=== PATIENT | male | born 1960 | race Caucasian/White ===

== ENCOUNTER → 2020-08-19 10:02 | Outpatient (BNVA) | payer MEDICAID, SELFPAY | PROVIDERS: PCP Nurse Practitioner Family; Visit Provider Surgery | DX: E11.621 Type 2 diabetes mellitus with foot ulcer (principal); L97.512 Non-pressure chronic ulcer of other part of right foot with fat layer exposed; I48.91 Unspecified atrial fibrillation; I10 Essential (primary) hypertension; F17.200 Nicotine dependence, unspecified, uncomplicated; L84 Corns and callosities; Z89.429 Acquired absence of other toe(s), unspecified side | CPT/HCPCS: 11042; 99213 ==

== ENCOUNTER 2020-08-30 09:27 | Outpatient (REF) | payer MEDICAID, SELFPAY ==
--- NOTE | 2020-08-30 09:29 | XR_ITS ---
EXAMINATION: XR FOOT, RIGHT CLINICAL INFORMATION: Type 2 diabetes with foot ulcer. COMPARISON: 04/13/2016 and MRI of 04/14/2016 TECHNIQUE: AP, lateral and oblique views of the right foot. FINDINGS: Patient is status post transmetatarsal amputations. There is noted to be some gas within the soft tissue along the lateral plantar aspect of the 5th metatarsal stump. On oblique view, there is question of some cortical erosion, and MRI would be of help in further evaluation of possibility of osteomyelitis. IMPRESSION: Ulceration about the lateral plantar aspect of the right transmetatarsal stump with question of some erosion of the cortex about the distal 5th metatarsal.
== END 2020-08-30 09:28 | disposition home or self-care (01) ==
LOC: HO.XRAY 09:27
PROVIDERS: PCP Nurse Practitioner Family; Visit Provider Surgery
DX: E10.621 Type 1 diabetes mellitus with foot ulcer (principal); L97.412 Non-pressure chronic ulcer of right heel and midfoot with fat layer exposed
CPT/HCPCS: 73630; 99213

== ENCOUNTER → 2020-09-23 10:58 | Outpatient (BNVA) | payer MEDICAID, SELFPAY | PROVIDERS: PCP Nurse Practitioner Family; Visit Provider Surgery | DX: E11.621 Type 2 diabetes mellitus with foot ulcer (principal); L97.412 Non-pressure chronic ulcer of right heel and midfoot with fat layer exposed; L84 Corns and callosities | CPT/HCPCS: 99212 ==

== ENCOUNTER → 2020-10-18 09:59 | Outpatient (BNVA) | payer MEDICAID, SELFPAY | PROVIDERS: PCP Nurse Practitioner Family; Referring Provider Nurse Practitioner Family; Visit Provider Surgery | DX: E10.621 Type 1 diabetes mellitus with foot ulcer (principal); L97.412 Non-pressure chronic ulcer of right heel and midfoot with fat layer exposed | CPT/HCPCS: 99212 ==

== ENCOUNTER → 2020-11-08 10:58 | Outpatient (BNVA) | payer MEDICAID, SELFPAY | PROVIDERS: PCP Nurse Practitioner Family; Visit Provider Surgery | DX: E11.621 Type 2 diabetes mellitus with foot ulcer (principal); L97.412 Non-pressure chronic ulcer of right heel and midfoot with fat layer exposed | CPT/HCPCS: 97597; 99212 ==

== ENCOUNTER → 2020-12-02 10:15 | Outpatient (BNVA) | payer MEDICAID, SELFPAY | PROVIDERS: PCP Nurse Practitioner Family; Visit Provider Surgery | DX: E10.621 Type 1 diabetes mellitus with foot ulcer (principal); L97.412 Non-pressure chronic ulcer of right heel and midfoot with fat layer exposed | CPT/HCPCS: 99212 ==

== ENCOUNTER 2020-12-29 07:02 | Day surgery (SDC) | payer MEDICAID, SELFPAY ==
[2020-12-09 12:06] VITALS: BMI 31.8
--- NOTE | 2020-12-12 13:31 | P.CONAN_ITS ---
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 scheduled for 12/29/20 [facility] Past Medical History Medical History (Updated 12/12/20 @ 13:33 by Liya Metz) Atrial fibrillation Diabetes Diabetic ulcer of right foot Hx of hepatitis Hypertension Family History Family History Father History of lung cancer Mother History of diabetes mellitus Surgical History Surgical History History of amputation of toe (~10/21/13) History of amputation of toe (~08/18/14) History of lipoma History of transmetatarsal amputation of foot (~09/2016) Social History Social History (Updated 12/09/20 @ 15:27 by Kamilah Gonzalez) Alcohol intake: never Smoking Status: Current every day smoker Cigarettes Per Day: 3 Years Smoked: 46 Smoked in Last 30 Days: Yes Substance Use Type: Crack/Cocaine and Former Substance User Last Used Substance Other:: 3-4 years ago tox screen positive cocaine 08/08/20-on methadone Advance Directives: No Advance Directives Information Provided: No Advance Directives on File: No Meds Allergies Allergy/AdvReac Type Severity Reaction Status Date / Time furosemide [Lasix] Allergy Intermediate Hives Verified 12/09/20 12:02 levofloxacin [Levaquin] Allergy Unknown Gastrointestinal Verified 12/09/20 12:02 Upset metronidazole [Flagyl] Allergy Unknown Unknown Verified 12/09/20 12:02 latex Allergy Rash Verified 12/09/20 12:02 contrast dye Allergy Unknown rash, hives Uncoded 12/09/20 12:02 Home Medications Medication Instructions Recorded Confirmed Type diltiazem HCl 120 mg capsule,24 120 mg PO QAM 08/11/20 12/09/20 History hr,extended release insulin glargine 100 unit/mL 40 unit SUBCUT BID 08/11/20 12/09/20 History subcutaneous solution methadone 5 mg tablet 80 mg PO DAILY tab 08/11/20 12/09/20 History amitriptyline 50 mg PO BEDTIME 12/09/20 12/09/20 History glipizide 2.5 mg PO DAILY 12/09/20 12/09/20 History Exam Exam Date and Time: December 12, 2020 1331 Height,Weight and Vital Signs: Height 6 ft Weight 106.594 kg Narrative Narrative: EKG 08/08/20 Normal sinus rhythm Moderate voltage criteria for LVH, may be normal variant Borderline ECG When compared with ECG of 04-JAN-2019 20:44, No significant change was found Assessment and Plan Assessment Anesthesia Assessment: Chart Reviewed
--- NOTE | 2020-12-28 09:10 | P.CONAN_ITS ---
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 PMFSH Active Problems Active Problems: All Active Problems (Updated 12/12/20 @ 13:33 by Liya Metz) Diabetic ulcer of right foot (Acute) Diabetes (Acute) Hypertension (Acute) Atrial fibrillation (Acute) Past Medical History Medical History Atrial fibrillation Diabetes Diabetic ulcer of right foot Hx of hepatitis Hypertension Family History Family History Father History of lung cancer Mother History of diabetes mellitus Surgical History Surgical History History of amputation of toe (~10/21/13) History of amputation of toe (~08/18/14) History of lipoma History of transmetatarsal amputation of foot (~09/2016) Social History Social History Alcohol intake: never Smoking Status: Current every day smoker Cigarettes Per Day: 3 Years Smoked: 46 Smoked in Last 30 Days: Yes Substance Use Type: Crack/Cocaine and Former Substance User Last Used Substance Other:: 3-4 years ago tox screen positive cocaine 08/08/20-on methadone Advance Directives: No Advance Directives Information Provided: No Advance Directives on File: No Meds Allergies Allergy/AdvReac Type Severity Reaction Status Date / Time furosemide [Lasix] Allergy Intermediate Hives Verified 12/09/20 12:02 levofloxacin [Levaquin] Allergy Unknown Gastrointestinal Verified 12/09/20 12:02 Upset metronidazole [Flagyl] Allergy Unknown Unknown Verified 12/09/20 12:02 latex Allergy Rash Verified 12/09/20 12:02 contrast dye Allergy Unknown rash, hives Uncoded 12/09/20 12:02 Home Medications Medication Instructions Recorded Confirmed Last Taken Type diltiazem HCl 120 mg capsule,24 120 mg PO QAM 08/11/20 12/09/20 12/29/20 History hr,extended release insulin glargine 100 unit/mL 40 unit SUBCUT BID 08/11/20 12/09/20 Unknown History subcutaneous solution methadone 5 mg tablet 80 mg PO DAILY tab 08/11/20 12/09/20 12/29/20 History amitriptyline 50 mg PO BEDTIME 12/09/20 12/09/20 Unknown History glipizide 2.5 mg PO DAILY 12/09/20 12/09/20 Unknown History Exam Exam Date and Time: December 28, 2020 0910 Height,Weight and Vital Signs: Height 6 ft Weight 106.594 kg Narrative Narrative: EKG 08/08/20 Normal sinus rhythm Moderate voltage criteria for LVH, may be normal variant Borderline ECG When compared with ECG of 04-JAN-2019 20:44, No significant change was found Assessment and Plan Assessment Anesthesia Assessment: Chart Reviewed Documented by User: Sami Rendon 12/29/20 09:04 [facility] Past Medical History Medical History Atrial fibrillation Diabetes Diabetic ulcer of right foot Hx of hepatitis Hypertension Family History Family History Father History of lung cancer Mother History of diabetes mellitus Family history of problems with anesthesia: No Surgical History Surgical History History of amputation of toe (~10/21/13) History of amputation of toe (~08/18/14) History of lipoma History of transmetatarsal amputation of foot (~09/2016) History of Problems with Anesthesia: No Social History Social History Alcohol intake: never Smoking Status: Current every day smoker Cigarettes Per Day: 3 Years Smoked: 46 Smoked in Last 30 Days: Yes Substance Use Type: Crack/Cocaine and Former Substance User Last Used Substance Other:: 3-4 years ago tox screen positive cocaine 08/08/20-on methadone Advance Directives: No Advance Directives Information Provided: No Advance Directives on File: No Meds Allergies Allergy/AdvReac Type Severity Reaction Status Date / Time furosemide [Lasix] Allergy Intermediate Hives Verified 12/09/20 12:02 levofloxacin [Levaquin] Allergy Unknown Gastrointestinal Verified 12/09/20 12:02 Upset metronidazole [Flagyl] Allergy Unknown Unknown Verified 12/09/20 12:02 latex Allergy Rash Verified 12/09/20 12:02 contrast dye Allergy Unknown rash, hives Uncoded 12/09/20 12:02 Home Medications Medication Instructions Recorded Confirmed Last Taken Type diltiazem HCl 120 mg capsule,24 120 mg PO QAM 08/11/20 12/09/20 12/29/20 History hr,extended release insulin glargine 100 unit/mL 40 unit SUBCUT BID 08/11/20 12/09/20 Unknown History subcutaneous solution methadone 5 mg tablet 80 mg PO DAILY tab 08/11/20 12/09/20 12/29/20 History amitriptyline 50 mg PO BEDTIME 12/09/20 12/09/20 Unknown History glipizide 2.5 mg PO DAILY 12/09/20 12/09/20 Unknown History Exam Airway Mallampati Class: II TM Dist: >3cm Neck ROM: Full Denture: Upper Partial: Lower Heart: ok Lungs: ok Assessment and Plan Assessment Anesthesia Assessment: Anesthesia Plan Discussed and Chart Reviewed (Urine pos for cocaine. High POC. Gave 15u Lispro. Pt. Counseled re risks. Also took 80mg methadone this morning.) Final Anesthetic Review NPO: Yes ASA Class: III Final Preanesthetic Review: No Changes in Pt Med Stat, Meds/Allgs Chart Reviewed, Consent Obtained/Reviewed and Anes Risks/Benef Reviewed Patient Risk: Intermediate Procedure Risk: Low Anesthetic Plan Anesthetic Plan: MAC: and Agree w/ Assess. and Plan Disposition: Standard PACU and Extended PACU
[2020-12-29 07:40] VITALS: BP 152/74; PULSE 84; RESP 16; TEMP 36.6; O2SAT 96
[2020-12-29 07:42] LABS: Glucose, Whole Blood 354 mg/dL (60-115)
--- NOTE | 2020-12-29 08:02 | PC.NURSE ---
Patient states that there are no toes on his right foot. patient is here for a revision. no limb disposal consent needed.
[2020-12-29 08:11] LABS: Amphetamine Screen Urine Not Detected (Not Detect); Barbiturates, Urine Not Detected (Not Detect); Benzodiazepines Screen Urine Not Detected (Not Detect); Cannabinoid Screen Urine Not Detected (Not Detect); Cocaine Screen Urine POSITIVE (Not Detect); Opiate Screen Urine Not Detected (Not Detect); Phencyclidine Screen Urine Not Detected (Not Detect)
[2020-12-29] MEDS: Insulin Lispro 100 UNIT/ML 3 ML VIAL 15 UNIT SUBCUT (08:13)
--- NOTE | 2020-12-29 08:16 | PC.NURSE ---
Patients blood sugar 354. Dr. Rendon notified. Lispro 15 units SQ given as ordered.
[2020-12-29 08:37] LABS: Anion Gap 10 (12-20); Blood Urea Nitrogen 16 mg/dL (9-16); Calcium 8.5 mg/dL (8.4-10.2); Carbon Dioxide 30 mmol/L (22-29); Chloride 95 mmol/L (96-108); Creatinine Clr Calc Pharmacy 110.2; Estimated Glomerular Filt Rate > 60; Glucose Fasting 368 mg/dL (60-99); Potassium 4.4 mmol/L (3.3-5.1); Sodium 131 mmol/L (135-145)
--- NOTE | 2020-12-29 08:42 | PC.NURSE ---
Anesthesia notified of Urine Tox positive for cocaine. Okay to proceed with surgery per Dr. Rendon and Dr. Haines
[2020-12-29] MEDS: Lactated Ringers 1,000 ML 100 ML IVCONT (08:46)
--- NOTE | 2020-12-29 08:51 | MHC.SHP ---
Pre-Procedural Eval Section A The patient is an INPATIENT: No Changes since office visit: Yes Patient answered all questions; No Cold of Flu in the past 2 weeks, No New Medical Problems and No Changes in Medication The History & Physical has been completed within 30 days and I have reviewed it.: Yes Section B Chief Complaint: Diabetic ulcer of right foot Allergies: Allergies Allergy/AdvReac Type Severity Reaction Status Date / Time furosemide [Lasix] Allergy Intermediate Hives Verified 12/09/20 12:02 levofloxacin [Levaquin] Allergy Unknown Gastrointestinal Verified 12/09/20 12:02 Upset metronidazole [Flagyl] Allergy Unknown Unknown Verified 12/09/20 12:02 latex Allergy Rash Verified 12/09/20 12:02 contrast dye Allergy Unknown rash, hives Uncoded 12/09/20 12:02 Plan Diagnosis/Plan: Unchanged I have reviewed the history and physical and performed a pertinent physical examination on my patient. No changes have occurred unless specified.
--- NOTE | 2020-12-29 08:58 | PC.NURSE ---
Anesthesia notified of Sodium of 131. Okay to proceed with surgery.
--- NOTE | 2020-12-29 10:09 | P.OP_ITS ---
Operative Note Operative Note Date of Service: 12/29/20 Narrative: Preoperative diagnosis: Diabetic foot ulcer, status post transmetatarsal amputation right foot Postoperative diagnosis: Same Procedure: Revision of transmetatarsal amputation right foot Surgeon: Maynor Cannon MD Chief Radiologic Technologist: Anesthesia: Mac Indications for procedure: 60-year-old male with a long history of diabetes mellitus and history of bilateral foot ulcer status post bilateral transmetatarsal amputations now presenting with a persistent ulcer of the right foot with possible osteomyelitis involving the 5th metatarsal. He presents today for revision of the right transmetatarsal amputation. Operative findings patient was found to have an area of abnormal 5th metatarsal at the distal portion found at the base of the ulcer were. The ulcer is located on the plantar surface and measured approximately 3 cm in diameter. This was excised in the underlying bone amputated. Specimen: Debrided skin and subcutaneous tissue and bone right foot ulcer; bone culture 5th metatarsal Estimated blood loss: 20 mL Complications: None Procedure details: Patient was brought to the OR placed in a supine position. Monitored anesthesia was provided. The patient's right foot was prepped with Betadine and draped in a sterile fashion. A surgical time-out was called and the consent confirmed. Patient received preoperative antibiotics. Local anesthesia consisting of 0.5% Sensorcaine mixed with 1% lidocaine plain was administered as a digital block to the 5th and 4th metatarsal. An elliptical incision to include the plantar ulcer over the 5th metatarsal was then created using a 15 blade. This was carried out through subcutaneous tissue up to the metatarsal. The skin and subcutaneous tissue was excised. Fifth metatarsal was then mobilized from the surrounding scar tissue. A periosteal elevator used to free the surrounding connective tissue. A bone cutter was then used to divide the 5th metatarsal in the proximal portion. Rongeur was then used to further debride bone fragments further proximally. A portion of this metatarsal was sent for bone culture. Wounds were then checked for hemostasis and then irrigated thoroughly with saline solution. Skin edges were then reapproximated using interrupted 2 0 Polysorb sutures. Skin was then closed using interrupted 2 0 nylon sutures in a mattress formation. Sterile dressings were then applied including Xeroform, fluff gauze, Kerlix, and Quentin bandage. The patient tolerated the procedure well was transferred to PACU in stable condition.
[2020-12-29 10:12] VITALS: BP 145/78; PULSE 76; RESP 18; TEMP 35.9; O2SAT 97
[2020-12-29 10:20] LABS: Glucose, Whole Blood 193 mg/dL (60-115)
[2020-12-29 10:27] VITALS: BP 143/81; PULSE 80; RESP 18; TEMP 36; O2SAT 98
== END 2020-12-29 10:50 | disposition home or self-care (01) ==
PROVIDERS: Nurse Practitioner; PCP Nurse Practitioner Family; Visit Provider Surgery
PROC: (CPT 28805; principal; 2020-12-29 09:10)
DX: E11.621 Type 2 diabetes mellitus with foot ulcer (principal); L97.414 Non-pressure chronic ulcer of right heel and midfoot with necrosis of bone; Z89.421 Acquired absence of other right toe(s); Z79.4 Long term (current) use of insulin
CPT/HCPCS: 28805; 11044; 36415; 80048; 80307; 82947; 87071; 87077; 87147; 87186; 87205; 88304; 88305; 88311; J0690; J2250; J3010

== ENCOUNTER → 2021-01-04 10:01 | Outpatient (BNVA) | payer MEDICAID, SELFPAY | PROVIDERS: PCP Nurse Practitioner Family; Visit Provider Surgery | DX: E10.621 Type 1 diabetes mellitus with foot ulcer (principal); L97.412 Non-pressure chronic ulcer of right heel and midfoot with fat layer exposed | CPT/HCPCS: 99212 ==

== ENCOUNTER → 2021-01-17 10:58 | Outpatient (BNVA) | payer MEDICAID, SELFPAY | PROVIDERS: PCP Nurse Practitioner Family; Visit Provider Surgery | DX: E10.621 Type 1 diabetes mellitus with foot ulcer (principal); L97.412 Non-pressure chronic ulcer of right heel and midfoot with fat layer exposed | CPT/HCPCS: 99212 ==

== ENCOUNTER → 2021-02-08 09:59 | Outpatient (BNVA) | payer MEDICAID, SELFPAY | PROVIDERS: PCP Nurse Practitioner Family; Visit Provider Surgery | DX: E10.621 Type 1 diabetes mellitus with foot ulcer (principal); L97.412 Non-pressure chronic ulcer of right heel and midfoot with fat layer exposed | CPT/HCPCS: 99212 ==

== ENCOUNTER → 2021-02-28 08:57 | Outpatient (BNVA) | payer MEDICAID, SELFPAY | PROVIDERS: PCP Nurse Practitioner Family; Visit Provider Surgery | DX: E10.621 Type 1 diabetes mellitus with foot ulcer (principal); L97.412 Non-pressure chronic ulcer of right heel and midfoot with fat layer exposed | CPT/HCPCS: 99212 ==

== ENCOUNTER → 2021-03-21 11:03 | Outpatient (BNVA) | payer MEDICAID, SELFPAY | PROVIDERS: PCP Nurse Practitioner Family; Visit Provider Surgery | DX: E10.621 Type 1 diabetes mellitus with foot ulcer (principal); L97.412 Non-pressure chronic ulcer of right heel and midfoot with fat layer exposed | CPT/HCPCS: 99212 ==

== ENCOUNTER → 2021-04-20 10:00 | Outpatient (BNVA) | payer MEDICAID, SELFPAY | PROVIDERS: PCP Nurse Practitioner Family; Visit Provider Surgery | DX: E10.621 Type 1 diabetes mellitus with foot ulcer (principal); L97.412 Non-pressure chronic ulcer of right heel and midfoot with fat layer exposed; L72.0 Epidermal cyst | CPT/HCPCS: 11055; 99212 ==

== ENCOUNTER → 2021-06-01 09:46 | Outpatient (BNVA) | payer MEDICAID, SELFPAY | PROVIDERS: PCP Nurse Practitioner Family; Referring Provider Nurse Practitioner Family; Visit Provider Surgery | DX: Z47.81 Encounter for orthopedic aftercare following surgical amputation (principal); E10.621 Type 1 diabetes mellitus with foot ulcer; L97.412 Non-pressure chronic ulcer of right heel and midfoot with fat layer exposed; L72.0 Epidermal cyst; L84 Corns and callosities | CPT/HCPCS: 11305; 99212 ==

== ENCOUNTER → 2021-07-04 10:23 | Outpatient (BNVA) | payer MEDICAID, SELFPAY | PROVIDERS: PCP Nurse Practitioner Family; Referring Provider Nurse Practitioner Family; Visit Provider Surgery | DX: Z47.81 Encounter for orthopedic aftercare following surgical amputation (principal); Z89.421 Acquired absence of other right toe(s); E10.621 Type 1 diabetes mellitus with foot ulcer; L97.412 Non-pressure chronic ulcer of right heel and midfoot with fat layer exposed; L84 Corns and callosities | CPT/HCPCS: 99212 ==

== ENCOUNTER → 2021-09-01 11:12 | Outpatient (BNVA) | payer MEDICAID, SELFPAY | PROVIDERS: PCP Nurse Practitioner Family; Visit Provider Surgery | DX: E11.621 Type 2 diabetes mellitus with foot ulcer (principal); L97.412 Non-pressure chronic ulcer of right heel and midfoot with fat layer exposed; E11.65 Type 2 diabetes mellitus with hyperglycemia; I10 Essential (primary) hypertension; F17.210 Nicotine dependence, cigarettes, uncomplicated; F14.10 Cocaine abuse, uncomplicated; Z89.421 Acquired absence of other right toe(s); Z88.8 Allergy status to other drugs, medicaments and biological substances; Z91.041 Radiographic dye allergy status; Z91.040 Latex allergy status | CPT/HCPCS: 99212 ==

== ENCOUNTER → 2021-10-24 09:57 | Outpatient (BNVA) | payer MEDICAID, SELFPAY | PROVIDERS: PCP Nurse Practitioner Family; Visit Provider Surgery | DX: Z47.81 Encounter for orthopedic aftercare following surgical amputation (principal); E10.621 Type 1 diabetes mellitus with foot ulcer; L97.412 Non-pressure chronic ulcer of right heel and midfoot with fat layer exposed; Z89.422 Acquired absence of other left toe(s); Z89.421 Acquired absence of other right toe(s) | CPT/HCPCS: 99212 ==

== ENCOUNTER → 2021-12-19 10:05 | Outpatient (BNVA) | payer MEDICAID, SELFPAY | PROVIDERS: PCP Nurse Practitioner Family; Visit Provider Physician Assistant Surgical | DX: E11.621 Type 2 diabetes mellitus with foot ulcer (principal); L97.412 Non-pressure chronic ulcer of right heel and midfoot with fat layer exposed; Z89.432 Acquired absence of left foot; Z89.431 Acquired absence of right foot | CPT/HCPCS: 99212 ==

== ENCOUNTER → 2022-03-08 11:00 | Outpatient (BNVA) | payer MEDICAID, SELFPAY | PROVIDERS: PCP Nurse Practitioner Family; Visit Provider Surgery | DX: E11.621 Type 2 diabetes mellitus with foot ulcer (principal); L97.412 Non-pressure chronic ulcer of right heel and midfoot with fat layer exposed; Z89.432 Acquired absence of left foot; Z89.431 Acquired absence of right foot | CPT/HCPCS: 97597; 99212 ==

== ENCOUNTER → 2022-04-17 12:57 | Outpatient (BNVA) | payer MEDICAID, SELFPAY | PROVIDERS: PCP Nurse Practitioner Family; Visit Provider Surgery | DX: E10.621 Type 1 diabetes mellitus with foot ulcer (principal); L97.412 Non-pressure chronic ulcer of right heel and midfoot with fat layer exposed; Z89.421 Acquired absence of other right toe(s); L84 Corns and callosities | CPT/HCPCS: 99212 ==

== ENCOUNTER → 2022-05-15 13:52 | Outpatient (BNVA) | payer MEDICAID, SELFPAY | PROVIDERS: PCP Nurse Practitioner Family; Visit Provider Surgery | DX: E10.621 Type 1 diabetes mellitus with foot ulcer (principal); L97.412 Non-pressure chronic ulcer of right heel and midfoot with fat layer exposed | CPT/HCPCS: 99212 ==

== ENCOUNTER 2022-06-06 14:35 | Outpatient (REF) | payer MEDICAID, SELFPAY ==
[2022-06-06 16:11] LABS: Blood Urea Nitrogen 19 mg/dL (9-16); Estimated Glomerular Filt Rate > 60
== END 2022-06-06 14:36 | disposition home or self-care (01) ==
LOC: HO.CT 14:35
PROVIDERS: PCP Nurse Practitioner Family; Visit Provider Surgery
DX: R60.0 Localized edema (principal); Z89.439 Acquired absence of unspecified foot
CPT/HCPCS: 36415; 82565; 84520

== ENCOUNTER → 2022-08-09 12:56 | Outpatient (BNVA) | payer MEDICAID, SELFPAY | PROVIDERS: PCP Nurse Practitioner Family; Visit Provider Surgery | DX: E10.621 Type 1 diabetes mellitus with foot ulcer (principal); L97.412 Non-pressure chronic ulcer of right heel and midfoot with fat layer exposed; Z89.421 Acquired absence of other right toe(s) | CPT/HCPCS: 99212 ==

== ENCOUNTER → 2022-11-16 11:00 | Outpatient (BNVA) | payer MEDICAID, SELFPAY | PROVIDERS: PCP Nurse Practitioner Family; Visit Provider Surgery | DX: E11.621 Type 2 diabetes mellitus with foot ulcer (principal); L97.412 Non-pressure chronic ulcer of right heel and midfoot with fat layer exposed; Z89.421 Acquired absence of other right toe(s); Z79.4 Long term (current) use of insulin | CPT/HCPCS: 99212 ==

== ENCOUNTER → 2023-02-07 09:57 | Outpatient (BNVA) | payer MEDICAID, SELFPAY | PROVIDERS: PCP Nurse Practitioner Family; Visit Provider Surgery | DX: E11.621 Type 2 diabetes mellitus with foot ulcer (principal); Z89.431 Acquired absence of right foot | CPT/HCPCS: 97597; 99212 ==

== ENCOUNTER 2023-03-03 16:44 | Inpatient (IN) | payer OTHER, SELFPAY ==
--- NOTE | ~2023-03-03 | XR_ITS ---
EXAMINATION: XR FOOT, RIGHT CLINICAL INFORMATION: Rule out osteomyelitis COMPARISON: Previous x-ray August 2020 TECHNIQUE: AP, lateral, and oblique views of the right foot. FINDINGS: There are postsurgical changes from transmetatarsal amputation. There is a large focus of air is seen in the plantar soft tissues adjacent to the base of the metatarsal bones and. There is a bone irregular and question bone loss seen in this region questionable for osteomyelitis. Some of these changes may be overestimated due to overlying soft tissue air. There are degenerative changes of the midfoot. There are small calcaneal spare spurs. No fracture or dislocation. XR/XR foot RT min 3V IMPRESSION: Large air collection in the plantar soft tissues and question adjacent osteomyelitis of the plantar foot.
[2023-03-03 17:17] VITALS: BP 166/72; PULSE 100; RESP 18; TEMP 37.7; O2SAT 96; BMI 26.9
--- NOTE | 2023-03-03 17:20 | ECG_ITS ---
Test Reason : PAIN Blood Pressure : / mmHG Vent. Rate : 090 BPM Atrial Rate : 090 BPM P-R Int : 160 ms QRS Dur : 080 ms QT Int : 352 ms P-R-T Axes : 037 018 036 degrees QTc Int : 430 ms Normal sinus rhythm Normal ECG When compared with ECG of 08-AUG-2020 10:50, No significant change was found Referred By: Gordon Medina Electronically Signed By:Rusty Simpson
--- NOTE | 2023-03-03 17:21 | ED_ITS ---
HPI - General Adult General Chief complaint: Wound/Laceration <Gordon Medina - Last Filed: 03/03/23 17:23> Stated complaint: diabetic/gangrene right foot <Gordon Medina - Last Filed: 03/03/23 17:23> Time Seen by Provider: 03/03/23 18:07 <Gordon Mdeina - Last Filed: 03/03/23 17:23> Source: patient <MORA Hanna - Last Filed: 03/04/23 00:20> Mode of arrival: ambulatory <MORA Hanna - Last Filed: 03/04/23 00:20> Limitations: no limitations <MORA Hanna Last Filed: 03/04/23 00:20> History of Present Illness HPI narrative: 62-year-old male with history of diabetes and RIght transmetatarsal amputation presents to ED for infected wounds of transmetatarsal right foot and also right leg redness and swelling. Patient states foul odor from wounds on transmetatarsal foot. Patient states no fever or chills patient denies any recent trauma <MORA Hanna - Last Filed: 03/04/23 00:20> Related Data Home medications: Home Medications Medication Instructions Recorded Confirmed diltiazem HCl 120 mg capsule,24 120 mg PO QAM 08/11/20 03/03/23 hr,extended release insulin glargine 100 unit/mL 40 unit subcut BID 08/11/20 03/03/23 subcutaneous solution (Lantus U-100 Insulin) amitriptyline 50 mg tablet 50 mg PO BEDTIME 12/09/20 03/03/23 blood sugar diagnostic (FreeStyle #10 ea 03/08/22 02/07/23 Lite Strips) insulin syringe-needle U-100 1 mL #10 ea 03/08/22 02/07/23 31 gauge x 5/16 (BD Insulin Syringe Ultra-Fine) methadone 5 mg tablet 85 mg PO DAILY 02/07/23 03/03/23 Previous Rx's Medication Instructions Recorded Off loading shoe #1 ea 12/28/20 bismuth tribrom-petrolatum,wh 1 X #200 ea 02/21/21 8 bandage (Xeroform Petrolatum Dressing) adhesive tape 2 X 10 yard #1 ea 06/16/21 gauze bandage 3 X 3 (Band-Aid #25 ea 06/16/21 Gauze Pads) gauze bandage 4 X 2.5 yard #30 ea 06/16/21 (Band-Aid Rolled Gauze) prosthetics (prosthetic) #1 ea 06/16/21 diphenhydramine HCl 25 mg capsule 50 mg PO ONCE sleep #2 caps 07/30/22 (Benadryl) hydrocortisone 2.5 % topical cream 1 appl topical BID PRN skin 08/09/22 irritation #20 grams sulfamethoxazole 800 1 tab PO BID #28 tabs 03/01/23 mg-trimethoprim 160 mg tablet (Bactrim DS) <Gordon Medina - Last Filed: 03/03/23 17:23> Allergies/adverse reactions: Allergies Allergy/AdvReac Type Severity Reaction Status Date / Time furosemide [Lasix] Allergy Intermediate Hives Verified 03/03/23 17:17 levofloxacin [Levaquin] Allergy Unknown Gastrointestinal Verified 03/03/23 17:17 Upset metronidazole [Flagyl] Allergy Unknown Unknown Verified 03/03/23 17:17 latex Allergy Rash Verified 03/03/23 17:17 contrast dye Allergy Unknown rash, hives Uncoded 02/07/23 10:17 <Gordon Medina - Last Filed: 03/03/23 17:23> Review of Systems Review of Systems: Infected foot <MORA Hanna - Last Filed: 03/04/23 00:20> Yes all other systems are reviewed and are negative <MORA Hanna - Last Filed: 03/04/23 00:20> [facility] Past Medical History Medical History: Medical History Atrial fibrillation Diabetes Diabetic ulcer of right foot Hx of hepatitis Hypertension <Gordon Medina - Last Filed: 03/03/23 17:23> Surgical History: Surgical History History of amputation of toe (~10/21/13) History of amputation of toe (~08/18/14) History of lipoma History of transmetatarsal amputation of foot (~09/2016) <Gordon Medina - Last Filed: 03/03/23 17:23> Family History Family History: Family History Father History of lung cancer Mother History of diabetes mellitus <Gordon Medina - Last Filed: 03/03/23 17:23> Social History Social History: Social History Alcohol intake: never Patient Tobacco Use Status: Never used Tobacco Cigarettes Per Day: 3 Years Smoked: 46 Smoked in Last 30 Days: Yes Substance Use Type: Crack/Cocaine and Former Substance User Advance Directives: No Advance Directives Information Provided: Yes <Gordon Medina - Last Filed: 03/03/23 17:23> Physical Exam ED Vital Signs: Vital Signs - 24 hr 03/03/23 17:17 03/03/23 20:13 03/03/23 22:40 Temperature 99.8 F 99.7 F Pulse Rate 100 88 87 Respiratory Rate 18 16 Blood Pressure 166/72 H 191/86 H 157/66 H Pulse Oximetry 96 97 98 Oxygen Delivery Method Room Air Room Air BMI result Body Mass Index 26.9 <Gordon Medina - Last Filed: 03/03/23 17:23> Vital Signs - 24 hr 03/03/23 17:17 03/03/23 20:13 03/03/23 22:40 Temperature 99.8 F 99.7 F Pulse Rate 100 88 87 Respiratory Rate 18 16 Blood Pressure 166/72 H 191/86 H 157/66 H Pulse Oximetry 96 97 98 Oxygen Delivery Method Room Air Room Air BMI result Body Mass Index 26.9 <MORA Hanna - Last Filed: 03/04/23 00:20> Const General: cooperative, healthy appearing, comfortable and no acute distress <MORA Hanna - Last Filed: 03/04/23 00:20> Orientation/consciousness: oriented to person, oriented to place, oriented to time and patient oriented x3 <MORA Hanna - Last Filed: 03/04/23 00:20> HENMT Head: Yes normal to inspection, Yes No palpable skull fracture present, Yes normocephalic, Yes atraumatic and No abrasion <MORA Hanna - Last Filed: 03/04/23 00:20> Eyes General: appearance normal, both eyes and all related structures <Timbo Robert, PA Hattie Last Filed: 03/04/23 00:20> Neck Neck: Yes normal visual inspection, Yes full ROM, Yes no lymphadenopathy, Yes no meningeal signs, Yes trachea midline, Yes supple, No anterior neck swelling and No tender <Timbo Robert, PA Hattie Last Filed: 03/04/23 00:20> Chest Chest palpation & inspection: normal inspection of the chest and normal palpation of entire chest wall <Timbo Robert, MORA Last Filed: 03/04/23 00:20> Resp Effort & Inspection: normal respiratory effort and able to speak in complete sentences <Timbo Roebrt, PA Hattie Filed: 03/04/23 00:20> Auscultation: clear to auscultation bilaterally <Timbo Robert, PA Filed: 03/04/23 00:20> Cardio Jugular venous distension: no JVD <Timbo Robert, PA Hattie Filed: 03/04/23 00:20> Heart sounds: S1 normal heart sound present and S2 normal heart sound present <Timbo Robert, MORA Filed: 03/04/23 00:20> GI Inspection: Yes normal to inspection and No abdominal wall ecchymosis <Timbo Robert, PA Hattie Filed: 03/04/23 00:20> Palpation (GI): Soft to palpation, not firm, nontender, no guarding and not rigid <Timbo Robert, PA Last Filed: 03/04/23 00:20> General: No CVA tenderness and Yes no CVA tenderness <Timbo Robert, MORA Last Filed: 03/04/23 00:20> Back/Spine/Pelvis Back: no CVA tenderness, No CVA tenderness and No back tenderness <Timbo Robert, PA Filed: 03/04/23 00:20> Skin General skin exam: no rashes or lesions noted and elasticity normal <Timbo Robert, PA Filed: 03/04/23 00:20> Neuro General: oriented to person, oriented to place, oriented to time, patient oriented x3, gait normal, tone normal, moves all extremities, Normal light touch and pain sensation, no meningeal signs, no focal motor deficits, CN's II-XI intact bilaterally and normal sensation to monofilament <MORA Hanna - Last Filed: 03/04/23 00:20> Extrem Other: Right leg cellulitis with infected transmetatarsal wound. <MORA Hanna - Last Filed: 03/04/23 00:20> General: Yes normal to inspection and Yes full ROM <MORA Hanna - Last Filed: 03/04/23 00:20> Psych Appearance: grossly normal, well kempt and not disheveled <MORA Hanna - Last Filed: 03/04/23 00:20> Course Course Course Narrative: 62-year-old male presents for evaluation of right foot wound. Patient has diabetes has a history of nonhealing wounds. He has erythema extending up to his right lower leg. Patient reports he has had discussions with Dr. Cannon about possible amputation of the foot. Plan for labs including blood cultures. ESR, CRP will also be added on. X-ray to evaluate for osteomyelitis. I added on coags and a type and screen in case the decision is made to have any amputation done. Vitals stable on arrival. <Gordon Medina - Last Filed: 03/03/23 17:23> Reevaluation(s) Reevaluation #1: Patient has a white count [id number]. Zosyn ordered. Lactic acid normal. X-ray shows possible osteomyelitis. Also states large air and plantar aspect of foot. Spoke with Dr. Cannon of surgery who performed the surgery and he was informed of patient's history, physical exam, and diagnostics. Was inpatient x- ray results and foot. Did not bleed with necrotizing fasciitis and states patient could be admitted to medicine floor <MORA Hanna - Last Filed: 03/04/23 00:20> Medications Administered Generic Name Dose Route Start Last Admin Trade Name Freq PRN Reason Stop Dose Admin Amitriptyline HCl 50 mg 03/03/23 22:45 03/03/23 23:00 Amitriptyline Hcl 50 Mg Tablet PO 50 mg BEDTIME LYNNETTE Administration Vancomycin HCl 2,000 mg in 500 mls @ 250 mls/hr 03/03/23 22:45 03/03/23 22:52 Vancomycin/Ns IV 03/04/23 00:44 250 mls/hr ONCE ONE Administration Insulin Glargine 30 unit 03/03/23 22:30 03/03/23 23:00 Insulin Glargine,Hum.Rec.Anlog 100 Unit/Ml 10 Ml Vial SUBCUT Not Given BID LYNNETTE Discontinued Medications Generic Name Dose Route Start Last Admin Trade Name Freq PRN Reason Stop Dose Admin Piperacillin Sod/Tazobactam 50 mls @ 100 mls/hr 03/03/23 18:11 03/03/23 20:35 Sod 3.375 gm/ Sodium Chloride IV 03/03/23 18:40 Infused ONCE ONE Infusion <Gordon Medina - Last Filed: 03/03/23 17:23> Medications Administered Generic Name Dose Route Start Last Admin Trade Name Freq PRN Reason Stop Dose Admin Amitriptyline HCl 50 mg 03/03/23 22:45 03/03/23 23:00 Amitriptyline Hcl 50 Mg Tablet PO 50 mg BEDTIME LYNNETTE Administration Vancomycin HCl 2,000 mg in 500 mls @ 250 mls/hr 03/03/23 22:45 03/03/23 22:52 Vancomycin/Ns IV 03/04/23 00:44 250 mls/hr ONCE ONE Administration Insulin Glargine 30 unit 03/03/23 22:30 03/03/23 23:00 Insulin Glargine,Hum.Rec.Anlog 100 Unit/Ml 10 Ml Vial SUBCUT Not Given BID LYNNETTE Discontinued Medications Generic Name Dose Route Start Last Admin Trade Name Freq PRN Reason Stop Dose Admin Piperacillin Sod/Tazobactam 50 mls @ 100 mls/hr 03/03/23 18:11 03/03/23 20:35 Sod 3.375 gm/ Sodium Chloride IV 03/03/23 18:40 Infused ONCE ONE Infusion <MORA Hanna - Last Filed: 03/04/23 00:20> Medical Decision Making Medical Decision Making MDM Narrative: 82-year-old male with infected transmetatarsal foot with right leg cell ulitis. X-ray shows foot osteomyelitis. Patient given antibiotics. White count 80455. Patient not in distress. Patient is not toxic appearing. <MORA Hanna - Last Filed: 03/04/23 00:20> Differential Diagnosis Differential Diagnoses: The differential diagnosis associated with the presentation includes (Osteomyelitis, cellulitis, sepsis,) <MORA Hanna - Last Filed: 03/04/23 00:20> Admission/Observation Consideration of admission/observation: Escalation of care including admission/observation considered <MORA Hanna - Last Filed: 03/04/23 00:20> Consult Healthcare Provider Management of the patient was discussed with: Pediatric Radiologist (Dr. Cannon of surgery who does not believe patient has necrotizing fascititis. ) <MORA Hanna - Last Filed: 03/04/23 00:20> Dr. Cannon recommends admit to medicine and MRI in the morning and will follow up as consult service <MORA Hanna - Last Filed: 03/04/23 00:20> Lab Data MDM Lab Attestation statement: I reviewed the patient's lab results. <MORA Hanna - Last Filed: 03/04/23 00:20> Result Diagrams: 03/03/23 17:41 03/03/23 17:41 <Gordon Medina - Last Filed: 03/03/23 17:23> Labs: Lab Results 03/03/23 03/03/23 03/03/23 Range/Units 17:41 17:41 17:41 WBC 20.6 H (4.8-10.8) X10*3/uL RBC 3.60 L (4.60-5.80) X10*6/uL Hgb 9.1 L (14.0-18.0) g/dl Hct 29.1 L (42.0-52.0) % MCV 80.8 (80.0-98.0) fL MCH 25.3 L (27.0-33.0) pg MCHC 31.3 (31.0-36.0) g/dl RDW 14.0 (11.0-16.0) % Plt Count 413 H (160-400) X10*3/uL MPV 9.9 (9.4-12.4) fL Immature Gran % (Auto) 0.7 H (0.0-0.4) % Neut % (Auto) 79.6 H (45-73) % Lymph % (Auto) 10.1 L (20-40) % Mcculloch % (Auto) 7.4 (2-11) % Eos % (Auto) 2.0 (0-4) % Baso % (Auto) 0.2 (0-2) % Lymph # (Auto) 2.1 (1.2-4.9) X10*3/uL Mcculloch # (Auto) 1.5 H (0.1-1.2) X10*3/uL Eos # (Auto) 0.4 (0.0-0.4) X10*3/uL Baso # (Auto) 0.0 (0.0-0.2) X10*3/uL Abs Immat Gran (auto) 0.15 H (0.00-0.03) X10*3/uL Absolute Neuts (auto) 16.4 H (2.0-8.3) x10*3/uL Absolute Nucleated RBC 0.000 (0.0-0.012) X10*3/uL Nucleated RBC % (auto) 0.0 (0.0-0.2) /100WBC Smear Tech's Comments VERIFIED ESR 108 H (0-15) MM/HR PT 16.8 H (10.0-13.1) SEC INR 1.4 H (0.9-1.1) APTT 35.0 (26.0-36.4) SEC Sodium (135-145) mmol/L Potassium (3.3-5.1) mmol/L Chloride (96-108) mmol/L Carbon Dioxide (22-29) mmol/L Anion Gap (12-20) BUN (9-16) mg/dL Creatinine (0.5-1.4) mg/dL Estim Creat Clear Calc Estimated GFR Random Glucose (60-115) mg/dL Lactic Acid (0.5-2.0) mmol/L Calcium (8.4-10.2) mg/dL Total Bilirubin (0.0-1.0) mg/dL AST (5-37) U/L ALT (0-40) U/L Alkaline Phosphatase (39-117) U/L C-Reactive Protein (< or = 0.50) mg/dL Total Protein (6.5-8.0) g/dL Albumin (3.5-5.0) g/dL Lipase (8-78) U/L COVID-19 (CANDACE) (Negative) COVID-19 Clin Com Blood Type Antibody Screen 03/03/23 03/03/23 03/03/23 Range/Units 17:41 17:41 17:41 WBC (4.8-10.8) X10*3/uL RBC (4.60-5.80) X10*6/uL Hgb (14.0-18.0) g/dl Hct (42.0-52.0) % MCV (80.0-98.0) fL MCH (27.0-33.0) pg MCHC (31.0-36.0) g/dl RDW (11.0-16.0) % Plt Count (160-400) X10*3/uL MPV (9.4-12.4) fL Immature Gran % (Auto) (0.0-0.4) % Neut % (Auto) (45-73) % Lymph % (Auto) (20-40) % Mcculloch % (Auto) (2-11) % Eos % (Auto) (0-4) % Baso % (Auto) (0-2) % Lymph # (Auto) (1.2-4.9) X10*3/uL Mcculloch # (Auto) (0.1-1.2) X10*3/uL Eos # (Auto) (0.0-0.4) X10*3/uL Baso # (Auto) (0.0-0.2) X10*3/uL Abs Immat Gran (auto) (0.00-0.03) X10*3/uL Absolute Neuts (auto) (2.0-8.3) x10*3/uL Absolute Nucleated RBC (0.0-0.012) X10*3/uL Nucleated RBC % (auto) (0.0-0.2) /100WBC Smear Tech's Comments ESR (0-15) MM/HR PT (10.0-13.1) SEC INR (0.9-1.1) APTT (26.0-36.4) SEC Sodium 133 L (135-145) mmol/L Potassium 5.0 (3.3-5.1) mmol/L Chloride 98 (96-108) mmol/L Carbon Dioxide 27 (22-29) mmol/L Anion Gap 13 (12-20) BUN 17 H (9-16) mg/dL Creatinine 1.07 (0.5-1.4) mg/dL Estim Creat Clear Calc 84.2 Estimated GFR > 60 Random Glucose 146 H (60-115) mg/dL Lactic Acid (0.5-2.0) mmol/L Calcium 8.7 (8.4-10.2) mg/dL Total Bilirubin 0.3 (0.0-1.0) mg/dL AST 16 (5-37) U/L ALT 17 (0-40) U/L Alkaline Phosphatase 92 (39-117) U/L C-Reactive Protein 19.47 H (< or = 0.50) mg/dL Total Protein 7.7 (6.5-8.0) g/dL Albumin 3.1 L (3.5-5.0) g/dL Lipase 6 L (8-78) U/L COVID-19 (CANDACE) Negative (Negative) COVID-19 Clin Com See Note Blood Type O Positive Antibody Screen NEGATIVE 03/03/23 Range/Units 17:41 WBC (4.8-10.8) X10*3/uL RBC (4.60-5.80) X10*6/uL Hgb (14.0-18.0) g/dl Hct (42.0-52.0) % MCV (80.0-98.0) fL MCH (27.0-33.0) pg MCHC (31.0-36.0) g/dl RDW (11.0-16.0) % Plt Count (160-400) X10*3/uL MPV (9.4-12.4) fL Immature Gran % (Auto) (0.0-0.4) % Neut % (Auto) (45-73) % Lymph % (Auto) (20-40) % Mcculloch % (Auto) (2-11) % Eos % (Auto) (0-4) % Baso % (Auto) (0-2) % Lymph # (Auto) (1.2-4.9) X10*3/uL Mcculloch # (Auto) (0.1-1.2) X10*3/uL Eos # (Auto) (0.0-0.4) X10*3/uL Baso # (Auto) (0.0-0.2) X10*3/uL Abs Immat Gran (auto) (0.00-0.03) X10*3/uL Absolute Neuts (auto) (2.0-8.3) x10*3/uL Absolute Nucleated RBC (0.0-0.012) X10*3/uL Nucleated RBC % (auto) (0.0-0.2) /100WBC Smear Tech's Comments ESR (0-15) MM/HR PT (10.0-13.1) SEC INR (0.9-1.1) APTT (26.0-36.4) SEC Sodium (135-145) mmol/L Potassium (3.3-5.1) mmol/L Chloride (96-108) mmol/L Carbon Dioxide (22-29) mmol/L Anion Gap (12-20) BUN (9-16) mg/dL Creatinine (0.5-1.4) mg/dL Estim Creat Clear Calc Estimated GFR Random Glucose (60-115) mg/dL Lactic Acid 1.6 (0.5-2.0) mmol/L Calcium (8.4-10.2) mg/dL Total Bilirubin (0.0-1.0) mg/dL AST (5-37) U/L ALT (0-40) U/L Alkaline Phosphatase (39-117) U/L C-Reactive Protein (< or = 0.50) mg/dL Total Protein (6.5-8.0) g/dL Albumin (3.5-5.0) g/dL Lipase (8-78) U/L COVID-19 (CANDACE) (Negative) COVID-19 Clin Com Blood Type Antibody Screen <Gordon Medina - Last Filed: 03/03/23 17:23> Lab Results 03/03/23 03/03/23 03/03/23 Range/Units 17:41 17:41 17:41 WBC 20.6 H (4.8-10.8) X10*3/uL RBC 3.60 L (4.60-5.80) X10*6/uL Hgb 9.1 L (14.0-18.0) g/dl Hct 29.1 L (42.0-52.0) % MCV 80.8 (80.0-98.0) fL MCH 25.3 L (27.0-33.0) pg MCHC 31.3 (31.0-36.0) g/dl RDW 14.0 (11.0-16.0) % Plt Count 413 H (160-400) X10*3/uL MPV 9.9 (9.4-12.4) fL Immature Gran % (Auto) 0.7 H (0.0-0.4) % Neut % (Auto) 79.6 H (45-73) % Lymph % (Auto) 10.1 L (20-40) % Mcculloch % (Auto) 7.4 (2-11) % Eos % (Auto) 2.0 (0-4) % Baso % (Auto) 0.2 (0-2) % Lymph # (Auto) 2.1 (1.2-4.9) X10*3/uL Mcculloch # (Auto) 1.5 H (0.1-1.2) X10*3/uL Eos # (Auto) 0.4 (0.0-0.4) X10*3/uL Baso # (Auto) 0.0 (0.0-0.2) X10*3/uL Abs Immat Gran (auto) 0.15 H (0.00-0.03) X10*3/uL Absolute Neuts (auto) 16.4 H (2.0-8.3) x10*3/uL Absolute Nucleated RBC 0.000 (0.0-0.012) X10*3/uL Nucleated RBC % (auto) 0.0 (0.0-0.2) /100WBC Smear Tech's Comments VERIFIED ESR 108 H (0-15) MM/HR PT 16.8 H (10.0-13.1) SEC INR 1.4 H (0.9-1.1) APTT 35.0 (26.0-36.4) SEC Sodium (135-145) mmol/L Potassium (3.3-5.1) mmol/L Chloride (96-108) mmol/L Carbon Dioxide (22-29) mmol/L Anion Gap (12-20) BUN (9-16) mg/dL Creatinine (0.5-1.4) mg/dL Estim Creat Clear Calc Estimated GFR Random Glucose (60-115) mg/dL Lactic Acid (0.5-2.0) mmol/L Calcium (8.4-10.2) mg/dL Total Bilirubin (0.0-1.0) mg/dL AST (5-37) U/L ALT (0-40) U/L Alkaline Phosphatase (39-117) U/L C-Reactive Protein (< or = 0.50) mg/dL Total Protein (6.5-8.0) g/dL Albumin (3.5-5.0) g/dL Lipase (8-78) U/L COVID-19 (CANDACE) (Negative) COVID-19 Clin Com Blood Type Antibody Screen 03/03/23 03/03/23 03/03/23 Range/Units 17:41 17:41 17:41 WBC (4.8-10.8) X10*3/uL RBC (4.60-5.80) X10*6/uL Hgb (14.0-18.0) g/dl Hct (42.0-52.0) % MCV (80.0-98.0) fL MCH (27.0-33.0) pg MCHC (31.0-36.0) g/dl RDW (11.0-16.0) % Plt Count (160-400) X10*3/uL MPV (9.4-12.4) fL Immature Gran % (Auto) (0.0-0.4) % Neut % (Auto) (45-73) % Lymph % (Auto) (20-40) % Mcculloch % (Auto) (2-11) % Eos % (Auto) (0-4) % Baso % (Auto) (0-2) % Lymph # (Auto) (1.2-4.9) X10*3/uL Mcculloch # (Auto) (0.1-1.2) X10*3/uL Eos # (Auto) (0.0-0.4) X10*3/uL Baso # (Auto) (0.0-0.2) X10*3/uL Abs Immat Gran (auto) (0.00-0.03) X10*3/uL Absolute Neuts (auto) (2.0-8.3) x10*3/uL Absolute Nucleated RBC (0.0-0.012) X10*3/uL Nucleated RBC % (auto) (0.0-0.2) /100WBC Smear Tech's Comments ESR (0-15) MM/HR PT (10.0-13.1) SEC INR (0.9-1.1) APTT (26.0-36.4) SEC Sodium 133 L (135-145) mmol/L Potassium 5.0 (3.3-5.1) mmol/L Chloride 98 (96-108) mmol/L Carbon Dioxide 27 (22-29) mmol/L Anion Gap 13 (12-20) BUN 17 H (9-16) mg/dL Creatinine 1.07 (0.5-1.4) mg/dL Estim Creat Clear Calc 84.2 Estimated GFR > 60 Random Glucose 146 H (60-115) mg/dL Lactic Acid (0.5-2.0) mmol/L Calcium 8.7 (8.4-10.2) mg/dL Total Bilirubin 0.3 (0.0-1.0) mg/dL AST 16 (5-37) U/L ALT 17 (0-40) U/L Alkaline Phosphatase 92 (39-117) U/L C-Reactive Protein 19.47 H (< or = 0.50) mg/dL Total Protein 7.7 (6.5-8.0) g/dL Albumin 3.1 L (3.5-5.0) g/dL Lipase 6 L (8-78) U/L COVID-19 (CANDACE) Negative (Negative) COVID-19 Clin Com See Note Blood Type O Positive Antibody Screen NEGATIVE 03/03/23 Range/Units 17:41 WBC (4.8-10.8) X10*3/uL RBC (4.60-5.80) X10*6/uL Hgb (14.0-18.0) g/dl Hct (42.0-52.0) % MCV (80.0-98.0) fL MCH (27.0-33.0) pg MCHC (31.0-36.0) g/dl RDW (11.0-16.0) % Plt Count (160-400) X10*3/uL MPV (9.4-12.4) fL Immature Gran % (Auto) (0.0-0.4) % Neut % (Auto) (45-73) % Lymph % (Auto) (20-40) % Mcculloch % (Auto) (2-11) % Eos % (Auto) (0-4) % Baso % (Auto) (0-2) % Lymph # (Auto) (1.2-4.9) X10*3/uL Mcculloch # (Auto) (0.1-1.2) X10*3/uL Eos # (Auto) (0.0-0.4) X10*3/uL Baso # (Auto) (0.0-0.2) X10*3/uL Abs Immat Gran (auto) (0.00-0.03) X10*3/uL Absolute Neuts (auto) (2.0-8.3) x10*3/uL Absolute Nucleated RBC (0.0-0.012) X10*3/uL Nucleated RBC % (auto) (0.0-0.2) /100WBC Smear Tech's Comments ESR (0-15) MM/HR PT (10.0-13.1) SEC INR (0.9-1.1) APTT (26.0-36.4) SEC Sodium (135-145) mmol/L Potassium (3.3-5.1) mmol/L Chloride (96-108) mmol/L Carbon Dioxide (22-29) mmol/L Anion Gap (12-20) BUN (9-16) mg/dL Creatinine (0.5-1.4) mg/dL Estim Creat Clear Calc Estimated GFR Random Glucose (60-115) mg/dL Lactic Acid 1.6 (0.5-2.0) mmol/L Calcium (8.4-10.2) mg/dL Total Bilirubin (0.0-1.0) mg/dL AST (5-37) U/L ALT (0-40) U/L Alkaline Phosphatase (39-117) U/L C-Reactive Protein (< or = 0.50) mg/dL Total Protein (6.5-8.0) g/dL Albumin (3.5-5.0) g/dL Lipase (8-78) U/L COVID-19 (CANDACE) (Negative) COVID-19 Clin Com Blood Type Antibody Screen <MORA Hanna - Last Filed: 03/04/23 00:20> Independent Interpretation I performed an independent interpretation of an: Plain X-Ray <MORA Hanna - Last Filed: 03/04/23 00:20> Radiology Impression Discussion of test interpretation with radiology: I have reviewed the radiologist's reading. <MORA Hanna - Last Filed: 03/04/23 00:20> External Record Review External record reviewed: Inpatient record <MORA Hanna - Last Filed: 03/04/23 00:20> Discharge Plan Discharge Clinical Impression: Osteomyelitis <Gordon Medina - Last Filed: 03/03/23 17:23> Patient Disposition: Admitted As Inpatient <Gordon Medina - Last Filed: 03/03/23 17:23>
[2023-03-03 17:52] LABS: Basophils Percent Auto 0.2 % (0-2); Eosinophils Absolute Auto 0.4 X10*3/uL (0.0-0.4); Hematocrit 29.1 % (42.0-52.0); Hemoglobin 9.1 g/dl (14.0-18.0); Imm Gran Abs Auto 0.15 X10*3/uL (0.00-0.03); Imm Gran Pct Auto 0.7 % (0.0-0.4); Lymphocytes Absolute Auto 2.1 X10*3/uL (1.2-4.9); Lymphocytes Percent Auto 10.1 % (20-40); MANUAL DIFF FLAG SCAN; Mean Corpuscular HGB Conc 31.3 g/dl (31.0-36.0); Mean Corpuscular Hemoglobin 25.3 pg (27.0-33.0); Mean Corpuscular Volume 80.8 fL (80.0-98.0); Mean Platelet Volume 9.9 fL (9.4-12.4); Monocytes Absolute Auto 1.5 X10*3/uL (0.1-1.2); Monocytes Percent Auto 7.4 % (2-11); Neutrophils Absolute Auto 16.4 x10*3/uL (2.0-8.3); Neutrophils Percent Auto 79.6 % (45-73); Platelet Count 413 X10*3/uL (160-400); SCAN SMEAR FLAG 1; White Blood Count 20.6 X10*3/uL (4.8-10.8)
[2023-03-03 18:04] LABS: INTERNATIONAL NORM RATIO 1.4 (0.9-1.1); Prothrombin Time 16.8 SEC (10.0-13.1)
[2023-03-03 18:05] LABS: COVID-19 Test Negative (Negative); IDNOW Serial# BCCEAD1C
[2023-03-03 18:06] LABS: Lactic Acid 1.6 mmol/L (0.5-2.0)
[2023-03-03 18:09] LABS: Alanine Aminotransferase 17 U/L (0-40); Albumin Level 3.1 g/dL (3.5-5.0); Alkaline Phosphatase 92 U/L (39-117); Anion Gap 13 (12-20); Aspartate Amino Transferase 16 U/L (5-37); Bilirubin Total 0.3 mg/dL (0.0-1.0); Blood Urea Nitrogen 17 mg/dL (9-16); C Reactive Protein 19.47 mg/dL (< or = 0.50); Calcium 8.7 mg/dL (8.4-10.2); Carbon Dioxide 27 mmol/L (22-29); Chloride 98 mmol/L (96-108); Creatinine Clr Calc Pharmacy 84.2; Estimated Glomerular Filt Rate > 60; Glucose Random 146 mg/dL (60-115); Lipase 6 U/L (8-78); Sodium 133 mmol/L (135-145); Total Protein 7.7 g/dL (6.5-8.0)
[2023-03-03 18:12] LABS: SLIDE REVIEW VERIFIED
[2023-03-03 18:26] LABS: Erythrocyte Sedimentation Rate 108 MM/HR (0-15)
[2023-03-03] MEDS: Piperacillin Sodium/Tazobactam 3.375 GM in 0.9 % Sodium Chloride 50 ML IV (18:39)
--- NOTE | 2023-03-03 18:45 | PC.NURSE ---
Patient arrived ambulatory with R foot complaints, pt noted to have previous toe/partial foot amputations. He reports he is homeless and on his feet a lot during the day. IV placed, Antx given per order.
[2023-03-03 20:13] VITALS: BP 191/86; PULSE 88; TEMP 37.6; O2SAT 97
--- NOTE | 2023-03-03 20:54 | PC.NURSE ---
I resumed care of the pt at 1900. Pt is resting quietly in bed at this time, A&Ox4, GCS 15, with cool, dry skin. Pt did ambulate to the bathroom without assistance. Pt was steady on his feet. Pt is reporting 6/10 pain in the right foot. No other complaints at this time.
--- NOTE | 2023-03-03 22:25 | PM.IMHP ---
History of Present Illness Date of Service: 03/03/23 Chief Complaint: malodorous DFU 62M PMH DM, htn, mood disorder, paroxysmal vs lone afib (not on AC), hcv (treated 2009), opiate dependence, presented with malodorous right DFU. patient has history of bilateral TMAs for DFU/OM, reporting several days of worsening odor coming from right heel DFU. denies fever, chills chest pain, sob. in ED found to have leukocytosis, elevated CRP, xray with Large air collection in the plantar soft tissues and question adjacent osteomyelitis of the plantar foot. Review of Systems Review of Systems: Yes all other systems are reviewed and are negative [facility] Medical History Atrial fibrillation Diabetes Diabetic ulcer of right foot Hx of hepatitis Hypertension Family History Father History of lung cancer Mother History of diabetes mellitus Surgical History History of amputation of toe (~10/21/13) History of amputation of toe (~08/18/14) History of lipoma History of transmetatarsal amputation of foot (~09/2016) Social History Alcohol intake: never Cigarettes Per Day: 3 Years Smoked: 46 Smoked in Last 30 Days: Yes Substance Use Type: Crack/Cocaine and Former Substance User Advance Directives: No Advance Directives Information Provided: Yes Meds Allergies Allergy/AdvReac Type Severity Reaction Status Date / Time furosemide [Lasix] Allergy Intermediate Hives Verified 03/03/23 17:17 levofloxacin [Levaquin] Allergy Unknown Gastrointestinal Verified 03/03/23 17:17 Upset metronidazole [Flagyl] Allergy Unknown Unknown Verified 03/03/23 17:17 latex Allergy Rash Verified 03/03/23 17:17 contrast dye Allergy Unknown rash, hives Uncoded 02/07/23 10:17 Active Medications: Current Medications Vancomycin HCl 1,000 mg/ (Sodium Chloride) 270 mls @ 270 mls/hr IV Q12H [facility] Piperacillin Sod/Tazobactam (Sod 3.375 gm/ Sodium Chloride) 50 mls @ 100 mls/hr IV Q8H [facility] Pharmacy Consult (Consult Rx Perform Med Rec) 1 each MISCELLANE ONCE PRN PRN Reason: Consult order Pharmacy Consult (Consult Rx Vancomycin Dosing) 1 each MISCELLANE DAILY PRN PRN Reason: Consult order Home Medications Medication Instructions Recorded Confirmed Last Taken Type diltiazem HCl 120 mg capsule,24 120 mg PO QAM 08/11/20 02/07/23 12/29/20 History hr,extended release insulin glargine 100 unit/mL 40 unit subcut BID 08/11/20 02/07/23 Unknown History subcutaneous solution (Lantus U-100 Insulin) amitriptyline 50 mg tablet 50 mg PO BEDTIME 12/09/20 02/07/23 Unknown History blood sugar diagnostic (FreeStyle #10 ea 03/08/22 02/07/23 Unknown History Lite Strips) insulin syringe-needle U-100 1 mL #10 ea 03/08/22 02/07/23 Unknown History 31 gauge x 5/16 (BD Insulin Syringe Ultra-Fine) methadone 5 mg tablet 85 mg PO DAILY 02/07/23 02/07/23 Unknown History Physical Exam Vital Signs and Narrative: Vital Signs: Last Vital Signs Temp 99.7 F 03/03/23 20:13 Pulse 88 03/03/23 20:13 Resp 18 03/03/23 17:17 BP 191/86 H 03/03/23 20:13 Pulse Ox 97 03/03/23 20:13 O2 Del Method Room Air 03/03/23 20:13 BMI result Body Mass Index 26.9 General: AO X 3, no acute distress Resp: CTA bilateral, no accessory muscles used CVS: S1,S2,RRR GI: soft, non tender, non distended Neuro: motor grossly intact, alert Psych: appropriate affect, appropriate insight rle erythema malodorous right heel dfu, (see pics from ED note) Results Labs 03/03/23 17:41 03/03/23 17:41 Labs: Laboratory Results - last 24 hr 03/03/23 03/03/23 03/03/23 17:41 17:41 17:41 MCV 80.8 MCH 25.3 L MCHC 31.3 RDW 14.0 Plt Count 413 H MPV 9.9 Immature Gran % (Auto) 0.7 H Neut % (Auto) 79.6 H Lymph % (Auto) 10.1 L [place] % (Auto) 7.4 Eos % (Auto) 2.0 Baso % (Auto) 0.2 Lymph # (Auto) 2.1 [place] # (Auto) 1.5 H Eos # (Auto) 0.4 Baso # (Auto) 0.0 Abs Immat Gran (auto) 0.15 H Absolute Neuts (auto) 16.4 H Absolute Nucleated RBC 0.000 Nucleated RBC % (auto) 0.0 Smear Tech's Comments VERIFIED ESR 108 H PT 16.8 H INR 1.4 H APTT 35.0 Anion Gap Estim Creat Clear Calc Estimated GFR Random Glucose Lactic Acid Calcium Total Bilirubin AST ALT Alkaline Phosphatase C-Reactive Protein Total Protein Albumin Lipase COVID-19 ([facility]) COVID-19 Clin Com Blood Type Antibody Screen 03/03/23 03/03/23 03/03/23 17:41 17:41 17:41 MCV MCH MCHC RDW Plt Count MPV Immature Gran % (Auto) Neut % (Auto) Lymph % (Auto) [place] % (Auto) Eos % (Auto) Baso % (Auto) Lymph # (Auto) [place] # (Auto) Eos # (Auto) Baso # (Auto) Abs Immat Gran (auto) Absolute Neuts (auto) Absolute Nucleated RBC Nucleated RBC % (auto) Smear Tech's Comments ESR PT INR APTT Anion Gap 13 Estim Creat Clear Calc 84.2 Estimated GFR > 60 Random Glucose 146 H Lactic Acid Calcium 8.7 Total Bilirubin 0.3 AST 16 ALT 17 Alkaline Phosphatase 92 C-Reactive Protein 19.47 H Total Protein 7.7 Albumin 3.1 L Lipase 6 L COVID-19 ([facility]) Negative COVID-19 Clin Com See Note Blood Type O Positive Antibody Screen NEGATIVE 03/03/23 17:41 MCV MCH MCHC RDW Plt Count MPV Immature Gran % (Auto) Neut % (Auto) Lymph % (Auto) [place] % (Auto) Eos % (Auto) Baso % (Auto) Lymph # (Auto) [place] # (Auto) Eos # (Auto) Baso # (Auto) Abs Immat Gran (auto) Absolute Neuts (auto) Absolute Nucleated RBC Nucleated RBC % (auto) Smear Tech's Comments ESR PT INR APTT Anion Gap Estim Creat Clear Calc Estimated GFR Random Glucose Lactic Acid 1.6 Calcium Total Bilirubin AST ALT Alkaline Phosphatase C-Reactive Protein Total Protein Albumin Lipase COVID-19 ([facility]) COVID-19 Clin Com Blood Type Antibody Screen Imaging Radiologist's Impressions: Impressions Foot X-Ray 03/03/23 18:10 IMPRESSION: Large air collection in the plantar soft tissues and question adjacent osteomyelitis of the plantar foot. Assessment and Plan (1) History of transmetatarsal amputation of foot: Status: Acute Plan 62M PMH DM, htn, mood disorder, paroxysmal vs lone afib (not on AC), hcv (treated 2009), opiate dependence, presented with malodorous right DFU right foot ulcer due to diabetes with osteomyelitis complicated by cellulitis iv vanc, zosyn, follow up cultures surgery eval DM basal bolus insulin HTN, uncontrolled cardizem afib, ?paroxysmal vs lone in sinus not on ac at home continue cardizem mood disorder amitryptilline opiate dependence methadone when verified dvt prophylaxis - lovenox full code patient with significant deep infection requiring iv abx and likely surgery, therefore, expected to require atleast 2 midnights inpatient Time Spent With Patient Time: Total time managing care of this patient today ____ minutes. Quality Stroke Does the patient have a stroke diagnosis?: No VTE Prior VTE?: No VTE Risk Level:: Medical - moderate - high VTE Device Contraindication: Treatment Not Indicated VTE Drug Contraindication: N/A - Med Ordered
[2023-03-03 22:40] VITALS: BP 157/66; PULSE 87; RESP 16; O2SAT 98
[2023-03-03] MEDS: vancomycin/NS 2,000 MG/500 ML PLAST..BAG 250 MG IV (22:52)
[2023-03-03 23:00] LABS: Glucose, Whole Blood 78 mg/dL (60-115)
[2023-03-03] MEDS: Amitriptyline HCl 50 MG TABLET PO (23:00)
[2023-03-03 23:40] LABS: Glucose, Whole Blood 107 mg/dL (60-115)
[2023-03-04] VITALS (11 sets, daily range): BP systolic 132–173; BP diastolic 61–84; PULSE 62–89; RESP 14–18; TEMP 36.1–37.1; O2SAT 94–98; BMI 31.6
[2023-03-04] MEDS: 0.9 % Sodium Chloride Flush 3 ML SYRINGE IVFLUSH ×2 (01:11→07:54)
[2023-03-04] MEDS: Piperacillin Sodium/Tazobactam 3.375 GM in 0.9 % Sodium Chloride 50 ML IV ×4 (01:12→18:18)
--- NOTE | 2023-03-04 02:35 | PC.NURSE ---
Pt asleep in bed at this time.
[2023-03-04 06:32] LABS: Hematocrit 29.2 % (42.0-52.0); Hemoglobin 9.2 g/dl (14.0-18.0); Mean Corpuscular HGB Conc 31.5 g/dl (31.0-36.0); Mean Corpuscular Hemoglobin 25.4 pg (27.0-33.0); Mean Corpuscular Volume 80.7 fL (80.0-98.0); Mean Platelet Volume 10.1 fL (9.4-12.4); Platelet Count 419 X10*3/uL (160-400); Red Blood Count 3.62 X10*6/uL (4.60-5.80); Red Cell Distribution Width 14.2 % (11.0-16.0); White Blood Count 25.2 X10*3/uL (4.8-10.8)
[2023-03-04 06:56] LABS: Anion Gap 12 (12-20); Blood Urea Nitrogen 15 mg/dL (9-16); Calcium 8.7 mg/dL (8.4-10.2); Carbon Dioxide 27 mmol/L (22-29); Chloride 100 mmol/L (96-108); Creatinine Clr Calc Pharmacy 75.7; Estimated Glomerular Filt Rate > 60; Glucose Fasting 117 mg/dL (60-99); Potassium 5.4 mmol/L (3.3-5.1); Sodium 134 mmol/L (135-145)
[2023-03-04 07:28] LABS: Glucose, Whole Blood 129 mg/dL (60-115)
[2023-03-04] MEDS: Enoxaparin Sodium 40 MG/0.4 ML SYRINGE SUBCUT (07:54)
[2023-03-04] MEDS: dilTIAZem HCL CD 120 MG CAP.ER.DEG PO (07:55)
--- NOTE | 2023-03-04 08:06 | P.CONGS_ITS ---
History of Present Illness Consult details Consult date: 03/04/23 Narrative: 62-year-old male patient with history of diabetes, hypertension, atrial fibrillation and known history of peripheral vascular disease, s/p bilateral transmetatarsal amputation presenting with a nonhealing wound of the right foot. Patient now has increased ulceration of the right foot with subcutaneous air with erythema extending up the calf. He also reports increased pain associated with the ambulation. He subsequently presented to the emergency department for further evaluation. X-ray of the foot revealed air within the forefoot. Patient's WBC was markedly elevated as well. He is admitted to the hospitalist service for further management. Surgical consultation was requested for further management of the nonhealing ulcer. Review of Systems Review of Systems: Yes all other systems are reviewed and are negative Musculoskeletal: Musculoskeletal: Reports as per HPI Integumentary/Breasts: Skin/Breast: Reports skin ulcer PMFSH Past Medical History Medical History Atrial fibrillation Diabetes Diabetic ulcer of right foot Hx of hepatitis Hypertension Family History Family History Father History of lung cancer Mother History of diabetes mellitus Surgical History Surgical History History of amputation of toe (~10/21/13) History of amputation of toe (~08/18/14) History of lipoma History of transmetatarsal amputation of foot (~09/2016) Social History Social History Alcohol intake: never Patient Tobacco Use Status: Never used Tobacco Cigarettes Per Day: 3 Years Smoked: 46 Smoked in Last 30 Days: Yes Substance Use Type: Crack/Cocaine and Former Substance User Advance Directives: No Advance Directives Information Provided: Yes Meds Allergies Allergy/AdvReac Type Severity Reaction Status Date / Time furosemide [Lasix] Allergy Intermediate Hives Verified 03/03/23 17:17 levofloxacin [Levaquin] Allergy Unknown Gastrointestinal Verified 03/03/23 17:17 Upset metronidazole [Flagyl] Allergy Unknown Unknown Verified 03/03/23 17:17 latex Allergy Rash Verified 03/03/23 17:17 contrast dye Allergy Unknown rash, hives Uncoded 02/07/23 10:17 Active Medications: Current Medications Amitriptyline HCl (Amitriptyline Hcl 50 Mg Tablet) 50 mg PO BEDTIME [facility] Last Admin: 03/03/23 23:00 Dose: 50 mg Diltiazem HCl (Diltiazem Hcl Cd 120 Mg Cap.Er.Deg) 120 mg PO DAILY [facility]; Protocol Last Admin: 03/04/23 07:55 Dose: 120 mg Diphenhydramine HCl (Diphenhydramine Hcl 25 Mg Capsule) 50 mg PO ONCE [facility] Enoxaparin Sodium (Enoxaparin Sodium 40 Mg/0.4 Ml Syringe) 40 mg SUBCUT Q24H [facility] Last Admin: 03/04/23 07:54 Dose: 40 mg Glucose (Glucose Gel 15 Gm Gel..Gram.) 15 gm PO Q15M PRN; Protocol PRN Reason: per Hypoglycemia Standing Ord. Vancomycin HCl 1,000 mg/ (Sodium Chloride) 270 mls @ 270 mls/hr IV Q12H [facility] Piperacillin Sod/Tazobactam (Sod 3.375 gm/ Sodium Chloride) 50 mls @ 100 mls/hr IV Q6H [facility] Last Infusion: 03/04/23 07:55 Dose: Infused Dextrose (D10) 250 mls @ 750 mls/hr IV Q15M PRN; Protocol PRN Reason: per Hypoglycemia Standing Ord. Insulin Glargine (Insulin Glargine,Hum.Rec.Anlog 100 Unit/Ml 10 Ml Vial) 30 unit SUBCUT BID [facility] Last Admin: 03/03/23 23:00 Dose: Not Given Insulin Human Lispro (Insulin Lispro 100 Unit/Ml 3 Ml Vial) 0 unit SUBCUT QIDACHS [facility]; Protocol Last Admin: 03/04/23 07:28 Dose: Not Given Methadone HCl (Methadone Hcl 5 Mg Tablet) 85 mg PO DAILY [facility] Pharmacy Consult (Consult Rx Perform Med Rec) 1 each MISCELLANE ONCE PRN PRN Reason: Consult order Pharmacy Consult (Consult Rx Vancomycin Dosing) 1 each MISCELLANE DAILY PRN PRN Reason: Consult order Sodium Chloride (0.9 % Sodium Chloride Flush 3 Ml Syringe) 3 ml IVFLUSH QSHIFT [facility] Last Admin: 03/04/23 07:54 Dose: 3 ml Home Medications Medication Instructions Recorded Confirmed Last Taken Type diltiazem HCl 120 mg capsule,24 120 mg PO QA 1003/03/23 12/29/20 History hr,extended release insulin glargine 100 unit/mL 40 unit subcut BID 08/11/20 03/03/23 Unknown History subcutaneous solution (Lantus U-100 Insulin) amitriptyline 50 mg tablet 50 mg PO BEDTIME 12/09/20 03/03/23 Unknown History blood sugar diagnostic (FreeStyle #10 ea 03/08/22 02/07/23 Unknown History Lite Strips) insulin syringe-needle U-100 1 mL #10 ea 03/08/22 02/07/23 Unknown History 31 gauge x 5/16 (BD Insulin Syringe Ultra-Fine) methadone 5 mg tablet 85 mg PO DAILY 02/07/23 03/03/23 Unknown History Physical Exam Vital Signs: Vital Signs: Last Vital Signs Temp 98.5 F 03/04/23 07:21 Pulse 83 03/04/23 07:21 Resp 14 03/04/23 07:21 BP 155/68 H 03/04/23 07:21 Pulse Ox 94 03/04/23 07:21 O2 Del Method Room Air 03/04/23 07:21 BMI result Body Mass Index 26.9 Const: General: no acute distress and well developed Nutritional Appearance: well nourished Orientation/consciousness: patient oriented x3 Limitations: no limitations Resp: Effort & Inspection: normal respiratory effort, no audible wheezes, no cough and no respiratory distress GI: Inspection: Yes normal to inspection Skin: Other: As noted in extremity below Neuro: General: patient oriented x3 Extrem: Other: Marked erythema involving the mid calf extending down towards ankle and foot. Two large ulcers located on the heel and over the metatarsal head laterally.. Necrotic skin noted at the base of the heel ulcer. Findings are suggestive of ascending abscess to mid calf level. Upper/lower leg/hip images: 1. Erythema and edema Results Labs 03/04/23 06:09 03/04/23 06:09 Labs: Abnormal lab results 03/03/23 03/03/23 03/03/23 Range/Units 17:41 17:41 17:41 WBC 20.6 H (4.8-10.8) X10*3/uL RBC 3.60 L (4.60-5.80) X10*6/uL Hgb 9.1 L (14.0-18.0) g/dl Hct 29.1 L (42.0-52.0) % MCH 25.3 L (27.0-33.0) pg Plt Count 413 H (160-400) X10*3/uL Immature Gran % (Auto) 0.7 H (0.0-0.4) % Neut % (Auto) 79.6 H (45-73) % Lymph % (Auto) 10.1 L (20-40) % [place] # (Auto) 1.5 H (0.1-1.2) X10*3/uL Abs Immat Gran (auto) 0.15 H (0.00-0.03) X10*3/uL Absolute Neuts (auto) 16.4 H (2.0-8.3) x10*3/uL ESR 108 H (0-15) MM/HR PT 16.8 H (10.0-13.1) SEC INR 1.4 H (0.9-1.1) Sodium (135-145) mmol/L Potassium (3.3-5.1) mmol/L BUN (9-16) mg/dL POC Glucose (60-115) mg/dL Random Glucose (60-115) mg/dL Fasting Glucose (60-99) mg/dL C-Reactive Protein (< or = 0.50) mg/dL Albumin (3.5-5.0) g/dL Lipase (8-78) U/L 03/03/23 03/04/23 03/04/23 Range/Units 17:41 06:09 06:09 WBC 25.2 H (4.8-10.8) X10*3/uL RBC 3.62 L (4.60-5.80) X10*6/uL Hgb 9.2 L (14.0-18.0) g/dl Hct 29.2 L (42.0-52.0) % MCH 25.4 L (27.0-33.0) pg Plt Count 419 H (160-400) X10*3/uL Immature Gran % (Auto) (0.0-0.4) % Neut % (Auto) (45-73) % Lymph % (Auto) (20-40) % [place] # (Auto) (0.1-1.2) X10*3/uL Abs Immat Gran (auto) (0.00-0.03) X10*3/uL Absolute Neuts (auto) (2.0-8.3) x10*3/uL ESR (0-15) MM/HR PT (10.0-13.1) SEC INR (0.9-1.1) Sodium 133 L 134 L (135-145) mmol/L Potassium 5.4 H (3.3-5.1) mmol/L BUN 17 H (9-16) mg/dL POC Glucose (60-115) mg/dL Random Glucose 146 H (60-115) mg/dL Fasting Glucose 117 H (60-99) mg/dL C-Reactive Protein 19.47 H (< or = 0.50) mg/dL Albumin 3.1 L (3.5-5.0) g/dL Lipase 6 L (8-78) U/L 03/04/23 Range/Units 07:19 WBC (4.8-10.8) X10*3/uL RBC (4.60-5.80) X10*6/uL Hgb (14.0-18.0) g/dl Hct (42.0-52.0) % MCH (27.0-33.0) pg Plt Count (160-400) X10*3/uL Immature Gran % (Auto) (0.0-0.4) % Neut % (Auto) (45-73) % Lymph % (Auto) (20-40) % [place] # (Auto) (0.1-1.2) X10*3/uL Abs Immat Gran (auto) (0.00-0.03) X10*3/uL Absolute Neuts (auto) (2.0-8.3) x10*3/uL ESR (0-15) MM/HR PT (10.0-13.1) SEC INR (0.9-1.1) Sodium (135-145) mmol/L Potassium (3.3-5.1) mmol/L BUN (9-16) mg/dL POC Glucose 129 H (60-115) mg/dL Random Glucose (60-115) mg/dL Fasting Glucose (60-99) mg/dL C-Reactive Protein (< or = 0.50) mg/dL Albumin (3.5-5.0) g/dL Lipase (8-78) U/L Short CBC 03/03/23 03/04/23 Range/Units 17:41 06:09 WBC 20.6 H 25.2 H (4.8-10.8) X10*3/uL Hgb 9.1 L 9.2 L (14.0-18.0) g/dl Hct 29.1 L 29.2 L (42.0-52.0) % Plt Count 413 H 419 H (160-400) X10*3/uL BMP 03/03/23 03/04/23 17:41 06:09 Sodium 133 L 134 L Potassium 5.0 5.4 H Chloride 98 100 Carbon Dioxide 27 27 BUN 17 H 15 Creatinine 1.07 1.19 Calcium 8.7 8.7 Liver Function 03/03/23 Range/Units 17:41 Total Bilirubin 0.3 (0.0-1.0) mg/dL AST 16 (5-37) U/L ALT 17 (0-40) U/L Alkaline Phosphatase 92 (39-117) U/L Albumin 3.1 L (3.5-5.0) g/dL All other labs normal. Assessment and Plan (1) Osteomyelitis: Status: Acute (2) History of transmetatarsal amputation of foot: Status: Acute (3) Diabetic ulcer of right foot: Qualifiers: Diabetic foot ulcer location: midfoot Diabetes mellitus type: type 1 Non-pressure ulcer stage: with fat layer exposed Qualified Code(s): E10.621 - Type 1 diabetes mellitus with foot ulcer; L97.412 - Non-pressure chronic ulcer of right heel and midfoot with fat layer exposed Status: Acute Plan Patient with the worsening cellulitis of the right leg with 2 large ulcerations in the right foot. Findings are suggestive of an ongoing abscess extending up the leg with osteomyelitis. I reviewed the options in detail with Mr. Zapata. I recommended a right below-knee amputation. After discussion of the p rocedure, risks and alternatives, he consents to the right below-knee amputation and he has been added onto the operative schedule for today. Time Spent With Patient Time: Total time managing care of this patient today ____ minutes. Procedures Date of Service Date of Service: 03/04/23
--- NOTE | 2023-03-04 08:43 | PHA.MEDREC ---
Pharmacy Consult ? Medication Reconciliation Pharmacy has completed/reviewed the medication reconciliation.
[2023-03-04] MEDS: Insulin Glargine,Hum.rec.anlog 100 UNIT/ML 10 ML VIAL 30 UNIT SUBCUT ×2 (10:13→20:42)
[2023-03-04] MEDS: Sodium Zirconium Cyclosilicate 10 GM POWD.PACK PO (10:15)
[2023-03-04 10:19] LABS: Glucose, Whole Blood 197 mg/dL (60-115)
[2023-03-04] MEDS: vancomycin HCL 1,000 MG in 0.9 % Sodium Chloride 250 ML 270 MG IV ×2 (11:10→22:28)
[2023-03-04 11:52] LABS: Glucose, Whole Blood 165 mg/dL (60-115)
--- NOTE | 2023-03-04 11:55 | PC.NURSE ---
Refusing High Fall Risk Interventions
--- NOTE | 2023-03-04 13:02 | MHC.CM.PN ---
pt reports staying at his mothers when necessary [address] [place] [address] when he is dcd he will go there ,will need [facility] ,pt dc mihaela home he will be seen by recovery team [trent soler dc
[2023-03-04 13:49] LABS: Glucose, Whole Blood 119 mg/dL (60-115)
--- NOTE | 2023-03-04 15:00 | HE.PHANOTE ---
Addendum entered by Clyde Russo RPh 03/04/23 15:11: GOT A SECOND VERIFICATION FORM FROM 1235, 85 MG, GIVEN 14 BOTTLES UNTIL THE [facility] Original Note: RE METHADONE PATIENT GETS METHADONE FROM [facility], 85MG. PATIENT TOLD MED REC PHARMACIST HE GETS TAKE HOME BOTTLES. RECEIVED FORM FROM RN AROUND 1030 AM, DID NOT HAVE LAST DATE OR TIME. RN WAS TOLD BY DAY TEAM THAT IT WAS NEEDED. WHEN I CAME ON AT 230, I CALLED CLINIC AND THEY WERE CLOSED. PATIENT HAS BEEN HERE SINCE 1700 YESTERDAY. [facility]
--- NOTE | 2023-03-04 15:43 | P.PNIM_ITS ---
Subjective Subjective Date of Service: 03/04/23 Review of Systems follow-up right foot ulcer with osteomyelitis Plan for BKA today Physical Exam Vital Signs: Vital Signs: Last Vital Signs Temp 98.5 F 03/04/23 13:50 Pulse 77 03/04/23 13:50 Resp 16 03/04/23 13:50 BP 139/62 03/04/23 13:50 Pulse Ox 97 03/04/23 13:50 O2 Del Method Room Air 03/04/23 13:50 BMI result Body Mass Index 31.6 Appearing in no acute distress lung sounds are clear to auscultation heart regular rate rhythm, clear S1, S2 positive bowel sounds, abdomen is soft, nontender neuro patient is alert x3, no focal deficits Objective Data Active Medications Amitriptyline HCl (Amitriptyline Hcl 50 Mg Tablet) 50 mg PO BEDTIME [facility] Last Admin: 03/03/23 23:00 Dose: 50 mg Documented By: ARACELI Diltiazem HCl (Diltiazem Hcl Cd 120 Mg Cap.Er.Deg) 120 mg PO DAILY [facility]; Protocol Last Admin: 03/04/23 07:55 Dose: 120 mg Documented By: SWATHI Diphenhydramine HCl (Diphenhydramine Hcl 25 Mg Capsule) 50 mg PO ONCE [facility] Enoxaparin Sodium (Enoxaparin Sodium 40 Mg/0.4 Ml Syringe) 40 mg SUBCUT Q24H [facility] Last Admin: 03/04/23 07:54 Dose: 40 mg Documented By: SWATHI Glucose (Glucose Gel 15 Gm Gel..Gram.) 15 gm PO Q15M PRN; Protocol PRN Reason: per Hypoglycemia Standing Ord. Vancomycin HCl 1,000 mg/ (Sodium Chloride) 270 mls @ 270 mls/hr IV Q12H [facility] Last Infusion: 03/04/23 12:19 Dose: 0 mls/hr Documented By: AMELIA Dextrose (D10) 250 mls @ 750 mls/hr IV Q15M PRN; Protocol PRN Reason: per Hypoglycemia Standing Ord. Piperacillin Sod/Tazobactam (Sod 3.375 gm/ Sodium Chloride) 50 mls @ 100 mls/hr IV Q6H [facility] Insulin Glargine (Insulin Glargine,Hum.Rec.Anlog 100 Unit/Ml 10 Ml Vial) 30 unit SUBCUT BID [facility] Last Admin: 03/04/23 10:13 Dose: 30 unit Documented By: YFN Insulin Human Lispro (Insulin Lispro 100 Unit/Ml 3 Ml Vial) 0 unit SUBCUT QIDACHS [facility]; Protocol Last Admin: 03/04/23 12:01 Dose: Not Given Documented By: FLORENCE Non-Admin Reason: NPO Methadone HCl (Methadone Hcl 20 Mg/2 Ml Oral.Conc) 85 mg PO DAILY [facility] Pharmacy Consult (Consult Rx Perform Med Rec) 1 each MISCELLANE ONCE PRN PRN Reason: Consult order Pharmacy Consult (Consult Rx Vancomycin Dosing) 1 each MISCELLANE DAILY PRN PRN Reason: Consult order Sodium Chloride (0.9 % Sodium Chloride Flush 3 Ml Syringe) 3 ml IVFLUSH QSHIFT [facility] Last Admin: 03/04/23 07:54 Dose: 3 ml Documented By: SWATHI Labs 03/04/23 06:09 03/04/23 06:09 Labs: Laboratory Results - last 24 hr 03/03/23 03/03/23 03/03/23 17:41 17:41 17:41 MCV 80.8 MCH 25.3 L MCHC 31.3 RDW 14.0 Plt Count 413 H MPV 9.9 Immature Gran % (Auto) 0.7 H Neut % (Auto) 79.6 H Lymph % (Auto) 10.1 L [place] % (Auto) 7.4 Eos % (Auto) 2.0 Baso % (Auto) 0.2 Lymph # (Auto) 2.1 [place] # (Auto) 1.5 H Eos # (Auto) 0.4 Baso # (Auto) 0.0 Abs Immat Gran (auto) 0.15 H Absolute Neuts (auto) 16.4 H Absolute Nucleated RBC 0.000 Nucleated RBC % (auto) 0.0 Smear Tech's Comments VERIFIED ESR 108 H PT 16.8 H INR 1.4 H APTT 35.0 Anion Gap Estim Creat Clear Calc Estimated GFR POC Glucose Random Glucose Fasting Glucose Lactic Acid Calcium Total Bilirubin AST ALT Alkaline Phosphatase C-Reactive Protein Total Protein Albumin Lipase COVID-19 (C[facility]ACE) COVID-19 Clin Com Blood Type Antibody Screen 03/03/23 03/03/23 03/03/23 17:41 17:41 17:41 MCV MCH MCHC RDW Plt Count MPV Immature Gran % (Auto) Neut % (Auto) Lymph % (Auto) [place] % (Auto) Eos % (Auto) Baso % (Auto) Lymph # (Auto) [place] # (Auto) Eos # (Auto) Baso # (Auto) Abs Immat Gran (auto) Absolute Neuts (auto) Absolute Nucleated RBC Nucleated RBC % (auto) Smear Tech's Comments ESR PT INR APTT Anion Gap 13 Estim Creat Clear Calc 84.2 Estimated GFR > 60 POC Glucose Random Glucose 146 H Fasting Glucose Lactic Acid Calcium 8.7 Total Bilirubin 0.3 AST 16 ALT 17 Alkaline Phosphatase 92 C-Reactive Protein 19.47 H Total Protein 7.7 Albumin 3.1 L Lipase 6 L COVID-19 (CANDACE) Negative COVID-Onyvax Com See Note Blood Type O Positive Antibody Screen NEGATIVE 03/03/23 03/03/23 03/03/23 17:41 22:49 23:37 MCV MCH MCHC RDW Plt Count MPV Immature Gran % (Auto) Neut % (Auto) Lymph % (Auto) [place] % (Auto) Eos % (Auto) Baso % (Auto) Lymph # (Auto) [place] # (Auto) Eos # (Auto) Baso # (Auto) Abs Immat Gran (auto) Absolute Neuts (auto) Absolute Nucleated RBC Nucleated RBC % (auto) Smear Tech's Comments ESR PT INR APTT Anion Gap Estim Creat Clear Calc Estimated GFR POC Glucose 78 107 Random Glucose Fasting Glucose Lactic Acid 1.6 Calcium Total Bilirubin AST ALT Alkaline Phosphatase C-Reactive Protein Total Protein Albumin Lipase COVID-19 (CANDACE) COVID-19 [facility] Com Blood Type Antibody Screen 03/04/23 03/04/23 03/04/23 06:09 06:09 07:19 MCV 80.7 MCH 25.4 L MCHC 31.5 RDW 14.2 Plt Count 419 H MPV 10.1 Immature Gran % (Auto) Neut % (Auto) Lymph % (Auto) [place] % (Auto) Eos % (Auto) Baso % (Auto) Lymph # (Auto) [place] # (Auto) Eos # (Auto) Baso # (Auto) Abs Immat Gran (auto) Absolute Neuts (auto) Absolute Nucleated RBC 0.000 Nucleated RBC % (auto) 0.0 Smear Tech's Comments ESR PT INR APTT Anion Gap 12 Estim Creat Clear Calc 75.7 Estimated GFR > 60 POC Glucose 129 H Random Glucose Fasting Glucose 117 H Lactic Acid Calcium 8.7 Total Bilirubin AST ALT Alkaline Phosphatase C-Reactive Protein Total Protein Albumin Lipase COVID-19 ([facility]ACE) COVID-19 Clin Com Blood Type Antibody Screen 03/04/23 03/04/23 03/04/23 10:13 11:47 13:40 MCV MCH MCHC RDW Plt Count MPV Immature Gran % (Auto) Neut % (Auto) Lymph % (Auto) [place] % (Auto) Eos % (Auto) Baso % (Auto) Lymph # (Auto) [place] # (Auto) Eos # (Auto) Baso # (Auto) Abs Immat Gran (auto) Absolute Neuts (auto) Absolute Nucleated RBC Nucleated RBC % (auto) Smear Tech's Comments ESR PT INR APTT Anion Gap Estim Creat Clear Calc Estimated GFR POC Glucose 197 H 165 H 119 H Random Glucose Fasting Glucose Lactic Acid Calcium Total Bilirubin AST ALT Alkaline Phosphatase C-Reactive Protein Total Protein Albumin Lipase COVID-19 ([facility]ACE) COVID-19 Clin Com Blood Type Antibody Screen Assessment and Plan (1) Osteomyelitis: Status: Acute Plan 62M PMH DM, htn, mood disorder, paroxysmal vs lone afib (not on AC), hcv (treated 2009), opiate dependence, presented with malodorous right DFU Right foot ulcer due to diabetes with osteomyelitis complicated by cellulitis increasing WBC on IV vanc, zosyn for now, follow up cultures Plan for BKA DM ss, ada diet post op HTN, uncontrolled cardizem afib, ?paroxysmal vs lone in sinus not on ac at home continue cardizem mood disorder amitryptilline opiate dependence methadone when verified dvt prophylaxis - lovenox attending Dr. Hayes full code continue hospital stay for patient with significant deep infection requiring iv abx and plan for BKA Time Spent With Patient Time: Total time managing care of this patient today ____ minutes. Quality Stroke Does the patient have a stroke diagnosis?: No VTE Prior VTE?: No VTE Risk Level:: Medical - moderate - high VTE Device Contraindication: Treatment Not Indicated VTE Drug Contraindication: N/A - Med Ordered
--- NOTE | 2023-03-04 15:45 | W.PM.OPN ---
Operative Note Operative Note Date of Service: 03/04/23 Narrative: Preoperative diagnosis: Gangrene, osteomyelitis right foot Postoperative diagnosis: same Procedure: right transmetatarsal amputation Surgeon: Maynor Cannon MD Shaper Operator: Katelyn Comer PA-C Anesthesia: regional block plus MAC Indications for procedure: 62-year-old male patient with history of diabetic foot ulcers status post bilateral transmetatarsal amputation now with nonhealing ulcers with abscess of the right foot with markedly elevated WBC. x-ray findings were consistent with osteomyelitis. He presents now for below-knee amputation right side. Operative findings: Abscess right foot at the heel with necrotic ulcer and edema, cellulitis extending up the calf. Skin is very edematous up to mid calf. Specimen: Right below-knee amputation Estimated blood loss: 100 mL Complications: none Procedure details: patient was brought the OR placed in a supine position. After administering a regional block and monitored anesthesia, the patient's right leg was prepped with Betadine and draped in a sterile fashion. A surgical time-out was called the consent confirmed. Patient received preoperative Continuous antibiotics. A tourniquet was applied, and after exsanguination of the right leg placed at 250 mmHg. A fishmouth type incision was then created with a scalpel using a 10 blade. Dissection was continued through calf muscles down to tibia and fibula. Inferior flap was created longer than the superior flap. Dissection was continued down to bone and a periosteal elevator used to elevate the periosteum more proximal. Same procedure was used for the tibia. Vessels including posterior tibial, anterior tibial and peroneal vessels were individually ligated and divided.. Bone saw was then used to divide the tibia and fibula proximal to the skin incision. The remaining muscle tissue was then divided using electrocautery. Hemostasis was assured using free ties of 2-0 Polysorb and electrocautery. Wounds were then irrigated with saline solution. The muscular fascia was then closed over the tibia stump using interrupted 2 0 Polysorb sutures. Dermis was then reapproximated using interrupted 3-0 Polysorb sutures. Prior to completion the tourniquet was turned off after 56 minutes. Skin was then closed using skin carleen. A compressive dressing including fluff gauze, ABD, Kerlix and Quentin bandage was then applied. The patient tolerated the procedure well. Sponge, instrument, and needle counts reported as correct. The patient was transferred to PACU in stable condition.
--- NOTE | 2023-03-04 16:02 | P.CONAN_ITS ---
HPI - Anesthesia Eval Consult details Narrative: right bka PMFSH Active Problems Active Problems: All Active Problems (Updated 03/04/23 @ 00:20 by MORA Hanna) Epidermal inclusion cyst (Acute) Osteomyelitis (Acute) History of transmetatarsal amputation of foot (Acute ~09/2016) Diabetic ulcer of right foot (Acute) Diabetes (Acute) Hypertension (Acute) Atrial fibrillation (Acute) Past Medical History Medical History (Updated 03/04/23 @ 00:20 by MORA Hanna) Atrial fibrillation Diabetes Diabetic ulcer of right foot Hx of hepatitis Hypertension Family History Family History Father History of lung cancer Mother History of diabetes mellitus Family history of problems with anesthesia: No Surgical History Surgical History (Updated 03/04/23 @ 13:35 by Zara Alcocer RN) History of amputation of toe (~10/21/13) History of amputation of toe (~08/18/14) History of lipoma History of transmetatarsal amputation of foot (~09/2016) History of transmetatarsal amputation of right foot History of Problems with Anesthesia: No Social History Social History Household Members: Other Housing: Other Housing Other:: patient is homeless, couch surfing with friends/family Do you presently have visiting nurse or other home services: Yes Alcohol intake: never Patient Tobacco Use Status: Current everyday Tobacco user Tobacco use type: Cigarette Cigarettes Per Day: 10 Years Smoked: 46 Second Hand Smoke Exposure: Yes Substance Use Type: Crack/Cocaine and Former Substance User service: No Meds Allergies Allergy/AdvReac Type Severity Reaction Status Date / Time furosemide [Lasix] Allergy Intermediate Hives Verified 03/03/23 17:17 levofloxacin [Levaquin] Allergy Unknown Gastrointestinal Verified 03/03/23 17:17 Upset metronidazole [Flagyl] Allergy Unknown Unknown Verified 03/03/23 17:17 latex Allergy Rash Verified 03/03/23 17:17 contrast dye Allergy Unknown rash, hives Uncoded 02/07/23 10:17 Active Medications: Current Medications Amitriptyline HCl (Amitriptyline Hcl 50 Mg Tablet) 50 mg PO BEDTIME [facility] Last Admin: 03/03/23 23:00 Dose: 50 mg Diltiazem HCl (Diltiazem Hcl Cd 120 Mg Cap.Er.Deg) 120 mg PO DAILY [facility]; Protocol Last Admin: 03/04/23 07:55 Dose: 120 mg Diphenhydramine HCl (Diphenhydramine Hcl 25 Mg Capsule) 50 mg PO ONCE [place] Enoxaparin Sodium (Enoxaparin Sodium 40 Mg/0.4 Ml Syringe) 40 mg SUBCUT Q24H [facility] Last Admin: 03/04/23 07:54 Dose: 40 mg Glucose (Glucose Gel 15 Gm Gel..Gram.) 15 gm PO Q15M PRN; Protocol PRN Reason: per Hypoglycemia Standing Ord. Vancomycin HCl 1,000 mg/ (Sodium Chloride) 270 mls @ 270 mls/hr IV Q12H [facility] Last Infusion: 03/04/23 12:19 Dose: Infused Dextrose (D10) 250 mls @ 750 mls/hr IV Q15M PRN; Protocol PRN Reason: per Hypoglycemia Standing Ord. Piperacillin Sod/Tazobactam (Sod 3.375 gm/ Sodium Chloride) 50 mls @ 100 mls/hr IV Q6H [facility] Insulin Glargine (Insulin Glargine,Hum.Rec.Anlog 100 Unit/Ml 10 Ml Vial) 30 unit SUBCUT BID [facility] Last Admin: 03/04/23 10:13 Dose: 30 unit Insulin Human Lispro (Insulin Lispro 100 Unit/Ml 3 Ml Vial) 0 unit SUBCUT Q IDACHS [facility]; Protocol Last Admin: 03/04/23 12:01 Dose: Not Given Methadone HCl (Methadone Hcl 20 Mg/2 Ml Oral.Conc) 85 mg PO DAILY [facility] Pharmacy Consult (Consult Rx Perform Med Rec) 1 each MISCELLANE ONCE PRN PRN Reason: Consult order Pharmacy Consult (Consult Rx Vancomycin Dosing) 1 each MISCELLANE DAILY PRN PRN Reason: Consult order Sodium Chloride (0.9 % Sodium Chloride Flush 3 Ml Syringe) 3 ml IVFLUSH QSHIFT [facility] Last Admin: 03/04/23 07:54 Dose: 3 ml Home Medications Medication Instructions Recorded Confirmed Last Taken Type diltiazem HCl 120 mg capsule,24 120 mg PO QAM 08/11/20 03/03/23 12/29/20 History hr,extended release insulin glargine 100 unit/mL 40 unit subcut BID 08/11/20 03/03/23 Unknown History subcutaneous solution (Lantus U-100 Insulin) amitriptyline 50 mg tablet 50 mg PO BEDTIME 12/09/20 03/03/23 Unknown History blood sugar diagnostic (FreeStyle #10 ea 03/08/22 02/07/23 Unknown History Lite Strips) insulin syringe-needle U-100 1 mL #10 ea 03/08/22 02/07/23 Unknown History 31 gauge x 5/16 (BD Insulin Syringe Ultra-Fine) methadone 5 mg tablet 85 mg PO DAILY 02/07/23 03/04/23 Unknown History doxycycline hyclate 100 mg tablet 100 mg PO BID 03/04/23 03/04/23 Unknown History glipizide 2.5 mg tablet, extended 2.5 mg PO QAM 03/04/23 03/04/23 Unknown History release 24 hr Exam Exam Date and Time: March 04, 2023 1602 Height,Weight and Vital Signs: Height 6 ft 2 in Weight 112 kg Last Vital Signs Temp 98.5 F 03/04/23 13:50 Pulse 77 03/04/23 13:50 Resp 16 03/04/23 13:50 BP 139/62 03/04/23 13:50 Pulse Ox 97 03/04/23 13:50 O2 Del Method Room Air 03/04/23 13:50 Pertinent Lab Results Pertinent Lab Results: Laboratory Tests 03/03/23 03/03/23 03/03/23 17:41 17:41 17:41 WBC 20.6 H RBC 3.60 L Hgb 9.1 L Hct 29.1 L MCV 80.8 MCH 25.3 L MCHC 31.3 RDW 14.0 Plt Count 413 H MPV 9.9 Immature Gran % (Auto) 0.7 H Neut % (Auto) 79.6 H Lymph % (Auto) 10.1 L [place] % (Auto) 7.4 Eos % (Auto) 2.0 Baso % (Auto) 0.2 Lymph # (Auto) 2.1 [place] # (Auto) 1.5 H Eos # (Auto) 0.4 Baso # (Auto) 0.0 Abs Immat Gran (auto) 0.15 H Absolute Neuts (auto) 16.4 H Absolute Nucleated RBC 0.000 Nucleated RBC % (auto) 0.0 Smear Tech's Comments VERIFIED ESR 108 H PT 16.8 H INR 1.4 H APTT 35.0 Sodium Potassium Chloride Carbon Dioxide Anion Gap BUN Creatinine Estim Creat Clear Calc Estimated GFR POC Glucose Random Glucose Fasting Glucose Lactic Acid Calcium Total Bilirubin AST ALT Alkaline Phosphatase C-Reactive Protein Total Protein Albumin Lipase COVID-19 ([facility]ACE) COVID-19 [employer] Com Blood Type Antibody Screen 03/03/23 03/03/23 03/03/23 17:41 17:41 17:41 WBC RBC Hgb Hct MCV MCH MCHC RDW Plt Count MPV Immature Gran % (Auto) Neut % (Auto) Lymph % (Auto) [place] % (Auto) Eos % (Auto) Baso % (Auto) Lymph # (Auto) [place] # (Auto) Eos # (Auto) Baso # (Auto) Abs Immat Gran (auto) Absolute Neuts (auto) Absolute Nucleated RBC Nucleated RBC % (auto) Smear Tech's Comments ESR PT INR APTT Sodium 133 L Potassium 5.0 Chloride 98 Carbon Dioxide 27 Anion Gap 13 BUN 17 H Creatinine 1.07 Estim Creat Clear Calc 84.2 Estimated GFR > 60 POC Glucose Random Glucose 146 H Fasting Glucose Lactic Acid Calcium 8.7 Total Bilirubin 0.3 AST 16 ALT 17 Alkaline Phosphatase 92 C-Reactive Protein 19.47 H Total Protein 7.7 Albumin 3.1 L Lipase 6 L COVID-19 (CANDACE) Negative COVID-AX[facility] [employer] See Note Blood Type O Positive Antibody Screen NEGATIVE 03/03/23 03/03/23 03/03/23 17:41 22:49 23:37 WBC RBC Hgb Hct MCV MCH MCHC RDW Plt Count MPV Immature Gran % (Auto) Neut % (Auto) Lymph % (Auto) [place] % (Auto) Eos % (Auto) Baso % (Auto) Lymph # (Auto) [place] # (Auto) Eos # (Auto) Baso # (Auto) Abs Immat Gran (auto) Absolute Neuts (auto) Absolute Nucleated RBC Nucleated RBC % (auto) Smear Tech's Comments ESR PT INR APTT Sodium Potassium Chloride Carbon Dioxide Anion Gap BUN Creatinine Estim Creat Clear Calc Estimated GFR POC Glucose 78 107 Random Glucose Fasting Glucose Lactic Acid 1.6 Calcium Total Bilirubin AST ALT Alkaline Phosphatase C-Reactive Protein Total Protein Albumin Lipase COVID-19 (CANDACE) COVID-[employer]iral[employer] Com Blood Type Antibody Screen 03/04/23 03/04/23 03/04/23 06:09 06:09 07:19 WBC 25.2 H RBC 3.62 L Hgb 9.2 L Hct 29.2 L MCV 80.7 MCH 25.4 L MCHC 31.5 RDW 14.2 Plt Count 419 H MPV 10.1 Immature Gran % (Auto) Neut % (Auto) Lymph % (Auto) [place] % (Auto) Eos % (Auto) Baso % (Auto) Lymph # (Auto) [place] # (Auto) Eos # (Auto) Baso # (Auto) Abs Immat Gran (auto) Absolute Neuts (auto) Absolute Nucleated RBC 0.000 Nucleated RBC % (auto) 0.0 Smear Tech's Comments ESR PT INR APTT Sodium 134 L Potassium 5.4 H Chloride 100 Carbon Dioxide 27 Anion Gap 12 BUN 15 Creatinine 1.19 Estim Creat Clear Calc 75.7 Estimated GFR > 60 POC Glucose 129 H Random Glucose Fasting Glucose 117 H Lactic Acid Calcium 8.7 Total Bilirubin AST ALT Alkaline Phosphatase C-Reactive Protein Total Protein Albumin Lipase COVID-19 (CANDACE) COVIDParrable Blood Type Antibody Screen 03/04/23 03/04/23 03/04/23 10:13 11:47 13:40 WBC RBC Hgb Hct MCV MCH MCHC RDW Plt Count MPV Immature Gran % (Auto) Neut % (Auto) Lymph % (Auto) [place] % (Auto) Eos % (Auto) Baso % (Auto) Lymph # (Auto) [place] # (Auto) Eos # (Auto) Baso # (Auto) Abs Immat Gran (auto) Absolute Neuts (auto) Absolute Nucleated RBC Nucleated RBC % (auto) Smear Tech's Comments ESR PT INR APTT Sodium Potassium Chloride Carbon Dioxide Anion Gap BUN Creatinine Estim Creat Clear Calc Estimated GFR POC Glucose 197 H 165 H 119 H Random Glucose Fasting Glucose Lactic Acid Calcium Total Bilirubin AST ALT Alkaline Phosphatase C-Reactive Protein Total Protein Albumin Lipase COVID-19 (CANDACE) COVID-AX[facility] [employer] Blood Type Antibody Screen Airway Mallampati Class: II TM Dist: >3cm Neck ROM: Limited Heart: rrr Lungs: bbse Assessment and Plan Assessment Anesthesia Assessment: Anesthesia Plan Discussed and Chart Reviewed Final Anesthetic Review Family History of Problems with Anesthesia: No History of Problems with Anesthesia: No NPO: Yes ASA Class: IV Final Preanesthetic Review: No Changes in Pt Med Stat, Meds/Allgs Chart Reviewed and Consent Obtained/Reviewed Patient Risk: High Procedure Risk: Intermediate Assessment/Block/Sedation in SS: Assess/Block/Sedation-SS Anesthetic Plan Anesthetic Plan: Regional Block Disposition: Standard PACU
[2023-03-04 17:56] LABS: Glucose, Whole Blood 154 mg/dL (60-115)
--- NOTE | 2023-03-04 18:41 | PC.NURSE ---
Patient back from OR, A&Ox3, no resp distress, scant amount of blood noted on sabine wrap.
[2023-03-04] MEDS: Acetaminophen 1,000 MG/100 ML PIGGYBACK 400 MG IV (19:03)
[2023-03-04] MEDS: Lactated Ringers 1,000 ML 100 ML IVCONT (19:04)
[2023-03-04 20:07] LABS: Glucose, Whole Blood 190 mg/dL (60-115)
[2023-03-04] MEDS: Insulin Lispro 100 UNIT/ML 3 ML VIAL SUBCUT (20:42)
[2023-03-04] MEDS: Amitriptyline HCl 50 MG TABLET PO (20:42)
[2023-03-04 21:35] LABS: Vancomycin Random 13.1 mcg/mL (15-20)
--- NOTE | 2023-03-04 22:03 | HE.PHANOTE ---
Vanco trough 13.1, continue same dose. auc anticipated = [phone]
[2023-03-05] VITALS (10 sets, daily range): BP systolic 164–209; BP diastolic 70–91; PULSE 64–71; RESP 16–18; TEMP 36.2–36.6; O2SAT 96–99
[2023-03-05] MEDS: 0.9 % Sodium Chloride Flush 3 ML SYRINGE IVFLUSH ×2 (00:04→23:49)
[2023-03-05] MEDS: Piperacillin Sodium/Tazobactam 3.375 GM in 0.9 % Sodium Chloride 50 ML IV ×5 (00:04→23:48)
[2023-03-05] MEDS: Acetaminophen 1,000 MG/100 ML PIGGYBACK 400 MG IV ×3 (00:41→12:15)
[2023-03-05] MEDS: HYDROmorphone HCl 0.5 MG/0.5 ML SYRINGE IVPUSH ×8 (01:37→23:48)
[2023-03-05] MEDS: oxyCODONE HCl Immed Release 5 MG TABLET PO ×2 (02:31→19:43)
[2023-03-05 06:28] LABS: MANUAL DIFF FLAG NO
[2023-03-05 06:34] LABS: Basophils Percent Auto 0.2 % (0-2); Eosinophils Absolute Auto 0.2 X10*3/uL (0.0-0.4); Eosinophils Percent Auto 1.1 % (0-4); Hematocrit 28.4 % (42.0-52.0); Hemoglobin 8.8 g/dl (14.0-18.0); Imm Gran Abs Auto 0.17 X10*3/uL (0.00-0.03); Lymphocytes Absolute Auto 1.5 X10*3/uL (1.2-4.9); Lymphocytes Percent Auto 8.7 % (20-40); Mean Corpuscular Hemoglobin 25.3 pg (27.0-33.0); Mean Corpuscular Volume 81.6 fL (80.0-98.0); Mean Platelet Volume 10.2 fL (9.4-12.4); Monocytes Absolute Auto 1.3 X10*3/uL (0.1-1.2); Monocytes Percent Auto 7.5 % (2-11); Neutrophils Absolute Auto 13.7 x10*3/uL (2.0-8.3); Neutrophils Percent Auto 81.5 % (45-73); Platelet Count 398 X10*3/uL (160-400); Red Blood Count 3.48 X10*6/uL (4.60-5.80); Red Cell Distribution Width 14.1 % (11.0-16.0); White Blood Count 16.8 X10*3/uL (4.8-10.8)
[2023-03-05] MEDS: methADONE HCl 20 MG/2 ML ORAL.CONC 85 MG PO (07:05)
[2023-03-05] MEDS: Enoxaparin Sodium 40 MG/0.4 ML SYRINGE SUBCUT (07:34)
[2023-03-05] MEDS: dilTIAZem HCL CD 120 MG CAP.ER.DEG PO (07:34)
[2023-03-05] MEDS: Lactated Ringers 1,000 ML 100 ML IVCONT ×3 (07:35→17:58)
[2023-03-05] MEDS: Insulin Glargine,Hum.rec.anlog 100 UNIT/ML 10 ML VIAL 30 UNIT SUBCUT ×2 (07:35→20:57)
[2023-03-05] MEDS: Insulin Lispro 100 UNIT/ML 3 ML VIAL SUBCUT ×4 (07:36→20:57)
[2023-03-05 07:40] LABS: Glucose, Whole Blood 163 mg/dL (60-115)
--- NOTE | 2023-03-05 08:46 | PM.PNGS ---
Subjective Subjective Date of Service: 03/05/23 Interval history: Reports some right incisional pain. Notes some bleeding discharge from dressing. Dressing was reinforced during the night Physical Exam Vital Signs: Vital Signs: Last Vital Signs Temp 97.8 F 03/05/23 07:27 Pulse 64 03/05/23 07:27 Resp 18 03/05/23 07:27 BP 209/91 H 03/05/23 07:27 Pulse Ox 97 03/05/23 07:27 O2 Del Method Room Air 03/05/23 07:27 BMI result Body Mass Index 31.6 Const: General: no acute distress and well developed Nutritional Appearance: well nourished Orientation/consciousness: patient oriented x3 Resp: Effort & Inspection: normal respiratory effort, no audible wheezes, no cough and no respiratory distress Skin: Other: Warm, dry, no rash Neuro: General: patient oriented x3 Extrem: Other: Right BKA dressings changed. Some bloody discharge from mid incision. Clean dressings applied including fluff gauze, ABD, Kerlix, and 6 in Quentin bandage. Patient tolerated dressing change well. Skin edges are well approximated with no evidence of necrosis or erythema. Objective Data Active Medications Amitriptyline HCl (Amitriptyline Hcl 50 Mg Tablet) 50 mg PO BEDTIME [facility] Last Admin: 03/04/23 20:42 Dose: 50 mg Documented By: TEJAS Diltiazem HCl (Diltiazem Hcl Cd 120 Mg Cap.Er.Deg) 120 mg PO DAILY [facility]; Protocol Last Admin: 03/05/23 07:34 Dose: 120 mg Documented By: FLORENCE Diphenhydramine HCl (Diphenhydramine Hcl 25 Mg Capsule) 50 mg PO ONCE [facility] Enoxaparin Sodium (Enoxaparin Sodium 40 Mg/0.4 Ml Syringe) 40 mg SUBCUT Q24H [facility] Last Admin: 03/05/23 07:34 Dose: 40 mg Documented By: FLORENCE Glucose (Glucose Gel 15 Gm Gel..Gram.) 15 gm PO Q15M PRN; Protocol PRN Reason: per Hypoglycemia Standing Ord. Hydromorphone HCl (Hydromorphone Hcl 0.5 Mg/0.5 Ml Syringe) 0.5 mg IVPUSH Q3H PRN; Protocol PRN Reason: Pain, Severe (Pain Scale 7-10) Last Admin: 03/05/23 07:41 Dose: 0.5 mg Documented By: FLORENCE Vancomycin HCl 1,000 mg/ (Sodium Chloride) 270 mls @ 270 mls/hr IV Q12H [facility] Last Infusion: 03/04/23 23:30 Dose: 0 mls/hr Documented By: JILLIAN Dextrose (D10) 250 mls @ 750 mls/hr IV Q15M PRN; Protocol PRN Reason: per Hypoglycemia Standing Ord. Piperacillin Sod/Tazobactam (Sod 3.375 gm/ Sodium Chloride) 50 mls @ 100 mls/hr IV Q6H [facility] Last Infusion: 03/05/23 06:25 Dose: 0 mls/hr Documented By: JILLIAN Lactated Ringer's (Lr) 1,000 mls @ 100 mls/hr IVCONT .Q10H [facility] Last Admin: 03/05/23 07:35 Dose: 100 mls/hr Documented By: FLORENCE Acetaminophen (Ofirmev) 1,000 mg in 100 mls @ 400 mls/hr IV Q6H [facility] Stop: 03/05/23 12:33 Last Infusion: 03/05/23 06:42 Dose: 0 mls/hr Documented By: JILLIAN Insulin Glargine (Insulin Glargine,Hum.Rec.Anlog 100 Unit/Ml 10 Ml Vial) 30 unit SUBCUT BID [facility] Last Admin: 03/05/23 07:35 Dose: 30 unit Documented By: FLORENCE Insulin Human Lispro (Insulin Lispro 100 Unit/Ml 3 Ml Vial) 0 unit SUBCUT QIDACHS [facility]; Protocol Last Admin: 03/05/23 07:36 Dose: 2 unit Documented By: FLORENCE Methadone HCl (Methadone Hcl 20 Mg/2 Ml Oral.Conc) 85 mg PO DAILY [facility] Last Admin: 03/05/23 07:05 Dose: 85 mg Documented By: FLORENCE Ondansetron HCl (Ondansetron Hcl 4 Mg/2 Ml Vial) 4 mg IVPUSH QID PRN PRN Reason: Nausea Oxycodone HCl (Oxycodone Hcl Immed Release 5 Mg Tablet) 5 mg PO Q4H PRN PRN Reason: Pain, Moderate (Pain Scale 4-6 Last Admin: 03/05/23 02:31 Dose: 5 mg Documented By: JILLIAN Pharmacy Consult (Consult Rx Perform Med Rec) 1 each MISCELLANE ONCE PRN PRN Reason: Consult order Pharmacy Consult (Consult Rx Vancomycin Dosing) 1 each MISCELLANE DAILY PRN PRN Reason: Consult order Sodium Chloride (0.9 % Sodium Chloride Flush 3 Ml Syringe) 3 ml IVFLUSH QSHIFT [facility] Last Admin: 03/05/23 07:35 Dose: Not Given Documented By: FLORENCE Non-Admin Reason: IV Running Zolpidem Tartrate (Zolpidem Tartrate 5 Mg Tablet) 5 mg PO BEDTIME PRN PRN Reason: Insomnia Labs 03/05/23 06:08 03/04/23 06:09 Labs: Laboratory Results - last 24 hr 03/04/23 03/04/23 03/04/23 10:13 11:47 13:40 MCV MCH MCHC RDW Plt Count MPV Immature Gran % (Auto) Neut % (Auto) Lymph % (Auto) [place] % (Auto) Eos % (Auto) Baso % (Auto) Lymph # (Auto) [place] # (Auto) Eos # (Auto) Baso # (Auto) Abs Immat Gran (auto) Absolute Neuts (auto) Absolute Nucleated RBC Nucleated RBC % (auto) POC Glucose 197 H 165 H 119 H Random Vancomycin 03/04/23 03/04/23 03/04/23 17:52 20:03 21:10 MCV MCH MCHC RDW Plt Count MPV Immature Gran % (Auto) Neut % (Auto) Lymph % (Auto) [place] % (Auto) Eos % (Auto) Baso % (Auto) Lymph # (Auto) [place] # (Auto) Eos # (Auto) Baso # (Auto) Abs Immat Gran (auto) Absolute Neuts (auto) Absolute Nucleated RBC Nucleated RBC % (auto) POC Glucose 154 H 190 H Random Vancomycin 13.1 L 03/05/23 03/05/23 06:08 07:24 MCV 81.6 MCH 25.3 L MCHC 31.0 RDW 14.1 Plt Count 398 MPV 10.2 Immature Gran % (Auto) 1.0 H Neut % (Auto) 81.5 H Lymph % (Auto) 8.7 L [place] % (Auto) 7.5 Eos % (Auto) 1.1 Baso % (Auto) 0.2 Lymph # (Auto) 1.5 [place] # (Auto) 1.3 H Eos # (Auto) 0.2 Baso # (Auto) 0.0 Abs Immat Gran (auto) 0.17 H Absolute Neuts (auto) 13.7 H Absolute Nucleated RBC 0.000 Nucleated RBC % (auto) 0.0 POC Glucose 163 H Random Vancomycin Microbiology Microbiology Results: Microbiology 03/03/23 18:29 Blood Culture - Preliminary Blood - Venous No growth after 24 hours. 03/03/23 17:41 Blood Culture - Preliminary Blood - Venous No growth after 24 hours. Procedures Date of Service Date of Service: 03/05/23 Progress Note: A&P Assessment and plan (1) Osteomyelitis: Status: Acute (2) Diabetic ulcer of right foot: Status: Acute Plan Pod 1 following right below-knee amputation. WBC is improved. Dressings changed due to bloody discharge. Skin edges are clean without erythema, well approximated. Clean dressings applied. Plan physical therapy today. Time Spent With Patient Time: Total time managing care of this patient today ____ minutes. Quality Stroke Does the patient have a stroke diagnosis?: No VTE Prior VTE?: No VTE Risk Level:: Medical - moderate - high VTE Device Contraindication: Treatment Not Indicated VTE Drug Contraindication: N/A - Med Ordered
[2023-03-05 09:27] LABS: Creatinine Clr Calc Pharmacy 117.3; Estimated Glomerular Filt Rate > 60
--- NOTE | 2023-03-05 09:37 | HE.PHANOTE ---
Vancomycin Dosing Addendum Patients level came back last night at 13.1 mg/L. Continue 1000 mg Q12H. Will get another level for tonight @ 2100. Predicted AUC 533 mg/L/hr
[2023-03-05] MEDS: vancomycin HCL 1,000 MG in 0.9 % Sodium Chloride 250 ML 270 MG IV ×2 (10:21→23:49)
--- NOTE | 2023-03-05 10:25 | HO.PM.IMPN ---
Subjective Subjective Date of Service: 03/05/23 Review of Systems Follow-up right foot ulcer with osteomyelitis Plan for BKA today Physical Exam Vital Signs: Vital Signs: Last Vital Signs Temp 97.8 F 03/05/23 07:27 Pulse 64 03/05/23 07:27 Resp 18 03/05/23 07:27 BP 177/85 H 03/05/23 09:00 Pulse Ox 97 03/05/23 07:27 O2 Del Method Room Air 03/05/23 07:27 BMI result Body Mass Index 31.6 Appearing in no acute distress lung sounds are clear to auscultation heart regular rate rhythm, clear S1, S2 positive bowel sounds, abdomen is soft, nontender neuro patient is alert x3, no focal deficits Objective Data Active Medications Amitriptyline HCl (Amitriptyline Hcl 50 Mg Tablet) 50 mg PO BEDTIME [facility] Last Admin: 03/04/23 20:42 Dose: 50 mg Documented By: TEJAS Diltiazem HCl (Diltiazem Hcl Cd 120 Mg Cap.Er.Deg) 120 mg PO DAILY [facility]; Protocol Last Admin: 03/05/23 07:34 Dose: 120 mg Documented By: FLORENCE Diphenhydramine HCl (Diphenhydramine Hcl 25 Mg Capsule) 50 mg PO ONCE [facility] Enoxaparin Sodium (Enoxaparin Sodium 40 Mg/0.4 Ml Syringe) 40 mg SUBCUT Q24H [facility] Last Admin: 03/05/23 07:34 Dose: 40 mg Documented By: FLORENCE Glucose (Glucose Gel 15 Gm Gel..Gram.) 15 gm PO Q15M PRN; Protocol PRN Reason: per Hypoglycemia Standing Ord. Hydromorphone HCl (Hydromorphone Hcl 0.5 Mg/0.5 Ml Syringe) 0.5 mg IVPUSH Q3H PRN; Protocol PRN Reason: Pain, Severe (Pain Scale 7-10) Last Admin: 03/05/23 07:41 Dose: 0.5 mg Documented By: FLORENCE Vancomycin HCl 1,000 mg/ (Sodium Chloride) 270 mls @ 270 mls/hr IV Q12H [facility] Last Admin: 03/05/23 10:21 Dose: 270 mls/hr Documented By: FLORENCE Dextrose (D10) 250 mls @ 750 mls/hr IV Q15M PRN; Protocol PRN Reason: per Hypoglycemia Standing Ord. Piperacillin Sod/Tazobactam (Sod 3.375 gm/ Sodium Chloride) 50 mls @ 100 mls/hr IV Q6H [facility] Last Infusion: 03/05/23 06:25 Dose: 0 mls/hr Documented By: JILLIAN Lactated Ringer's (Lr) 1,000 mls @ 100 mls/hr IVCONT .Q10H [facility] Last Admin: 03/05/23 07:35 Dose: 100 mls/hr Documented By: FLORENCE Acetaminophen (Ofirmev) 1,000 mg in 100 mls @ 400 mls/hr IV Q6H [facility] Stop: 03/05/23 12:33 Last Infusion: 03/05/23 06:42 Dose: 0 mls/hr Documented By: JILLIAN Insulin Glargine (Insulin Glargine,Hum.Rec.Anlog 100 Unit/Ml 10 Ml Vial) 30 unit SUBCUT BID [facility] Last Admin: 03/05/23 07:35 Dose: 30 unit Documented By: FLORENCE Insulin Human Lispro (Insulin Lispro 100 Unit/Ml 3 Ml Vial) 0 unit SUBCUT QIDACHS [facility]; Protocol Last Admin: 03/05/23 07:36 Dose: 2 unit Documented By: FLORENCE Methadone HCl (Methadone Hcl 20 Mg/2 Ml Oral.Conc) 85 mg PO DAILY [facility] Last Admin: 03/05/23 07:05 Dose: 85 mg Documented By: FLORENCE Ondansetron HCl (Ondansetron Hcl 4 Mg/2 Ml Vial) 4 mg IVPUSH QID PRN PRN Reason: Nausea Oxycodone HCl (Oxycodone Hcl Immed Release 5 Mg Tablet) 5 mg PO Q4H PRN PRN Reason: Pain, Moderate (Pain Scale 4-6 Last Admin: 03/05/23 02:31 Dose: 5 mg Documented By: JILLIAN Pharmacy Consult (Consult Rx Perform Med Rec) 1 each MISCELLANE ONCE PRN PRN Reason: Consult order Pharmacy Consult (Consult Rx Vancomycin Dosing) 1 each MISCELLANE DAILY PRN PRN Reason: Consult order Sodium Chloride (0.9 % Sodium Chloride Flush 3 Ml Syringe) 3 ml IVFLUSH QSHIFT [facility] Last Admin: 03/05/23 07:35 Dose: Not Given Documented By: FLORENCE Non-Admin Reason: IV Running Zolpidem Tartrate (Zolpidem Tartrate 5 Mg Tablet) 5 mg PO BEDTIME PRN PRN Reason: Insomnia Labs 03/05/23 06:08 03/05/23 Unknown Labs: Laboratory Results - last 24 hr 03/04/23 03/04/23 03/04/23 11:47 13:40 17:52 MCV MCH MCHC RDW Plt Count MPV Immature Gran % (Auto) Neut % (Auto) Lymph % (Auto) [place] % (Auto) Eos % (Auto) Baso % (Auto) Lymph # (Auto) [place] # (Auto) Eos # (Auto) Baso # (Auto) Abs Immat Gran (auto) Absolute Neuts (auto) Absolute Nucleated RBC Nucleated RBC % (auto) Estim Creat Clear Calc Estimated GFR POC Glucose 165 H 119 H 154 H Random Vancomycin 03/04/23 03/04/23 03/05/23 20:03 21:10 06:08 MCV 81.6 MCH 25.3 L MCHC 31.0 RDW 14.1 Plt Count 398 MPV 10.2 Immature Gran % (Auto) 1.0 H Neut % (Auto) 81.5 H Lymph % (Auto) 8.7 L [place] % (Auto) 7.5 Eos % (Auto) 1.1 Baso % (Auto) 0.2 Lymph # (Auto) 1.5 [place] # (Auto) 1.3 H Eos # (Auto) 0.2 Baso # (Auto) 0.0 Abs Immat Gran (auto) 0.17 H Absolute Neuts (auto) 13.7 H Absolute Nucleated RBC 0.000 Nucleated RBC % (auto) 0.0 Estim Creat Clear Calc Estimated GFR POC Glucose 190 H Random Vancomycin 13.1 L 03/05/23 03/05/23 07:24 Unknown MCV MCH MCHC RDW Plt Count MPV Immature Gran % (Auto) Neut % (Auto) Lymph % (Auto) [place] % (Auto) Eos % (Auto) Baso % (Auto) Lymph # (Auto) [place] # (Auto) Eos # (Auto) Baso # (Auto) Abs Immat Gran (auto) Absolute Neuts (auto) Absolute Nucleated RBC Nucleated RBC % (auto) Estim Creat Clear Calc 117.3 Estimated GFR > 60 POC Glucose 163 H Random Vancomycin Microbiology Microbiology Results: Microbiology 03/03/23 18:29 Blood Culture - Preliminary Blood - Venous No growth after 24 hours. 03/03/23 17:41 Blood Culture - Preliminary Blood - Venous No growth after 24 hours. Assessment and Plan (1) Osteomyelitis: Status: Acute Plan 62M PMH DM, htn, mood disorder, paroxysmal vs lone afib (not on AC), hcv (treated 2009), opiate dependence, presented with malodorous right DFU Right foot ulcer due to diabetes with osteomyelitis complicated by cellulitis WBC trending down on IV vanc, zosyn for now cx neg after 24 hrs s/p BKA 03/04/23 Hyperkalemia lokelma follow bMP DM ss, ada diet HTN, uncontrolled cardizem afib, ?paroxysmal vs lone in sinus not on ac at home continue cardizem mood disorder amitryptilline opiate dependence methadone when verified dvt prophylaxis - kassie attending Dr. Hayes full code DISPO PT consult, will likely need str continue hospital stay for patient with significant deep infection requiring iv abx and plan for BKA Time Spent With Patient Time: Total time managing care of this patient today ____ minutes. Quality Stroke Does the patient have a stroke diagnosis?: No VTE Prior VTE?: No VTE Risk Level:: Medical - moderate - high VTE Device Contraindication: Treatment Not Indicated VTE Drug Contraindication: N/A - Med Ordered
[2023-03-05 11:21] LABS: Glucose, Whole Blood 288 mg/dL (60-115)
--- NOTE | 2023-03-05 12:41 | HO.POSTANES ---
Post Anesthesia Evaluation Post Anesthesia Evaluation Vital Signs: Vital Signs Temp Pulse Resp BP Pulse Ox O2 Del Method 03/05/23 11:36 97.7 F 64 18 186/80 H 99 Room Air 03/05/23 09:00 177/85 H 03/05/23 07:27 97.8 F 64 18 209/91 H 97 Room Air 03/05/23 03:56 97.1 F 65 17 182/74 H 96 Room Air Anesthesia: General Mental Status: Awake Pain Control: Satisfactory Nausea/Vomiting: None Hydration: Adequate Anesthesia-Related Issues: No Anes. Related Issues
--- NOTE | 2023-03-05 15:10 | MHC.CM.PN ---
physical therapy recommending acute rehab referrals made
[2023-03-05 16:24] LABS: Glucose, Whole Blood 188 mg/dL (60-115)
[2023-03-05 20:08] LABS: Glucose, Whole Blood 249 mg/dL (60-115)
[2023-03-05] MEDS: Amitriptyline HCl 50 MG TABLET PO (20:58)
[2023-03-05 21:26] LABS: Vancomycin Random 14.6 mcg/mL (15-20)
[2023-03-06] VITALS (7 sets, daily range): BP systolic 156–202; BP diastolic 74–84; PULSE 61–80; RESP 16–20; TEMP 36.1–37.1; O2SAT 96–99
[2023-03-06] MEDS: HYDROmorphone HCl 0.5 MG/0.5 ML SYRINGE IVPUSH ×3 (05:45→12:13)
[2023-03-06] MEDS: Piperacillin Sodium/Tazobactam 3.375 GM in 0.9 % Sodium Chloride 50 ML IV ×4 (05:52→23:50)
[2023-03-06] MEDS: Lactated Ringers 1,000 ML 100 ML IVCONT ×2 (05:56→06:05)
[2023-03-06 07:03] LABS: Hematocrit 28.6 % (42.0-52.0); Hemoglobin 8.8 g/dl (14.0-18.0); Mean Corpuscular HGB Conc 30.8 g/dl (31.0-36.0); Mean Corpuscular Hemoglobin 25.1 pg (27.0-33.0); Mean Corpuscular Volume 81.5 fL (80.0-98.0); Platelet Count 465 X10*3/uL (160-400); Red Blood Count 3.51 X10*6/uL (4.60-5.80); White Blood Count 15.4 X10*3/uL (4.8-10.8)
[2023-03-06 07:24] LABS: Anion Gap 12 (12-20); Blood Urea Nitrogen 7 mg/dL (9-16); Calcium 8.5 mg/dL (8.4-10.2); Carbon Dioxide 29 mmol/L (22-29); Chloride 103 mmol/L (96-108); Creatinine Clr Calc Pharmacy 135.8; Estimated Glomerular Filt Rate > 60; Glucose Random 102 mg/dL (60-115); Potassium 4.7 mmol/L (3.3-5.1); Sodium 139 mmol/L (135-145)
[2023-03-06 07:32] LABS: Glucose, Whole Blood 167 mg/dL (60-115)
[2023-03-06] MEDS: oxyCODONE HCl Immed Release 5 MG TABLET PO (08:13)
[2023-03-06] MEDS: Insulin Lispro 100 UNIT/ML 3 ML VIAL SUBCUT ×2 (08:22→12:11)
[2023-03-06] MEDS: Enoxaparin Sodium 40 MG/0.4 ML SYRINGE SUBCUT (08:22)
[2023-03-06] MEDS: Insulin Glargine,Hum.rec.anlog 100 UNIT/ML 10 ML VIAL 30 UNIT SUBCUT ×2 (08:23→20:54)
[2023-03-06] MEDS: dilTIAZem HCL CD 120 MG CAP.ER.DEG PO (08:23)
--- NOTE | 2023-03-06 08:51 | MHC.CM.PN ---
Updated clinical information has been sent to the Acute rehabs. PT eval recommendation is for Acute rehab [facility] Acute rehab via [facility].
[2023-03-06] MEDS: methADONE HCl 20 MG/2 ML ORAL.CONC 85 MG PO (09:15)
[2023-03-06 11:42] LABS: Glucose, Whole Blood 238 mg/dL (60-115)
[2023-03-06] MEDS: vancomycin HCL 1,000 MG in 0.9 % Sodium Chloride 250 ML 270 MG IV ×2 (11:42→22:31)
--- NOTE | 2023-03-06 12:57 | PM.PNGS ---
Subjective Subjective Date of Service: 03/06/23 Interval history: Feels ok. Pain at amp site improved and is somewhat relieved with analgesics but wears off too quickly. Participating in PT. Physical Exam Vital Signs: Vital Signs: Last Vital Signs Temp 96.9 F 03/06/23 12:00 Pulse 80 03/06/23 12:00 Resp 20 03/06/23 12:00 BP 189/84 H 03/06/23 12:00 Pulse Ox 97 03/06/23 12:00 O2 Del Method Room Air 03/06/23 12:00 BMI result Body Mass Index 31.6 Const: General: comfortable, no acute distress and alert Orientation/consciousness: patient oriented x3 Resp: Effort & Inspection: normal respiratory effort Neuro: General: patient oriented x3 and moves all extremities Extrem: Other: right BKA - flaps viable, some persistent edema, incision dry and carleen intact; chronic skin changes proximally Objective Data Active Medications Amitriptyline HCl (Amitriptyline Hcl 50 Mg Tablet) 50 mg PO BEDTIME [facility] Last Admin: 03/05/23 20:58 Dose: 50 mg Documented By: SAMIRA Diltiazem HCl (Diltiazem Hcl Cd 120 Mg Cap.Er.Deg) 120 mg PO DAILY [facility]; Protocol Last Admin: 03/06/23 08:23 Dose: 120 mg Documented By: SHILOH Diphenhydramine HCl (Diphenhydramine Hcl 25 Mg Capsule) 50 mg PO ONCE [facility] Docusate Sodium (Docusate Sodium 100 Mg Capsule) 100 mg PO BID [facility] Enoxaparin Sodium (Enoxaparin Sodium 40 Mg/0.4 Ml Syringe) 40 mg SUBCUT Q24H [facility] Last Admin: 03/06/23 08:22 Dose: 40 mg Documented By: SHILOH Glucose (Glucose Gel 15 Gm Gel..Gram.) 15 gm PO Q15M PRN; Protocol PRN Reason: per Hypoglycemia Standing Ord. Hydromorphone HCl (Hydromorphone Hcl 0.5 Mg/0.5 Ml Syringe) 0.5 mg IVPUSH Q3H PRN; Protocol PRN Reason: Pain, Severe (Pain Scale 7-10) Last Admin: 03/06/23 12:13 Dose: 0.5 mg Documented By: MARISA Vancomycin HCl 1,000 mg/ (Sodium Chloride) 270 mls @ 270 mls/hr IV Q12H [facility] Last Admin: 03/06/23 11:42 Dose: 270 mls/hr Documented By: SHILOH Dextrose (D10) 250 mls @ 750 mls/hr IV Q15M PRN; Protocol PRN Reason: per Hypoglycemia Standing Ord. Piperacillin Sod/Tazobactam (Sod 3.375 gm/ Sodium Chloride) 50 mls @ 100 mls/hr IV Q6H [facility] Last Infusion: 03/06/23 06:27 Dose: 0 mls/hr Documented By: SAMIRA Lactated Ringer's (Lr) 1,000 mls @ 100 mls/hr IVCONT .Q10H [facility] Last Infusion: 03/06/23 05:57 Dose: 0 mls/hr Documented By: SAMIRA Acetaminophen (Ofirmev) 1,000 mg in 100 mls @ 400 mls/hr IV Q6H [facility] Insulin Glargine (Insulin Glargine,Hum.Rec.Anlog 100 Unit/Ml 10 Ml Vial) 30 unit SUBCUT BID [facility] Last Admin: 03/06/23 08:23 Dose: 30 unit Documented By: SHILOH Insulin Human Lispro (Insulin Lispro 100 Unit/Ml 3 Ml Vial) 0 unit SUBCUT QIDACHS [facility]; Protocol Last Admin: 03/06/23 12:11 Dose: 4 unit Documented By: SHILOH Methadone HCl (Methadone Hcl 20 Mg/2 Ml Oral.Conc) 85 mg PO DAILY [facility] Last Admin: 03/06/23 09:15 Dose: 85 mg Documented By: MARISA Ondansetron HCl (Ondansetron Hcl 4 Mg/2 Ml Vial) 4 mg IVPUSH QID PRN PRN Reason: Nausea Oxycodone HCl (Oxycodone Hcl Immed Release 5 Mg Tablet) 5 mg PO Q3H PRN PRN Reason: Pain, Moderate (Pain Scale 4-6 Pharmacy Consult (Consult Rx Perform Med Rec) 1 each MISCELLANE ONCE PRN PRN Reason: Consult order Pharmacy Consult (Consult Rx Vancomycin Dosing) 1 each MISCELLANE DAILY PRN PRN Reason: Consult order Senna (Sennosides 8.6 Mg Tablet) 8.6 mg PO DAILY [facility] Last Admin: 03/06/23 12:13 Dose: Not Given Documented By: SHILOH Non-Admin Reason: Patient Refused Sodium Chloride (0.9 % Sodium Chloride Flush 3 Ml Syringe) 3 ml IVFLUSH QSHIFT [facility] Last Admin: 03/06/23 08:27 Dose: Not Given Documented By: SHILOH Non-Admin Reason: IV Running Zolpidem Tartrate (Zolpidem Tartrate 5 Mg Tablet) 5 mg PO BEDTIME PRN PRN Reason: Insomnia Labs 03/06/23 06:13 03/06/23 06:13 Labs: Laboratory Results - last 24 hr 03/05/23 03/05/23 03/05/23 16:14 20:06 21:08 MCV MCH MCHC RDW Plt Count MPV Absolute Nucleated RBC Nucleated RBC % (auto) Anion Gap Estim Creat Clear Calc Estimated GFR POC Glucose 188 H 249 H Random Glucose Calcium Random Vancomycin 14.6 L 03/06/23 03/06/23 03/06/23 06:13 06:13 07:15 MCV 81.5 MCH 25.1 L MCHC 30.8 L RDW 14.0 Plt Count 465 H MPV 10.0 Absolute Nucleated RBC 0.000 Nucleated RBC % (auto) 0.0 Anion Gap 12 Estim Creat Clear Calc 135.8 Estimated GFR > 60 POC Glucose 167 H Random Glucose 102 Calcium 8.5 Random Vancomycin 03/06/23 11:20 MCV MCH MCHC RDW Plt Count MPV Absolute Nucleated RBC Nucleated RBC % (auto) Anion Gap Estim Creat Clear Calc Estimated GFR POC Glucose 238 H Random Glucose Calcium Random Vancomycin Microbiology Microbiology Results: Microbiology 03/03/23 18:29 Blood Culture - Preliminary Blood - Venous No growth after 48 hours. 03/03/23 17:41 Blood Culture - Preliminary Blood - Venous No growth after 48 hours. Procedures Date of Service Date of Service: 03/06/23 Progress Note: A&P Assessment and plan (1) Osteomyelitis: Status: Acute (2) Status post below knee amputation of right lower extremity: Status: Acute Plan POD #2 following right below-knee amputation. WBC continues to improve. BKA site clean and remains well approximated with viable flaps, some edema. Clean dressings applied with fluffs, abd, kerlix and sabine wrap. Encouraged elevation of right stump to help reduce edema. Cont PT. Ofirmev added for pain control. Time Spent With Patient Time: Total time managing care of this patient today ____ minutes. Quality Stroke Does the patient have a stroke diagnosis?: No VTE Prior VTE?: No VTE Risk Level:: Medical - moderate - high VTE Device Contraindication: Treatment Not Indicated VTE Drug Contraindication: N/A - Med Ordered
[2023-03-06] MEDS: Acetaminophen 1,000 MG/100 ML PIGGYBACK 400 MG IV ×2 (14:34→18:01)
[2023-03-06 16:04] LABS: Glucose, Whole Blood 133 mg/dL (60-115)
--- NOTE | 2023-03-06 16:42 | HO.PM.IMPN ---
Subjective Subjective Date of Service: 03/06/23 Interval History: seen and examined this morning follow up for nonhealing wound s/p right BKA some pain at amputation site; reporting constipation no fever, chills Review of Systems Review of Systems: Yes all other systems are reviewed and are negative Constitutional Constitutional: Denies chills and Denies fever(s) ENT Ears, Nose, Mouth, and Throat: Denies dizziness Cardiovascular Cardiovascular: Denies chest pain, Denies palpitations and Denies dyspnea Respiratory Respiratory: Denies cough and Denies dyspnea Gastrointestinal Gastrointestinal: Denies abdominal pain, Reports constipation, Denies diarrhea, Denies nausea and Denies vomiting Neurologic Neurologic: Denies dizziness Endocrine Endocrine: Denies palpitations Physical Exam Vital Signs: Vital Signs: Last Vital Signs Temp 98.8 F 03/06/23 15:30 Pulse 61 03/06/23 15:30 Resp 16 03/06/23 15:30 BP 169/80 H 03/06/23 15:30 Pulse Ox 99 03/06/23 15:48 O2 Del Method Room Air 03/06/23 15:48 BMI result Body Mass Index 31.6 Const: General: cooperative, comfortable, alert and awake Nutritional Appearance: average body habitus Orientation/consciousness: patient oriented x3 Resp: Effort & Inspection: normal respiratory effort, able to speak in complete sentences, no respiratory distress and no use of accessory muscles Auscultation: clear to auscultation bilaterally Cardio: Rate: regular rate GI: Inspection: No distended Palpation (GI): Soft to palpation and nontender Skin: Other: right BKA - stump with c/d/i dressing, not removed left transmetatarsal amputation Neuro: General: patient oriented x3 and CN's II-XI intact bilaterally Objective Data Active Medications Amitriptyline HCl (Amitriptyline Hcl 50 Mg Tablet) 50 mg PO BEDTIME [facility] Last Admin: 03/05/23 20:58 Dose: 50 mg Documented By: SAMIRA Diltiazem HCl (Diltiazem Hcl Cd 120 Mg Cap.Er.Deg) 120 mg PO DAILY [facility]; Protocol Last Admin: 03/06/23 08:23 Dose: 120 mg Documented By: SHILOH Diphenhydramine HCl (Diphenhydramine Hcl 25 Mg Capsule) 50 mg PO ONCE [facility] Docusate Sodium (Docusate Sodium 100 Mg Capsule) 100 mg PO BID [facility] Enoxaparin Sodium (Enoxaparin Sodium 40 Mg/0.4 Ml Syringe) 40 mg SUBCUT Q24H [facility] Last Admin: 03/06/23 08:22 Dose: 40 mg Documented By: SHILOH Glucose (Glucose Gel 15 Gm Gel..Gram.) 15 gm PO Q15M PRN; Protocol PRN Reason: per Hypoglycemia Standing Ord. Hydromorphone HCl (Hydromorphone Hcl 0.5 Mg/0.5 Ml Syringe) 0.5 mg IVPUSH Q3H PRN; Protocol PRN Reason: Pain, Severe (Pain Scale 7-10) Last Admin: 03/06/23 12:13 Dose: 0.5 mg Documented By: MARISA Vancomycin HCl 1,000 mg/ (Sodium Chloride) 270 mls @ 270 mls/hr IV Q12H [facility] Last Infusion: 03/06/23 12:42 Dose: 0 mls/hr Documented By: MARISA Dextrose (D10) 250 mls @ 750 mls/hr IV Q15M PRN; Protocol PRN Reason: per Hypoglycemia Standing Ord. Piperacillin Sod/Tazobactam (Sod 3.375 gm/ Sodium Chloride) 50 mls @ 100 mls/hr IV Q6H [facility] Last Infusion: 03/06/23 14:35 Dose: 0 mls/hr Documented By: MARISA Lactated Ringer's (Lr) 1,000 mls @ 100 mls/hr IVCONT .Q10H [facility] Last Infusion: 03/06/23 05:57 Dose: 0 mls/hr Documented By: SAMIRA Acetaminophen (Ofirmev) 1,000 mg in 100 mls @ 400 mls/hr IV Q6H [facility] Last Infusion: 03/06/23 14:49 Dose: 0 mls/hr Documented By: MARISA Insulin Glargine (Insulin Glargine,Hum.Rec.Anlog 100 Unit/Ml 10 Ml Vial) 30 unit SUBCUT BID [facility] Last Admin: 03/06/23 08:23 Dose: 30 unit Documented By: SHILOH Insulin Human Lispro (Insulin Lispro 100 Unit/Ml 3 Ml Vial) 0 unit SUBCUT QIDACHS [facility]; Protocol Last Admin: 03/06/23 12:11 Dose: 4 unit Documented By: SHILOH Methadone HCl (Methadone Hcl 20 Mg/2 Ml Oral.Conc) 85 mg PO DAILY [facility] Last Admin: 03/06/23 09:15 Dose: 85 mg Documented By: MARISA Ondansetron HCl (Ondansetron Hcl 4 Mg/2 Ml Vial) 4 mg IVPUSH QID PRN PRN Reason: Nausea Oxycodone HCl (Oxycodone Hcl Immed Release 5 Mg Tablet) 5 mg PO Q3H PRN PRN Reason: Pain, Moderate (Pain Scale 4-6 Pharmacy Consult (Consult Rx Perform Med Rec) 1 each MISCELLANE ONCE PRN PRN Reason: Consult order Pharmacy Consult (Consult Rx Vancomycin Dosing) 1 each MISCELLANE DAILY PRN PRN Reason: Consult order Senna (Sennosides 8.6 Mg Tablet) 8.6 mg PO DAILY [facility] Last Admin: 03/06/23 12:13 Dose: Not Given Documented By: SHILOH Non-Admin Reason: Patient Refused Sodium Chloride (0.9 % Sodium Chloride Flush 3 Ml Syringe) 3 ml IVFLUSH QSHIFT [facility] Last Admin: 03/06/23 14:38 Dose: Not Given Documented By: MARISA Non-Admin Reason: IV Running Zolpidem Tartrate (Zolpidem Tartrate 5 Mg Tablet) 5 mg PO BEDTIME PRN PRN Reason: Insomnia Labs 03/06/23 06:13 03/06/23 06:13 Labs: Laboratory Results - last 24 hr 03/05/23 03/05/23 03/06/23 20:06 21:08 06:13 MCV 81.5 MCH 25.1 L MCHC 30.8 L RDW 14.0 Plt Count 465 H MPV 10.0 Absolute Nucleated RBC 0.000 Nucleated RBC % (auto) 0.0 Anion Gap Estim Creat Clear Calc Estimated GFR POC Glucose 249 H Random Glucose Calcium Random Vancomycin 14.6 L 03/06/23 03/06/23 03/06/23 06:13 07:15 11:20 MCV MCH MCHC RDW Plt Count MPV Absolute Nucleated RBC Nucleated RBC % (auto) Anion Gap 12 Estim Creat Clear Calc 135.8 Estimated GFR > 60 POC Glucose 167 H 238 H Random Glucose 102 Calcium 8.5 Random Vancomycin 03/06/23 16:01 MCV MCH MCHC RDW Plt Count MPV Absolute Nucleated RBC Nucleated RBC % (auto) Anion Gap Estim Creat Clear Calc Estimated GFR POC Glucose 133 H Random Glucose Calcium Random Vancomycin Microbiology Microbiology Results: Microbiology 03/03/23 18:29 Blood Culture - Preliminary Blood - Venous No growth after 48 hours. 03/03/23 17:41 Blood Culture - Preliminary Blood - Venous No growth after 48 hours. Assessment and Plan (1) Status post below knee amputation of right lower extremity: Status: Acute Plan 62M PMH DM, htn, mood disorder, paroxysmal vs lone afib (not on AC), hcv (treated 2009), opiate dependence, presented with malodorous right DFU Right foot ulcer due to diabetes with osteomyelitis complicated by cellulitis POD 2 s/p right BKA WBC trending down on IV vanc, zosyn for now BCx neg to date Hyperkalemia improved with lokelma DM ss, ada diet continue lantus HTN, uncontrolled ? in part pain mediated will d/c IVF continue cardizem afib, ?paroxysmal vs lone in sinus not on ac at home continue cardizem mood disorder amitryptiline opiate dependence continue methadone dvt prophylaxis - lovenox attending Dr. Hayes full code DISPO PT rec acute rehab continue hospital stay for iv abx s/p BKA and rehab placement Time Spent With Patient Time: Total time managing care of this patient today ____ minutes. Quality Stroke Does the patient have a stroke diagnosis?: No VTE Prior VTE?: No VTE Risk Level:: Medical - moderate - high VTE Device Contraindication: Treatment Not Indicated VTE Drug Contraindication: N/A - Med Ordered
[2023-03-06 20:21] LABS: Glucose, Whole Blood 144 mg/dL (60-115)
[2023-03-06] MEDS: Docusate Sodium 100 MG CAPSULE PO (20:54)
[2023-03-06] MEDS: 0.9 % Sodium Chloride Flush 3 ML SYRINGE IVFLUSH (20:54)
[2023-03-06] MEDS: Amitriptyline HCl 50 MG TABLET PO (20:54)
[2023-03-06 21:42] LABS: Vancomycin Random 15.6 mcg/mL (15-20)
--- NOTE | 2023-03-06 21:51 | HE.PHANOTE ---
Vancomycin Dosing Level 15.6 today. Continue current regimen. Next level 03/07 @ 2100. yasmeen ParadaD
[2023-03-07] VITALS: BP 156/80; PULSE 66; RESP 14; TEMP 36.7; O2SAT 98
[2023-03-07] MEDS: HYDROmorphone HCl 0.5 MG/0.5 ML SYRINGE IVPUSH ×2 (00:28→13:27)
[2023-03-07] MEDS: Acetaminophen 1,000 MG/100 ML PIGGYBACK 400 MG IV ×4 (00:29→20:31)
[2023-03-07 03:33] VITALS: BP 168/56; PULSE 64; RESP 16; TEMP 36; O2SAT 98
[2023-03-07] MEDS: Piperacillin Sodium/Tazobactam 3.375 GM in 0.9 % Sodium Chloride 50 ML IV ×3 (05:45→17:00)
[2023-03-07 07:14] LABS: Creatinine Clr Calc Pharmacy 122.9; Estimated Glomerular Filt Rate > 60
[2023-03-07 07:32] LABS: Glucose, Whole Blood 96 mg/dL (60-115)
[2023-03-07 08:16] VITALS: BP 173/82; PULSE 63; RESP 18; TEMP 36.6; O2SAT 95
[2023-03-07] MEDS: Enoxaparin Sodium 40 MG/0.4 ML SYRINGE SUBCUT (08:49)
[2023-03-07] MEDS: Docusate Sodium 100 MG CAPSULE PO ×2 (08:49→20:32)
[2023-03-07] MEDS: dilTIAZem HCL CD 120 MG CAP.ER.DEG PO (08:49)
[2023-03-07] MEDS: Sennosides 8.6 MG TABLET PO (08:49)
[2023-03-07] MEDS: methADONE HCl 20 MG/2 ML ORAL.CONC 85 MG PO (08:50)
[2023-03-07] MEDS: Insulin Glargine,Hum.rec.anlog 100 UNIT/ML 10 ML VIAL 30 UNIT SUBCUT (08:50)
--- NOTE | 2023-03-07 10:27 | PM.PNGS ---
Subjective Subjective Date of Service: 03/07/23 Interval history: Pain has improved. Has not required IV narcotics today. Continues to participate with PT. Physical Exam Vital Signs: Vital Signs: Last Vital Signs Temp 97.8 F 03/07/23 08:16 Pulse 63 03/07/23 08:16 Resp 18 03/07/23 08:16 BP 173/82 H 03/07/23 08:16 Pulse Ox 95 03/07/23 08:16 O2 Del Method Room Air 03/07/23 08:16 BMI result Body Mass Index 31.6 Const: General: comfortable, no acute distress and alert Orientation/consciousness: patient oriented x3 Resp: Effort & Inspection: normal respiratory effort Skin: General skin exam: no rashes or lesions noted Neuro: General: patient oriented x3 Extrem: Other: right BKA- edematous at staple line, carleen intact, no erythema, flap viable. Objective Data Active Medications Amitriptyline HCl (Amitriptyline Hcl 50 Mg Tablet) 50 mg PO BEDTIME [facility] Last Admin: 03/06/23 20:54 Dose: 50 mg Documented By: PATRICK Diltiazem HCl (Diltiazem Hcl Cd 120 Mg Cap.Er.Deg) 120 mg PO DAILY [facility]; Protocol Last Admin: 03/07/23 08:49 Dose: 120 mg Documented By: MITALI Diphenhydramine HCl (Diphenhydramine Hcl 25 Mg Capsule) 50 mg PO ONCE [facility] Docusate Sodium (Docusate Sodium 100 Mg Capsule) 100 mg PO BID [facility] Last Admin: 03/07/23 08:49 Dose: 100 mg Documented By: MITALI Enoxaparin Sodium (Enoxaparin Sodium 40 Mg/0.4 Ml Syringe) 40 mg SUBCUT Q24H [facility] Last Admin: 03/07/23 08:49 Dose: 40 mg Documented By: MITALI Glucose (Glucose Gel 15 Gm Gel..Gram.) 15 gm PO Q15M PRN; Protocol PRN Reason: per Hypoglycemia Standing Ord. Hydromorphone HCl (Hydromorphone Hcl 0.5 Mg/0.5 Ml Syringe) 0.5 mg IVPUSH Q3H PRN; Protocol PRN Reason: Pain, Severe (Pain Scale 7-10) Last Admin: 03/07/23 00:28 Dose: 0.5 mg Documented By: PATRICK Vancomycin HCl 1,000 mg/ (Sodium Chloride) 270 mls @ 270 mls/hr IV Q12H [facility] Last Infusion: 03/06/23 23:39 Dose: 0 mls/hr Documented By: PATRICK Dextrose (D10) 250 mls @ 750 mls/hr IV Q15M PRN; Protocol PRN Reason: per Hypoglycemia Standing Ord. Piperacillin Sod/Tazobactam (Sod 3.375 gm/ Sodium Chloride) 50 mls @ 100 mls/hr IV Q6H [facility] Last Infusion: 03/07/23 06:25 Dose: 0 mls/hr Documented By: PATRICK Acetaminophen (Ofirmev) 1,000 mg in 100 mls @ 400 mls/hr IV Q6H [facility] Last Infusion: 03/07/23 06:40 Dose: 0 mls/hr Documented By: PATRICK Insulin Glargine (Insulin Glargine,Hum.Rec.Anlog 100 Unit/Ml 10 Ml Vial) 30 unit SUBCUT BID [facility] Last Admin: 03/07/23 08:50 Dose: 30 unit Documented By: MITALI Insulin Human Lispro (Insulin Lispro 100 Unit/Ml 3 Ml Vial) 0 unit SUBCUT QIDACHS [facility]; Protocol Last Admin: 03/07/23 07:38 Dose: Not Given Documented By: MITALI Non-Admin Reason: No Insulin Coverage Methadone HCl (Methadone Hcl 20 Mg/2 Ml Oral.Conc) 85 mg PO DAILY [facility] Last Admin: 03/07/23 08:50 Dose: 85 mg Documented By: MITALI Ondansetron HCl (Ondansetron Hcl 4 Mg/2 Ml Vial) 4 mg IVPUSH QID PRN PRN Reason: Nausea Oxycodone HCl (Oxycodone Hcl Immed Release 5 Mg Tablet) 5 mg PO Q3H PRN PRN Reason: Pain, Moderate (Pain Scale 4-6 Pharmacy Consult (Consult Rx Perform Med Rec) 1 each MISCELLANE ONCE PRN PRN Reason: Consult order Pharmacy Consult (Consult Rx Vancomycin Dosing) 1 each MISCELLANE DAILY PRN PRN Reason: Consult order Polyethylene Glycol (Polyethylene Glycol 3350 17 Gm Powd.Pack) 17 gm PO DAILY PRN PRN Reason: Constipation Senna (Sennosides 8.6 Mg Tablet) 8.6 mg PO DAILY [facility] Last Admin: 03/07/23 08:49 Dose: 8.6 mg Documented By: MITALI Sodium Chloride (0.9 % Sodium Chloride Flush 3 Ml Syringe) 3 ml IVFLUSH QSHIFT [facility] Last Admin: 03/07/23 07:09 Dose: Not Given Documented By: MITALI Non-Admin Reason: IV Running Zolpidem Tartrate (Zolpidem Tartrate 5 Mg Tablet) 5 mg PO BEDTIME PRN PRN Reason: Insomnia Labs 03/06/23 06:13 03/07/23 05:51 Labs: Laboratory Results - last 24 hr 03/06/23 03/06/23 03/06/23 11:20 16:01 20:12 Estim Creat Clear Calc Estimated GFR POC Glucose 238 H 133 H 144 H Random Vancomycin 03/06/23 03/07/23 03/07/23 21:13 05:51 07:28 Estim Creat Clear Calc 122.9 Estimated GFR > 60 POC Glucose 96 Random Vancomycin 15.6 Procedures Date of Service Date of Service: 03/07/23 Progress Note: A&P Assessment and plan (1) Status post below knee amputation of right lower extremity: Status: Acute Plan POD #3 following right below-knee amputation. BKA site clean and remains well approximated with viable flap, some edema. Clean dressings applied with fluffs, abd, kerlix and sabine wrap. Encouraged elevation of right stump to help reduce edema. Cont PT. Likely ready tomorrow for discharge to acute rehab. Fu in 1 week in office with Dr. Cannon. Time Spent With Patient Time: Total time managing care of this patient today ____ minutes. Quality Stroke Does the patient have a stroke diagnosis?: No VTE Prior VTE?: No VTE Risk Level:: Medical - moderate - high VTE Device Contraindication: Treatment Not Indicated VTE Drug Contraindication: N/A - Med Ordered
[2023-03-07] MEDS: vancomycin HCL 1,000 MG in 0.9 % Sodium Chloride 250 ML 270 MG IV ×2 (10:46→23:14)
[2023-03-07 11:20] LABS: Glucose, Whole Blood 188 mg/dL (60-115)
--- NOTE | 2023-03-07 11:47 | P.PNIM_ITS ---
Subjective Subjective Date of Service: 03/07/23 Interval History: seen and examined this morning follow up for diabetic foot wound s/p amputation bp remains high, pain under better control, reporting constipation Review of Systems Review of Systems: Yes all other systems are reviewed and are negative Constitutional Constitutional: Denies chills and Denies fever(s) ENT Ears, Nose, Mouth, and Throat: Denies dizziness Cardiovascular Cardiovascular: Denies chest pain, Denies palpitations and Denies dyspnea Respiratory Respiratory: Denies cough and Denies dyspnea Gastrointestinal Gastrointestinal: Denies abdominal pain, Reports constipation, Denies nausea and Denies vomiting Neurologic Neurologic: Denies dizziness Endocrine Endocrine: Denies palpitations Physical Exam Vital Signs: Vital Signs: Last Vital Signs Temp 97.8 F 03/07/23 08:16 Pulse 63 03/07/23 08:16 Resp 18 03/07/23 08:16 BP 173/82 H 03/07/23 08:16 Pulse Ox 95 03/07/23 08:16 O2 Del Method Room Air 03/07/23 08:16 BMI result Body Mass Index 31.6 Const: General: cooperative, comfortable, alert and awake Nutritional Appearance: average body habitus Orientation/consciousness: patient oriented x3 Resp: Effort & Inspection: normal respiratory effort, able to speak in complete sentences, no respiratory distress and no use of accessory muscles Auscultation: clear to auscultation bilaterally Cardio: Rate: regular rate GI: Inspection: No distended Palpation (GI): Soft to palpation and nontender Skin: Other: right BKA - stump with c/d/i dressing, not removed left transmetatarsal amputation Neuro: General: patient oriented x3 and CN's II-XI intact bilaterally Objective Data Active Medications Amitriptyline HCl (Amitriptyline Hcl 50 Mg Tablet) 50 mg PO BEDTIME [facility] Last Admin: 03/06/23 20:54 Dose: 50 mg Documented By: PATRICK Diltiazem HCl (Diltiazem Hcl Cd 120 Mg Cap.Er.Deg) 120 mg PO DAILY [facility]; Protocol Last Admin: 03/07/23 08:49 Dose: 120 mg Documented By: MITALI Diphenhydramine HCl (Diphenhydramine Hcl 25 Mg Capsule) 50 mg PO ONCE [facility] Docusate Sodium (Docusate Sodium 100 Mg Capsule) 100 mg PO BID [facility] Last Admin: 03/07/23 08:49 Dose: 100 mg Documented By: MITALI Enoxaparin Sodium (Enoxaparin Sodium 40 Mg/0.4 Ml Syringe) 40 mg SUBCUT Q24H [facility] Last Admin: 03/07/23 08:49 Dose: 40 mg Documented By: MITALI Glucose (Glucose Gel 15 Gm Gel..Gram.) 15 gm PO Q15M PRN; Protocol PRN Reason: per Hypoglycemia Standing Ord. Hydromorphone HCl (Hydromorphone Hcl 0.5 Mg/0.5 Ml Syringe) 0.5 mg IVPUSH Q3H PRN; Protocol PRN Reason: Pain, Severe (Pain Scale 7-10) Last Admin: 03/07/23 00:28 Dose: 0.5 mg Documented By: PATRICK Vancomycin HCl 1,000 mg/ (Sodium Chloride) 270 mls @ 270 mls/hr IV Q12H [facility] Last Admin: 03/07/23 10:46 Dose: 270 mls/hr Documented By: MITALI Dextrose (D10) 250 mls @ 750 mls/hr IV Q15M PRN; Protocol PRN Reason: per Hypoglycemia Standing Ord. Piperacillin Sod/Tazobactam (Sod 3.375 gm/ Sodium Chloride) 50 mls @ 100 mls/hr IV Q6H [facility] Last Infusion: 03/07/23 06:25 Dose: 0 mls/hr Documented By: PATRICK Acetaminophen (Ofirmev) 1,000 mg in 100 mls @ 400 mls/hr IV Q6H [facility] Last Infusion: 03/07/23 06:40 Dose: 0 mls/hr Documented By: PATRICK Insulin Glargine (Insulin Glargine,Hum.Rec.Anlog 100 Unit/Ml 10 Ml Vial) 30 unit SUBCUT BID [facility] Last Admin: 03/07/23 08:50 Dose: 30 unit Documented By: MITALI Insulin Human Lispro (Insulin Lispro 100 Unit/Ml 3 Ml Vial) 0 unit SUBCUT QIDACHS [facility]; Protocol Last Admin: 03/07/23 07:38 Dose: Not Given Documented By: MITALI Non-Admin Reason: No Insulin Coverage Methadone HCl (Methadone Hcl 20 Mg/2 Ml Oral.Conc) 85 mg PO DAILY [facility] Last Admin: 03/07/23 08:50 Dose: 85 mg Documented By: MITALI Ondansetron HCl (Ondansetron Hcl 4 Mg/2 Ml Vial) 4 mg IVPUSH QID PRN PRN Reason: Nausea Oxycodone HCl (Oxycodone Hcl Immed Release 5 Mg Tablet) 5 mg PO Q3H PRN PRN Reason: Pain, Moderate (Pain Scale 4-6 Pharmacy Consult (Consult Rx Perform Med Rec) 1 each MISCELLANE ONCE PRN PRN Reason: Consult order Pharmacy Consult (Consult Rx Vancomycin Dosing) 1 each MISCELLANE DAILY PRN PRN Reason: Consult order Polyethylene Glycol (Polyethylene Glycol 3350 17 Gm Powd.Pack) 17 gm PO DAILY PRN PRN Reason: Constipation Senna (Sennosides 8.6 Mg Tablet) 8.6 mg PO DAILY [facility] Last Admin: 03/07/23 08:49 Dose: 8.6 mg Documented By: MITALI Sodium Chloride (0.9 % Sodium Chloride Flush 3 Ml Syringe) 3 ml IVFLUSH QSHIFT [facility] Last Admin: 03/07/23 07:09 Dose: Not Given Documented By: MITALI Non-Admin Reason: IV Running Zolpidem Tartrate (Zolpidem Tartrate 5 Mg Tablet) 5 mg PO BEDTIME PRN PRN Reason: Insomnia Labs 03/06/23 06:13 03/07/23 05:51 Labs: Laboratory Results - last 24 hr 03/06/23 03/06/23 03/06/23 16:01 20:12 21:13 Estim Creat Clear Calc Estimated GFR POC Glucose 133 H 144 H Random Vancomycin 15.6 03/07/23 03/07/23 03/07/23 05:51 07:28 11:11 Estim Creat Clear Calc 122.9 Estimated GFR > 60 POC Glucose 96 188 H Random Vancomycin Assessment and Plan (1) Status post below knee amputation of right lower extremity: Status: Acute (2) Hypertension: Status: Acute Plan 62M PMH DM, htn, mood disorder, paroxysmal vs lone afib (not on AC), hcv (treat ed 2009), opiate dependence, presented with malodorous right DFU Right foot ulcer due to diabetes with osteomyelitis complicated by cellulitis POD #3 s/p right BKA WBC trending down continue IV vanc, zosyn for now, likely one more day BCx neg to date Hyperkalemia improved with lokelma DM ss, ada diet continue lantus HTN, uncontrolled previously on lisinopril, will resume 5 mg daily, can up-titrate as needed continue cardizem afib, ?paroxysmal vs lone in sinus not on ac at home continue cardizem mood disorder amitryptiline opiate dependence continue methadone dvt prophylaxis - kassie attending Dr. Freddy MITCHELL PT rec acute rehab, anticipate discharge to rehab tomorrow continue hospital stay for iv abx s/p BKA and rehab placement Time Spent With Patient Time: Total time managing care of this patient today ____ minutes. Quality Stroke Does the patient have a stroke diagnosis?: No VTE Prior VTE?: No VTE Risk Level:: Medical - moderate - high VTE Device Contraindication: Treatment Not Indicated VTE Drug Contraindication: N/A - Med Ordered
[2023-03-07] MEDS: lisinopriL 5 MG TABLET PO (12:02)
[2023-03-07] MEDS: Insulin Lispro 100 UNIT/ML 3 ML VIAL SUBCUT ×2 (12:02→17:00)
[2023-03-07 15:56] VITALS: BP 170/76; PULSE 66; RESP 18; TEMP 36; O2SAT 98
[2023-03-07 16:26] LABS: Glucose, Whole Blood 174 mg/dL (60-115)
[2023-03-07 20:00] VITALS: BP 182/81; PULSE 76; RESP 20; TEMP 36.8; O2SAT 98
[2023-03-07] MEDS: Amitriptyline HCl 50 MG TABLET PO (20:32)
[2023-03-07 21:23] LABS: Vancomycin Trough 16.8 mcg/mL (10.0-20.0)
--- NOTE | 2023-03-07 21:33 | HE.PHANOTE ---
Vancomycin Dosing Level therapeutic at 16.8. Continue current regimen, next level scheduled 03/09/23 @ 0900.
[2023-03-07 22:07] LABS: Glucose, Whole Blood 54 mg/dL (60-115)
[2023-03-07 22:37] LABS: Glucose, Whole Blood 136 mg/dL (60-115)
[2023-03-07] MEDS: 0.9 % Sodium Chloride Flush 3 ML SYRINGE IVFLUSH (23:23)
[2023-03-08] MEDS: Piperacillin Sodium/Tazobactam 3.375 GM in 0.9 % Sodium Chloride 50 ML IV ×3 (00:29→13:21)
[2023-03-08] MEDS: Acetaminophen 1,000 MG/100 ML PIGGYBACK 400 MG IV ×3 (02:41→20:45)
--- NOTE | 2023-03-08 03:07 | PC.NURSE ---
poc at 2203 =54 pt received snack with juice recheck poc= 136 pt asymptomatic just encouraged to have hs snack in the future.
[2023-03-08 03:42] VITALS: BP 181/91; PULSE 60; RESP 18; TEMP 36.7; O2SAT 96
[2023-03-08 05:25] LABS: Creatinine Clr Calc Pharmacy 98.3; Estimated Glomerular Filt Rate > 60
[2023-03-08] MEDS: Acetaminophen 1,000 MG/100 ML PIGGYBACK 40 MG IV (06:23)
[2023-03-08 07:39] VITALS: BP 175/90; PULSE 64; RESP 18; TEMP 36; O2SAT 98
[2023-03-08 07:41] LABS: Glucose, Whole Blood 126 mg/dL (60-115)
[2023-03-08] MEDS: HYDROmorphone HCl 0.5 MG/0.5 ML SYRINGE IVPUSH (08:00)
[2023-03-08] MEDS: polyethylene glycoL 3350 17 GM POWD.PACK PO (08:01)
[2023-03-08] MEDS: Sennosides 8.6 MG TABLET PO (08:01)
[2023-03-08] MEDS: dilTIAZem HCL CD 120 MG CAP.ER.DEG PO (08:01)
[2023-03-08] MEDS: Enoxaparin Sodium 40 MG/0.4 ML SYRINGE SUBCUT (08:01)
[2023-03-08] MEDS: Docusate Sodium 100 MG CAPSULE PO (08:01)
[2023-03-08] MEDS: lisinopriL 5 MG TABLET PO (08:01)
[2023-03-08] MEDS: methADONE HCl 20 MG/2 ML ORAL.CONC 85 MG PO (08:01)
[2023-03-08] MEDS: 0.9 % Sodium Chloride Flush 3 ML SYRINGE IVFLUSH ×3 (08:02→20:49)
--- NOTE | 2023-03-08 08:37 | PM.PNGS ---
Subjective Subjective Date of Service: 03/08/23 Interval history: Patient with no new complaints. Does complain of stump pain. Physical Exam Vital Signs: Vital Signs: Last Vital Signs Temp 96.8 F 03/08/23 07:39 Pulse 64 03/08/23 07:39 Resp 18 03/08/23 07:39 BP 175/90 H 03/08/23 07:39 Pulse Ox 98 03/08/23 07:39 O2 Del Method Room Air 03/08/23 07:39 BMI result Body Mass Index 31.6 Skin: Other: Warm, dry, no rash Extrem: Other: Dressings changed to BKA wound. Incision remains intact. There is a small amount of serous discharge noted from the mid incision otherwise wounds are clean. Clean compressive dressing reapplied. Objective Data Active Medications Amitriptyline HCl (Amitriptyline Hcl 50 Mg Tablet) 50 mg PO BEDTIME [facility] Last Admin: 03/07/23 20:32 Dose: 50 mg Documented By: DONTAE Diltiazem HCl (Diltiazem Hcl Cd 120 Mg Cap.Er.Deg) 120 mg PO DAILY [facility]; Protocol Last Admin: 03/08/23 08:01 Dose: 120 mg Documented By: MITALI Diphenhydramine HCl (Diphenhydramine Hcl 25 Mg Capsule) 50 mg PO ONCE [facility] Docusate Sodium (Docusate Sodium 100 Mg Capsule) 100 mg PO BID [facility] Last Admin: 03/08/23 08:01 Dose: 100 mg Documented By: MITALI Enoxaparin Sodium (Enoxaparin Sodium 40 Mg/0.4 Ml Syringe) 40 mg SUBCUT Q24H [facility] Last Admin: 03/08/23 08:01 Dose: 40 mg Documented By: MITALI Glucose (Glucose Gel 15 Gm Gel..Gram.) 15 gm PO Q15M PRN; Protocol PRN Reason: per Hypoglycemia Standing Ord. Hydromorphone HCl (Hydromorphone Hcl 0.5 Mg/0.5 Ml Syringe) 0.5 mg IVPUSH Q3H PRN; Protocol PRN Reason: Pain, Severe (Pain Scale 7-10) Last Admin: 03/08/23 08:00 Dose: 0.5 mg Documented By: MITALI Vancomycin HCl 1,000 mg/ (Sodium Chloride) 270 mls @ 270 mls/hr IV Q12H [facility] Last Infusion: 04/28/23 00:34 Dose: 0 mls/hr Documented By: DONTAE Dextrose (D10) 250 mls @ 750 mls/hr IV Q15M PRN; Protocol PRN Reason: per Hypoglycemia Standing Ord. Piperacillin Sod/Tazobactam (Sod 3.375 gm/ Sodium Chloride) 50 mls @ 100 mls/hr IV Q6H [facility] Last Infusion: 03/08/23 06:29 Dose: 0 mls/hr Documented By: DONTAE Acetaminophen (Ofirmev) 1,000 mg in 100 mls @ 400 mls/hr IV Q6H [facility] Last Admin: 03/08/23 06:23 Dose: 40 mls/hr Documented By: DONTAE Insulin Glargine (Insulin Glargine,Hum.Rec.Anlog 100 Unit/Ml 10 Ml Vial) 30 unit SUBCUT BID [facility] Last Admin: 03/07/23 22:04 Dose: Not Given Documented By: DONTAE Non-Admin Reason: No Insulin Coverage Insulin Human Lispro (Insulin Lispro 100 Unit/Ml 3 Ml Vial) 0 unit SUBCUT QIDACHS [facility]; Protocol Last Admin: 03/08/23 07:44 Dose: Not Given Documented By: MITALI Non-Admin Reason: No Insulin Coverage Lisinopril (Lisinopril 5 Mg Tablet) 5 mg PO DAILY [facility]; Protocol Last Admin: 03/08/23 08:01 Dose: 5 mg Documented By: MITALI Methadone HCl (Methadone Hcl 20 Mg/2 Ml Oral.Conc) 85 mg PO DAILY [facility] Last Admin: 03/08/23 08:01 Dose: 85 mg Documented By: MITALI Ondansetron HCl (Ondansetron Hcl 4 Mg/2 Ml Vial) 4 mg IVPUSH QID PRN PRN Reason: Nausea Oxycodone HCl (Oxycodone Hcl Immed Release 5 Mg Tablet) 5 mg PO Q3H PRN PRN Reason: Pain, Moderate (Pain Scale 4-6 Pharmacy Consult (Consult Rx Perform Med Rec) 1 each MISCELLANE ONCE PRN PRN Reason: Consult order Pharmacy Consult (Consult Rx Vancomycin Dosing) 1 each MISCELLANE DAILY PRN PRN Reason: Consult order Polyethylene Glycol (Polyethylene Glycol 3350 17 Gm Powd.Pack) 17 gm PO DAILY [facility] Last Admin: 03/08/23 08:01 Dose: 17 gm Documented By: MIATLI Senna (Sennosides 8.6 Mg Tablet) 8.6 mg PO DAILY [facility] Last Admin: 03/08/23 08:01 Dose: 8.6 mg Documented By: MITALI Sodium Chloride (0.9 % Sodium Chloride Flush 3 Ml Syringe) 3 ml IVFLUSH QSHIFT [facility] Last Admin: 03/08/23 08:02 Dose: 3 ml Documented By: MITALI Zolpidem Tartrate (Zolpidem Tartrate 5 Mg Tablet) 5 mg PO BEDTIME PRN PRN Reason: Insomnia Labs 03/06/23 06:13 03/08/23 04:43 Labs: Laboratory Results - last 24 hr 03/07/23 03/07/23 03/07/23 11:11 16:22 20:53 Estim Creat Clear Calc Estimated GFR POC Glucose 188 H 174 H Vancomycin Trough 16.8 03/07/23 03/07/23 03/08/23 22:03 22:32 04:43 Estim Creat Clear Calc 98.3 Estimated GFR > 60 POC Glucose 54 L* 136 H Vancomycin Trough 03/08/23 07:36 Estim Creat Clear Calc Estimated GFR POC Glucose 126 H Vancomycin Trough Procedures Date of Service Date of Service: 03/08/23 Progress Note: A&P Assessment and plan (1) Status post below knee amputation of right lower extremity: Status: Acute Plan 62-year-old male patient status post amputation right below-knee. Wounds are clean and intact. Dressings will need to be changed on a daily basis with fluff gauze, ABD, Kerlix, and Quentin bandage. Dressing should be compressive to reduce edema at the stump. I will see him in the office in approximately 2 weeks. Oral antibiotics would be recommended for the next 1 week. Time Spent With Patient Time: Total time managing care of this patient today ____ minutes. Quality Stroke Does the patient have a stroke diagnosis?: No VTE Prior VTE?: No VTE Risk Level:: Medical - moderate - high VTE Device Contraindication: Treatment Not Indicated VTE Drug Contraindication: N/A - Med Ordered
[2023-03-08 10:41] LABS: COVID-19 Test Negative (Negative); IDNOW Serial# BCCEAD1C
[2023-03-08 11:16] VITALS: BP 175/90; PULSE 64; O2SAT 98
[2023-03-08 11:23] LABS: Glucose, Whole Blood 168 mg/dL (60-115)
[2023-03-08] MEDS: vancomycin HCL 1,000 MG in 0.9 % Sodium Chloride 250 ML 270 MG IV (12:18)
[2023-03-08] MEDS: Insulin Lispro 100 UNIT/ML 3 ML VIAL SUBCUT ×2 (12:19→17:31)
--- NOTE | 2023-03-08 14:37 | HO.PM.IMPN ---
Subjective Subjective Date of Service: 03/08/23 Interval History: seen and examined this morning Follow-up for diabetic foot wound status post BKA Pain under adequate control Blood sugar low last night, patient asymptomatic. Review of Systems Review of Systems: Yes all other systems are reviewed and are negative Constitutional Constitutional: Denies chills and Denies fever(s) ENT Ears, Nose, Mouth, and Throat: Denies dizziness Cardiovascular Cardiovascular: Denies chest pain, Denies palpitations and Denies dyspnea Respiratory Respiratory: Denies cough and Denies dyspnea Gastrointestinal Gastrointestinal: Denies abdominal pain, Denies nausea and Denies vomiting Neurologic Neurologic: Denies dizziness Endocrine Endocrine: Denies palpitations Physical Exam Vital Signs: Vital Signs: Last Vital Signs Temp 96.8 F 03/08/23 07:39 Pulse 64 03/08/23 11:16 Resp 18 03/08/23 07:39 BP 175/90 H 03/08/23 11:16 Pulse Ox 98 03/08/23 11:16 O2 Del Method Room Air 03/08/23 07:39 BMI result Body Mass Index 31.6 Const: General: cooperative, comfortable, alert and awake Nutritional Appearance: average body habitus Orientation/consciousness: patient oriented x3 Resp: Effort & Inspection: normal respiratory effort, able to speak in complete sentences, no respiratory distress and no use of accessory muscles Auscultation: clear to auscultation bilaterally Cardio: Rate: regular rate GI: Inspection: No distended Palpation (GI): Soft to palpation and nontender Skin: Other: right BKA - stump with c/d/i dressing, not removed left transmetatarsal amputation Neuro: General: patient oriented x3 and CN's II-XI intact bilaterally Extrem: General: Yes no pedal edema Objective Data Active Medications Amitriptyline HCl (Amitriptyline Hcl 50 Mg Tablet) 50 mg PO BEDTIME [facility] Last Admin: 03/07/23 20:32 Dose: 50 mg Documented By: DONTAE Diltiazem HCl (Diltiazem Hcl Cd 120 Mg Cap.Er.Deg) 120 mg PO DAILY [facility]; Protocol Last Admin: 03/08/23 08:01 Dose: 120 mg Documented By: MITALI Diphenhydramine HCl (Diphenhydramine Hcl 25 Mg Capsule) 50 mg PO ONCE [facility] Docusate Sodium (Docusate Sodium 100 Mg Capsule) 100 mg PO BID [facility] Last Admin: 03/08/23 08:01 Dose: 100 mg Documented By: MITALI Enoxaparin Sodium (Enoxaparin Sodium 40 Mg/0.4 Ml Syringe) 40 mg SUBCUT Q24H [facility] Last Admin: 03/08/23 08:01 Dose: 40 mg Documented By: MITALI Glucose (Glucose Gel 15 Gm Gel..Gram.) 15 gm PO Q15M PRN; Protocol PRN Reason: per Hypoglycemia Standing Ord. Hydromorphone HCl (Hydromorphone Hcl 0.5 Mg/0.5 Ml Syringe) 0.5 mg IVPUSH Q3H PRN; Protocol PRN Reason: Pain, Severe (Pain Scale 7-10) Last Admin: 03/08/23 08:00 Dose: 0.5 mg Documented By: MITALI Vancomycin HCl 1,000 mg/ (Sodium Chloride) 270 mls @ 270 mls/hr IV Q12H [facility] Last Infusion: 03/08/23 13:23 Dose: 0 mls/hr Documented By: MITALI Dextrose (D10) 250 mls @ 750 mls/hr IV Q15M PRN; Protocol PRN Reason: per Hypoglycemia Standing Ord. Piperacillin Sod/Tazobactam (Sod 3.375 gm/ Sodium Chloride) 50 mls @ 100 mls/hr IV Q6H [facility] Last Infusion: 03/08/23 13:55 Dose: 0 mls/hr Documented By: MITALI Acetaminophen (Ofirmev) 1,000 mg in 100 mls @ 400 mls/hr IV Q6H [facility] Last Infusion: 03/08/23 14:27 Dose: 0 mls/hr Documented By: MITALI Insulin Glargine (Insulin Glargine,Hum.Rec.Anlog 100 Unit/Ml 10 Ml Vial) 25 unit SUBCUT BID [facility] Insulin Human Lispro (Insulin Lispro 100 Unit/Ml 3 Ml Vial) 0 unit SUBCUT QIDACHS [facility]; Protocol Last Admin: 03/08/23 12:19 Dose: 2 unit Documented By: MITALI Lisinopril (Lisinopril 5 Mg Tablet) 5 mg PO DAILY [facility]; Protocol Last Admin: 03/08/23 08:01 Dose: 5 mg Documented By: MITALI Methadone HCl (Methadone Hcl 20 Mg/2 Ml Oral.Conc) 85 mg PO DAILY [facility] Last Admin: 03/08/23 08:01 Dose: 85 mg Documented By: MITALI Ondansetron HCl (Ondansetron Hcl 4 Mg/2 Ml Vial) 4 mg IVPUSH QID PRN PRN Reason: Nausea Oxycodone HCl (Oxycodone Hcl Immed Release 5 Mg Tablet) 5 mg PO Q3H PRN PRN Reason: Pain, Moderate (Pain Scale 4-6 Pharmacy Consult (Consult Rx Perform Med Rec) 1 each MISCELLANE ONCE PRN PRN Reason: Consult order Pharmacy Consult (Consult Rx Vancomycin Dosing) 1 each MISCELLANE DAILY PRN PRN Reason: Consult order Polyethylene Glycol (Polyethylene Glycol 3350 17 Gm Powd.Pack) 17 gm PO DAILY [facility] Last Admin: 03/08/23 08:01 Dose: 17 gm Documented By: MITALI Senna (Sennosides 8.6 Mg Tablet) 8.6 mg PO DAILY [facility] Last Admin: 03/08/23 08:01 Dose: 8.6 mg Documented By: MITALI Sodium Chloride (0.9 % Sodium Chloride Flush 3 Ml Syringe) 3 ml IVFLUSH QSHIFT [facility] Last Admin: 03/08/23 08:02 Dose: 3 ml Documented By: MITALI Zolpidem Tartrate (Zolpidem Tartrate 5 Mg Tablet) 5 mg PO BEDTIME PRN PRN Reason: Insomnia Labs 03/06/23 06:13 03/08/23 04:43 Labs: Laboratory Results - last 24 hr 03/07/23 03/07/23 03/07/23 16:22 20:53 22:03 Estim Creat Clear Calc Estimated GFR POC Glucose 174 H 54 L* Vancomycin Trough 16.8 COVID-19 ([facility]) COVID-19 Clin Com 03/07/23 03/08/23 03/08/23 22:32 04:43 07:36 Estim Creat Clear Calc 98.3 Estimated GFR > 60 POC Glucose 136 H 126 H Vancomycin Trough COVID-19 ([facility]) COVID-19 Clin Com 03/08/23 03/08/23 09:52 11:19 Estim Creat Clear Calc Estimated GFR POC Glucose 168 H Vancomycin Trough COVID-19 ([facility]) Negative COVID-19 Clin Com See Note Assessment and Plan (1) Status post below knee amputation of right lower extremity: Status: Acute (2) Hypertension: Status: Acute Plan 62M PMH DM, htn, mood disorder, paroxysmal vs lone afib (not on AC), hcv (treated 2009), opiate dependence, presented with malodorous right DFU Right foot ulcer due to diabetes with osteomyelitis complicated by cellulitis POD #4 s/p right BKA WBC trending down initially treated with IV vanc, zosyn , will transition to po abx BCx neg to date Hyperkalemia improved with lokelma DM ss, ada diet POC 50s last night, eating well will decrease dose of lantus HTN, uncontrolled previously on lisinopril, will resume 5 mg daily, can up-titrate as needed continue cardizem afib, ?paroxysmal vs lone in sinus not on ac at home continue cardizem mood disorder amitryptiline opiate dependence continue methadone dvt prophylaxis - kassie attending Dr. Freddy MITCHELL PT rec acute rehab - insurance has denied authorization, CM looking for STR bed at this time continue hospital stay for placement Time Spent With Patient Time: Total time managing care of this patient today ____ minutes. Quality Stroke Does the patient have a stroke diagnosis?: No VTE Prior VTE?: No VTE Risk Level:: Medical - moderate - high VTE Device Contraindication: Treatment Not Indicated VTE Drug Contraindication: N/A - Med Ordered
--- NOTE | 2023-03-08 15:38 | MHC.CM.PN ---
Per MD rounds Patient ready to discharge. He received a bed offer pending authorization. [facility] declined to authorize acute rehab for BKA. Plan B, STR . Additional referrals have been sent. 13 referrals have been sent. [facility] is following. They do not have a bed to offer today. DP STR via BLS.
[2023-03-08 15:45] VITALS: BP 162/80; PULSE 66; RESP 20; TEMP 36.2; O2SAT 98
[2023-03-08 16:17] LABS: Glucose, Whole Blood 176 mg/dL (60-115)
[2023-03-08 19:30] VITALS: BP 150/69; PULSE 71; RESP 18; TEMP 36.6; O2SAT 96
[2023-03-08] MEDS: Amitriptyline HCl 50 MG TABLET PO (20:44)
[2023-03-08] MEDS: Amoxicillin/Potassium Clav 875 MG TABLET PO (20:44)
[2023-03-08 21:00] LABS: Glucose, Whole Blood 140 mg/dL (60-115)
[2023-03-08 21:25] LABS: Vancomycin Random 17.5 mcg/mL (15-20)
[2023-03-09] VITALS (7 sets, daily range): BP systolic 152–184; BP diastolic 81–88; PULSE 65–76; RESP 16–18; TEMP 36.1–36.7; O2SAT 96–97
[2023-03-09] MEDS: Acetaminophen 1,000 MG/100 ML PIGGYBACK 400 MG IV ×2 (01:23→06:15)
[2023-03-09] MEDS: methADONE HCl 20 MG/2 ML ORAL.CONC 85 MG PO (07:02)
[2023-03-09] MEDS: polyethylene glycoL 3350 17 GM POWD.PACK PO (07:04)
[2023-03-09] MEDS: lisinopriL 5 MG TABLET PO (07:05)
[2023-03-09] MEDS: Sennosides 8.6 MG TABLET PO (07:05)
[2023-03-09] MEDS: dilTIAZem HCL CD 120 MG CAP.ER.DEG PO (07:05)
[2023-03-09] MEDS: Amoxicillin/Potassium Clav 875 MG TABLET PO ×2 (07:05→23:09)
[2023-03-09] MEDS: Enoxaparin Sodium 40 MG/0.4 ML SYRINGE SUBCUT (07:06)
[2023-03-09] MEDS: Docusate Sodium 100 MG CAPSULE PO (07:06)
[2023-03-09] MEDS: 0.9 % Sodium Chloride Flush 3 ML SYRINGE IVFLUSH ×3 (07:06→20:00)
[2023-03-09 07:41] LABS: Glucose, Whole Blood 136 mg/dL (60-115)
[2023-03-09 11:30] LABS: Glucose, Whole Blood 194 mg/dL (60-115)
[2023-03-09] MEDS: Insulin Lispro 100 UNIT/ML 3 ML VIAL SUBCUT ×3 (11:38→23:09)
--- NOTE | 2023-03-09 12:04 | HO.PM.IMPN ---
Subjective Subjective Date of Service: 03/09/23 Interval History: seen and examined this morning Follow-up for diabetic foot wound status post BKA Pain under adequate control Review of Systems Review of Systems: Yes all other systems are reviewed and are negative Constitutional Constitutional: Denies chills and Denies fever(s) ENT Ears, Nose, Mouth, and Throat: Denies dizziness Cardiovascular Cardiovascular: Denies chest pain, Denies palpitations and Denies dyspnea Respiratory Respiratory: Denies cough and Denies dyspnea Gastrointestinal Gastrointestinal: Denies abdominal pain, Denies nausea and Denies vomiting Neurologic Neurologic: Denies dizziness Endocrine Endocrine: Denies palpitations Physical Exam Vital Signs: Vital Signs: Last Vital Signs Temp 98.0 F 03/09/23 08:11 Pulse 68 03/09/23 08:11 Resp 18 03/09/23 08:11 BP 182/84 H 03/09/23 08:11 Pulse Ox 97 03/09/23 08:11 O2 Del Method Room Air 03/09/23 08:11 BMI result Body Mass Index 31.6 Appearing in no acute distress lung sounds are clear to auscultation heart regular rate rhythm, clear S1, S2 positive bowel sounds, abdomen is soft, nontender neuro patient is alert x3, no focal deficits RBKA sabine wraps Objective Data Active Medications Amitriptyline HCl (Amitriptyline Hcl 50 Mg Tablet) 50 mg PO BEDTIME [facility] Last Admin: 03/08/23 20:44 Dose: 50 mg Documented By: ROSY Amoxicillin/Clavulanate Potassium (Amoxicillin/Potassium Clav 875 Mg Tablet) 875 mg PO BID [facility] Last Admin: 03/09/23 07:05 Dose: 875 mg Documented By: FLORENCE Diltiazem HCl (Diltiazem Hcl Cd 120 Mg Cap.Er.Deg) 120 mg PO DAILY [facility]; Protocol Last Admin: 03/09/23 07:05 Dose: 120 mg Documented By: FLORENCE Diphenhydramine HCl (Diphenhydramine Hcl 25 Mg Capsule) 50 mg PO ONCE [facility] Docusate Sodium (Docusate Sodium 100 Mg Capsule) 100 mg PO BID [facility] Last Admin: 03/09/23 07:06 Dose: 100 mg Documented By: FLORENCE Enoxaparin Sodium (Enoxaparin Sodium 40 Mg/0.4 Ml Syringe) 40 mg SUBCUT Q24H [facility] Last Admin: 03/09/23 07:06 Dose: 40 mg Documented By: FLORENCE Glucose (Glucose Gel 15 Gm Gel..Gram.) 15 gm PO Q15M PRN; Protocol PRN Reason: per Hypoglycemia Standing Ord. Hydromorphone HCl (Hydromorphone Hcl 0.5 Mg/0.5 Ml Syringe) 0.5 mg IVPUSH Q3H PRN; Protocol PRN Reason: Pain, Severe (Pain Scale 7-10) Last Admin: 03/08/23 08:00 Dose: 0.5 mg Documented By: MITALI Dextrose (D10) 250 mls @ 750 mls/hr IV Q15M PRN; Protocol PRN Reason: per Hypoglycemia Standing Ord. Insulin Glargine (Insulin Glargine,Hum.Rec.Anlog 100 Unit/Ml 10 Ml Vial) 25 unit SUBCUT BID [facility] Insulin Human Lispro (Insulin Lispro 100 Unit/Ml 3 Ml Vial) 0 unit SUBCUT QIDACHS [facility]; Protocol Last Admin: 03/09/23 11:38 Dose: 2 unit Documented By: FLORENCE Lisinopril (Lisinopril 10 Mg Tablet) 10 mg PO DAILY [facility]; Protocol Last Admin: 03/09/23 09:19 Dose: Not Given Documented By: FLORENCE Non-Admin Reason: pt got 5mg, awaiting another 5mg dose order Methadone HCl (Methadone Hcl 20 Mg/2 Ml Oral.Conc) 85 mg PO DAILY [facility] Last Admin: 03/09/23 07:02 Dose: 85 mg Documented By: FLORENCE Ondansetron HCl (Ondansetron Hcl 4 Mg/2 Ml Vial) 4 mg IVPUSH QID PRN PRN Reason: Nausea Oxycodone HCl (Oxycodone Hcl Immed Release 5 Mg Tablet) 5 mg PO Q3H PRN PRN Reason: Pain, Moderate (Pain Scale 4-6 Pharmacy Consult (Consult Rx Perform Med Rec) 1 each MISCELLANE ONCE PRN PRN Reason: Consult order Polyethylene Glycol (Polyethylene Glycol 3350 17 Gm Powd.Pack) 17 gm PO DAILY [facility] Last Admin: 03/09/23 07:04 Dose: 17 gm Documented By: FLORENCE Senna (Sennosides 8.6 Mg Tablet) 8.6 mg PO DAILY [facility] Last Admin: 03/09/23 07:05 Dose: 8.6 mg Documented By: FLORENCE Sodium Chloride (0.9 % Sodium Chloride Flush 3 Ml Syringe) [facility] Admin: 03/09/23 07:06 Dose: 3 ml Documented By: FLORENCE Zolpidem Tartrate (Zolpidem Tartrate 5 Mg Tablet) 5 mg PO BEDTIME PRN PRN Reason: Insomnia Labs 03/06/23 06:13 03/08/23 04:43 Labs: Laboratory Results - last 24 hr 03/08/23 03/08/23 03/08/23 16:13 20:51 21:00 POC Glucose 176 H 140 H Random Vancomycin 17.5 03/09/23 03/09/23 07:33 11:24 POC Glucose 136 H 194 H Random Vancomycin Microbiology Microbiology Results: Microbiology 03/03/23 18:29 Blood Culture - Final Blood - Venous No growth after 5 days. 03/03/23 17:41 Blood Culture - Final Blood - Venous No growth after 5 days. Assessment and Plan (1) Status post below knee amputation of right lower extremity: Status: Acute (2) Hypertension: Status: Acute Plan 62M PMH DM, htn, mood disorder, paroxysmal vs lone afib (not on AC), hcv (treated 2009), opiate dependence, presented with malodorous right DFU Right foot ulcer due to diabetes with osteomyelitis complicated by cellulitis s/p right BKA initially treated with IV vanc, zosyn , transitioned to po abx BCx neg to date Hyperkalemia improved with lokelma DM ss, ada diet POC 50s last night, eating well will decrease dose of lantus HTN, uncontrolled increased lisinopril to 10 mg daily continue cardizem afib, ?paroxysmal vs lone in sinus not on ac at home continue cardizem mood disorder amitryptiline opiate dependence continue methadone dvt prophylaxis - lovealiciax attending Dr. Ivy DISPO PT rec acute rehab - insurance has denied authorization, CM looking for STR bed at this time continue hospital stay for placement Time Spent With Patient Time: Total time managing care of this patient today ____ minutes. Quality Stroke Does the patient have a stroke diagnosis?: No VTE Prior VTE?: No VTE Risk Level:: Medical - moderate - high VTE Device Contraindication: Treatment Not Indicated VTE Drug Contraindication: N/A - Med Ordered
--- NOTE | 2023-03-09 12:09 | MHC.CM.PN ---
Addendum entered by Rekha Bardales RN 03/09/23 12:11: [facility] HAS NOT YET OFFERED A BED Original Note: REFERRALS UPDATED TO INCLUDE [facility], [facility], AND [facility]
--- NOTE | 2023-03-09 13:17 | PC.NURSE ---
Methadone working well for patients pain control.
--- NOTE | 2023-03-09 15:33 | P.CDIM_ITS ---
PROVIDER RESPONSE TEXT: To clarify, the appropriate diagnosis supported by the clinical indicators: Acute on chronic QUERY TEXT: PHYSICIAN'S DOCUMENTATION REQUEST Date of Query: 03/05/2023 01:38 PM EDT Patient Name: Pasquale Zapata Admit Date: 03/04/2023 Dear Lexus Patel, A review of the medical record indicates additional documentation may be needed. Please review below and update the documentation accordingly. 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 Possible options might include: Acute Acute on chronic Chronic stable condition Other (explain) Clinically unable to determine (explain) Thank you, Yusra Mehta RN Use of terms such as suspected, likely, concern for, or probable (associated with a specific diagnosi s that is being evaluated, monitored, or treated as if it exists) are acceptable and can be coded in the inpatient se tting, when documented at the time of discharge. Please use your independent medical judgment in providing your response. THIS QUERY IS PART OF THE PERMANENT MEDICAL RECORD
--- NOTE | 2023-03-09 15:33 | P.CDIM_ITS ---
PROVIDER RESPONSE TEXT: To clarify, the appropriate diagnosis supported by the clinical indicators: Yes, Cellulitis is related to / associated with / due to Diabetes QUERY TEXT: PHYSICIAN'S DOCUMENTATION REQUEST Date of Query: 03/05/2023 01:40 PM EDT Patient Name: Pasquale Zapata Admit Date: 03/04/2023 Dear Lexus Patel, A review of the medical record indicates additional documentation may be needed. Please review below and update the documentation accordingly. Documentation includes the conditions of Diabetes and Cellulitis. Please clarify the relationship between these conditions: Yes, Cellulitis is related to / associated with / due to Diabetes No, Cellulitis is not related to / associated with / due to Diabetes Other (explain) Clinically unable to determine (explain) Thank you, Yusra Mehta RN Use of terms such as suspected, likely, concern for, or probable (associated with a specific diagnosi s that is being evaluated, monitored, or treated as if it exists) are acceptable and can be coded in the inpatient se tting, when documented at the time of discharge. Please use your independent medical judgment in providing your response. THIS QUERY IS PART OF THE PERMANENT MEDICAL RECORD
[2023-03-09] MEDS: amLODIPine Besylate 5 MG TABLET PO (16:06)
--- NOTE | 2023-03-09 16:06 | MHC.CM.PN ---
ARNAUD IS INTERESTED. CM TO CHECK SATURDAY FOR OPEN BED. FACILITY WOULD NEED [facility] AUTH TO ADMIT
[2023-03-09 16:19] LABS: Glucose, Whole Blood 174 mg/dL (60-115)
[2023-03-09 20:47] LABS: Glucose, Whole Blood 198 mg/dL (60-115)
[2023-03-09] MEDS: Amitriptyline HCl 50 MG TABLET PO (23:09)
[2023-03-10 02:56] VITALS: BP 184/86; PULSE 66; RESP 16; TEMP 36; O2SAT 98
[2023-03-10] MEDS: Amoxicillin/Potassium Clav 875 MG TABLET PO (07:06)
[2023-03-10] MEDS: Enoxaparin Sodium 40 MG/0.4 ML SYRINGE SUBCUT (07:06)
[2023-03-10] MEDS: lisinopriL 10 MG TABLET PO (07:06)
[2023-03-10] MEDS: dilTIAZem HCL CD 120 MG CAP.ER.DEG PO (07:06)
[2023-03-10] MEDS: methADONE HCl 20 MG/2 ML ORAL.CONC 85 MG PO (07:07)
[2023-03-10] MEDS: 0.9 % Sodium Chloride Flush 3 ML SYRINGE IVFLUSH ×3 (07:08→21:13)
[2023-03-10 07:21] VITALS: BP 184/95; PULSE 75; RESP 20; TEMP 36.3; O2SAT 97
[2023-03-10 07:26] VITALS: BP 184/95; PULSE 75; RESP 20; TEMP 36.3; O2SAT 98
[2023-03-10 07:49] LABS: Glucose, Whole Blood 157 mg/dL (60-115)
[2023-03-10] MEDS: Insulin Lispro 100 UNIT/ML 3 ML VIAL SUBCUT ×4 (08:05→21:11)
[2023-03-10 08:13] LABS: Anion Gap 13 (12-20); Blood Urea Nitrogen 21 mg/dL (9-16); Calcium 9.4 mg/dL (8.4-10.2); Carbon Dioxide 29 mmol/L (22-29); Chloride 102 mmol/L (96-108); Creatinine Clr Calc Pharmacy 118.7; Estimated Glomerular Filt Rate > 60; Glucose Random 163 mg/dL (60-115); Potassium 5.5 mmol/L (3.3-5.1); Sodium 138 mmol/L (135-145)
--- NOTE | 2023-03-10 09:57 | P.PNIM_ITS ---
Subjective Subjective Date of Service: 03/10/23 Interval History: seen and examined this morning Follow-up for diabetic foot wound status post BKA Pain under adequate control Review of Systems Review of Systems: Yes all other systems are reviewed and are negative Constitutional Constitutional: Denies chills and Denies fever(s) ENT Ears, Nose, Mouth, and Throat: Denies dizziness Cardiovascular Cardiovascular: Denies chest pain, Denies palpitations and Denies dyspnea Respiratory Respiratory: Denies cough and Denies dyspnea Gastrointestinal Gastrointestinal: Denies abdominal pain, Denies nausea and Denies vomiting Neurologic Neurologic: Denies dizziness Endocrine Endocrine: Denies palpitations Physical Exam Vital Signs: Vital Signs: Last Vital Signs Temp 97.3 F 03/10/23 07:26 Pulse 75 03/10/23 07:26 Resp 20 03/10/23 07:26 BP 184/95 H 03/10/23 07:26 Pulse Ox 98 03/10/23 07:26 O2 Del Method Room Air 03/10/23 07:26 BMI result Body Mass Index 31.6 Appearing in no acute distress LSCTA heart regular rate rhythm, clear S1, S2 positive bowel sounds, abdomen is soft, nontender neuro patient is alert x3, no focal deficits stump site good healing Objective Data Active Medications Amitriptyline HCl (Amitriptyline Hcl 50 Mg Tablet) 50 mg PO BEDTIME [facility] Last Admin: 03/09/23 23:09 Dose: 50 mg Documented By: ROSY Amoxicillin/Clavulanate Potassium (Amoxicillin/Potassium Clav 875 Mg Tablet) 875 mg PO BID [facility] Last Admin: 03/10/23 07:06 Dose: 875 mg Documented By: FLORENCE Diltiazem HCl (Diltiazem Hcl Cd 120 Mg Cap.Er.Deg) 120 mg PO DAILY [facility]; Protocol Last Admin: 03/10/23 07:06 Dose: 120 mg Documented By: FLORENCE Diphenhydramine HCl (Diphenhydramine Hcl 25 Mg Capsule) 50 mg PO ONCE [facility] Docusate Sodium (Docusate Sodium 100 Mg Capsule) 100 mg PO BID [facility] Last Admin: 03/10/23 07:10 Dose: Not Given Documented By: FLORENCE Non-Admin Reason: Patient Refused Enoxaparin Sodium (Enoxaparin Sodium 40 Mg/0.4 Ml Syringe) 40 mg SUBCUT Q24H [facility] Last Admin: 03/10/23 07:06 Dose: 40 mg Documented By: FLORENCE Glucose (Glucose Gel 15 Gm Gel..Gram.) 15 gm PO Q15M PRN; Protocol PRN Reason: per Hypoglycemia Standing Ord. Hydromorphone HCl (Hydromorphone Hcl 0.5 Mg/0.5 Ml Syringe) 0.5 mg IVPUSH Q3H PRN; Protocol PRN Reason: Pain, Severe (Pain Scale 7-10) Last Admin: 03/08/23 08:00 Dose: 0.5 mg Documented By: MITALI Dextrose (D10) 250 mls @ 750 mls/hr IV Q15M PRN; Protocol PRN Reason: per Hypoglycemia Standing Ord. Insulin Glargine (Insulin Glargine,Hum.Rec.Anlog 100 Unit/Ml 10 Ml Vial) 25 unit SUBCUT BID [facility] Insulin Human Lispro (Insulin Lispro 100 Unit/Ml 3 Ml Vial) 0 unit SUBCUT QIDACHS [facility]; Protocol Last Admin: 03/10/23 08:05 Dose: 2 unit Documented By: FLORENCE Lisinopril (Lisinopril 10 Mg Tablet) 10 mg PO DAILY [facility]; Protocol Last Admin: 03/10/23 07:06 Dose: 10 mg Documented By: FLORENCE Methadone HCl (Methadone Hcl 20 Mg/2 Ml Oral.Conc) 85 mg PO DAILY [facility] Last Admin: 03/10/23 07:07 Dose: 85 mg Documented By: FLORENCE Ondansetron HCl (Ondansetron Hcl 4 Mg/2 Ml Vial) 4 mg IVPUSH QID PRN PRN Reason: Nausea Oxycodone HCl (Oxycodone Hcl Immed Release 5 Mg Tablet) 5 mg PO Q3H PRN PRN Reason: Pain, Moderate (Pain Scale 4-6 Pharmacy Consult (Consult Rx Perform Med Rec) 1 each MISCELLANE ONCE PRN PRN Reason: Consult order Polyethylene Glycol (Polyethylene Glycol 3350 17 Gm Powd.Pack) 17 gm PO DAILY [facility] Last Admin: 03/10/23 07:10 Dose: Not Given Documented By: FLORENCE Non-Admin Reason: Patient Refused Senna (Sennosides 8.6 Mg Tablet) 8.6 mg PO DAILY [facility] Last Admin: 03/10/23 07:10 Dose: Not Given Documented By: FLORENCE Non-Admin Reason: Patient Refused Sodium Chloride (0.9 % Sodium Chloride Flush 3 Ml Syringe) 3 ml IVFLUSH QSHIFT [facility] Last Admin: 03/10/23 07:08 Dose: 3 ml Documented By: FLORENCE Zolpidem Tartrate (Zolpidem Tartrate 5 Mg Tablet) 5 mg PO BEDTIME PRN PRN Reason: Insomnia Labs 03/06/23 06:13 03/10/23 07:35 Labs: Laboratory Results - last 24 hr 03/09/23 03/09/23 03/09/23 11:24 16:15 20:43 Anion Gap Estim Creat Clear Calc Estimated GFR POC Glucose 194 H 174 H 198 H Random Glucose Calcium 03/10/23 03/10/23 07:25 07:35 Anion Gap 13 Estim Creat Clear Calc 118.7 Estimated GFR > 60 POC Glucose 157 H Random Glucose 163 H Calcium 9.4 D Assessment and Plan (1) Status post below knee amputation of right lower extremity: Status: Acute (2) Hypertension: Status: Acute Plan 62M PMH DM, htn, mood disorder, paroxysmal vs lone afib (not on AC), hcv (treated 2009), opiate dependence, presented with malodorous right DFU Right foot ulcer due to diabetes with osteomyelitis complicated by cellulitis s/p right BKA, healing well s/p initially treated with IV vanc, zosyn , transitioned to po abx>completed BCx neg to date Hyperkalemia Lokelma follow BMP DM ss, ada diet Lantus HTN, uncontrolled increased lisinopril to 10 mg daily continue cardizem afib, ?paroxysmal vs lone in sinus not on ac at home continue cardizem mood disorder amitryptiline opiate dependence continue methadone dvt prophylaxis - lovenox attending Dr. Ivy DISPO PT rec acute rehab - insurance has denied authorization, CM looking for STR bed at this time continue hospital stay for placement Time Spent With Patient Time: Total time managing care of this patient today ____ minutes. Quality Stroke Does the patient have a stroke diagnosis?: No VTE Prior VTE?: No VTE Risk Level:: Medical - moderate - high VTE Device Contraindication: Treatment Not Indicated VTE Drug Contraindication: N/A - Med Ordered
[2023-03-10] MEDS: Sodium Zirconium Cyclosilicate 10 GM POWD.PACK PO (10:19)
[2023-03-10 11:29] LABS: Glucose, Whole Blood 247 mg/dL (60-115)
[2023-03-10 13:52] VITALS: BP 168/60
[2023-03-10 15:28] VITALS: BP 120/59; PULSE 71; RESP 18; TEMP 36.9; O2SAT 97
[2023-03-10 16:15] LABS: Glucose, Whole Blood 174 mg/dL (60-115)
--- NOTE | 2023-03-10 17:43 | P.PNGS_ITS ---
Subjective Subjective Date of Service: 03/10/23 Interval history: feeling well Physical Exam Vital Signs: Vital Signs: Last Vital Signs Temp 98.4 F 03/10/23 15:28 Pulse 71 03/10/23 15:28 Resp 18 03/10/23 15:28 BP 120/59 L 03/10/23 15:28 Pulse Ox 97 03/10/23 15:28 O2 Del Method Room Air 03/10/23 15:28 BMI result Body Mass Index 31.6 Skin: Other: bka incision site and flap look great Objective Data Active Medications Amitriptyline HCl (Amitriptyline Hcl 50 Mg Tablet) 50 mg PO BEDTIME [facility] Last Admin: 03/09/23 23:09 Dose: 50 mg Documented By: ROSY Diltiazem HCl (Diltiazem Hcl Cd 120 Mg Cap.Er.Deg) 120 mg PO DAILY [facility]; Pr otocol Last Admin: 03/10/23 07:06 Dose: 120 mg Documented By: FLORENCE Diphenhydramine HCl (Diphenhydramine Hcl 25 Mg Capsule) 50 mg PO ONCE [facility] Docusate Sodium (Docusate Sodium 100 Mg Capsule) 100 mg PO BID [facility] Last Admin: 03/10/23 07:10 Dose: Not Given Documented By: FLORENCE Non-Admin Reason: Patient Refused Enoxaparin Sodium (Enoxaparin Sodium 40 Mg/0.4 Ml Syringe) 40 mg SUBCUT Q24H [facility] Last Admin: 03/10/23 07:06 Dose: 40 mg Documented By: FLORENCE Glucose (Glucose Gel 15 Gm Gel..Gram.) 15 gm PO Q15M PRN; Protocol PRN Reason: per Hypoglycemia Standing Ord. Hydromorphone HCl (Hydromorphone Hcl 0.5 Mg/0.5 Ml Syringe) 0.5 mg IVPUSH Q3H PRN; Protocol PRN Reason: Pain, Severe (Pain Scale 7-10) Last Admin: 03/08/23 08:00 Dose: 0.5 mg Documented By: MITALI Dextrose (D10) 250 mls @ 750 mls/hr IV Q15M PRN; Protocol PRN Reason: per Hypoglycemia Standing Ord. Insulin Glargine (Insulin Glargine,Hum.Rec.Anlog 100 Unit/Ml 10 Ml Vial) 25 unit SUBCUT BID [facility] Insulin Human Lispro (Insulin Lispro 100 Unit/Ml 3 Ml Vial) 0 unit SUBCUT QIDACHS [facility]; Protocol Last Admin: 03/10/23 16:51 Dose: 2 unit Documented By: FLORENCE Lisinopril (Lisinopril 10 Mg Tablet) 10 mg PO DAILY [facility]; Protocol Last Admin: 03/10/23 07:06 Dose: 10 mg Documented By: FLORENCE Methadone HCl (Methadone Hcl 20 Mg/2 Ml Oral.Conc) 85 mg PO DAILY [facility] Last Admin: 03/10/23 07:07 Dose: 85 mg Documented By: FLORENCE Ondansetron HCl (Ondansetron Hcl 4 Mg/2 Ml Vial) 4 mg IVPUSH QID PRN PRN Reason: Nausea Oxycodone HCl (Oxycodone Hcl Immed Release 5 Mg Tablet) 5 mg PO Q3H PRN PRN Reason: Pain, Moderate (Pain Scale 4-6 Pharmacy Consult (Consult Rx Perform Med Rec) 1 each MISCELLANE ONCE PRN PRN Reason: Consult order Polyethylene Glycol (Polyethylene Glycol 3350 17 Gm Powd.Pack) 17 gm PO DAILY [facility] Last Admin: 03/10/23 07:10 Dose: Not Given Documented By: FLORENCE Non-Admin Reason: Patient Refused Senna (Sennosides 8.6 Mg Tablet) 8.6 mg PO DAILY [facility] Last Admin: 03/10/23 07:10 Dose: Not Given Documented By: FLORENCE Non-Admin Reason: Patient Refused Sodium Chloride (0.9 % Sodium Chloride Flush 3 Ml Syringe) 3 ml IVFLUSH QSHIFT [facility] Last Admin: 03/10/23 16:54 Dose: 3 ml Documented By: FLORENCE Zolpidem Tartrate (Zolpidem Tartrate 5 Mg Tablet) 5 mg PO BEDTIME PRN PRN Reason: Insomnia Labs 03/06/23 06:13 03/10/23 07:35 Labs: Laboratory Results - last 24 hr 03/09/23 03/10/23 03/10/23 20:43 07:25 07:35 Anion Gap 13 Estim Creat Clear Calc 118.7 Estimated GFR > 60 POC Glucose 198 H 157 H Random Glucose 163 H Calcium 9.4 D 03/10/23 03/10/23 11:14 16:11 Anion Gap Estim Creat Clear Calc Estimated GFR POC Glucose 247 H 174 H Random Glucose Calcium Procedures Date of Service Date of Service: 03/10/23 Progress Note: A&P Assessment and plan (1) Status post below knee amputation of right lower extremity: Status: Acute Assessment and Plan: pts bka looks great cont with offloading and dressings and compression he will do well with eventual prosthesis Time Spent With Patient Time: Total time managing care of this patient today ____ minutes. Quality Stroke Does the patient have a stroke diagnosis?: No VTE Prior VTE?: No VTE Risk Level:: Medical - moderate - high VTE Device Contraindication: Treatment Not Indicated VTE Drug Contraindication: N/A - Med Ordered
[2023-03-10 19:35] VITALS: BP 162/70; PULSE 75; RESP 18; TEMP 36.5; O2SAT 96
[2023-03-10] MEDS: HYDROmorphone HCl 0.5 MG/0.5 ML SYRINGE IVPUSH (19:52)
[2023-03-10 20:48] LABS: Glucose, Whole Blood 329 mg/dL (60-115)
[2023-03-10] MEDS: Amitriptyline HCl 50 MG TABLET PO (21:11)
[2023-03-11 03:27] VITALS: BP 170/69; PULSE 70; RESP 18; TEMP 36.1; O2SAT 98
[2023-03-11 07:06] VITALS: BP 184/87; PULSE 72; RESP 18; TEMP 37; O2SAT 97
[2023-03-11 07:16] LABS: Anion Gap 14 (12-20); Blood Urea Nitrogen 24 mg/dL (9-16); Calcium 9.4 mg/dL (8.4-10.2); Carbon Dioxide 27 mmol/L (22-29); Chloride 103 mmol/L (96-108); Creatinine Clr Calc Pharmacy 121.4; Estimated Glomerular Filt Rate > 60; Glucose Random 148 mg/dL (60-115); Potassium 5.9 mmol/L (3.3-5.1); Sodium 138 mmol/L (135-145)
[2023-03-11 07:29] LABS: Glucose, Whole Blood 159 mg/dL (60-115)
[2023-03-11] MEDS: Enoxaparin Sodium 40 MG/0.4 ML SYRINGE SUBCUT (09:24)
[2023-03-11] MEDS: lisinopriL 10 MG TABLET PO (09:24)
[2023-03-11] MEDS: dilTIAZem HCL CD 120 MG CAP.ER.DEG PO ×2 (09:25→21:39)
[2023-03-11] MEDS: methADONE HCl 20 MG/2 ML ORAL.CONC 85 MG PO (09:25)
[2023-03-11] MEDS: Insulin Lispro 100 UNIT/ML 3 ML VIAL SUBCUT ×4 (09:26→21:39)
[2023-03-11] MEDS: 0.9 % Sodium Chloride Flush 3 ML SYRINGE IVFLUSH ×3 (09:30→21:41)
[2023-03-11] MEDS: Sennosides 8.6 MG TABLET PO (09:32)
[2023-03-11] MEDS: Docusate Sodium 100 MG CAPSULE PO (09:32)
[2023-03-11 11:14] LABS: Glucose, Whole Blood 262 mg/dL (60-115)
--- NOTE | 2023-03-11 12:28 | HO.PM.IMPN ---
Subjective Subjective Date of Service: 03/11/23 Interval History: seen and examined this morning Follow-up for diabetic foot wound status post BKA Pain under adequate control Review of Systems Review of Systems: Yes all other systems are reviewed and are negative Constitutional Constitutional: Denies chills and Denies fever(s) ENT Ears, Nose, Mouth, and Throat: Denies dizziness Cardiovascular Cardiovascular: Denies chest pain, Denies palpitations and Denies dyspnea Respiratory Respiratory: Denies cough and Denies dyspnea Gastrointestinal Gastrointestinal: Denies abdominal pain, Denies nausea and Denies vomiting Neurologic Neurologic: Denies dizziness Endocrine Endocrine: Denies palpitations Physical Exam Vital Signs: Vital Signs: Last Vital Signs Temp 98.6 F 03/11/23 07:06 Pulse 72 03/11/23 07:06 Resp 18 03/11/23 07:06 BP 184/87 H 03/11/23 07:06 Pulse Ox 97 03/11/23 07:06 O2 Del Method Room Air 03/11/23 07:06 BMI result Body Mass Index 31.6 Appearing in no acute distress lung sounds are clear to auscultation heart regular rate rhythm, clear S1, S2 positive bowel sounds, abdomen is soft, nontender neuro patient is alert x3, no focal deficits LBKA Objective Data Active Medications Amitriptyline HCl (Amitriptyline Hcl 50 Mg Tablet) 50 mg PO BEDTIME [facility] Last Admin: 03/10/23 21:11 Dose: 50 mg Documented By: YISEL Diltiazem HCl (Diltiazem Hcl Cd 120 Mg Cap.Er.Deg) 120 mg PO DAILY [facility]; Protocol Last Admin: 03/11/23 09:25 Dose: 120 mg Documented By: DIEGO Diphenhydramine HCl (Diphenhydramine Hcl 25 Mg Capsule) 50 mg PO ONCE [facility] Docusate Sodium (Docusate Sodium 100 Mg Capsule) 100 mg PO BID [facility] Last Admin: 03/11/23 09:32 Dose: 100 mg Documented By: DIEGO Enoxaparin Sodium (Enoxaparin Sodium 40 Mg/0.4 Ml Syringe) 40 mg SUBCUT Q24H [facility] Last Admin: 03/11/23 09:24 Dose: 40 mg Documented By: DIEGO Glucose (Glucose Gel 15 Gm Gel..Gram.) 15 gm PO Q15M PRN; Protocol PRN Reason: per Hypoglycemia Standing Ord. Hydromorphone HCl (Hydromorphone Hcl 0.5 Mg/0.5 Ml Syringe) 0.5 mg IVPUSH Q3H PRN; Protocol PRN Reason: Pain, Severe (Pain Scale 7-10) Last Admin: 03/10/23 19:52 Dose: 0.5 mg Documented By: YISEL Dextrose (D10) 250 mls @ 750 mls/hr IV Q15M PRN; Protocol PRN Reason: per Hypoglycemia Standing Ord. Insulin Glargine (Insulin Glargine,Hum.Rec.Anlog 100 Unit/Ml 10 Ml Vial) 25 unit SUBCUT BID [facility] Insulin Human Lispro (Insulin Lispro 100 Unit/Ml 3 Ml Vial) 0 unit SUBCUT QIDACHS [facility]; Protocol Last Admin: 03/11/23 11:25 Dose: 6 unit Documented By: DIEGO Lisinopril (Lisinopril 10 Mg Tablet) 10 mg PO DAILY [facility]; Protocol Last Admin: 03/11/23 09:24 Dose: 10 mg Documented By: DIEGO Methadone HCl (Methadone Hcl 20 Mg/2 Ml Oral.Conc) 85 mg PO DAILY [facility] Last Admin: 03/11/23 09:25 Dose: 85 mg Documented By: DIEGO Ondansetron HCl (Ondansetron Hcl 4 Mg/2 Ml Vial) 4 mg IVPUSH QID PRN PRN Reason: Nausea Oxycodone HCl (Oxycodone Hcl Immed Release 5 Mg Tablet) 5 mg PO Q3H PRN PRN Reason: Pain, Moderate (Pain Scale 4-6 Pharmacy Consult (Consult Rx Perform Med Rec) 1 each MISCELLANE ONCE PRN PRN Reason: Consult order Polyethylene Glycol (Polyethylene Glycol 3350 17 Gm Powd.Pack) 17 gm PO DAILY [facility] Last Admin: 03/11/23 09:31 Dose: Not Given Documented By: DIEGO Non-Admin Reason: Patient Refused Senna (Sennosides 8.6 Mg Tablet) 8.6 mg PO DAILY [facility] Last Admin: 03/11/23 09:32 Dose: 8.6 mg Documented By: DIEGO Sodium Chloride (0.9 % Sodium Chloride Flush 3 Ml Syringe) 3 ml IVFLUSH QSHIFT [facility] Last Admin: 03/11/23 09:30 Dose: 3 ml Documented By: DIEGO Zolpidem Tartrate (Zolpidem Tartrate 5 Mg Tablet) 5 mg PO BEDTIME PRN PRN Reason: Insomnia Labs 03/06/23 06:13 03/11/23 06:03 Labs: Laboratory Results - last 24 hr 03/10/23 03/10/23 03/11/23 16:11 20:44 06:03 Anion Gap 14 Estim Creat Clear Calc 121.4 Estimated GFR > 60 POC Glucose 174 H 329 H Random Glucose 148 H Calcium 9.4 03/11/23 03/11/23 07:04 11:11 Anion Gap Estim Creat Clear Calc Estimated GFR POC Glucose 159 H 262 H Random Glucose Calcium Assessment and Plan (1) Status post below knee amputation of right lower extremity: Status: Acute (2) Hypertension: Status: Acute Plan 62M PMH DM, htn, mood disorder, paroxysmal vs lone afib (not on AC), hcv (treated 2009), opiate dependence, presented with malodorous right DFU HTN, uncontrolled Lisinopril stopped due to persistent hyperkalemia Diltiazem 120 mg increased to BID Hydralazine po added TID Hyperkalemia Lokelma TID x 6 doses lisinopril stopped follow BMP 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 Freddy MITCHELL PT rec acute rehab - insurance has denied authorization, CM looking for STR bed at this time continue hospital stay for placement Time Spent With Patient Time: Total time managing care of this patient today ____ minutes. Quality Stroke Does the patient have a stroke diagnosis?: No VTE Prior VTE?: No VTE Risk Level:: Medical - moderate - high VTE Device Contraindication: Treatment Not Indicated VTE Drug Contraindication: N/A - Med Ordered
--- NOTE | 2023-03-11 13:11 | MHC.CM.PN ---
per rounds pt is ready for dc no facility acceptance at this time
[2023-03-11] MEDS: Sodium Zirconium Cyclosilicate 10 GM POWD.PACK PO ×2 (14:37→21:38)
[2023-03-11] MEDS: hydrALAZINE HCl 25 MG TABLET PO ×2 (14:37→21:38)
[2023-03-11 14:43] VITALS: BP 152/81; PULSE 90
[2023-03-11 15:26] VITALS: BP 157/72; PULSE 80; RESP 18; TEMP 36.1; O2SAT 96
[2023-03-11 16:31] LABS: Glucose, Whole Blood 278 mg/dL (60-115)
[2023-03-11 19:15] VITALS: BP 160/78; PULSE 73; RESP 18; TEMP 36; O2SAT 97
[2023-03-11 20:57] LABS: Glucose, Whole Blood 257 mg/dL (60-115)
[2023-03-11] MEDS: Amitriptyline HCl 50 MG TABLET PO (21:45)
[2023-03-12 03:37] VITALS: BP 159/72; PULSE 66; RESP 18; TEMP 36.4; O2SAT 95
[2023-03-12 06:46] LABS: Anion Gap 11 (12-20); Blood Urea Nitrogen 24 mg/dL (9-16); Calcium 9.1 mg/dL (8.4-10.2); Carbon Dioxide 30 mmol/L (22-29); Chloride 103 mmol/L (96-108); Creatinine Clr Calc Pharmacy 117.3; Estimated Glomerular Filt Rate > 60; Glucose Random 194 mg/dL (60-115); Potassium 5.8 mmol/L (3.3-5.1); Sodium 138 mmol/L (135-145)
[2023-03-12 07:12] VITALS: BP 160/76; PULSE 71; RESP 18; TEMP 36.6; O2SAT 97
[2023-03-12 07:40] LABS: Glucose, Whole Blood 193 mg/dL (60-115)
[2023-03-12] MEDS: Sodium Zirconium Cyclosilicate 10 GM POWD.PACK PO ×2 (07:44→14:13)
[2023-03-12] MEDS: Insulin Lispro 100 UNIT/ML 3 ML VIAL SUBCUT ×3 (07:44→16:52)
[2023-03-12] MEDS: 0.9 % Sodium Chloride Flush 3 ML SYRINGE IVFLUSH (07:49)
--- NOTE | 2023-03-12 09:06 | P.PNIM_ITS ---
Subjective Subjective Date of Service: 03/12/23 Interval History: seen and examined this morning Follow-up for diabetic foot wound status post BKA Pain under adequate control Review of Systems Review of Systems: Yes all other systems are reviewed and are negative Constitutional Constitutional: Denies chills and Denies fever(s) ENT Ears, Nose, Mouth, and Throat: Denies dizziness Cardiovascular Cardiovascular: Denies chest pain, Denies palpitations and Denies dyspnea Respiratory Respiratory: Denies cough and Denies dyspnea Gastrointestinal Gastrointestinal: Denies abdominal pain, Denies nausea and Denies vomiting Neurologic Neurologic: Denies dizziness Endocrine Endocrine: Denies palpitations Physical Exam Vital Signs: Vital Signs: Last Vital Signs Temp 97.9 F 03/12/23 07:12 Pulse 71 03/12/23 07:12 Resp 18 03/12/23 07:12 BP 160/76 H 03/12/23 07:12 Pulse Ox 97 03/12/23 07:12 O2 Del Method Room Air 03/12/23 07:12 BMI result Body Mass Index 31.6 Appearing in no acute distress lung sounds are clear to auscultation heart regular rate rhythm, clear S1, S2 positive bowel sounds, abdomen is soft, nontender neuro patient is alert x3, no focal deficits Right BKA stump site healing well, carleen intact Objective Data Active Medications Amitriptyline HCl (Amitriptyline Hcl 50 Mg Tablet) 50 mg PO BEDTIME [facility] Last Admin: 03/11/23 21:45 Dose: 50 mg Documented By: YISEL Diltiazem HCl (Diltiazem Hcl Cd 120 Mg Cap.Er.Deg) 120 mg PO BID [facility]; Protocol Last Admin: 03/11/23 21:39 Dose: 120 mg Documented By: YISEL Diphenhydramine HCl (Diphenhydramine Hcl 25 Mg Capsule) 50 mg PO ONCE [facility] Docusate Sodium (Docusate Sodium 100 Mg Capsule) 100 mg PO BID [facility] Last Admin: 03/11/23 21:45 Dose: Not Given Documented By: YISEL Non-Admin Reason: Patient Refused Enoxaparin Sodium (Enoxaparin Sodium 40 Mg/0.4 Ml Syringe) 40 mg SUBCUT Q24H [facility] Last Admin: 03/11/23 09:24 Dose: 40 mg Documented By: DIEGO Glucose (Glucose Gel 15 Gm Gel..Gram.) 15 gm PO Q15M PRN; Protocol PRN Reason: per Hypoglycemia Standing Ord. Hydralazine HCl (Hydralazine Hcl 25 Mg Tablet) 25 mg PO TID [facility]; Protocol Last Admin: 03/11/23 21:38 Dose: 25 mg Documented By: YISEL Hydromorphone HCl (Hydromorphone Hcl 0.5 Mg/0.5 Ml Syringe) 0.5 mg IVPUSH Q3H PRN; Protocol PRN Reason: Pain, Severe (Pain Scale 7-10) Last Admin: 03/10/23 19:52 Dose: 0.5 mg Documented By: YISEL Dextrose (D10) 250 mls @ 750 mls/hr IV Q15M PRN; Protocol PRN Reason: per Hypoglycemia Standing Ord. Insulin Glargine (Insulin Glargine,Hum.Rec.Anlog 100 Unit/Ml 10 Ml Vial) 25 unit SUBCUT BID [facility] Insulin Human Lispro (Insulin Lispro 100 Unit/Ml 3 Ml Vial) 0 unit SUBCUT QIDACHS [facility]; Protocol Last Admin: 03/12/23 07:44 Dose: 2 unit Documented By: PONCHO Methadone HCl (Methadone Hcl 20 Mg/2 Ml Oral.Conc) 85 mg PO DAILY [facility] Last Admin: 03/11/23 09:25 Dose: 85 mg Documented By: DIEGO Ondansetron HCl (Ondansetron Hcl 4 Mg/2 Ml Vial) 4 mg IVPUSH QID PRN PRN Reason: Nausea Pharmacy Consult (Consult Rx Perform Med Rec) 1 each MISCELLANE ONCE PRN PRN Reason: Consult order Polyethylene Glycol (Polyethylene Glycol 3350 17 Gm Powd.Pack) 17 gm PO DAILY [facility] Last Admin: 03/11/23 09:31 Dose: Not Given Documented By: DIEGO Non-Admin Reason: Patient Refused Senna (Sennosides 8.6 Mg Tablet) 8.6 mg PO DAILY [facility] Last Admin: 03/11/23 09:32 Dose: 8.6 mg Documented By: DIEGO Sodium Chloride (0.9 % Sodium Chloride Flush 3 Ml Syringe) 3 ml IVFLUSH QSHIFT [facility] Last Admin: 03/12/23 07:49 Dose: 3 ml Documented By: PONCHO Sodium Zirconium Cyclosilicate (Sodium Zirconium Cyclosilicate 10 Gm Powd.Pack) 10 gm PO TID [facility] Stop: 03/13/23 09:01 Last Admin: 03/12/23 07:44 Dose: 10 gm Documented By: PONCHO Zolpidem Tartrate (Zolpidem Tartrate 5 Mg Tablet) 5 mg PO BEDTIME PRN PRN Reason: Insomnia Labs 03/06/23 06:13 03/12/23 05:17 Labs: Laboratory Results - last 24 hr 03/11/23 03/11/23 03/11/23 11:11 16:26 20:53 Anion Gap Estim Creat Clear Calc Estimated GFR POC Glucose 262 H 278 H 257 H Random Glucose Calcium 03/12/23 03/12/23 05:17 07:25 Anion Gap 11 L Estim Creat Clear Calc 117.3 Estimated GFR > 60 POC Glucose 193 H Random Glucose 194 H Calcium 9.1 Assessment and Plan (1) Status post below knee amputation of right lower extremity: Status: Acute (2) Hypertension: Status: Acute Plan 62M PMH DM, htn, mood disorder, paroxysmal vs lone afib (not on AC), hcv (treate d 2009), opiate dependence, presented with malodorous right DFU HTN, uncontrolled, improving Lisinopril stopped due to persistent hyperkalemia Diltiazem 120 mg increased to BID Hydralazine po added TID Hyperkalemia Lokelma TID x 6 doses lisinopril stopped follow BMP 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 Freddy MITCHELL PT rec acute rehab - insurance has denied authorization, CM looking for [facility] bed at this time continue hospital stay for placement Time Spent With Patient Time: Total time managing care of this patient today ____ minutes. Quality Stroke Does the patient have a stroke diagnosis?: No VTE Prior VTE?: No VTE Risk Level:: Medical - moderate - high VTE Device Contraindication: Treatment Not Indicated VTE Drug Contraindication: N/A - Med Ordered
[2023-03-12] MEDS: dilTIAZem HCL CD 120 MG CAP.ER.DEG PO (09:43)
[2023-03-12] MEDS: hydrALAZINE HCl 25 MG TABLET PO ×2 (09:44→15:05)
[2023-03-12] MEDS: Sennosides 8.6 MG TABLET PO (09:44)
[2023-03-12] MEDS: methADONE HCl 20 MG/2 ML ORAL.CONC 85 MG PO (09:49)
[2023-03-12] MEDS: Enoxaparin Sodium 40 MG/0.4 ML SYRINGE SUBCUT (09:52)
[2023-03-12 11:39] LABS: Glucose, Whole Blood 258 mg/dL (60-115)
--- NOTE | 2023-03-12 14:59 | W.MHC.F2F ---
Service Date Service Date: 03/12/23 Encounter Date of encounter: 03/12/23 Reasons for Services Signs and symptoms assessed: CHEL Reason for intermediate: CV/CP assess and/or care and wound care Reason for physical therapy: home safety and mobility, therapeutic exercises, gait/transfer training, assess need for DME, ADL training and energy conservation Homebound: Leaving the home is medically contraindicated at this time without the asist of a device and/or another person due th the listed conditions above and below. Reason homebound: unsteady gait / fall risk and non-weight bearing Certification: Based on the above findings, I certify that this patient is confined to the home and needs intermittent intermediate care, physical therapy and/or speech therapy, or continues to need occupational therapy. The patient is under my care, and I have initiated the establishment of the plan of care. The patient will be followed by a physician who will periodically review the plan of care. Time Spent With Patient Time: Total time managing care of this patient today ____ minutes.
--- NOTE | 2023-03-12 15:03 | PM.DS ---
DS: Providers Provider Date of Service: 03/12/23 Date of admission: 03/03/23 22:41 Primary care physician: Pham Sadler NP Consults: 03/03/23 22:23 Consult to General Surgery Routine Consulting Provider: [facility] [place] General Surgeons Reason for consultation: dfu/om DS: Diagnosis Discharge Diagnosis (1) Status post below knee amputation of right lower extremity: Status: Acute (2) Hypertension: Status: Acute DS: Summary Hospital Course Hospital Course: HP as per admitting provider 62M PMH DM, htn, mood disorder, paroxysmal vs lone afib (not on AC), hcv (treated 2009), opiate dependence, presented with malodorous right DFU. patient has history of bilateral TMAs for DFU/OM, reporting several days of worsening odor coming from right heel DFU. denies fever, chills chest pain, sob. in ED found to have leukocytosis, elevated CRP, xray with?Large air collection in the plantar soft tissues and question adjacent osteomyelitis of the plantar foot . HTN, uncontrolled, Lisinopril stopped due to persistent hyperkalemia. Diltiazem 120 mg increased to BID. Hydralazine po added TID Hyperkalemia. Treated with Lokelma doses. lisinopril stopped. follow BMP daily x 2 as per [facility]. 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 s/p right BKA, healing well. s/p initially treated with IV vanc, zosyn , transitioned to po abx>completed BCx neg to date DM. Continue home medications afib, ?paroxysmal vs lone. not on ac at home. continue cardizem mood disorder. amitryptiline opiate dependence. continue methadone Time Spent with Patient Time attestation: Total time managing care of this patient today ____ minutes. Discharge coordination time: Greater than 30 minutes Quality: Safe Use of Opioids Does Pt have an Active Cancer Diagnosis on the Problem List?: No Quality: Stroke Does the patient have a stroke diagnosis?: No Physical Exam Vital Signs: Vital Signs: Last Vital Signs Temp 97.9 F 03/12/23 07:12 Pulse 71 03/12/23 07:12 Resp 18 03/12/23 07:12 BP 160/76 H 03/12/23 07:12 Pulse Ox 97 03/12/23 07:12 O2 Del Method Room Air 03/12/23 07:12 BMI result Body Mass Index 31.6 Appearing in no acute distress head is normocephalic atraumatic eyes pupils are PERRLA sclera is anicteric mouth throat mucous membranes are intact and moist neck is supple no lymphadenopathy, no JVD noted lung sounds are clear to auscultation heart regular rate rhythm, clear S1, S2 positive bowel sounds, abdomen is soft, nontender neuro patient is alert x3, no focal deficits DS: Data Data Completed and Pending Completed studies during hospitalization [Text1]: Pending at discharge 03/04/23 16:40 Surgical [PTH] Routine Labs on day of discharge: Laboratory Results - last 24 hr 03/11/23 03/11/23 03/12/23 16:26 20:53 05:17 Sodium 138 Potassium 5.8 H Chloride 103 Carbon Dioxide 30 H Anion Gap 11 L BUN 24 H Creatinine 0.88 Estim Creat Clear Calc 117.3 Estimated GFR > 60 POC Glucose 278 H 257 H Random Glucose 194 H Calcium 9.1 03/12/23 03/12/23 07:25 11:18 Sodium Potassium Chloride Carbon Dioxide Anion Gap BUN Creatinine Estim Creat Clear Calc Estimated GFR POC Glucose 193 H 258 H Random Glucose Calcium Discharge Plan Discharge Anticipated Discharge Date/Time: 03/12/23 14:32 Patient Disposition: Home Health Service Discharge Diagnosis: Right foot diabetic ulcer osteomyelitis Right BKA HTN Hyperkalemia [facility]: [facility] [Other] - 1 Week Maynor Cannon MD [Physician] - 2 Weeks Pham Sadler NP [Primary Care Provider] - 1 Week Discharge Medications: New hydralazine 25 mg Tablet 25 mg PO TID Qty: 90 0RF Protocol: Hold for SBP< HOLD for SBP < : 90 diltiazem HCl [Cardizem CD] 120 mg Capsule,Extended Release 24hr 120 mg PO BID Qty: 60 0RF Protocol: Hold for SBP/HR < HOLD for SBP < : 90 HOLD for HR < : 60 (DME) Wheel chair Kit See Rx Instructions .Route Qty: 1 0RF Rx Instructions: As directed Continued (DME) Off loading shoe large See Rx Instructions .Route .MEDSUPPLY Qty: 1 0RF Rx Instructions: As directed (DME) Xeroform Petrolatum Dressing 1 X 8 bandage See Rx Instructions .ROUTE .MEDSUPPLY Qty: 200 0RF Rx Instructions: apply to foot wound daily (DME) Band-Aid Gauze Pads 3 X 3 bandage See Rx Instructions .ROUTE .MEDSUPPLY Qty: 25 3RF Rx Instructions: apply to foot wound daily (DME) Band-Aid Rolled Gauze 4 X 2.5 -yard bandage See Rx Instructions .ROUTE .MEDSUPPLY Qty: 30 3RF Rx Instructions: apply to foot wound daily (DME) adhesive tape 2 X 10 -yard tape See Rx Instructions .ROUTE .MEDSUPPLY Qty: 1 3RF Rx Instructions: apply to foot wound daily (DME) prosthetic Kit See Rx Instructions .Route Qty: 1 0RF Rx Instructions: As directed diphenhydramine HCl [Benadryl] 25 mg capsule 50 mg PO ONCE Qty: 2 0RF Rx Instructions: Take both capsules (totaling 50 mg) one hour prior to the procedure. amitriptyline 50 mg Tablet 50 mg PO BEDTIME glipizide 2.5 mg tablet extended release 24hr 2.5 mg PO QAM Lantus U-100 Insulin 100 unit/mL solution 40 unit subcut BID methadone 5 mg tablet 85 mg PO DAILY (DME) FreeStyle Lite Strips Strip See Rx Instructions Not Applicable TID Qty: 10 Rx Instructions: As directed (DME) insulin syringe-needle U-100 [BD Insulin Syringe Ultra-Fine] 1 mL 31 gauge x 5/16 syringe See Rx Instructions .ROUTE DAILY Qty: 10 Rx Instructions: As directed hydrocortisone 2.5 % cream 1 appl topical BID PRN (Reason: skin irritation) Qty: 20 0RF Rx Instructions: Apply to right calf skin Discontinued sulfamethoxazole-trimethoprim [Bactrim DS] 800-160 mg tablet 1 tab PO BID Qty: 28 0RF doxycycline hyclate 100 mg tablet 100 mg PO BID diltiazem HCl 120 mg capsule,extended release 24 hr 120 mg PO QAM Discharge Orders: Discharge Order (Routine); Ordered 03/12/23 Ordered By: Lexus Patel Diet: Advance to usual diet Activity on Discharge: wheelchair Stand Alone Forms: Patient Portal Discharge page Other Ambulatory Orders: Potassium (DAILY) Timeframe: 20230314 Facility: [facility] - Location: Laboratory Ordered By: Lexus Patel Potassium (DAILY) Timeframe: 20230315 Facility: [facility] - Location: Laboratory Ordered By: Lexus Patel Activity Restrictions/Additional Instructions: If the incision area is tender, you may apply an ice pack for short intervals (No more than 20 minutes on, followed by at least 20 minutes off). Do not apply heat. Do not use creams, lotions, or topical antibiotics. Dressing change daily with dry sterile dressing, kerlix wrap followed by sabine wrap. Keep right stump elevated while at rest. Ok to shower. You have carleen closing your incision and these will be removed approximately 10-14 days after surgery. Follow up in office with Dr. Cannon in 2 week. ([phone]) Call Your Doctor If: -Your temperature exceeds 101.5? F -You experience excessive pain or swelling -You have an unexpected reaction to medication -You have excessive bleeding -You experience continued vomiting/nausea -Your incision begins to separate -Your incision shows signs of infection such as increased redness, swelling, excessive pain, drainage (light blood or clear fluid is normal) or heat Care Plan Goals: Daily dressing change as above Health Concerns: Right foot diabetic ulcer osteomyelitis Right BKA HTN Hyperkalemia Plan of Treatment: Follow up with general surgeon for staple removal Take all medications as prescribed Assessment: See discharge summary
[2023-03-12 15:10] LABS: Potassium 4.7 mmol/L (3.3-5.1)
[2023-03-12 15:24] VITALS: BP 185/88; PULSE 84; RESP 18; TEMP 36.7; O2SAT 95
--- NOTE | 2023-03-12 15:25 | MHC.CM.PN ---
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
[2023-03-12 16:45] LABS: Glucose, Whole Blood 358 mg/dL (60-115)
== END 2023-03-12 18:34 | disposition home health service (06) | DRG 305 ==
LOC: HO.ED 18:37 → HO.EDOVER 22:46 → HO.S3 03-04 10:28
PROVIDERS: Physician Assistant; Physician Assistant Medical; Surgery; Admitting Provider Internal Medicine; Emergency Provider Internal Medicine; PCP Nurse Practitioner Family; Visit Provider Nurse Practitioner Acute Care
PROC: 0Y6H0Z1 Detachment at Right Lower Leg, High, Open Approach (ICD-10-PCS; CPT 27880; principal; 2023-03-04 14:20)
DX: E11.52 Type 2 diabetes mellitus with diabetic peripheral angiopathy with gangrene (principal); M86.171 Other acute osteomyelitis, right ankle and foot; E11.621 Type 2 diabetes mellitus with foot ulcer; L97.412 Non-pressure chronic ulcer of right heel and midfoot with fat layer exposed; L02.611 Cutaneous abscess of right foot; E11.628 Type 2 diabetes mellitus with other skin complications; E11.69 Type 2 diabetes mellitus with other specified complication; E87.5 Hyperkalemia; M86.671 Other chronic osteomyelitis, right ankle and foot; F11.20 Opioid dependence, uncomplicated; F17.210 Nicotine dependence, cigarettes, uncomplicated; I10 Essential (primary) hypertension; I48.0 Paroxysmal atrial fibrillation; Z71.6 Tobacco abuse counseling; Z20.822 Contact with and (suspected) exposure to COVID-19; Z23 Encounter for immunization; Z91.040 Latex allergy status; Z86.19 Personal history of other infectious and parasitic diseases; Z91.041 Radiographic dye allergy status; Z88.1 Allergy status to other antibiotic agents; Z88.8 Allergy status to other drugs, medicaments and biological substances; Z79.4 Long term (current) use of insulin; Z79.84 Long term (current) use of oral hypoglycemic drugs; Z79.899 Other long term (current) drug therapy
CPT/HCPCS: 36415; 73630; 80048; 80053; 80202; 82565; 82947; 83605; 83690; 84132; 85025; 85027; 85610; 85652; 85730; 86140; 86850; 86900; 86901; 87040; 87635; 88307; 88311; 90686; 93005; 97162; 97165; 97530; 97535; 99285; J0131; J1170; J1650; J2543; J2795; J3370

== ENCOUNTER → 2023-04-03 13:35 | Outpatient (BNVA) | payer OTHER, SELFPAY | PROVIDERS: PCP Nurse Practitioner Family; Visit Provider Surgery | DX: Z47.81 Encounter for orthopedic aftercare following surgical amputation (principal); E11.9 Type 2 diabetes mellitus without complications; Z89.511 Acquired absence of right leg below knee | CPT/HCPCS: 99212 ==

== ENCOUNTER 2023-07-26 16:21 | Emergency (ER) | payer OTHER, SELFPAY ==
--- NOTE | ~2023-07-26 | CT_ITS ---
EXAMINATION: CT HEAD WITHOUT CONTRAST CT CERVICAL SPINE WITHOUT CONTRAST CLINICAL INFORMATION: Neck pain. Left arm weakness. COMPARISON: None available. TECHNIQUE: Contiguous axial imaging was performed from the skull base to vertex without intravenous administration of contrast. Contiguous axial imaging was performed from the upper chest through the skull base without intravenous administration of contrast. Coronal and sagittal reformats were obtained at the acquisition workstation. This CT examination was performed using dose optimization techniques as appropriate, variously including the following: *Automated exposure control. *Adjustment of mA and/or kV according to patient size (this includes techniques or standardized protocols for targeted exams where dose is matched to indication/reason for exam; i.e. extremities or head). *Use of iterative reconstruction technique. DLP: 1709 mGy-cm FINDINGS: Head: There is no evidence of acute intracranial hemorrhage or edematous territorial infarction. Resendiz-white matter differentiation is preserved. Scattered and partially confluent hypoattenuation in the periventricular and deep white matter are consistent with moderate to extensive microangiopathy. Proportional prominence of the ventricles and sulcal spaces without evidence of obstructive hydrocephalus. Normal posterior callosal angle. No abnormal mass effect or midline shift. No extra-axial fluid collections. No acute soft tissue or osseous abnormalities. Mild mucosal thickening of the paranasal sinuses. Mild leftward nasal septal deviation. The mastoid air cells and middle ear cavities are clear. Cervical Spine: The atlantooccipital and atlantoaxial articulations remain well aligned. Straightening of the normal cervical lordosis. Otherwise, there is anatomic alignment of the vertebral bodies and posterior elements. No evidence of acute fracture or subluxation. Moderate loss of C6 vertebral body height with partial erosive changes of the C6-C7 disc space. The remaining vertebral body heights are well-maintained. Partial ossification of the posterior longitudinal ligament from C4-C6. Disc-osteophyte complex formation at C5-C6 and C6-C7. There appears to be at least mild spinal canal stenosis from C5-C7. Advanced disc degeneration at C5-C6 and C6-C7. Facet and uncovertebral joint arthropathy leads to osseous encroachment on the neural foramina from C5-C7. There is no prevertebral soft tissue swelling. The thyroid gland and remaining cervical soft tissues are within normal limits. The lung apices demonstrate no abnormalities. CT/CT cervical spine wo IV con IMPRESSION: 1. No evidence of acute intracranial hemorrhage or edematous territorial infarction. 2. Moderate to extensive underlying microangiopathy and generalized cerebral volume loss. 3. No evidence of acute fracture or traumatic subluxation of the cervical spine. 4. Moderate multilevel degenerative spondyloarthropathy of the cervical spine as described in detail above. Partial opacification of the posterior longitudinal ligament from C4-C6. Most notably on this limited exam without intrathecal contrast, there appears to be at least mild spinal canal stenosis from C5-C7. 5. Along with advanced disc degeneration at C5-C6 and C6-C7, there are erosive changes of the C6-C7 disc space. This may be related to advanced degenerative spondyloarthropathy; however, it would be difficult to fully exclude an infectious/inflammatory process in the appropriate clinical setting.
[2023-07-26 16:33] VITALS: BP 201/94; PULSE 84; O2SAT 97
[2023-07-26 16:38] VITALS: BP 168/66; PULSE 67; RESP 16; TEMP 36.9; O2SAT 96; BMI 32.0
--- NOTE | 2023-07-26 16:46 | PC.NURSE ---
pt arrived via [facility] reporting L. forearm numbness onset today 0700. L. sided weakness noted of L. side. no facial droop noted, pt denies dizziness/CHANEY/n/v/d/cp/sob. vss. axox4. neuros intact otherwise. awaiting primary eval by ed provider. call rodríguez within reach.
--- OUTSIDE RECORDS SUMMARY | 2023-07-26 17:39 | XMS_ITS | Continuity of Care Document ---
Author Name Unknown Organization [facility] Adult Address [address] [place] [address]- Care Team Providers Care K 9 Police Officer Name Role Phone Vince HOLLEY, [facility] Primary Care Physician ( [phone] Encounter [facility] [place] Date(s): 04/15/23 - 05/15/23 [facility] [address] [place] [address]- Allergies, Adverse Reactions, Alerts Substance Reaction Severity Status Contrast Dye Active Immunizations Given and Recorded Vaccine Date Status Refusal Reason influenza virus vaccine, inactivated 08/08/20 Ion rded influenza virus vaccine, inactivated 1 02/01/20 Gi rey influenza virus vaccine, inactivated 09/14/16 Ion rded pneumococcal 23-valent vaccine 2 07/21/19 Given tetanus-diphtheria toxoids (Td) 02/21/13 Recorded 1Result Comment: [facility]: [id number] 2Result Comment: [facility] [id number] Medications amitriptyline 50 mg oral tablet 1 tablet, By Mouth, Daily at bedtime, # 30 tablet, 2 Refills, Maintenance, 03/25/23 12:33:00 EDT, [id number], 178.2, cm, 02/22/23 13:29:00 EDT, Height Start Date: 03/25/23 Status: Ordered BD INSULIN SYR UF 1 ML [id number] BD INSULIN SYR UF 1 ML [id number], See Instructions, # 30 Unknown, 4 Refills, Maintenance, USE TO INJECT LANTUS INSULIN DAILY DX: TYPE 2 DM ICD 10: E11.9, 03/14/23 10:14:00 EDT, 178.2, cm, 02/22/23 13:29:00 EDT, Height Start Date: 03/14/23 Status: Ordered BD INSULIN SYR UF 1 ML [id number] See Instructions, # 30 Unknown, Refills 5 Tot. Refills 5, USE TO INJECT LANTUS INSULIN DAILY DX: TYPE 2 DM ICD 10: E11.9, [id number] Start Date: 04/23/19 Status: Ordered Freestyle Lite Lancets See Instructions, # 100 each, Refills 3, Tot. Refills 3, Maintenance, Use to check blood sugars three times a day Dx: Type 2 DM ICD 10: E11.9, 01/14/19 9:59:44 EST, Compound Start Date: 01/14/19 Status: Ordered Freestyle Lite Monitor See Instructions, # 1 each, Maintenance, Used to test blood sugars twice daily DX: Type 2 DM E11.9,04/21/19 9:46:09 EDT, Compound Start Date: 04/21/19 Status: Ordered Freestyle Lite Monitor See Instructions, # 1 each, Maintenance, use once daily to monitor blood sugar, 05/20/20 17:25:00 EDT, [facility], 178.2, cm, 02/01/20 9:47:00 EDT, Height Start Date: 05/20/20 Status: Ordered FREESTYLE LITE TEST STRIP FREESTYLE LITE TEST STRIP, See Instructions, # 100 Unknown, 5 Refills, Maintenance, USE TO TEST BLOOD SUGARS THREE TIMES A DAY DX: TYPE 2 DM ICD 10: E11.9, 03/25/23 12:33:00 EDT, 178.2, cm, 02/22/23 13:29:00 EDT, Height Start Date: 03/25/23 Status: Ordered FREESTYLE LITE TEST STRIP FREESTYLE LITE TEST STRIP, See Instructions, # 100 Unknown, 5 Refills, USE TO TEST BLOOD SUGARS THREE TIMES A DAY DX: TYPE 2 DM ICD 10: E11.9, 178.2, cm, 11/25/20 9:56:00 EST, Height Start Date: 08/21/21 Status: Ordered FREESTYLE LITE TEST STRIP FREESTYLE LITE TEST STRIP, See Instructions, # 100 Unknown, 5 Refills, USE TO TEST BLOOD SUGARS THREE TIMES A DAY DX: TYPE 2 DM ICD 10: E11.9, 178.2, cm, 11/25/20 9:56:00 EST, Height Start Date: 02/05/22 Status: Ordered FREESTYLE LITE TEST STRIP FREESTYLE LITE TEST STRIP, See Instructions, # 100 Unknown, 5 Refills, Maintenance, USE TO TEST BLOOD SUGARS THREE TIMES A DAY DX: TYPE 2 DM ICD 10: E11.9, 07/30/22 9:22:00 EDT, 178.2, cm, 11/25/20 9:56:00 EST, Height Start Date: 07/30/22 Status: Ordered FREESTYLE LITE TEST STRIP See Instructions, # 100 Unknown, Refills 11 Tot. Refills 11, USE TO TEST BLOOD SUGARS THREE TIMES ADAY, [id number] Start Date: 05/08/19 Status: Ordered Freestyle Lite Test Strips See Instructions, # 100 each, Refills 5, Tot. Refills 5, Maintenance, Use to test blood sugars three times a day Dx: Type 2 DM ICD 10: E11.9, 02/23/21 11:16:00 EDT, [facility], 178.2, cm, 11/25/20 9:56:00 EST, Height Start Date: 02/23/21 Status: Ordered glipiZIDE 2.5 mg oral tablet, extended release See Instructions, TAKE 1 TABLET BY MOUTH EVERY DAY WITH BREAKFAST, # 90 tablet, 0 Refills, Maintenance, 02/11/23 15:29:00 EDT, [id number] Start Date: 02/11/23 Status: Ordered Insulin Syringe, BD Ultra-Fine 1 cc 31 G x 8 mm (5/16in) See Instructions, # 30 each, Refills 5, Tot. Refills 5, Maintenance, Use to inject lantus insulin daily Dx: Type 2 DM ICD 10: E11.9, 02/05/22 15:39:00 EDT, [facility], 178.2, cm, 11/25/20 9:56:00 EST, Height Start Date: 02/05/22 Status: Ordered Lantus 100 u/ml subcutaneous solution See Instructions, INJECT 40 UNITS SUBCUTANEOUSLY TWICE A DAY, # 30 mL, 3 Refills, Maintenance, 03/25/23 9:13:00 EDT, [id number], 178.2, cm, 02/22/23 13:29:00 EDT, Height Start Date: 03/25/23 Status: Ordered Methadone By Mouth, 0 Refills, Maintenance, 12/03/18 12:59:02 EST Start Date: 1/23/19 Status: Ordered Tiadylt ER 120 mg/24 hours oral capsule, extended release 1 capsule, By Mouth, Daily, # 90 capsule, 0 Refills, Maintenance, 02/11/23 15:29:00 EDT, [facility] Start Date: 02/11/23 Status: Ordered Problem List Condition Confirmation Course Effective Dates Status H ealth Status Informant Amputation at midfoot Confirmed Active Atrial fibrillation Confirmed Active Diabetes mellitus Confirmed Active Hypertension Confirmed Active Microalbuminuria due to type 2 diabetes mellitus Confirmed Active Methadone maintenance therapy patient Confirmed Active Tobacco abuse Confirmed Active Diabetic neuropathy, type II diabetes mellitus Confirmed Active Uncontrolled type 2 diabetes mellitus Confirmed Active Social History Social History Type Response Smoking Status 10 or more cigarette s (1/2 pack or more)/day in last 30 days entered on: 01/14/19 Sex Patient Care team information Care Team Personnel Name: Mac Clarke MD Position: S Physician - Primary Care Member Role: PCP Address: Address: [address] [place] [address] [address] [place] [address]- Care Team Related Persons Name: CHARLY FLORES Address: home [address] [place] [address]
--- OUTSIDE RECORDS SUMMARY | 2023-07-26 17:40 | XMS_ITS | Continuity of Care Document ---
Author Name Unknown Organization [facility] Adult Address [address] [place] [address]- Care Team Providers Care Office Assistant Receptionist Name Role Phone Vince HOLLEY, [facility] Primary Care Physician [place] [facility] [place]/12/23 [facility] [address] [place] [address]- Allergies, Adverse Reactions, Alerts Substance Reaction Severity Status Contrast Dye Active Immunizations Given and Recorded Vaccine Date Status Refusal Reason influenza virus vaccine, inactivated 08/08/20 Ion rded influenza virus vaccine, inactivated 1 02/01/20 Gi rey influenza virus vaccine, inactivated 09/14/16 Ion rded pneumococcal 23-valent vaccine 2 07/21/19 Given tetanus-diphtheria toxoids (Td) 02/21/13 Recorded 1Result Comment: [facility]: [id number] 2Result Comment: [facility] [id number] Medications amitriptyline 50 mg oral tablet 1 tablet, By Mouth, Daily at bedtime, # 30 tablet, 2 Refills, Maintenance, 03/25/23 12:33:00 EDT, [facility], 178.2, cm, 02/22/23 13:29:00 EDT, Height Start Date: 03/25/23 Status: Ordered BD INSULIN SYR UF 1 ML [id number] BD INSULIN SYR UF 1 ML [id number], See Instructions, # 30 Unknown, 4 Refills, Maintenance, USE TO INJECT LANTUS INSULIN DAILY DX: TYPE 2 DM ICD 10: E11.9, 03/14/23 10:14:00 EDT, 178.2, cm, 02/22/23 13:29:00 EDT, Height Start Date: 03/14/23 Status: Ordered BD INSULIN SYR UF 1 ML [id number] See Instructions, # 30 Unknown, Refills 5 [...] TO TEST BLOOD SUGARS THREE TIMES ADAY, [id number] Start Date: 05/08/19 Status: Ordered [...] tablet, 0 Refills, Maintenance, 02/11/23 15:29:00 EDT, [id number] Start Date: 02/11/23 Status: Ordered Insulin Syringe, [...] Refills, Maintenance, 03/25/23 9:13:00 EDT, [facility], 178.2, cm, 02/22/23 13:29:00 EDT, Height Start Date: 03/25/23 Status: Ordered Methadone By Mouth, 0 Refills, Maintenance, 12/03/18 12:59:02 EST Start Date: 1/23/19 Status: Ordered Tiadylt ER 120 mg/24 hours oral capsule, extended release 1 capsule, By Mouth, Daily, # 90 capsule, 0 Refills, Maintenance, 02/11/23 15:29:00 EDT, [facility] Start Date: 02/11/23 Status: Ordered Problem List [...] Primary Care Member Role: PCP Address: Address: [address] [place] [address] [address] [place] [address]- Care Team Related Persons Name: CHARLY FLORES Address: home [address] [place] [address]
--- OUTSIDE RECORDS SUMMARY | 2023-07-26 17:40 | XMS_ITS | Continuity of Care Document ---
Author Name Unknown Organization [facility] Adult Address [address] [place] [address]- Care Team Providers Care Telephone Service Adviser Name Role Phone Vince HOLLEY, [facility] Primary Care Physician [place] [facility] [place] - 06/30/23 [facility] [address] [place] [address]- Allergies, Adverse Reactions, Alerts Substance Reaction Severity Status Contrast Dye Active Immunizations Given and Recorded Vaccine Date Status Refusal Reason influenza virus vaccine, inactivated 08/08/20 Ion rded influenza virus vaccine, inactivated 1 02/01/20 Gi rey influenza virus vaccine, inactivated 09/14/16 Ion rded pneumococcal 23-valent vaccine 2 07/21/19 Given tetanus-diphtheria toxoids (Td) 02/21/13 Recorded 1Result Comment: [facility]: [id number] 2Result Comment: [facility] [id number] Medications amitriptyline 50 mg oral tablet 1 tablet, By Mouth, Daily at bedtime, # 30 tablet, 2 Refills, Maintenance, 03/25/23 12:33:00 EDT, [facility], 178.2, cm, 02/22/23 13:29:00 EDT, Height Start Date: 03/25/23 Status: Ordered BD INSULIN SYR UF 1 ML [id number] BD INSULIN SYR UF 1 ML [id number], See Instructions, # 30 Unknown, 4 Refills, Maintenance, USE TO INJECT LANTUS INSULIN DAILY DX: TYPE 2 DM ICD 10: E11.9, 03/14/23 10:14:00 EDT, 178.2, cm, 02/22/23 13:29:00 EDT, Height Start Date: 03/14/23 Status: Ordered BD INSULIN SYR UF 1 ML [id number] See Instructions, # 30 Unknown, Refills 5 [...] TO TEST BLOOD SUGARS THREE TIMES ADAY, [facility]/pharmacy #[id number] Start Date: 05/08/19 Status: Ordered [...] tablet, 0 Refills, Maintenance, 02/11/23 15:29:00 EDT, [facility]25 Start Date: 02/11/23 Status: Ordered Insulin Syringe, [...] Refills, Maintenance, 03/25/23 9:13:00 EDT, [facility], 178.2, cm, 02/22/23 13:29:00 EDT, Height Start Date: 03/25/23 Status: Ordered Methadone By Mouth, 0 Refills, Maintenance, 12/03/18 12:59:02 EST Start Date: 12/03/18 Status: Ordered Tiadylt ER 120 mg/24 hours oral capsule, extended release 1 capsule, By Mouth, Daily, # 90 capsule, 1 Refills, Maintenance, 05/31/23 16:44:00 EDT, [id number], 178.2, cm, 02/22/23 13:29:00 EDT, Height Start Date: 05/31/23 Status: Ordered Problem List Condition Confirmation Course [...] Primary Care Member Role: PCP Address: Address: [address] [place] [address] [address] [place] [address]- Care Team Related Persons Name: CHARLY FLORES Address: home [address] [place] [address]
[2023-07-26 19:09] VITALS: BP 168/68; PULSE 63; RESP 16; TEMP 36.8; O2SAT 98
--- NOTE | 2023-07-26 20:00 | ED_ITS ---
HPI - Extremity Problem General Chief complaint: Extremity Problem Stated complaint: L ARM NUMBNESS Time Seen by Provider: 07/26/23 16:24 Related Data Home Medications Medication Instructions Recorded Confirmed insulin glargine 100 unit/mL 40 unit subcut BID 08/11/20 04/04/23 subcutaneous solution (Lantus U-100 Insulin) amitriptyline 50 mg tablet 50 mg PO BEDTIME 12/09/20 04/04/23 blood sugar diagnostic (FreeStyle #10 ea 03/08/22 04/04/23 Lite Strips) insulin syringe-needle U-100 1 mL #10 ea 03/08/22 04/04/23 31 gauge x 5/16 (BD Insulin Syringe Ultra-Fine) methadone 5 mg tablet 85 mg PO DAILY 02/07/23 04/04/23 glipizide 2.5 mg tablet, extended 2.5 mg PO QAM 03/04/23 04/04/23 release 24 hr Previous Rx's Medication Instructions Recorded Off loading shoe #1 ea 12/28/20 bismuth tribrom-petrolatum,wh 1 X #200 ea 02/21/21 8 bandage (Xeroform Petrolatum Dressing) adhesive tape 2 X 10 yard #1 ea 06/16/21 gauze bandage 3 X 3 (Band-Aid #25 ea 06/16/21 Gauze Pads) gauze bandage 4 X 2.5 yard #30 ea 06/16/21 (Band-Aid Rolled Gauze) prosthetics (prosthetic) #1 ea 06/16/21 diphenhydramine HCl 25 mg capsule 50 mg (2 x 25 mg) PO ONCE sleep #2 07/30/22 (Benadryl) caps hydrocortisone 2.5 % topical cream 1 appl topical BID PRN skin 08/09/22 irritation #20 grams chair, wheel (Wheel chair) #1 ea 03/12/23 diltiazem HCl 120 mg 120 mg PO BID #60 caps 03/12/23 capsule,extended release 24 hr (Cardizem CD) hydralazine 25 mg tablet 25 mg PO TID #90 tabs 03/12/23 Bedside commode #1 ea 04/18/23 Shower Chair #1 ea 04/18/23 Walker #1 ea 05/06/23 doxycycline hyclate 100 mg tablet 100 mg PO BID #28 tabs 07/23/23 Allergies Allergy/AdvReac Type Severity Reaction Status Date / Time furosemide [Lasix] Allergy Intermediate Hives Verified 04/03/23 14:05 levofloxacin [Levaquin] Allergy Unknown Gastrointestinal Verified 04/03/23 14:05 Upset metronidazole [Flagyl] Allergy Unknown Unknown Verified 04/03/23 14:05 latex Allergy Rash Verified 04/03/23 14:05 contrast dye Allergy Unknown rash, hives Uncoded 04/03/23 14:05 PMFSH Past Medical History Medical History Atrial fibrillation Diabetes Diabetic ulcer of right foot Hx of hepatitis Hypertension Surgical History History of amputation of toe (~10/21/13) History of amputation of toe (~08/18/14) History of lipoma History of transmetatarsal amputation of foot (~09/2016) History of transmetatarsal amputation of right foot 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) Family History Family History Father History of lung cancer Mother History of diabetes mellitus Social History Social History Household Members: Other Housing: Other Housing Other:: patient is homeless, couch surfing with friends/family Do you presently have visiting nurse or other home services: Yes Alcohol intake: never Patient Tobacco Use Status: Current everyday Tobacco user Tobacco use type: Cigarette Cigarettes Per Day: 10 Years Smoked: 46 Smoked in Last 30 Days: Yes Second Hand Smoke Exposure: Yes Use of substances other than those prescribed or required for medical reasons: Yes Substance Use Type: Crack/Cocaine Last Used Substance: Days (ago) Advance Directives: No Advance Directives Information Provided: Yes service: No Physical Exam 2 Vital Signs: Vital Signs: Last Vital Signs Temp 97.8 F 07/26/23 22:40 Pulse 62 07/26/23 22:40 Resp 16 07/26/23 22:40 BP 178/88 H 07/26/23 22:40 Pulse Ox 99 07/26/23 22:40 O2 Del Method Room Air 07/26/23 22:40 BMI result Body Mass Index 32.0 NIH Stroke Scale Time: 23:31 Level of Consciousness: Alert Level of Consciousness Questions: Answers both questions correctly Level of Consciousness Commands: Performs both tasks correctly Best Gaze: Normal Visual: No visual loss Facial Palsy: Normal Motor Arm (Right): No drift Motor Arm (Left): No drift Motor Leg (Right): No drift Motor Leg (Left): No drift Limb Ataxia: Absent Sensory: Normal Best Language: No aphasia Dysarthia: Normal Extinction and Inattention: No abnormality Score: 0 Medical Decision Making Medical Decision Making [facility] Narrative: Patient is well-appearing neurologically intact. NIH stroke scale is 0. Patient did have weakness on movement of the left fingers and wrist. The symptoms started when patient woke up. There is no shoulder weakness there is no elbow weakness there is no fever there is no chills. There is no pain. Patient apparently slept on that arm. Denies any trauma. CT scan of the head by my interpretation showed no acute evidence of bleeding. CT scan of C-spine showed no evidence of fracture malalignment. Patient's pulses are 2+ at radial. Capillary refill less than 2 seconds. While patient was getting his studies done his symptom actually improved. He claims movement of his hand movement of his wrist is mostly back. His symptom is not consistent with CVA or TIA as it is very localized over the wrist and hand. No involvement of the elbow no involvement of the shoulder. Patient in no distress wants to go home did not want to stay in the hospital. Will have patient closely follow up on an outpatient basis. He does have a long history of diabetes. His labs showed no evidence of anemia. His electrolytes are normal. Lab Data 07/26/23 20:26 07/26/23 20:26 Labs: Lab Results 07/26/23 Range/Units 20:26 WBC 10.6 (4.8-10.8) X10*3/uL RBC 4.28 L D (4.60-5.80) X10*6/uL Hgb 10.9 L D (14.0-18.0) g/dl Hct 35.0 L D (42.0-52.0) % MCV 81.8 (80.0-98.0) fL MCH 25.5 L (27.0-33.0) pg MCHC 31.1 (31.0-36.0) g/dl RDW 14.4 (11.0-16.0) % Plt Count 316 D (160-400) X10*3/uL MPV 10.2 (9.4-12.4) fL Immature Gran % (Auto) 0.3 (0.0-0.4) % Neut % (Auto) 68.8 (45-73) % Lymph % (Auto) 23.1 (20-40) % [place] % (Auto) 6.1 (2-11) % Eos % (Auto) 1.4 (0-4) % Baso % (Auto) 0.3 (0-2) % Lymph # (Auto) 2.4 (1.2-4.9) X10*3/uL [place] # (Auto) 0.6 (0.1-1.2) X10*3/uL Eos # (Auto) 0.2 (0.0-0.4) X10*3/uL Baso # (Auto) 0.0 (0.0-0.2) X10*3/uL Abs Immat Gran (auto) 0.03 (0.00-0.03) X10*3/uL Absolute Neuts (auto) 7.3 (2.0-8.3) x10*3/uL Absolute Nucleated RBC 0.000 (0.0-0.012) X10*3/uL Nucleated RBC % (auto) 0.0 (0.0-0.2) /100WBC PT 14.1 H (11.1-13.3) SEC INR 1.2 H (0.9-1.1) Sodium 140 (135-145) mmol/L Potassium 4.7 (3.3-5.1) mmol/L Chloride 103 (96-108) mmol/L Carbon Dioxide 29 (22-29) mmol/L Anion Gap 13 (12-20) BUN 17 H (9-16) mg/dL Creatinine 0.81 (0.5-1.4) mg/dL Estim Creat Clear Calc 121.1 Estimated GFR > 60 Random Glucose 130 H (60-115) mg/dL Calcium 9.4 (8.4-10.2) mg/dL Discharge Plan Discharge Clinical Impression: Neuropraxia of left upper extremity Patient Disposition: Home, Self-Care Instructions: Diabetic Peripheral Neuropathy (ED), Paresthesia (ED), Peripheral Neuropathy (ED) Prescriptions: No Action (DME) Off loading shoe large See Rx Instructions .Route .MEDSUPPLY Qty: 1 0RF Rx Instructions: As directed (DME) Xeroform Petrolatum Dressing 1 X 8 bandage See Rx Instructions .ROUTE .MEDSUPPLY Qty: 200 0RF Rx Instructions: apply to foot wound daily (DME) Band-Aid Gauze Pads 3 X 3 bandage See Rx Instructions .ROUTE .MEDSUPPLY Qty: 25 3RF Rx Instructions: apply to foot wound daily (DME) Band-Aid Rolled Gauze 4 X 2.5 -yard bandage See Rx Instructions .ROUTE .MEDSUPPLY Qty: 30 3RF Rx Instructions: apply to foot wound daily (DME) adhesive tape 2 X 10 -yard tape See Rx Instructions .ROUTE .MEDSUPPLY Qty: 1 3RF Rx Instructions: apply to foot wound daily (DME) prosthetic Kit See Rx Instructions .Route Qty: 1 0RF Rx Instructions: As directed diphenhydramine HCl [Benadryl] 25 mg capsule 50 mg PO ONCE Qty: 2 0RF Rx Instructions: Take both capsules (totaling 50 mg) one hour prior to the procedure. (DME) Bedside commode See Rx Instructions .Route .MEDSUPPLY Qty: 1 0RF Rx Instructions: As directed (DME) Shower Chair See Rx Instructions .Route .MEDSUPPLY Qty: 1 0RF Rx Instructions: As directed (DME) Walker See Rx Instructions .Route .MEDSUPPLY Qty: 1 0RF Rx Instructions: As directed doxycycline hyclate 100 mg tablet 100 mg PO BID Qty: 28 0RF amitriptyline 50 mg Tablet 50 mg PO BEDTIME glipizide 2.5 mg tablet extended release 24hr 2.5 mg PO QAM hydralazine 25 mg Tablet 25 mg PO TID Qty: 90 0RF Protocol: Hold for SBP< HOLD for SBP < : 90 diltiazem HCl [Cardizem CD] 120 mg Capsule,Extended Release 24hr 120 mg PO BID Qty: 60 0RF Protocol: Hold for SBP/HR < HOLD for SBP < : 90 HOLD for HR < : 60 (DME) Wheel chair Kit See Rx Instructions .Route Qty: 1 0RF Rx Instructions: As directed Lantus U-100 Insulin 100 unit/mL solution 40 unit subcut BID methadone 5 mg tablet 85 mg PO DAILY (DME) FreeStyle Lite Strips Strip See Rx Instructions Not Applicable TID Qty: 10 Rx Instructions: As directed (DME) insulin syringe-needle U-100 [BD Insulin Syringe Ultra-Fine] 1 mL 31 gauge x 5/16 syringe See Rx Instructions .ROUTE DAILY Qty: 10 Rx Instructions: As directed hydrocortisone 2.5 % cream 1 appl topical BID PRN (Reason: skin irritation) Qty: 20 0RF Rx Instructions: Apply to right calf skin Referrals: Jay Chapa MD [Physician] - 07/29/23
[2023-07-26 20:23] VITALS: BP 176/87; PULSE 63; RESP 16; TEMP 36.9; O2SAT 100
[2023-07-26 20:31] LABS: MANUAL DIFF FLAG NO
[2023-07-26 20:42] LABS: Basophils Percent Auto 0.3 % (0-2); Eosinophils Absolute Auto 0.2 X10*3/uL (0.0-0.4); Eosinophils Percent Auto 1.4 % (0-4); Hemoglobin 10.9 g/dl (14.0-18.0); Imm Gran Abs Auto 0.03 X10*3/uL (0.00-0.03); Imm Gran Pct Auto 0.3 % (0.0-0.4); Lymphocytes Absolute Auto 2.4 X10*3/uL (1.2-4.9); Lymphocytes Percent Auto 23.1 % (20-40); Mean Corpuscular HGB Conc 31.1 g/dl (31.0-36.0); Mean Corpuscular Hemoglobin 25.5 pg (27.0-33.0); Mean Corpuscular Volume 81.8 fL (80.0-98.0); Mean Platelet Volume 10.2 fL (9.4-12.4); Monocytes Absolute Auto 0.6 X10*3/uL (0.1-1.2); Monocytes Percent Auto 6.1 % (2-11); Neutrophils Absolute Auto 7.3 x10*3/uL (2.0-8.3); Neutrophils Percent Auto 68.8 % (45-73); Platelet Count 316 X10*3/uL (160-400); Red Blood Count 4.28 X10*6/uL (4.60-5.80); Red Cell Distribution Width 14.4 % (11.0-16.0); White Blood Count 10.6 X10*3/uL (4.8-10.8)
[2023-07-26 20:43] LABS: Anion Gap 13 (12-20); Blood Urea Nitrogen 17 mg/dL (9-16); Calcium 9.4 mg/dL (8.4-10.2); Carbon Dioxide 29 mmol/L (22-29); Chloride 103 mmol/L (96-108); Creatinine Clr Calc Pharmacy 121.1; Estimated Glomerular Filt Rate > 60; Glucose Random 130 mg/dL (60-115); Potassium 4.7 mmol/L (3.3-5.1); Sodium 140 mmol/L (135-145)
[2023-07-26 21:02] LABS: INTERNATIONAL NORM RATIO 1.2 (0.9-1.1); Prothrombin Time 14.1 SEC (11.1-13.3)
[2023-07-26 22:40] VITALS: BP 178/88; PULSE 62; RESP 16; TEMP 36.6; O2SAT 99
--- NOTE | 2023-07-26 23:15 | PC.NURSE ---
This typewriter aligner assumed care at 1900, pt AOx3, pt resting in wheelchair, reports decreased numbness in left shoulder, now in forearm. Pt denies pain. Neuro is intact
== END 2023-07-26 23:50 | disposition home or self-care (01) ==
PROVIDERS: Emergency Provider Emergency Medicine Emergency Medical Services
DX: S44.92XA Injury of unspecified nerve at shoulder and upper arm level, left arm, initial encounter (principal); X50.1XXA Overexertion from prolonged static or awkward postures, initial encounter; R29.700 NIHSS score 0; E11.9 Type 2 diabetes mellitus without complications; I10 Essential (primary) hypertension; I48.91 Unspecified atrial fibrillation; F17.210 Nicotine dependence, cigarettes, uncomplicated; Z79.899 Other long term (current) drug therapy; Z79.4 Long term (current) use of insulin; Y93.9 Activity, unspecified; Y92.9 Unspecified place or not applicable; Y99.9 Unspecified external cause status
CPT/HCPCS: 36415; 70450; 72125; 80048; 85025; 85610; 99284

== ENCOUNTER 2023-08-20 14:00 | Outpatient (AMB) | payer OTHER, SELFPAY ==
--- NOTE | 2023-08-20 14:21 | MHC.OFFVIS ---
Intake Vital Signs 08/20/23 14:29 BMI Reason not done Patient refused/unable BP not taken reason Medical Reason Intake Visit Reasons: Follow up BKA, right Intake Note: This patient presents for a follow-up assessment BKA, right. Patient c/o; reports no changes. Loop Tacker Required: No Accompanied by: Self / Same As Patient Allergies furosemide [Lasix] Allergy (Intermediate, Verified 08/20/23 14:27) Hives levofloxacin [Levaquin] Allergy (Unknown, Verified 08/20/23 14:) Gastrointestinal Upset metronidazole [Flagyl] Allergy (Unknown, Verified 08/20/23:) Unknown latex Allergy (Verified 08/20/23:) Rash contrast dye Allergy (Unknown, Uncoded 08/20/23:) rash, hives HPI HPI Comments History of Present Illness Details Patient presents with skin redness and ulceration on the fenton of the left leg. He took antibiotics last week but continues to have redness. He denies fever or chills. The right BKA stump is well healed but he is awaiting physical therapy still. He is living on the 4th floor and need to come down the stairs on his buttocks to get to the chair van. 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 History of transmetatarsal amputation of foot (~09/2016) History of amputation of toe (~08/18/14) History of amputation of toe (~10/21/13) History of lipoma Family History Father History of lung cancer Mother History of diabetes mellitus Social History Household Members: Other Housing: Other Housing Other:: patient is homeless, couch surfing with friends/family Do you presently have visiting nurse or other home services: Yes Alcohol intake: never Patient Tobacco Use Status: Current everyday Tobacco user Tobacco use type: Cigarette Cigarettes Per Day: 10 Years Smoked: 46 Second Hand Smoke Exposure: Yes Substance Use Type: Crack/Cocaine service: No Review of Systems Const All systems reviewed & are unremarkable except as noted in HPI and below Physical Exam Const General: no acute distress Resp Effort & Inspection: normal respiratory effort Skin General skin exam: no rashes or lesions noted Extrem Other: S/P right BKA. Wounds are clean and intact. No redness or discharge appreciated. There is some edema at the stump. Right leg with apparent macular rash suggestive of a contact dermatitis. An open wound is identified in the fenton. This measures approximately 5 mm in diameter. No other wounds are identified. Upper/lower leg/hip images: 1. Site of open wound. Assessment & Plan Assessment & Plan (1) Skin infection: Code(s): L08.9 - Local infection of the skin and subcutaneous tissue, unspecified (2) Below knee amputation: Code(s): S88.119A - Complete traumatic amputation at level between knee and ankle, unspecified lower leg, initial encounter (3) Diabetes: Comment: IDDM Poorly controlled Code(s): E11.9 - Type 2 diabetes mellitus without complications Plan Status post right BKA now with a wound on the left leg. Will resume antibiotics and apply Bactroban to the open wound. Physical therapy will be consulted once again. Should follow-up in 1 month. Orders: Orders PT Evaluation and Treatment Today E11.9 - Type 2 diabetes mellitus without complications, S88.119A - Complete traumatic amputation at level between knee and ankle, unspecified lower leg, initial encounter Medications: New mupirocin calcium 2% 1 appl topical BID 30 grams 0RF L08.9 - Local infection of the skin and subcutaneous tissue, unspecified Refilled doxycycline hyclate 100 mg PO BID 28 tabs 0RF L08.9 - Local infection of the skin and subcutaneous tissue, unspecified, S88.119A - Complete traumatic amputation at level between knee and ankle, unspecified lower leg, initial encounter Coding Level of Care Code Est Pt Level 3 (56154) Diagnoses Skin infection L08.9 Below knee amputation S88.119A Diabetes E11.9
== END 2023-08-20 14:39 | disposition home or self-care (01) ==
PROVIDERS: Visit Provider Surgery
DX: L08.9 Local infection of the skin and subcutaneous tissue, unspecified (principal); Z89.511 Acquired absence of right leg below knee; E11.9 Type 2 diabetes mellitus without complications
CPT/HCPCS: 99213

== ENCOUNTER → 2023-08-20 14:00 | Outpatient (BNVA) | payer OTHER, SELFPAY | PROVIDERS: Visit Provider Surgery | DX: Z47.81 Encounter for orthopedic aftercare following surgical amputation (principal); L08.9 Local infection of the skin and subcutaneous tissue, unspecified; E11.9 Type 2 diabetes mellitus without complications; Z89.512 Acquired absence of left leg below knee | CPT/HCPCS: 99212 ==

== ENCOUNTER 2023-09-24 11:03 | Outpatient (AMB) | payer OTHER, SELFPAY ==
--- NOTE | 2023-09-24 11:06 | MHC.OFFVIS ---
Intake Vital Signs 09/24/23 11:12 Height 6 ft Weight 235 lb 14.314 oz BMI 32.0 Pulse 64 Intake Visit Reasons: Follow up BKA, right Intake Note: Patient is seen in office for follow up visit, post right BKA. Patient c/o: left leg has been swollen and burning pain for the past 4 days, per pt cellulitis , currently the swelling went down some however skin is dry and open Accounts Administrator Required: No Accompanied by: Self / Same As Patient Allergies furosemide [Lasix] Allergy (Intermediate, Verified 09/24/23 11:07) Hives levofloxacin [Levaquin] Allergy (Unknown, Verified 09/24/23 11:07) Gastrointestinal Upset metronidazole [Flagyl] Allergy (Unknown, Verified 09/24/23 11:07) Unknown latex Allergy (Verified 09/24/23 11:07) Rash contrast dye Allergy (Unknown, Uncoded 09/24/23 11:07) rash, hives Medication List - Last Reconciled 09/24/23 by Maynor Cannon MD adhesive tape apply to foot wound daily amitriptyline 50 mg PO BEDTIME [Bedside commode As directed NS] bismuth tribrom-petrolatum,wh 1 X 8 (Xeroform Petrolatum Dressing) apply to foot wound daily blood sugar diagnostic (FreeStyle Lite Strips) As directed chair, wheel (Wheel chair) As directed diltiazem HCl (Cardizem CD) 120 mg See Protocol PO BID diphenhydramine HCl (Benadryl) 50 mg (2 x 25 mg) PO ONCE doxycycline hyclate 100 mg PO BID gauze bandage (Band-Aid Rolled Gauze) apply to foot wound daily gauze bandage (Band-Aid Gauze Pads) apply to foot wound daily glipizide ER 2.5 mg PO QAM hydralazine 25 mg See Protocol PO TID hydrocortisone 2.5% 1 appl topical BID PRN insulin glargine (Lantus U-100 Insulin) 40 units subcut BID insulin syringe-needle U-100 (BD Insulin Syringe Ultra-Fine) As directed methadone 85 mg PO DAILY mupirocin calcium 2% 1 appl topical BID [Off loading shoe As directed] prosthetics (prosthetic) As directed [Shower Chair As directed] [Walker As directed] HPI HPI Comments History of Present Illness Details Patient presents with skin redness and ulceration on the fenton of the left leg. He has some soreness still in the fenton area and posterior calf. There was more swelling earlier in the week but this has decreased significantly. He was unable to get the mupirocin because of lack of coverage by his insurance company. He currently has no dressing on his wounds. Visiting nurses do a come to his apartment daily for medications. He denies any problems in the right BKA stump. He is still waiting for prosthetics. PENDING SALE TO [facility] Medical History Hx of hepatitis Diabetic ulcer of right foot Atrial fibrillation Hypertension Diabetes Surgical History 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 History of transmetatarsal amputation of foot (~09/2016) History of amputation of toe (~08/18/14) History of amputation of toe (~10/21/13) History of lipoma Family History Father History of lung cancer Mother History of diabetes mellitus Social History Household Members: Other Housing: Other Housing Other:: patient is homeless, couch surfing with friends/family Do you presently have visiting nurse or other home services: Yes Alcohol intake: never Patient Tobacco Use Status: Current everyday Tobacco user Tobacco use type: Cigarette Cigarettes Per Day: 10 Years Smoked: 46 Second Hand Smoke Exposure: Yes Substance Use Type: Crack/Cocaine service: No Review of Systems Const All systems reviewed & are unremarkable except as noted in HPI and below Physical Exam Vital Signs: Last Vital Signs Pulse 64 09/24/23 11:12 BMI result Body Mass Index 32.0 Const General: no acute distress Resp Effort & Inspection: normal respiratory effort Skin General skin exam: no rashes or lesions noted Extrem Other: S/P right BKA. Wounds are clean and intact. No redness or discharge appreciated. There is some edema at the stump. Left leg with no further rash however there are 2 open areas in the fenton and area of Achilles. Both are drying crusted with no surrounding erythema. No underlying abscess appreciated. Wounds dressed with bacitracin ointment followed by dry sterile dressings and 3 in Melissa. Assessment & Plan Assessment & Plan (1) Skin infection: Code(s): L08.9 - Local infection of the skin and subcutaneous tissue, unspecified Plan: Recommended applying bacitracin daily to the left leg followed by dry sterile dressings (4 x 4 gauze and 4 in Melissa). Leg should be elevated as much as possible. Follow-up in 1 month. (2) Below knee amputation: Code(s): S88.119A - Complete traumatic amputation at level between knee and ankle, unspecified lower leg, initial encounter Plan: Right BKA is well healed. He is awaiting evaluation by prosthetics. (3) Diabetes: Comment: IDDM Poorly controlled Code(s): E11.9 - Type 2 diabetes mellitus without complications Plan Status post right BKA now with a wound on the left leg. Will resume antibiotics and apply Bactroban to the open wound. Physical therapy will be consulted once again. Should follow-up in 1 month. Medications: New bacitracin zinc (Antibiotic (bacitracin zinc)) 1 appl topical DAILY 14 grams 0RF E11.9 - Type 2 diabetes mellitus without complications, L08.9 - Local infection of the skin and subcutaneous tissue, unspecified, S88.119A - Complete traumatic amputation at level between knee and ankle, unspecified lower leg, initial encounter Refilled gauze bandage (Band-Aid Gauze Pads) apply to foot wound daily 25 ea 3RF E10.621 - Type 1 diabetes mellitus with foot ulcer, L97.412 - Non-pressure chronic ulcer of right heel and midfoot with fat layer exposed gauze bandage (Band-Aid Rolled Gauze) apply to foot wound daily 30 ea 3RF Coding Level of Care Code Est Pt Level 3 (95358) Diagnoses Skin infection L08.9 Below knee amputation S88.119A Diabetes E11.9
[2023-09-24 11:12] VITALS: PULSE 64; BMI 32.0
== END 2023-09-24 11:30 | disposition home or self-care (01) ==
PROVIDERS: Visit Provider Surgery
DX: L08.9 Local infection of the skin and subcutaneous tissue, unspecified (principal); E11.9 Type 2 diabetes mellitus without complications; Z89.511 Acquired absence of right leg below knee
CPT/HCPCS: 99213

== ENCOUNTER → 2023-09-24 11:03 | Outpatient (BNVA) | payer OTHER, SELFPAY | PROVIDERS: Visit Provider Surgery | DX: E11.628 Type 2 diabetes mellitus with other skin complications (principal); L08.9 Local infection of the skin and subcutaneous tissue, unspecified; Z89.511 Acquired absence of right leg below knee | CPT/HCPCS: 99212 ==

== ENCOUNTER 2023-10-24 14:36 | Outpatient (AMB) | payer OTHER, SELFPAY ==
--- NOTE | 2023-10-24 15:04 | A.OFFVIS_ITS ---
Intake Vital Signs 10/24/23 15:08 Height 6 ft Weight 235 lb 14.314 oz BMI 32.0 BP 150/88 H Blood Pressure Location Lt brachial Position Sitting Intake Visit Reasons: one month post right BKA & left leg wound check Intake Note: Patient is seen in office for one month follow up visit, post right BKA & left leg wound. Pt c/o: discharge since last visit, painful, redness, scabby, swollen School Lunch Monitor Required: No Accompanied by: Self / Same As Patient Allergies furosemide [Lasix] Allergy (Intermediate, Verified 10/24/23 15:09) Hives levofloxacin [Levaquin] Allergy (Unknown, Verified 10/24/23 15:09) Gastrointestinal Upset metronidazole [Flagyl] Allergy (Unknown, Verified 10/24/23 15:09) Unknown latex Allergy (Verified 10/24/23 15:09) Rash contrast dye Allergy (Unknown, Uncoded 10/24/23 15:09) rash, hives Medication List - Last Reconciled 10/28/23 by Maynor Cannon MD adhesive tape apply to foot wound daily amitriptyline 50 mg PO BEDTIME bacitracin zinc (Antibiotic (bacitracin zinc)) 1 appl topical DAILY [Bedside commode As directed NS] bismuth tribrom-petrolatum,wh 1 X 8 (Xeroform Petrolatum Dressing) apply to fo ot wound daily blood sugar diagnostic (FreeStyle Lite Strips) As directed chair, wheel (Wheel chair) As directed diltiazem HCl (Cardizem CD) 120 mg See Protocol PO BID diphenhydramine HCl (Benadryl) 50 mg (2 x 25 mg) PO ONCE doxycycline hyclate 100 mg PO BID gauze bandage (Band-Aid Gauze Pads) apply to foot wound daily gauze bandage (Band-Aid Rolled Gauze) apply to foot wound daily glipizide ER 2.5 mg PO QAM hydralazine 25 mg See Protocol PO TID hydrocortisone 2.5% 1 appl topical BID PRN insulin glargine (Lantus U-100 Insulin) 40 units subcut BID insulin syringe-needle U-100 (BD Insulin Syringe Ultra-Fine) As directed methadone 85 mg PO DAILY mupirocin calcium 2% 1 appl topical BID [Off loading shoe As directed] prosthetics (prosthetic) As directed [Shower Chair As directed] [Walker As directed] HPI HPI Comments History of Present Illness Details 62-year-old male patient with history of diabetes mellitus and peripheral vascular disease status post right below-knee amputation now with ulceration and redness involving his left leg. He returns today for wound check. He continues to take his oral antibiotics and is applying his own dressing to the leg. Although the visiting nurses have come to his house for his methadone they are not doing his dressing changes. 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 [facility] Medical History Hx of hepatitis Diabetic ulcer of right foot Atrial fibrillation Hypertension Diabetes Surgical History 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 History of transmetatarsal amputation of foot (~09/2016) History of amputation of toe (~08/18/14) History of amputation of toe (~10/21/13) History of lipoma Family History Father History of lung cancer Mother History of diabetes mellitus Social History Household Members: Other Housing: Other Housing Other:: patient is homeless, couch surfing with friends/family Do you presently have visiting nurse or other home services: Yes Alcohol intake: never Patient Tobacco Use Status: Current everyday Tobacco user Tobacco use type: Cigarette Cigarettes Per Day: 10 Years Smoked: 46 Second Hand Smoke Exposure: Yes Substance Use Type: Crack/Cocaine service: No Review of Systems Const All systems reviewed & are unremarkable except as noted in HPI and below Physical Exam Vital Signs: Last Vital Signs BP 150/88 H 10/24/23 15:08 BMI result Body Mass Index 32.0 Const General: no acute distress Resp Effort & Inspection: normal respiratory effort Skin General skin exam: no rashes or lesions noted Extrem Other: S/P right BKA. Wounds are clean and intact. Commercial Pest Control Representative is in place. Left leg with superficial ulceration involving the fenton with no surrounding cellulitis or necrotic skin. No debridement required at this time. Wounds were dressed with a protective dressing followed by Kerlix and Quentin bandage. Assessment & Plan Assessment & Plan (1) Skin infection: Code(s): L08.9 - Local infection of the skin and subcutaneous tissue, unspecified (2) Below knee amputation: Code(s): S88.119A - Complete traumatic amputation at level between knee and ankle, unspecified lower leg, initial encounter Plan 62-year-old male patient with diabetes and peripheral vascular disease status post right BKA. Ulceration is noted in the left leg at a protective dressing is applied. He should continue with his oral antibiotics. Visiting nurses have been requested for further management of the dressing changes. He should return approximately 2-3 weeks for wound check. Medications: Refilled doxycycline hyclate 100 mg PO BID 40 tabs 0RF L08.9 - Local infection of the skin and subcutaneous tissue, unspecified, S88.119A - Complete traumatic amputation at level between knee and ankle, unspecified lower leg, initial encounter Coding Level of Care Code Est Pt Level 3 (99141) Diagnoses Skin infection L08.9 Below knee amputation S88.119A
[2023-10-24 15:08] VITALS: BP 150/88; BMI 32.0
== END 2023-10-24 15:26 | disposition home or self-care (01) ==
PROVIDERS: Visit Provider Surgery
DX: L08.9 Local infection of the skin and subcutaneous tissue, unspecified (principal); S88.119A Complete traumatic amputation at level between knee and ankle, unspecified lower leg, initial encounter
CPT/HCPCS: 99213

== ENCOUNTER → 2023-10-24 14:36 | Outpatient (BNVA) | payer OTHER, SELFPAY | PROVIDERS: Visit Provider Surgery | DX: Z47.81 Encounter for orthopedic aftercare following surgical amputation (principal); L97.829 Non-pressure chronic ulcer of other part of left lower leg with unspecified severity; E11.622 Type 2 diabetes mellitus with other skin ulcer; L97.929 Non-pressure chronic ulcer of unspecified part of left lower leg with unspecified severity; E11.51 Type 2 diabetes mellitus with diabetic peripheral angiopathy without gangrene; L08.9 Local infection of the skin and subcutaneous tissue, unspecified; Z89.511 Acquired absence of right leg below knee | CPT/HCPCS: 99212 ==

== ENCOUNTER 2024-04-09 11:05 | Inpatient (IN) | payer MEDICAID, SELFPAY ==
--- NOTE | ~2024-04-09 | XR_ITS ---
EXAMINATION: XR LEFT FOOT XR LEFT TIBIA AND FIBULA XR RIGHT KNEE CLINICAL INFORMATION: Wounds. COMPARISON: Left foot study of July 02, 2016. Left tibia and fibula of December 13, 2015. TECHNIQUE: 2 views of the left foot, AP and lateral views of the left tibia and fibula, and AP and lateral views of the right knee. FINDINGS: RIGHT KNEE: There is osteopenia. There is no evidence of acute fracture or dislocation of the right knee. No right knee effusion is appreciated. Right knee joint spaces are maintained. There appears to be some degree of chondrocalcinosis about the medial joint space compartment. There is mild spurring of the patellofemoral joint. Patella spur at the sites of insertion of quadriceps and patella tendons present. Patient is status post [id number] amputation of the right tibia and fibula. There is some edematous change about the stump. No gas within the soft tissues is appreciated. On AP view there is question of some bony irregularity about the distal remaining tibia, which could be related to acute osteomyelitis. MRI could be performed for a better evaluation of possible osteomyelitis. LEFT FOOT: There is osteopenia. Patient is status post transmetatarsal amputations of the 1st through 5th toes. There appears to be fusion of the distal aspects of the 2nd through 4th metatarsals. There is some edematous change within the tissues, without gas. No definite bone irregularity is seen to suggest acute osteomyelitis. MRI would be of help in further evaluation for osteomyelitis. LEFT TIBIA AND FIBULA: There is some soft tissue edema seen about the anterior aspects of the mid tibia and fibula, without acute cortical irregularity and with some smooth periosteal reaction about the medial aspect of the mid tibia, with no gas within the soft tissues, is appreciated. The smooth rather than irregular periosteal reaction is likely related to a chronic process rather than acute osteomyelitis. XR/XR foot LT min 3V IMPRESSION: Finding suggestive of acute osteomyelitis about the distal tibia of the stump, status post below knee amputation, right tibia and fibula. No definite plain film evidence of acute osteomyelitis of the left foot. No definite plain film evidence of acute osteomyelitis of the left tibia and fibula. Edematous change without air within the soft tissues. MRI would be of help in further evaluation if clinically indicated.
--- NOTE | ~2024-04-09 | XR_ITS ---
EXAMINATION: XR LEFT FOOT XR LEFT TIBIA AND FIBULA XR RIGHT KNEE CLINICAL INFORMATION: Wounds. COMPARISON: Left foot study of July 02, 2016. Left tibia and fibula of December 13, 2015. TECHNIQUE: 2 views of the left foot, AP and lateral views of the left tibia and fibula, and AP and lateral views of the right knee. FINDINGS: RIGHT KNEE: There is osteopenia. There is no evidence of acute fracture or dislocation of the right knee. No right knee effusion is appreciated. Right knee joint spaces are maintained. There appears to be some degree of chondrocalcinosis about the medial joint space compartment. There is mild spurring of the patellofemoral joint. Patella spur at the sites of insertion of quadriceps and patella tendons present. Patient is status post [id number] amputation of the right tibia and fibula. There is some edematous change about the stump. No gas within the soft tissues is appreciated. On AP view there is question of some bony irregularity about the distal remaining tibia, which could be related to acute osteomyelitis. MRI could be performed for a better evaluation of possible osteomyelitis. LEFT FOOT: There is osteopenia. Patient is status post transmetatarsal amputations of the 1st through 5th toes. There appears to be fusion of the distal aspects of the 2nd through 4th metatarsals. There is some edematous change within the tissues, without gas. No definite bone irregularity is seen to suggest acute osteomyelitis. MRI would be of help in further evaluation for osteomyelitis. LEFT TIBIA AND FIBULA: There is some soft tissue edema seen about the anterior aspects of the mid tibia and fibula, without acute cortical irregularity and with some smooth periosteal reaction about the medial aspect of the mid tibia, with no gas within the soft tissues, is appreciated. The smooth rather than irregular periosteal reaction is likely related to a chronic process rather than acute osteomyelitis. XR/XR knee RT 3V IMPRESSION: Finding suggestive of acute osteomyelitis about the distal tibia of the stump, status post below knee amputation, right tibia and fibula. No definite plain film evidence of acute osteomyelitis of the left foot. No definite plain film evidence of acute osteomyelitis of the left tibia and fibula. Edematous change without air within the soft tissues. MRI would be of help in further evaluation if clinically indicated.
--- NOTE | ~2024-04-09 | XR_ITS ---
EXAMINATION: XR LEFT FOOT XR LEFT TIBIA AND FIBULA XR RIGHT KNEE CLINICAL INFORMATION: Wounds. COMPARISON: Left foot study of July 02, 2016. Left tibia and fibula of December 13, 2015. TECHNIQUE: 2 views of the left foot, AP and lateral views of the left tibia and fibula, and AP and lateral views of the right knee. FINDINGS: RIGHT KNEE: There is osteopenia. There is no evidence of acute fracture or dislocation of the right knee. No right knee effusion is appreciated. Right knee joint spaces are maintained. There appears to be some degree of chondrocalcinosis about the medial joint space compartment. There is mild spurring of the patellofemoral joint. Patella spur at the sites of insertion of quadriceps and patella tendons present. Patient is status post [id number] amputation of the right tibia and fibula. There is some edematous change about the stump. No gas within the soft tissues is appreciated. On AP view there is question of some bony irregularity about the distal remaining tibia, which could be related to acute osteomyelitis. MRI could be performed for a better evaluation of possible osteomyelitis. LEFT FOOT: There is osteopenia. Patient is status post transmetatarsal amputations of the 1st through 5th toes. There appears to be fusion of the distal aspects of the 2nd through 4th metatarsals. There is some edematous change within the tissues, without gas. No definite bone irregularity is seen to suggest acute osteomyelitis. MRI would be of help in further evaluation for osteomyelitis. LEFT TIBIA AND FIBULA: There is some soft tissue edema seen about the anterior aspects of the mid tibia and fibula, without acute cortical irregularity and with some smooth periosteal reaction about the medial aspect of the mid tibia, with no gas within the soft tissues, is appreciated. The smooth rather than irregular periosteal reaction is likely related to a chronic process rather than acute osteomyelitis. XR/XR tibia fibula LT 2V IMPRESSION: Finding suggestive of acute osteomyelitis about the distal tibia of the stump, status post below knee amputation, right tibia and fibula. No definite plain film evidence of acute osteomyelitis of the left foot. No definite plain film evidence of acute osteomyelitis of the left tibia and fibula. Edematous change without air within the soft tissues. MRI would be of help in further evaluation if clinically indicated.
[2024-04-09 11:30] VITALS: BP 154/74; BP 160/76; PULSE 108; PULSE 91; RESP 16; TEMP 37.2; O2SAT 98; O2SAT 99; BMI 31.3
--- NOTE | 2024-04-09 11:37 | ED_ITS ---
HPI - Altered Mental Status General Chief Complaint: Altered Mental Status Stated Complaint: AMS,RLE PAIN/ULCER PER EMS Time Seen by Provider: 04/09/24 11:21 Source: patient, EMS, RN notes reviewed and old records reviewed Mode of arrival: EMS Limitations: altered mental status History of Present Illness ED Provider: Alejandra Mackay PA-C HPI narrative: 63 yo wheelchair bound male with history of diabetes, PVD s/p right BKA 09/2023, chronic pain on methadone, history of left ankle/foot osteomyelitis with hx TMA, atrial fibrillation not on anticoagulation, HTN, hepatitis C s/p treatment in 2009 who presents to the ER from home via EMS for evaluation of altered mental status. Patient was reportedly found to be disoriented and confused by his daughter. He lives home alone and gets VNA services. States he does not yet have prosthetic device for right BKA. He states he is compliant with medications and ict support and test engineers help him to monitor. He is alert and oriented to self, place, and situation, but disoriented to time. Unable to tell me the date or year. He denies pain at this time, he states he wants to get wounds evaluated. He states ulcers began a couple of days ago. States he has not used anything for wounds at home. He has not yet seen wound care. Had appt. scheduled 11/2020 but did not show. He denies fevers, headaches, blurred vision, chest pain, SOB, abdominal pain, or paresthesias. Denies recent falls. Additionally, he endorses urinary odor and discoloration. States it has had a foul smell and has appeared orange in color for weeks now. Denies urinary burning, urgency, or frequency. MD complaint: altered mental status and other (Bilateral lower extremity ulcerations ) Onset (ago): hour(s) Timing confirmed by: family member (Patient's daughter) Consistency of symptoms: unknown Associated symptoms: foul smelling urine Related Data Home Medications ?Medication ?Instructions ?Recorded ?Confirmed insulin glargine 100 unit/mL 40 unit subcut BID 08/11/20 10/28/23 subcutaneous solution (Lantus U-100 Insulin) amitriptyline 50 mg tablet 50 mg PO BEDTIME 12/09/20 10/28/23 blood sugar diagnostic (Ernayle #10 ea 03/08/22 10/28/23 Lite Strips) insulin syringe-needle U-100 1 mL #10 ea 03/08/22 10/28/23 31 gauge x 5/16 (BD Insulin Syringe Ultra-Fine) methadone 5 mg tablet 85 mg PO DAILY 02/07/23 10/28/23 glipizide 2.5 mg tablet, extended 2.5 mg PO QAM 03/04/23 10/28/23 release 24 hr Previous Rx's ?Medication ?Instructions ?Recorded Off loading shoe #1 ea 12/28/20 bismuth tribrom-petrolatum,wh 1 X #200 ea 02/21/21 8 bandage (Xeroform Petrolatum Dressing) adhesive tape 2 X 10 yard #1 ea 06/16/21 prosthetics (prosthetic) #1 ea 06/16/21 diphenhydramine HCl 25 mg capsule 50 mg (2 x 25 mg) PO ONCE sleep #2 07/30/22 (Benadryl) caps hydrocortisone 2.5 % topical cream 1 appl topical BID PRN skin 08/09/22 irritation #20 grams chair, wheel (Wheel chair) #1 ea 03/12/23 diltiazem HCl 120 mg 120 mg PO BID #60 caps 03/12/23 capsule,extended release 24 hr (Cardizem CD) hydralazine 25 mg tablet 25 mg PO TID #90 tabs 03/12/23 Bedside commode #1 ea 04/18/23 Shower Chair #1 ea 04/18/23 Walker #1 ea 05/06/23 mupirocin calcium 2 % topical cream 1 appl topical BID #30 grams 08/20/23 bacitracin zinc 500 unit/gram 1 appl topical DAILY #14 grams 09/24/23 topical ointment (Antibiotic (bacitracin zinc)) gauze bandage 3 X 3 (Band-Aid #25 ea 09/24/23 Gauze Pads) gauze bandage 4 X 2.5 yard #30 ea 09/24/23 (Band-Aid Rolled Gauze) doxycycline hyclate 100 mg tablet 100 mg PO BID #40 tabs 10/24/23 Allergies Allergy/AdvReac Type Severity Reaction Status Date / Time furosemide [Lasix] Allergy Intermediate Hives Verified 04/09/24 11:33 levofloxacin [Levaquin] Allergy Unknown Gastrointestinal Verified 04/09/24 11:33 Upset metronidazole [Flagyl] Allergy Unknown Unknown Verified 04/09/24 11:33 latex Allergy Rash Verified 04/09/24 11:33 contrast dye Allergy Unknown rash, hives Uncoded 10/24/23 15:09 Review of Systems 2 Review of Systems: Yes all other systems are reviewed and are negative [facility] Past Medical History Medical History Hx of hepatitis Diabetic ulcer of right foot Atrial fibrillation Hypertension Diabetes Surgical History 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 History of transmetatarsal amputation of foot (~09/2016) History of amputation of toe (~08/18/14) History of amputation of toe (~10/21/13) History of lipoma Family History Family History Father History of lung cancer Mother History of diabetes mellitus Social History Social History Household Members: Other Housing: Other Housing Other:: patient is homeless, couch surfing with friends/family Do you presently have visiting nurse or other home services: Yes Alcohol intake: never Patient Tobacco Use Status: Current everyday Tobacco user Tobacco use type: Cigarette Cigarettes Per Day: 10 Years Smoked: 46 Second Hand Smoke Exposure: Yes Substance Use Type: Crack/Cocaine Advance Directives: No Do you have a plan to hurt others: No Plan service: No Physical Exam ED Vital Signs: Vital Signs - 24 hr 04/09/24 11:30 04/09/24 16:01 Temperature 98.9 F Pulse Rate 91 71 Respiratory Rate 16 18 Blood Pressure 154/74 H 167/85 H Pulse Oximetry 98 96 Oxygen Delivery Method Room Air Room Air BMI result Body Mass Index 31.3 Appearance: Alert. Oriented X3. No acute distress. Hunched over in ED stretcher. Head: normocephalic, atraumatic. Eyes: Pupils equal, round and reactive to light. ENT: Pharynx normal. Neck: Normal inspection. Neck supple. CVS: Normal heart rate and rhythm. Pulses normal. Respiratory: No respiratory distress. Breath sounds normal. Abdomen: Soft and nontender. Skin: Skin warm and dry. Normal skin color. Normal skin turgor. No rashes. Extremities: Ulceration of right BKA, white/fluctuant and purulent center with surrounding erythema. TMA of left lower extremity. Erythematous ulceration of left lateral fibula. Left calf edematous and warm to the touch. Decreased sensation of left lower extremity. Neuro/psych: Oriented X 3. No motor deficit. No sensory deficit. CN II-XII intact. Normal speech and cognition. Medications Administered Discontinued Medications Generic Name Dose Route Start Last Admin Trade Name Freq PRN Reason Stop Dose Admin Vancomycin HCl 2,000 mg in 500 mls @ 250 mls/hr 04/09/24 11:56 04/09/24 16:10 Vancomycin/Ns IV 04/09/24 13:55 Infused ONCE ONE Infusion Cefepime HCl 2 gm/ Sodium 50 mls @ 100 mls/hr 04/09/24 11:56 04/09/24 14:37 Chloride IV 04/09/24 12:25 Infused ONCE ONE Infusion Sodium Chloride 1,000 mls @ 999 mls/hr 04/09/24 12:00 04/09/24 14:37 Ns IV 04/09/24 13:00 Infused .Q1H1M L[place]NNETTE Infusion Potassium Chloride 40 meq 04/09/24 12:53 04/09/24 14:37 Potassium Chloride Er 20 Meq Tab.Er.Prt PO 04/09/24 12:54 40 meq ONCE ONE Administration Medical Decision Making Medical Decision Making MDM Narrative: 63 yo male with history of diabetes, PVD s/p right BKA 09/2023, chronic pain on methadone, history of left ankle/foot osteomyelitis with hx TMA, atrial fibrillation not on anticoagulation, HTN, hepatitis C s/p treatment in 2009 who presents to the ER from home via EMS for evaluation of altered mental status. Patient was reportedly found to be disoriented and confused by his daughter. He lives home alone and gets VNA services. Patient is oriented to self, place, and situation, but disoriented to time. Unable to tell me the year, states he forgets. Patient has ulceration of right BKA and ulceration of left lateral calf. Denies fevers or pain. Additionally, he has been experiencing urinary odor and discoloration for weeks. Patient is afebrile. Right BKA wound swabbed and cultured. Hypoglycemic with random glucose 50. Patient was given orange juice with added sugar and turkey sandwich with improvement to 70s. Laboratory results reveal leukocytosis of 12.5. H&H 9.7/31.2. CRP elevated 7.42, ESR elevated 102. BNP elevated 228. X-ray read showing acute osteomyelitis of the distal tibia from the stump. Will plan for admission for IV antibiotics and further management. Differential Diagnosis Differential Diagnoses: The differential diagnosis associated with the presentation includes UTI, pressure ulcer, abscess, osteomyelitis Admission/Observation Consideration of admission/observation: Escalation of care including admission/observation considered Consult Healthcare Provider Management of the patient was discussed with: Hospitalist Lab Data MDM Lab Attestation statement: I reviewed the patient's lab results. 04/09/24 12:22 04/09/24 12:22 Labs: Lab Results 04/09/24 04/09/24 Range/Units 12:22 13:29 WBC 12.5 H (4.8-10.8) X10*3/uL RBC 3.76 L (4.60-5.80) X10*6/uL Hgb 9.7 L (14.0-18.0) g/dl Hct 31.2 L (42.0-52.0) % MCV 83.0 (80.0-98.0) fL MCH 25.8 L (27.0-33.0) pg MCHC 31.1 (31.0-36.0) g/dl RDW 14.1 (11.0-16.0) % Plt Count 390 (160-400) X10*3/uL MPV 9.6 (9.4-12.4) fL Immature Gran % (Auto) 0.4 (0.0-0.4) % Neut % (Auto) 83.6 H (45-73) % Lymph % (Auto) 8.5 L (20-40) % Elk % (Auto) 7.0 (2-11) % Eos % (Auto) 0.2 (0-4) % Baso % (Auto) 0.3 (0-2) % Lymph # (Auto) 1.1 L (1.2-4.9) X10*3/uL Elk # (Auto) 0.9 (0.1-1.2) X10*3/uL Eos # (Auto) 0.0 (0.0-0.4) X10*3/uL Baso # (Auto) 0.0 (0.0-0.2) X10*3/uL Abs Immat Gran (auto) 0.05 H (0.00-0.03) X10*3/uL Absolute Neuts (auto) 10.5 H (2.0-8.3) x10*3/uL Absolute Nucleated RBC 0.000 (0.0-0.012) X10*3/uL Nucleated RBC % (auto) 0.0 (0.0-0.2) /100WBC ESR 102 H (0-15) MM/HR Sodium 140 (135-145) mmol/L Potassium 3.1 L (3.3-5.1) mmol/L Chloride 102 (96-108) mmol/L Carbon Dioxide 25 (22-29) mmol/L Anion Gap 16 (12-20) BUN 17 H (9-16) mg/dL Creatinine 0.98 (0.5-1.4) mg/dL Estim Creat Clear Calc 83.9 Estimated GFR > 60 POC Glucose 79 (60-115) mg/dL Random Glucose 50 L* (60-115) mg/dL Lactic Acid 1.1 (0.5-2.0) mmol/L Calcium 9.1 (8.4-10.2) mg/dL Magnesium 1.8 (1.6-2.6) mg/dL Total Bilirubin 0.2 (0.0-1.0) mg/dL Direct Bilirubin 0.2 (0.0-0.5) mg/dL AST 28 (5-37) U/L ALT 16 (0-40) U/L Alkaline Phosphatase 56 (39-117) U/L Ammonia 28 (13-55) umol/L C-Reactive Protein 7.42 H (< or = 0.50) mg/dL B-Natriuretic Peptide 228 H (<100) pg/mL Total Protein 8.2 H (6.5-8.0) g/dL Albumin 3.3 L (3.5-5.0) g/dL Ethyl Alcohol < 10 mg/dL Independent Interpretation I performed an independent interpretation of an: Plain X-Ray Interpretation: Cortical irregularity consistent with osteomyelitis of the distal tibia. Radiology Impression Discussion of test interpretation with radiology: I have reviewed the radiologist's reading. Radiologist Impression: XR/XR foot LT min 3V IMPRESSION: Finding suggestive of acute osteomyelitis about the distal tibia of the stump, status post below knee amputation, right tibia and fibula. No definite plain film evidence of acute osteomyelitis of the left foot. No definite plain film evidence of acute osteomyelitis of the left tibia and fibula. Edematous change without air within the soft tissues. MRI would be of help in further evaluation if clinically indicated. Independent Historian Clinical information obtained from an independent historian. History obtained from or confirmed by: EMS External Record Review External record reviewed: Inpatient record, Outpatient record, Prior outpatient labs and Prior outpatient radiology Tests considered The following testing was considered but not selected: CT right stump with concern for abscess, would likely benefit from MRI for better characterization Prescription Management I considered prescription management with: Antibiotic Chronic Conditions Patient?s care impacted by: Diabetes Social Determinants Patient?s care significantly limited by Social Determinants of Health including: Problems related to primary support group and Other Social Determinant of Health Critical Care Time Critical Care Time Critical Care Time: Yes Total Critical Care Time: 36 Attestation: I have personally provided critical care time exclusive of time spent on separately billable procedures. Time includes review of lab data, radiology results, discussion with consultants, and monitoring for potential decompensation. Intervention performed as documented. Discharge Plan Discharge Clinical Impression: Hypoglycemia, Acute osteomyelitis Patient Disposition: Admitted As Inpatient Print Language: Omani
[2024-04-09 12:28] LABS: MANUAL DIFF FLAG NO
[2024-04-09 12:31] LABS: Basophils Percent Auto 0.3 % (0-2); Eosinophils Percent Auto 0.2 % (0-4); Hematocrit 31.2 % (42.0-52.0); Hemoglobin 9.7 g/dl (14.0-18.0); Imm Gran Abs Auto 0.05 X10*3/uL (0.00-0.03); Imm Gran Pct Auto 0.4 % (0.0-0.4); Lymphocytes Absolute Auto 1.1 X10*3/uL (1.2-4.9); Lymphocytes Percent Auto 8.5 % (20-40); Mean Corpuscular HGB Conc 31.1 g/dl (31.0-36.0); Mean Corpuscular Hemoglobin 25.8 pg (27.0-33.0); Mean Platelet Volume 9.6 fL (9.4-12.4); Monocytes Absolute Auto 0.9 X10*3/uL (0.1-1.2); Neutrophils Absolute Auto 10.5 x10*3/uL (2.0-8.3); Neutrophils Percent Auto 83.6 % (45-73); Platelet Count 390 X10*3/uL (160-400); Red Blood Count 3.76 X10*6/uL (4.60-5.80); Red Cell Distribution Width 14.1 % (11.0-16.0); White Blood Count 12.5 X10*3/uL (4.8-10.8)
[2024-04-09 12:36] LABS: Ammonia 28 umol/L (13-55)
[2024-04-09] MEDS: 0.9 % Sodium Chloride 1,000 ML 999 ML IV (12:36)
[2024-04-09] MEDS: vancomycin/NS 2,000 MG/500 ML PLAST..BAG 250 MG IV (12:36)
[2024-04-09] MEDS: cefEPime HCl 2 GM in 0.9 % Sodium Chloride 50 ML IV (12:36)
[2024-04-09 12:40] LABS: Lactic Acid 1.1 mmol/L (0.5-2.0)
[2024-04-09 12:41] LABS: Ethanol < 10 mg/dL
[2024-04-09 12:46] LABS: Alanine Aminotransferase 16 U/L (0-40); Albumin Level 3.3 g/dL (3.5-5.0); Alkaline Phosphatase 56 U/L (39-117); Anion Gap 16 (12-20); Aspartate Amino Transferase 28 U/L (5-37); Bilirubin Direct 0.2 mg/dL (0.0-0.5); Bilirubin Total 0.2 mg/dL (0.0-1.0); Blood Urea Nitrogen 17 mg/dL (9-16); C Reactive Protein 7.42 mg/dL (< or = 0.50); Calcium 9.1 mg/dL (8.4-10.2); Carbon Dioxide 25 mmol/L (22-29); Chloride 102 mmol/L (96-108); Creatinine Clr Calc Pharmacy 83.9; Estimated Glomerular Filt Rate > 60; Glucose Random 50 mg/dL (60-115); Magnesium 1.8 mg/dL (1.6-2.6); Potassium 3.1 mmol/L (3.3-5.1); Sodium 140 mmol/L (135-145); Total Protein 8.2 g/dL (6.5-8.0)
[2024-04-09 12:49] LABS: B Type Natriuretic Peptide 228 pg/mL (<100)
[2024-04-09 13:08] LABS: Erythrocyte Sedimentation Rate 102 MM/HR (0-15)
[2024-04-09 13:52] LABS: Glucose, Whole Blood 79 mg/dL (60-115)
[2024-04-09] MEDS: Potassium Chloride ER 20 MEQ TAB.ER.PRT 40 MEQ PO (14:37)
[2024-04-09 16:01] VITALS: BP 167/85; PULSE 71; RESP 18; O2SAT 96
--- NOTE | 2024-04-09 18:15 | P.HPHOSP_ITS ---
<Statement entered by Bennett Cazares MD - 04/13/24 14:27> the patient was seen and evaluated with MORA Hunter. I agree with her note, assessment and plan with the following. A 63 years old male with PMH of DMII, Rt BKA among others who is presenting with infected unstageable ulcer R BKA stump r/t PVD with bilateral cellulitis. IV Vancomycin for now ID consult surgery evaluation Rest of evaluations by MORA note. History of Present Illness Date of Service: 04/09/24 Attending physician on admission: Bennett Cazares Chief Complaint: ams 63 yo wheelchair bound male with history of diabetes, PVD s/p right BKA 09/2023, chronic pain on methadone, history of left ankle/foot osteomyelitis with hx TMA, atrial fibrillation not on anticoagulation, HTN, hepatitis C s/p treatment in 2009 who presents to the ER from home via EMS for evaluation of altered mental status. Patient was reportedly found to be disoriented and confused by his daughter. He lives home alone and gets VNA services. States he does not yet have prosthetic device for right BKA. He states he is compliant with medications and hydrogen power plant manager help him to monitor. He is alert and oriented to self, place, and situation, but disoriented to time. Unable to tell me the date or year. He is a limited historian and much of the history is obtained from ED provider report and daughter's report. He is reporting 08/20 in the ble. Reports he follows with Dr. Cannon for his wounds (appears was last seen 10/2023) but does not follow with wound care. He did report urinary odor and oranage appearance to ed provider but is a limited historian on my exam. He has not yet been able to provide a urine sample. Per ED report, no dysuria, hematuria, urgency/frequency. On arrival, VSS though hypertensive to 167/85 on admission. There is a leukocytosis of 12.5. He has a stable normocytic anemia with H/H 9.7/31.2%. Renal function electrolyte levels normal except for hypokalemia of 3.1. On arrival, glucose 50 improved to 79. Lactic acid 1.1. CRP 7.52, ESR 102. X-ray of the right tibia/fibula shows acute osteomyelitis about the distal tibia of the stump. There is no definitive plain film evidence of acute osteomyelitis of the left foot or left tibia/fibula. Wound culture R BKA stump pending. In the ED, has been given IV fluids, IV cefepime, and 40 mEq potassium chloride. Review of Systems 2 Review of Systems: Yes Unobtainable due to mental status [facility] Medical History Hx of hepatitis Diabetic ulcer of right foot Atrial fibrillation Hypertension Diabetes Family History Father History of lung cancer Mother History of diabetes mellitus Surgical History 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 History of transmetatarsal amputation of foot (~09/2016) History of amputation of toe (~08/18/14) History of amputation of toe (~10/21/13) History of lipoma Social History Household Members: Other Housing: Other Housing Other:: patient is homeless, couch surfing with friends/family Do you presently have visiting nurse or other home services: Yes Alcohol intake: never Patient Tobacco Use Status: Current everyday Tobacco user Tobacco use type: Cigarette Cigarettes Per Day: 10 Years Smoked: 46 Second Hand Smoke Exposure: Yes Substance Use Type: Crack/Cocaine Advance Directives: No Do you have a plan to hurt others: No Plan service: No Meds Allergies Allergy/AdvReac Type Severity Reaction Status Date / Time furosemide [Lasix] Allergy Intermediate Hives Verified 04/09/24 11:33 levofloxacin [Levaquin] Allergy Unknown Gastrointestinal Verified 04/09/24 11:33 Upset metronidazole [Flagyl] Allergy Unknown Unknown Verified 04/09/24 11:33 latex Allergy Rash Verified 04/09/24 11:33 contrast dye Allergy Unknown rash, hives Uncoded 10/24/23 15:09 Active Medications: Current Medications Acetaminophen (Acetaminophen 325 Mg Tablet) 650 mg PO Q6H PRN PRN Reason: Pain, Mild (Pain Scale 1-3) Heparin Sodium (Porcine) (Heparin Sodium,Porcine 5,000 Unit/Ml Vial) 5,000 unit SUBCUT Q12H [facility] Magnesium Hydroxide (Milk Of Magnesia 30 Ml Oral.Susp) 30 ml PO DAILY PRN PRN Reason: Constipation Morphine Sulfate (Morphine Sulfate 4 Mg/Ml Cartridge) 2 mg IVPUSH Q4H PRN; Protocol PRN Reason: Pain, Severe (Pain Scale 7-10) Ondansetron HCl (Ondansetron Hcl 4 Mg/2 Ml Vial) 4 mg IVPUSH Q8H PRN PRN Reason: Nausea and Vomiting Oxycodone HCl (Oxycodone Hcl Immed Release 5 Mg Tablet) 5 mg PO Q6H PRN PRN Reason: Pain, Moderate(Pain Scale 4-6) Sodium Chloride (0.9 % Sodium Chloride Flush 3 Ml Syringe) 3 ml IVFLUSH QSHIFT [facility] Home Medications ?Medication ?Instructions ?Recorded ?Confirmed ?Last Taken ?Type insulin glargine 100 unit/mL 45 unit subcut BID 08/11/20 04/09/24 Unknown History subcutaneous solution (Lantus U-100 Insulin) amitriptyline 50 mg tablet 50 mg PO BEDTIME 12/09/20 04/09/24 Unknown History blood sugar diagnostic (FreeStyle #10 ea 03/08/22 10/28/23 Unknown History Lite Strips) insulin syringe-needle U-100 1 mL #10 ea 03/08/22 10/28/23 Unknown History 31 gauge x 5/16 (BD Insulin Syringe Ultra-Fine) methadone 5 mg tablet 85 mg PO DAILY 02/07/23 10/28/23 Unknown History glipizide 2.5 mg tablet, extended 2.5 mg PO QAM 03/04/23 10/28/23 Unknown History release 24 hr diltiazem HCl 180 mg capsule,24 180 mg PO DAILY 04/09/24 04/09/24 Unknown History hr,extended release Physical Exam 2 Vital Signs and Narrative: Vital Signs: Last Vital Signs Temp 98.9 F 04/09/24 11:30 Pulse 71 04/09/24 16:01 Resp 18 04/09/24 16:01 BP 167/85 H 04/09/24 16:01 Pulse Ox 96 04/09/24 16:01 O2 Del Method Room Air 04/09/24 16:01 BMI result Body Mass Index 31.3 Constitutional - Awake and Alert, No apparent distress Eyes - PERRLA, EOMI Cardiovascular - S1S2, RRR, No edema Respiratory - Normal lung expansion, Normal respiratory effort, No respiratory distress, CTA bilaterally Gastrointestinal - NT / ND; +BS; No rebound or guarding Extremities - LLE- mild swelling LLE with erythema and warmth of the lower leg extending foot to knee s/p Left TMA. There are multiple superficial ulcerations of the posterior left lower leg without overlying eschar or purulent drainage. RLE- s/p BKA with erythema of the stump extending just to superior to the knee with unstageable ulcer with slough over the stump Skin - Warm/Dry Neurological - Alert & oriented to self and place but disoriented to time, knows his legs are infected but otherwise not providing history. Psychological - Appropriate affect Results Labs 04/09/24 12:22 04/09/24 12:22 Labs: Laboratory Results - last 24 hr 04/09/24 04/09/24 12:22 13:29 MCV 83.0 MCH 25.8 L MCHC 31.1 RDW 14.1 Plt Count 390 MPV 9.6 Immature Gran % (Auto) 0.4 Neut % (Auto) 83.6 H Lymph % (Auto) 8.5 L Benzie % (Auto) 7.0 Eos % (Auto) 0.2 Baso % (Auto) 0.3 Lymph # (Auto) 1.1 L Benzie # (Auto) 0.9 Eos # (Auto) 0.0 Baso # (Auto) 0.0 Abs Immat Gran (auto) 0.05 H Absolute Neuts (auto) 10.5 H Absolute Nucleated RBC 0.000 Nucleated RBC % (auto) 0.0 ESR 102 H Anion Gap 16 Estim Creat Clear Calc 83.9 Estimated GFR > 60 POC Glucose 79 Random Glucose 50 L* Lactic Acid 1.1 Calcium 9.1 Magnesium 1.8 Total Bilirubin 0.2 Direct Bilirubin 0.2 AST 28 ALT 16 Alkaline Phosphatase 56 Ammonia 28 C-Reactive Protein 7.42 H B-Natriuretic Peptide 228 H Total Protein 8.2 H Albumin 3.3 L Ethyl Alcohol < 10 Imaging Radiologist's Impressions: Impressions Foot X-Ray 04/09/24 13:49 IMPRESSION: Finding suggestive of acute osteomyelitis about the distal tibia of the stump, status post below knee amputation, right tibia and fibula. No definite plain film evidence of acute osteomyelitis of the left foot. No definite plain film evidence of acute osteomyelitis of the left tibia and fibula. Edematous change without air within the soft tissues. MRI would be of help in further evaluation if clinically indicated. Knee X-Ray 04/09/24 13:49 IMPRESSION: Finding suggestive of acute osteomyelitis about the distal tibia of the stump, status post below knee amputation, right tibia and fibula. No definite plain film evidence of acute osteomyelitis of the left foot. No definite plain film evidence of acute osteomyelitis of the left tibia and fibula. Edematous change without air within the soft tissues. MRI would be of help in further evaluation if clinically indicated. Tibia/Fibula X-Ray 04/09/24 13:49 IMPRESSION: Finding suggestive of acute osteomyelitis about the distal tibia of the stump, status post below knee amputation, right tibia and fibula. No definite plain film evidence of acute osteomyelitis of the left foot. No definite plain film evidence of acute osteomyelitis of the left tibia and fibula. Edematous change without air within the soft tissues. MRI would be of help in further evaluation if clinically indicated. Assessment and Plan (1) Acute osteomyelitis: Status: Acute (2) Hypoglycemia: Status: Acute (3) Bilateral lower leg cellulitis: Status: Acute Plan 63 yo wheelchair bound male with history of diabetes, PVD s/p right BKA 09/2023, chronic pain on methadone, history of left ankle/foot osteomyelitis with hx TMA, atrial fibrillation not on anticoagulation, HTN, hepatitis C s/p treatment in 2009 admitted for further management of infected unstageable ulcer R BKA stump with bilateral cellulitis. #infected unstageable ulcer R BKA stump r/t PVD with bilateral cellulitis -XR shows evidence of osteomyelitis R tibia. No other radiographic evidence of osteomyelitis in the bilateral lower extremities -CRP 7.42, ESR 102. Leukocytosis 12.5. No other SIRS criteria. No sepsis -IV vancomycin and Zosyn (initiated 04/09) -pain management p.r.n. -general surgery consult -Infectious Disease consult -follow CBC, cultures -wound RN #Multiple superficial stage 2 non pressure ulcers left lower leg with cellulitis -abx as above -wound rn consult #Urinary symptoms -c/o dark foul smelling urine. No dysuria -collect ua/uc # insulin-dependent type 2 diabetes with hypoglycemia -has been using 40 units of Lantus without checking his glucose. On arrival, glucose 52 -hold Lantus for now, may resume at lower dose after observing glucose levels -POC glucose, diabetic diet -Humalog on sliding scale # chronic pain disorder -continue methadone-follows with [facility] # paroxysmal atrial fibrillation -not on anticoagulation -continue diltiazem # hypertension -continue diltiazem # chronic normocytic anemia likely related to chronic disease -H/H above transfusion threshold, baseline DVT prophylaxis-heparin Full code Patient requires inpatient stay at least 2 midnights for management of bilateral lower extremity cellulitis with infected extremity ulcers requiring IV antibiotics, close monitoring of cultures, expert consultation and possible surgical intervention. Quality Stroke Does the patient have a stroke diagnosis?: No VTE Prior VTE?: No VTE Risk Level:: Medical - moderate - high VTE Device Contraindication: Treatment Not Indicated VTE Drug Contraindication: N/A - Med Ordered
--- NOTE | 2024-04-09 18:45 | PHA.MEDREC ---
Addendum entered by Jamee Pérez 04/10/24 11:51: Previous med rec notes from previous visits show patient gets methadone from [facility]. I called them and they verified his dose of 80mg ([phone]). They report he has VNA services hot die picker and administer his methadone - [facility] [place] - [facility] ([phone]). [facility] provided me with a medication list (however it is not up to date) and his VNA's phone number - [facility] ([phone]). His VNA confirmed his methadone dose of 80mg as well and that he last took it yesterday morning around 0730. Used claim history to verify his other medications. Left a message with his doctors office to confirm Diltiazem dose - his most recent claim is for 180mg so will leave that entered in home med list and will update and message provider if they report something different. Original Note: Pharmacy Consult ? Medication Reconciliation Pharmacy has completed the medication reconciliation.Patient not able to give a reliable med history, will attempt to connect with daughter to find out patients visiting nurse service. For now only able to confirm medications that have been filled at pharmacy recently.
--- NOTE | 2024-04-09 19:44 | PHA.PROG ---
Admission Date/Time: April 09, 2024 18:05 Indication: BONE AND JOINT INFECTION Weight in k.718 kg Adjusted body weight in Kg: [place] body weight in Kg: Obesity Dosing Indication % IBW: Serum Creatinine - Last 168 Hours 04/09/24 12:22 Creatinine 0.98 Estimated CrCl and GFR - Last 168 Hours 04/09/24 12:22 Estim Creat Clear Calc 83.9 Estimated GFR > 60 Vancomycin Loading Dose: 2000 MG Current Vancomycin Dosing Regimen: 1000 MG Q12H Vancomycin Monitoring using AUC goal of 400 - 600 range with trough as surrogate marker: PQN=379 TROUGH=16.4 Date and Time for next Vancomycin Level to be drawn: 04/10/24 @2100 Pharmacist Comments on Vancomycin Plan: Vancomycin dosing will take advantage of [employer] as a clinical decision support tool that uses Bayesian modeling to calculate individual patient's pharmacokinetic parameters and forecast the patient's drug concentration time course with the target goal AUC 24 range of 400 - 600 mg/L/hr.
[2024-04-09 19:50] LABS: Glucose, Whole Blood 87 mg/dL (60-115)
[2024-04-09] MEDS: Heparin Sodium,Porcine 5,000 UNIT/ML VIAL 5000 UNIT SUBCUT (20:14)
[2024-04-09] MEDS: Piperacillin Sodium/Tazobactam 4.5 GM in 0.9 % Sodium Chloride 100 ML IV (20:14)
[2024-04-09] MEDS: Nicotine 7 MG PATCH.TD24 TRANSDERMA (20:14)
[2024-04-09 22:05] VITALS: BP 150/61; PULSE 78; RESP 16; TEMP 36.7; O2SAT 97
[2024-04-09] MEDS: 0.9 % Sodium Chloride Flush 3 ML SYRINGE IVFLUSH (23:19)
[2024-04-09] MEDS: vancomycin HCL 1,000 MG in 0.9 % Sodium Chloride 250 ML 270 MG IV (23:19)
[2024-04-10] VITALS (7 sets, daily range): BP systolic 140–181; BP diastolic 65–80; PULSE 51–68; RESP 13–18; TEMP 36.2–36.8; O2SAT 97–99
[2024-04-10] MEDS: Piperacillin Sodium/Tazobactam 4.5 GM in 0.9 % Sodium Chloride 100 ML IV ×4 (01:28→18:09)
[2024-04-10 01:58] LABS: Appearance Urine Clear; Color Urine Yellow; Glucose Urine UA Negative (Negative); Leukocyte Esterase Urine Negative (Negative); Nitrite Urine Negative (Negative); PH 5.5 (5.0-9.0); Specific Gravity - Urine 1.025 (1.005-1.025); UMIC TRIGGER UACC YES; Urine Blood Negative (Negative); Urine Ketones Negative (Negative); Urine Protein 300 (3+) mg/dL (Neg-Trace)
[2024-04-10 02:00] LABS: Bacteria Urine None Seen (None Seen); RBC Urine 0-2 /HPF (0-2); Squamous Epithelial Cell Urine 0-2 /HPF (0-2); WBC Urine 0-5 /HPF (0-5)
[2024-04-10 02:10] LABS: Amphetamine Screen Urine Not Detected (Not Detect); Barbiturates, Urine Not Detected (Not Detect); Benzodiazepines Screen Urine Not Detected (Not Detect); Buprenorphine Scr Not Detected (Not Detect); Cannabinoid Screen Urine Not Detected (Not Detect); Cocaine Screen Urine POSITIVE (Not Detect); Fentanyl, urine Not Detected (Not Detect); Methadone Screen, Urine Positive (Not Detect); Opiate Screen Urine Not Detected (Not Detect); Oxycodone Screen Urine Not Detected (Not Detect); Phencyclidine Screen Urine Not Detected (Not Detect)
--- NOTE | 2024-04-10 04:16 | PC.NURSE ---
Patient is alert and oriented to self, place, person, not to time, VSS. He denies any pain at present. Patient medicated per MAR, urine sample collected and sent to lab for processing. Patient currently resting in a stretcher bed, respirations even and unlabored, safety precautions remain in place, plan of care ongoing.
[2024-04-10 05:49] LABS: MANUAL DIFF FLAG NO
[2024-04-10 05:52] LABS: Basophils Percent Auto 0.4 % (0-2); Eosinophils Percent Auto 0.3 % (0-4); Hematocrit 28.4 % (42.0-52.0); Imm Gran Abs Auto 0.04 X10*3/uL (0.00-0.03); Imm Gran Pct Auto 0.4 % (0.0-0.4); Lymphocytes Absolute Auto 1.4 X10*3/uL (1.2-4.9); Lymphocytes Percent Auto 12.6 % (20-40); Mean Corpuscular HGB Conc 31.7 g/dl (31.0-36.0); Mean Corpuscular Hemoglobin 26.2 pg (27.0-33.0); Mean Corpuscular Volume 82.6 fL (80.0-98.0); Mean Platelet Volume 9.9 fL (9.4-12.4); Monocytes Absolute Auto 0.9 X10*3/uL (0.1-1.2); Monocytes Percent Auto 8.1 % (2-11); Neutrophils Absolute Auto 8.5 x10*3/uL (2.0-8.3); Neutrophils Percent Auto 78.2 % (45-73); Platelet Count 342 X10*3/uL (160-400); Red Blood Count 3.44 X10*6/uL (4.60-5.80); Red Cell Distribution Width 14.1 % (11.0-16.0); White Blood Count 10.9 X10*3/uL (4.8-10.8)
[2024-04-10 06:23] LABS: Anion Gap 11 (12-20); Blood Urea Nitrogen 15 mg/dL (9-16); Calcium 8.8 mg/dL (8.4-10.2); Carbon Dioxide 26 mmol/L (22-29); Chloride 105 mmol/L (96-108); Creatinine Clr Calc Pharmacy 88.4; Estimated Glomerular Filt Rate > 60; Glucose Random 45 mg/dL (60-115); Potassium 3.9 mmol/L (3.3-5.1); Sodium 138 mmol/L (135-145)
[2024-04-10] MEDS: Glucose Gel 15 GM GEL..GRAM. PO (06:26)
--- NOTE | 2024-04-10 06:28 | PC.NURSE ---
Lab called with critical blood glucose level 45. Dr. Carrion notified. Glucose gel 15 Gm administered. Plan to check POC in 15 min.
[2024-04-10 06:44] LABS: Glucose, Whole Blood 70 mg/dL (60-115)
[2024-04-10 06:56] LABS: Glucose, Whole Blood 72 mg/dL (60-115)
[2024-04-10 08:59] LABS: Glucose, Whole Blood 127 mg/dL (60-115)
[2024-04-10] MEDS: Heparin Sodium,Porcine 5,000 UNIT/ML VIAL 5000 UNIT SUBCUT ×2 (09:45→20:38)
[2024-04-10] MEDS: 0.9 % Sodium Chloride Flush 3 ML SYRINGE IVFLUSH ×3 (09:47→22:58)
[2024-04-10] MEDS: Nicotine 7 MG PATCH.TD24 TRANSDERMA (09:48)
[2024-04-10] MEDS: dilTIAZem HCL CD 180 MG CAP.ER.24H PO (11:05)
[2024-04-10] MEDS: vancomycin HCL 1,000 MG in 0.9 % Sodium Chloride 250 ML 270 MG IV (11:06)
[2024-04-10] MEDS: hydrALAZINE HCl 25 MG TABLET PO ×3 (11:06→20:38)
[2024-04-10 11:15] LABS: Glucose, Whole Blood 90 mg/dL (60-115)
--- NOTE | 2024-04-10 12:27 | P.PNIM_ITS ---
Subjective Subjective Date of Service: 04/10/24 Interval History: seen and evaluated this morning had episodes of low sugar levels , responded to PO worries about losing more of his leg No fever or chills reported Review of Systems Review of Systems: Yes all other systems are reviewed and are negative Physical Exam 2 Vital Signs: Vital Signs: Last Vital Signs Temp 97.1 F 04/10/24 08:00 Pulse 68 04/10/24 11:05 Resp 18 04/10/24 08:00 BP 140/70 H 04/10/24 11:06 Pulse Ox 97 04/10/24 08:00 O2 Del Method Room Air 04/10/24 08:00 BMI result Body Mass Index 31.3 Const: Other: Constitutional : Awake, interactive, not in distress Neck : Normal inspection, Supple Cardiovascular : RRR, no JVP, no lower extremity edema Respiratory : good bilateral air entry, no crackles, wheezes or rhonchi Gastrointestinal: soft, lax, Normal bowel sounds, Non tender Skin : Warm, Dry, Extremities: LLE transmetatarsal amputation, RLE BKA with open wound at base of stump with no significant erythema or tenderness around Neurological : Alert & oriented x3, No focal deficit Objective Data Active Medications Acetaminophen (Acetaminophen 325 Mg Tablet) 650 mg PO Q6H PRN PRN Reason: Pain, Mild (Pain Scale 1-3) Diltiazem HCl (Diltiazem Hcl Cd 180 Mg Cap.Er.24h) 180 mg PO DAILY [facility]; Protocol Last Admin: 04/10/24 11:05 Dose: 180 mg Documented By: MARISA Glucose (Glucose Gel 15 Gm Gel..Gram.) 15 gm PO Q15M PRN; Protocol PRN Reason: per Hypoglycemia Standing Ord. Last Admin: 04/10/24 06:26 Dose: 15 gm Documented By: DEE Heparin Sodium (Porcine) (Heparin Sodium,Porcine 5,000 Unit/Ml Vial) 5,000 unit SUBCUT Q12H [facility] Last Admin: 04/10/24 09:45 Dose: 5,000 unit Documented By: MARISA Hydralazine HCl (Hydralazine Hcl 25 Mg Tablet) 25 mg PO TID [facility]; Protocol Last Admin: 04/10/24 11:06 Dose: 25 mg Documented By: MARISA Piperacillin Sod/Tazobactam (Sod 4.5 gm/ Sodium Chloride) 100 mls @ 200 mls/hr IV Q6H [facility] Last Infusion: 04/10/24 09:48 Dose: Infused Documented By: MARISA Dextrose (D10) 250 mls @ 750 mls/hr IV Q15M PRN; Protocol PRN Reason: per Hypoglycemia Standing Ord. Vancomycin HCl 1,000 mg/ (Sodium Chloride) 270 mls @ 270 mls/hr IV Q12H [facility] Last Infusion: 04/10/24 12:12 Dose: Infused Documented By: MARISA Insulin Human Lispro (Insulin Lispro 100 Unit/Ml 3 Ml Vial) 0 unit SUBCUT QIDACHS [facility]; Protocol Last Admin: 04/10/24 11:35 Dose: Not Given Documented By: MARISA Non-Admin Reason: No Insulin Coverage Magnesium Hydroxide (Milk Of Magnesia 30 Ml Oral.Susp) 30 ml PO DAILY PRN PRN Reason: Constipation Morphine Sulfate (Morphine Sulfate 2 Mg/Ml Cartridge) 2 mg IVPUSH Q4H PRN; Protocol PRN Reason: Pain, Severe (Pain Scale 7-10) Nicotine (Nicotine 7 Mg Patch.Td24) 7 mg TRANSDERMA DAILY [facility] Last Admin: 04/10/24 09:48 Dose: 7 mg Documented By: MARISA Ondansetron HCl (Ondansetron Hcl 4 Mg/2 Ml Vial) 4 mg IVPUSH Q8H PRN PRN Reason: Nausea and Vomiting Oxycodone HCl (Oxycodone Hcl Immed Release 5 Mg Tablet) 5 mg PO Q6H PRN PRN Reason: Pain, Moderate(Pain Scale 4-6) Pharmacy Consult (Consult Rx Vancomycin Dosing) 1 each MISCELLANE DAILY PRN PRN Reason: Consult order Sodium Chloride (0.9 % Sodium Chloride Flush 3 Ml Syringe) 3 ml IVFLUSH QSHIFT [facility] Last Admin: 04/10/24 09:47 Dose: 3 ml Documented By: MARISA Labs 04/10/24 05:33 04/10/24 05:33 Labs: Laboratory Results - last 24 hr 04/09/24 04/09/24 04/09/24 12:22 13:29 19:46 MCV 83.0 MCH 25.8 L MCHC 31.1 RDW 14.1 Plt Count 390 MPV 9.6 Immature Gran % (Auto) 0.4 Neut % (Auto) 83.6 H Lymph % (Auto) 8.5 L Cottle % (Auto) 7.0 Eos % (Auto) 0.2 Baso % (Auto) 0.3 Lymph # (Auto) 1.1 L Cottle # (Auto) 0.9 Eos # (Auto) 0.0 Baso # (Auto) 0.0 Abs Immat Gran (auto) 0.05 H Absolute Neuts (auto) 10.5 H Absolute Nucleated RBC 0.000 Nucleated RBC % (auto) 0.0 ESR 102 H Anion Gap 16 Estim Creat Clear Calc 83.9 Estimated GFR > 60 POC Glucose 79 87 Random Glucose 50 L* Lactic Acid 1.1 Calcium 9.1 Magnesium 1.8 Total Bilirubin 0.2 Direct Bilirubin 0.2 AST 28 ALT 16 Alkaline Phosphatase 56 Ammonia 28 C-Reactive Protein 7.42 H B-Natriuretic Peptide 228 H Total Protein 8.2 H Albumin 3.3 L Urine Color Urine Appearance Urine pH Ur Specific [place] Urine Protein Urine Glucose (UA) Urine Ketones Urine Blood Urine Nitrite Ur Leukocyte Esterase Urine RBC Urine WBC Ur Squamous Epith Cells Urine Bacteria Hyaline Casts Urine Opiates Screen Ur Buprenorphine Scrn Ur Oxycodone Screen Urine Methadone Screen Urine Fentanyl Screen Ur Barbiturates Screen Ur Phencyclidine Scrn Ur Amphetamines Screen U Benzodiazepines Scrn Urine Cocaine Screen U Marijuana (THC) Screen Ethyl Alcohol < 10 04/10/24 04/10/24 04/10/24 01:50 01:51 05:33 MCV 82.6 MCH 26.2 L MCHC 31.7 RDW 14.1 Plt Count 342 MPV 9.9 Immature Gran % (Auto) 0.4 Neut % (Auto) 78.2 H Lymph % (Auto) 12.6 L Cottle % (Auto) 8.1 Eos % (Auto) 0.3 Baso % (Auto) 0.4 Lymph # (Auto) 1.4 Cottle # (Auto) 0.9 Eos # (Auto) 0.0 Baso # (Auto) 0.0 Abs Immat Gran (auto) 0.04 H Absolute Neuts (auto) 8.5 H Absolute Nucleated RBC 0.000 Nucleated RBC % (auto) 0.0 ESR Anion Gap 11 L Estim Creat Clear Calc 88.4 Estimated GFR > 60 POC Glucose Random Glucose 45 L* Lactic Acid Calcium 8.8 Magnesium Total Bilirubin Direct Bilirubin AST ALT Alkaline Phosphatase Ammonia C-Reactive Protein B-Natriuretic Peptide Total Protein Albumin Urine Color Yellow Urine Appearance Clear Urine pH 5.5 Ur Specific [place] 1.025 Urine Protein 300 (3+) H Urine Glucose (UA) Negative Urine Ketones Negative Urine Blood Negative Urine Nitrite Negative Ur Leukocyte Esterase Negative Urine RBC 0-2 Urine WBC 0-5 Ur Squamous Epith Cells 0-2 Urine Bacteria None Seen Hyaline Casts 3-5 Urine Opiates Screen Not Detected Ur Buprenorphine Scrn Not Detected Ur Oxycodone Screen Not Detected Urine Methadone Screen Positive H Urine Fentanyl Screen Not Detected Ur Barbiturates Screen Not Detected Ur Phencyclidine Scrn Not Detected Ur Amphetamines Screen Not Detected U Benzodiazepines Scrn Not Detected Urine Cocaine Screen POSITIVE H U Marijuana (THC) Screen Not Detected Ethyl Alcohol 04/10/24 04/10/24 04/10/24 06:40 06:53 08:50 MCV MCH MCHC RDW Plt Count MPV Immature Gran % (Auto) Neut % (Auto) Lymph % (Auto) Cottle % (Auto) Eos % (Auto) Baso % (Auto) Lymph # (Auto) Cottle # (Auto) Eos # (Auto) Baso # (Auto) Abs Immat Gran (auto) Absolute Neuts (auto) Absolute Nucleated RBC Nucleated RBC % (auto) ESR Anion Gap Estim Creat Clear Calc Estimated GFR POC Glucose 70 72 127 H Random Glucose Lactic Acid Calcium Magnesium Total Bilirubin Direct Bilirubin AST ALT Alkaline Phosphatase Ammonia C-Reactive Protein B-Natriuretic Peptide Total Protein Albumin Urine Color Urine Appearance Urine pH Ur Specific [place] Urine Protein Urine Glucose (UA) Urine Ketones Urine Blood Urine Nitrite Ur Leukocyte Esterase Urine RBC Urine WBC Ur Squamous Epith Cells Urine Bacteria Hyaline Casts Urine Opiates Screen Ur Buprenorphine Scrn Ur Oxycodone Screen Urine Methadone Screen Urine Fentanyl Screen Ur Barbiturates Screen Ur Phencyclidine Scrn Ur Amphetamines Screen U Benzodiazepines Scrn Urine Cocaine Screen U Marijuana (THC) Screen Ethyl Alcohol 04/10/24 11:11 MCV MCH MCHC RDW Plt Count MPV Immature Gran % (Auto) Neut % (Auto) Lymph % (Auto) Cottle % (Auto) Eos % (Auto) Baso % (Auto) Lymph # (Auto) Cottle # (Auto) Eos # (Auto) Baso # (Auto) Abs Immat Gran (auto) Absolute Neuts (auto) Absolute Nucleated RBC Nucleated RBC % (auto) ESR Anion Gap Estim Creat Clear Calc Estimated GFR POC Glucose 90 Random Glucose Lactic Acid Calcium Magnesium Total Bilirubin Direct Bilirubin AST ALT Alkaline Phosphatase Ammonia C-Reactive Protein B-Natriuretic Peptide Total Protein Albumin Urine Color Urine Appearance Urine pH Ur Specific [place] Urine Protein Urine Glucose (UA) Urine Ketones Urine Blood Urine Nitrite Ur Leukocyte Esterase Urine RBC Urine WBC Ur Squamous Epith Cells Urine Bacteria Hyaline Casts Urine Opiates Screen Ur Buprenorphine Scrn Ur Oxycodone Screen Urine Methadone Screen Urine Fentanyl Screen Ur Barbiturates Screen Ur Phencyclidine Scrn Ur Amphetamines Screen U Benzodiazepines Scrn Urine Cocaine Screen U Marijuana (THC) Screen Ethyl Alcohol Microbiology Microbiology Results: Microbiology 04/09/24 12:29 Gram Stain - Final Leg - Right Routine Culture - Preliminary Culture in progress. Assessment and Plan (1) Bilateral lower leg cellulitis: Status: Acute (2) Acute osteomyelitis: Status: Acute (3) Hypoglycemia: Status: Acute (4) Skin infection: Status: Acute (5) Diabetes: Status: Acute Plan 63 yo wheelchair bound male with history of diabetes, PVD s/p right BKA 09/2023, chronic pain on methadone, history of left ankle/foot osteomyelitis with hx TMA, atrial fibrillation not on anticoagulation, HTN, hepatitis C s/p treatment in 2009 admitted for further management of infected unstageable ulcer R BKA stump with bilateral cellulitis. # acute Rt BKA stump osteomyelitis r/t PVD with bilateral cellulitis and ulcers infection XR shows evidence of osteomyelitis R tibia IV vancomycin and Zosyn (initiated 04/09) pain management p.r.n. 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 hold Lantus for now POC glucose, diabetic diet Humalog on sliding scale # chronic pain disorder continue methadone-follows with PHN # paroxysmal atrial fibrillation not on anticoagulation continue diltiazem # hypertension continue diltiazem # chronic normocytic anemia likely related to chronic disease H/H above transfusion threshold, baseline DVT prophylaxis-heparin Full code Patient requires inpatient stay overnight for management of bilateral lower extremity cellulitis with infected extremity ulcers and RLE Osteomyelitis requiring IV antibiotics, close monitoring of cultures, expert consultation and possible surgical intervention. Quality Stroke Does the patient have a stroke diagnosis?: No VTE Prior VTE?: No VTE Risk Level:: Medical - moderate - high VTE Device Contraindication: Treatment Not Indicated VTE Drug Contraindication: N/A - Med Ordered
--- NOTE | 2024-04-10 12:30 | MHC.CM.PN ---
Addendum entered by Sharon Celaya 04/10/24 14:14: [facility] IS FOLLOWING FOR A BED OFFER WHEN MEDICALLY CLEARED. Original Note: CM MET WITH PT AT BEDSIDE. PT ESSENTIALLY HOMELESS, STAYS AT OTHER'S HOMES. PT IS W/C BOUND. DAUGHTER ASSISTS HIM WITH TRANSPORTATION TO APPT'S. [facility] +HCP PCP HASEEB CALIX CNP AT [facility] DP: PT WILL NEED PLACEMENT FOR LT IV ABT. PT AGREEABLE TO REFERRAL TO [facility] THEY ARE CONTRACTED WITH HIS INSURANCE AND CAN MANAGE METHADONE. PT WILL REQUIRE BLS TRANSPORT. CM WILL CONTINUE TO FOLLOW FOR ANY CHANGE TO DC PLAN.
[2024-04-10] MEDS: methADONE HCl 20 MG/2 ML ORAL.CONC 80 MG PO (12:51)
--- NOTE | 2024-04-10 13:58 | HO.WOUND ---
Wound Consult: Initial 63yr old?[place] [facility] [place] See progress notes and H&P for detailed history.? Wound consult placed for Right BKA site and Left Lower Leg wounds POA.? Patient agreeable to assessment and photo documentation.?Patient reports the wound seems to appear quickly. There is evidence of previous injury to the left leg however patient denies at this time. Patient educated on the importance of blood sugar control, he reports understanding. Right BKA site Right Lateral BKA Etiology: ?Diabetic wound Measurements: 5.5cm x 4.5cm x0.2 cm Wound Bed: adhernt yellow slough firmly attached central area of fluctance noted. No dressing inplace at time of arrival suspect this explains the dry appearance Drainage / Odor: clifton yellow drainage noted on bed linen - no odor noted Edges: ? Irregular and nonadherent Shara wound: dry thick callused tissue mild erythema noted ? No Induration, Fluctuance or Warmth noted Pain: denies pain Goals of Treatment: Moist wound healing with Durafiber AG ? Left Lateral Foot Etiology: ?Diabetic wound Measurements: 1cm x 1cm x0.2 cm Wound Bed: adherent scab vs eschar firmly attached central area of fluctance noted. Drainage / Odor: none noted Edges: ? Irregular Shara wound: mild erythema noted ? No Induration noted Pain: denies pain Goals of Treatment: Betadine to stabilize and keep dry. Left Leg Etiology: Venous wound Measurements: various sized wound beds largest 2.2cm in length Wound Bed: various stages of wound beds - adherent scabs and clean pale pink wound beds Drainage / Odor: serous drainage noted on bed linen - no odor noted Edges: ? Irregular Shara wound: Hemosiderin staining noted - scar tissue noted - No Induration, Fluctuance or Warmth noted Pain: denies pain Goals of Treatment: Moist wound healing with xeroform Recommendations: 1. Turn and Reposition every 2 hours and as needed for patient comfort.? Use pillows or wedges to support off loading positions. 2. Off Load all bony prominences with use of pillows and heel boots if needed.? Apply Preventative foams where needed. ? 3. Monitor for incontinence and moisture control, use barrier creams when needed for prevention and treatment. 4. Provide adequate and supplemental nutrition.? 5. Order low air loss mattress. 6. Maintain blood glucose levels per Providers order. 7. Left Lateral Foot - Apply Betadine allow to dry cover with dry gauze, change daily. Do not apply foam dressing to left foot. 8. Left Leg - Elevate leg off of surface of bed with use of pillows.? Cleanse with NS, Pat dry.? Apply lotion to lower leg, apply layer of Xeroform to open wound beds secure with ABD pad, gauze wrap and tape.? Change Daily. 9. Right BKA site - Cleanse with NS, Pat dry.? Apply skin prep to periwound, cover wound bed with Durafiber AG.? Cover with Foam dressing.? Change every other day. Re-consult wound care Nurse for wound deterioration or wound changes.
--- NOTE | 2024-04-10 15:20 | PM.CNGS ---
History of Present Illness Consult details Consult date: 04/10/24 Narrative: 63-year-old male patient well known to me with a long history of peripheral vascular disease, previous bilateral transmetatarsal amputations followed by right below-knee amputation returning to the ED with bilateral lower extremity wounds. He has a past medical history of diabetes mellitus, peripheral vascular disease, chronic pain on methadone, atrial fibrillation, hypertension, hepatitis-C. He was being followed as an outpatient for wound care however has not followed up in several months because of difficulty with transportation. In the emergency department he was found to have WBC of 12.5. X-ray of the right tibia fibula shows acute osteomyelitis about the distal tibia of the stump. He is admitted for IV antibiotics. Review of Systems Review of Systems: Yes Unobtainable due to mental condition PMFSH Past Medical History Medical History Hx of hepatitis Diabetic ulcer of right foot Atrial fibrillation Hypertension Diabetes Family History Family History Father History of lung cancer Mother History of diabetes mellitus Surgical History Surgical History 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 History of transmetatarsal amputation of foot (~09/2016) History of amputation of toe (~08/18/14) History of amputation of toe (~10/21/13) History of lipoma Social History Social History Household Members: Children Housing: Apartment Housing Other:: patient is homeless, couch surfing with friends/family Do you presently have visiting nurse or other home services: No Alcohol intake: never Patient Tobacco Use Status: Current everyday Tobacco user Tobacco use type: Cigarette Cigarettes Per Day: 6 Years Smoked: 49 Smoked in Last 30 Days: Yes Patient Interested in Nicotine Replacement: Yes Patient Given Instructions on How to Stop Smoking: No Second Hand Smoke Exposure: Yes Use of substances other than those prescribed or required for medical reasons: No Substance Use Type: Crack/Cocaine Have you been hit, kicked, punched, or otherwise hurt by someone within the past year? If so, by whom?: No Do you feel safe in your current relationship?: No Current Relationship Is there a partner from a previous relationship who is making you feel unsafe now?: No Are you made to feel afraid or neglected: No Advance Directives: No Do you have a plan to hurt others: No Plan Recently lost weight without trying: No Eating poorly because of decreased appetite: No Nutrition Risks: No Nutritional Risk Poor oral hygiene: No service: No Meds Allergies Allergy/AdvReac Type Severity Reaction Status Date / Time furosemide [Lasix] Allergy Intermediate Hives Verified 04/09/24 11:33 levofloxacin [Levaquin] Allergy Unknown Gastrointestinal Verified 04/09/24 11:33 Upset metronidazole [Flagyl] Allergy Unknown Unknown Verified 04/09/24 11:33 latex Allergy Rash Verified 04/09/24 11:33 contrast dye Allergy Unknown rash, hives Uncoded 10/24/23 15:09 Active Medications: Current Medications Acetaminophen (Acetaminophen 325 Mg Tablet) 650 mg PO Q6H PRN PRN Reason: Pain, Mild (Pain Scale 1-3) Amitriptyline HCl (Amitriptyline Hcl 50 Mg Tablet) 50 mg PO BEDTIME [facility] Diltiazem HCl (Diltiazem Hcl Cd 180 Mg Cap.Er.24h) 180 mg PO DAILY [facility]; Protocol Last Admin: 04/10/24 11:05 Dose: 180 mg Glucose (Glucose Gel 15 Gm Gel..Gram.) 15 gm PO Q15M PRN; Protocol PRN Reason: per Hypoglycemia Standing Ord. Last Admin: 04/10/24 06:26 Dose: 15 gm Heparin Sodium (Porcine) (Heparin Sodium,Porcine 5,000 Unit/Ml Vial) 5,000 unit SUBCUT Q12H [facility] Last Admin: 04/10/24 09:45 Dose: 5,000 unit Hydralazine HCl (Hydralazine Hcl 25 Mg Tablet) 25 mg PO TID [facility]; Protocol Last Admin: 04/10/24 11:06 Dose: 25 mg Piperacillin Sod/Tazobactam (Sod 4.5 gm/ Sodium Chloride) 100 mls @ 200 mls/hr IV Q6H [facility] Last Admin: 04/10/24 12:26 Dose: 200 mls/hr Dextrose (D10) 250 mls @ 750 mls/hr IV Q15M PRN; Protocol PRN Reason: per Hypoglycemia Standing Ord. Vancomycin HCl 1,000 mg/ (Sodium Chloride) 270 mls @ 270 mls/hr IV Q12H [facility] Last Infusion: 04/10/24 12:12 Dose: Infused Insulin Human Lispro (Insulin Lispro 100 Unit/Ml 3 Ml Vial) 0 unit SUBCUT QIDACHS [facility]; Protocol Last Admin: 04/10/24 11:35 Dose: Not Given Magnesium Hydroxide (Milk Of Magnesia 30 Ml Oral.Susp) 30 ml PO DAILY PRN PRN Reason: Constipation Methadone HCl (Methadone Hcl 20 Mg/2 Ml Oral.Conc) 80 mg PO DAILY [facility] Last Admin: 04/10/24 12:51 Dose: 80 mg Nicotine (Nicotine 7 Mg Patch.Td24) 7 mg TRANSDERMA DAILY [facility] Last Admin: 04/10/24 09:48 Dose: 7 mg Ondansetron HCl (Ondansetron Hcl 4 Mg/2 Ml Vial) 4 mg IVPUSH Q8H PRN PRN Reason: Nausea and Vomiting Oxycodone HCl (Oxycodone Hcl Immed Release 5 Mg Tablet) 5 mg PO Q6H PRN PRN Reason: Pain, Moderate(Pain Scale 4-6) Pharmacy Consult (Consult Rx Vancomycin Dosing) 1 each MISCELLANE DAILY PRN PRN Reason: Consult order Sodium Chloride (0.9 % Sodium Chloride Flush 3 Ml Syringe) 3 ml IVFLUSH QSHIFT [facility] Last Admin: 04/10/24 09:47 Dose: 3 ml Home Medications ?Medication ?Instructions ?Recorded ?Confirmed ?Last Taken ?Type insulin glargine 100 unit/mL 45 unit subcut BID 08/11/20 04/09/24 Unknown History subcutaneous solution (Lantus U-100 Insulin) amitriptyline 50 mg tablet 50 mg PO BEDTIME 12/09/20 04/09/24 Unknown History blood sugar diagnostic (FreeStyle #10 ea 03/08/22 10/28/23 Unknown History Lite Strips) insulin syringe-needle U-100 1 mL #10 marline 03/08/22 10/28/23 Unknown History 31 gauge x 5/16 (BD Insulin Syringe Ultra-Fine) diltiazem HCl 180 mg capsule,24 180 mg PO DAILY 04/09/24 04/09/24 Unknown History hr,extended release methadone 10 mg/mL oral concentrate 80 mg PO DAILY 04/10/24 04/10/24 04/09/24 07:30 History Physical Exam Vital Signs: Vital Signs: Last Vital Signs Temp 97.1 F 04/10/24 08:00 Pulse 68 04/10/24 11:05 Resp 18 04/10/24 08:00 BP 140/70 H 04/10/24 11:06 Pulse Ox 97 04/10/24 08:00 O2 Del Method Room Air 04/10/24 08:00 BMI result Body Mass Index 31.3 Const: General: no acute distress and awake Nutritional Appearance: well nourished Resp: Effort & Inspection: normal respiratory effort, no audible wheezes, no cough and no respiratory distress GI: Inspection: Yes normal to inspection Extrem: Other: Right BKA stump with a mostly well-healed incision however an open wound is noted on the medial surface of the incision. On the lateral stump surface another ulcers noted with surrounding callus and a yellow base measuring several cm in diameter.. The stump is moderately swollen. Left foot is status post transmetatarsal amputation. There there are venous stasis changes along the lateral surface of the left leg. Ulcer noted at the plantar surface as well. Results Labs 04/10/24 05:33 04/10/24 05:33 Labs: Abnormal lab results 04/10/24 04/10/24 04/10/24 Range/Units 01:50 01:51 05:33 WBC 10.9 H (4.8-10.8) X10*3/uL RBC 3.44 L (4.60-5.80) X10*6/uL Hgb 9.0 L (14.0-18.0) g/dl Hct 28.4 L (42.0-52.0) % MCH 26.2 L (27.0-33.0) pg Neut % (Auto) 78.2 H (45-73) % Lymph % (Auto) 12.6 L (20-40) % Abs Immat Gran (auto) 0.04 H (0.00-0.03) X10*3/uL Absolute Neuts (auto) 8.5 H (2.0-8.3) x10*3/uL Anion Gap 11 L (12-20) POC Glucose (60-115) mg/dL Random Glucose 45 L* (60-115) mg/dL Urine Protein 300 (3+) H (Neg-Trace) mg/dL Urine Methadone Screen Positive H (Not Detect) ng/mL Urine Cocaine Screen POSITIVE H (Not Detect) 04/10/24 Range/Units 08:50 WBC (4.8-10.8) X10*3/uL RBC (4.60-5.80) X10*6/uL Hgb (14.0-18.0) g/dl Hct (42.0-52.0) % MCH (27.0-33.0) pg Neut % (Auto) (45-73) % Lymph % (Auto) (20-40) % Abs Immat Gran (auto) (0.00-0.03) X10*3/uL Absolute Neuts (auto) (2.0-8.3) x10*3/uL Anion Gap (12-20) POC Glucose 127 H (60-115) mg/dL Random Glucose (60-115) mg/dL Urine Protein (Neg-Trace) mg/dL Urine Methadone Screen (Not Detect) ng/mL Urine Cocaine Screen (Not Detect) Short CBC 04/10/24 Range/Units 05:33 WBC 10.9 H (4.8-10.8) X10*3/uL Hgb 9.0 L (14.0-18.0) g/dl Hct 28.4 L (42.0-52.0) % Plt Count 342 (160-400) X10*3/uL BMP 04/10/24 05:33 Sodium 138 Potassium 3.9 D Chloride 105 Carbon Dioxide 26 BUN 15 Creatinine 0.93 Calcium 8.8 Urine 04/10/24 Range/Units 01:50 Urine Color Yellow Urine Appearance Clear Urine pH 5.5 (5.0-9.0) Ur Specific Walker 1.025 (1.005-1.025) Urine Protein 300 (3+) H (Neg-Trace) mg/dL Urine Glucose (UA) Negative (Negative) mg/dL All other labs normal. Assessment and Plan (1) Bilateral lower leg cellulitis: Status: Acute (2) Acute osteomyelitis: Status: Acute Plan Unfortunate 63-year-old male with a long history of peripheral vascular disease and prior amputations. Patient has a difficult home situation making wound care difficult. Appreciate wound care nurse input. Patient should continue with local wound care and may benefit from discharge to a long-term facility. We will continue to monitor during his hospitalization. Procedures Date of Service Date of Service: 04/10/24
--- NOTE | 2024-04-10 16:32 | P.CNID_ITS ---
History of Present Illness Data of Consult Service Date: 04/10/24 Requesting physician: Mina Kelly Primary Care Provider: CHANEL Bustamante HPI Reason for consult: right BKA OM tib/fib He presents with concern over ulcers LE. He has RLE pain and some encephalopathy reported. He has PVD with right BKA 09/2023 and hasnt been using prosthesis. He has ESR of 102. He has XR tib OM stump. He also has blood cultures negative. Review of Systems 2 Review of Systems: Yes all other systems are reviewed and are negative PMFSH Past Medical History Medical History Hx of hepatitis Diabetic ulcer of right foot Atrial fibrillation Hypertension Diabetes Family History Family History Father History of lung cancer Mother History of diabetes mellitus Family history: reviewed and not pertinent Surgical History Surgical History 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 History of transmetatarsal amputation of foot (~09/2016) History of amputation of toe (~08/18/14) History of amputation of toe (~10/21/13) History of lipoma Social History Social History Household Members: Children Housing: Apartment Housing Other:: patient is homeless, couch surfing with friends/family Do you presently have visiting nurse or other home services: No Alcohol intake: never Patient Tobacco Use Status: Current everyday Tobacco user Tobacco use type: Cigarette Cigarettes Per Day: 6 Years Smoked: 49 Smoked in Last 30 Days: Yes Patient Interested in Nicotine Replacement: Yes Patient Given Instructions on How to Stop Smoking: No Second Hand Smoke Exposure: Yes Use of substances other than those prescribed or required for medical reasons: No Substance Use Type: Crack/Cocaine Have you been hit, kicked, punched, or otherwise hurt by someone within the past year? If so, by whom?: No Do you feel safe in your current relationship?: No Current Relationship Is there a partner from a previous relationship who is making you feel unsafe now?: No Are you made to feel afraid or neglected: No Advance Directives: No Do you have a plan to hurt others: No Plan Recently lost weight without trying: No Eating poorly because of decreased appetite: No Nutrition Risks: No Nutritional Risk Poor oral hygiene: No service: No Meds Allergies Allergy/AdvReac Type Severity Reaction Status Date / Time furosemide [Lasix] Allergy Intermediate Hives Verified 04/09/24 11:33 levofloxacin [Levaquin] Allergy Unknown Gastrointestinal Verified 04/09/24 11:33 Upset metronidazole [Flagyl] Allergy Unknown Unknown Verified 04/09/24 11:33 latex Allergy Rash Verified 04/09/24 11:33 contrast dye Allergy Unknown rash, hives Uncoded 10/24/23 15:09 Active Medications: Current Medications Acetaminophen (Acetaminophen 325 Mg Tablet) 650 mg PO Q6H PRN PRN Reason: Pain, Mild (Pain Scale 1-3) Amitriptyline HCl (Amitriptyline Hcl 50 Mg Tablet) 50 mg PO BEDTIME [facility] Diltiazem HCl (Diltiazem Hcl Cd 180 Mg Cap.Er.24h) 180 mg PO DAILY [facility]; Protocol Last Admin: 04/10/24 11:05 Dose: 180 mg Glucose (Glucose Gel 15 Gm Gel..Gram.) 15 gm PO Q15M PRN; Protocol PRN Reason: per Hypoglycemia Standing Ord. Last Admin: 04/10/24 06:26 Dose: 15 gm Heparin Sodium (Porcine) (Heparin Sodium,Porcine 5,000 Unit/Ml Vial) 5,000 unit SUBCUT Q12H [facility] Last Admin: 04/10/24 09:45 Dose: 5,000 unit Hydralazine HCl (Hydralazine Hcl 25 Mg Tablet) 25 mg PO TID [facility]; Protocol Last Admin: 04/10/24 15:52 Dose: 25 mg Piperacillin Sod/Tazobactam (Sod 4.5 gm/ Sodium Chloride) 100 mls @ 200 mls/hr IV Q6H [facility] Last Infusion: 04/10/24 13:00 Dose: Infused Dextrose (D10) 250 mls @ 750 mls/hr IV Q15M PRN; Protocol PRN Reason: per Hypoglycemia Standing Ord. Vancomycin HCl 1,000 mg/ (Sodium Chloride) 270 mls @ 270 mls/hr IV Q12H [facility] Last Infusion: 04/10/24 12:12 Dose: Infused Insulin Human Lispro (Insulin Lispro 100 Unit/Ml 3 Ml Vial) 0 unit SUBCUT QIDACHS [facility]; Protocol Last Admin: 04/10/24 11:35 Dose: Not Given Magnesium Hydroxide (Milk Of Magnesia 30 Ml Oral.Susp) 30 ml PO DAILY PRN PRN Reason: Constipation Methadone HCl (Methadone Hcl 20 Mg/2 Ml Oral.Conc) 80 mg PO DAILY [facility] Last Admin: 04/10/24 12:51 Dose: 80 mg Nicotine (Nicotine 7 Mg Patch.Td24) 7 mg TRANSDERMA DAILY [facility] Last Admin: 04/10/24 09:48 Dose: 7 mg Ondansetron HCl (Ondansetron Hcl 4 Mg/2 Ml Vial) 4 mg IVPUSH Q8H PRN PRN Reason: Nausea and Vomiting Oxycodone HCl (Oxycodone Hcl Immed Release 5 Mg Tablet) 5 mg PO Q6H PRN PRN Reason: Pain, Moderate(Pain Scale 4-6) Pharmacy Consult (Consult Rx Vancomycin Dosing) 1 each MISCELLANE DAILY PRN PRN Reason: Consult order Sodium Chloride (0.9 % Sodium Chloride Flush 3 Ml Syringe) 3 ml IVFLUSH QSHIFT [facility] Last Admin: 04/10/24 15:53 Dose: 3 ml Home Medications ?Medication ?Instructions ?Recorded ?Confirmed ?Last Taken ?Type insulin glargine 100 unit/mL 45 unit subcut BID 08/11/20 04/09/24 Unknown History subcutaneous solution (Lantus U-100 Insulin) amitriptyline 50 mg tablet 50 mg PO BEDTIME 12/09/20 04/09/24 Unknown History blood sugar diagnostic (FreeStyle #10 ea 03/08/22 10/28/23 Unknown History Lite Strips) insulin syringe-needle U-100 1 mL #10 ea 03/08/22 10/28/23 Unknown History 31 gauge x 5/16 (BD Insulin Syringe Ultra-Fine) diltiazem HCl 180 mg capsule,24 180 mg PO DAILY 04/09/24 04/09/24 Unknown History hr,extended release methadone 10 mg/mL oral concentrate 80 mg PO DAILY 04/10/24 04/10/24 04/09/24 07:30 History Physical Exam 2 Vital Signs: Vital Signs: Last Vital Signs Temp 97.1 F 04/10/24 08:00 Pulse 68 04/10/24 11:05 Resp 18 04/10/24 08:00 BP 151/72 H 04/10/24 15:52 Pulse Ox 97 04/10/24 08:00 O2 Del Method Room Air 04/10/24 08:00 BMI result Body Mass Index 31.3 Const: General: cooperative HEENT: Head: Yes normal to inspection Face and sinus: Yes normal facial exam Mouth: Normal oral and palatal mucosa present Teeth and gingiva: d entition normal Eyes: General: appearance normal, both eyes and all related structures P upils: Equal, round and reactive pupils present Resp: Effort & Inspection: normal respiratory effort Cardio: Rate: regular rate Rhythm: regular rhythm GI: Palpation (GI): Soft to palpation and nontender : General: Yes no CVA tenderness Back/Spine/Pelvis: Back: no CVA tenderness Skin: General skin exam: no rashes or lesions noted Neuro: General: moves all extremities Cranial nerves: Yes Equal, round and reactive pupils present Extrem: Other: exudate right stump /open ,left TMA clear neuropathy General: Yes normal to inspection Psych: Appearance: grossly normal Results Labs 04/10/24 05:33 04/10/24 05:33 Labs: Short CBC 04/10/24 Range/Units 05:33 WBC 10.9 H (4.8-10.8) X10*3/uL Hgb 9.0 L (14.0-18.0) g/dl Hct 28.4 L (42.0-52.0) % Plt Count 342 (160-400) X10*3/uL BMP 04/10/24 05:33 Sodium 138 Potassium 3.9 D Chloride 105 Carbon Dioxide 26 BUN 15 Creatinine 0.93 Calcium 8.8 Urine 04/10/24 Range/Units 01:50 Urine Color Yellow Urine Appearance Clear Urine pH 5.5 (5.0-9.0) Ur Specific [place] 1.025 (1.005-1.025) Urine Protein 300 (3+) H (Neg-Trace) mg/dL Urine Glucose (UA) Negative (Negative) mg/dL Microbiology Microbiology Results: Microbiology 04/09/24 12:29 Blood - Venous Blood Culture - Preliminary No growth after 24 hours. 04/09/24 12:22 Blood - Venous Blood Culture - Preliminary No growth after 24 hours. 04/09/24 12:29 Leg - Right Gram Stain - Final 04/09/24 12:29 Leg - Right Routine Culture - Preliminary Culture in progress. Assessment and Plan (1) Acute osteomyelitis: Status: Acute (2) Bilateral lower leg cellulitis: Status: Acute (3) Below knee amputation: Status: Acute (4) Diabetes: Status: Acute Plan He has OM right stump. Possible staph or strep ,less likely gram negative h/o Group B strep,no MRSA history. 6 weeks IV Ertapenem suppressive with weekly CBC and creatinine Surgery or Vascular ?debridement.
[2024-04-10 17:24] LABS: Glucose, Whole Blood 117 mg/dL (60-115)
[2024-04-10 19:57] LABS: Glucose, Whole Blood 111 mg/dL (60-115)
[2024-04-10] MEDS: Amitriptyline HCl 50 MG TABLET PO (20:38)
[2024-04-10 21:22] LABS: Vancomycin Random 18.4 mcg/mL (15-20)
[2024-04-10] MEDS: vancomycin HCL 750 MG in 0.9 % Sodium Chloride 250 ML 265 MG IV (22:57)
[2024-04-11] VITALS (8 sets, daily range): BP systolic 143–168; BP diastolic 68–78; PULSE 61–71; RESP 14–18; TEMP 36–36.1; O2SAT 98–100
[2024-04-11] MEDS: Piperacillin Sodium/Tazobactam 4.5 GM in 0.9 % Sodium Chloride 100 ML IV ×2 (01:07→05:52)
[2024-04-11 07:45] LABS: Glucose, Whole Blood 80 mg/dL (60-115)
[2024-04-11] MEDS: Nicotine 7 MG PATCH.TD24 TRANSDERMA (09:22)
[2024-04-11] MEDS: Heparin Sodium,Porcine 5,000 UNIT/ML VIAL 5000 UNIT SUBCUT ×2 (09:22→20:00)
[2024-04-11] MEDS: hydrALAZINE HCl 25 MG TABLET PO ×3 (09:22→20:00)
[2024-04-11] MEDS: methADONE HCl 20 MG/2 ML ORAL.CONC 80 MG PO (09:23)
[2024-04-11] MEDS: 0.9 % Sodium Chloride Flush 3 ML SYRINGE IVFLUSH ×3 (09:23→19:57)
[2024-04-11] MEDS: dilTIAZem HCL CD 180 MG CAP.ER.24H PO (09:23)
[2024-04-11] MEDS: vancomycin HCL 750 MG in 0.9 % Sodium Chloride 250 ML 265 MG IV ×2 (10:48→22:28)
[2024-04-11 11:06] LABS: Hematocrit 27.9 % (42.0-52.0); Hemoglobin 8.9 g/dl (14.0-18.0); Mean Corpuscular HGB Conc 31.9 g/dl (31.0-36.0); Mean Corpuscular Hemoglobin 26.2 pg (27.0-33.0); Mean Corpuscular Volume 82.1 fL (80.0-98.0); Mean Platelet Volume 10.2 fL (9.4-12.4); Platelet Count 323 X10*3/uL (160-400); Red Cell Distribution Width 14.2 % (11.0-16.0); White Blood Count 7.1 X10*3/uL (4.8-10.8)
[2024-04-11 11:17] LABS: Anion Gap 11 (12-20); Blood Urea Nitrogen 14 mg/dL (9-16); Calcium 8.8 mg/dL (8.4-10.2); Carbon Dioxide 27 mmol/L (22-29); Chloride 103 mmol/L (96-108); Creatinine Clr Calc Pharmacy 92.4; Creatinine Clr Calc Pharmacy 95.6; Estimated Glomerular Filt Rate > 60; Glucose Random 191 mg/dL (60-115); Potassium 3.7 mmol/L (3.3-5.1); Sodium 137 mmol/L (135-145)
[2024-04-11 11:25] LABS: Glucose, Whole Blood 184 mg/dL (60-115)
[2024-04-11] MEDS: Insulin Lispro 100 UNIT/ML 3 ML VIAL SUBCUT (11:51)
--- NOTE | 2024-04-11 12:48 | HO.PM.IMPN ---
Subjective Subjective Date of Service: 04/11/24 Interval History: seen and evaluated this morning no more episodes of low sugar levels wounds feel better now No fever or chills reported Review of Systems Review of Systems: Yes all other systems are reviewed and are negative Physical Exam Vital Signs: Vital Signs: Last Vital Signs Temp 96.8 F 04/11/24 07:19 Pulse 62 04/11/24 09:23 Resp 14 04/11/24 07:19 BP 147/68 H 04/11/24 09:23 Pulse Ox 100 04/11/24 07:19 O2 Del Method Room Air 04/11/24 07:19 BMI result Body Mass Index 31.3 Const: Other: Constitutional : Awake, interactive, not in distress Neck : Normal inspection, Supple Cardiovascular : RRR, no JVP, no lower extremity edema Respiratory : good bilateral air entry, no crackles, wheezes or rhonchi Gastrointestinal: soft, lax, Normal bowel sounds, Non tender Skin : Warm, Dry, Extremities: LLE transmetatarsal amputation, RLE BKA with open wound at base of stump with no significant erythema covered with dressing Neurological : Alert & oriented x3, No focal deficit Objective Data Active Medications Acetaminophen (Acetaminophen 325 Mg Tablet) 650 mg PO Q6H PRN PRN Reason: Pain, Mild (Pain Scale 1-3) Amitriptyline HCl (Amitriptyline Hcl 50 Mg Tablet) 50 mg PO BEDTIME [facility] Last Admin: 04/10/24 20:38 Dose: 50 mg Documented By: SAMIRA Diltiazem HCl (Diltiazem Hcl Cd 180 Mg Cap.Er.24h) 180 mg PO DAILY [facility]; Protocol Last Admin: 04/11/24 09:23 Dose: 180 mg Documented By: HÉCTOR Glucose (Glucose Gel 15 Gm Gel..Gram.) 15 gm PO Q15M PRN; Protocol PRN Reason: per Hypoglycemia Standing Ord. Last Admin: 04/10/24 06:26 Dose: 15 gm Documented By: DEE Heparin Sodium (Porcine) (Heparin Sodium,Porcine 5,000 Unit/Ml Vial) 5,000 unit SUBCUT Q12H [facility] Last Admin: 04/11/24 09:22 Dose: 5,000 unit Documented By: HÉCTOR Hydralazine HCl (Hydralazine Hcl 25 Mg Tablet) 25 mg PO TID [facility]; Protocol Last Admin: 04/11/24 09:22 Dose: 25 mg Documented By: HÉCTOR Piperacillin Sod/Tazobactam (Sod 4.5 gm/ Sodium Chloride) 100 mls @ 200 mls/hr IV Q6H [facility] Last Infusion: 04/11/24 06:22 Dose: Infused Documented By: SAMIRA Dextrose (D10) 250 mls @ 750 mls/hr IV Q15M PRN; Protocol PRN Reason: per Hypoglycemia Standing Ord. Vancomycin HCl 750 mg/ Sodium (Chloride) 265 mls @ 265 mls/hr IV Q12H [facility] Last Infusion: 04/11/24 11:55 Dose: Infused Documented By: HÉCTOR Insulin Human Lispro (Insulin Lispro 100 Unit/Ml 3 Ml Vial) 0 unit SUBCUT QIDACHS [facility]; Protocol Last Admin: 04/11/24 11:51 Dose: 2 unit Documented By: HÉCTOR Magnesium Hydroxide (Milk Of Magnesia 30 Ml Oral.Susp) 30 ml PO DAILY PRN PRN Reason: Constipation Methadone HCl (Methadone Hcl 20 Mg/2 Ml Oral.Conc) 80 mg PO DAILY [facility] Last Admin: 04/11/24 09:23 Dose: 80 mg Documented By: HÉCTOR Nicotine (Nicotine 7 Mg Patch.Td24) 7 mg TRANSDERMA DAILY [facility] Last Admin: 04/11/24 09:22 Dose: 7 mg Documented By: HÉCTOR Ondansetron HCl (Ondansetron Hcl 4 Mg/2 Ml Vial) 4 mg IVPUSH Q8H PRN PRN Reason: Nausea and Vomiting Oxycodone HCl (Oxycodone Hcl Immed Release 5 Mg Tablet) 5 mg PO Q6H PRN PRN Reason: Pain, Moderate(Pain Scale 4-6) Pharmacy Consult (Consult Rx Vancomycin Dosing) 1 each MISCELLANE DAILY PRN PRN Reason: Consult order Sodium Chloride (0.9 % Sodium Chloride Flush 3 Ml Syringe) 3 ml IVFLUSH QSHIFT [facility] Last Admin: 04/11/24 09:23 Dose: 3 ml Documented By: HÉCTOR Labs 04/11/24 10:48 04/11/24 10:48 Labs: Laboratory Results - last 24 hr 04/10/24 04/10/24 04/10/24 17:20 19:53 20:59 MCV MCH MCHC RDW Plt Count MPV Absolute Nucleated RBC Nucleated RBC % (auto) Anion Gap Estim Creat Clear Calc Estimated GFR POC Glucose 117 H 111 Random Glucose Calcium Random Vancomycin 18.4 04/11/24 04/11/24 04/11/24 07:11 10:48 10:48 MCV 82.1 MCH 26.2 L MCHC 31.9 RDW 14.2 Plt Count 323 MPV 10.2 Absolute Nucleated RBC 0.000 Nucleated RBC % (auto) 0.0 Anion Gap 11 L Estim Creat Clear Calc 95.6 92.4 Estimated GFR > 60 POC Glucose 80 Random Glucose Calcium Random Vancomycin 04/11/24 04/11/24 10:48 11:21 MCV MCH MCHC RDW Plt Count MPV Absolute Nucleated RBC Nucleated RBC % (auto) Anion Gap Estim Creat Clear Calc Estimated GFR > 60 POC Glucose 184 H Random Glucose 191 H Calcium 8.8 Random Vancomycin Microbiology Microbiology Results: Microbiology 04/09/24 12:29 Gram Stain - Final Leg - Right Routine Culture - Preliminary Staphylococcus aureus 04/09/24 12:29 Blood Culture - Preliminary Blood - Venous No growth after 24 hours. 04/09/24 12:22 Blood Culture - Preliminary Blood - Venous No growth after 24 hours. Assessment and Plan (1) Bilateral lower leg cellulitis: Status: Acute (2) Acute osteomyelitis: Status: Acute (3) Hypoglycemia: Status: Acute Plan 63 yo wheelchair bound male with history of diabetes, PVD s/p right BKA 09/2023, chronic pain on methadone, history of left ankle/foot osteomyelitis with hx TMA, atrial fibrillation not on anticoagulation, HTN, hepatitis C s/p treatment in 2009 admitted for further management of infected unstageable ulcer R BKA stump with bilateral cellulitis. # acute Rt BKA stump osteomyelitis r/t PVD with bilateral cellulitis and ulcers infection XR shows evidence of osteomyelitis R tibia negative cultures continue IV vancomycin (initiated 04/09) Dc Zosyn pain management p.r.n. 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 hold Lantus for now POC glucose, diabetic diet Humalog on sliding scale # chronic pain disorder continue methadone-follows with PHN # paroxysmal atrial fibrillation not on anticoagulation continue diltiazem # hypertension continue diltiazem # chronic normocytic anemia likely related to chronic disease H/H above transfusion threshold, baseline DVT prophylaxis-heparin Full code Patient requires inpatient stay overnight for management of bilateral lower extremity cellulitis with infected extremity ulcers and RLE Osteomyelitis requiring IV antibiotics, close monitoring of cultures, expert consultation and possible surgical intervention. Quality Stroke Does the patient have a stroke diagnosis?: No VTE Prior VTE?: No VTE Risk Level:: Medical - moderate - high VTE Device Contraindication: Treatment Not Indicated VTE Drug Contraindication: N/A - Med Ordered
[2024-04-11 13:26] LABS: Estimated Average Glucose 131 mg/dL; Hemoglobin A1c % 6.2 % (<6.0)
[2024-04-11 16:06] LABS: Glucose, Whole Blood 118 mg/dL (60-115)
[2024-04-11] MEDS: Amitriptyline HCl 50 MG TABLET PO (20:00)
[2024-04-11 20:04] LABS: Glucose, Whole Blood 156 mg/dL (60-115)
--- NOTE | 2024-04-11 21:00 | PC.NURSE ---
This RN assumed care 1900, Pt AOx4, laying in bed with no apparent distress. Respirations even and unlabored, lung sounds clear through out. BSx4 mild tenderness with palpation. Midline dressing dry and intact. #20 R wrist, patent and intact. Pt denies pain at this time. Call rodríguez within reach
[2024-04-11 21:16] LABS: Vancomycin Random 17.5 mcg/mL (15-20)
[2024-04-11 22:56] LABS: Glucose, Whole Blood 137 mg/dL (60-115)
[2024-04-12 03:39] VITALS: BP 169/81; PULSE 66; RESP 14; TEMP 36; O2SAT 98
[2024-04-12 07:15] LABS: Creatinine Clr Calc Pharmacy 89.4; Estimated Glomerular Filt Rate > 60
[2024-04-12 07:19] LABS: Glucose, Whole Blood 110 mg/dL (60-115)
[2024-04-12 07:25] VITALS: BP 159/69; PULSE 59; RESP 18; TEMP 36.1; O2SAT 99
[2024-04-12 07:48] VITALS: BP 159/69; PULSE 59
[2024-04-12] MEDS: Heparin Sodium,Porcine 5,000 UNIT/ML VIAL 5000 UNIT SUBCUT ×2 (07:48→20:49)
[2024-04-12] MEDS: hydrALAZINE HCl 25 MG TABLET PO ×3 (07:48→20:49)
[2024-04-12] MEDS: dilTIAZem HCL CD 180 MG CAP.ER.24H PO (07:48)
[2024-04-12] MEDS: methADONE HCl 20 MG/2 ML ORAL.CONC 80 MG PO (07:49)
[2024-04-12] MEDS: Nicotine 7 MG PATCH.TD24 TRANSDERMA (07:49)
[2024-04-12] MEDS: 0.9 % Sodium Chloride Flush 3 ML SYRINGE IVFLUSH ×3 (07:49→20:50)
[2024-04-12 11:17] LABS: Glucose, Whole Blood 206 mg/dL (60-115)
[2024-04-12] MEDS: Insulin Lispro 100 UNIT/ML 3 ML VIAL SUBCUT ×2 (11:49→20:49)
[2024-04-12] MEDS: vancomycin HCL 750 MG in 0.9 % Sodium Chloride 250 ML 265 MG IV ×2 (11:50→23:46)
--- NOTE | 2024-04-12 13:19 | HO.PM.IMPN ---
Subjective Subjective Date of Service: 04/12/24 Interval History: seen and evaluated this morning no more episodes of low sugar levels wounds feel better now No fever or chills reported Physical Exam Vital Signs: Vital Signs: Last Vital Signs Temp 96.9 F 04/12/24 07:25 Pulse 59 04/12/24 07:48 Resp 18 04/12/24 07:25 BP 159/69 H 04/12/24 07:48 Pulse Ox 99 04/12/24 07:25 O2 Del Method Room Air 04/12/24 07:25 BMI result Body Mass Index 31.3 Const: Other: Constitutional : Awake, interactive, not in distress Neck : Normal inspection, Supple Cardiovascular : RRR, no JVP, no lower extremity edema Respiratory : good bilateral air entry, no crackles, wheezes or rhonchi Gastrointestinal: soft, lax, Normal bowel sounds, Non tender Skin : Warm, Dry, Extremities: LLE transmetatarsal amputation, RLE BKA with open wound at base of stump with no significant erythema covered with dressing Neurological : Alert & oriented x3, No focal deficit Objective Data Active Medications Acetaminophen (Acetaminophen 325 Mg Tablet) 650 mg PO Q6H PRN PRN Reason: Pain, Mild (Pain Scale 1-3) Amitriptyline HCl (Amitriptyline Hcl 50 Mg Tablet) 50 mg PO BEDTIME [facility] Last Admin: 04/11/24 20:00 Dose: 50 mg Documented By: ALISON Diltiazem HCl (Diltiazem Hcl Cd 180 Mg Cap.Er.24h) 180 mg PO DAILY [facility]; Protocol Last Admin: 04/12/24 07:48 Dose: 180 mg Documented By: HÉCTOR Glucose (Glucose Gel 15 Gm Gel..Gram.) 15 gm PO Q15M PRN; Protocol PRN Reason: per Hypoglycemia Standing Ord. Last Admin: 04/10/24 06:26 Dose: 15 gm Documented By: DEE Heparin Sodium (Porcine) (Heparin Sodium,Porcine 5,000 Unit/Ml Vial) 5,000 unit SUBCUT Q12H [facility] Last Admin: 04/12/24 07:48 Dose: 5,000 unit Documented By: HÉCTOR Hydralazine HCl (Hydralazine Hcl 25 Mg Tablet) 25 mg PO TID [facility]; Protocol Last Admin: 04/12/24 07:48 Dose: 25 mg Documented By: HÉCTOR Dextrose (D10) 250 mls @ 750 mls/hr IV Q15M PRN; Protocol PRN Reason: per Hypoglycemia Standing Ord. Vancomycin HCl 750 mg/ Sodium (Chloride) 265 mls @ 265 mls/hr IV Q12H [facility] Last Admin: 04/12/24 11:50 Dose: 265 mls/hr Documented By: HÉCTOR Insulin Human Lispro (Insulin Lispro 100 Unit/Ml 3 Ml Vial) 0 unit SUBCUT QIDACHS [facility]; Protocol Last Admin: 04/12/24 11:49 Dose: 4 unit Documented By: HÉCTOR Magnesium Hydroxide (Milk Of Magnesia 30 Ml Oral.Susp) 30 ml PO DAILY PRN PRN Reason: Constipation Methadone HCl (Methadone Hcl 20 Mg/2 Ml Oral.Conc) 80 mg PO DAILY [facility] Last Admin: 04/12/24 07:49 Dose: 80 mg Documented By: HÉCTOR Nicotine (Nicotine 7 Mg Patch.Td24) 7 mg TRANSDERMA DAILY [facility] Last Admin: 04/12/24 07:49 Dose: 7 mg Documented By: HÉCTOR Ondansetron HCl (Ondansetron Hcl 4 Mg/2 Ml Vial) 4 mg IVPUSH Q8H PRN PRN Reason: Nausea and Vomiting Oxycodone HCl (Oxycodone Hcl Immed Release 5 Mg Tablet) 5 mg PO Q6H PRN PRN Reason: Pain, Moderate(Pain Scale 4-6) Pharmacy Consult (Consult Rx Vancomycin Dosing) 1 each MISCELLANE DAILY PRN PRN Reason: Consult order Sodium Chloride (0.9 % Sodium Chloride Flush 3 Ml Syringe) 3 ml IVFLUSH QSHIFT [facility] Last Admin: 04/12/24 07:49 Dose: 3 ml Documented By: HÉCTOR Labs 04/11/24 10:48 04/12/24 05:42 Labs: Laboratory Results - last 24 hr 04/11/24 04/11/24 04/11/24 10:48 16:01 19:57 Hold Purple Top Estim Creat Clear Calc Estimated GFR POC Glucose 118 H 156 H Estimat Average Glucose 131 Hemoglobin A1c % 6.2 H Random Vancomycin 04/11/24 04/11/24 04/12/24 20:54 22:51 05:42 Hold Purple Top SEE NOTE Estim Creat Clear Calc 89.4 Estimated GFR > 60 POC Glucose 137 H Estimat Average Glucose Hemoglobin A1c % Random Vancomycin 17.5 04/12/24 04/12/24 07:11 11:08 Hold Purple Top Estim Creat Clear Calc Estimated GFR POC Glucose 110 206 H Estimat Average Glucose Hemoglobin A1c % Random Vancomycin Microbiology Microbiology Results: Microbiology 04/09/24 12:29 Gram Stain - Final Leg - Right Routine Culture - Final Methicillin Res Staph Aureus 04/09/24 12:29 Blood Culture - Preliminary Blood - Venous No growth after 48 hours. 04/09/24 12:22 Blood Culture - Preliminary Blood - Venous No growth after 48 hours. Assessment and Plan (1) Bilateral lower leg cellulitis: Status: Acute (2) Acute osteomyelitis: Status: Acute (3) Hypoglycemia: Status: Acute Plan 63 yo wheelchair bound male with history of diabetes, PVD s/p right BKA 09/2023, chronic pain on methadone, history of left ankle/foot osteomyelitis with hx TMA, atrial fibrillation not on anticoagulation, HTN, hepatitis C s/p treatment in 2009 admitted for further management of infected unstageable ulcer R BKA stump with bilateral cellulitis. # acute Rt BKA stump osteomyelitis r/t PVD with bilateral cellulitis and ulcers infection XR shows evidence of osteomyelitis R tibia negative cultures continue IV vancomycin (initiated 04/09) Dc Zosyn pain management p.r.n. 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 hold Lantus for now POC glucose, diabetic diet Humalog on sliding scale # chronic pain disorder continue methadone-follows with PHN # paroxysmal atrial fibrillation not on anticoagulation continue diltiazem # hypertension continue diltiazem # chronic normocytic anemia likely related to chronic disease H/H above transfusion threshold, baseline DVT prophylaxis-heparin Full code Patient requires inpatient stay overnight for management of bilateral lower extremity cellulitis with infected extremity ulcers and RLE Osteomyelitis requiring IV antibiotics, close monitoring of cultures, expert consultation and possible surgical intervention. Quality Stroke Does the patient have a stroke diagnosis?: No VTE Prior VTE?: No VTE Risk Level:: Medical - moderate - high VTE Device Contraindication: Treatment Not Indicated VTE Drug Contraindication: N/A - Med Ordered
[2024-04-12 15:24] VITALS: BP 160/78; PULSE 73; RESP 18; TEMP 36.6; O2SAT 100
[2024-04-12 15:51] VITALS: BP 160/78
[2024-04-12 16:03] LABS: Glucose, Whole Blood 119 mg/dL (60-115)
[2024-04-12 19:02] VITALS: BP 155/74; PULSE 73; RESP 18; TEMP 36.6; O2SAT 96
[2024-04-12 20:11] LABS: Glucose, Whole Blood 199 mg/dL (60-115)
[2024-04-12] MEDS: Amitriptyline HCl 50 MG TABLET PO (20:49)
[2024-04-12 22:34] LABS: Vancomycin Random 17.1 mcg/mL (15-20)
[2024-04-13] VITALS (7 sets, daily range): BP systolic 144–166; BP diastolic 66–82; PULSE 68–72; RESP 16–18; TEMP 36–36.8; O2SAT 96–100
[2024-04-13 07:08] LABS: Creatinine Clr Calc Pharmacy 92.4; Estimated Glomerular Filt Rate > 60
[2024-04-13 07:43] LABS: Glucose, Whole Blood 115 mg/dL (60-115)
[2024-04-13] MEDS: Nicotine 7 MG PATCH.TD24 TRANSDERMA (07:53)
[2024-04-13] MEDS: 0.9 % Sodium Chloride Flush 3 ML SYRINGE IVFLUSH ×3 (07:53→20:51)
[2024-04-13] MEDS: Heparin Sodium,Porcine 5,000 UNIT/ML VIAL 5000 UNIT SUBCUT ×2 (07:55→20:49)
[2024-04-13] MEDS: hydrALAZINE HCl 25 MG TABLET PO ×3 (07:56→20:49)
[2024-04-13] MEDS: dilTIAZem HCL CD 180 MG CAP.ER.24H PO (07:56)
[2024-04-13] MEDS: methADONE HCl 20 MG/2 ML ORAL.CONC 80 MG PO (07:57)
[2024-04-13] MEDS: vancomycin HCL 750 MG in 0.9 % Sodium Chloride 250 ML 265 MG IV ×2 (10:29→23:34)
--- NOTE | 2024-04-13 10:33 | HO.PICC ---
PICC Line Insertion NPICC Diagnosis: Osteomyelitis Indication: care home ABT Pertinent Labs: reviewed Technique: Following informed consent including risks, benefits and alternatives and using sterile technique including cap and mask, sterile gown, glove and drape, the right arm was prepped and draped in the usual sterile fashion of full barrier technique with CHG. Following completion of [place] Protocol the skin and soft tissues were anesthetized with 1% Lidocaine plain. Using ultrasound guidance, right basilic vein access was obtained. Over an 0.018 wire through peel-away sheath, a 5FR double lumen PASV PICC line was positioned. Catheter length is 42cm internal length, 1cm external length, for a total trimmed length of 42cm. The procedure was performed in rm 272. Tip verification was performed by George Roberts with Sherlock 3CG. Tip located in SVC. Ultrasound was used to document vein patency and for needle entry. A formal ultrasound picture and cardiac rhythm strip was recorded. [employer] Computer Terminal Operator has released the line for use and it is currently dressed with a StatLock, Tegaderm, and CHG disc. Verification has been performed for blood return and line patency. Arm Circumference: 32cm Equipment: [employer] SOLO with Sherlock 3CG Catheter Type: 5FR double lumen PASV Catheter Lot #: [id number]
--- NOTE | 2024-04-13 10:36 | P.PNIM_ITS ---
Subjective Subjective Date of Service: 04/13/24 Interval History: seen and evaluated this morning Pain under fair control wounds feel better No fever or chills reported Physical Exam 2 Vital Signs: Vital Signs: Last Vital Signs Temp 98.3 F 04/13/24 07:28 Pulse 69 04/13/24 07:56 Resp 17 04/13/24 07:28 BP 166/82 H 04/13/24 07:56 Pulse Ox 100 04/13/24 07:28 O2 Del Method Room Air 04/13/24 07:28 BMI result Body Mass Index 31.3 Const: Other: Constitutional : Awake, interactive, not in distress Neck : Normal inspection, Supple Cardiovascular : RRR, no JVP, no lower extremity edema Respiratory : good bilateral air entry, no crackles, wheezes or rhonchi Gastrointestinal: soft, lax, Normal bowel sounds, Non tender Skin : Warm, Dry, Extremities: LLE transmetatarsal amputation, RLE BKA with open wound at base of stump with no significant erythema covered with dressing Neurological : Alert & oriented x3, No focal deficit Objective Data Active Medications Acetaminophen (Acetaminophen 325 Mg Tablet) 650 mg PO Q6H PRN PRN Reason: Pain, Mild (Pain Scale 1-3) Amitriptyline HCl (Amitriptyline Hcl 50 Mg Tablet) 50 mg PO BEDTIME [facility] Last Admin: 04/12/24 20:49 Dose: 50 mg Documented By: SAMIRA Diltiazem HCl (Diltiazem Hcl Cd 180 Mg Cap.Er.24h) 180 mg PO DAILY [facility]; Protocol Last Admin: 04/13/24 07:56 Dose: 180 mg Documented By: CARLOS Glucose (Glucose Gel 15 Gm Gel..Gram.) 15 gm PO Q15M PRN; Protocol PRN Reason: per Hypoglycemia Standing Ord. Last Admin: 04/10/24 06:26 Dose: 15 gm Documented By: DEE Heparin Sodium (Porcine) (Heparin Sodium,Porcine 5,000 Unit/Ml Vial) 5,000 unit SUBCUT Q12H [facility] Last Admin: 04/13/24 07:55 Dose: 5,000 unit Documented By: CARLOS Hydralazine HCl (Hydralazine Hcl 25 Mg Tablet) 25 mg PO TID [facility]; Protocol Last Admin: 04/13/24 07:56 Dose: 25 mg Documented By: CARLOS Dextrose (D10) 250 mls @ 750 mls/hr IV Q15M PRN; Protocol PRN Reason: per Hypoglycemia Standing Ord. Vancomycin HCl 750 mg/ Sodium (Chloride) 265 mls @ 265 mls/hr IV Q12H [facility] Last Admin: 04/13/24 10:29 Dose: 265 mls/hr Documented By: CARLOS Insulin Human Lispro (Insulin Lispro 100 Unit/Ml 3 Ml Vial) 0 unit SUBCUT QIDACHS [facility]; Protocol Last Admin: 04/13/24 07:43 Dose: Not Given Documented By: CARLOS Non-Admin Reason: No Insulin Coverage Magnesium Hydroxide (Milk Of Magnesia 30 Ml Oral.Susp) 30 ml PO DAILY PRN PRN Reason: Constipation Methadone HCl (Methadone Hcl 20 Mg/2 Ml Oral.Conc) 80 mg PO DAILY [facility] Last Admin: 04/13/24 07:57 Dose: 80 mg Documented By: CARLOS Nicotine (Nicotine 7 Mg Patch.Td24) 7 mg TRANSDERMA DAILY [facility] Last Admin: 04/13/24 07:53 Dose: 7 mg Documented By: CARLOS Ondansetron HCl (Ondansetron Hcl 4 Mg/2 Ml Vial) 4 mg IVPUSH Q8H PRN PRN Reason: Nausea and Vomiting Oxycodone HCl (Oxycodone Hcl Immed Release 5 Mg Tablet) 5 mg PO Q6H PRN PRN Reason: Pain, Moderate(Pain Scale 4-6) Pharmacy Consult (Consult Rx Vancomycin Dosing) 1 each MISCELLANE DAILY PRN PRN Reason: Consult order Sodium Chloride (0.9 % Sodium Chloride Flush 3 Ml Syringe) 3 ml IVFLUSH QSHIFT [facility] Last Admin: 04/13/24 07:53 Dose: 3 ml Documented By: CARLOS Labs 04/11/24 10:48 04/13/24 06:07 Labs: Laboratory Results - last 24 hr 04/12/24 04/12/24 04/12/24 11:08 15:50 20:07 Hold Purple Top Estim Creat Clear Calc Estimated GFR POC Glucose 206 H 119 H 199 H Random Vancomycin 04/12/24 04/13/24 04/13/24 22:12 06:07 07:37 Hold Purple Top SEE NOTE Estim Creat Clear Calc 92.4 Estimated GFR > 60 POC Glucose 115 Random Vancomycin 17.1 Microbiology Microbiology Results: Microbiology 04/09/24 12:29 Gram Stain - Final Leg - Right Routine Culture - Final Methicillin Res Staph Aureus Assessment and Plan (1) Bilateral lower leg cellulitis: Status: Acute (2) Acute osteomyelitis: Status: Acute (3) Hypoglycemia: Status: Acute Plan 63 yo wheelchair bound male with history of diabetes, PVD s/p right BKA 09/2023, chronic pain on methadone, history of left ankle/foot osteomyelitis with hx TMA, atrial fibrillation not on anticoagulation, HTN, hepatitis C s/p treatment in 2009 admitted for further management of infected unstageable ulcer R BKA stump with bilateral cellulitis. # acute Rt BKA stump osteomyelitis r/t PVD with bilateral cellulitis and ulcers infection XR shows evidence of osteomyelitis R tibia negative cultures continue IV vancomycin (initiated 04/09) Dc Zosyn pain management p.r.n. 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 HbA1c of 6.2 hold Lantus for now (Was on 45 units BID!) POC glucose, diabetic diet Humalog on sliding scale consider PO Metformin on discharge # chronic pain disorder continue methadone-follows with [facility] # paroxysmal atrial fibrillation not on anticoagulation continue diltiazem # hypertension continue diltiazem # chronic normocytic anemia likely related to chronic disease H/H above transfusion threshold, baseline DVT prophylaxis-heparin Full code Patient requires inpatient stay overnight for management of bilateral lower extremity cellulitis with infected extremity ulcers and RLE Osteomyelitis requiring IV antibiotics. Quality Stroke Does the patient have a stroke diagnosis?: No VTE Prior VTE?: No VTE Risk Level:: Medical - moderate - high VTE Device Contraindication: Treatment Not Indicated VTE Drug Contraindication: N/A - Med Ordered
[2024-04-13 11:13] LABS: Glucose, Whole Blood 200 mg/dL (60-115)
[2024-04-13] MEDS: Insulin Lispro 100 UNIT/ML 3 ML VIAL SUBCUT ×3 (12:29→20:49)
--- NOTE | 2024-04-13 15:10 | MHC.CM.PN ---
EMR REVIEWED AND PER MD ROUNDS, PT TO HAVE PICC LINE PLACED TODAY. IT WAS ALSO NOTED THAT PT'S INSURANCE HAS TERMED AND [facility] [place] [facility] IS WORKING ON THIS PER FINANCIAL COUNSELOR. [facility] IS FOLLOWING ONCE INSURANCE HAS BEEN FIXED. KATHI, ADDICTION COUNSELOR AT [facility], IS WORKING ON GUEST DOSING WITH [facility] BUT WILL NEED TO BE NOTIFIED SOON WE HAVE A DC DATE. CM WILL CONTINUE TO FOLLOW FOR ANY CHANGE TO DC PLAN.
[2024-04-13] MEDS: 0.9 % Sodium Chloride Flush 10 ML SYRINGE 5 ML IVFLUSH ×2 (15:38→20:57)
[2024-04-13 16:48] LABS: Glucose, Whole Blood 155 mg/dL (60-115)
--- NOTE | 2024-04-13 19:00 | PC.NURSE ---
This RN assumed care 1900, Pt AOx4, laying in bed with no apparent distress. Respirations even and unlabored, lung sounds clear through out. BSx4 no pain with palpation. RBKA has foam dressing dry and intact. LTMA newly dressed with roll qauze dry/intact Pt denies pain at this time. Call rodríguez within reach.
[2024-04-13 20:08] LABS: Glucose, Whole Blood 164 mg/dL (60-115)
[2024-04-13] MEDS: Amitriptyline HCl 50 MG TABLET PO (20:49)
[2024-04-13 22:11] LABS: Vancomycin Random 17.6 mcg/mL (15-20)
[2024-04-14] VITALS (9 sets, daily range): BP systolic 142–167; BP diastolic 65–79; PULSE 64–71; RESP 16–18; TEMP 36.1–37; O2SAT 97–99
[2024-04-14 06:25] LABS: Creatinine Clr Calc Pharmacy 84.8; Estimated Glomerular Filt Rate > 60
[2024-04-14 07:54] LABS: Glucose, Whole Blood 170 mg/dL (60-115)
[2024-04-14] MEDS: Nicotine 7 MG PATCH.TD24 TRANSDERMA (08:15)
[2024-04-14] MEDS: methADONE HCl 20 MG/2 ML ORAL.CONC 80 MG PO (08:17)
[2024-04-14] MEDS: Insulin Lispro 100 UNIT/ML 3 ML VIAL SUBCUT ×4 (08:17→22:36)
[2024-04-14] MEDS: hydrALAZINE HCl 25 MG TABLET PO ×3 (08:18→22:37)
[2024-04-14] MEDS: Heparin Sodium,Porcine 5,000 UNIT/ML VIAL 5000 UNIT SUBCUT ×2 (08:18→22:35)
[2024-04-14] MEDS: dilTIAZem HCL CD 180 MG CAP.ER.24H PO (08:19)
[2024-04-14] MEDS: 0.9 % Sodium Chloride Flush 3 ML SYRINGE IVFLUSH ×2 (08:19→14:46)
[2024-04-14] MEDS: 0.9 % Sodium Chloride Flush 10 ML SYRINGE 5 ML IVFLUSH ×3 (08:20→22:37)
[2024-04-14 11:29] LABS: Glucose, Whole Blood 172 mg/dL (60-115)
[2024-04-14] MEDS: vancomycin HCL 750 MG in 0.9 % Sodium Chloride 250 ML 265 MG IV ×2 (11:32→22:49)
--- NOTE | 2024-04-14 12:41 | HO.PM.IMPN ---
Subjective Subjective Date of Service: 04/14/24 Interval History: seen and evaluated this morning Pain under fair control wounds feel better No fever or chills reported Physical Exam Vital Signs: Vital Signs: Last Vital Signs Temp 98.6 F 04/14/24 07:52 Pulse 67 04/14/24 08:19 Resp 18 04/14/24 07:52 BP 142/72 H 04/14/24 08:19 Pulse Ox 98 04/14/24 07:52 O2 Del Method Room Air 04/14/24 07:52 BMI result Body Mass Index 31.3 Const: Other: Constitutional : Awake, interactive, not in distress Neck : Normal inspection, Supple Cardiovascular : RRR, no JVP, no lower extremity edema Respiratory : good bilateral air entry, no crackles, wheezes or rhonchi Gastrointestinal: soft, lax, Normal bowel sounds, Non tender Skin : Warm, Dry, Extremities: LLE transmetatarsal amputation, RLE BKA with open wound at base of stump with no significant erythema covered with dressing Neurological : Alert & oriented x3, No focal deficit Objective Data Active Medications Acetaminophen (Acetaminophen 325 Mg Tablet) 650 mg PO Q6H PRN PRN Reason: Pain, Mild (Pain Scale 1-3) Amitriptyline HCl (Amitriptyline Hcl 50 Mg Tablet) 50 mg PO BEDTIME [facility] Last Admin: 04/13/24 20:49 Dose: 50 mg Documented By: ALISON Diltiazem HCl (Diltiazem Hcl Cd 180 Mg Cap.Er.24h) 180 mg PO DAILY [facility]; Protocol Last Admin: 04/14/24 08:19 Dose: 180 mg Documented By: CARLOS Glucose (Glucose Gel 15 Gm Gel..Gram.) 15 gm PO Q15M PRN; Protocol PRN Reason: per Hypoglycemia Standing Ord. Last Admin: 04/10/24 06:26 Dose: 15 gm Documented By: DEE Heparin Sodium (Porcine) (Heparin Sodium,Porcine 5,000 Unit/Ml Vial) 5,000 unit SUBCUT Q12H [facility] Last Admin: 04/14/24 08:18 Dose: 5,000 unit Documented By: CARLOS Hydralazine HCl (Hydralazine Hcl 25 Mg Tablet) 25 mg PO TID [facility]; Protocol Last Admin: 04/14/24 08:18 Dose: 25 mg Documented By: CARLOS Dextrose (D10) 250 mls @ 750 mls/hr IV Q15M PRN; Protocol PRN Reason: per Hypoglycemia Standing Ord. Vancomycin HCl 750 mg/ Sodium (Chloride) 265 mls @ 265 mls/hr IV Q12H [facility] Last Admin: 04/14/24 11:32 Dose: 265 mls/hr Documented By: CARLOS Insulin Human Lispro (Insulin Lispro 100 Unit/Ml 3 Ml Vial) 0 unit SUBCUT QIDACHS [facility]; Protocol Last Admin: 04/14/24 12:11 Dose: 2 unit Documented By: CARLOS Magnesium Hydroxide (Milk Of Magnesia 30 Ml Oral.Susp) 30 ml PO DAILY PRN PRN Reason: Constipation Methadone HCl (Methadone Hcl 20 Mg/2 Ml Oral.Conc) 80 mg PO DAILY [facility] Last Admin: 04/14/24 08:17 Dose: 80 mg Documented By: CARLOS Nicotine (Nicotine 7 Mg Patch.Td24) 7 mg TRANSDERMA DAILY [facility] Last Admin: 04/14/24 08:15 Dose: 7 mg Documented By: CARLOS Ondansetron HCl (Ondansetron Hcl 4 Mg/2 Ml Vial) 4 mg IVPUSH Q8H PRN PRN Reason: Nausea and Vomiting Oxycodone HCl (Oxycodone Hcl Immed Release 5 Mg Tablet) 5 mg PO Q6H PRN PRN Reason: Pain, Moderate(Pain Scale 4-6) Pharmacy Consult (Consult Rx Vancomycin Dosing) 1 each MISCELLANE DAILY PRN PRN Reason: Consult order Sodium Chloride (0.9 % Sodium Chloride Flush 3 Ml Syringe) 3 ml IVFLUSH QSHIFT [facility] Last Admin: 04/14/24 08:19 Dose: 3 ml Documented By: CARLOS Sodium Chloride (0.9 % Sodium Chloride Flush 10 Ml Syringe) 5 ml IVFLUSH TID [facility] Last Admin: 04/14/24 08:20 Dose: 5 ml Documented By: CARLOS Labs 04/11/24 10:48 04/14/24 05:49 Labs: Laboratory Results - last 24 hr 04/13/24 04/13/24 04/13/24 16:44 19:48 21:43 Hold Purple Top Estim Creat Clear Calc Estimated GFR POC Glucose 155 H 164 H Random Vancomycin 17.6 06/03/0404/14/24 04/14/24 05:49 07:50 11:13 Hold Purple Top SEE NOTE Estim Creat Clear Calc 84.8 Estimated GFR > 60 POC Glucose 170 H 172 H Random Vancomycin Assessment and Plan (1) Bilateral lower leg cellulitis: Status: Acute (2) Acute osteomyelitis: Status: Acute (3) Hypoglycemia: Status: Acute Plan 63 yo wheelchair bound male with history of diabetes, PVD s/p right BKA 09/2023, chronic pain on methadone, history of left ankle/foot osteomyelitis with hx TMA, atrial fibrillation not on anticoagulation, HTN, hepatitis C s/p treatment in 2009 admitted for further management of infected unstageable ulcer R BKA stump with bilateral cellulitis. # acute Rt BKA stump osteomyelitis r/t PVD with bilateral cellulitis and ulcers infection XR shows evidence of osteomyelitis R tibia negative cultures continue IV vancomycin (initiated 04/09) Dc Zosyn pain management p.r.n. 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 CM working on restarting it so he can be placed at SNF. Patient requires inpatient stay overnight for management of bilateral lower extremity cellulitis with infected extremity ulcers and RLE Osteomyelitis requiring IV antibiotics. Quality Stroke Does the patient have a stroke diagnosis?: No VTE Prior VTE?: No VTE Risk Level:: Medical - moderate - high VTE Device Contraindication: Treatment Not Indicated VTE Drug Contraindication: N/A - Med Ordered
--- NOTE | 2024-04-14 13:16 | MHC.CM.PN ---
CM REACHED OUT TO FINANCIAL SERVICES REGARDING REINSTATING INSURANCE. PT HAS NO NEW INFORMATION REGARDING HIS INSURANCE. CM WILL CONTINUE TO FOLLOW
[2024-04-14 16:49] LABS: Glucose, Whole Blood 173 mg/dL (60-115)
[2024-04-14 20:29] LABS: Glucose, Whole Blood 216 mg/dL (60-115)
[2024-04-14 21:24] LABS: Vancomycin Random 16.2 mcg/mL (15-20)
--- NOTE | 2024-04-14 21:36 | HE.PHANOTE ---
Re: Vanco Renal function is stable. Trough return at 16.2, patient is therapeutic. Continue dose at 750 mg Q12H, with predicted AUC 470 mg/L, and predicted trough 16.1 mg/L. Next trough 04/15 2100.
[2024-04-14] MEDS: Amitriptyline HCl 50 MG TABLET PO (22:37)
[2024-04-15] VITALS (8 sets, daily range): BP systolic 152–172; BP diastolic 70–81; PULSE 61–65; RESP 17–19; TEMP 36.2–37; O2SAT 95–98
[2024-04-15 06:04] LABS: Creatinine Clr Calc Pharmacy 96.7; Estimated Glomerular Filt Rate > 60
[2024-04-15 07:09] LABS: Glucose, Whole Blood 128 mg/dL (60-115)
[2024-04-15] MEDS: hydrALAZINE HCl 25 MG TABLET PO ×3 (08:57→20:46)
[2024-04-15] MEDS: dilTIAZem HCL CD 180 MG CAP.ER.24H PO (08:58)
[2024-04-15] MEDS: methADONE HCl 20 MG/2 ML ORAL.CONC 80 MG PO (08:58)
[2024-04-15] MEDS: Heparin Sodium,Porcine 5,000 UNIT/ML VIAL 5000 UNIT SUBCUT ×2 (08:58→19:42)
[2024-04-15] MEDS: Nicotine 7 MG PATCH.TD24 TRANSDERMA (08:58)
[2024-04-15] MEDS: 0.9 % Sodium Chloride Flush 3 ML SYRINGE IVFLUSH ×2 (08:59→22:27)
[2024-04-15] MEDS: 0.9 % Sodium Chloride Flush 10 ML SYRINGE 5 ML IVFLUSH ×3 (08:59→20:47)
--- NOTE | 2024-04-15 09:56 | P.PNIM_ITS ---
Subjective Subjective Date of Service: 04/15/24 Interval History: no complaints Physical Exam 2 Vital Signs: Vital Signs: Last Vital Signs Temp 98 F 04/15/24 06:51 Pulse 64 04/15/24 08:58 Resp 17 04/15/24 06:51 BP 152/70 H 04/15/24 08:58 Pulse Ox 98 04/15/24 06:51 O2 Del Method Room Air 04/15/24 06:51 BMI result Body Mass Index 31.3 Const: Other: Constitutional : Awake, interactive, not in distress Neck : Normal inspection, Supple Cardiovascular : RRR, no JVP, no lower extremity edema Respiratory : good bilateral air entry, no crackles, wheezes or rhonchi Gastrointestinal: soft, lax, Normal bowel sounds, Non tender Skin : Warm, Dry, Extremities: LLE transmetatarsal amputation, RLE BKA with open wound at base of stump with no significant erythema covered with dressing Neurological : Alert & oriented x3, No focal deficit Objective Data Active Medications Acetaminophen (Acetaminophen 325 Mg Tablet) 650 mg PO Q6H PRN PRN Reason: Pain, Mild (Pain Scale 1-3) Amitriptyline HCl (Amitriptyline Hcl 50 Mg Tablet) 50 mg PO BEDTIME [facility] Last Admin: 04/14/24 22:37 Dose: 50 mg Documented By: ROSY Diltiazem HCl (Diltiazem Hcl Cd 180 Mg Cap.Er.24h) 180 mg PO DAILY [facility]; Protocol Last Admin: 04/15/24 08:58 Dose: 180 mg Documented By: HÉCTOR Glucose (Glucose Gel 15 Gm Gel..Gram.) 15 gm PO Q15M PRN; Protocol PRN Reason: per Hypoglycemia Standing Ord. Last Admin: 04/10/24 06:26 Dose: 15 gm Documented By: DEE Heparin Sodium (Porcine) (Heparin Sodium,Porcine 5,000 Unit/Ml Vial) 5,000 unit SUBCUT Q12H [facility] Last Admin: 04/15/24 08:58 Dose: 5,000 unit Documented By: HÉCTOR Hydralazine HCl (Hydralazine Hcl 25 Mg Tablet) 25 mg PO TID [facility]; Protocol Last Admin: 04/15/24 08:57 Dose: 25 mg Documented By: HÉCTOR Dextrose (D10) 250 mls @ 750 mls/hr IV Q15M PRN; Protocol PRN Reason: per Hypoglycemia Standing Ord. Vancomycin HCl 750 mg/ Sodium (Chloride) 265 mls @ 265 mls/hr IV Q12H [facility] Last Infusion: 04/14/24 23:50 Dose: Infused Documented By: ROSY Insulin Human Lispro (Insulin Lispro 100 Unit/Ml 3 Ml Vial) 0 unit SUBCUT QIDACHS [facility]; Protocol Last Admin: 04/15/24 08:57 Dose: Not Given Documented By: HÉCTOR Non-Admin Reason: No Insulin Coverage Magnesium Hydroxide (Milk Of Magnesia 30 Ml Oral.Susp) 30 ml PO DAILY PRN PRN Reason: Constipation Methadone HCl (Methadone Hcl 20 Mg/2 Ml Oral.Conc) 80 mg PO DAILY [facility] Last Admin: 04/15/24 08:58 Dose: 80 mg Documented By: HÉCTOR Nicotine (Nicotine 7 Mg Patch.Td24) 7 mg TRANSDERMA DAILY [facility] Last Admin: 04/15/24 08:58 Dose: 7 mg Documented By: HÉCTOR Ondansetron HCl (Ondansetron Hcl 4 Mg/2 Ml Vial) 4 mg IVPUSH Q8H PRN PRN Reason: Nausea and Vomiting Pharmacy Consult (Consult Rx Vancomycin Dosing) 1 each MISCELLANE DAILY PRN PRN Reason: Consult order Sodium Chloride (0.9 % Sodium Chloride Flush 3 Ml Syringe) 3 ml IVFLUSH QSHIFT [facility] Last Admin: 04/15/24 08:59 Dose: 3 ml Documented By: HÉCTOR Sodium Chloride (0.9 % Sodium Chloride Flush 10 Ml Syringe) 5 ml IVFLUSH TID [facility] Last Admin: 04/15/24 08:59 Dose: 5 ml Documented By: HÉCTOR Labs 04/11/24 10:48 04/15/24 05:07 Labs: Laboratory Results - last 24 hr 04/14/24 04/14/24 04/14/24 11:13 16:29 19:52 Hold Purple Top Estim Creat Clear Calc Estimated GFR POC Glucose 172 H 173 H 216 H Random Vancomycin 04/14/24 04/15/24 04/15/24 20:56 05:07 07:01 Hold Purple Top SEE NOTE Estim Creat Clear Calc 96.7 Estimated GFR > 60 POC Glucose 128 H Random Vancomycin 16.2 Microbiology Microbiology Results: Microbiology 04/09/24 12:29 Blood Culture - Final Blood - Venous No growth after 5 days. 04/09/24 12:22 Blood Culture - Final Blood - Venous No growth after 5 days. Assessment and Plan (1) Bilateral lower leg cellulitis: Status: Acute (2) Acute osteomyelitis: Status: Acute (3) Hypoglycemia: Status: Acute Plan 63 yo wheelchair bound male with history of diabetes, PVD s/p right BKA 09/2023, chronic pain on methadone, history of left ankle/foot osteomyelitis with hx TMA, atrial fibrillation not on anticoagulation, HTN, hepatitis C s/p treatment in 2009 admitted for further management of infected unstageable ulcer R BKA stump with bilateral cellulitis. acute Rt BKA stump osteomyelitis r/t PVD with bilateral cellulitis and ulcers infection XR shows evidence of osteomyelitis R tibia negative cultures continue IV vancomycin (initiated 04/09) Dc Zosyn pain management p.r.n. general surgery rec local care Infectious Disease rec 6 weeks IV Ertapenem (end may 20, 2024) follow Vanco trough PICC in place Multiple superficial stage 2 non pressure ulcers left lower leg with cellulitis treat with antibiotics and wound care nurse insulin-dependent type 2 diabetes with hypoglycemia recurrent episodes on admission no resolved HbA1c of 6.2 hold Lantus for now (Was on 45 units BID!) POC glucose, diabetic diet Humalog on sliding scale consider PO Metformin on discharge chronic pain disorder continue methadone-follows with [facility] paroxysmal atrial fibrillation not on anticoagulation continue diltiazem hypertension continue diltiazem chronic normocytic anemia likely related to chronic disease H/H above transfusion threshold, baseline DVT prophylaxis-heparin Full code DISPO: Patient lose insurance 04/09. CM working on restarting it so he can be placed at SNF. Patient requires inpatient stay overnight for management of bilateral lower extremity cellulitis with infected extremity ulcers and RLE Osteomyelitis requiring IV antibiotics. Quality Stroke Does the patient have a stroke diagnosis?: No VTE Prior VTE?: No VTE Risk Level:: Medical - moderate - high VTE Device Contraindication: Treatment Not Indicated VTE Drug Contraindication: N/A - Med Ordered
[2024-04-15 11:05] LABS: Glucose, Whole Blood 138 mg/dL (60-115)
[2024-04-15] MEDS: vancomycin HCL 750 MG in 0.9 % Sodium Chloride 250 ML 265 MG IV ×2 (12:54→22:27)
--- NOTE | 2024-04-15 14:05 | MHC.CM.PN ---
CM CONTINUES TO FOLLOW UP ON INSURANCE SITUATION. PER F.S, DAUGHTER WILL TRY TO GET INFORMATION FROM [employer]IAL [employer] TO WHY MH WAS TERMINATED. MH STILL COMING UP INACTIVE PER F.S. [facility] U[facility], CONTINUING TO FOLLOW FOR BED OFFER WHEN INSURANCE REINSTATED.
[2024-04-15 16:28] LABS: Glucose, Whole Blood 184 mg/dL (60-115)
[2024-04-15] MEDS: Insulin Lispro 100 UNIT/ML 3 ML VIAL SUBCUT ×2 (17:05→20:47)
[2024-04-15 19:53] LABS: Glucose, Whole Blood 169 mg/dL (60-115)
[2024-04-15] MEDS: Amitriptyline HCl 50 MG TABLET PO (20:45)
[2024-04-15 21:19] LABS: Vancomycin Random 17.4 mcg/mL (15-20)
[2024-04-16] VITALS (10 sets, daily range): BP systolic 134–178; BP diastolic 67–85; PULSE 52–88; RESP 12–18; TEMP 36.1–36.6; O2SAT 97–99
[2024-04-16] MEDS: Acetaminophen 325 MG TABLET 650 MG PO (04:04)
[2024-04-16 06:37] LABS: Creatinine Clr Calc Pharmacy 95.6; Estimated Glomerular Filt Rate > 60
[2024-04-16 07:35] LABS: Glucose, Whole Blood 119 mg/dL (60-115)
--- NOTE | 2024-04-16 08:46 | P.PNIM_ITS ---
Subjective Subjective Date of Service: 04/16/24 Interval History: no complaints Physical Exam 2 Vital Signs: Vital Signs: Last Vital Signs Temp 97.8 F 04/16/24 07:32 Pulse 52 04/16/24 07:32 Resp 12 04/16/24 07:32 BP 160/74 H 04/16/24 07:32 Pulse Ox 98 04/16/24 07:32 O2 Del Method Room Air 04/16/24 07:32 BMI result Body Mass Index 31.3 Const: Other: Constitutional : Awake, interactive, not in distress Neck : Normal inspection, Supple Cardiovascular : RRR, no JVP, no lower extremity edema Respiratory : good bilateral air entry, no crackles, wheezes or rhonchi Gastrointestinal: soft, lax, Normal bowel sounds, Non tender Skin : Warm, Dry, Extremities: LLE transmetatarsal amputation, RLE BKA with open wound at base of stump with no significant erythema covered with dressing Neurological : Alert & oriented x3, No focal deficit Objective Data Active Medications Acetaminophen (Acetaminophen 325 Mg Tablet) 650 mg PO Q6H PRN PRN Reason: Pain, Mild (Pain Scale 1-3) Last Admin: 04/16/24 04:04 Dose: 650 mg Documented By: BERNICE Amitriptyline HCl (Amitriptyline Hcl 50 Mg Tablet) 50 mg PO BEDTIME [facility] [place] Last Admin: 04/15/24 20:45 Dose: 50 mg Documented By: BERNICE Diltiazem HCl (Diltiazem Hcl Cd 180 Mg Cap.Er.24h) 180 mg PO DAILY [facility] [place]; Protocol Last Admin: 04/15/24 08:58 Dose: 180 mg Documented By: HÉCTOR Glucose (Glucose Gel 15 Gm Gel..Gram.) 15 gm PO Q15M PRN; Protocol PRN Reason: per Hypoglycemia Standing Ord. Last Admin: 04/10/24 06:26 Dose: 15 gm Documented By: DEE Heparin Sodium (Porcine) (Heparin Sodium,Porcine 5,000 Unit/Ml Vial) 5,000 unit SUBCUT Q12H [facility] [place] Last Admin: 04/15/24 19:42 Dose: 5,000 unit Documented By: BERNICE Hydralazine HCl (Hydralazine Hcl 25 Mg Tablet) 25 mg PO TID [facility] [place]; Protocol Last Admin: 04/15/24 20:46 Dose: 25 mg Documented By: BERNICE Dextrose (D10) 250 mls @ 750 mls/hr IV Q15M PRN; Protocol PRN Reason: per Hypoglycemia Standing Ord. Vancomycin HCl 750 mg/ Sodium (Chloride) 265 mls @ 265 mls/hr IV Q12H [facility] [place] Last Infusion: 04/15/24 23:27 Dose: Infused Documented By: BERNICE Insulin Human Lispro (Insulin Lispro 100 Unit/Ml 3 Ml Vial) 0 unit SUBCUT QIDACHS [facility] [place]; Protocol Last Admin: 04/16/24 08:37 Dose: Not Given Documented By: HÉCTOR Non-Admin Reason: No Insulin Coverage Magnesium Hydroxide (Milk Of Magnesia 30 Ml Oral.Susp) 30 ml PO DAILY PRN PRN Reason: Constipation Methadone HCl (Methadone Hcl 20 Mg/2 Ml Oral.Conc) 80 mg PO DAILY [facility] [place] Last Admin: 04/15/24 08:58 Dose: 80 mg Documented By: HÉCTOR Nicotine (Nicotine 7 Mg Patch.Td24) 7 mg TRANSDERMA DAILY [facility] [place] Last Admin: 04/15/24 08:58 Dose: 7 mg Documented By: HÉCTOR Ondansetron HCl (Ondansetron Hcl 4 Mg/2 Ml Vial) 4 mg IVPUSH Q8H PRN PRN Reason: Nausea and Vomiting Pharmacy Consult (Consult Rx Vancomycin Dosing) 1 each MISCELLANE DAILY PRN PRN Reason: Consult order Sodium Chloride (0.9 % Sodium Chloride Flush 3 Ml Syringe) 3 ml IVFLUSH QSHIFT [facility] [place] Last Admin: 04/15/24 22:27 Dose: 3 ml Documented By: BERNICE Sodium Chloride (0.9 % Sodium Chloride Flush 10 Ml Syringe) 5 ml IVFLUSH TID [facility] [place] Last Admin: 04/15/24 20:47 Dose: 5 ml Documented By: BERNICE Labs 04/11/24 10:48 04/16/24 05:40 Labs: Laboratory Results - last 24 hr 04/15/24 04/15/24 04/15/24 11:01 16:24 19:49 Estim Creat Clear Calc Estimated GFR POC Glucose 138 H 184 H 169 H Random Vancomycin 04/15/24 04/16/24 04/16/24 20:51 05:40 07:24 Estim Creat Clear Calc 95.6 Estimated GFR > 60 POC Glucose 119 H Random Vancomycin 17.4 Assessment and Plan (1) Bilateral lower leg cellulitis: Status: Acute (2) Acute osteomyelitis: Status: Acute (3) Hypoglycemia: Status: Acute Plan 63 yo wheelchair bound male with history of diabetes, PVD s/p right BKA 09/2023, chronic pain on methadone, history of left ankle/foot osteomyelitis with hx TMA, atrial fibrillation not on anticoagulation, HTN, hepatitis C s/p treatment in 2009 admitted for further management of infected unstageable ulcer R BKA stump with bilateral cellulitis. acute Rt BKA stump osteomyelitis r/t PVD with bilateral cellulitis and ulcers infection XR shows evidence of osteomyelitis R tibia negative cultures continue IV vancomycin (initiated 04/09) Dc Zosyn pain management p.r.n. general surgery rec local care Infectious Disease rec 6 weeks IV Ertapenem (end may 20, 2024) follow Vanco trough PICC in place Multiple superficial stage 2 non pressure ulcers left lower leg with cellulitis treat with antibiotics and wound care nurse insulin-dependent type 2 diabetes with hypoglycemia recurrent episodes on admission no resolved HbA1c of 6.2 hold Lantus for now (Was on 45 units BID!) POC glucose, diabetic diet Humalog on sliding scale consider PO Metformin on discharge chronic pain disorder continue methadone-follows with [facility] paroxysmal atrial fibrillation not on anticoagulation continue diltiazem hypertension continue diltiazem chronic normocytic anemia likely related to chronic disease H/H above transfusion threshold, baseline DVT prophylaxis-heparin Full code DISPO: Patient lose insurance 04/09. CM working on restarting it so he can be placed at SNF. Patient requires inpatient stay overnight for management of bilateral lower extremity cellulitis with infected extremity ulcers and RLE Osteomyelitis requiring IV antibiotics. Quality Stroke Does the patient have a stroke diagnosis?: No VTE Prior VTE?: No VTE Risk Level:: Medical - moderate - high VTE Device Contraindication: Treatment Not Indicated VTE Drug Contraindication: N/A - Med Ordered
[2024-04-16] MEDS: hydrALAZINE HCl 25 MG TABLET PO ×3 (09:16→20:35)
[2024-04-16] MEDS: dilTIAZem HCL CD 180 MG CAP.ER.24H PO (09:17)
[2024-04-16] MEDS: Heparin Sodium,Porcine 5,000 UNIT/ML VIAL 5000 UNIT SUBCUT ×2 (09:18→19:51)
[2024-04-16] MEDS: 0.9 % Sodium Chloride Flush 10 ML SYRINGE 5 ML IVFLUSH ×3 (09:22→20:35)
[2024-04-16] MEDS: methADONE HCl 20 MG/2 ML ORAL.CONC 80 MG PO (10:13)
[2024-04-16 11:25] LABS: Glucose, Whole Blood 215 mg/dL (60-115)
[2024-04-16] MEDS: Insulin Lispro 100 UNIT/ML 3 ML VIAL SUBCUT ×3 (11:36→20:35)
[2024-04-16] MEDS: vancomycin HCL 750 MG in 0.9 % Sodium Chloride 250 ML 265 MG IV ×2 (11:38→22:42)
[2024-04-16] MEDS: Nicotine 7 MG PATCH.TD24 TRANSDERMA (15:46)
--- NOTE | 2024-04-16 16:08 | MHC.CM.PN ---
CM COMMUNICATED WITH [employer] REGARDING INSURANCE RE-INSTATEMENT. PER [employer] THEY ARE AWAITING DAUGHTER TO CALL S.S., DAUGHTER STATES SHE IS WORKING ON THIS TODAY. MAGUI CONTINUES TO FOLLOW.
[2024-04-16 16:42] LABS: Glucose, Whole Blood 177 mg/dL (60-115)
[2024-04-16 19:36] LABS: Glucose, Whole Blood 252 mg/dL (60-115)
[2024-04-16] MEDS: Amitriptyline HCl 50 MG TABLET PO (20:39)
[2024-04-16 21:41] LABS: Vancomycin Random 18.5 mcg/mL (15-20)
--- NOTE | 2024-04-16 21:48 | HE.PHANOTE ---
Re: Vanco Renal function is stable. Trough return at 18.5, patient is therapeutic. Continue dose at 750 mg Q12H, with predicted AUC 439 mg/L, and predicted trough 15 mg/L. Next trough 04/17 2100.
[2024-04-16] MEDS: 0.9 % Sodium Chloride Flush 3 ML SYRINGE IVFLUSH (22:42)
[2024-04-17] VITALS (7 sets, daily range): BP systolic 140–165; BP diastolic 68–78; PULSE 61–66; RESP 14–18; TEMP 36.1–36.6; O2SAT 96–99
[2024-04-17] MEDS: Acetaminophen 325 MG TABLET 650 MG PO (03:28)
[2024-04-17 06:16] LABS: Creatinine Clr Calc Pharmacy 80.6; Estimated Glomerular Filt Rate > 60
[2024-04-17 07:21] LABS: Glucose, Whole Blood 164 mg/dL (60-115)
[2024-04-17] MEDS: Insulin Lispro 100 UNIT/ML 3 ML VIAL SUBCUT ×4 (07:41→21:30)
[2024-04-17] MEDS: Heparin Sodium,Porcine 5,000 UNIT/ML VIAL 5000 UNIT SUBCUT ×2 (07:44→21:29)
[2024-04-17] MEDS: dilTIAZem HCL CD 180 MG CAP.ER.24H PO (08:48)
[2024-04-17] MEDS: hydrALAZINE HCl 50 MG TABLET PO ×3 (08:49→21:32)
[2024-04-17] MEDS: methADONE HCl 20 MG/2 ML ORAL.CONC 80 MG PO (08:49)
[2024-04-17] MEDS: 0.9 % Sodium Chloride Flush 3 ML SYRINGE IVFLUSH ×2 (08:59→15:28)
[2024-04-17] MEDS: 0.9 % Sodium Chloride Flush 10 ML SYRINGE 5 ML IVFLUSH ×3 (08:59→21:30)
--- NOTE | 2024-04-17 09:10 | P.PNIM_ITS ---
Subjective Subjective Date of Service: 04/17/24 Interval History: no complaints Physical Exam 2 Vital Signs: Vital Signs: Last Vital Signs Temp 96.9 F 04/17/24 07:32 Pulse 66 04/17/24 08:48 Resp 16 04/17/24 07:32 BP 140/68 H 04/17/24 08:49 Pulse Ox 99 04/17/24 07:32 O2 Del Method Room Air 04/17/24 07:32 BMI result Body Mass Index 31.3 Const: Other: Constitutional : Awake, interactive, not in distress Neck : Normal inspection, Supple Cardiovascular : RRR, no JVP, no lower extremity edema Respiratory : good bilateral air entry, no crackles, wheezes or rhonchi Gastrointestinal: soft, lax, Normal bowel sounds, Non tender Skin : Warm, Dry, Extremities: LLE transmetatarsal amputation, RLE BKA with open wound at base of stump with no significant erythema covered with dressing Neurological : Alert & oriented x3, No focal deficit Objective Data Active Medications Acetaminophen (Acetaminophen 325 Mg Tablet) 650 mg PO Q6H PRN PRN Reason: Pain, Mild (Pain Scale 1-3) Last Admin: 04/17/24 03:28 Dose: 650 mg Documented By: BERNICE Amitriptyline HCl (Amitriptyline Hcl 50 Mg Tablet) 50 mg PO BEDTIME [facility] Last Admin: 04/16/24 20:39 Dose: 50 mg Documented By: BERNICE Diltiazem HCl (Diltiazem Hcl Cd 180 Mg Cap.Er.24h) 180 mg PO DAILY [facility]; Protocol Last Admin: 04/17/24 08:48 Dose: 180 mg Documented By: ALEM Glucose (Glucose Gel 15 Gm Gel..Gram.) 15 gm PO Q15M PRN; Protocol PRN Reason: per Hypoglycemia Standing Ord. Last Admin: 04/10/24 06:26 Dose: 15 gm Documented By: DEE Heparin Sodium (Porcine) (Heparin Sodium,Porcine 5,000 Unit/Ml Vial) 5,000 unit SUBCUT Q12H [facility] Last Admin: 04/17/24 07:44 Dose: 5,000 unit Documented By: ALEM Hydralazine HCl (Hydralazine Hcl 50 Mg Tablet) 50 mg PO TID [facility]; Protocol Last Admin: 04/17/24 08:49 Dose: 50 mg Documented By: ALEM Dextrose (D10) 250 mls @ 750 mls/hr IV Q15M PRN; Protocol PRN Reason: per Hypoglycemia Standing Ord. Vancomycin HCl 750 mg/ Sodium (Chloride) 265 mls @ 265 mls/hr IV Q12H [facility] Last Infusion: 04/16/24 23:42 Dose: Infused Documented By: BERNICE Insulin Human Lispro (Insulin Lispro 100 Unit/Ml 3 Ml Vial) 0 unit SUBCUT QIDACHS [facility]; Protocol Last Admin: 04/17/24 07:41 Dose: 2 unit Documented By: ALEM Magnesium Hydroxide (Milk Of Magnesia 30 Ml Oral.Susp) 30 ml PO DAILY PRN PRN Reason: Constipation Methadone HCl (Methadone Hcl 20 Mg/2 Ml Oral.Conc) 80 mg PO DAILY [facility] Last Admin: 04/17/24 08:49 Dose: 80 mg Documented By: ALEM Nicotine (Nicotine 7 Mg Patch.Td24) 7 mg TRANSDERMA DAILY [facility] Last Admin: 04/17/24 08:55 Dose: Not Given Documented By: ALEM Non-Admin Reason: Patient Refused Ondansetron HCl (Ondansetron Hcl 4 Mg/2 Ml Vial) 4 mg IVPUSH Q8H PRN PRN Reason: Nausea and Vomiting Pharmacy Consult (Consult Rx Vancomycin Dosing) 1 each MISCELLANE DAILY PRN PRN Reason: Consult order Sodium Chloride (0.9 % Sodium Chloride Flush 3 Ml Syringe) 3 ml IVFLUSH QSHIFT [facility] Last Admin: 04/17/24 08:59 Dose: 3 ml Documented By: ADILENE Sodium Chloride (0.9 % Sodium Chloride Flush 10 Ml Syringe) 5 ml IVFLUSH TID [facility] Last Admin: 04/17/24 08:59 Dose: 5 ml Documented By: ADILENE Labs 04/11/24 10:48 04/17/24 05:36 Labs: Laboratory Results - last 24 hr 04/16/24 04/16/24 04/16/24 11:22 16:38 19:31 Hold Purple Top Estim Creat Clear Calc Estimated GFR POC Glucose 215 H 177 H 252 H Random Vancomycin 04/16/24 04/17/24 04/17/24 21:07 05:36 07:12 Hold Purple Top SEE NOTE Estim Creat Clear Calc 80.6 Estimated GFR > 60 POC Glucose 164 H Random Vancomycin 18.5 Assessment and Plan (1) Bilateral lower leg cellulitis: Status: Acute (2) Acute osteomyelitis: Status: Acute (3) Hypoglycemia: Status: Acute Plan 63 yo wheelchair bound male with history of diabetes, PVD s/p right BKA 09/2023, chronic pain on methadone, history of left ankle/foot osteomyelitis with hx TMA, atrial fibrillation not on anticoagulation, HTN, hepatitis C s/p treatment in 2009 admitted for further management of infected unstageable ulcer R BKA stump with bilateral cellulitis. acute Rt BKA stump osteomyelitis r/t PVD with bilateral cellulitis and ulcers infection XR shows evidence of osteomyelitis R tibia negative cultures continue IV vancomycin (initiated 04/09) Dc Zosyn pain management p.r.n. general surgery rec local care Infectious Disease rec 6 weeks IV Ertapenem (end may 20, 2024) follow Vanco trough PICC in place Multiple superficial stage 2 non pressure ulcers left lower leg with cellulitis treat with antibiotics and wound care nurse insulin-dependent type 2 diabetes with hypoglycemia recurrent episodes on admission no resolved HbA1c of 6.2 hold Lantus for now (Was on 45 units BID!) POC glucose, diabetic diet Humalog on sliding scale consider PO Metformin on discharge chronic pain disorder continue methadone-follows with [facility] paroxysmal atrial fibrillation not on anticoagulation continue diltiazem hypertension continue diltiazem chronic normocytic anemia likely related to chronic disease H/H above transfusion threshold, baseline DVT prophylaxis-heparin Full code DISPO: Patient lose insurance 04/09. CM working on restarting it so he can be placed at SNF. Patient requires inpatient stay overnight for management of bilateral lower extremity cellulitis with infected extremity ulcers and RLE Osteomyelitis requiring IV antibiotics. Quality Stroke Does the patient have a stroke diagnosis?: No VTE Prior VTE?: No VTE Risk Level:: Medical - moderate - high VTE Device Contraindication: Treatment Not Indicated VTE Drug Contraindication: N/A - Med Ordered
[2024-04-17] MEDS: vancomycin HCL 500 MG in 0.9 % Sodium Chloride 100 ML 110 MG IV (10:52)
[2024-04-17 11:15] LABS: Glucose, Whole Blood 245 mg/dL (60-115)
--- NOTE | 2024-04-17 12:49 | MHC.CM.PN ---
EMR REVIEWED. PT IS WITHOUT INSURANCE. THIS CM SPOKE WITH DAUGHTER SABRINA DIRECTLY WHO WILL BE COMING IN THIS AFTERNOON TO CALL [employer]IAL SEC[employer]ITY WITH HER FATHER TO DETERMINE WHY MH WAS TERMINATED. CM WILL CONTINUE TO FOLLOW FOR ANY CHANGE IN DC PLAN.
[2024-04-17 16:17] LABS: Glucose, Whole Blood 188 mg/dL (60-115)
[2024-04-17 20:24] LABS: Glucose, Whole Blood 198 mg/dL (60-115)
[2024-04-17 21:28] LABS: Vancomycin Random 17.5 mcg/mL (15-20)
[2024-04-17] MEDS: Amitriptyline HCl 50 MG TABLET PO (21:32)
[2024-04-17] MEDS: vancomycin HCL 750 MG in 0.9 % Sodium Chloride 250 ML 265 MG IV (23:25)
[2024-04-18] VITALS (7 sets, daily range): BP systolic 154–164; BP diastolic 72–76; PULSE 60–65; RESP 13–18; TEMP 36.1; O2SAT 97–99
[2024-04-18 06:01] LABS: Creatinine Clr Calc Pharmacy 79.1; Estimated Glomerular Filt Rate > 60
[2024-04-18 07:59] LABS: Glucose, Whole Blood 184 mg/dL (60-115)
[2024-04-18] MEDS: Nicotine 7 MG PATCH.TD24 TRANSDERMA (08:39)
[2024-04-18] MEDS: Heparin Sodium,Porcine 5,000 UNIT/ML VIAL 5000 UNIT SUBCUT ×2 (08:39→21:51)
[2024-04-18] MEDS: Insulin Lispro 100 UNIT/ML 3 ML VIAL SUBCUT ×4 (08:39→21:51)
[2024-04-18] MEDS: methADONE HCl 20 MG/2 ML ORAL.CONC 80 MG PO (08:39)
[2024-04-18] MEDS: hydrALAZINE HCl 50 MG TABLET PO ×3 (08:40→21:51)
[2024-04-18] MEDS: 0.9 % Sodium Chloride Flush 10 ML SYRINGE 5 ML IVFLUSH ×3 (08:40→21:52)
[2024-04-18] MEDS: dilTIAZem HCL CD 180 MG CAP.ER.24H PO (08:40)
[2024-04-18] MEDS: 0.9 % Sodium Chloride Flush 3 ML SYRINGE IVFLUSH ×2 (08:40→15:53)
--- NOTE | 2024-04-18 10:28 | P.PNIM_ITS ---
Subjective Subjective Date of Service: 04/18/24 Interval History: no complaints Physical Exam 2 Vital Signs: Vital Signs: Last Vital Signs Temp 96.9 F 04/18/24 08:00 Pulse 60 04/18/24 08:40 Resp 13 04/18/24 08:00 BP 164/75 H 04/18/24 08:40 Pulse Ox 99 04/18/24 08:00 O2 Del Method Room Air 04/18/24 08:00 BMI result Body Mass Index 31.3 Const: Other: Constitutional : Awake, interactive, not in distress Neck : Normal inspection, Supple Cardiovascular : RRR, no JVP, no lower extremity edema Respiratory : good bilateral air entry, no crackles, wheezes or rhonchi Gastrointestinal: soft, lax, Normal bowel sounds, Non tender Skin : Warm, Dry, Extremities: LLE transmetatarsal amputation, RLE BKA with open wound at base of stump with no significant erythema covered with dressing Neurological : Alert & oriented x3, No focal deficit Objective Data Active Medications Acetaminophen (Acetaminophen 325 Mg Tablet) 650 mg PO Q6H PRN PRN Reason: Pain, Mild (Pain Scale 1-3) Last Admin: 04/17/24 03:28 Dose: 650 mg Documented By: BERNICE Amitriptyline HCl (Amitriptyline Hcl 50 Mg Tablet) 50 mg PO BEDTIME [facility] Last Admin: 04/17/24 21:32 Dose: 50 mg Documented By: ROSY Diltiazem HCl (Diltiazem Hcl Cd 180 Mg Cap.Er.24h) 180 mg PO DAILY [facility]; Protocol Last Admin: 04/18/24 08:40 Dose: 180 mg Documented By: CLEMENT Glucose (Glucose Gel 15 Gm Gel..Gram.) 15 gm PO Q15M PRN; Protocol PRN Reason: per Hypoglycemia Standing Ord. Last Admin: 04/10/24 06:26 Dose: 15 gm Documented By: DEE Heparin Sodium (Porcine) (Heparin Sodium,Porcine 5,000 Unit/Ml Vial) 5,000 unit SUBCUT Q12H [facility] Last Admin: 04/18/24 08:39 Dose: 5,000 unit Documented By: CLEMENT Hydralazine HCl (Hydralazine Hcl 50 Mg Tablet) 50 mg PO TID [facility]; Protocol Last Admin: 04/18/24 08:40 Dose: 50 mg Documented By: CLEMENT Dextrose (D10) 250 mls @ 750 mls/hr IV Q15M PRN; Protocol PRN Reason: per Hypoglycemia Standing Ord. Vancomycin HCl 750 mg/ Sodium (Chloride) 265 mls @ 265 mls/hr IV Q12H [facility] Last Infusion: 04/18/24 00:39 Dose: Infused Documented By: ROSY Insulin Human Lispro (Insulin Lispro 100 Unit/Ml 3 Ml Vial) 0 unit SUBCUT QIDACHS [facility]; Protocol Last Admin: 04/18/24 08:39 Dose: 2 unit Documented By: CLEMENT Magnesium Hydroxide (Milk Of Magnesia 30 Ml Oral.Susp) 30 ml PO DAILY PRN PRN Reason: Constipation Methadone HCl (Methadone Hcl 20 Mg/2 Ml Oral.Conc) 80 mg PO DAILY [facility] [place] Last Admin: 04/18/24 08:39 Dose: 80 mg Documented By: CLEMENT Nicotine (Nicotine 7 Mg Patch.Td24) 7 mg TRANSDERMA DAILY [facility] Last Admin: 04/18/24 08:39 Dose: 7 mg Documented By: CLEMENT Ondansetron HCl (Ondansetron Hcl 4 Mg/2 Ml Vial) 4 mg IVPUSH Q8H PRN PRN Reason: Nausea and Vomiting Pharmacy Consult (Consult Rx Vancomycin Dosing) 1 each MISCELLANE DAILY PRN PRN Reason: Consult order Sodium Chloride (0.9 % Sodium Chloride Flush 3 Ml Syringe) 3 ml IVFLUSH QSHIFT [facility] Last Admin: 04/18/24 08:40 Dose: 3 ml Documented By: CLEMENT Sodium Chloride (0.9 % Sodium Chloride Flush 10 Ml Syringe) 5 ml IVFLUSH TID [facility] Last Admin: 04/18/24 08:40 Dose: 5 ml Documented By: CLEMENT Labs 04/11/24 10:48 04/18/24 05:36 Labs: Laboratory Results - last 24 hr 04/17/24 04/17/24 04/17/24 11:11 16:13 20:17 Hold Purple Top Estim Creat Clear Calc Estimated GFR POC Glucose 245 H 188 H 198 H Random Vancomycin 04/17/24 04/18/24 04/18/24 20:59 05:36 07:53 Hold Purple Top SEE NOTE Estim Creat Clear Calc 79.1 Estimated GFR > 60 POC Glucose 184 H Random Vancomycin 17.5 Assessment and Plan (1) Bilateral lower leg cellulitis: Status: Acute (2) Acute osteomyelitis: Status: Acute (3) Hypoglycemia: Status: Acute Plan 63 yo wheelchair bound male with history of diabetes, PVD s/p right BKA 09/2023, chronic pain on methadone, history of left ankle/foot osteomyelitis with hx TMA, atrial fibrillation not on anticoagulation, HTN, hepatitis C s/p treatment in 2009 admitted for further management of infected unstageable ulcer R BKA stump with bilateral cellulitis. acute Rt BKA stump osteomyelitis r/t PVD with bilateral cellulitis and ulcers infection XR shows evidence of osteomyelitis R tibia negative cultures continue IV vancomycin (initiated 04/09) Dc Zosyn pain management p.r.n. general surgery rec local care Infectious Disease rec 6 weeks IV Ertapenem (end may 20, 2024) follow Vanco trough PICC in place Multiple superficial stage 2 non pressure ulcers left lower leg with cellulitis treat with antibiotics and wound care nurse insulin-dependent type 2 diabetes with hypoglycemia recurrent episodes on admission no resolved HbA1c of 6.2 hold Lantus for now (Was on 45 units BID!) POC glucose, diabetic diet Humalog on sliding scale consider PO Metformin on discharge chronic pain disorder continue methadone-follows with [facility] paroxysmal atrial fibrillation not on anticoagulation continue diltiazem hypertension continue diltiazem chronic normocytic anemia likely related to chronic disease H/H above transfusion threshold, baseline DVT prophylaxis-heparin Full code DISPO: Patient lose insurance 04/09. CM working on restarting it so he can be placed at SNF. Patient requires inpatient stay overnight for management of bilateral lower extremity cellulitis with infected extremity ulcers and RLE Osteomyelitis requiring IV antibiotics. Quality Stroke Does the patient have a stroke diagnosis?: No VTE Prior VTE?: No VTE Risk Level:: Medical - moderate - high VTE Device Contraindication: Treatment Not Indicated VTE Drug Contraindication: N/A - Med Ordered
[2024-04-18] MEDS: vancomycin HCL 750 MG in 0.9 % Sodium Chloride 250 ML 265 MG IV (11:31)
[2024-04-18 11:34] LABS: Glucose, Whole Blood 275 mg/dL (60-115)
[2024-04-18 16:53] LABS: Glucose, Whole Blood 187 mg/dL (60-115)
[2024-04-18 20:54] LABS: Glucose, Whole Blood 239 mg/dL (60-115)
[2024-04-18 21:33] LABS: Vancomycin Random 20.5 mcg/mL (15-20)
--- NOTE | 2024-04-18 21:39 | HE.PHANOTE ---
RE: vanco Patient's creatinine has increased, level on 04/18 came back at 20.5. Changed dose to 1500mg Q24H to start tomorrow, predicted AUC of 528mg/L, trough of 16.1mg/L. Next level to be drawn 04/20 @0900
[2024-04-18] MEDS: Amitriptyline HCl 50 MG TABLET PO (21:51)
[2024-04-19] VITALS (7 sets, daily range): BP systolic 146–175; BP diastolic 60–82; PULSE 58–73; RESP 12–18; TEMP 36–36.4; O2SAT 96–99
[2024-04-19 06:52] LABS: Creatinine Clr Calc Pharmacy 81.4; Estimated Glomerular Filt Rate > 60
[2024-04-19 08:35] LABS: Glucose, Whole Blood 181 mg/dL (60-115)
--- NOTE | 2024-04-19 08:44 | HO.PM.IMPN ---
Subjective Subjective Date of Service: 04/19/24 Interval History: no complaints Physical Exam Vital Signs: Vital Signs: Last Vital Signs Temp 96.9 F 04/19/24 08:10 Pulse 73 04/19/24 08:10 Resp 14 04/19/24 08:10 BP 169/79 H 04/19/24 08:10 Pulse Ox 99 04/19/24 08:10 O2 Del Method Room Air 04/19/24 08:10 BMI result Body Mass Index 31.3 Const: Other: Constitutional : Awake, interactive, not in distress Neck : Normal inspection, Supple Cardiovascular : RRR, no JVP, no lower extremity edema Respiratory : good bilateral air entry, no crackles, wheezes or rhonchi Gastrointestinal: soft, lax, Normal bowel sounds, Non tender Skin : Warm, Dry, Extremities: LLE transmetatarsal amputation, RLE BKA with open wound at base of stump with no significant erythema covered with dressing Neurological : Alert & oriented x3, No focal deficit Objective Data Active Medications Acetaminophen (Acetaminophen 325 Mg Tablet) 650 mg PO Q6H PRN PRN Reason: Pain, Mild (Pain Scale 1-3) Last Admin: 04/17/24 03:28 Dose: 650 mg Documented By: BERNICE Amitriptyline HCl (Amitriptyline Hcl 50 Mg Tablet) 50 mg PO BEDTIME [facility] Last Admin: 04/18/24 21:51 Dose: 50 mg Documented By: ROSY Diltiazem HCl (Diltiazem Hcl Cd 180 Mg Cap.Er.24h) 180 mg PO DAILY [facility]; Protocol Last Admin: 04/18/24 08:40 Dose: 180 mg Documented By: CLEMENT Glucose (Glucose Gel 15 Gm Gel..Gram.) 15 gm PO Q15M PRN; Protocol PRN Reason: per Hypoglycemia Standing Ord. Last Admin: 04/10/24 06:26 Dose: 15 gm Documented By: DEE Heparin Sodium (Porcine) (Heparin Sodium,Porcine 5,000 Unit/Ml Vial) 5,000 unit SUBCUT Q12H [facility] Last Admin: 04/18/24 21:51 Dose: 5,000 unit Documented By: ROSY Hydralazine HCl (Hydralazine Hcl 50 Mg Tablet) 50 mg PO TID [facility]; Protocol Last Admin: 04/18/24 21:51 Dose: 50 mg Documented By: ROSY Dextrose (D10) 250 mls @ 750 mls/hr IV Q15M PRN; Protocol PRN Reason: per Hypoglycemia Standing Ord. Vancomycin HCl 1,500 mg/ (Sodium Chloride) 500 mls @ 333.333 mls/hr IV Q24H [facility] Insulin Human Lispro (Insulin Lispro 100 Unit/Ml 3 Ml Vial) 0 unit SUBCUT QIDACHS [facility]; Protocol Last Admin: 04/18/24 21:51 Dose: 4 unit Documented By: ROSY Magnesium Hydroxide (Milk Of Magnesia 30 Ml Oral.Susp) 30 ml PO DAILY PRN PRN Reason: Constipation Methadone HCl (Methadone Hcl 20 Mg/2 Ml Oral.Conc) 80 mg PO DAILY [facility] Last Admin: 04/18/24 08:39 Dose: 80 mg Documented By: CLEMENT Nicotine (Nicotine 7 Mg Patch.Td24) 7 mg TRANSDERMA DAILY [facility] Last Admin: 04/18/24 08:39 Dose: 7 mg Documented By: CLEMENT Ondansetron HCl (Ondansetron Hcl 4 Mg/2 Ml Vial) 4 mg IVPUSH Q8H PRN PRN Reason: Nausea and Vomiting Pharmacy Consult (Consult Rx Vancomycin Dosing) 1 each MISCELLANE DAILY PRN PRN Reason: Consult order Sodium Chloride (0.9 % Sodium Chloride Flush 3 Ml Syringe) 3 ml IVFLUSH QSHIFT [facility] Last Admin: 04/19/24 00:54 Dose: Not Given Documented By: ROSY Non-Admin Reason: PICC Sodium Chloride (0.9 % Sodium Chloride Flush 10 Ml Syringe) 5 ml IVFLUSH TID [facility] Last Admin: 04/18/24 21:52 Dose: 5 ml Documented By: ROSY Labs 04/11/24 10:48 04/19/24 06:14 Labs: Laboratory Results - last 24 hr 04/18/24 04/18/24 04/18/24 11:30 16:43 20:42 Hold Purple Top Estim Creat Clear Calc Estimated GFR POC Glucose 275 H 187 H 239 H Random Vancomycin 04/18/24 04/19/24 04/19/24 21:14 06:14 08:25 Hold Purple Top SEE NOTE Estim Creat Clear Calc 81.4 Estimated GFR > 60 POC Glucose 181 H Random Vancomycin 20.5 H Assessment and Plan (1) Bilateral lower leg cellulitis: Status: Acute (2) Acute osteomyelitis: Status: Acute (3) Hypoglycemia: Status: Acute Plan 63 yo wheelchair bound male with history of diabetes, PVD s/p right BKA 09/2023, chronic pain on methadone, history of left ankle/foot osteomyelitis with hx TMA, atrial fibrillation not on anticoagulation, HTN, hepatitis C s/p treatment in 2009 admitted for further management of infected unstageable ulcer R BKA stump with bilateral cellulitis. acute Rt BKA stump osteomyelitis r/t PVD with bilateral cellulitis and ulcers infection XR shows evidence of osteomyelitis R tibia negative cultures continue IV vancomycin (initiated 04/09) Dc Zosyn pain management p.r.n. general surgery rec local care Infectious Disease rec 6 weeks IV Ertapenem (end may 20, 2024) follow Vanco trough PICC in place Multiple superficial stage 2 non pressure ulcers left lower leg with cellulitis treat with antibiotics and wound care nurse insulin-dependent type 2 diabetes with hypoglycemia recurrent episodes on admission no resolved HbA1c of 6.2 hold Lantus for now (Was on 45 units BID!) POC glucose, diabetic diet Humalog on sliding scale consider PO Metformin on discharge chronic pain disorder continue methadone-follows with [facility] paroxysmal atrial fibrillation not on anticoagulation continue diltiazem hypertension continue diltiazem chronic normocytic anemia likely related to chronic disease H/H above transfusion threshold, baseline DVT prophylaxis-heparin Full code DISPO: Patient lose insurance 04/09. CM working on restarting it so he can be placed at SNF. Patient requires inpatient stay overnight for management of bilateral lower extremity cellulitis with infected extremity ulcers and RLE Osteomyelitis requiring IV antibiotics. Quality Stroke Does the patient have a stroke diagnosis?: No VTE Prior VTE?: No VTE Risk Level:: Medical - moderate - high VTE Device Contraindication: Treatment Not Indicated VTE Drug Contraindication: N/A - Med Ordered
[2024-04-19] MEDS: Nicotine 7 MG PATCH.TD24 TRANSDERMA (08:54)
[2024-04-19] MEDS: methADONE HCl 20 MG/2 ML ORAL.CONC 80 MG PO (08:54)
[2024-04-19] MEDS: Insulin Lispro 100 UNIT/ML 3 ML VIAL SUBCUT ×4 (08:54→20:18)
[2024-04-19] MEDS: Heparin Sodium,Porcine 5,000 UNIT/ML VIAL 5000 UNIT SUBCUT ×2 (08:55→19:26)
[2024-04-19] MEDS: hydrALAZINE HCl 50 MG TABLET PO ×3 (08:55→19:25)
[2024-04-19] MEDS: dilTIAZem HCL CD 180 MG CAP.ER.24H PO (08:55)
[2024-04-19] MEDS: 0.9 % Sodium Chloride Flush 10 ML SYRINGE 5 ML IVFLUSH ×3 (08:56→20:18)
[2024-04-19] MEDS: 0.9 % Sodium Chloride Flush 3 ML SYRINGE IVFLUSH ×2 (08:56→15:49)
[2024-04-19 11:38] LABS: Glucose, Whole Blood 231 mg/dL (60-115)
[2024-04-19] MEDS: vancomycin HCL 1,500 MG in 0.9 % Sodium Chloride 500 ML 333.33 MG IV (11:46)
[2024-04-19 17:13] LABS: Glucose, Whole Blood 178 mg/dL (60-115)
[2024-04-19] MEDS: Amitriptyline HCl 50 MG TABLET PO (19:25)
[2024-04-19 20:04] LABS: Glucose, Whole Blood 179 mg/dL (60-115)
[2024-04-20] VITALS (8 sets, daily range): BP systolic 155–173; BP diastolic 67–82; PULSE 62–71; RESP 16–20; TEMP 36.1–36.7; O2SAT 97–99
[2024-04-20 05:57] LABS: Hemoglobin 8.5 g/dl (14.0-18.0); Mean Corpuscular HGB Conc 30.4 g/dl (31.0-36.0); Mean Corpuscular Hemoglobin 25.4 pg (27.0-33.0); Mean Corpuscular Volume 83.8 fL (80.0-98.0); Mean Platelet Volume 11.1 fL (9.4-12.4); Platelet Count 277 X10*3/uL (160-400); Red Blood Count 3.34 X10*6/uL (4.60-5.80); Red Cell Distribution Width 14.2 % (11.0-16.0); White Blood Count 12.3 X10*3/uL (4.8-10.8)
[2024-04-20 06:13] LABS: Anion Gap 11 (12-20); Blood Urea Nitrogen 16 mg/dL (9-16); Calcium 8.9 mg/dL (8.4-10.2); Carbon Dioxide 27 mmol/L (22-29); Chloride 100 mmol/L (96-108); Creatinine Clr Calc Pharmacy 96.7; Estimated Glomerular Filt Rate > 60; Glucose Fasting 241 mg/dL (60-99); Potassium 4.3 mmol/L (3.3-5.1); Sodium 134 mmol/L (135-145)
[2024-04-20 07:34] LABS: Glucose, Whole Blood 209 mg/dL (60-115)
[2024-04-20] MEDS: Insulin Lispro 100 UNIT/ML 3 ML VIAL SUBCUT ×4 (07:47→20:16)
[2024-04-20] MEDS: hydrALAZINE HCl 50 MG TABLET PO ×3 (07:49→20:16)
[2024-04-20] MEDS: dilTIAZem HCL CD 180 MG CAP.ER.24H PO (07:49)
[2024-04-20] MEDS: Nicotine 7 MG PATCH.TD24 TRANSDERMA (07:50)
[2024-04-20] MEDS: Heparin Sodium,Porcine 5,000 UNIT/ML VIAL 5000 UNIT SUBCUT ×2 (07:50→20:15)
[2024-04-20] MEDS: methADONE HCl 20 MG/2 ML ORAL.CONC 80 MG PO (07:52)
[2024-04-20] MEDS: 0.9 % Sodium Chloride Flush 10 ML SYRINGE 5 ML IVFLUSH ×2 (07:53→16:44)
--- NOTE | 2024-04-20 08:22 | HO.PM.IMPN ---
Subjective Subjective Date of Service: 04/20/24 Interval History: no complaints Physical Exam Vital Signs: Vital Signs: Last Vital Signs Temp 97.1 F 04/20/24 07:27 Pulse 62 04/20/24 07:49 Resp 18 04/20/24 07:27 BP 163/74 H 04/20/24 07:49 Pulse Ox 98 04/20/24 07:27 O2 Del Method Room Air 04/20/24 07:27 BMI result Body Mass Index 31.3 Const: Other: Constitutional : Awake, interactive, not in distress Neck : Normal inspection, Supple Cardiovascular : RRR, no JVP, no lower extremity edema Respiratory : good bilateral air entry, no crackles, wheezes or rhonchi Gastrointestinal: soft, lax, Normal bowel sounds, Non tender Skin : Warm, Dry, Extremities: LLE transmetatarsal amputation, RLE BKA with open wound at base of stump with no significant erythema covered with dressing Neurological : Alert & oriented x3, No focal deficit Objective Data Active Medications Acetaminophen (Acetaminophen 325 Mg Tablet) 650 mg PO Q6H PRN PRN Reason: Pain, Mild (Pain Scale 1-3) Last Admin: 04/17/24 03:28 Dose: 650 mg Documented By: BERNICE Amitriptyline HCl (Amitriptyline Hcl 50 Mg Tablet) 50 mg PO BEDTIME [facility] Last Admin: 04/19/24 19:25 Dose: 50 mg Documented By: KEITH Diltiazem HCl (Diltiazem Hcl Cd 180 Mg Cap.Er.24h) 180 mg PO DAILY [facility]; Protocol Last Admin: 04/20/24 07:49 Dose: 180 mg Documented By: CARLOS Glucose (Glucose Gel 15 Gm Gel..Gram.) 15 gm PO Q15M PRN; Protocol PRN Reason: per Hypoglycemia Standing Ord. Last Admin: 04/10/24 06:26 Dose: 15 gm Documented By: DEE Heparin Sodium (Porcine) (Heparin Sodium,Porcine 5,000 Unit/Ml Vial) 5,000 unit SUBCUT Q12H [facility] Last Admin: 04/20/24 07:50 Dose: 5,000 unit Documented By: CARLOS Hydralazine HCl (Hydralazine Hcl 50 Mg Tablet) 50 mg PO TID [facility]; Protocol Last Admin: 04/20/24 07:49 Dose: 50 mg Documented By: CARLOS Dextrose (D10) 250 mls @ 750 mls/hr IV Q15M PRN; Protocol PRN Reason: per Hypoglycemia Standing Ord. Vancomycin HCl 1,500 mg/ (Sodium Chloride) 500 mls @ 333.333 mls/hr IV Q24H [facility] Last Infusion: 04/19/24 13:42 Dose: Infused Documented By: CLEMENT Insulin Human Lispro (Insulin Lispro 100 Unit/Ml 3 Ml Vial) 0 unit SUBCUT QIDACHS [facility]; Protocol Last Admin: 04/20/24 07:47 Dose: 4 unit Documented By: CARLOS Magnesium Hydroxide (Milk Of Magnesia 30 Ml Oral.Susp) 30 ml PO DAILY PRN PRN Reason: Constipation Methadone HCl (Methadone Hcl 20 Mg/2 Ml Oral.Conc) 80 mg PO DAILY [facility] Last Admin: 04/20/24 07:52 Dose: 80 mg Documented By: CARLOS Nicotine (Nicotine 7 Mg Patch.Td24) 7 mg TRANSDERMA DAILY [facility] Last Admin: 04/20/24 07:50 Dose: 7 mg Documented By: CARLOS Ondansetron HCl (Ondansetron Hcl 4 Mg/2 Ml Vial) 4 mg IVPUSH Q8H PRN PRN Reason: Nausea and Vomiting Sodium Chloride (0.9 % Sodium Chloride Flush 3 Ml Syringe) 3 ml IVFLUSH QSHIFT [facility] Last Admin: 04/20/24 07:48 Dose: Not Given Documented By: CARLOS Non-Admin Reason: pt has PICC Line Sodium Chloride (0.9 % Sodium Chloride Flush 10 Ml Syringe) 5 ml IVFLUSH TID [facility] Last Admin: 04/20/24 07:53 Dose: 5 ml Documented By: CARLOS Labs 04/20/24 05:19 04/20/24 05:19 Labs: Laboratory Results - last 24 hr 04/19/24 04/19/24 04/19/24 08:25 11:34 17:09 MCV MCH MCHC RDW Plt Count MPV Absolute Nucleated RBC Nucleated RBC % (auto) Anion Gap Estim Creat Clear Calc Estimated GFR POC Glucose 181 H 231 H 178 H Fasting Glucose Calcium 04/19/24 04/20/24 04/20/24 19:56 05:19 07:30 MCV 83.8 MCH 25.4 L MCHC 30.4 L RDW 14.2 Plt Count 277 MPV 11.1 Absolute Nucleated RBC 0.000 Nucleated RBC % (auto) 0.0 Anion Gap 11 L Estim Creat Clear Calc 96.7 Estimated GFR > 60 POC Glucose 179 H 209 H Fasting Glucose 241 H Calcium 8.9 Assessment and Plan (1) Bilateral lower leg cellulitis: Status: Acute (2) Acute osteomyelitis: Status: Acute (3) Hypoglycemia: Status: Acute Plan 63 yo wheelchair bound male with history of diabetes, PVD s/p right BKA 09/2023, chronic pain on methadone, history of left ankle/foot osteomyelitis with hx TMA, atrial fibrillation not on anticoagulation, HTN, hepatitis C s/p treatment in 2009 admitted for further management of infected unstageable ulcer R BKA stump with bilateral cellulitis. acute Rt BKA stump osteomyelitis r/t PVD with bilateral cellulitis and ulcers infection XR shows evidence of osteomyelitis R tibia negative cultures continue IV vancomycin (initiated 04/09) Dc Zosyn pain management p.r.n. general surgery rec local care Infectious Disease rec 6 weeks IV Ertapenem (end may 20, 2024) follow Vanco trough PICC in place Multiple superficial stage 2 non pressure ulcers left lower leg with cellulitis treat with antibiotics and wound care nurse insulin-dependent type 2 diabetes with hypoglycemia recurrent episodes on admission no resolved HbA1c of 6.2 hold Lantus for now (Was on 45 units BID!) POC glucose, diabetic diet Humalog on sliding scale consider PO Metformin on discharge chronic pain disorder continue methadone-follows with [facility] paroxysmal atrial fibrillation not on anticoagulation continue diltiazem hypertension continue diltiazem chronic normocytic anemia likely related to chronic disease H/H above transfusion threshold, baseline DVT prophylaxis-heparin Full code DISPO: Patient lose insurance 04/09. CM working on restarting it so he can be placed at SNF. Patient requires inpatient stay overnight for management of bilateral lower extremity cellulitis with infected extremity ulcers and RLE Osteomyelitis requiring IV antibiotics. Quality Stroke Does the patient have a stroke diagnosis?: No VTE Prior VTE?: No VTE Risk Level:: Medical - moderate - high VTE Device Contraindication: Treatment Not Indicated VTE Drug Contraindication: N/A - Med Ordered
--- NOTE | 2024-04-20 11:02 | HE.PHANOTE ---
RE: VANCO DOSING Random came back as 15. Continue with dose of 1500 mg q24h, next random is scheduled for 04/21 @0900.
[2024-04-20 11:18] LABS: Glucose, Whole Blood 267 mg/dL (60-115)
[2024-04-20] MEDS: vancomycin HCL 1,500 MG in 0.9 % Sodium Chloride 500 ML 333.33 MG IV (11:40)
--- NOTE | 2024-04-20 12:55 | MHC.CM.PN ---
EMR REVIEWED AND CM CONTINUES TO AWAIT [facility] TO REINSTATE INSURANCE. PT WILL NEED PLACEMENT AT [facility] FOR LT IV ABT RX. [facility] UPDATED. CM WILL CONTINUE TO FOLLOW FOR ANY CHANGE TO DC PLAN.
--- NOTE | 2024-04-20 14:25 | HO.WOUND ---
Addendum entered by Reyna Yadav RN 04/20/24 14:36: Left Shoulder wound assessed as well - see below for details. Left Shoulder Back area Etiology: Unknown Etiology Wound bed: 0.4cm x 0.4cm x 0.2cm rd moist wound bed no erythema no pain noted. Patient denies knowing about the wound but does recall he has had bengn cysts in the past. this does not appear consisitent with cyst but is not overly concerning at this time. Recommend moist wound healing with Durafiber and foam dressing change every 3 days. Left shoulder: Cleanse with NS moist gauze, pat dry. Cover wound bed with Durafiber AG followed by foam dressing, change every 3 days. Original Note: Wound Consult: Follow up 63yr old?Male admitted to [facility] on 04/09/24 - See progress notes and H&P for detailed history.? Wound consult follow up for Right BKA site and Left Lower Leg wounds POA and new Left shoulder wound.? Patient agreeable to assessment and photo documentation.?Patient reports the wounds appear better according to him. They are assessed below. Patient educated on the importance of blood sugar control, he reports understanding. Right BKA site 04/10/24 Right BKA 04/20/24 - Improved overall remains with adherent central yellow slough Right Lateral BKA 04/10/24 Right Lateral BKA 04/20/24 - Improved open site remains no yet resurfaced Etiology: ?Diabetic wound Measurements: 4cm x 3cm x0.2 cm Wound Bed: adhernt yellow slough firmly attached central area. smaller in size and resurfacing Drainage / Odor: clifton yellow drainage noted on dressing - no odor noted Edges: ? well defined Shara wound: Improved intact tissue - No Induration, Fluctuance or Warmth noted Pain: denies pain Goals of Treatment: Moist wound healing with Durafiber AG ? Left Lateral Foot Etiology: ?Diabetic wound - unchanged Measurements: 1cm x 1cm x0.2 cm Wound Bed: eschar firmly attached central area of mild fluctance noted. Drainage / Odor: none noted Edges: ? Irregular Shara wound: No erythema noted ? No Induration noted Pain: denies pain Goals of Treatment: Betadine to stabilize and keep dry. Left Leg Etiology: Venous wound - resurfacing almost completed Wound Bed: two wounds remains with newly epithelialized islands noted Drainage / Odor: serous drainage noted on dressing - no odor noted Edges: ? Irregular Shara wound: Hemosiderin staining noted - scar tissue noted - No Induration, Fluctuance or Warmth noted Pain: denies pain Goals of Treatment: Moist wound healing with form dressing Topical recommendations updated below for the Left lower Leg. Recommendations: 1. Turn and Reposition every 2 hours and as needed for patient comfort.? Use pillows or wedges to support off loading positions. 2. Off Load all bony prominences with use of pillows and heel boots if needed.? Apply Preventative foams where needed. ? 3. Monitor for incontinence and moisture control, use barrier creams when needed for prevention and treatment. 4. Provide adequate and supplemental nutrition.? 5. Order low air loss mattress. 6. Maintain blood glucose levels per Providers order. 7. Left Lateral Foot - Apply Betadine allow to dry cover with dry gauze, change daily. Do not apply foam dressing to left foot. 8. Left Leg - Elevate leg off of surface of bed with use of pillows.? Cleanse with NS, Pat dry.? Apply foam dressing to open wounds, Change every 3 days. 9. Right BKA site - Cleanse with NS, Pat dry.? Apply skin prep to periwound, cover wound bed with Durafiber AG.? Cover with Foam dressing.? Change every other day. Re-consult wound care Nurse for wound deterioration or wound changes.
[2024-04-20 16:14] LABS: Glucose, Whole Blood 229 mg/dL (60-115)
[2024-04-20 20:00] LABS: Glucose, Whole Blood 223 mg/dL (60-115)
[2024-04-20] MEDS: Amitriptyline HCl 50 MG TABLET PO (20:17)
[2024-04-20] MEDS: 0.9 % Sodium Chloride Flush 3 ML SYRINGE IVFLUSH (20:17)
[2024-04-21] VITALS (8 sets, daily range): BP systolic 125–168; BP diastolic 60–80; PULSE 65–75; RESP 13–20; TEMP 36.1–36.7; O2SAT 95–99
[2024-04-21 06:05] LABS: Creatinine Clr Calc Pharmacy 89.4; Estimated Glomerular Filt Rate > 60
[2024-04-21 07:07] LABS: Glucose, Whole Blood 175 mg/dL (60-115)
[2024-04-21] MEDS: hydrALAZINE HCl 50 MG TABLET PO ×3 (08:06→20:28)
[2024-04-21] MEDS: dilTIAZem HCL CD 180 MG CAP.ER.24H PO (08:07)
[2024-04-21] MEDS: methADONE HCl 20 MG/2 ML ORAL.CONC 80 MG PO (08:07)
[2024-04-21] MEDS: Nicotine 7 MG PATCH.TD24 TRANSDERMA (08:07)
[2024-04-21] MEDS: Heparin Sodium,Porcine 5,000 UNIT/ML VIAL 5000 UNIT SUBCUT ×2 (08:08→20:27)
[2024-04-21] MEDS: Insulin Lispro 100 UNIT/ML 3 ML VIAL SUBCUT ×4 (08:08→20:28)
[2024-04-21] MEDS: 0.9 % Sodium Chloride Flush 10 ML SYRINGE 5 ML IVFLUSH ×3 (08:12→20:28)
[2024-04-21] MEDS: 0.9 % Sodium Chloride Flush 3 ML SYRINGE IVFLUSH ×2 (08:12→16:13)
--- NOTE | 2024-04-21 08:28 | P.PNIM_ITS ---
Subjective Subjective Date of Service: 04/21/24 Interval History: no complaints Physical Exam 2 Vital Signs: Vital Signs: Last Vital Signs Temp 96.9 F 04/21/24 07:05 Pulse 65 04/21/24 08:07 Resp 16 04/21/24 07:05 BP 168/80 H 04/21/24 08:07 Pulse Ox 99 04/21/24 07:05 O2 Del Method Room Air 04/21/24 07:05 BMI result Body Mass Index 31.3 Const: Other: Constitutional : Awake, interactive, not in distress Neck : Normal inspection, Supple Cardiovascular : RRR, no JVP, no lower extremity edema Respiratory : good bilateral air entry, no crackles, wheezes or rhonchi Gastrointestinal: soft, lax, Normal bowel sounds, Non tender Skin : Warm, Dry, Extremities: LLE transmetatarsal amputation, RLE BKA with open wound at base of stump with no significant erythema covered with dressing Neurological : Alert & oriented x3, No focal deficit Objective Data Active Medications Acetaminophen (Acetaminophen 325 Mg Tablet) 650 mg PO Q6H PRN PRN Reason: Pain, Mild (Pain Scale 1-3) Last Admin: 04/17/24 03:28 Dose: 650 mg Documented By: BERNICE Amitriptyline HCl (Amitriptyline Hcl 50 Mg Tablet) 50 mg PO BEDTIME [facility] Last Admin: 04/20/24 20:17 Dose: 50 mg Documented By: MARIAN Diltiazem HCl (Diltiazem Hcl Cd 180 Mg Cap.Er.24h) 180 mg PO DAILY [facility]; Protocol Last Admin: 04/21/24 08:07 Dose: 180 mg Documented By: ADILENE Glucose (Glucose Gel 15 Gm Gel..Gram.) 15 gm PO Q15M PRN; Protocol PRN Reason: per Hypoglycemia Standing Ord. Last Admin: 04/10/24 06:26 Dose: 15 gm Documented By: DEE Heparin Sodium (Porcine) (Heparin Sodium,Porcine 5,000 Unit/Ml Vial) 5,000 unit SUBCUT Q12H [facility] Last Admin: 04/21/24 08:08 Dose: 5,000 unit Documented By: ADILENE Hydralazine HCl (Hydralazine Hcl 50 Mg Tablet) 50 mg PO TID [facility]; Protocol Last Admin: 04/21/24 08:06 Dose: 50 mg Documented By: ADILENE Dextrose (D10) 250 mls @ 750 mls/hr IV Q15M PRN; Protocol PRN Reason: per Hypoglycemia Standing Ord. Vancomycin HCl 1,500 mg/ (Sodium Chloride) 500 mls @ 333.333 mls/hr IV Q24H [facility] Last Infusion: 04/20/24 13:15 Dose: Infused Documented By: CARLOS Insulin Human Lispro (Insulin Lispro 100 Unit/Ml 3 Ml Vial) 0 unit SUBCUT QIDACHS [facility]; Protocol Last Admin: 04/21/24 08:08 Dose: 2 unit Documented By: ADILENE Magnesium Hydroxide (Milk Of Magnesia 30 Ml Oral.Susp) 30 ml PO DAILY PRN PRN Reason: Constipation Methadone HCl (Methadone Hcl 20 Mg/2 Ml Oral.Conc) 80 mg PO DAILY [facility] Last Admin: 04/21/24 08:07 Dose: 80 mg Documented By: ADILENE Nicotine (Nicotine 7 Mg Patch.Td24) 7 mg TRANSDERMA DAILY [facility] Last Admin: 04/21/24 08:07 Dose: 7 mg Documented By: ADILENE Ondansetron HCl (Ondansetron Hcl 4 Mg/2 Ml Vial) 4 mg IVPUSH Q8H PRN PRN Reason: Nausea and Vomiting Sodium Chloride (0.9 % Sodium Chloride Flush 3 Ml Syringe) 3 ml IVFLUSH QSHIFT [facility] Last Admin: 04/21/24 08:12 Dose: 3 ml Documented By: ADILENE Sodium Chloride (0.9 % Sodium Chloride Flush 10 Ml Syringe) 5 ml IVFLUSH TID [facility] Last Admin: 04/21/24 08:12 Dose: 5 ml Documented By: ADILENE Labs 04/20/24 05:19 04/21/24 05:01 Labs: Laboratory Results - last 24 hr 04/20/24 04/20/24 04/20/24 10:02 11:11 16:08 Hold Purple Top Estim Creat Clear Calc Estimated GFR POC Glucose 267 H 229 H Random Vancomycin 15.0 04/20/24 04/21/24 04/21/24 19:56 05:01 07:02 Hold Purple Top SEE NOTE Estim Creat Clear Calc 89.4 Estimated GFR > 60 POC Glucose 223 H 175 H Random Vancomycin Assessment and Plan (1) Bilateral lower leg cellulitis: Status: Acute (2) Acute osteomyelitis: Status: Acute (3) Hypoglycemia: Status: Acute Plan 63 yo wheelchair bound male with history of diabetes, PVD s/p right BKA 09/2023, chronic pain on methadone, history of left ankle/foot osteomyelitis with hx TMA, atrial fibrillation not on anticoagulation, HTN, hepatitis C s/p treatment in 2009 admitted for further management of infected unstageable ulcer R BKA stump with bilateral cellulitis. acute Rt BKA stump osteomyelitis r/t PVD with bilateral cellulitis and ulcers infection XR shows evidence of osteomyelitis R tibia negative cultures continue IV vancomycin (initiated 04/09) pain management p.r.n. general surgery rec local care Infectious Disease rec 6 weeks IV Ertapenem (end may 20, 2024) follow Vanco trough PICC in place Multiple superficial stage 2 non pressure ulcers left lower leg with cellulitis treat with antibiotics and wound care nurse insulin-dependent type 2 diabetes with hypoglycemia recurrent episodes on admission no resolved HbA1c of 6.2 hold Lantus for now (Was on 45 units BID!) POC glucose, diabetic diet Humalog on sliding scale consider PO Metformin on discharge chronic pain disorder continue methadone-follows with [facility] paroxysmal atrial fibrillation not on anticoagulation continue diltiazem hypertension continue diltiazem chronic normocytic anemia likely related to chronic disease H/H above transfusion threshold, baseline DVT prophylaxis-heparin Full code DISPO: Patient lost insurance 04/09. CM working on restarting it so he can be placed at SNF. Patient requires inpatient stay overnight for management of bilateral lower extremity cellulitis with infected extremity ulcers and RLE Osteomyelitis requiring IV antibiotics. Quality Stroke Does the patient have a stroke diagnosis?: No VTE Prior VTE?: No VTE Risk Level:: Medical - moderate - high VTE Device Contraindication: Treatment Not Indicated VTE Drug Contraindication: N/A - Med Ordered
[2024-04-21 09:46] LABS: Vancomycin Random 16.1 mcg/mL (15-20)
[2024-04-21] MEDS: vancomycin HCL 1,500 MG in 0.9 % Sodium Chloride 500 ML 333.33 MG IV (11:20)
[2024-04-21 11:21] LABS: Glucose, Whole Blood 251 mg/dL (60-115)
--- NOTE | 2024-04-21 12:58 | MHC.CM.PN ---
PER [facility], PT'S INSURANCE HAS BEEN REINSTATED. KATHI, METHADONE COUNSELOR AT [facility], NOTIFIED OF NEED TO SEND GUEST DOSING INFORMATION TO [facility] UPDATED WITH A REQUEST TO START AUTH FOR ADMISSION. AWAITING RESPONSE. CM CONTINUES TO FOLLOW FOR ANY CHANGE TO DC PLAN.
[2024-04-21 16:12] LABS: Glucose, Whole Blood 193 mg/dL (60-115)
[2024-04-21 20:17] LABS: Glucose, Whole Blood 195 mg/dL (60-115)
[2024-04-21] MEDS: Amitriptyline HCl 50 MG TABLET PO (20:28)
[2024-04-22] VITALS (7 sets, daily range): BP systolic 158–185; BP diastolic 76–82; PULSE 62–67; RESP 16–18; TEMP 36.1–36.6; O2SAT 97–98
[2024-04-22 06:40] LABS: Creatinine Clr Calc Pharmacy 81.4; Estimated Glomerular Filt Rate > 60
[2024-04-22 07:49] LABS: Glucose, Whole Blood 178 mg/dL (60-115)
[2024-04-22] MEDS: 0.9 % Sodium Chloride Flush 3 ML SYRINGE IVFLUSH ×2 (07:58→15:19)
[2024-04-22] MEDS: Insulin Lispro 100 UNIT/ML 3 ML VIAL SUBCUT ×4 (07:59→20:29)
[2024-04-22] MEDS: 0.9 % Sodium Chloride Flush 10 ML SYRINGE 5 ML IVFLUSH ×3 (07:59→20:29)
[2024-04-22] MEDS: Heparin Sodium,Porcine 5,000 UNIT/ML VIAL 5000 UNIT SUBCUT ×2 (07:59→20:29)
[2024-04-22] MEDS: hydrALAZINE HCl 50 MG TABLET PO ×3 (08:00→20:30)
[2024-04-22] MEDS: methADONE HCl 20 MG/2 ML ORAL.CONC 80 MG PO (08:00)
[2024-04-22] MEDS: Nicotine 7 MG PATCH.TD24 TRANSDERMA (08:00)
[2024-04-22] MEDS: dilTIAZem HCL CD 180 MG CAP.ER.24H PO (08:00)
--- NOTE | 2024-04-22 08:49 | MHC.CM.PN ---
[facility] UPDATED [facility] PROGRESS NOTE DC PLAN REMAINS TO TRANSFER TO [facility] FOR LT IV ABX
[2024-04-22 09:36] LABS: Vancomycin Random 17.3 mcg/mL (15-20)
--- NOTE | 2024-04-22 09:51 | HE.PHANOTE ---
Re: Corazon Renal function has decreased. Trough returned at 17.3, patient is therapeutic. Continue current dose of 1500 mg Q24. Next trough to be drawn 04/23 @0900.
[2024-04-22] MEDS: vancomycin HCL 1,500 MG in 0.9 % Sodium Chloride 500 ML 333.33 MG IV (10:25)
[2024-04-22 11:10] LABS: Glucose, Whole Blood 239 mg/dL (60-115)
--- NOTE | 2024-04-22 12:01 | HO.PM.IMPN ---
Subjective Subjective Date of Service: 04/22/24 Interval History: seen and evaluated this morning Pain under fair control wounds feel better No fever or chills reported Review of Systems Review of Systems: Yes all other systems are reviewed and are negative Physical Exam Vital Signs: Vital Signs: Last Vital Signs Temp 96.9 F 04/22/24 07:33 Pulse 64 04/22/24 08:00 Resp 16 04/22/24 07:33 BP 162/78 H 04/22/24 08:00 Pulse Ox 98 04/22/24 07:33 O2 Del Method Room Air 04/22/24 07:33 BMI result Body Mass Index 31.3 Const: Other: Constitutional : Awake, interactive, not in distress Neck : Normal inspection, Supple Cardiovascular : RRR, no JVP, no lower extremity edema Respiratory : good bilateral air entry, no crackles, wheezes or rhonchi Gastrointestinal: soft, lax, Normal bowel sounds, Non tender Skin : Warm, Dry, Extremities: LLE transmetatarsal amputation, RLE BKA with open wound at base of stump with no significant erythema covered with dressing Neurological : Alert & oriented x3, No focal deficit Objective Data Active Medications Acetaminophen (Acetaminophen 325 Mg Tablet) 650 mg PO Q6H PRN PRN Reason: Pain, Mild (Pain Scale 1-3) Last Admin: 04/17/24 03:28 Dose: 650 mg Documented By: BERNICE Amitriptyline HCl (Amitriptyline Hcl 50 Mg Tablet) 50 mg PO BEDTIME [facility] Last Admin: 04/21/24 20:28 Dose: 50 mg Documented By: ODRISHeike Diltiazem HCl (Diltiazem Hcl Cd 180 Mg Cap.Er.24h) 180 mg PO DAILY [facility]; Protocol Last Admin: 04/22/24 08:00 Dose: 180 mg Documented By: MITALI Glucose (Glucose Gel 15 Gm Gel..Gram.) 15 gm PO Q15M PRN; Protocol PRN Reason: per Hypoglycemia Standing Ord. Last Admin: 04/10/24 06:26 Dose: 15 gm Documented By: DEE Heparin Sodium (Porcine) (Heparin Sodium,Porcine 5,000 Unit/Ml Vial) 5,000 unit SUBCUT Q12H [facility] Last Admin: 04/22/24 07:59 Dose: 5,000 unit Documented By: MITALI Hydralazine HCl (Hydralazine Hcl 50 Mg Tablet) 50 mg PO TID [facility]; Protocol Last Admin: 04/22/24 08:00 Dose: 50 mg Documented By: MITALI Dextrose (D10) 250 mls @ 750 mls/hr IV Q15M PRN; Protocol PRN Reason: per Hypoglycemia Standing Ord. Vancomycin HCl 1,500 mg/ (Sodium Chloride) 500 mls @ 333.333 mls/hr IV Q24H [facility] Last Infusion: 04/22/24 11:59 Dose: Infused Documented By: MITALI Insulin Human Lispro (Insulin Lispro 100 Unit/Ml 3 Ml Vial) 0 unit SUBCUT QIDACHS [facility]; Protocol Last Admin: 04/22/24 11:33 Dose: 4 unit Documented By: MITALI Magnesium Hydroxide (Milk Of Magnesia 30 Ml Oral.Susp) 30 ml PO DAILY PRN PRN Reason: Constipation Methadone HCl (Methadone Hcl 20 Mg/2 Ml Oral.Conc) 80 mg PO DAILY [facility] Last Admin: 04/22/24 08:00 Dose: 80 mg Documented By: MITALI Nicotine (Nicotine 7 Mg Patch.Td24) 7 mg TRANSDERMA DAILY [facility] Last Admin: 04/22/24 08:00 Dose: 7 mg Documented By: MITALI Ondansetron HCl (Ondansetron Hcl 4 Mg/2 Ml Vial) 4 mg IVPUSH Q8H PRN PRN Reason: Nausea and Vomiting Pharmacy Consult (Consult Rx Vancomycin Dosing) 1 each MISCELLANE DAILY PRN PRN Reason: Consult order Sodium Chloride (0.9 % Sodium Chloride Flush 3 Ml Syringe) 3 ml IVFLUSH QSHIFT [facility] Last Admin: 04/22/24 07:58 Dose: 3 ml Documented By: MITALI Sodium Chloride (0.9 % Sodium Chloride Flush 10 Ml Syringe) 5 ml IVFLUSH TID [facility] Last Admin: 04/22/24 07:59 Dose: 5 ml Documented By: MITALI Labs 04/20/24 05:19 04/22/24 05:41 Labs: Laboratory Results - last 24 hr 04/21/24 04/21/24 04/22/24 16:08 20:14 05:41 Hold Purple Top SEE NOTE Estim Creat Clear Calc 81.4 Estimated GFR > 60 POC Glucose 193 H 195 H Random Vancomycin 04/22/24 04/22/24 04/22/24 07:36 08:56 11:07 Hold Purple Top Estim Creat Clear Calc Estimated GFR POC Glucose 178 H 239 H Random Vancomycin 17.3 Assessment and Plan (1) Bilateral lower leg cellulitis: Status: Acute (2) Acute osteomyelitis: Status: Acute Plan 63 yo wheelchair bound male with history of diabetes, PVD s/p right BKA 09/2023, chronic pain on methadone, history of left ankle/foot osteomyelitis with hx TMA, atrial fibrillation not on anticoagulation, HTN, hepatitis C s/p treatment in 2009 admitted for further management of infected unstageable ulcer R BKA stump with bilateral cellulitis. acute Rt BKA stump osteomyelitis r/t PVD with bilateral cellulitis and ulcers infection XR shows evidence of osteomyelitis R tibia negative cultures continue IV vancomycin (initiated 04/09) pain management p.r.n. general surgery rec local care Infectious Disease rec 6 weeks IV Ertapenem (end may 20, 2024) follow Vanco trough PICC in place Multiple superficial stage 2 non pressure ulcers left lower leg with cellulitis treat with antibiotics and wound care nurse insulin-dependent type 2 diabetes with hypoglycemia recurrent episodes on admission no resolved HbA1c of 6.2 hold Lantus for now (Was on 45 units BID!) POC glucose, diabetic diet Humalog on sliding scale consider PO Metformin on discharge chronic pain disorder continue methadone-follows with [facility] paroxysmal atrial fibrillation not on anticoagulation continue diltiazem hypertension continue diltiazem chronic normocytic anemia likely related to chronic disease H/H above transfusion threshold, baseline DVT prophylaxis-heparin Full code DISPO: Patient lost insurance 04/09. CM working on restarting it so he can be placed at SNF. Patient requires inpatient stay overnight for management of bilateral lower extremity cellulitis with infected extremity ulcers and RLE Osteomyelitis requiring IV antibiotics. Quality Stroke Does the patient have a stroke diagnosis?: No VTE Prior VTE?: No VTE Risk Level:: Medical - moderate - high VTE Device Contraindication: Treatment Not Indicated VTE Drug Contraindication: N/A - Med Ordered
[2024-04-22 16:15] LABS: Glucose, Whole Blood 226 mg/dL (60-115)
[2024-04-22 20:08] LABS: Glucose, Whole Blood 203 mg/dL (60-115)
[2024-04-22] MEDS: Amitriptyline HCl 50 MG TABLET PO (20:30)
[2024-04-23 04:00] VITALS: BP 167/77; PULSE 90; RESP 18; TEMP 36.2; O2SAT 97
[2024-04-23 06:59] LABS: Creatinine Clr Calc Pharmacy 77.6; Estimated Glomerular Filt Rate > 60
[2024-04-23 07:28] LABS: Glucose, Whole Blood 175 mg/dL (60-115)
[2024-04-23 07:40] VITALS: BP 156/74; PULSE 70; RESP 16; TEMP 36.2; O2SAT 99
[2024-04-23] MEDS: Insulin Lispro 100 UNIT/ML 3 ML VIAL SUBCUT ×4 (07:54→20:06)
[2024-04-23 07:55] VITALS: BP 156/74; PULSE 70
[2024-04-23] MEDS: dilTIAZem HCL CD 180 MG CAP.ER.24H PO (07:55)
[2024-04-23] MEDS: Nicotine 7 MG PATCH.TD24 TRANSDERMA (07:55)
[2024-04-23] MEDS: Heparin Sodium,Porcine 5,000 UNIT/ML VIAL 5000 UNIT SUBCUT ×2 (07:55→20:06)
[2024-04-23] MEDS: hydrALAZINE HCl 50 MG TABLET PO ×3 (07:55→20:07)
[2024-04-23] MEDS: 0.9 % Sodium Chloride Flush 10 ML SYRINGE 5 ML IVFLUSH ×3 (07:56→20:07)
[2024-04-23] MEDS: methADONE HCl 20 MG/2 ML ORAL.CONC 80 MG PO (07:56)
--- NOTE | 2024-04-23 09:34 | HO.PM.IMPN ---
Subjective Subjective Date of Service: 04/23/24 Interval History: seen and evaluated this morning Pain under fair control No fever or chills reported Review of Systems Review of Systems: Yes all other systems are reviewed and are negative Physical Exam Vital Signs: Vital Signs: Last Vital Signs Temp 97.1 F 04/23/24 07:40 Pulse 70 04/23/24 07:55 Resp 16 04/23/24 07:40 BP 156/74 H 04/23/24 07:55 Pulse Ox 99 04/23/24 07:40 O2 Del Method Room Air 04/23/24 07:40 BMI result Body Mass Index 31.3 Const: Other: Constitutional : Awake, interactive, not in distress Neck : Normal inspection, Supple Cardiovascular : RRR, no JVP, no lower extremity edema Respiratory : good bilateral air entry, no crackles, wheezes or rhonchi Gastrointestinal: soft, lax, Normal bowel sounds, Non tender Skin : Warm, Dry, Extremities: LLE transmetatarsal amputation, RLE BKA with open wound at base of stump with no significant erythema covered with dressing Neurological : Alert & oriented x3, No focal deficit Objective Data Active Medications Acetaminophen (Acetaminophen 325 Mg Tablet) 650 mg PO Q6H PRN PRN Reason: Pain, Mild (Pain Scale 1-3) Last Admin: 04/17/24 03:28 Dose: 650 mg Documented By: BERNICE Amitriptyline HCl (Amitriptyline Hcl 50 Mg Tablet) 50 mg PO BEDTIME [facility] Last Admin: 04/22/24 20:30 Dose: 50 mg Documented By: ARYA Diltiazem HCl (Diltiazem Hcl Cd 180 Mg Cap.Er.24h) 180 mg PO DAILY [facility]; Protocol Last Admin: 04/23/24 07:55 Dose: 180 mg Documented By: AYESHA Glucose (Glucose Gel 15 Gm Gel..Gram.) 15 gm PO Q15M PRN; Protocol PRN Reason: per Hypoglycemia Standing Ord. Last Admin: 04/10/24 06:26 Dose: 15 gm Documented By: DEE Heparin Sodium (Porcine) (Heparin Sodium,Porcine 5,000 Unit/Ml Vial) 5,000 unit SUBCUT Q12H [facility] Last Admin: 04/23/24 07:55 Dose: 5,000 unit Documented By: AYESHA Hydralazine HCl (Hydralazine Hcl 50 Mg Tablet) 50 mg PO TID [facility]; Protocol Last Admin: 04/23/24 07:55 Dose: 50 mg Documented By: AYESHA Dextrose (D10) 250 mls @ 750 mls/hr IV Q15M PRN; Protocol PRN Reason: per Hypoglycemia Standing Ord. Vancomycin HCl 1,500 mg/ (Sodium Chloride) 500 mls @ 333.333 mls/hr IV Q24H [facility] Last Infusion: 04/22/24 11:59 Dose: Infused Documented By: MITALI Insulin Human Lispro (Insulin Lispro 100 Unit/Ml 3 Ml Vial) 0 unit SUBCUT QIDACHS [facility]; Protocol Last Admin: 04/23/24 07:54 Dose: 2 unit Documented By: AYESHA Magnesium Hydroxide (Milk Of Magnesia 30 Ml Oral.Susp) 30 ml PO DAILY PRN PRN Reason: Constipation Methadone HCl (Methadone Hcl 20 Mg/2 Ml Oral.Conc) 80 mg PO DAILY [facility] Last Admin: 04/23/24 07:56 Dose: 80 mg Documented By: AYESHA Nicotine (Nicotine 7 Mg Patch.Td24) 7 mg TRANSDERMA DAILY [facility] Last Admin: 04/23/24 07:55 Dose: 7 mg Documented By: AYESHA Ondansetron HCl (Ondansetron Hcl 4 Mg/2 Ml Vial) 4 mg IVPUSH Q8H PRN PRN Reason: Nausea and Vomiting Pharmacy Consult (Consult Rx Vancomycin Dosing) 1 each MISCELLANE DAILY PRN PRN Reason: Consult order Sodium Chloride (0.9 % Sodium Chloride Flush 3 Ml Syringe) 3 ml IVFLUSH QSHIFT [facility] Last Admin: 04/23/24 07:56 Dose: Not Given Documented By: AYESHA Non-Admin Reason: PICC Sodium Chloride (0.9 % Sodium Chloride Flush 10 Ml Syringe) 5 ml IVFLUSH TID [facility] Last Admin: 04/23/24 07:56 Dose: 5 ml Documented By: AYESHA Labs 04/20/24 05:19 04/23/24 05:55 Labs: Laboratory Results - last 24 hr 04/22/24 04/22/24 04/22/24 08:56 11:07 16:10 Hold Purple Top Estim Creat Clear Calc Estimated GFR POC Glucose 239 H 226 H Random Vancomycin 17.3 04/22/24 04/23/24 04/23/24 20:02 05:55 07:12 Hold Purple Top SEE NOTE Estim Creat Clear Calc 77.6 Estimated GFR > 60 POC Glucose 203 H 175 H Random Vancomycin Assessment and Plan (1) Bilateral lower leg cellulitis: Status: Acute Plan 63 yo wheelchair bound male with history of diabetes, PVD s/p right BKA 09/2023, chronic pain on methadone, history of left ankle/foot osteomyelitis with hx TMA, atrial fibrillation not on anticoagulation, HTN, hepatitis C s/p treatment in 2009 admitted for further management of infected unstageable ulcer R BKA stump with bilateral cellulitis. acute Rt BKA stump osteomyelitis r/t PVD with bilateral cellulitis and ulcers infection XR shows evidence of osteomyelitis R tibia negative cultures continue IV vancomycin (initiated 04/09) pain management p.r.n. general surgery rec local care Infectious Disease rec 6 weeks IV Ertapenem (end may 20, 2024) follow Vanco trough PICC in place Multiple superficial stage 2 non pressure ulcers left lower leg with cellulitis treat with antibiotics and wound care nurse insulin-dependent type 2 diabetes with hypoglycemia recurrent episodes on admission no resolved HbA1c of 6.2 hold Lantus for now (Was on 45 units BID!) POC glucose, diabetic diet Humalog on sliding scale consider PO Metformin on discharge chronic pain disorder continue methadone-follows with [facility] paroxysmal atrial fibrillation not on anticoagulation continue diltiazem hypertension continue diltiazem chronic normocytic anemia likely related to chronic disease H/H above transfusion threshold, baseline DVT prophylaxis-heparin Full code DISPO: Patient lost insurance 04/09. CM working on restarting it so he can be placed at SNF. Patient requires inpatient stay overnight for management of bilateral lower extremity cellulitis with infected extremity ulcers and RLE Osteomyelitis requiring IV antibiotics. Quality Stroke Does the patient have a stroke diagnosis?: No VTE Prior VTE?: No VTE Risk Level:: Medical - moderate - high VTE Device Contraindication: Treatment Not Indicated VTE Drug Contraindication: N/A - Med Ordered
[2024-04-23 10:13] LABS: Vancomycin Random 17.1 mcg/mL (15-20)
[2024-04-23 11:22] LABS: Glucose, Whole Blood 196 mg/dL (60-115)
--- NOTE | 2024-04-23 11:32 | MHC.CM.PN ---
CALL TO [facility] IN [place] [phone] TO INQUIRE ABOUT DOSING CONFIRMATION. FUR BLOWING MACHINE OPERATOR ASKS FOR T/W CONTACT NUMBER AND WILL CALL BACK ONCE SHE FINDS OUT HNE INFORMATION GIVEN TO JUMANA ADAM.
[2024-04-23] MEDS: vancomycin HCL 1,500 MG in 0.9 % Sodium Chloride 500 ML 333.33 MG IV (11:33)
--- NOTE | 2024-04-23 11:54 | MHC.CM.PN ---
[facility] OUTPATIENT SUBSTANCE USE TREATMENT MESSAGE LEFT FOR KATHI TO CALL THIS RN WOUND CARE BACK, [facility] INFORMED [facility] THAT NO GUEST DOSING CALL WAS MADE. FACE SHEET AND PROGRESS NOTE FAXED TO ANAND AT [facility] ([phone]) AT FAX NUMBER [phone]. ANAND STATES THAT IF ALL GOES WELL, THEY CAN START SERVICES ON SATURDAY FOR PATIENT.
--- NOTE | 2024-04-23 13:52 | MHC.CM.PN ---
KATHI FROM [facility] ([phone]) AWARE THAT PLAN IS FOR START DATE OF Saturday04/27/24 AND WILL NOW FAX [facility] WHAT THEY NEED FOR GUEST DOSING.
[2024-04-23 15:46] VITALS: BP 174/80; PULSE 76; RESP 18; TEMP 36.6; O2SAT 97
[2024-04-23 16:17] LABS: Glucose, Whole Blood 167 mg/dL (60-115)
[2024-04-23 19:30] VITALS: BP 167/77; PULSE 72; RESP 18; TEMP 36.3; O2SAT 96
[2024-04-23 19:45] LABS: Glucose, Whole Blood 188 mg/dL (60-115)
[2024-04-23 20:07] VITALS: BP 167/77
[2024-04-23] MEDS: Amitriptyline HCl 50 MG TABLET PO (20:07)
[2024-04-24] VITALS (7 sets, daily range): BP systolic 144–159; BP diastolic 67–84; PULSE 68–89; RESP 14–18; TEMP 36–36.4; O2SAT 96–98
[2024-04-24 06:45] LABS: Creatinine Clr Calc Pharmacy 87.5; Estimated Glomerular Filt Rate > 60
[2024-04-24 07:29] LABS: Glucose, Whole Blood 156 mg/dL (60-115)
[2024-04-24] MEDS: methADONE HCl 20 MG/2 ML ORAL.CONC 80 MG PO (08:12)
[2024-04-24] MEDS: Insulin Lispro 100 UNIT/ML 3 ML VIAL SUBCUT ×4 (08:12→20:38)
[2024-04-24] MEDS: hydrALAZINE HCl 50 MG TABLET PO ×3 (08:13→20:39)
[2024-04-24] MEDS: Nicotine 7 MG PATCH.TD24 TRANSDERMA (08:13)
[2024-04-24] MEDS: Heparin Sodium,Porcine 5,000 UNIT/ML VIAL 5000 UNIT SUBCUT ×2 (08:13→20:39)
[2024-04-24] MEDS: dilTIAZem HCL CD 180 MG CAP.ER.24H PO (08:13)
[2024-04-24] MEDS: 0.9 % Sodium Chloride Flush 10 ML SYRINGE 5 ML IVFLUSH ×3 (08:14→20:46)
--- NOTE | 2024-04-24 09:18 | MHC.CM.PN ---
PER [facility] COMMUNICATION, GUEST DOSING WAS INITIATED YESTERDAY AND WILL BE READY TO START ON SATURDAY [facility] HAS INDICATED SHE WILL SUBMIT THE REQUEST FOR AUTH CM HAS LEFT A MESSAGE ASKING IF THEY COULD TAKE PT ON SATURDAY AFTER HE RECEIVES HIS METHADONE
[2024-04-24 11:20] LABS: Glucose, Whole Blood 210 mg/dL (60-115)
[2024-04-24 11:23] LABS: Vancomycin Random 16.6 mcg/mL (15-20)
[2024-04-24] MEDS: vancomycin HCL 1,500 MG in 0.9 % Sodium Chloride 500 ML 333.33 MG IV (11:35)
--- NOTE | 2024-04-24 11:56 | P.PNIM_ITS ---
Subjective Subjective Date of Service: 04/24/24 Interval History: seen and evaluated this morning Pain under fair control No fever or chills reported Physical Exam 2 Vital Signs: Vital Signs: Last Vital Signs Temp 96.8 F 04/24/24 07:46 Pulse 70 04/24/24 08:13 Resp 18 04/24/24 07:46 BP 159/67 H 04/24/24 08:13 Pulse Ox 97 04/24/24 07:46 O2 Del Method Room Air 04/24/24 07:46 BMI result Body Mass Index 31.3 Const: Other: Constitutional : Awake, interactive, not in distress Neck : Normal inspection, Supple Cardiovascular : RRR, no JVP, no lower extremity edema Respiratory : good bilateral air entry, no crackles, wheezes or rhonchi Gastrointestinal: soft, lax, Normal bowel sounds, Non tender Skin : Warm, Dry, Extremities: LLE transmetatarsal amputation, RLE BKA with open wound at base of stump with no significant erythema covered with dressing Neurological : Alert & oriented x3, No focal deficit Objective Data Active Medications Acetaminophen (Acetaminophen 325 Mg Tablet) 650 mg PO Q6H PRN PRN Reason: Pain, Mild (Pain Scale 1-3) Last Admin: 04/17/24 03:28 Dose: 650 mg Documented By: BERNICE Amitriptyline HCl (Amitriptyline Hcl 50 Mg Tablet) 50 mg PO BEDTIME [facility] Last Admin: 04/23/24 20:07 Dose: 50 mg Documented By: AYRA Diltiazem HCl (Diltiazem Hcl Cd 180 Mg Cap.Er.24h) 180 mg PO DAILY [facility]; Protocol Last Admin: 04/24/24 08:13 Dose: 180 mg Documented By: AYESHA Glucose (Glucose Gel 15 Gm Gel..Gram.) 15 gm PO Q15M PRN; Protocol PRN Reason: per Hypoglycemia Standing Ord. Last Admin: 04/10/24 06:26 Dose: 15 gm Documented By: DEE Heparin Sodium (Porcine) (Heparin Sodium,Porcine 5,000 Unit/Ml Vial) 5,000 unit SUBCUT Q12H [facility] Last Admin: 04/24/24 08:13 Dose: 5,000 unit Documented By: AYESAH Hydralazine HCl (Hydralazine Hcl 50 Mg Tablet) 50 mg PO TID [facility]; Protocol Last Admin: 04/24/24 08:13 Dose: 50 mg Documented By: AYESHA Dextrose (D10) 250 mls @ 750 mls/hr IV Q15M PRN; Protocol PRN Reason: per Hypoglycemia Standing Ord. Vancomycin HCl 1,500 mg/ (Sodium Chloride) 500 mls @ 333.333 mls/hr IV Q24H [facility] Last Admin: 04/24/24 11:35 Dose: 333.33 mls/hr Documented By: AYESHA Insulin Human Lispro (Insulin Lispro 100 Unit/Ml 3 Ml Vial) 0 unit SUBCUT QIDACHS [facility]; Protocol Last Admin: 04/24/24 11:35 Dose: 4 unit Documented By: AYESHA Magnesium Hydroxide (Milk Of Magnesia 30 Ml Oral.Susp) 30 ml PO DAILY PRN PRN Reason: Constipation Methadone HCl (Methadone Hcl 20 Mg/2 Ml Oral.Conc) 80 mg PO DAILY [facility] Last Admin: 04/24/24 08:12 Dose: 80 mg Documented By: AYESHA Nicotine (Nicotine 7 Mg Patch.Td24) 7 mg TRANSDERMA DAILY [facility] Last Admin: 04/24/24 08:13 Dose: 7 mg Documented By: AYESHA Ondansetron HCl (Ondansetron Hcl 4 Mg/2 Ml Vial) 4 mg IVPUSH Q8H PRN PRN Reason: Nausea and Vomiting Pharmacy Consult (Consult Rx Vancomycin Dosing) 1 each MISCELLANE DAILY PRN PRN Reason: Consult order Sodium Chloride (0.9 % Sodium Chloride Flush 3 Ml Syringe) 3 ml IVFLUSH QSHIFT [facility] Last Admin: 04/24/24 08:11 Dose: Not Given Documented By: AYESHA Non-Admin Reason: PICC Sodium Chloride (0.9 % Sodium Chloride Flush 10 Ml Syringe) 5 ml IVFLUSH TID [facility] Last Admin: 04/24/24 08:14 Dose: 5 ml Documented By: AYESHA Labs 04/20/24 05:19 04/24/24 06:00 Labs: Laboratory Results - last 24 hr 04/23/24 04/23/24 04/24/24 16:13 19:40 06:00 Hold Purple Top SEE NOTE Estim Creat Clear Calc 87.5 Estimated GFR > 60 POC Glucose 167 H 188 H Random Vancomycin 04/24/24 04/24/24 04/24/24 07:23 10:46 11:15 Hold Purple Top Estim Creat Clear Calc Estimated GFR POC Glucose 156 H 210 H Random Vancomycin 16.6 Assessment and Plan (1) Bilateral lower leg cellulitis: Status: Acute (2) Acute osteomyelitis: Status: Acute Plan 63 yo wheelchair bound male with history of diabetes, PVD s/p right BKA 09/2023, chronic pain on methadone, history of left ankle/foot osteomyelitis with hx TMA, atrial fibrillation not on anticoagulation, HTN, hepatitis C s/p treatment in 2009 admitted for further management of infected unstageable ulcer R BKA stump with bilateral cellulitis. acute Rt BKA stump osteomyelitis r/t PVD with bilateral cellulitis and ulcers infection XR shows evidence of osteomyelitis R tibia negative cultures continue IV vancomycin (initiated 04/09) pain management p.r.n. general surgery rec local care Infectious Disease rec 6 weeks IV Ertapenem (end may 20, 2024) follow Vanco trough PICC in place Multiple superficial stage 2 non pressure ulcers left lower leg with cellulitis treat with antibiotics and wound care nurse insulin-dependent type 2 diabetes with hypoglycemia recurrent episodes on admission no resolved HbA1c of 6.2 hold Lantus for now (Was on 45 units BID!) POC glucose, diabetic diet Humalog on sliding scale consider PO Metformin on discharge chronic pain disorder continue methadone-follows with [facility] paroxysmal atrial fibrillation not on anticoagulation continue diltiazem hypertension continue diltiazem chronic normocytic anemia likely related to chronic disease H/H above transfusion threshold, baseline DVT prophylaxis-heparin Full code DISPO: Patient lost insurance 04/09. CM working on restarting it so he can be placed at SNF. Patient requires inpatient stay overnight for management of bilateral lower extremity cellulitis with infected extremity ulcers and RLE Osteomyelitis requiring IV antibiotics. Quality Stroke Does the patient have a stroke diagnosis?: No VTE Prior VTE?: No VTE Risk Level:: Medical - moderate - high VTE Device Contraindication: Treatment Not Indicated VTE Drug Contraindication: N/A - Med Ordered
[2024-04-24 16:21] LABS: Glucose, Whole Blood 169 mg/dL (60-115)
[2024-04-24 19:54] LABS: Glucose, Whole Blood 175 mg/dL (60-115)
[2024-04-24] MEDS: Amitriptyline HCl 50 MG TABLET PO (20:39)
[2024-04-24] MEDS: 0.9 % Sodium Chloride Flush 3 ML SYRINGE IVFLUSH (20:40)
--- NOTE | 2024-04-25 00:37 | PC.NURSE ---
This RN assumed care at 1900, Pt AOx3, denies pain, Respirations even and unlabored, Ulcers to L TMA, & R BKA, & L shoulder are covered with DSG, all are CDI. BSx4 no pain with palpation, LBM: 04/23. Pt uses urinal at bedside. Double lumen PICC line MOUSTAPHA, patent/dry and intact. Pt sitting in recliner, calm/cooperative with no apparent distress. Call rodríguez within reach.
[2024-04-25 03:30] VITALS: BP 168/79; PULSE 82; RESP 16; TEMP 36.3; O2SAT 97
[2024-04-25 07:16] VITALS: BP 152/78; PULSE 83; RESP 18; TEMP 36.2; O2SAT 95
[2024-04-25 07:30] LABS: Glucose, Whole Blood 140 mg/dL (60-115)
[2024-04-25 08:01] LABS: Creatinine Clr Calc Pharmacy 76.8; Estimated Glomerular Filt Rate > 60
[2024-04-25] MEDS: hydrALAZINE HCl 50 MG TABLET PO ×3 (08:15→20:51)
[2024-04-25] MEDS: dilTIAZem HCL CD 180 MG CAP.ER.24H PO (08:15)
[2024-04-25] MEDS: Nicotine 7 MG PATCH.TD24 TRANSDERMA (08:15)
[2024-04-25] MEDS: Heparin Sodium,Porcine 5,000 UNIT/ML VIAL 5000 UNIT SUBCUT ×2 (08:16→20:52)
[2024-04-25] MEDS: methADONE HCl 20 MG/2 ML ORAL.CONC 80 MG PO (08:16)
--- NOTE | 2024-04-25 09:46 | P.PNIM_ITS ---
Subjective Subjective Date of Service: 04/25/24 Interval History: Seen in f/u OM, s/p r jarod, doing well otherwise. Physical Exam 2 Vital Signs: Vital Signs: Last Vital Signs Temp 97.1 F 04/25/24 07:16 Pulse 83 04/25/24 07:16 Resp 18 04/25/24 07:16 BP 152/78 H 04/25/24 07:16 Pulse Ox 95 04/25/24 07:16 O2 Del Method Room Air 04/25/24 07:16 BMI result Body Mass Index 31.3 Const: Other: Constitutional : Awake, interactive, not in distress Neck : Normal inspection, Supple Cardiovascular : RRR, no JVP, no lower extremity edema Respiratory : good bilateral air entry, no crackles, wheezes or rhonchi Gastrointestinal: soft, lax, Normal bowel sounds, Non tender Skin : Warm, Dry, Extremities: LLE transmetatarsal amputation, RLE BKA with open wound at base of stump with no significant erythema covered with dressing Neurological : Alert & oriented x3, No focal deficit Objective Data Active Medications Acetaminophen (Acetaminophen 325 Mg Tablet) 650 mg PO Q6H PRN PRN Reason: Pain, Mild (Pain Scale 1-3) Last Admin: 04/17/24 03:28 Dose: 650 mg Documented By: BERNICE Amitriptyline HCl (Amitriptyline Hcl 50 Mg Tablet) 50 mg PO BEDTIME [facility] Last Admin: 04/24/24 20:39 Dose: 50 mg Documented By: ALISON Diltiazem HCl (Diltiazem Hcl Cd 180 Mg Cap.Er.24h) 180 mg PO DAILY [facility]; Protocol Last Admin: 04/25/24 08:15 Dose: 180 mg Documented By: MARISA Glucose (Glucose Gel 15 Gm Gel..Gram.) 15 gm PO Q15M PRN; Protocol PRN Reason: per Hypoglycemia Standing Ord. Last Admin: 04/10/24 06:26 Dose: 15 gm Documented By: DEE Heparin Sodium (Porcine) (Heparin Sodium,Porcine 5,000 Unit/Ml Vial) 5,000 unit SUBCUT Q12H [facility] Last Admin: 04/25/24 08:16 Dose: 5,000 unit Documented By: MARISA Hydralazine HCl (Hydralazine Hcl 50 Mg Tablet) 50 mg PO TID [facility]; Protocol Last Admin: 04/25/24 08:15 Dose: 50 mg Documented By: MARISA Dextrose (D10) 250 mls @ 750 mls/hr IV Q15M PRN; Protocol PRN Reason: per Hypoglycemia Standing Ord. Vancomycin HCl 1,500 mg/ (Sodium Chloride) 500 mls @ 333.333 mls/hr IV Q24H [facility] Last Infusion: 04/24/24 13:10 Dose: Infused Documented By: AYESHA Insulin Human Lispro (Insulin Lispro 100 Unit/Ml 3 Ml Vial) 0 unit SUBCUT QIDACHS [facility]; Protocol Last Admin: 04/25/24 07:56 Dose: Not Given Documented By: MARISA Non-Admin Reason: No Insulin Coverage Magnesium Hydroxide (Milk Of Magnesia 30 Ml Oral.Susp) 30 ml PO DAILY PRN PRN Reason: Constipation Methadone HCl (Methadone Hcl 20 Mg/2 Ml Oral.Conc) 80 mg PO DAILY [facility] Last Admin: 04/25/24 08:16 Dose: 80 mg Documented By: MARISA Nicotine (Nicotine 7 Mg Patch.Td24) 7 mg TRANSDERMA DAILY [facility] Last Admin: 04/25/24 08:15 Dose: 7 mg Documented By: MARISA Ondansetron HCl (Ondansetron Hcl 4 Mg/2 Ml Vial) 4 mg IVPUSH Q8H PRN PRN Reason: Nausea and Vomiting Pharmacy Consult (Consult Rx Vancomycin Dosing) 1 each MISCELLANE DAILY PRN PRN Reason: Consult order Sodium Chloride (0.9 % Sodium Chloride Flush 3 Ml Syringe) 3 ml IVFLUSH QSHIFT [facility] Last Admin: 04/25/24 08:16 Dose: Not Given Documented By: MARISA Non-Admin Reason: PICC Sodium Chloride (0.9 % Sodium Chloride Flush 10 Ml Syringe) 5 ml IVFLUSH TID [facility] Last Admin: 04/24/24 20:46 Dose: 5 ml Documented By: FAUSTOV Labs 04/20/24 05:19 04/25/24 05:35 Labs: Laboratory Results - last 24 hr 04/24/24 04/24/24 04/24/24 10:46 11:15 16:07 Hold Purple Top Estim Creat Clear Calc Estimated GFR POC Glucose 210 H 169 H Random Vancomycin 16.6 04/24/24 04/25/24 04/25/24 19:18 05:35 07:15 Hold Purple Top SEE NOTE Estim Creat Clear Calc 76.8 Estimated GFR > 60 POC Glucose 175 H 140 H Random Vancomycin Assessment and Plan (1) Bilateral lower leg cellulitis: Status: Acute (2) Acute osteomyelitis: Status: Acute Plan 63 yo wheelchair bound male with history of diabetes, PVD s/p right BKA 09/2023, chronic pain on methadone, history of left ankle/foot osteomyelitis with hx TMA, atrial fibrillation not on anticoagulation, HTN, hepatitis C s/p treatment in 2009 admitted for further management of infected unstageable ulcer R BKA stump with bilateral cellulitis. acute Rt BKA stump osteomyelitis r/t PVD with bilateral cellulitis and ulcers infection XR shows evidence of osteomyelitis R tibia, wound culture MRSA negative cultures continue IV vancomycin (initiated 04/09) pain management p.r.n. general surgery rec local care Infectious Disease rec 6 weeks IV Ertapenem (end may 20, 2024) follow Vanco trough PICC in place Multiple superficial stage 2 non pressure ulcers left lower leg with cellulitis treat with antibiotics and wound care nurse insulin-dependent type 2 diabetes with hypoglycemia recurrent episodes on admission no resolved HbA1c of 6.2 hold Lantus for now (Was on 45 units BID!) POC glucose, diabetic diet Humalog on sliding scale consider PO Metformin on discharge chronic pain disorder continue methadone-follows with [facility] paroxysmal atrial fibrillation not on anticoagulation continue diltiazem hypertension continue diltiazem chronic normocytic anemia likely related to chronic disease H/H above transfusion threshold, baseline DVT prophylaxis-heparin Full code DISPO: Patient lost insurance 04/09. CM working on restarting it so he can be placed at SNF. Patient requires inpatient stay overnight for management of bilateral lower extremity cellulitis with infected extremity ulcers and RLE Osteomyelitis requiring IV antibiotics. dc likely friday 04/27 Quality Stroke Does the patient have a stroke diagnosis?: No VTE Prior VTE?: No VTE Risk Level:: Medical - moderate - high VTE Device Contraindication: Treatment Not Indicated VTE Drug Contraindication: N/A - Med Ordered
[2024-04-25 09:50] LABS: Vancomycin Random 17.3 mcg/mL (15-20)
[2024-04-25 10:03] LABS: Anion Gap 14 (12-20); Carbon Dioxide 27 mmol/L (22-29); Chloride 98 mmol/L (96-108); Sodium 134 mmol/L (135-145)
--- NOTE | 2024-04-25 10:10 | HE.PHANOTE ---
re vanco dosing continue on current dose. renal function slightly fluctuating but vanco levels are consistent. next trough 04/26 @0900
[2024-04-25] MEDS: 0.9 % Sodium Chloride Flush 10 ML SYRINGE 5 ML IVFLUSH ×3 (10:52→20:57)
[2024-04-25] MEDS: vancomycin HCL 1,500 MG in 0.9 % Sodium Chloride 500 ML 333.33 MG IV (10:52)
[2024-04-25 11:15] LABS: Glucose, Whole Blood 201 mg/dL (60-115)
[2024-04-25] MEDS: Insulin Lispro 100 UNIT/ML 3 ML VIAL SUBCUT ×2 (11:37→20:52)
[2024-04-25 15:54] VITALS: BP 184/88; PULSE 73; RESP 14; TEMP 36.1; O2SAT 99
[2024-04-25 16:36] LABS: Glucose, Whole Blood 133 mg/dL (60-115)
--- NOTE | 2024-04-25 19:30 | PC.NURSE ---
This RN assumed car at 1900, Pt AOx3 denies pain, pt sitting in recliner, respirations even and unlabored, lungs clear. BSx4 no pain with palpation. Diabetic ulcers bilateral to lower extremities, dsg's in place, CDI. Pt is calm/cooperative with no signs of distress.
[2024-04-25 20:00] VITALS: BP 144/66; PULSE 75; RESP 16; TEMP 36; O2SAT 96
[2024-04-25 20:51] VITALS: BP 144/66
[2024-04-25] MEDS: Amitriptyline HCl 50 MG TABLET PO (20:51)
[2024-04-25] MEDS: 0.9 % Sodium Chloride Flush 3 ML SYRINGE IVFLUSH (20:57)
[2024-04-25 21:23] LABS: Glucose, Whole Blood 156 mg/dL (60-115)
[2024-04-26] VITALS (7 sets, daily range): BP systolic 136–187; BP diastolic 69–82; PULSE 64–74; RESP 14–18; TEMP 36–36.6; O2SAT 95–99
[2024-04-26 06:05] LABS: Creatinine Clr Calc Pharmacy 76.8; Estimated Glomerular Filt Rate > 60
[2024-04-26 07:38] LABS: Glucose, Whole Blood 128 mg/dL (60-115)
[2024-04-26] MEDS: dilTIAZem HCL CD 180 MG CAP.ER.24H PO (08:19)
[2024-04-26] MEDS: hydrALAZINE HCl 50 MG TABLET PO ×3 (08:19→20:50)
[2024-04-26] MEDS: Nicotine 7 MG PATCH.TD24 TRANSDERMA (08:19)
[2024-04-26] MEDS: Heparin Sodium,Porcine 5,000 UNIT/ML VIAL 5000 UNIT SUBCUT ×2 (08:20→20:49)
[2024-04-26] MEDS: methADONE HCl 20 MG/2 ML ORAL.CONC 80 MG PO (08:20)
--- NOTE | 2024-04-26 08:41 | P.PNIM_ITS ---
Subjective Subjective Date of Service: 04/26/24 Interval History: Seen in f/u for OM, s/p r jarod, recovering well, no new issues Physical Exam 2 Vital Signs: Vital Signs: Last Vital Signs Temp 97.8 F 04/26/24 07:17 Pulse 65 04/26/24 08:19 Resp 14 04/26/24 07:17 BP 143/71 H 04/26/24 08:19 Pulse Ox 97 04/26/24 07:17 O2 Del Method Room Air 04/26/24 07:17 BMI result Body Mass Index 31.3 Const: Other: Constitutional : Awake, interactive, not in distress Neck : Normal inspection, Supple Cardiovascular : RRR, no JVP, no lower extremity edema Respiratory : good bilateral air entry, no crackles, wheezes or rhonchi Gastrointestinal: soft, lax, Normal bowel sounds, Non tender Skin : Warm, Dry, Extremities: LLE transmetatarsal amputation, RLE BKA with open wound at base of stump with no significant erythema covered with dressing Neurological : Alert & oriented x3, No focal deficit Objective Data Active Medications Acetaminophen (Acetaminophen 325 Mg Tablet) 650 mg PO Q6H PRN PRN Reason: Pain, Mild (Pain Scale 1-3) Last Admin: 04/17/24 03:28 Dose: 650 mg Documented By: BERNICE Amitriptyline HCl (Amitriptyline Hcl 50 Mg Tablet) 50 mg PO BEDTIME [facility] Last Admin: 04/25/24 20:51 Dose: 50 mg Documented By: ALISON Diltiazem HCl (Diltiazem Hcl Cd 180 Mg Cap.Er.24h) 180 mg PO DAILY [facility]; Protocol Last Admin: 04/26/24 08:19 Dose: 180 mg Documented By: MARISA Glucose (Glucose Gel 15 Gm Gel..Gram.) 15 gm PO Q15M PRN; Protocol PRN Reason: per Hypoglycemia Standing Ord. Last Admin: 04/10/24 06:26 Dose: 15 gm Documented By: DEE Heparin Sodium (Porcine) (Heparin Sodium,Porcine 5,000 Unit/Ml Vial) 5,000 unit SUBCUT Q12H [facility] Last Admin: 04/26/24 08:20 Dose: 5,000 unit Documented By: MARISA Hydralazine HCl (Hydralazine Hcl 50 Mg Tablet) 50 mg PO TID [facility]; Protocol Last Admin: 04/26/24 08:19 Dose: 50 mg Documented By: MARISA Dextrose (D10) 250 mls @ 750 mls/hr IV Q15M PRN; Protocol PRN Reason: per Hypoglycemia Standing Ord. Vancomycin HCl 1,500 mg/ (Sodium Chloride) 500 mls @ 333.333 mls/hr IV Q24H [facility] Last Infusion: 04/25/24 12:52 Dose: Infused Documented By: MARISA Insulin Human Lispro (Insulin Lispro 100 Unit/Ml 3 Ml Vial) 0 unit SUBCUT QIDACHS [facility]; Protocol Last Admin: 04/26/24 07:59 Dose: Not Given Documented By: MARISA Non-Admin Reason: No Insulin Coverage Magnesium Hydroxide (Milk Of Magnesia 30 Ml Oral.Susp) 30 ml PO DAILY PRN PRN Reason: Constipation Methadone HCl (Methadone Hcl 20 Mg/2 Ml Oral.Conc) 80 mg PO DAILY [facility] Last Admin: 04/26/24 08:20 Dose: 80 mg Documented By: MARISA Nicotine (Nicotine 7 Mg Patch.Td24) 7 mg TRANSDERMA DAILY [facility] Last Admin: 04/26/24 08:19 Dose: 7 mg Documented By: MARISA Ondansetron HCl (Ondansetron Hcl 4 Mg/2 Ml Vial) 4 mg IVPUSH Q8H PRN PRN Reason: Nausea and Vomiting Pharmacy Consult (Consult Rx Vancomycin Dosing) 1 each MISCELLANE DAILY PRN PRN Reason: Consult order Sodium Chloride (0.9 % Sodium Chloride Flush 3 Ml Syringe) 3 ml IVFLUSH QSHIFT [facility] Last Admin: 04/26/24 08:20 Dose: Not Given Documented By: MARISA Non-Admin Reason: PICC Sodium Chloride (0.9 % Sodium Chloride Flush 10 Ml Syringe) 5 ml IVFLUSH TID [facility] Last Admin: 04/25/24 20:57 Dose: 5 ml Documented By: ORLANDV Labs 04/20/24 05:19 04/26/24 05:34 Labs: Laboratory Results - last 24 hr 04/25/24 04/25/24 04/25/24 05:35 09:18 11:12 Hold Purple Top Anion Gap 14 Estim Creat Clear Calc Estimated GFR POC Glucose 201 H Random Vancomycin 17.3 0604/25/24 04/26/24 16:32 20:42 05:34 Hold Purple Top Anion Gap Estim Creat Clear Calc 76.8 Estimated GFR > 60 POC Glucose 133 H 156 H Random Vancomycin 04/26/24 04/26/24 05:40 07:19 Hold Purple Top SEE NOTE Anion Gap Estim Creat Clear Calc Estimated GFR POC Glucose 128 H Random Vancomycin Assessment and Plan (1) Bilateral lower leg cellulitis: Status: Acute (2) Acute osteomyelitis: Status: Acute Plan 63 yo wheelchair bound male with history of diabetes, PVD s/p right BKA 09/2023, chronic pain on methadone, history of left ankle/foot osteomyelitis with hx TMA, atrial fibrillation not on anticoagulation, HTN, hepatitis C s/p treatment in 2009 admitted for further management of infected unstageable ulcer R BKA stump with bilateral cellulitis. acute Rt BKA stump osteomyelitis r/t PVD with bilateral cellulitis and ulcers infection XR shows evidence of osteomyelitis R tibia, wound culture MRSA continue IV vancomycin (initiated 04/09) pain management p.r.n. general surgery rec local care Infectious Disease rec 6 weeks IV Ertapenem (end may 20, 2024) follow Vanco levels PICC in place Multiple superficial stage 2 non pressure ulcers left lower leg with cellulitis treat with antibiotics and wound care nurse insulin-dependent type 2 diabetes with hypoglycemia on admssion, A1C 6.2, -supposed to be on Lantus 45 bid. -Blood Sugars have been ok with sliding scale only -add Metformin 500 bid and continue holding Lantus chronic pain disorder continue methadone-follows with [facility] paroxysmal atrial fibrillation not on anticoagulation continue diltiazem hypertension continue diltiazem chronic normocytic anemia likely related to chronic disease H/H above transfusion threshold, baseline DVT prophylaxis-heparin Full code DISPO: Patient lost insurance 04/09. CM working on restarting it so he can be placed at SNF. Patient requires inpatient stay overnight for management of bilateral lower extremity cellulitis with infected extremity ulcers and RLE Osteomyelitis requiring IV antibiotics. dc likely friday 04/27 Quality Stroke Does the patient have a stroke diagnosis?: No VTE Prior VTE?: No VTE Risk Level:: Medical - moderate - high VTE Device Contraindication: Treatment Not Indicated VTE Drug Contraindication: N/A - Med Ordered
[2024-04-26 08:55] LABS: MANUAL DIFF FLAG NO
[2024-04-26 09:02] LABS: Basophils Absolute Auto 0.1 X10*3/uL (0.0-0.2); Basophils Percent Auto 0.5 % (0-2); Eosinophils Absolute Auto 0.4 X10*3/uL (0.0-0.4); Eosinophils Percent Auto 3.5 % (0-4); Hematocrit 26.5 % (42.0-52.0); Hemoglobin 8.3 g/dl (14.0-18.0); Imm Gran Abs Auto 0.04 X10*3/uL (0.00-0.03); Imm Gran Pct Auto 0.4 % (0.0-0.4); Mean Corpuscular HGB Conc 31.3 g/dl (31.0-36.0); Mean Corpuscular Hemoglobin 25.5 pg (27.0-33.0); Mean Corpuscular Volume 81.5 fL (80.0-98.0); Mean Platelet Volume 10.1 fL (9.4-12.4); Monocytes Absolute Auto 0.8 X10*3/uL (0.1-1.2); Monocytes Percent Auto 7.8 % (2-11); Neutrophils Absolute Auto 6.9 x10*3/uL (2.0-8.3); Neutrophils Percent Auto 67.8 % (45-73); Platelet Count 401 X10*3/uL (160-400); Red Blood Count 3.25 X10*6/uL (4.60-5.80); Red Cell Distribution Width 14.1 % (11.0-16.0); White Blood Count 10.2 X10*3/uL (4.8-10.8)
[2024-04-26 11:19] LABS: Glucose, Whole Blood 181 mg/dL (60-115)
[2024-04-26] MEDS: 0.9 % Sodium Chloride Flush 10 ML SYRINGE 5 ML IVFLUSH ×3 (12:01→20:50)
[2024-04-26] MEDS: metFORMIN HCl 500 MG TABLET PO ×2 (12:01→16:25)
[2024-04-26] MEDS: Insulin Lispro 100 UNIT/ML 3 ML VIAL SUBCUT ×2 (12:02→20:49)
[2024-04-26] MEDS: vancomycin HCL 1,500 MG in 0.9 % Sodium Chloride 500 ML 333.33 MG IV (12:02)
[2024-04-26 16:11] LABS: Glucose, Whole Blood 113 mg/dL (60-115)
[2024-04-26 20:31] LABS: Glucose, Whole Blood 158 mg/dL (60-115)
[2024-04-26] MEDS: Amitriptyline HCl 50 MG TABLET PO (20:49)
[2024-04-27] VITALS (7 sets, daily range): BP systolic 147–187; BP diastolic 66–86; PULSE 67–73; RESP 15–18; TEMP 35.5–36.1; O2SAT 97–99
[2024-04-27] MEDS: hydrALAZINE HCl 20 MG/ML VIAL 10 MG IVPUSH (00:22)
--- NOTE | 2024-04-27 00:33 | PC.NURSE ---
high BP 186/80, 187/82, no pain. Dr Herminio chan , Hydralazine IV 10 mg one dose ordered and given. Rechecked BP 147/70. next check at 0400.
[2024-04-27 07:12] LABS: Glucose, Whole Blood 189 mg/dL (60-115)
[2024-04-27] MEDS: Insulin Lispro 100 UNIT/ML 3 ML VIAL SUBCUT ×2 (07:54→12:15)
[2024-04-27] MEDS: Nicotine 7 MG PATCH.TD24 TRANSDERMA (07:54)
[2024-04-27] MEDS: hydrALAZINE HCl 50 MG TABLET PO ×2 (07:55→15:48)
[2024-04-27] MEDS: methADONE HCl 20 MG/2 ML ORAL.CONC 80 MG PO (07:55)
[2024-04-27] MEDS: metFORMIN HCl 500 MG TABLET PO ×2 (07:55→16:52)
[2024-04-27] MEDS: dilTIAZem HCL CD 180 MG CAP.ER.24H PO (07:55)
[2024-04-27] MEDS: 0.9 % Sodium Chloride Flush 10 ML SYRINGE 5 ML IVFLUSH ×2 (07:56→15:49)
[2024-04-27] MEDS: Heparin Sodium,Porcine 5,000 UNIT/ML VIAL 5000 UNIT SUBCUT (07:56)
--- NOTE | 2024-04-27 09:12 | MHC.CM.PN ---
Addendum entered by Oxana Ballesteros 04/27/24 15:56: [facility] HAS AUTH, LAST DOSE AND DCS WITH LESS THAN 30 ATTACHED. TRANSPORT BOOKED FOR 1700 HOURS WITH EVELINE LAU Original Note: PT HAS BEEN MEDICALLY CLEAR TO DC TO STR SINCE SATURDAY, HOWEVER SNF UNABLE TO ACCEPT UNTIL INSURANCE AUTH WAS OBTAINED AND GUEST DOSING WAS SET UP WITH [facility] IN [place] MAGUI SPOKE TO SHERRY AT [facility] THIS MORNING, SHE CONFIRMS THEY HAVE PTS INFORMATION AND COULD START DOSING HIM TOMORROW PENDING LAST DOSE LETTER AND DCS ARE SENT TODAY. MESSAGE LEFT FOR LISA AT [facility] REQUESTING AN UPDATE ON AUTH STATUS
[2024-04-27 09:32] LABS: Vancomycin Random 18.7 mcg/mL (15-20)
[2024-04-27 09:34] LABS: Creatinine Clr Calc Pharmacy 92.4; Estimated Glomerular Filt Rate > 60
--- NOTE | 2024-04-27 09:50 | HE.PHANOTE ---
RE: VANCO DOSING Random came back as 18.7, will continue with dose of 1500 mg q24h. Next random is scheduled for 04/28/24 @0900.
[2024-04-27] MEDS: vancomycin HCL 1,500 MG in 0.9 % Sodium Chloride 500 ML 333.33 MG IV (10:54)
[2024-04-27 11:04] LABS: Glucose, Whole Blood 177 mg/dL (60-115)
--- NOTE | 2024-04-27 11:24 | P.PNIM_ITS ---
Subjective Subjective Date of Service: 04/27/24 Interval History: Seen in f/u for OM, s/p r bka, recovering well, no new issues still awaiting rehab bed, no new issues Physical Exam 2 Vital Signs: Vital Signs: Last Vital Signs Temp 96 F L 04/27/24 07:09 Pulse 67 04/27/24 07:09 Resp 18 04/27/24 07:09 BP 162/72 H 04/27/24 07:09 Pulse Ox 99 04/27/24 07:09 O2 Del Method Room Air 04/27/24 07:09 BMI result Body Mass Index 31.3 Const: Other: Constitutional : Awake, interactive, not in distress Neck : Normal inspection, Supple Cardiovascular : RRR, no JVP, no lower extremity edema Respiratory : good bilateral air entry, no crackles, wheezes or rhonchi Gastrointestinal: soft, lax, Normal bowel sounds, Non tender Skin : Warm, Dry, Extremities: LLE transmetatarsal amputation, RLE BKA with open wound at base of stump with no significant erythema covered with dressing Neurological : Alert & oriented x3, No focal deficit Objective Data Active Medications Acetaminophen (Acetaminophen 325 Mg Tablet) 650 mg PO Q6H PRN PRN Reason: Pain, Mild (Pain Scale 1-3) Last Admin: 04/17/24 03:28 Dose: 650 mg Documented By: BERNICE Amitriptyline HCl (Amitriptyline Hcl 50 Mg Tablet) 50 mg PO BEDTIME [facility] Last Admin: 04/26/24 20:49 Dose: 50 mg Documented By: SAMIRA Diltiazem HCl (Diltiazem Hcl Cd 180 Mg Cap.Er.24h) 180 mg PO DAILY [facility]; Protocol Last Admin: 04/27/24 07:55 Dose: 180 mg Documented By: MARISA Glucose (Glucose Gel 15 Gm Gel..Gram.) 15 gm PO Q15M PRN; Protocol PRN Reason: per Hypoglycemia Standing Ord. Last Admin: 04/10/24 06:26 Dose: 15 gm Documented By: DEE Heparin Sodium (Porcine) (Heparin Sodium,Porcine 5,000 Unit/Ml Vial) 5,000 unit SUBCUT Q12H [facility] Last Admin: 04/27/24 07:56 Dose: 5,000 unit Documented By: MARISA Hydralazine HCl (Hydralazine Hcl 50 Mg Tablet) 50 mg PO TID [facility]; Protocol Last Admin: 04/27/24 07:55 Dose: 50 mg Documented By: MARISA Dextrose (D10) 250 mls @ 750 mls/hr IV Q15M PRN; Protocol PRN Reason: per Hypoglycemia Standing Ord. Vancomycin HCl 1,500 mg/ (Sodium Chloride) 500 mls @ 333.333 mls/hr IV Q24H [facility] Last Admin: 04/27/24 10:54 Dose: 333.33 mls/hr Documented By: MARISA Insulin Human Lispro (Insulin Lispro 100 Unit/Ml 3 Ml Vial) 0 unit SUBCUT QIDACHS [facility]; Protocol Last Admin: 04/27/24 07:54 Dose: 2 unit Documented By: MARISA Magnesium Hydroxide (Milk Of Magnesia 30 Ml Oral.Susp) 30 ml PO DAILY PRN PRN Reason: Constipation Metformin HCl (Metformin Hcl 500 Mg Tablet) 500 mg PO BIDWM [facility] Last Admin: 04/27/24 07:55 Dose: 500 mg Documented By: MARISA Methadone HCl (Methadone Hcl 20 Mg/2 Ml Oral.Conc) 80 mg PO DAILY [facility] Last Admin: 04/27/24 07:55 Dose: 80 mg Documented By: MARISA Nicotine (Nicotine 7 Mg Patch.Td24) 7 mg TRANSDERMA DAILY [facility] Last Admin: 04/27/24 07:54 Dose: 7 mg Documented By: MARISA Ondansetron HCl (Ondansetron Hcl 4 Mg/2 Ml Vial) 4 mg IVPUSH Q8H PRN PRN Reason: Nausea and Vomiting Pharmacy Consult (Consult Rx Vancomycin Dosing) 1 each MISCELLANE DAILY PRN PRN Reason: Consult order Sodium Chloride (0.9 % Sodium Chloride Flush 3 Ml Syringe) 3 ml IVFLUSH QSHIFT [facility] Last Admin: 04/27/24 07:56 Dose: Not Given Documented By: MARISA Non-Admin Reason: PICC Sodium Chloride (0.9 % Sodium Chloride Flush 10 Ml Syringe) 5 ml IVFLUSH TID [facility] Last Admin: 04/27/24 07:56 Dose: 5 ml Documented By: MARISA Labs 04/26/24 05:40 04/27/24 08:56 Labs: Laboratory Results - last 24 hr 04/26/24 04/26/2404/27/24 16:02 20:27 07:09 Estim Creat Clear Calc Estimated GFR POC Glucose 113 158 H 189 H Random Vancomycin 04/27/24 04/27/24 08:56 11:01 Estim Creat Clear Calc 92.4 Estimated GFR > 60 POC Glucose 177 H Random Vancomycin 18.7 Assessment and Plan (1) Bilateral lower leg cellulitis: Status: Acute (2) Acute osteomyelitis: Status: Acute Plan 63 yo wheelchair bound male with history of diabetes, PVD s/p right BKA 09/2023, chronic pain on methadone, history of left ankle/foot osteomyelitis with hx TMA, atrial fibrillation not on anticoagulation, HTN, hepatitis C s/p treatment in 2009 admitted for further management of infected unstageable ulcer R BKA stump with bilateral cellulitis. acute Rt BKA stump osteomyelitis r/t PVD with bilateral cellulitis and ulcers infection XR shows evidence of osteomyelitis R tibia, wound culture MRSA continue IV vancomycin (initiated 04/09) pain management p.r.n. general surgery rec local care Infectious Disease rec 6 weeks IV Ertapenem (end may 20, 2024) follow Vanco levels PICC in place Multiple superficial stage 2 non pressure ulcers left lower leg with cellulitis treat with antibiotics and wound care nurse insulin-dependent type 2 diabetes with hypoglycemia on admssion, A1C 6.2, -supposed to be on Lantus 45 bid. -Blood Sugars have been ok with sliding scale only -add Metformin 500 bid and continue holding Lantus chronic pain disorder continue methadone-follows with [facility] paroxysmal atrial fibrillation not on anticoagulation continue diltiazem hypertension continue diltiazem chronic normocytic anemia likely related to chronic disease H/H above transfusion threshold, baseline DVT prophylaxis-heparin Full code DISPO: Patient lost insurance 04/09. CM working on restarting it so he can be placed at SNF. Patient requires inpatient stay overnight for management of bilateral lower extremity cellulitis with infected extremity ulcers and RLE Osteomyelitis requiring IV antibiotics. dc likely when bed available Quality Stroke Does the patient have a stroke diagnosis?: No VTE Prior VTE?: No VTE Risk Level:: Medical - moderate - high VTE Device Contraindication: Treatment Not Indicated VTE Drug Contraindication: N/A - Med Ordered
--- NOTE | 2024-04-27 15:22 | P.DS_ITS ---
DS: Providers Provider Date of Service: 04/27/24 Date of admission: 04/09/24 18:05 Primary care physician: CHANEL Bustamante Consults: 04/09/24 18:14 Consult to General Surgery Routine Consulting Provider: [facility] General Surgeons Reason for consultation: osteomyelitis, infected ulcers Consult to Infectious Diseases Routine Consulting Provider: [facility] Reason for consultation: osteomyelitis, b/l cellulitis 04/09/24 18:35 Consult to Wound Care Routine Reason for consultation: R BKA stump ulcer, multiple shallow ulcerations LLE 04/20/24 08:02 Consult to Wound Care Routine Reason for consultation: left shoulder wound ,right stump wound,left lower leg wound' DS: Diagnosis Discharge Diagnosis (1) Bilateral lower leg cellulitis: Status: Acute (2) Acute osteomyelitis: Status: Acute DS: Summary Hospital Course Hospital Course: admission hpi Chief Complaint: ams 63 yo wheelchair bound male with history of diabetes, PVD s/p right BKA 09/2023, chronic pain on methadone, history of left ankle/foot osteomyelitis with hx TMA, atrial fibrillation not on anticoagulation, HTN, hepatitis C s/p treatment in 2009 who presents to the ER from home via EMS for evaluation of altered mental status. Patient was reportedly found to be disoriented and confused by his daughter. He lives home alone and gets VNA services. States he does not yet have prosthetic device for right BKA. He states he is compliant with medications and test worker help him to monitor. He is alert and oriented to self, place, and situation, but disoriented to time. Unable to tell me the date or year. He is a limited historian and much of the history is obtained from ED provider report and daughter's report. He is reporting 08/20 in the ble. Reports he follows with Dr. Cannon for his wounds (appears was last seen 10/2023) but does not follow with wound care. He did report urinary odor and oranage appearance to ed provider but is a limited historian on my exam. He has not yet been able to provide a urine sample. Per ED report, no dysuria, hematuria, urgency/frequency. On arrival, VSS though hypertensive to 167/85 on admission. There is a leukocytosis of 12.5. He has a stable normocytic anemia with H/H 9.7/31.2%. Renal function electrolyte levels normal except for hypokalemia of 3.1. On arrival, glucose 50 improved to 79. Lactic acid 1.1. CRP 7.52, ESR 102. X-ray of the right tibia/fibula shows acute osteomyelitis about the distal tibia of the stump. There is no definitive plain film evidence of acute osteomyelitis of the left foot or left tibia/fibula. Wound culture R BKA stump pending. In the ED, has been given IV fluids, IV cefepime, and 40 mEq potassium chloride. Hospital course: 63 yo wheelchair bound male with history of diabetes, PVD s/p right BKA 09/2023, chronic pain on methadone, history of left ankle/foot osteomyelitis with hx TMA, atrial fibrillation not on anticoagulation, HTN, hepatitis C s/p treatment in 2009 admitted for further management of infected unstageable ulcerof R BKA stump with bilateral cellulitis. Acute Right BKA stump osteomyelitis (OM) related PVD, and cellulitis. OM was noted on xray. Cultures have been negative. Was seen by general surgery with recommendation for local wound care. He has been on Vancomycin since 04/09/24. ID recommends Ertapenem for a total of 6 weeks ending May 20. He has a PICC lline. He will finished antibiotics at SNF for less 30 dayss Multiple superficial stage 2 non pressure ulcers left lower leg with cellulitis, treating with antibiotics as above and local wound care. insulin-dependent type 2 diabetes with hypoglycemia, Hypoglycemia resolved and diabetes is controlled on sliding scale and oral metformin, previously was s upposed to be on Lantus 45 but has not needed this. chronic pain disorder continue methadone- paroxysmal atrial fibrillation not on anticoagulation continue diltiazem hypertension continue diltiazem chronic normocytic anemia likely related to chronic disease H/H above transfusion threshold, baseline To short term rehab for less than 30 days Time Attestation Discharge Coordination Time (in mins): 45 Quality: Safe Use of Opioids Does Pt have an Active Cancer Diagnosis on the Problem List?: No Quality: Stroke Does the patient have a stroke diagnosis?: No Physical Exam Vital Signs: Vital Signs: Last Vital Signs Temp 96 F L 04/27/24 07:09 Pulse 67 04/27/24 07:09 Resp 18 04/27/24 07:09 BP 162/72 H 04/27/24 07:09 Pulse Ox 99 04/27/24 07:09 O2 Del Method Room Air 04/27/24 07:09 BMI result Body Mass Index 31.3 Const: Other: Constitutional : Awake, interactive, not in distress Neck : Normal inspection, Supple Cardiovascular : RRR, no JVP, no lower extremity edema Respiratory : good bilateral air entry, no crackles, wheezes or rhonchi Gastrointestinal: soft, lax, Normal bowel sounds, Non tender Skin : Warm, Dry, Extremities: LLE transmetatarsal amputation, RLE BKA with open wound at base of stump with no significant erythema covered with dressing Neurological : Alert & oriented x3, No focal deficit DS: Data Data Completed and Pending Completed studies during hospitalization [Text1]: Procedures Detachment at Right Lower Leg, High, Open Approach (03/03/23) Labs on day of discharge: Laboratory Results - last 24 hr 04/26/24 04/26/24 04/27/24 16:02 20:27 07:09 Creatinine Estim Creat Clear Calc Estimated GFR POC Glucose 113 158 H 189 H Random Vancomycin 04/27/24 04/27/24 08:56 11:01 Creatinine 0.89 Estim Creat Clear Calc 92.4 Estimated GFR > 60 POC Glucose 177 H Random Vancomycin 18.7 Discharge Plan Discharge Anticipated Discharge Date/Time: 04/27/24 15:23 Patient Disposition: Xfer SNF Discharge Diagnosis: bilateral lower extremities cellulitis, Hypoglycemia Referrals: [facility] [Outside] Liliana Panda FNP [Primary Care Provider] - 1 Week Discharge Medications: New insulin lispro [Admelog U-100 Insulin lispro] 100 unit/mL Solution See Protocol subcut QIDACHS Qty: 10 0RF Protocol: Insulin Correction Scale Less than or equal to 110 ---- Give (units): 0 111 to 150 Give (units): 0 151 to 200 Give (units): 2 201 to 250 Give (units): 4 251 to 300 Give (units): 6 301 to 350 Give (units): 8 Greater than 350 Give (units): 10 Call MD if Blood Glucose > : 350 Rx Instructions: BG <111 0 units, 111-150 - 0 units, 151-200 2 units, 201-250 4 units, 251-300 6 units, 301-350 8 units, >350 10 units metformin 500 mg Tablet 500 mg PO BIDWM Qty: 60 0RF ertapenem 1 gram recon soln 1 g IV Q24H Qty: 23 0RF Rx Instructions: ending May 20, 2024 magnesium hydroxide [Milk of Magnesia] 400 mg/5 mL Suspension 30 ml PO DAILY PRN (Reason: Constipation) Qty: 3780 0RF hydralazine 50 mg Tablet 50 mg PO TID Qty: 90 0RF Protocol: Hold for SBP< HOLD for SBP < : 90 nicotine 7 mg/24 hr Patch 24 Hour 7 mg transdermal DAILY Qty: 30 0RF acetaminophen 325 mg Tablet 650 mg PO Q6H PRN (Reason: Pain, Mild (Pain Scale 1-3)) Qty: 30 0RF Continued amitriptyline 50 mg Tablet 50 mg PO BEDTIME diltiazem HCl 180 mg Capsule,Extended Release 24 Hr 180 mg PO DAILY methadone 10 mg/mL Concentrate 80 mg PO DAILY Discontinued Lantus U-100 Insulin 100 unit/mL solution 45 unit subcut BID No Action (DME) Off loading shoe large See Rx Instructions .Route .MEDSUPPLY Qty: 1 0RF Rx Instructions: As directed (DME) Xeroform Petrolatum Dressing 1 X 8 bandage See Rx Instructions .ROUTE .MEDSUPPLY Qty: 200 0RF Rx Instructions: apply to foot wound daily (DME) adhesive tape 2 X 10 -yard tape See Rx Instructions .ROUTE .MEDSUPPLY Qty: 1 3RF Rx Instructions: apply to foot wound daily (DME) prosthetic Kit See Rx Instructions .Route Qty: 1 0RF Rx Instructions: As directed (DME) Bedside commode See Rx Instructions .Route .MEDSUPPLY Qty: 1 0RF Rx Instructions: As directed (DME) Shower Chair See Rx Instructions .Route .MEDSUPPLY Qty: 1 0RF Rx Instructions: As directed (DME) Walker See Rx Instructions .Route .MEDSUPPLY Qty: 1 0RF Rx Instructions: As directed (DME) Wheel chair Kit See Rx Instructions .Route Qty: 1 0RF Rx Instructions: As directed (DME) FreeStyle Lite Strips Strip See Rx Instructions Not Applicable TID Qty: 10 Rx Instructions: As directed (DME) insulin syringe-needle U-100 [BD Insulin Syringe Ultra-Fine] 1 mL 31 gauge x 5/16 syringe See Rx Instructions .ROUTE DAILY Qty: 10 Rx Instructions: As directed (DME) Band-Aid Rolled Gauze 4 X 2.5 -yard bandage See Rx Instructions .ROUTE .MEDSUPPLY Qty: 30 3RF Rx Instructions: apply to foot wound daily (DME) Band-Aid Gauze Pads 3 X 3 bandage See Rx Instructions .ROUTE .MEDSUPPLY Qty: 25 3RF Rx Instructions: apply to foot wound daily Discharge Orders: Discharge Order (Routine); Ordered 04/27/24 Ordered By: Davey Ivy Diet: Diabetic diet Activity on Discharge: As tolerated Stand Alone Forms: Patient Portal Discharge page Print Language: German Care Plan Goals: To complete IV antibiotics for resolution of cellultis and osteomylitis Health Concerns: Peripheral vascular disease Osteomylitis of amputed stump site Cellulitis of both lower extremities Plan of Treatment: Take Ertapenem IV 1 gram every 24 hours until May 20 2024 You are no longer on Lantus for diabetes, use sliding scale insulin and metformin to control sugars local wound care. Local wound care recommendation: 1. Turn and Reposition every 2 hours and as needed for patient comfort.? Use pillows or wedges to support off loading positions. 2. Off Load all bony prominences with use of pillows and heel boots if needed.? Apply Preventative foams where needed. ? 3. Monitor for incontinence and moisture control, use barrier creams when needed for prevention and treatment. 4. Provide adequate and supplemental nutrition.? 5. Order low air loss mattress. 6. Maintain blood glucose levels per Providers order. 7. Left Lateral Foot - Apply Betadine allow to dry cover with dry gauze, change daily. Do not apply foam dressing to left foot. 8. Left Leg - Elevate leg off of surface of bed with use of pillows.? Cleanse with NS, Pat dry.? Apply foam dressing to open wounds, Change every 3 days. 9. Right BKA site - Cleanse with NS, Pat dry.? Apply skin prep to periwound, cover wound bed with Durafiber AG.? Cover with Foam dressing.? Change every other day. You are going to short term rehab for less than 30 days Assessment: see above Discharge Date/Time: 04/27/24 17:43
[2024-04-27 16:48] LABS: Glucose, Whole Blood 141 mg/dL (60-115)
== END 2024-04-27 17:43 | disposition skilled nursing facility (03) | DRG 349 ==
LOC: HO.ED 16:14 → HO.EDOVER 18:21 → HO.S3 04-10 07:19
PROVIDERS: Internal Medicine; Physician Assistant; Student in an Organized Health Care Education/Training Program; Admitting Provider Physician Assistant; Emergency Provider Emergency Medicine; PCP Nurse Practitioner Family; Visit Provider Internal Medicine
DX: T87.43 Infection of amputation stump, right lower extremity (principal); G93.41 Metabolic encephalopathy; E11.649 Type 2 diabetes mellitus with hypoglycemia without coma; L03.115 Cellulitis of right lower limb; M86.161 Other acute osteomyelitis, right tibia and fibula; L03.116 Cellulitis of left lower limb; D63.8 Anemia in other chronic diseases classified elsewhere; E11.51 Type 2 diabetes mellitus with diabetic peripheral angiopathy without gangrene; L97.829 Non-pressure chronic ulcer of other part of left lower leg with unspecified severity; L97.819 Non-pressure chronic ulcer of other part of right lower leg with unspecified severity; I48.0 Paroxysmal atrial fibrillation; E11.69 Type 2 diabetes mellitus with other specified complication; Y83.5 Amputation of limb(s) as the cause of abnormal reaction of the patient, or of later complication, without mention of misadventure at the time of the procedure; Z99.3 Dependence on wheelchair; Z79.4 Long term (current) use of insulin; Z79.84 Long term (current) use of oral hypoglycemic drugs; Z79.891 Long term (current) use of opiate analgesic; Z79.899 Other long term (current) drug therapy
CPT/HCPCS: 36415; 36573; 73562; 73590; 73630; 80048; 80051; 80076; 80202; 80307; 81001; 82140; 82565; 82947; 83036; 83605; 83735; 83880; 85025; 85027; 85652; 86140; 87040; 87070; 87077; 87186; 87205; 99285; C1751; J0360; J0692; J1644; J2543; J3370; J3371

== ENCOUNTER → 2024-04-09 18:05 | Outpatient (BNV) | payer SELFPAY | PROVIDERS: Admitting Provider Physician Assistant; Emergency Provider Emergency Medicine; PCP Nurse Practitioner Family; Visit Provider Internal Medicine | DX: M86.10 Other acute osteomyelitis, unspecified site (principal); L03.116 Cellulitis of left lower limb; L03.115 Cellulitis of right lower limb; S88.119A Complete traumatic amputation at level between knee and ankle, unspecified lower leg, initial encounter; E11.9 Type 2 diabetes mellitus without complications | CPT/HCPCS: 99222 ==

== ENCOUNTER → 2024-04-09 18:05 | Outpatient (BNV) | payer MEDICAID, SELFPAY | PROVIDERS: Admitting Provider Physician Assistant; Emergency Provider Emergency Medicine; PCP Nurse Practitioner Family; Visit Provider Surgery | DX: L03.116 Cellulitis of left lower limb (principal); L03.115 Cellulitis of right lower limb; M86.10 Other acute osteomyelitis, unspecified site | CPT/HCPCS: 99222 ==

== ENCOUNTER → 2024-04-09 18:05 | Outpatient (BNV) | payer MEDICAID, OTHER, SELFPAY | PROVIDERS: Admitting Provider Physician Assistant; Emergency Provider Emergency Medicine; Visit Provider Student in an Organized Health Care Education/Training Program | DX: L03.116 Cellulitis of left lower limb (principal); L03.115 Cellulitis of right lower limb; M86.172 Other acute osteomyelitis, left ankle and foot | CPT/HCPCS: 99223; 99231; 99232; 99233; 99239; 99499 ==

== ENCOUNTER 2024-05-04 13:45 | Outpatient (AMB) | payer OTHER, SELFPAY ==
--- NOTE | 2024-05-04 14:14 | MHC.OFFVIS ---
Vital Signs 05/04/24 14:48 Pulse 90 Pulse Source Pulse Oximeter Temp 98.5 F Temp Source Oral Pulse Oximetry (%) 98 Intake Visit Reasons: reff hmc ulcer LE osteomylitis Allergies furosemide [Lasix] Allergy (Intermediate, Verified 05/04/24 14:49) Hives levofloxacin [Levaquin] Allergy (Unknown, Verified 05/04/24 14:49) Gastrointestinal Upset metronidazole [Flagyl] Allergy (Unknown, Verified 05/04/24 14:49) Unknown latex Allergy (Verified 05/04/24 14:49) Rash contrast dye Allergy (Unknown, Uncoded 10/24/23 15:09) rash, hives HPI HPI reff hmc ulcer LE osteomylitis: Details: He has right BKA stump and receiving six weeks IV Ertapenem. He has no complaints. [facility] Medical History Hx of hepatitis Diabetic ulcer of right foot Atrial fibrillation Hypertension Diabetes Surgical History 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 History of transmetatarsal amputation of foot (~09/2016) History of amputation of toe (~08/18/14) History of amputation of toe (~10/21/13) History of lipoma Family History Father History of lung cancer Mother History of diabetes mellitus Social History Household Members: Children Housing: Apartment Housing Other:: patient is homeless, couch surfing with friends/family Do you presently have visiting nurse or other home services: No Alcohol intake: never Patient Tobacco Use Status: Current everyday Tobacco user Tobacco use type: Cigarette Cigarettes Per Day: 6 Years Smoked: 49 Second Hand Smoke Exposure: Yes Substance Use Type: Crack/Cocaine service: No Review of Systems Const All systems reviewed & are unremarkable except as noted in HPI and below Physical Exam Vital Signs: Last Vital Signs Temp 98.5 F 05/04/24 14:48 Pulse 90 05/04/24 14:48 Pulse Ox 98 05/04/24 14:48 Const Other: General: cooperative Orientation/consciousness: patient oriented x3 HEENT Head: Yes normal to inspection Mouth: Normal oral and palatal mucosa present Eyes General: appearance normal, both eyes and all related structures Pupils: Equal, round and reactive pupils present Resp Effort & Inspection: normal respiratory effort Cardio Rate: regular rate Rhythm: regular rhythm GI Palpation (GI): Soft to palpation and nontender General: Yes no CVA tenderness Back/Spine/Pelvis Back: no CVA tenderness Skin General skin exam: no rashes or lesions noted Neuro General: patient oriented x3 Cranial nerves: Yes CN's II-XII intact bilaterally and Yes Equal, round and reactive pupils present Extrem Other: per picture Psych Appearance: grossly normal Assessment & Plan Assessment & Plan (1) Acute osteomyelitis: Comment: OM Code(s): M86.10 - Other acute osteomyelitis, unspecified site Category: Medical Plan: Finish IV Ertapenem until 05/20. Orders: Orders IR cvc remove any age 0605/04/24 M86.10 - Other acute osteomyelitis, unspecified site Medications: New doxycycline hyclate 100 mg PO BID 60 caps 0RF 30 days Coding Level of Care Code Est Pt Level 3 (10706) Diagnoses Acute osteomyelitis M86.10
[2024-05-04 14:48] VITALS: PULSE 90; TEMP 36.9; O2SAT 98
== END 2024-05-04 14:13 | disposition home or self-care (01) ==
LOC: HO.HID 13:45
PROVIDERS: PCP Nurse Practitioner Family; Visit Provider Internal Medicine
DX: M86.10 Other acute osteomyelitis, unspecified site (principal)
CPT/HCPCS: 99213

== ENCOUNTER → 2024-05-04 13:45 | Outpatient (BNVA) | payer OTHER, SELFPAY | PROVIDERS: PCP Nurse Practitioner Family; Visit Provider Internal Medicine | DX: M86.159 Other acute osteomyelitis, unspecified femur (principal) | CPT/HCPCS: 99212 ==

== ENCOUNTER 2024-06-20 21:23 | Inpatient (IN) | payer OTHER, SELFPAY ==
--- NOTE | ~2024-06-20 | XR_ITS ---
EXAMINATION: XR FOOT, LEFT CLINICAL INFORMATION: Diabetic foot rule out osteomyelitis COMPARISON: 04/09/2024 TECHNIQUE: AP, lateral, and oblique views of the left foot. FINDINGS: Status post transmetatarsal amputation of the first through fifth toes. Fusion of the distal aspect of the second through fourth metatarsals is again noted. No soft tissue gas. There is soft tissue swelling along the surgical edge. No focal osteopenia, cortical erosion, and periosteal reaction to suggest osteomyelitis. XR/XR foot LT 2V IMPRESSION: Soft tissue swelling along the surgical edge. No focal osteopenia, cortical erosion, and periosteal reaction to suggest osteomyelitis. If there is persistent clinical concern, MRI may be considered.
--- NOTE | ~2024-06-20 | MR_ITS ---
EXAMINATION: MR FOOT WITHOUT CONTRAST, LEFT CLINICAL INFORMATION: Osteomyelitis. COMPARISON: Multiple priors, most recent left foot radiographs dated 06/20/2024. TECHNIQUE: Multisequence MR imaging of the left foot was obtained without contrast on a high-field strength scanner. FINDINGS: Evaluation limited secondary to patient motion. Redemonstration of a transmetatarsal amputation. Skin thickening and subcutaneous edema anteriorly with a soft tissue defect/wound adjacent to the residual fifth metatarsal. Findings are consistent with acute cellulitis. No organized fluid collection or abscess formation. Increased T2 and decreased T1 signal throughout the entirety of the remaining fifth metatarsal. Findings are consistent with acute osteomyelitis. No additional marrow edema. No acute fracture or dislocation. No stress reaction. No concerning lytic or blastic osseous lesion. Diffuse edema and atrophy throughout the visualized musculature which can be seen in diabetic patients. Circumferential subcutaneous edema. No soft tissue mass or fluid collection. MR/MR foot LT wo con IMPRESSION: 1. Soft tissue defect/wound adjacent to the residual fifth metatarsal with associated cellulitis. No abscess formation. Findings consistent with acute osteomyelitis throughout the remaining fifth metatarsal. 2. Diffuse edema and atrophy throughout the visualized musculature which can be seen in diabetic patients. 3. Circumferential subcutaneous edema.
[2024-06-20 21:28] VITALS: BP 121/93; PULSE 90; RESP 18; TEMP 37.2; O2SAT 100; BMI 36.6
[2024-06-20 21:55] LABS: MANUAL DIFF FLAG NO
[2024-06-20 21:57] LABS: Basophils Absolute Auto 0.1 X10*3/uL (0.0-0.2); Basophils Percent Auto 0.3 % (0-2); Eosinophils Absolute Auto 0.3 X10*3/uL (0.0-0.4); Eosinophils Percent Auto 1.7 % (0-4); Hematocrit 27.8 % (42.0-52.0); Hemoglobin 8.8 g/dl (14.0-18.0); Imm Gran Pct Auto 0.6 % (0.0-0.4); Lymphocytes Absolute Auto 1.6 X10*3/uL (1.2-4.9); Lymphocytes Percent Auto 9.7 % (20-40); Mean Corpuscular HGB Conc 31.7 g/dl (31.0-36.0); Mean Corpuscular Hemoglobin 24.8 pg (27.0-33.0); Mean Corpuscular Volume 78.3 fL (80.0-98.0); Mean Platelet Volume 8.9 fL (9.4-12.4); Monocytes Absolute Auto 1.1 X10*3/uL (0.1-1.2); Monocytes Percent Auto 6.7 % (2-11); Neutrophils Absolute Auto 13.5 x10*3/uL (2.0-8.3); Platelet Count 405 X10*3/uL (160-400); Red Blood Count 3.55 X10*6/uL (4.60-5.80); Red Cell Distribution Width 14.5 % (11.0-16.0); White Blood Count 16.7 X10*3/uL (4.8-10.8)
[2024-06-20 22:07] LABS: Lactic Acid 1.1 mmol/L (0.5-2.0)
--- NOTE | 2024-06-20 22:11 | PC.NURSE ---
20g IV access established in right forearm by this RN. Labs drawn and sent for analysis, results pending. Pt sitting upright in wheelchair at this time, refused transfer into bed at this time. States that he is a diabetic and have not eaten all day or taken my insulin (Levemir) . Bilateral lower extremity amputee: left foot 5 toes amputated, and right below the knee amputation. Both feet have redness and inflammation noted. Sole of left foot noted to have mixed coloration, primarily eschar, yellow, and redness. Purulent & serosanguineous drainage noted from left foot. Primary RN Saul aware. Patient has a visitor at the bedside.
[2024-06-20 22:12] LABS: Alanine Aminotransferase 10 U/L (0-40); Albumin Level 3.3 g/dL (3.5-5.0); Alkaline Phosphatase 73 U/L (39-117); Anion Gap 13 (12-20); Aspartate Amino Transferase 12 U/L (5-37); Bilirubin Total 0.2 mg/dL (0.0-1.0); Blood Urea Nitrogen 20 mg/dL (9-16); Calcium 9.2 mg/dL (8.4-10.2); Carbon Dioxide 26 mmol/L (22-29); Chloride 100 mmol/L (96-108); Estimated Glomerular Filt Rate > 60; Glucose Random 143 mg/dL (60-115); Potassium 5.2 mmol/L (3.3-5.1); Sodium 134 mmol/L (135-145); Total Protein 8.3 g/dL (6.5-8.0)
--- NOTE | 2024-06-20 23:50 | ED.WOUNDLAC ---
HPI - Wound/Laceration General Chief Complaint: Wound/Laceration Stated Complaint: diabetic w/foot wounds Time Seen by Provider: 06/20/24 23:40 Source: patient and family (Daughter) Mode of arrival: ambulatory Limitations: no limitations History of Present Illness ED Provider: DR. Ba HPI narrative: 63-year-old history of complicated diabetes on the wheelchair secondary to BKA, and left toes amputation for osteomyelitis, PVD, AFib, HTN, hepatitis C. Patient had a recent hospitalization for left foot osteomyelitis and patient was sent with PICC line for ertapenem 1 g Q 24 hours for 30 days patient reported that he finished the whole course of antibiotic. Patient returned to the ED for evaluating of discharge from his left foot, swelling, redness, hotness. Related Data Home Medications ?Medication ?Instructions ?Recorded ?Confirmed amitriptyline 50 mg tablet 50 mg PO BEDTIME 12/09/20 04/09/24 blood sugar diagnostic (FreeStyle #10 ea 03/08/22 10/28/23 Lite Strips) insulin syringe-needle U-100 1 mL #10 ea 03/08/22 10/28/23 31 gauge x 5/16 (BD Insulin Syringe Ultra-Fine) diltiazem HCl 180 mg capsule,24 180 mg PO DAILY 04/09/24 04/09/24 hr,extended release methadone 10 mg/mL oral concentrate 80 mg PO DAILY 04/10/24 04/10/24 Previous Rx's ?Medication ?Instructions ?Recorded Off loading shoe #1 ea 12/28/20 bismuth tribrom-petrolatum,wh 1 X #200 ea 02/21/21 8 bandage (Xeroform Petrolatum Dressing) adhesive tape 2 X 10 yard #1 ea 06/16/21 prosthetics (prosthetic) #1 ea 06/16/21 chair, wheel (Wheel chair) #1 ea 03/12/23 Bedside commode #1 ea 04/18/23 Shower Chair #1 ea 04/18/23 Walker #1 ea 05/06/23 gauze bandage 3 X 3 (Band-Aid #25 ea 09/24/23 Gauze Pads) gauze bandage 4 X 2.5 yard #30 ea 09/24/23 (Band-Aid Rolled Gauze) acetaminophen 325 mg tablet 650 mg (2 x 325 mg) PO Q6H PRN 04/27/24 Pain, Mild (Pain Scale 1-3) #30 tabs ertapenem 1 gram solution for 1 g IV Q24H #23 ea 04/27/24 injection hydralazine 50 mg tablet 50 mg PO TID #90 tabs 04/27/24 insulin lispro 100 unit/mL See Protocol subcut QIDACHS #10 mL 04/27/24 subcutaneous solution (Admelog U-100 Insulin lispro) magnesium hydroxide 400 mg/5 mL 30 ml PO DAILY PRN Constipation 04/27/24 oral suspension (Milk of Magnesia) #3,780 mL metformin 500 mg tablet 500 mg PO BIDWM #60 tabs 04/27/24 nicotine 7 mg/24 hr daily 7 mg transdermal DAILY #30 ea 04/27/24 transdermal patch doxycycline hyclate 100 mg capsule 100 mg PO BID 30 days #60 caps 05/04/24 Allergies Allergy/AdvReac Type Severity Reaction Status Date / Time furosemide [Lasix] Allergy Intermediate Hives Verified 06/20/24 21:29 levofloxacin [Levaquin] Allergy Unknown Gastrointestinal Verified 06/20/24 21:29 Upset metronidazole [Flagyl] Allergy Unknown Unknown Verified 06/20/24 21:29 latex Allergy Rash Verified 06/20/24 21:29 contrast dye Allergy Unknown rash, hives Uncoded 10/24/23 15:09 Review of Systems Review of Systems: All other systems are reviewed and are negative Constitutional: Reports as per HPI and Reports no additional constitutional complaints Eyes: Reports as per HPI and Reports no additional eye complaints Reports system reviewed and no additional complaints, except as documented Cardiovascular: Reports as per HPI and Reports no additional cardiovascular complaints Respiratory: Reports as per HPI and Reports no additional respiratory complaints Gastrointestinal: Reports as per HPI and Reports no additional gastrointestinal complaints Genitourinary: Reports no additional female genitourinary complaints Musculoskeletal: Reports no additional musculoskeletal complaints Skin/Breast: Reports system reviewed and no additional complaints, except as docu Psychiatric: Reports no additional psychiatric complaints Endocrine: Reports no additional endocrine complaints Hematologic/Lymphatic: Reports no additional hematologic/lymphatic complaints Allergic/Immunologic: Reports no additional allergic/immunologic complaints Reports system reviewed and no additional complaints, except as documented and Reports Abnormal speech present [facility] Past Medical History Medical History Hx of hepatitis Diabetic ulcer of right foot Atrial fibrillation Hypertension Diabetes Surgical History 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 History of transmetatarsal amputation of foot (~09/2016) History of amputation of toe (~08/18/14) History of amputation of toe (~10/21/13) History of lipoma Family History Family History Father History of lung cancer Mother History of diabetes mellitus Social History Social History Household Members: Children Housing: Apartment Housing Other:: patient is homeless, couch surfing with friends/family Do you presently have visiting nurse or other home services: No Alcohol intake: never Patient Tobacco Use Status: Current everyday Tobacco user Tobacco use type: Cigarette Cigarettes Per Day: 6 Years Smoked: 49 Smoked in Last 30 Days: Yes Second Hand Smoke Exposure: Yes Use of substances other than those prescribed or required for medical reasons: No Substance Use Type: Crack/Cocaine Advance Directives: Yes Advance Directives on File: Yes Advance Directives Date on File: 04/28/24 Do you have a plan to hurt others: No Plan service: No Physical Exam Vital Signs: Vital Signs: Last Vital Signs Temp 98.9 F 06/20/24 21:28 Pulse 90 06/20/24 21:28 Resp 18 06/20/24 21:28 BP 121/93 H 06/20/24 21:28 Pulse Ox 100 06/20/24 21:28 O2 Del Method Room Air 06/20/24 21:28 BMI result Body Mass Index 36.6 Vital signs have been reviewed and appear to be correct. Blood pressure elevated. Heart rate normal. Respiratory rate normal. Temperature normal. Oxygen saturation normal. Appearance: Alert. Oriented X3. No acute distress. Head: Normal external exam. Normocephalic. Atraumatic. No [place] signs noted. No raccoon eyes noted Eyes: PERRLA. EOMI. Conjunctiva and sclera normal. Eyelids normal. ENT: TM's Normal. Pharynx normal. Uvula midline. Moist mucous membranes. No trismus noted. No drooling noted. No muffled voice noted. Neck: Normal inspection. Neck supple. FROM. No adenopathy. Thyroid Normal. No meningeal signs. No neck mass noted. CVS: Normal heart rate and rhythm. Heart sound normal. No murmurs noted. Pulses normal throughout. Respiratory: No respiratory distress. Painless inspiration. Breath sounds normal. No wheezes/rales/rhonchi noted. Chest nontender. No accessory muscle usage noted or decreased air movement noted. Abdomen: Soft and nontender. Bowel sounds normal in all 4 quadrants. No distention noted. No organomegaly noted. No visible injury noted. Back: No CVA tenderness. Full range of motion noted. Skin: Skin warm and dry. Normal skin color. Normal skin turgor. No rashes/lesions/lacerations noted. Extremities: Right BKA. Left toes amputation, left foot with redness, hotness, discharge from the dorsum of the left foot. Neuro: Oriented X 3. Cranial nerve exam: II-XII are grossly intact No motor deficit. No sensory deficit. Reflexes normal. Course Reevaluation(s) Reevaluation #1: Left foot osteomyelitis, patient meets SIRS criteria, no severe sepsis or septic shock. Patient received ertapenem for left foot osteomyelitis as an outpatient return back with infection of the left foot. Case discussed with Dr. Dan to restart ertapenem and admit. Meet SIRS criteria heart rate of 90 and leukocytosis, no severe sepsis or septic shock. Time: 00:17 Medical Decision Making Differential Diagnosis Differential Diagnoses: The differential diagnosis associated with the presentation includes (Left foot osteomyelitis, sepsis, electrolyte derangement, severe anemia.) Admission/Observation Consideration of admission/observation: Escalation of care including admission/observation considered Consult Healthcare Provider Management of the patient was discussed with: Hospitalist (Dr. Durham) and Architecture Manager (Dr. Dan) Lab Data MDM Lab Attestation statement: I reviewed the patient's lab results. 06/20/24 21:48 06/20/24 21:48 Labs: Lab Results 06/20/24 Range/Units 21:48 WBC 16.7 H (4.8-10.8) X10*3/uL RBC 3.55 L (4.60-5.80) X10*6/uL Hgb 8.8 L (14.0-18.0) g/dl Hct 27.8 L (42.0-52.0) % MCV 78.3 L (80.0-98.0) fL MCH 24.8 L (27.0-33.0) pg MCHC 31.7 (31.0-36.0) g/dl RDW 14.5 (11.0-16.0) % Plt Count 405 H (160-400) X10*3/uL MPV 8.9 L (9.4-12.4) fL Immature Gran % (Auto) 0.6 H (0.0-0.4) % Neut % (Auto) 81.0 H (45-73) % Lymph % (Auto) 9.7 L (20-40) % [place] % (Auto) 6.7 (2-11) % Eos % (Auto) 1.7 (0-4) % Baso % (Auto) 0.3 (0-2) % Lymph # (Auto) 1.6 (1.2-4.9) X10*3/uL [place] # (Auto) 1.1 (0.1-1.2) X10*3/uL Eos # (Auto) 0.3 (0.0-0.4) X10*3/uL Baso # (Auto) 0.1 (0.0-0.2) X10*3/uL Abs Immat Gran (auto) 0.10 H (0.00-0.03) X10*3/uL Absolute Neuts (auto) 13.5 H (2.0-8.3) x10*3/uL Absolute Nucleated RBC 0.000 (0.0-0.012) X10*3/uL Nucleated RBC % (auto) 0.0 (0.0-0.2) /100WBC Sodium 134 L (135-145) mmol/L Potassium 5.2 H (3.3-5.1) mmol/L Chloride 100 (96-108) mmol/L Carbon Dioxide 26 (22-29) mmol/L Anion Gap 13 (12-20) BUN 20 H (9-16) mg/dL Creatinine 1.09 (0.5-1.4) mg/dL Estim Creat Clear Calc 95.0 Estimated GFR > 60 Random Glucose 143 H (60-115) mg/dL Lactic Acid 1.1 (0.5-2.0) mmol/L Calcium 9.2 (8.4-10.2) mg/dL Total Bilirubin 0.2 (0.0-1.0) mg/dL AST 12 (5-37) U/L ALT 10 (0-40) U/L Alkaline Phosphatase 73 (39-117) U/L Total Protein 8.3 H (6.5-8.0) g/dL Albumin 3.3 L (3.5-5.0) g/dL Independent Interpretation I performed an independent interpretation of an: Plain X-Ray (Left foot x-ray:Soft tissue swelling along the surgical edge. No focal osteopenia, cortical erosion, and periosteal reaction to suggest osteomyelitis. If there is persistent clinical concern, MRI may be considered. ) Radiology Impression Discussion of test interpretation with radiology: I have reviewed the radiologist's reading. Chronic Conditions Patient?s care impacted by: Diabetes and Other (Chronic osteomyelitis) Discharge Plan Discharge Clinical Impression: Acute osteomyelitis Patient Disposition: Admitted As Inpatient Print Language: Kenyan
--- NOTE | 2024-06-21 00:24 | PM.IMHP ---
History of Present Illness Date of Service: 06/21/24 Chief Complaint: Foot infection This is a 63-year-old male wheelchair-bound with history of insulin-dependent diabetes mellitus, PVD status post right BKA 09/2023 and left foot TMA, opioid use disorder on methadone, history of left foot osteomyelitis, atrial fibrillation not on anticoagulation, hepatitis-C status post treatment, hypertension who presents to the emergency department for concerns of foot infection. Of note, patient was recently admitted with right BKA stump osteomyelitis and discharged on 04/27/2024 with a ertapenem for total of 6 weeks. Patient states he started noticing redness and warmth of his left lower extremity about 2 days prior to presentation. Also had purulent foul-smelling drainage from ventral aspect of his left foot that began 2 days ago. No fever, chills, chest discomfort, palpitations, shortness of breath, abdominal pain, changes in urinary or bowel habits. In the emergency department, patient was found to be septic and initiated on empiric IV antibiotics. Review of Systems Constitutional: Constitutional: Reports no additional constitutional complaints Cardiovascular: Cardiovascular: Reports no additional cardiovascular complaints Respiratory: Respiratory: Reports no additional respiratory complaints Gastrointestinal: Gastrointestinal: Reports no additional gastrointestinal complaints Genitourinary: Genitourinary: Reports no additional male genitourinary complaints [facility] Medical History Hx of hepatitis Diabetic ulcer of right foot Atrial fibrillation Hypertension Diabetes Family History Father History of lung cancer Mother History of diabetes mellitus Surgical History 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 History of transmetatarsal amputation of foot (~09/2016) History of amputation of toe (~08/18/14) History of amputation of toe (~10/21/13) History of lipoma Social History Household Members: Children Housing: Apartment Housing Other:: patient is homeless, couch surfing with friends/family Do you presently have visiting nurse or other home services: No Alcohol intake: never Patient Tobacco Use Status: Current everyday Tobacco user Tobacco use type: Cigarette Cigarettes Per Day: 6 Years Smoked: 49 Smoked in Last 30 Days: Yes Second Hand Smoke Exposure: Yes Use of substances other than those prescribed or required for medical reasons: No Substance Use Type: Crack/Cocaine Advance Directives: Yes Advance Directives on File: Yes Advance Directives Date on File: 04/28/24 Do you have a plan to hurt others: No Plan service: No Meds Allergies Allergy/AdvReac Type Severity Reaction Status Date / Time furosemide [Lasix] Allergy Intermediate Hives Verified 06/20/24 21:29 levofloxacin [Levaquin] Allergy Unknown Gastrointestinal Verified 06/20/24 21:29 Upset metronidazole [Flagyl] Allergy Unknown Unknown Verified 06/20/24 21:29 latex Allergy Rash Verified 06/20/24 21:29 contrast dye Allergy Unknown rash, hives Uncoded 10/24/23 15:09 Active Medications: Current Medications Sodium Chloride (Ns) 1,000 mls @ 999 mls/hr IV .Q1H1M ONE Stop: 06/21/24 00:48 Ertapenem 1 gm/ Sodium (Chloride) 50 mls @ 100 mls/hr IV ONCE ONE Stop: 06/21/24 00:37 Home Medications ?Medication ?Instructions ?Recorded ?Confirmed ?Last Taken ?Type amitriptyline 50 mg tablet 50 mg PO BEDTIME 12/09/20 04/09/24 Unknown History blood sugar diagnostic (FreeStyle #10 ea 03/08/22 10/28/23 Unknown History Lite Strips) insulin syringe-needle U-100 1 mL #10 ea 03/08/22 10/28/23 Unknown History 31 gauge x 5/16 (BD Insulin Syringe Ultra-Fine) diltiazem HCl 180 mg capsule,24 180 mg PO DAILY 04/09/24 04/09/24 Unknown History hr,extended release methadone 10 mg/mL oral concentrate 80 mg PO DAILY 04/10/24 04/10/24 04/09/24 07:30 History Physical Exam Vital Signs and Narrative: Vital Signs: Last Vital Signs Temp 98.9 F 06/20/24 21: Pulse 90 06/20/24 21: Resp 18 06/20/24 21:28 BP 121/93 H 06/20/24 21:28 Pulse Ox 100 06/20/24 21:28 O2 Del Method Room Air 06/20/24 21:28 BMI result Body Mass Index 36.6 Middle-aged male lying in bed in no distress Neck supple, no JVD Regular rate and rhythm, S1-S2 heard Regular breath sounds bilaterally, no wheezing or crackles appreciated Abdomen soft nontender, no guarding, no rigidity Patient is awake, alert and oriented to self, place, time and person ; no focal motor deficit Psych: Normal mood Right BKA and left TMA ; left lower extremity with erythema, warmth ; purulent foul-smelling drainage from the ventral aspect of left foot Results Labs 06/20/24 21:48 06/20/24 21:48 Labs: Laboratory Results - last 24 hr 06/20/24 21:48 MCV 78.3 L MCH 24.8 L MCHC 31.7 RDW 14.5 Plt Count 405 H MPV 8.9 L Immature Gran % (Auto) 0.6 H Neut % (Auto) 81.0 H Lymph % (Auto) 9.7 L [place] % (Auto) 6.7 Eos % (Auto) 1.7 Baso % (Auto) 0.3 Lymph # (Auto) 1.6 [place] # (Auto) 1.1 Eos # (Auto) 0.3 Baso # (Auto) 0.1 Abs Immat Gran (auto) 0.10 H Absolute Neuts (auto) 13.5 H Absolute Nucleated RBC 0.000 Nucleated RBC % (auto) 0.0 Anion Gap 13 Estim Creat Clear Calc 95.0 Estimated GFR > 60 Random Glucose 143 H Lactic Acid 1.1 Calcium 9.2 Total Bilirubin 0.2 AST 12 ALT 10 Alkaline Phosphatase 73 Total Protein 8.3 H Albumin 3.3 L Imaging Radiologist's Impressions: Impressions Foot X-Ray 06/20/24 23:58 IMPRESSION: Soft tissue swelling along the surgical edge. No focal osteopenia, cortical erosion, and periosteal reaction to suggest osteomyelitis. If there is persistent clinical concern, MRI may be considered. Assessment and Plan (1) Cellulitis: Status: Acute (2) Diabetic foot infection: Status: Acute Plan This is a 63-year-old male wheelchair-bound with history of insulin-dependent diabetes mellitus, PVD status post right BKA 09/2023 and left foot TMA, opioid use disorder on methadone, history of left foot osteomyelitis, atrial fibrillation not on anticoagulation, hepatitis-C status post treatment, hypertension who presents to the emergency department for concerns of foot infection. #. Sepsis due to diabetic left foot infection with cellulitis and infected nonhealing ulcer: Resuscitated with IV crystalloids. Initiating empiric IV antibiotics. Lactic acid and blood culture obtained. Obtaining MRI to delineate underlying anatomy #. Insulin-dependent diabetes mellitus: Initiating Accu-Cheks with sliding scale insulin #. Opioid use disorder on methadone #. Paroxysmal atrial fibrillation: On diltiazem. Not on anticoagulation #. Chronic normocytic anemia Med rec pending DVT prophylaxis: Lovenox Full code Admit as inpatient and will require two night minimum hospital stay for IV antibiotics (as above), which is not possible in a lesser acute setting. Quality Stroke Does the patient have a stroke diagnosis?: No VTE Prior VTE?: No VTE Risk Level:: Medical - moderate - high VTE Device Contraindication: Treatment Not Indicated VTE Drug Contraindication: N/A - Med Ordered
[2024-06-21] MEDS: Ertapenem Sodium 1 GM in 0.9 % Sodium Chloride 50 ML IV (00:37)
[2024-06-21] MEDS: 0.9 % Sodium Chloride 1,000 ML 999 ML IV (00:39)
[2024-06-21] MEDS: Piperacillin Sodium/Tazobactam 4.5 GM in 0.9 % Sodium Chloride 100 ML IV ×4 (01:23→18:35)
--- NOTE | 2024-06-21 05:27 | PC.NURSE ---
Phlebotomy notified tis RN that pt refusing lab work this am. RN spoke with pt, and pt stated that he would agree to a 2nd attempt to draw, later on in the morning . provider made aware.
--- NOTE | 2024-06-21 06:35 | PHA.PROG ---
Admission Date/Time: June 21, 2024 00:23 Indication: sepsis Weight in k.582 kg Adjusted body weight in Kg: [place] body weight in Kg: Obesity Dosing Indication % IBW: Serum Creatinine - Last 168 Hours 06/20/24 21:48 Creatinine 1.09 Estimated CrCl and GFR - Last 168 Hours 06/20/24 21:48 Estim Creat Clear Calc 95.0 Estimated GFR > 60 Vancomycin Loading Dose: 2000mg x 1 Current Vancomycin Dosing Regimen: 1250mg Q12H Vancomycin Monitoring using AUC goal of 400 - 600 range with trough as surrogate marker: 538mg/L Date and Time for next Vancomycin Level to be drawn: 06/22 @1200 Pharmacist Comments on Vancomycin Plan: predicted trough of 18mg/L; patient's BMI = 36.7; obese model being used Vancomycin dosing will take advantage of [employer] as a clinical decision support tool that uses Bayesian modeling to calculate individual patient's pharmacokinetic parameters and forecast the patient's drug concentration time course with the target goal AUC 24 range of 400 - 600 mg/L/hr.
--- NOTE | 2024-06-21 07:23 | PC.NURSE ---
Pt care assumed at change of shift. Pt is resting quietly in wheelchair. Pt medicated per JAN. Pt reports daily Methadone from [facility]--will review with provider.
[2024-06-21 07:34] LABS: Glucose, Whole Blood 120 mg/dL (60-115)
[2024-06-21] MEDS: Enoxaparin Sodium 40 MG/0.4 ML SYRINGE SUBCUT (09:05)
[2024-06-21] MEDS: 0.9 % Sodium Chloride Flush 3 ML SYRINGE IVFLUSH ×3 (09:05→20:43)
--- NOTE | 2024-06-21 09:23 | PC.NURSE ---
MRI screening form completed and faxed to MRI.
[2024-06-21 09:36] LABS: MANUAL DIFF FLAG NO
[2024-06-21 09:37] LABS: Basophils Absolute Auto 0.1 X10*3/uL (0.0-0.2); Basophils Percent Auto 0.4 % (0-2); Eosinophils Absolute Auto 0.4 X10*3/uL (0.0-0.4); Imm Gran Abs Auto 0.07 X10*3/uL (0.00-0.03); Imm Gran Pct Auto 0.5 % (0.0-0.4); Lymphocytes Absolute Auto 1.9 X10*3/uL (1.2-4.9); Mean Corpuscular Volume 80.6 fL (80.0-98.0); Mean Platelet Volume 9.3 fL (9.4-12.4); Monocytes Absolute Auto 1.1 X10*3/uL (0.1-1.2); Monocytes Percent Auto 7.6 % (2-11); Neutrophils Absolute Auto 10.8 x10*3/uL (2.0-8.3); Neutrophils Percent Auto 75.5 % (45-73); Platelet Count 431 X10*3/uL (160-400); Red Cell Distribution Width 14.4 % (11.0-16.0); White Blood Count 14.3 X10*3/uL (4.8-10.8)
[2024-06-21 09:49] LABS: Anion Gap 12 (12-20); Blood Urea Nitrogen 16 mg/dL (9-16); Calcium 9.2 mg/dL (8.4-10.2); Carbon Dioxide 28 mmol/L (22-29); Chloride 102 mmol/L (96-108); Creatinine Clr Calc Pharmacy 113.8; Estimated Glomerular Filt Rate > 60; Glucose Random 143 mg/dL (60-115); Potassium 4.2 mmol/L (3.3-5.1); Sodium 138 mmol/L (135-145)
--- NOTE | 2024-06-21 11:01 | PHA.MEDREC ---
Addendum entered by Lauren Lees RPh 06/21/24 12:21: MED REC COMPLETE BY [facility], REVIEWED BY [facility] Original Note: Pharmacy Consult ? Medication Reconciliation Pharmacy has completed the medication reconciliation.
--- NOTE | 2024-06-21 11:34 | HE.PHANOTE ---
Re: Methadone Last dose verified methadone 80 mg daily from [facility]. Pt receives at home deliveries via [facility] supply until 06/22. Should be last dose 06/20/24.
--- NOTE | 2024-06-21 12:25 | PC.NURSE ---
security at beside assisting pt with changeover- family at bedside
--- NOTE | 2024-06-21 12:26 | PC.NURSE ---
belongings per security family is taking all belongings with them.
--- NOTE | 2024-06-21 12:29 | PM.EVENT ---
Event Note Date of Service: 06/21/24 Event Note: This patient is seen and examined with APC. Patient was admitted for foot infection Physical exam and assessment and plan coordinated in APCs note, Agree with the plan in addition: Sepsis due to diabetic left foot infection with cellulitis and infected nonhealing ulcer Continue IV antibiotics, MRI foot Id evaluation pending Low-potassium diet, repeat BMP potassium improving Time Spent With Patient Time: Total time managing care of this patient today ____ minutes.
[2024-06-21 13:16] VITALS: BP 159/73; PULSE 58; RESP 14; TEMP 36.7; O2SAT 100
[2024-06-21 14:29] VITALS: BP 167/81; PULSE 62; RESP 18; TEMP 36.1; O2SAT 100
[2024-06-21 14:29] LABS: Glucose, Whole Blood 118 mg/dL (60-115)
[2024-06-21 15:08] VITALS: BP 133/74; PULSE 65; RESP 18; TEMP 36.4; O2SAT 99
[2024-06-21] MEDS: methADONE HCl 20 MG/2 ML ORAL.CONC 80 MG PO (15:10)
[2024-06-21] MEDS: vancomycin HCL 1,250 MG in 0.9 % Sodium Chloride 250 ML 166.67 MG IV (15:10)
--- NOTE | 2024-06-21 15:59 | MHC.CM.PN ---
PT REPORTS HE IS CURRENTLY STAYING WITH HIS MOTHER, BUT CAN ONLY STAY FOR A COUPLE DAYS AT A TIME, HE SAYS HE TRIES TO STAY WITH OTHERS IN [place]WE[place], BUT CANNOT BE IN ANY OF THEIR HOMES FOR EXTENDED PERIODS OF TIME HE USES A WHEEL CHAIR AND CAN TRANSFER INDEPENDENTLY HCP ON FILE PCP: ALIREZA VANCE PT SAYS HE HAS BEEN TO STR FOR IV ABX IN THE PAST SO UNDERSTANDS THE PROCESS IF THIS TREATMENT IS REQUIRED IF HE DOES NOT NEED IV TREATMENT AT DC, HE WILL LIKELY RETURN TO MOTHERS HOME
[2024-06-21 16:09] LABS: Glucose, Whole Blood 167 mg/dL (60-115)
[2024-06-21] MEDS: Insulin Lispro 100 UNIT/ML 3 ML VIAL SUBCUT (16:52)
--- NOTE | 2024-06-21 17:18 | HO.SKINPHOTO ---
Right BKA site Left foot Left fenton Left fenton and right BKA noted to have moderate amounts of serous fluid draining from sites. Areas cleansed with NaCl, pat dried, alginate applied followed by gauze and wrap. Left foot appears dry. Painted with betadine, gauze, and wrap applied. Wound care nurse consulted.
[2024-06-21 20:00] VITALS: BP 163/77; PULSE 59; RESP 18; TEMP 36.3; O2SAT 100
[2024-06-21 20:22] LABS: Glucose, Whole Blood 122 mg/dL (60-115)
[2024-06-21] MEDS: Insulin Glargine,Hum.rec.anlog 100 UNIT/ML 10 ML VIAL 40 UNIT SUBCUT (20:42)
[2024-06-21] MEDS: Amitriptyline HCl 50 MG TABLET PO (20:42)
[2024-06-22] MEDS: Piperacillin Sodium/Tazobactam 4.5 GM in 0.9 % Sodium Chloride 100 ML IV ×4 (00:29→18:02)
[2024-06-22] MEDS: vancomycin HCL 1,250 MG in 0.9 % Sodium Chloride 250 ML 166.67 MG IV (02:07)
[2024-06-22 03:58] VITALS: BP 188/90; PULSE 73; RESP 18; TEMP 35.9; O2SAT 99
[2024-06-22 07:27] VITALS: BP 148/70; PULSE 62; RESP 17; TEMP 36; O2SAT 100
[2024-06-22 07:28] LABS: Creatinine Clr Calc Pharmacy 103.5; Estimated Glomerular Filt Rate > 60
[2024-06-22 07:46] LABS: Glucose, Whole Blood 275 mg/dL (60-115)
[2024-06-22] MEDS: dilTIAZem HCL CD 180 MG CAP.ER.24H PO (08:04)
[2024-06-22] MEDS: Insulin Lispro 100 UNIT/ML 3 ML VIAL SUBCUT ×3 (08:04→20:47)
[2024-06-22] MEDS: Enoxaparin Sodium 40 MG/0.4 ML SYRINGE SUBCUT (08:04)
[2024-06-22] MEDS: methADONE HCl 20 MG/2 ML ORAL.CONC 80 MG PO (08:05)
[2024-06-22] MEDS: 0.9 % Sodium Chloride Flush 3 ML SYRINGE IVFLUSH (08:08)
[2024-06-22 10:57] LABS: Erythrocyte Sedimentation Rate 105 MM/HR (0-15)
[2024-06-22 11:31] LABS: Glucose, Whole Blood 209 mg/dL (60-115)
--- NOTE | 2024-06-22 12:38 | HO.PM.IMPN ---
Subjective Subjective Date of Service: 06/22/24 Interval History: foot cellulitis Review of Systems left lower extremity with erythema, has ulcer ventral aspect of left foot Physical Exam Vital Signs: Vital Signs: Last Vital Signs Temp 96.8 F 06/22/24 07:27 Pulse 62 06/22/24 07:27 Resp 17 06/22/24 07:27 BP 148/70 H 06/22/24 07:27 Pulse Ox 100 06/22/24 07:27 O2 Del Method Room Air 06/22/24 07:27 BMI result Body Mass Index 36.6 Patient is awake, alert and oriented to self, place, time and person neuro -no focal motor deficit cvs:Regular rate and rhythm, S1-S2 heard chest:Regular breath sounds bilaterally, no wheezing or crackles appreciated abd: Abdomen soft nontender, no guarding, no rigidity Psych: Normal mood ext:Right BKA and left TMA ; left lower extremity with erythema, warmth ; purulent foul-smelling drainage from the ventral aspect of left foot Objective Data Active Medications Acetaminophen (Acetaminophen 325 Mg Tablet) 650 mg PO Q6H PRN PRN Reason: Pain, Mild (Pain Scale 1-3), fever or headache Amitriptyline HCl (Amitriptyline Hcl 50 Mg Tablet) 50 mg PO BEDTIME [facility] Last Admin: 06/21/24 20:42 Dose: 50 mg Documented By: ARYA Calcium Carbonate (Calcium Carbonate 750 Mg Tab.Chew) 750 mg PO Q4H PRN PRN Reason: Heartburn Diltiazem HCl (Diltiazem Hcl Cd 180 Mg Cap.Er.24h) 180 mg PO DAILY [facility]; Protocol Last Admin: 06/22/24 08:04 Dose: 180 mg Documented By: AYESHA Enoxaparin Sodium (Enoxaparin Sodium 40 Mg/0.4 Ml Syringe) 40 mg SUBCUT Q24H [facility] Last Admin: 06/22/24 08:04 Dose: 40 mg Documented By: AYESHA Glucose (Glucose Gel 15 Gm Gel..Gram.) 15 gm PO Q15M PRN; Protocol PRN Reason: per Hypoglycemia Standing Ord. Dextrose (D10) 250 mls @ 750 mls/hr IV Q15M PRN; Protocol PRN Reason: per Hypoglycemia Standing Ord. Piperacillin Sod/Tazobactam (Sod 4.5 gm/ Sodium Chloride) 100 mls @ 200 mls/hr IV Q6H [facility] Last Infusion: 06/22/24 07:08 Dose: Infused Documented By: AYESHA Vancomycin HCl 1,250 mg/ (Sodium Chloride) 250 mls @ 166.667 mls/hr IV Q12H [facility] Last Infusion: 06/22/24 03:37 Dose: Infused Documented By: ARYA Insulin Glargine (Insulin Glargine,Hum.Rec.Anlog 100 Unit/Ml 10 Ml Vial) 40 unit SUBCUT BEDTIME [facility] Last Admin: 06/21/24 20:42 Dose: 40 unit Documented By: ARYA Insulin Human Lispro (Insulin Lispro 100 Unit/Ml 3 Ml Vial) 0 unit SUBCUT QIDACHS [facility]; Protocol Last Admin: 06/22/24 11:46 Dose: 4 unit Documented By: AYESHA Magnesium Hydroxide (Milk Of Magnesia 30 Ml Oral.Susp) 30 ml PO DAILY PRN PRN Reason: Constipation Melatonin (Melatonin 3 Mg Tablet) 6 mg PO BEDTIME PRN PRN Reason: Insomnia Methadone HCl (Methadone Hcl 20 Mg/2 Ml Oral.Conc) 80 mg PO DAILY [facility] Last Admin: 06/22/24 08:05 Dose: 80 mg Documented By: AYESHA Ondansetron HCl (Ondansetron Hcl 4 Mg/2 Ml Vial) 4 mg IVPUSH Q8H PRN PRN Reason: Nausea and Vomiting Pharmacy Consult (Consult Rx Vancomycin Dosing) 1 each MISCELLANE DAILY PRN PRN Reason: Consult order Sodium Chloride (0.9 % Sodium Chloride Flush 3 Ml Syringe) 3 ml IVFLUSH QSHIFT [facility] Last Admin: 06/22/24 08:08 Dose: 3 ml Documented By: AYESHA Labs 06/21/24 09:30 06/22/24 05:44 Labs: Laboratory Results - last 24 hr 06/21/24 06/21/24 06/21/24 13:45 15:40 20:14 ESR Hold Purple Top Estim Creat Clear Calc Estimated GFR POC Glucose 118 H 167 H 122 H C-Reactive Protein 06/22/24 06/22/24 06/22/24 05:44 07:32 09:36 ESR 105 H Hold Purple Top SEE NOTE Estim Creat Clear Calc 103.5 Estimated GFR > 60 POC Glucose 275 H C-Reactive Protein 8.90 H 06/22/24 11:20 ESR Hold Purple Top Estim Creat Clear Calc Estimated GFR POC Glucose 209 H C-Reactive Protein Microbiology Microbiology Results: Microbiology 06/21/24 09:30 - Preliminary Blood - Venous No growth after 24 hours. 06/20/24 22:11 Blood Culture - Preliminary Blood - Venous No growth after 24 hours. Assessment and Plan (1) Diabetic foot infection: Status: Acute Assessment and Plan: 63-year-old male wheelchair-bound with history of insulin-dependent diabetes mellitus, PVD status post right BKA 09/2023 and left foot TMA, opioid use disorder on methadone, history of left foot osteomyelitis, atrial fibrillation not on anticoagulation, hepatitis-C status post treatment, hypertension who presents to the emergency department for concerns of foot infection. Sepsis due to diabetic left foot infection with cellulitis and infected nonhealing ulcer: mri foot w/o contrast ( patient refused contrast) lactic acid normal,blood cultures continue IV antibiotics. Id eval Insulin-dependent diabetes mellitus: Initiating Accu-Cheks with sliding scale insulin Opioid use disorder on methadone Paroxysmal atrial fibrillation: On diltiazem. Not on anticoagulation( as per last admission chart review). Chronic normocytic anemia DVT prophylaxis: Lovenox . Full code Admit as inpatient and will require two night minimum hospital stay for IV antibiotics (as above), which is not possible in a lesser acute setting. Quality Stroke Does the patient have a stroke diagnosis?: No VTE Prior VTE?: No VTE Risk Level:: Medical - moderate - high VTE Device Contraindication: Treatment Not Indicated VTE Drug Contraindication: N/A - Med Ordered
[2024-06-22 13:10] LABS: Vancomycin Random 18.1 mcg/mL (15-20)
--- NOTE | 2024-06-22 13:25 | HE.PHANOTE ---
RE AGUSTINA RENAL FUNCTION STABLE WITH CRCL 103.5. TROUGH TODAY IS 18.1. WILL CHANGE DOSE FROM 1250 Q12 TO 750 Q8 TO ATTEMPT TO KEEP AUC AT ABOUT 536 (LOOKS LIKE 1250 Q12 DOSE WOULD BE VERY CLOSE TO 600). CHECK NEXT LEVEL 06/23 @1200.
[2024-06-22] MEDS: vancomycin HCL 750 MG in 0.9 % Sodium Chloride 250 ML 265 MG IV ×2 (15:13→22:48)
[2024-06-22 15:48] VITALS: BP 147/70; PULSE 63; RESP 18; TEMP 36.1; O2SAT 99
--- NOTE | 2024-06-22 15:58 | MHC.CM.PN ---
per rounds pt not angela for dc ?pt needing another amp
[2024-06-22 16:17] LABS: Glucose, Whole Blood 85 mg/dL (60-115)
[2024-06-22 20:00] VITALS: BP 151/86; PULSE 58; RESP 18; TEMP 36.2; O2SAT 99
[2024-06-22 20:30] LABS: Glucose, Whole Blood 198 mg/dL (60-115)
[2024-06-22] MEDS: Amitriptyline HCl 50 MG TABLET PO (20:46)
[2024-06-22] MEDS: Insulin Glargine,Hum.rec.anlog 100 UNIT/ML 10 ML VIAL 40 UNIT SUBCUT (20:47)
[2024-06-23] MEDS: 0.9 % Sodium Chloride Flush 3 ML SYRINGE IVFLUSH ×3 (00:32→17:19)
[2024-06-23] MEDS: Piperacillin Sodium/Tazobactam 4.5 GM in 0.9 % Sodium Chloride 100 ML IV ×4 (00:33→18:44)
[2024-06-23 04:00] VITALS: BP 172/81; PULSE 63; RESP 16; TEMP 36; O2SAT 99
[2024-06-23] MEDS: vancomycin HCL 750 MG in 0.9 % Sodium Chloride 250 ML 265 MG IV (05:12)
[2024-06-23 06:35] LABS: Creatinine Clr Calc Pharmacy 95.8; Estimated Glomerular Filt Rate > 60
[2024-06-23 07:15] VITALS: BP 171/75; PULSE 64; RESP 16; TEMP 36.4; O2SAT 99
[2024-06-23 07:35] LABS: Glucose, Whole Blood 168 mg/dL (60-115)
[2024-06-23] MEDS: methADONE HCl 20 MG/2 ML ORAL.CONC 80 MG PO (08:38)
[2024-06-23] MEDS: Enoxaparin Sodium 40 MG/0.4 ML SYRINGE SUBCUT (08:38)
[2024-06-23 08:39] VITALS: BP 157/70; PULSE 64
[2024-06-23] MEDS: Insulin Lispro 100 UNIT/ML 3 ML VIAL SUBCUT ×4 (08:39→20:41)
[2024-06-23] MEDS: dilTIAZem HCL CD 180 MG CAP.ER.24H PO (08:39)
[2024-06-23 11:36] LABS: Glucose, Whole Blood 215 mg/dL (60-115)
[2024-06-23 12:36] LABS: Vancomycin Random 19.8 mcg/mL (15-20)
--- NOTE | 2024-06-23 12:42 | HE.PHANOTE ---
RE: vanco Trough on 06/23 came back at 19.8mg/L; changed dose to 1000mg Q12H wit predicted trough of 16.9mg/L, AUC of 506 mg/L. Getting another level after two doses on 06/24 @1200
[2024-06-23] MEDS: vancomycin HCL 1,000 MG in 0.9 % Sodium Chloride 250 ML 270 MG IV (13:15)
--- NOTE | 2024-06-23 14:42 | HO.PM.IMPN ---
Subjective Subjective Date of Service: 06/23/24 Interval History: No acute issues overnight. Remains afebrile. Essentially no pain Review of Systems Denies chest pain Denies shortness of breath Denies nausea vomiting diarrhea Denies fever chills Physical Exam Vital Signs: Vital Signs: Last Vital Signs Temp 97.5 F 06/23/24 07:15 Pulse 64 06/23/24 08:39 Resp 16 06/23/24 07:15 BP 157/70 H 06/23/24 08:39 Pulse Ox 99 06/23/24 07:15 O2 Del Method Room Air 06/23/24 07:15 BMI result Body Mass Index 36.6 Const: Other: Awake alert oriented x3 no acute distress Resp: Other: Clear to auscultation bilaterally no rales rhonchi or wheezes Cardio: Other: No S4; positive S1-S2; no S3 murmurs rubs or gallops GI: Other: Soft nontender nondistended normoactive bowel sounds Extrem: Other: No edema noted left lower extremity Objective Data Active Medications Acetaminophen (Acetaminophen 325 Mg Tablet) 650 mg PO Q6H PRN PRN Reason: Pain, Mild (Pain Scale 1-3), fever or headache Amitriptyline HCl (Amitriptyline Hcl 50 Mg Tablet) 50 mg PO BEDTIME [facility] Last Admin: 06/22/24 20:46 Dose: 50 mg Documented By: KEITH Calcium Carbonate (Calcium Carbonate 750 Mg Tab.Chew) 750 mg PO Q4H PRN PRN Reason: Heartburn Diltiazem HCl (Diltiazem Hcl Cd 180 Mg Cap.Er.24h) 180 mg PO DAILY [facility]; Protocol Last Admin: 06/23/24 08:39 Dose: 180 mg Documented By: AYESHA Enoxaparin Sodium (Enoxaparin Sodium 40 Mg/0.4 Ml Syringe) 40 mg SUBCUT Q24H [facility] Last Admin: 06/23/24 08:38 Dose: 40 mg Documented By: AYESHA Glucose (Glucose Gel 15 Gm Gel..Gram.) 15 gm PO Q15M PRN; Protocol PRN Reason: per Hypoglycemia Standing Ord. Dextrose (D10) 250 mls @ 750 mls/hr IV Q15M PRN; Protocol PRN Reason: per Hypoglycemia Standing Ord. Piperacillin Sod/Tazobactam (Sod 4.5 gm/ Sodium Chloride) 100 mls @ 200 mls/hr IV Q6H [facility] Last Infusion: 06/23/24 13:06 Dose: Infused Documented By: AYESHA Vancomycin HCl 1,000 mg/ (Sodium Chloride) 270 mls @ 270 mls/hr IV Q12H [facility] Last Infusion: 06/23/24 14:29 Dose: Infused Documented By: LEON Insulin Glargine (Insulin Glargine,Hum.Rec.Anlog 100 Unit/Ml 10 Ml Vial) 40 unit SUBCUT BEDTIME [facility] Last Admin: 06/22/24 20:47 Dose: 40 unit Documented By: KEITH Insulin Human Lispro (Insulin Lispro 100 Unit/Ml 3 Ml Vial) 0 unit SUBCUT QIDACHS [facility]; Protocol Last Admin: 06/23/24 12:13 Dose: 4 unit Documented By: AYESHA Magnesium Hydroxide (Milk Of Magnesia 30 Ml Oral.Susp) 30 ml PO DAILY PRN PRN Reason: Constipation Melatonin (Melatonin 3 Mg Tablet) 6 mg PO BEDTIME PRN PRN Reason: Insomnia Methadone HCl (Methadone Hcl 20 Mg/2 Ml Oral.Conc) 80 mg PO DAILY [facility] Last Admin: 06/23/24 08:38 Dose: 80 mg Documented By: AYESHA Co-signed By: LEON Ondansetron HCl (Ondansetron Hcl 4 Mg/2 Ml Vial) 4 mg IVPUSH Q8H PRN PRN Reason: Nausea and Vomiting Pharmacy Consult (Consult Rx Vancomycin Dosing) 1 each MISCELLANE DAILY PRN PRN Reason: Consult order Sodium Chloride (0.9 % Sodium Chloride Flush 3 Ml Syringe) 3 ml IVFLUSH QSHIFT [facility] Last Admin: 06/23/24 08:39 Dose: 3 ml Documented By: AYESHA Labs 06/21/24 09:30 06/23/24 05:26 Labs: Laboratory Results - last 24 hr 06/22/24 06/22/24 06/23/24 16:07 20:21 05:26 Estim Creat Clear Calc 95.8 Estimated GFR > 60 POC Glucose 85 198 H Random Vancomycin 06/23/24 06/23/24 06/23/24 07:17 11:19 12:10 Estim Creat Clear Calc Estimated GFR POC Glucose 168 H 215 H Random Vancomycin 19.8 Microbiology Microbiology Results: Microbiology 06/21/24 09:30 - Preliminary Blood - Venous No growth after 48 hours. 06/20/24 22:11 Blood Culture - Preliminary Blood - Venous No growth after 48 hours. Assessment and Plan (1) Acute osteomyelitis: Status: Acute (2) Diabetic foot infection: Status: Acute Assessment and Plan: 63-year-old male wheelchair-bound with history of insulin-dependent diabetes mellitus, PVD status post right BKA 09/2023 and left foot TMA, opioid use disorder on methadone, history of left foot osteomyelitis, atrial fibrillation not on anticoagulation, hepatitis-C status post treatment, hypertension who presents to the emergency department for concerns of foot infection. 1.Sepsis due to diabetic left foot cellulitis/infected nonhealing ulcer: -sepsis resolved -vanco/Zosyn (2) -given recent treatment for osteomyelitis will await ID input prior to ordering PICC line 2.Insulin-dependent diabetes mellitus: -acceptable control on current therapies -lispro correctional scale -adjust as indicated 3.Opioid use disorder -stable well compensated on methadone 4.Paroxysmal atrial fibrillation -continues in sinus rhythm -continue current therapies -no anticoagulation recommendation at this time Lovenox . Full code Will require ongoing hospitalization for IV antibiotics to treat left foot cellulitis question osteomyelitis Quality Stroke Does the patient have a stroke diagnosis?: No VTE Prior VTE?: No VTE Risk Level:: Medical - moderate - high VTE Device Contraindication: Treatment Not Indicated VTE Drug Contraindication: N/A - Med Ordered
[2024-06-23 15:22] VITALS: BP 158/84; PULSE 55; RESP 18; TEMP 36; O2SAT 99
[2024-06-23 16:32] LABS: Glucose, Whole Blood 226 mg/dL (60-115)
--- NOTE | 2024-06-23 19:21 | HO.WOUND ---
Wound Consult: Initial 63yr old?Male admitted to [facility] on 06/21/24 00:23 - See progress notes and H&P for detailed history.? Wound consult follow up for Right BKA site and Left Lower Leg wounds POA.? Patient agreeable to assessment and photo documentation.? Patient educated on the importance of blood sugar control, he reports understanding. Right BKA Site Etiology: ?Diabetic wound Measurements: 2cm x 2.5cm x0.3 cm Wound Bed: adhernt yellow slough firmly attached central area Drainage / Odor: clifton yellow drainage noted on dressing - no odor noted Edges: ? well defined Shara wound: intact swelling noted - No Induration, Fluctuance or Warmth noted Pain: denies pain Goals of Treatment: Moisture management with Durafiber AG ? Left Lateral Plantar Foot Etiology: ?Diabetic wound - unchanged Measurements: 7cm x 5cm x 0.5cm Wound Bed: moist necrotic tissue with central area fluctance noted. Drainage / Odor: foul odor noted Edges: ? Irregular Shara wound: swelling noted No erythema noted ? No Induration noted Pain: denies pain Goals of Treatment: Moisture management with Durafiber AG ? Left Lateral Leg Left Leg Etiology: Venous wound Wound Bed: adherent yellow slough Drainage / Odor: serous drainage noted on dressing - mild odor noted Edges: ? Irregular Shara wound: Hemosiderin staining noted - scar tissue noted - No Induration, Fluctuance or Warmth noted Pain: denies pain Goals of Treatment: Moisture management with Durafiber AG ? Recommendations: 1. Turn and Reposition every 2 hours and as needed for patient comfort.? Use pillows or wedges to support off loading positions. 2. Off Load all bony prominences with use of pillows and heel boots if needed.? Apply Preventative foams where needed. ? 3. Monitor for incontinence and moisture control, use barrier creams when needed for prevention and treatment. 4. Provide adequate and supplemental nutrition.? 5. Order low air loss mattress. 6. Maintain blood glucose levels per Providers order. 7. Left Lateral Foot, Left Lateral Leg and Right BKA site - Elevate lower legs - Cleanse with Normal Saline, pat dry. Apply Durafiber AG to wound bed - cover with Dry Abd pad gauze wrap. Change every other day or for breakthrough drainage. Re-consult wound care Nurse for wound deterioration or wound changes.
[2024-06-23 19:34] VITALS: BP 157/74; PULSE 61; RESP 18; TEMP 36; O2SAT 100
[2024-06-23 20:26] LABS: Glucose, Whole Blood 186 mg/dL (60-115)
[2024-06-23] MEDS: Insulin Glargine,Hum.rec.anlog 100 UNIT/ML 10 ML VIAL 40 UNIT SUBCUT (20:41)
[2024-06-23] MEDS: Amitriptyline HCl 50 MG TABLET PO (20:43)
--- NOTE | 2024-06-24 00:10 | W.PM.IDCN ---
History of Present Illness Data of Consult Service Date: 06/23/24 Requesting physician: Richar Chávez Primary Care Provider: MD OVI Canales Reason for consult: left foot infection He presents with increased redness and swelling left foot. He has right BKA and has received apparently six weeks of IV Ertapenem. He developed MRSA wound 04/10. He has seen wound care. Review of Systems Review of Systems: Yes all other systems are reviewed and are negative PMFSH Past Medical History Medical History Hx of hepatitis Diabetic ulcer of right foot Atrial fibrillation Hypertension Diabetes Family History Family History Father History of lung cancer Mother History of diabetes mellitus Family history: reviewed and not pertinent Surgical History Surgical History 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 History of transmetatarsal amputation of foot (~09/2016) History of amputation of toe (~08/18/14) History of amputation of toe (~10/21/13) History of lipoma Social History Social History Household Members: Other Household Members Other:: mother Housing: Apartment Housing Other:: patient is homeless, couch surfing with friends/family Do you presently have visiting nurse or other home services: No Alcohol intake: never Patient Tobacco Use Status: Current everyday Tobacco user Tobacco use type: Cigarette Cigarettes Per Day: 6 Years Smoked: 49 Smoked in Last 30 Days: Yes Patient Interested in Nicotine Replacement: Yes Second Hand Smoke Exposure: Yes Use of substances other than those prescribed or required for medical reasons: No Substance Use Type: Crack/Cocaine Currently Displaying Signs/Symptoms of Drug Intoxication Withdrawal: No Any prior treatment program specific to substance use: No Do you feel safe in your current relationship?: No Current Relationship Advance Directives: Yes Advance Directives on File: Yes Advance Directives Date on File: 04/28/24 Do you have a plan to hurt others: No Plan Recently lost weight without trying: No Nutrition Risks: No Nutritional Risk Poor oral hygiene: No service: No Meds Allergies Allergy/AdvReac Type Severity Reaction Status Date / Time furosemide [Lasix] Allergy Intermediate Hives Verified 06/20/24 21:29 levofloxacin [Levaquin] Allergy Unknown Gastrointestinal Verified 06/20/24 21:29 Upset metronidazole [Flagyl] Allergy Unknown Unknown Verified 06/20/24 21:29 latex Allergy Rash Verified 06/20/24 21:29 contrast dye Allergy Unknown rash, hives Uncoded 10/24/23 15:09 Active Medications: Current Medications Acetaminophen (Acetaminophen 325 Mg Tablet) 650 mg PO Q6H PRN PRN Reason: Pain, Mild (Pain Scale 1-3), fever or headache Amitriptyline HCl (Amitriptyline Hcl 50 Mg Tablet) 50 mg PO BEDTIME [facility] Last Admin: 06/23/24 20:43 Dose: 50 mg Calcium Carbonate (Calcium Carbonate 750 Mg Tab.Chew) 750 mg PO Q4H PRN PRN Reason: Heartburn Diltiazem HCl (Diltiazem Hcl Cd 180 Mg Cap.Er.24h) 180 mg PO DAILY [facility]; Protocol Last Admin: 06/23/24 08:39 Dose: 180 mg Enoxaparin Sodium (Enoxaparin Sodium 40 Mg/0.4 Ml Syringe) 40 mg SUBCUT Q24H [facility] Last Admin: 06/23/24 08:38 Dose: 40 mg Glucose (Glucose Gel 15 Gm Gel..Gram.) 15 gm PO Q15M PRN; Protocol PRN Reason: per Hypoglycemia Standing Ord. Dextrose (D10) 250 mls @ 750 mls/hr IV Q15M PRN; Protocol PRN Reason: per Hypoglycemia Standing Ord. Piperacillin Sod/Tazobactam (Sod 4.5 gm/ Sodium Chloride) 100 mls @ 200 mls/hr IV Q6H [facility] Last Infusion: 06/23/24 19:15 Dose: Infused Vancomycin HCl 1,000 mg/ (Sodium Chloride) 270 mls @ 270 mls/hr IV Q12H [facility] Last Infusion: 06/23/24 14:29 Dose: Infused Insulin Glargine (Insulin Glargine,Hum.Rec.Anlog 100 Unit/Ml 10 Ml Vial) 40 unit SUBCUT BEDTIME [facility] Last Admin: 06/23/24 20:41 Dose: 40 unit Insulin Human Lispro (Insulin Lispro 100 Unit/Ml 3 Ml Vial) 0 unit SUBCUT QIDACHS [facility]; Protocol Last Admin: 06/23/24 20:41 Dose: 2 unit Magnesium Hydroxide (Milk Of Magnesia 30 Ml Oral.Susp) 30 ml PO DAILY PRN PRN Reason: Constipation Melatonin (Melatonin 3 Mg Tablet) 6 mg PO BEDTIME PRN PRN Reason: Insomnia Methadone HCl (Methadone Hcl 20 Mg/2 Ml Oral.Conc) 80 mg PO DAILY [facility] Last Admin: 06/23/24 08:38 Dose: 80 mg Ondansetron HCl (Ondansetron Hcl 4 Mg/2 Ml Vial) 4 mg IVPUSH Q8H PRN PRN Reason: Nausea and Vomiting Pharmacy Consult (Consult Rx Vancomycin Dosing) 1 each MISCELLANE DAILY PRN PRN Reason: Consult order Sodium Chloride (0.9 % Sodium Chloride Flush 3 Ml Syringe) 3 ml IVFLUSH QSHIFT [facility] Last Admin: 06/23/24 17:19 Dose: 3 ml Home Medications ?Medication ?Instructions ?Recorded ?Confirmed ?Last Taken ?Type amitriptyline 50 mg tablet 50 mg PO BEDTIME 12/09/20 06/21/24 06/20/24 History blood sugar diagnostic (FreeStyle #10 ea 03/08/22 06/21/24 Unknown History Lite Strips) insulin syringe-needle U-100 1 mL #10 ea 03/08/22 10/28/23 Unknown History 31 gauge x 5/16 (BD Insulin Syringe Ultra-Fine) diltiazem HCl 180 mg capsule,24 180 mg PO DAILY 04/09/24 06/21/24 06/20/24 History hr,extended release methadone 10 mg/mL oral concentrate 80 mg PO DAILY 04/10/24 06/21/24 06/20/24 History insulin glargine 100 unit/mL 40 unit subcut BEDTIME 06/21/24 06/21/24 06/20/24 History subcutaneous solution (Lantus U-100 Insulin) Physical Exam Vital Signs: Vital Signs: Last Vital Signs Temp 96.8 F 06/23/24 19:34 Pulse 61 06/23/24 19:34 Resp 18 06/23/24 19:34 BP 157/74 H 06/23/24 19:34 Pulse Ox 100 06/23/24 19:34 O2 Del Method Room Air 06/23/24 19:34 BMI result Body Mass Index 36.6 Extrem: Other: left foot redness especially laterally Results Labs 06/21/24 09:30 06/23/24 05:26 Labs: BMP 06/23/24 05:26 Creatinine 1.08 Microbiology Microbiology Results: Microbiology 06/21/24 09:30 Blood - Venous - Preliminary No growth after 48 hours. 06/20/24 22:11 Blood - Venous Blood Culture - Preliminary No growth after 48 hours. Assessment and Plan (1) Diabetic foot infection: Status: Acute (2) Acute osteomyelitis: Status: Acute Plan Patient seems to have developed MRSA He has acute OM now with most likely new organism left foot. I think under the circumstances would be appropriate for six weeks IV Daptomycin Weekly creatinine and CPK He can receive PICC. Ongoing Vascular and Wound evaluation.
[2024-06-24] MEDS: 0.9 % Sodium Chloride Flush 3 ML SYRINGE IVFLUSH ×3 (00:30→15:47)
[2024-06-24] MEDS: Piperacillin Sodium/Tazobactam 4.5 GM in 0.9 % Sodium Chloride 100 ML IV ×4 (00:56→18:03)
[2024-06-24] MEDS: vancomycin HCL 1,000 MG in 0.9 % Sodium Chloride 250 ML 270 MG IV (01:26)
[2024-06-24 04:00] VITALS: BP 153/70; PULSE 64; RESP 18; TEMP 36; O2SAT 99
[2024-06-24 06:45] LABS: MANUAL DIFF FLAG NO
[2024-06-24 06:56] LABS: Basophils Percent Auto 0.4 % (0-2); Eosinophils Absolute Auto 0.4 X10*3/uL (0.0-0.4); Eosinophils Percent Auto 4.1 % (0-4); Hematocrit 30.1 % (42.0-52.0); Imm Gran Abs Auto 0.07 X10*3/uL (0.00-0.03); Imm Gran Pct Auto 0.7 % (0.0-0.4); Lymphocytes Absolute Auto 2.6 X10*3/uL (1.2-4.9); Lymphocytes Percent Auto 26.3 % (20-40); Mean Corpuscular HGB Conc 29.9 g/dl (31.0-36.0); Mean Corpuscular Hemoglobin 24.5 pg (27.0-33.0); Mean Corpuscular Volume 81.8 fL (80.0-98.0); Mean Platelet Volume 9.7 fL (9.4-12.4); Monocytes Absolute Auto 0.7 X10*3/uL (0.1-1.2); Monocytes Percent Auto 7.5 % (2-11); Neutrophils Absolute Auto 5.9 x10*3/uL (2.0-8.3); Platelet Count 528 X10*3/uL (160-400); Red Blood Count 3.68 X10*6/uL (4.60-5.80); Red Cell Distribution Width 14.4 % (11.0-16.0); White Blood Count 9.7 X10*3/uL (4.8-10.8)
[2024-06-24 07:14] LABS: Alanine Aminotransferase 7 U/L (0-40); Albumin Level 3.1 g/dL (3.5-5.0); Alkaline Phosphatase 92 U/L (39-117); Anion Gap 11 (12-20); Aspartate Amino Transferase 10 U/L (5-37); Bilirubin Total 0.1 mg/dL (0.0-1.0); Blood Urea Nitrogen 14 mg/dL (9-16); Calcium 9.1 mg/dL (8.4-10.2); Carbon Dioxide 30 mmol/L (22-29); Chloride 105 mmol/L (96-108); Estimated Glomerular Filt Rate > 60; Glucose Fasting 206 mg/dL (60-99); Potassium 4.8 mmol/L (3.3-5.1); Sodium 141 mmol/L (135-145); Total Protein 8.2 g/dL (6.5-8.0)
[2024-06-24 07:41] VITALS: BP 170/76; PULSE 65; RESP 16; TEMP 36.1; O2SAT 100
[2024-06-24] MEDS: dilTIAZem HCL CD 180 MG CAP.ER.24H PO (07:49)
[2024-06-24] MEDS: Enoxaparin Sodium 40 MG/0.4 ML SYRINGE SUBCUT (07:49)
[2024-06-24] MEDS: methADONE HCl 20 MG/2 ML ORAL.CONC 80 MG PO (07:50)
[2024-06-24 08:09] LABS: Glucose, Whole Blood 125 mg/dL (60-115)
--- NOTE | 2024-06-24 10:55 | HO.PICC ---
PICC Line Insertion NPICC Diagnosis: osteomyelitis Indication: 6wks abt Pertinent Labs: reviewed Technique: Following informed consent including risks, benefits and alternatives and using sterile technique including cap and mask, sterile gown, glove and drape, the right arm was prepped and draped in the usual sterile fashion of full barrier technique with CHG. Following completion of [place] Protocol the skin and soft tissues were anesthetized with 1% Lidocaine plain. Using ultrasound guidance, right brachial vein access was obtained. Over an 0.018 wire through peel-away sheath, a 4fr single lumen PASV PICC line was positioned. Catheter length is 41cm internal length, 0cm external length, for a total trimmed length of 41cm. The procedure was performed in rm 272. Tip verification was performed by George Roberts with Sherlock 3CG. Tip located in SVC. Ultrasound was used to document vein patency and for needle entry. A formal ultrasound picture and cardiac rhythm strip was recorded. Vascular Gas Treater has released the line for use and it is currently dressed with a StatLock, Tegaderm, and CHG disc. Verification has been performed for blood return and line patency. Arm Circumference: 32cm Equipment: [employer] SOLO with Sherlock 3CG Catheter Type: 4FR single lumen PASV Lot #: [id number]
[2024-06-24 11:13] LABS: Glucose, Whole Blood 127 mg/dL (60-115)
[2024-06-24] MEDS: 0.9 % Sodium Chloride Flush 10 ML SYRINGE 5 ML IVFLUSH ×2 (11:15→21:44)
--- NOTE | 2024-06-24 12:14 | MHC.CM.PN ---
Pt. would like to go home with IV ABX, he has discussed this with provider. Pt. has daily nurse visits from [facility]. CM called [facility], they do not communicate on [facility], asked that info on pt. be faxed to: [phone]. [facility] phone # [phone]. Referral into [facility] to support this DC. MAGUI spoke to pt. and his grand dtr, who is his HUMAN RESOURCE ADVISER, and they said that he has managed IV ABX at home in the past.
--- NOTE | 2024-06-24 12:32 | P.PNIM_ITS ---
Subjective Subjective Date of Service: 06/24/24 Interval History: No acute issues overnight. PICC line placed this a.m. Review of Systems Denies chest pain Denies shortness of breath Denies nausea vomiting diarrhea Denies fever chills Physical Exam 2 Vital Signs: Vital Signs: Last Vital Signs Temp 96.9 F 06/24/24 07:41 Pulse 65 06/24/24 07:41 Resp 16 06/24/24 07:41 BP 170/76 H 06/24/24 07:41 Pulse Ox 100 06/24/24 07:41 O2 Del Method Room Air 06/24/24 07:41 BMI result Body Mass Index 36.6 Const: Other: Awake alert oriented x3 no acute distress Resp: Other: Clear to auscultation bilaterally no rales rhonchi or wheezes Cardio: Other: No S4; positive S1-S2; no S3 murmurs rubs or gallops GI: Other: Soft nontender nondistended normoactive bowel sounds Extrem: Other: No edema noted left lower extremity Objective Data Active Medications Acetaminophen (Acetaminophen 325 Mg Tablet) 650 mg PO Q6H PRN PRN Reason: Pain, Mild (Pain Scale 1-3), fever or headache Amitriptyline HCl (Amitriptyline Hcl 50 Mg Tablet) 50 mg PO BEDTIME [facility] Last Admin: 06/23/24 20:43 Dose: 50 mg Documented By: AYESHA Calcium Carbonate (Calcium Carbonate 750 Mg Tab.Chew) 750 mg PO Q4H PRN PRN Reason: Heartburn Diltiazem HCl (Diltiazem Hcl Cd 180 Mg Cap.Er.24h) 180 mg PO DAILY [facility]; Protocol Last Admin: 06/24/24 07:49 Dose: 180 mg Documented By: KEITH Enoxaparin Sodium (Enoxaparin Sodium 40 Mg/0.4 Ml Syringe) 40 mg SUBCUT Q24H [facility] Last Admin: 06/24/24 07:49 Dose: 40 mg Documented By: KEITH Glucose (Glucose Gel 15 Gm Gel..Gram.) 15 gm PO Q15M PRN; Protocol PRN Reason: per Hypoglycemia Standing Ord. Dextrose (D10) 250 mls @ 750 mls/hr IV Q15M PRN; Protocol PRN Reason: per Hypoglycemia Standing Ord. Piperacillin Sod/Tazobactam (Sod 4.5 gm/ Sodium Chloride) 100 mls @ 200 mls/hr IV Q6H [facility] Last Admin: 06/24/24 12:30 Dose: 200 mls/hr Documented By: KEITH Vancomycin HCl 1,000 mg/ (Sodium Chloride) 270 mls @ 270 mls/hr IV Q12H [facility] Last Infusion: 06/24/24 02:30 Dose: Infused Documented By: EMILYOIC Insulin Glargine (Insulin Glargine,Hum.Rec.Anlog 100 Unit/Ml 10 Ml Vial) 40 unit SUBCUT BEDTIME [facility] Last Admin: 06/23/24 20:41 Dose: 40 unit Documented By: AYESHA Insulin Human Lispro (Insulin Lispro 100 Unit/Ml 3 Ml Vial) 0 unit SUBCUT QIDACHS [facility]; Protocol Last Admin: 06/24/24 11:46 Dose: Not Given Documented By: KEITH Non-Admin Reason: No Insulin Coverage Magnesium Hydroxide (Milk Of Magnesia 30 Ml Oral.Susp) 30 ml PO DAILY PRN PRN Reason: Constipation Melatonin (Melatonin 3 Mg Tablet) 6 mg PO BEDTIME PRN PRN Reason: Insomnia Methadone HCl (Methadone Hcl 20 Mg/2 Ml Oral.Conc) 80 mg PO DAILY [facility] Last Admin: 06/24/24 07:50 Dose: 80 mg Documented By: KEITH Co-signed By: DIEGO Ondansetron HCl (Ondansetron Hcl 4 Mg/2 Ml Vial) 4 mg IVPUSH Q8H PRN PRN Reason: Nausea and Vomiting Pharmacy Consult (Consult Rx Vancomycin Dosing) 1 each MISCELLANE DAILY PRN PRN Reason: Consult order Sodium Chloride (0.9 % Sodium Chloride Flush 3 Ml Syringe) 3 ml IVFLUSH QSHIFT [facility] Last Admin: 06/24/24 07:50 Dose: 3 ml Documented By: KEITH Sodium Chloride (0.9 % Sodium Chloride Flush 10 Ml Syringe) 5 ml IVFLUSH TID [facility] Last Admin: 06/24/24 11:15 Dose: 5 ml Documented By: KEITH Labs 06/24/24 05:54 06/24/24 05:54 Labs: Laboratory Results - last 24 hr 06/23/24 06/23/24 06/23/24 12:10 16:13 20:21 MCV MCH MCHC RDW Plt Count MPV Immature Gran % (Auto) Neut % (Auto) Lymph % (Auto) [place] % (Auto) Eos % (Auto) Baso % (Auto) Lymph # (Auto) [place] # (Auto) Eos # (Auto) Baso # (Auto) Abs Immat Gran (auto) Absolute Neuts (auto) Absolute Nucleated RBC Nucleated RBC % (auto) Anion Gap Estim Creat Clear Calc Estimated GFR POC Glucose 226 H 186 H Fasting Glucose Calcium Total Bilirubin AST ALT Alkaline Phosphatase Total Protein Albumin Random Vancomycin 19.8 06/24/24 06/24/24 06/24/24 05:54 07:45 11:06 MCV 81.8 MCH 24.5 L MCHC 29.9 L RDW 14.4 Plt Count 528 H MPV 9.7 Immature Gran % (Auto) 0.7 H Neut % (Auto) 61.0 Lymph % (Auto) 26.3 [place] % (Auto) 7.5 Eos % (Auto) 4.1 H Baso % (Auto) 0.4 Lymph # (Auto) 2.6 [place] # (Auto) 0.7 Eos # (Auto) 0.4 Baso # (Auto) 0.0 Abs Immat Gran (auto) 0.07 H Absolute Neuts (auto) 5.9 Absolute Nucleated RBC 0.000 Nucleated RBC % (auto) 0.0 Anion Gap 11 L Estim Creat Clear Calc 109.0 Estimated GFR > 60 POC Glucose 125 H 127 H Fasting Glucose 206 H Calcium 9.1 Total Bilirubin 0.1 AST 10 ALT 7 Alkaline Phosphatase 92 Total Protein 8.2 H Albumin 3.1 L Random Vancomycin Microbiology Microbiology Results: Microbiology 06/21/24 09:30 - Preliminary Blood - Venous No growth after 48 hours. Assessment and Plan (1) Diabetic foot infection: Status: Acute Assessment and Plan: 63-year-old male wheelchair-bound with history of insulin-dependent diabetes mellitus, PVD status post right BKA 09/2023 and left foot TMA, opioid use disorder on methadone, history of left foot osteomyelitis, atrial fibrillation not on anticoagulation, hepatitis-C status post treatment, hypertension who presents to the emergency department for concerns of foot infection. 1.Sepsis due to diabetic left foot cellulitis/infected nonhealing ulcer: -sepsis resolved -vanco/Zosyn (3) -id input appreciated. Recommending 6 weeks of daptomycin. . . We will continue vanco and Zosyn today and give dose of daptomycin tomorrow before DC -PICC line placed this a.m. 2.Insulin-dependent diabetes mellitus: -acceptable control on current therapies -lispro correctional scale -adjust as indicated 3.Opioid use disorder -stable well compensated on methadone 4.Paroxysmal atrial fibrillation -continues in sinus rhythm -continue current therapies -no anticoagulation recommendation at this time Lovenox . Full code Will require ongoing hospitalization for IV antibiotics to treat left foot cellulitis question osteomyelitis (2) Acute osteomyelitis: Status: Acute Quality Stroke Does the patient have a stroke diagnosis?: No VTE Prior VTE?: No VTE Risk Level:: Medical - moderate - high VTE Device Contraindication: Treatment Not Indicated VTE Drug Contraindication: N/A - Med Ordered
--- NOTE | 2024-06-24 12:41 | P.CDIM_ITS ---
PROVIDER RESPONSE TEXT: To clarify, the appropriate diagnosis supported by the clinical indicators: Obesity Due to: Excess calories QUERY TEXT: PHYSICIAN'S DOCUMENTATION REQUEST Date of Query: 06/24/2024 10:13 AM EDT Patient Name: Pasquale Zapata Admit Date: 06/21/2024 Dear Richar Chávez DO, A review of the medical record indicates additional documentation may be needed. Please review below and update the documentation accordingly. Clinical Indicators: BMI 36.7kg Weight: 122.582kg 6ft If possible, please provide an associated diagnosis related to the abnormal BMI, such as: Obesity Obesity Due to Specify the cause Other (explain) Clinically unable to determine (explain) Thank you, Mehreen Null, CCS, CDIS Use of terms such as suspected, likely, concern for, or probable (associated with a specific diagnosi s that is being evaluated, monitored, or treated as if it exists) are acceptable and can be coded in the inpatient se tting, when documented at the time of discharge. Please use your independent medical judgment in providing your response. THIS QUERY IS PART OF THE PERMANENT MEDICAL RECORD
[2024-06-24 13:04] LABS: Vancomycin Random 21.6 mcg/mL (15-20)
--- NOTE | 2024-06-24 13:13 | HE.PHANOTE ---
RE: vanco Trough on 06/24 came back at 21.6 mg/L; changed dose to 500mg Q8H with predicted AUC of 418mg/L, trough of 14.7mg. Changed model to obese for better fit. Next level to be drawn 06/25 @1900
[2024-06-24 15:15] VITALS: BP 158/74; PULSE 59; RESP 18; TEMP 36.2; O2SAT 99
[2024-06-24 16:24] LABS: Glucose, Whole Blood 214 mg/dL (60-115)
[2024-06-24] MEDS: Insulin Lispro 100 UNIT/ML 3 ML VIAL SUBCUT (16:57)
[2024-06-24 20:00] VITALS: BP 170/76; PULSE 69; RESP 16; TEMP 36.1; O2SAT 100
[2024-06-24 20:58] LABS: Glucose, Whole Blood 127 mg/dL (60-115)
[2024-06-24] MEDS: Amitriptyline HCl 50 MG TABLET PO (21:41)
[2024-06-24] MEDS: Insulin Glargine,Hum.rec.anlog 100 UNIT/ML 10 ML VIAL 40 UNIT SUBCUT (21:41)
[2024-06-24] MEDS: vancomycin HCL 500 MG in 0.9 % Sodium Chloride 100 ML 110 MG IV (21:42)
[2024-06-25] MEDS: Piperacillin Sodium/Tazobactam 4.5 GM in 0.9 % Sodium Chloride 100 ML IV ×2 (00:49→06:13)
[2024-06-25] MEDS: 0.9 % Sodium Chloride Flush 10 ML SYRINGE 5 ML IVFLUSH (00:49)
[2024-06-25] MEDS: 0.9 % Sodium Chloride Flush 3 ML SYRINGE IVFLUSH ×2 (00:55→08:02)
[2024-06-25 04:00] VITALS: BP 145/64; PULSE 66; RESP 16; TEMP 36.1; O2SAT 100
[2024-06-25] MEDS: vancomycin HCL 500 MG in 0.9 % Sodium Chloride 100 ML 110 MG IV (05:03)
[2024-06-25 06:23] LABS: MANUAL DIFF FLAG NO
[2024-06-25 06:41] LABS: Basophils Percent Auto 0.3 % (0-2); Eosinophils Absolute Auto 0.4 X10*3/uL (0.0-0.4); Eosinophils Percent Auto 3.9 % (0-4); Hematocrit 30.2 % (42.0-52.0); Hemoglobin 9.2 g/dl (14.0-18.0); Imm Gran Abs Auto 0.08 X10*3/uL (0.00-0.03); Imm Gran Pct Auto 0.9 % (0.0-0.4); Lymphocytes Absolute Auto 2.4 X10*3/uL (1.2-4.9); Lymphocytes Percent Auto 25.4 % (20-40); Mean Corpuscular HGB Conc 30.5 g/dl (31.0-36.0); Mean Corpuscular Hemoglobin 24.7 pg (27.0-33.0); Mean Corpuscular Volume 81.2 fL (80.0-98.0); Mean Platelet Volume 9.9 fL (9.4-12.4); Monocytes Absolute Auto 0.6 X10*3/uL (0.1-1.2); Monocytes Percent Auto 6.4 % (2-11); Neutrophils Absolute Auto 5.8 x10*3/uL (2.0-8.3); Neutrophils Percent Auto 63.1 % (45-73); Platelet Count 458 X10*3/uL (160-400); Red Blood Count 3.72 X10*6/uL (4.60-5.80); Red Cell Distribution Width 14.5 % (11.0-16.0); White Blood Count 9.3 X10*3/uL (4.8-10.8)
[2024-06-25 06:46] LABS: Creatinine Clr Calc Pharmacy 117.6; Estimated Glomerular Filt Rate > 60
[2024-06-25 07:35] VITALS: BP 169/80; PULSE 65; RESP 18; TEMP 36.4; O2SAT 100
[2024-06-25 07:41] LABS: Glucose, Whole Blood 129 mg/dL (60-115)
[2024-06-25] MEDS: Enoxaparin Sodium 40 MG/0.4 ML SYRINGE SUBCUT (08:01)
[2024-06-25] MEDS: dilTIAZem HCL CD 180 MG CAP.ER.24H PO (08:01)
[2024-06-25] MEDS: methADONE HCl 20 MG/2 ML ORAL.CONC 80 MG PO (08:01)
[2024-06-25 11:24] LABS: Glucose, Whole Blood 221 mg/dL (60-115)
--- NOTE | 2024-06-25 11:49 | MHC.CM.PN ---
Patient is discharged to home today. He will receive IV ABX at home. [facility] home infusion will provide medication and supplies. Patient is active with [facility]. They will resume home services tomorrow. The agency has confirmed resumption of care. DC info to be hand faxed to agency. Patient has arranged for transportation home.
--- NOTE | 2024-06-25 12:20 | P.DS_ITS ---
DS: Providers Provider Date of Service: 06/25/24 Date of admission: 06/21/24 00:23 Date of discharge: 06/25/24 Primary care physician: Mac Clarke MD Consults: 06/21/24 00:09 Consult to Infectious Diseases Routine Consulting Provider: ORQUIDEA COREY Reason for consultation: Right foot osteomyelitis Has provider been notified: Yes 06/23/24 11:12 Consult to Wound Care Routine Reason for consultation: Diabetic ulcers to Left foot and Right BKA 06/23/24 15:01 Consult to Infectious Diseases Routine Consulting Provider: [facility] Reason for consultation: ? osteo Has provider been notified: Yes 06/25/24 11:34 Consult to Infectious Diseases Routine Consulting Provider: ORQUIDEA COREY Reason for consultation: osteo Has provider been notified: Yes 06/25/24 12:03 Consult to Infectious Diseases Routine Consulting Provider: ORQUIDEA COREY Reason for consultation: osteo Has provider been notified: Yes DS: Diagnosis Discharge Diagnosis (1) Diabetic foot infection: Status: Acute (2) Acute osteomyelitis: Status: Acute DS: Summary Hospital Course Hospital Course: 63-year-old male wheelchair-bound with history of insulin-dependent diabetes mellitus, PVD status post right BKA 09/2023 and left foot TMA, opioid use disorder on methadone, history of left foot osteomyelitis, atrial fibrillation not on anticoagulation, hepatitis-C status post treatment, hypertension who presents to the emergency department for concerns of foot infection. Of note, patient was recently admitted with right BKA stump osteomyelitis and discharged on 04/27/2024 with a ertapenem for total of 6 weeks. Patient states he started noticing redness and warmth of his left lower extremity about 2 days prior to presentation. Also had purulent foul-smelling drainage from ventral aspect of his left foot that began 2 days ago. No fever, chills, chest discomfort, palpitations, shortness of breath, abdominal pain, changes in urinary or bowel habits. Hospital course Patient was admitted to general medical floor and started on vanco and Zosyn. Infectious Disease was consulted and recommended 6 weeks of IV daptomycin. Patient underwent PICC line placement and received the 1st dose of daptomycin in-house without issue. He will be discharged home to complete a 6 week course of the same and will ask [facility] to follow. Time of discharge is stable and medically acceptable worsening Time Attestation Discharge Coordination Time (in mins): 35 Quality: Safe Use of Opioids Does Pt have an Active Cancer Diagnosis on the Problem List?: No Quality: Stroke Does the patient have a stroke diagnosis?: No Physical Exam Vital Signs: Vital Signs: Last Vital Signs Temp 97.5 F 06/25/24 07:35 Pulse 65 06/25/24 07:35 Resp 18 06/25/24 07:35 BP 169/80 H 06/25/24 07:35 Pulse Ox 100 06/25/24 07:35 O2 Del Method Room Air 06/25/24 07:35 BMI result Body Mass Index 36.6 Const: Other: Awake alert oriented x3 no acute distress Resp: Other: Clear to auscultation bilaterally no rales rhonchi or wheezes Cardio: Other: No S4; positive S1-S2; no S3 murmurs rubs or gallops GI: Other: Soft nontender nondistended normoactive bowel sounds Extrem: Other: No edema noted left lower extremity DS: Data Data Completed and Pending Completed studies during hospitalization [Text1]: Procedures Detachment at Right Lower Leg, High, Open Approach (03/03/23) Insertion of Infusion Device into Superior Vena Cava, Percutaneous Approach (04/09/24) Ultrasonography of Superior Vena Cava, Guidance (04/09/24) Labs on day of discharge: Laboratory Results - last 24 hr 06/24/24 06/24/24 06/24/24 12:39 16:18 20:46 WBC RBC Hgb Hct MCV MCH MCHC RDW Plt Count MPV Immature Gran % (Auto) Neut % (Auto) Lymph % (Auto) [place] % (Auto) Eos % (Auto) Baso % (Auto) Lymph # (Auto) [place] # (Auto) Eos # (Auto) Baso # (Auto) Abs Immat Gran (auto) Absolute Neuts (auto) Absolute Nucleated RBC Nucleated RBC % (auto) Creatinine Estim Creat Clear Calc Estimated GFR POC Glucose 214 H 127 H Random Vancomycin 21.6 H 06/25/24 06/25/24 06/25/24 05:52 07:38 11:06 WBC 9.3 RBC 3.72 L Hgb 9.2 L Hct 30.2 L MCV 81.2 MCH 24.7 L MCHC 30.5 L RDW 14.5 Plt Count 458 H MPV 9.9 Immature Gran % (Auto) 0.9 H Neut % (Auto) 63.1 Lymph % (Auto) 25.4 [place] % (Auto) 6.4 Eos % (Auto) 3.9 Baso % (Auto) 0.3 Lymph # (Auto) 2.4 [place] # (Auto) 0.6 Eos # (Auto) 0.4 Baso # (Auto) 0.0 Abs Immat Gran (auto) 0.08 H Absolute Neuts (auto) 5.8 Absolute Nucleated RBC 0.000 Nucleated RBC % (auto) 0.0 Creatinine 0.88 Estim Creat Clear Calc 117.6 Estimated GFR > 60 POC Glucose 129 H 221 H Random Vancomycin Preliminary micro results at discharge 06/21/24 09:30 - Preliminary Blood - Venous No growth after 48 hours. 06/20/24 22:11 Blood Culture - Preliminary Blood - Venous No growth after 48 hours. Discharge Plan Discharge Anticipated Discharge Date/Time: 06/25/24 12:16 Patient Disposition: Home Health Service Discharge Diagnosis: Acute osteomyelitis Referrals: [facility] [Other] - 1 Week [facility] [Outside] - 1 Week Mac Clarke MD [Primary Care Provider] - 1 Week Discharge Medications: New daptomycin 500 mg recon soln 950 mg IV Q24H 42 Days Rx Instructions: administer over 30 mins Continued (DME) Off loading shoe large See Rx Instructions .Route .MEDSUPPLY Qty: 1 0RF Rx Instructions: As directed (DME) Xeroform Petrolatum Dressing 1 X 8 bandage See Rx Instructions .ROUTE .MEDSUPPLY Qty: 200 0RF Rx Instructions: apply to foot wound daily (DME) adhesive tape 2 X 10 -yard tape See Rx Instructions .ROUTE .MEDSUPPLY Qty: 1 3RF Rx Instructions: apply to foot wound daily (DME) prosthetic Kit See Rx Instructions .Route Qty: 1 0RF Rx Instructions: As directed (DME) Bedside commode See Rx Instructions .Route .MEDSUPPLY Qty: 1 0RF Rx Instructions: As directed (DME) Shower Chair See Rx Instructions .Route .MEDSUPPLY Qty: 1 0RF Rx Instructions: As directed (DME) Walker See Rx Instructions .Route .MEDSUPPLY Qty: 1 0RF Rx Instructions: As directed amitriptyline 50 mg Tablet 50 mg PO BEDTIME diltiazem HCl 180 mg Capsule,Extended Release 24 Hr 180 mg PO DAILY methadone 10 mg/mL Concentrate 80 mg PO DAILY insulin glargine [Lantus U-100 Insulin] 100 unit/mL solution 40 unit subcut BEDTIME (DME) Wheel chair Kit See Rx Instructions .Route Qty: 1 0RF Rx Instructions: As directed (DME) FreeStyle Lite Strips Strip See Rx Instructions Not Applicable TID Qty: 10 Rx Instructions: As directed (DME) insulin syringe-needle U-100 [BD Insulin Syringe Ultra-Fine] 1 mL 31 gauge x 5/16 syringe See Rx Instructions .ROUTE DAILY Qty: 10 Rx Instructions: As directed (DME) Band-Aid Rolled Gauze 4 X 2.5 -yard bandage See Rx Instructions .ROUTE .MEDSUPPLY Qty: 30 3RF Rx Instructions: apply to foot wound daily (DME) Band-Aid Gauze Pads 3 X 3 bandage See Rx Instructions .ROUTE .MEDSUPPLY Qty: 25 3RF Rx Instructions: apply to foot wound daily Discharge Orders: Discharge Order (Routine); Ordered 06/25/24 Ordered By: Richar Chávez Diet: Advance to usual diet Activity on Discharge: As tolerated Stand Alone Forms: Patient Portal Discharge page Print Language: Guinean Care Plan Goals: Daptomycin 950 mg daily for 6 weeks; otherwise resume all previous medication Health Concerns: Follow-up with Infectious Disease; they will call for an appointment Plan of Treatment: Follow up with the PCP next available Assessment: See discharge summary
--- NOTE | 2024-06-25 12:23 | W.MHC.F2F ---
Service Date Service Date: 06/25/24 Encounter Date of encounter: 06/25/24 Encounter: Acute hospitalization Reasons for Services Signs and symptoms assessed: Stump care and PICC line care Reason for long term: wound care, medication management and teach disease management Homebound: Leaving the home is medically contraindicated at this time without the asist of a device and/or another person due th the listed conditions above and below. Reason homebound: unsteady gait / fall risk and unable to drive Certification: Based on the above findings, I certify that this patient is confined to the home and needs intermittent long term care, physical therapy and/or speech therapy, or continues to need occupational therapy. The patient is under my care, and I have initiated the establishment of the plan of care. The patient will be followed by a physician who will periodically review the plan of care. Time Spent With Patient Time: Total time managing care of this patient today ____ minutes.
[2024-06-25] MEDS: Insulin Lispro 100 UNIT/ML 3 ML VIAL SUBCUT (13:08)
[2024-06-25] MEDS: DAPTOmycin 950 MG in 0.9 % Sodium Chloride 50 ML 100 MG IV (13:09)
--- NOTE | 2024-06-25 15:26 | PC.NURSE ---
dressing changed per orders, patient tolerated procedure well.
[2024-06-25 15:55] VITALS: BP 148/71; PULSE 59; RESP 18; TEMP 36.2; O2SAT 98
[2024-06-25 16:19] LABS: Glucose, Whole Blood 125 mg/dL (60-115)
--- NOTE | 2024-06-26 14:16 | MHC.CM.PN ---
Late charting: a call was received from the [facility]. She confirmed that [facility] will be providing home services for this patient.
== END 2024-06-25 17:52 | disposition home health service (06) | DRG 720 ==
LOC: HO.ED 06-21 00:18 → HO.EDOVER 06-21 01:08 → HO.S3 06-21 12:52
PROVIDERS: Internal Medicine; Admitting Provider Student in an Organized Health Care Education/Training Program; Emergency Provider Emergency Medicine; PCP Internal Medicine; Visit Provider Hospitalist
DX: A41.9 Sepsis, unspecified organism (principal); E11.51 Type 2 diabetes mellitus with diabetic peripheral angiopathy without gangrene; E11.621 Type 2 diabetes mellitus with foot ulcer; M86.172 Other acute osteomyelitis, left ankle and foot; L97.529 Non-pressure chronic ulcer of other part of left foot with unspecified severity; L03.116 Cellulitis of left lower limb; D64.9 Anemia, unspecified; E11.628 Type 2 diabetes mellitus with other skin complications; F17.210 Nicotine dependence, cigarettes, uncomplicated; I48.0 Paroxysmal atrial fibrillation; Z71.6 Tobacco abuse counseling; B95.62 Methicillin resistant Staphylococcus aureus infection as the cause of diseases classified elsewhere; Z89.511 Acquired absence of right leg below knee; Z91.040 Latex allergy status; Z91.041 Radiographic dye allergy status; E66.09 Other obesity due to excess calories; Z68.36 Body mass index [BMI] 36.0-36.9, adult; F11.20 Opioid dependence, uncomplicated; Z79.4 Long term (current) use of insulin; Z79.899 Other long term (current) drug therapy
CPT/HCPCS: 36415; 36573; 73620; 73718; 80048; 80053; 80202; 82565; 82947; 83605; 85025; 85652; 86140; 87040; 99285; C1751; J0878; J1335; J1650; J2543; J3370; J3371

== ENCOUNTER → 2024-06-20 21:49 | Outpatient (BNV) | payer OTHER, SELFPAY | PROVIDERS: Emergency Provider Emergency Medicine; PCP Internal Medicine; Visit Provider Student in an Organized Health Care Education/Training Program | DX: M86.172 Other acute osteomyelitis, left ankle and foot (principal); E11.628 Type 2 diabetes mellitus with other skin complications; L08.9 Local infection of the skin and subcutaneous tissue, unspecified; I48.0 Paroxysmal atrial fibrillation | CPT/HCPCS: 99222; 99232; 99233; 99239; 99499; G0180 ==

== ENCOUNTER → 2024-06-21 00:23 | Outpatient (BNV) | payer OTHER, SELFPAY | PROVIDERS: Admitting Provider Student in an Organized Health Care Education/Training Program; Emergency Provider Emergency Medicine; PCP Internal Medicine; Visit Provider Internal Medicine | DX: E11.628 Type 2 diabetes mellitus with other skin complications (principal); L08.9 Local infection of the skin and subcutaneous tissue, unspecified; M86.10 Other acute osteomyelitis, unspecified site | CPT/HCPCS: 99222 ==

== ENCOUNTER 2024-08-02 10:40 | Inpatient (IN) | payer OTHER, SELFPAY ==
--- NOTE | ~2024-08-02 | XR_ITS ---
EXAMINATION: XR FOOT, LEFT CLINICAL INFORMATION: Left foot wound. COMPARISON: Most recent left foot MRI dated 06/22/2024. TECHNIQUE: AP, lateral, and oblique views of the left foot. FINDINGS: Redemonstration of transmetatarsal amputation. Anterior soft tissue edema. No radiopaque foreign body. No new osseous erosion or periosteal reaction. No fracture or dislocation. Small plantar and dorsal calcaneal spurs. XR/XR foot LT min 3V IMPRESSION: Transmetatarsal amputation with anterior soft tissue edema. No new osseous erosion or periosteal reaction to suggest acute osteomyelitis. Acute osteomyelitis may be occult on plain radiographs, and if there is clinical concern, MRI without and with contrast could help further evaluate. Electronically signed by: Nolberto Cassidy MD 08/02/2024 01:25 PM EDT
--- NOTE | ~2024-08-02 | MR_ITS ---
EXAMINATION: MR LOWER EXTREMITY WITHOUT CONTRAST, LEFT CLINICAL INFORMATION: Chronic diabetic foot ulcer. Evaluate for osteomyelitis. COMPARISON: X-ray of the left foot 08/02/2024. MRI of the left foot June 2024. TECHNIQUE: MRI of the left foot was performed using routine sequences on a high-field scanner. Patient refused contrast and therefore contrast was not administered. FINDINGS: The exam is partially limited by image-degrading motion artifact. There is a superficial defect likely ulceration along the plantar lateral aspect of the foot at the level of the distal end of the remaining portion of the 5th metatarsal. This defect measures 10 mm transverse, 13 mm craniocaudal and 3 mm in depth. The defect extends to the level of the bone or just superficial to the level of the bone by perhaps 1 mm. There is additional more generalized low T1 and bright T2 signal in the surrounding subcutaneous soft tissues compatible with cellulitis. There is diffuse abnormal signal throughout the entire remaining 5st metatarsal. This is manifested by low T1/bright T2 signal. There appears to be a small erosion or tubular focus of signal abnormality extending along the central intramedullary aspect of the bone measuring 4 mm transverse which is not seen previously. Less likely this reflects a fracture. No definite effusion of the 5th tarsometatarsal joint. Cuboid intact. Other than the postsurgical changes the remaining bony joints are normal. Plantar fascia: Intact. Postsurgical changes distally. 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 Postsurgical changes distally. Probable generalized skin thickening along the dorsal aspect of the foot unchanged. Additional generalized fluid-like signal in the subcutaneous soft tissues compatible with generalized edema. MR/MR foot LT wo con IMPRESSION: Superficial ulceration with surrounding cellulitis and with underlying osteomyelitis of the 5th metatarsal. The marrow changes have significantly progressed compared with the June MRI examination. The ulceration is new compared to prior. 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 Generalized edema in the subcutaneous soft tissues less than previous. Electronically signed by: Wili Mir MD 08/03/2024 02:11 PM EDT
[2024-08-02 10:47] VITALS: BP 148/70; PULSE 78; RESP 16; TEMP 37; O2SAT 98; BMI 31.2
--- NOTE | 2024-08-02 11:53 | ED.SKABFB ---
HPI - Skin/Abscess/Foreign Bdy General Chief complaint: Skin/Abscess/Foreign Body Stated complaint: Infected wound medication not working Time Seen by Provider: 08/02/24 11:52 Source: patient Mode of arrival: ambulatory Limitations: no limitations History of Present Illness ED Provider: Edilma CARTER HPI narrative: 63 yo wheelchair bound male with history of diabetes, PVD s/p right BKA 09/2023, chronic pain on methadone, history of left ankle/foot osteomyelitis with hx TMA, atrial fibrillation not on anticoagulation, HTN, hepatitis C s/p treatment in 2009 presents to the emergency department with chronic left foot wound worsening over the past few days, he reports the wound has increased drainage, pain, odor. Reports he was admitted in June and was diagnosed with osteomyelitis of the left foot, was discharged home on IV antibiotics which he completed yesterday despite completing these antibiotics his symptoms seems to be getting worse. Denies fevers, chills, numbness, tingling, headache, vision changes, chest pain, shortness breath, nausea, vomiting, abdominal pain Related Data Home Medications ?Medication ?Instructions ?Recorded ?Confirmed amitriptyline 50 mg tablet 50 mg PO BEDTIME 12/09/20 06/21/24 blood sugar diagnostic (FreeStyle #10 ea 03/08/22 06/21/24 Lite Strips) insulin syringe-needle U-100 1 mL #10 ea 03/08/22 10/28/23 31 gauge x 5/16 (BD Insulin Syringe Ultra-Fine) diltiazem HCl 180 mg capsule,24 180 mg PO DAILY 04/09/24 06/21/24 hr,extended release methadone 10 mg/mL oral concentrate 80 mg PO DAILY 04/10/24 06/21/24 insulin glargine 100 unit/mL 40 unit subcut BEDTIME 06/21/24 06/21/24 subcutaneous solution (Lantus U-100 Insulin) Previous Rx's ?Medication ?Instructions ?Recorded Off loading shoe #1 ea 12/28/20 bismuth tribrom-petrolatum,wh 1 X #200 ea 02/21/21 8 bandage (Xeroform Petrolatum Dressing) adhesive tape 2 X 10 yard #1 ea 06/16/21 prosthetics (prosthetic) #1 ea 06/16/21 chair, wheel (Wheel chair) #1 ea 03/12/23 Bedside commode #1 ea 04/18/23 Shower Chair #1 ea 04/18/23 Walker #1 ea 05/06/23 gauze bandage 3 X 3 (Band-Aid #25 ea 09/24/23 Gauze Pads) gauze bandage 4 X 2.5 yard #30 ea 09/24/23 (Band-Aid Rolled Gauze) daptomycin 500 mg intravenous 950 mg IV Q24H osteomylitis 6 weeks 06/25/24 solution Allergies Allergy/AdvReac Type Severity Reaction Status Date / Time furosemide [Lasix] Allergy Intermediate Hives Verified 08/02/24 10:50 levofloxacin [Levaquin] Allergy Unknown Gastrointestinal Verified 08/02/24 10:50 Upset metronidazole [Flagyl] Allergy Unknown Unknown Verified 08/02/24 10:50 latex Allergy Rash Verified 08/02/24 10:50 contrast dye Allergy Unknown rash, hives Uncoded 10/24/23 15:09 Review of Systems Review of Systems: Yes all other systems are reviewed and are negative [facility] Past Medical History Attestation statement: The following information was validated with the patient. Source: old records reviewed and nursing notes reviewed Medical History Hx of hepatitis Diabetic ulcer of right foot Atrial fibrillation Hypertension Diabetes Surgical History 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 History of transmetatarsal amputation of foot (~09/2016) History of amputation of toe (~08/18/14) History of amputation of toe (~10/21/13) History of lipoma Family History Family History Father History of lung cancer Mother History of diabetes mellitus Social History Social History Household Members: Other Household Members Other:: mother Housing: Apartment Housing Other:: patient is homeless, couch surfing with friends/family Do you presently have visiting nurse or other home services: No Alcohol intake: never Patient Tobacco Use Status: Current everyday Tobacco user Tobacco use type: Cigarette Cigarettes Per Day: 6 Years Smoked: 49 Smoked in Last 30 Days: Yes Second Hand Smoke Exposure: Yes Use of substances other than those prescribed or required for medical reasons: No Substance Use Type: Crack/Cocaine Advance Directives: Yes Advance Directives on File: Yes Advance Directives Date on File: 04/28/24 service: No Physical Exam Vital Signs: Vital Signs: Last Vital Signs Temp 98.3 F 08/02/24 11:59 Pulse 67 08/02/24 11:59 Resp 16 08/02/24 11:59 BP 132/62 08/02/24 11:59 Pulse Ox 97 08/02/24 11:59 O2 Del Method Room Air 08/02/24 11:59 BMI result Body Mass Index 31.2 vss Appearance: Alert.? Oriented X3.? No acute distress.? Head: Normocephalic, atraumatic, no step-offs or deformities Eyes: Pupils equal, round and reactive to light.? ENT: Pharynx normal.? Neck: Normal inspection.? Neck supple.? CVS: Normal heart rate and rhythm.? Pulses normal.? Respiratory: No respiratory distress.? Breath sounds normal.? Abdomen: Soft and nontender.? Skin: Skin warm and dry.? Normal skin color.? Normal skin turgor.? Extremities: No lower extremity edema.? No calf ttp. 5/5 strength to bilateral upper extremities. Right BKA. Left toes amputated, left foot with redness, warmth, purulent discharge from the dorsum of the left foot. Neuro: Oriented X 3.? No motor deficit.? No sensory deficit. CN 2-12 intact Course Reevaluation(s) Reevaluation #1: Upon chart review it appears as though patient was on 950 mg of IV daptomycin for 6 weeks every 24 hours. Will reach out to Infectious Disease for input Time: 11:58 Reevaluation #2: ID agrees w/ my tx plan of zosyn and doxycycline, recommends consulting vascular possible amputation. Vascular agrees. Plan hospital admission. Leukocytosis noted on labs w/ microcytic anemia likley from infection. Lactic positive. CRP markedly elevated. Imaging pending. Time: 13:17 Medical Decision Making Medical Decision Making MDM Narrative: 63-year-old male recently diagnosed with osteomyelitis who completed antibiotics yesterday presents with worsening left lower extremity wound despite antibiotic Physical exam with Right BKA. , left toe amputation with erythema, warmth and purulent discharge. History and physical exam concerning for recurrent osteomyelitis versus cellulitis. No signs of necrosis at this time. Palpable femoral pulses bilaterally unlikely arterial or venous occlusion Plan labs, inflammatory markers, imaging Differential Diagnosis Differential Diagnoses: The differential diagnosis associated with the presentation includes History and physical exam concerning for recurrent osteomyelitis versus cellulitis. No signs of necrosis at this time. Palpable femoral pulses bilaterally unlikely arterial or venous occlusion Admission/Observation Consideration of admission/observation: Escalation of care including admission/observation considered Likely Consult Healthcare Provider Management of the patient was discussed with: Inspector And Tester (Infectious disease) Lab Data MDM Lab Attestation statement: I reviewed the patient's lab results. 08/02/24 12:37 08/02/24 12:37 Labs: Lab Results 08/02/24 Range/Units 12:37 WBC 13.3 H (4.8-10.8) X10*3/uL RBC 3.39 L (4.60-5.80) X10*6/uL Hgb 8.3 L (14.0-18.0) g/dl Hct 27.1 L (42.0-52.0) % MCV 79.9 L (80.0-98.0) fL MCH 24.5 L (27.0-33.0) pg MCHC 30.6 L (31.0-36.0) g/dl RDW 14.4 (11.0-16.0) % Plt Count 439 H (160-400) X10*3/uL MPV 9.1 L (9.4-12.4) fL Immature Gran % (Auto) 0.4 (0.0-0.4) % Neut % (Auto) 75.9 H (45-73) % Lymph % (Auto) 15.1 L (20-40) % [place] % (Auto) 7.0 (2-11) % Eos % (Auto) 1.4 (0-4) % Baso % (Auto) 0.2 (0-2) % Lymph # (Auto) 2.0 (1.2-4.9) X10*3/uL [place] # (Auto) 0.9 (0.1-1.2) X10*3/uL Eos # (Auto) 0.2 (0.0-0.4) X10*3/uL Baso # (Auto) 0.0 (0.0-0.2) X10*3/uL Abs Immat Gran (auto) 0.05 H (0.00-0.03) X10*3/uL Absolute Neuts (auto) 10.1 H (2.0-8.3) x10*3/uL Absolute Nucleated RBC 0.000 (0.0-0.012) X10*3/uL Nucleated RBC % (auto) 0.0 (0.0-0.2) /100WBC ESR 115 H (0-15) MM/HR Sodium 136 (135-145) mmol/L Potassium 3.9 (3.3-5.1) mmol/L Chloride 100 (96-108) mmol/L Carbon Dioxide 27 (22-29) mmol/L Anion Gap 13 (12-20) BUN 15 (9-16) mg/dL Creatinine 1.02 (0.5-1.4) mg/dL Estim Creat Clear Calc 93.7 Estimated GFR > 60 Random Glucose 179 H (60-115) mg/dL Lactic Acid 2.1 H* (0.5-2.0) mmol/L Calcium 8.9 (8.4-10.2) mg/dL Magnesium 1.9 (1.6-2.6) mg/dL Total Bilirubin 0.1 (0.0-1.0) mg/dL AST 9 (5-37) U/L ALT 9 (0-40) U/L Alkaline Phosphatase 78 (39-117) U/L C-Reactive Protein 5.41 H (< or = 0.50) mg/dL Total Protein 8.2 H (6.5-8.0) g/dL Albumin 3.0 L (3.5-5.0) g/dL Independent Interpretation I performed an independent interpretation of an: Plain X-Ray Radiology Impression Discussion of test interpretation with radiology: I have reviewed the radiologist's reading. External Record Review External record reviewed: Inpatient record, Office record, Outpatient record, Prior outpatient labs, Prior outpatient radiology, Primary care record and Outside ED record Critical Care Time Critical Care Time Critical Care Time: Yes Total Critical Care Time: 45 Attestation: I attest to this time spent taking care of the patient, obtaining history, physical, reviewing labs, imaging, speaking to my attending, speaking to specialist. Discharge Plan Discharge Clinical Impression: Acute osteomyelitis Patient Disposition: Still a Patient Prescriptions: No Action (DME) Off loading shoe large See Rx Instructions .Route .MEDSUPPLY Qty: 1 0RF Rx Instructions: As directed (DME) Xeroform Petrolatum Dressing 1 X 8 bandage See Rx Instructions .ROUTE .MEDSUPPLY Qty: 200 0RF Rx Instructions: apply to foot wound daily (DME) adhesive tape 2 X 10 -yard tape See Rx Instructions .ROUTE .MEDSUPPLY Qty: 1 3RF Rx Instructions: apply to foot wound daily (DME) prosthetic Kit See Rx Instructions .Route Qty: 1 0RF Rx Instructions: As directed (DME) Bedside commode See Rx Instructions .Route .MEDSUPPLY Qty: 1 0RF Rx Instructions: As directed (DME) Shower Chair See Rx Instructions .Route .MEDSUPPLY Qty: 1 0RF Rx Instructions: As directed (DME) Walker See Rx Instructions .Route .MEDSUPPLY Qty: 1 0RF Rx Instructions: As directed amitriptyline 50 mg Tablet 50 mg PO BEDTIME diltiazem HCl 180 mg Capsule,Extended Release 24 Hr 180 mg PO DAILY methadone 10 mg/mL Concentrate 80 mg PO DAILY insulin glargine [Lantus U-100 Insulin] 100 unit/mL solution 40 unit subcut BEDTIME daptomycin 500 mg recon soln 950 mg IV Q24H 42 Days Rx Instructions: administer over 30 mins (DME) Wheel chair Kit See Rx Instructions .Route Qty: 1 0RF Rx Instructions: As directed (DME) FreeStyle Lite Strips Strip See Rx Instructions Not Applicable TID Qty: 10 Rx Instructions: As directed (DME) insulin syringe-needle U-100 [BD Insulin Syringe Ultra-Fine] 1 mL 31 gauge x 5/16 syringe See Rx Instructions .ROUTE DAILY Qty: 10 Rx Instructions: As directed (DME) Band-Aid Rolled Gauze 4 X 2.5 -yard bandage See Rx Instructions .ROUTE .MEDSUPPLY Qty: 30 3RF Rx Instructions: apply to foot wound daily (DME) Band-Aid Gauze Pads 3 X 3 bandage See Rx Instructions .ROUTE .MEDSUPPLY Qty: 25 3RF Rx Instructions: apply to foot wound daily Print Language: Brazilian
[2024-08-02 11:59] VITALS: BP 132/62; PULSE 67; RESP 16; TEMP 36.8; O2SAT 97
[2024-08-02 12:45] LABS: MANUAL DIFF FLAG NO
[2024-08-02 12:48] LABS: Basophils Percent Auto 0.2 % (0-2); Eosinophils Absolute Auto 0.2 X10*3/uL (0.0-0.4); Eosinophils Percent Auto 1.4 % (0-4); Hematocrit 27.1 % (42.0-52.0); Hemoglobin 8.3 g/dl (14.0-18.0); Imm Gran Abs Auto 0.05 X10*3/uL (0.00-0.03); Imm Gran Pct Auto 0.4 % (0.0-0.4); Lymphocytes Percent Auto 15.1 % (20-40); Mean Corpuscular HGB Conc 30.6 g/dl (31.0-36.0); Mean Corpuscular Hemoglobin 24.5 pg (27.0-33.0); Mean Corpuscular Volume 79.9 fL (80.0-98.0); Mean Platelet Volume 9.1 fL (9.4-12.4); Monocytes Absolute Auto 0.9 X10*3/uL (0.1-1.2); Neutrophils Absolute Auto 10.1 x10*3/uL (2.0-8.3); Neutrophils Percent Auto 75.9 % (45-73); Platelet Count 439 X10*3/uL (160-400); Red Blood Count 3.39 X10*6/uL (4.60-5.80); Red Cell Distribution Width 14.4 % (11.0-16.0); White Blood Count 13.3 X10*3/uL (4.8-10.8)
[2024-08-02 13:00] LABS: Alanine Aminotransferase 9 U/L (0-40); Alkaline Phosphatase 78 U/L (39-117); Anion Gap 13 (12-20); Aspartate Amino Transferase 9 U/L (5-37); Bilirubin Total 0.1 mg/dL (0.0-1.0); Blood Urea Nitrogen 15 mg/dL (9-16); C Reactive Protein 5.41 mg/dL (< or = 0.50); Calcium 8.9 mg/dL (8.4-10.2); Carbon Dioxide 27 mmol/L (22-29); Chloride 100 mmol/L (96-108); Creatinine Clr Calc Pharmacy 93.7; Estimated Glomerular Filt Rate > 60; Glucose Random 179 mg/dL (60-115); Magnesium 1.9 mg/dL (1.6-2.6); Potassium 3.9 mmol/L (3.3-5.1); Sodium 136 mmol/L (135-145); Total Protein 8.2 g/dL (6.5-8.0)
[2024-08-02 13:12] LABS: Lactic Acid 2.1 mmol/L (0.5-2.0)
[2024-08-02 13:22] LABS: Erythrocyte Sedimentation Rate 115 MM/HR (0-15)
--- NOTE | 2024-08-02 13:35 | P.HPHOSP_ITS ---
History of Present Illness Date of Service: 08/02/24 Attending physician on admission: Bennett Cazares Chief Complaint: Worsening left foot infection Pt is a 63-year-old male with a PMH significant for? PVD s/p right BKA 09/2023, insulin-dependent type 2 diabetes, hx of left ankle/foot osteomyelitis, TMA, AFib not on anticoagulation, HTN, hepatitis-C s/p tx in 2009, and chronically wheelchair-bound who presents to the ED with?worsening chronic left foot diabetic foot infection. Patient was recently admitted to the hospital on 06/21- 06/25 and treated for acute osteomyelitis of left foot. Was discharged home with PICC line for treatment with daptomycin x6 weeks which he completed yesterday. Reports has been taking medications as prescribed and did not miss any dosages. Despite treatment, patient has been experiencing increased left leg pain, redness, swelling, and with foul-smelling and purulent discharge from open wound. No fever, chills, nausea, vomiting, abdominal pain. No chest pain/pressure, or palpitations. Denies shortness or breath or difficulty breathing. ED providers reached to infectious disease who recommended admitting patient for IV doxy and Zosyn and vascular surgery consult for likely amputation. In the ED pt was slightly hypertensive at 148/70, vitals otherwise WNL. Labs were significant for leukocytosis of 13.3, microcytic anemia of 8.3/27.1, lactic acid 2.1, ESR 115, CRP 5.41, and albumin 3.0. X-ray of left foot found TMA with anterior soft tissue edema but no evidence to suggest acute osteomyelitis. Pt was treated with IVF, doxycycline, and Zosyn. Pt will be admitted to the hospital for treatment and further evaluation of worsening chronic diabetic foot infection concerning for osteomyelitis that failed outpatient therapy. Review of Systems 2 Review of Systems: Foul-smelling and purulent discharge from chronic foot wound Left lower extremity swelling, redness, pain Patient denies any other acute medical complaints at this time [facility] Medical History Hx of hepatitis Diabetic ulcer of right foot Atrial fibrillation Hypertension Diabetes Family History Father History of lung cancer Mother History of diabetes mellitus Surgical History 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 History of transmetatarsal amputation of foot (~09/2016) History of amputation of toe (~08/18/14) History of amputation of toe (~10/21/13) History of lipoma Social History Household Members: Other Household Members Other:: mother Housing: Apartment Housing Other:: patient is homeless, couch surfing with friends/family Do you presently have visiting nurse or other home services: No Alcohol intake: never Patient Tobacco Use Status: Current everyday Tobacco user Tobacco use type: Cigarette Cigarettes Per Day: 6 Years Smoked: 49 Smoked in Last 30 Days: Yes Second Hand Smoke Exposure: Yes Use of substances other than those prescribed or required for medical reasons: No Substance Use Type: Crack/Cocaine Advance Directives: Yes Advance Directives on File: Yes Advance Directives Date on File: 04/28/24 service: No Meds Allergies Allergy/AdvReac Type Severity Reaction Status Date / Time furosemide [Lasix] Allergy Intermediate Hives Verified 08/02/24 10:50 levofloxacin [Levaquin] Allergy Unknown Gastrointestinal Verified 08/02/24 10:50 Upset metronidazole [Flagyl] Allergy Unknown Unknown Verified 08/02/24 10:50 latex Allergy Rash Verified 08/02/24 10:50 contrast dye Allergy Unknown rash, hives Uncoded 10/24/23 15:09 Active Medications: Current Medications Sodium Chloride (Ns) 3,129.78 mls @ 3,129.78 mls/hr 30 ml/kg infuse over 1 hr (3129.78 ml) IV .Q1H STA Stop: 08/02/24 13:49 Doxycycline Hyclate 100 mg/ (Sodium Chloride) 250 mls @ 166.67 mls/hr IV ONCE ONE Stop: 08/02/24 14:41 Home Medications ?Medication ?Instructions ?Recorded ?Confirmed ?Last Taken ?Type amitriptyline 50 mg tablet 50 mg PO BEDTIME 12/09/20 06/21/24 06/20/24 History blood sugar diagnostic (Laura #10 ea 03/08/22 06/21/24 Unknown History Lite Strips) insulin syringe-needle U-100 1 mL #10 ea 03/08/22 10/28/23 Unknown History 31 gauge x 5/16 (BD Insulin Syringe Ultra-Fine) diltiazem HCl 180 mg capsule,24 180 mg PO DAILY 04/09/24 06/21/24 06/20/24 History hr,extended release methadone 10 mg/mL oral concentrate 80 mg PO DAILY 04/10/24 06/21/24 06/20/24 History insulin glargine 100 unit/mL 40 unit subcut BEDTIME 06/21/24 06/21/24 06/20/24 History subcutaneous solution (Lantus U-100 Insulin) doxycycline hyclate 100 mg capsule 100 mg PO BID 08/02/24 Unknown History Physical Exam 2 Vital Signs and Narrative: Vital Signs: Last Vital Signs Temp 98.3 F 08/02/24 11:59 Pulse 67 08/02/24 11:59 Resp 16 08/02/24 11:59 BP 132/62 08/02/24 11:59 Pulse Ox 97 08/02/24 11:59 O2 Del Method Room Air 08/02/24 11:59 BMI result Body Mass Index 31.2 General: AOx3, no acute distress Resp: CTA bilaterally CVS: S1, S2, RRR GI: +BS, NT, no distention Skin: Warm, dry Neuro: Cranial nerves II-XII grossly intact bilaterally. Motor grossly intact bilaterally Extremities: Right BKA. Left lower extremity with swelling, erythema, and tenderness. Left TMA with large open wound lateral aspect of distal left foot. Foul-smelling. As pictured below Psych: Appropriate affect Results Labs 08/02/24 12:37 08/02/24 12:37 Labs: Laboratory Results - last 24 hr 08/02/24 12:37 MCV 79.9 L MCH 24.5 L MCHC 30.6 L RDW 14.4 Plt Count 439 H MPV 9.1 L Immature Gran % (Auto) 0.4 Neut % (Auto) 75.9 H Lymph % (Auto) 15.1 L [place] % (Auto) 7.0 Eos % (Auto) 1.4 Baso % (Auto) 0.2 Lymph # (Auto) 2.0 [place] # (Auto) 0.9 Eos # (Auto) 0.2 Baso # (Auto) 0.0 Abs Immat Gran (auto) 0.05 H Absolute Neuts (auto) 10.1 H Absolute Nucleated RBC 0.000 Nucleated RBC % (auto) 0.0 ESR 115 H Anion Gap 13 Estim Creat Clear Calc 93.7 Estimated GFR > 60 Random Glucose 179 H Lactic Acid 2.1 H* Calcium 8.9 Magnesium 1.9 Total Bilirubin 0.1 AST 9 ALT 9 Alkaline Phosphatase 78 C-Reactive Protein 5.41 H Total Protein 8.2 H Albumin 3.0 L Imaging Radiologist's Impressions: Impressions Foot X-Ray 08/02/24 11:53 IMPRESSION: Transmetatarsal amputation with anterior soft tissue edema. No new osseous erosion or periosteal reaction to suggest acute osteomyelitis. Acute osteomyelitis may be occult on plain radiographs, and if there is clinical concern, MRI without and with contrast could help further evaluate. Electronically signed by: Nolberto Cassidy MD 08/02/2024 01:25 PM EDT RP Workstation: [email or web address] Medical Assessment and Plan (1) Diabetic foot infection: Status: Acute (2) Cellulitis: Qualifiers: Laterality: left Site of cellulitis: extremity Site of cellulitis of extremity: lower extremity Qualified Code(s): L03.116 - Cellulitis of left lower limb Status: Acute Plan Pt is a 63-year-old male with a PMH significant for? PVD s/p right BKA 09/2023, insulin-dependent type 2 diabetes, hx of left ankle/foot osteomyelitis, TMA, AFib not on anticoagulation, HTN, hepatitis-C s/p tx in 2009, and chronically wheelchair-bound who presents to the ED with?worsening chronic left foot diabetic foot infection. Pt will be admitted to the hospital for treatment and further evaluation of worsening chronic diabetic foot infection concerning for osteomyelitis that failed outpatient therapy. Cellulitis of chronic non healing diabetic left foot ulcer Pt with increased swelling, erythema, pain, foul-smelling discharge despite completing 6-week course of daptomycin yesterday Concerning for acute osteomyelitis Elevated ESR, CRP, but CXR without radiographic evidence of osteomyelitis Will treat with doxycycline and Zosyn per Infectious Disease, started 05/02/2024 No sepsis: Leukocytosis, but no tachycardia, tachypnea, or fever Will get MRI of foot General surgery consult Analgesics for pain management Insulin-dependent type 2 diabetes Sliding-scale insulin, Lantus Paroxysmal AFib Continue diltiazem Not on anticoagulation Opioid use disorder Continue methadone Chronic normocytic anemia Stable, at baseline Full Code Attending:?Dr. Cazares DVT Prophylaxis: Pneumatic compression due to likely impending surgical procedure Pt will require a hospitalization of at least two nights for treatment of worsening chronic diabetic foot infection with cellulitis concerning for osteomyelitis that has failed outpatient therapy. Patient will need administration of IV antibiotics and surgical consultation for likely amputation. Quality Stroke Does the patient have a stroke diagnosis?: No VTE Prior VTE?: No VTE Risk Level:: Medical - moderate - high VTE Device Contraindication: N/A - Device Ordered VTE Drug Contraindication: Treatment Not Indicated
[2024-08-02] MEDS: 0.9 % Sodium Chloride 3,129.78 ML 3129.78 ML IV (13:36)
[2024-08-02] MEDS: Piperacillin Sodium/Tazobactam 3.375 GM in 0.9 % Sodium Chloride 50 ML IV ×2 (13:42→18:25)
[2024-08-02 14:42] LABS: Reflex Lactate? Lactic Acid Added
[2024-08-02 15:16] LABS: ~Lactic Acid-LAB USE ONLY 1.3 mmol/L (0.5-2.0)
[2024-08-02 15:36] VITALS: BP 134/63; PULSE 57; RESP 17; O2SAT 99
--- NOTE | 2024-08-02 15:40 | P.CONGS_ITS ---
History of Present Illness Consult details Consult date: 08/02/24 Narrative: 63-year-old male with multiple medical problems including peripheral vascular disease, diabetes, here in the hospital because of open wound on the transmetatarsal site on the left foot. He has a history of a right BKA as well. He has does not really recall how long he has had this open wound on the transmetatarsal stump on the left. He is still a very good historian. He was admitted to the hospital last June 2024 because of cellulitis of the same area as well as question of osteomyelitis. He had been on daptomycin since that time. He describes some foul smell from the wound on the left transmetatarsal stump. He says his blood sugars are well controlled. Denies any fever or chills. He is wheelchair-bound. Review of Systems 2 Constitutional: Constitutional: Denies chills Cardiovascular: Cardiovascular: Denies chest pain, Denies dyspnea and Denies dyspnea on exertion Respiratory: Respiratory: Denies cough, Denies dyspnea and Denies dyspnea on exertion Gastrointestinal: Gastrointestinal: Denies hematochezia and Denies change in bowel habits Genitourinary: Genitourinary: Denies hematuria and Denies difficulty urinating Musculoskeletal: Musculoskeletal: Denies back pain and Denies limited range of motion Neurologic: Denies focal weakness and Denies convulsions Psychiatric: Psychiatric: Denies depression and Denies mood swings PMFSH Past Medical History Medical History Hx of hepatitis Diabetic ulcer of right foot Atrial fibrillation Hypertension Diabetes Family History Family History Father History of lung cancer Mother History of diabetes mellitus Surgical History Surgical History 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 History of transmetatarsal amputation of foot (~09/2016) History of amputation of toe (~08/18/14) History of amputation of toe (~10/21/13) History of lipoma Social History Social History Household Members: Family Household Members Other:: mother Housing: Apartment Housing Other:: patient is homeless, couch surfing with friends/family Do you presently have visiting nurse or other home services: Yes ([employer]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) Alcohol intake: never Patient Tobacco Use Status: Current everyday Tobacco user Tobacco use type: Cigarette Cigarettes Per Day: 6 Years Smoked: 49 Second Hand Smoke Exposure: Yes Substance Use Type: Crack/Cocaine Advance Directives Date on File: 04/28/24 service: No Meds Allergies Allergy/AdvReac Type Severity Reaction Status Date / Time furosemide [Lasix] Allergy Intermediate Hives Verified 08/02/24 10:50 levofloxacin [Levaquin] Allergy Unknown Gastrointestinal Verified 08/02/24 10:50 Upset metronidazole [Flagyl] Allergy Unknown Unknown Verified 08/02/24 10:50 latex Allergy Rash Verified 08/02/24 10:50 contrast dye Allergy Unknown rash, hives Uncoded 10/24/23 15:09 Active Medications: Current Medications Acetaminophen (Acetaminophen 325 Mg Tablet) 650 mg PO Q6H PRN PRN Reason: Pain, Mild (Pain Scale 1-3), fever or headache Benzonatate (Benzonatate 100 Mg Capsule) 100 mg PO TID PRN PRN Reason: Cough Calcium Carbonate (Calcium Carbonate 750 Mg Tab.Chew) 750 mg PO Q4H PRN PRN Reason: Heartburn Glucose (Glucose Gel 15 Gm Gel..Gram.) 15 gm PO Q15M PRN; Protocol PRN Reason: per Hypoglycemia Standing Ord. Doxycycline Hyclate 100 mg/ (Sodium Chloride) 250 mls @ 166.67 mls/hr IV Q12H [facility] Piperacillin Sod/Tazobactam (Sod 3.375 gm/ Sodium Chloride) 50 mls @ 100 mls/hr IV Q6H [facility] Dextrose (D10) 250 mls @ 750 mls/hr IV Q15M PRN; Protocol PRN Reason: per Hypoglycemia Standing Ord. Insulin Human Lispro (Insulin Lispro 100 Unit/Ml 3 Ml Vial) 0 unit SUBCUT QIDACHS [facility]; Protocol Magnesium Hydroxide (Milk Of Magnesia 30 Ml Oral.Susp) 30 ml PO DAILY PRN PRN Reason: Constipation Melatonin (Melatonin 3 Mg Tablet) 6 mg PO BEDTIME PRN PRN Reason: Insomnia Ondansetron HCl (Ondansetron Hcl 4 Mg/2 Ml Vial) 4 mg IVPUSH Q8H PRN PRN Reason: Nausea and Vomiting Sodium Chloride (0.9 % Sodium Chloride Flush 3 Ml Syringe) 3 ml IVFLUSH QSHIFT [facility] Tramadol HCl (Tramadol Hcl 50 Mg Tablet) 50 mg PO Q4H PRN PRN Reason: Pain, Severe (Pain Scale 7-10) Home Medications ?Medication ?Instructions ?Recorded ?Confirmed ?Last Taken ?Type amitriptyline 50 mg tablet 50 mg PO BEDTIME 12/09/20 08/02/24 06/20/24 History blood sugar diagnostic (FreeStyle #10 ea 03/08/22 06/21/24 Unknown History Lite Strips) insulin syringe-needle U-100 1 mL #10 ea 03/08/22 10/28/23 Unknown History 31 gauge x 5/16 (BD Insulin Syringe Ultra-Fine) diltiazem HCl 180 mg capsule,24 180 mg PO DAILY 04/09/24 08/02/24 08/02/24 09:00 History hr,extended release methadone 10 mg/mL oral concentrate 80 mg PO DAILY 04/10/24 08/03/24 08/02/24 08:00 History insulin glargine 100 unit/mL 40 unit subcut BID 06/21/24 08/02/24 08/02/24 09:00 History subcutaneous solution (Lantus U-100 Insulin) Physical Exam 2 Vital Signs: Vital Signs: Last Vital Signs Temp 98.3 F 08/02/24 11:59 Pulse 67 08/02/24 11:59 Resp 16 08/02/24 11:59 BP 132/62 08/02/24 11:59 Pulse Ox 97 08/02/24 11:59 O2 Del Method Room Air 08/02/24 11:59 BMI result Body Mass Index 31.2 Const: Other: Looks well, not septic looking General: comfortable and no acute distress Resp: Effort & Inspection: normal respiratory effort Cardio: Rate: regular rate GI: Palpation (GI): Soft to palpation and not firm Extrem: Other: BKA stump on the right, no skin breakdown Left transmetatarsal stump with an open wound on the plantar aspect, about 7 cm x 4.3 cm, with some patchy areas of superficial eschar and fibrinous debris, no obvious exposed bone Results Labs 08/04/24 05:38 08/04/24 05:38 Labs: Abnormal lab results 08/02/24 Range/Units 12:37 WBC 13.3 H (4.8-10.8) X10*3/uL RBC 3.39 L (4.60-5.80) X10*6/uL Hgb 8.3 L (14.0-18.0) g/dl Hct 27.1 L (42.0-52.0) % MCV 79.9 L (80.0-98.0) fL MCH 24.5 L (27.0-33.0) pg MCHC 30.6 L (31.0-36.0) g/dl Plt Count 439 H (160-400) X10*3/uL MPV 9.1 L (9.4-12.4) fL Neut % (Auto) 75.9 H (45-73) % Lymph % (Auto) 15.1 L (20-40) % Abs Immat Gran (auto) 0.05 H (0.00-0.03) X10*3/uL Absolute Neuts (auto) 10.1 H (2.0-8.3) x10*3/uL ESR 115 H (0-15) MM/HR Random Glucose 179 H (60-115) mg/dL Lactic Acid 2.1 H* (0.5-2.0) mmol/L C-Reactive Protein 5.41 H (< or = 0.50) mg/dL Total Protein 8.2 H (6.5-8.0) g/dL Albumin 3.0 L (3.5-5.0) g/dL Short CBC 08/02/24 Range/Units 12:37 WBC 13.3 H (4.8-10.8) X10*3/uL Hgb 8.3 L (14.0-18.0) g/dl Hct 27.1 L (42.0-52.0) % Plt Count 439 H (160-400) X10*3/uL BMP 08/02/24 12:37 Sodium 136 Potassium 3.9 Chloride 100 Carbon Dioxide 27 BUN 15 Creatinine 1.02 Calcium 8.9 Liver Function 08/02/24 Range/Units 12:37 Total Bilirubin 0.1 (0.0-1.0) mg/dL AST 9 (5-37) U/L ALT 9 (0-40) U/L Alkaline Phosphatase 78 (39-117) U/L Albumin 3.0 L (3.5-5.0) g/dL All other labs normal. Assessment and Plan (1) Diabetic foot infection: Status: Acute He has an open wound on the left transmetatarsal amputation site as described above. There was note of some superficial eschar and fibrinous debris I had done sharp debridement of this area to remove nonviable tissue. I have applied wet-to-dry dressings and wrapped the foot with Kerlix roll I would recommend an MRI as the wound appears to not involve bone at this time on examination He needs good wound care. I will follow along while he is in the hospital. Procedures Date of Service Date of Service: 08/04/24
--- NOTE | 2024-08-02 15:40 | PHA.MEDREC ---
Pharmacy Consult ? Medication Reconciliation Pharmacy has completed the medication reconciliation.
--- NOTE | 2024-08-02 15:44 | PCN2_ITS ---
Brief Operative Note Date of procedure: 08/02/24 Pre-op diagnosis: Open wound on the transmetatarsal stump on the left, with es tyrel d Post-op diagnosis: same Procedure: I cleaned the open wound which measured about 4.3 x 7 cm. I used fine scissors to excise fibrinous debris as well as superficial eschar. This was carried down to viable looking tissue. Wet-to-dry dressings were then applied. I then wrapped the foot with Kerlix roll. He tolerated procedure well. There were no immediate complications. There was minimal blood loss Pathology: none sent
[2024-08-02] MEDS: Doxycycline Hyclate 100 MG in 0.9 % Sodium Chloride 250 ML 166.67 MG IV (16:15)
[2024-08-02 16:49] LABS: Glucose, Whole Blood 83 mg/dL (60-115)
[2024-08-02 18:02] VITALS: BP 178/70; PULSE 65; RESP 16; TEMP 36.2; O2SAT 99
[2024-08-02 18:19] VITALS: BMI 26.7
[2024-08-02 18:20] LABS: Glucose, Whole Blood 72 mg/dL (60-115)
[2024-08-02 19:10] VITALS: BP 180/78; PULSE 69; RESP 16; TEMP 36.6; O2SAT 96
[2024-08-02] MEDS: Losartan Potassium 50 MG TABLET PO (19:40)
[2024-08-02 20:44] LABS: Glucose, Whole Blood 170 mg/dL (60-115)
[2024-08-02] MEDS: Amitriptyline HCl 50 MG TABLET PO (20:58)
[2024-08-02] MEDS: Insulin Glargine,Hum.rec.anlog 100 UNIT/ML 10 ML VIAL 28 UNIT SUBCUT (20:58)
[2024-08-03] MEDS: Piperacillin Sodium/Tazobactam 3.375 GM in 0.9 % Sodium Chloride 50 ML IV ×4 (01:13→18:36)
[2024-08-03] MEDS: Doxycycline Hyclate 100 MG in 0.9 % Sodium Chloride 250 ML 166.67 MG IV ×2 (01:40→13:11)
[2024-08-03 03:12] VITALS: BP 156/72; PULSE 53; RESP 18; TEMP 36.3; O2SAT 99
[2024-08-03 06:47] VITALS: BP 160/82; PULSE 62; RESP 16; TEMP 36.6; O2SAT 100
[2024-08-03 07:02] LABS: Glucose, Whole Blood 66 mg/dL (60-115)
[2024-08-03 07:27] LABS: Glucose, Whole Blood 70 mg/dL (60-115)
[2024-08-03] MEDS: Losartan Potassium 50 MG TABLET PO (07:43)
[2024-08-03] MEDS: dilTIAZem HCL CD 180 MG CAP.ER.24H PO (07:43)
[2024-08-03] MEDS: 0.9 % Sodium Chloride Flush 3 ML SYRINGE IVFLUSH (07:45)
--- NOTE | 2024-08-03 09:35 | HO.PM.IMPN ---
Subjective Subjective Date of Service: 08/03/24 Interval History: Seen and evaluated this morning denies any pain or fever Pending MRI for foot no other overnight events Review of Systems Review of Systems: Yes all other systems are reviewed and are negative Physical Exam Vital Signs: Vital Signs: Last Vital Signs Temp 98 F 08/03/24 06:47 Pulse 62 08/03/24 06:47 Resp 16 08/03/24 06:47 BP 160/82 H 08/03/24 06:47 Pulse Ox 100 08/03/24 06:47 O2 Del Method Room Air 08/03/24 06:47 BMI result Body Mass Index 26.7 Const: Other: Constitutional : interactive, not in distress Cardiovascular : no JVP, no lower extremity edema Respiratory : bilateral chest movement, not in resp distress Gastrointestinal: soft, lax, Non tender Skin : Warm, Dry, BKA stump right with no wounds, Left transmetatarsal stump has large 7x4 plantar open wound , no obvious exposed bone, covered with dressing Neurological : Alert & oriented , No focal deficit Objective Data Active Medications Acetaminophen (Acetaminophen 325 Mg Tablet) 650 mg PO Q6H PRN PRN Reason: Pain, Mild (Pain Scale 1-3), fever or headache Amitriptyline HCl (Amitriptyline Hcl 50 Mg Tablet) 50 mg PO BEDTIME [facility] Last Admin: 08/02/24 20:58 Dose: 50 mg Documented By: ARYA Benzonatate (Benzonatate 100 Mg Capsule) 100 mg PO TID PRN PRN Reason: Cough Calcium Carbonate (Calcium Carbonate 750 Mg Tab.Chew) 750 mg PO Q4H PRN PRN Reason: Heartburn Diltiazem HCl (Diltiazem Hcl Cd 180 Mg Cap.Er.24h) 180 mg PO DAILY [facility]; Protocol Last Admin: 08/03/24 07:43 Dose: 180 mg Documented By: CURT Glucose (Glucose Gel 15 Gm Gel..Gram.) 15 gm PO Q15M PRN; Protocol PRN Reason: per Hypoglycemia Standing Ord. Doxycycline Hyclate 100 mg/ (Sodium Chloride) 250 mls @ 166.67 mls/hr IV Q12H [facility] Last Infusion: 08/03/24 03:16 Dose: Infused Documented By: ARYA Piperacillin Sod/Tazobactam (Sod 3.375 gm/ Sodium Chloride) 50 mls @ 100 mls/hr IV Q6H [facility] Last Infusion: 08/03/24 08:28 Dose: Infused Documented By: CURT Dextrose (D10) 250 mls @ 750 mls/hr IV Q15M PRN; Protocol PRN Reason: per Hypoglycemia Standing Ord. Insulin Glargine (Insulin Glargine,Hum.Rec.Anlog 100 Unit/Ml 10 Ml Vial) 28 unit SUBCUT DAILY [facility] Last Admin: 08/03/24 07:49 Dose: Not Given Documented By: CURT Non-Admin Reason: POC 65 and pt NPO Insulin Glargine (Insulin Glargine,Hum.Rec.Anlog 100 Unit/Ml 10 Ml Vial) 28 unit SUBCUT BEDTIME [facility] Last Admin: 08/02/24 20:58 Dose: 28 unit Documented By: ARYA Insulin Human Lispro (Insulin Lispro 100 Unit/Ml 3 Ml Vial) 0 unit SUBCUT QIDACHS [facility]; Protocol Last Admin: 08/03/24 07:27 Dose: Not Given Documented By: CURT Non-Admin Reason: No Insulin Coverage Losartan Potassium (Losartan Potassium 50 Mg Tablet) 50 mg PO DAILY [facility]; Protocol Last Admin: 08/03/24 07:43 Dose: 50 mg Documented By: CURT Magnesium Hydroxide (Milk Of Magnesia 30 Ml Oral.Susp) 30 ml PO DAILY PRN PRN Reason: Constipation Melatonin (Melatonin 3 Mg Tablet) 6 mg PO BEDTIME PRN PRN Reason: Insomnia Ondansetron HCl (Ondansetron Hcl 4 Mg/2 Ml Vial) 4 mg IVPUSH Q8H PRN PRN Reason: Nausea and Vomiting Sodium Chloride (0.9 % Sodium Chloride Flush 3 Ml Syringe) 3 ml IVFLUSH QSHIFT [facility] Last Admin: 08/03/24 07:45 Dose: 3 ml Documented By: CURT Tramadol HCl (Tramadol Hcl 50 Mg Tablet) 50 mg PO Q4H PRN PRN Reason: Pain, Severe (Pain Scale 7-10) Labs 08/02/24 12:37 08/02/24 12:37 Labs: Laboratory Results - last 24 hr 08/02/24 08/02/24 08/02/24 12:37 14:59 16:44 MCV 79.9 L MCH 24.5 L MCHC 30.6 L RDW 14.4 Plt Count 439 H MPV 9.1 L Immature Gran % (Auto) 0.4 Neut % (Auto) 75.9 H Lymph % (Auto) 15.1 L Morgan % (Auto) 7.0 Eos % (Auto) 1.4 Baso % (Auto) 0.2 Lymph # (Auto) 2.0 Morgan # (Auto) 0.9 Eos # (Auto) 0.2 Baso # (Auto) 0.0 Abs Immat Gran (auto) 0.05 H Absolute Neuts (auto) 10.1 H Absolute Nucleated RBC 0.000 Nucleated RBC % (auto) 0.0 ESR 115 H Anion Gap 13 Estim Creat Clear Calc 93.7 Estimated GFR > 60 POC Glucose 83 Random Glucose 179 H Lactic Acid 2.1 H* Lactic Acid F/U @ 2Hr 1.3 Calcium 8.9 Magnesium 1.9 Total Bilirubin 0.1 AST 9 ALT 9 Alkaline Phosphatase 78 C-Reactive Protein 5.41 H Total Protein 8.2 H Albumin 3.0 L 08/02/24 08/02/24 08/03/24 18:16 20:29 06:46 MCV MCH MCHC RDW Plt Count MPV Immature Gran % (Auto) Neut % (Auto) Lymph % (Auto) Morgan % (Auto) Eos % (Auto) Baso % (Auto) Lymph # (Auto) Morgan # (Auto) Eos # (Auto) Baso # (Auto) Abs Immat Gran (auto) Absolute Neuts (auto) Absolute Nucleated RBC Nucleated RBC % (auto) ESR Anion Gap Estim Creat Clear Calc Estimated GFR POC Glucose 72 170 H 66 Random Glucose Lactic Acid Lactic Acid F/U @ 2Hr Calcium Magnesium Total Bilirubin AST ALT Alkaline Phosphatase C-Reactive Protein Total Protein Albumin 08/03/24 07:23 MCV MCH MCHC RDW Plt Count MPV Immature Gran % (Auto) Neut % (Auto) Lymph % (Auto) Morgan % (Auto) Eos % (Auto) Baso % (Auto) Lymph # (Auto) Morgan # (Auto) Eos # (Auto) Baso # (Auto) Abs Immat Gran (auto) Absolute Neuts (auto) Absolute Nucleated RBC Nucleated RBC % (auto) ESR Anion Gap Estim Creat Clear Calc Estimated GFR POC Glucose 70 Random Glucose Lactic Acid Lactic Acid F/U @ 2Hr Calcium Magnesium Total Bilirubin AST ALT Alkaline Phosphatase C-Reactive Protein Total Protein Albumin Assessment and Plan (1) Diabetic foot infection: Status: Acute (2) Cellulitis: Status: Acute Plan Pt is a 63-year-old male with a PMH significant for? PVD s/p right BKA 09/2023, insulin-dependent type 2 diabetes, hx of left ankle/foot osteomyelitis, TMA, AFib not on anticoagulation, HTN, hepatitis-C s/p tx in 2009, and chronically wheelchair-bound who presents to the ED with?worsening chronic left foot diabetic foot infection. Pt will be admitted to the hospital for treatment and further evaluation of worsening chronic diabetic foot infection concerning for osteomyelitis that failed outpatient therapy. acute on chronic Diabetic left foot infection Concern for acute osteomyelitis CXR without radiographic evidence of osteomyelitis but has Elevated ESR 115 Pending MRI Doxycycline and Zosyn per ID, started 08/02/2024 General surgery following Analgesics for pain management Anemia of chronic disease check Iron profile Insulin-dependent type 2 diabetes Sliding-scale insulin, Lantus Paroxysmal AFib Continue diltiazem Not on anticoagulation Opioid use disorder Continue methadone Chronic normocytic anemia Stable, at baseline Full Code DVT Prophylaxis: Lovenox Pt will require a hospitalization of overnight for treatment of worsening chronic diabetic foot infection with cellulitis concerning for osteomyelitis that has failed outpatient therapy. Patient will need administration of IV antibiotics , MRI and surgical consult for possible amputation. Quality Stroke Does the patient have a stroke diagnosis?: No VTE Prior VTE?: No VTE Risk Level:: Medical - moderate - high VTE Device Contraindication: N/A - Device Ordered VTE Drug Contraindication: Treatment Not Indicated
--- NOTE | 2024-08-03 09:41 | MHC.CM.PN ---
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
[2024-08-03 09:52] LABS: Anion Gap 10 (12-20); Blood Urea Nitrogen 13 mg/dL (9-16); Calcium 8.9 mg/dL (8.4-10.2); Carbon Dioxide 29 mmol/L (22-29); Chloride 103 mmol/L (96-108); Estimated Glomerular Filt Rate > 60; Glucose Random 88 mg/dL (60-115); Iron 38 mcg/dL (45-160); Percent Iron Saturation 22 % (15-50); Potassium 4.1 mmol/L (3.3-5.1); Sodium 138 mmol/L (135-145); Total Iron Binding Capacity 170 mcg/dL (228-428); Unsaturated Iron Binding 132 ug/dL
[2024-08-03] MEDS: Heparin Sodium,Porcine 5,000 UNIT/ML VIAL 5000 UNIT SUBCUT ×2 (10:30→18:36)
[2024-08-03 11:28] LABS: Glucose, Whole Blood 89 mg/dL (60-115)
--- NOTE | 2024-08-03 11:48 | PC.NURSE ---
Confirmed pts methadone dose of 80mg with lithopone charger Micaela from [facility]. Per Micaela, since pt is homebound he gets methadone administered through [facility]. Spoke with RN from [facility] who also confirmed dose of 80mg and last dose was 08/02/24 at 8am
--- NOTE | 2024-08-03 12:04 | HE.PHANOTE ---
METHADONE Dose: 80mg, last dosed on 08/02/24 @0800, per Gustavo at [facility].
--- NOTE | 2024-08-03 14:00 | P.PNGS_ITS ---
Subjective Subjective Date of Service: 08/03/24 <Katelyn Comer PA-C - Last Filed: 08/03/24 15:01> 08/04/24 <Jeff Graves MD - Last Filed: 08/04/24 10:31> Interval history: No new complaints. <Katelyn Comer PA-C - Last Filed: 08/03/24 15:01> Physical Exam 2 Vital Signs: Vital Signs: Last Vital Signs Temp 98 F 08/03/24 06:47 Pulse 62 08/03/24 06:47 Resp 16 08/03/24 06:47 BP 160/82 H 08/03/24 06:47 Pulse Ox 100 08/03/24 06:47 O2 Del Method Room Air 08/03/24 06:47 BMI result Body Mass Index 26.7 <RAUL Carlos Last Filed: 08/03/24 15:01> Const: General: comfortable, no acute distress and alert <Katelyn Comer PA-C - Last Filed: 08/03/24 15:01> Orientation/consciousness: patient oriented x3 <Katelyn Comer PA-C - Last Filed: 08/03/24 15:01> Neuro: General: patient oriented x3 <RAUL Carlos Last Filed: 08/03/24 15:01> Extrem: Other: right BKA site well healed left transmetatarsal amp site with large ulceration laterally, some fibrinous exudate persists, no necrosis, no significant surrounding erythema <Katelyn Comer PA-C - Last Filed: 08/03/24 15:01> Objective Data Active Medications Acetaminophen (Acetaminophen 325 Mg Tablet) 650 mg PO Q6H PRN PRN Reason: Pain, Mild (Pain Scale 1-3), fever or headache Amitriptyline HCl (Amitriptyline Hcl 50 Mg Tablet) 50 mg PO BEDTIME [facility] Last Admin: 08/02/24 20:58 Dose: 50 mg Documented By: BLAIRRISHeike Benzonatate (Benzonatate 100 Mg Capsule) 100 mg PO TID PRN PRN Reason: Cough Calcium Carbonate (Calcium Carbonate 750 Mg Tab.Chew) 750 mg PO Q4H PRN PRN Reason: Heartburn Diltiazem HCl (Diltiazem Hcl Cd 180 Mg Cap.Er.24h) 180 mg PO DAILY [facility]; Protocol Last Admin: 08/03/24 07:43 Dose: 180 mg Documented By: CURT Glucose (Glucose Gel 15 Gm Gel..Gram.) 15 gm PO Q15M PRN; Protocol PRN Reason: per Hypoglycemia Standing Ord. Heparin Sodium (Porcine) (Heparin Sodium,Porcine 5,000 Unit/Ml Vial) 5,000 unit SUBCUT Q8H [facility] Last Admin: 08/03/24 10:30 Dose: 5,000 unit Documented By: CURT Doxycycline Hyclate 100 mg/ (Sodium Chloride) 250 mls @ 166.67 mls/hr IV Q12H [facility] Last Infusion: 08/03/24 14:45 Dose: Infused Documented By: CURT Piperacillin Sod/Tazobactam (Sod 3.375 gm/ Sodium Chloride) 50 mls @ 100 mls/hr IV Q6H [facility] Last Admin: 08/03/24 14:32 Dose: 100 mls/hr Documented By: CURT Dextrose (D10) 250 mls @ 750 mls/hr IV Q15M PRN; Protocol PRN Reason: per Hypoglycemia Standing Ord. Insulin Glargine (Insulin Glargine,Hum.Rec.Anlog 100 Unit/Ml 10 Ml Vial) 28 unit SUBCUT DAILY [facility] Last Admin: 08/03/24 07:49 Dose: Not Given Documented By: CURT Non-Admin Reason: POC 65 and pt NPO Insulin Glargine (Insulin Glargine,Hum.Rec.Anlog 100 Unit/Ml 10 Ml Vial) 28 unit SUBCUT BEDTIME [facility] Last Admin: 08/02/24 20:58 Dose: 28 unit Documented By: BLAIRRISHeike Insulin Human Lispro (Insulin Lispro 100 Unit/Ml 3 Ml Vial) 0 unit SUBCUT QIDACHS [facility]; Protocol Last Admin: 08/03/24 11:25 Dose: Not Given Documented By: CURT Non-Admin Reason: No Insulin Coverage Losartan Potassium (Losartan Potassium 50 Mg Tablet) 50 mg PO DAILY [facility]; Protocol Last Admin: 08/03/24 07:43 Dose: 50 mg Documented By: CURT Magnesium Hydroxide (Milk Of Magnesia 30 Ml Oral.Susp) 30 ml PO DAILY PRN PRN Reason: Constipation Melatonin (Melatonin 3 Mg Tablet) 6 mg PO BEDTIME PRN PRN Reason: Insomnia Methadone HCl (Methadone Hcl 20 Mg/2 Ml Oral.Conc) 80 mg PO DAILY@0800 [facility] Last Admin: 08/03/24 14:30 Dose: 80 mg Documented By: CURT Co-signed By: KEITH Ondansetron HCl (Ondansetron Hcl 4 Mg/2 Ml Vial) 4 mg IVPUSH Q8H PRN PRN Reason: Nausea and Vomiting Sodium Chloride (0.9 % Sodium Chloride Flush 3 Ml Syringe) 3 ml IVFLUSH QSHIFT [facility] Last Admin: 08/03/24 07:45 Dose: 3 ml Documented By: CURT Tramadol HCl (Tramadol Hcl 50 Mg Tablet) 50 mg PO Q4H PRN PRN Reason: Pain, Severe (Pain Scale 7-10) <Katelyn Comer PA-C - Last Filed: 08/03/24 15:01> Labs CBC & Chem 7: 08/04/24 05:38 08/04/24 05:38 <Katelyn Comer PA-C - Last Filed: 08/03/24 15:01> Labs: Laboratory Results - last 24 hr 08/02/24 08/02/24 08/02/24 14:59 16:44 18:16 Anion Gap Estim Creat Clear Calc Estimated GFR POC Glucose 83 72 Random Glucose Lactic Acid F/U @ 2Hr 1.3 Calcium Iron TIBC % Saturation Unsat Iron Binding 08/02/24 08/03/24 08/03/24 20:29 06:46 07:23 Anion Gap Estim Creat Clear Calc Estimated GFR POC Glucose 170 H 66 70 Random Glucose Lactic Acid F/U @ 2Hr Calcium Iron TIBC % Saturation Unsat Iron Binding 08/03/24 08/03/24 09:07 11:24 Anion Gap 10 L Estim Creat Clear Calc 100.0 Estimated GFR > 60 POC Glucose 89 Random Glucose 88 Lactic Acid F/U @ 2Hr Calcium 8.9 Iron 38 L TIBC 170 L % Saturation 22 Unsat Iron Binding 132 <Katelyn Comer PA-C - Last Filed: 08/03/24 15:01> Microbiology Microbiology Results: Microbiology 08/02/24 12:37 Blood Culture - Preliminary Blood - Venous No growth after 24 hours. <Katelyn Comer PA-C - Last Filed: 08/03/24 15:01> Procedures Date of Service Date of Service: 08/03/24 <Katelyn Comer PA-C - Last Filed: 08/03/24 15:01> 08/04/24 <Jeff Graves MD - Last Filed: 08/04/24 10:31> Progress Note: A&P Assessment and plan (1) Acute osteomyelitis: Status: Acute <Katelyn Comer PA-C - Last Filed: 08/03/24 15:01> (2) Diabetic foot infection: Status: Acute <Katelyn Comer PA-C - Last Filed: 08/03/24 15:01> Assessment and Plan: Large lateral ulceration of left TMA site s/p debridement of subq tissue and eschar at bedside yesterday. Wound improved today. MRI shows persistent/worsening osteomyelitis of left 5th metatarsal after completing 6 weeks of IV daptomycin. May require revision of the left transmetarsal amp vs left BKA. Can continue daily local wound care for now, IV abx. <Katelyn Comer PA-C - Last Filed: 08/03/24 15:01> Time Spent With Patient Time: Total time managing care of this patient today ____ minutes. <Katelyn Comer PA-C - Last Filed: 08/03/24 15:01> Quality Stroke Does the patient have a stroke diagnosis?: No <Katelyn Comer PA-C - Last Filed: 08/03/24 15:01> VTE Prior VTE?: No <Katelyn Comer PA-C - Last Filed: 08/03/24 15:01> VTE Risk Level:: Medical - moderate - high <Katelyn Comer PA-C - Last Filed: 08/03/24 15:01> VTE Device Contraindication: N/A - Device Ordered <Katelyn Comer PA-C - Last Filed: 08/03/24 15:01> VTE Drug Contraindication: Treatment Not Indicated <Katelyn Comer PA-C - Last Filed: 08/03/24 15:01>
[2024-08-03] MEDS: methADONE HCl 20 MG/2 ML ORAL.CONC 80 MG PO (14:30)
[2024-08-03 15:18] VITALS: BP 146/69; PULSE 63; RESP 20; TEMP 36.1; O2SAT 99
[2024-08-03 16:28] LABS: Glucose, Whole Blood 130 mg/dL (60-115)
[2024-08-03 19:17] VITALS: BP 145/69; PULSE 55; RESP 20; TEMP 36.1; O2SAT 98
[2024-08-03] MEDS: traMADoL HCL 50 MG TABLET PO (19:17)
[2024-08-03 20:16] LABS: Glucose, Whole Blood 109 mg/dL (60-115)
[2024-08-03] MEDS: Amitriptyline HCl 50 MG TABLET PO (20:40)
[2024-08-04] MEDS: Piperacillin Sodium/Tazobactam 3.375 GM in 0.9 % Sodium Chloride 50 ML IV ×4 (01:25→18:05)
[2024-08-04] MEDS: Heparin Sodium,Porcine 5,000 UNIT/ML VIAL 5000 UNIT SUBCUT ×3 (01:48→16:58)
[2024-08-04] MEDS: Doxycycline Hyclate 100 MG in 0.9 % Sodium Chloride 250 ML 166.67 MG IV ×2 (01:48→14:10)
[2024-08-04 02:50] VITALS: BP 156/77; PULSE 50; RESP 18; TEMP 36.1; O2SAT 100
[2024-08-04 06:47] VITALS: BP 160/72; PULSE 68; RESP 16; TEMP 36.4; O2SAT 99
[2024-08-04 07:00] LABS: Hematocrit 27.8 % (42.0-52.0); Hemoglobin 8.3 g/dl (14.0-18.0); Mean Corpuscular HGB Conc 29.9 g/dl (31.0-36.0); Mean Corpuscular Hemoglobin 23.7 pg (27.0-33.0); Mean Corpuscular Volume 79.4 fL (80.0-98.0); Mean Platelet Volume 9.4 fL (9.4-12.4); Platelet Count 455 X10*3/uL (160-400); Red Cell Distribution Width 14.6 % (11.0-16.0); White Blood Count 8.8 X10*3/uL (4.8-10.8)
[2024-08-04 07:03] LABS: Glucose, Whole Blood 64 mg/dL (60-115)
[2024-08-04 07:07] LABS: Anion Gap 13 (12-20); Blood Urea Nitrogen 16 mg/dL (9-16); Calcium 9.3 mg/dL (8.4-10.2); Carbon Dioxide 29 mmol/L (22-29); Chloride 102 mmol/L (96-108); Creatinine Clr Calc Pharmacy 87.5; Estimated Glomerular Filt Rate > 60; Glucose Random 79 mg/dL (60-115); Potassium 4.3 mmol/L (3.3-5.1); Sodium 140 mmol/L (135-145)
[2024-08-04 07:21] LABS: Glucose, Whole Blood 88 mg/dL (60-115)
[2024-08-04] MEDS: Losartan Potassium 50 MG TABLET PO (08:30)
[2024-08-04] MEDS: dilTIAZem HCL CD 180 MG CAP.ER.24H PO (08:30)
[2024-08-04] MEDS: methADONE HCl 20 MG/2 ML ORAL.CONC 80 MG PO (08:31)
[2024-08-04] MEDS: 0.9 % Sodium Chloride Flush 3 ML SYRINGE IVFLUSH ×3 (08:34→21:12)
[2024-08-04] MEDS: traMADoL HCL 50 MG TABLET PO ×3 (08:42→20:28)
--- NOTE | 2024-08-04 10:57 | P.PNGS_ITS ---
Subjective Subjective Date of Service: 08/07/24 Interval history: Denies any new complaints Does state that he has pain on the left foot His MRI shows osteomyelitis of the remaining 5th metatarsal Physical Exam 2 Vital Signs: Vital Signs: Last Vital Signs Temp 97.5 F 08/04/24 06:47 Pulse 68 08/04/24 06:47 Resp 16 08/04/24 06:47 BP 160/72 H 08/04/24 06:47 Pulse Ox 99 08/04/24 06:47 O2 Del Method Room Air 08/04/24 06:47 BMI result Body Mass Index 26.7 Const: General: comfortable and no acute distress Resp: Effort & Inspection: normal respiratory effort Cardio: Rate: regular rate Extrem: Other: Large open wound, left foot on the plantar and lateral aspect; on deeper palpation, there seems to be exposed, palpable bone of the 5th metatarsal Objective Data Active Medications Acetaminophen (Acetaminophen 325 Mg Tablet) 650 mg PO Q6H PRN PRN Reason: Pain, Mild (Pain Scale 1-3), fever or headache Amitriptyline HCl (Amitriptyline Hcl 50 Mg Tablet) 50 mg PO BEDTIME [facility] Last Admin: 08/03/24 20:40 Dose: 50 mg Documented By: ARYA Benzonatate (Benzonatate 100 Mg Capsule) 100 mg PO TID PRN PRN Reason: Cough Calcium Carbonate (Calcium Carbonate 750 Mg Tab.Chew) 750 mg PO Q4H PRN PRN Reason: Heartburn Diltiazem HCl (Diltiazem Hcl Cd 180 Mg Cap.Er.24h) 180 mg PO DAILY [facility]; Protocol Last Admin: 08/04/24 08:30 Dose: 180 mg Documented By: LEON Glucose (Glucose Gel 15 Gm Gel..Gram.) 15 gm PO Q15M PRN; Protocol PRN Reason: per Hypoglycemia Standing Ord. Heparin Sodium (Porcine) (Heparin Sodium,Porcine 5,000 Unit/Ml Vial) 5,000 unit SUBCUT Q8H [facility] Last Admin: 08/04/24 01:48 Dose: 5,000 unit Documented By: ARYA Doxycycline Hyclate 100 mg/ (Sodium Chloride) 250 mls @ 166.67 mls/hr IV Q12H [facility] Last Infusion: 08/04/24 03:25 Dose: Infused Documented By: ARYA Piperacillin Sod/Tazobactam (Sod 3.375 gm/ Sodium Chloride) 50 mls @ 100 mls/hr IV Q6H [facility] Last Infusion: 08/04/24 08:42 Dose: Infused Documented By: LEON Dextrose (D10) 250 mls @ 750 mls/hr IV Q15M PRN; Protocol PRN Reason: per Hypoglycemia Standing Ord. Insulin Glargine (Insulin Glargine,Hum.Rec.Anlog 100 Unit/Ml 10 Ml Vial) 28 unit SUBCUT DAILY [facility] Last Admin: 08/04/24 07:27 Dose: Not Given Documented By: LEON Non-Admin Reason: blood sugar 64 Insulin Glargine (Insulin Glargine,Hum.Rec.Anlog 100 Unit/Ml 10 Ml Vial) 28 unit SUBCUT BEDTIME [facility] Last Admin: 08/03/24 20:56 Dose: Not Given Documented By: ARYA Non-Admin Reason: low blood sugar Insulin Human Lispro (Insulin Lispro 100 Unit/Ml 3 Ml Vial) 0 unit SUBCUT QIDACHS [facility]; Protocol Last Admin: 08/04/24 07:26 Dose: Not Given Documented By: LEON Non-Admin Reason: No Insulin Coverage Losartan Potassium (Losartan Potassium 50 Mg Tablet) 50 mg PO DAILY [facility]; Protocol Last Admin: 08/04/24 08:30 Dose: 50 mg Documented By: LEON Magnesium Hydroxide (Milk Of Magnesia 30 Ml Oral.Susp) 30 ml PO DAILY PRN PRN Reason: Constipation Melatonin (Melatonin 3 Mg Tablet) 6 mg PO BEDTIME PRN PRN Reason: Insomnia Methadone HCl (Methadone Hcl 20 Mg/2 Ml Oral.Conc) 80 mg PO DAILY@0800 [facility] Last Admin: 08/04/24 08:31 Dose: 80 mg Documented By: LEON Co-signed By: SHELLI Ondansetron HCl (Ondansetron Hcl 4 Mg/2 Ml Vial) 4 mg IVPUSH Q8H PRN PRN Reason: Nausea and Vomiting Sodium Chloride (0.9 % Sodium Chloride Flush 3 Ml Syringe) 3 ml IVFLUSH QSHIFT [facility] Last Admin: 08/04/24 08:34 Dose: 3 ml Documented By: LEON Tramadol HCl (Tramadol Hcl 50 Mg Tablet) 50 mg PO Q4H PRN PRN Reason: Pain, Severe (Pain Scale 7-10) Last Admin: 08/04/24 08:42 Dose: 50 mg Documented By: LEON Labs 08/07/24 07:28 08/07/24 07:28 Labs: Laboratory Results - last 24 hr 08/03/24 08/03/24 08/03/24 11:24 16:22 20:09 MCV MCH MCHC RDW Plt Count MPV Absolute Nucleated RBC Nucleated RBC % (auto) Anion Gap Estim Creat Clear Calc Estimated GFR POC Glucose 89 130 H 109 Random Glucose Calcium 08/04/24 08/04/24 08/04/24 05:38 06:47 07:18 MCV 79.4 L MCH 23.7 L MCHC 29.9 L RDW 14.6 Plt Count 455 H MPV 9.4 Absolute Nucleated RBC 0.000 Nucleated RBC % (auto) 0.0 Anion Gap 13 Estim Creat Clear Calc 87.5 Estimated GFR > 60 POC Glucose 64 88 Random Glucose 79 Calcium 9.3 Microbiology Microbiology Results: Microbiology 08/02/24 12:54 Blood Culture - Preliminary Blood - Venous No growth after 24 hours. 08/02/24 12:37 Blood Culture - Preliminary Blood - Venous No growth after 24 hours. Procedures Date of Service Date of Service: 08/07/24 Progress Note: A&P Assessment and plan (1) Acute osteomyelitis: Status: Acute Assessment and Plan: His MRI does show that there is osteomyelitis of the remaining metatarsal of the 5th toe He has a large open wound on the area Careful palpation and visualization does show that the bone may be exposed on the distal aspect of the metatarsal I explained to him that we will have to proceed with resection of this 5th metatarsal because of osteomyelitis open wound I reviewed with him the technique of this procedure I explained the risks including but not limited to bleeding, infections, poor healing, need for additional more proximal amputations I explained the option of a BKA instead because of the resulting open wound due to the lack of soft tissue coverage He says that he wants to see if the foot for now and wants to proceed with resection of the 5th metatarsal We will try to do the surgery tomorrow in the OR under anesthesia Time Spent With Patient Time: Total time managing care of this patient today ____ minutes. Quality Stroke Does the patient have a stroke diagnosis?: No VTE Prior VTE?: No VTE Risk Level:: Medical - moderate - high VTE Device Contraindication: N/A - Device Ordered VTE Drug Contraindication: Treatment Not Indicated
--- NOTE | 2024-08-04 10:57 | HO.PM.IMPN ---
Subjective Subjective Date of Service: 08/04/24 Interval History: no complaints Physical Exam Vital Signs: Vital Signs: Last Vital Signs Temp 97.5 F 08/04/24 06:47 Pulse 68 08/04/24 06:47 Resp 16 08/04/24 06:47 BP 160/72 H 08/04/24 06:47 Pulse Ox 99 08/04/24 06:47 O2 Del Method Room Air 08/04/24 06:47 BMI result Body Mass Index 26.7 Const: General: comfortable, no acute distress and alert Orientation/consciousness: patient oriented x3 Neuro: General: patient oriented x3 Extrem: Other: right BKA site well healed left transmetatarsal amp site with large ulceration laterally, some fibrinous exudate persists, no necrosis, no significant surrounding erythema Objective Data Active Medications Acetaminophen (Acetaminophen 325 Mg Tablet) 650 mg PO Q6H PRN PRN Reason: Pain, Mild (Pain Scale 1-3), fever or headache Amitriptyline HCl (Amitriptyline Hcl 50 Mg Tablet) 50 mg PO BEDTIME [facility] Last Admin: 08/03/24 20:40 Dose: 50 mg Documented By: ARYA Benzonatate (Benzonatate 100 Mg Capsule) 100 mg PO TID PRN PRN Reason: Cough Calcium Carbonate (Calcium Carbonate 750 Mg Tab.Chew) 750 mg PO Q4H PRN PRN Reason: Heartburn Diltiazem HCl (Diltiazem Hcl Cd 180 Mg Cap.Er.24h) 180 mg PO DAILY [facility]; Protocol Last Admin: 08/04/24 08:30 Dose: 180 mg Documented By: LEON Glucose (Glucose Gel 15 Gm Gel..Gram.) 15 gm PO Q15M PRN; Protocol PRN Reason: per Hypoglycemia Standing Ord. Heparin Sodium (Porcine) (Heparin Sodium,Porcine 5,000 Unit/Ml Vial) 5,000 unit SUBCUT Q8H [facility] Last Admin: 08/04/24 01:48 Dose: 5,000 unit Documented By: ARYA Doxycycline Hyclate 100 mg/ (Sodium Chloride) 250 mls @ 166.67 mls/hr IV Q12H [facility] Last Infusion: 08/04/24 03:25 Dose: Infused Documented By: ARYA Piperacillin Sod/Tazobactam (Sod 3.375 gm/ Sodium Chloride) 50 mls @ 100 mls/hr IV Q6H [facility] Last Infusion: 08/04/24 08:42 Dose: Infused Documented By: LEON Dextrose (D10) 250 mls @ 750 mls/hr IV Q15M PRN; Protocol PRN Reason: per Hypoglycemia Standing Ord. Insulin Glargine (Insulin Glargine,Hum.Rec.Anlog 100 Unit/Ml 10 Ml Vial) 28 unit SUBCUT DAILY [facility] Last Admin: 08/04/24 07:27 Dose: Not Given Documented By: LEON Non-Admin Reason: blood sugar 64 Insulin Glargine (Insulin Glargine,Hum.Rec.Anlog 100 Unit/Ml 10 Ml Vial) 28 unit SUBCUT BEDTIME [facility] Last Admin: 08/03/24 20:56 Dose: Not Given Documented By: ARYA Non-Admin Reason: low blood sugar Insulin Human Lispro (Insulin Lispro 100 Unit/Ml 3 Ml Vial) 0 unit SUBCUT QIDACHS [facility]; Protocol Last Admin: 08/04/24 07:26 Dose: Not Given Documented By: LEON Non-Admin Reason: No Insulin Coverage Losartan Potassium (Losartan Potassium 50 Mg Tablet) 50 mg PO DAILY [facility]; Protocol Last Admin: 08/04/24 08:30 Dose: 50 mg Documented By: LEON Magnesium Hydroxide (Milk Of Magnesia 30 Ml Oral.Susp) 30 ml PO DAILY PRN PRN Reason: Constipation Melatonin (Melatonin 3 Mg Tablet) 6 mg PO BEDTIME PRN PRN Reason: Insomnia Methadone HCl (Methadone Hcl 20 Mg/2 Ml Oral.Conc) 80 mg PO DAILY@0800 [facility] Last Admin: 08/04/24 08:31 Dose: 80 mg Documented By: LEON Co-signed By: SHELLI Ondansetron HCl (Ondansetron Hcl 4 Mg/2 Ml Vial) 4 mg IVPUSH Q8H PRN PRN Reason: Nausea and Vomiting Sodium Chloride (0.9 % Sodium Chloride Flush 3 Ml Syringe) 3 ml IVFLUSH QSHIFT [facility] Last Admin: 08/04/24 08:34 Dose: 3 ml Documented By: LEON Tramadol HCl (Tramadol Hcl 50 Mg Tablet) 50 mg PO Q4H PRN PRN Reason: Pain, Severe (Pain Scale 7-10) Last Admin: 08/04/24 08:42 Dose: 50 mg Documented By: LEON Labs 08/04/24 05:38 08/04/24 05:38 Labs: Laboratory Results - last 24 hr 08/03/24 08/03/24 08/03/24 11:24 16:22 20:09 MCV MCH MCHC RDW Plt Count MPV Absolute Nucleated RBC Nucleated RBC % (auto) Anion Gap Estim Creat Clear Calc Estimated GFR POC Glucose 89 130 H 109 Random Glucose Calcium 08/04/24 08/04/24 08/04/24 05:38 06:47 07:18 MCV 79.4 L MCH 23.7 L MCHC 29.9 L RDW 14.6 Plt Count 455 H MPV 9.4 Absolute Nucleated RBC 0.000 Nucleated RBC % (auto) 0.0 Anion Gap 13 Estim Creat Clear Calc 87.5 Estimated GFR > 60 POC Glucose 64 88 Random Glucose 79 Calcium 9.3 Microbiology Microbiology Results: Microbiology 08/02/24 12:54 Blood Culture - Preliminary Blood - Venous No growth after 24 hours. 08/02/24 12:37 Blood Culture - Preliminary Blood - Venous No growth after 24 hours. Assessment and Plan (1) Diabetic foot infection: Status: Acute (2) Cellulitis: Status: Acute Plan 63M PMH PVD s/p right BKA 09/2023, insulin-dependent type 2 diabetes, hx of left ankle/foot osteomyelitis, TMA, pAFib not on anticoagulation, HTN, hepatitis-C s/p tx in 2009, and chronically wheelchair-bound who presented to the ED with?worsening chronic left foot diabetic foot infection. acute on chronic Diabetic left foot infection with acute osteomyelitis Doxycycline and Zosyn per ID, started 08/02/2024 plan for OR 08/05/24 Anemia of chronic disease stable Insulin-dependent type 2 diabetes Sliding-scale insulin, Lantus Paroxysmal AFib Continue diltiazem Not on anticoagulation Opioid use disorder Continue methadone Full Code DVT Prophylaxis: hep sq reason for continued hospitalization:OR tomorrow Quality Stroke Does the patient have a stroke diagnosis?: No VTE Prior VTE?: No VTE Risk Level:: Medical - moderate - high VTE Device Contraindication: N/A - Device Ordered VTE Drug Contraindication: Treatment Not Indicated
[2024-08-04 11:09] LABS: Glucose, Whole Blood 169 mg/dL (60-115)
[2024-08-04] MEDS: Insulin Lispro 100 UNIT/ML 3 ML VIAL SUBCUT ×3 (11:35→21:03)
[2024-08-04] MEDS: Acetaminophen 325 MG TABLET 650 MG PO ×2 (14:11→20:29)
[2024-08-04 15:04] VITALS: BP 127/69; PULSE 62; RESP 16; TEMP 36.2; O2SAT 99
[2024-08-04 16:07] LABS: Glucose, Whole Blood 217 mg/dL (60-115)
[2024-08-04 19:29] VITALS: BP 159/72; PULSE 63; RESP 16; TEMP 36.1; O2SAT 99
[2024-08-04] MEDS: Amitriptyline HCl 50 MG TABLET PO (20:26)
[2024-08-04 20:49] LABS: Glucose, Whole Blood 184 mg/dL (60-115)
[2024-08-04] MEDS: Insulin Glargine,Hum.rec.anlog 100 UNIT/ML 10 ML VIAL 28 UNIT SUBCUT (21:11)
[2024-08-05] MEDS: Piperacillin Sodium/Tazobactam 3.375 GM in 0.9 % Sodium Chloride 50 ML IV ×5 (00:05→23:59)
[2024-08-05] MEDS: Doxycycline Hyclate 100 MG in 0.9 % Sodium Chloride 250 ML 166.67 MG IV ×2 (00:36→13:53)
[2024-08-05 03:15] VITALS: BP 152/71; PULSE 54; RESP 14; TEMP 36.1; O2SAT 100
[2024-08-05 05:33] LABS: Hematocrit 28.5 % (42.0-52.0); Hemoglobin 8.5 g/dl (14.0-18.0); Mean Corpuscular HGB Conc 29.8 g/dl (31.0-36.0); Mean Corpuscular Hemoglobin 23.9 pg (27.0-33.0); Mean Corpuscular Volume 80.3 fL (80.0-98.0); Mean Platelet Volume 9.5 fL (9.4-12.4); Platelet Count 470 X10*3/uL (160-400); Red Blood Count 3.55 X10*6/uL (4.60-5.80); Red Cell Distribution Width 14.5 % (11.0-16.0); White Blood Count 7.7 X10*3/uL (4.8-10.8)
[2024-08-05 05:47] LABS: Anion Gap 15 (12-20); Blood Urea Nitrogen 22 mg/dL (9-16); Calcium 9.4 mg/dL (8.4-10.2); Carbon Dioxide 28 mmol/L (22-29); Chloride 102 mmol/L (96-108); Creatinine Clr Calc Pharmacy 66.1; Estimated Glomerular Filt Rate 57; Glucose Fasting 133 mg/dL (60-99); Potassium 5.6 mmol/L (3.3-5.1); Sodium 139 mmol/L (135-145)
[2024-08-05 07:22] VITALS: BP 178/81; PULSE 56; RESP 16; TEMP 36; O2SAT 100
[2024-08-05 07:31] LABS: Glucose, Whole Blood 97 mg/dL (60-115)
[2024-08-05] MEDS: methADONE HCl 20 MG/2 ML ORAL.CONC 80 MG PO (08:04)
[2024-08-05] MEDS: dilTIAZem HCL CD 180 MG CAP.ER.24H PO (08:04)
[2024-08-05] MEDS: Losartan Potassium 50 MG TABLET PO (08:04)
[2024-08-05] MEDS: 0.9 % Sodium Chloride Flush 3 ML SYRINGE IVFLUSH ×3 (08:07→19:32)
--- NOTE | 2024-08-05 09:14 | P.PNIM_ITS ---
Subjective Subjective Date of Service: 08/05/24 Interval History: No new complaints Physical Exam 2 Vital Signs: Vital Signs: Last Vital Signs Temp 96.8 F 08/05/24 07:22 Pulse 56 08/05/24 07:22 Resp 16 08/05/24 07:22 BP 178/81 H 08/05/24 07:22 Pulse Ox 100 08/05/24 07:22 O2 Del Method Room Air 08/05/24 07:22 BMI result Body Mass Index 26.7 Const: General: comfortable, no acute distress and alert O rientation/consciousness: patient oriented x3 Neuro: General: patient oriented x3 Extrem: Other: right BKA site well healed left transmetatarsal amp site with large ulceration laterally, some fibrinous exudate persists, no necrosis, no significant surrounding erythema Objective Data Active Medications Acetaminophen (Acetaminophen 325 Mg Tablet) 650 mg PO Q6H PRN PRN Reason: Pain, Mild (Pain Scale 1-3), fever or headache Last Admin: 08/04/24 20:29 Dose: 650 mg Documented By: TEJAS Amitriptyline HCl (Amitriptyline Hcl 50 Mg Tablet) 50 mg PO BEDTIME [facility] Last Admin: 08/04/24 20:26 Dose: 50 mg Documented By: TEJAS Benzonatate (Benzonatate 100 Mg Capsule) 100 mg PO TID PRN PRN Reason: Cough Calcium Carbonate (Calcium Carbonate 750 Mg Tab.Chew) 750 mg PO Q4H PRN PRN Reason: Heartburn Diltiazem HCl (Diltiazem Hcl Cd 180 Mg Cap.Er.24h) 180 mg PO DAILY [facility]; Protocol Last Admin: 08/05/24 08:04 Dose: 180 mg Documented By: LEON Glucose (Glucose Gel 15 Gm Gel..Gram.) 15 gm PO Q15M PRN; Protocol PRN Reason: per Hypoglycemia Standing Ord. Heparin Sodium (Porcine) (Heparin Sodium,Porcine 5,000 Unit/Ml Vial) 5,000 unit SUBCUT Q8H [facility] Last Admin: 08/05/24 08:27 Dose: Not Given Documented By: AMELIA Non-Admin Reason: sched surgery Doxycycline Hyclate 100 mg/ (Sodium Chloride) 250 mls @ 166.67 mls/hr IV Q12H [facility] Last Infusion: 08/05/24 02:10 Dose: Infused Documented By: TEJAS Piperacillin Sod/Tazobactam (Sod 3.375 gm/ Sodium Chloride) 50 mls @ 100 mls/hr IV Q6H [facility] Last Infusion: 08/05/24 06:38 Dose: Infused Documented By: TEJAS Dextrose (D10) 250 mls @ 750 mls/hr IV Q15M PRN; Protocol PRN Reason: per Hypoglycemia Standing Ord. Insulin Glargine (Insulin Glargine,Hum.Rec.Anlog 100 Unit/Ml 10 Ml Vial) 28 unit SUBCUT DAILY [facility] Last Admin: 08/05/24 08:02 Dose: Not Given Documented By: LEON Non-Admin Reason: NPO Insulin Glargine (Insulin Glargine,Hum.Rec.Anlog 100 Unit/Ml 10 Ml Vial) 28 unit SUBCUT BEDTIME [facility] Last Admin: 08/04/24 21:11 Dose: 28 unit Documented By: TEJAS Insulin Human Lispro (Insulin Lispro 100 Unit/Ml 3 Ml Vial) 0 unit SUBCUT QIDACHS [facility]; Protocol Last Admin: 08/05/24 08:02 Dose: Not Given Documented By: LEON Non-Admin Reason: No Insulin Coverage Losartan Potassium (Losartan Potassium 50 Mg Tablet) 50 mg PO DAILY [facility]; Protocol Last Admin: 08/05/24 08:04 Dose: 50 mg Documented By: LEON Magnesium Hydroxide (Milk Of Magnesia 30 Ml Oral.Susp) 30 ml PO DAILY PRN PRN Reason: Constipation Melatonin (Melatonin 3 Mg Tablet) 6 mg PO BEDTIME PRN PRN Reason: Insomnia Methadone HCl (Methadone Hcl 20 Mg/2 Ml Oral.Conc) 80 mg PO DAILY@0800 [facility] Last Admin: 08/05/24 08:04 Dose: 80 mg Documented By: LEON Co-signed By: AMELIA Ondansetron HCl (Ondansetron Hcl 4 Mg/2 Ml Vial) 4 mg IVPUSH Q8H PRN PRN Reason: Nausea and Vomiting Sodium Chloride (0.9 % Sodium Chloride Flush 3 Ml Syringe) 3 ml IVFLUSH QSHIFT [facility] Last Admin: 08/05/24 08:07 Dose: 3 ml Documented By: LEON Tramadol HCl (Tramadol Hcl 50 Mg Tablet) 50 mg PO Q4H PRN PRN Reason: Pain, Severe (Pain Scale 7-10) Last Admin: 08/04/24 20:28 Dose: 50 mg Documented By: TEJAS Labs 08/05/24 05:02 08/05/24 05:02 Labs: Laboratory Results - last 24 hr 08/04/24 08/04/24 08/04/24 11:02 15:52 20:40 MCV MCH MCHC RDW Plt Count MPV Absolute Nucleated RBC Nucleated RBC % (auto) Anion Gap Estim Creat Clear Calc Estimated GFR POC Glucose 169 H 217 H 184 H Fasting Glucose Calcium Magnesium 08/05/24 08/05/24 05:02 07:25 MCV 80.3 MCH 23.9 L MCHC 29.8 L RDW 14.5 Plt Count 470 H MPV 9.5 Absolute Nucleated RBC 0.000 Nucleated RBC % (auto) 0.0 Anion Gap 15 Estim Creat Clear Calc 66.1 Estimated GFR 57 POC Glucose 97 Fasting Glucose 133 H Calcium 9.4 Magnesium 2.0 Microbiology Microbiology Results: Microbiology 08/02/24 12:54 Blood Culture - Preliminary Blood - Venous No growth after 48 hours. 08/02/24 12:37 Blood Culture - Preliminary Blood - Venous No growth after 48 hours. Assessment and Plan (1) Diabetic foot infection: Status: Acute (2) Cellulitis: Status: Acute Plan 63M PMH PVD s/p right BKA 09/2023, insulin-dependent type 2 diabetes, hx of left ankle/foot osteomyelitis, TMA, pAFib not on anticoagulation, HTN, hepatitis-C s/p tx in 2009, and chronically wheelchair-bound who presented to the ED with?worsening chronic left foot diabetic foot infection. acute on chronic Diabetic left foot infection with acute osteomyelitis Doxycycline and Zosyn per ID, started 08/02/2024 plan for OR today 08/05/24 Anemia of chronic disease stable Insulin-dependent type 2 diabetes Sliding-scale insulin, Lantus Paroxysmal AFib Continue diltiazem Not on anticoagulation Opioid use disorder Continue methadone Full Code DVT Prophylaxis: hep sq reason for continued hospitalization:OR today Quality Stroke Does the patient have a stroke diagnosis?: No VTE Prior VTE?: No VTE Risk Level:: Medical - moderate - high VTE Device Contraindication: N/A - Device Ordered VTE Drug Contraindication: Treatment Not Indicated
[2024-08-05 10:34] VITALS: BP 152/72
[2024-08-05 11:26] LABS: Glucose, Whole Blood 94 mg/dL (60-115)
--- NOTE | 2024-08-05 13:26 | MHC.CM.PN ---
PER ROUNDS PT GOING TO OR TODAY DC PLANS REMAIN TBD
--- NOTE | 2024-08-05 13:26 | PM.EVENT ---
Event Note Date of Service: 08/05/24 Event Note: Patient seen while waiting for the procedure He had lunch - he was brought food by family from outside He says he could no longer wait and was hungry and he was concerned because he is a diabetic We will have to postpone the surgery We will put him back on the schedule for tomorrow NPO post midnight again Time Spent With Patient Time: Total time managing care of this patient today ____ minutes.
[2024-08-05 15:24] VITALS: BP 143/84; PULSE 58; RESP 20; TEMP 36.5; O2SAT 99
[2024-08-05 16:08] LABS: Glucose, Whole Blood 179 mg/dL (60-115)
[2024-08-05] MEDS: Insulin Lispro 100 UNIT/ML 3 ML VIAL SUBCUT ×2 (16:35→20:08)
[2024-08-05] MEDS: Heparin Sodium,Porcine 5,000 UNIT/ML VIAL 5000 UNIT SUBCUT (18:03)
[2024-08-05 19:05] VITALS: BP 148/77; PULSE 62; RESP 20; TEMP 36.5; O2SAT 99
[2024-08-05] MEDS: Amitriptyline HCl 50 MG TABLET PO (19:30)
[2024-08-05] MEDS: traMADoL HCL 50 MG TABLET PO (19:30)
[2024-08-05] MEDS: Acetaminophen 325 MG TABLET 650 MG PO (19:30)
[2024-08-05 19:42] LABS: Glucose, Whole Blood 169 mg/dL (60-115)
[2024-08-05] MEDS: Insulin Glargine,Hum.rec.anlog 100 UNIT/ML 10 ML VIAL 28 UNIT SUBCUT (20:10)
[2024-08-06] VITALS (12 sets, daily range): BP systolic 140–179; BP diastolic 68–93; PULSE 57–74; RESP 12–18; TEMP 36–36.7; O2SAT 96–100
[2024-08-06] MEDS: Doxycycline Hyclate 100 MG in 0.9 % Sodium Chloride 250 ML 166.67 MG IV ×2 (00:30→13:16)
[2024-08-06 06:43] LABS: Anion Gap 10 (12-20); Blood Urea Nitrogen 25 mg/dL (9-16); Calcium 9.4 mg/dL (8.4-10.2); Carbon Dioxide 29 mmol/L (22-29); Chloride 103 mmol/L (96-108); Creatinine Clr Calc Pharmacy 70.6; Estimated Glomerular Filt Rate > 60; Glucose Fasting 115 mg/dL (60-99); Potassium 5.4 mmol/L (3.3-5.1); Sodium 137 mmol/L (135-145)
[2024-08-06 07:04] LABS: Hematocrit 28.4 % (42.0-52.0); Hemoglobin 8.7 g/dl (14.0-18.0); Mean Corpuscular HGB Conc 30.6 g/dl (31.0-36.0); Mean Corpuscular Hemoglobin 24.5 pg (27.0-33.0); Mean Platelet Volume 9.3 fL (9.4-12.4); Platelet Count 468 X10*3/uL (160-400); Red Blood Count 3.55 X10*6/uL (4.60-5.80); Red Cell Distribution Width 14.6 % (11.0-16.0)
[2024-08-06 07:28] LABS: Glucose, Whole Blood 105 mg/dL (60-115)
[2024-08-06] MEDS: Losartan Potassium 50 MG TABLET PO (07:33)
[2024-08-06] MEDS: Piperacillin Sodium/Tazobactam 3.375 GM in 0.9 % Sodium Chloride 50 ML IV ×4 (07:33→23:26)
[2024-08-06] MEDS: methADONE HCl 20 MG/2 ML ORAL.CONC 80 MG PO (07:33)
[2024-08-06] MEDS: dilTIAZem HCL CD 180 MG CAP.ER.24H PO (07:33)
--- NOTE | 2024-08-06 09:20 | HO.PM.IMPN ---
Subjective Subjective Date of Service: 08/06/24 Interval History: patient ate yesterday so procedure postponed to today Physical Exam Vital Signs: Vital Signs: Last Vital Signs Temp 98.0 F 08/06/24 07:21 Pulse 60 08/06/24 07:21 Resp 18 08/06/24 07:21 BP 178/72 H 08/06/24 07:21 Pulse Ox 99 08/06/24 07:21 O2 Del Method Room Air 08/06/24 07:21 BMI result Body Mass Index 26.7 Const: General: comfortable, no acute distress and alert Orientation/consciousness: patient oriented x3 Neuro: General: patient oriented x3 Extrem: Other: right BKA site well healed left transmetatarsal amp site with large ulceration laterally, some fibrinous exudate persists, no necrosis, no significant surrounding erythema Objective Data Active Medications Acetaminophen (Acetaminophen 325 Mg Tablet) 650 mg PO Q6H PRN PRN Reason: Pain, Mild (Pain Scale 1-3), fever or headache Last Admin: 08/05/24 19:30 Dose: 650 mg Documented By: TEJAS Amitriptyline HCl (Amitriptyline Hcl 50 Mg Tablet) 50 mg PO BEDTIME [facility] Last Admin: 08/05/24 19:30 Dose: 50 mg Documented By: TEJAS Benzonatate (Benzonatate 100 Mg Capsule) 100 mg PO TID PRN PRN Reason: Cough Calcium Carbonate (Calcium Carbonate 750 Mg Tab.Chew) 750 mg PO Q4H PRN PRN Reason: Heartburn Diltiazem HCl (Diltiazem Hcl Cd 180 Mg Cap.Er.24h) 180 mg PO DAILY [facility]; Protocol Last Admin: 08/06/24 07:33 Dose: 180 mg Documented By: SHELLI Glucose (Glucose Gel 15 Gm Gel..Gram.) 15 gm PO Q15M PRN; Protocol PRN Reason: per Hypoglycemia Standing Ord. Heparin Sodium (Porcine) (Heparin Sodium,Porcine 5,000 Unit/Ml Vial) 5,000 unit SUBCUT Q8H [facility] Last Admin: 08/06/24 08:14 Dose: Not Given Documented By: SHELLI Non-Admin Reason: surgery today Doxycycline Hyclate 100 mg/ (Sodium Chloride) 250 mls @ 166.67 mls/hr IV Q12H [facility] Last Infusion: 08/06/24 02:00 Dose: Infused Documented By: TEJAS Piperacillin Sod/Tazobactam (Sod 3.375 gm/ Sodium Chloride) 50 mls @ 100 mls/hr IV Q6H [facility] Last Infusion: 08/06/24 08:16 Dose: Infused Documented By: SHELLI Dextrose (D10) 250 mls @ 750 mls/hr IV Q15M PRN; Protocol PRN Reason: per Hypoglycemia Standing Ord. Insulin Glargine (Insulin Glargine,Hum.Rec.Anlog 100 Unit/Ml 10 Ml Vial) 28 unit SUBCUT DAILY [facility] Last Admin: 08/06/24 07:37 Dose: Not Given Documented By: SHELLI Non-Admin Reason: NPO Insulin Glargine (Insulin Glargine,Hum.Rec.Anlog 100 Unit/Ml 10 Ml Vial) 28 unit SUBCUT BEDTIME [facility] Last Admin: 08/05/24 20:10 Dose: 28 unit Documented By: TEJAS Insulin Human Lispro (Insulin Lispro 100 Unit/Ml 3 Ml Vial) 0 unit SUBCUT QIDACHS [facility]; Protocol Last Admin: 08/06/24 07:37 Dose: Not Given Documented By: SHELLI Non-Admin Reason: No Insulin Coverage Losartan Potassium (Losartan Potassium 50 Mg Tablet) 50 mg PO DAILY [facility]; Protocol Last Admin: 08/06/24 07:33 Dose: 50 mg Documented By: SHELLI Magnesium Hydroxide (Milk Of Magnesia 30 Ml Oral.Susp) 30 ml PO DAILY PRN PRN Reason: Constipation Melatonin (Melatonin 3 Mg Tablet) 6 mg PO BEDTIME PRN PRN Reason: Insomnia Methadone HCl (Methadone Hcl 20 Mg/2 Ml Oral.Conc) 80 mg PO DAILY@0800 [facility] Last Admin: 08/06/24 07:33 Dose: 80 mg Documented By: SHELLI Co-signed By: COTEMA Ondansetron HCl (Ondansetron Hcl 4 Mg/2 Ml Vial) 4 mg IVPUSH Q8H PRN PRN Reason: Nausea and Vomiting Sodium Chloride (0.9 % Sodium Chloride Flush 3 Ml Syringe) 3 ml IVFLUSH QSHIFT [facility] Last Admin: 08/06/24 07:31 Dose: Not Given Documented By: SHELLI Non-Admin Reason: No Insulin Coverage Tramadol HCl (Tramadol Hcl 50 Mg Tablet) 50 mg PO Q4H PRN PRN Reason: Pain, Severe (Pain Scale 7-10) Last Admin: 08/05/24 19:30 Dose: 50 mg Documented By: TEJAS Labs 08/06/24 05:08 08/06/24 05:08 Labs: Laboratory Results - last 24 hr 08/05/24 08/05/24 08/05/24 11:22 16:04 19:36 MCV MCH MCHC RDW Plt Count MPV Absolute Nucleated RBC Nucleated RBC % (auto) Anion Gap Estim Creat Clear Calc Estimated GFR POC Glucose 94 179 H 169 H Fasting Glucose Calcium 08/06/24 08/06/24 05:08 07:17 MCV 80.0 MCH 24.5 L MCHC 30.6 L RDW 14.6 Plt Count 468 H MPV 9.3 L Absolute Nucleated RBC 0.000 Nucleated RBC % (auto) 0.0 Anion Gap 10 L Estim Creat Clear Calc 70.6 Estimated GFR > 60 POC Glucose 105 Fasting Glucose 115 H Calcium 9.4 Assessment and Plan (1) Diabetic foot infection: Status: Acute (2) Cellulitis: Status: Acute Plan 63M PMH PVD s/p right BKA 09/2023, insulin-dependent type 2 diabetes, hx of left ankle/foot osteomyelitis, TMA, pAFib not on anticoagulation, HTN, hepatitis-C s/p tx in 2009, and chronically wheelchair-bound who presented to the ED with?worsening chronic left foot diabetic foot infection. acute on chronic Diabetic left foot infection with acute osteomyelitis Doxycycline and Zosyn per ID, started 08/02/2024 plan for OR today 08/06/24 Anemia of chronic disease stable Insulin-dependent type 2 diabetes Sliding-scale insulin, Lantus Paroxysmal AFib Continue diltiazem Not on anticoagulation Opioid use disorder Continue methadone Full Code DVT Prophylaxis: hep sq reason for continued hospitalization:OR today Quality Stroke Does the patient have a stroke diagnosis?: No VTE Prior VTE?: No VTE Risk Level:: Medical - moderate - high VTE Device Contraindication: N/A - Device Ordered VTE Drug Contraindication: Treatment Not Indicated
[2024-08-06 11:09] LABS: Glucose, Whole Blood 98 mg/dL (60-115)
--- NOTE | 2024-08-06 12:44 | PC.NURSE ---
Dr. Quinonez aware of K+ of 5.4 and ok to continue
[2024-08-06 13:01] LABS: Glucose, Whole Blood 91 mg/dL (60-115)
--- NOTE | 2024-08-06 13:40 | P.CONAN_ITS ---
HPI - Anesthesia Eval Consult details Narrative: 63 yo M presenting for revision of left transmetatarsal stump. On methadone. PMF Active Problems Active Problems: All Active Problems Diabetic foot infection (Acute) Cellulitis (Acute) Bilateral lower leg cellulitis (Acute) Acute osteomyelitis (Acute) Skin infection (Acute) Below knee amputation (Acute) Hyperkalemia (Acute) Epidermal inclusion cyst (Acute) Atrial fibrillation (Acute) Past Medical History Medical History Hx of hepatitis Diabetic ulcer of right foot Atrial fibrillation Hypertension Diabetes Family History Family History Father History of lung cancer Mother History of diabetes mellitus Family history of problems with anesthesia: No Surgical History Surgical History 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 History of transmetatarsal amputation of foot (~09/2016) History of amputation of toe (~08/18/14) History of amputation of toe (~10/21/13) History of lipoma History of Problems with Anesthesia: No Social History Social History Household Members: Family Household Members Other:: mother Housing: Apartment Housing Other:: patient is homeless, couch surfing with friends/family Are you a primary resident care provider to a significant other at home: No Do you presently have visiting nurse or other home services: No Alcohol intake: never Patient Tobacco Use Status: Current everyday Tobacco user Tobacco use type: Cigarette Cigarettes Per Day: 6 Years Smoked: 49 Second Hand Smoke Exposure: Yes Substance Use Type: Crack/Cocaine Advance Directives Date on File: 04/28/24 service: No Meds Allergies Allergy/AdvReac Type Severity Reaction Status Date / Time furosemide [Lasix] Allergy Intermediate Hives Verified 08/02/24 10:50 levofloxacin [Levaquin] Allergy Unknown Gastrointestinal Verified 08/02/24 10:50 Upset metronidazole [Flagyl] Allergy Unknown Unknown Verified 08/02/24 10:50 latex Allergy Rash Verified 08/02/24 10:50 contrast dye Allergy Unknown rash, hives Uncoded 10/24/23 15:09 Active Medications: Current Medications Acetaminophen (Acetaminophen 325 Mg Tablet) 650 mg PO Q6H PRN PRN Reason: Pain, Mild (Pain Scale 1-3), fever or headache Last Admin: 08/05/24 19:30 Dose: 650 mg Amitriptyline HCl (Amitriptyline Hcl 50 Mg Tablet) 50 mg PO BEDTIME [facility] Last Admin: 08/05/24 19:30 Dose: 50 mg Benzonatate (Benzonatate 100 Mg Capsule) 100 mg PO TID PRN PRN Reason: Cough Calcium Carbonate (Calcium Carbonate 750 Mg Tab.Chew) 750 mg PO Q4H PRN PRN Reason: Heartburn Diltiazem HCl (Diltiazem Hcl Cd 180 Mg Cap.Er.24h) 180 mg PO DAILY [facility]; Protocol Last Admin: 08/06/24 07:33 Dose: 180 mg Glucose (Glucose Gel 15 Gm Gel..Gram.) 15 gm PO Q15M PRN; Protocol PRN Reason: per Hypoglycemia Standing Ord. Heparin Sodium (Porcine) (Heparin Sodium,Porcine 5,000 Unit/Ml Vial) 5,000 unit SUBCUT Q8H [facility] Last Admin: 08/06/24 08:14 Dose: Not Given Doxycycline Hyclate 100 mg/ (Sodium Chloride) 250 mls @ 166.67 mls/hr IV Q12H [facility] Last Admin: 08/06/24 13:16 Dose: 166.67 mls/hr Piperacillin Sod/Tazobactam (Sod 3.375 gm/ Sodium Chloride) 50 mls @ 100 mls/hr IV Q6H [facility] Last Infusion: 08/06/24 12:38 Dose: Infused Dextrose (D10) 250 mls @ 750 mls/hr IV Q15M PRN; Protocol PRN Reason: per Hypoglycemia Standing Ord. Insulin Glargine (Insulin Glargine,Hum.Rec.Anlog 100 Unit/Ml 10 Ml Vial) 28 unit SUBCUT DAILY [facility] Last Admin: 08/06/24 07:37 Dose: Not Given Insulin Glargine (Insulin Glargine,Hum.Rec.Anlog 100 Unit/Ml 10 Ml Vial) 28 unit SUBCUT BEDTIME [facility] Last Admin: 08/05/24 20:10 Dose: 28 unit Insulin Human Lispro (Insulin Lispro 100 Unit/Ml 3 Ml Vial) 0 unit SUBCUT QIDACHS [facility]; Protocol Last Admin: 08/06/24 11:30 Dose: Not Given Losartan Potassium (Losartan Potassium 50 Mg Tablet) 50 mg PO DAILY [facility]; Protocol Last Admin: 08/06/24 07:33 Dose: 50 mg Magnesium Hydroxide (Milk Of Magnesia 30 Ml Oral.Susp) 30 ml PO DAILY PRN PRN Reason: Constipation Melatonin (Melatonin 3 Mg Tablet) 6 mg PO BEDTIME PRN PRN Reason: Insomnia Methadone HCl (Methadone Hcl 20 Mg/2 Ml Oral.Conc) 80 mg PO DAILY@0800 [facility] Last Admin: 08/06/24 07:33 Dose: 80 mg Ondansetron HCl (Ondansetron Hcl 4 Mg/2 Ml Vial) 4 mg IVPUSH Q8H PRN PRN Reason: Nausea and Vomiting Sodium Chloride (0.9 % Sodium Chloride Flush 3 Ml Syringe) 3 ml IVFLUSH QSHIFT [facility] Last Admin: 08/06/24 07:31 Dose: Not Given Tramadol HCl (Tramadol Hcl 50 Mg Tablet) 50 mg PO Q4H PRN PRN Reason: Pain, Severe (Pain Scale 7-10) Last Admin: 08/05/24 19:30 Dose: 50 mg Home Medications ?Medication ?Instructions ?Recorded ?Confirmed ?Last Taken ?Type amitriptyline 50 mg tablet 50 mg PO BEDTIME 12/09/20 08/02/24 06/20/24 History blood sugar diagnostic (FreeStyle #10 ea 03/08/22 06/21/24 Unknown History Lite Strips) insulin syringe-needle U-100 1 mL #10 ea 03/08/22 10/28/23 Unknown History 31 gauge x 5/16 (BD Insulin Syringe Ultra-Fine) diltiazem HCl 180 mg capsule,24 180 mg PO DAILY 04/09/24 08/02/24 08/02/24 09:00 History hr,extended release methadone 10 mg/mL oral concentrate 80 mg PO DAILY 04/10/24 08/03/24 08/02/24 08:00 History insulin glargine 100 unit/mL 40 unit subcut BID 06/21/24 08/02/24 08/02/24 09:00 History subcutaneous solution (Lantus U-100 Insulin) Exam Exam Date and Time: 08/06/24 1340 Height,Weight and Vital Signs: Height 6 ft Weight 89.4 kg Last Vital Signs Temp 97.6 F 08/06/24 13:00 Pulse 57 08/06/24 13:00 Resp 16 08/06/24 13:00 BP 166/76 H 08/06/24 13:25 Pulse Ox 100 08/06/24 13:00 O2 Del Method Room Air 08/06/24 13:00 Pertinent Lab Results Pertinent Lab Results: Laboratory Tests 08/02/24 08/02/24 08/02/24 12:37 14:59 16:44 WBC 13.3 H RBC 3.39 L Hgb 8.3 L Hct 27.1 L MCV 79.9 L MCH 24.5 L MCHC 30.6 L RDW 14.4 Plt Count 439 H MPV 9.1 L Immature Gran % (Auto) 0.4 Neut % (Auto) 75.9 H Lymph % (Auto) 15.1 L [place] % (Auto) 7.0 Eos % (Auto) 1.4 Baso % (Auto) 0.2 Lymph # (Auto) 2.0 [place] # (Auto) 0.9 Eos # (Auto) 0.2 Baso # (Auto) 0.0 Abs Immat Gran (auto) 0.05 H Absolute Neuts (auto) 10.1 H Absolute Nucleated RBC 0.000 Nucleated RBC % (auto) 0.0 ESR 115 H Sodium 136 Potassium 3.9 Chloride 100 Carbon Dioxide 27 Anion Gap 13 BUN 15 Creatinine 1.02 Estim Creat Clear Calc 93.7 Estimated GFR > 60 POC Glucose 83 Random Glucose 179 H Fasting Glucose Lactic Acid 2.1 H* Lactic Acid F/U @ 2Hr 1.3 Calcium 8.9 Magnesium 1.9 Iron TIBC % Saturation Unsat Iron Binding Total Bilirubin 0.1 AST 9 ALT 9 Alkaline Phosphatase 78 C-Reactive Protein 5.41 H Total Protein 8.2 H Albumin 3.0 L 08/02/24 08/02/24 08/03/24 18:16 20:29 06:46 WBC RBC Hgb Hct MCV MCH MCHC RDW Plt Count MPV Immature Gran % (Auto) Neut % (Auto) Lymph % (Auto) [place] % (Auto) Eos % (Auto) Baso % (Auto) Lymph # (Auto) [place] # (Auto) Eos # (Auto) Baso # (Auto) Abs Immat Gran (auto) Absolute Neuts (auto) Absolute Nucleated RBC Nucleated RBC % (auto) ESR Sodium Potassium Chloride Carbon Dioxide Anion Gap BUN Creatinine Estim Creat Clear Calc Estimated GFR POC Glucose 72 170 H 66 Random Glucose Fasting Glucose Lactic Acid Lactic Acid F/U @ 2Hr Calcium Magnesium Iron TIBC % Saturation Unsat Iron Binding Total Bilirubin AST ALT Alkaline Phosphatase C-Reactive Protein Total Protein Albumin 08/03/24 08/03/24 08/03/24 07:23 09:07 11:24 WBC RBC Hgb Hct MCV MCH MCHC RDW Plt Count MPV Immature Gran % (Auto) Neut % (Auto) Lymph % (Auto) [place] % (Auto) Eos % (Auto) Baso % (Auto) Lymph # (Auto) [place] # (Auto) Eos # (Auto) Baso # (Auto) Abs Immat Gran (auto) Absolute Neuts (auto) Absolute Nucleated RBC Nucleated RBC % (auto) ESR Sodium 138 Potassium 4.1 Chloride 103 Carbon Dioxide 29 Anion Gap 10 L BUN 13 Creatinine 0.84 Estim Creat Clear Calc 100.0 Estimated GFR > 60 POC Glucose 70 89 Random Glucose 88 Fasting Glucose Lactic Acid Lactic Acid F/U @ 2Hr Calcium 8.9 Magnesium Iron 38 L TIBC 170 L % Saturation 22 Unsat Iron Binding 132 Total Bilirubin AST ALT Alkaline Phosphatase C-Reactive Protein Total Protein Albumin 08/03/24 08/03/24 08/04/24 16:22 20:09 05:38 WBC 8.8 RBC 3.50 L Hgb 8.3 L Hct 27.8 L MCV 79.4 L MCH 23.7 L MCHC 29.9 L RDW 14.6 Plt Count 455 H MPV 9.4 Immature Gran % (Auto) Neut % (Auto) Lymph % (Auto) [place] % (Auto) Eos % (Auto) Baso % (Auto) Lymph # (Auto) [place] # (Auto) Eos # (Auto) Baso # (Auto) Abs Immat Gran (auto) Absolute Neuts (auto) Absolute Nucleated RBC 0.000 Nucleated RBC % (auto) 0.0 ESR Sodium 140 Potassium 4.3 Chloride 102 Carbon Dioxide 29 Anion Gap 13 BUN 16 Creatinine 0.96 Estim Creat Clear Calc 87.5 Estimated GFR > 60 POC Glucose 130 H 109 Random Glucose 79 Fasting Glucose Lactic Acid Lactic Acid F/U @ 2Hr Calcium 9.3 Magnesium Iron TIBC % Saturation Unsat Iron Binding Total Bilirubin AST ALT Alkaline Phosphatase C-Reactive Protein Total Protein Albumin 08/04/24 08/04/24 08/04/24 06:47 07:18 11:02 WBC RBC Hgb Hct MCV MCH MCHC RDW Plt Count MPV Immature Gran % (Auto) Neut % (Auto) Lymph % (Auto) [place] % (Auto) Eos % (Auto) Baso % (Auto) Lymph # (Auto) [place] # (Auto) Eos # (Auto) Baso # (Auto) Abs Immat Gran (auto) Absolute Neuts (auto) Absolute Nucleated RBC Nucleated RBC % (auto) ESR Sodium Potassium Chloride Carbon Dioxide Anion Gap BUN Creatinine Estim Creat Clear Calc Estimated GFR POC Glucose 64 88 169 H Random Glucose Fasting Glucose Lactic Acid Lactic Acid F/U @ 2Hr Calcium Magnesium Iron TIBC % Saturation Unsat Iron Binding Total Bilirubin AST ALT Alkaline Phosphatase C-Reactive Protein Total Protein Albumin 08/04/24 08/04/24 08/05/24 15:52 20:40 05:02 WBC 7.7 RBC 3.55 L Hgb 8.5 L Hct 28.5 L MCV 80.3 MCH 23.9 L MCHC 29.8 L RDW 14.5 Plt Count 470 H MPV 9.5 Immature Gran % (Auto) Neut % (Auto) Lymph % (Auto) [place] % (Auto) Eos % (Auto) Baso % (Auto) Lymph # (Auto) [place] # (Auto) Eos # (Auto) Baso # (Auto) Abs Immat Gran (auto) Absolute Neuts (auto) Absolute Nucleated RBC 0.000 Nucleated RBC % (auto) 0.0 ESR Sodium 139 Potassium 5.6 H D Chloride 102 Carbon Dioxide 28 Anion Gap 15 BUN 22 H Creatinine 1.27 Estim Creat Clear Calc 66.1 Estimated GFR 57 POC Glucose 217 H 184 H Random Glucose Fasting Glucose 133 H Lactic Acid Lactic Acid F/U @ 2Hr Calcium 9.4 Magnesium 2.0 Iron TIBC % Saturation Unsat Iron Binding Total Bilirubin AST ALT Alkaline Phosphatase C-Reactive Protein Total Protein Albumin 08/05/24 08/05/24 08/05/24 07:25 11:22 16:04 WBC RBC Hgb Hct MCV MCH MCHC RDW Plt Count MPV Immature Gran % (Auto) Neut % (Auto) Lymph % (Auto) [place] % (Auto) Eos % (Auto) Baso % (Auto) Lymph # (Auto) [place] # (Auto) Eos # (Auto) Baso # (Auto) Abs Immat Gran (auto) Absolute Neuts (auto) Absolute Nucleated RBC Nucleated RBC % (auto) ESR Sodium Potassium Chloride Carbon Dioxide Anion Gap BUN Creatinine Estim Creat Clear Calc Estimated GFR POC Glucose 97 94 179 H Random Glucose Fasting Glucose Lactic Acid Lactic Acid F/U @ 2Hr Calcium Magnesium Iron TIBC % Saturation Unsat Iron Binding Total Bilirubin AST ALT Alkaline Phosphatase C-Reactive Protein Total Protein Albumin 08/05/24 08/06/24 08/06/24 19:36 05:08 07:17 WBC 8.0 RBC 3.55 L Hgb 8.7 L Hct 28.4 L MCV 80.0 MCH 24.5 L MCHC 30.6 L RDW 14.6 Plt Count 468 H MPV 9.3 L Immature Gran % (Auto) Neut % (Auto) Lymph % (Auto) [place] % (Auto) Eos % (Auto) Baso % (Auto) Lymph # (Auto) [place] # (Auto) Eos # (Auto) Baso # (Auto) Abs Immat Gran (auto) Absolute Neuts (auto) Absolute Nucleated RBC 0.000 Nucleated RBC % (auto) 0.0 ESR Sodium 137 Potassium 5.4 H Chloride 103 Carbon Dioxide 29 Anion Gap 10 L BUN 25 H Creatinine 1.19 Estim Creat Clear Calc 70.6 Estimated GFR > 60 POC Glucose 169 H 105 Random Glucose Fasting Glucose 115 H Lactic Acid Lactic Acid F/U @ 2Hr Calcium 9.4 Magnesium Iron TIBC % Saturation Unsat Iron Binding Total Bilirubin AST ALT Alkaline Phosphatase C-Reactive Protein Total Protein Albumin 08/06/24 08/06/24 11:05 12:57 WBC RBC Hgb Hct MCV MCH MCHC RDW Plt Count MPV Immature Gran % (Auto) Neut % (Auto) Lymph % (Auto) [place] % (Auto) Eos % (Auto) Baso % (Auto) Lymph # (Auto) [place] # (Auto) Eos # (Auto) Baso # (Auto) Abs Immat Gran (auto) Absolute Neuts (auto) Absolute Nucleated RBC Nucleated RBC % (auto) ESR Sodium Potassium Chloride Carbon Dioxide Anion Gap BUN Creatinine Estim Creat Clear Calc Estimated GFR POC Glucose 98 91 Random Glucose Fasting Glucose Lactic Acid Lactic Acid F/U @ 2Hr Calcium Magnesium Iron TIBC % Saturation Unsat Iron Binding Total Bilirubin AST ALT Alkaline Phosphatase C-Reactive Protein Total Protein Albumin Airway Mallampati Class: II TM Dist: >3cm Loose/Missing/Broken Teeth: Yes (edentulous) Heart: S1S2 Lungs: CTAB Assessment and Plan Assessment Anesthesia Assessment: Anesthesia Plan Discussed and Chart Reviewed Final Anesthetic Review Family History of Problems with Anesthesia: No History of Problems with Anesthesia: No NPO: Yes ASA Class: III Final Preanesthetic Review: No Changes in Pt Med Stat, Meds/Allgs Chart Reviewed, Consent Obtained/Reviewed and Anes Risks/Benef Reviewed Patient Risk: Intermediate Procedure Risk: Low Anesthetic Plan Anesthetic Plan: GA, Regional Block (left saphenous and sciatic blocks) and Agre e w/ Assess. and Plan Disposition: Standard PACU
--- NOTE | 2024-08-06 13:56 | MHC.SHP ---
Pre-Procedural Eval Section A - 24 Hr Update-Section A only Date of Service: 08/06/24 The patient is an INPATIENT: Yes Changes since office visit: No Cold of Flu in the past 2 weeks, No New Medical Problems, No Changes in Medication and No Patient answered all questions The patient has been examined within 24 hours of the surgical procedure. The History & Physical has been completed within 30 days and I have reviewed it.: Yes Section B - Complete if H&P > 30 days Chief Complaint: Diabetic foot infection Allergies: Allergies Allergy/AdvReac Type Severity Reaction Status Date / Time furosemide [Lasix] Allergy Intermediate Hives Verified 08/02/24 10:50 levofloxacin [Levaquin] Allergy Unknown Gastrointestinal Verified 08/02/24 10:50 Upset metronidazole [Flagyl] Allergy Unknown Unknown Verified 08/02/24 10:50 latex Allergy Rash Verified 08/02/24 10:50 contrast dye Allergy Unknown rash, hives Uncoded 10/24/23 15:09 Plan I have reviewed the history and physical and performed a pertinent physical examination on my patient. No changes have occurred unless specified. Time Spent With Patient Time: Total time managing care of this patient today ____ minutes.
--- NOTE | 2024-08-06 15:01 | P.OP_ITS ---
Operative Note Operative Note Date of Service: 08/06/24 Narrative: Preop diagnosis: History of transmetatarsal amputation with open wound, left foot, osteomyelitis of the remaining 5th metatarsal Postop diagnosis: The same Procedure: Revision of the transmetatarsal amputation stump, with resection of the remaining 5th metatarsal at the tarsometatarsal joint Surgeon: Jeff Graves MD The patient is a 61-year-old male who had a transmetatarsal amputation 2 years ago. This apparently had healed already but he had developed open wound with drainage on the lateral aspect towards the plantar surface. An MRI showed osteomyelitis of the remaining 5th metatarsal. Furthermore, on palpation of the open wound, the metatarsal edge of the amputated stump was palpable as well I explained to him that it may be best to proceed with removal of this metatarsal at the tarsometatarsal junction. He did not want a BKA at this time although he did understand that this may be necessary down the line. He understood the risks, benefits, and alternatives He was brought to the operating room and placed in supine position and a little bit rotated to the right to expose the aspect of the left foot. The left foot was prepped and draped in the usual sterile fashion. A surgical time-out was done. An ankle block had been done by the anesthesiologist earlier There was note of an open wound along the distal aspect of the forefoot at the lateral and plantar area. I was able to feel and visualize the metatarsal. I cauterized the soft tissue overlying this to expose the entire 5th metatarsal at the lateral border. I then proceeded to use the periosteal elevator to separate the soft tissue from the 5th metatarsal was circumferentially. I used the curved Riddle scissors to divide the remaining soft tissue attaching this 5th metatarsal. I expose the 5th metatarsal all the way to the tarsometatarsal junction and dissected this at this junction using scissors. This was sent as a specimen The entire 5th metatarsal was very friable and was breaking apart during the pro cedure so this was sent in multiple pieces. I copiously irrigated the area. I cauterized oozing areas. Once hemostasis was confirmed, I reapposed the thick skin and soft tissue using nylon 2-0 sutures to cover this entire area of resection . There was note of some skin separation which could not be completely closed in view of the inadequate tissue I applied dressings and wrapped the foot with Kerlix roll and Quentin. The procedure was completed. He tolerated the procedure well. There were no immediate complications. There was minimal blood loss He was extubated without difficulty and transferred to the recovery room with stable vital signs
[2024-08-06] MEDS: 0.9 % Sodium Chloride Flush 3 ML SYRINGE IVFLUSH (15:29)
[2024-08-06 16:05] LABS: Glucose, Whole Blood 113 mg/dL (60-115)
[2024-08-06] MEDS: Heparin Sodium,Porcine 5,000 UNIT/ML VIAL 5000 UNIT SUBCUT (18:05)
[2024-08-06] MEDS: Amitriptyline HCl 50 MG TABLET PO (18:57)
[2024-08-06] MEDS: oxyCODONE HCl Immed Release 5 MG TABLET 10 MG PO (18:57)
[2024-08-06] MEDS: Acetaminophen 325 MG TABLET 650 MG PO (18:57)
[2024-08-06 20:16] LABS: Glucose, Whole Blood 271 mg/dL (60-115)
[2024-08-06] MEDS: Insulin Lispro 100 UNIT/ML 3 ML VIAL SUBCUT (20:38)
[2024-08-06] MEDS: Insulin Glargine,Hum.rec.anlog 100 UNIT/ML 10 ML VIAL 28 UNIT SUBCUT (20:38)
[2024-08-07] MEDS: Doxycycline Hyclate 100 MG in 0.9 % Sodium Chloride 250 ML 166.67 MG IV (00:02)
[2024-08-07] MEDS: 0.9 % Sodium Chloride Flush 3 ML SYRINGE IVFLUSH ×2 (00:03→09:14)
[2024-08-07] MEDS: Heparin Sodium,Porcine 5,000 UNIT/ML VIAL 5000 UNIT SUBCUT ×3 (01:45→18:33)
[2024-08-07 03:44] VITALS: BP 150/62; PULSE 57; RESP 18; TEMP 36.3; O2SAT 98
[2024-08-07] MEDS: Piperacillin Sodium/Tazobactam 3.375 GM in 0.9 % Sodium Chloride 50 ML IV (06:02)
--- NOTE | 2024-08-07 06:57 | HO.STUDENTPN ---
Subjective Subjective Date of Service: 08/07/24 <Lucero Silva - Last Filed: 08/07/24 07:01> 08/07/24 <Jeff Graves MD - Last Filed: 08/07/24 09:06> 08/07/24 <Katelyn Comer PA-C - Last Filed: 08/07/24 11:00> Interval History: Mr. Zapata is a 63 year old male POD1 for amputation of L 5th metatarsal due to MRI concerning for osteomyelitis. He states that he is doing well, pain is well controlled at this moment. No bowel movement yet. Last BM was prior to procedure yesterday. Denies flatus. Reports appetite is intact. <Lucero BenzBrien - Last Filed: 08/07/24 07:01> Constitutional Constitutional: Denies chills <Lucero BenzBrien - Last Filed: 08/07/24 07:01> Cardiovascular Cardiovascular: Denies chest pain, Denies dyspnea and Denies dyspnea on exertion <Lucero Roxbury - Last Filed: 08/07/24 07:01> Respiratory Respiratory: Denies cough, Denies dyspnea and Denies dyspnea on exertion <Lucero Roxbury - Last Filed: 08/07/24 07:01> Gastrointestinal Gastrointestinal: Denies hematochezia and Denies change in bowel habits <Lucero BenzBrien - Last Filed: 08/07/24 07:01> Genitourinary Genitourinary: Denies hematuria and Denies difficulty urinating <Lucero BenzBrien - Last Filed: 08/07/24 07:01> Musculoskeletal Musculoskeletal: Denies back pain and Denies limited range of motion <uLcero BenzBrien - Last Filed: 08/07/24 07:01> Neurologic Neurologic: Denies focal weakness and Denies convulsions <Lucero BenzBrien - Last Filed: 08/07/24 07:01> Psychiatric Psychiatric: Denies depression and Denies mood swings <Lucero BenzBrien - Last Filed: 08/07/24 07:01> Physical Exam Vital Signs: Vital Signs: Last Vital Signs Temp 97.3 F 08/07/24 03:44 Pulse 57 08/07/24 03:44 Resp 18 08/07/24 03:44 BP 150/62 H 08/07/24 03:44 Pulse Ox 98 08/07/24 03:44 O2 Del Method Room Air 08/07/24 03:44 O2 Flow Rate 4 08/06/24 15:08 BMI result Body Mass Index 26.7 <Showpad'Brien [facility] Last Filed: 08/07/24 07:01> Const: Other: Constitutional : interactive, not in distress Cardiovascular : no JVP, no lower extremity edema Respiratory : bilateral chest movement, not in respiratory distress Gastrointestinal: soft, lax, Non tender Skin : Warm, Dry, BKA stump right with no wounds, Left transmetatarsal stump covered with dressing Neurological : Alert & oriented , No focal deficit <Showpad'Brien - Last Filed: 08/07/24 07:01> General: comfortable, no acute distress and alert <Showpad'Ignyta Last Filed: 08/07/24 07:01> Orientation/consciousness: patient oriented x3 <Showpad'Brien [facility] Last Filed: 08/07/24 07:01> Limitations: No language barrier <Showpad'Ignyta Last Filed: 08/07/24 07:01> Resp: Effort & Inspection: normal respiratory effort <Showpad'Ignyta Last Filed: 08/07/24 07:01> Cardio: Rate: regular rate <Showpad'Ignyta Last Filed: 08/07/24 07:01> GI: Palpation (GI): Soft to palpation and not firm <Showpad'Ignyta Last Filed: 08/07/24 07:01> Neuro: General: patient oriented x3 <Showpad'Ignyta Last Filed: 08/07/24 07:01> Extrem: Other: right BKA site well healed left transmetatarsal amp site with large ulceration laterally, some fibrinous exudate persists, no necrosis, no significant surrounding erythema <Showpad'Ignyta Last Filed: 08/07/24 07:01> Objective Data Active Medications Acetaminophen (Acetaminophen 325 Mg Tablet) 650 mg PO Q6H PRN PRN Reason: Pain, Mild (Pain Scale 1-3), fever or headache Last Admin: 08/06/24 18:57 Dose: 650 mg Documented By: TEJAS Amitriptyline HCl (Amitriptyline Hcl 50 Mg Tablet) 50 mg PO BEDTIME [facility] Last Admin: 08/06/24 18:57 Dose: 50 mg Documented By: TEJAS Benzonatate (Benzonatate 100 Mg Capsule) 100 mg PO TID PRN PRN Reason: Cough Calcium Carbonate (Calcium Carbonate 750 Mg Tab.Chew) 750 mg PO Q4H PRN PRN Reason: Heartburn Diltiazem HCl (Diltiazem Hcl Cd 180 Mg Cap.Er.24h) 180 mg PO DAILY [facility]; Protocol Last Admin: 08/06/24 07:33 Dose: 180 mg Documented By: SHELLI Glucose (Glucose Gel 15 Gm Gel..Gram.) 15 gm PO Q15M PRN; Protocol PRN Reason: per Hypoglycemia Standing Ord. Heparin Sodium (Porcine) (Heparin Sodium,Porcine 5,000 Unit/Ml Vial) 5,000 unit SUBCUT Q8H [facility] Last Admin: 08/07/24 01:45 Dose: 5,000 unit Documented By: RYLEE Doxycycline Hyclate 100 mg/ (Sodium Chloride) 250 mls @ 166.67 mls/hr IV Q12H [facility] Last Infusion: 08/07/24 01:35 Dose: Infused Documented By: RYLEE Piperacillin Sod/Tazobactam (Sod 3.375 gm/ Sodium Chloride) 50 mls @ 100 mls/hr IV Q6H [facility] Last Infusion: 08/07/24 06:41 Dose: Infused Documented By: RYLEE Dextrose (D10) 250 mls @ 750 mls/hr IV Q15M PRN; Protocol PRN Reason: per Hypoglycemia Standing Ord. Insulin Glargine (Insulin Glargine,Hum.Rec.Anlog 100 Unit/Ml 10 Ml Vial) 28 unit SUBCUT DAILY [facility] Last Admin: 08/06/24 07:37 Dose: Not Given Documented By: SHELLI Non-Admin Reason: NPO Insulin Glargine (Insulin Glargine,Hum.Rec.Anlog 100 Unit/Ml 10 Ml Vial) 28 unit SUBCUT BEDTIME [facility] Last Admin: 08/06/24 20:38 Dose: 28 unit Documented By: TEJAS Insulin Human Lispro (Insulin Lispro 100 Unit/Ml 3 Ml Vial) 0 unit SUBCUT QIDACHS [facility]; Protocol Last Admin: 08/06/24 20:38 Dose: 6 unit Documented By: TEJAS Losartan Potassium (Losartan Potassium 50 Mg Tablet) 50 mg PO DAILY [facility]; Protocol Last Admin: 08/06/24 07:33 Dose: 50 mg Documented By: SHELLI Magnesium Hydroxide (Milk Of Magnesia 30 Ml Oral.Susp) 30 ml PO DAILY PRN PRN Reason: Constipation Melatonin (Melatonin 3 Mg Tablet) 6 mg PO BEDTIME PRN PRN Reason: Insomnia Methadone HCl (Methadone Hcl 20 Mg/2 Ml Oral.Conc) 80 mg PO DAILY@0800 [facility] Last Admin: 08/06/24 07:33 Dose: 80 mg Documented By: SHELLI Co-signed By: COTEMA Morphine Sulfate (Morphine Sulfate 4 Mg/Ml Cartridge) 3 mg IVPUSH Q4H PRN; Protocol PRN Reason: Pain, Severe (Pain Scale 7-10) Naloxone HCl (Naloxone Hcl 0.4 Mg/Ml Vial) 0.04 mg IVPUSH Q5M PRN PRN Reason: Excessive sedation or RR < 8 Ondansetron HCl (Ondansetron Hcl 4 Mg/2 Ml Vial) 4 mg IVPUSH Q8H PRN PRN Reason: Nausea and Vomiting Oxycodone HCl (Oxycodone Hcl Immed Release 5 Mg Tablet) 10 mg PO Q4H PRN PRN Reason: Pain, Moderate(Pain Scale 4-6) Last Admin: 08/06/24 18:57 Dose: 10 mg Documented By: TEJAS Sodium Chloride (0.9 % Sodium Chloride Flush 3 Ml Syringe) 3 ml IVFLUSH QSHIFT [facility] Last Admin: 08/07/24 00:03 Dose: 3 ml Documented By: ANTOIC <Lucero Silva - Last Filed: 08/07/24 07:01> Labs CBC & Chem 7: 08/07/24 07:28 08/07/24 07:28 <Lucero Silva - Last Filed: 08/07/24 07:01> Labs: Laboratory Results - last 24 hr 08/06/24 08/06/24 08/06/24 05:08 07:17 11:05 MCV 80.0 MCH 24.5 L MCHC 30.6 L RDW 14.6 Plt Count 468 H MPV 9.3 L Absolute Nucleated RBC 0.000 Nucleated RBC % (auto) 0.0 POC Glucose 105 98 08/06/24 08/06/24 08/06/24 12:57 16:02 20:06 MCV MCH MCHC RDW Plt Count MPV Absolute Nucleated RBC Nucleated RBC % (auto) POC Glucose 91 113 271 H <Lucerodennis Silva - Last Filed: 08/07/24 07:01> Assessment and Plan (1) Acute osteomyelitis: Status: Acute <Lucerodennis Silva - Last Filed: 08/07/24 07:01> Assessment and Plan: Has good pain control Feels well overall I have changed his dressings He has a gap on the incision because of the inadequate soft tissue coverage I applied wet-to-dry on this area Otherwise no pus or cellulitis Continue daily wound care with dry dressing Seen and examined independently <Jeff Graves MD - Last Filed: 08/07/24 09:06> Assessment and Plan: 63M PMH PVD s/p right BKA 09/2023, insulin-dependent type 2 diabetes, hx of left ankle/foot osteomyelitis, TMA, pAFib not on anticoagulation, HTN, hepatitis-C s/p tx in 2009, and chronically wheelchair-bound is POD1 for amputation of L 5th metatarsal. Pain is well-controlled today, sensory and motor function intact. Appetite is intact. No bowel movement post procedure yet. Dressing change scheduled scheduled for today. Will continue to monitor and address any concerns. <Lucero Silva - Last Filed: 08/07/24 07:01> Quality Stroke Does the patient have a stroke diagnosis?: No <Lucero Silva - Last Filed: 08/07/24 07:01> VTE Prior VTE?: No <Lucero Silva - Last Filed: 08/07/24 07:01> VTE Risk Level:: Medical - moderate - high <Lucero Silva - Last Filed: 08/07/24 07:01> VTE Device Contraindication: N/A - Device Ordered <Lucero Silva - Last Filed: 08/07/24 07:01> VTE Drug Contraindication: Treatment Not Indicated <Lucero Silva - Last Filed: 08/07/24 07:01>
[2024-08-07 07:14] LABS: Glucose, Whole Blood 197 mg/dL (60-115)
[2024-08-07 07:24] VITALS: BP 158/78; PULSE 66; RESP 16; TEMP 36.4; O2SAT 98
[2024-08-07 07:38] LABS: Hematocrit 28.4 % (42.0-52.0); Hemoglobin 8.8 g/dl (14.0-18.0); Mean Corpuscular Hemoglobin 24.8 pg (27.0-33.0); Mean Platelet Volume 9.2 fL (9.4-12.4); Platelet Count 442 X10*3/uL (160-400); Red Blood Count 3.55 X10*6/uL (4.60-5.80); Red Cell Distribution Width 14.7 % (11.0-16.0); White Blood Count 14.8 X10*3/uL (4.8-10.8)
[2024-08-07 07:54] LABS: Anion Gap 13 (12-20); Blood Urea Nitrogen 25 mg/dL (9-16); Calcium 9.5 mg/dL (8.4-10.2); Carbon Dioxide 26 mmol/L (22-29); Chloride 102 mmol/L (96-108); Creatinine Clr Calc Pharmacy 74.3; Estimated Glomerular Filt Rate > 60; Glucose Fasting 196 mg/dL (60-99); Potassium 4.8 mmol/L (3.3-5.1); Sodium 136 mmol/L (135-145)
[2024-08-07] MEDS: Insulin Lispro 100 UNIT/ML 3 ML VIAL SUBCUT ×2 (09:10→12:17)
[2024-08-07] MEDS: Insulin Glargine,Hum.rec.anlog 100 UNIT/ML 10 ML VIAL 28 UNIT SUBCUT (09:10)
[2024-08-07] MEDS: methADONE HCl 20 MG/2 ML ORAL.CONC 80 MG PO (09:11)
[2024-08-07 09:19] VITALS: BP 164/80; PULSE 66
[2024-08-07] MEDS: dilTIAZem HCL CD 180 MG CAP.ER.24H PO (09:19)
[2024-08-07] MEDS: Losartan Potassium 50 MG TABLET PO (09:19)
--- NOTE | 2024-08-07 09:37 | PM.DS ---
DS: Providers Provider Date of Service: 08/07/24 Date of admission: 08/02/24 14:00 Date of discharge: 08/07/24 Primary care physician: Mac Clarke MD Consults: 08/02/24 15:03 Consult to General Surgery Routine Consulting Provider: [facility] Reason for consultation: Worsening diabetc foot ulcer, ?osteo DS: Diagnosis Discharge Diagnosis (1) Acute osteomyelitis: Status: Acute DS: Summary Hospital Course Hospital Course: from initial hpi: 63-year-old male with a PMH significant for? PVD s/p right BKA 09/2023, insulin-dependent type 2 diabetes, hx of left ankle/foot osteomyelitis, TMA, AFib not on anticoagulation, HTN, hepatitis-C s/p tx in 2009, and chronically wheelchair-bound who presents to the ED with?worsening chronic left foot diabetic foot infection. Patient was recently admitted to the hospital on 06/21-06/25 and treated for acute osteomyelitis of left foot. Was discharged home with PICC line for treatment with daptomycin x6 weeks which he completed yesterday. Reports has been taking medications as prescribed and did not miss any dosages. Despite treatment, patient has been experiencing increased left leg pain, redness, swelling, and with foul-smelling and purulent discharge from open wound. No fever, chills, nausea, vomiting, abdominal pain. No chest pain/pressure, or palpitations. Denies shortness or breath or difficulty breathing. ED providers reached to infectious disease who recommended admitting patient for IV doxy and Zosyn and vascular surgery consult for likely amputation. In the ED pt was slightly hypertensive at 148/70, vitals otherwise WNL. Labs were significant for leukocytosis of 13.3, microcytic anemia of 8.3/27.1, lactic acid 2.1, ESR 115, CRP 5.41, and albumin 3.0. X-ray of left foot found TMA with anterior soft tissue edema but no evidence to suggest acute osteomyelitis. Pt was treated with IVF, doxycycline, and Zosyn. Pt will be admitted to the hospital for treatment and further evaluation of worsening chronic diabetic foot infection concerning for osteomyelitis that failed outpatient therapy. hospital course: Patient was admitted for acute on chronic diabetic left foot infection with acute osteomyelitis. Was treated with Zosyn doxycycline, underwent left 5th metatarsal amputation on 08/06/2024. Perioperative period was unremarkable. We will hold off on further antibiotics on discharge as infected bone removed. For anemia of chronic disease he remained stable. For diabetes he was continued on basal bolus insulin. For paroxysmal atrial fibrillation was continued on diltiazem he is no longer on anticoagulation. Her opiate use disorder he is continued on methadone. Patient will be discharged home he will continue wet-to-dry daily dressings and follow up with surgery. Time Attestation Discharge Coordination Time (in mins): 34 Quality: Safe Use of Opioids Does Pt have an Active Cancer Diagnosis on the Problem List?: No Quality: Stroke Does the patient have a stroke diagnosis?: No Physical Exam Vital Signs: Vital Signs: Last Vital Signs Temp 97.5 F 08/07/24 07:24 Pulse 66 08/07/24 09:19 Resp 16 08/07/24 07:24 BP 164/80 H 08/07/24 09:19 Pulse Ox 98 08/07/24 07:24 O2 Del Method Room Air 08/07/24 07:24 O2 Flow Rate 4 08/06/24 15:08 BMI result Body Mass Index 26.7 General: AO X 3, no acute distress Resp: CTA bilateral, no accessory muscles used CVS: S1,S2,RRR GI: soft, non tender, non distended Neuro: motor grossly intact, alert Psych: appropriate affect, appropriate insight DS: Data Data Completed and Pending Completed studies during hospitalization [Text1]: Procedures Detachment at Right Lower Leg, High, Open Approach (03/03/23) Insertion of Infusion Device into Superior Vena Cava, Percutaneous Approach (06/21/24) Ultrasonography of Superior Vena Cava, Guidance (06/21/24) Pending studies at discharge: Pending at discharge 08/06/24 14:45 Surgical [PTH] Routine Labs on day of discharge: Laboratory Results - last 24 hr 08/06/24 08/06/24 08/06/24 11:05 12:57 16:02 WBC RBC Hgb Hct MCV MCH MCHC RDW Plt Count MPV Absolute Nucleated RBC Nucleated RBC % (auto) Sodium Potassium Chloride Carbon Dioxide Anion Gap BUN Creatinine Estim Creat Clear Calc Estimated GFR POC Glucose 98 91 113 Fasting Glucose Calcium 08/06/24 08/07/24 08/07/24 20:06 07:10 07:28 WBC 14.8 H RBC 3.55 L Hgb 8.8 L Hct 28.4 L MCV 80.0 MCH 24.8 L MCHC 31.0 RDW 14.7 Plt Count 442 H MPV 9.2 L Absolute Nucleated RBC 0.000 Nucleated RBC % (auto) 0.0 Sodium 136 Potassium 4.8 Chloride 102 Carbon Dioxide 26 Anion Gap 13 BUN 25 H Creatinine 1.13 Estim Creat Clear Calc 74.3 Estimated GFR > 60 POC Glucose 271 H 197 H Fasting Glucose 196 H Calcium 9.5 Preliminary micro results at discharge 08/02/24 12:54 Blood Culture - Preliminary Blood - Venous No growth after 48 hours. 08/02/24 12:37 Blood Culture - Preliminary Blood - Venous No growth after 48 hours. Discharge Plan Discharge Anticipated Discharge Date/Time: 08/07/24 09:16 Patient Disposition: Home Health Service Discharge Diagnosis: dfu/om Referrals: Mca Clarke MD [Primary Care Provider] - 1 Week Jeff Graves MD [Physician] - 1 Week Discharge Medications: New losartan 50 mg Tablet 50 mg PO DAILY Qty: 90 0RF Protocol: Hold for SBP< HOLD for SBP < : 90 oxycodone 5 mg Tablet 10 mg PO Q4H PRN (Reason: Pain, Moderate(Pain Scale 4-6)) Qty: 15 0RF Rx Instructions: Partial Fill upon patient request. Continued (DME) Off loading shoe large See Rx Instructions .Route .MEDSUPPLY Qty: 1 0RF Rx Instructions: As directed (DME) Xeroform Petrolatum Dressing 1 X 8 bandage See Rx Instructions .ROUTE .MEDSUPPLY Qty: 200 0RF Rx Instructions: apply to foot wound daily (DME) adhesive tape 2 X 10 -yard tape See Rx Instructions .ROUTE .MEDSUPPLY Qty: 1 3RF Rx Instructions: apply to foot wound daily (DME) prosthetic Kit See Rx Instructions .Route Qty: 1 0RF Rx Instructions: As directed (DME) Bedside commode See Rx Instructions .Route .MEDSUPPLY Qty: 1 0RF Rx Instructions: As directed (DME) Shower Chair See Rx Instructions .Route .MEDSUPPLY Qty: 1 0RF Rx Instructions: As directed (DME) Walker See Rx Instructions .Route .MEDSUPPLY Qty: 1 0RF Rx Instructions: As directed amitriptyline 50 mg Tablet 50 mg PO BEDTIME diltiazem HCl 180 mg Capsule,Extended Release 24 Hr 180 mg PO DAILY methadone 10 mg/mL Concentrate 80 mg PO DAILY Rx Instructions: [facility] insulin glargine [Lantus U-100 Insulin] 100 unit/mL solution 40 unit subcut BID (DME) Wheel chair Kit See Rx Instructions .Route Qty: 1 0RF Rx Instructions: As directed (DME) FreeStyle Lite Strips Strip See Rx Instructions Not Applicable TID Qty: 10 Rx Instructions: As directed (DME) insulin syringe-needle U-100 [BD Insulin Syringe Ultra-Fine] 1 mL 31 gauge x 5/16 syringe See Rx Instructions .ROUTE DAILY Qty: 10 Rx Instructions: As directed (DME) Band-Aid Rolled Gauze 4 X 2.5 -yard bandage See Rx Instructions .ROUTE .MEDSUPPLY Qty: 30 3RF Rx Instructions: apply to foot wound daily (DME) Band-Aid Gauze Pads 3 X 3 bandage See Rx Instructions .ROUTE .MEDSUPPLY Qty: 25 3RF Rx Instructions: apply to foot wound daily Discharge Orders: Discharge Order (Routine); Ordered 08/07/24 Ordered By: Ben Cheatham Diet: Diabetic diet Activity on Discharge: As tolerated Stand Alone Forms: Patient Portal Discharge page Print Language: Vietnamese Care Plan Goals: recovery Health Concerns: dfu/om Plan of Treatment: wet to dry dressing daily, follow up surgery Assessment: see above
--- NOTE | 2024-08-07 09:47 | P.F2F_ITS ---
Service Date Service Date: 08/07/24 Encounter Date of encounter: 08/07/24 Reasons for Services Signs and symptoms assessed: Difficulty ambulating due to recent surgery Reason for intermediate: wound care (Wet-to-dry dressing), medication management, medication treatment and teach disease management Homebound: Leaving the home is medically contraindicated at this time without the asist of a device and/or another person due th the listed conditions above and below. Reason homebound: unsteady gait / fall risk Certification: Based on the above findings, I certify that this patient is confined to the home and needs intermittent intermediate care, physical therapy and/or speech therapy, or continues to need occupational therapy. The patient is under my care, and I have initiated the establishment of the plan of care. The patient will be followed by a physician who will periodically review the plan of care. Time Spent With Patient Time: Total time managing care of this patient today ____ minutes.
[2024-08-07 11:07] LABS: Glucose, Whole Blood 218 mg/dL (60-115)
--- NOTE | 2024-08-07 11:19 | MHC.CM.PN ---
Addendum entered by Oxana Ballesteros 08/09/24 08:46: [employer] RESPONDED TO REFERRAL ON 08/08/24 AT 13:56 INDICATING THEY WOULD ACCEPT CM CALLED PT AT HOME [phone] AND INFORM HIM Addendum entered by Oxana Ballesteros 08/07/24 16:09: PT IS AWARE ALL VNAS HAVE DECLINED DUE TO LACK OF AVAILABILITY PT STATES HE THINKS HE CAN MANAGE AND IS AWARE RN WILL REVIEW DRESSING WITH HIM AGAIN AND PROVIDE SUPPLIES PT WILL DC VIA BLS TRANSPORT BOOKED WITH EVELINE AT 1700 HOURS Addendum entered by Oxana Ballesteros 08/07/24 12:59: CM MET WITH PT AGAIN TO DISCUSS DC PLANS PT IS AWARE THERE ARE NO VNAS OFFERING SERVICES AT THIS TIME HE WILL CONTINUE TO TRY TO REACH HIS DAUGHTER SO SHE CAN COME IN FOR TEACHING RN IS AWARE PT WILL NEED TO BE SENT WITH SUPPLIES. PT UNSURE WHO HE WILL GET HOME, HOWEVER WOULD LIKE TO STAY A LITTLE LONGER TO SEE IF HE CAN REACH HIS DAUGHTER PT CONFIRMS HE WILL DC TO HIS MOTHERS HOME Original Note: CM MET WITH PT TO DISCUSS DC PLAN PT IS AWARE VNA HAS BEEN ORDERED, HOWEVER THERE ARE NO ACCEPTING AGENCIES AT THIS TIME PT AWARE THERE ARE FEW VNAS CONTRACTED WITH HIS INSURANCE HE REPORTS HIS DAUGHTER COULD ASSIST IF NECESSARY PER DISCUSSION, PT WILL WAIT UNTIL THE REST OF THE VNAS RESPOND, THREE AGENCIES HAVE YET TO REPLY TO REFERRAL
--- NOTE | 2024-08-07 12:19 | PC.NURSE ---
PICC line removed by sulaiman Carey CDI
--- NOTE | 2024-08-07 13:58 | HO.POSTANES ---
Post Anesthesia Evaluation Post Anesthesia Evaluation Date of Service: 08/07/24 Vital Signs: Vital Signs Temp Pulse Resp BP Pulse Ox O2 Del Method 08/07/24 09:19 66 164/80 H 08/07/24 07:24 97.5 F 66 16 158/78 H 98 Room Air 08/07/24 03:44 97.3 F 57 18 150/62 H 98 Room Air Anesthesia: Regional and General LMA Mental Status: Awake Pain Control: Satisfactory Nausea/Vomiting: None Hydration: Adequate Anesthesia-Related Issues: No Anes. Related Issues
[2024-08-07 14:41] VITALS: O2SAT 97
[2024-08-07 15:33] VITALS: BP 158/68; PULSE 77; RESP 18; TEMP 36.9; O2SAT 98
[2024-08-07 16:22] LABS: Glucose, Whole Blood 147 mg/dL (60-115)
--- NOTE | 2024-08-07 17:09 | PC.NURSE ---
BAKARI Arias explained drsg changes to patient and patient sister,discharge instructions explained to patient by BAKARI Arias also
--- NOTE | 2024-08-07 20:31 | PC.NURSE ---
Ambulance running late daughter came to bring pt home.Pt wheeled to front door.
== END 2024-08-07 20:20 | disposition home health service (06) | DRG 314 ==
LOC: HO.ED 13:21 → HO.EDOVER 14:14 → HO.S3 16:35
PROVIDERS: Physician Assistant; Student in an Organized Health Care Education/Training Program; Surgery; Admitting Provider Student in an Organized Health Care Education/Training Program; Emergency Provider Emergency Medicine; PCP Internal Medicine; Visit Provider Internal Medicine
PROC: 0Y6Y0Z0 Detachment at Left 5th Toe, Complete, Open Approach (ICD-10-PCS; CPT 28805; principal; 2024-08-06 13:30)
DX: T87.44 Infection of amputation stump, left lower extremity (principal); M86.172 Other acute osteomyelitis, left ankle and foot; D63.8 Anemia in other chronic diseases classified elsewhere; L03.116 Cellulitis of left lower limb; E11.51 Type 2 diabetes mellitus with diabetic peripheral angiopathy without gangrene; L97.429 Non-pressure chronic ulcer of left heel and midfoot with unspecified severity; I10 Essential (primary) hypertension; G89.29 Other chronic pain; G89.18 Other acute postprocedural pain; Z99.3 Dependence on wheelchair; I48.0 Paroxysmal atrial fibrillation; F11.20 Opioid dependence, uncomplicated; Z59.01 Sheltered homelessness; F17.210 Nicotine dependence, cigarettes, uncomplicated; Z89.511 Acquired absence of right leg below knee; Z71.6 Tobacco abuse counseling; Z79.4 Long term (current) use of insulin; Z79.899 Other long term (current) drug therapy
CPT/HCPCS: 36415; 73630; 73718; 80048; 80053; 82947; 83540; 83605; 83735; 85025; 85027; 85652; 86140; 87040; 88304; 88311; 99285; J1100; J1644; J2250; J2405; J2543; J2704; J2795; J3010

== ENCOUNTER → 2024-08-02 14:00 | Outpatient (BNV) | payer OTHER, SELFPAY | PROVIDERS: Admitting Provider Student in an Organized Health Care Education/Training Program; Emergency Provider Emergency Medicine; PCP Internal Medicine; Visit Provider Student in an Organized Health Care Education/Training Program | DX: M86.172 Other acute osteomyelitis, left ankle and foot (principal) | CPT/HCPCS: 99223; 99232; 99239; G0180 ==

== ENCOUNTER → 2024-08-02 14:00 | Outpatient (BNV) | payer OTHER, SELFPAY | PROVIDERS: Admitting Provider Student in an Organized Health Care Education/Training Program; Emergency Provider Emergency Medicine; PCP Internal Medicine; Visit Provider Surgery | DX: M86.471 Chronic osteomyelitis with draining sinus, right ankle and foot (principal) | CPT/HCPCS: 11042; 28810; 99024; 99222; 99232; 99499 ==

== ENCOUNTER 2024-09-21 09:59 | Inpatient (IN) | payer OTHER, SELFPAY ==
--- NOTE | ~2024-09-21 | XR_ITS ---
EXAMINATION: XR FOOT, LEFT CLINICAL INFORMATION: Dehiscence lateral side COMPARISON: Left foot radiograph 08/02/2024 and MR left foot 08/03/2024. TECHNIQUE: AP, lateral, and oblique views of the left foot. 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 At the time of the prior study, the partially amputated fifth metatarsal was still present however on the current study this is no longer seen. There is marked soft tissue swelling seen around the distal foot similar to prior. There is some calcific osseous density seen in the region of the previously seen fifth metatarsal which was probably present previously. There is a depression in the soft tissues at the base of the foot which may be secondary to an ulceration or dehisced wound (please correlate with physical exam). No new gross bone destruction or fracture is seen. XR/XR foot LT min 3V IMPRESSION: 1. Status post transmetatarsal amputation of the first through fourth digits. 2. Interval amputation of the fifth metatarsal. 3. Marked soft tissue swelling around the distal foot with a depression in the soft tissues at the base of the foot which may be secondary to an ulceration or dehisced wound (please correlate with physical exam). Electronically signed by: Arvind Mason MD 09/21/2024 03:26 PM ИВАН
[2024-09-21 10:42] VITALS: BP 172/71; PULSE 83; RESP 20; TEMP 37; O2SAT 97; BMI 39.1
--- NOTE | 2024-09-21 12:52 | ED_ITS ---
HPI - General Adult General Chief complaint: Skin/Abscess/Foreign Body Stated complaint: foot swelling Time Seen by Provider: 09/21/24 12:52 History of Present Illness ED Provider: Yefri DIOR narrative: The patient is a 63-year-old male with a history of diabetes and peripheral vascular disease. He had a right deupr-xmu-qtqt amputation in September of 2023. He also has a history of osteomyelitis in the left foot, thrombotic microangiopathy, atrial fibrillation not on anticoagulation, hepatitis-C status post treatment in 2009. He is chronically wheelchair-bound. He has a right leg prosthesis. The patient was hospitalized in June of this year and again in July of this year because of osteomyelitis of the left foot. During his July hospitalization he had surgery by Dr. Graves. This was a revision of the transmetatarsal amputation stump of the left foot with resection of the remaining 5th metatarsal at the tarsometatarsal joint. He was discharged from the hospital on August 07. He lives at home with his family. I do not believe that he has been seen in follow up since his discharge. He presents today because he feels that the wound at the site of the surgery has become increasingly painful over the last week or 2 and he has never had his sutures removed. The patient's chief complaint is his pain in the foot and his concern about the health of the wound. He says he has not had any fever, sweats or chills. The patient has a history of substance use disorder and is on methadone. Related Data Home Medications ?Medication ?Instructions ?Recorded ?Confirmed amitriptyline 50 mg tablet 50 mg PO BEDTIME PRN Depression 12/09/20 09/21/24 blood sugar diagnostic (FreeStyle #10 ea 03/08/22 06/21/24 Lite Strips) insulin syringe-needle U-100 1 mL #10 ea 03/08/22 10/28/23 31 gauge x 5/16 (BD Insulin Syringe Ultra-Fine) diltiazem HCl 180 mg capsule,24 180 mg PO DAILY 04/09/24 09/21/24 hr,extended release methadone 10 mg/mL oral concentrate 80 mg PO DAILY 04/10/24 08/03/24 insulin glargine 100 unit/mL 40 unit subcut DAILY 06/21/24 09/21/24 subcutaneous solution (Lantus U-100 Insulin) Previous Rx's ?Medication ?Instructions ?Recorded Off loading shoe #1 ea 12/28/20 bismuth tribrom-petrolatum,wh 1 X #200 ea 02/21/21 8 bandage (Xeroform Petrolatum Dressing) adhesive tape 2 X 10 yard #1 ea 06/16/21 prosthetics (prosthetic) #1 ea 06/16/21 chair, wheel (Wheel chair) #1 ea 03/12/23 Bedside commode #1 ea 04/18/23 Shower Chair #1 ea 04/18/23 Walker #1 ea 05/06/23 gauze bandage 3 X 3 (Band-Aid #25 ea 09/24/23 Gauze Pads) gauze bandage 4 X 2.5 yard #30 ea 09/24/23 (Band-Aid Rolled Gauze) Allergies Allergy/AdvReac Type Severity Reaction Status Date / Time furosemide [Lasix] Allergy Intermediate Hives Verified 09/21/24 10:44 levofloxacin [Levaquin] Allergy Unknown Gastrointestinal Verified 09/21/24 10:44 Upset metronidazole [Flagyl] Allergy Unknown Unknown Verified 09/21/24 10:44 latex Allergy Rash Verified 09/21/24 10:44 contrast dye Allergy Unknown rash, hives Uncoded 09/21/24 10:44 Review of Systems 2 Review of Systems: Yes all other systems are reviewed and are negative [facility] Past Medical History Medical History (Updated 09/21/24 @ 16:05 by Ronald Asif MD) Open wound Hx of hepatitis Diabetic ulcer of right foot Atrial fibrillation Hypertension Diabetes Surgical History 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 History of transmetatarsal amputation of foot (~09/2016) History of amputation of toe (~08/18/14) History of amputation of toe (~10/21/13) History of lipoma Family History Family History Father History of lung cancer Mother History of diabetes mellitus Social History Social History Household Members: Family Household Members Other:: mother Housing: Apartment Housing Other:: patient is homeless, couch surfing with friends/family Are you a primary career information specialist to a significant other at home: No Do you presently have visiting nurse or other home services: No Alcohol intake: never Patient Tobacco Use Status: Current everyday Tobacco user Tobacco use type: Cigarette Cigarettes Per Day: 6 Years Smoked: 49 Smoked in Last 30 Days: Yes Second Hand Smoke Exposure: Yes Use of substances other than those prescribed or required for medical reasons: No Substance Use Type: Crack/Cocaine Advance Directives: Yes Advance Directives on File: Yes Advance Directives Date on File: 04/28/24 Do you have a plan to hurt others: No Plan service: No Physical Exam ED Vital Signs: Vital Signs - 24 hr 09/21/24 10:42 09/21/24 12:53 09/21/24 14:57 Temperature 98.6 F 98.7 F 98.8 F Pulse Rate 83 94 61 Respiratory Rate 20 16 20 Blood Pressure 172/71 H 166/75 H 158/50 H Pulse Oximetry 97 94 97 Oxygen Delivery Method Room Air Room Air Room Air BMI result Body Mass Index 39.1 Const Other: The patient is a chronically ill-appearing 63-year-old man. He is awake and alert. He looks quite chronically ill and pale but not acutely toxic. HENMT Other: Face is symmetrical. Mucous membranes moist. Eyes General: appearance normal, both eyes and all related structures Neck Neck: Yes no JVD Resp Effort & Inspection: normal respiratory effort Cardio Rate: regular rate Rhythm: regular rhythm Heart sounds: S1 normal heart sound present and S2 normal heart sound present GI Other: Abdomen is soft and nontender Skin Other: The patient has a large wound on the lateral aspect of the foot. There were several sutures across the wound which were intact but which were not holding any tissues together. There is some mild erythema to the dorsum of the foot. There is an area of excoriation to the skin of the left mid fenton. Neuro Other: The patient is awake and alert with a normal mental status. Cranial nerves are grossly intact. He seems to be able to move his extremities with normal motor function. Seems to have decreased sensation in the left foot. Extrem Other: The patient has a right vawkn-lob-izhi amputation. On the left foot there is a partial amputation of the left foot. There is a large open wound related to a surgery almost 2 months ago. There were sutures across the wound which seemed loose but intact. Foot is warm with some possible erythema to the dorsum of the foot. Medications Administered Generic Name Dose Route Start Last Admin Trade Name Freq PRN Reason Stop Dose Admin Enoxaparin Sodium 40 mg 09/21/24 18:00 09/21/24 19:51 Enoxaparin Sodium 40 Mg/0.4 Ml Syringe SUBCUT 40 mg Q24H LYNNETTE Administration Piperacillin Sod/Tazobactam 50 mls @ 100 mls/hr 09/21/24 18:00 09/21/24 20:42 Sod 3.375 gm/ Sodium Chloride IV Infused Q6H LYNNETTE Infusion Insulin Human Lispro 0 unit 09/21/24 21:00 09/21/24 21:20 Insulin Lispro 100 Unit/Ml 3 Ml Vial SUBCUT 2 unit QIDACHS LYNNETTE Administration Protocol Morphine Sulfate 2 mg 09/21/24 17:19 09/21/24 21:22 Morphine Sulfate 4 Mg/Ml Cartridge IVPUSH 2 mg Q6H PRN Administration Pain, Severe (Pain Scale 7-10) Protocol Discontinued Medications Generic Name Dose Route Start Last Admin Trade Name Freq PRN Reason Stop Dose Admin Vancomycin HCl 2,000 mg in 500 mls @ 250 mls/hr 09/21/24 16:11 09/21/24 22:15 Vancomycin/Ns IV 09/21/24 18:10 Infused ONCE ONE Infusion Medical Decision Making Medical Decision Making [facility] Narrative: The patient is a 63-year-old male with diabetes who presents with worsening pain in his left foot. He has a large wound on the left foot following a revision of a partial amputation surgery a month and a half and a go. He has had a previous right sided gotqs-hgc-ludk amputation. The patient has not been seen in follow up. He still had stitches intact which I removed. He has an elevated white count and high ESR. Although his x-ray was not read as showing any definite signs of osteomyelitis I would still be concerned about the possibility of osteomyelitis given his worsening pain over the last 3 days. The patient will be started on antibiotics and admitted for further care and an MRI. Lab Data 09/21/24 13:48 09/21/24 13:48 Labs: Lab Results 09/21/24 09/21/24 Range/Units 13:47 13:48 WBC 13.6 H (4.8-10.8) X10*3/uL RBC 3.85 L (4.60-5.80) X10*6/uL Hgb 9.6 L (14.0-18.0) g/dl Hct 31.1 L (42.0-52.0) % MCV 80.8 (80.0-98.0) fL MCH 24.9 L (27.0-33.0) pg MCHC 30.9 L (31.0-36.0) g/dl RDW 15.3 (11.0-16.0) % Plt Count 397 (160-400) X10*3/uL MPV 9.1 L (9.4-12.4) fL Immature Gran % (Auto) 0.4 (0.0-0.4) % Neut % (Auto) 74.1 H (45-73) % Lymph % (Auto) 18.4 L (20-40) % [place] % (Auto) 5.4 (2-11) % Eos % (Auto) 1.5 (0-4) % Baso % (Auto) 0.2 (0-2) % Lymph # (Auto) 2.5 (1.2-4.9) X10*3/uL [place] # (Auto) 0.7 (0.1-1.2) X10*3/uL Eos # (Auto) 0.2 (0.0-0.4) X10*3/uL Baso # (Auto) 0.0 (0.0-0.2) X10*3/uL Abs Immat Gran (auto) 0.05 H (0.00-0.03) X10*3/uL Absolute Neuts (auto) 10.1 H (2.0-8.3) x10*3/uL Absolute Nucleated RBC 0.000 (0.0-0.012) X10*3/uL Nucleated RBC % (auto) 0.0 (0.0-0.2) /100WBC ESR 93 H (0-15) MM/HR Sodium 140 (135-145) mmol/L Potassium 4.3 (3.3-5.1) mmol/L Chloride 103 (96-108) mmol/L Carbon Dioxide 29 (22-29) mmol/L Anion Gap 12 (12-20) BUN 13 (9-16) mg/dL Creatinine 0.91 (0.5-1.4) mg/dL Estim Creat Clear Calc 94.6 Estimated GFR > 60 Random Glucose 87 (60-115) mg/dL Lactic Acid 1.9 (0.5-2.0) mmol/L Calcium 9.1 (8.4-10.2) mg/dL Magnesium 1.9 (1.6-2.6) mg/dL Total Bilirubin 0.2 (0.0-1.0) mg/dL Direct Bilirubin < 0.2 (0.0-0.5) mg/dL AST 14 (5-37) U/L ALT < 6 (0-40) U/L Alkaline Phosphatase 82 (39-117) U/L C-Reactive Protein 3.68 H (< or = 0.50) mg/dL Total Protein 8.8 H (6.5-8.0) g/dL Albumin 3.5 (3.5-5.0) g/dL Discharge Plan Discharge Clinical Impression: Diabetic infection of left foot Patient Disposition: Admitted As Inpatient
[2024-09-21 12:53] VITALS: BP 166/75; PULSE 94; RESP 16; TEMP 37.1; O2SAT 94
--- NOTE | 2024-09-21 13:01 | PC.NURSE ---
Pt comes to ED today with c/o pain 07/21 top LLE LLE presents with all toes amputated--sutures noted lateral aspect. Pt reports yesterday L fenton had a large blister that popped leaking clear fluid. Large circular open wound to L fenton. Wound with no measurable depth, wound bed is raw pink. VSS, afebrile, A&Ox3
--- NOTE | 2024-09-21 13:03 | ECG_ITS ---
Test Reason : weakness Blood Pressure : / mmHG Vent. Rate : 063 BPM Atrial Rate : 063 BPM P-R Int : 148 ms QRS Dur : 084 ms QT Int : 438 ms P-R-T Axes : 037 -04 034 degrees QTc Int : 448 ms Normal sinus rhythm Minimal voltage criteria for LVH, may be normal variant ( R in aVL ) Borderline ECG When compared with ECG of 03-MAR-2023 17:28, No significant change was found Referred By: Ronald Asif Electronically Signed By:Rusty Simpson
[2024-09-21 13:53] LABS: MANUAL DIFF FLAG NO
[2024-09-21 13:55] LABS: Basophils Percent Auto 0.2 % (0-2); Eosinophils Absolute Auto 0.2 X10*3/uL (0.0-0.4); Eosinophils Percent Auto 1.5 % (0-4); Hematocrit 31.1 % (42.0-52.0); Hemoglobin 9.6 g/dl (14.0-18.0); Imm Gran Abs Auto 0.05 X10*3/uL (0.00-0.03); Imm Gran Pct Auto 0.4 % (0.0-0.4); Lymphocytes Absolute Auto 2.5 X10*3/uL (1.2-4.9); Lymphocytes Percent Auto 18.4 % (20-40); Mean Corpuscular HGB Conc 30.9 g/dl (31.0-36.0); Mean Corpuscular Hemoglobin 24.9 pg (27.0-33.0); Mean Corpuscular Volume 80.8 fL (80.0-98.0); Mean Platelet Volume 9.1 fL (9.4-12.4); Monocytes Absolute Auto 0.7 X10*3/uL (0.1-1.2); Monocytes Percent Auto 5.4 % (2-11); Neutrophils Absolute Auto 10.1 x10*3/uL (2.0-8.3); Neutrophils Percent Auto 74.1 % (45-73); Platelet Count 397 X10*3/uL (160-400); Red Blood Count 3.85 X10*6/uL (4.60-5.80); Red Cell Distribution Width 15.3 % (11.0-16.0); White Blood Count 13.6 X10*3/uL (4.8-10.8)
[2024-09-21 14:09] LABS: Lactic Acid 1.9 mmol/L (0.5-2.0)
[2024-09-21 14:25] LABS: Alanine Aminotransferase < 6 U/L (0-40); Albumin Level 3.5 g/dL (3.5-5.0); Alkaline Phosphatase 82 U/L (39-117); Anion Gap 12 (12-20); Aspartate Amino Transferase 14 U/L (5-37); Bilirubin Direct < 0.2 mg/dL (0.0-0.5); Bilirubin Total 0.2 mg/dL (0.0-1.0); Blood Urea Nitrogen 13 mg/dL (9-16); C Reactive Protein 3.68 mg/dL (< or = 0.50); Calcium 9.1 mg/dL (8.4-10.2); Carbon Dioxide 29 mmol/L (22-29); Chloride 103 mmol/L (96-108); Creatinine Clr Calc Pharmacy 94.6; Estimated Glomerular Filt Rate > 60; Glucose Random 87 mg/dL (60-115); Magnesium 1.9 mg/dL (1.6-2.6); Potassium 4.3 mmol/L (3.3-5.1); Sodium 140 mmol/L (135-145); Total Protein 8.8 g/dL (6.5-8.0)
[2024-09-21 14:32] LABS: Erythrocyte Sedimentation Rate 93 MM/HR (0-15)
[2024-09-21 14:57] VITALS: BP 158/50; PULSE 61; RESP 20; TEMP 37.1; O2SAT 97
--- NOTE | 2024-09-21 15:55 | P.CONGS_ITS ---
History of Present Illness Consult details Consult date: 09/21/24 Narrative: 63-year-old male here in the ER because of pain on his left foot . He has history of amputations the past. He has a history of transmetatarsal amputation of the left foot. He had undergone revision of this amputation site last July, with resection of the remaining distal metatarsal of the 5th toe because of cellulitis of this stump. He has not follow up in the office with me since then. He has had this residual open wound. He complains of chronic pain on the area. He is a known diabetic and has peripheral vascular disease. He seems to be poorly compliant. Review of Systems 2 Constitutional: Constitutional: Denies chills and Denies fever(s) Cardiovascular: Cardiovascular: Denies chest pain and Denies chest pain at rest Respiratory: Respiratory: Denies cough Gastrointestinal: Gastrointestinal: Denies abdominal pain Genitourinary: Genitourinary: Denies difficulty urinating Musculoskeletal: Comments: Left foot pain PMFSH Past Medical History Medical History (Updated 09/21/24 @ 16:05 by Ronald Asif MD) Open wound Hx of hepatitis Diabetic ulcer of right foot Atrial fibrillation Hypertension Diabetes Family History Family History Father History of lung cancer Mother History of diabetes mellitus Surgical History Surgical History 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 History of transmetatarsal amputation of foot (~09/2016) History of amputation of toe (~08/18/14) History of amputation of toe (~10/21/13) History of lipoma Social History Social History Household Members: Family Household Members Other:: mother Housing: Apartment Housing Other:: patient is homeless, couch surfing with friends/family Are you a primary assisted living care manager to a significant other at home: No Do you presently have visiting nurse or other home services: No Alcohol intake: never Patient Tobacco Use Status: Current everyday Tobacco user Tobacco use type: Cigarette Cigarettes Per Day: 4 Years Smoked: 49 Smoked in Last 30 Days: Yes Patient Interested in Nicotine Replacement: Yes Patient Given Instructions on How to Stop Smoking: Yes Date Education Initiated: 09/22/24 Second Hand Smoke Exposure: Yes Use of substances other than those prescribed or required for medical reasons: No Substance Use Type: Crack/Cocaine Currently Displaying Signs/Symptoms of Drug Intoxication Withdrawal: No Any prior treatment program specific to substance use: No Have you been hit, kicked, punched, or otherwise hurt by someone within the past year? If so, by whom?: No Do you feel safe in your current relationship?: No Current Relationship Is there a partner from a previous relationship who is making you feel unsafe now?: No Are you made to feel afraid or neglected: No Advance Directives: Yes Advance Directives Information Provided: No Advance Directives on File: Yes Advance Directives Date on File: 04/28/24 Do you have a plan to hurt others: No Plan Recently lost weight without trying: No Eating poorly because of decreased appetite: No Nutrition Risks: No Nutritional Risk Poor oral hygiene: No service: No Meds Allergies Allergy/AdvReac Type Severity Reaction Status Date / Time furosemide [Lasix] Allergy Intermediate Hives Verified 09/21/24 10:44 levofloxacin [Levaquin] Allergy Unknown Gastrointestinal Verified 09/21/24 10:44 Upset metronidazole [Flagyl] Allergy Unknown Unknown Verified 09/21/24 10:44 latex Allergy Rash Verified 09/21/24 10:44 contrast dye Allergy Unknown rash, hives Uncoded 09/21/24 10:44 Home Medications ?Medication ?Instructions ?Recorded ?Confirmed ?Last Taken ?Type amitriptyline 50 mg tablet 50 mg PO BEDTIME PRN Depression 12/09/20 09/21/24 06/20/24 History blood sugar diagnostic (FreeStyle #10 ea 03/08/22 06/21/24 Unknown History Lite Strips) insulin syringe-needle U-100 1 mL #10 ea 03/08/22 10/28/23 Unknown History 31 gauge x 5/16 (BD Insulin Syringe Ultra-Fine) diltiazem HCl 180 mg capsule,24 180 mg PO DAILY 04/09/24 09/21/24 09/21/24 History hr,extended release methadone 10 mg/mL oral concentrate 80 mg PO DAILY 04/10/24 08/03/24 08/02/24 08:00 History insulin glargine 100 unit/mL 40 unit subcut DAILY 06/21/24 09/21/24 09/21/24 History subcutaneous solution (Lantus U-100 Insulin) Physical Exam 2 Vital Signs: Vital Signs: Last Vital Signs Temp 98.8 F 09/21/24 14:57 Pulse 61 09/21/24 14:57 Resp 20 09/21/24 14:57 BP 158/50 H 09/21/24 14:57 Pulse Ox 97 09/21/24 14:57 O2 Del Method Room Air 09/21/24 14:57 BMI result Body Mass Index 39.1 Results Labs 09/21/24 13:48 09/21/24 13:48 Labs: Abnormal lab results 09/21/24 Range/Units 13:48 WBC 13.6 H (4.8-10.8) X10*3/uL RBC 3.85 L (4.60-5.80) X10*6/uL Hgb 9.6 L (14.0-18.0) g/dl Hct 31.1 L (42.0-52.0) % MCH 24.9 L (27.0-33.0) pg MCHC 30.9 L (31.0-36.0) g/dl MPV 9.1 L (9.4-12.4) fL Neut % (Auto) 74.1 H (45-73) % Lymph % (Auto) 18.4 L (20-40) % Abs Immat Gran (auto) 0.05 H (0.00-0.03) X10*3/uL Absolute Neuts (auto) 10.1 H (2.0-8.3) x10*3/uL ESR 93 H (0-15) MM/HR C-Reactive Protein 3.68 H (< or = 0.50) mg/dL Total Protein 8.8 H (6.5-8.0) g/dL Short CBC 09/21/24 Range/Units 13:48 WBC 13.6 H (4.8-10.8) X10*3/uL Hgb 9.6 L (14.0-18.0) g/dl Hct 31.1 L (42.0-52.0) % Plt Count 397 (160-400) X10*3/uL BMP 09/21/24 13:48 Sodium 140 Potassium 4.3 Chloride 103 Carbon Dioxide 29 BUN 13 Creatinine 0.91 Calcium 9.1 Liver Function 09/21/24 Range/Units 13:48 Total Bilirubin 0.2 (0.0-1.0) mg/dL Direct Bilirubin < 0.2 (0.0-0.5) mg/dL AST 14 (5-37) U/L ALT < 6 (0-40) U/L Alkaline Phosphatase 82 (39-117) U/L Albumin 3.5 (3.5-5.0) g/dL All other labs normal. Assessment and Plan (1) Open wound: Status: Acute He has an open wound in the previous revision of amputation site in the left foot. This appears clean with good healthy granulation. There is no necrotic or gangrenous tissue There is no significant cellulitis. There is no bone exposed I would recommended good wound care with daily dressing changes. We can do silver alginate for now. He seems to be very poorly compliant. I will follow along while he is in the hospital. It does not appear that he will need debridement for now. Procedures Date of Service Date of Service: 09/22/24
--- NOTE | 2024-09-21 16:53 | P.HPHOSP_ITS ---
History of Present Illness Date of Service: 09/21/24 Chief Complaint: Diabetic foot ulcer 63-year-old male with a history of PVD, 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 His medical history also includes hypertension, hepatitis C (treated in 2009), and chronic wheelchair use. In July, he underwent revision of the transmetatarsal amputation stump with resection of the remaining 5th metatarsal at the tarsometatarsal joint. It is unclear if he has followed up with surgery since then, as sutures were still in place and removed in the ED. He reports increasing foot pain. While the wound does not appear grossly infected externally, his lab results show WBC 13, ESR 93, and CRP >3, raising concern for a deep infection. Review of Systems 2 Review of Systems: Gen: no fever Resp: no sob, no cough CV: no chest, no EVANS, no leg edema GI: No n/v, no abd pain Neuro: No confusion [facility] Medical History (Updated 09/21/24 @ 16:05 by Ronald Asif MD) Open wound Hx of hepatitis Diabetic ulcer of right foot Atrial fibrillation Hypertension Diabetes Family History Father History of lung cancer Mother History of diabetes mellitus Surgical History 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 History of transmetatarsal amputation of foot (~09/2016) History of amputation of toe (~08/18/14) History of amputation of toe (~10/21/13) History of lipoma Social History Household Members: Family Household Members Other:: mother Housing: Apartment Housing Other:: patient is homeless, couch surfing with friends/family Are you a primary primary care nurse practitioner to a significant other at home: No Do you presently have visiting nurse or other home services: No Alcohol intake: never Patient Tobacco Use Status: Current everyday Tobacco user Tobacco use type: Cigarette Cigarettes Per Day: 6 Years Smoked: 49 Smoked in Last 30 Days: Yes Second Hand Smoke Exposure: Yes Use of substances other than those prescribed or required for medical reasons: No Substance Use Type: Crack/Cocaine Advance Directives: Yes Advance Directives on File: Yes Advance Directives Date on File: 04/28/24 Do you have a plan to hurt others: No Plan service: No Meds Allergies Allergy/AdvReac Type Severity Reaction Status Date / Time furosemide [Lasix] Allergy Intermediate Hives Verified 09/21/24 10:44 levofloxacin [Levaquin] Allergy Unknown Gastrointestinal Verified 09/21/24 10:44 Upset metronidazole [Flagyl] Allergy Unknown Unknown Verified 09/21/24 10:44 latex Allergy Rash Verified 09/21/24 10:44 contrast dye Allergy Unknown rash, hives Uncoded 09/21/24 10:44 Active Medications: Current Medications Vancomycin HCl (Vancomycin/Ns) 2,000 mg in 500 mls @ 250 mls/hr IV ONCE ONE Stop: 09/21/24 18:10 Home Medications ?Medication ?Instructions ?Recorded ?Confirmed ?Last Taken ?Type amitriptyline 50 mg tablet 50 mg PO BEDTIME 12/09/20 08/02/24 06/20/24 History blood sugar diagnostic (FreeStyle #10 ea 03/08/22 06/21/24 Unknown History Lite Strips) insulin syringe-needle U-100 1 mL #10 ea 03/08/22 10/28/23 Unknown History 31 gauge x 5/16 (BD Insulin Syringe Ultra-Fine) diltiazem HCl 180 mg capsule,24 180 mg PO DAILY 04/09/24 08/02/24 08/02/24 09:00 History hr,extended release methadone 10 mg/mL oral concentrate 80 mg PO DAILY 04/10/24 08/03/24 08/02/24 08:00 History insulin glargine 100 unit/mL 40 unit subcut BID 06/21/24 08/02/24 08/02/24 09:00 History subcutaneous solution (Lantus U-100 Insulin) Physical Exam 2 Vital Signs and Narrative: Vital Signs: Last Vital Signs Temp 98.8 F 09/21/24 14:57 Pulse 61 09/21/24 14:57 Resp 20 09/21/24 14:57 BP 158/50 H 09/21/24 14:57 Pulse Ox 97 09/21/24 14:57 O2 Del Method Room Air 09/21/24 14:57 BMI result Body Mass Index 39.1 Const: Other: General: AO X 3, no acute distress Resp: CTA bilateral CVS: S1,S2,RRR GI: +BS, NT, no distention Skin: Neuro: motor grossly intact Psych: appropriate affect Results Labs 09/21/24 13:48 09/21/24 13:48 Labs: Laboratory Results - last 24 hr 09/21/24 09/21/24 13:47 13:48 MCV 80.8 MCH 24.9 L MCHC 30.9 L RDW 15.3 Plt Count 397 MPV 9.1 L Immature Gran % (Auto) 0.4 Neut % (Auto) 74.1 H Lymph % (Auto) 18.4 L [place] % (Auto) 5.4 Eos % (Auto) 1.5 Baso % (Auto) 0.2 Lymph # (Auto) 2.5 [place] # (Auto) 0.7 Eos # (Auto) 0.2 Baso # (Auto) 0.0 Abs Immat Gran (auto) 0.05 H Absolute Neuts (auto) 10.1 H Absolute Nucleated RBC 0.000 Nucleated RBC % (auto) 0.0 ESR 93 H Anion Gap 12 Estim Creat Clear Calc 94.6 Estimated GFR > 60 Random Glucose 87 Lactic Acid 1.9 Calcium 9.1 Magnesium 1.9 Total Bilirubin 0.2 Direct Bilirubin < 0.2 AST 14 ALT < 6 Alkaline Phosphatase 82 C-Reactive Protein 3.68 H Total Protein 8.8 H Albumin 3.5 Imaging Radiologist's Impressions: Impressions Foot X-Ray 09/21/24 13:10 IMPRESSION: 1. Status post transmetatarsal amputation of the first through fourth digits. 2. Interval amputation of the fifth metatarsal. 3. Marked soft tissue swelling around the distal foot with a depression in the soft tissues at the base of the foot which may be secondary to an ulceration or dehisced wound (please correlate with physical exam). Electronically signed by: Arvind Mason MD 09/21/2024 03:26 PM [facility] Assessment and Plan (1) Diabetic foot infection: Status: Resolved (2) Cellulitis: Qualifiers: Site of cellulitis: extremity Site of cellulitis of extremity: lower extremity Laterality: left Qualified Code(s): L03.116 - Cellulitis of left lower limb Status: Resolved Plan 63-year-old male with a history of PVD, 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 His medical history also includes hypertension, hepatitis C (treated in 2009), and chronic wheelchair use. In July, he underwent revision of the transmetatarsal amputation stump with resection of the remaining 5th metatarsal at the tarsometatarsal joint. It is unclear if he has followed up with surgery since then, as sutures were still in place and removed in the ED. He reports increasing foot pain. While the wound does not appear grossly infected externally, his lab results show WBC 13, ESR 93, and CRP >3, raising concern for a deep infection. Cellulitis of chronic non healing diabetic left foot ulcer -MRI to rule deep infection and steo -Broad spec abx Insulin-dependent type 2 diabetes Sliding-scale insulin, Lantus Paroxysmal AFib Continue diltiazem Not on anticoagulation Opioid use disorder Continue methadone Chronic normocytic anemia Stable, at baseline Full Code DVT Prophylaxis: lovenox Pt will require a hospitalization of at least two nights for treatment of worsening chronic diabetic foot infection with cellulitis concerning for osteomyelitis that has failed outpatient therapy. Patient will need administration of IV antibiotics and surgical consultation for likely amputation. Quality VTE Prior VTE?: No VTE Risk Level:: Medical - moderate - high VTE Device Contraindication: Treatment Not Indicated VTE Drug Contraindication: N/A - Med Ordered
--- NOTE | 2024-09-21 17:15 | PC.NURSE ---
Pt is a difficult stick. Unable to obtain IV access after 3 attempts. Will seek out assistance.
--- NOTE | 2024-09-21 18:25 | PC.NURSE ---
Pt off unit for MRI at 5:47p. Pt returns to unit shortly after and this RN is notified by Branden in MRI that Pt refused and was notified.
--- NOTE | 2024-09-21 19:07 | PC.NURSE ---
ERIC Zuluaga attempts to gain IV access with no success. Dr. Asif made aware and advises that BAKARI Pacheco will attempt, if no success plan for u/s guided access to be attempted by BAKARI Hughes on overnight shift.
--- NOTE | 2024-09-21 19:07 | PC.NURSE ---
report received from Suzie Mcduffie RN, assume care of pt at this time
[2024-09-21 19:42] VITALS: BP 150/45; PULSE 66; RESP 18; TEMP 36.9; O2SAT 98
--- NOTE | 2024-09-21 19:46 | PHA.MEDREC ---
Addendum entered by Inez Bowman maria elena 09/21/24 20:24: Med rec reviewed by this [facility] Original Note: Pharmacy Consult ? Medication Reconciliation Pharmacy has completed the medication reconciliation. Spoke with patient and confirmed medications with him. He confirmed he is still taking the Amitriptyline 50mg tab as needed for depression. He confirmed his Lantus Solostar Inejciton and states he is doing it 40 units every morning instead of BID but could not recall when he started doing it once daily, he confirmed he took it this morning. He also confirmed he is taking the Methadone 80mg daily and states he gets it at a facility in [place] in the [facility] . He states he finished the Oxycodone regimen but doesn't remember when. He states he does not take the Losartan 50mg tabs anymore but states he still picks them up and has them at home. He confirmed he took his medications today.
[2024-09-21] MEDS: Piperacillin Sodium/Tazobactam 3.375 GM in 0.9 % Sodium Chloride 50 ML IV (19:48)
[2024-09-21] MEDS: Enoxaparin Sodium 40 MG/0.4 ML SYRINGE SUBCUT (19:51)
[2024-09-21] MEDS: vancomycin/NS 2,000 MG/500 ML PLAST..BAG 250 MG IV (19:52)
--- NOTE | 2024-09-21 20:09 | PHA.PROG ---
Admission Date/Time: September 21, 2024 17:19 Indication: Bone and Joint Weight in k.594 kg Adjusted body weight in K.53 kg [place] body weight in K.5 kg Obesity Dosing Indication % IBW: 173% Serum Creatinine - Last 168 Hours 09/21/24 13:48 Creatinine 0.91 Estimated CrCl and GFR - Last 168 Hours 09/21/24 13:48 Estim Creat Clear Calc 94.6 Estimated GFR > 60 Vancomycin Loading Dose: 2000 mg Current Vancomycin Dosing Regimen: 1250 mg Q12H Date and Time for next Vancomycin Level to be drawn: 09/23 @ 0600 Pharmacist Comments on Vancomycin Plan: Patient is receiving an adequate vancomycin load dose on 09/21 @ 1952 Maintenance dose vancomycin 1250 mg Q12H is schedule to start 09/22 @ 0800. Prediected AUC 527 with a trough of 17.1 Level will be drawn prior to the 4th dose Patient is morbidly obese therefore carefully monitor is required due to vancomycin's high volume of distribution Pharmacy will monitor renal function daily Inez Bowman PharmD Vancomycin dosing will take advantage of [employer] as a clinical decision support tool that uses Bayesian modeling to calculate individual patient's pharmacokinetic parameters and forecast the patient's drug concentration time course with the target goal AUC 24 range of 400 - 600 mg/L/hr.
[2024-09-21] MEDS: Insulin Lispro 100 UNIT/ML 3 ML VIAL SUBCUT (21:20)
[2024-09-21] MEDS: Morphine Sulfate 4 MG/ML CARTRIDGE 2 MG IVPUSH (21:22)
[2024-09-21 21:50] LABS: Glucose, Whole Blood 198 mg/dL (60-115)
--- NOTE | 2024-09-21 23:35 | PC.NURSE ---
Patient reported bloody drainage from his wound on both L foot and leg. Both sites had large open wounds, pink in color with some yellow/white areas, draining some pus-like fluid and small amount of blood. The wound was cleansed with normal saline, pat dry, and covered by xerofoam and dry gauze. The site was then wrapped lightly with GUIDO wrap to hold the dressing together. The leg was elevated in bed by a folded pillow.
[2024-09-22] VITALS: BP 184/81; PULSE 72; RESP 18; TEMP 36.5; O2SAT 100
[2024-09-22] MEDS: 0.9 % Sodium Chloride Flush 3 ML SYRINGE IVFLUSH ×3 (00:18→18:17)
[2024-09-22] MEDS: Piperacillin Sodium/Tazobactam 3.375 GM in 0.9 % Sodium Chloride 50 ML IV ×4 (00:18→18:16)
[2024-09-22 01:59] VITALS: BMI 33.1
[2024-09-22 07:33] VITALS: BP 190/87; PULSE 57; RESP 16; TEMP 36; O2SAT 99
[2024-09-22 08:03] LABS: Glucose, Whole Blood 112 mg/dL (60-115)
[2024-09-22] MEDS: dilTIAZem HCL CD 180 MG CAP.ER.24H PO (08:13)
[2024-09-22] MEDS: Insulin Glargine,Hum.rec.anlog 100 UNIT/ML 10 ML VIAL 40 UNIT SUBCUT (08:14)
[2024-09-22] MEDS: vancomycin HCL 1,250 MG in 0.9 % Sodium Chloride 250 ML 166.67 MG IV ×2 (08:15→21:06)
[2024-09-22] MEDS: Morphine Sulfate 4 MG/ML CARTRIDGE 2 MG IVPUSH (08:24)
--- NOTE | 2024-09-22 08:24 | P.PNGS_ITS ---
Subjective Subjective Date of Service: 09/22/24 Interval history: He feels much better Pain much improved on the left foot No events overnight Physical Exam 2 Vital Signs: Vital Signs: Last Vital Signs Temp 96.8 F 09/22/24 07:33 Pulse 57 09/22/24 07:33 Resp 16 09/22/24 07:33 BP 190/87 H 09/22/24 07:33 Pulse Ox 99 09/22/24 07:33 O2 Del Method Room Air 09/22/24 07:33 BMI result Body Mass Index 33.1 Const: General: comfortable and no acute distress Resp: Effort & Inspection: normal respiratory effort Cardio: Rate: regular rate GI: Palpation (GI): Soft to palpation Extrem: Other: Left transmetatarsal amputation site with open wound, granulating well, clean Objective Data Active Medications Acetaminophen (Acetaminophen 325 Mg Tablet) 650 mg PO Q6H PRN PRN Reason: Pain, Mild (Pain Scale 1-3), fever or headache Al Hydroxide/Mg Hydroxide (Magnesium Hydrox/Alum Hydrox 30 Ml Oral.Susp) 30 ml PO Q4H PRN PRN Reason: Heartburn Amitriptyline HCl (Amitriptyline Hcl 50 Mg Tablet) 50 mg PO BEDTIME PRN PRN Reason: Depression Calcium Carbonate (Calcium Carbonate 750 Mg Tab.Chew) 750 mg PO Q4H PRN PRN Reason: Heartburn Diltiazem HCl (Diltiazem Hcl Cd 180 Mg Cap.Er.24h) 180 mg PO DAILY [facility]; Protocol Enoxaparin Sodium (Enoxaparin Sodium 40 Mg/0.4 Ml Syringe) 40 mg SUBCUT Q24H [facility] Last Admin: 09/21/24 19:51 Dose: 40 mg Documented By: LOUIS Comments: not given by previous nurse Glucose (Glucose Gel 15 Gm Gel..Gram.) 15 gm PO Q15M PRN; Protocol PRN Reason: per Hypoglycemia Standing Ord. Dextrose (D10) 250 mls @ 750 mls/hr IV Q15M PRN; Protocol PRN Reason: per Hypoglycemia Standing Ord. Piperacillin Sod/Tazobactam (Sod 3.375 gm/ Sodium Chloride) 50 mls @ 100 mls/hr IV Q6H [facility] Last Infusion: 09/22/24 08:11 Dose: Infused Documented By: MARS Vancomycin HCl 1,250 mg/ (Sodium Chloride) 250 mls @ 166.667 mls/hr IV Q12H [facility] Insulin Glargine (Insulin Glargine,Hum.Rec.Anlog 100 Unit/Ml 10 Ml Vial) 40 unit SUBCUT DAILY [facility] Insulin Human Lispro (Insulin Lispro 100 Unit/Ml 3 Ml Vial) 0 unit SUBCUT QIDACHS [facility]; Protocol Last Admin: 09/22/24 08:04 Dose: Not Given Documented By: MARS Non-Admin Reason: No Insulin Coverage Magnesium Hydroxide (Milk Of Magnesia 30 Ml Oral.Susp) 30 ml PO DAILY PRN PRN Reason: Constipation Melatonin (Melatonin 3 Mg Tablet) 6 mg PO BEDTIME PRN PRN Reason: Insomnia Morphine Sulfate (Morphine Sulfate 4 Mg/Ml Cartridge) 2 mg IVPUSH Q6H PRN; Protocol PRN Reason: Pain, Severe (Pain Scale 7-10) Last Admin: 09/21/24 21:22 Dose: 2 mg Documented By: TINO Pharmacy Consult (Consult Rx Vancomycin Dosing) 1 each MISCELLANE DAILY PRN PRN Reason: Consult order Sodium Chloride (0.9 % Sodium Chloride Flush 3 Ml Syringe) 3 ml IVFLUSH [facility] Last Admin: 09/22/24 00:18 Dose: 3 ml Documented By: TINO Labs 09/21/24 13:48 09/21/24 13:48 Labs: Laboratory Results - last 24 hr 09/21/24 09/21/24 09/21/24 13:47 13:48 21:13 MCV 80.8 MCH 24.9 L MCHC 30.9 L RDW 15.3 Plt Count 397 MPV 9.1 L Immature Gran % (Auto) 0.4 Neut % (Auto) 74.1 H Lymph % (Auto) 18.4 L [place] % (Auto) 5.4 Eos % (Auto) 1.5 Baso % (Auto) 0.2 Lymph # (Auto) 2.5 [place] # (Auto) 0.7 Eos # (Auto) 0.2 Baso # (Auto) 0.0 Abs Immat Gran (auto) 0.05 H Absolute Neuts (auto) 10.1 H Absolute Nucleated RBC 0.000 Nucleated RBC % (auto) 0.0 ESR 93 H Anion Gap 12 Estim Creat Clear Calc 94.6 Estimated GFR > 60 POC Glucose 198 H Random Glucose 87 Lactic Acid 1.9 Calcium 9.1 Magnesium 1.9 Total Bilirubin 0.2 Direct Bilirubin < 0.2 AST 14 ALT < 6 Alkaline Phosphatase 82 C-Reactive Protein 3.68 H Total Protein 8.8 H Albumin 3.5 09/22/24 07:37 MCV MCH MCHC RDW Plt Count MPV Immature Gran % (Auto) Neut % (Auto) Lymph % (Auto) [place] % (Auto) Eos % (Auto) Baso % (Auto) Lymph # (Auto) [place] # (Auto) Eos # (Auto) Baso # (Auto) Abs Immat Gran (auto) Absolute Neuts (auto) Absolute Nucleated RBC Nucleated RBC % (auto) ESR Anion Gap Estim Creat Clear Calc Estimated GFR POC Glucose 112 Random Glucose Lactic Acid Calcium Magnesium Total Bilirubin Direct Bilirubin AST ALT Alkaline Phosphatase C-Reactive Protein Total Protein Albumin Procedures Date of Service Date of Service: 09/22/24 Progress Note: A&P Assessment and plan (1) Open wound: Status: Acute Assessment and Plan: Wound looks well Clean and granulating No bone is exposed No cellulitic changes I have asked Reyna the wound care nurse to see the patient for wound care recommendations Time Spent With Patient Time: Total time managing care of this patient today ____ minutes. Quality Stroke Does the patient have a stroke diagnosis?: No VTE Prior VTE?: No VTE Risk Level:: Medical - moderate - high VTE Device Contraindication: Treatment Not Indicated VTE Drug Contraindication: N/A - Med Ordered
[2024-09-22] MEDS: lisinopriL 5 MG TABLET PO (10:25)
--- NOTE | 2024-09-22 10:48 | HE.PHANOTE ---
Re methadone Received verification from nursing, pt gets 80mg daily from [facility]. Last dose was 09/21 @ 0800.
--- NOTE | 2024-09-22 11:15 | MHC.CM.PN ---
PT reports living with mother having no servies pt does not feel he will need services when dcd he may need assist with transport home dc plan home
[2024-09-22 11:30] LABS: Glucose, Whole Blood 269 mg/dL (60-115)
[2024-09-22] MEDS: methADONE HCl 20 MG/2 ML ORAL.CONC 80 MG PO (12:12)
[2024-09-22] MEDS: Insulin Lispro 100 UNIT/ML 3 ML VIAL SUBCUT ×2 (12:12→21:06)
[2024-09-22 13:53] LABS: Estimated Glomerular Filt Rate > 60
[2024-09-22 14:13] VITALS: BP 138/72
--- NOTE | 2024-09-22 14:34 | HO.PM.IMPN ---
Subjective Subjective Date of Service: 09/22/24 Interval History: foot cellulitis Review of Systems erythema and pain seems similar Physical Exam Vital Signs: Vital Signs: Last Vital Signs Temp 96.8 F 09/22/24 07:33 Pulse 57 09/22/24 07:33 Resp 16 09/22/24 07:33 BP 138/72 09/22/24 14:13 Pulse Ox 99 09/22/24 07:33 O2 Del Method Room Air 09/22/24 07:33 BMI result Body Mass Index 33.1 General: AO X 3, no acute distress Resp: CTA bilateral CVS: S1,S2,RRR GI: +BS, NT, no distention skin -seems similar ( please see h&P note). Objective Data Active Medications Acetaminophen (Acetaminophen 325 Mg Tablet) 650 mg PO Q6H PRN PRN Reason: Pain, Mild (Pain Scale 1-3), fever or headache Al Hydroxide/Mg Hydroxide (Magnesium Hydrox/Alum Hydrox 30 Ml Oral.Susp) 30 ml PO Q4H PRN PRN Reason: Heartburn Amitriptyline HCl (Amitriptyline Hcl 50 Mg Tablet) 50 mg PO BEDTIME PRN PRN Reason: Depression Calcium Carbonate (Calcium Carbonate 750 Mg Tab.Chew) 750 mg PO Q4H PRN PRN Reason: Heartburn Diltiazem HCl (Diltiazem Hcl Cd 180 Mg Cap.Er.24h) 180 mg PO DAILY [facility]; Protocol Last Admin: 09/22/24 08:13 Dose: 180 mg Documented By: MARS Enoxaparin Sodium (Enoxaparin Sodium 40 Mg/0.4 Ml Syringe) 40 mg SUBCUT Q24H [facility] Last Admin: 09/21/24 19:51 Dose: 40 mg Documented By: LOUIS Comments: not given by previous nurse Glucose (Glucose Gel 15 Gm Gel..Gram.) 15 gm PO Q15M PRN; Protocol PRN Reason: per Hypoglycemia Standing Ord. Dextrose (D10) 250 mls @ 750 mls/hr IV Q15M PRN; Protocol PRN Reason: per Hypoglycemia Standing Ord. Piperacillin Sod/Tazobactam (Sod 3.375 gm/ Sodium Chloride) 50 mls @ 100 mls/hr IV Q6H [facility] Last Infusion: 09/22/24 12:50 Dose: Infused Documented By: MARS Vancomycin HCl 1,250 mg/ (Sodium Chloride) 250 mls @ 166.667 mls/hr IV Q12H [facility] Last Infusion: 09/22/24 10:27 Dose: Infused Documented By: MARS Insulin Glargine (Insulin Glargine,Hum.Rec.Anlog 100 Unit/Ml 10 Ml Vial) 40 unit SUBCUT DAILY [facility] Last Admin: 09/22/24 08:14 Dose: 40 unit Documented By: MARS Insulin Human Lispro (Insulin Lispro 100 Unit/Ml 3 Ml Vial) 0 unit SUBCUT QIDACHS [facility]; Protocol Last Admin: 09/22/24 12:12 Dose: 6 unit Documented By: MARS Lisinopril (Lisinopril 5 Mg Tablet) 5 mg PO DAILY [facility]; Protocol Last Admin: 09/22/24 10:25 Dose: 5 mg Documented By: MARS Magnesium Hydroxide (Milk Of Magnesia 30 Ml Oral.Susp) 30 ml PO DAILY PRN PRN Reason: Constipation Melatonin (Melatonin 3 Mg Tablet) 6 mg PO BEDTIME PRN PRN Reason: Insomnia Methadone HCl (Methadone Hcl 20 Mg/2 Ml Oral.Conc) 80 mg PO DAILY [facility] Last Admin: 09/22/24 12:12 Dose: 80 mg Documented By: MARS Co-signed By: JOAN Morphine Sulfate (Morphine Sulfate 4 Mg/Ml Cartridge) 2 mg IVPUSH Q6H PRN; Protocol PRN Reason: Pain, Severe (Pain Scale 7-10) Last Admin: 09/22/24 08:24 Dose: 2 mg Documented By: MARS Pharmacy Consult (Consult Rx Vancomycin Dosing) 1 each MISCELLANE DAILY PRN PRN Reason: Consult order Sodium Chloride (0.9 % Sodium Chloride Flush 3 Ml Syringe) 3 ml IVFLUSH QSHIFT [facility] Last Admin: 09/22/24 08:14 Dose: 3 ml Documented By: MARS Labs 09/21/24 13:48 09/22/24 13:23 Labs: Laboratory Results - last 24 hr 09/21/24 09/22/24 09/22/24 21:13 07:37 11:26 Estim Creat Clear Calc Estimated GFR POC Glucose 198 H 112 269 H 09/22/24 13:23 Estim Creat Clear Calc 79.0 Estimated GFR > 60 POC Glucose Assessment and Plan (1) Open wound: Status: Acute (2) Diabetic infection of left foot: Status: Acute Assessment and Plan: 63-year-old male with a history of PVD, 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 His medical history also includes hypertension, hepatitis C (treated in 2009), and chronic wheelchair use. In July, he underwent revision of the transmetatarsal amputation stump with resection of the remaining 5th metatarsal at the tarsometatarsal joint. It is unclear if he has followed up with surgery since then, as sutures were still in place and removed in the ED. He reports increasing foot pain. While the wound does not appear grossly infected externally, his lab results show WBC 13, ESR 93, and CRP >3, raising concern for a deep infection. Cellulitis of chronic non healing diabetic left foot ulcer esr and crp elevated MRI to check for bone infection blood cultures pending continue vanco and zosyn surgery eval Insulin-dependent type 2 diabetes Sliding-scale insulin, Lantus Paroxysmal AFib Continue diltiazem Not on anticoagulation Opioid use disorder Continue methadone Chronic normocytic anemia Stable, at baseline Full Code DVT Prophylaxis: lovenox ongoing need hospitalization for treatment of worsening chronic diabetic foot infection with cellulitis concerning for osteomyelitis that has failed outpatient therapy. Patient will need administration of IV antibiotics and surgical consultation for likely amputation. Quality Stroke Does the patient have a stroke diagnosis?: No VTE Prior VTE?: No VTE Risk Level:: Medical - moderate - high VTE Device Contraindication: Treatment Not Indicated VTE Drug Contraindication: N/A - Med Ordered
[2024-09-22 15:07] VITALS: BP 140/70; PULSE 61; RESP 15; TEMP 36.3; O2SAT 95
[2024-09-22 15:48] LABS: Glucose, Whole Blood 135 mg/dL (60-115)
--- NOTE | 2024-09-22 16:46 | HO.WOUND ---
Wound Consult: Initial 63yr old?Male admitted to [facility] on 09/21/24 - See progress notes and H&P for detailed history.? Wound consult follow up for Left Lower Leg and foot wounds POA.? Patient agreeable to assessment and photo documentation.? Patient educated on the importance of blood sugar control, he reports understanding. Left Lateral Plantar Foot Etiology: ?Diabetic wound Measurements: 8cm x 4cm x 2cm Wound Bed: red pink moist tissue with small amount of yellow slough at 3 o'clock thick adherent slough probed to bone - Dr. Graves aware. Drainage / Odor: clifton drainage noted no odor note Edges: ? well defined Shara wound: dry thick callused with some areas of maceration noted ? No Induration noted Pain: denies pain Goals of Treatment: Moisture management and biofilm disruption with iodosorb ? Left Leg Etiology: Venous wound Wound Bed: red mpist wound bed Drainage / Odor: clifton drainage noted on dressing - No odor noted Edges: ? well defined and attached Shara wound: Hemosiderin staining noted - scar tissue noted - No Induration, Fluctuance or Warmth noted Pain: denies pain Goals of Treatment: Moisture management and biofilm disruption with iodosorb ? Recommendations: 1. Turn and Reposition every 2 hours and as needed for patient comfort.? Use pillows or wedges to support off loading positions. 2. Off Load all bony prominences with use of pillows and heel boots if needed.? Apply Preventative foams where needed. ? 3. Monitor for incontinence and moisture control, use barrier creams when needed for prevention and treatment. 4. Provide adequate and supplemental nutrition.? 5. Order low air loss mattress. 6. Maintain blood glucose levels per Providers order. 7. Left Plantar Foot and Left Lower Leg - Elevate lower legs - Cleanse with saline, pat dry. ?Apply Iodosorb to wound bed cover with gauze, ABD pad and kerlix wrap. ?Change every other day to start, note the product will be applied brown and over the course of time as the Betadine is absorbed into the wound bed the color will change to yellow / cream signifying time to replace the product. Iodosorb is only available from the wound nurse - please tiger text is supply is needed. ? Re-consult wound care Nurse for wound deterioration or wound changes.
[2024-09-22] MEDS: Acetaminophen 325 MG TABLET 650 MG PO (18:15)
[2024-09-22] MEDS: Enoxaparin Sodium 40 MG/0.4 ML SYRINGE SUBCUT (18:16)
[2024-09-22 20:06] LABS: Glucose, Whole Blood 218 mg/dL (60-115)
[2024-09-23] VITALS (7 sets, daily range): BP systolic 146–178; BP diastolic 70–80; PULSE 50–65; RESP 16; TEMP 36.3–36.6; O2SAT 97–98
[2024-09-23] MEDS: Piperacillin Sodium/Tazobactam 3.375 GM in 0.9 % Sodium Chloride 50 ML IV ×4 (01:58→17:26)
[2024-09-23 08:00] LABS: Glucose, Whole Blood 78 mg/dL (60-115)
[2024-09-23 08:19] LABS: Creatinine Clr Calc Pharmacy 80.6; Estimated Glomerular Filt Rate > 60
[2024-09-23 08:25] LABS: Vancomycin Trough 21.1 mcg/mL (10.0-20.0)
--- NOTE | 2024-09-23 08:36 | HE.PHANOTE ---
RE: VANCO DOSING Trough came back as 21.1. Dose is held for 4 hours and decreased to 1000 mg q12h, starting @1200 on 09/23/24. Next random is due @1000 on 09/24/24.
[2024-09-23] MEDS: dilTIAZem HCL CD 180 MG CAP.ER.24H PO (10:30)
[2024-09-23] MEDS: 0.9 % Sodium Chloride Flush 3 ML SYRINGE IVFLUSH ×2 (10:31→17:26)
[2024-09-23] MEDS: methADONE HCl 20 MG/2 ML ORAL.CONC 80 MG PO (10:31)
[2024-09-23] MEDS: Morphine Sulfate 4 MG/ML CARTRIDGE 2 MG IVPUSH ×2 (10:43→22:23)
[2024-09-23] MEDS: Insulin Glargine,Hum.rec.anlog 100 UNIT/ML 10 ML VIAL 40 UNIT SUBCUT (10:44)
[2024-09-23] MEDS: Lactated Ringers 1,000 ML 100 ML IVCONT (10:45)
[2024-09-23 11:18] LABS: Glucose, Whole Blood 234 mg/dL (60-115)
[2024-09-23] MEDS: Insulin Lispro 100 UNIT/ML 3 ML VIAL SUBCUT ×3 (12:03→22:14)
--- NOTE | 2024-09-23 12:13 | HO.PM.IMPN ---
Subjective Subjective Date of Service: 09/23/24 Interval History: foot cellulitis Review of Systems erythema and pain seems similar Physical Exam Vital Signs: Vital Signs: Last Vital Signs Temp 97.3 F 09/23/24 07:16 Pulse 60 09/23/24 10:30 Resp 16 09/23/24 07:16 BP 178/80 H 09/23/24 07:16 Pulse Ox 98 09/23/24 07:16 O2 Del Method Room Air 09/23/24 07:16 BMI result Body Mass Index 33.1 General: AO X 3, no acute distress Resp: CTA bilateral CVS: S1,S2,RRR GI: +BS, NT, no distention skin -seems similar ( please see h&P note). Objective Data Active Medications Acetaminophen (Acetaminophen 325 Mg Tablet) 650 mg PO Q6H PRN PRN Reason: Pain, Mild (Pain Scale 1-3), fever or headache Last Admin: 09/22/24 18:15 Dose: 650 mg Documented By: VANE Al Hydroxide/Mg Hydroxide (Magnesium Hydrox/Alum Hydrox 30 Ml Oral.Susp) 30 ml PO Q4H PRN PRN Reason: Heartburn Amitriptyline HCl (Amitriptyline Hcl 50 Mg Tablet) 50 mg PO BEDTIME PRN PRN Reason: Depression Calcium Carbonate (Calcium Carbonate 750 Mg Tab.Chew) 750 mg PO Q4H PRN PRN Reason: Heartburn Diltiazem HCl (Diltiazem Hcl Cd 180 Mg Cap.Er.24h) 180 mg PO DAILY [facility]; Protocol Last Admin: 09/23/24 10:30 Dose: 180 mg Documented By: HÉCTOR Enoxaparin Sodium (Enoxaparin Sodium 40 Mg/0.4 Ml Syringe) 40 mg SUBCUT Q24H [facility] Last Admin: 09/22/24 18:16 Dose: 40 mg Documented By: VANE Glucose (Glucose Gel 15 Gm Gel..Gram.) 15 gm PO Q15M PRN; Protocol PRN Reason: per Hypoglycemia Standing Ord. Dextrose (D10) 250 mls @ 750 mls/hr IV Q15M PRN; Protocol PRN Reason: per Hypoglycemia Standing Ord. Piperacillin Sod/Tazobactam (Sod 3.375 gm/ Sodium Chloride) 50 mls @ 100 mls/hr IV Q6H [facility] Last Admin: 09/23/24 12:03 Dose: 100 mls/hr Documented By: HÉCTOR Lactated Ringer's (Lr) 1,000 mls @ 100 mls/hr IVCONT .Q10H [facility] Last Admin: 09/23/24 10:45 Dose: 100 mls/hr Documented By: HÉTCOR Insulin Glargine (Insulin Glargine,Hum.Rec.Anlog 100 Unit/Ml 10 Ml Vial) 40 unit SUBCUT DAILY [facility] Last Admin: 09/23/24 10:44 Dose: 20 unit Documented By: HÉCTOR Comments: poc 78. only give 20units per Dr. Kelly. Insulin Human Lispro (Insulin Lispro 100 Unit/Ml 3 Ml Vial) 0 unit SUBCUT QIDACHS [facility]; Protocol Last Admin: 09/23/24 12:03 Dose: 4 unit Documented By: HÉCTOR Magnesium Hydroxide (Milk Of Magnesia 30 Ml Oral.Susp) 30 ml PO DAILY PRN PRN Reason: Constipation Melatonin (Melatonin 3 Mg Tablet) 6 mg PO BEDTIME PRN PRN Reason: Insomnia Methadone HCl (Methadone Hcl 20 Mg/2 Ml Oral.Conc) 80 mg PO DAILY [facility] Last Admin: 09/23/24 10:31 Dose: 80 mg Documented By: HÉCTOR Co-signed By: KEITH Morphine Sulfate (Morphine Sulfate 4 Mg/Ml Cartridge) 2 mg IVPUSH Q6H PRN; Protocol PRN Reason: Pain, Severe (Pain Scale 7-10) Last Admin: 09/23/24 10:43 Dose: 2 mg Documented By: HÉCTOR Sodium Chloride (0.9 % Sodium Chloride Flush 3 Ml Syringe) 3 ml IVFLUSH QSHIFT [facility] Last Admin: 09/23/24 10:31 Dose: 3 ml Documented By: HÉCTOR Labs 09/21/24 13:48 09/23/24 07:48 Labs: Laboratory Results - last 24 hr 09/22/24 09/22/24 09/22/24 13:23 15:41 20:00 Estim Creat Clear Calc 79.0 Estimated GFR > 60 POC Glucose 135 H 218 H Vancomycin Trough 09/23/24 09/23/24 09/23/24 07:06 07:48 10:50 Estim Creat Clear Calc 80.6 Estimated GFR > 60 POC Glucose 78 234 H Vancomycin Trough 21.1 H Microbiology Microbiology Results: Microbiology 09/21/24 13:48 Blood Culture - Preliminary Blood - Venous No growth after 24 hours. 09/21/24 13:48 Blood Culture - Preliminary Blood - Venous No growth after 24 hours. Assessment and Plan (1) Diabetic infection of left foot: Status: Acute Assessment and Plan: 63-year-old male with a history of PVD, 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 His medical history also includes hypertension, hepatitis C (treated in 2009), and chronic wheelchair use. In July, he underwent revision of the transmetatarsal amputation stump with resection of the remaining 5th metatarsal at the tarsometatarsal joint. It is unclear if he has followed up with surgery since then, as sutures were still in place and removed in the ED. He reports increasing foot pain. While the wound does not appear grossly infected externally, his lab results show WBC 13, ESR 93, and CRP >3, raising concern for a deep infection. Cellulitis of chronic non healing diabetic left foot ulcer esr and crp elevated MRI to check for bone infection blood cultures pending hold vanco due to elevated vanco levels 21.1 and continue zosyn surgery eval iD eval also added Insulin-dependent type 2 diabetes Sliding-scale insulin, Lantus Paroxysmal AFib Continue diltiazem Not on anticoagulation HTn :somewhat uncontrolled added hydralazine to 10 mg po bid and we may consider adjusting cardizem to 240 mg daily , dc lisnopril since vanco levels are high . Opioid use disorder Continue methadone Chronic normocytic anemia Stable, at baseline Full Code DVT Prophylaxis: lovenox ongoing need hospitalization for treatment of worsening chronic diabetic foot infection with cellulitis concerning for osteomyelitis that has failed outpatient therapy. Patient will need administration of IV antibiotics and surgical consultation for likely amputation. (2) Open wound: Status: Acute Quality Stroke Does the patient have a stroke diagnosis?: No VTE Prior VTE?: No VTE Risk Level:: Medical - moderate - high VTE Device Contraindication: Treatment Not Indicated VTE Drug Contraindication: N/A - Med Ordered
--- NOTE | 2024-09-23 15:33 | HO.WOUND ---
Wound Consult: Follow up 63yr old?Male admitted to [facility] on 09/21/24 - See progress notes and H&P for detailed history.? Wound consult follow up for Left Lower Leg and foot wounds POA.? Patient agreeable to assessment and photo documentation.? Patient educated on the importance of blood sugar control, he reports understanding. Follow up today dressing change completed - Iodosorb white in color signifying ready to be changed. Saunders wound bed with red pink clean wound bed will recommend continue with iodosorb. Left Plantar foot assessed - Iodosorb white in color also ready for change, the wound bed is red pink with thin veil of slough noted, the tunnel at 3 oclock remains - minimal slough noted at todays assessment - recommend continue with Iodosorb dressing. New iodosorb dressing applied will monitor tomorrow for wound bed appearance. From Previous assessment: Left Lateral Plantar Foot Etiology: ?Diabetic wound Measurements: 8cm x 4cm x 2cm Wound Bed: red pink moist tissue with small amount of yellow slough at 3 o'clock thick adherent slough probed to bone - Dr. Graves aware. Drainage / Odor: clifton drainage noted no odor note Edges: ? well defined Shara wound: dry thick callused with some areas of maceration noted ? No Induration noted Pain: denies pain Goals of Treatment: Moisture management and biofilm disruption with iodosorb ? Left Leg Etiology: Venous wound Wound Bed: red mpist wound bed Drainage / Odor: clifton drainage noted on dressing - No odor noted Edges: ? well defined and attached Shara wound: Hemosiderin staining noted - scar tissue noted - No Induration, Fluctuance or Warmth noted Pain: denies pain Goals of Treatment: Moisture management and biofilm disruption with iodosorb ? Recommendations: 1. Turn and Reposition every 2 hours and as needed for patient comfort.? Use pillows or wedges to support off loading positions. 2. Off Load all bony prominences with use of pillows and heel boots if needed.? Apply Preventative foams where needed. ? 3. Monitor for incontinence and moisture control, use barrier creams when needed for prevention and treatment. 4. Provide adequate and supplemental nutrition.? 5. Order low air loss mattress. 6. Maintain blood glucose levels per Providers order. 7. Left Plantar Foot and Left Lower Leg - Elevate lower legs - Cleanse with saline, pat dry. ?Apply Iodosorb to wound bed cover with gauze, ABD pad and kerlix wrap. ?Change every other day to start, note the product will be applied brown and over the course of time as the Betadine is absorbed into the wound bed the color will change to yellow / cream signifying time to replace the product. Iodosorb is only available from the wound nurse - please tiger text is supply is needed. ? Re-consult wound care Nurse for wound deterioration or wound changes.
[2024-09-23 16:07] LABS: Glucose, Whole Blood 229 mg/dL (60-115)
[2024-09-23] MEDS: Enoxaparin Sodium 40 MG/0.4 ML SYRINGE SUBCUT (17:26)
[2024-09-23 20:24] LABS: Glucose, Whole Blood 174 mg/dL (60-115)
[2024-09-23] MEDS: hydrALAZINE HCl 10 MG TABLET PO (22:13)
--- NOTE | 2024-09-23 22:50 | P.CNID_ITS ---
History of Present Illness Data of Consult Service Date: 09/22/24 Requesting physician: Mina Kelly Primary Care Provider: Mac Clarke MD [facility] Reason for consult: wound erythema left TMA He presents for wound drainage left TMA area. He had resection TMA and resection 5th toe in July. He had no followup after and did not get sutures out. He has no bacteremia. 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 History of transmetatarsal amputation of foot (~09/2016) History of amputation of toe (~08/18/14) History of amputation of toe (~10/21/13) History of lipoma Social History Social History Household Members: Family Household Members Other:: mother Housing: Apartment Housing Other:: patient is homeless, couch surfing with friends/family Are you a primary spiritual care coordinator to a significant other at home: No Do you presently have visiting nurse or other home services: No Alcohol intake: never Patient Tobacco Use Status: Current everyday Tobacco user Tobacco use type: Cigarette Cigarettes Per Day: 4 Years Smoked: 49 Smoked in Last 30 Days: Yes Patient Interested in Nicotine Replacement: Yes Patient Given Instructions on How to Stop Smoking: Yes Date Education Initiated: 09/22/24 Second Hand Smoke Exposure: Yes Use of substances other than those prescribed or required for medical reasons: No Substance Use Type: Crack/Cocaine Currently Displaying Signs/Symptoms of Drug Intoxication Withdrawal: No Any prior treatment program specific to substance use: No Have you been hit, kicked, punched, or otherwise hurt by someone within the past year? If so, by whom?: No Do you feel safe in your current relationship?: No Current Relationship Is there a partner from a previous relationship who is making you feel unsafe now?: No Are you made to feel afraid or neglected: No Advance Directives: Yes Advance Directives Information Provided: No Advance Directives on File: Yes Advance Directives Date on File: 04/28/24 Do you have a plan to hurt others: No Plan Recently lost weight without trying: No Eating poorly because of decreased appetite: No Nutrition Risks: No Nutritional Risk Poor oral hygiene: No service: No Meds Allergies Allergy/AdvReac Type Severity Reaction Status Date / Time furosemide [Lasix] Allergy Intermediate Hives Verified 09/21/24 10:44 levofloxacin [Levaquin] Allergy Unknown Gastrointestinal Verified 09/21/24 10:44 Upset metronidazole [Flagyl] Allergy Unknown Unknown Verified 09/21/24 10:44 latex Allergy Rash Verified 09/21/24 10:44 contrast dye Allergy Unknown rash, hives Uncoded 09/21/24 10:44 Active Medications: Current Medications Acetaminophen (Acetaminophen 325 Mg Tablet) 650 mg PO Q6H PRN PRN Reason: Pain, Mild (Pain Scale 1-3), fever or headache Last Admin: 09/22/24 18:15 Dose: 650 mg Al Hydroxide/Mg Hydroxide (Magnesium Hydrox/Alum Hydrox 30 Ml Oral.Susp) 30 ml PO Q4H PRN PRN Reason: Heartburn Amitriptyline HCl (Amitriptyline Hcl 50 Mg Tablet) 50 mg PO BEDTIME PRN PRN Reason: Depression Calcium Carbonate (Calcium Carbonate 750 Mg Tab.Chew) 750 mg PO Q4H PRN PRN Reason: Heartburn Diltiazem HCl (Diltiazem Hcl Cd 240 Mg Cap.Er.Deg) 240 mg PO DAILY [facility]; Protocol Enoxaparin Sodium (Enoxaparin Sodium 40 Mg/0.4 Ml Syringe) 40 mg SUBCUT Q24H [facility] Last Admin: 09/23/24 17:26 Dose: 40 mg Glucose (Glucose Gel 15 Gm Gel..Gram.) 15 gm PO Q15M PRN; Protocol PRN Reason: per Hypoglycemia Standing Ord. Hydralazine HCl (Hydralazine Hcl 10 Mg Tablet) 10 mg PO BID [facility]; Protocol Last Admin: 09/23/24 22:13 Dose: 10 mg Dextrose (D10) 250 mls @ 750 mls/hr IV Q15M PRN; Protocol PRN Reason: per Hypoglycemia Standing Ord. Piperacillin Sod/Tazobactam (Sod 3.375 gm/ Sodium Chloride) 50 mls @ 100 mls/hr IV Q6H [facility] Last Infusion: 09/23/24 18:10 Dose: Infused Lactated Ringer's (Lr) 1,000 mls @ 100 mls/hr IVCONT .Q10H [facility] Last Admin: 09/23/24 10:45 Dose: 100 mls/hr Insulin Glargine (Insulin Glargine,Hum.Rec.Anlog 100 Unit/Ml 10 Ml Vial) 40 unit SUBCUT DAILY [facility] Last Admin: 09/23/24 10:44 Dose: 20 unit Insulin Human Lispro (Insulin Lispro 100 Unit/Ml 3 Ml Vial) 0 unit SUBCUT QIDACHS [facility]; Protocol Last Admin: 09/23/24 22:14 Dose: 2 unit Magnesium Hydroxide (Milk Of Magnesia 30 Ml Oral.Susp) 30 ml PO DAILY PRN PRN Reason: Constipation Melatonin (Melatonin 3 Mg Tablet) 6 mg PO BEDTIME PRN PRN Reason: Insomnia Methadone HCl (Methadone Hcl 20 Mg/2 Ml Oral.Conc) 80 mg PO DAILY [facility] Last Admin: 09/23/24 10:31 Dose: 80 mg Morphine Sulfate (Morphine Sulfate 4 Mg/Ml Cartridge) 2 mg IVPUSH Q6H PRN; Protocol PRN Reason: Pain, Severe (Pain Scale 7-10) Last Admin: 09/23/24 22:23 Dose: 2 mg Sodium Chloride (0.9 % Sodium Chloride Flush 3 Ml Syringe) [facility] Last Admin: 09/23/24 17:26 Dose: 3 ml Home Medications ?Medication ?Instructions ?Recorded ?Confirmed ?Last Taken ?Type amitriptyline 50 mg tablet 50 mg PO BEDTIME PRN Depression 12/09/20 09/21/24 06/20/24 History blood sugar diagnostic (FreeStyle #10 ea 03/08/22 06/21/24 Unknown History Lite Strips) insulin syringe-needle U-100 1 mL #10 ea 03/08/22 10/28/23 Unknown History 31 gauge x 5/16 (BD Insulin Syringe Ultra-Fine) diltiazem HCl 180 mg capsule,24 180 mg PO DAILY 04/09/24 09/21/2409/21/24 History hr,extended release methadone 10 mg/mL oral concentrate 80 mg PO DAILY 04/10/24 09/22/24 09/21/24 History 80 mg insulin glargine 100 unit/mL 40 unit subcut DAILY 06/21/24 09/21/24 09/21/24 History subcutaneous solution (Lantus U-100 Insulin) Physical Exam 2 Vital Signs: Vital Signs: Last Vital Signs Temp 98 F 09/23/24 15:02 Pulse 58 09/23/24 22:11 Resp 16 09/23/24 15:02 BP 166/77 H 09/23/24 22:13 Pulse Ox 97 09/23/24 22:11 O2 Del Method Room Air 09/23/24 22:11 BMI result Body Mass Index 33.1 Const: General: cooperative HEENT: Head: Yes normal to inspection Face and sinus: Yes normal facial exam Mouth: Normal oral and palatal mucosa present Teeth and gingiva: d entition normal Eyes: General: appearance normal, both eyes and all related structures P upils: Equal, round and reactive pupils present Resp: Effort & Inspection: normal respiratory effort Cardio: Rate: regular rate Rhythm: regular rhythm GI: Palpation (GI): Soft to palpation and nontender : General: Yes no CVA tenderness Back/Spine/Pelvis: Back: no CVA tenderness Skin: General skin exam: no rashes or lesions noted Neuro: General: moves all extremities Cranial nerves: Yes Equal, round and reactive pupils present Extrem: Other: TMA site sutures,denuded area,mild erythema,pulses,no deep wound Psych: Appearance: grossly normal Results Labs 09/21/24 13:48 09/23/24 07:48 Labs: BMP 09/23/24 07:48 Creatinine 0.98 Microbiology Microbiology Results: Microbiology 09/21/24 13:48 Blood - Venous Blood Culture - Preliminary No growth after 48 hours. 09/21/24 13:48 Blood - Venous Blood Culture - Preliminary No growth after 48 hours. Assessment and Plan (1) Diabetic infection of left foot: Status: Acute (2) Open wound: Status: Acute Plan Wound irritation/inflammation left foot TMA site seems superficial at this point and no deep wound per Surgery I had seen in April/May right stump OM and six weeks Ertapenem Would not give residential IV here.' Add Doxycycline cover MRSA and Zosyn 3-5 d and then discharge on po Augmentin and Doxycycline for a month. Prognosis for limb salvage guarded.
[2024-09-24] MEDS: Piperacillin Sodium/Tazobactam 3.375 GM in 0.9 % Sodium Chloride 50 ML IV ×5 (00:02→23:43)
[2024-09-24] MEDS: Lactated Ringers 1,000 ML 100 ML IVCONT ×2 (00:42→13:12)
[2024-09-24 07:11] VITALS: BP 164/79; PULSE 60; RESP 16; TEMP 36; O2SAT 98
[2024-09-24 07:37] LABS: Glucose, Whole Blood 134 mg/dL (60-115)
[2024-09-24] MEDS: methADONE HCl 20 MG/2 ML ORAL.CONC 80 MG PO (09:32)
[2024-09-24] MEDS: dilTIAZem HCL CD 240 MG CAP.ER.DEG PO (09:32)
[2024-09-24] MEDS: Insulin Glargine,Hum.rec.anlog 100 UNIT/ML 10 ML VIAL 40 UNIT SUBCUT (09:33)
[2024-09-24] MEDS: hydrALAZINE HCl 10 MG TABLET PO ×2 (09:33→21:03)
[2024-09-24] MEDS: 0.9 % Sodium Chloride Flush 3 ML SYRINGE IVFLUSH ×3 (09:33→21:03)
[2024-09-24] MEDS: Doxycycline Hyclate 100 MG in 0.9 % Sodium Chloride 250 ML 166.67 MG IV ×2 (10:04→21:03)
[2024-09-24 11:16] LABS: Glucose, Whole Blood 147 mg/dL (60-115)
--- NOTE | 2024-09-24 13:59 | HO.PM.IMPN ---
Subjective Subjective Date of Service: 09/24/24 Interval History: foot infections Review of Systems says foot pain similar , erythema somewhat improving Physical Exam Vital Signs: Vital Signs: Last Vital Signs Temp 96.8 F 09/24/24 07:11 Pulse 60 09/24/24 07:11 Resp 16 09/24/24 07:11 BP 164/79 H 09/24/24 07:11 Pulse Ox 98 09/24/24 07:11 O2 Del Method Room Air 09/24/24 07:11 BMI result Body Mass Index 33.1 General: AO X 3, no acute distress Resp: CTA bilateral CVS: S1,S2,RRR GI: +BS, NT, no distention skin -seems similar ( please see h&P note) Objective Data Active Medications Acetaminophen (Acetaminophen 325 Mg Tablet) 650 mg PO Q6H PRN PRN Reason: Pain, Mild (Pain Scale 1-3), fever or headache Last Admin: 09/22/24 18:15 Dose: 650 mg Documented By: VANE Al Hydroxide/Mg Hydroxide (Magnesium Hydrox/Alum Hydrox 30 Ml Oral.Susp) 30 ml PO Q4H PRN PRN Reason: Heartburn Amitriptyline HCl (Amitriptyline Hcl 50 Mg Tablet) 50 mg PO BEDTIME PRN PRN Reason: Depression Calcium Carbonate (Calcium Carbonate 750 Mg Tab.Chew) 750 mg PO Q4H PRN PRN Reason: Heartburn Diltiazem HCl (Diltiazem Hcl Cd 240 Mg Cap.Er.Deg) 240 mg PO DAILY [facility]; Protocol Last Admin: 09/24/24 09:32 Dose: 240 mg Documented By: HÉCTOR Enoxaparin Sodium (Enoxaparin Sodium 40 Mg/0.4 Ml Syringe) 40 mg SUBCUT Q24H [facility] Last Admin: 09/23/24 17:26 Dose: 40 mg Documented By: HÉCTOR Glucose (Glucose Gel 15 Gm Gel..Gram.) 15 gm PO Q15M PRN; Protocol PRN Reason: per Hypoglycemia Standing Ord. Hydralazine HCl (Hydralazine Hcl 10 Mg Tablet) 10 mg PO BID [facility]; Protocol Last Admin: 09/24/24 09:33 Dose: 10 mg Documented By: HÉCTOR Dextrose (D10) 250 mls @ 750 mls/hr IV Q15M PRN; Protocol PRN Reason: per Hypoglycemia Standing Ord. Piperacillin Sod/Tazobactam (Sod 3.375 gm/ Sodium Chloride) 50 mls @ 100 mls/hr IV Q6H [facility] Last Admin: 09/24/24 13:12 Dose: 100 mls/hr Documented By: HÉCTOR Lactated Ringer's (Lr) 1,000 mls @ 100 mls/hr IVCONT .Q10H [facility] Last Admin: 09/24/24 13:12 Dose: 100 mls/hr Documented By: HÉCTOR Doxycycline Hyclate 100 mg/ (Sodium Chloride) 250 mls @ 166.67 mls/hr IV Q12H [facility] Last Infusion: 09/24/24 13:20 Dose: Infused Documented By: HÉCTOR Insulin Glargine (Insulin Glargine,Hum.Rec.Anlog 100 Unit/Ml 10 Ml Vial) 40 unit SUBCUT DAILY [facility] Last Admin: 09/24/24 09:33 Dose: 40 unit Documented By: HÉCTOR Insulin Human Lispro (Insulin Lispro 100 Unit/Ml 3 Ml Vial) 0 unit SUBCUT QIDACHS [facility]; Protocol Last Admin: 09/24/24 11:25 Dose: Not Given Documented By: HÉCTOR Non-Admin Reason: No Insulin Coverage Magnesium Hydroxide (Milk Of Magnesia 30 Ml Oral.Susp) 30 ml PO DAILY PRN PRN Reason: Constipation Melatonin (Melatonin 3 Mg Tablet) 6 mg PO BEDTIME PRN PRN Reason: Insomnia Methadone HCl (Methadone Hcl 20 Mg/2 Ml Oral.Conc) 80 mg PO DAILY [facility] Last Admin: 09/24/24 09:32 Dose: 80 mg Documented By: HÉCTOR Co-signed By: AMELIA Morphine Sulfate (Morphine Sulfate 4 Mg/Ml Cartridge) 2 mg IVPUSH Q6H PRN; Protocol PRN Reason: Pain, Severe (Pain Scale 7-10) Last Admin: 09/23/24 22:23 Dose: 2 mg Documented By: ROSY Sodium Chloride (0.9 % Sodium Chloride Flush 3 Ml Syringe) 3 ml IVFLUSH QSHIFT [facility] Last Admin: 09/24/24 09:33 Dose: 3 ml Documented By: HÉCTOR Labs 09/21/24 13:48 09/23/24 07:48 Labs: Laboratory Results - last 24 hr 09/23/24 09/23/24 09/24/24 16:04 20:20 07:14 POC Glucose 229 H 174 H 134 H 09/24/24 11:08 POC Glucose 147 H Microbiology Microbiology Results: Microbiology 09/21/24 13:48 Blood Culture - Preliminary Blood - Venous No growth after 48 hours. 09/21/24 13:48 Blood Culture - Preliminary Blood - Venous No growth after 48 hours. Assessment and Plan (1) Diabetic infection of left foot: Status: Acute Assessment and Plan: 63-year-old male with a history of PVD, 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 His medical history also includes hypertension, hepatitis C (treated in 2009), and chronic wheelchair use. In July, he underwent revision of the transmetatarsal amputation stump with resection of the remaining 5th metatarsal at the tarsometatarsal joint. It is unclear if he has followed up with surgery since then, as sutures were still in place and removed in the ED. He reports increasing foot pain. While the wound does not appear grossly infected externally, his lab results show WBC 13, ESR 93, and CRP >3, raising concern for a deep infection. Cellulitis of chronic non healing diabetic left foot ulcer esr and crp elevated blood cultures pending surgery eval noted-wound granulating/no bone exposed . iD eval -Wound irritation/inflammation left foot TMA site,seems superficial at this point and no deep wound per Surgery continue doxycycline and continue zosyn bmp Insulin-dependent type 2 diabetes Sliding-scale insulin, Lantus Paroxysmal AFib Continue diltiazem Not on anticoagulation HTn :somewhat uncontrolled continue hydralazine to 10 mg po bid and cardizem to 240 mg daily , dc lisnopril since vanco levels are high . Opioid use disorder Continue methadone Chronic normocytic anemia Stable, at baseline Full Code DVT Prophylaxis: lovenox ongoing need hospitalization for treatment of worsening chronic diabetic foot infection with cellulitis concerning for osteomyelitis that has failed outpatient therapy. Patient will need administration of IV antibiotics and surgical consultation for likely amputation. (2) Open wound: Status: Acute Quality Stroke Does the patient have a stroke diagnosis?: No VTE Prior VTE?: No VTE Risk Level:: Medical - moderate - high VTE Device Contraindication: Treatment Not Indicated VTE Drug Contraindication: N/A - Med Ordered
[2024-09-24 15:26] LABS: Anion Gap 11 (12-20); Blood Urea Nitrogen 16 mg/dL (9-16); Calcium 8.5 mg/dL (8.4-10.2); Carbon Dioxide 26 mmol/L (22-29); Chloride 105 mmol/L (96-108); Creatinine Clr Calc Pharmacy 73.2; Estimated Glomerular Filt Rate > 60; Glucose Random 89 mg/dL (60-115); Potassium 4.4 mmol/L (3.3-5.1); Sodium 138 mmol/L (135-145); Vancomycin Random 8.9 mcg/mL (15-20)
[2024-09-24 15:28] VITALS: BP 144/75; PULSE 64; RESP 18; TEMP 36.8; O2SAT 94
[2024-09-24 16:09] LABS: Glucose, Whole Blood 69 mg/dL (60-115)
--- NOTE | 2024-09-24 16:24 | HO.WOUND ---
Addendum entered by Oxana Ballesteros 09/25/24 15:18: WOUND CLINIC PHONE NUMBER IS [phone] CM HAS CALLED X 2 TO REQUEST F/U APPT. VM MESSAGE LEFT Original Note: Wound Consult: Follow up 63yr old?[place] [facility] - See progress notes and H&P for detailed history.? Wound consult follow up for Left Lower Leg and foot wounds POA.? Patient agreeable to assessment and photo documentation.? Patient educated on the importance of blood sugar control, he reports understanding. Patient legs continues to be in dependent position when checking in on pt - educated on the importance of lower leg elevation and off loading pressure and limiting walking directly on wound when at home. He reports understanding. Patient reports he changes his own dressig at home - patient will benefit from VNA follow up if he does not have it already and outpt wound clinic follow up. Saunders leg wound remains healthy clean red moist viable tissue. The plantar wound remains down to smooth bone, the is no purulent drainage, no odor and no s/s of infection. However the wound bed appeared to have an increased layer of slough and moist - the Iodosorb was assessed to be white signifying ready for change. Given the lack of improvement with Iodosorb I will switch his topical dressings to Durafiber Ag for moisture management. Should the patient d/c to home he should follow up outpt and VNA services would be needed for assistance with dressing changes to ensure packing of plantar wound. Left Lateral Plantar Foot Etiology: ?Diabetic wound Measurements: 8cm x 4cm x 2cm Wound Bed: red pink moist tissue with moist yellow slough at 3 o'clock probed to bone - Providers aware - discussed with Dr. Kelly Drainage / Odor: clifton drainage noted no odor note no s/s of infection at this time Edges: ? well defined Shara wound: dry thick callused areas ? No Induration noted Pain: denies pain Goals of Treatment: Moisture management with Durafiber AG? Left Leg Etiology: Venous wound Wound Bed: red moist wound bed Drainage / Odor: yellow drainage noted on dressing - No odor noted Edges: ? well defined and attached Shara wound: Hemosiderin staining noted - scar tissue noted - No Induration, Fluctuance or Warmth noted Pain: denies pain Goals of Treatment: Moisture management with Durafiber AG Recommendations: 1. Turn and Reposition every 2 hours and as needed for patient comfort.? Use pillows or wedges to support off loading positions. 2. Off Load all bony prominences with use of pillows and heel boots if needed.? Apply Preventative foams where needed. ? 3. Monitor for incontinence and moisture control, use barrier creams when needed for prevention and treatment. 4. Provide adequate and supplemental nutrition.? 5. Order low air loss mattress. 6. Maintain blood glucose levels per Providers order. 7. Left Plantar Foot and Left Lower Leg - Elevate lower legs - Off Load Pressure and limit ambulating on foot. Cleanse with saline, pat dry. ?Apply barrier cream to wound bed. Cover and pack wound bed with Durafiber AG, Cover with Dry gauze, ABD pad and wrap. Patient prefers sabine wrap to follow as it keeps the dressing in place per his statement. Change every other day. Recommend follow up out patient Wound Clinic at [address] [place] [id number] and to call for an appointment at time of discharge. [phone].? Recommend VNA services for home dressing care. Re-consult wound care Nurse for wound deterioration or wound changes.
[2024-09-24] MEDS: Morphine Sulfate 4 MG/ML CARTRIDGE 2 MG IVPUSH (16:45)
[2024-09-24 17:55] LABS: Glucose, Whole Blood 110 mg/dL (60-115)
[2024-09-24] MEDS: Enoxaparin Sodium 40 MG/0.4 ML SYRINGE SUBCUT (18:13)
[2024-09-24] MEDS: ondansetron HCL 4 MG/2 ML VIAL IVPUSH (18:13)
--- NOTE | 2024-09-24 19:29 | PC.NURSE ---
1605 POC 69. Ate snacks he had at bedside and ate 100% of dinner. POC rechecked after dinner 110. Dr. Kelly notified.
[2024-09-24 20:16] LABS: Glucose, Whole Blood 112 mg/dL (60-115)
[2024-09-24 21:03] VITALS: BP 144/75
[2024-09-24 23:26] VITALS: BP 164/74; PULSE 55; RESP 16; TEMP 36.4; O2SAT 96
[2024-09-25] MEDS: Piperacillin Sodium/Tazobactam 3.375 GM in 0.9 % Sodium Chloride 50 ML IV ×2 (05:36→12:33)
[2024-09-25 07:04] VITALS: BP 153/79; PULSE 50; RESP 16; TEMP 36.3; O2SAT 98
[2024-09-25 07:26] LABS: Glucose, Whole Blood 103 mg/dL (60-115)
[2024-09-25] MEDS: Doxycycline Hyclate 100 MG in 0.9 % Sodium Chloride 250 ML 166.67 MG IV (09:12)
[2024-09-25 09:14] VITALS: BP 128/72; PULSE 61
[2024-09-25] MEDS: 0.9 % Sodium Chloride Flush 3 ML SYRINGE IVFLUSH ×3 (09:15→23:43)
[2024-09-25] MEDS: methADONE HCl 20 MG/2 ML ORAL.CONC 80 MG PO (09:18)
[2024-09-25] MEDS: hydrALAZINE HCl 10 MG TABLET PO (09:21)
[2024-09-25] MEDS: dilTIAZem HCL CD 240 MG CAP.ER.DEG PO (09:21)
[2024-09-25 11:31] LABS: Glucose, Whole Blood 185 mg/dL (60-115)
[2024-09-25] MEDS: Insulin Lispro 100 UNIT/ML 3 ML VIAL SUBCUT ×2 (12:11→16:25)
--- NOTE | 2024-09-25 13:41 | MHC.CM.PN ---
Addendum entered by Oxana Ballesteros 09/26/24 08:30: REFERRAL FAXED TO THE WOUND CARE CLINIC ON 09/25/24 Addendum entered by Oxana Ballesteros 09/25/24 15:42: CM MET WITH PT TO DISCUSS DC PT REPORTS HE CANNOT DC TODAY NONE OF HIS [employer] ARE AVAILABLE HE REPORTS HIS SISTERS WORK HIS [employer] AND HE HAS 32 HOURS PER WEEK HE SAYS HE USES A [employer] FOR DME PT WILL DC TOMORROW MORNING VIA [employer] HE IS AWARE [facility] WILL CONTACT HIM FOR SOC AND THAT HE SHOULD FOLLOW UP WITH THE WOUND CLINIC CM HAS ATTEMPTED TO CONTACT THE WOUND CLINIC X 2, VM MESSAGE LEFT Original Note: PT MAY BE CLEARED TO DC TODAY [facility] WILL PROVIDE SN SERVICES A MESSAGE WAS LEFT WITH [facility] [place] [facility] REQUESTING A RETURN CALL TO SCHEDULE AN APPT
--- NOTE | 2024-09-25 15:27 | W.MHC.F2F ---
Service Date Service Date: 09/25/24 Encounter Date of encounter: 09/25/24 Encounter: Foot cellulitis, diabetes, hypertension Reasons for Services Signs and symptoms assessed: Monitor foot wound, any new fever or drainage, also monitor blood sugars and blood pressure at home. Reason for intermediate: CV/CP assess and/or care, diabetic teaching, monitoring of unstable blood sugar, medication management, medication treatment and teach disease management MD Overseeing Care: Mac Clarke Homebound: Leaving the home is medically contraindicated at this time without the asist of a device and/or another person due th the listed conditions above and below. Reason homebound: weakness related to hospital stay Homebound supporting statement: Patient has multiple comorbidities including diabetes hypertension, foot wound, cellulitis: Patient need help with lab draws, diabetic management, wound care, help with the appointments. Certification: Based on the above findings, I certify that this patient is confined to the home and needs intermittent intermediate care, physical therapy and/or speech therapy, or continues to need occupational therapy. The patient is under my care, and I have initiated the establishment of the plan of care. The patient will be followed by a physician who will periodically review the plan of care. Time Spent With Patient Time: Total time managing care of this patient today ____ minutes.
--- NOTE | 2024-09-25 15:29 | PM.DS ---
DS: Providers Provider Date of Service: 09/28/24 Date of admission: 09/21/24 17:19 Date of discharge: 09/28/24 Primary care physician: Mac Clarke MD Consults: 09/21/24 17:19 Consult to Infectious Diseases Routine Consulting Provider: [facility] Reason for consultation: diabetic foot ulcer ? osteo 09/22/24 07:40 Consult to General Surgery Routine Consulting Provider: [facility] General Surgeons Reason for consultation: dm foot infection Has provider been notified: No 09/22/24 08:00 Consult to Wound Care Routine Reason for consultation: Left Foot Diabetic wound Attending physician on discharge: Mina Kelly Discharging clinician: Mina Kelly DS: Diagnosis Discharge Diagnosis (1) Diabetic infection of left foot: Status: Acute (2) Open wound: Status: Acute DS: Summary Hospital Course Hospital Course: date of service and discharge:09/28/24 HPI:63-year-old male with a history of PVD, 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 His medical history also includes hypertension, hepatitis C (treated in 2009), and chronic wheelchair use. In July, he underwent revision of the transmetatarsal amputation stump with resection of the remaining 5th metatarsal at the tarsometatarsal joint. It is unclear if he has followed up with surgery since then, as sutures were still in place and removed in the ED. He reports increasing foot pain. While the wound does not appear grossly infected externally, his lab results show WBC 13, ESR 93, and CRP >3, raising concern for a deep infection. hospital course: Foot cellulitis: found to ahve leucocytosis ,foot xray done-shows likely foot swelling/ulceration ,blood culture sent - started IV antibiotics, seen by infectious disease and surgery, wound care: as per Id note Wound irritation/inflammation left foot TMA site,seems superficial at this point and no deep wound per Surgery,seen in April/May right stump OM and six weeks Ertapenem. Would not give mcfp IV here.Add Doxycycline cover MRSA and Zosyn 3-5 d and then discharge on po Augmentin and Doxycycline for a month.Prognosis for limb salvage guarded.'' as per surgery-Both the left foot wound as well as the left lower leg wound are granulating well and clean, recommended rest EKG, follow-up with Wound Clinic and surgery outpatient. patient switched to doxycycline 100 mg p.o. b.i.d. and Augmentin 875 mg p.o. b.i.d. for 1 month. Patient is to follow-up with Wound Care and surgery out patiently, please see wound care orders above as instructions. acute hyperkalemia : lisinopril stopped ,placed low potassium diet. hyperkalemia improving, moniter bmp outpatient. Diabetes: Fingersticks are fluctuating will cutdown Lantus to 10 units daily. Monitor fingersticks at home patient was strongly advised to compliance with the diet, if fingersticks are persistently above 200 range then may need to adjust Lantus out patiently. Hypertension: Fluctuatiing bp (high range ) -continue cardizem, adjusted hydralazine 50 mg po bid.moniter bp at home. Patient was strongly advised to compliance with medications as well as wound care instructions. As well as diabetic education was given. plan: Patient was strongly advised for diabetes control, blood pressure control as well as compliance with the medication and wound care as well as follow-up out patiently with surgery/wound care. mild acute hyperkalemia -low potassium diet added hydralazine 50 mg po bid for uncontrolled htn.moniter bp at home. Diabetes: Fingersticks are fluctuating will cutdown Lantus to 10 units daily. Monitor fingersticks at home patient was strongly advised to compliance with the diet, if fingersticks are persistently above 200 range then may need to adjust Lantus out patiently. plase see wound care instructions. Assessment and plan coordination time spent 40 minute above management discussed with the patient in detail length he understand in agreement with the above plan. Time Attestation Total time managing care of this patient today: 40 mintues. Discharge Coordination Time (in mins): 40 min Quality: Safe Use of Opioids Does Pt have an Active Cancer Diagnosis on the Problem List?: No Quality: Stroke Does the patient have a stroke diagnosis?: No Physical Exam Vital Signs: Vital Signs: Last Vital Signs BMI result Body Mass Index 33.1 vitals reviewed from 09/28/24 ,seems stable. General: AO X 3, no acute distress Resp: CTA bilateral CVS: S1,S2,RRR GI: +BS, NT, no distention skin -wound area -per suregry note-Left foot TMA stump with open wound towards the plantar aspect, granulating well, some tunneling but clean He was note of a superficial ulcer on the anterior aspect of the left lower leg as well DS: Data Data Completed and Pending Completed studies during hospitalization [Text1]: Procedures Detachment at Left 5th Toe, Complete, Open Approach (08/02/24) Detachment at Right Lower Leg, High, Open Approach (03/03/23) Excision of Left Foot Subcutaneous Tissue and Fascia, Open Approach (08/02/24) Insertion of Infusion Device into Superior Vena Cava, Percutaneous Approach (06/21/24) Introduction of Anesthetic Agent into Peripheral Nerves and Plexi, Percutaneous Approach (08/02/24) Ultrasonography of Superior Vena Cava, Guidance (06/21/24) Labs on day of discharge: Laboratory Results - last 24 hr 09/24/24 09/24/24 09/24/24 16:05 17:50 20:12 POC Glucose 69 110 112 09/25/24 09/25/24 07:09 11:26 POC Glucose 103 185 H Preliminary micro results at discharge 09/21/24 13:48 Blood Culture - Preliminary Blood - Venous No growth after 48 hours. 09/21/24 13:48 Blood Culture - Preliminary Blood - Venous No growth after 48 hours. Imaging Chest x-ray: Radiologist's impression: ITS Impressions Foot X-Ray 09/21/24 13:10 IMPRESSION: 1. Status post transmetatarsal amputation of the first through fourth digits. 2. Interval amputation of the fifth metatarsal. 3. Marked soft tissue swelling around the distal foot with a depression in the soft tissues at the base of the foot which may be secondary to an ulceration or dehisced wound (please correlate with physical exam). Electronically signed by: Arvind Mason MD 09/21/2024 03:26 PM [facility] Discharge Plan Discharge Anticipated Discharge Date/Time: 09/25/24 15:18 Patient Disposition: Home Health Service Discharge Diagnosis: foot cellulitis Referrals: [facility] [Other] - 1 Week Mac Clarke MD [Primary Care Provider] - 1 Week Discharge Medications: New amoxicillin-pot clavulanate 875-125 mg tablet 1 tab PO BID Qty: 60 0RF doxycycline hyclate 100 mg capsule 100 mg PO BID Qty: 60 0RF hydralazine 50 mg Tablet 50 mg PO BID Qty: 120 0RF Protocol: Hold for SBP< HOLD for SBP < : 90 Continued (DME) Off loading shoe large See Rx Instructions .Route .MEDSUPPLY Qty: 1 0RF Rx Instructions: As directed ([facility]) Xeroform Petrolatum Dressing 1 X 8 bandage See Rx Instructions .ROUTE .MEDSUPPLY Qty: 200 0RF Rx Instructions: apply to foot wound daily (DME) adhesive tape 2 X 10 -yard tape See Rx Instructions .ROUTE .MEDSUPPLY Qty: 1 3RF Rx Instructions: apply to foot wound daily (DME) prosthetic Kit See Rx Instructions .Route Qty: 1 0RF Rx Instructions: As directed ([facility]) Bedside commode See Rx Instructions .Route .MEDSUPPLY Qty: 1 0RF Rx Instructions: As directed ([facility]) Shower Chair See Rx Instructions .Route .MEDSUPPLY Qty: 1 0RF Rx Instructions: As directed ([facility]) Walker See Rx Instructions .Route .MEDSUPPLY Qty: 1 0RF Rx Instructions: As directed amitriptyline 50 mg Tablet 50 mg PO BEDTIME PRN (Reason: Depression) methadone 10 mg/mL Concentrate 80 mg PO DAILY Rx Instructions: [facility] ([facility]) Wheel chair Kit See Rx Instructions .Route Qty: 1 0RF Rx Instructions: As directed ([facility]) FreeStyle Lite Strips Strip See Rx Instructions Not Applicable TID Qty: 10 Rx Instructions: As directed ([facility]) insulin syringe-needle U-100 [BD Insulin Syringe Ultra-Fine] 1 mL 31 gauge x 5/16 syringe See Rx Instructions .ROUTE DAILY Qty: 10 Rx Instructions: As directed ([facility]) Band-Aid Rolled Gauze 4 X 2.5 -yard bandage See Rx Instructions .ROUTE .MEDSUPPLY Qty: 30 3RF Rx Instructions: apply to foot wound daily (DME) Band-Aid Gauze Pads 3 X 3 bandage See Rx Instructions .ROUTE .MEDSUPPLY Qty: 25 3RF Rx Instructions: apply to foot wound daily Changed diltiazem HCl 180 mg Capsule,Extended Release 24 Hr 240 mg PO DAILY Qty: 120 0RF insulin glargine [Lantus U-100 Insulin] 100 unit/mL solution 10 unit subcut DAILY Qty: 1 0RF Discharge Orders: Discharge Order (Routine); Ordered 09/28/24 Ordered By: Mina Kelly Diet: low potassium diet Activity on Discharge: As tolerated Stand Alone Forms: Patient Portal Discharge page Print Language: Syriac Other Ambulatory Orders: Basic Metabolic Panel (Routine) Timeframe: 1 Week Facility: [facility] - Location: Laboratory Ordered By: Mina Kelly Hemoglobin A1c (Routine) Timeframe: 1 Week Facility: [facility] - Location: Laboratory Ordered By: Mina Kelly Activity Restrictions/Additional Instructions: Topical Wound Care Recommendations: Left Plantar Foot and Left Lower Leg - Elevate lower legs - Off Load Pressure and limit ambulating on foot. Cleanse with saline, pat dry. ?Apply barrier cream to wound bed. Cover and pack wound bed with Durafiber AG, Cover with Dry gauze, ABD pad and wrap. Patient prefers sabine wrap to follow as it keeps the dressing in place per his statement. Change every other day. Recommend follow up out patient Wound Clinic at [address] [place] [phone] and to call for an appointment at time of discharge. [phone].? Recommend [facility]NA services for home dressing care. Care Plan Goals: Foot cellulitis improving-given IV antibiotics, seen by infectious disease and surgery, wound care: Recommended doxycycline 100 mg p.o. b.i.d. and Augmentin 875 mg p.o. b.i.d. for 1 month. consider monitering cbc,cmp q weekly while on antibiotics. Patient is to follow-up with Wound Care and surgery out patiently, please see wound care orders above as instructions. Diabetes: Fingersticks are fluctuating will cutdown Lantus to 10 units daily. Monitor fingersticks at home patient was strongly advised to compliance with the diet, if fingersticks are persistently above 200 range then may need to adjust Lantus out patiently. Hypertension: Fluctuatiing bp (high range ) -continue cardizem, adjusted hydralazine 50 mg po bid.moniter bp at home. Patient was strongly advised to compliance with medications as well as wound care instructions. As well as diabetic education was given. above d/w patient with staff present. Health Concerns: As above Plan of Treatment: as above. Assessment: As above. Patient Instructions: MRSA (Methicillin-Resistant Staphylococcus Aureus) (GEN) Discharge Date/Time: 09/28/24 13:55
[2024-09-25 15:40] VITALS: BP 156/62; PULSE 58; RESP 16; TEMP 36.9; O2SAT 96
[2024-09-25] MEDS: Amoxicillin/Potassium Clav 875 MG TABLET PO (15:48)
[2024-09-25] MEDS: Doxycycline Monohydrate 100 MG CAPSULE PO (15:49)
--- NOTE | 2024-09-25 16:12 | PM.PNGS ---
Subjective Subjective Date of Service: 09/25/24 Interval history: Has chronic foot pain Denies other new complaints No fever Physical Exam Vital Signs: Vital Signs: Last Vital Signs Temp 98.4 F 09/25/24 15:40 Pulse 58 09/25/24 15:40 Resp 16 09/25/24 15:40 BP 156/62 H 09/25/24 15:40 Pulse Ox 96 09/25/24 15:40 O2 Del Method Room Air 09/25/24 15:40 BMI result Body Mass Index 33.1 Const: General: comfortable and no acute distress Resp: Effort & Inspection: normal respiratory effort Cardio: Rate: regular rate Extrem: Other: Left foot TMA stump with open wound towards the plantar aspect, granulating well, some tunneling but clean He was note of a superficial ulcer on the anterior aspect of the left lower leg as well Objective Data Active Medications Acetaminophen (Acetaminophen 325 Mg Tablet) 650 mg PO Q6H PRN PRN Reason: Pain, Mild (Pain Scale 1-3), fever or headache Last Admin: 09/22/24 18:15 Dose: 650 mg Documented By: VANE Al Hydroxide/Mg Hydroxide (Magnesium Hydrox/Alum Hydrox 30 Ml Oral.Susp) 30 ml PO Q4H PRN PRN Reason: Heartburn Amitriptyline HCl (Amitriptyline Hcl 50 Mg Tablet) 50 mg PO BEDTIME PRN PRN Reason: Depression Calcium Carbonate (Calcium Carbonate 750 Mg Tab.Chew) 750 mg PO Q4H PRN PRN Reason: Heartburn Diltiazem HCl (Diltiazem Hcl Cd 240 Mg Cap.Er.Deg) 240 mg PO DAILY [facility]; Protocol Last Admin: 09/25/24 09:21 Dose: 240 mg Documented By: CARLOS Enoxaparin Sodium (Enoxaparin Sodium 40 Mg/0.4 Ml Syringe) 40 mg SUBCUT Q24H [facility] Last Admin: 09/24/24 18:13 Dose: 40 mg Documented By: HÉCTOR Glucose (Glucose Gel 15 Gm Gel..Gram.) 15 gm PO Q15M PRN; Protocol PRN Reason: per Hypoglycemia Standing Ord. Dextrose (D10) 250 mls @ 750 mls/hr IV Q15M PRN; Protocol PRN Reason: per Hypoglycemia Standing Ord. Insulin Glargine (Insulin Glargine,Hum.Rec.Anlog 100 Unit/Ml 10 Ml Vial) 40 unit SUBCUT DAILY [facility] Last Admin: 09/24/24 09:33 Dose: 40 unit Documented By: HÉCTOR Insulin Human Lispro (Insulin Lispro 100 Unit/Ml 3 Ml Vial) 0 unit SUBCUT QIDACHS [facility]; Protocol Last Admin: 09/25/24 12:11 Dose: 2 unit Documented By: CARLOS Magnesium Hydroxide (Milk Of Magnesia 30 Ml Oral.Susp) 30 ml PO DAILY PRN PRN Reason: Constipation Melatonin (Melatonin 3 Mg Tablet) 6 mg PO BEDTIME PRN PRN Reason: Insomnia Methadone HCl (Methadone Hcl 20 Mg/2 Ml Oral.Conc) 80 mg PO DAILY [facility] Last Admin: 09/25/24 09:18 Dose: 80 mg Documented By: CARLOS Co-signed By: XIOMY Morphine Sulfate (Morphine Sulfate 4 Mg/Ml Cartridge) 2 mg IVPUSH Q6H PRN; Protocol PRN Reason: Pain, Severe (Pain Scale 7-10) Last Admin: 09/24/24 16:45 Dose: 2 mg Documented By: HÉCTOR Ondansetron HCl (Ondansetron Hcl 4 Mg/2 Ml Vial) 4 mg IVPUSH Q8H PRN PRN Reason: Nausea and Vomiting Last Admin: 09/24/24 18:13 Dose: 4 mg Documented By: HÉCTOR Sodium Chloride (0.9 % Sodium Chloride Flush 3 Ml Syringe) 3 ml IVFLUSH QSHIFT [facility] Last Admin: 09/25/24 15:49 Dose: 3 ml Documented By: CARLOS Labs 09/21/24 13:48 09/24/24 14:32 Labs: Laboratory Results - last 24 hr 09/24/24 09/24/24 09/25/24 17:50 20:12 07:09 POC Glucose 110 112 103 09/25/24 11:26 POC Glucose 185 H Procedures Date of Service Date of Service: 09/25/24 Progress Note: A&P Assessment and plan (1) Open wound: Status: Acute Assessment and Plan: Both the left foot wound as well as the left lower leg wound are granulating well and clean I have changed both dressings I applied silver alginate Continue same dressing change at home Follow up in the office and with the Wound Clinic Time Spent With Patient Time: Total time managing care of this patient today ____ minutes. Quality Stroke Does the patient have a stroke diagnosis?: No VTE Prior VTE?: No VTE Risk Level:: Medical - moderate - high VTE Device Contraindication: Treatment Not Indicated VTE Drug Contraindication: N/A - Med Ordered
[2024-09-25 16:23] LABS: Glucose, Whole Blood 168 mg/dL (60-115)
[2024-09-25] MEDS: Enoxaparin Sodium 40 MG/0.4 ML SYRINGE SUBCUT (16:25)
[2024-09-25 20:02] LABS: Glucose, Whole Blood 147 mg/dL (60-115)
[2024-09-25 23:30] VITALS: BP 174/80; PULSE 58; RESP 16; TEMP 36.3; O2SAT 98
[2024-09-25] MEDS: Morphine Sulfate 4 MG/ML CARTRIDGE 2 MG IVPUSH (23:42)
[2024-09-26 07:04] VITALS: BP 186/86; PULSE 53; RESP 16; TEMP 36.4; O2SAT 98
--- NOTE | 2024-09-26 07:11 | P.PNIM_ITS ---
Subjective Subjective Date of Service: 09/26/24 Interval History: foot cellulitis Review of Systems seems similar Review of Systems: Yes all other systems are reviewed and are negative Physical Exam 2 Vital Signs: Vital Signs: Last Vital Signs BMI result Body Mass Index 33.1 vitals reviewed from09/25/24. General: AO X 3, no acute distress Resp: CTA bilateral CVS: S1,S2,RRR GI: +BS, NT, no distention skin -seems similar ( please see h&P note) Objective Data Active Medications Acetaminophen (Acetaminophen 325 Mg Tablet) 650 mg PO Q6H PRN PRN Reason: Pain, Mild (Pain Scale 1-3), fever or headache Last Admin: 09/22/24 18:15 Dose: 650 mg Documented By: VANE Al Hydroxide/Mg Hydroxide (Magnesium Hydrox/Alum Hydrox 30 Ml Oral.Susp) 30 ml PO Q4H PRN PRN Reason: Heartburn Amitriptyline HCl (Amitriptyline Hcl 50 Mg Tablet) 50 mg PO BEDTIME PRN PRN Reason: Depression Calcium Carbonate (Calcium Carbonate 750 Mg Tab.Chew) 750 mg PO Q4H PRN PRN Reason: Heartburn Diltiazem HCl (Diltiazem Hcl Cd 240 Mg Cap.Er.Deg) 240 mg PO DAILY [facility]; Protocol Last Admin: 09/25/24 09:21 Dose: 240 mg Documented By: CARLOS Enoxaparin Sodium (Enoxaparin Sodium 40 Mg/0.4 Ml Syringe) 40 mg SUBCUT Q24H [facility] Last Admin: 09/25/24 16:25 Dose: 40 mg Documented By: CARLOS Glucose (Glucose Gel 15 Gm Gel..Gram.) 15 gm PO Q15M PRN; Protocol PRN Reason: per Hypoglycemia Standing Ord. Dextrose (D10) 250 mls @ 750 mls/hr IV Q15M PRN; Protocol PRN Reason: per Hypoglycemia Standing Ord. Insulin Glargine (Insulin Glargine,Hum.Rec.Anlog 100 Unit/Ml 10 Ml Vial) 40 unit SUBCUT DAILY [facility] Last Admin: 09/24/24 09:33 Dose: 40 unit Documented By: HÉCTOR Insulin Human Lispro (Insulin Lispro 100 Unit/Ml 3 Ml Vial) 0 unit SUBCUT QIDACHS [facility]; Protocol Last Admin: 09/25/24 20:34 Dose: Not Given Documented By: KAREN Non-Admin Reason: No Insulin Coverage Comments: POC= 147 Magnesium Hydroxide (Milk Of Magnesia 30 Ml Oral.Susp) 30 ml PO DAILY PRN PRN Reason: Constipation Melatonin (Melatonin 3 Mg Tablet) 6 mg PO BEDTIME PRN PRN Reason: Insomnia Methadone HCl (Methadone Hcl 20 Mg/2 Ml Oral.Conc) 80 mg PO DAILY [facility] Last Admin: 09/25/24 09:18 Dose: 80 mg Documented By: CARLOS Co-signed By: XIOMY Morphine Sulfate (Morphine Sulfate 4 Mg/Ml Cartridge) 2 mg IVPUSH Q6H PRN; Protocol PRN Reason: Pain, Severe (Pain Scale 7-10) Last Admin: 09/25/24 23:42 Dose: 2 mg Documented By: KAREN Ondansetron HCl (Ondansetron Hcl 4 Mg/2 Ml Vial) 4 mg IVPUSH Q8H PRN PRN Reason: Nausea and Vomiting Last Admin: 09/24/24 18:13 Dose: 4 mg Documented By: HÉCTOR Sodium Chloride (0.9 % Sodium Chloride Flush 3 Ml Syringe) 3 ml IVFLUSH QSHIFT [facility] Last Admin: 09/25/24 23:43 Dose: 3 ml Documented By: KAREN Labs 09/21/24 13:48 09/24/24 14:32 Labs: Laboratory Results - last 24 hr 09/25/24 09/25/24 09/25/24 07:09 11:26 16:18 POC Glucose 103 185 H 168 H 09/25/24 19:58 POC Glucose 147 H Assessment and Plan (1) Diabetic infection of left foot: Status: Acute Assessment and Plan: date of service :09/25/24 63-year-old male with a history of PVD, 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 His medical history also includes hypertension, hepatitis C (treated in 2009), and chronic wheelchair use. In July, he underwent revision of the transmetatarsal amputation stump with resection of the remaining 5th metatarsal at the tarsometatarsal joint. It is unclear if he has followed up with surgery since then, as sutures were still in place and removed in the ED. He reports increasing foot pain. While the wound does not appear grossly infected externally, his lab results show WBC 13, ESR 93, and CRP >3, raising concern for a deep infection. Cellulitis of chronic non healing diabetic left foot ulcer esr and crp elevated blood cultures pending vanco levels improving to 8.9(09/24) surgery eval noted-wound granulating/no bone exposed . iD eval -Wound irritation/inflammation left foot TMA site,seems superficial at this point and no deep wound per Surgery continue doxycycline and continue zosyn bmp Insulin-dependent type 2 diabetes Sliding-scale insulin, Lantus Paroxysmal AFib Continue diltiazem Not on anticoagulation HTn :somewhat uncontrolled continue hydralazine to 10 mg po bid and cardizem to 240 mg daily. Opioid use disorder Continue methadone Chronic normocytic anemia Stable, at baseline Full Code DVT Prophylaxis: lovenox ongoing need hospitalization for treatment of worsening chronic diabetic foot infection with cellulitis - need administration of IV antibiotics ,htn meds adjustment and moniter renal function . (2) Open wound: Status: Acute Quality Stroke Does the patient have a stroke diagnosis?: No VTE Prior VTE?: No VTE Risk Level:: Medical - moderate - high VTE Device Contraindication: Treatment Not Indicated VTE Drug Contraindication: N/A - Med Ordered
[2024-09-26 07:43] LABS: Glucose, Whole Blood 108 mg/dL (60-115)
[2024-09-26] MEDS: methADONE HCl 20 MG/2 ML ORAL.CONC 80 MG PO (08:03)
[2024-09-26] MEDS: 0.9 % Sodium Chloride Flush 3 ML SYRINGE IVFLUSH ×3 (08:07→19:51)
[2024-09-26 08:11] VITALS: BP 182/85; PULSE 57
[2024-09-26] MEDS: lisinopriL 10 MG TABLET PO (09:09)
[2024-09-26] MEDS: dilTIAZem HCL CD 180 MG CAP.ER.24H PO (09:09)
[2024-09-26 11:12] LABS: Glucose, Whole Blood 206 mg/dL (60-115)
[2024-09-26] MEDS: Insulin Lispro 100 UNIT/ML 3 ML VIAL SUBCUT (12:03)
[2024-09-26] MEDS: Acetaminophen 325 MG TABLET 650 MG PO (12:04)
[2024-09-26 12:11] VITALS: BP 178/80
[2024-09-26] MEDS: hydrALAZINE HCl 10 MG TABLET PO ×2 (12:47→19:51)
[2024-09-26] MEDS: Doxycycline Monohydrate 100 MG CAPSULE PO (12:48)
--- NOTE | 2024-09-26 14:19 | MHC.CM.PN ---
Addendum entered by Oxana Ballesteros 09/27/24 15:20: CM MET WITH PT TO DETERMINE HOW HE GETS HIS METHADONE HE REPORTS A RN FROM [facility] GOES TO HIS HOUSE Q FEW DAYS AND HE HAS A LOCK BOX IT IS STORED IN HE CONFIRMS HE DOES HAVE UNUSED METHADONE AT HIS MOTHERS HOME AND UNDERSTANDS HE WILL LIKELY NEED TO ACCESS THAT SO THE RN CAN RETURN IT A RETURN REFERRAL WAS SENT TO [facility] TO DETERMINE IF THEY WILL BE ABLE TO SEE PT AT HIS [facility] ADDRESS WHERE HE WILL BE STAYING TEMPORARILY POST DC PT WILL DC TO: [address] [facility] Addendum entered by Oxana Ballesteros 09/27/24 07:59: PT HAS NO BED OFFERS AT THIS TIME, 8 SNFS HAVE DECLINED, [facility] WILL REASSESS ON SATURDAY, AND 3 OTHERS HAVE NOT PROVIDED A RESPONSE. CM WILL EXPAND REFERRAL Original Note: CM EMT WITH PT AND HIS DAUGHTER THEY REPORT PT WAS STAYING WITH HIS MOTHER HOWEVER SHE IS NOW GOING TO A SNF AND HE CANNOT RETURN AT THIS TIME CM INFORMED THEM THE ONLY POTENTIAL OPTIONS WOULD BE SNF PLACEMENT PT IS NOT INDEPENDENT ENOUGH FOR PRISON PLACEMENT PT AGREED TO ALLOW CM TO MAKE REFERRALS TO DETERMINE WHAT SNFS MAY BE AVAILABLE HIS DAUGHTER WILL ALSO CONTACT OTHER FAMILY MEMBERS TO DETERMINE IF THEY CAN STAY WITH ANYONE (DAUGHTER IS ALSO HOMELESS) BROAD REFERRAL PLACED
[2024-09-26 15:03] VITALS: BP 172/71; PULSE 62; RESP 18; TEMP 36.6; O2SAT 97
--- NOTE | 2024-09-26 15:40 | P.PNIM_ITS ---
Subjective Subjective Date of Service: 09/26/24 Interval History: foot cellulitis ,uncontrolled htn Review of Systems feeling better Physical Exam 2 Vital Signs: Vital Signs: Last Vital Signs Temp 97.8 F 09/26/24 15:03 Pulse 62 09/26/24 15:03 Resp 18 09/26/24 15:03 BP 172/71 H 09/26/24 15:03 Pulse Ox 97 09/26/24 15:03 O2 Del Method Room Air 09/26/24 15:03 BMI result Body Mass Index 33.1 General: AO X 3, no acute distress Resp: CTA bilateral CVS: S1,S2,RRR GI: +BS, NT, no distention skin -seems similar ( please see h&P note) Objective Data Active Medications Acetaminophen (Acetaminophen 325 Mg Tablet) 650 mg PO Q6H PRN PRN Reason: Pain, Mild (Pain Scale 1-3), fever or headache Last Admin: 09/26/24 12:04 Dose: 650 mg Documented By: TULIO Al Hydroxide/Mg Hydroxide (Magnesium Hydrox/Alum Hydrox 30 Ml Oral.Susp) 30 ml PO Q4H PRN PRN Reason: Heartburn Amitriptyline HCl (Amitriptyline Hcl 50 Mg Tablet) 50 mg PO BEDTIME PRN PRN Reason: Depression Calcium Carbonate (Calcium Carbonate 750 Mg Tab.Chew) 750 mg PO Q4H PRN PRN Reason: Heartburn Diltiazem HCl (Diltiazem Hcl Cd 180 Mg Cap.Er.24h) 180 mg PO DAILY [facility]; Protocol Last Admin: 09/26/24 09:09 Dose: 180 mg Documented By: TULIO Comments: aware of HR, okay to give Doxycycline Monohydrate (Doxycycline Monohydrate 100 Mg Capsule) 100 mg PO Q12H [facility] Last Admin: 09/26/24 12:48 Dose: 100 mg Documented By: TULIO Enoxaparin Sodium (Enoxaparin Sodium 40 Mg/0.4 Ml Syringe) 40 mg SUBCUT Q24H [facility] Last Admin: 09/25/24 16:25 Dose: 40 mg Documented By: CARLOS Glucose (Glucose Gel 15 Gm Gel..Gram.) 15 gm PO Q15M PRN; Protocol PRN Reason: per Hypoglycemia Standing Ord. Hydralazine HCl (Hydralazine Hcl 10 Mg Tablet) 10 mg PO BID [facility]; Protocol Last Admin: 09/26/24 12:47 Dose: 10 mg Documented By: TULIO Hydralazine HCl (Hydralazine Hcl 20 Mg/Ml Vial) 10 mg IVPUSH Q6H PRN; Protocol PRN Reason: htn Dextrose (D10) 250 mls @ 750 mls/hr IV Q15M PRN; Protocol PRN Reason: per Hypoglycemia Standing Ord. Insulin Glargine (Insulin Glargine,Hum.Rec.Anlog 100 Unit/Ml 10 Ml Vial) 40 unit SUBCUT DAILY [facility] Last Admin: 09/24/24 09:33 Dose: 40 unit Documented By: HÉCTOR Insulin Human Lispro (Insulin Lispro 100 Unit/Ml 3 Ml Vial) 0 unit SUBCUT QIDACHS [facility]; Protocol Last Admin: 09/26/24 12:03 Dose: 4 unit Documented By: TULIO Magnesium Hydroxide (Milk Of Magnesia 30 Ml Oral.Susp) 30 ml PO DAILY PRN PRN Reason: Constipation Melatonin (Melatonin 3 Mg Tablet) 6 mg PO BEDTIME PRN PRN Reason: Insomnia Methadone HCl (Methadone Hcl 20 Mg/2 Ml Oral.Conc) 80 mg PO DAILY [facility] Last Admin: 09/26/24 08:03 Dose: 80 mg Documented By: TULIO Co-signed By: ARIADNA Morphine Sulfate (Morphine Sulfate 4 Mg/Ml Cartridge) 2 mg IVPUSH Q6H PRN; Protocol PRN Reason: Pain, Severe (Pain Scale 7-10) Last Admin: 09/25/24 23:42 Dose: 2 mg Documented By: KAREN Ondansetron HCl (Ondansetron Hcl 4 Mg/2 Ml Vial) 4 mg IVPUSH Q8H PRN PRN Reason: Nausea and Vomiting Last Admin: 09/24/24 18:13 Dose: 4 mg Documented By: HÉCTOR Sodium Chloride (0.9 % Sodium Chloride Flush 3 Ml Syringe) [facility] Last Admin: 09/26/24 08:07 Dose: 3 ml Documented By: TULIO Labs 09/21/24 13:48 09/24/24 14:32 Labs: Laboratory Results - last 24 hr 09/25/24 09/25/24 09/26/24 16:18 19:58 07:08 POC Glucose 168 H 147 H 108 09/26/24 11:06 POC Glucose 206 H Assessment and Plan (1) Diabetic infection of left foot: Status: Acute Assessment and Plan: 63-year-old male with a history of PVD, 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 His medical history also includes hypertension, hepatitis C (treated in 2009), and chronic wheelchair use. In July, he underwent revision of the transmetatarsal amputation stump with resection of the remaining 5th metatarsal at the tarsometatarsal joint. It is unclear if he has followed up with surgery since then, as sutures were still in place and removed in the ED. He reports increasing foot pain. While the wound does not appear grossly infected externally, his lab results show WBC 13, ESR 93, and CRP >3, raising concern for a deep infection. Cellulitis of chronic non healing diabetic left foot ulcer esr and crp elevated blood cultures pending vanco levels improving to 8.9(09/24) surgery eval noted-wound granulating/no bone exposed . iD eval -Wound irritation/inflammation left foot TMA site,seems superficial at this point and no deep wound per Surgery continue doxycycline and continue zosyn bmp Insulin-dependent type 2 diabetes Sliding-scale insulin, Lantus Paroxysmal AFib Continue diltiazem Not on anticoagulation HTn :somewhat uncontrolled continue hydralazine to 10 mg po bid and cardizem to 180 mg daily,added lisinopril 10 mg qd.. Opioid use disorder Continue methadone Chronic normocytic anemia Stable, at baseline Full Code DVT Prophylaxis: lovenox ongoing need hospitalization for treatment of worsening chronic diabetic foot infection with cellulitis - on po antibiotics ,htn meds adjustment and moniter .awiting placement. (2) Open wound: Status: Acute Quality Stroke Does the patient have a stroke diagnosis?: No VTE Prior VTE?: No VTE Risk Level:: Medical - moderate - high VTE Device Contraindication: Treatment Not Indicated VTE Drug Contraindication: N/A - Med Ordered
[2024-09-26 16:15] LABS: Glucose, Whole Blood 135 mg/dL (60-115)
[2024-09-26] MEDS: Enoxaparin Sodium 40 MG/0.4 ML SYRINGE SUBCUT (18:42)
[2024-09-26 19:07] VITALS: BP 172/80; PULSE 54; RESP 16; TEMP 36.6; O2SAT 97
[2024-09-26 20:29] LABS: Glucose, Whole Blood 230 mg/dL (60-115)
[2024-09-26 23:31] VITALS: BP 175/84; PULSE 51; RESP 16; TEMP 36; O2SAT 98
[2024-09-27] VITALS (9 sets, daily range): BP systolic 159–196; BP diastolic 70–84; PULSE 52–55; RESP 15–65; TEMP 36.6–36.8; O2SAT 98–100
[2024-09-27] MEDS: Doxycycline Monohydrate 100 MG CAPSULE PO ×2 (00:18→13:17)
[2024-09-27] MEDS: hydrALAZINE HCl 20 MG/ML VIAL 10 MG IVPUSH ×3 (00:18→23:43)
[2024-09-27 07:32] LABS: Glucose, Whole Blood 159 mg/dL (60-115)
[2024-09-27] MEDS: Acetaminophen 325 MG TABLET 650 MG PO (07:37)
[2024-09-27] MEDS: Insulin Lispro 100 UNIT/ML 3 ML VIAL SUBCUT ×3 (07:37→21:28)
[2024-09-27] MEDS: hydrALAZINE HCl 10 MG TABLET PO (07:37)
[2024-09-27] MEDS: dilTIAZem HCL CD 180 MG CAP.ER.24H PO (07:38)
[2024-09-27] MEDS: methADONE HCl 20 MG/2 ML ORAL.CONC 80 MG PO (07:39)
[2024-09-27] MEDS: 0.9 % Sodium Chloride Flush 3 ML SYRINGE IVFLUSH ×3 (07:45→21:29)
[2024-09-27 08:33] LABS: Anion Gap 15 (12-20); Blood Urea Nitrogen 22 mg/dL (9-16); Calcium 9.5 mg/dL (8.4-10.2); Carbon Dioxide 29 mmol/L (22-29); Chloride 104 mmol/L (96-108); Creatinine Clr Calc Pharmacy 90.8; Estimated Glomerular Filt Rate > 60; Glucose Random 166 mg/dL (60-115); Potassium 5.5 mmol/L (3.3-5.1); Sodium 142 mmol/L (135-145)
[2024-09-27] MEDS: Sodium Zirconium Cyclosilicate 5 GM POWD.PACK PO (09:35)
[2024-09-27] MEDS: hydrALAZINE HCl 25 MG TABLET PO ×3 (09:36→21:29)
[2024-09-27 11:17] LABS: Glucose, Whole Blood 189 mg/dL (60-115)
[2024-09-27 11:27] LABS: Potassium 5.2 mmol/L (3.3-5.1)
--- NOTE | 2024-09-27 12:25 | HO.PM.IMPN ---
Subjective Subjective Date of Service: 09/27/24 Interval History: foot cellulitis ,uncontrolled htn Review of Systems foot area seems similar denies any chest pain or sob Physical Exam Vital Signs: Vital Signs: Last Vital Signs Temp 97.8 F 09/27/24 07:05 Pulse 55 09/27/24 07:05 Resp 16 09/27/24 07:05 BP 189/83 H 09/27/24 09:36 Pulse Ox 100 09/27/24 07:05 O2 Del Method Room Air 09/27/24 07:05 BMI result Body Mass Index 33.1 General: AO X 3, no acute distress Resp: CTA bilateral CVS: S1,S2,RRR GI: +BS, NT, no distention skin -seems similar ( please see h&P note) Objective Data Active Medications Acetaminophen (Acetaminophen 325 Mg Tablet) 650 mg PO Q6H PRN PRN Reason: Pain, Mild (Pain Scale 1-3), fever or headache Last Admin: 09/27/24 07:37 Dose: 650 mg Documented By: TULIO Al Hydroxide/Mg Hydroxide (Magnesium Hydrox/Alum Hydrox 30 Ml Oral.Susp) 30 ml PO Q4H PRN PRN Reason: Heartburn Amitriptyline HCl (Amitriptyline Hcl 50 Mg Tablet) 50 mg PO BEDTIME PRN PRN Reason: Depression Calcium Carbonate (Calcium Carbonate 750 Mg Tab.Chew) 750 mg PO Q4H PRN PRN Reason: Heartburn Diltiazem HCl (Diltiazem Hcl Cd 180 Mg Cap.Er.24h) 180 mg PO DAILY [facility]; Protocol Last Admin: 09/27/24 07:38 Dose: 180 mg Documented By: TULIO Comments: okay to give per Doxycycline Monohydrate (Doxycycline Monohydrate 100 Mg Capsule) 100 mg PO Q12H [facility] Last Admin: 09/27/24 00:18 Dose: 100 mg Documented By: REESE Enoxaparin Sodium (Enoxaparin Sodium 40 Mg/0.4 Ml Syringe) 40 mg SUBCUT Q24H [facility] Last Admin: 09/26/24 18:42 Dose: 40 mg Documented By: TULIO Glucose (Glucose Gel 15 Gm Gel..Gram.) 15 gm PO Q15M PRN; Protocol PRN Reason: per Hypoglycemia Standing Ord. Hydralazine HCl (Hydralazine Hcl 20 Mg/Ml Vial) 10 mg IVPUSH Q6H PRN; Protocol PRN Reason: htn Last Admin: 09/27/24 00:18 Dose: 10 mg Documented By: REESE Hydralazine HCl (Hydralazine Hcl 25 Mg Tablet) 25 mg PO TID [facility]; Protocol Dextrose (D10) 250 mls @ 750 mls/hr IV Q15M PRN; Protocol PRN Reason: per Hypoglycemia Standing Ord. Insulin Glargine (Insulin Glargine,Hum.Rec.Anlog 100 Unit/Ml 10 Ml Vial) 40 unit SUBCUT DAILY [facility] Last Admin: 09/24/24 09:33 Dose: 40 unit Documented By: HÉCTOR Insulin Human Lispro (Insulin Lispro 100 Unit/Ml 3 Ml Vial) 0 unit SUBCUT QIDACHS [facility]; Protocol Last Admin: 09/27/24 11:48 Dose: 2 unit Documented By: TULIO Magnesium Hydroxide (Milk Of Magnesia 30 Ml Oral.Susp) 30 ml PO DAILY PRN PRN Reason: Constipation Melatonin (Melatonin 3 Mg Tablet) 6 mg PO BEDTIME PRN PRN Reason: Insomnia Methadone HCl (Methadone Hcl 20 Mg/2 Ml Oral.Conc) 80 mg PO DAILY [facility] Last Admin: 09/27/24 07:39 Dose: 80 mg Documented By: TULIO Co-signed By: MARISA Morphine Sulfate (Morphine Sulfate 4 Mg/Ml Cartridge) 2 mg IVPUSH Q6H PRN; Protocol PRN Reason: Pain, Severe (Pain Scale 7-10) Last Admin: 09/25/24 23:42 Dose: 2 mg Documented By: KAREN Ondansetron HCl (Ondansetron Hcl 4 Mg/2 Ml Vial) 4 mg IVPUSH Q8H PRN PRN Reason: Nausea and Vomiting Last Admin: 09/24/24 18:13 Dose: 4 mg Documented By: HÉCTOR Sodium Chloride (0.9 % Sodium Chloride Flush 3 Ml Syringe) 3 ml IVFLUSH QSHIFT [facility] Last Admin: 09/27/24 07:45 Dose: 3 ml Documented By: TULIO Labs 09/21/24 13:48 09/27/24 11:13 Labs: Laboratory Results - last 24 hr 09/26/24 09/26/24 09/27/24 16:07 20:25 07:07 Hold Purple Top Anion Gap Estim Creat Clear Calc Estimated GFR POC Glucose 135 H 230 H 159 H Random Glucose Calcium 09/27/24 09/27/24 07:32 11:04 Hold Purple Top SEE NOTE Anion Gap 15 Estim Creat Clear Calc 90.8 Estimated GFR > 60 POC Glucose 189 H Random Glucose 166 H Calcium 9.5 D Microbiology Microbiology Results: Microbiology 09/21/24 13:48 Blood Culture - Final Blood - Venous No growth after 5 days. 09/21/24 13:48 Blood Culture - Final Blood - Venous No growth after 5 days. Assessment and Plan (1) Diabetic infection of left foot: Status: Acute Assessment and Plan: 63-year-old male with a history of PVD, 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 His medical history also includes hypertension, hepatitis C (treated in 2009), and chronic wheelchair use. In July, he underwent revision of the transmetatarsal amputation stump with resection of the remaining 5th metatarsal at the tarsometatarsal joint. It is unclear if he has followed up with surgery since then, as sutures were still in place and removed in the ED. He reports increasing foot pain. While the wound does not appear grossly infected externally, his lab results show WBC 13, ESR 93, and CRP >3, raising concern for a deep infection. Cellulitis of chronic non healing diabetic left foot ulcer esr and crp elevated blood cultures pending vanco levels improving to 8.9(09/24) surgery eval noted-wound granulating/no bone exposed . iD eval -Wound irritation/inflammation left foot TMA site,seems superficial at this point and no deep wound per Surgery continue doxycycline and continue zosyn bmp Insulin-dependent type 2 diabetes Sliding-scale insulin, Lantus Paroxysmal AFib Continue diltiazem Not on anticoagulation HTn :somewhat uncontrolled adjusted hydralazine to 25mg po bid and cardizem to 180 mg daily,added lisinopril 10 mg qd.. Opioid use disorder Continue methadone Chronic normocytic anemia Stable, at baseline Full Code DVT Prophylaxis: lovenox ongoing need hospitalization for treatment of worsening chronic diabetic foot infection with cellulitis - on po antibiotics ,htn meds adjustment and moniter .awiting placement. (2) Open wound: Status: Acute Quality Stroke Does the patient have a stroke diagnosis?: No VTE Prior VTE?: No VTE Risk Level:: Medical - moderate - high VTE Device Contraindication: Treatment Not Indicated VTE Drug Contraindication: N/A - Med Ordered
[2024-09-27 16:27] LABS: Glucose, Whole Blood 115 mg/dL (60-115)
[2024-09-27] MEDS: Morphine Sulfate 4 MG/ML CARTRIDGE 2 MG IVPUSH (17:50)
[2024-09-27] MEDS: Enoxaparin Sodium 40 MG/0.4 ML SYRINGE SUBCUT (19:08)
[2024-09-27 21:13] LABS: Glucose, Whole Blood 175 mg/dL (60-115)
[2024-09-28] MEDS: Doxycycline Monohydrate 100 MG CAPSULE PO ×2 (00:58→12:30)
[2024-09-28 01:05] VITALS: BP 195/68; PULSE 58
[2024-09-28] MEDS: Morphine Sulfate 4 MG/ML CARTRIDGE 2 MG IVPUSH (01:35)
[2024-09-28 07:39] LABS: Glucose, Whole Blood 124 mg/dL (60-115)
[2024-09-28 08:00] VITALS: PULSE 65; RESP 18; TEMP 36.4; O2SAT 99
[2024-09-28] MEDS: hydrALAZINE HCl 50 MG TABLET PO (08:01)
[2024-09-28] MEDS: dilTIAZem HCL CD 180 MG CAP.ER.24H PO (08:02)
[2024-09-28] MEDS: methADONE HCl 20 MG/2 ML ORAL.CONC 80 MG PO (08:03)
[2024-09-28] MEDS: 0.9 % Sodium Chloride Flush 3 ML SYRINGE IVFLUSH (08:05)
[2024-09-28 08:21] VITALS: BP 196/68
[2024-09-28] MEDS: hydrALAZINE HCl 20 MG/ML VIAL 10 MG IVPUSH (08:21)
[2024-09-28 09:09] VITALS: BP 170/62
[2024-09-28] MEDS: LORazepam 0.5 MG TABLET PO (09:17)
--- NOTE | 2024-09-28 10:44 | MHC.CM.PN ---
pt will be dcd today with [facility] going to [address] in [facility] notified of new address /[facility] faxed
[2024-09-28 11:01] VITALS: BP 132/58
[2024-09-28 11:22] LABS: Estimated Average Glucose 148 mg/dL; Hemoglobin A1C 143.3807 umol/L; Hemoglobin A1c % 6.8 % (<6.0); Total Hemoglobin (HGBA1C) 2812.2665 umol/L
[2024-09-28 11:28] LABS: Glucose, Whole Blood 177 mg/dL (60-115)
[2024-09-28] MEDS: Insulin Lispro 100 UNIT/ML 3 ML VIAL SUBCUT (11:40)
[2024-09-28 12:00] VITALS: PULSE 67; RESP 18; TEMP 36.4; O2SAT 97
== END 2024-09-28 13:55 | disposition home health service (06) | DRG 349 ==
LOC: HO.ED 16:05 → HO.EDOVER 17:27 → HO.S3 09-22 00:58
PROVIDERS: Admitting Provider Internal Medicine; Emergency Provider Emergency Medicine; PCP Internal Medicine; Visit Provider Internal Medicine
DX: T87.44 Infection of amputation stump, left lower extremity (principal); E11.51 Type 2 diabetes mellitus with diabetic peripheral angiopathy without gangrene; L03.116 Cellulitis of left lower limb; L97.429 Non-pressure chronic ulcer of left heel and midfoot with unspecified severity; D64.9 Anemia, unspecified; F11.20 Opioid dependence, uncomplicated; F17.210 Nicotine dependence, cigarettes, uncomplicated; Z59.01 Sheltered homelessness; I10 Essential (primary) hypertension; I48.0 Paroxysmal atrial fibrillation; Z89.511 Acquired absence of right leg below knee; Z71.6 Tobacco abuse counseling; Z79.4 Long term (current) use of insulin; Z79.899 Other long term (current) drug therapy; Z91.199 Patient's noncompliance with other medical treatment and regimen due to unspecified reason
CPT/HCPCS: 36415; 73630; 80048; 80076; 80202; 82565; 82947; 83036; 83605; 83735; 84132; 85025; 85652; 86140; 87040; 93005; 99285; J0360; J1650; J2270; J2405; J2543; J3370; J3371; J7120

== ENCOUNTER → 2024-09-21 13:03 | Outpatient (BNV) | payer OTHER, SELFPAY | PROVIDERS: Admitting Provider Internal Medicine; Emergency Provider Emergency Medicine; PCP Internal Medicine; Visit Provider Internal Medicine Cardiovascular Disease | DX: R53.1 Weakness (principal) | CPT/HCPCS: 93010 ==

== ENCOUNTER → 2024-09-21 17:19 | Outpatient (BNV) | payer OTHER, SELFPAY | PROVIDERS: Admitting Provider Internal Medicine; Emergency Provider Emergency Medicine; PCP Internal Medicine; Visit Provider Internal Medicine | DX: E11.628 Type 2 diabetes mellitus with other skin complications (principal); L08.9 Local infection of the skin and subcutaneous tissue, unspecified; T14.8XXA Other injury of unspecified body region, initial encounter | CPT/HCPCS: 99222 ==

== ENCOUNTER → 2024-09-21 17:19 | Outpatient (BNV) | payer OTHER, SELFPAY | PROVIDERS: Admitting Provider Internal Medicine; Emergency Provider Emergency Medicine; PCP Internal Medicine; Visit Provider Internal Medicine | DX: L03.116 Cellulitis of left lower limb (principal); E11.621 Type 2 diabetes mellitus with foot ulcer; I48.91 Unspecified atrial fibrillation | CPT/HCPCS: 99231; 99232; 99499 ==

== ENCOUNTER → 2024-09-21 17:19 | Outpatient (BNV) | payer OTHER, SELFPAY | PROVIDERS: Admitting Provider Internal Medicine; Emergency Provider Emergency Medicine; PCP Internal Medicine; Visit Provider Surgery | DX: T14.8XXA Other injury of unspecified body region, initial encounter (principal) | CPT/HCPCS: 99024 ==

== ENCOUNTER 2024-10-29 13:31 | Inpatient (IN) | payer OTHER, SELFPAY ==
[2024-10-29] VITALS (10 sets, daily range): BP systolic 138–178; BP diastolic 55–96; PULSE 63–95; RESP 12–19; TEMP 36.3–38.7; O2SAT 91–99; BMI 25.7; BMI 26.5
--- NOTE | 2024-10-29 | ECG_ITS ---
Test Reason : SEPSIS Blood Pressure : / mmHG Vent. Rate : 082 BPM Atrial Rate : 082 BPM P-R Int : 142 ms QRS Dur : 078 ms QT Int : 390 ms P-R-T Axes : 019 000 018 degrees QTc Int : 455 ms Normal sinus rhythm Minimal voltage criteria for LVH, may be normal variant ( R in aVL ) Cannot rule out Anterior infarct , age undetermined Abnormal ECG When compared with ECG of 21-SEP-2024 13:34, T wave inversion now evident in Anterior leads Referred By: Rosalba Ibarra Electronically Signed By:MIKE DAVIS
--- NOTE | ~2024-10-29 | XR_ITS ---
EXAMINATION: XR CHEST CLINICAL INFORMATION: SOB COMPARISON: 01/04/2019. TECHNIQUE: AP portable view of the chest was obtained. FINDINGS: There is cardiomegaly, increased from prior. Mediastinal and hilar contours demonstrate mild vascular congestion in the hilar regions and throughout both lungs without overt pulmonary edema. No consolidations. No Emanuel lines seen. No effusions or pneumothoraces. Degenerative changes in the shoulder joints and spine. No soft tissue abnormalities. XR/XR chest 1V IMPRESSION: 1. Since 2019, increased cardiac size with bilateral vascular pulmonary congestion, however no overt failure or focal pneumonia is seen. Electronically signed by: Nasim Ibarra MD 10/29/2024 04:08 PM ИВАН
--- NOTE | ~2024-10-29 | XR_ITS ---
EXAMINATION: XR FOOT, LEFT CLINICAL INFORMATION: pain ; no further clinical information provided. COMPARISON: 09/21/2024. TECHNIQUE: AP, lateral, and oblique views of the left foot. FINDINGS: There is diffuse osteopenia. Redemonstration of resection of the first through fourth metatarsals at the proximal diaphyseal levels, and complete resection of the fifth metatarsal. No acute fracture or suspicious bone lesion. No focal bony erosions or regions of focal osteopenia. No permeative bone changes. Stable degenerative changes of the intertarsal joints of the midfoot and hindfoot. Small plantar calcaneal and dorsal calcaneal spurs. Mild diffuse soft tissue edema seen, with no subcutaneous gas or foreign body. There are soft tissue vascular calcifications. XR/XR foot LT 2V IMPRESSION: 1. Stable osteopenia, postoperative resections of the digits at the metatarsal levels, and degenerative changes of the midfoot and hindfoot. 2. No acute bony findings seen. 3. Diffuse subcutaneous soft tissue edema. Vascular calcification. Electronically signed by: Nsaim Ibarra MD 10/29/2024 04:12 PM ИВАН
[2024-10-29 14:48] LABS: Basophils Absolute Auto 0.1 X10*3/uL (0.0-0.2); Basophils Percent Auto 0.2 % (0-2); Hematocrit 32.3 % (42.0-52.0); Hemoglobin 9.9 g/dl (14.0-18.0); Imm Gran Abs Auto 0.25 X10*3/uL (0.00-0.03); Imm Gran Pct Auto 0.9 % (0.0-0.4); Lymphocytes Absolute Auto 1.1 X10*3/uL (1.2-4.9); Lymphocytes Percent Auto 3.9 % (20-40); MANUAL DIFF FLAG SCAN; Mean Corpuscular HGB Conc 30.7 g/dl (31.0-36.0); Mean Corpuscular Hemoglobin 25.1 pg (27.0-33.0); Mean Platelet Volume 9.8 fL (9.4-12.4); Monocytes Percent Auto 3.6 % (2-11); Neutrophils Absolute Auto 26.8 x10*3/uL (2.0-8.3); Neutrophils Percent Auto 91.4 % (45-73); Platelet Count 674 X10*3/uL (160-400); Red Blood Count 3.94 X10*6/uL (4.60-5.80); Red Cell Distribution Width 15.1 % (11.0-16.0); SCAN SMEAR FLAG 1; White Blood Count 29.3 X10*3/uL (4.8-10.8)
[2024-10-29 15:02] LABS: Lactic Acid 1.7 mmol/L (0.5-2.0)
[2024-10-29 15:03] LABS: Alanine Aminotransferase 7 U/L (0-40); Albumin Level 2.6 g/dL (3.5-5.0); Alkaline Phosphatase 81 U/L (39-117); Anion Gap 10 (12-20); Aspartate Amino Transferase 24 U/L (5-37); Bilirubin Total 0.3 mg/dL (0.0-1.0); Blood Urea Nitrogen 14 mg/dL (9-16); Calcium 8.9 mg/dL (8.4-10.2); Carbon Dioxide 33 mmol/L (22-29); Chloride 99 mmol/L (96-108); Creatinine Clr Calc Pharmacy 69.1; Estimated Glomerular Filt Rate > 60; Glucose Random 215 mg/dL (60-115); Magnesium 1.8 mg/dL (1.6-2.6); Potassium 3.7 mmol/L (3.3-5.1); Sodium 138 mmol/L (135-145); Total Protein 8.3 g/dL (6.5-8.0)
--- NOTE | 2024-10-29 15:04 | ED_ITS ---
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 His medical history also includes hypertension, hepatitis C (treated in 2009), and chronic wheelchair use. In July, he underwent revision of the transmetatarsal amputation stump with resection of the remaining 5th metatarsal at the tarsometatarsal joint. Patient presented with change in mental status more lethargy fever aches was to be transported by family in a car. Family panic. Called EMS while patient was in the car and patient was taken to the hospital for further evaluation. Symptom has been ongoing for the last few days being coming increasing lethargic. Subjectively feel warm. Patient denies any coughing congestion. No pain on urination. Patient from home. Baseline on methadone. Related Data Home Medications ?Medication ?Instructions ?Recorded ?Confirmed amitriptyline 50 mg tablet 50 mg PO BEDTIME PRN Depression 12/09/20 09/21/24 blood sugar diagnostic (FreeStyle #10 ea 03/08/22 06/21/24 Lite Strips) insulin syringe-needle U-100 1 mL #10 ea 03/08/22 10/28/23 31 gauge x 5/16 (BD Insulin Syringe Ultra-Fine) methadone 10 mg/mL oral concentrate 80 mg PO DAILY 04/10/24 09/22/24 losartan 50 mg tablet 50 mg PO DAILY 10/29/24 Previous Rx's ?Medication ?Instructions ?Recorded Off loading shoe #1 ea 12/28/20 bismuth tribrom-petrolatum,wh 1 X #200 ea 02/21/21 8 bandage (Xeroform Petrolatum Dressing) adhesive tape 2 X 10 yard #1 ea 06/16/21 prosthetics (prosthetic) #1 ea 06/16/21 chair, wheel (Wheel chair) #1 ea 03/12/23 Bedside commode #1 ea 04/18/23 Shower Chair #1 ea 04/18/23 Walker #1 ea 05/06/23 gauze bandage 3 X 3 (Band-Aid #25 ea 09/24/23 Gauze Pads) gauze bandage 4 X 2.5 yard #30 ea 09/24/23 (Band-Aid Rolled Gauze) amoxicillin 875 mg-potassium 1 tab PO BID #60 tabs 09/25/24 clavulanate 125 mg tablet diltiazem HCl 180 mg capsule,24 240 mg (1.3333 x 180 mg) PO DAILY 09/25/24 hr,extended release #120 caps doxycycline hyclate 100 mg capsule 100 mg PO BID #60 caps 09/25/24 hydralazine 50 mg tablet 50 mg PO BID #120 tabs 09/28/24 insulin glargine 100 unit/mL 10 unit (0.1 mL) subcut DAILY #1 mL 09/28/24 subcutaneous solution (Lantus U-100 Insulin) Allergies Allergy/AdvReac Type Severity Reaction Status Date / Time furosemide [Lasix] Allergy Intermediate Hives Verified 10/29/24 14:29 levofloxacin [Levaquin] Allergy Unknown Gastrointestinal Verified 10/29/24 14:29 Upset metronidazole [Flagyl] Allergy Unknown Unknown Verified 10/29/24 14:29 latex Allergy Rash Verified 10/29/24 14:29 contrast dye Allergy Unknown rash, hives Uncoded 10/29/24 14:29 [facility] Past Medical History [facility] Narrative: Positive history of diabetes history of peripheral vascular disease history of osteomyelitis history of leg wounds history of atrial fibrillation previous history of hepatitis-C history of [id number] amputation on the right side. History of toes amputation on the left. History of open wounds. Medical History Open wound Hx of hepatitis Diabetic ulcer of right foot Atrial fibrillation Hypertension Diabetes Surgical History Hx of surgical procedure (~08/06/24) 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 History of transmetatarsal amputation of foot (~09/2016) History of amputation of toe (~08/18/14) History of amputation of toe (~10/21/13) History of lipoma Family History Family History Father History of lung cancer Mother History of diabetes mellitus Social History Social History Household Members: Family Household Members Other:: mother Housing: Apartment Housing Other:: patient is homeless, couch surfing with friends/family Are you a primary daycare teacher to a significant other at home: No Do you presently have visiting nurse or other home services: No Alcohol intake: never Comment: pt. stays on wc, refused alarm Patient Tobacco Use Status: Current everyday Tobacco user Tobacco use type: Cigarette Cigarettes Per Day: 4 Years Smoked: 49 Second Hand Smoke Exposure: Yes Substance Use Type: Crack/Cocaine Advance Directives: Yes Advance Directives on File: Yes Advance Directives Date on File: 04/28/24 service: No Physical Exam ED Vital Signs: Vital Signs - 24 hr 10/29/24 13:50 10/29/24 14:56 10/29/24 15:10 Temperature 99.8 F 101.6 F H Pulse Rate 92 94 81 Respiratory Rate 18 18 19 Blood Pressure 164/62 H 178/91 H 168/81 H Pulse Oximetry 98 96 95 Oxygen Delivery Method Room Air Room Air Room Air BMI result Body Mass Index 25.7 Appearance: Sick appearing male complaining of generalized malaise weakness. Eyes: Pupils equal, round and reactive to light. ENT: Pharynx normal. Neck: Normal inspection. Neck supple. No lymph nodes noted. No crepitus CVS: Normal heart rate and rhythm. Pulses normal. Normal S1 and S2 Respiratory: No respiratory distress. Breath sounds normal. No Wheezing. No rales Abdomen: Soft and nontender. No rigidity. No distention. good BS x4 Skin: Skin warm and dry. Normal skin color. Normal skin turgor. Extremities: Positive lesion over the left foot appeared to be shallow. Approximately 5 cm x 2 cm in size. With a necrotic center. Patient also has an additional wound over the right thigh approximately 6 cm x 6 cm in size. Seems fairly shallow with a purulent base. Neuro: Oriented X to self and to place. Thinks it is 2014.. No motor deficit. No sensory deficit. Moving all extermities. No slurred speech Medications Administered Discontinued Medications Generic Name Dose Route Start Last Admin Trade Name Freq PRN Reason Stop Dose Admin Acetaminophen 975 mg 12/19/24 15:01 10/29/24 15:42 Acetaminophen 325 Mg Tablet PO 10/29/24 15:02 975 mg ONCE ONE Administration Sodium Chloride 2,505 mls @ 2,505 mls/hr 10/29/24 15:00 10/29/24 15:40 Ns 30 ml/kg infuse over 1 hr (2505 ml) 10/29/24 15:59 2,505 mls/hr IV Administration .Q1H STA Piperacillin Sod/Tazobactam 100 mls @ 200 mls/hr 10/29/24 15:01 10/29/24 15:43 Sod 4.5 gm/ Sodium Chloride IV 10/29/24 15:30 200 mls/hr ONCE ONE Administration Clindamycin Phosphate 600 mg in 50 mls @ 100 mls/hr 10/29/24 15:10 10/29/24 15:43 Cleocin IV 10/29/24 15:39 100 mls/hr ONCE ONE Administration Medical Decision Making Medical Decision Making [facility] Narrative: Patient noted to have a fever 101.6. Has a white count of 29 with a left shift. Blood pressure was okay. Patient's O2 sat is normal. Has a history of osteomyelitis cellulitis of the foot. Was previously on antibiotics. The admitted and discharged middle of September. Presented again with having high fever. Unsure patient finishes full course of antibiotics. I did review patient's previous culture. He did have a history of what looks like community- acquired MRSA that was sensitive to clindamycin and doxycycline. We empirically covered patient with 4.5 g of Zosyn in addition to clindamycin for the possible MRSA. His sugar is 200 there is no evidence for hypoglycemia. My interpretation of patient's chest x-ray showed no focal infiltrate. COVID flu RSV was also sent. Urine is being sent. Will require admission for further evaluation. A sepsis alert was called. 30 cc/kilos of fluid was given. Case discussed with hospitalist team. Will admit for further evaluation. Differential Diagnosis Differential Diagnoses: The differential diagnosis associated with the presentation includes Osteomyelitis, skin infection Admission/Observation Consideration of admission/observation: Escalation of care including admission/observation considered Will require admission hospitalization Consult Healthcare Provider Management of the patient was discussed with: Hospitalist Lab Data [facility] Lab Attestation statement: I reviewed the patient's lab results. 10/29/24 14:42 10/29/24 14:42 Labs: Lab Results 10/29/24 10/29/24 10/29/24 Range/Units 14:42 15:08 15:14 WBC 29.3 H (4.8-10.8) X10*3/uL RBC 3.94 L (4.60-5.80) X10*6/uL Hgb 9.9 L (14.0-18.0) g/dl Hct 32.3 L (42.0-52.0) % MCV 82.0 (80.0-98.0) fL MCH 25.1 L (27.0-33.0) pg MCHC 30.7 L (31.0-36.0) g/dl RDW 15.1 (11.0-16.0) % Plt Count 674 H D (160-400) X10*3/uL MPV 9.8 (9.4-12.4) fL Immature Gran % (Auto) 0.9 H (0.0-0.4) % Neut % (Auto) 91.4 H (45-73) % Lymph % (Auto) 3.9 L (20-40) % Ramsey % (Auto) 3.6 (2-11) % Eos % (Auto) 0.0 (0-4) % Baso % (Auto) 0.2 (0-2) % Lymph # (Auto) 1.1 L (1.2-4.9) X10*3/uL Ramsey # (Auto) 1.0 (0.1-1.2) X10*3/uL Eos # (Auto) 0.0 (0.0-0.4) X10*3/uL Baso # (Auto) 0.1 (0.0-0.2) X10*3/uL Abs Immat Gran (auto) 0.25 H (0.00-0.03) X10*3/uL Absolute Neuts (auto) 26.8 H (2.0-8.3) x10*3/uL Absolute Nucleated RBC 0.000 (0.0-0.012) X10*3/uL Nucleated RBC % (auto) 0.0 (0.0-0.2) /100WBC Smear Tech's Comments VERIFIED Sodium 138 (135-145) mmol/L Potassium 3.7 D (3.3-5.1) mmol/L Chloride 99 (96-108) mmol/L Carbon Dioxide 33 H (22-29) mmol/L Anion Gap 10 L (12-20) BUN 14 (9-16) mg/dL Creatinine 1.18 (0.5-1.4) mg/dL Estim Creat Clear Calc 69.1 Estimated GFR > 60 POC Glucose 195 H (60-115) mg/dL Random Glucose 215 H (60-115) mg/dL Lactic Acid 1.7 (0.5-2.0) mmol/L Calcium 8.9 D (8.4-10.2) mg/dL Magnesium 1.8 (1.6-2.6) mg/dL Total Bilirubin 0.3 (0.0-1.0) mg/dL AST 24 (5-37) U/L ALT 7 (0-40) U/L Alkaline Phosphatase 81 (39-117) U/L C-Reactive Protein 19.32 H (< or = 0.50) mg/dL Total Protein 8.3 H (6.5-8.0) g/dL Albumin 2.6 L (3.5-5.0) g/dL Independent Interpretation I performed an independent interpretation of an: Plain X-Ray (Chest x-ray negative for pneumonia) Independent Historian Clinical information obtained from an independent historian. History obtained from or confirmed by: Other (Family) External Record Review External record reviewed: Inpatient record Critical Care Time Critical Care Time Critical Care Time: Yes Total Critical Care Time: 40 Attestation: I have personally provided 40 minutes of critical care time exclusive of time spent on separately billable procedures. ?Time includes review of lab data, radiology results, discussion with consultants, and monitoring for potential decompensation. ?Interventions were performed as documented above Discharge Plan Discharge Clinical Impression: Cellulitis, Below knee amputation, Open wound, Diabetic infection of left foot Patient Disposition: Admitted As Inpatient Print Language: Slovak
--- NOTE | 2024-10-29 15:07 | PC.NURSE ---
Delay in IV start d/t difficult IV access.
[2024-10-29 15:10] LABS: SLIDE REVIEW VERIFIED
[2024-10-29 15:17] LABS: Glucose, Whole Blood 195 mg/dL (60-115)
[2024-10-29 15:26] LABS: C Reactive Protein 19.32 mg/dL (< or = 0.50)
[2024-10-29] MEDS: SODIUM CHLORIDE 2505 ML IV (15:40)
[2024-10-29] MEDS: Acetaminophen 325 MG TABLET 975 MG PO (15:42)
--- NOTE | 2024-10-29 15:42 | P.HPHOSP_ITS ---
History of Present Illness Date of Service: 10/29/24 Attending physician on admission: [facility] Chief Complaint: Confusion, lethargy Pt is a 63-year-old male with a PMH significant for? PVD s/p right BKA 09/2023, insulin-dependent type 2 diabetes, hx of left ankle/foot osteomyelitis, left TMA, AFib not on anticoagulation, HTN, hepatitis-C s/p tx in 2009, and chronically wheelchair-bound who presents to the ED with?confusion and lethargy x3 days, worse this morning. Patient is alert and oriented to self and place, but not to time. Patient reports has been having intermittent moments of confusion for the past few days, especially noted when he does not know where he is. Patient lives with his daughter who called EMS to bring him to the hospital. Patient also complains of primarily right leg pain right [id number]. To a lesser extent also complains of left leg pain above the knee. Denies any purulent or foul-smelling discharge from left foot wound. Patient denies fever, chills. No nausea, vomiting, abdominal pain. Denies chest pain/pressure, palpitations. No shortness a breath or difficulty breathing. Denies cough above baseline. In the ED pt was febrile up to 101.6, tachycardic up to 94, and hypertensive up to 178/91. Labs were significant for leukocytosis 29.3, CRP 19.32, and albumin 2.6. Stable normocytic anemia of 9.9/32.3. No significant electrolyte abnormalities. Renal function WNL. Lactic acid WNL at 1.7. Hepatic function WNL. CXR showing increased cardiac size with bilateral vascular pulmonary congestion since 2019, though no overt failure or focal pneumonia. Left foot x- ray showing stable osteopenia and postoperative changes without acute bony findings. EKG demonstrated normal sinus rhythm with T-wave inversions in anterior leads. Pt was treated with IVF, acetaminophen, Zosyn and clindamycin. Pt will be admitted to the hospital for treatment and further evaluation of acute encephalopathy in the setting of left lower extremity cellulitis with sepsis secondary to chronic diabetic foot ulcer. Review of Systems 2 Review of Systems: Negative except for that which is stated in [facility] Medical History Open wound Hx of hepatitis Diabetic ulcer of right foot Atrial fibrillation Hypertension Diabetes Family History Father History of lung cancer Mother History of diabetes mellitus Surgical History Hx of surgical procedure (~08/06/24) 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 History of transmetatarsal amputation of foot (~09/2016) History of amputation of toe (~08/18/14) History of amputation of toe (~10/21/13) History of lipoma Social History Household Members: Family Household Members Other:: mother Housing: House Housing Other:: patient is homeless, couch surfing with friends/family Are you a primary care management specialist to a significant other at home: No Do you presently have visiting nurse or other home services: Yes (business continuity director's and visiting nurses.) Alcohol intake: never Comment: wheelchair bound, right left TMA Patient Tobacco Use Status: Current everyday Tobacco user Tobacco use type: Cigarette Cigarettes Per Day: 6 Years Smoked: 49 Smoked in Last 30 Days: Yes Patient Interested in Nicotine Replacement: No Patient Given Instructions on How to Stop Smoking: No Second Hand Smoke Exposure: No Use of substances other than those prescribed or required for medical reasons: No Substance Use Type: Crack/Cocaine Currently Displaying Signs/Symptoms of Drug Intoxication Withdrawal: No Have you been hit, kicked, punched, or otherwise hurt by someone within the past year? If so, by whom?: No Do you feel safe in your current relationship?: No Current Relationship Is there a partner from a previous relationship who is making you feel unsafe now?: No Are you made to feel afraid or neglected: No Advance Directives: Yes Advance Directives on File: Yes Advance Directives Date on File: 04/28/24 Do you have a plan to hurt others: No Plan Recently lost weight without trying: No How much weight loss: Not applicable Eating poorly because of decreased appetite: No Nutrition screen score: 0 Nutrition Risks: No Nutritional Risk Poor oral hygiene: No service: No Meds Allergies Allergy/AdvReac Type Severity Reaction Status Date / Time furosemide [Lasix] Allergy Intermediate Hives Verified 10/29/24 14:29 levofloxacin [Levaquin] Allergy Unknown Gastrointestinal Verified 10/29/24 14:29 Upset metronidazole [Flagyl] Allergy Unknown Unknown Verified 10/29/24 14:29 latex Allergy Rash Verified 10/29/24 14:29 contrast dye Allergy Unknown rash, hives Uncoded 10/29/24 14:29 Active Medications: Current Medications Sodium Chloride (Ns) 2,505 mls @ 2,505 mls/hr 30 ml/kg infuse over 1 hr (2505 ml) IV .Q1H STA Stop: 10/29/24 15:59 Home Medications ?Medication ?Instructions ?Recorded ?Confirmed ?Last Taken ?Type amitriptyline 50 mg tablet 50 mg PO BEDTIME PRN Depression 12/09/20 09/21/24 06/20/24 History blood sugar diagnostic (FreeStyle #10 ea 03/08/22 06/21/24 Unknown History Lite Strips) insulin syringe-needle U-100 1 mL #10 ea 03/08/22 10/28/23 Unknown History 31 gauge x 5/16 (BD Insulin Syringe Ultra-Fine) methadone 10 mg/mL oral concentrate 80 mg PO DAILY 04/10/24 09/22/24 09/21/24 History 80 mg losartan 50 mg tablet 50 mg PO DAILY 10/29/24 Unknown History insulin glargine 100 unit/mL 45 unit subcut BID 10/30/24 Unknown History subcutaneous solution (Lantus U-100 Insulin) Physical Exam 2 Vital Signs and Narrative: Vital Signs: Last Vital Signs Temp 101.6 F H 10/29/24 14:56 Pulse 81 10/29/24 15:10 Resp 19 10/29/24 15:10 BP 168/81 H 10/29/24 15:10 Pulse Ox 95 10/29/24 15:10 O2 Del Method Room Air 10/29/24 15:10 BMI result Body Mass Index 25.7 Constitutional: Alert, in no acute distress. Mental Status: Oriented to person and place, not to time. Eyes: Pupils are equal, round, and reactive to light. Ear, Nose, and Throat: Oropharynx clear, mucous membranes moist. Ears and nose without deformities. Trachea midline. Respiratory: Clear to auscultation bilaterally. No wheezing, rales, or rhonchi. Cardiovascular: S1, S2 regular. No murmurs, rubs, or gallops. Gastrointestinal: Abdomen soft, non-tender, non-distended. Normal bowel sounds. Neurologic: Cranial nerves II-XII are grossly intact bilaterally. No focal neurological deficits. Moves all extremities spontaneously. Skin: Warm, dry. Extremities: S/P right BKA, left TMA. Pt with stage two decubitus ulcer of posterior thigh. Area of warmth, erythema, and desquamation to anteriorolateral left fenton. Chronic diabetic foot ulcer without purulent discharge. As pictured below Results Labs 10/30/24 06:09 10/30/24 06:09 Labs: Laboratory Results - last 24 hr 10/29/24 10/29/24 10/29/24 14:42 15:08 15:14 MCV 82.0 MCH 25.1 L MCHC 30.7 L RDW 15.1 Plt Count 674 H D MPV 9.8 Immature Gran % (Auto) 0.9 H Neut % (Auto) 91.4 H Lymph % (Auto) 3.9 L Lassen % (Auto) 3.6 Eos % (Auto) 0.0 Baso % (Auto) 0.2 Lymph # (Auto) 1.1 L Lassen # (Auto) 1.0 Eos # (Auto) 0.0 Baso # (Auto) 0.1 Abs Immat Gran (auto) 0.25 H Absolute Neuts (auto) 26.8 H Absolute Nucleated RBC 0.000 Nucleated RBC % (auto) 0.0 Smear Tech's Comments VERIFIED Anion Gap 10 L Estim Creat Clear Calc 69.1 Estimated GFR > 60 POC Glucose 195 H Random Glucose 215 H Lactic Acid 1.7 Calcium 8.9 D Magnesium 1.8 Total Bilirubin 0.3 AST 24 ALT 7 Alkaline Phosphatase 81 C-Reactive Protein 19.32 H Total Protein 8.3 H Albumin 2.6 L Assessment and Plan (1) Cellulitis: Qualifiers: Laterality: left Site of cellulitis: extremity Site of cellulitis of extremity: lower extremity Qualified Code(s): L03.116 - Cellulitis of left lower limb Status: Acute Plan Pt is a 63-year-old male with a PMH significant for? PVD s/p right BKA 09/2023, insulin-dependent type 2 diabetes, hx of left ankle/foot osteomyelitis, left TMA, AFib not on anticoagulation, HTN, hepatitis-C s/p tx in 2009, and chronically wheelchair-bound who presents to the ED with?confusion and lethargy x3 days, worse this morning. Pt will be admitted to the hospital for treatment and further evaluation of acute encephalopathy in the setting of left lower extremity cellulitis with sepsis secondary to chronic diabetic foot ulcer. Acute encephalopathy in the setting of left lower extremity cellulitis with sepsis Patient with AMS, erythema and warmth of left lower extremity, 3 distinct areas of wounds to left lower extremity Pt with chronic nonhealing diabetic left foot ulcer ?Osteo: ESR 100, CRP 19.32; left foot x-ray negative for osseous changes Meets sepsis criteria: Fever, tachycardia, leukocytosis; lactic acid WNL Patient received IVF and started on broad-spectrum antibiotics in the ED Will treat with vancomycin and Zosyn, started 10/29/2024 General surgery consult Wound care consult Monitor mentation Insulin-dependent type 2 diabetes Sliding-scale insulin, Lantus Diabetic diet Paroxysmal AFib Continue diltiazem Not on anticoagulation Opioid use disorder Continue methadone Chronic normocytic anemia Stable, baseline Full Code Attending:?Dr. Ivy DVT Prophylaxis: Lovenox Pt will require a hospitalization of at least two nights for treatment of?acute encephalopathy in the setting of left lower extremity cellulitis with sepsis secondary to chronic diabetic foot ulcer. Patient will require administration of IV antibiotics, specialist consultation with General surgery for possible debridement, as well as close monitoring of mentation. Quality Stroke Does the patient have a stroke diagnosis?: No VTE Prior VTE?: No VTE Risk Level:: Medical - moderate - high VTE Device Contraindication: Treatment Not Indicated VTE Drug Contraindication: N/A - Med Ordered
[2024-10-29] MEDS: Piperacillin Sodium/Tazobactam 4.5 GM in 0.9 % Sodium Chloride 100 ML IV (15:43)
[2024-10-29] MEDS: Clindamycin Phosphate/D5W 600 MG/50 ML PIGGYBACK 100 MG IV (15:43)
[2024-10-29 16:12] LABS: Erythrocyte Sedimentation Rate 100 MM/HR (0-15)
[2024-10-29 16:28] LABS: Influenza A PCR NEGATIVE (Negative); Influenza B PCR NEGATIVE (Negative); Resp Syncy Virus RNA Qual PCR NEGATIVE (Negative); SARS COV2 PCR INHOUSE NEGATIVE (Negative)
--- NOTE | 2024-10-29 16:46 | PC.NURSE ---
IVF infusing slower then normal bolus d/t IV 22g in Right hand. fluids on IV pump.
[2024-10-29] MEDS: vancomycin/NS 2,000 MG/500 ML PLAST..BAG 250 MG IV (17:14)
[2024-10-29] MEDS: Enoxaparin Sodium 40 MG/0.4 ML SYRINGE SUBCUT (17:15)
--- NOTE | 2024-10-29 17:25 | PHA.PROG ---
Admission Date/Time: October 29, 2024 16:07 Indication: skin + skin structure Weight in k.5 kg Adjusted body weight in Kg: Marshall body weight in Kg: Obesity Dosing Indication % IBW: BMI 25.7 Serum Creatinine - Last 168 Hours 10/29/24 14:42 Creatinine 1.18 Estimated CrCl and GFR - Last 168 Hours 10/29/24 14:42 Estim Creat Clear Calc 69.1 Estimated GFR > 60 Vancomycin Loading Dose: 2000 X1 Current Vancomycin Dosing Regimen: 750 Q12H Vancomycin Monitoring using AUC goal of 400 - 600 range with trough as surrogate marker: 473 Date and Time for next Vancomycin Level to be drawn: 10/30 @1600 Pharmacist Comments on Vancomycin Plan: Patient's renal function appears stable. Targeting higher trough than with 1500 Q24H per indication, patient has possible osteo. Predicted trough with current dosin.9. To be adjusted based on SCr stability and trough on 10/30. Vancomycin dosing will take advantage of [employer] as a clinical decision support tool that uses Bayesian modeling to calculate individual patient's pharmacokinetic parameters and forecast the patient's drug concentration time course with the target goal AUC 24 range of 400 - 600 mg/L/hr.
--- NOTE | 2024-10-29 20:03 | PC.NURSE ---
Assumed care of pt at 1900. worklisst not completed by day shift rn
[2024-10-29 20:32] LABS: Glucose, Whole Blood 165 mg/dL (60-115)
[2024-10-29] MEDS: Piperacillin Sodium/Tazobactam 3.375 GM in 0.9 % Sodium Chloride 50 ML IV (21:15)
[2024-10-29] MEDS: Insulin Lispro 100 UNIT/ML 3 ML VIAL SUBCUT (21:15)
[2024-10-29] MEDS: 0.9 % Sodium Chloride Flush 3 ML SYRINGE IVFLUSH (21:22)
[2024-10-30] MEDS: Piperacillin Sodium/Tazobactam 3.375 GM in 0.9 % Sodium Chloride 50 ML IV ×4 (03:25→20:08)
[2024-10-30 03:56] VITALS: BP 150/70; PULSE 68; RESP 18; TEMP 37.4; O2SAT 98
[2024-10-30 06:16] LABS: MANUAL DIFF FLAG NO
[2024-10-30] MEDS: vancomycin HCL 750 MG in 0.9 % Sodium Chloride 250 ML 265 MG IV ×2 (06:24→17:23)
[2024-10-30 06:42] LABS: Anion Gap 14 (12-20); Blood Urea Nitrogen 16 mg/dL (9-16); Calcium 8.2 mg/dL (8.4-10.2); Carbon Dioxide 27 mmol/L (22-29); Chloride 102 mmol/L (96-108); Creatinine Clr Calc Pharmacy 82.3; Estimated Glomerular Filt Rate > 60; Glucose Random 154 mg/dL (60-115); Potassium 3.3 mmol/L (3.3-5.1); Sodium 140 mmol/L (135-145)
[2024-10-30 06:51] LABS: Basophils Absolute Auto 0.1 X10*3/uL (0.0-0.2); Basophils Percent Auto 0.2 % (0-2); Eosinophils Absolute Auto 0.1 X10*3/uL (0.0-0.4); Eosinophils Percent Auto 0.5 % (0-4); Hematocrit 28.4 % (42.0-52.0); Hemoglobin 8.5 g/dl (14.0-18.0); Imm Gran Abs Auto 0.16 X10*3/uL (0.00-0.03); Imm Gran Pct Auto 0.8 % (0.0-0.4); Lymphocytes Absolute Auto 1.6 X10*3/uL (1.2-4.9); Lymphocytes Percent Auto 7.6 % (20-40); Mean Corpuscular HGB Conc 29.9 g/dl (31.0-36.0); Mean Corpuscular Hemoglobin 24.9 pg (27.0-33.0); Mean Corpuscular Volume 83.3 fL (80.0-98.0); Mean Platelet Volume 9.6 fL (9.4-12.4); Monocytes Percent Auto 4.9 % (2-11); Neutrophils Absolute Auto 18.2 x10*3/uL (2.0-8.3); Platelet Count 555 X10*3/uL (160-400); Red Blood Count 3.41 X10*6/uL (4.60-5.80); Red Cell Distribution Width 15.3 % (11.0-16.0); White Blood Count 21.1 X10*3/uL (4.8-10.8)
[2024-10-30 07:11] VITALS: BP 172/78; PULSE 66; RESP 16; TEMP 37.1; O2SAT 99
[2024-10-30 07:23] LABS: Glucose, Whole Blood 134 mg/dL (60-115)
--- NOTE | 2024-10-30 09:08 | P.CONGS_ITS ---
History of Present Illness Consult details Consult date: 10/30/24 Requesting physician: Yomaira Ryan Narrative: 63-year-old male patient well known to surgical service with prior history of diabetic associated foot ulcers status post bilateral transmetatarsal amputations followed by right below-knee amputation now with persistent cellulitis of the left lower extremity. He reports increased confusion especially at night. Patient admitted to the hospitalist service due to elevated WBC, CRP. Surgical consultation requested for wound management. Review of Systems 2 Review of Systems: Yes Unobtainable due to mental condition PMFSH Past Medical History Medical History Open wound Hx of hepatitis Diabetic ulcer of right foot Atrial fibrillation Hypertension Diabetes Family History Family History Father History of lung cancer Mother History of diabetes mellitus Surgical History Surgical History Hx of surgical procedure (~08/06/24) 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 History of transmetatarsal amputation of foot (~09/2016) History of amputation of toe (~08/18/14) History of amputation of toe (~10/21/13) History of lipoma Social History Social History Household Members: Family Household Members Other:: mother Housing: House Housing Other:: patient is homeless, couch surfing with friends/family Are you a primary respiratory care practitioner to a significant other at home: No Do you presently have visiting nurse or other home services: Yes (track service person's and visiting nurses.) Alcohol intake: never Comment: wheelchair bound, right left TMA Patient Tobacco Use Status: Current everyday Tobacco user Tobacco use type: Cigarette Cigarettes Per Day: 6 Years Smoked: 49 Second Hand Smoke Exposure: No Substance Use Type: Crack/Cocaine Advance Directives Date on File: 04/28/24 service: No Meds Allergies Allergy/AdvReac Type Severity Reaction Status Date / Time furosemide [Lasix] Allergy Intermediate Hives Verified 10/29/24 14:29 levofloxacin [Levaquin] Allergy Unknown Gastrointestinal Verified 10/29/24 14:29 Upset metronidazole [Flagyl] Allergy Unknown Unknown Verified 10/29/24 14:29 latex Allergy Rash Verified 10/29/24 14:29 contrast dye Allergy Unknown rash, hives Uncoded 10/29/24 14:29 Active Medications: Current Medications Acetaminophen (Acetaminophen 325 Mg Tablet) 650 mg PO Q6H PRN PRN Reason: Pain, Mild (Pain Scale 1-3), fever or headache Benzonatate (Benzonatate 100 Mg Capsule) 100 mg PO TID PRN PRN Reason: Cough Calcium Carbonate (Calcium Carbonate 750 Mg Tab.Chew) 750 mg PO Q4H PRN PRN Reason: Heartburn Enoxaparin Sodium (Enoxaparin Sodium 40 Mg/0.4 Ml Syringe) 40 mg SUBCUT Q24H [facility] Last Admin: 10/29/24 17:15 Dose: 40 mg Glucose (Glucose Gel 15 Gm Gel..Gram.) 15 gm PO Q15M PRN; Protocol PRN Reason: per Hypoglycemia Standing Ord. Piperacillin Sod/Tazobactam (Sod 3.375 gm/ Sodium Chloride) 50 mls @ 100 mls/hr IV Q6H [facility] Last Admin: 10/30/24 08:11 Dose: 100 mls/hr Dextrose (D10) 250 mls @ 750 mls/hr IV Q15M PRN; Protocol PRN Reason: per Hypoglycemia Standing Ord. Vancomycin HCl 750 mg/ Sodium (Chloride) 265 mls @ 265 mls/hr IV Q12H [facility] Last Infusion: 10/30/24 07:26 Dose: Infused Insulin Human Lispro (Insulin Lispro 100 Unit/Ml 3 Ml Vial) 0 unit SUBCUT QIDACHS [facility]; Protocol Last Admin: 10/30/24 07:27 Dose: Not Given Magnesium Hydroxide (Milk Of Magnesia 30 Ml Oral.Susp) 30 ml PO DAILY PRN PRN Reason: Constipation Melatonin (Melatonin 3 Mg Tablet) 6 mg PO BEDTIME PRN PRN Reason: Insomnia Ondansetron HCl (Ondansetron Hcl 4 Mg/2 Ml Vial) 4 mg IVPUSH Q8H PRN PRN Reason: Nausea and Vomiting Pharmacy Consult (Consult Rx Vancomycin Dosing) 1 each MISCELLANE DAILY PRN PRN Reason: Consult order Sodium Chloride (0.9 % Sodium Chloride Flush 3 Ml Syringe) 3 ml IVFLUSH QSHIFT [facility] Last Admin: 12/20/24 08:15 Dose: Not Given Home Medications ?Medication ?Instructions ?Recorded ?Confirmed ?Last Taken ?Type amitriptyline 50 mg tablet 50 mg PO BEDTIME PRN Depression 12/09/20 10/30/24 06/20/24 History blood sugar diagnostic (FreeStyle #10 ea 03/08/22 06/21/24 Unknown History Lite Strips) insulin syringe-needle U-100 1 mL #10 ea 03/08/22 10/28/23 Unknown History 31 gauge x 5/16 (BD Insulin Syringe Ultra-Fine) methadone 10 mg/mL oral concentrate 80 mg PO DAILY 04/10/24 10/30/24 10/29/24 History insulin glargine 100 unit/mL 10 unit subcut BID 10/30/24 10/30/24 10/29/24 History subcutaneous solution (Lantus U-100 Insulin) Physical Exam 2 Vital Signs: Vital Signs: Last Vital Signs Temp 98.8 F 10/30/24 07:11 Pulse 66 10/30/24 07:11 Resp 16 10/30/24 07:11 BP 172/78 H 10/30/24 07:11 Pulse Ox 99 10/30/24 07:11 O2 Del Method Room Air 10/30/24 07:11 BMI result Body Mass Index 26.5 Const: General: anxious and tired appearing Nutritional Appearance: average body habitus Limitations: other limitations (Right BKA) HEENT: Head: Yes normocephalic and Yes atraumatic Resp: Effort & Inspection: normal respiratory effort Extrem: Other: Right BKA wounds clean, dry, and intact without redness or discharge. Left lower extremity with several areas of desquamated skin mainly in the lateral calf. Necrotic skin measuring 4 cm in diameter was excised with the scissors to reveal straw-colored tissue below. This was then protected with dry sterile dressings. Results Labs 10/30/24 06:09 10/30/24 06:09 Labs: Abnormal lab results 10/29/24 10/29/24 10/29/24 Range/Units 14:42 15:08 15:14 WBC 29.3 H (4.8-10.8) X10*3/uL RBC 3.94 L (4.60-5.80) X10*6/uL Hgb 9.9 L (14.0-18.0) g/dl Hct 32.3 L (42.0-52.0) % MCH 25.1 L (27.0-33.0) pg MCHC 30.7 L (31.0-36.0) g/dl Plt Count 674 H D (160-400) X10*3/uL Immature Gran % (Auto) 0.9 H (0.0-0.4) % Neut % (Auto) 91.4 H (45-73) % Lymph % (Auto) 3.9 L (20-40) % Lymph # (Auto) 1.1 L (1.2-4.9) X10*3/uL Abs Immat Gran (auto) 0.25 H (0.00-0.03) X10*3/uL Absolute Neuts (auto) 26.8 H (2.0-8.3) x10*3/uL ESR 100 H (0-15) MM/HR Carbon Dioxide 33 H (22-29) mmol/L Anion Gap 10 L (12-20) POC Glucose 195 H (60-115) mg/dL Random Glucose 215 H (60-115) mg/dL Calcium (8.4-10.2) mg/dL C-Reactive Protein 19.32 H (< or = 0.50) mg/dL Total Protein 8.3 H (6.5-8.0) g/dL Albumin 2.6 L (3.5-5.0) g/dL 10/29/24 10/30/24 10/30/24 Range/Units 20:28 06:09 07:14 WBC 21.1 H (4.8-10.8) X10*3/uL RBC 3.41 L (4.60-5.80) X10*6/uL Hgb 8.5 L (14.0-18.0) g/dl Hct 28.4 L (42.0-52.0) % MCH 24.9 L (27.0-33.0) pg MCHC 29.9 L (31.0-36.0) g/dl Plt Count 555 H (160-400) X10*3/uL Immature Gran % (Auto) 0.8 H (0.0-0.4) % Neut % (Auto) 86.0 H (45-73) % Lymph % (Auto) 7.6 L (20-40) % Lymph # (Auto) (1.2-4.9) X10*3/uL Abs Immat Gran (auto) 0.16 H (0.00-0.03) X10*3/uL Absolute Neuts (auto) 18.2 H (2.0-8.3) x10*3/uL ESR (0-15) MM/HR Carbon Dioxide (22-29) mmol/L Anion Gap (12-20) POC Glucose 165 H 134 H (60-115) mg/dL Random Glucose 154 H (60-115) mg/dL Calcium 8.2 L D (8.4-10.2) mg/dL C-Reactive Protein (< or = 0.50) mg/dL Total Protein (6.5-8.0) g/dL Albumin (3.5-5.0) g/dL Short CBC 10/29/24 10/30/24 Range/Units 14:42 06:09 WBC 29.3 H 21.1 H (4.8-10.8) X10*3/uL Hgb 9.9 L 8.5 L (14.0-18.0) g/dl Hct 32.3 L 28.4 L (42.0-52.0) % Plt Count 674 H D 555 H (160-400) X10*3/uL BMP 10/29/24 10/30/24 14:42 06:09 Sodium 138 140 Potassium 3.7 D 3.3 Chloride 99 102 Carbon Dioxide 33 H 27 BUN 14 16 Creatinine 1.18 0.99 Calcium 8.9 D 8.2 L D Liver Function 10/29/24 Range/Units 14:42 Total Bilirubin 0.3 (0.0-1.0) mg/dL AST 24 (5-37) U/L ALT 7 (0-40) U/L Alkaline Phosphatase 81 (39-117) U/L Albumin 2.6 L (3.5-5.0) g/dL All other labs normal. Assessment and Plan (1) Bilateral lower leg cellulitis: Status: Acute Plan 63-year-old male patient with history of right BKA now with ulcerated skin in the left lower extremity. Left transmetatarsal amputation is clean and intact. Multiple skin lesions are noted along the calf 1 of which was debrided today. Clean dressings applied today. We will start daily dressing changes; antibiotics per hospitalist team. Procedures Date of Service Date of Service: 10/30/24
--- NOTE | 2024-10-30 09:12 | HO.PM.IMPN ---
Subjective Subjective Date of Service: 10/30/24 Interval History: f/u on sepsis, encephalopathy, wound infection interval history: confusion is resolved, no fever. Physical Exam Vital Signs: Vital Signs: Last Vital Signs Temp 98.8 F 10/30/24 07:11 Pulse 66 10/30/24 07:11 Resp 16 10/30/24 07:11 BP 172/78 H 10/30/24 07:11 Pulse Ox 99 10/30/24 07:11 O2 Del Method Room Air 10/30/24 07:11 BMI result Body Mass Index 26.5 Const: Other: General: AO X 3, no acute distress Resp: CTA bilateral CVS: S1,S2,RRR GI: +BS, NT, no distention Skin: see pic in h and p of 10/29 Neuro: motor grossly intact Psych: appropriate affect Objective Data Active Medications Acetaminophen (Acetaminophen 325 Mg Tablet) 650 mg PO Q6H PRN PRN Reason: Pain, Mild (Pain Scale 1-3), fever or headache Benzonatate (Benzonatate 100 Mg Capsule) 100 mg PO TID PRN PRN Reason: Cough Calcium Carbonate (Calcium Carbonate 750 Mg Tab.Chew) 750 mg PO Q4H PRN PRN Reason: Heartburn Enoxaparin Sodium (Enoxaparin Sodium 40 Mg/0.4 Ml Syringe) 40 mg SUBCUT Q24H [facility] Last Admin: 10/29/24 17:15 Dose: 40 mg Documented By: MANNY Glucose (Glucose Gel 15 Gm Gel..Gram.) 15 gm PO Q15M PRN; Protocol PRN Reason: per Hypoglycemia Standing Ord. Piperacillin Sod/Tazobactam (Sod 3.375 gm/ Sodium Chloride) 50 mls @ 100 mls/hr IV Q6H [facility] Last Infusion: 10/30/24 09:11 Dose: Infused Documented By: MARTHA Dextrose (D10) 250 mls @ 750 mls/hr IV Q15M PRN; Protocol PRN Reason: per Hypoglycemia Standing Ord. Vancomycin HCl 750 mg/ Sodium (Chloride) 265 mls @ 265 mls/hr IV Q12H [facility] Last Infusion: 10/30/24 07:26 Dose: Infused Documented By: MARTHA Insulin Human Lispro (Insulin Lispro 100 Unit/Ml 3 Ml Vial) 0 unit SUBCUT QIDACHS [facility]; Protocol Last Admin: 10/30/24 07:27 Dose: Not Given Documented By: MARTHA Non-Admin Reason: No Insulin Coverage Magnesium Hydroxide (Milk Of Magnesia 30 Ml Oral.Susp) 30 ml PO DAILY PRN PRN Reason: Constipation Melatonin (Melatonin 3 Mg Tablet) 6 mg PO BEDTIME PRN PRN Reason: Insomnia Ondansetron HCl (Ondansetron Hcl 4 Mg/2 Ml Vial) 4 mg IVPUSH Q8H PRN PRN Reason: Nausea and Vomiting Pharmacy Consult (Consult Rx Vancomycin Dosing) 1 each MISCELLANE DAILY PRN PRN Reason: Consult order Sodium Chloride (0.9 % Sodium Chloride Flush 3 Ml Syringe) 3 ml IVFLUSH QSHIFT [facility] Last Admin: 10/30/24 08:15 Dose: Not Given Documented By: MARTHA Non-Admin Reason: IV Running Labs 10/30/24 06:09 10/30/24 06:09 Labs: Laboratory Results - last 24 hr 10/29/24 10/29/24 10/29/24 14:42 15:08 15:14 MCV 82.0 MCH 25.1 L MCHC 30.7 L RDW 15.1 Plt Count 674 H D MPV 9.8 Immature Gran % (Auto) 0.9 H Neut % (Auto) 91.4 H Lymph % (Auto) 3.9 L [place] % (Auto) 3.6 Eos % (Auto) 0.0 Baso % (Auto) 0.2 Lymph # (Auto) 1.1 L [place] # (Auto) 1.0 Eos # (Auto) 0.0 Baso # (Auto) 0.1 Abs Immat Gran (auto) 0.25 H Absolute Neuts (auto) 26.8 H Absolute Nucleated RBC 0.000 Nucleated RBC % (auto) 0.0 Smear Tech's Comments VERIFIED ESR 100 H Anion Gap 10 L Estim Creat Clear Calc 69.1 Estimated GFR > 60 POC Glucose 195 H Random Glucose 215 H Lactic Acid 1.7 Calcium 8.9 D Magnesium 1.8 Total Bilirubin 0.3 AST 24 ALT 7 Alkaline Phosphatase 81 C-Reactive Protein 19.32 H Total Protein 8.3 H Albumin 2.6 L Influenza Type A (PCR) Influenza Type B (PCR) RSV RNA Qual (PCR) SARS-CoV-2 RNA (RT-PCR) 10/29/24 10/29/24 10/30/24 15:36 20:28 06:09 MCV 83.3 MCH 24.9 L MCHC 29.9 L RDW 15.3 Plt Count 555 H MPV 9.6 Immature Gran % (Auto) 0.8 H Neut % (Auto) 86.0 H Lymph % (Auto) 7.6 L [place] % (Auto) 4.9 Eos % (Auto) 0.5 Baso % (Auto) 0.2 Lymph # (Auto) 1.6 [place] # (Auto) 1.0 Eos # (Auto) 0.1 Baso # (Auto) 0.1 Abs Immat Gran (auto) 0.16 H Absolute Neuts (auto) 18.2 H Absolute Nucleated RBC 0.000 Nucleated RBC % (auto) 0.0 Smear Tech's Comments ESR Anion Gap 14 Estim Creat Clear Calc 82.3 Estimated GFR > 60 POC Glucose 165 H Random Glucose 154 H Lactic Acid Calcium 8.2 L D Magnesium Total Bilirubin AST ALT Alkaline Phosphatase C-Reactive Protein Total Protein Albumin Influenza Type A (PCR) NEGATIVE Influenza Type B (PCR) NEGATIVE RSV RNA Qual (PCR) NEGATIVE SARS-CoV-2 RNA (RT-PCR) NEGATIVE 10/30/24 07:14 MCV MCH MCHC RDW Plt Count MPV Immature Gran % (Auto) Neut % (Auto) Lymph % (Auto) [place] % (Auto) Eos % (Auto) Baso % (Auto) Lymph # (Auto) [place] # (Auto) Eos # (Auto) Baso # (Auto) Abs Immat Gran (auto) Absolute Neuts (auto) Absolute Nucleated RBC Nucleated RBC % (auto) Smear Tech's Comments ESR Anion Gap Estim Creat Clear Calc Estimated GFR POC Glucose 134 H Random Glucose Lactic Acid Calcium Magnesium Total Bilirubin AST ALT Alkaline Phosphatase C-Reactive Protein Total Protein Albumin Influenza Type A (PCR) Influenza Type B (PCR) RSV RNA Qual (PCR) SARS-CoV-2 RNA (RT-PCR) Microbiology Microbiology Results: Microbiology 10/29/24 14:50 Blood Culture - Preliminary Blood - Venous Prelim: GPC Gram Stain only Assessment and Plan (1) Cellulitis: Status: Acute (2) Skin infection: Status: Acute (3) Bilateral lower leg cellulitis: Status: Acute Plan Pt 63-year-old male with a PMH significant for? PVD s/p right BKA 09/2023, insulin-dependent type 2 diabetes, hx of left ankle/foot osteomyelitis, left TMA, AFib not on anticoagulation, HTN, hepatitis-C s/p tx in 2009, and chronically wheelchair-bound who presents to the ED with?confusion and lethargy x3 days, worse this morning. Pt will be admitted to the hospital for treatment and further evaluation of acute encephalopathy in the setting of left lower extremity cellulitis with sepsis secondary to chronic diabetic foot ulcer. Acute metabolic encephalopathy related to sepsis, presertnly at baseline -trreat underlying infection Sepsis d/t wound infection, cellulitis--has multiple wounds, see pics, elevated ESR and CRP, sepsis resolved. -WBC remains markedly elevated yet better -blood cultures 1/2 gram positive cocci -wound care consulst -surgery consult for possible debridment -continue Vanco and Zosyn started 10/29 1/2 GPCi bacteremia -Vanco and Zosyn as above -id consult Insulin-dependent type 2 diabetes Sliding-scale insulin, Lantus Diabetic diet Paroxysmal AFib Continue diltiazem Not on anticoagulation Opioid use disorder Continue methadone Chronic normocytic anemia Stable, baseline Full Code Attending:?Dr. Ivy DVT Prophylaxis: Lovenox need for inpt: sepsis needing iv Abx Quality Stroke Does the patient have a stroke diagnosis?: No VTE Prior VTE?: No VTE Risk Level:: Medical - moderate - high VTE Device Contraindication: Treatment Not Indicated VTE Drug Contraindication: N/A - Med Ordered
--- NOTE | 2024-10-30 09:16 | PHA.MEDREC ---
Addendum entered by Rios Jones 10/30/24 09:24: reviewed Original Note: Pharmacy Consult ? Medication Reconciliation Pharmacy has completed the medication reconciliation. Spoke to patient to confirm med list. Patient states he is no longer taking Amoxicillin pot Clav[place] 875-125 mg, Doxycycline hyclate 100 mg, Losartan 50 mg. Patient states he takes Methadone 80 mg daily through [facility] [place], last dose was 10/29/24.
--- NOTE | 2024-10-30 09:36 | MHC.CM.PN ---
PATIENT REPORTS HE LIVES W/ NIECE AND SOMETIMES STAYS W/ HIS DTR. DTR IS [employer], 32 HRS/WK. PATIENT IS MOSTLY W/C BOUND, L BKA W/ PROSTHETIC. ACTIVE W/ ALLIED VNA FOR SN - WOUND CARE QOD AND METHADONE DELIVERY. PCP ALIREZA HAWTHORNE HCP ON FILE AND VERIFIED, DTR SABRINA IS [facility]. DP: GOAL IS HOME, RESUME SERVICES. DTR TO TRANSPORT. CM WILL CONTINUE TO FOLLOW.
--- NOTE | 2024-10-30 09:43 | HE.PHANOTE ---
Re Methadone Pt receives 80mg daily from [facility] [place]. Last dose was 10/29/24.
[2024-10-30] MEDS: dilTIAZem HCL CD 240 MG CAP.ER.DEG PO (09:57)
[2024-10-30] MEDS: Insulin Glargine,Hum.rec.anlog 100 UNIT/ML 10 ML VIAL 10 UNIT SUBCUT (09:57)
[2024-10-30] MEDS: hydrALAZINE HCl 50 MG TABLET PO ×2 (09:57→20:08)
[2024-10-30 11:12] LABS: Glucose, Whole Blood 189 mg/dL (60-115)
[2024-10-30] MEDS: Insulin Lispro 100 UNIT/ML 3 ML VIAL SUBCUT ×3 (11:15→20:08)
--- NOTE | 2024-10-30 11:56 | PC.NURSE ---
unable to fulfill airloss bed intervention due to none being available at this time.
[2024-10-30 13:38] VITALS: BMI 26.5
--- NOTE | 2024-10-30 13:47 | MHC.CLN ---
NUTRITION DIET=DIABETIC 2000 KCALS. INCREASED NUTRITION NEEDS DUE TO PRESSURE INJURY/WOUNDS. STAGE II PI TO RIGHT POSTERIOR THIGH. ADDING ENSURE MAX BID TO PROMOTE WOUND HEALING AND NUTRITIONAL INTAKE. PROVIDES 300 KCALS, 60 G PROTEIN. SEE CLINICAL NUTRITION ASSESSMENT 10/30/24.
[2024-10-30 14:46] LABS: Appearance Urine Cloudy; Color Urine Yellow; Glucose Urine UA 250 mg/dL (Negative); Leukocyte Esterase Urine Negative (Negative); Nitrite Urine Negative (Negative); PH 5.5 (5.0-9.0); Specific Gravity - Urine >= 1.030 (1.005-1.025); UMIC TRIGGER UACC YES; Urine Blood Trace (Negative); Urine Ketones Negative (Negative); Urine Protein 300 (3+) mg/dL (Neg-Trace)
[2024-10-30 14:51] LABS: Bacteria Urine None Seen (None Seen); WBC Urine 0-5 /HPF (0-5)
[2024-10-30 15:25] VITALS: BP 155/74; PULSE 77; RESP 16; TEMP 36.3; O2SAT 98
[2024-10-30 15:35] LABS: Glucose, Whole Blood 195 mg/dL (60-115)
[2024-10-30] MEDS: Enoxaparin Sodium 40 MG/0.4 ML SYRINGE SUBCUT (16:25)
[2024-10-30 16:46] LABS: Vancomycin Random 15.4 mcg/mL (15-20)
[2024-10-30 19:21] VITALS: BP 162/77; PULSE 67; RESP 18; TEMP 36.5; O2SAT 94
[2024-10-30 20:00] LABS: Glucose, Whole Blood 153 mg/dL (60-115)
[2024-10-30] MEDS: 0.9 % Sodium Chloride Flush 3 ML SYRINGE IVFLUSH (20:08)
[2024-10-31] MEDS: Piperacillin Sodium/Tazobactam 3.375 GM in 0.9 % Sodium Chloride 50 ML IV ×2 (02:42→07:49)
[2024-10-31 03:25] VITALS: BP 185/81; PULSE 63; RESP 18; TEMP 36.4; O2SAT 95
[2024-10-31] MEDS: vancomycin HCL 750 MG in 0.9 % Sodium Chloride 250 ML 265 MG IV (05:44)
[2024-10-31 06:48] LABS: Creatinine Clr Calc Pharmacy 82.3; Estimated Glomerular Filt Rate > 60
[2024-10-31 07:27] VITALS: BP 188/70; PULSE 60; RESP 16; TEMP 37; O2SAT 98
[2024-10-31 07:30] LABS: MANUAL DIFF FLAG NO
[2024-10-31 07:38] LABS: Basophils Percent Auto 0.3 % (0-2); Eosinophils Absolute Auto 0.2 X10*3/uL (0.0-0.4); Eosinophils Percent Auto 1.3 % (0-4); Hematocrit 30.8 % (42.0-52.0); Hemoglobin 9.3 g/dl (14.0-18.0); Imm Gran Abs Auto 0.08 X10*3/uL (0.00-0.03); Imm Gran Pct Auto 0.6 % (0.0-0.4); Lymphocytes Absolute Auto 2.2 X10*3/uL (1.2-4.9); Lymphocytes Percent Auto 17.3 % (20-40); Mean Corpuscular HGB Conc 30.2 g/dl (31.0-36.0); Mean Corpuscular Hemoglobin 24.7 pg (27.0-33.0); Mean Corpuscular Volume 81.9 fL (80.0-98.0); Mean Platelet Volume 9.9 fL (9.4-12.4); Monocytes Absolute Auto 0.8 X10*3/uL (0.1-1.2); Neutrophils Absolute Auto 9.4 x10*3/uL (2.0-8.3); Neutrophils Percent Auto 74.5 % (45-73); Platelet Count 539 X10*3/uL (160-400); Red Blood Count 3.76 X10*6/uL (4.60-5.80); Red Cell Distribution Width 15.3 % (11.0-16.0); White Blood Count 12.6 X10*3/uL (4.8-10.8)
[2024-10-31] MEDS: dilTIAZem HCL CD 240 MG CAP.ER.DEG PO (07:47)
[2024-10-31] MEDS: Insulin Glargine,Hum.rec.anlog 100 UNIT/ML 10 ML VIAL 10 UNIT SUBCUT (07:47)
[2024-10-31] MEDS: hydrALAZINE HCl 50 MG TABLET PO ×2 (07:47→20:44)
[2024-10-31 07:48] LABS: Glucose, Whole Blood 128 mg/dL (60-115)
[2024-10-31] MEDS: methADONE HCl 20 MG/2 ML ORAL.CONC 80 MG PO (07:48)
[2024-10-31] MEDS: 0.9 % Sodium Chloride Flush 3 ML SYRINGE IVFLUSH ×3 (07:58→20:45)
--- NOTE | 2024-10-31 09:26 | P.PNIM_ITS ---
Subjective Subjective Date of Service: 10/31/24 Interval History: f/u on sepsis, encephalopathy, wound infection interval history: confusion is resolved, no fever. blood culture strep pyogenes Physical Exam 2 Vital Signs: Vital Signs: Last Vital Signs Temp 98.6 F 10/31/24 07:27 Pulse 60 10/31/24 07:27 Resp 16 10/31/24 07:27 BP 188/70 H 10/31/24 07:27 Pulse Ox 98 10/31/24 07:27 O2 Del Method Room Air 10/31/24 07:27 BMI result Body Mass Index 26.5 Const: Other: General: AO X 3, no acute distress Resp: CTA bilateral CVS: S1,S2,RRR GI: +BS, NT, no distention Skin: see pic in h and p of 10/29 Neuro: motor grossly intact Psych: appropriate affect Objective Data Active Medications Acetaminophen (Acetaminophen 325 Mg Tablet) 650 mg PO Q6H PRN PRN Reason: Pain, Mild (Pain Scale 1-3), fever or headache Amitriptyline HCl (Amitriptyline Hcl 50 Mg Tablet) 50 mg PO BEDTIME PRN PRN Reason: Depression Benzonatate (Benzonatate 100 Mg Capsule) 100 mg PO TID PRN PRN Reason: Cough Calcium Carbonate (Calcium Carbonate 750 Mg Tab.Chew) 750 mg PO Q4H PRN PRN Reason: Heartburn Diltiazem HCl (Diltiazem Hcl Cd 240 Mg Cap.Er.Deg) 240 mg PO DAILY [facility]; Protocol Last Admin: 10/31/24 07:47 Dose: 240 mg Documented By: AMELIA Enoxaparin Sodium (Enoxaparin Sodium 40 Mg/0.4 Ml Syringe) 40 mg SUBCUT Q24H [facility] Last Admin: 10/30/24 16:25 Dose: 40 mg Documented By: AMELIA Glucose (Glucose Gel 15 Gm Gel..Gram.) 15 gm PO Q15M PRN; Protocol PRN Reason: per Hypoglycemia Standing Ord. Hydralazine HCl (Hydralazine Hcl 50 Mg Tablet) 50 mg PO BID [facility]; Protocol Last Admin: 10/31/24 07:47 Dose: 50 mg Documented By: AMELIA Dextrose (D10) 250 mls @ 750 mls/hr IV Q15M PRN; Protocol PRN Reason: per Hypoglycemia Standing Ord. Insulin Glargine (Insulin Glargine,Hum.Rec.Anlog 100 Unit/Ml 10 Ml Vial) 10 unit SUBCUT DAILY [facility] Last Admin: 10/31/24 07:47 Dose: 10 unit Documented By: AMELIA Insulin Human Lispro (Insulin Lispro 100 Unit/Ml 3 Ml Vial) 0 unit SUBCUT QIDACHS [facility]; Protocol Last Admin: 10/31/24 07:57 Dose: Not Given Documented By: AMELIA Non-Admin Reason: No Insulin Coverage Magnesium Hydroxide (Milk Of Magnesia 30 Ml Oral.Susp) 30 ml PO DAILY PRN PRN Reason: Constipation Melatonin (Melatonin 3 Mg Tablet) 6 mg PO BEDTIME PRN PRN Reason: Insomnia Methadone HCl (Methadone Hcl 20 Mg/2 Ml Oral.Conc) 80 mg PO DAILY [facility] Last Admin: 10/31/24 07:48 Dose: 80 mg Documented By: AMELIA Co-signed By: AYESHA Ondansetron HCl (Ondansetron Hcl 4 Mg/2 Ml Vial) 4 mg IVPUSH Q8H PRN PRN Reason: Nausea and Vomiting Pharmacy Consult (Consult Rx Vancomycin Dosing) 1 each MISCELLANE DAILY PRN PRN Reason: Consult order Sodium Chloride (0.9 % Sodium Chloride Flush 3 Ml Syringe) 3 ml IVFLUSH QSMEFT [facility] Last Admin: 10/31/24 07:58 Dose: 3 ml Documented By: AMELIA Labs 10/31/24 05:29 10/31/24 05:29 Labs: Laboratory Results - last 24 hr 10/30/24 10/30/24 10/30/24 11:06 14:32 15:31 MCV MCH MCHC RDW Plt Count MPV Immature Gran % (Auto) Neut % (Auto) Lymph % (Auto) [place] % (Auto) Eos % (Auto) Baso % (Auto) Lymph # (Auto) [place] # (Auto) Eos # (Auto) Baso # (Auto) Abs Immat Gran (auto) Absolute Neuts (auto) Absolute Nucleated RBC Nucleated RBC % (auto) Hold Purple Top Estim Creat Clear Calc Estimated GFR POC Glucose 189 H 195 H Urine Color Yellow Urine Appearance Cloudy Urine pH 5.5 Ur Specific [place] >= 1.030 H Urine Protein 300 (3+) H Urine Glucose (UA) 250 H Urine Ketones Negative Urine Blood Trace H Urine Nitrite Negative Ur Leukocyte Esterase Negative Urine RBC 3-5 H Urine WBC 0-5 Ur Squamous Epith Cells 3-5 Urine Bacteria None Seen Hyaline Casts 3-5 Random Vancomycin 10/30/24 10/30/24 10/31/24 15:52 19:55 05:29 MCV 81.9 MCH 24.7 L MCHC 30.2 L RDW 15.3 Plt Count 539 H MPV 9.9 Immature Gran % (Auto) 0.6 H Neut % (Auto) 74.5 H Lymph % (Auto) 17.3 L [place] % (Auto) 6.0 Eos % (Auto) 1.3 Baso % (Auto) 0.3 Lymph # (Auto) 2.2 [place] # (Auto) 0.8 Eos # (Auto) 0.2 Baso # (Auto) 0.0 Abs Immat Gran (auto) 0.08 H Absolute Neuts (auto) 9.4 H Absolute Nucleated RBC 0.000 Nucleated RBC % (auto) 0.0 Hold Purple Top SEE NOTE Estim Creat Clear Calc 82.3 Estimated GFR > 60 POC Glucose 153 H Urine Color Urine Appearance Urine pH Ur Specific [place] Urine Protein Urine Glucose (UA) Urine Ketones Urine Blood Urine Nitrite Ur Leukocyte Esterase Urine RBC Urine WBC Ur Squamous Epith Cells Urine Bacteria Hyaline Casts Random Vancomycin 15.4 10/31/24 07:36 MCV MCH MCHC RDW Plt Count MPV Immature Gran % (Auto) Neut % (Auto) Lymph % (Auto) [place] % (Auto) Eos % (Auto) Baso % (Auto) Lymph # (Auto) [place] # (Auto) Eos # (Auto) Baso # (Auto) Abs Immat Gran (auto) Absolute Neuts (auto) Absolute Nucleated RBC Nucleated RBC % (auto) Hold Purple Top Estim Creat Clear Calc Estimated GFR POC Glucose 128 H Urine Color Urine Appearance Urine pH Ur Specific [place] Urine Protein Urine Glucose (UA) Urine Ketones Urine Blood Urine Nitrite Ur Leukocyte Esterase Urine RBC Urine WBC Ur Squamous Epith Cells Urine Bacteria Hyaline Casts Random Vancomycin Microbiology Microbiology Results: Microbiology 10/29/24 14:50 Blood Culture - Preliminary Blood - Venous Streptococcus pyogenes (Grp A) 10/29/24 14:50 Blood Culture - Preliminary Blood - Venous No growth after 24 hours. Assessment and Plan (1) Cellulitis: Status: Acute (2) Skin infection: Status: Acute (3) Bilateral lower leg cellulitis: Status: Acute Plan Pt 63-year-old male with a PMH significant for? PVD s/p right BKA 09/2023, insulin-dependent type 2 diabetes, hx of left ankle/foot osteomyelitis, left TMA, AFib not on anticoagulation, HTN, hepatitis-C s/p tx in 2009, and chronically wheelchair-bound who presents to the ED with?confusion and lethargy x3 days, worse this morning. Pt will be admitted to the hospital for treatment and further evaluation of acute encephalopathy in the setting of left lower extremity cellulitis with sepsis secondary to chronic diabetic foot ulcer. Acute metabolic encephalopathy related to sepsis, presertnly at baseline -trreat underlying infection Sepsis d/t wound infection, cellulitis--has multiple wounds, see pics, elevated ESR and CRP, sepsis resolved. -WBC signifianctly down -blood cultures 11/12 strep pyogenes -wound care consulst -wound debrided by surgery 10/30 -continue Vanco and Zosyn started 10/29 Streptococcus pyogenes -stop vanco and zosyn, 10/31. -start ceftriaxone 2 gm daily 10/31 -id consult Insulin-dependent type 2 diabetes Sliding-scale insulin, Lantus Diabetic diet Paroxysmal AFib Continue diltiazem Not on anticoagulation Opioid use disorder Continue methadone Chronic normocytic anemia Stable, baseline Full Code Attending:?Dr. Ivy DVT Prophylaxis: Lovenox need for inpt: sepsis needing iv Abx Quality Stroke Does the patient have a stroke diagnosis?: No VTE Prior VTE?: No VTE Risk Level:: Medical - moderate - high VTE Device Contraindication: Treatment Not Indicated VTE Drug Contraindication: N/A - Med Ordered
[2024-10-31] MEDS: cefTRIAXone sodium 2 GM VIAL IVPUSH (10:06)
[2024-10-31 11:36] LABS: Glucose, Whole Blood 171 mg/dL (60-115)
[2024-10-31 11:39] VITALS: BP 156/77; PULSE 70
[2024-10-31] MEDS: Insulin Lispro 100 UNIT/ML 3 ML VIAL SUBCUT ×3 (11:47→20:44)
[2024-10-31 16:00] VITALS: BP 156/77; PULSE 64; RESP 16; TEMP 37.1; O2SAT 95
[2024-10-31 16:52] LABS: Glucose, Whole Blood 169 mg/dL (60-115)
[2024-10-31] MEDS: Enoxaparin Sodium 40 MG/0.4 ML SYRINGE SUBCUT (17:07)
[2024-10-31 20:00] VITALS: BP 168/78; PULSE 56; RESP 18; TEMP 36.4; O2SAT 96
[2024-10-31 20:28] LABS: Glucose, Whole Blood 161 mg/dL (60-115)
[2024-11-01 03:59] VITALS: BP 164/82; PULSE 63; RESP 16; TEMP 36.6; O2SAT 96
[2024-11-01 06:22] LABS: Creatinine Clr Calc Pharmacy 83.2; Estimated Glomerular Filt Rate > 60
[2024-11-01 07:32] VITALS: BP 184/87; PULSE 58; RESP 16; TEMP 36.2; O2SAT 98
[2024-11-01 07:40] LABS: Glucose, Whole Blood 124 mg/dL (60-115)
[2024-11-01] MEDS: dilTIAZem HCL CD 240 MG CAP.ER.DEG PO (07:53)
[2024-11-01] MEDS: hydrALAZINE HCl 50 MG TABLET PO ×2 (07:53→20:45)
[2024-11-01] MEDS: methADONE HCl 20 MG/2 ML ORAL.CONC 80 MG PO (07:53)
[2024-11-01] MEDS: Insulin Glargine,Hum.rec.anlog 100 UNIT/ML 10 ML VIAL 10 UNIT SUBCUT (07:53)
[2024-11-01] MEDS: cefTRIAXone sodium 2 GM VIAL IVPUSH (10:08)
[2024-11-01 10:23] VITALS: BP 158/68; PULSE 62; RESP 16; TEMP 36.3; O2SAT 97
--- NOTE | 2024-11-01 10:53 | P.PNIM_ITS ---
Subjective Subjective Date of Service: 11/01/24 Interval History: f/u on sepsis, encephalopathy, wound infection interval history: no encephalopathy, feels better Physical Exam 2 Vital Signs: Vital Signs: Last Vital Signs Temp 97.4 F 11/01/24 10:23 Pulse 62 11/01/24 10:23 Resp 16 11/01/24 10:23 BP 158/68 H 11/01/24 10:23 Pulse Ox 97 11/01/24 10:23 O2 Del Method Room Air 11/01/24 10:23 BMI result Body Mass Index 26.5 Const: Other: General: AO X 3, no acute distress Resp: CTA bilateral CVS: S1,S2,RRR GI: +BS, NT, no distention Skin: see pic in h and p of 10/29 Neuro: motor grossly intact Psych: appropriate affect Objective Data Active Medications Acetaminophen (Acetaminophen 325 Mg Tablet) 650 mg PO Q6H PRN PRN Reason: Pain, Mild (Pain Scale 1-3), fever or headache Amitriptyline HCl (Amitriptyline Hcl 50 Mg Tablet) 50 mg PO BEDTIME PRN PRN Reason: Depression Benzonatate (Benzonatate 100 Mg Capsule) 100 mg PO TID PRN PRN Reason: Cough Calcium Carbonate (Calcium Carbonate 750 Mg Tab.Chew) 750 mg PO Q4H PRN PRN Reason: Heartburn Ceftriaxone Sodium (Ceftriaxone Sodium 2 Gm Vial) 2 gm IVPUSH Q24H [facility] Last Admin: 11/01/24 10:08 Dose: 2 gm Documented By: AMELIA Diltiazem HCl (Diltiazem Hcl Cd 240 Mg Cap.Er.Deg) 240 mg PO DAILY [facility]; Protocol Last Admin: 11/01/24 07:53 Dose: 240 mg Documented By: AMELIA Enoxaparin Sodium (Enoxaparin Sodium 40 Mg/0.4 Ml Syringe) 40 mg SUBCUT Q24H [facility] Last Admin: 10/31/24 17:07 Dose: 40 mg Documented By: AMELIA Glucose (Glucose Gel 15 Gm Gel..Gram.) 15 gm PO Q15M PRN; Protocol PRN Reason: per Hypoglycemia Standing Ord. Hydralazine HCl (Hydralazine Hcl 50 Mg Tablet) 50 mg PO BID [facility]; Protocol Last Admin: 11/01/24 07:53 Dose: 50 mg Documented By: AMELIA Dextrose (D10) 250 mls @ 750 mls/hr IV Q15M PRN; Protocol PRN Reason: per Hypoglycemia Standing Ord. Insulin Glargine (Insulin Glargine,Hum.Rec.Anlog 100 Unit/Ml 10 Ml Vial) 10 unit SUBCUT DAILY [facility] Last Admin: 11/01/24 07:53 Dose: 10 unit Documented By: AMELIA Insulin Human Lispro (Insulin Lispro 100 Unit/Ml 3 Ml Vial) 0 unit SUBCUT QIDACHS [facility]; Protocol Last Admin: 11/01/24 07:37 Dose: Not Given Documented By: AMELIA Non-Admin Reason: No Insulin Coverage Magnesium Hydroxide (Milk Of Magnesia 30 Ml Oral.Susp) 30 ml PO DAILY PRN PRN Reason: Constipation Melatonin (Melatonin 3 Mg Tablet) 6 mg PO BEDTIME PRN PRN Reason: Insomnia Methadone HCl (Methadone Hcl 20 Mg/2 Ml Oral.Conc) 80 mg PO DAILY [facility] Last Admin: 11/01/24 07:53 Dose: 80 mg Documented By: AMELIA Co-signed By: AYESHA Ondansetron HCl (Ondansetron Hcl 4 Mg/2 Ml Vial) 4 mg IVPUSH Q8H PRN PRN Reason: Nausea and Vomiting Sodium Chloride (0.9 % Sodium Chloride Flush 3 Ml Syringe) 3 ml IVFLUSH QSHIFT [facility] Last Admin: 11/01/24 08:40 Dose: Not Given Documented By: AMELIA Non-Admin Reason: Previously Administered Labs 10/31/24 05:29 11/01/24 05:35 Labs: Laboratory Results - last 24 hr 10/31/24 10/31/24 10/31/24 11:22 16:32 20:24 Hold Purple Top Estim Creat Clear Calc Estimated GFR POC Glucose 171 H 169 H 161 H 11/01/24 11/01/24 05:35 07:34 Hold Purple Top SEE NOTE Estim Creat Clear Calc 83.2 Estimated GFR > 60 POC Glucose 124 H Microbiology Microbiology Results: Microbiology 10/29/24 14:50 Blood Culture - Preliminary Blood - Venous No growth after 48 hours. 10/29/24 14:50 Blood Culture - Final Blood - Venous Streptococcus pyogenes (Grp A) Assessment and Plan (1) Cellulitis: Status: Acute (2) Skin infection: Status: Acute (3) Bilateral lower leg cellulitis: Status: Acute Plan 63-year-old male with a PMH significant for? PVD s/p right BKA 09/2023, insulin-dependent type 2 diabetes, hx of left ankle/foot osteomyelitis, left TMA, AFib not on anticoagulation, HTN, hepatitis-C s/p tx in 2009, and chronically wheelchair-bound who presents to the ED with?confusion and lethargy x3 days, worse this morning. Pt will be admitted to the hospital for treatment and further evaluation of acute encephalopathy in the setting of left lower extremity cellulitis with sepsis secondary to chronic diabetic foot ulcer. Acute metabolic encephalopathy related to sepsis, presertnly at baseline -trreat underlying infection Sepsis d/t wound infection, cellulitis--has multiple wounds, see pics, elevated ESR and CRP, sepsis resolved. -WBC signifianctly down -blood cultures 11/12 strep pyogenes -wound care consulst -wound debrided by surgery 10/30 -continue Vanco and Zosyn started 10/29 Streptococcus pyogenes bacteremia -stopped vanco and zosyn, 10/31. -start ceftriaxone 2 gm daily 10/31 -id consult pending Insulin-dependent type 2 diabetes Sliding-scale insulin, Lantus Diabetic diet Paroxysmal AFib Continue diltiazem Not on anticoagulation Opioid use disorder Continue methadone Chronic normocytic anemia Stable, baseline Full Code DVT Prophylaxis: Lovenox need for inpt: sepsis needing iv Abx Quality Stroke Does the patient have a stroke diagnosis?: No VTE Prior VTE?: No VTE Risk Level:: Medical - moderate - high VTE Device Contraindication: Treatment Not Indicated VTE Drug Contraindication: N/A - Med Ordered
[2024-11-01 10:59] LABS: MANUAL DIFF FLAG NO
[2024-11-01 11:04] LABS: Basophils Percent Auto 0.3 % (0-2); Eosinophils Absolute Auto 0.2 X10*3/uL (0.0-0.4); Eosinophils Percent Auto 1.7 % (0-4); Hematocrit 30.2 % (42.0-52.0); Hemoglobin 8.9 g/dl (14.0-18.0); Imm Gran Abs Auto 0.04 X10*3/uL (0.00-0.03); Imm Gran Pct Auto 0.4 % (0.0-0.4); Lymphocytes Percent Auto 21.3 % (20-40); Mean Corpuscular HGB Conc 29.5 g/dl (31.0-36.0); Mean Corpuscular Hemoglobin 24.6 pg (27.0-33.0); Mean Corpuscular Volume 83.4 fL (80.0-98.0); Mean Platelet Volume 9.7 fL (9.4-12.4); Monocytes Absolute Auto 0.6 X10*3/uL (0.1-1.2); Monocytes Percent Auto 6.4 % (2-11); Neutrophils Absolute Auto 6.5 x10*3/uL (2.0-8.3); Neutrophils Percent Auto 69.9 % (45-73); Platelet Count 513 X10*3/uL (160-400); Red Blood Count 3.62 X10*6/uL (4.60-5.80); Red Cell Distribution Width 15.3 % (11.0-16.0); White Blood Count 9.3 X10*3/uL (4.8-10.8)
[2024-11-01 11:08] LABS: Anion Gap 15 (12-20); Carbon Dioxide 26 mmol/L (22-29); Chloride 102 mmol/L (96-108); Potassium 3.7 mmol/L (3.3-5.1); Sodium 139 mmol/L (135-145)
[2024-11-01 11:23] LABS: Glucose, Whole Blood 193 mg/dL (60-115)
[2024-11-01] MEDS: Insulin Lispro 100 UNIT/ML 3 ML VIAL SUBCUT ×3 (11:37→20:44)
[2024-11-01 15:23] VITALS: BP 152/65; PULSE 64; RESP 16; TEMP 36.9; O2SAT 98
[2024-11-01 16:40] LABS: Glucose, Whole Blood 245 mg/dL (60-115)
[2024-11-01] MEDS: Enoxaparin Sodium 40 MG/0.4 ML SYRINGE SUBCUT (16:45)
[2024-11-01] MEDS: 0.9 % Sodium Chloride Flush 3 ML SYRINGE IVFLUSH ×2 (16:46→20:47)
[2024-11-01 19:23] VITALS: BP 165/76; PULSE 60; RESP 18; TEMP 36.2; O2SAT 96
[2024-11-01 19:55] LABS: Glucose, Whole Blood 219 mg/dL (60-115)
--- NOTE | 2024-11-01 23:12 | W.PM.IDCN ---
History of Present Illness Data of Consult Service Date: 11/01/24 Requesting physician: Davey Ivy Primary Care Provider: MD OVI Canales Reason for consult: Group A strep bacteremia He presents with weakness as well as bilateral leg cellulitis ,worst on right posterior thigh. He has Group A strep 10/29 blood and was switched today to Ceftriaxone . He feels better and WBC better today. Review of Systems Review of Systems: Yes all other systems are reviewed and are negative [facility] Past Medical History Medical History (Updated 11/01/24 @ 23:18 by Mariangel Dan MD) Group A streptococcal infection Open wound Hx of hepatitis Diabetic ulcer of right foot Atrial fibrillation Hypertension Diabetes Family History Family History Father History of lung cancer Mother History of diabetes mellitus Family history: reviewed and not pertinent Surgical History Surgical History Hx of surgical procedure (~08/06/24) 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 History of transmetatarsal amputation of foot (~09/2016) History of amputation of toe (~08/18/14) History of amputation of toe (~10/21/13) History of lipoma Social History Social History Household Members: Family Household Members Other:: mother Housing: House Housing Other:: patient is homeless, couch surfing with friends/family Are you a primary assisted living care manager to a significant other at home: No Do you presently have visiting nurse or other home services: Yes (organizational consultant's and visiting nurses.) Alcohol intake: never Comment: wheelchair bound, right left TMA Patient Tobacco Use Status: Current everyday Tobacco user Tobacco use type: Cigarette Cigarettes Per Day: 6 Years Smoked: 49 Smoked in Last 30 Days: Yes Patient Interested in Nicotine Replacement: No Patient Given Instructions on How to Stop Smoking: No Second Hand Smoke Exposure: No Use of substances other than those prescribed or required for medical reasons: No Substance Use Type: Crack/Cocaine Currently Displaying Signs/Symptoms of Drug Intoxication Withdrawal: No Have you been hit, kicked, punched, or otherwise hurt by someone within the past year? If so, by whom?: No Do you feel safe in your current relationship?: No Current Relationship Is there a partner from a previous relationship who is making you feel unsafe now?: No Are you made to feel afraid or neglected: No Advance Directives: Yes Advance Directives on File: Yes Advance Directives Date on File: 04/28/24 Do you have a plan to hurt others: No Plan Recently lost weight without trying: No How much weight loss: Not applicable Eating poorly because of decreased appetite: No Nutrition screen score: 0 Nutrition Risks: No Nutritional Risk Poor oral hygiene: No service: No Meds Allergies Allergy/AdvReac Type Severity Reaction Status Date / Time furosemide [Lasix] Allergy Intermediate Hives Verified 10/29/24 14:29 levofloxacin [Levaquin] Allergy Unknown Gastrointestinal Verified 10/29/24 14:29 Upset metronidazole [Flagyl] Allergy Unknown Unknown Verified 10/29/24 14:29 latex Allergy Rash Verified 10/29/24 14:29 contrast dye Allergy Unknown rash, hives Uncoded 10/29/24 14:29 Active Medications: Current Medications Acetaminophen (Acetaminophen 325 Mg Tablet) 650 mg PO Q6H PRN PRN Reason: Pain, Mild (Pain Scale 1-3), fever or headache Amitriptyline HCl (Amitriptyline Hcl 50 Mg Tablet) 50 mg PO BEDTIME PRN PRN Reason: Depression Benzonatate (Benzonatate 100 Mg Capsule) 100 mg PO TID PRN PRN Reason: Cough Calcium Carbonate (Calcium Carbonate 750 Mg Tab.Chew) 750 mg PO Q4H PRN PRN Reason: Heartburn Ceftriaxone Sodium (Ceftriaxone Sodium 2 Gm Vial) 2 gm IVPUSH Q24H [facility] Last Admin: 11/01/24 10:08 Dose: 2 gm Diltiazem HCl (Diltiazem Hcl Cd 240 Mg Cap.Er.Deg) 240 mg PO DAILY [facility]; Protocol Last Admin: 11/01/24 07:53 Dose: 240 mg Enoxaparin Sodium (Enoxaparin Sodium 40 Mg/0.4 Ml Syringe) 40 mg SUBCUT Q24H [facility] Last Admin: 11/01/24 16:45 Dose: 40 mg Glucose (Glucose Gel 15 Gm Gel..Gram.) 15 gm PO Q15M PRN; Protocol PRN Reason: per Hypoglycemia Standing Ord. Hydralazine HCl (Hydralazine Hcl 50 Mg Tablet) 50 mg PO BID [facility]; Protocol Last Admin: 11/01/24 20:45 Dose: 50 mg Dextrose (D10) 250 mls @ 750 mls/hr IV Q15M PRN; Protocol PRN Reason: per Hypoglycemia Standing Ord. Insulin Glargine (Insulin Glargine,Hum.Rec.Anlog 100 Unit/Ml 10 Ml Vial) 10 unit SUBCUT DAILY [facility] Last Admin: 11/01/24 07:53 Dose: 10 unit Insulin Human Lispro (Insulin Lispro 100 Unit/Ml 3 Ml Vial) 0 unit SUBCUT QIDACHS [facility]; Protocol Last Admin: 11/01/24 20:44 Dose: 4 unit Magnesium Hydroxide (Milk Of Magnesia 30 Ml Oral.Susp) 30 ml PO DAILY PRN PRN Reason: Constipation Melatonin (Melatonin 3 Mg Tablet) 6 mg PO BEDTIME PRN PRN Reason: Insomnia Methadone HCl (Methadone Hcl 20 Mg/2 Ml Oral.Conc) 80 mg PO DAILY [facility] Last Admin: 11/01/24 07:53 Dose: 80 mg Ondansetron HCl (Ondansetron Hcl 4 Mg/2 Ml Vial) 4 mg IVPUSH Q8H PRN PRN Reason: Nausea and Vomiting Sodium Chloride (0.9 % Sodium Chloride Flush 3 Ml Syringe) 3 ml IVFLUSH QSHIFT [facility] Last Admin: 11/01/24 20:47 Dose: 3 ml Home Medications ?Medication ?Instructions ?Recorded ?Confirmed ?Last Taken ?Type amitriptyline 50 mg tablet 50 mg PO BEDTIME PRN Depression 12/09/20 10/30/24 06/20/24 History blood sugar diagnostic (FreeStyle #10 ea 03/08/22 06/21/24 Unknown History Lite Strips) insulin syringe-needle U-100 1 mL #10 ea 03/08/22 10/28/23 Unknown History 31 gauge x 5/16 (BD Insulin Syringe Ultra-Fine) methadone 10 mg/mL oral concentrate 80 mg PO DAILY 04/10/24 10/30/24 10/29/24 History insulin glargine 100 unit/mL 10 unit subcut BID 10/30/24 10/30/24 10/29/24 History subcutaneous solution (Lantus U-100 Insulin) Physical Exam Vital Signs: Vital Signs: Last Vital Signs Temp 97.1 F 11/01/24 19:23 Pulse 60 11/01/24 19:23 Resp 18 11/01/24 19:23 BP 165/76 H 11/01/24 19:23 Pulse Ox 96 11/01/24 19:23 O2 Del Method Room Air 11/01/24 19:23 BMI result Body Mass Index 26.5 Const: General: cooperative HEENT: Head: Yes normal to inspection Face and sinus: Yes normal facial exam Mouth: Normal oral and palatal mucosa present Teeth and gingiva: dentition normal Eyes: General: appearance normal, both eyes and all related structures Pupils: Equal, round and reactive pupils present Resp: Effort & Inspection: normal respiratory effort Cardio: Rate: regular rate Rhythm: regular rhythm GI: Palpation (GI): Soft to palpation and nontender : General: Yes no CVA tenderness Back/Spine/Pelvis: Back: no CVA tenderness Skin: General skin exam: no rashes or lesions noted Neuro: General: moves all extremities Cranial nerves: Yes Equal, round and reactive pupils present Extrem: Other: right posterior thigh resolving cellulitis left lower extremity stable Psych: Appearance: grossly normal Results Labs 11/01/24 05:35 11/01/24 05:35 Labs: Short CBC 11/01/24 Range/Units 05:35 WBC 9.3 (4.8-10.8) X10*3/uL Hgb 8.9 L (14.0-18.0) g/dl Hct 30.2 L (42.0-52.0) % Plt Count 513 H (160-400) X10*3/uL BMP 11/01/24 05:35 Sodium 139 Potassium 3.7 Chloride 102 Carbon Dioxide 26 Creatinine 0.98 Microbiology Microbiology Results: Microbiology 10/29/24 14:50 Blood - Venous Blood Culture - Preliminary No growth after 48 hours. 10/29/24 14:50 Blood - Venous Blood Culture - Final Streptococcus pyogenes (Grp A) Assessment and Plan (1) Cellulitis: Qualifiers: Laterality: left Site of cellulitis: extremity Site of cellulitis of extremity: lower extremity Qualified Code(s): L03.116 - Cellulitis of left lower limb Status: Acute (2) Group A streptococcal infection: Status: Acute Plan Group A strep bacteremia Skin source He is doing better with Ceftriaxone and has no signs of endocarditis. Would continue Ceftiaxone. When better po cephalosporin like Ceftin bid for 14 days. Echo if signs endocarditis.
[2024-11-02 04:00] VITALS: BP 153/83; PULSE 64; RESP 18; TEMP 36.1; O2SAT 98
[2024-11-02 06:29] LABS: Creatinine Clr Calc Pharmacy 85.8; Estimated Glomerular Filt Rate > 60
[2024-11-02 07:14] VITALS: BP 177/86; PULSE 61; RESP 16; TEMP 36.1; O2SAT 99
[2024-11-02 07:25] LABS: Glucose, Whole Blood 207 mg/dL (60-115)
[2024-11-02] MEDS: hydrALAZINE HCl 50 MG TABLET PO (08:00)
[2024-11-02] MEDS: dilTIAZem HCL CD 240 MG CAP.ER.DEG PO (08:00)
[2024-11-02] MEDS: Insulin Glargine,Hum.rec.anlog 100 UNIT/ML 10 ML VIAL 10 UNIT SUBCUT (08:00)
[2024-11-02] MEDS: 0.9 % Sodium Chloride Flush 3 ML SYRINGE IVFLUSH (08:00)
[2024-11-02] MEDS: Insulin Lispro 100 UNIT/ML 3 ML VIAL SUBCUT (08:01)
[2024-11-02] MEDS: methADONE HCl 20 MG/2 ML ORAL.CONC 80 MG PO (08:01)
--- NOTE | 2024-11-02 08:15 | P.PNIM_ITS ---
Subjective Subjective Date of Service: 11/02/24 Interval History: f/u on sepsis, encephalopathy, wound infection interval history: no encephalopathy, feels better Physical Exam 2 Vital Signs: Vital Signs: Last Vital Signs Temp 97.0 F 11/02/24 07:14 Pulse 61 11/02/24 07:14 Resp 16 11/02/24 07:14 BP 177/86 H 11/02/24 07:14 Pulse Ox 99 11/02/24 07:14 O2 Del Method Room Air 11/02/24 07:14 BMI result Body Mass Index 26.5 Const: Other: General: AO X 3, no acute distress Resp: CTA bilateral CVS: S1,S2,RRR GI: +BS, NT, no distention Skin: see pic in h and p of 10/29 Neuro: motor grossly intact Psych: appropriate affect Objective Data Active Medications Acetaminophen (Acetaminophen 325 Mg Tablet) 650 mg PO Q6H PRN PRN Reason: Pain, Mild (Pain Scale 1-3), fever or headache Amitriptyline HCl (Amitriptyline Hcl 50 Mg Tablet) 50 mg PO BEDTIME PRN PRN Reason: Depression Benzonatate (Benzonatate 100 Mg Capsule) 100 mg PO TID PRN PRN Reason: Cough Calcium Carbonate (Calcium Carbonate 750 Mg Tab.Chew) 750 mg PO Q4H PRN PRN Reason: Heartburn Ceftriaxone Sodium (Ceftriaxone Sodium 2 Gm Vial) 2 gm IVPUSH Q24H [facility] Last Admin: 11/01/24 10:08 Dose: 2 gm Documented By: AMELIA Diltiazem HCl (Diltiazem Hcl Cd 240 Mg Cap.Er.Deg) 240 mg PO DAILY [facility]; Protocol Last Admin: 11/02/24 08:00 Dose: 240 mg Documented By: MARS Enoxaparin Sodium (Enoxaparin Sodium 40 Mg/0.4 Ml Syringe) 40 mg SUBCUT Q24H [facility] Last Admin: 11/01/24 16:45 Dose: 40 mg Documented By: AMELIA Glucose (Glucose Gel 15 Gm Gel..Gram.) 15 gm PO Q15M PRN; Protocol PRN Reason: per Hypoglycemia Standing Ord. Hydralazine HCl (Hydralazine Hcl 50 Mg Tablet) 50 mg PO BID [facility]; Protocol Last Admin: 11/02/24 08:00 Dose: 50 mg Documented By: MARS Dextrose (D10) 250 mls @ 750 mls/hr IV Q15M PRN; Protocol PRN Reason: per Hypoglycemia Standing Ord. Insulin Glargine (Insulin Glargine,Hum.Rec.Anlog 100 Unit/Ml 10 Ml Vial) 10 unit SUBCUT DAILY [facility] Last Admin: 11/02/24 08:00 Dose: 10 unit Documented By: MARS Insulin Human Lispro (Insulin Lispro 100 Unit/Ml 3 Ml Vial) 0 unit SUBCUT QIDACHS [facility]; Protocol Last Admin: 11/02/24 08:01 Dose: 4 unit Documented By: MARS Magnesium Hydroxide (Milk Of Magnesia 30 Ml Oral.Susp) 30 ml PO DAILY PRN PRN Reason: Constipation Melatonin (Melatonin 3 Mg Tablet) 6 mg PO BEDTIME PRN PRN Reason: Insomnia Methadone HCl (Methadone Hcl 20 Mg/2 Ml Oral.Conc) 80 mg PO DAILY [facility] Last Admin: 11/02/24 08:01 Dose: 80 mg Documented By: MARS Co-signed By: DIEGO Ondansetron HCl (Ondansetron Hcl 4 Mg/2 Ml Vial) 4 mg IVPUSH Q8H PRN PRN Reason: Nausea and Vomiting Sodium Chloride (0.9 % Sodium Chloride Flush 3 Ml Syringe) 3 ml IVFLUSH QSHIFT [facility] Last Admin: 11/02/24 08:00 Dose: 3 ml Documented By: MARS Labs 11/01/24 05:35 11/02/24 05:48 Labs: Laboratory Results - last 24 hr 11/01/24 11/01/24 11/01/24 05:35 11:19 16:36 MCV 83.4 MCH 24.6 L MCHC 29.5 L RDW 15.3 Plt Count 513 H MPV 9.7 Immature Gran % (Auto) 0.4 Neut % (Auto) 69.9 Lymph % (Auto) 21.3 [place] % (Auto) 6.4 Eos % (Auto) 1.7 Baso % (Auto) 0.3 Lymph # (Auto) 2.0 [place] # (Auto) 0.6 Eos # (Auto) 0.2 Baso # (Auto) 0.0 Abs Immat Gran (auto) 0.04 H Absolute Neuts (auto) 6.5 Absolute Nucleated RBC 0.000 Nucleated RBC % (auto) 0.0 Anion Gap 15 Estim Creat Clear Calc Estimated GFR POC Glucose 193 H 245 H 11/01/24 11/02/24 11/02/24 19:50 05:48 07:10 MCV MCH MCHC RDW Plt Count MPV Immature Gran % (Auto) Neut % (Auto) Lymph % (Auto) [place] % (Auto) Eos % (Auto) Baso % (Auto) Lymph # (Auto) [place] # (Auto) Eos # (Auto) Baso # (Auto) Abs Immat Gran (auto) Absolute Neuts (auto) Absolute Nucleated RBC Nucleated RBC % (auto) Anion Gap Estim Creat Clear Calc 85.8 Estimated GFR > 60 POC Glucose 219 H 207 H Assessment and Plan (1) Cellulitis: Status: Acute (2) Skin infection: Status: Acute (3) Bilateral lower leg cellulitis: Status: Acute Plan 63-year-old male with a PMH significant for? PVD s/p right BKA 09/2023, insulin-dependent type 2 diabetes, hx of left ankle/foot osteomyelitis, left TMA, AFib not on anticoagulation, HTN, hepatitis-C s/p tx in 2009, and chronically wheelchair-bound who presents to the ED with?confusion and lethargy x3 days, worse this morning. Pt will be admitted to the hospital for treatment and further evaluation of acute encephalopathy in the setting of left lower extremity cellulitis with sepsis secondary to chronic diabetic foot ulcer. Acute metabolic encephalopathy related to sepsis, presertnly at baseline -trreat underlying infection Sepsis d/t wound infection, cellulitis--has multiple wounds, see pics, elevated ESR and CRP, sepsis resolved. -WBC signifianctly down -blood cultures / strep pyogenes -wound care consuly -wound debrided by surgery 10/30 -was on vanco and zosyn until 10/31 when changed to Ceftriaxone Streptococcus pyogenes bacteremia -stopped vanco and zosyn, 10/31. -start ceftriaxone 2 gm daily 10/31 -id recommend 14 days of PO, as likely skin source, no sings of endocarditis so no echo at this time Insulin-dependent type 2 diabetes Sliding-scale insulin, Lantus Diabetic diet Paroxysmal AFib Continue diltiazem Not on anticoagulation Opioid use disorder Continue methadone Chronic normocytic anemia Stable, baseline Full Code DVT Prophylaxis: Lovenox need for inpt: sepsis needing iv Abx, ultimately home with family Quality Stroke Does the patient have a stroke diagnosis?: No VTE Prior VTE?: No VTE Risk Level:: Medical - moderate - high VTE Device Contraindication: Treatment Not Indicated VTE Drug Contraindication: N/A - Med Ordered
--- NOTE | 2024-11-02 09:31 | P.DS_ITS ---
DS: Providers Provider Date of Service: 11/02/24 Date of admission: 10/29/24 16:07 Date of discharge: 11/02/24 Primary care physician: Mac Clarke MD Consults: 10/29/24 16:05 Consult to General Surgery Routine Consulting Provider: [facility] Reason for consultation: Diabetic foot ulcer, wounds to fenton and posterior thigh 10/29/24 17:03 Consult to Wound Care Routine Reason for consultation: Left posterior thigh, fenton, and foot wounds 10/30/24 09:36 Consult to Infectious Diseases Routine Consulting Provider: [facility] Reason for consultation: bacteremia DS: Diagnosis Discharge Diagnosis (1) Cellulitis: Status: Acute (2) Skin infection: Status: Acute (3) Bilateral lower leg cellulitis: Status: Acute DS: Summary Hospital Course Hospital Course: admission hpi Chief Complaint: Confusion, lethargy Pt is a 63-year-old male with a PMH significant for? PVD s/p right BKA 09/2023, insulin-dependent type 2 diabetes, hx of left ankle/foot osteomyelitis, left TMA, AFib not on anticoagulation, HTN, hepatitis-C s/p tx in 2009, and chronically wheelchair-bound who presents to the ED with?confusion and lethargy x3 days, worse this morning. Patient is alert and oriented to self and place, but not to time. Patient reports has been having intermittent moments of confusion for the past few days, especially noted when he does not know where he is. Patient lives with his daughter who called EMS to bring him to the hospital. Patient also complains of primarily right leg pain right [id number]. To a lesser extent also complains of left leg pain above the knee. Denies any purulent or foul-smelling discharge from left foot wound. Patient denies fever, chills. No nausea, vomiting, abdominal pain. Denies chest pain/pressure, palpitations. No shortness a breath or difficulty breathing. Denies cough above baseline. In the ED pt was febrile up to 101.6, tachycardic up to 94, and hypertensive up to 178/91. Labs were significant for leukocytosis 29.3, CRP 19.32, and albumin 2.6. Stable normocytic anemia of 9.9/32.3. No significant electrolyte abnormalities. Renal function WNL. Lactic acid WNL at 1.7. Hepatic function WNL. CXR showing increased cardiac size with bilateral vascular pulmonary congestion since 2019, though no overt failure or focal pneumonia. Left foot x- ray showing stable osteopenia and postoperative changes without acute bony findings. EKG demonstrated normal sinus rhythm with T-wave inversions in a nterior leads. Pt was treated with IVF, acetaminophen, Zosyn and clindamycin. Pt will be admitted to the hospital for treatment and further evaluation of acute encephalopathy in the setting of left lower extremity cellulitis with sepsis secondary to chronic diabetic foot ulcer. hospital course: The patient presented with lethargy and confusion. A workup revealed sepsis likely secondary to a wound infection. He was initially started on vancomycin and Zosyn. Blood cultures subsequently grew Streptococcus pyogenes. The patient was treated with vancomycin and Zosyn from 10/29 to 10/31, after which his antibiotic regimen was changed to ceftriaxone 2 grams IV daily. He has not had any further fevers, and his WBC count, which was elevated at 29,000, has returned to normal at 9,000. The wound was debrided by surgery and is now clear. He has been evaluated by Infectious Diseases (ID), who recommend transitioning to Ceftin (cefuroxime) for 14 days. The patient shows no signs or symptoms of endocarditis, and his confusion, attributed to sepsis, has resolved. problems: Sepsis d/t wound infection, cellulitis--has multiple wounds, see pics, elevated ESR and CRP, sepsis resolved. -WBC signifianctly down -blood cultures 1/2 strep pyogenes -wound care consuly -wound debrided by surgery 10/30 -was on vanco and zosyn until 10/31 when changed to Ceftriaxone Streptococcus pyogenes bacteremia -stopped vanco and zosyn, 10/31. -start ceftriaxone 2 gm daily 10/31 -id recommend 14 days of PO, as likely skin source, no sings of endocarditis so no echo at this time Insulin-dependent type 2 diabetes Sliding-scale insulin, Lantus Diabetic diet Paroxysmal AFib Continue diltiazem Not on anticoagulation Opioid use disorder Continue methadone Chronic normocytic anemia Stable, baseline Time Attestation Discharge Coordination Time (in mins): 40 Quality: Safe Use of Opioids Does Pt have an Active Cancer Diagnosis on the Problem List?: No Quality: Stroke Does the patient have a stroke diagnosis?: No Physical Exam Vital Signs: Vital Signs: Last Vital Signs Temp 97.0 F 11/02/24 07:14 Pulse 61 11/02/24 07:14 Resp 16 11/02/24 07:14 BP 177/86 H 11/02/24 07:14 Pulse Ox 99 11/02/24 07:14 O2 Del Method Room Air 11/02/24 07:14 BMI result Body Mass Index 26.5 DS: Data Data Completed and Pending Completed studies during hospitalization [Text1]: Procedures Labs on day of discharge: Laboratory Results - last 24 hr 11/01/24 11/01/24 11/01/24 05:35 11:19 16:36 WBC 9.3 RBC 3.62 L Hgb 8.9 L Hct 30.2 L MCV 83.4 MCH 24.6 L MCHC 29.5 L RDW 15.3 Plt Count 513 H MPV 9.7 Immature Gran % (Auto) 0.4 Neut % (Auto) 69.9 Lymph % (Auto) 21.3 [place] % (Auto) 6.4 Eos % (Auto) 1.7 Baso % (Auto) 0.3 Lymph # (Auto) 2.0 [place] # (Auto) 0.6 Eos # (Auto) 0.2 Baso # (Auto) 0.0 Abs Immat Gran (auto) 0.04 H Absolute Neuts (auto) 6.5 Absolute Nucleated RBC 0.000 Nucleated RBC % (auto) 0.0 Sodium 139 Potassium 3.7 Chloride 102 Carbon Dioxide 26 Anion Gap 15 Creatinine Estim Creat Clear Calc Estimated GFR POC Glucose 193 H 245 H 11/01/24 11/02/24 11/02/24 19:50 05:48 07:10 WBC RBC Hgb Hct MCV MCH MCHC RDW Plt Count MPV Immature Gran % (Auto) Neut % (Auto) Lymph % (Auto) [place] % (Auto) Eos % (Auto) Baso % (Auto) Lymph # (Auto) [place] # (Auto) Eos # (Auto) Baso # (Auto) Abs Immat Gran (auto) Absolute Neuts (auto) Absolute Nucleated RBC Nucleated RBC % (auto) Sodium Potassium Chloride Carbon Dioxide Anion Gap Creatinine 0.95 Estim Creat Clear Calc 85.8 Estimated GFR > 60 POC Glucose 219 H 207 H Preliminary micro results at discharge 10/29/24 14:50 Blood Culture - Preliminary Blood - Venous No growth after 48 hours. Discharge Plan Discharge Anticipated Discharge Date/Time: 11/02/24 09:51 Patient Disposition: Home Health Service Discharge Diagnosis: sepsis, cellulitis , wound infection, encephalopathy Referrals: Mac Clarke MD [Primary Care Provider] - 1 Week Discharge Medications: New cefuroxime axetil 500 mg tablet 500 mg PO BID 9 Days Qty: 18 0RF Rx Instructions: next dose 11/03/24 morning Continued (DME) Off loading shoe large See Rx Instructions .Route .MEDSUPPLY Qty: 1 0RF Rx Instructions: As directed (DME) Xeroform Petrolatum Dressing 1 X 8 bandage See Rx Instructions .ROUTE .MEDSUPPLY Qty: 200 0RF Rx Instructions: apply to foot wound daily (DME) adhesive tape 2 X 10 -yard tape See Rx Instructions .ROUTE .MEDSUPPLY Qty: 1 3RF Rx Instructions: apply to foot wound daily (DME) prosthetic Kit See Rx Instructions .Route Qty: 1 0RF Rx Instructions: As directed (DME) Bedside commode See Rx Instructions .Route .MEDSUPPLY Qty: 1 0RF Rx Instructions: As directed (DME) Shower Chair See Rx Instructions .Route .MEDSUPPLY Qty: 1 0RF Rx Instructions: As directed (DME) Walker See Rx Instructions .Route .MEDSUPPLY Qty: 1 0RF Rx Instructions: As directed amitriptyline 50 mg Tablet 50 mg PO BEDTIME PRN (Reason: Depression) methadone 10 mg/mL Concentrate 80 mg PO DAILY Rx Instructions: [facility] diltiazem HCl 180 mg Capsule,Extended Release 24 Hr 240 mg PO DAILY Qty: 120 0RF hydralazine 50 mg Tablet 50 mg PO BID Qty: 120 0RF Protocol: Hold for SBP< HOLD for SBP < : 90 (DME) Wheel chair Kit See Rx Instructions .Route Qty: 1 0RF Rx Instructions: As directed insulin glargine [Lantus U-100 Insulin] 100 unit/mL solution 10 unit subcut BID (DME) FreeStyle Lite Strips Strip See Rx Instructions Not Applicable TID Qty: 10 Rx Instructions: As directed (DME) insulin syringe-needle U-100 [BD Insulin Syringe Ultra-Fine] 1 mL 31 gauge x 5/16 syringe See Rx Instructions .ROUTE DAILY Qty: 10 Rx Instructions: As directed (DME) Band-Aid Rolled Gauze 4 X 2.5 -yard bandage See Rx Instructions .ROUTE .MEDSUPPLY Qty: 30 3RF Rx Instructions: apply to foot wound daily (DME) Band-Aid Gauze Pads 3 X 3 bandage See Rx Instructions .ROUTE .MEDSUPPLY Qty: 25 3RF Rx Instructions: apply to foot wound daily Discharge Orders: Discharge Order (Routine); Ordered 11/02/24 Ordered By: Davey Ivy Diet: Advance to usual diet Activity on Discharge: As tolerated Stand Alone Forms: Patient Portal Discharge page Print Language: Bahraini Care Plan Goals: recovery from sepsis and wound infection Health Concerns: Sepsis Cellulitis and wound infection Metabolic encephalopathy that has resolved Plan of Treatment: Take cefuroxime as recommended and follow-up with your doctor within a week. Assessment: see above Discharge Date/Time: 11/02/24 14:23
--- NOTE | 2024-11-02 10:41 | MHC.CM.PN ---
Per MD patient medically cleared for dc home w/ resumption of services. Patients daughter will transport home at 12pm. RN aware. [facility] aware of dc. They report patient is often not at niece's house when they come for scheduled appointments, and instead has been staying at different places with daughter. Reinforced w/ patient the importance of being home for [facility] appointments. Patient is aware they cannot provide services if he is not home. Patient verbalized understanding.
[2024-11-02 11:09] LABS: Glucose, Whole Blood 140 mg/dL (60-115)
[2024-11-02] MEDS: cefTRIAXone sodium 2 GM VIAL IVPUSH (11:09)
== END 2024-11-02 14:23 | disposition home health service (06) | DRG 720 ==
LOC: HO.ED 16:10 → HO.EDOVER 16:15 → HO.S3 19:39
PROVIDERS: Admitting Provider Student in an Organized Health Care Education/Training Program; Emergency Provider Emergency Medicine Emergency Medical Services; PCP Internal Medicine; Visit Provider Internal Medicine
DX: A41.9 Sepsis, unspecified organism (principal); G93.41 Metabolic encephalopathy; E11.52 Type 2 diabetes mellitus with diabetic peripheral angiopathy with gangrene; E11.621 Type 2 diabetes mellitus with foot ulcer; L97.429 Non-pressure chronic ulcer of left heel and midfoot with unspecified severity; L03.115 Cellulitis of right lower limb; D64.9 Anemia, unspecified; F11.20 Opioid dependence, uncomplicated; L89.892 Pressure ulcer of other site, stage 2; B95.0 Streptococcus, group A, as the cause of diseases classified elsewhere; L03.116 Cellulitis of left lower limb; I48.0 Paroxysmal atrial fibrillation; Z59.01 Sheltered homelessness; Z20.822 Contact with and (suspected) exposure to COVID-19; Z89.511 Acquired absence of right leg below knee; Z99.3 Dependence on wheelchair; Z79.4 Long term (current) use of insulin; Z79.899 Other long term (current) drug therapy
CPT/HCPCS: 0241U; 36415; 71045; 73620; 80048; 80051; 80053; 80202; 81001; 82565; 82947; 83605; 83735; 85025; 85652; 86140; 87040; 87147; 87205; 93005; 99285; J0696; J0736; J1650; J2543; J3370

== ENCOUNTER → 2024-10-29 15:02 | Outpatient (BNV) | payer OTHER, SELFPAY | PROVIDERS: Admitting Provider Student in an Organized Health Care Education/Training Program; Emergency Provider Emergency Medicine Emergency Medical Services; Visit Provider Internal Medicine | DX: R94.31 Abnormal electrocardiogram [ECG] [EKG] (principal) | CPT/HCPCS: 93010 ==

== ENCOUNTER → 2024-10-29 15:03 | Outpatient (BNV) | payer OTHER, SELFPAY | PROVIDERS: Admitting Provider Student in an Organized Health Care Education/Training Program; Emergency Provider Emergency Medicine Emergency Medical Services; Visit Provider Radiology Diagnostic Radiology | DX: R06.02 Shortness of breath (principal); M79.672 Pain in left foot | CPT/HCPCS: 71045; 73630 ==

== ENCOUNTER → 2024-10-29 16:07 | Outpatient (BNV) | payer OTHER, SELFPAY | PROVIDERS: Admitting Provider Student in an Organized Health Care Education/Training Program; Emergency Provider Emergency Medicine Emergency Medical Services; PCP Internal Medicine; Visit Provider Internal Medicine | DX: L03.116 Cellulitis of left lower limb (principal); B95.0 Streptococcus, group A, as the cause of diseases classified elsewhere | CPT/HCPCS: 99222 ==

== ENCOUNTER → 2024-10-29 16:07 | Outpatient (BNV) | payer OTHER, SELFPAY | PROVIDERS: Admitting Provider Student in an Organized Health Care Education/Training Program; Emergency Provider Emergency Medicine Emergency Medical Services; Visit Provider Student in an Organized Health Care Education/Training Program | DX: L03.116 Cellulitis of left lower limb (principal); L08.9 Local infection of the skin and subcutaneous tissue, unspecified; L03.115 Cellulitis of right lower limb | CPT/HCPCS: 99239 ==

== ENCOUNTER → 2024-10-29 16:07 | Outpatient (BNV) | payer OTHER, SELFPAY | PROVIDERS: Admitting Provider Student in an Organized Health Care Education/Training Program; Emergency Provider Emergency Medicine Emergency Medical Services; Visit Provider Surgery | DX: L03.116 Cellulitis of left lower limb (principal) | CPT/HCPCS: 97597; 99222 ==

== ENCOUNTER 2025-01-06 14:47 | Inpatient (IN) | payer OTHER, SELFPAY ==
--- NOTE | ~2025-01-06 | US_ITS ---
EXAMINATION: US TRIPLEX LOWER EXTREMITY, LEFT CLINICAL INFORMATION: Left lower extremity pain. COMPARISON: 07/03/2016. TECHNIQUE: Color-flow triplex imaging with spectral analysis and compression Doppler were performed on the left lower extremity. FINDINGS: Respiratory variation, normal compression and augmented flow are noted throughout the left lower extremity. The visualized common femoral vein, superficial femoral vein, profunda femoral vein, popliteal vein and midcalf peroneal and posterior tibial venous segments show no evidence of deep venous thrombosis. There is no Valentin's cyst. Reactive appearing lymph nodes noted in the groin region. US/US venous duplex LE LT IMPRESSION: No evidence of deep venous thrombosis involving the left lower extremity. Electronically signed by: Nasim Ibarra MD 01/06/2025 04:27 PM ИВАН
[2025-01-06 15:08] VITALS: BP 162/70; PULSE 87; RESP 16; TEMP 36.9; O2SAT 98; BMI 32.0
--- NOTE | 2025-01-06 15:09 | ED.GENADULT ---
HPI - General Adult General Chief complaint: Skin/Abscess/Foreign Body Stated complaint: Open Soars On L Leg- Leaking Puss Time Seen by Provider: 01/06/25 21:34 Source: patient and family Mode of arrival: wheelchair Limitations: no limitations History of Present Illness ED Provider: Dr. Carolee Valenzuela HPI narrative: Patient comes to the emergency room complaining of an infection in his left lower extremity. Patient states that for a few days, he has noted that he has erythema in the distal extremity, is draining serosanguineous fluid from the skin, and the bottom of his foot has an ulcer that has been draining trial smelling discharge. Patient states that he has been treating it at home with yanet vapor rub. patient denies fever chills Related Data Home Medications ?Medication ?Instructions ?Recorded ?Confirmed amitriptyline 50 mg tablet 50 mg PO BEDTIME PRN Depression 12/09/20 10/30/24 blood sugar diagnostic (FreeStyle #10 ea 03/08/22 06/21/24 Lite Strips) insulin syringe-needle U-100 1 mL #10 ea 03/08/22 10/28/23 31 gauge x 5/16 (BD Insulin Syringe Ultra-Fine) methadone 10 mg/mL oral concentrate 80 mg PO DAILY 04/10/24 10/30/24 insulin glargine 100 unit/mL 10 unit subcut BID 10/30/24 10/30/24 subcutaneous solution (Lantus U-100 Insulin) Previous Rx's ?Medication ?Instructions ?Recorded Off loading shoe #1 ea 12/28/20 bismuth tribrom-petrolatum,wh 1 X #200 ea 02/21/21 8 bandage (Xeroform Petrolatum Dressing) adhesive tape 2 X 10 yard #1 ea 06/16/21 prosthetics (prosthetic) #1 ea 06/16/21 chair, wheel (Wheel chair) #1 ea 03/12/23 Bedside commode #1 ea 04/18/23 Shower Chair #1 ea 04/18/23 Walker #1 ea 05/06/23 gauze bandage 3 X 3 (Band-Aid #25 ea 09/24/23 Gauze Pads) gauze bandage 4 X 2.5 yard #30 ea 09/24/23 (Band-Aid Rolled Gauze) diltiazem HCl 180 mg capsule,24 240 mg (1.3333 x 180 mg) PO DAILY 09/25/24 hr,extended release #120 caps hydralazine 50 mg tablet 50 mg PO BID #120 tabs 09/28/24 cefuroxime axetil 500 mg tablet 500 mg PO BID 9 days #18 tabs 11/02/24 Allergies Allergy/AdvReac Type Severity Reaction Status Date / Time furosemide [Lasix] Allergy Intermediate Hives Verified 01/06/25 15:09 levofloxacin [Levaquin] Allergy Unknown Gastrointestinal Verified 01/06/25 15:09 Upset metronidazole [Flagyl] Allergy Unknown Unknown Verified 01/06/25 15:09 latex Allergy Rash Verified 01/06/25 15:09 contrast dye Allergy Unknown rash, hives Uncoded 10/29/24 14:29 Review of Systems Review of Systems: Constitutional : No Weight loss, No Fever, No Chills, No Night Sweats, No Fatigue, No Malaise ENT/Mouth : No Hearing loss, No Ear Pain, No Nasal Congestion, No Sinus Pain, No Hoarseness, No sore throat, No Rhinorrhea, No Swallowing Difficulty Eyes: No Eye Pain, No Swelling, No Redness, No Foreign Body, No Discharge, No Vision Changes Cardiovascular : No Chest Pain, No SOB, No Dyspnea on Exertion, No Orthopnea, No Edema, No Palpitations Respiratory : No Cough, No Sputum, No Wheezing, No Smoke Exposure, No Dyspnea Gastrointestinal : No Nausea, No Vomiting, No Diarrhea, No Constipation, No abdominal Pain, No Hematochezia, No Melena Genitourinary : no irregular bleeding, No Dysuria, No Urinary Frequency, No Hematuria, No Urinary Incontinence, No Urgency, No Flank Pain, No Urinary Flow Changes, No Hesitancy Musculoskeletal : No joint pain, No Myalgias, No Joint Swelling Skin : complaining of worsening living and smelling ulcer on the bottom of the left foot, complaining of erythema in the left lower extremity Neuro : No Weakness, No Numbness, No Paresthesias, No Loss of Consciousness, No Dizziness, No Headache Psych : No Anxiety/Panic, No Depression, No SI/HI/AH/VH, No Social Issues, Heme/Lymph: No Bruising, No Bleeding,No Lymphadenopathy Endocrine : No Polyuria, No Polydipsia, No Temperature Intolerance PMFSH Past Medical History Medical History Group A streptococcal infection Open wound Hx of hepatitis Diabetic ulcer of right foot Atrial fibrillation Hypertension Diabetes Surgical History Hx of surgical procedure (~08/06/24) 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 History of transmetatarsal amputation of foot (~09/2016) History of amputation of toe (~08/18/14) History of amputation of toe (~10/21/13) History of lipoma Family History Family History Father History of lung cancer Mother History of diabetes mellitus Social History Social History Household Members: Family Household Members Other:: mother Housing: House Housing Other:: patient is homeless, couch surfing with friends/family Are you a primary home care manager rn to a significant other at home: No Do you presently have visiting nurse or other home services: Yes (line maintainer section's and visiting nurses.) Alcohol intake: never Comment: wheelchair bound, right left TMA Patient Tobacco Use Status: Current everyday Tobacco user Tobacco use type: Cigarette Cigarettes Per Day: 6 Years Smoked: 49 Second Hand Smoke Exposure: No Substance Use Type: Crack/Cocaine Advance Directives: Yes Advance Directives on File: Yes Advance Directives Date on File: 04/28/24 service: No Physical Exam ED Vital Signs: Vital Signs - 24 hr 01/06/25 15:08 01/06/25 21:14 01/06/25 21:27 Temperature 98.4 F 97.6 F 97.9 F Pulse Rate 87 83 82 Respiratory Rate 16 19 12 Blood Pressure 162/70 H 155/70 H 155/82 H Pulse Oximetry 98 99 98 Oxygen Delivery Method Room Air Room Air BMI result Body Mass Index 32.0 Const Other: Appearance: Alert. Oriented X3. No acute distress. Eyes: Pupils equal, round and reactive to light. ENT: Pharynx normal. Neck: Normal inspection. Neck supple. No lymph nodes noted. No crepitus CVS: Normal heart rate and rhythm. Pulses normal. Normal S1 and S2 Respiratory: No respiratory distress. Breath sounds normal. No Wheezing. No rales Abdomen: Soft and nontender. No rigidity. No distention. Skin: Skin warm and dry. see extremities below Extremities: patient has a right BKA. On the left, patient has a partial foot amputation. The bottom of the foot, there is a large ulcer. The distal lower extremity is erythematous, has ulcers draining serous fluid. Patient's like very warm to touch. See images below Neuro: Oriented X 3. No motor deficit. No sensory deficit. Moving all extremities. No slurred speech. CN 2 through 12 grossly intact Psych: calm, cooperative, normal affect Course Course Course Narrative: RME, this is a rapid medical exam performed by Ross Medina please refer to primary provider for complete H&P- 64-year-old male presents for evaluation of left leg pain and swelling. He reports open sores. He 1st noticed a last week. Denies any fevers or chills. He does have a right BKA from previous diabetic complications. plan for labs and ultrasound of the left lower extremity Medical Decision Making Medical Decision Making [facility] Narrative: patient's white blood cell count 12.4. Patient is chronically anemic, hemoglobin of 8.7. Patient's chemistry does not show any acute abnormality. Normal LFTs, normal lactic acid. patient was started on IV fluids, vancomycin and Zosyn. Patient has not had any episodes of hypotension, no fever, sepsis not suspected. venous ultrasound negative for DVT I discussed the patient with Dr. Durham, Patient already has a BKA on the right, and has a amputation of the left. Given the patient's current physical exam, we will go ahead and Admit the patient. Patient does not have any from clinic follow-up. Differential Diagnosis Differential Diagnoses: The differential diagnosis associated with the presentation includes ( As above) Admission/Observation Consideration of admission/observation: Escalation of care including admission/observation considered Consult Healthcare Provider Management of the patient was discussed with: Hospitalist Lab Data [facility] Lab Attestation statement: I reviewed the patient's lab results. 01/06/25 15:34 01/06/25 15:34 Labs: Lab Results 01/06/25 Range/Units 15:34 WBC 12.4 H (4.8-10.8) X10*3/uL RBC 3.53 L (4.60-5.80) X10*6/uL Hgb 8.7 L (14.0-18.0) g/dl Hct 28.4 L (42.0-52.0) % MCV 80.5 (80.0-98.0) fL MCH 24.6 L (27.0-33.0) pg MCHC 30.6 L (31.0-36.0) g/dl RDW 15.8 (11.0-16.0) % Plt Count 475 H (160-400) X10*3/uL MPV 9.7 (9.4-12.4) fL Immature Gran % (Auto) 0.2 (0.0-0.4) % Neut % (Auto) 60.4 (45-73) % Lymph % (Auto) 31.5 (20-40) % [place] % (Auto) 5.6 (2-11) % Eos % (Auto) 1.9 (0-4) % Baso % (Auto) 0.4 (0-2) % Lymph # (Auto) 3.9 (1.2-4.9) X10*3/uL [place] # (Auto) 0.7 (0.1-1.2) X10*3/uL Eos # (Auto) 0.2 (0.0-0.4) X10*3/uL Baso # (Auto) 0.1 (0.0-0.2) X10*3/uL Abs Immat Gran (auto) 0.03 (0.00-0.03) X10*3/uL Absolute Neuts (auto) 7.5 (2.0-8.3) x10*3/uL Absolute Nucleated RBC 0.000 (0.0-0.012) X10*3/uL Nucleated RBC % (auto) 0.0 (0.0-0.2) /100WBC ESR 101 H (0-15) MM/HR Sodium 136 (135-145) mmol/L Potassium 3.5 (3.3-5.1) mmol/L Chloride 99 (96-108) mmol/L Carbon Dioxide 28 (22-29) mmol/L Anion Gap 13 (12-20) BUN 16 (9-16) mg/dL Creatinine 0.90 (0.5-1.4) mg/dL Estim Creat Clear Calc 106.2 Estimated GFR > 60 Random Glucose 82 (60-115) mg/dL Lactic Acid 2.0 (0.5-2.0) mmol/L Calcium 8.8 D (8.4-10.2) mg/dL Total Bilirubin 0.1 (0.0-1.0) mg/dL AST 18 (5-37) U/L ALT < 6 (0-40) U/L Alkaline Phosphatase 87 (39-117) U/L Total Creatine Kinase 88 (38-174) U/L Total Protein 9.5 H (6.5-8.0) g/dL Albumin 3.0 L (3.5-5.0) g/dL Lipase 6 L (8-78) U/L Independent Interpretation I performed an independent interpretation of an: Ultrasound Radiology Impression Radiologist Impression: Respiratory variation, normal compression and augmented flow are noted throughout the left lower extremity. The visualized common femoral vein, superficial femoral vein, profunda femoral vein, popliteal vein and midcalf peroneal and posterior tibial venous segments show no evidence of deep venous thrombosis. There is no Valentin's cyst. Reactive appearing lymph nodes noted in the groin region. US/US venous duplex LE LT IMPRESSION: No evidence of deep venous thrombosis involving the left lower extremity. Critical Care Time Critical Care Time Critical Care Time: Yes Total Critical Care Time: 60 Attestation: I have personally provided critical care time. Time includes review of lab data, radiology results, discussion with consultants, and monitoring for potential decompensation. Intervention performed as documented. Discharge Plan Discharge Clinical Impression: Cellulitis, Diabetic foot ulcer Patient Disposition: Admitted As Inpatient Prescriptions: No Action (DME) Off loading shoe large See Rx Instructions .Route .MEDSUPPLY Qty: 1 0RF Rx Instructions: As directed (DME) Xeroform Petrolatum Dressing 1 X 8 bandage See Rx Instructions .ROUTE .MEDSUPPLY Qty: 200 0RF Rx Instructions: apply to foot wound daily (DME) adhesive tape 2 X 10 -yard tape See Rx Instructions .ROUTE .MEDSUPPLY Qty: 1 3RF Rx Instructions: apply to foot wound daily (DME) prosthetic Kit See Rx Instructions .Route Qty: 1 0RF Rx Instructions: As directed (DME) Bedside commode See Rx Instructions .Route .MEDSUPPLY Qty: 1 0RF Rx Instructions: As directed (DME) Shower Chair See Rx Instructions .Route .MEDSUPPLY Qty: 1 0RF Rx Instructions: As directed (DME) Walker See Rx Instructions .Route .MEDSUPPLY Qty: 1 0RF Rx Instructions: As directed amitriptyline 50 mg Tablet 50 mg PO BEDTIME PRN (Reason: Depression) methadone 10 mg/mL Concentrate 80 mg PO DAILY Rx Instructions: [facility] diltiazem HCl 180 mg Capsule,Extended Release 24 Hr 240 mg PO DAILY Qty: 120 0RF hydralazine 50 mg Tablet 50 mg PO BID Qty: 120 0RF Protocol: Hold for SBP< HOLD for SBP < : 90 (DME) Wheel chair Kit See Rx Instructions .Route Qty: 1 0RF Rx Instructions: As directed insulin glargine [Lantus U-100 Insulin] 100 unit/mL solution 10 unit subcut BID cefuroxime axetil 500 mg tablet 500 mg PO BID 9 Days Qty: 18 0RF Rx Instructions: next dose 11/03/24 morning (DME) FreeStyle Lite Strips Strip See Rx Instructions Not Applicable TID Qty: 10 Rx Instructions: As directed (DME) insulin syringe-needle U-100 [BD Insulin Syringe Ultra-Fine] 1 mL 31 gauge x 5/16 syringe See Rx Instructions .ROUTE DAILY Qty: 10 Rx Instructions: As directed (DME) Band-Aid Rolled Gauze 4 X 2.5 -yard bandage See Rx Instructions .ROUTE .MEDSUPPLY Qty: 30 3RF Rx Instructions: apply to foot wound daily (DME) Band-Aid Gauze Pads 3 X 3 bandage See Rx Instructions .ROUTE .MEDSUPPLY Qty: 25 3RF Rx Instructions: apply to foot wound daily Print Language: Lithuanian
[2025-01-06 15:43] LABS: MANUAL DIFF FLAG NO
[2025-01-06 15:45] LABS: Basophils Absolute Auto 0.1 X10*3/uL (0.0-0.2); Basophils Percent Auto 0.4 % (0-2); Eosinophils Absolute Auto 0.2 X10*3/uL (0.0-0.4); Eosinophils Percent Auto 1.9 % (0-4); Hematocrit 28.4 % (42.0-52.0); Hemoglobin 8.7 g/dl (14.0-18.0); Imm Gran Abs Auto 0.03 X10*3/uL (0.00-0.03); Imm Gran Pct Auto 0.2 % (0.0-0.4); Lymphocytes Absolute Auto 3.9 X10*3/uL (1.2-4.9); Lymphocytes Percent Auto 31.5 % (20-40); Mean Corpuscular HGB Conc 30.6 g/dl (31.0-36.0); Mean Corpuscular Hemoglobin 24.6 pg (27.0-33.0); Mean Corpuscular Volume 80.5 fL (80.0-98.0); Mean Platelet Volume 9.7 fL (9.4-12.4); Monocytes Absolute Auto 0.7 X10*3/uL (0.1-1.2); Monocytes Percent Auto 5.6 % (2-11); Neutrophils Absolute Auto 7.5 x10*3/uL (2.0-8.3); Neutrophils Percent Auto 60.4 % (45-73); Platelet Count 475 X10*3/uL (160-400); Red Blood Count 3.53 X10*6/uL (4.60-5.80); Red Cell Distribution Width 15.8 % (11.0-16.0); White Blood Count 12.4 X10*3/uL (4.8-10.8)
[2025-01-06 16:07] LABS: Alanine Aminotransferase < 6 U/L (0-40); Anion Gap 13 (12-20); Aspartate Amino Transferase 18 U/L (5-37); Bilirubin Total 0.1 mg/dL (0.0-1.0); Blood Urea Nitrogen 16 mg/dL (9-16); Calcium 8.8 mg/dL (8.4-10.2); Carbon Dioxide 28 mmol/L (22-29); Chloride 99 mmol/L (96-108); Creatinine Clr Calc Pharmacy 106.2; Estimated Glomerular Filt Rate > 60; Glucose Random 82 mg/dL (60-115); Lipase 6 U/L (8-78); Potassium 3.5 mmol/L (3.3-5.1); Sodium 136 mmol/L (135-145); Total Protein 9.5 g/dL (6.5-8.0)
[2025-01-06 17:36] LABS: Alkaline Phosphatase 87 U/L (39-117)
[2025-01-06 17:51] LABS: Erythrocyte Sedimentation Rate 101 MM/HR (0-15)
[2025-01-06 21:14] VITALS: BP 155/70; PULSE 83; RESP 19; TEMP 36.4; O2SAT 99
[2025-01-06 21:27] VITALS: BP 155/82; PULSE 82; RESP 12; TEMP 36.6; O2SAT 98
--- NOTE | 2025-01-06 22:37 | P.HPHOSP_ITS ---
History of Present Illness Date of Service: 01/06/25 Attending physician on admission: Jim Durham Chief Complaint: Left foot wounds Pt is a 64-year-old male with a PMH significant for PVD s/p right BKA 09/2023, insulin-dependent type 2 diabetes, hx of left ankle/foot osteomyelitis, left TMA, AFib not on anticoagulation, HTN, hepatitis-C s/p tx in 2009, and chronically wheelchair-bound who presents to the ED for evaluation of worsening left lower extremity wounds x1 week. Pt reports for the past week he has had increased swelling, erythema, and mostly cleared drainage from wounds on his left leg. Skin has been sloughing off, and now has a large wound on the bottom of his foot with foul-smelling discharge. Pt has apparently not followed up with wound care and been treating his leg with Vicks vapor rub. Reports pain is around baseline. Otherwise denies any systemic symptoms. No fever, chills. In the ED pt was hypertensive up to 162/70, vitals otherwise stable and WNL. Labs were significant for leukocytosis of 12.4 and ESR 101. Stable H&H. No significant electrolyte abnormalities. Renal and hepatic function WNL. Left lower extremity venous duplex negative for DVT. Pt was treated with vanc and Zosyn. Pt will be admitted to the hospital for treatment and further evaluation of left lower extremity cellulitis secondary to nonhealing diabetic foot ulcer. Review of Systems 2 Review of Systems: Negative except for that which is stated in the HPI. [facility] Medical History Group A streptococcal infection Open wound Hx of hepatitis Diabetic ulcer of right foot Atrial fibrillation Hypertension Diabetes Family History Father History of lung cancer Mother History of diabetes mellitus Surgical History Hx of surgical procedure (~08/06/24) 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 History of transmetatarsal amputation of foot (~09/2016) History of amputation of toe (~08/18/14) History of amputation of toe (~12/11/13) History of lipoma Social History Household Members: Family Household Members Other:: mother Housing: House Housing Other:: patient is homeless, couch surfing with friends/family Are you a primary hospice care transitions coordinator to a significant other at home: No Do you presently have visiting nurse or other home services: Yes (travel accommodation inspector's and visiting nurses.) Unable to assess alcohol history related to: Unknown Alcohol intake: never Comment: wheelchair bound, right left TMA Patient Tobacco Use Status: Current everyday Tobacco user Tobacco use type: Cigarette Cigarettes Per Day: 6 Years Smoked: 49 Second Hand Smoke Exposure: No Use of substances other than those prescribed or required for medical reasons: Unknown Substance Use Type: Crack/Cocaine Advance Directives: Yes Advance Directives on File: Yes Advance Directives Date on File: 04/28/24 service: No Meds Allergies Allergy/AdvReac Type Severity Reaction Status Date / Time furosemide [Lasix] Allergy Intermediate Hives Verified 01/06/25 15:09 levofloxacin [Levaquin] Allergy Unknown Gastrointestinal Verified 01/06/25 15:09 Upset metronidazole [Flagyl] Allergy Unknown Unknown Verified 01/06/25 15:09 latex Allergy Rash Verified 01/06/25 15:09 contrast dye Allergy Unknown rash, hives Uncoded 10/29/24 14:29 Active Medications: Current Medications Acetaminophen (Acetaminophen 325 Mg Tablet) 650 mg PO Q6H PRN PRN Reason: Pain, Mild 1-3,fever,headache Calcium Carbonate (Calcium Carbonate 750 Mg Tab.Chew) 750 mg PO Q4H PRN PRN Reason: Heartburn Dextrose (Dextrose 50 % 25 Gm/50 Ml Syringe) 25 gm IVPUSH Q15M PRN; Protocol PRN Reason: per Hypoglycemia Standing Ord. Enoxaparin Sodium (Enoxaparin Sodium 40 Mg/0.4 Ml Syringe) 40 mg SUBCUT Q24H [place]TE Glucose (Glucose Gel 15 Gm Gel..Gram.) 15 gm PO Q15M PRN; Protocol PRN Reason: per Hypoglycemia Standing Ord. Sodium Chloride (Ns) 1,000 mls @ 999 mls/hr IVCONT .Q1H1M ONE Stop: 01/06/25 22:50 Vancomycin HCl (Vancomycin/Ns) 2,000 mg in 500 mls @ 250 mls/hr IV ONCE ONE Stop: 01/06/25 23:49 Piperacillin Sod/Tazobactam (Sod 4.5 gm/ Sodium Chloride) 100 mls @ 200 mls/hr IV Q6H [facility] Insulin Human Lispro (Insulin Lispro 100 Unit/Ml 3 Ml Vial) 0 unit SUBCUT QIDACHS [facility]; Protocol Magnesium Hydroxide (Milk Of Magnesia 30 Ml Oral.Susp) 30 ml PO DAILY PRN PRN Reason: Constipation Melatonin (Melatonin 3 Mg Tablet) 6 mg PO BEDTIME PRN PRN Reason: Insomnia Ondansetron HCl (Ondansetron Hcl 4 Mg/2 Ml Vial) 4 mg IVPUSH Q8H PRN PRN Reason: Nausea and Vomiting Pharmacy Consult (Consult Rx Vancomycin Dosing) 1 each MISCELLANE DAILY PRN PRN Reason: Consult order Sodium Chloride (0.9 % Sodium Chloride Flush 3 Ml Syringe) 3 ml IVFLUSH QSHIFT [facility] Home Medications ?Medication ?Instructions ?Recorded ?Confirmed ?Last Taken ?Type amitriptyline 50 mg tablet 50 mg PO BEDTIME PRN Depression 12/09/20 10/30/24 06/20/24 History blood sugar diagnostic (FreeStyle #10 ea 03/08/22 06/21/24 Unknown History Lite Strips) insulin syringe-needle U-100 1 mL #10 ea 03/08/22 10/28/23 Unknown History 31 gauge x 5/16 (BD Insulin Syringe Ultra-Fine) methadone 10 mg/mL oral concentrate 80 mg PO DAILY 04/10/24 10/30/24 10/29/24 History insulin glargine 100 unit/mL 10 unit subcut BID 10/30/24 10/30/24 10/29/24 History subcutaneous solution (Lantus U-100 Insulin) Physical Exam 2 Vital Signs and Narrative: Vital Signs: Last Vital Signs Temp 97.9 F 01/06/25: Pulse 82 01/06/25 21: Resp 12 01/06/25 21: BP 155/82 H 01/06/25 21: Pulse Ox 98 01/06/25 21:27 O2 Del Method Room Air 01/06/25 21: BMI result Body Mass Index 32.0 General: AOx3, no acute distress Resp: CTA bilaterally CVS: S1, S2, RRR GI: +BS, NT, no distention Skin: Warm, dry Neuro: Cranial nerves II-XII grossly intact bilaterally. Motor grossly intact bilaterally Extremities: 2+ pitting left lower extremity edema. Left lower extremity with erythema, tenderness, warmth, and multiple excoriations on anterior fenton, and large ulcer on plantar aspect of left foot, as pictured below. Psych: Appropriate affect Results Labs 01/06/25 15:34 01/06/25 15:34 Labs: Laboratory Results - last 24 hr 01/06/25 15:34 MCV 80.5 MCH 24.6 L MCHC 30.6 L RDW 15.8 Plt Count 475 H MPV 9.7 Immature Gran % (Auto) 0.2 Neut % (Auto) 60.4 Lymph % (Auto) 31.5 [place] % (Auto) 5.6 Eos % (Auto) 1.9 Baso % (Auto) 0.4 Lymph # (Auto) 3.9 [place] # (Auto) 0.7 Eos # (Auto) 0.2 Baso # (Auto) 0.1 Abs Immat Gran (auto) 0.03 Absolute Neuts (auto) 7.5 Absolute Nucleated RBC 0.000 Nucleated RBC % (auto) 0.0 ESR 101 H Anion Gap 13 Estim Creat Clear Calc 106.2 Estimated GFR > 60 Random Glucose 82 Lactic Acid 2.0 Calcium 8.8 D Total Bilirubin 0.1 AST 18 ALT < 6 Alkaline Phosphatase 87 Total Creatine Kinase 88 Total Protein 9.5 H Albumin 3.0 L Lipase 6 L Imaging Radiologist's Impressions: Impressions Venous Duplex 01/06/25 16:03 IMPRESSION: No evidence of deep venous thrombosis involving the left lower extremity. Electronically signed by: Nasim Ibarra MD 01/06/2025 04:27 PM [facility] [place] and Plan (1) Diabetic foot ulcer: Qualifiers: Diabetes mellitus type: type 2 Diabetic foot ulcer location: u nspecified part of foot Laterality: left Non-pressure ulcer stage: with muscle involvement without evidence of necrosis Qualified Code(s): E11.621 - Type 2 diabetes mellitus with foot ulcer; L97.525 - Non-pressure chronic ulcer of other part of left foot with muscle involvement without evidence of necrosis Status: Acute (2) Cellulitis: Qualifiers: Laterality: left Site of cellulitis: extremity Site of cellulitis of extremity: lower extremity Qualified Code(s): L03.116 - Cellulitis of left lower limb Status: Acute Plan Pt is a 64-year-old male with a PMH significant for PVD s/p right BKA 09/2023, insulin-dependent type 2 diabetes, hx of left ankle/foot osteomyelitis, left TMA, AFib not on anticoagulation, HTN, hepatitis-C s/p tx in 2009, and chronically wheelchair-bound who presents to the ED for evaluation of worsening left lower extremity wounds x1 week. Pt will be admitted to the hospital for treatment and further evaluation of left lower extremity cellulitis secondary to nonhealing diabetic foot ulcer. Acute left lower extremity cellulitis Pt with increased swelling, erythema, clear and foul-smelling discharge x1 week No sepsis: Leukocytosis, but no fever, tachycardia, or tachypnea Will treat with vanc and Zosyn, started 01/06/2025 Wound care consult Follow cultures Insulin-dependent type 2 diabetes Sliding-scale insulin, Lantus Diabetic diet Paroxysmal AFib Continue diltiazem Not on anticoagulation Opioid use disorder Continue methadone Chronic normocytic anemia Stable, baseline Full Code Attending:?Dr. Durham DVT Prophylaxis: Lovenox Pt requiring hospitalization of at least 2 overnight for treatment and further evaluation of acute left lower extremity flatus secondary to chronic non healing diabetic foot ulcers that will require administration of IV antibiotics. Quality Stroke Does the patient have a stroke diagnosis?: No VTE Prior VTE?: No VTE Risk Level:: Medical - moderate - high VTE Device Contraindication: Treatment Not Indicated VTE Drug Contraindication: N/A - Med Ordered
[2025-01-06] MEDS: Piperacillin Sodium/Tazobactam 4.5 GM in 0.9 % Sodium Chloride 100 ML IV (23:33)
[2025-01-06] MEDS: 0.9 % Sodium Chloride 1,000 ML 999 ML IVCONT (23:34)
[2025-01-06 23:59] VITALS: BP 164/75; PULSE 68; RESP 16; TEMP 36.9; O2SAT 100
[2025-01-07] MEDS: Enoxaparin Sodium 40 MG/0.4 ML SYRINGE SUBCUT ×2 (00:07→21:23)
[2025-01-07] MEDS: vancomycin/NS 2,000 MG/500 ML PLAST..BAG 250 MG IV (00:07)
--- NOTE | 2025-01-07 01:27 | MHC.EDTECH ---
This pct assumed care of Patient at 0100 ,Patient refused to change into hospital gown ,and wants to stay in w/c ,BAKARI Humphreys aware .
[2025-01-07 03:37] VITALS: BP 160/62; PULSE 72; RESP 16; TEMP 36.8; O2SAT 97
[2025-01-07 04:00] LABS: Basophils Percent Auto 0.5 % (0-2); Eosinophils Absolute Auto 0.2 X10*3/uL (0.0-0.4); Eosinophils Percent Auto 2.8 % (0-4); Hematocrit 26.3 % (42.0-52.0); Hemoglobin 8.1 g/dl (14.0-18.0); Imm Gran Abs Auto 0.02 X10*3/uL (0.00-0.03); Imm Gran Pct Auto 0.2 % (0.0-0.4); Lymphocytes Absolute Auto 2.2 X10*3/uL (1.2-4.9); Lymphocytes Percent Auto 26.1 % (20-40); MANUAL DIFF FLAG NO; Mean Corpuscular HGB Conc 30.8 g/dl (31.0-36.0); Mean Corpuscular Hemoglobin 24.5 pg (27.0-33.0); Mean Corpuscular Volume 79.5 fL (80.0-98.0); Mean Platelet Volume 9.3 fL (9.4-12.4); Monocytes Absolute Auto 0.5 X10*3/uL (0.1-1.2); Monocytes Percent Auto 6.3 % (2-11); Neutrophils Absolute Auto 5.4 x10*3/uL (2.0-8.3); Neutrophils Percent Auto 64.1 % (45-73); Platelet Count 359 X10*3/uL (160-400); Red Blood Count 3.31 X10*6/uL (4.60-5.80); Red Cell Distribution Width 15.7 % (11.0-16.0); White Blood Count 8.4 X10*3/uL (4.8-10.8)
[2025-01-07 04:14] LABS: Anion Gap 11 (12-20); Blood Urea Nitrogen 16 mg/dL (9-16); Calcium 8.2 mg/dL (8.4-10.2); Carbon Dioxide 26 mmol/L (22-29); Chloride 107 mmol/L (96-108); Creatinine Clr Calc Pharmacy 86.8; Estimated Glomerular Filt Rate > 60; Glucose Random 162 mg/dL (60-115); Potassium 4.2 mmol/L (3.3-5.1); Sodium 140 mmol/L (135-145)
[2025-01-07] MEDS: Piperacillin Sodium/Tazobactam 4.5 GM in 0.9 % Sodium Chloride 100 ML IV ×4 (04:36→21:41)
--- NOTE | 2025-01-07 04:40 | PC.NURSE ---
this RN resumed care of pt at 0300. pt a&ox4. vss and up to date. per previous RN, pt refusing to be changed into hospital attire as well as to be placed in stretcher. pt leaning forward in personal wheelchair half asleep. pt easily aroused to verbal stimuli. pt educated on being a high fall risk d/t amputations and being in a wheelchair and that it is important for him to be positioned in the stretcher safely. pt still refusing to be changed over/go in stretcher. chair alarm placed on pt for safety precautions.
[2025-01-07 06:21] VITALS: BP 162/77; PULSE 76; RESP 16; TEMP 36.6; O2SAT 96
[2025-01-07 07:11] LABS: Glucose, Whole Blood 124 mg/dL (60-115)
--- NOTE | 2025-01-07 07:14 | PC.NURSE ---
pt still refusing to change into hospital/transition into stretcher. pt continuously educating but still refusing. pt verbalizing, i don't like the bed. i'm comfortable where i am. pt positioned on the side of the bed/eating breakfast. chair alarm remains intact.
--- NOTE | 2025-01-07 09:39 | PHA.PROG ---
Admission Date/Time: January 06, 2025 22:00 Indication: skin Weight in k.048 kg Adjusted body weight in Kg: [place] body weight in Kg: Obesity Dosing Indication % IBW: Serum Creatinine - Last 168 Hours 01/06/25 01/07/25 15:34 03:54 Creatinine 0.90 1.10 Estimated CrCl and GFR - Last 168 Hours 01/06/25 01/07/25 15:34 03:54 Estim Creat Clear Calc 106.2 86.8 Estimated GFR > 60 > 60 Vancomycin Loading Dose: 2000mg x 1 Current Vancomycin Dosing Regimen: 1000mg Q12H Vancomycin Monitoring using AUC goal of 400 - 600 range with trough as surrogate marker: 488 mg/L Date and Time for next Vancomycin Level to be drawn: 01/08 @0900 Pharmacist Comments on Vancomycin Plan: predicted trough of 16.2 mg/L Vancomycin dosing will take advantage of [employer] as a clinical decision support tool that uses Bayesian modeling to calculate individual patient's pharmacokinetic parameters and forecast the patient's drug concentration time course with the target goal AUC 24 range of 400 - 600 mg/L/hr.
--- NOTE | 2025-01-07 12:03 | MHC.CM.PN ---
PT REPORTS HE IS LIVING WITH HIS DAUGHTER WHO IS ALSO HIS GUIDE CHANGER 32 HOURS PER WEEK PT IS ALSO ACTIVE WITH ALLIED VNA PT USES A WHEEL CHAIR AT [facility] AND HAS A PROSTHETIC LE HCP ON FILE PCP: ALIREZA HAWTHORNE DCP: RETURN TO DAUGHTERS HOME WITH RESUMPTION OF SERVICES DAUGHTER TO TRANSPORT
--- NOTE | 2025-01-07 12:12 | PHA.MEDREC ---
Addendum entered by Rios Jones 01/07/25 16:04: reviewed Addendum entered by [place] Kohli 01/07/25 15:13: Spoke with patient about dose of Diltiazem and he confirmed he is taking 1 tablet of the 180mg dose once a day. Original Note: Pharmacy Consult ? Medication Reconciliation Pharmacy has completed the medication reconciliation. Spoke with patient and he confirmed his medications. He states he is taking Amitriptyline 50mg tabs at bedtime as needed for depression. He also confirmed he is still taking the Lantus U-100 Insulin and states he is injecting 10 units daily. He confirmed he took all his medications yesterday.
[2025-01-07 12:21] VITALS: BP 180/81; PULSE 62; RESP 17; TEMP 36.8; O2SAT 98
[2025-01-07] MEDS: vancomycin HCL 1,000 MG in 0.9 % Sodium Chloride 250 ML 270 MG IV ×2 (12:42→22:41)
[2025-01-07 12:45] LABS: Glucose, Whole Blood 134 mg/dL (60-115)
--- NOTE | 2025-01-07 13:30 | HO.PM.IMPN ---
Subjective Subjective Date of Service: 01/07/25 Interval History: Admitted for redness swelling and worsening wound left foot with foul drainage. At present patient offers no acute complaints denies fever, no chills, no nausea, no vomiting or abdominal pain requesting for methadone. Review of Systems All other system reviewed and are negative. Physical Exam Vital Signs: Vital Signs: Last Vital Signs Temp 98.2 F 01/07/25 12:21 Pulse 62 01/07/25 12:21 Resp 17 01/07/25 12:21 BP 180/81 H 01/07/25 12:21 Pulse Ox 98 01/07/25 12:21 O2 Del Method Room Air 01/07/25 12:21 BMI result Body Mass Index 32.0 Const: Other: General resting comfortably in no acute distress. Neck no JVD. CVS regular rate rhythm, Respiratory lungs clear to auscultation, no respiratory distress Gastrointestinal abdomen soft, non tender, bowel sounds audible Extremities right BKA/left foot mild leg swelling with multiple open wounds left leg/well healed TMA stump/large clean based wound plantar surface left foot, see picture in history and physical note Neuro non focal Appropriate affect Objective Data Active Medications Acetaminophen (Acetaminophen 325 Mg Tablet) 650 mg PO Q6H PRN PRN Reason: Pain, Mild 1-3,fever,headache Calcium Carbonate (Calcium Carbonate 750 Mg Tab.Chew) 750 mg PO Q4H PRN PRN Reason: Heartburn Dextrose (Dextrose 50 % 25 Gm/50 Ml Syringe) 25 gm IVPUSH Q15M PRN; Protocol PRN Reason: per Hypoglycemia Standing Ord. Enoxaparin Sodium (Enoxaparin Sodium 40 Mg/0.4 Ml Syringe) 40 mg SUBCUT Q24H [facility] Last Admin: 01/07/25 00:07 Dose: 40 mg Documented By: MURALI Glucose (Glucose Gel 15 Gm Gel..Gram.) 15 gm PO Q15M PRN; Protocol PRN Reason: per Hypoglycemia Standing Ord. Piperacillin Sod/Tazobactam (Sod 4.5 gm/ Sodium Chloride) 100 mls @ 200 mls/hr IV Q6H [facility] Last Infusion: 01/07/25 11:59 Dose: Infused Documented By: MANNY Vancomycin HCl 1,000 mg/ (Sodium Chloride) 270 mls @ 270 mls/hr IV Q12H [facility] Last Admin: 01/07/25 12:42 Dose: 270 mls/hr Documented By: MANNY Insulin Human Lispro (Insulin Lispro 100 Unit/Ml 3 Ml Vial) 0 [facility]; Protocol Last Admin: 01/07/25 12:42 Dose: Not Given Documented By: MANNY Non-Admin Reason: No Insulin Coverage Comments: bs 134 Magnesium Hydroxide (Milk Of Magnesia 30 Ml Oral.Susp) 30 ml PO DAILY PRN PRN Reason: Constipation Melatonin (Melatonin 3 Mg Tablet) 6 mg PO BEDTIME PRN PRN Reason: Insomnia Ondansetron HCl (Ondansetron Hcl 4 Mg/2 Ml Vial) 4 mg IVPUSH Q8H PRN PRN Reason: Nausea and Vomiting Pharmacy Consult (Consult Rx Vancomycin Dosing) 1 each MISCELLANE DAILY PRN PRN Reason: Consult order Sodium Chloride (0.9 % Sodium Chloride Flush 3 Ml Syringe) 3 ml IVFLUSH [facility] Last Admin: 01/07/25 07:11 Dose: Not Given Documented By: JOSE Non-Admin Reason: Patient Asleep Labs 01/07/25 03:54 01/07/25 03:54 Labs: Laboratory Results - last 24 hr 01/06/25 01/07/25 01/07/25 15:34 03:54 07:08 MCV 80.5 79.5 L MCH 24.6 L 24.5 L MCHC 30.6 L 30.8 L RDW 15.8 15.7 Plt Count 475 H 359 MPV 9.7 9.3 L Immature Gran % (Auto) 0.2 0.2 Neut % (Auto) 60.4 64.1 Lymph % (Auto) 31.5 26.1 [place] % (Auto) 5.6 6.3 Eos % (Auto) 1.9 2.8 Baso % (Auto) 0.4 0.5 Lymph # (Auto) 3.9 2.2 [place] # (Auto) 0.7 0.5 Eos # (Auto) 0.2 0.2 Baso # (Auto) 0.1 0.0 Abs Immat Gran (auto) 0.03 0.02 Absolute Neuts (auto) 7.5 5.4 Absolute Nucleated RBC 0.000 0.000 Nucleated RBC % (auto) 0.0 0.0 ESR 101 H Anion Gap 13 11 L Estim Creat Clear Calc 106.2 86.8 Estimated GFR > 60 > 60 POC Glucose 124 H Random Glucose 82 162 H Lactic Acid 2.0 Calcium 8.8 D 8.2 L D Total Bilirubin 0.1 AST 18 ALT < 6 Alkaline Phosphatase 87 Total Creatine Kinase 88 Total Protein 9.5 H Albumin 3.0 L Lipase 6 L 01/07/25 12:40 MCV MCH MCHC RDW Plt Count MPV Immature Gran % (Auto) Neut % (Auto) Lymph % (Auto) [place] % (Auto) Eos % (Auto) Baso % (Auto) Lymph # (Auto) [place] # (Auto) Eos # (Auto) Baso # (Auto) Abs Immat Gran (auto) Absolute Neuts (auto) Absolute Nucleated RBC Nucleated RBC % (auto) ESR Anion Gap Estim Creat Clear Calc Estimated GFR POC Glucose 134 H Random Glucose Lactic Acid Calcium Total Bilirubin AST ALT Alkaline Phosphatase Total Creatine Kinase Total Protein Albumin Lipase Assessment and Plan (1) Diabetic foot ulcer: Status: Acute (2) Cellulitis: Status: Acute Plan 64-year-old male with a PMH significant for PVD s/p right BKA 09/2023, insulin-dependent type 2 diabetes, hx of left ankle/foot osteomyelitis, left TMA, AFib not on anticoagulation, HTN, hepatitis-C s/p tx in 2009, and chronically wheelchair-bound who presents to the ED for evaluation of worsening left lower extremity wounds x1 week. Pt admitted to the hospital for treatment and further evaluation of left lower extremity cellulitis secondary to nonhealing diabetic foot ulcer. Acute left lower extremity cellulitis no sepsis Presented with increase swelling, erythema, clear and foul-smelling discharge x1 week Continue IV vanc and Zosyn, started 01/06/2025 Wound care consult, obtain General surgery consult with noted to worsening symptoms WBC normalized, no fevers, Follow cultures Insulin-dependent type 2 diabetes Blood sugars stable continue Sliding-scale insulin, Lantus 10 units at bedtime, Diabetic diet Paroxysmal AFib Continue diltiazem 240 mg daily, Not on anticoagulation Opioid use disorder Continue methadone Chronic normocytic anemia Stable, baseline Mood disorder continue amitriptyline Full Code DVT Prophylaxis: Lovenox Pt requiring continued inpatient hospitalization for treatment and further evaluation of acute left lower extremity flatus secondary to chronic non healing diabetic foot ulcers that will require administration of IV antibiotics. Quality Stroke Does the patient have a stroke diagnosis?: No VTE Prior VTE?: No VTE Risk Level:: Medical - moderate - high VTE Device Contraindication: Treatment Not Indicated VTE Drug Contraindication: N/A - Med Ordered
--- NOTE | 2025-01-07 15:25 | PC.NURSE ---
this RN has made two attempts so far to reach out to [facility] outpatient methadone clinic for verification of dosing for patient. no answer both occasions and messages left on charge nurse line. Will try again in 20minutes if no call back.
[2025-01-07] MEDS: 0.9 % Sodium Chloride Flush 3 ML SYRINGE IVFLUSH ×2 (16:44→23:42)
[2025-01-07 16:50] VITALS: BP 183/86; PULSE 70; RESP 18; TEMP 36.1; O2SAT 98
[2025-01-07 16:50] LABS: Glucose, Whole Blood 158 mg/dL (60-115)
[2025-01-07 19:06] VITALS: BP 149/82; PULSE 76; RESP 16; TEMP 36.1; O2SAT 98
[2025-01-07 20:37] LABS: Glucose, Whole Blood 154 mg/dL (60-115)
[2025-01-07] MEDS: Insulin Lispro 100 UNIT/ML 3 ML VIAL SUBCUT (21:22)
--- NOTE | 2025-01-07 22:54 | PC.NURSE ---
Patient with multiple open wounds to left leg, large wound to plantar surface to left foot. Foot dressed with nonadherent gauze and wrapped with kerlix. Patient reports has not been seen by wound nurse yet. Patient denies pain or discomfort.
[2025-01-08 01:54] VITALS: BP 196/84; PULSE 80; RESP 18; TEMP 36.6; O2SAT 100
--- NOTE | 2025-01-08 02:15 | PM.EVENT ---
Event Note Date of Service: 01/08/25 Event Note: Nurse reported fall. Patient hit his forehead. Did not pass out prior to the fall. Reports he must have been falling asleep sitting up in bed and fell out of bed . Will obtain CT head. No seizure activity. Time Spent With Patient Time: Total time managing care of this patient today ____ minutes.
--- NOTE | 2025-01-08 02:19 | PC.NURSE ---
Addendum entered by Kendy Tolliver RN 01/08/25 04:06: Patient reassessed post fall. Patient denies pain, small bump to middle of forehead noted to remain the same, patient alert and oriented. Vitals stable, bp improved 155/71. Telesitter in place, bed alarm on and active. Addendum entered by Kendy Tolliver RN 01/08/25 02:57: Per Dr. Durham, try again in am for for imaging, will notify am shift. Addendum entered by Kendy Tolliver RN 01/08/25 02:38: Patient refusing to go for head ct, patient is alert and oriented x4. Patient reporting I'm fine, I don't need it Nursing first line supervisor spoke with patient, continues to refuse to go for imaging head ct. Dr. Durham made aware. Original Note: At 0200 patient fell out of bed, reporting hitting his forehead on either bedrail or bedside table, patient not sure. Patient reports he was sitting up in bed, falling asleep. Patient has been refusing bed alarm, camera for high fall risk precautions. Patient now agrees with bed alarm on and active, telesitter camera placed in room. Patient denies any other injury at this time. Vitals taken temperature 97.9, hr 80, bp 196/84, 100% on room air. Patient denies pain, reporting I'm fine . Dr. Durham notified, nursing first line supervisor notified. Orders for Head CT.
[2025-01-08 02:45] VITALS: BP 196/84; PULSE 80; RESP 18; TEMP 36.6; O2SAT 100
[2025-01-08] MEDS: Piperacillin Sodium/Tazobactam 4.5 GM in 0.9 % Sodium Chloride 100 ML IV ×4 (03:40→21:16)
[2025-01-08 03:55] VITALS: BP 155/71; PULSE 58; RESP 18; TEMP 36.6; O2SAT 98
--- NOTE | 2025-01-08 04:25 | PC.NURSE ---
Patient moved from Room 375 to Room 362 due to a unknown noxious odor.
[2025-01-08 07:12] VITALS: BP 169/78; PULSE 70; RESP 18; TEMP 36.6; O2SAT 97
[2025-01-08 07:38] LABS: Glucose, Whole Blood 135 mg/dL (60-115)
[2025-01-08] MEDS: dilTIAZem HCL CD 180 MG CAP.ER.24H PO (08:06)
[2025-01-08 09:23] LABS: Creatinine Clr Calc Pharmacy 103.8; Estimated Glomerular Filt Rate > 60
[2025-01-08 09:29] LABS: Vancomycin Trough 18.7 mcg/mL (10.0-20.0)
--- NOTE | 2025-01-08 09:51 | HE.PHANOTE ---
VANCO DOSE ADJUSTMENT BASED ON SCR AND TROUGH OF 18.7. DOSE CHANGED TO 1500 Q 24H. NEXT LEVEL 01/10 @ 1000
[2025-01-08] MEDS: 0.9 % Sodium Chloride Flush 3 ML SYRINGE IVFLUSH ×3 (09:55→21:14)
[2025-01-08] MEDS: Insulin Glargine,Hum.rec.anlog 100 UNIT/ML 10 ML VIAL 10 UNIT SUBCUT (09:55)
--- NOTE | 2025-01-08 09:59 | MHC.CLN ---
NUTRITION PATIENT WITH DM FOOT ULCER AND CELLULITIS WITH OPEN AREAS. DIET=DIABETIC 1800 KCALS. ADDING ENSURE MAX BID TO PROMOTE SKIN INTEGRITY. PROVIDES 300 KCALS, [address] TO FOLLOW UP WEEKLY.
--- NOTE | 2025-01-08 10:34 | HE.PHANOTE ---
METHADONE CONFIRMATION FORM METHADONE 80MG FROM [facility] LAST DONE 01/06 @ 0800
[2025-01-08] MEDS: methADONE HCl 20 MG/2 ML ORAL.CONC 80 MG PO (11:12)
[2025-01-08 11:14] LABS: Glucose, Whole Blood 236 mg/dL (60-115)
[2025-01-08] MEDS: vancomycin HCL 1,500 MG in 0.9 % Sodium Chloride 500 ML 333.33 MG IV (12:07)
[2025-01-08] MEDS: Insulin Lispro 100 UNIT/ML 3 ML VIAL SUBCUT ×2 (12:07→21:12)
--- NOTE | 2025-01-08 12:14 | MHC.CM.PN ---
Addendum entered by Liz Nance 01/08/25 15:04: charted in error Original Note: EMR reviewed and per MD rounds, pt is not medically cleared for discharge due to management of diabetic foot ulcers, pt receiving IV antibiotics.
[2025-01-08 15:10] VITALS: BP 114/85; PULSE 61; RESP 16; TEMP 36.1; O2SAT 97
--- NOTE | 2025-01-08 15:32 | MHC.CM.PN ---
EMR reviewed and pt is medically cleared for discharge home with resumption of previous [facility] services, and out patient wound clinic services. This CM met with pt to discuss discharge, and he states he doesn't have a place to go to today, when asked why he cannot return home today, pts answer is vague, mentioning something about his daughter a motel room, but states that he will be all set to discharge home tomorrow. Hospitalist updated. Ref[place] [facility] [place]. This CM placed a call to pts daughter/HCP Jessi, unable to reach x 2, voice message left, awaiting return call.
[2025-01-08 15:36] LABS: Glucose, Whole Blood 76 mg/dL (60-115)
--- NOTE | 2025-01-08 15:38 | HO.WOUND ---
Wound Consult: Initial 64yr old?Male admitted [place] [facility] [place] - See progress notes and H&P for detailed history.? Wound consult follow up for Left Lower Leg and foot wounds POA.? Patient agreeable to assessment and photo documentation.? Patient educated on the importance of blood sugar control, he reports understanding. His daughter was at the bedside and reports understanding. Patient legs continues to be in dependent position when checking in on pt - educated on the importance of lower leg elevation and off loading pressure and limiting walking directly on wound when at home. He reports understanding. Patient reports he changes his own dressig at home - patient will benefit from VNA follow up if he does not have it already and outpt wound clinic follow up. Left Lateral Plantar Foot Etiology: ?Diabetic wound Wound Bed: red pink moist tissue with moist yellow slough at 3 o'clock Drainage / Odor: clifton drainage noted no odor note no s/s of infection at this time Edges: ? well defined Shara wound: dry thick callused areas ?macerated edges No Induration noted Pain: denies pain Goals of Treatment: Moisture management with Durafiber AG? Left Leg Etiology: Venous wound Wound Bed: pale pink moist wound bed yellow crusted wound beds Drainage / Odor: yellow drainage noted on dressing - No odor noted crusted in some areas Edges: ? well defined and attached Shara wound: Hemosiderin staining noted - scar tissue noted - No Induration, Fluctuance or Warmth noted Pain: denies pain Goals of Treatment: Moisture management with Durafiber AG Recommendations: 1. Turn and Reposition every 2 hours and as needed for patient comfort.? Use pillows or wedges to support off loading positions. 2. Off Load all bony prominences with use of pillows and heel boots if needed.? Apply Preventative foams where needed. ? 3. Monitor for incontinence and moisture control, use barrier creams when needed for prevention and treatment. 4. Provide adequate and supplemental nutrition.? 5. Order low air loss mattress. 6. Maintain blood glucose levels per Providers order. 7. Left Plantar Foot and Left Lower Leg - Elevate lower legs - Off Load Pressure and limit ambulating on foot. Cleanse with saline, pat dry. ?Apply barrier cream to wound bed. Cover and pack wound bed with Durafiber AG, Cover with Dry gauze, ABD pad and wrap. Patient prefers sabine wrap to follow as it keeps the dressing in place per his statement. Change every other day. Recommend follow up out patient Wound Clinic at [address] [place] [id number] and to call for an appointment at time of discharge. [phone].? Recommend VNA services for home dressing care. Re-consult wound care Nurse for wound deterioration or wound changes.
--- NOTE | 2025-01-08 16:11 | HO.PM.IMPN ---
Subjective Subjective Date of Service: 01/08/25 Interval History: Offers no acute complaints, has been doing wound care himself, does not have enough supplies has not been to wound clinic and has no VNA services. Denies foot pain/no fever. Review of Systems All other system reviewed and are negative. Physical Exam Vital Signs: Vital Signs: Last Vital Signs Temp 97.0 F 01/08/25 15:10 Pulse 61 01/08/25 15:10 Resp 16 01/08/25 15:10 BP 114/85 01/08/25 15:10 Pulse Ox 97 01/08/25 15:10 O2 Del Method Room Air 01/08/25 15:10 BMI result Body Mass Index 32.0 Const: Other: General resting comfortably in no acute distress. Neck no JVD. CVS regular rate rhythm, Respiratory lungs clear to auscultation, no respiratory distress Gastrointestinal abdomen soft, non tender, bowel sounds audible Extremities right BKA/left foot mild leg swelling with multiple open wounds left leg/well healed, TMA stump/large clean based wound plantar surface left foot, see picture in history and physical note Neuro non focal Appropriate affect Objective Data Active Medications Acetaminophen (Acetaminophen 325 Mg Tablet) 650 mg PO Q6H PRN PRN Reason: Pain, Mild 1-3,fever,headache Amitriptyline HCl (Amitriptyline Hcl 50 Mg Tablet) 50 mg PO BEDTIME PRN PRN Reason: Depression Calcium Carbonate (Calcium Carbonate 750 Mg Tab.Chew) 750 mg PO Q4H PRN PRN Reason: Heartburn Dextrose (Dextrose 50 % 25 Gm/50 Ml Syringe) 25 gm IVPUSH Q15M PRN; Protocol PRN Reason: per Hypoglycemia Standing Ord. Diltiazem HCl (Diltiazem Hcl Cd 180 Mg Cap.Er.24h) 180 mg PO DAILY [facility]; Protocol Last Admin: 01/08/25 08:06 Dose: 180 mg Documented By: MARISA Enoxaparin Sodium (Enoxaparin Sodium 40 Mg/0.4 Ml Syringe) 40 mg SUBCUT Q24H [facility] Last Admin: 01/07/25 21:23 Dose: 40 mg Documented By: EFRAIN Glucose (Glucose Gel 15 Gm Gel..Gram.) 15 gm PO Q15M PRN; Protocol PRN Reason: per Hypoglycemia Standing Ord. Piperacillin Sod/Tazobactam (Sod 4.5 gm/ Sodium Chloride) 100 mls @ 200 mls/hr IV Q6H [facility] Last Infusion: 01/08/25 10:59 Dose: Infused Documented By: MARISA Vancomycin HCl 1,500 mg/ (Sodium Chloride) 500 mls @ 333.333 mls/hr IV Q24H [facility] Last Infusion: 01/08/25 14:03 Dose: Infused Documented By: MARISA Insulin Glargine (Insulin Glargine,Hum.Rec.Anlog 100 Unit/Ml 10 Ml Vial) 10 unit SUBCUT DAILY [facility] Last Admin: 01/08/25 09:55 Dose: 10 unit Documented By: MARISA Insulin Human Lispro (Insulin Lispro 100 Unit/Ml 3 Ml Vial) 0 unit SUBCUT QIDACHS [facility]; Protocol Last Admin: 01/08/25 12:07 Dose: 4 unit Documented By: MARISA Magnesium Hydroxide (Milk Of Magnesia 30 Ml Oral.Susp) 30 ml PO DAILY PRN PRN Reason: Constipation Melatonin (Melatonin 3 Mg Tablet) 6 mg PO BEDTIME PRN PRN Reason: Insomnia Methadone HCl (Methadone Hcl 20 Mg/2 Ml Oral.Conc) 80 mg PO DAILY [facility] Last Admin: 01/08/25 11:12 Dose: 80 mg Documented By: MARISA Co-signed By: VANE Ondansetron HCl (Ondansetron Hcl 4 Mg/2 Ml Vial) 4 mg IVPUSH Q8H PRN PRN Reason: Nausea and Vomiting Pharmacy Consult (Consult Rx Vancomycin Dosing) 1 each MISCELLANE DAILY PRN PRN Reason: Consult order Sodium Chloride (0.9 % Sodium Chloride Flush 3 Ml Syringe) 3 ml IVFLUSH QSHIFT [facility] Last Admin: 01/08/25 09:55 Dose: 3 ml Documented By: MARISA Labs 01/07/25 03:54 01/08/25 09:01 Labs: Laboratory Results - last 24 hr 01/07/25 01/07/25 01/08/25 16:44 20:34 07:34 Estim Creat Clear Calc Estimated GFR POC Glucose 158 H 154 H 135 H Vancomycin Trough 01/08/25 01/08/25 01/08/25 09:01 11:11 15:32 Estim Creat Clear Calc 103.8 Estimated GFR > 60 POC Glucose 236 H 76 Vancomycin Trough 18.7 Microbiology Microbiology Results: Microbiology 01/06/25 15:34 Blood Culture - Preliminary Blood - Venous No growth after 24 hours. 01/06/25 15:34 Blood Culture - Preliminary Blood - Venous No growth after 24 hours. Assessment and Plan (1) Diabetic foot ulcer: Status: Acute (2) Cellulitis: Status: Acute Plan 64-year-old male with a PMH significant for PVD s/p right BKA 09/2023, insulin-dependent type 2 diabetes, hx of left ankle/foot osteomyelitis, left TMA, AFib not on anticoagulation, HTN, hepatitis-C s/p tx in 2009, and chronically wheelchair-bound who presents to the ED for evaluation of worsening left lower extremity wounds x1 week. Pt admitted to the hospital for treatment and further evaluation of left lower extremity cellulitis secondary to nonhealing diabetic foot ulcer. Acute left lower extremity cellulitis no sepsis Presented with increase swelling, erythema, clear and foul-smelling discharge x1 week on IV vanc and Zosyn, started 01/06/2025 WBC normalized, no fevers, blood cultures x2 negative Will DC IV antibiotics and place on doxycycline 100 mg b.i.d. for 5 days Seen by wound nurse wound bed appears red pink moist tissue with moist yellow slough, clifton drainage noted, wound nurse recommend moisture management with dura fiber Ag Spoke with case liner she will arrange VNA services and recommend follow-up at wound clinic Insulin-dependent type 2 diabetes Blood sugars stable continue Sliding-scale insulin, Lantus at bedtime, Diabetic diet Paroxysmal AFib Continue diltiazem 240 mg daily, Not on anticoagulation Opioid use disorder Continue methadone Chronic normocytic anemia Stable, baseline Mood disorder continue amitriptyline Full Code DVT Prophylaxis: Lovenox Pt requiring continued inpatient hospitalization for treatment and further evaluation of acute left lower extremity cellulitis secondary to chronic non healing diabetic foot ulcers and safe disposition. Quality Stroke Does the patient have a stroke diagnosis?: No VTE Prior VTE?: No VTE Risk Level:: Medical - moderate - high VTE Device Contraindication: Treatment Not Indicated VTE Drug Contraindication: N/A - Med Ordered
[2025-01-08 19:29] VITALS: BP 163/74; PULSE 63; RESP 18; TEMP 36.3; O2SAT 100
[2025-01-08 20:41] LABS: Glucose, Whole Blood 160 mg/dL (60-115)
[2025-01-08] MEDS: Enoxaparin Sodium 40 MG/0.4 ML SYRINGE SUBCUT (21:13)
[2025-01-09 02:30] VITALS: BP 183/77; PULSE 65; RESP 18; TEMP 36.1; O2SAT 97
[2025-01-09 02:33] VITALS: BP 183/77; PULSE 65; RESP 18; TEMP 36.1; O2SAT 94
[2025-01-09 02:54] VITALS: BP 150/64
[2025-01-09] MEDS: Piperacillin Sodium/Tazobactam 4.5 GM in 0.9 % Sodium Chloride 100 ML IV ×4 (03:36→22:19)
[2025-01-09 07:17] LABS: Glucose, Whole Blood 153 mg/dL (60-115)
[2025-01-09 07:44] VITALS: BP 178/83; PULSE 62; RESP 14; TEMP 36.4; O2SAT 97
--- NOTE | 2025-01-09 07:46 | P.DS_ITS ---
DS: Providers Provider Date of Service: 01/09/25 Date of admission: 01/06/25 22:00 Date of discharge: 01/09/25 Primary care physician: Mac Clarke MD Admitting clinician: Yomaira Ryan Attending physician on admission: Jim Durham Consults: 01/06/25 22:36 Consult to Wound Care Routine Reason for consultation: Worsening diabetic foot ulcers Attending physician on discharge: Daveynivia Ivy Discharging clinician: Marlene Mcdonough DS: Diagnosis Discharge Diagnosis (1) Diabetic foot ulcer: Status: Acute (2) Cellulitis: Status: Acute Physical Exam Vital Signs: Vital Signs: Last Vital Signs Temp 97.6 F 01/09/25 07:44 Pulse 62 01/09/25 07:44 Resp 14 01/09/25 07:44 BP 178/83 H 01/09/25 07:44 Pulse Ox 97 01/09/25 07:44 O2 Del Method Room Air 01/09/25 07:44 BMI result Body Mass Index 32.0 DS: Data Data Completed and Pending Completed studies during hospitalization [Text1]: Procedures Detachment at Left 5th Toe, Complete, Open Approach (08/02/24) Detachment at Right Lower Leg, High, Open Approach (03/03/23) Excision of Left Foot Subcutaneous Tissue and Fascia, Open Approach (08/02/24) Excision of Left Lower Leg Skin, External Approach (10/29/24) Insertion of Infusion Device into Superior Vena Cava, Percutaneous Approach (06/21/24) Introduction of Anesthetic Agent into Peripheral Nerves and Plexi, Percutaneous Approach (08/02/24) Ultrasonography of Superior Vena Cava, Guidance (06/21/24) Labs on day of discharge: Laboratory Results - last 24 hr 01/08/25 01/08/25 01/08/25 09:01 11:11 15:32 Creatinine 0.92 Estim Creat Clear Calc 103.8 Estimated GFR > 60 POC Glucose 236 H 76 Vancomycin Trough 18.7 01/08/25 01/09/25 20:27 07:12 Creatinine Estim Creat Clear Calc Estimated GFR POC Glucose 160 H 153 H Vancomycin Trough Preliminary micro results at discharge 01/06/25 15:34 Blood Culture - Preliminary Blood - Venous No growth after 48 hours. 01/06/25 15:34 Blood Culture - Preliminary Blood - Venous No growth after 48 hours. Discharge Plan Discharge Referrals: [facility] [Outside] - 1 Week Mac Clarke MD [Primary Care Provider] - 1 Week Discharge Medications: New doxycycline monohydrate 100 mg capsule 100 mg PO BID Qty: 10 0RF Continued (DME) Off loading shoe large See Rx Instructions .Route .MEDSUPPLY Qty: 1 0RF Rx Instructions: As directed (DME) Xeroform Petrolatum Dressing 1 X 8 bandage See Rx Instructions .ROUTE .MEDSUPPLY Qty: 200 0RF Rx Instructions: apply to foot wound daily (DME) adhesive tape 2 X 10 -yard tape See Rx Instructions .ROUTE .MEDSUPPLY Qty: 1 3RF Rx Instructions: apply to foot wound daily (DME) prosthetic Kit See Rx Instructions .Route Qty: 1 0RF Rx Instructions: As directed (DME) Bedside commode See Rx Instructions .Route .MEDSUPPLY Qty: 1 0RF Rx Instructions: As directed (DME) Shower Chair See Rx Instructions .Route .MEDSUPPLY Qty: 1 0RF Rx Instructions: As directed ([facility] [place] Walker See Rx Instructions .Route .MEDSUPPLY Qty: 1 0RF Rx Instructions: As directed amitriptyline 50 mg Tablet 50 mg PO BEDTIME PRN (Reason: Depression) methadone 10 mg/mL Concentrate 80 mg PO DAILY Rx Instructions: [facility] [place] Wheel chair Kit See Rx Instructions .Route Qty: 1 0RF Rx Instructions: As directed insulin glargine [Lantus U-100 Insulin] 100 unit/mL solution 10 unit subcut DAILY diltiazem HCl 180 mg capsule,extended release 24hr 180 mg PO DAILY (DME) FreeStyle Lite Strips Strip See Rx Instructions Not Applicable TID Qty: 10 Rx Instructions: As directed (DME) insulin syringe-needle U-100 [BD Insulin Syringe Ultra-Fine] 1 mL 31 gauge x 5/16 syringe See Rx Instructions .ROUTE DAILY Qty: 10 Rx Instructions: As directed (DME) Band-Aid Rolled Gauze 4 X 2.5 -yard bandage See Rx Instructions .ROUTE .MEDSUPPLY Qty: 30 3RF Rx Instructions: apply to foot wound daily (DME) Band-Aid Gauze Pads 3 X 3 bandage See Rx Instructions .ROUTE .MEDSUPPLY Qty: 25 3RF Rx Instructions: apply to foot wound daily Diet: Diabetic diet Activity on Discharge: As tolerated Print Language: German Activity Restrictions/Additional Instructions: Topical Wound Care Recommendations: Left Plantar Foot and Left Lower Leg - Elevate lower legs - Off Load Pressure and limit ambulating on foot. Cleanse with saline, pat dry. ?Apply barrier cream to wound bed. Cover and pack wound bed with Durafiber AG, Cover with Dry gauze, ABD pad and wrap. Patient prefers sabine wrap to follow as it keeps the dressing in place per his statement. Change every other day. Recommend follow up out patient Wound Clinic at [address] [place] [id number] and to call for an appointment at time of discharge. [phone].? Recommend VNA services for home dressing care.
[2025-01-09] MEDS: methADONE HCl 20 MG/2 ML ORAL.CONC 80 MG PO (08:08)
[2025-01-09] MEDS: dilTIAZem HCL CD 180 MG CAP.ER.24H PO (08:11)
[2025-01-09] MEDS: Insulin Glargine,Hum.rec.anlog 100 UNIT/ML 10 ML VIAL 10 UNIT SUBCUT (08:11)
[2025-01-09] MEDS: 0.9 % Sodium Chloride Flush 3 ML SYRINGE IVFLUSH ×3 (08:11→20:16)
[2025-01-09] MEDS: Insulin Lispro 100 UNIT/ML 3 ML VIAL SUBCUT ×3 (08:12→20:15)
[2025-01-09 11:39] LABS: Glucose, Whole Blood 251 mg/dL (60-115)
[2025-01-09] MEDS: vancomycin HCL 1,500 MG in 0.9 % Sodium Chloride 500 ML 333.33 MG IV (11:58)
--- NOTE | 2025-01-09 12:16 | HO.PM.IMPN ---
Subjective Subjective Date of Service: 01/09/25 Interval History: Seen in follow up for diabetic foot infection, cellulitis Interval history: Reports 9/10 pain in LLE. No fevers, hypertensive. Vague when asked about disposition. No definite answer about place to go. Sister not answering phone. Review of Systems Review of Systems: Yes all other systems are reviewed and are negative Physical Exam Vital Signs: Vital Signs: Last Vital Signs Temp 97.6 F 01/09/25 07:44 Pulse 62 01/09/25 07:44 Resp 14 01/09/25 07:44 BP 178/83 H 01/09/25 07:44 Pulse Ox 97 01/09/25 07:44 O2 Del Method Room Air 01/09/25 07:44 BMI result Body Mass Index 32.0 Constitutional - Awake and Alert, No apparent distress Eyes - PERRLA, EOMI Cardiovascular - S1S2, RRR, No edema Respiratory - Normal lung expansion, Normal respiratory effort, No respiratory distress, CTA bilaterally Extremities - R BKA/L TMA with large clean based wound of plantar surface L foot. See H/P. Left lower leg with multiple open wounds with scant purulent drainage. See below Skin - Warm/Dry Neurological - Alert & oriented x3 Psychological - Appropriate affect Objective Data Active Medications Acetaminophen (Acetaminophen 325 Mg Tablet) 650 mg PO Q6H PRN PRN Reason: Pain, Mild 1-3,fever,headache Amitriptyline HCl (Amitriptyline Hcl 50 Mg Tablet) 50 mg PO BEDTIME PRN PRN Reason: Depression Calcium Carbonate (Calcium Carbonate 750 Mg Tab.Chew) 750 mg PO Q4H PRN PRN Reason: Heartburn Dextrose (Dextrose 50 % 25 Gm/50 Ml Syringe) 25 gm IVPUSH Q15M PRN; Protocol PRN Reason: per Hypoglycemia Standing Ord. Diltiazem HCl (Diltiazem Hcl Cd 180 Mg Cap.Er.24h) 180 mg PO DAILY [facility]; Protocol Last Admin: 01/09/25 08:11 Dose: 180 mg Documented By: XIOMY Enoxaparin Sodium (Enoxaparin Sodium 40 Mg/0.4 Ml Syringe) 40 mg SUBCUT Q24H [facility] Last Admin: 01/08/25 21:13 Dose: 40 mg Documented By: ROSY Glucose (Glucose Gel 15 Gm Gel..Gram.) 15 gm PO Q15M PRN; Protocol PRN Reason: per Hypoglycemia Standing Ord. Piperacillin Sod/Tazobactam (Sod 4.5 gm/ Sodium Chloride) 100 mls @ 200 mls/hr IV Q6H [facility] Last Infusion: 01/09/25 10:54 Dose: Infused Documented By: XIOMY Vancomycin HCl 1,500 mg/ (Sodium Chloride) 500 mls @ 333.333 mls/hr IV Q24H [facility] Last Admin: 01/09/25 11:58 Dose: 333.33 mls/hr Documented By: XIOMY Insulin Glargine (Insulin Glargine,Hum.Rec.Anlog 100 Unit/Ml 10 Ml Vial) 10 unit SUBCUT DAILY [facility] Last Admin: 01/09/25 08:11 Dose: 10 unit Documented By: XIOMY Insulin Human Lispro (Insulin Lispro 100 Unit/Ml 3 Ml Vial) 0 unit SUBCUT QIDACHS [facility]; Protocol Last Admin: 01/09/25 12:03 Dose: 6 unit Documented By: XIOMY Magnesium Hydroxide (Milk Of Magnesia 30 Ml Oral.Susp) 30 ml PO DAILY PRN PRN Reason: Constipation Melatonin (Melatonin 3 Mg Tablet) 6 mg PO BEDTIME PRN PRN Reason: Insomnia Methadone HCl (Methadone Hcl 20 Mg/2 Ml Oral.Conc) 80 mg PO DAILY [facility] Last Admin: 01/09/25 08:08 Dose: 80 mg Documented By: XIOMY Co-signed By: FLORENCE Ondansetron HCl (Ondansetron Hcl 4 Mg/2 Ml Vial) 4 mg IVPUSH Q8H PRN PRN Reason: Nausea and Vomiting Pharmacy Consult (Consult Rx Vancomycin Dosing) 1 each MISCELLANE DAILY PRN PRN Reason: Consult order Sodium Chloride (0.9 % Sodium Chloride Flush 3 Ml Syringe) 3 ml IVFLUSH QSHIFT [facility] Last Admin: 01/09/25 08:11 Dose: 3 ml Documented By: XIOMY Labs 01/07/25 03:54 01/09/25 13:02 Labs: Laboratory Results - last 24 hr 01/08/25 01/08/25 01/09/25 15:32 20:27 07:12 POC Glucose 76 160 H 153 H 01/09/25 11:34 POC Glucose 251 H Microbiology Microbiology Results: Microbiology 01/06/25 15:34 Blood Culture - Preliminary Blood - Venous No growth after 48 hours. 01/06/25 15:34 Blood Culture - Preliminary Blood - Venous No growth after 48 hours. Assessment and Plan (1) Diabetic foot ulcer: Status: Acute (2) Cellulitis: Status: Acute (3) Diabetic infection of left foot: Status: Acute (4) Open wound: Status: Acute Plan 64-year-old male with a PMH significant for PVD s/p right BKA 09/2023, insulin-dependent type 2 diabetes, hx of left ankle/foot osteomyelitis, left TMA, AFib not on anticoagulation, HTN, hepatitis-C s/p tx in 2009, and chronically wheelchair-bound who presents to the ED for evaluation of worsening left lower extremity wounds x1 week. Pt admitted to the hospital for treatment and further evaluation of left lower extremity cellulitis secondary to nonhealing diabetic foot ulcer. Acute left lower extremity cellulitis no sepsis Presented with increase swelling, erythema, clear and foul-smelling discharge x1 week with improvement but still with scant purulent/malodorous drainage LLE on IV vanc and Zosyn, started 01/06/2025 WBC normalized, no fevers, blood cultures x2 negative DC on doxycycline 100 mg b.i.d. for 5 days once cleared for dc Seen by wound nurse wound bed appears red pink moist tissue with moist yellow slough, clifton drainage noted, wound nurse recommend moisture management with dura fiber Ag Spoke with bilingual patient support caseworker she will arrange VNA services and recommend follow-up at wound clinic Insulin-dependent type 2 diabetes Blood sugars stable continue Sliding-scale insulin, Lantus at bedtime, Diabetic diet Paroxysmal AFib Continue diltiazem 240 mg daily, Not on anticoagulation Opioid use disorder Continue methadone Chronic normocytic anemia Stable, baseline Mood disorder continue amitriptyline Hypertension uncontrolled. Continue diltiazem. Add losartan 50mg daily Full Code DVT Prophylaxis: Lovenox Pt requiring continued inpatient hospitalization for treatment and further evaluation of acute left lower extremity cellulitis secondary to chronic non healing diabetic foot ulcers and safe disposition. Quality Stroke Does the patient have a stroke diagnosis?: No VTE Prior VTE?: No VTE Risk Level:: Medical - moderate - high VTE Device Contraindication: Treatment Not Indicated VTE Drug Contraindication: N/A - Med Ordered
[2025-01-09 13:21] LABS: Estimated Glomerular Filt Rate > 60
[2025-01-09] MEDS: Losartan Potassium 50 MG TABLET PO (13:37)
[2025-01-09 15:57] VITALS: BP 153/91; PULSE 72; RESP 14; TEMP 36.6; O2SAT 98
[2025-01-09 16:53] LABS: Glucose, Whole Blood 90 mg/dL (60-115)
[2025-01-09 19:15] VITALS: BP 147/70; PULSE 61; RESP 20; TEMP 36.1; O2SAT 98
[2025-01-09 19:40] LABS: Glucose, Whole Blood 220 mg/dL (60-115)
[2025-01-09] MEDS: Enoxaparin Sodium 40 MG/0.4 ML SYRINGE SUBCUT (22:15)
[2025-01-10 03:21] VITALS: BP 162/86; PULSE 69; RESP 16; TEMP 36.3; O2SAT 98
[2025-01-10] MEDS: Piperacillin Sodium/Tazobactam 4.5 GM in 0.9 % Sodium Chloride 100 ML IV (03:30)
--- NOTE | 2025-01-10 07:17 | HO.PM.IMPN ---
Subjective Subjective Date of Service: 01/10/25 Interval History: Seen in follow up for diabetic foot infection, cellulitis Interval history: Reports 910 pain in LLE. No fevers, hypertensive. Vague when asked about disposition. No definite answer about place to go. Sister not answering phone. Review of Systems Review of Systems: Yes all other systems are reviewed and are negative Physical Exam Vital Signs: Vital Signs: Last Vital Signs Temp 97.4 F 01/10/25 03:21 Pulse 69 01/10/25 03:21 Resp 16 01/10/25 03:21 BP 162/86 H 01/10/25 03:21 Pulse Ox 98 01/10/25 03:21 O2 Del Method Room Air 01/10/25 03:21 BMI result Body Mass Index 32.0 Objective Data Active Medications Acetaminophen (Acetaminophen 325 Mg Tablet) 650 mg PO Q6H PRN PRN Reason: Pain, Mild 1-3,fever,headache Amitriptyline HCl (Amitriptyline Hcl 50 Mg Tablet) 50 mg PO BEDTIME PRN PRN Reason: Depression Calcium Carbonate (Calcium Carbonate 750 Mg Tab.Chew) 750 mg PO Q4H PRN PRN Reason: Heartburn Dextrose (Dextrose 50 % 25 Gm/50 Ml Syringe) 25 gm IVPUSH Q15M PRN; Protocol PRN Reason: per Hypoglycemia Standing Ord. Diltiazem HCl (Diltiazem Hcl Cd 180 Mg Cap.Er.24h) 180 mg PO DAILY [facility]; Protocol Last Admin: 01/09/25 08:11 Dose: 180 mg Documented By: XIOMY Enoxaparin Sodium (Enoxaparin Sodium 40 Mg/0.4 Ml Syringe) 40 mg SUBCUT Q24H [facility] Last Admin: 01/09/25 22:15 Dose: 40 mg Documented By: ROSY Glucose (Glucose Gel 15 Gm Gel..Gram.) 15 gm PO Q15M PRN; Protocol PRN Reason: per Hypoglycemia Standing Ord. Piperacillin Sod/Tazobactam (Sod 4.5 gm/ Sodium Chloride) 100 mls @ 200 mls/hr IV Q6H [facility] Last Infusion: 01/10/25 04:07 Dose: Infused Documented By: ROSY Vancomycin HCl 1,500 mg/ (Sodium Chloride) 500 mls @ 333.333 mls/hr IV Q24H [facility] Last Infusion: 01/09/25 13:41 Dose: Infused Documented By: XIOMY Insulin Glargine (Insulin Glargine,Hum.Rec.Anlog 100 Unit/Ml 10 Ml Vial) 10 unit SUBCUT DAILY [facility] Last Admin: 01/09/25 08:11 Dose: 10 unit Documented By: XIOMY Insulin Human Lispro (Insulin Lispro 100 Unit/Ml 3 Ml Vial) 0 unit SUBCUT QIDACHS [facility]; Protocol Last Admin: 01/09/25 20:15 Dose: 4 unit Documented By: ROSY Losartan Potassium (Losartan Potassium 50 Mg Tablet) 50 mg PO DAILY [facility]; Protocol Last Admin: 01/09/25 13:37 Dose: 50 mg Documented By: XIOMY Magnesium Hydroxide (Milk Of Magnesia 30 Ml Oral.Susp) 30 ml PO DAILY PRN PRN Reason: Constipation Melatonin (Melatonin 3 Mg Tablet) 6 mg PO BEDTIME PRN PRN Reason: Insomnia Methadone HCl (Methadone Hcl 20 Mg/2 Ml Oral.Conc) 80 mg PO DAILY [facility] Last Admin: 01/09/25 08:08 Dose: 80 mg Documented By: XIOMY Co-signed By: FLORENCE Ondansetron HCl (Ondansetron Hcl 4 Mg/2 Ml Vial) 4 mg IVPUSH Q8H PRN PRN Reason: Nausea and Vomiting Pharmacy Consult (Consult Rx Vancomycin Dosing) 1 each MISCELLANE DAILY PRN PRN Reason: Consult order Sodium Chloride (0.9 % Sodium Chloride Flush 3 Ml Syringe) 3 ml IVFLUSH QSHIFT [facility] Last Admin: 01/09/25 20:16 Dose: 3 ml Documented By: ROSY Labs 01/07/25 03:54 01/10/25 07:28 Labs: Laboratory Results - last 24 hr 01/09/25 01/09/25 01/09/25 07:12 11:34 13:02 Estim Creat Clear Calc 91.0 Estimated GFR > 60 POC Glucose 153 H 251 H 01/09/25 01/09/25 16:45 19:19 Estim Creat Clear Calc Estimated GFR POC Glucose 90 220 H Assessment and Plan (1) Diabetic foot ulcer: Status: Acute (2) Cellulitis: Status: Acute (3) Diabetic infection of left foot: Status: Acute (4) Open wound: Status: Acute Plan 64-year-old male with a PMH significant for PVD s/p right BKA 09/2023, insulin-dependent type 2 diabetes, hx of left ankle/foot osteomyelitis, left TMA, AFib not on anticoagulation, HTN, hepatitis-C s/p tx in 2009, and chronically wheelchair-bound who presents to the ED for evaluation of worsening left lower extremity wounds x1 week. Pt admitted to the hospital for treatment and further evaluation of left lower extremity cellulitis secondary to nonhealing diabetic foot ulcer. Acute left lower extremity cellulitis no sepsis Presented with increase swelling, erythema, clear and foul-smelling discharge x1 week with improvement but still with scant purulent/malodorous drainage LLE on IV vanc and Zosyn, started 01/06/2025. 01/10 changed to augmentin WBC normalized, no fevers, blood cultures x2 negative Seen by wound nurse wound bed appears red pink moist tissue with moist yellow slough, clifton drainage noted, wound nurse recommend moisture management with dura fiber Ag Still significant slough when dressing removed from plantar surface L foot. Discussed with Dr. Ivy. Surgery consult placed Spoke with counter caser she will arrange VNA services and recommend follow-up at wound clinic Insulin-dependent type 2 diabetes Blood sugars stable continue Sliding-scale insulin, Lantus at bedtime, Diabetic diet Paroxysmal AFib Continue diltiazem 240 mg daily, Not on anticoagulation Opioid use disorder Continue methadone Chronic normocytic anemia Stable, baseline Mood disorder continue amitriptyline Hypertension uncontrolled. Continue diltiazem. Add losartan 50mg daily monitor bp Full Code DVT Prophylaxis: Lovenox Pt requiring continued inpatient hospitalization for treatment and further evaluation of acute left lower extremity cellulitis secondary to chronic non healing diabetic foot ulcers awaiting general surgery with possible need for debridement. Will discharge home with daughters. Quality Stroke Does the patient have a stroke diagnosis?: No VTE Prior VTE?: No VTE Risk Level:: Medical - moderate - high VTE Device Contraindication: Treatment Not Indicated VTE Drug Contraindication: N/A - Med Ordered
[2025-01-10 07:30] VITALS: BP 165/76; PULSE 60; RESP 16; TEMP 36.2; O2SAT 99
[2025-01-10 07:44] LABS: Creatinine Clr Calc Pharmacy 103.8; Estimated Glomerular Filt Rate > 60
[2025-01-10 07:53] LABS: Glucose, Whole Blood 123 mg/dL (60-115)
[2025-01-10 07:56] LABS: Anion Gap 10 (12-20); Blood Urea Nitrogen 16 mg/dL (9-16); Calcium 8.9 mg/dL (8.4-10.2); Carbon Dioxide 27 mmol/L (22-29); Chloride 105 mmol/L (96-108); Creatinine Clr Calc Pharmacy 103.8; Estimated Glomerular Filt Rate > 60; Glucose Random 152 mg/dL (60-115); Potassium 4.7 mmol/L (3.3-5.1); Sodium 137 mmol/L (135-145)
[2025-01-10] MEDS: Insulin Glargine,Hum.rec.anlog 100 UNIT/ML 10 ML VIAL 10 UNIT SUBCUT (08:27)
[2025-01-10] MEDS: 0.9 % Sodium Chloride Flush 3 ML SYRINGE IVFLUSH ×3 (08:28→20:32)
[2025-01-10] MEDS: Amoxicillin/Potassium Clav 875 MG TABLET PO ×2 (08:29→20:30)
[2025-01-10] MEDS: dilTIAZem HCL CD 180 MG CAP.ER.24H PO (08:30)
[2025-01-10] MEDS: Losartan Potassium 50 MG TABLET PO (08:30)
[2025-01-10] MEDS: methADONE HCl 20 MG/2 ML ORAL.CONC 80 MG PO (08:30)
[2025-01-10 11:28] LABS: Glucose, Whole Blood 222 mg/dL (60-115)
[2025-01-10] MEDS: Insulin Lispro 100 UNIT/ML 3 ML VIAL SUBCUT ×2 (11:35→20:31)
[2025-01-10 15:59] VITALS: BP 148/72; PULSE 64; RESP 20; TEMP 36.3; O2SAT 98
[2025-01-10 16:12] LABS: Glucose, Whole Blood 128 mg/dL (60-115)
[2025-01-10 19:25] LABS: Glucose, Whole Blood 184 mg/dL (60-115)
[2025-01-10 20:00] VITALS: BP 153/70; PULSE 62; RESP 20; TEMP 36; O2SAT 98
[2025-01-10] MEDS: Acetaminophen 325 MG TABLET 650 MG PO (20:30)
[2025-01-10] MEDS: Enoxaparin Sodium 40 MG/0.4 ML SYRINGE SUBCUT (21:58)
[2025-01-11 04:00] VITALS: BP 161/74; PULSE 62; RESP 17; TEMP 36.1; O2SAT 98
[2025-01-11] MEDS: Acetaminophen 325 MG TABLET 650 MG PO (04:15)
[2025-01-11] MEDS: Ketorolac Tromethamine 30 MG/ML VIAL IVPUSH (05:07)
[2025-01-11 06:43] LABS: Creatinine Clr Calc Pharmacy 83.1; Estimated Glomerular Filt Rate > 60
[2025-01-11 07:07] VITALS: BP 162/58; PULSE 56; RESP 16; TEMP 36.1; O2SAT 100
[2025-01-11 07:46] LABS: Glucose, Whole Blood 161 mg/dL (60-115)
[2025-01-11] MEDS: Insulin Lispro 100 UNIT/ML 3 ML VIAL SUBCUT ×3 (08:00→15:19)
[2025-01-11] MEDS: dilTIAZem HCL CD 180 MG CAP.ER.24H PO (08:00)
[2025-01-11] MEDS: Losartan Potassium 50 MG TABLET PO (08:00)
[2025-01-11] MEDS: Insulin Glargine,Hum.rec.anlog 100 UNIT/ML 10 ML VIAL 10 UNIT SUBCUT (08:00)
[2025-01-11] MEDS: Amoxicillin/Potassium Clav 875 MG TABLET PO (08:00)
[2025-01-11] MEDS: methADONE HCl 20 MG/2 ML ORAL.CONC 80 MG PO (08:01)
[2025-01-11] MEDS: 0.9 % Sodium Chloride Flush 3 ML SYRINGE IVFLUSH ×2 (08:01→15:19)
--- NOTE | 2025-01-11 08:11 | PM.DS ---
DS: Providers Provider Date of Service: 01/11/25 Date of admission: 01/06/25 22:00 Date of discharge: 01/11/25 Primary care physician: Mac Clarke MD Admitting clinician: Yomaira Ryan Attending physician on admission: Jim Durham Consults: 01/06/25 22:36 Consult to Wound Care Routine Reason for consultation: Worsening diabetic foot ulcers 01/10/25 12:21 Consult to General Surgery Routine Consulting Provider: [facility] General Surgeons Reason for consultation: diabetic foot ulcer, ?debridement Attending physician on discharge: [facility] Discharging clinician: Marlene Mcdonough DS: Diagnosis Discharge Diagnosis (1) Diabetic foot ulcer: Status: Acute (2) Cellulitis: Status: Acute (3) Diabetic infection of left foot: Status: Acute (4) Open wound: Status: Acute DS: Summary Hospital Course Hospital Course: HPI and admission: Chief Complaint: Left foot wounds Pt is a 64-year-old male with a PMH significant for PVD s/p right BKA 09/2023, insulin-dependent type 2 diabetes, hx of left ankle/foot osteomyelitis, left TMA, AFib not on anticoagulation, HTN, hepatitis-C s/p tx in 2009, and chronically wheelchair-bound who presents to the ED for evaluation of worsening left lower extremity wounds x1 week. Pt reports for the past week he has had increased swelling, erythema, and mostly cleared drainage from wounds on his left leg. Skin has been sloughing off, and now has a large wound on the bottom of his foot with foul-smelling discharge. Pt has apparently not followed up with wound care and been treating his leg with Vicks vapor rub. Reports pain is around baseline. Otherwise denies any systemic symptoms. No fever, chills. In the ED pt was hypertensive up to 162/70, vitals otherwise stable and WNL. Labs were significant for leukocytosis of 12.4 and ESR 101. Stable H&H. No significant electrolyte abnormalities. Renal and hepatic function WNL. Left lower extremity venous duplex negative for DVT. Pt was treated with vanc and Zosyn. Pt will be admitted to the hospital for treatment and further evaluation of left lower extremity cellulitis secondary to nonhealing diabetic foot ulcer. Hospital course Patient admitted to hospitalist service medical surg unit due to acute left lower extremity cellulitis. Initially elevated white blood cell count did normalize. There was no evidence of sepsis. Blood cultures x2 were negative. He was empirically treated with IV vancomycin and Zosyn which was transitioned to Augmentin. He was seen by the wound nurse recommending barrier cream and dressings with dural fiber AG covered with dry gauze and ABD pad and wrap every other day. He was also evaluated by General surgery who did not recommend inpatient debridement. He does have referral to wound care for further management as well as referral to [facility]NA for dressing changes. He remained afebrile throughout admission. Venous duplex checked in the ER was negative for DVT. Glucose levels remained stable while hospitalized managed with prandial insulin. He was continued on his Lantus as well as methadone. Continued on diltiazem and amitriptyline. He was discharged home with doxycycline 100 mg x 5 days. Status at Discharge Functional status at discharge: wheelchair bound Time Attestation Discharge Coordination Time (in mins): 40 Quality: Safe Use of Opioids Does Pt have an Active Cancer Diagnosis on the Problem List?: No Quality: Stroke Does the patient have a stroke diagnosis?: No Physical Exam Vital Signs: Vital Signs: Last Vital Signs Temp 96.9 F 01/11/25 07:07 Pulse 56 01/11/25 07:07 Resp 16 01/11/25 07:07 BP 162/58 H 01/11/25 07:07 Pulse Ox 100 01/11/25 07:07 O2 Del Method Room Air 01/11/25 07:07 BMI result Body Mass Index 32.0 DS: Data Data Completed and Pending Completed studies during hospitalization [Text1]: Procedures Detachment at Left 5th Toe, Complete, Open Approach (08/02/24) Detachment at Right Lower Leg, High, Open Approach (03/03/23) Excision of Left Foot Subcutaneous Tissue and Fascia, Open Approach (08/02/24) Excision of Left Lower Leg Skin, External Approach (10/29/24) Insertion of Infusion Device into Superior Vena Cava, Percutaneous Approach (06/21/24) Introduction of Anesthetic Agent into Peripheral Nerves and Plexi, Percutaneous Approach (08/02/24) Ultrasonography of Superior Vena Cava, Guidance (06/21/24) Labs on day of discharge: Laboratory Results - last 24 hr 01/10/25 01/10/25 01/10/25 11:20 16:01 19:16 Creatinine Estim Creat Clear Calc Estimated GFR POC Glucose 222 H 128 H 184 H 01/11/25 01/11/25 05:44 07:12 Creatinine 1.15 Estim Creat Clear Calc 83.1 Estimated GFR > 60 POC Glucose 161 H Preliminary micro results at discharge 01/06/25 15:34 Blood Culture - Preliminary Blood - Venous No growth after 48 hours. 01/06/25 15:34 Blood Culture - Preliminary Blood - Venous No growth after 48 hours. Discharge Plan Discharge Anticipated Discharge Date/Time: 01/11/25 12:56 Patient Disposition: Home Health Service Discharge Diagnosis: diabetic foot infection, cellulitis Referrals: [facility] W[facility] ([facility]) [Other] - 1 Week (you have an appt on Tuesday January 21, 2025 @ 1pm.) [facility] [Outside] - 1 Week Mac Clarke MD [Primary Care Provider] - 1 Week Discharge Medications: New doxycycline monohydrate 100 mg capsule 100 mg PO BID Qty: 10 0RF Continued (DME) Off loading shoe large See Rx Instructions .Route .MEDSUPPLY Qty: 1 0RF Rx Instructions: As directed (DME) Xeroform Petrolatum Dressing 1 X 8 bandage See Rx Instructions .ROUTE .MEDSUPPLY Qty: 200 0RF Rx Instructions: apply to foot wound daily (DME) adhesive tape 2 X 10 -yard tape See Rx Instructions .ROUTE .MEDSUPPLY Qty: 1 3RF Rx Instructions: apply to foot wound daily (DME) prosthetic Kit See Rx Instructions .Route Qty: 1 0RF Rx Instructions: As directed (DME) Bedside commode See Rx Instructions .Route .MEDSUPPLY Qty: 1 0RF Rx Instructions: As directed (DME) Shower Chair See Rx Instructions .Route .MEDSUPPLY Qty: 1 0RF Rx Instructions: As directed (DME) Walker See Rx Instructions .Route .MEDSUPPLY Qty: 1 0RF Rx Instructions: As directed amitriptyline 50 mg Tablet 50 mg PO BEDTIME PRN (Reason: Depression) methadone 10 mg/mL Concentrate 80 mg PO DAILY Rx Instructions: [facility] Wheel chair Kit See Rx Instructions .Route Qty: 1 0RF Rx Instructions: As directed insulin glargine [Lantus U-100 Insulin] 100 unit/mL solution 10 unit subcut DAILY diltiazem HCl 180 mg capsule,extended release 24hr 180 mg PO DAILY (DME) FreeStyle Lite Strips Strip See Rx Instructions Not Applicable TID Qty: 10 Rx Instructions: As directed (DME) insulin syringe-needle U-100 [BD Insulin Syringe Ultra-Fine] 1 mL 31 gauge x 5/16 syringe See Rx Instructions .ROUTE DAILY Qty: 10 Rx Instructions: As directed (DME) Band-Aid Rolled Gauze 4 X 2.5 -yard bandage See Rx Instructions .ROUTE .MEDSUPPLY Qty: 30 3RF Rx Instructions: apply to foot wound daily (DME) Band-Aid Gauze Pads 3 X 3 bandage See Rx Instructions .ROUTE .MEDSUPPLY Qty: 25 3RF Rx Instructions: apply to foot wound daily Discharge Orders: Discharge Order (Routine); Ordered 01/11/25 Ordered By: Marlene Mcdonough Diet: Diabetic diet Activity on Discharge: As tolerated Stand Alone Forms: Patient Portal Discharge page Print Language: Finnish Activity Restrictions/Additional Instructions: Topical Wound Care Recommendations: Left Plantar Foot and Left Lower Leg - Elevate lower legs - Off Load Pressure and limit ambulating on foot. Cleanse with saline, pat dry. ?Apply barrier cream to wound bed. Cover and pack wound bed with Durafiber AG, Cover with Dry gauze, ABD pad and wrap. Patient prefers sabine wrap to follow as it keeps the dressing in place per his statement. Change every other day. Recommend follow up out patient Wound Clinic at [address] [place] [address] and to call for an appointment at time of discharge. [phone].? Recommend VNA services for home dressing care. Care Plan Goals: Follow up with wound care and VNA for dressing changes Continue antibiotics as prescribe: doxycycline 100mg twice daily x 10 doses Health Concerns: Type 2 diabetes with diabetic foot infection Cellulitis Plan of Treatment: Continue antibiotics as prescribed Follow up with wound care and VNA Optimize glucose control. Follow up with pcp for ongoing diabetes management Assessment: See above. See discharge summary Discharge Date/Time: 01/11/25 16:41
--- NOTE | 2025-01-11 08:41 | PM.CNGS ---
History of Present Illness Consult details Consult date: 01/11/25 Requesting physician: Marlene Mcdonough Narrative: 64-year-old male patient well known to the surgical service with previous bilateral transmetatarsal amputations followed by right below-knee amputation. Patient now has extensive ulceration involving the left foot and fenton. Patient is admitted to the hospitalist service for IV antibiotics and local wound care. He was noted to have a large wound with slough located on the plantar surface of the left foot. He is being evaluated by the wound care nurses well. He was previously referred to the [facility]. Review of Systems Review of Systems: Yes Unobtainable due to mental condition [facility] Past Medical History Medical History Group A streptococcal infection Open wound Hx of hepatitis Diabetic ulcer of right foot Atrial fibrillation Hypertension Diabetes Family History Family History Father History of lung cancer Mother History of diabetes mellitus Surgical History Surgical History Hx of surgical procedure (~08/06/24) 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 History of transmetatarsal amputation of foot (~09/2016) History of amputation of toe (~08/18/14) History of amputation of toe (~10/21/13) History of lipoma Social History Social History Household Members: Children Household Members Other:: mother Housing: Other Housing Other:: hotel (homeless) Are you a primary child care associate teacher to a significant other at home: No Do you presently have visiting nurse or other home services: No Unable to assess alcohol history related to: Unknown Alcohol intake: never Comment: educated on alarms for safety Patient Tobacco Use Status: Current everyday Tobacco user Tobacco use type: Cigarette Cigarettes Per Day: 6 Years Smoked: 49 Second Hand Smoke Exposure: No Substance Use Type: Crack/Cocaine Advance Directives Date on File: 04/28/24 service: No Meds Allergies Allergy/AdvReac Type Severity Reaction Status Date / Time furosemide [Lasix] Allergy Intermediate Hives Verified 01/06/25 15:09 levofloxacin [Levaquin] Allergy Unknown Gastrointestinal Verified 01/06/25 15:09 Upset metronidazole [Flagyl] Allergy Unknown Unknown Verified 01/06/25 15:09 latex Allergy Rash Verified 01/06/25 15:09 contrast dye Allergy Unknown rash, hives Uncoded 10/29/24 14:29 Active Medications: Current Medications Acetaminophen (Acetaminophen 325 Mg Tablet) 650 mg PO Q6H PRN PRN Reason: Pain, Mild 1-3,fever,headache Last Admin: 01/11/25 04:15 Dose: 650 mg Amitriptyline HCl (Amitriptyline Hcl 50 Mg Tablet) 50 mg PO BEDTIME PRN PRN Reason: Depression Amoxicillin/Clavulanate Potassium (Amoxicillin/Potassium Clav 875 Mg Tablet) 875 mg PO Q12H [place]ETTE Last Admin: 01/11/25 08:00 Dose: 875 mg Calcium Carbonate (Calcium Carbonate 750 Mg Tab.Chew) 750 mg PO Q4H PRN PRN Reason: Heartburn Dextrose (Dextrose 50 % 25 Gm/50 Ml Syringe) 25 gm IVPUSH Q15M PRN; Protocol PRN Reason: per Hypoglycemia Standing Ord. Diltiazem HCl (Diltiazem Hcl Cd 180 Mg Cap.Er.24h) 180 mg PO DAILY [facility]; Protocol Last Admin: 01/11/25 08:00 Dose: 180 mg Enoxaparin Sodium (Enoxaparin Sodium 40 Mg/0.4 Ml Syringe) 40 mg SUBCUT Q24H [facility] Last Admin: 01/10/25 21:58 Dose: 40 mg Glucose (Glucose Gel 15 Gm Gel..Gram.) 15 gm PO Q15M PRN; Protocol PRN Reason: per Hypoglycemia Standing Ord. Insulin Glargine (Insulin Glargine,Hum.Rec.Anlog 100 Unit/Ml 10 Ml Vial) 10 unit SUBCUT DAILY [facility] Last Admin: 01/11/25 08:00 Dose: 10 unit Insulin Human Lispro (Insulin Lispro 100 Unit/Ml 3 Ml Vial) 0 unit SUBCUT QIDACHS [facility]; Protocol Last Admin: 01/11/25 08:00 Dose: 2 unit Losartan Potassium (Losartan Potassium 50 Mg Tablet) 50 mg PO DAILY [facility]; Protocol Last Admin: 01/11/25 08:00 Dose: 50 mg Magnesium Hydroxide (Milk Of Magnesia 30 Ml Oral.Susp) 30 ml PO DAILY PRN PRN Reason: Constipation Melatonin (Melatonin 3 Mg Tablet) 6 mg PO BEDTIME PRN PRN Reason: Insomnia Methadone HCl (Methadone Hcl 20 Mg/2 Ml Oral.Conc) 80 mg PO DAILY [facility] Last Admin: 01/11/25 08:01 Dose: 80 mg Ondansetron HCl (Ondansetron Hcl 4 Mg/2 Ml Vial) 4 mg IVPUSH Q8H PRN PRN Reason: Nausea and Vomiting Sodium Chloride (0.9 % Sodium Chloride Flush 3 Ml Syringe) 3 ml IVFLUSH QSHIFT [facility] Last Admin: 01/11/25 08:01 Dose: 3 ml Home Medications ?Medication ?Instructions ?Recorded ?Confirmed ?Last Taken ?Type amitriptyline 50 mg tablet 50 mg PO BEDTIME PRN Depression 12/09/20 01/07/25 06/20/24 History blood sugar diagnostic (FreeStyle #10 ea 03/08/22 06/21/24 Unknown History Lite Strips) insulin syringe-needle U-100 1 mL #10 ea 03/08/22 10/28/23 Unknown History 31 gauge x 5/16 (BD Insulin Syringe Ultra-Fine) methadone 10 mg/mL oral concentrate 80 mg PO DAILY 04/10/24 01/08/25 10/29/24 History insulin glargine 100 unit/mL 10 unit subcut DAILY 10/30/24 01/07/25 01/06/25 History subcutaneous solution (Lantus U-100 Insulin) diltiazem HCl 180 mg 180 mg PO DAILY 01/07/25 01/07/25 01/06/25 History capsule,extended release 24 hr Physical Exam Vital Signs: Vital Signs: Last Vital Signs Temp 96.9 F 01/11/25 07:07 Pulse 56 01/11/25 07:07 Resp 16 01/11/25 07:07 BP 162/58 H 01/11/25 07:07 Pulse Ox 100 01/11/25 07:07 O2 Del Method Room Air 01/11/25 07:07 BMI result Body Mass Index 32.0 Const: General: anxious and tired appearing Nutritional Appearance: average body habitus Limitations: other limitations (Right BKA) HEENT: Head: Yes normocephalic and Yes atraumatic Resp: Effort & Inspection: normal respiratory effort Extrem: Other: Right BKA wounds clean, dry, and intact without redness or discharge. Left fenton with multiple areas of ulceration covered by pink foam dressings. Clean dressing was applied to the left foot. Photos in the medical record show a granulated wound with no evidence of necrotic tissue. There is an overlying peel which may benefit from Santyl. Results Labs 01/07/25 03:54 01/11/25 05:44 Labs: Abnormal lab results 01/10/25 01/10/25 01/10/25 Range/Units 11:20 16:01 19:16 POC Glucose 222 H 128 H 184 H (60-115) mg/dL 01/11/25 Range/Units 07:12 POC Glucose 161 H (60-115) mg/dL BMP 01/11/25 05:44 Creatinine 1.15 All other labs normal. Assessment and Plan (1) Diabetic infection of left foot: Status: Acute Plan 64-year-old male patient well known to service with peripheral vascular disease due to diabetes mellitus, status post right BKA and left transmetatarsal amputation. He has a large open wound on the left foot. He is at high risk for limb loss of the left side as well. No surgical debridement is required at this time. Recommend continued local wound care with wound care nurse recommendations. Patient should follow-up with the Wound Care Center after discharge. Patient does not reliably follow up in the office. Procedures Date of Service Date of Service: 01/11/25
[2025-01-11 11:19] LABS: Glucose, Whole Blood 245 mg/dL (60-115)
--- NOTE | 2025-01-11 13:00 | W.MHC.F2F ---
Service Date Service Date: 01/11/25 Encounter Date of encounter: 01/11/25 Reasons for Services Signs and symptoms assessed: Diabetic foot infection with open wound to the anterior/lateral left lower leg and plantar surface left foot with cellulitis (treated on oral antibiotics now) Type 2 diabetes Reason for nursing home: wound care and diabetic teaching Homebound: Leaving the home is medically contraindicated at this time without the asist of a device and/or another person due th the listed conditions above and below. Reason homebound: unsteady gait / fall risk and poor balance / fall risk Homebound supporting statement: Dressing orders: Left Plantar Foot and Left Lower Leg - Elevate lower legs - Off Load Pressure and limit ambulating on foot. Cleanse with saline, pat dry. ?Apply barrier cream to wound bed. Cover and pack wound bed with Durafiber AG, Cover with Dry gauze, ABD pad and wrap. Patient prefers sabine wrap to follow as it keeps the dressing in place per his statement. Change every other day. Certification: Based on the above findings, I certify that this patient is confined to the home and needs intermittent nursing home care, physical therapy and/or speech therapy, or continues to need occupational therapy. The patient is under my care, and I have initiated the establishment of the plan of care. The patient will be followed by a physician who will periodically review the plan of care. Time Spent With Patient Time: Total time managing care of this patient today ____ minutes.
--- NOTE | 2025-01-11 14:02 | MHC.CM.PN ---
PT CLEARED TO DC HOME TODAY WITH [facility]UMPTION OF [facility] FOLLOW UP CM CALLED THE WOUND CARE CLINIC AND SCHEDULED PT AN APPT FOR JANUARY 21, 2025 AT 1300 CM CALLED [facility] [phone] AND INFORMED THEM OF DC, PER THEIR REQUEST, DCS AND F2F WERE FAXED TO THEM AT [phone] PT REPORTS HIS DAUGHTER WILL BE PROVIDING TRANSPORT, HOWEVER IS IN [place] SO WILL NEED SOME TIME
[2025-01-11 15:15] VITALS: BP 164/76; PULSE 67; RESP 18; TEMP 36.4; O2SAT 98
[2025-01-11 15:35] LABS: Glucose, Whole Blood 164 mg/dL (60-115)
== END 2025-01-11 16:41 | disposition home health service (06) | DRG 380 ==
LOC: HO.ED 22:11 → HO.EDOVER 22:20 → HO.S3 01-07 15:53
PROVIDERS: Hospitalist; Physician Assistant; Admitting Provider Student in an Organized Health Care Education/Training Program; Emergency Provider Emergency Medicine; PCP Internal Medicine; Visit Provider Physician Assistant
DX: E11.621 Type 2 diabetes mellitus with foot ulcer (principal); L97.525 Non-pressure chronic ulcer of other part of left foot with muscle involvement without evidence of necrosis; E11.51 Type 2 diabetes mellitus with diabetic peripheral angiopathy without gangrene; L03.116 Cellulitis of left lower limb; D64.9 Anemia, unspecified; E11.628 Type 2 diabetes mellitus with other skin complications; F11.20 Opioid dependence, uncomplicated; F17.210 Nicotine dependence, cigarettes, uncomplicated; F39 Unspecified mood [affective] disorder; I48.0 Paroxysmal atrial fibrillation; Z89.511 Acquired absence of right leg below knee; Z99.3 Dependence on wheelchair; Z71.6 Tobacco abuse counseling; Z79.4 Long term (current) use of insulin; Z79.899 Other long term (current) drug therapy
CPT/HCPCS: 36415; 80048; 80053; 80202; 82550; 82565; 82947; 83605; 83690; 85025; 85652; 87040; 93971; 99221; 99285; J1650; J1885; J2543; J3370; J3371

== ENCOUNTER → 2025-01-06 15:09 | Outpatient (BNV) | payer OTHER, SELFPAY | PROVIDERS: Visit Provider Radiology Diagnostic Radiology | DX: M79.662 Pain in left lower leg (principal) | CPT/HCPCS: 93971 ==

== ENCOUNTER → 2025-01-06 22:00 | Outpatient (BNV) | payer OTHER, SELFPAY | PROVIDERS: Admitting Provider Student in an Organized Health Care Education/Training Program; Emergency Provider Emergency Medicine; PCP Internal Medicine; Visit Provider Surgery | DX: E11.628 Type 2 diabetes mellitus with other skin complications (principal); L08.9 Local infection of the skin and subcutaneous tissue, unspecified | CPT/HCPCS: 99222 ==

== ENCOUNTER → 2025-01-06 22:00 | Outpatient (BNV) | payer OTHER, SELFPAY | PROVIDERS: Admitting Provider Student in an Organized Health Care Education/Training Program; Emergency Provider Emergency Medicine; Visit Provider Student in an Organized Health Care Education/Training Program | DX: E11.621 Type 2 diabetes mellitus with foot ulcer (principal); L97.525 Non-pressure chronic ulcer of other part of left foot with muscle involvement without evidence of necrosis; L03.116 Cellulitis of left lower limb | CPT/HCPCS: 99223; 99233 ==

== ENCOUNTER 2025-05-14 22:42 | Inpatient (IN) | payer OTHER, SELFPAY ==
--- NOTE | ~2025-05-14 | XR_ITS ---
CLINICAL HISTORY: bone erosion 3 views left foot Comparison: CR/SR - XR FOOT LT 2V - 10/29/24 15:17 EST Findings: Patient is status post transmetatarsal amputation. The 5th metatarsal has been completely resected. There is a wound in the anterolateral stump. There is interval erosion of the distal portion of the 4th metatarsal stump and periosteal reaction of the remaining 4th metatarsal stump consistent with osteomyelitis. There is no evidence of an acute fracture. Joint alignment is normal. There is mild arterial calcification. Impression: Findings consistent with osteomyelitis of the 4th metatarsal stump. This document has been electronically signed by: Anthony Key MD on 05/15/2025 01:23:56
--- NOTE | ~2025-05-14 | CT_ITS ---
CLINICAL HISTORY: Acute shortness of breath CT angiography chest with contrast. 3D Postprocessing. Comparison: CR - XR CHEST 1V - 05/15/25 00:26 EDT Findings: There is no pulmonary embolism. There is mild cardiomegaly. There is no pericardial effusion. Thoracic aorta is within normal limits in diameter. There are no enlarged lymph nodes. There is a minimal right pleural effusion and trace left pleural effusion. There is diffuse bilateral interlobular septal line thickening. There is bilateral consolidation and ground-glass opacity somewhat confluent in the lower lobes and patchy in the remainder of the lungs. Trachea and central bronchi are widely patent. There is no fracture or suspicious lytic or sclerotic lesion. Limited images of the upper abdomen demonstrate no acute findings. IMPRESSION: 1. No pulmonary embolism. 2. Bilateral interlobular septal line thickening and airspace opacities favored to be pulmonary edema. Pneumonia is less likely. 3. Minimal right pleural effusion and trace left pleural effusion. 4. Mild cardiomegaly. This document has been electronically signed by: Anthony Key MD on 05/15/2025 03:50:58
--- NOTE | ~2025-05-14 | XR_ITS ---
CLINICAL HISTORY: sob 1 view chest x-ray. Comparison: CR/SR - XR CHEST 1V - 10/29/24 15:46 EST Findings: There are airspace opacities in the mid to lower lungs. No definite effusion is seen. Apparent mild enlargement of the cardiac silhouette is stable. IMPRESSION: Airspace opacities in the mid to lower lungs suggestive of edema or pneumonia. This document has been electronically signed by: Anthony Key MD on 05/15/2025 01:17:57
[2025-05-14 22:48] VITALS: BP 168/80; PULSE 115; RESP 25; TEMP 36.9; O2SAT 93; BMI 28.1
--- NOTE | 2025-05-14 22:55 | ED.SKABFB ---
HPI - Skin/Abscess/Foreign Bdy General Chief complaint: Extremity Injury, Lower Stated complaint: possible fever left leg infected/ puss coming out Time Seen by Provider: 05/14/25 22:52 Source: patient Mode of arrival: wheelchair Limitations: no limitations History of Present Illness ED Provider: HPI narrative: Patient is diabetic , PVD status post right BKA 10/03, left TMA, AFib not on anticoagulation, hypertension, hepatitis-C comes here for nonhealing wound on the left foot for last few weeks apparently patient could not follow up with wound clinic for last 3 weeks and for last few days noticed a wound is getting worse with pus coming out had fever 2 days ago also Related Data Home Medications ?Medication ?Instructions ?Recorded ?Confirmed amitriptyline 50 mg tablet 50 mg PO BEDTIME PRN Depression 12/09/20 01/07/25 blood sugar diagnostic (FreeStyle #10 ea 03/08/22 06/21/24 Lite Strips) insulin syringe-needle U-100 1 mL #10 ea 03/08/22 10/28/23 31 gauge x 5/16 (BD Insulin Syringe Ultra-Fine) methadone 10 mg/mL oral concentrate 80 mg PO DAILY 04/10/24 01/08/25 insulin glargine 100 unit/mL 10 unit subcut DAILY 10/30/24 01/07/25 subcutaneous solution (Lantus U-100 Insulin) diltiazem HCl 180 mg 180 mg PO DAILY 01/07/25 01/07/25 capsule,extended release 24 hr Previous Rx's ?Medication ?Instructions ?Recorded Off loading shoe #1 ea 12/28/20 bismuth tribrom-petrolatum,wh 1 X #200 ea 02/21/21 8 bandage (Xeroform Petrolatum Dressing) adhesive tape 2 X 10 yard #1 ea 06/16/21 prosthetics (prosthetic) #1 ea 06/16/21 chair, wheel (Wheel chair) #1 ea 03/12/23 Bedside commode #1 ea 04/18/23 Shower Chair #1 ea 04/18/23 Walker #1 ea 05/06/23 gauze bandage 3 X 3 (Band-Aid #25 ea 09/24/23 Gauze Pads) gauze bandage 4 X 2.5 yard #30 ea 09/24/23 (Band-Aid Rolled Gauze) doxycycline monohydrate 100 mg 100 mg PO BID #10 caps 01/08/25 capsule Allergies Allergy/AdvReac Type Severity Reaction Status Date / Time furosemide (Lasix) Allergy Intermediate Hives Verified 05/14/25 22:56 levofloxacin (Levaquin) Allergy Unknown Gastrointestinal Verified 05/14/25 22:56 Upset metronidazole (Flagyl) Allergy Unknown Unknown Verified 05/14/25 22:56 latex Allergy Rash Verified 05/14/25 22:56 contrast dye Allergy Unknown rash, hives Uncoded 05/14/25 22:56 Review of Systems Review of Systems: Yes all other systems are reviewed and are negative PMFSH Past Medical History Medical History Group A streptococcal infection Open wound Hx of hepatitis Diabetic ulcer of right foot Atrial fibrillation Hypertension Diabetes Surgical History Hx of surgical procedure (~08/06/24) 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 History of transmetatarsal amputation of foot (~09/2016) History of amputation of toe (~08/18/14) History of amputation of toe (~10/21/13) History of lipoma Family History Family History Father History of lung cancer Mother History of diabetes mellitus Social History Social History Household Members: Children Household Members Other:: mother Housing: Other Housing Other:: hotel (homeless) Are you a primary customer care assistant to a significant other at home: No Do you presently have visiting nurse or other home services: No Unable to assess alcohol history related to: Unknown Alcohol intake: never Comment: educated on alarms for safety Patient Tobacco Use Status: Current everyday Tobacco user Tobacco use type: Cigarette Cigarettes Per Day: 6 Years Smoked: 49 Smoked in Last 30 Days: Yes Second Hand Smoke Exposure: No Use of substances other than those prescribed or required for medical reasons: No Substance Use Type: Crack/Cocaine Advance Directives: Yes Advance Directives on File: Yes Advance Directives Date on File: 04/28/24 Do you have a plan to hurt others: No Plan service: No Physical Exam Vital Signs: Vital Signs: Last Vital Signs Temp 101.0 F H 05/15/25 00:13 Pulse 93 05/15/25 01:27 Resp 16 05/15/25 01:27 BP 131/71 05/15/25 01:27 Pulse Ox 94 05/15/25 01:27 O2 Del Method Oxymask 05/15/25 01:27 O2 Flow Rate 5 05/15/25 01:27 BMI result Body Mass Index 28.1 Appearance: Alert. Oriented X3. No acute distress. Eyes: PERRLA, Pallor+ ENT: Pharynx normal. Oral Mucosa moist Neck: Normal inspection. Neck supple. CVS: Normal heart rate and rhythm. Pulses normal. Respiratory: No respiratory distress. Equal air entry bilateral, no wheezing/rales/rhonchi Abdomen: Soft and nontender. Bowel sounds are present, no mass palpable, no CVA tenderness Skin: Skin warm and dry. Normal skin color. Normal skin turgor. Extremities: Right BKA. No calf tenderness left TMA with large ulcer at the sole deep to the bone with pus discharge and warmth all the way to the left fenton Neuro: Oriented X 3. No motor deficit. No sensory deficit.No cerebellar signs , cranial nerves II-XII intact Medications Administered Generic Name Dose Route Start Last Admin Trade Name Freq PRN Reason Stop Dose Admin Enoxaparin Sodium 40 mg 05/15/25 00:30 05/15/25 01:00 Enoxaparin Sodium 40 Mg/0.4 Ml Syringe SUBCUT 40 mg BEDTIME LYNNETTE Administration Lactated Ringer's 1,000 mls @ 100 mls/hr 05/15/25 00:30 05/15/25 00:58 Lr IVCONT 100 mls/hr .Q10H LYNNETTE Administration Discontinued Medications Generic Name Dose Route Start Last Admin Trade Name Freq PRN Reason Stop Dose Admin Acetaminophen 650 mg 05/14/25 23:31 05/14/25 23:44 Acetaminophen 325 Mg Tablet PO 05/14/25 23:32 650 mg ONCE ONE Administration Albuterol/Ipratropium 3 ml 05/15/25 00:47 05/15/25 00:49 Albuterol/Iprat 2.5/0.5mg 3 Ml Ampul.Neb INHALE 05/15/25 00:48 3 ml ONCE ONE Administration Sodium Chloride 1,000 mls @ 999 mls/hr 05/14/25 22:58 05/15/25 00:30 Ns IV 05/14/25 23:58 Infused .Q1H1M ONE Infusion Vancomycin HCl 2,000 mg in 500 mls @ 250 mls/hr 05/14/25 23:06 05/14/25 23:57 Vancomycin/Ns IV 05/15/25 01:05 250 mls/hr ONCE ONE Administration Piperacillin Sod/Tazobactam 50 mls @ 100 mls/hr 05/14/25 23:06 05/14/25 23:53 Sod 3.375 gm/ Sodium Chloride IV 05/14/25 23:35 Infused ONCE ONE Infusion Ibuprofen 600 mg 05/15/25 00:22 05/15/25 00:59 Ibuprofen 600 Mg Tablet PO 05/15/25 00:23 600 mg ONCE ONE Administration Medical Decision Making Medical Decision Making [facility] Narrative: Patient is diabetic with peripheral vascular disease with nonhealing wound of the left sole with exposure of the bone clinically has osteomyelitis needs IV antibiotics and amputation will admit patient to hospitalist service for further evaluation 0040 patient noted to be hypoxic saturating 84% on 2 L per on OxyMask saturating 90% now will do venous gases CTA chest to rule out PE although patient's INR is 1.6 chest x-ray showed bilateral patchy infiltrates patient has received nebulizing treatments saturating 97% on nebulizer and 95% on 5 L saturating 93% Differential Diagnosis Differential Diagnoses: The differential diagnosis associated with the presentation includes Nonhealing wounds/diabetic foot/osteomyelitis Admission/Observation Consideration of admission/observation: Escalation of care including admission/observation considered Consult Healthcare Provider Management of the patient was discussed with: Hospitalist Lab Data [facility] Lab Attestation statement: I reviewed the patient's lab results. 05/14/25 23:11 05/14/25 23:11 Labs: Lab Results 05/14/25 05/14/25 Range/Units 23:08 23:11 WBC 16.5 H (4.8-10.8) X10*3/uL RBC 3.49 L (4.60-5.80) X10*6/uL Hgb 8.6 L (14.0-18.0) g/dl Hct 26.9 L (42.0-52.0) % MCV 77.1 L (80.0-98.0) fL MCH 24.6 L (27.0-33.0) pg MCHC 32.0 (31.0-36.0) g/dl RDW 14.1 (11.0-16.0) % Plt Count 430 H (160-400) X10*3/uL MPV 9.6 (9.4-12.4) fL Immature Gran % (Auto) 0.6 H (0.0-0.4) % Neut % (Auto) 85.8 H (45-73) % Lymph % (Auto) 6.7 L (20-40) % [place] % (Auto) 5.5 (2-11) % Eos % (Auto) 1.0 (0-4) % Baso % (Auto) 0.4 (0-2) % Lymph # (Auto) 1.1 L (1.2-4.9) X10*3/uL [place] # (Auto) 0.9 (0.1-1.2) X10*3/uL Eos # (Auto) 0.2 (0.0-0.4) X10*3/uL Baso # (Auto) 0.1 (0.0-0.2) X10*3/uL Abs Immat Gran (auto) 0.10 H (0.00-0.03) X10*3/uL Absolute Neuts (auto) 14.2 H (2.0-8.3) x10*3/uL Absolute Nucleated RBC 0.000 (0.0-0.012) X10*3/uL Nucleated RBC % (auto) 0.0 (0.0-0.2) /100WBC PT 18.3 H (10.9-12.4) SEC INR 1.6 H (0.9-1.1) APTT 35.4 (26.0-36.8) SEC Sodium 137 (135-145) mmol/L Potassium 4.3 (3.3-5.1) mmol/L Chloride 101 (96-108) mmol/L Carbon Dioxide 25 (22-29) mmol/L Anion Gap 15 (12-20) BUN 22 H (9-16) mg/dL Creatinine 1.32 (0.5-1.4) mg/dL Estim Creat Clear Calc 78.1 Estimated GFR 55 Random Glucose 259 H (60-115) mg/dL Lactic Acid 1.9 (0.5-2.0) mmol/L Calcium 8.3 L D (8.4-10.2) mg/dL Total Bilirubin 0.3 (0.0-1.0) mg/dL AST 20 (5-37) U/L ALT < 6 (0-40) U/L Alkaline Phosphatase 81 (39-117) U/L Total Protein 8.1 H (6.5-8.0) g/dL Albumin 2.9 L (3.5-5.0) g/dL Independent Interpretation I performed an independent interpretation of an: EKG and Plain X-Ray Interpretation: Normal sinus rhythm heart rate 102 beats per minute normal interval normal axis no acute ST-T no acute ischemia poor progression of R-wave Radiology Impression Discussion of test interpretation with radiology: I have reviewed the radiologist's reading. Radiologist Impression: Comparison: CR/SR - XR CHEST 1V - 10/29/24 15:46 EST Findings: There are airspace opacities in the mid to lower lungs. No definite effusion is seen. Apparent mild enlargement of the cardiac silhouette is stable. IMPRESSION: Airspace opacities in the mid to lower lungs suggestive of edema or pneumonia. CLINICAL HISTORY: bone erosion 3 views left foot Comparison: CR/SR - XR FOOT LT 2V - 10/29/24 15:17 EST Findings: Patient is status post transmetatarsal amputation. The 5th metatarsal has been completely resected. There is a wound in the anterolateral stump. There is interval erosion of the distal portion of the 4th metatarsal stump and periosteal reaction of the remaining 4th metatarsal stump consistent with osteomyelitis. There is no evidence of an acute fracture. Joint alignment is normal. There is mild arterial calcification. Impression: Findings consistent with osteomyelitis of the 4th metatarsal stump. This document has been electronically signed by: Anthony Key MD on 05/15/2025 01:23:56 Critical Care Time Critical Care Time Critical Care Time: Yes Total Critical Care Time: 55 Attestation: Time is exclusive of separately billable procedures. Time includes: direct patient care, patient reassessment, coordination of patient care, interpretation of data (laboratory data, pulse oximetry, arterial blood gases and chest xrays), review of patient's medical records, medical consultation and documentation of patient care. Procedures excluded from critical care time: central intravenous line placement and electrocardiography. Discharge Plan Discharge Clinical Impression: Diabetic infection of left foot, Bilateral pneumonia, Hypoxia, Acute osteomyelitis of left foot Patient Disposition: Admitted As Inpatient
[2025-05-14 23:22] LABS: MANUAL DIFF FLAG NO
[2025-05-14 23:23] LABS: Hematocrit 26.9 % (42.0-52.0); Hemoglobin 8.6 g/dl (14.0-18.0); Imm Gran Abs Auto 0.10 X10*3/uL (0.00-0.03); Imm Gran Pct Auto 0.6 % (0.0-0.4); Lymphocytes Absolute Auto 1.1 X10*3/uL (1.2-4.9); Mean Corpuscular HGB Conc 32.0 g/dl (31.0-36.0); Mean Corpuscular Hemoglobin 24.6 pg (27.0-33.0); Mean Corpuscular Volume 77.1 fL (80.0-98.0); NRBC Abs Auto 0.000 X10*3/uL (0.0-0.012); NRBC Pct Auto 0.0 /100WBC (0.0-0.2); Platelet Count 430 X10*3/uL (160-400); Red Blood Count 3.49 X10*6/uL (4.60-5.80); White Blood Count 16.5 X10*3/uL (4.8-10.8)
[2025-05-14 23:24] VITALS: BP 145/65; PULSE 93; RESP 20; TEMP 37.4; O2SAT 88
--- NOTE | 2025-05-14 23:31 | PC.NURSE ---
pt placed on 2L NC, 87% on RA, pt oral temp 99.4, feels warmer, pt refusing rectal temp at this time. MD deluna
[2025-05-14 23:37] LABS: Alanine Aminotransferase < 6 U/L (0-40); Albumin Level 2.9 g/dL (3.5-5.0); Alkaline Phosphatase 81 U/L (39-117); Anion Gap 15 (12-20); Aspartate Amino Transferase 20 U/L (5-37); Blood Urea Nitrogen 22 mg/dL (9-16); Calcium 8.3 mg/dL (8.4-10.2); Carbon Dioxide 25 mmol/L (22-29); Chloride 101 mmol/L (96-108); Creatinine Clr Calc Pharmacy 78.1; Estimated Glomerular Filt Rate 55; INTERNATIONAL NORM RATIO 1.6 (0.9-1.1); Potassium 4.3 mmol/L (3.3-5.1); Prothrombin Time 18.3 SEC (10.9-12.4); Sodium 137 mmol/L (135-145); Total Protein 8.1 g/dL (6.5-8.0)
[2025-05-14 23:40] LABS: Partial Thromboplastin Time 35.4 SEC (26.0-36.8)
[2025-05-14] MEDS: vancomycin/NS 2,000 MG/500 ML PLAST..BAG 250 MG IV (23:57)
[2025-05-15] VITALS (18 sets, daily range): BP systolic 122–181; BP diastolic 42–86; PULSE 57–109; RESP 16–24; TEMP 36.3–38.3; O2SAT 85–100; BMI 24.1
--- NOTE | 2025-05-15 00:27 | PM.IMHP ---
History of Present Illness Date of Service: 05/15/25 Chief Complaint: Left leg pain redness and swelling 64-year-old male with a past medical history of HTN, HLD, dm, right BKA, chronic diabetic left foot ulcer, history of left TMA, AFib-not on anticoagulation presented to the hospital today with a chief complaint of left foot pain redness and swelling. Patient mentioned for the past 3 days he has been having increased pain redness and swelling over the left leg and left foot ulcer. Denies any discharge. Reports subjective fevers. Patient denies any chest pain or palpitations. Denies any cough or sputum production. Denies any shortness of breath or dyspnea on exertion. Denies any urinary symptoms. Review of all other systems is negative except mentioned above ER course: Per ER team, patient noted to have chronic left foot wound with surrounding erythema extending onto the proximal 3rd of the leg and smaller so some noted on the distal part of the leg; ulcer extending up to the bones; concerning for acute osteomyelitis. X-rays consistent with 4th metatarsal stump osteomyelitis. While in the ER patient became acutely hypoxic requiring Oxymizer and subsequently transitioned down to nasal cannula at 5 L; patient denied any cough or sputum production. Chest x-ray showed bilateral opacities. CT chest showed no evidence of PE but noted to have findings consistent with pulmonary edema and small pleural effusion. [facility] Medical History Group A streptococcal infection Open wound Hx of hepatitis Diabetic ulcer of right foot Atrial fibrillation Hypertension Diabetes Family History Father History of lung cancer Mother History of diabetes mellitus Surgical History Hx of surgical procedure (~08/06/24) 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 History of transmetatarsal amputation of foot (~09/2016) History of amputation of toe (~08/18/14) History of amputation of toe (~10/21/13) History of lipoma Social History Household Members: None Household Members Other:: mother Housing: Apartment Housing Other:: hotel (homeless) Are you a primary nonfarm animal caretaker to a significant other at home: No Do you presently have visiting nurse or other home services: No Unable to assess alcohol history related to: Unknown Alcohol intake: never Comment: educated on alarms for safety Patient Tobacco Use Status: Current someday Tobacco user Tobacco use type: Cigarette Cigarettes Per Day: 50 Years Smoked: 49 Smoked in Last 30 Days: Yes Patient Interested in Nicotine Replacement: Yes Patient Given Instructions on How to Stop Smoking: Yes Date Education Initiated: 05/15/25 Second Hand Smoke Exposure: No Use of substances other than those prescribed or required for medical reasons: No Substance Use Type: Crack/Cocaine Have you been hit, kicked, punched, or otherwise hurt by someone within the past year? If so, by whom?: No Do you feel safe in your current relationship?: No Current Relationship Is there a partner from a previous relationship who is making you feel unsafe now?: No Are you made to feel afraid or neglected: No Advance Directives: Yes Advance Directives Information Provided: No Advance Directives on File: Yes Advance Directives Date on File: 04/28/24 Do you have a plan to hurt others: No Plan Recently lost weight without trying: No Eating poorly because of decreased appetite: No Nutrition Risks: No Nutritional Risk Poor oral hygiene: No service: No Meds Allergies Allergy/AdvReac Type Severity Reaction Status Date / Time furosemide (Lasix) Allergy Intermediate Hives Verified 05/14/25 22:56 levofloxacin (Levaquin) Allergy Unknown Gastrointestinal Verified 05/14/25 22:56 Upset metronidazole (Flagyl) Allergy Unknown Unknown Verified 05/14/25 22:56 latex Allergy Rash Verified 05/14/25 22:56 contrast dye Allergy Unknown rash, hives Uncoded 05/14/25 22:56 Active Medications: Current Medications Acetaminophen (Acetaminophen 325 Mg Tablet) 650 mg PO Q6H PRN PRN Reason: Pain, Mild 1-3,fever,headache Calcium Carbonate (Calcium Carbonate 750 Mg Tab.Chew) 750 mg PO Q4H PRN PRN Reason: Heartburn Enoxaparin Sodium (Enoxaparin Sodium 40 Mg/0.4 Ml Syringe) 40 mg SUBCUT Q24H LYNNETTE Glucose (Glucose Gel 15 Gm Gel..Gram.) 15 gm PO Q15M PRN; Protocol PRN Reason: per Hypoglycemia Standing Ord. Hydromorphone HCl (Hydromorphone Hcl 1 Mg/Ml Syringe) 0.5 mg IVPUSH Q4H PRN; Protocol PRN Reason: Pain, Severe (Pain Scale 7-10) Vancomycin HCl (Vancomycin/Ns) 2,000 mg in 500 mls @ 250 mls/hr IV ONCE ONE Stop: 05/15/25 01:05 Last Admin: 05/14/25 23:57 Dose: 250 mls/hr Lactated Ringer's (Lr) 1,000 mls @ 100 mls/hr IVCONT .Q10H LYNNETTE Magnesium Hydroxide (Milk Of Magnesia 30 Ml Oral.Susp) 30 ml PO DAILY PRN PRN Reason: Constipation Melatonin (Melatonin 3 Mg Tablet) 6 mg PO BEDTIME PRN PRN Reason: Insomnia Pharmacy Consult (Consult Rx Vancomycin Dosing) 1 each MISCELLANE DAILY PRN PRN Reason: Consult order Polyethylene Glycol (Polyethylene Glycol 3350 17 Gm Powd.Pack) 17 gm PO DAILY PRN PRN Reason: Constipation Sodium Chloride (0.9 % Sodium Chloride Flush 3 Ml Syringe) 3 ml IVFLUSH QSHIFT [facility] Home Medications ?Medication ?Instructions ?Recorded ?Confirmed ?Last Taken ?Type amitriptyline 50 mg tablet 50 mg PO BEDTIME PRN Depression 12/09/20 01/07/25 06/20/24 History blood sugar diagnostic (FreeStyle #10 ea 03/08/22 06/21/24 Unknown History Lite Strips) insulin syringe-needle U-100 1 mL #10 ea 03/08/22 10/28/23 Unknown History 31 gauge x 5/16 (BD Insulin Syringe Ultra-Fine) methadone 10 mg/mL oral concentrate 80 mg PO DAILY 04/10/24 01/08/25 10/29/24 History insulin glargine 100 unit/mL 10 unit subcut DAILY 10/30/24 01/07/25 01/06/25 History subcutaneous solution (Lantus U-100 Insulin) diltiazem HCl 180 mg 180 mg PO DAILY 01/07/25 01/07/25 01/06/25 History capsule,extended release 24 hr Physical Exam Vital Signs and Narrative: Vital Signs: Last Vital Signs Temp 101.0 F H 05/15/25 00:13 Pulse 88 05/15/25 00:13 Resp 16 05/15/25 00:13 BP 153/72 H 05/15/25 00:13 Pulse Ox 96 05/15/25 00:13 O2 Del Method Room Air 05/15/25 00:13 BMI result Body Mass Index 28.1 Gen: Appears be in no acute distress HEENT: NCAT, Moist mucosa. Pulmonary: Coarse breath sounds CVS: Normal S1-S2 Abdomen: BS+, Soft, Nontender Extremities: Warm well perfused; left foot stump ulcer extending up to the bones; redness extending up to the proximal 3rd of the leg. No discharge. Neuro: Alert and awake. Results Labs 05/14/25 23:11 05/14/25 23:11 Labs: Laboratory Results - last 24 hr 05/14/25 05/14/25 23:08 23:11 MCV 77.1 L MCH 24.6 L MCHC 32.0 RDW 14.1 Plt Count 430 H MPV 9.6 Immature Gran % (Auto) 0.6 H Neut % (Auto) 85.8 H Lymph % (Auto) 6.7 L [place] % (Auto) 5.5 Eos % (Auto) 1.0 Baso % (Auto) 0.4 Lymph # (Auto) 1.1 L [place] # (Auto) 0.9 Eos # (Auto) 0.2 Baso # (Auto) 0.1 Abs Immat Gran (auto) 0.10 H Absolute Neuts (auto) 14.2 H Absolute Nucleated RBC 0.000 Nucleated RBC % (auto) 0.0 PT 18.3 H INR 1.6 H APTT 35.4 Anion Gap 15 Estim Creat Clear Calc 78.1 Estimated GFR 55 Random Glucose 259 H Lactic Acid 1.9 Calcium 8.3 L D Total Bilirubin 0.3 AST 20 ALT < 6 Alkaline Phosphatase 81 Total Protein 8.1 H Albumin 2.9 L Assessment and Plan (1) Diabetic infection of left foot: Status: Acute Plan 64-year-old male with a past medical history of HTN, HLD, dm, right BKA, chronic diabetic left foot ulcer, history of left TMA, AFib-not on anticoagulation presented to the hospital today with a chief complaint of left foot pain redness and swelling. Noted to have acute osteomyelitis of the left foot stump and cellulitis. Left foot stump acute osteomyelitis: Left leg cellulitis: Diabetic foot ulcer: Empirically covered with vancomycin and Zosyn Will also obtain MRI Vascular surgery follow-up ID consult for further input Wound consult Acute hypoxic respiratory failure: New onset CHF: While in the ER patient became acutely hypoxic requiring Oxymizer-subsequently transitioned to nasal cannula at 5 L. Not in respiratory distress. Patient has no respiratory symptoms prior to arrival. Patient received 1 L of IV fluids in the ER. Chest x-ray shows pulmonary congestion CT chest showed no evidence of PE or pneumonia but noted to have pulmonary edema and small pleural effusion. Will obtain proBNP, echocardiogram Trial of Bumex IV x1 (patient allergic to Lasix) Daily weights and I's and O's Cardiology consult Diabetes: Insulin sliding scale Opiate dependence: Patient on methadone. Addiction Medicine consult. Hypertension: Patient on diltiazem will hold for now DVT prophylaxis: Lovenox Code status: Full code Quality Stroke Does the patient have a stroke diagnosis?: No VTE Prior VTE?: No VTE Risk Level:: Medical - moderate - high VTE Device Contraindication: Treatment Not Indicated VTE Drug Contraindication: N/A - Med Ordered
--- NOTE | 2025-05-15 00:30 | PC.NURSE ---
pt 84% on 2L, MD at bedside
--- NOTE | 2025-05-15 00:37 | ECG_ITS ---
Test Reason : AFIB Blood Pressure : */* mmHG Vent. Rate : 90 BPM Atrial Rate : 90 BPM P-R Int : 142 ms QRS Dur : 72 ms QT Int : 400 ms P-R-T Axes : 27 2 40 degrees QTcB Int : 489 ms Normal sinus rhythm Minimal voltage criteria for LVH, may be normal variant ( R in aVL ) Anterior infarct (cited on or before 29-Oct-2024) Abnormal ECG When compared with ECG of 29-Oct-2024 15:02, Nonspecific T wave abnormality no longer evident in Anterior leads Nonspecific T wave abnormality now evident in Lateral leads Referred By: Oscar Dixon Electronically Signed By: VALENTINE ANTONIO MD
[2025-05-15] MEDS: Albuterol/Iprat 2.5/0.5MG 3 ML AMPUL.NEB INHALE (00:49)
[2025-05-15 00:58] LABS: Venous Blood Gas Refer to POC result
[2025-05-15] MEDS: Lactated Ringers 1,000 ML 100 ML IVCONT ×2 (00:58→11:24)
[2025-05-15] MEDS: iohexoL 350 MG/ML 100 ML INFUS..BTL 65 ML IV (02:28)
[2025-05-15 03:13] LABS: VBG HCO3 27 mmol/L (22-26); VBG O2 % Saturation 47.0 %
[2025-05-15] MEDS: Bumetanide 1 MG/4 ML VIAL 0.5 MG IVPUSH (06:49)
[2025-05-15 07:01] LABS: MANUAL DIFF FLAG NO
[2025-05-15 07:22] LABS: Hematocrit 23.6 % (42.0-52.0); Hemoglobin 7.4 g/dl (14.0-18.0); Imm Gran Abs Auto 0.12 X10*3/uL (0.00-0.03); Imm Gran Pct Auto 0.8 % (0.0-0.4); Lymphocytes Absolute Auto 1.9 X10*3/uL (1.2-4.9); Mean Corpuscular HGB Conc 31.4 g/dl (31.0-36.0); Mean Corpuscular Hemoglobin 24.4 pg (27.0-33.0); Mean Corpuscular Volume 77.9 fL (80.0-98.0); NRBC Abs Auto 0.000 X10*3/uL (0.0-0.012); NRBC Pct Auto 0.0 /100WBC (0.0-0.2); Platelet Count 383 X10*3/uL (160-400); Red Blood Count 3.03 X10*6/uL (4.60-5.80); White Blood Count 15.7 X10*3/uL (4.8-10.8)
[2025-05-15 07:26] LABS: B Type Natriuretic Peptide 1991 pg/mL (<100)
[2025-05-15 07:29] LABS: Anion Gap 11 (12-20); Blood Urea Nitrogen 21 mg/dL (9-16); Calcium 7.8 mg/dL (8.4-10.2); Carbon Dioxide 24 mmol/L (22-29); Chloride 106 mmol/L (96-108); Creatinine Clr Calc Pharmacy 72.1; Estimated Glomerular Filt Rate 55; Potassium 4.6 mmol/L (3.3-5.1); Sodium 136 mmol/L (135-145)
[2025-05-15 07:46] LABS: Glucose, Whole Blood 175 mg/dL (60-115)
--- NOTE | 2025-05-15 08:30 | PHA.MEDREC ---
Pharmacy Consult ? Medication Reconciliation Pharmacy has completed the medication reconciliation, spoke to patient at bedside who confirmed medications. Pt stated he takes amitriptyline at bedtime scheduled and is not using 45u of lantus as in Rx, but 20 units daily. Pt also states he gets 85mg of methadone but could not name the clinic, only stated it was in [place].
[2025-05-15] MEDS: 0.9 % Sodium Chloride Flush 3 ML SYRINGE IVFLUSH ×3 (08:47→20:17)
--- NOTE | 2025-05-15 09:46 | PM.CNCAR ---
History of Present Illness History of Present Illness Date of Service: 05/15/25 Requesting physician: Edu Hines Consult reason: congestive heart failure Chief complaint: DM foot infection Narrative: I was consulted to see Pasquale in cardiology consultation today because of acute hypoxemic respiratory failure which appears to be secondary to congestive heart failure. Patient is a 64-year-old male with prior history of diabetes with [id number] amputation on the right for he says diuretic foot ulcer and wound with no history of peripheral vascular disease, history of atrial fibrillation but he does not recall. He said he has also has history of hypertension but currently not on any treatment. No prior cardiac issues including denies any history of congestive heart failure or denies any history of coronary artery disease or myocardial infarction. Patient came to the hospital actually to be evaluated for left foot ulcer and wound not healing. Noted to have cellulitis of his left leg and 2nd sharp and subsequently was getting treated for the same and received fluid what appears to be a 1 L of Ringer lactate. Patient subsequently went into an acute respiratory failure and hypoxemia. Subsequent workup was consistent with BNP elevated at 1800 range and CTA chest done to rule out pulmonary embolism showing pulmonary edema. Patient subsequently was diuresed and received 0.5 mg euvolemic atrial reported allergy Lasix which is tolerated well. He said he has got to the bathroom although intake and output chart is not well documented in the chart. Creatinine has remained stable. This morning says he is not sure what happened yesterday. He is questioning as to why needs oxygen. Currently breathing well. Not in any distress. Denied any chest pain. Noted to be anemic with hemoglobin in the 7.5 range. He said he was not aware that he has anemia. Creatinine is at 1.3 which is suggestive of chronic kidney disease again not aware of any chronic kidney disease in him. He denies any palpitations or exertional chest pain although his activity level is limited. Review of Systems Constitutional: Constitutional: Denies body ache(s), Reports chills and Reports fever(s) Eyes: Eyes: Denies no additional eye complaints Cardiovascular: Cardiovascular: Denies chest pain, Denies rapid heart rate, Denies leg edema, Denies lightheadedness, Denies palpitations and Reports dyspnea Respiratory: Respiratory: Reports dyspnea Gastrointestinal: Gastrointestinal: Reports no additional gastrointestinal complaints Genitourinary: Genitourinary: Reports no additional male genitourinary complaints Musculoskeletal: Musculoskeletal: Reports other (Left foot wound) Neurologic: Reports system reviewed and no additional complaints, except as documented Endocrine: Endocrine: Denies palpitations PMFSH Past Medical History Medical History Group A streptococcal infection Open wound Hx of hepatitis Diabetic ulcer of right foot Atrial fibrillation Hypertension Diabetes Family History Family History Father History of lung cancer Mother History of diabetes mellitus Surgical History Surgical History Hx of surgical procedure (~08/06/24) 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 History of transmetatarsal amputation of foot (~09/2016) History of amputation of toe (~08/18/14) History of amputation of toe (~10/21/13) History of lipoma Social History Social History Household Members: None Household Members Other:: mother Housing: Apartment Housing Other:: hotel (homeless) Are you a primary senior care manager to a significant other at home: No Do you presently have visiting nurse or other home services: No Unable to assess alcohol history related to: Unknown Alcohol intake: never Comment: educated on alarms for safety Patient Tobacco Use Status: Current someday Tobacco user Tobacco use type: Cigarette Cigarettes Per Day: 50 Years Smoked: 49 Smoked in Last 30 Days: Yes Patient Interested in Nicotine Replacement: Yes Patient Given Instructions on How to Stop Smoking: Yes Date Education Initiated: 05/15/25 Second Hand Smoke Exposure: No Use of substances other than those prescribed or required for medical reasons: No Substance Use Type: Crack/Cocaine Have you been hit, kicked, punched, or otherwise hurt by someone within the past year? If so, by whom?: No Do you feel safe in your current relationship?: No Current Relationship Is there a partner from a previous relationship who is making you feel unsafe now?: No Are you made to feel afraid or neglected: No Advance Directives: Yes Advance Directives Information Provided: No Advance Directives on File: Yes Advance Directives Date on File: 04/28/24 Do you have a plan to hurt others: No Plan Recently lost weight without trying: No Eating poorly because of decreased appetite: No Nutrition Risks: No Nutritional Risk Poor oral hygiene: No service: No Meds Allergies Allergy/AdvReac Type Severity Reaction Status Date / Time furosemide (Lasix) Allergy Intermediate Hives Verified 05/14/25 22:56 levofloxacin (Levaquin) Allergy Unknown Gastrointestinal Verified 05/14/25 22:56 Upset metronidazole (Flagyl) Allergy Unknown Unknown Verified 05/14/25 22:56 latex Allergy Rash Verified 05/14/25 22:56 contrast dye Allergy Unknown rash, hives Uncoded 05/14/25 22:56 Active Medications: Current Medications Acetaminophen (Acetaminophen 325 Mg Tablet) 650 mg PO Q6H PRN PRN Reason: Pain, Mild 1-3,fever,headache Albuterol/Ipratropium (Albuterol/Iprat 2.5/0.5mg 3 Ml Ampul.Neb) 3 ml INHALE RQ4H WHILE AWAKE PRN PRN Reason: Shortness of Breath Calcium Carbonate (Calcium Carbonate 750 Mg Tab.Chew) 750 mg PO Q4H PRN PRN Reason: Heartburn Dextrose (Dextrose 50 % 25 Gm/50 Ml Syringe) 25 gm IVPUSH Q15M PRN; Protocol PRN Reason: per Hypoglycemia Standing Ord. Enoxaparin Sodium (Enoxaparin Sodium 40 Mg/0.4 Ml Syringe) 40 mg SUBCUT BEDTIME [facility] Last Admin: 05/15/25 01:00 Dose: 40 mg Glucose (Glucose Gel 15 Gm Gel..Gram.) 15 gm PO Q15M PRN; Protocol PRN Reason: per Hypoglycemia Standing Ord. Hydromorphone HCl (Hydromorphone Hcl 1 Mg/Ml Syringe) 0.5 mg IVPUSH Q4H PRN; Protocol PRN Reason: Pain, Severe (Pain Scale 7-10) Last Admin: 05/15/25 08:44 Dose: 0.5 mg Lactated Ringer's (Lr) 1,000 mls @ 100 mls/hr IVCONT .Q10H [facility] Last Admin: 05/15/25 00:58 Dose: 100 mls/hr Piperacillin Sod/Tazobactam (Sod 3.375 gm/ Sodium Chloride) 50 mls @ 100 mls/hr IV Q6H [facility] Last Infusion: 05/15/25 06:30 Dose: Infused Vancomycin HCl 750 mg/ Sodium (Chloride) 265 mls @ 265 mls/hr IV Q12H [facility] Insulin Human Lispro (Insulin Lispro 100 Unit/Ml 3 Ml Vial) 0 - 10 unit SUBCUT QIDACHS [facility]; Protocol Last Admin: 05/15/25 08:43 Dose: 1 unit Magnesium Hydroxide (Milk Of Magnesia 30 Ml Oral.Susp) 30 ml PO DAILY PRN PRN Reason: Constipation Melatonin (Melatonin 3 Mg Tablet) 6 mg PO BEDTIME PRN PRN Reason: Insomnia Pharmacy Consult (Consult Rx Vancomycin Dosing) 1 each MISCELLANE DAILY PRN PRN Reason: Consult order Polyethylene Glycol (Polyethylene Glycol 3350 17 Gm Powd.Pack) 17 gm PO DAILY PRN PRN Reason: Constipation Sodium Chloride (0.9 % Sodium Chloride Flush 3 Ml Syringe) 3 ml IVFLUSH [facility] Last Admin: 05/15/25 08:47 Dose: 3 ml Home Medications ?Medication ?Instructions ?Recorded ?Confirmed ?Last Taken ?Type amitriptyline 50 mg tablet 50 mg PO BEDTIME 12/09/20 05/15/25 05/14/25 History blood sugar diagnostic (FreeStyle #10 ea 03/08/22 06/21/24 Unknown History Lite Strips) insulin syringe-needle U-100 1 mL #10 ea 03/08/22 10/28/23 Unknown History 31 gauge x 5/16 (BD Insulin Syringe Ultra-Fine) methadone 10 mg/mL oral concentrate 85 mg PO DAILY 04/10/24 01/08/25 10/29/24 History insulin glargine 100 unit/mL 20 unit subcut DAILY 10/30/24 05/15/25 05/14/25 History subcutaneous solution (Lantus U-100 Insulin) diltiazem HCl 180 mg 180 mg PO DAILY 01/07/25 05/15/25 05/14/25 History capsule,extended release 24 hr Physical Exam Vital Signs: Vital Signs: Last Vital Signs Temp 97.6 F 05/15/25 07:55 Pulse 74 05/15/25 07:55 Resp 20 05/15/25 07:55 BP 122/67 05/15/25 07:55 Pulse Ox 97 05/15/25 07:55 O2 Del Method Nasal Cannula 05/15/25 07:55 O2 Flow Rate 3 05/15/25 07:55 BMI result Body Mass Index 24.1 Const: General: cooperative, comfortable, no acute distress, awake and Physically active Nutritional Appearance: average body habitus Orientation/consciousness: patient oriented x3 HEENT: Head: Yes normocephalic and Yes atraumatic Neck: Neck: Yes trachea midline, Yes supple and Yes no JVD Resp: Effort & Inspection: normal respiratory effort Auscultation: clear to auscultation bilaterally and diminished lung sounds Cardio: Jugular venous distension: no JVD Rate: regular rate Rhythm: regular rhythm Heart sounds: S1 normal heart sound present, S2 normal heart sound present, no click, no gallops and no murmurs GI: Auscultation: normal bowel sounds Skin: General skin exam: no rashes or lesions noted Neuro: General: patient oriented x3 and no focal motor deficits Extrem: General: Yes other (Right below-knee amputation. Complex wound with cellulitis in the left leg) Objective Labs and Meds 05/15/25 06:20 05/15/25 06:20 Lab results: Laboratory Results - last 24 hr 05/14/25 05/14/25 05/15/25 23:08 23:11 00:56 WBC 16.5 H RBC 3.49 L Hgb 8.6 L Hct 26.9 L MCV 77.1 L MCH 24.6 L MCHC 32.0 RDW 14.1 Plt Count 430 H MPV 9.6 Immature Gran % (Auto) 0.6 H Neut % (Auto) 85.8 H Lymph % (Auto) 6.7 L [place] % (Auto) 5.5 Eos % (Auto) 1.0 Baso % (Auto) 0.4 Lymph # (Auto) 1.1 L [place] # (Auto) 0.9 Eos # (Auto) 0.2 Baso # (Auto) 0.1 Abs Immat Gran (auto) 0.10 H Absolute Neuts (auto) 14.2 H Absolute Nucleated RBC 0.000 Nucleated RBC % (auto) 0.0 PT 18.3 H INR 1.6 H APTT 35.4 VBG pH 7.43 VBG pCO2 40 VBG pO2 32 VBG HCO3 27 H VBG O2 Saturation 47.0 VBG Base Excess 2.9 Sodium 137 Potassium 4.3 Chloride 101 Carbon Dioxide 25 Anion Gap 15 BUN 22 H Creatinine 1.32 Estim Creat Clear Calc 78.1 Estimated GFR 55 POC Glucose Random Glucose 259 H Lactic Acid 1.9 Calcium 8.3 L D Total Bilirubin 0.3 AST 20 ALT < 6 Alkaline Phosphatase 81 B-Natriuretic Peptide Total Protein 8.1 H Albumin 2.9 L 05/15/25 05/15/25 05/15/25 06:20 06:37 07:22 WBC 15.7 H RBC 3.03 L Hgb 7.4 L Hct 23.6 L MCV 77.9 L MCH 24.4 L MCHC 31.4 RDW 14.0 Plt Count 383 MPV 10.4 Immature Gran % (Auto) 0.8 H Neut % (Auto) 78.7 H Lymph % (Auto) 11.8 L [place] % (Auto) 6.9 Eos % (Auto) 1.4 Baso % (Auto) 0.4 Lymph # (Auto) 1.9 [place] # (Auto) 1.1 Eos # (Auto) 0.2 Baso # (Auto) 0.1 Abs Immat Gran (auto) 0.12 H Absolute Neuts (auto) 12.4 H Absolute Nucleated RBC 0.000 Nucleated RBC % (auto) 0.0 PT INR APTT VBG pH VBG pCO2 VBG pO2 VBG HCO3 VBG O2 Saturation VBG Base Excess Sodium 136 Potassium 4.6 Chloride 106 Carbon Dioxide 24 Anion Gap 11 L BUN 21 H Creatinine 1.32 Estim Creat Clear Calc 72.1 Estimated GFR 55 POC Glucose 175 H Random Glucose 201 H Lactic Acid Calcium 7.8 L D Total Bilirubin AST ALT Alkaline Phosphatase B-Natriuretic Peptide 1991 H Total Protein Albumin Assessment and Plan (1) Acute pulmonary edema: Status: Acute Acute pulmonary edema that developed in this middle-aged man with significant history of diabetes acutely resolved quickly seems like clinically. Does not appear to be in significant heart failure at this point time. Multiple comorbidities including diabetes, chronic kidney disease, significant anemia. Patient has history of atrial fibrillation although currently he is in sinus rhythm he does not recall ever being told that he had atrial fibrillation. Will need to review his old EKGs. He developed acute pulmonary edema with fluid bolus. Responded very well to low-dose diuretic. At this point time I think patient is euvolemic. However likely cause of acute pulmonary edema like this could be related to myocardial ischemia which is highly likely with his comorbidities. I would transfuse him with packed RBCs with try to maintain hematocrit over 30 and diuresis after each unit. Strict intake and output chart needs to be pursued. Consider adding Jardiance 10 mg to his regimen. Will need an echocardiogram to evaluate for LV systolic and diastolic function given his EKG. If he has significant wall motion abnormality reduced ejection fraction will need invasive cardiac catheterization otherwise will need to pursue ischemic workup with a myocardial perfusion imaging. Would also suggest renal duplex to rule out renal artery stenosis. Close attention to blood pressure. Will follow with you Procedures Date of Service Date of Service: 05/15/25
--- NOTE | 2025-05-15 10:38 | HO.PM.IMPN ---
Subjective Subjective Date of Service: 05/15/25 Review of Systems Follow up leg infection no pain, nausea or vomiting Physical Exam Vital Signs: Vital Signs: Last Vital Signs Temp 97.6 F 05/15/25 07:55 Pulse 74 05/15/25 07:55 Resp 20 05/15/25 07:55 BP 122/67 05/15/25 07:55 Pulse Ox 97 05/15/25 07:55 O2 Del Method Nasal Cannula 05/15/25 07:55 O2 Flow Rate 3 05/15/25 07:55 BMI result Body Mass Index 24.1 Appearing in no acute distress LSCTA heart regular rate rhythm, clear S1, S2 positive bowel sounds, abdomen is soft, nontender neuro patient is alert x3, no focal deficits Objective Data Active Medications Acetaminophen (Acetaminophen 325 Mg Tablet) 650 mg PO Q6H PRN PRN Reason: Pain, Mild 1-3,fever,headache Albuterol/Ipratropium (Albuterol/Iprat 2.5/0.5mg 3 Ml Ampul.Neb) 3 ml INHALE RQ4H WHILE AWAKE PRN PRN Reason: Shortness of Breath Amitriptyline HCl (Amitriptyline Hcl 50 Mg Tablet) 50 mg PO BEDTIME [facility] Calcium Carbonate (Calcium Carbonate 750 Mg Tab.Chew) 750 mg PO Q4H PRN PRN Reason: Heartburn Dextrose (Dextrose 50 % 25 Gm/50 Ml Syringe) 25 gm IVPUSH Q15M PRN; Protocol PRN Reason: per Hypoglycemia Standing Ord. Dextrose (Dextrose 50 % 25 Gm/50 Ml Syringe) 25 gm IVPUSH Q15M PRN; Protocol PRN Reason: per Hypoglycemia Standing Ord. Diltiazem HCl (Diltiazem Hcl Cd 180 Mg Cap.Er.24h) 180 mg PO DAILY [facility]; Protocol Enoxaparin Sodium (Enoxaparin Sodium 40 Mg/0.4 Ml Syringe) 40 mg SUBCUT BEDTIME [facility] Last Admin: 05/15/25 01:00 Dose: 40 mg Documented By: ANA Glucose (Glucose Gel 15 Gm Gel..Gram.) 15 gm PO Q15M PRN; Protocol PRN Reason: per Hypoglycemia Standing Ord. Hydromorphone HCl (Hydromorphone Hcl 1 Mg/Ml Syringe) 0.5 mg IVPUSH Q4H PRN; Protocol PRN Reason: Pain, Severe (Pain Scale 7-10) Last Admin: 05/15/25 08:44 Dose: 0.5 mg Documented By: JOHNNY Lactated Ringer's (Lr) 1,000 mls @ 100 mls/hr IVCONT .Q10H [facility] Last Admin: 05/15/25 00:58 Dose: 100 mls/hr Documented By: ANA Piperacillin Sod/Tazobactam (Sod 3.375 gm/ Sodium Chloride) 50 mls @ 100 mls/hr IV Q6H [facility] Last Infusion: 05/15/25 06:30 Dose: Infused Documented By: JEN Vancomycin HCl 750 mg/ Sodium (Chloride) 265 mls @ 265 mls/hr IV Q12H [facility] Insulin Glargine (Insulin Glargine,Hum.Rec.Anlog 100 Unit/Ml 10 Ml Vial) 20 unit SUBCUT DAILY [facility] Insulin Human Lispro (Insulin Lispro 100 Unit/Ml 3 Ml Vial) 0 unit SUBCUT QIDACHS [facility]; Protocol Magnesium Hydroxide (Milk Of Magnesia 30 Ml Oral.Susp) 30 ml PO DAILY PRN PRN Reason: Constipation Melatonin (Melatonin 3 Mg Tablet) 6 mg PO BEDTIME PRN PRN Reason: Insomnia Pharmacy Consult (Consult Rx Vancomycin Dosing) 1 each MISCELLANE DAILY PRN PRN Reason: Consult order Polyethylene Glycol (Polyethylene Glycol 3350 17 Gm Powd.Pack) 17 gm PO DAILY PRN PRN Reason: Constipation Sodium Chloride (0.9 % Sodium Chloride Flush 3 Ml Syringe) 3 ml IVFLUSH QSHIFT [facility] Last Admin: 05/15/25 08:47 Dose: 3 ml Documented By: JOHNNY Labs 05/15/25 06:20 05/15/25 06:20 Labs: Laboratory Results - last 24 hr 05/14/25 05/14/25 05/15/25 23:08 23:11 00:56 MCV 77.1 L MCH 24.6 L MCHC 32.0 RDW 14.1 Plt Count 430 H MPV 9.6 Immature Gran % (Auto) 0.6 H Neut % (Auto) 85.8 H Lymph % (Auto) 6.7 L [place] % (Auto) 5.5 Eos % (Auto) 1.0 Baso % (Auto) 0.4 Lymph # (Auto) 1.1 L [place] # (Auto) 0.9 Eos # (Auto) 0.2 Baso # (Auto) 0.1 Abs Immat Gran (auto) 0.10 H Absolute Neuts (auto) 14.2 H Absolute Nucleated RBC 0.000 Nucleated RBC % (auto) 0.0 PT 18.3 H INR 1.6 H APTT 35.4 VBG pH 7.43 VBG pCO2 40 VBG pO2 32 VBG HCO3 27 H VBG O2 Saturation 47.0 VBG Base Excess 2.9 Anion Gap 15 Estim Creat Clear Calc 78.1 Estimated GFR 55 POC Glucose Random Glucose 259 H Lactic Acid 1.9 Calcium 8.3 L D Total Bilirubin 0.3 AST 20 ALT < 6 Alkaline Phosphatase 81 B-Natriuretic Peptide Total Protein 8.1 H Albumin 2.9 L 05/15/25 05/15/25 05/15/25 06:20 06:37 07:22 MCV 77.9 L MCH 24.4 L MCHC 31.4 RDW 14.0 Plt Count 383 MPV 10.4 Immature Gran % (Auto) 0.8 H Neut % (Auto) 78.7 H Lymph % (Auto) 11.8 L [place] % (Auto) 6.9 Eos % (Auto) 1.4 Baso % (Auto) 0.4 Lymph # (Auto) 1.9 [place] # (Auto) 1.1 Eos # (Auto) 0.2 Baso # (Auto) 0.1 Abs Immat Gran (auto) 0.12 H Absolute Neuts (auto) 12.4 H Absolute Nucleated RBC 0.000 Nucleated RBC % (auto) 0.0 PT INR APTT VBG pH VBG pCO2 VBG pO2 VBG HCO3 VBG O2 Saturation VBG Base Excess Anion Gap 11 L Estim Creat Clear Calc 72.1 Estimated GFR 55 POC Glucose 175 H Random Glucose 201 H Lactic Acid Calcium 7.8 L D Total Bilirubin AST ALT Alkaline Phosphatase B-Natriuretic Peptide 1991 H Total Protein Albumin Assessment and Plan (1) Diabetic foot ulcer: Status: Acute Plan 64-year-old male with a past medical history of HTN, HLD, dm, right BKA, chronic diabetic left foot ulcer, history of left TMA, AFib-not on anticoagulation presented to the hospital today with a chief complaint of left foot pain redness and swelling. Noted to have acute osteomyelitis of the left foot stump and cellulitis. Left foot stump acute osteomyelitis Left leg cellulitis from Diabetic foot ulcer Empirically covered with vancomycin and Zosyn MRI ordered Vascular surgery follow-up ID consult for further input Wound consult Acute hypoxic respiratory failure New onset CHF While in the ER patient became acutely hypoxic requiring Oxymizer-subsequently transitioned to nasal cannula at 5 L. Not in respiratory distress. Patient has no respiratory symptoms prior to arrival. Patient received 1 L of IV fluids in the ER. Chest x-ray shows pulmonary congestion CT chest showed no evidence of PE or pneumonia but noted to have pulmonary edema and small pleural effusion. Will obtain proBNP, echocardiogram Trial of Bumex IV x1 (patient allergic to Lasix) Daily weights and I's and O's Cardiology consult Diabetes Insulin sliding scale Opiate dependence Patient on methadone. Addiction Medicine consult. Hypertension Patient on diltiazem will hold for now DVT prophylaxis: Lovenox Code status: Full code Quality Stroke Does the patient have a stroke diagnosis?: No VTE Prior VTE?: No VTE Risk Level:: Medical - moderate - high VTE Device Contraindication: Treatment Not Indicated VTE Drug Contraindication: N/A - Med Ordered
[2025-05-15] MEDS: dilTIAZem HCL CD 180 MG CAP.ER.24H PO (11:18)
--- NOTE | 2025-05-15 11:34 | HE.PHANOTE ---
METHADONE Last dosed: 80mg on 05/15/2025, picked up 6 take home bottles on 05/15/2025 @0940, per BAKARI Matthews at [facility] .
[2025-05-15 11:49] LABS: Glucose, Whole Blood 188 mg/dL (60-115)
[2025-05-15] MEDS: methADONE HCl 20 MG/2 ML ORAL.CONC 80 MG PO (14:55)
[2025-05-15] MEDS: Bumetanide 1 MG/4 ML VIAL IVPUSH ×2 (15:30→20:07)
[2025-05-15 15:42] LABS: Glucose, Whole Blood 140 mg/dL (60-115)
--- NOTE | 2025-05-15 16:00 | PC.NURSE ---
PRBCs started late d/t no signed consent. This RN TT brinda [employer] 2x regarding his. consent signed ~1430 1515 pt found to have removed oxymask, o2 in 70s. oxymask placed back on pt and o2 requirement increased from 3L to 10L. at 10L oxymask pt o2 88-90%. pt switched to non-rebreather 15L with o2 in 90s. during this time pt did not appear to be in respiratory distress, RR 18. pt alert and awake. lung with bilat crackles throughout. Brinda PARTIDA and RT made aware. medicated per JAN prior to blood transfusion. PRBC running at 75mL/hr. bumex to be given after 1st transfusion per provider.
--- NOTE | 2025-05-15 16:54 | HO.SKINPHOTO ---
Location: LLE Location: Category: Stage: Length: Width: Depth: cm Location: Category: Stage: Length: Width: Depth: cm Location: Category: Stage: Length: Width: Depth: cm Location: Category: Stage: Length: Width: Depth: cm Location: Category: Stage: Length: Width: Depth: cm
[2025-05-15 21:22] LABS: Glucose, Whole Blood 228 mg/dL (60-115)
[2025-05-16] VITALS (7 sets, daily range): BP systolic 133–146; BP diastolic 65–87; PULSE 76–94; RESP 17–21; TEMP 36.6–37.1; O2SAT 91–96
--- NOTE | 2025-05-16 00:08 | P.CNID_ITS ---
History of Present Illness Data of Consult Service Date: 05/15/25 Requesting physician: Lexus Patel Primary Care Provider: Mac Clarke MD HPI Reason for consult: sepsis He presents with exudate and drainage left foot. 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 He has bacteremia ,gram positive cocci in chains,ID pending. He has OM fourth MT stump. He has fever to 101 and leukocytosis. Review of Systems 2 Review of Systems: Yes all other systems are reviewed and are negative PMFSH Past Medical History Medical History (Updated 05/16/25 @ 00:13 by Mariangel Dan MD) Sepsis Group A streptococcal infection Open wound Hx of hepatitis Diabetic ulcer of right foot Atrial fibrillation Hypertension Diabetes Family History Family History Father History of lung cancer Mother History of diabetes mellitus Family history: reviewed and not pertinent Surgical History Surgical History Hx of surgical procedure (~08/06/24) 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 History of transmetatarsal amputation of foot (~09/2016) History of amputation of toe (~08/18/14) History of amputation of toe (~10/21/13) History of lipoma Social History Social History Household Members: None Household Members Other:: mother Housing: Apartment Housing Other:: hotel (homeless) Are you a primary health care legal assistant to a significant other at home: No Do you presently have visiting nurse or other home services: No Unable to assess alcohol history related to: Unknown Alcohol intake: never Comment: Lt BKA, Rt TMA, wheelchair boud Patient Tobacco Use Status: Current someday Tobacco user Tobacco use type: Cigarette Cigarettes Per Day: 50 Years Smoked: 49 Smoked in Last 30 Days: Yes Patient Interested in Nicotine Replacement: Yes Patient Given Instructions on How to Stop Smoking: Yes Date Education Initiated: 05/15/25 Second Hand Smoke Exposure: No Use of substances other than those prescribed or required for medical reasons: No Substance Use Type: Crack/Cocaine Currently Displaying Signs/Symptoms of Drug Intoxication Withdrawal: No Have you been hit, kicked, punched, or otherwise hurt by someone within the past year? If so, by whom?: No Do you feel safe in your current relationship?: No Current Relationship Is there a partner from a previous relationship who is making you feel unsafe now?: No Are you made to feel afraid or neglected: No Advance Directives: Yes Advance Directives Information Provided: No Advance Directives on File: Yes Advance Directives Date on File: 04/28/24 Do you have a plan to hurt others: No Plan Recently lost weight without trying: No Eating poorly because of decreased appetite: No Nutrition Risks: No Nutritional Risk Poor oral hygiene: No service: No Meds Allergies Allergy/AdvReac Type Severity Reaction Status Date / Time furosemide (Lasix) Allergy Intermediate Hives Verified 05/14/25 22:56 levofloxacin (Levaquin) Allergy Unknown Gastrointestinal Verified 05/14/25 22:56 Upset metronidazole (Flagyl) Allergy Unknown Unknown Verified 05/14/25 22:56 latex Allergy Rash Verified 05/14/25 22:56 contrast dye Allergy Unknown rash, hives Uncoded 05/14/25 22:56 Active Medications: Current Medications Acetaminophen (Acetaminophen 325 Mg Tablet) 650 mg PO Q6H PRN PRN Reason: Pain, Mild 1-3,fever,headache Albuterol/Ipratropium (Albuterol/Iprat 2.5/0.5mg 3 Ml Ampul.Neb) 3 ml INHALE RQ4H WHILE AWAKE PRN PRN Reason: Shortness of Breath Amitriptyline HCl (Amitriptyline Hcl 50 Mg Tablet) 50 mg PO BEDTIME [facility] Last Admin: 05/15/25 20:08 Dose: 50 mg Calcium Carbonate (Calcium Carbonate 750 Mg Tab.Chew) 750 mg PO Q4H PRN PRN Reason: Heartburn Dextrose (Dextrose 50 % 25 Gm/50 Ml Syringe) 25 gm IVPUSH Q15M PRN; Protocol PRN Reason: per Hypoglycemia Standing Ord. Dextrose (Dextrose 50 % 25 Gm/50 Ml Syringe) 25 gm IVPUSH Q15M PRN; Protocol PRN Reason: per Hypoglycemia Standing Ord. Diltiazem HCl (Diltiazem Hcl Cd 180 Mg Cap.Er.24h) 180 mg PO DAILY [facility]; Protocol Last Admin: 05/15/25 11:18 Dose: 180 mg Empagliflozin (Empagliflozin 10 Mg Tablet) 10 mg PO DAILY [facility] Last Admin: 05/15/25 11:21 Dose: 10 mg Enoxaparin Sodium (Enoxaparin Sodium 40 Mg/0.4 Ml Syringe) 40 mg SUBCUT BEDTIME [facility] Last Admin: 05/15/25 20:07 Dose: 40 mg Glucose (Glucose Gel 15 Gm Gel..Gram.) 15 gm PO Q15M PRN; Protocol PRN Reason: per Hypoglycemia Standing Ord. Hydromorphone HCl (Hydromorphone Hcl 1 Mg/Ml Syringe) 0.5 mg IVPUSH Q4H PRN; Protocol PRN Reason: Pain, Severe (Pain Scale 7-10) Last Admin: 05/15/25 08:44 Dose: 0.5 mg Piperacillin Sod/Tazobactam (Sod 3.375 gm/ Sodium Chloride) 50 mls @ 100 mls/hr IV Q6H [facility] Last Infusion: 05/15/25 19:22 Dose: Infused Vancomycin HCl 750 mg/ Sodium (Chloride) 265 mls @ 265 mls/hr IV Q12H [facility] Last Infusion: 05/15/25 15:20 Dose: Infused Insulin Glargine (Insulin Glargine,Hum.Rec.Anlog 100 Unit/Ml 10 Ml Vial) 20 unit SUBCUT DAILY [facility] Insulin Human Lispro (Insulin Lispro 100 Unit/Ml 3 Ml Vial) 0 unit SUBCUT QIDACHS [facility]; Protocol Last Admin: 05/15/25 20:44 Dose: 4 unit Magnesium Hydroxide (Milk Of Magnesia 30 Ml Oral.Susp) 30 ml PO DAILY PRN PRN Reason: Constipation Melatonin (Melatonin 3 Mg Tablet) 6 mg PO BEDTIME PRN PRN Reason: Insomnia Methadone HCl (Methadone Hcl 20 Mg/2 Ml Oral.Conc) 80 mg PO DAILY [facility] Last Admin: 05/15/25 14:55 Dose: 80 mg Pharmacy Consult (Consult Rx Vancomycin Dosing) 1 each MISCELLANE DAILY PRN PRN Reason: Consult order Polyethylene Glycol (Polyethylene Glycol 3350 17 Gm Powd.Pack) 17 gm PO DAILY PRN PRN Reason: Constipation Sodium Chloride (0.9 % Sodium Chloride Flush 3 Ml Syringe) 3 ml IVFLUSH QSHIFT [facility] Last Admin: 05/15/25 20:17 Dose: 3 ml Home Medications ?Medication ?Instructions ?Recorded ?Confirmed ?Last Taken ?Type amitriptyline 50 mg tablet 50 mg PO BEDTIME 12/09/20 0 05/15/25 05/14/25 History blood sugar diagnostic (FreeStyle #10 ea 03/08/2206/11 Unknown History Lite Strips) insulin syringe-needle U-100 1 mL #10 ea 03/08/2210/11 Unknown History 31 gauge x 5/16 (BD Insulin Syringe Ultra-Fine) methadone 10 mg/mL oral concentrate 80 mg PO DAILY 05/15/25 05/14/25 10:00 History insulin glargine 100 unit/mL 20 unit subcut DAILY 10/1205/15/25 05/14/25 History subcutaneous solution (Lantus U-100 Insulin) diltiazem HCl 180 mg 180 mg PO DAILY 01/07/2504/0405/14/25 History capsule,extended release 24 hr Physical Exam 2 Vital Signs: Vital Signs: Last Vital Signs Temp 97.8 F 05/15/25 23:25 Pulse 79 05/15/25 23:25 Resp 20 05/15/25 23:25 BP 145/81 H 05/15/25 23:25 Pulse Ox 100 05/15/25 23:25 O2 Del Method Non-Rebreather Ma sk 05/15/25 23:25 O2 Flow Rate 15 05/15/25 23:25 BMI result Body Mass Index 24.1 Extrem: Other: right BKA left wrapped foot ,some exudate Results Labs 05/15/25 06:20 05/15/25 06:20 Labs: Short CBC 05/15/25 Range/Units 06:20 WBC 15.7 H (4.8-10.8) X10*3/uL Hgb 7.4 L (14.0-18.0) g/dl Hct 23.6 L (42.0-52.0) % Plt Count 383 (160-400) X10*3/uL BMP 05/15/25 06:20 Sodium 136 Potassium 4.6 Chloride 106 Carbon Dioxide 24 BUN 21 H Creatinine 1.32 Calcium 7.8 L D Microbiology Microbiology Results: Microbiology 05/14/25 23:08 Blood - Venous Blood Culture - Preliminary Prelim: GPC Gram Stain only Assessment and Plan (1) Diabetic infection of left foot: Status: Acute (2) Sepsis: Status: Acute Plan Would continue Vancomycin and piperacillin/tazobactam and adjust based on bacteremia. Check TTE Duration of antibiotics six weeks IV,possible Daptomycin.
[2025-05-16 07:30] LABS: Hematocrit 31.0 % (42.0-52.0); Hemoglobin 9.9 g/dl (14.0-18.0); Mean Corpuscular HGB Conc 31.9 g/dl (31.0-36.0); Mean Corpuscular Hemoglobin 25.3 pg (27.0-33.0); Mean Corpuscular Volume 79.3 fL (80.0-98.0); NRBC Abs Auto 0.000 X10*3/uL (0.0-0.012); NRBC Pct Auto 0.0 /100WBC (0.0-0.2); Platelet Count 448 X10*3/uL (160-400); Red Blood Count 3.91 X10*6/uL (4.60-5.80); White Blood Count 19.3 X10*3/uL (4.8-10.8)
[2025-05-16 07:38] LABS: Glucose, Whole Blood 139 mg/dL (60-115)
[2025-05-16 07:44] LABS: Anion Gap 15 (12-20); Blood Urea Nitrogen 20 mg/dL (9-16); Calcium 8.3 mg/dL (8.4-10.2); Carbon Dioxide 24 mmol/L (22-29); Chloride 105 mmol/L (96-108); Creatinine Clr Calc Pharmacy 66.1; Estimated Glomerular Filt Rate 50; Potassium 4.4 mmol/L (3.3-5.1); Sodium 140 mmol/L (135-145)
[2025-05-16 07:50] LABS: B Type Natriuretic Peptide 1879 pg/mL (<100)
--- NOTE | 2025-05-16 08:23 | MHC.CM.PN ---
DX DM foot infection Pt lives with his dtr. She is his HCP and [employer]/32H. He requires assist with ADLs. WC bound baseline. [facility] was in place for wound care. Patient was not available at times for wound care. He has been discharged from the agency. A new referral has been sent to [facility]. Patient receives Methadone from [facility]. DP restart [facility], resume [employer] hours. Resume methadone from [facility]. Patients dtr will provide transportation home.
--- NOTE | 2025-05-16 08:51 | P.PNIM_ITS ---
Subjective Subjective Date of Service: 05/16/25 Review of Systems Follow up leg infection no pain, nausea or vomiting Physical Exam 2 Vital Signs: Vital Signs: Last Vital Signs Temp 97.9 F 05/16/25 08:00 Pulse 79 05/16/25 08:00 Resp 20 05/16/25 08:00 BP 139/74 05/16/25 08:00 Pulse Ox 92 05/16/25 08:00 O2 Del Method Nasal Cannula 05/16/25 08:00 O2 Flow Rate 9 05/16/25 08:00 BMI result Body Mass Index 24.1 Appearing in no acute distress lung sounds are clear to auscultation heart regular rate rhythm, clear S1, S2 positive bowel sounds, abdomen is soft, nontender neuro patient is alert x3, no focal deficits Left LE diabetic infection Objective Data Active Medications Acetaminophen (Acetaminophen 325 Mg Tablet) 650 mg PO Q6H PRN PRN Reason: Pain, Mild 1-3,fever,headache Albuterol/Ipratropium (Albuterol/Iprat 2.5/0.5mg 3 Ml Ampul.Neb) 3 ml INHALE RQ4H WHILE AWAKE PRN PRN Reason: Shortness of Breath Amitriptyline HCl (Amitriptyline Hcl 50 Mg Tablet) 50 mg PO BEDTIME [facility] Last Admin: 05/15/25 20:08 Dose: 50 mg Documented By: HECTOR Calcium Carbonate (Calcium Carbonate 750 Mg Tab.Chew) 750 mg PO Q4H PRN PRN Reason: Heartburn Dextrose (Dextrose 50 % 25 Gm/50 Ml Syringe) 25 gm IVPUSH Q15M PRN; Protocol PRN Reason: per Hypoglycemia Standing Ord. Dextrose (Dextrose 50 % 25 Gm/50 Ml Syringe) 25 gm IVPUSH Q15M PRN; Protocol PRN Reason: per Hypoglycemia Standing Ord. Diltiazem HCl (Diltiazem Hcl Cd 180 Mg Cap.Er.24h) 180 mg PO DAILY [facility]; Protocol Last Admin: 05/15/25 11:18 Dose: 180 mg Documented By: JOHNNY Empagliflozin (Empagliflozin 10 Mg Tablet) 10 mg PO DAILY [facility] Last Admin: 05/15/25 11:21 Dose: 10 mg Documented By: JOHNNY Enoxaparin Sodium (Enoxaparin Sodium 40 Mg/0.4 Ml Syringe) 40 mg SUBCUT BEDTIME [facility] Last Admin: 05/15/25 20:07 Dose: 40 mg Documented By: HECTOR Glucose (Glucose Gel 15 Gm Gel..Gram.) 15 gm PO Q15M PRN; Protocol PRN Reason: per Hypoglycemia Standing Ord. Hydromorphone HCl (Hydromorphone Hcl 1 Mg/Ml Syringe) 0.5 mg IVPUSH Q4H PRN; Protocol PRN Reason: Pain, Severe (Pain Scale 7-10) Last Admin: 05/15/25 08:44 Dose: 0.5 mg Documented By: JOHNNY Piperacillin Sod/Tazobactam (Sod 3.375 gm/ Sodium Chloride) 50 mls @ 100 mls/hr IV Q6H [facility] Last Infusion: 05/16/25 06:19 Dose: Infused Documented By: HECTOR Vancomycin HCl 750 mg/ Sodium (Chloride) 265 mls @ 265 mls/hr IV Q12H [facility] Last Infusion: 05/16/25 01:40 Dose: Infused Documented By: HECTOR Insulin Glargine (Insulin Glargine,Hum.Rec.Anlog 100 Unit/Ml 10 Ml Vial) 20 unit SUBCUT DAILY [facility] Insulin Human Lispro (Insulin Lispro 100 Unit/Ml 3 Ml Vial) 0 unit SUBCUT QIDACHS [facility]; Protocol Last Admin: 05/15/25 20:44 Dose: 4 unit Documented By: HECTOR Magnesium Hydroxide (Milk Of Magnesia 30 Ml Oral.Susp) 30 ml PO DAILY PRN PRN Reason: Constipation Melatonin (Melatonin 3 Mg Tablet) 6 mg PO BEDTIME PRN PRN Reason: Insomnia Methadone HCl (Methadone Hcl 20 Mg/2 Ml Oral.Conc) 80 mg PO DAILY [facility] Last Admin: 05/15/25 14:55 Dose: 80 mg Documented By: JOHNNY Co-signed By: HOWIE Pharmacy Consult (Consult Rx Vancomycin Dosing) 1 each MISCELLANE DAILY PRN PRN Reason: Consult order Polyethylene Glycol (Polyethylene Glycol 3350 17 Gm Powd.Pack) 17 gm PO DAILY PRN PRN Reason: Constipation Sodium Chloride (0.9 % Sodium Chloride Flush 3 Ml Syringe) 3 ml IVFLUSH QSHIFT [facility] Last Admin: 05/15/25 20:17 Dose: 3 ml Documented By: HO.N-DESSK Labs 05/16/25 07:11 05/16/25 07:11 Labs: Laboratory Results - last 24 hr 05/15/25 05/15/25 05/15/25 11:09 11:27 15:38 MCV MCH MCHC RDW Plt Count MPV Absolute Nucleated RBC Nucleated RBC % (auto) Anion Gap Estim Creat Clear Calc Estimated GFR POC Glucose 188 H 140 H Random Glucose Calcium B-Natriuretic Peptide Blood Type O Positive Antibody Screen NEGATIVE Crossmatch See Detail 05/15/25 05/16/25 05/16/25 20:34 07:11 07:32 MCV 79.3 L MCH 25.3 L MCHC 31.9 RDW 14.3 Plt Count 448 H MPV 10.4 Absolute Nucleated RBC 0.000 Nucleated RBC % (auto) 0.0 Anion Gap 15 Estim Creat Clear Calc 66.1 Estimated GFR 50 POC Glucose 228 H 139 H Random Glucose 129 H Calcium 8.3 L D B-Natriuretic Peptide 1879 H Blood Type Antibody Screen Crossmatch Microbiology Microbiology Results: Microbiology 05/14/25 23:11 Blood Culture - Preliminary Blood - Venous No growth after 24 hours. 05/14/25 23:08 Blood Culture - Preliminary Blood - Venous Prelim: GPC Gram Stain only Assessment and Plan (1) Diabetic foot ulcer: Status: Acute Plan 64-year-old male with a past medical history of HTN, HLD, dm, right BKA, chronic diabetic left foot ulcer, history of left TMA, AFib-not on anticoagulation presented to the hospital today with a chief complaint of left foot pain redness and swelling. Noted to have acute osteomyelitis of the left foot stump and cellulitis. GPC bacteremia 2/2, MRSA negative, Staph aureus positive Continue vancomycin and Zosyn for now Follow up final cultures Microcytic Anemia, non blood loss Transfused 2 units of PRBCs with diuresis and between Discussed with Cardiology as patient's symptoms maybe secondary to myocardial ischemia, recommended to transfuse to keep hematocrit above 30 Hematocrit 31 today Left foot stump acute osteomyelitis Left leg cellulitis from Diabetic foot ulcer Empirically covered with vancomycin and Zosyn MRI ordered Vascular surgery/general surgery follow-up ID consult> continue vancomycin and Zosyn, check TTE, duration of antibiotics will be 6 weeks possible daptomycin Wound consult Acute hypoxic respiratory failure New onset CHF While in the ER patient became acutely hypoxic requiring Oxymizer-subsequently transitioned to nasal cannula at 5 L. s/p 1 L of IV fluids in the ER. CT chest showed no evidence of PE or pneumonia but noted to have pulmonary edema and small pleural effusion. echocardiogram Trial of Bumex IV x1 (patient allergic to Lasix) Daily weights and I's and O's Cardiology consult> patient responded to low-dose diuretic, appears euvolemic at this time. Added Jardiance 10 mg daily, transfused 2 units of packed red blood cells, echocardiogram ordered Diabetes 2 Insulin sliding scale Opiate dependence Patient on methadone. Hypertension Patient on diltiazem will hold for now DVT prophylaxis: Lovenox Code status: Full code Quality Stroke Does the patient have a stroke diagnosis?: No VTE Prior VTE?: No VTE Risk Level:: Medical - moderate - high VTE Device Contraindication: Treatment Not Indicated VTE Drug Contraindication: N/A - Med Ordered
[2025-05-16] MEDS: Insulin Glargine,Hum.rec.anlog 100 UNIT/ML 10 ML VIAL 20 UNIT SUBCUT (08:52)
[2025-05-16] MEDS: dilTIAZem HCL CD 180 MG CAP.ER.24H PO (08:53)
[2025-05-16] MEDS: 0.9 % Sodium Chloride Flush 3 ML SYRINGE IVFLUSH ×3 (08:53→21:39)
[2025-05-16] MEDS: methADONE HCl 20 MG/2 ML ORAL.CONC 80 MG PO (08:53)
--- NOTE | 2025-05-16 10:06 | PM.PNCARD ---
Subjective Subjective Date of Service: 05/16/25 Principal diagnosis: CHF Interval history: Patient says last night he had a rough night but this morning says he is back to normal. Does not have much significant symptoms. No overt bleeding. Has transfused and hematocrit has improved above 30. Creatinine is bumped up but has received some diuresis. Intake and output chart suggest more positive balance. Hemodynamically stable. Review of Systems Review of Systems Yes all other systems are reviewed and are negative Physical Exam Vital Signs: Last Vital Signs Temp 97.9 F 05/16/25 08:00 Pulse 79 05/16/25 08:00 Resp 20 05/16/25 08:00 BP 139/74 05/16/25 08:00 Pulse Ox 92 05/16/25 08:00 O2 Del Method Nasal Cannula 05/16/25 08:00 O2 Flow Rate 9 05/16/25 08:00 BMI result Body Mass Index 24.1 Const General: cooperative, comfortable, no acute distress, awake and Physically active Nutritional Appearance: average body habitus Orientation/consciousness: patient oriented x3 HEENT Head: Yes normocephalic and Yes atraumatic Neck Neck: Yes trachea midline, Yes supple and Yes no JVD Resp Effort & Inspection: normal respiratory effort Auscultation: clear to auscultation bilaterally and diminished lung sounds Cardio Jugular venous distension: no JVD Rate: regular rate Rhythm: regular rhythm Heart sounds: S1 normal heart sound present, S2 normal heart sound present, no click, no gallops and no murmurs GI Auscultation: normal bowel sounds Skin General skin exam: no rashes or lesions noted Neuro General: patient oriented x3 and no focal motor deficits Extrem General: Yes other (Right below-knee amputation. Complex wound with cellulitis in the left leg) Objective Labs and Meds 05/16/25 07:11 05/16/25 07:11 Lab results: Laboratory Results - last 24 hr 05/15/25 05/15/25 05/15/25 11:09 11:27 15:38 WBC RBC Hgb Hct MCV MCH MCHC RDW Plt Count MPV Absolute Nucleated RBC Nucleated RBC % (auto) Sodium Potassium Chloride Carbon Dioxide Anion Gap BUN Creatinine Estim Creat Clear Calc Estimated GFR POC Glucose 188 H 140 H Random Glucose Calcium B-Natriuretic Peptide Blood Type O Positive Antibody Screen NEGATIVE Crossmatch See Detail 05/15/25 05/16/2525 20:34 07:11 07:32 WBC 19.3 H RBC 3.91 L D Hgb 9.9 L D Hct 31.0 L D MCV 79.3 L MCH 25.3 L MCHC 31.9 RDW 14.3 Plt Count 448 H MPV 10.4 Absolute Nucleated RBC 0.000 Nucleated RBC % (auto) 0.0 Sodium 140 Potassium 4.4 Chloride 105 Carbon Dioxide 24 Anion Gap 15 BUN 20 H Creatinine 1.44 H Estim Creat Clear Calc 66.1 Estimated GFR 50 POC Glucose 228 H 139 H Random Glucose 129 H Calcium 8.3 L D B-Natriuretic Peptide 1879 H Blood Type Antibody Screen Crossmatch Progress Note: A&P Assessment and plan (1) Acute pulmonary edema: Status: Acute Assessment and Plan: Acute pulmonary edema which seems to have resolved. Clinically does appear to be in significant heart failure. Hold off on diuretic regimen at this point time. Continue Jardiance. Strict intake and output chart needs to be pursued. Echocardiogram tomorrow. Further treatment based on the findings. High likelihood of underlying ischemic heart disease. Also follow up with renal duplex. Will follow with you. Thank you for allowing me to partake in his care Time Spent With Patient Time: Total time managing care of this patient today ____ minutes. Progress Note: Quality Stroke Does the patient have a stroke diagnosis?: No Procedures Date of Service Date of Service: 05/16/25
--- NOTE | 2025-05-16 10:30 | HE.PHANOTE ---
Vancomycin Dosing Patient currently receiving vancomycin 750 mg Q12H. Patient's vancomycin level resulted at 20.6 today with an increase in Scr from 1.32 to 1.44. Due to the elevate level and rise in SCr will adjust dose to vancomycin 1250 mg Q24H, with new predicted AUC of 517 with a trough of 15.4. We will skip dose due at 1200 today to allow some vancomycin to clear and restart vancomycin at tonight at 2200. Will get a follow-up level 05/18 @ 1999. If SCr continue to rise tomorrow, would recommend getting a level earlier. Inez Bowman, PharmD
[2025-05-16 11:24] LABS: Glucose, Whole Blood 214 mg/dL (60-115)
[2025-05-16 15:31] LABS: Glucose, Whole Blood 152 mg/dL (60-115)
--- NOTE | 2025-05-16 18:34 | HO.SKINPHOTO ---
Location: L foot / lower leg
[2025-05-16 21:00] LABS: Glucose, Whole Blood 139 mg/dL (60-115)
[2025-05-17] VITALS (7 sets, daily range): BP systolic 130–157; BP diastolic 62–105; PULSE 84–99; RESP 16–20; TEMP 36.4–37.6; O2SAT 92–96
--- NOTE | 2025-05-17 07:00 | CA_ITS ---
Transthoracic Echocardiogram Patient (Last, First, Middle): Pasquale Zapata, Gender: Male Date of : 1960 Age: 64 Procedure Date: 05/17/2025 Procedure Type: Transthoracic Echocardiogram Location: [facility] [place] Height: 187.96 cm Weight: 92.08 kg BSA: 2.19 m2 Heart Rate: 90 bpm BP: 144 / 72 mmHg Automatic Chief: TO Referring MD: Edu Hines MD Symptoms: chf Study Quality: Adequate w contrast ECG Rhythm: Sinus Conclusions: - Mildly increased left ventricular cavity size. There is normal left ventricular wall thickness. The left ventricular systolic function is moderate to severely decreased. The visually estimated ejection fraction is between 25-30%. - E/E prime ratio is >15, consistent with elevated filling pressures. - Mildly increased right ventricular cavity size. There is normal right ventricular systolic function. Findings Procedure Information Contrast agent, definity, is being given per protocol without apparent complications. Left Ventricle Mildly increased left ventricular cavity size. There is normal left ventricular wall thickness. The left ventricular systolic function is moderate to severely decreased. The visually estimated ejection fraction is between 25-30%. There is moderate global hypokinesis. Abnormal diastolic function is noted. Spectral Doppler is indicative of a pseudonormal filling pattern. E/E prime ratio is >15, consistent with elevated filling pressures. Right Ventricle Mildly increased right ventricular cavity size. There is normal right ventricular systolic function. Atria The left atrium is severely dilated. The right atrium is mildly dilated. Aortic Valve Normal aortic valve structure and function. There is no aortic valve stenosis. There is no aortic valve regurgitation. Mitral Valve The mitral valve appears normal. There is mild mitral valve regurgitation. There is no mitral valve stenosis. Pulmonic Valve The pulmonic valve is normal. There is trace pulmonic valve regurgitation. Tricuspid Valve Normal tricuspid valve structure. There is trace tricuspid valve regurgitation. The right ventricular systolic pressure is 40 mmHg. Significantly elevated right atrial pressure. Mild pulmonary hypertension is present. Great Vessels There is mild dilatation of the ascending aorta measuring 3.90 cm. The visualized portions of the pulmonary artery and branches are normal. Venous The inferior vena cava is dilated and does not collapse with inspiration. Pericardium/Pleural There is no evidence of pericardial effusion. Prior Study Comparison No prior study available for comparison. Measurements 2D Linear Measurements IVSd: 1.05 0.6-0.9/0.6-1.0 cm LVIDd: 6.21 3.9-5.3/4.2-5.9 cm LVIDd Index: 2.84 2.4-3.2/2.2-3.1 cm/m2 LVIDs: 5.23 2.0-3.6 cm LVPWd: 0.87 0.7-1.1 cm LA Diam: 5.20 2.7-3.8/3.0-4.0 cm LAIDs Index: 2.37 1.5-2.3 cm/m2 LV Mass: 309.59 67-162/88-224 g LV Mass Index: 141.37 43-95/49-115 g/m2 LVOT Diam: 2.20 3.0+(-)1.3 cm 2D Systolic Function EF 4C: 26.70 >55% EF 2C: 31.10 >55% EF BiP: 29.50 >55% Mitral Valve MV Pk E: 1.17 MV PK A: 0.80 MV Decel Time: 185.00 E/A: 1.50 E'Lateral: 5.55 E'Medial: 3.92 E/E' Med: 29.80 E/E' Lat: 21.10 PHT: 54.00 MVA PHT: 4.07 Decel Shelby: 6.31 MR Vol - PW Dopp: 47.60 MR VTI: 1.70 MR ERO: 28.00 MR Alias Leo: 0.39 MR RAD: 0.80 Aortic Valve AoV Pk Leo: 1.92 AoV Mn Leo: 1.43 AoV VTI: 0.37 AoV Pk Grad: 15.00 Aov Mn Grad: 9.00 JABARI Cont.VTI: 1.78 LVOT LVOT Pk Leo: 0.91 LVOT Mn Leo: 0.63 LVOT VTI: 0.17 LVOT Pk Grad: 3.00 LVOT Mn Grad: 2.00 LVOT Diam: 2.20 LVOT Area: 3.80 Diastolic Function MV Pk E: 1.17 MV Pk A: 0.80 E/A: 1.50 E'Medial: 3.92 E/E' Med: 29.80 E' Laterial: 5.55 E/E' Lat: 21.10 Right Ventricle TAPSE (mm): 23.10 TVS' Leo: 11.40 Tricuspid Valve TR Pk Leo: 2.52 TR Pk Grad: 25.00 RA Press: 15.00 RVSP: 40.00 Great Vessels Aorta Sinus of Valsalva: 3.58 2.0-3.5 cm Ao Asc: 3.90 2.1-3.4 cm Updated in Other Vendor System with Status of Final Rusty Simpson MD electronically signed on 05/17/2025 2:47:48 PM with status of Final
[2025-05-17 07:22] LABS: Glucose, Whole Blood 111 mg/dL (60-115)
--- NOTE | 2025-05-17 08:16 | PM.CNGS ---
History of Present Illness Consult details Consult date: 05/17/25 Reason for consult: wound care Narrative: 64-year-old male with a past medical history of HTN, HLD, dm, right BKA, chronic diabetic left foot ulcer, history of left TMA, AFib-not on anticoagulation seen in consult for left lower extremity extensive ulcer on the plantar aspect of the foot. Found to have xrays significant for 4th metatarsal stump osteomyelitits. patient was started on vanco and zosyn. Today patient states he is doing okay, really does not want to have to have another amputation. He states the pain is a bit better than previously. Denies fever, chills. Review of Systems Review of Systems: Yes all other systems are reviewed and are negative PMFSH Past Medical History Medical History (Updated 05/16/25 @ 00:13 by Mariangel Dan MD) Sepsis Group A streptococcal infection Open wound Hx of hepatitis Diabetic ulcer of right foot Atrial fibrillation Hypertension Diabetes Family History Family History Father History of lung cancer Mother History of diabetes mellitus Family history: reviewed and not pertinent Surgical History Surgical History Hx of surgical procedure (~08/06/24) 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 History of transmetatarsal amputation of foot (~09/2016) History of amputation of toe (~08/18/14) History of amputation of toe (~10/21/13) History of lipoma Social History Social History Household Members: None Household Members Other:: mother Housing: Apartment Housing Other:: hotel (homeless) Are you a primary physician locums urgent care to a significant other at home: No Do you presently have visiting nurse or other home services: No Unable to assess alcohol history related to: Unknown Alcohol intake: never Comment: L BKA, R TMA, wheelchair bound Patient Tobacco Use Status: Current someday Tobacco user Tobacco use type: Cigarette Cigarettes Per Day: 50 Years Smoked: 49 Smoked in Last 30 Days: Yes Patient Interested in Nicotine Replacement: Yes Patient Given Instructions on How to Stop Smoking: Yes Date Education Initiated: 05/15/25 Second Hand Smoke Exposure: No Use of substances other than those prescribed or required for medical reasons: No Substance Use Type: Crack/Cocaine Currently Displaying Signs/Symptoms of Drug Intoxication Withdrawal: No Have you been hit, kicked, punched, or otherwise hurt by someone within the past year? If so, by whom?: No Do you feel safe in your current relationship?: No Current Relationship Is there a partner from a previous relationship who is making you feel unsafe now?: No Are you made to feel afraid or neglected: No Advance Directives: Yes Advance Directives Information Provided: No Advance Directives on File: Yes Advance Directives Date on File: 04/28/24 Do you have a plan to hurt others: No Plan Recently lost weight without trying: No Eating poorly because of decreased appetite: No Nutrition Risks: No Nutritional Risk Poor oral hygiene: No service: No Meds Allergies Allergy/AdvReac Type Severity Reaction Status Date / Time furosemide (Lasix) Allergy Intermediate Hives Verified 05/14/25 22:56 levofloxacin (Levaquin) Allergy Unknown Gastrointestinal Verified 05/14/25 22:56 Upset metronidazole (Flagyl) Allergy Unknown Unknown Verified 05/14/25 22:56 latex Allergy Rash Verified 05/14/25 22:56 contrast dye Allergy Unknown rash, hives Uncoded 05/14/25 22:56 Active Medications: Current Medications Acetaminophen (Acetaminophen 325 Mg Tablet) 650 mg PO Q6H PRN PRN Reason: Pain, Mild 1-3,fever,headache Albuterol/Ipratropium (Albuterol/Iprat 2.5/0.5mg 3 Ml Ampul.Neb) 3 ml INHALE RQ4H WHILE AWAKE PRN PRN Reason: Shortness of Breath Amitriptyline HCl (Amitriptyline Hcl 50 Mg Tablet) 50 mg PO BEDTIME [facility] Last Admin: 05/16/25 21:33 Dose: 50 mg Calcium Carbonate (Calcium Carbonate 750 Mg Tab.Chew) 750 mg PO Q4H PRN PRN Reason: Heartburn Dextrose (Dextrose 50 % 25 Gm/50 Ml Syringe) 25 gm IVPUSH Q15M PRN; Protocol PRN Reason: per Hypoglycemia Standing Ord. Dextrose (Dextrose 50 % 25 Gm/50 Ml Syringe) 25 gm IVPUSH Q15M PRN; Protocol PRN Reason: per Hypoglycemia Standing Ord. Diltiazem HCl (Diltiazem Hcl Cd 180 Mg Cap.Er.24h) 180 mg PO DAILY [facility]; Protocol Last Admin: 05/16/25 08:53 Dose: 180 mg Empagliflozin (Empagliflozin 10 Mg Tablet) 10 mg PO DAILY [facility] Last Admin: 05/16/25 08:53 Dose: 10 mg Enoxaparin Sodium (Enoxaparin Sodium 40 Mg/0.4 Ml Syringe) 40 mg SUBCUT BEDTIME [facility] Last Admin: 05/16/25 21:36 Dose: 40 mg Glucose (Glucose Gel 15 Gm Gel..Gram.) 15 gm PO Q15M PRN; Protocol PRN Reason: per Hypoglycemia Standing Ord. Hydromorphone HCl (Hydromorphone Hcl 1 Mg/Ml Syringe) 0.5 mg IVPUSH Q4H PRN; Protocol PRN Reason: Pain, Severe (Pain Scale 7-10) Last Admin: 05/15/25 08:44 Dose: 0.5 mg Piperacillin Sod/Tazobactam (Sod 3.375 gm/ Sodium Chloride) 50 mls @ 100 mls/hr IV Q6H [facility] Last Infusion: 05/17/25 05:54 Dose: Infused Vancomycin HCl 1,250 mg/ (Sodium Chloride) 250 mls @ 166.667 mls/hr IV Q24H [facility] Last Infusion: 05/16/25 23:07 Dose: Infused Insulin Glargine (Insulin Glargine,Hum.Rec.Anlog 100 Unit/Ml 10 Ml Vial) 20 unit SUBCUT DAILY [facility] Last Admin: 05/16/25 08:52 Dose: 20 unit Insulin Human Lispro (Insulin Lispro 100 Unit/Ml 3 Ml Vial) 0 unit SUBCUT QIDACHS [facility]; Protocol Last Admin: 05/17/25 07:43 Dose: Not Given Magnesium Hydroxide (Milk Of Magnesia 30 Ml Oral.Susp) 30 ml PO DAILY PRN PRN Reason: Constipation Melatonin (Melatonin 3 Mg Tablet) 6 mg PO BEDTIME PRN PRN Reason: Insomnia Methadone HCl (Methadone Hcl 20 Mg/2 Ml Oral.Conc) 80 mg PO DAILY [facility] Last Admin: 05/16/25 08:53 Dose: 80 mg Pharmacy Consult (Consult Rx Vancomycin Dosing) 1 each MISCELLANE DAILY PRN PRN Reason: Consult order Polyethylene Glycol (Polyethylene Glycol 3350 17 Gm Powd.Pack) 17 gm PO DAILY PRN PRN Reason: Constipation Sodium Chloride (0.9 % Sodium Chloride Flush 3 Ml Syringe) 3 ml IVFLUSH QSHIFT [facility] Last Admin: 05/16/25 21:39 Dose: 3 ml Home Medications ?Medication ?Instructions ?Recorded ?Confirmed ?Last Taken ?Type amitriptyline 50 mg tablet 50 mg PO BEDTIME 12/09/20 05/15/25 05/14/25 History blood sugar diagnostic (FreeStyle #10 ea 03/08/22 06/21/24 Unknown History Lite Strips) insulin syringe-needle U-100 1 mL #10 ea 03/08/22 10/28/23 Unknown History 31 gauge x 5/16 (BD Insulin Syringe Ultra-Fine) methadone 10 mg/mL oral concentrate 80 mg PO DAILY 04/10/24 05/15/25 05/14/25 10:00 History insulin glargine 100 unit/mL 20 unit subcut DAILY 10/30/24 05/15/25 05/14/25 History subcutaneous solution (Lantus U-100 Insulin) diltiazem HCl 180 mg 180 mg PO DAILY 01/07/25 05/15/25 05/14/25 History capsule,extended release 24 hr Physical Exam Vital Signs: Vital Signs: Last Vital Signs Temp 97.6 F 05/17/25 03:39 Pulse 84 05/17/25 03:39 Resp 17 05/17/25 03:39 BP 144/72 H 05/17/25 03:39 Pulse Ox 92 05/17/25 03:39 O2 Del Method Nasal Cannula 05/17/25 03:39 O2 Flow Rate 5 05/17/25 03:39 BMI result Body Mass Index 24.1 Const: General: comfortable and no acute distress Orientation/consciousness: patient oriented x3 Resp: Effort & Inspection: normal respiratory effort and able to speak in complete sentences Neuro: General: patient oriented x3 Extrem: Other: LLE: left TMA. Large ulcer on the plantar aspect of the foot. moderate amounts of slough. Redness extending upwards multiple other small ulcers along the fenton. On the lateral aspect of the left extremity, a larger more superficial wound without slough. Right lower extremity: abnormal to inspection (right bka) Results Labs 05/16/25 07:11 05/16/25 07:11 Labs: Abnormal lab results 05/16/25 05/16/25 05/16/25 Range/Units 09:49 11:20 15:27 POC Glucose 214 H 152 H (60-115) mg/dL Random Vancomycin 20.6 H (15-20) mcg/mL 05/16/25 Range/Units 20:55 POC Glucose 139 H (60-115) mg/dL Random Vancomycin (15-20) mcg/mL All other labs normal. Assessment and Plan (1) Diabetic foot ulcer: Qualifiers: Diabetes mellitus type: type 2 Diabetic foot ulcer location: unspecified part of foot Laterality: left Non-pressure ulcer stage: with muscle involvement without evidence of necrosis Qualified Code(s): E11.621 - Type 2 diabetes mellitus with foot ulcer; L97.525 - Non-pressure chronic ulcer of other part of left foot with muscle involvement without evidence of necrosis Status: Acute (2) Acute osteomyelitis of left foot: Status: Acute Plan 64-year-old male with a past medical history of HTN, HLD, dm, right BKA, chronic diabetic left foot ulcer, history of left TMA, AFib-not on anticoagulation presented to the hospital today with a chief complaint of left foot pain redness and swelling. Patients pain is mildly improved. denies fever or chills. he reports trying to keep the foot elevated. Patient found to have left 4th metatarsal osteomyelitis on xray, patient started on vancomycin and zosyn. On exam he has an extensive ulcer on the plantar aspect of the foot, moderate amount of slough. multiple other ulcers on the fenton, not very deep. There is one more superficial large wound on the lateral aspect of the LLE. Would recommend silver alginate on the foot ulcer, would add xeroform on the other wounds. vascular consult pending, will continue with wound care for now, pending vascular recommendations possible BKA optimal glucose control. continue IV ABX daily dressing changes Procedures Date of Service Date of Service: 05/17/25
[2025-05-17] MEDS: 0.9 % Sodium Chloride Flush 3 ML SYRINGE IVFLUSH ×2 (09:15→14:02)
[2025-05-17] MEDS: Insulin Glargine,Hum.rec.anlog 100 UNIT/ML 10 ML VIAL 20 UNIT SUBCUT (09:16)
[2025-05-17] MEDS: dilTIAZem HCL CD 180 MG CAP.ER.24H PO (09:16)
[2025-05-17] MEDS: methADONE HCl 20 MG/2 ML ORAL.CONC 80 MG PO (09:17)
--- NOTE | 2025-05-17 11:01 | P.PNIM_ITS ---
Subjective Subjective Date of Service: 05/17/25 Review of Systems Follow up leg infection no pain, nausea or vomiting Physical Exam 2 Vital Signs: Vital Signs: Last Vital Signs Temp 99.6 F 05/17/25 08:00 Pulse 90 05/17/25 09:16 Resp 18 05/17/25 08:00 BP 145/75 H 05/17/25 09:16 Pulse Ox 96 05/17/25 08:00 O2 Del Method Nasal Cannula 05/17/25 08:00 O2 Flow Rate 9 05/17/25 08:00 BMI result Body Mass Index 24.1 Appearing in no acute distress lung sounds are clear to auscultation heart regular rate rhythm, clear S1, S2 positive bowel sounds, abdomen is soft, nontender neuro patient is alert x3, no focal deficits Objective Data Active Medications Acetaminophen (Acetaminophen 325 Mg Tablet) 650 mg PO Q6H PRN PRN Reason: Pain, Mild 1-3,fever,headache Albuterol/Ipratropium (Albuterol/Iprat 2.5/0.5mg 3 Ml Ampul.Neb) 3 ml INHALE RQ4H WHILE AWAKE PRN PRN Reason: Shortness of Breath Amitriptyline HCl (Amitriptyline Hcl 50 Mg Tablet) 50 mg PO BEDTIME [facility] Last Admin: 05/16/25 21:33 Dose: 50 mg Documented By: ELIOT Calcium Carbonate (Calcium Carbonate 750 Mg Tab.Chew) 750 mg PO Q4H PRN PRN Reason: Heartburn Dextrose (Dextrose 50 % 25 Gm/50 Ml Syringe) 25 gm IVPUSH Q15M PRN; Protocol PRN Reason: per Hypoglycemia Standing Ord. Dextrose (Dextrose 50 % 25 Gm/50 Ml Syringe) 25 gm IVPUSH Q15M PRN; Protocol PRN Reason: per Hypoglycemia Standing Ord. Diltiazem HCl (Diltiazem Hcl Cd 180 Mg Cap.Er.24h) 180 mg PO DAILY [facility]; Protocol Last Admin: 05/17/25 09:16 Dose: 180 mg Documented By: LEONOR Empagliflozin (Empagliflozin 10 Mg Tablet) 10 mg PO DAILY [facility] Last Admin: 05/17/25 09:16 Dose: 10 mg Documented By: LEONOR Enoxaparin Sodium (Enoxaparin Sodium 40 Mg/0.4 Ml Syringe) 40 mg SUBCUT BEDTIME [facility] Last Admin: 05/16/25 21:36 Dose: 40 mg Documented By: ELIOT Glucose (Glucose Gel 15 Gm Gel..Gram.) 15 gm PO Q15M PRN; Protocol PRN Reason: per Hypoglycemia Standing Ord. Hydromorphone HCl (Hydromorphone Hcl 1 Mg/Ml Syringe) 0.5 mg IVPUSH Q4H PRN; Protocol PRN Reason: Pain, Severe (Pain Scale 7-10) Last Admin: 05/15/25 08:44 Dose: 0.5 mg Documented By: JOHNNY Piperacillin Sod/Tazobactam (Sod 3.375 gm/ Sodium Chloride) 50 mls @ 100 mls/hr IV Q6H [facility] Last Infusion: 05/17/25 05:54 Dose: Infused Documented By: ELIOT Vancomycin HCl 1,250 mg/ (Sodium Chloride) 250 mls @ 166.667 mls/hr IV Q24H [facility] Last Infusion: 05/16/25 23:07 Dose: Infused Documented By: ELIOT Insulin Glargine (Insulin Glargine,Hum.Rec.Anlog 100 Unit/Ml 10 Ml Vial) 20 unit SUBCUT DAILY [facility] Last Admin: 05/17/25 09:16 Dose: 20 unit Documented By: LEONOR Insulin Human Lispro (Insulin Lispro 100 Unit/Ml 3 Ml Vial) 0 unit SUBCUT QIDACHS [facility]; Protocol Last Admin: 05/17/25 07:43 Dose: Not Given Documented By: LEONOR Non-Admin Reason: No Insulin Coverage Magnesium Hydroxide (Milk Of Magnesia 30 Ml Oral.Susp) 30 ml PO DAILY PRN PRN Reason: Constipation Melatonin (Melatonin 3 Mg Tablet) 6 mg PO BEDTIME PRN PRN Reason: Insomnia Methadone HCl (Methadone Hcl 20 Mg/2 Ml Oral.Conc) 80 mg PO DAILY [facility] Last Admin: 05/17/25 09:17 Dose: 80 mg Documented By: LEONOR Co-signed By: MAXIMILIANO Pharmacy Consult (Consult Rx Vancomycin Dosing) 1 each MISCELLANE DAILY PRN PRN Reason: Consult order Polyethylene Glycol (Polyethylene Glycol 3350 17 Gm Powd.Pack) 17 gm PO DAILY PRN PRN Reason: Constipation Sodium Chloride (0.9 % Sodium Chloride Flush 3 Ml Syringe) 3 ml IVFLUSH QSHIFT [facility] Last Admin: 05/17/25 09:15 Dose: 3 ml Documented By: LEONOR Labs 05/16/25 07:11 05/16/25 07:11 Labs: Laboratory Results - last 24 hr 05/16/25 05/16/25 05/16/25 11:20 15:27 20:55 POC Glucose 214 H 152 H 139 H 05/17/25 07:16 POC Glucose 111 Microbiology Microbiology Results: Microbiology 05/14/25 23:11 Blood Culture - Preliminary Blood - Venous Staphylococcus aureus 05/14/25 23:08 Blood Culture - Final Blood - Venous Group G streptococcus Assessment and Plan (1) Diabetic foot ulcer: Status: Acute Plan 64-year-old male with a past medical history of HTN, HLD, dm, right BKA, chronic diabetic left foot ulcer, history of left TMA, AFib-not on anticoagulation presented to the hospital today with a chief complaint of left foot pain redness and swelling. Noted to have acute osteomyelitis of the left foot stump and cellulitis. Staph aureus, group G Streptococcus bacteremia 2/2, MRSA negative, Staph aureus positive Continue Zosyn for now Follow up final cultures Left foot stump acute osteomyelitis Left leg cellulitis from Diabetic foot ulcer Empirically covered with vancomycin and Zosyn Vascular surgery consult pending ID consult> continue vancomycin and Zosyn, check TTE, duration of antibiotics will be 6 weeks possible daptomycin Wound consult Microcytic Anemia, non blood loss Transfused 2 units of PRBCs with diuresis and between Discussed with Cardiology as patient's symptoms maybe secondary to myocardial ischemia, recommended to transfuse to keep hematocrit above 30 Hematocrit 31 today Acute hypoxic respiratory failure. Resolved New onset CHF While in the ER patient became acutely hypoxic requiring Oxymizer-subsequently transitioned to nasal cannula at 5 L. s/p 1 L of IV fluids in the ER. CT chest showed no evidence of PE or pneumonia but noted to have pulmonary edema and small pleural effusion. echocardiogram Trial of Bumex IV x1 (patient allergic to Lasix) Daily weights and I's and O's Cardiology consult> patient responded to low-dose diuretic, appears euvolemic at this time. Added Jardiance 10 mg daily, transfused 2 units of packed red blood cells, echocardiogram ordered Diabetes 2 Insulin sliding scale Opiate dependence Patient on methadone. Hypertension Patient on diltiazem will hold for now DVT prophylaxis: Erikanox Code status: Full code Quality Stroke Does the patient have a stroke diagnosis?: No VTE Prior VTE?: No VTE Risk Level:: Medical - moderate - high VTE Device Contraindication: Treatment Not Indicated VTE Drug Contraindication: N/A - Med Ordered
[2025-05-17 11:43] LABS: Glucose, Whole Blood 149 mg/dL (60-115)
--- NOTE | 2025-05-17 11:44 | PM.CNGS ---
History of Present Illness Consult details Consult date: 05/17/25 Narrative: Complex 64-year-old gentleman with history right BKA and left transmetatarsal amputation presents for nonhealing left lower extremity ulcers on the plantar aspect of the foot. He has past medical history significant for diabetes. Appears to be reasonably controlled with last hemoglobin A1c in September of 2024 of 6.8. Review of Systems Review of Systems: Yes all other systems are reviewed and are negative Constitutional: Constitutional: Reports no additional constitutional complaints ENT: Reports Normal hearing present Cardiovascular: Cardiovascular: Denies chest pain, Denies chest pain at rest, Denies chest pain with activity and Denies pedal edema Respiratory: Respiratory: Denies cough Gastrointestinal: Gastrointestinal: Denies abdominal pain Musculoskeletal: Musculoskeletal: Denies abnormal gait, Denies muscle cramps and Denies radiating pain into limb Integumentary/Breasts: Skin/Breast: Denies skin ulcer and Denies wounds Neurologic: Reports Normal hearing present and Denies abnormal gait Psychiatric: Psychiatric: Reports no additional psychiatric complaints PMFSH Past Medical History Medical History (Updated 05/16/25 @ 00:13 by Mariangel Dan MD) Sepsis Group A streptococcal infection Open wound Hx of hepatitis Diabetic ulcer of right foot Atrial fibrillation Hypertension Diabetes Family History Family History Father History of lung cancer Mother History of diabetes mellitus Family history: reviewed and not pertinent Surgical History Surgical History Hx of surgical procedure (~08/06/24) 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 History of transmetatarsal amputation of foot (~09/2016) History of amputation of toe (~08/18/14) History of amputation of toe (~10/21/13) History of lipoma Social History Social History Household Members: None Household Members Other:: mother Housing: Apartment Housing Other:: hotel (homeless) Are you a primary critical care nurse to a significant other at home: No Do you presently have visiting nurse or other home services: No Unable to assess alcohol history related to: Unknown Alcohol intake: never Comment: L BKA, R TMA, wheelchair bound Patient Tobacco Use Status: Current someday Tobacco user Tobacco use type: Cigarette Cigarettes Per Day: 50 Years Smoked: 49 Smoked in Last 30 Days: Yes Patient Interested in Nicotine Replacement: Yes Patient Given Instructions on How to Stop Smoking: Yes Date Education Initiated: 05/15/25 Second Hand Smoke Exposure: No Use of substances other than those prescribed or required for medical reasons: No Substance Use Type: Crack/Cocaine Currently Displaying Signs/Symptoms of Drug Intoxication Withdrawal: No Have you been hit, kicked, punched, or otherwise hurt by someone within the past year? If so, by whom?: No Do you feel safe in your current relationship?: No Current Relationship Is there a partner from a previous relationship who is making you feel unsafe now?: No Are you made to feel afraid or neglected: No Advance Directives: Yes Advance Directives Information Provided: No Advance Directives on File: Yes Advance Directives Date on File: 04/28/24 Do you have a plan to hurt others: No Plan Recently lost weight without trying: No Eating poorly because of decreased appetite: No Nutrition Risks: No Nutritional Risk Poor oral hygiene: No service: No Meds Allergies Allergy/AdvReac Type Severity Reaction Status Date / Time furosemide (Lasix) Allergy Intermediate Hives Verified 05/14/25 22:56 levofloxacin (Levaquin) Allergy Unknown Gastrointestinal Verified 05/14/25 22:56 Upset metronidazole (Flagyl) Allergy Unknown Unknown Verified 05/14/25 22:56 latex Allergy Rash Verified 05/14/25 22:56 contrast dye Allergy Unknown rash, hives Uncoded 05/14/25 22:56 Active Medications: Current Medications Acetaminophen (Acetaminophen 325 Mg Tablet) 650 mg PO Q6H PRN PRN Reason: Pain, Mild 1-3,fever,headache Albuterol/Ipratropium (Albuterol/Iprat 2.5/0.5mg 3 Ml Ampul.Neb) 3 ml INHALE RQ4H WHILE AWAKE PRN PRN Reason: Shortness of Breath Amitriptyline HCl (Amitriptyline Hcl 50 Mg Tablet) 50 mg PO BEDTIME [facility] Last Admin: 05/16/25 21:33 Dose: 50 mg Calcium Carbonate (Calcium Carbonate 750 Mg Tab.Chew) 750 mg PO Q4H PRN PRN Reason: Heartburn Dextrose (Dextrose 50 % 25 Gm/50 Ml Syringe) 25 gm IVPUSH Q15M PRN; Protocol PRN Reason: per Hypoglycemia Standing Ord. Dextrose (Dextrose 50 % 25 Gm/50 Ml Syringe) 25 gm IVPUSH Q15M PRN; Protocol PRN Reason: per Hypoglycemia Standing Ord. Diltiazem HCl (Diltiazem Hcl Cd 180 Mg Cap.Er.24h) 180 mg PO DAILY [facility]; Protocol Last Admin: 05/17/25 09:16 Dose: 180 mg Empagliflozin (Empagliflozin 10 Mg Tablet) 10 mg PO DAILY [facility] Last Admin: 05/17/25 09:16 Dose: 10 mg Enoxaparin Sodium (Enoxaparin Sodium 40 Mg/0.4 Ml Syringe) 40 mg SUBCUT BEDTIME [facility] Last Admin: 05/16/25 21:36 Dose: 40 mg Glucose (Glucose Gel 15 Gm Gel..Gram.) 15 gm PO Q15M PRN; Protocol PRN Reason: per Hypoglycemia Standing Ord. Hydromorphone HCl (Hydromorphone Hcl 1 Mg/Ml Syringe) 0.5 mg IVPUSH Q4H PRN; Protocol PRN Reason: Pain, Severe (Pain Scale 7-10) Last Admin: 05/15/25 08:44 Dose: 0.5 mg Piperacillin Sod/Tazobactam (Sod 3.375 gm/ Sodium Chloride) 50 mls @ 100 mls/hr IV Q6H [facility] Last Infusion: 05/17/25 05:54 Dose: Infused Vancomycin HCl 1,250 mg/ (Sodium Chloride) 250 mls @ 166.667 mls/hr IV Q24H [facility] Last Infusion: 05/16/25 23:07 Dose: Infused Insulin Glargine (Insulin Glargine,Hum.Rec.Anlog 100 Unit/Ml 10 Ml Vial) 20 unit SUBCUT DAILY [facility] Last Admin: 05/17/25 09:16 Dose: 20 unit Insulin Human Lispro (Insulin Lispro 100 Unit/Ml 3 Ml Vial) 0 unit SUBCUT QIDACHS [facility]; Protocol Last Admin: 05/17/25 07:43 Dose: Not Given Magnesium Hydroxide (Milk Of Magnesia 30 Ml Oral.Susp) 30 ml PO DAILY PRN PRN Reason: Constipation Melatonin (Melatonin 3 Mg Tablet) 6 mg PO BEDTIME PRN PRN Reason: Insomnia Methadone HCl (Methadone Hcl 20 Mg/2 Ml Oral.Conc) 80 mg PO DAILY [facility] Last Admin: 05/17/25 09:17 Dose: 80 mg Pharmacy Consult (Consult Rx Vancomycin Dosing) 1 each MISCELLANE DAILY PRN PRN Reason: Consult order Polyethylene Glycol (Polyethylene Glycol 3350 17 Gm Powd.Pack) 17 gm PO DAILY PRN PRN Reason: Constipation Sodium Chloride (0.9 % Sodium Chloride Flush 3 Ml Syringe) 3 ml IVFLUSH QSHIFT [facility] Last Admin: 05/17/25 09:15 Dose: 3 ml Home Medications ?Medication ?Instructions ?Recorded ?Confirmed ?Last Taken ?Type amitriptyline 50 mg tablet 50 mg PO BEDTIME 12/09/20 05/15/25 05/14/25 History blood sugar diagnostic (FreeStyle #10 ea 03/08/22 06/21/24 Unknown History Lite Strips) insulin syringe-needle U-100 1 mL #10 ea 03/08/22 10/28/23 Unknown History 31 gauge x 5/16 (BD Insulin Syringe Ultra-Fine) methadone 10 mg/mL oral concentrate 80 mg PO DAILY 04/10/24 05/15/25 05/14/25 10:00 History insulin glargine 100 unit/mL 20 unit subcut DAILY 10/30/24 05/15/25 05/14/25 History subcutaneous solution (Lantus U-100 Insulin) diltiazem HCl 180 mg 180 mg PO DAILY 01/07/25 05/15/25 05/14/25 History capsule,extended release 24 hr Physical Exam Vital Signs: Vital Signs: Last Vital Signs Temp 99.6 F 05/17/25 08:00 Pulse 90 05/17/25 09:16 Resp 18 05/17/25 08:00 BP 145/75 H 05/17/25 09:16 Pulse Ox 96 05/17/25 08:00 O2 Del Method Nasal Cannula 05/17/25 08:00 O2 Flow Rate 9 05/17/25 08:00 BMI result Body Mass Index 24.1 Const: General: cooperative, healthy appearing and comfortable Orientation/consciousness: oriented to person, oriented to place and oriented to time HEENT: Head: Yes normal to inspection Neck: Neck: Yes normal visual inspection Carotids: no bruits Chest: Chest palpation & inspection: normal inspection of the chest Resp: Effort & Inspection: normal respiratory effort and able to speak in complete sentences Auscultation: clear to auscultation bilaterally, no crackles, no rales, no rhonchi and no wheezes Cardio: Other: Left signals only Rate: regular rate Rhythm: regular rhythm Heart sounds: S1 normal heart sound present and S2 normal heart sound present Bruits: no carotid bruits GI: Inspection: Yes normal to inspection Skin: Other: Left foot erosive ulcer with underlying bone exposed. Wounds: no wounds Hair: normal Neuro: General: oriented to person, oriented to place and oriented to time Cranial nerves: Yes CN's II-XII intact bilaterally and Yes Normal hearing present Cognition (Neuro): normal cognition Motor exam (neuro): 5/5 motor strength present throughout Extrem: Other: venous exam: No significant superficial varicosities or spider telangiectasias, minimal edema General: No clubbing, No cyanosis and No edema Psych: Appearance: grossly normal Mental Status: mental status grossly normal Speech and movement: Normal speech and movement present Results Labs 05/16/25 07:11 05/16/25 07:11 Labs: Abnormal lab results 05/16/25 05/16/25 05/17/25 Range/Units 15:27 20:55 11:25 POC Glucose 152 H 139 H 149 H (60-115) mg/dL All other labs normal. Assessment and Plan (1) Acute osteomyelitis of left foot: Status: Acute Plan In short patient has an extensive left lower extremity ulcer penetrating to bone. This will be nearly impossible to heal. At the time of my exam he was actually hanging the foot off the side of the bed indicative of rest pain. I do agree with General surgery and I do think that the best course of action may be BKA versus AKA. He does have skin lesions going all the way up the posterior aspect of the calf as well may not heal and may require an above knee amputation. Thank you for allowing us to assist in his care. If there are any questions or concerns please do not hesitate to contact us. Procedures Date of Service Date of Service: 05/17/25
--- NOTE | 2025-05-17 13:02 | PM.PNCARD ---
Subjective Subjective Date of Service: 05/17/25 Principal diagnosis: CHF Interval history: Seen examined at bedside. He is saying his breathing is improving. Physical Exam Vital Signs: Last Vital Signs Temp 97.8 F 05/17/25 12:00 Pulse 90 05/17/25 12:00 Resp 16 05/17/25 12:00 BP 144/74 H 05/17/25 12:00 Pulse Ox 94 05/17/25 12:00 O2 Del Method Nasal Cannula 05/17/25 12:00 O2 Flow Rate 5 05/17/25 12:00 BMI result Body Mass Index 24.1 GENERAL APPEARANCE: in no acute distress, pleasant. NECK: no carotid bruit, positive jugular venous distention. SKIN: no suspicious lesions, warm and dry. HEART: no murmurs, regular rate and rhythm. LUNGS: Crackles both lungs. ABDOMEN: soft, nontender. EXTREMITIES: Right amputation. Left transmetatarsal amputation with wound currently dressed. PERIPHERAL PULSES: equal. NEUROLOGIC: No gross deficits, AAO X 3 Objective Labs and Meds 05/16/25 07:11 05/16/25 07:11 Lab results: Laboratory Results - last 24 hr 05/16/25 05/16/25 05/17/25 15:27 20:55 07:16 POC Glucose 152 H 139 H 111 05/17/25 11:25 POC Glucose 149 H Progress Note: A&P Assessment and plan (1) Congestive heart failure: Status: Acute Plan [age] year gentleman who is presenting with acute congestive heart failure and osteomyelitis left foot with bacteremia. He is on antibiotics. Clinically he is still appears to be volume overloaded. Would continue IV diuretics. Blood pressure control is reasonable currently. Echocardiography to assess LV function and to assess any regional wall motion abnormalities. We will follow along with you. Thank you for allowing me to participate in the care of your patient. Please feel free to contact me if you have any questions. Time Spent With Patient Time: Total time managing care of this patient today ____ minutes. Progress Note: Quality Stroke Does the patient have a stroke diagnosis?: No Procedures Date of Service Date of Service: 05/17/25
[2025-05-17] MEDS: Bumetanide 1 MG/4 ML VIAL IVPUSH (13:57)
[2025-05-17 16:28] LABS: Glucose, Whole Blood 153 mg/dL (60-115)
--- NOTE | 2025-05-17 16:29 | MHC.CM.PN ---
EMR reviewed and per MD rounds, pt is not medically cleared for discharge due to management of bacetermia, with gen surg recommending a L BKA.
[2025-05-17 20:19] LABS: Glucose, Whole Blood 153 mg/dL (60-115)
[2025-05-17] MEDS: Sacubitril/Valsartan 24/26 1 TAB TABLET PO (20:45)
[2025-05-18] VITALS (8 sets, daily range): BP systolic 123–172; BP diastolic 69–82; PULSE 80–88; RESP 16–20; TEMP 36.1–37.2; O2SAT 92–96
[2025-05-18] MEDS: 0.9 % Sodium Chloride Flush 3 ML SYRINGE IVFLUSH ×4 (00:52→21:56)
--- NOTE | 2025-05-18 07:36 | PM.PNGS ---
Subjective Subjective Date of Service: 05/18/25 <Jun Adams PA-C - Last Filed: 05/18/25 07:49> 05/18/25 <Maynor Cannon MD - Last Filed: 05/18/25 08:21> Interval history: patient doing well, still has some mild pain in the foot, denies pain in the legs. denies fever/chills. <Jun Adams PA-C - Last Filed: 05/18/25 07:49> Physical Exam Vital Signs: Vital Signs: Last Vital Signs Temp 98.9 F 05/18/25 04:00 Pulse 81 05/18/25 04:00 Resp 16 05/18/25 04:00 BP 142/73 H 05/18/25 04:00 Pulse Ox 94 05/18/25 04:00 O2 Del Method Large Bore Nasal Cannula 05/18/25 04:00 O2 Flow Rate 7 05/18/25 04:00 BMI result Body Mass Index 24.1 <Jun Adams PA-C - Last Filed: 05/18/25 07:49> Const: General: comfortable and no acute distress <Jun Adams PA-C - Last Filed: 05/18/25 07:49> Orientation/consciousness: patient oriented x3 <RAUL Deras Last Filed: 05/18/25 07:49> Resp: Effort & Inspection: normal respiratory effort and able to speak in complete sentences <Jun Adams PA-C - Last Filed: 05/18/25 07:49> Neuro: General: patient oriented x3 <RAUL Deras Last Filed: 05/18/25 07:49> Extrem: Other: LLE: left TMA. Large ulcer on the plantar aspect of the foot. moderate amounts of slough. Redness extending upwards multiple other small ulcers along the fenton. On the lateral aspect of the left extremity, a larger more superficial wound without slough. <RAUL Deras Last Filed: 05/18/25 07:49> Right lower extremity: abnormal to inspection (right bka) <RAUL Deras Last Filed: 05/18/25 07:49> Objective Data Active Medications Acetaminophen (Acetaminophen 325 Mg Tablet) 650 mg PO Q6H PRN PRN Reason: Pain, Mild 1-3,fever,headache Albuterol/Ipratropium (Albuterol/Iprat 2.5/0.5mg 3 Ml Ampul.Neb) 3 ml INHALE RQ4H WHILE AWAKE PRN PRN Reason: Shortness of Breath Amitriptyline HCl (Amitriptyline Hcl 50 Mg Tablet) 50 mg PO BEDTIME [facility] Last Admin: 05/17/25 20:46 Dose: 50 mg Documented By: ELIOT Bumetanide (Bumetanide 1 Mg/4 Ml Vial) 1 mg IVPUSH BID@0900,1700 [facility]; Protocol Last Admin: 05/17/25 17:49 Dose: Not Given Documented By: LEONOR Non-Admin Reason: Patient Refused Calcium Carbonate (Calcium Carbonate 750 Mg Tab.Chew) 750 mg PO Q4H PRN PRN Reason: Heartburn Dextrose (Dextrose 50 % 25 Gm/50 Ml Syringe) 25 gm IVPUSH Q15M PRN; Protocol PRN Reason: per Hypoglycemia Standing Ord. Dextrose (Dextrose 50 % 25 Gm/50 Ml Syringe) 25 gm IVPUSH Q15M PRN; Protocol PRN Reason: per Hypoglycemia Standing Ord. Empagliflozin (Empagliflozin 10 Mg Tablet) 10 mg PO DAILY [facility] Last Admin: 05/17/25 09:16 Dose: 10 mg Documented By: LEONOR Enoxaparin Sodium (Enoxaparin Sodium 40 Mg/0.4 Ml Syringe) 40 mg SUBCUT BEDTIME [facility] Last Admin: 05/17/25 20:46 Dose: 40 mg Documented By: ELIOT Glucose (Glucose Gel 15 Gm Gel..Gram.) 15 gm PO Q15M PRN; Protocol PRN Reason: per Hypoglycemia Standing Ord. Hydromorphone HCl (Hydromorphone Hcl 1 Mg/Ml Syringe) 0.5 mg IVPUSH Q4H PRN; Protocol PRN Reason: Pain, Severe (Pain Scale 7-10) Last Admin: 05/17/25 15:41 Dose: 0.5 mg Documented By: LEONOR Piperacillin Sod/Tazobactam (Sod 3.375 gm/ Sodium Chloride) 50 mls @ 100 mls/hr IV Q6H [facility] Last Infusion: 05/18/25 05:47 Dose: Infused Documented By: ELIOT Vancomycin HCl 1,250 mg/ (Sodium Chloride) 250 mls @ 166.667 mls/hr IV Q24H [facility] Last Infusion: 05/17/25 23:23 Dose: Infused Documented By: ELIOT Insulin Glargine (Insulin Glargine,Hum.Rec.Anlog 100 Unit/Ml 10 Ml Vial) 20 unit SUBCUT DAILY [facility] Last Admin: 05/17/25 09:16 Dose: 20 unit Documented By: LEONOR Insulin Human Lispro (Insulin Lispro 100 Unit/Ml 3 Ml Vial) 0 unit SUBCUT QIDACHS [facility]; Protocol Last Admin: 05/17/25 20:47 Dose: 2 unit Documented By: ELIOT Magnesium Hydroxide (Milk Of Magnesia 30 Ml Oral.Susp) 30 ml PO DAILY PRN PRN Reason: Constipation Melatonin (Melatonin 3 Mg Tablet) 6 mg PO BEDTIME PRN PRN Reason: Insomnia Methadone HCl (Methadone Hcl 20 Mg/2 Ml Oral.Conc) 80 mg PO DAILY [facility] Last Admin: 05/17/25 09:17 Dose: 80 mg Documented By: LENOOR Co-signed By: MAXIMILIANO Pharmacy Consult (Consult Rx Vancomycin Dosing) 1 each MISCELLANE DAILY PRN PRN Reason: Consult order Polyethylene Glycol (Polyethylene Glycol 3350 17 Gm Powd.Pack) 17 gm PO DAILY PRN PRN Reason: Constipation Sacubitril/Valsartan (Sacubitril/Valsartan 1 Tab Tablet) 1 tab PO BID [facility]; Protocol Last Admin: 05/17/25 20:45 Dose: 1 tab Documented By: ELIOT Sodium Chloride (0.9 % Sodium Chloride Flush 3 Ml Syringe) 3 ml IVFLUSH QSHIFT [facility] Last Admin: 05/18/25 00:52 Dose: 3 ml Documented By: ELIOT <Jun Adams PA-C - Last Filed: 05/18/25 07:49> Labs CBC & Chem 7: 05/16/25 07:11 05/16/25 07:11 <Jun Adams PA-C - Last Filed: 05/18/25 07:49> Labs: Laboratory Results - last 24 hr 05/17/25 05/17/25 05/17/25 11:25 16:24 20:14 POC Glucose 149 H 153 H 153 H <Jun Adams PA-C - Last Filed: 05/18/25 07:49> Microbiology Microbiology Results: Microbiology 05/14/25 23:11 Blood Culture - Preliminary Blood - Venous Staphylococcus aureus 05/14/25 23:08 Blood Culture - Final Blood - Venous Group G streptococcus <Jun Adams PA-C - Last Filed: 05/18/25 07:49> Procedures Date of Service Date of Service: 05/18/25 <Jun Adams PA-C - Last Filed: 05/18/25 07:49> 05/18/25 <Maynor Cannon MD - Last Filed: 05/18/25 08:21> Progress Note: A&P Assessment and plan (1) Diabetic foot ulcer: Status: Acute <Jun Adams PA-C - Last Filed: 05/18/25 07:49> (2) Acute osteomyelitis of left foot: Status: Acute <Jun Adams PA-C - Last Filed: 05/18/25 07:49> Assessment and Plan: 64-year-old male with a past medical history of HTN, HLD, dm, right BKA, chronic diabetic left foot ulcer, history of left TMA, AFib-not on anticoagulation, being followed for left foot ulcer with 4th metatarsal osteomyelitis. Patient relatively the same from yesterday. Patient experiencing mild pain in the foot. denies fever, chills. Vascular consult appreciated. Wounds are similar to yesterday, more superficial wounds on the proximal aspect of the calf and fenton. Plantar aspect of the left foot is a large deep wound, with moderate amounts of slough. I was able to debride some gently with saline soaked gauze. This wound was dressed with silver alginate, covered with gauze. the more superficial wounds were dressed with xerofrom. At this point, patient will likely need to have BKA or possible AKA to manage. Patient understands that if it needs to happen he will have surgical intervention. Glucose control continue IV Abx pain control leg elevation BKA? <Jun Adams PA-C - Last Filed: 05/18/25 07:49> 64-year-old male with a past medical history of HTN, HLD, dm, right BKA, chronic diabetic left foot ulcer, history of left TMA, AFib-not on anticoagulation, being followed for left foot ulcer with 4th metatarsal osteomyelitis. Patient relatively the same from yesterday. Patient experiencing mild pain in the foot. denies fever, chills. Vascular consult appreciated. Wounds are similar to yesterday, more superficial wounds on the proximal aspect of the calf and fenton. Plantar aspect of the left foot is a large deep wound, with moderate amounts of slough. I was able to debride some gently with saline soaked gauze. This wound was dressed with silver alginate, covered with gauze. the more superficial wounds were dressed with xerofrom. At this point, patient will likely need to have BKA or possible AKA to manage. Patient understands that if it needs to happen he will have surgical intervention. Glucose control continue IV Abx pain control leg elevation BKA? Patient seen and examined and I agree with the above assessment and plan. Patient with a large open wound of the left foot which is unlikely to improve with IV antibiotics. Appreciate Dr. Ruth's input. Discussed BKA today with Mr. Zapata. He understands that the wounds would be difficult to heal just with the antibiotics given the extent of the wound. He would like to try antibiotics for a short period of time but if no improvement was agreeable to proceed with BKA. We will continue to monitor the wounds. If BKA is performed we will certainly require extended rehab after discharge. <Maynor Cannon MD - Last Filed: 05/18/25 08:21> Time Spent With Patient Time: Total time managing care of this patient today ____ minutes. <Jun Adams PA-C - Last Filed: 05/18/25 07:49> Quality Stroke Does the patient have a stroke diagnosis?: No <Jun Adams PA-C - Last Filed: 05/18/25 07:49> VTE Prior VTE?: No <Jun Adams PA-C - Last Filed: 05/18/25 07:49> VTE Risk Level:: Medical - moderate - high <Jun Adams PA-C - Last Filed: 05/18/25 07:49> VTE Device Contraindication: Treatment Not Indicated <Jun Adams PA-C - Last Filed: 05/18/25 07:49> VTE Drug Contraindication: N/A - Med Ordered <Jun Adams PA-C - Last Filed: 05/18/25 07:49>
[2025-05-18 08:30] LABS: Glucose, Whole Blood 122 mg/dL (60-115)
[2025-05-18 08:56] LABS: Hematocrit 30.8 % (42.0-52.0); Hemoglobin 9.9 g/dl (14.0-18.0); Mean Corpuscular HGB Conc 32.1 g/dl (31.0-36.0); Mean Corpuscular Hemoglobin 25.4 pg (27.0-33.0); Mean Corpuscular Volume 79.2 fL (80.0-98.0); NRBC Abs Auto 0.000 X10*3/uL (0.0-0.012); NRBC Pct Auto 0.0 /100WBC (0.0-0.2); Platelet Count 454 X10*3/uL (160-400); Red Blood Count 3.89 X10*6/uL (4.60-5.80); White Blood Count 15.1 X10*3/uL (4.8-10.8)
[2025-05-18] MEDS: Sacubitril/Valsartan 24/26 1 TAB TABLET PO ×2 (09:04→21:56)
[2025-05-18] MEDS: Insulin Glargine,Hum.rec.anlog 100 UNIT/ML 10 ML VIAL 20 UNIT SUBCUT (09:04)
[2025-05-18] MEDS: Bumetanide 1 MG/4 ML VIAL IVPUSH ×2 (09:04→16:40)
[2025-05-18] MEDS: methADONE HCl 20 MG/2 ML ORAL.CONC 80 MG PO (09:04)
[2025-05-18 09:09] LABS: Creatinine Clr Calc Pharmacy 80.0; Estimated Glomerular Filt Rate > 60
[2025-05-18 09:11] LABS: Anion Gap 13 (12-20); Blood Urea Nitrogen 21 mg/dL (9-16); Calcium 7.9 mg/dL (8.4-10.2); Carbon Dioxide 26 mmol/L (22-29); Chloride 101 mmol/L (96-108); Creatinine Clr Calc Pharmacy 78.1; Estimated Glomerular Filt Rate 60; Potassium 3.5 mmol/L (3.3-5.1); Sodium 136 mmol/L (135-145)
--- NOTE | 2025-05-18 09:25 | HO.PM.IMPN ---
Subjective Subjective Date of Service: 05/18/25 Review of Systems Follow up leg infection no pain, nausea or vomiting Physical Exam Vital Signs: Vital Signs: Last Vital Signs Temp 97.0 F 05/18/25 08:00 Pulse 83 05/18/25 08:00 Resp 20 05/18/25 08:00 BP 144/69 H 05/18/25 08:00 Pulse Ox 94 05/18/25 08:00 O2 Del Method Nasal Cannula 05/18/25 08:00 O2 Flow Rate 7 05/18/25 08:00 BMI result Body Mass Index 24.1 Appearing in no acute distress lung sounds are clear to auscultation heart regular rate rhythm, clear S1, S2 positive bowel sounds, abdomen is soft, nontender neuro patient is alert x3, no focal deficits Left LE non healing diabetic foot wound Objective Data Active Medications Acetaminophen (Acetaminophen 325 Mg Tablet) 650 mg PO Q6H PRN PRN Reason: Pain, Mild 1-3,fever,headache Albuterol/Ipratropium (Albuterol/Iprat 2.5/0.5mg 3 Ml Ampul.Neb) 3 ml INHALE RQ4H WHILE AWAKE PRN PRN Reason: Shortness of Breath Amitriptyline HCl (Amitriptyline Hcl 50 Mg Tablet) 50 mg PO BEDTIME [facility] Last Admin: 05/17/25 20:46 Dose: 50 mg Documented By: ELIOT Bumetanide (Bumetanide 1 Mg/4 Ml Vial) 1 mg IVPUSH BID@0900,1700 [facility]; Protocol Last Admin: 05/18/25 09:04 Dose: 1 mg Documented By: KANDI Calcium Carbonate (Calcium Carbonate 750 Mg Tab.Chew) 750 mg PO Q4H PRN PRN Reason: Heartburn Dextrose (Dextrose 50 % 25 Gm/50 Ml Syringe) 25 gm IVPUSH Q15M PRN; Protocol PRN Reason: per Hypoglycemia Standing Ord. Dextrose (Dextrose 50 % 25 Gm/50 Ml Syringe) 25 gm IVPUSH Q15M PRN; Protocol PRN Reason: per Hypoglycemia Standing Ord. Empagliflozin (Empagliflozin 10 Mg Tablet) 10 mg PO DAILY [facility] Last Admin: 05/18/25 09:04 Dose: 10 mg Documented By: KANDI Enoxaparin Sodium (Enoxaparin Sodium 40 Mg/0.4 Ml Syringe) 40 mg SUBCUT BEDTIME [facility] Last Admin: 05/17/25 20:46 Dose: 40 mg Documented By: ELIOT Glucose (Glucose Gel 15 Gm Gel..Gram.) 15 gm PO Q15M PRN; Protocol PRN Reason: per Hypoglycemia Standing Ord. Hydromorphone HCl (Hydromorphone Hcl 1 Mg/Ml Syringe) 0.5 mg IVPUSH Q4H PRN; Protocol PRN Reason: Pain, Severe (Pain Scale 7-10) Last Admin: 05/17/25 15:41 Dose: 0.5 mg Documented By: LEONOR Piperacillin Sod/Tazobactam (Sod 3.375 gm/ Sodium Chloride) 50 mls @ 100 mls/hr IV Q6H [facility] Last Infusion: 05/18/25 05:47 Dose: Infused Documented By: ELIOT Vancomycin HCl 1,250 mg/ (Sodium Chloride) 250 mls @ 166.667 mls/hr IV Q24H [facility] Last Infusion: 05/17/25 23:23 Dose: Infused Documented By: ELIOT Insulin Glargine (Insulin Glargine,Hum.Rec.Anlog 100 Unit/Ml 10 Ml Vial) 20 unit SUBCUT DAILY [facility] Last Admin: 05/18/25 09:04 Dose: 20 unit Documented By: KANDI Insulin Human Lispro (Insulin Lispro 100 Unit/Ml 3 Ml Vial) 0 unit SUBCUT QIDACHS [facility]; Protocol Last Admin: 05/18/25 08:32 Dose: Not Given Documented By: KANDI Non-Admin Reason: No Insulin Coverage Magnesium Hydroxide (Milk Of Magnesia 30 Ml Oral.Susp) 30 ml PO DAILY PRN PRN Reason: Constipation Melatonin (Melatonin 3 Mg Tablet) 6 mg PO BEDTIME PRN PRN Reason: Insomnia Methadone HCl (Methadone Hcl 20 Mg/2 Ml Oral.Conc) 80 mg PO DAILY [facility] Last Admin: 05/18/25 09:04 Dose: 80 mg Documented By: KANDI Co-signed By: MAXIMILIANO Pharmacy Consult (Consult Rx Vancomycin Dosing) 1 each MISCELLANE DAILY PRN PRN Reason: Consult order Polyethylene Glycol (Polyethylene Glycol 3350 17 Gm Powd.Pack) 17 gm PO DAILY PRN PRN Reason: Constipation Sacubitril/Valsartan (Sacubitril/Valsartan 1 Tab Tablet) 1 tab PO BID [facility]; Protocol Last Admin: 05/18/25 09:04 Dose: 1 tab Documented By: KANDI Sodium Chloride (0.9 % Sodium Chloride Flush 3 Ml Syringe) 3 ml IVFLUSH QSHIFT [facility] Last Admin: 05/18/25 09:04 Dose: 3 ml Documented By: KANDI Labs 05/18/25 08:49 05/18/25 08:49 Labs: Laboratory Results - last 24 hr 05/17/25 05/17/25 05/17/25 11:25 16:24 20:14 MCV MCH MCHC RDW Plt Count MPV Absolute Nucleated RBC Nucleated RBC % (auto) Anion Gap Estim Creat Clear Calc Estimated GFR POC Glucose 149 H 153 H 153 H Random Glucose Calcium 05/18/25 05/18/25 05/18/25 08:21 08:49 08:49 MCV 79.2 L MCH 25.4 L MCHC 32.1 RDW 14.8 Plt Count 454 H MPV 9.8 Absolute Nucleated RBC 0.000 Nucleated RBC % (auto) 0.0 Anion Gap 13 Estim Creat Clear Calc 78.1 80.0 Estimated GFR 60 POC Glucose 122 H Random Glucose Calcium 05/18/25 08:49 MCV MCH MCHC RDW Plt Count MPV Absolute Nucleated RBC Nucleated RBC % (auto) Anion Gap Estim Creat Clear Calc Estimated GFR > 60 POC Glucose Random Glucose 173 H Calcium 7.9 L Microbiology Microbiology Results: Microbiology 05/14/25 23:11 Blood Culture - Final Blood - Venous Staphylococcus aureus 05/14/25 23:08 Blood Culture - Final Blood - Venous Group G streptococcus Assessment and Plan (1) Diabetic foot ulcer: Status: Acute Plan 64-year-old male with a past medical history of HTN, HLD, dm, right BKA, chronic diabetic left foot ulcer, history of left TMA, AFib-not on anticoagulation presented to the hospital today with a chief complaint of left foot pain redness and swelling. Noted to have acute osteomyelitis of the left foot stump and cellulitis. Staph aureus, group G Streptococcus bacteremia 2/2, MRSA negative, Staph aureus positive Continue Zosyn Left foot stump acute osteomyelitis Nonhealing Left leg cellulitis from Diabetic foot ulcer Empirically covered with vancomycin and Zosyn Vascular surgery> no interventions ID> continue vancomycin and Zosyn, check TTE, duration of antibiotics will be 6 weeks possible daptomycin General surgery>plan for BKA cardio clearance for surgery Microcytic Anemia, non blood loss Transfused 2 units of PRBCs with diuresis and between Discussed with Cardiology as patient's symptoms maybe secondary to myocardial ischemia, recommended to transfuse to keep hematocrit above 30 Hematocrit 31 today Acute hypoxic respiratory failure secondary to heart failure with reduced ejection fraction Echocardiogram with EF of 25-30% New onset CHF CT chest showed no evidence of PE or pneumonia but noted to have pulmonary edema and small pleural effusion. Daily weights and I's and O's Cardiology consult> Added Jardiance 10 mg daily, s/p 2 units of packed red blood cells, continue diuresis Bumex 1mg BID Diabetes 2 Insulin sliding scale and lantus Opiate dependence Patient on methadone. Hypertension Patient on diltiazem hold due to acute CHF DVT prophylaxis: Lovenox Code status: Full code Quality Stroke Does the patient have a stroke diagnosis?: No VTE Prior VTE?: No VTE Risk Level:: Medical - moderate - high VTE Device Contraindication: Treatment Not Indicated VTE Drug Contraindication: N/A - Med Ordered
--- NOTE | 2025-05-18 11:15 | HO.VASCPN ---
Subjective Subjective Date of Service: 05/18/25 Interval history: Pasquale is doing ok this morning. He does endorse some left foot pain at the site of the wounds. He states it is rough. He states that he would like to take things slow prior to discussing an amputation of the foot; he knows he will need on at some point. He is eating, drinking, and sleeping well. He has no new concerns this morning. Physical Exam Vital Signs: Vital Signs: Last Vital Signs Temp 97.0 F 05/18/25 08:00 Pulse 83 05/18/25 08:00 Resp 20 05/18/25 08:00 BP 144/69 H 05/18/25 08:00 Pulse Ox 94 05/18/25 08:00 O2 Del Method Nasal Cannula 05/18/25 08:00 O2 Flow Rate 7 05/18/25 08:00 BMI result Body Mass Index 24.1 Const: General: comfortable and no acute distress Orientation/consciousness: patient oriented x3 HEENT: Ears: hearing grossly normal bilaterally Resp: Effort & Inspection: normal respiratory effort and able to speak in complete sentences Auscultation: clear to auscultation bilaterally Cardio: Rate: regular rate Rhythm: regular rhythm Heart sounds: S1 normal heart sound present and S2 normal heart sound present Bruits: no abdominal aortic bruits, no carotid bruits, no femoral bruits and no renal bruits GI: Palpation (GI): No Abdominal aortic bruit present Neuro: General: patient oriented x3 Cranial nerves: Yes CN's II-XII intact bilaterally Extrem: Other: Left lower extremity: wrapped, not taken down this morning; wound care nurse will be changing the dressing later. Progress Note: A&P Assessment and plan (1) Acute osteomyelitis of left foot: Status: Acute Assessment and Plan: Pasquale remains stable from a vascular standpoint. We are in agreement with the Gen Sx team that the pt will require at least a BKA; he may require an AKA due to the wounds/dermatitis going up the calf of the left lower extremity, there is a lower likelihood they will heal. The pt is aware and in agreement of an amputation; however, he states he would like to take his time and let the Abx work. I did discuss with him this morning that the wounds are very progressed and very unlikely to heal, even with the abx. We will continue to monitor. If there are any questions or concerns, please do not hesitate to reach out to us. Time Spent With Patient Time: Total time managing care of this patient today ____ minutes. Procedures Date of Service Date of Service: 05/18/25 Quality Stroke Does the patient have a stroke diagnosis?: No VTE Prior VTE?: No VTE Risk Level:: Medical - moderate - high VTE Device Contraindication: Treatment Not Indicated VTE Drug Contraindication: N/A - Med Ordered
[2025-05-18 11:27] LABS: Glucose, Whole Blood 246 mg/dL (60-115)
--- NOTE | 2025-05-18 13:55 | PM.PNCARD ---
Subjective Subjective Date of Service: 05/18/25 Principal diagnosis: CHF Interval history: Seen examined at bedside. He is saying he is feeling better. Physical Exam Vital Signs: Last Vital Signs Temp 98.2 F 05/18/25 12:00 Pulse 82 05/18/25 12:00 Resp 17 05/18/25 12:00 BP 123/74 05/18/25 12:00 Pulse Ox 93 05/18/25 12:00 O2 Del Method Nasal Cannula 05/18/25 12:00 O2 Flow Rate 3 05/18/25 12:00 BMI result Body Mass Index 24.1 GENERAL APPEARANCE: in no acute distress, pleasant. NECK: no carotid bruit, positive jugular venous distention. SKIN: no suspicious lesions, warm and dry. HEART: no murmurs, regular rate and rhythm. LUNGS: Crackles both lungs. ABDOMEN: soft, nontender. EXTREMITIES: Right amputation. Left transmetatarsal amputation with wound currently dressed. PERIPHERAL PULSES: equal. NEUROLOGIC: No gross deficits, AAO X 3 Objective Labs and Meds 05/18/25 08:49 05/18/25 08:49 Lab results: Laboratory Results - last 24 hr 05/17/25 05/17/25 05/18/25 16:24 20:14 08:21 WBC RBC Hgb Hct MCV MCH MCHC RDW Plt Count MPV Absolute Nucleated RBC Nucleated RBC % (auto) Sodium Potassium Chloride Carbon Dioxide Anion Gap BUN Creatinine Estim Creat Clear Calc Estimated GFR POC Glucose 153 H 153 H 122 H Random Glucose Calcium 05/18/25 05/18/25 05/18/25 08:49 08:49 08:49 WBC 15.1 H RBC 3.89 L Hgb 9.9 L Hct 30.8 L MCV 79.2 L MCH 25.4 L MCHC 32.1 RDW 14.8 Plt Count 454 H MPV 9.8 Absolute Nucleated RBC 0.000 Nucleated RBC % (auto) 0.0 Sodium 136 Potassium 3.5 D Chloride 101 Carbon Dioxide 26 Anion Gap 13 BUN 21 H Creatinine 1.22 1.19 Estim Creat Clear Calc 78.1 80.0 Estimated GFR 60 POC Glucose Random Glucose Calcium 05/18/25 05/18/25 08:49 11:21 WBC RBC Hgb Hct MCV MCH MCHC RDW Plt Count MPV Absolute Nucleated RBC Nucleated RBC % (auto) Sodium Potassium Chloride Carbon Dioxide Anion Gap BUN Creatinine Estim Creat Clear Calc Estimated GFR > 60 POC Glucose 246 H Random Glucose 173 H Calcium 7.9 L Progress Note: A&P Assessment and plan (1) Congestive heart failure: Status: Acute (2) Preop cardiovascular exam: Status: Acute Plan [age] year gentleman with diabetic foot infection for which he we will require amputation and congestive heart failure which is a new diagnosis. Echocardiography has shown EF 25-30%. Clinically he is improving with diuresis and addition of guideline directed medical therapy. With potential plan of surgery I would hold the Jardiance because it will be required by anesthesia to hold it for 3 days. Adding spironolactone 25 mg daily. We will do a Lexiscan for risk stratification before amputation. Keep NPO after midnight. I think we can continue IV diuretics today and reassess him tomorrow. Thank you for allowing me to participate in the care of your patient. Please feel free to contact me if you have any questions. Time Spent With Patient Time: Total time managing care of this patient today ____ minutes. Progress Note: Quality Stroke Does the patient have a stroke diagnosis?: No Procedures Date of Service Date of Service: 05/18/25
--- NOTE | 2025-05-18 14:06 | HO.WOUND ---
Wound Consult: Initial 64yr old?Male admitted to [facility] [place] on 05/15/25 - See progress notes and H&P for detailed history.? Wound consult placed for Left Lower Leg and plantar wounds POA.? Patient agreeable to assessment and photo documentation.? Patient is well known to this commercial underwriter from prior admissions. Left Lateral Plantar Foot Etiology: ?Diabetic wound Wound Bed: pale slough with areas of necrosis and exposed bone noted Drainage / Odor: clifton drainage noted mild odor noted Edges: ? unattached Shara wound: dry thick callused areas ? Pain: reports tenderness Goals of Treatment: Moisture management with Durafiber AG? pending Amputation with Vascular / General Surgery Left Leg Etiology: Venous vs Diabetic wounds Wound Bed: pale pink moist wound bed partial thickness tissue loss Drainage / Odor: yellow drainage noted on dressing - No odor Edges: ? well defined and attached Shara wound: Hemosiderin staining noted - scar tissue noted - No Induration, Fluctuance or Warmth noted Pain: reports pain Goals of Treatment: Moisture management with Durafiber AG pending Amputation with Vascular / General Surgery Recommendations: 1. Turn and Reposition every 2 hours and as needed for patient comfort.? Use pillows or wedges to support off loading positions. 2. Off Load all bony prominences with use of pillows and heel boots if needed.? Apply Preventative foams where needed. ? 3. Monitor for incontinence and moisture control, use barrier creams when needed for prevention and treatment. 4. Provide adequate and supplemental nutrition.? 5. Continue low air loss mattress. 6. Maintain blood glucose levels per Providers order. 7. Left Plantar Foot and Left Lower Leg - Elevate lower legs - Off Load Pressure and limit ambulating on foot. Cleanse with saline, pat dry. ?Apply barrier cream to wound bed. Cover wound bed with Durafiber AG, Cover with Dry gauze, ABD pad and wrap. Change every other day. Re-consult wound care Nurse for wound deterioration or wound changes.
[2025-05-18 16:14] LABS: Glucose, Whole Blood 159 mg/dL (60-115)
[2025-05-18 21:23] LABS: Glucose, Whole Blood 147 mg/dL (60-115)
[2025-05-19 03:33] VITALS: BP 133/80; PULSE 67; RESP 18; TEMP 36.3; O2SAT 96
[2025-05-19 06:27] LABS: Creatinine Clr Calc Pharmacy 68.0; Estimated Glomerular Filt Rate 51
[2025-05-19 07:14] VITALS: BP 136/79; PULSE 78; RESP 17; TEMP 36.5; O2SAT 94
[2025-05-19 07:36] LABS: Glucose, Whole Blood 113 mg/dL (60-115)
--- NOTE | 2025-05-19 09:40 | CA_ITS ---
Acquisition Time: 2025-05-19 09:25:56 Total Exercise Time: 00:21:35 Test Indications: CHF,Pre-Op Evaluation Medications: SEE EMAR Protocol: DOBUTAMINE Max HR: 125 BPM 79% of Pred: 157 BPM Max BP: 162/72 mmHG Max Work Load: 1.0 METS Pharmacological stress test with Dobutamine per protocol- started at 5mcg/kg/min and max dose of 30mcg/kg/min, achieving 75% MPHR, stopped at 1745 mins of infusion due to reports of 7/10 mid chest heaviness and frequent ectopies with PACs and PVCs, with drop in BP to 134/66 from 162/72. Nondiagnostic EKG for ischemia. In recovery, chest heaviness resolved graduallly, BP stabilized. HR back to baseline. Echo images were obtained by tech at rest, mid infusion and post peak HR. Definity contrast utilized. Test reviewed with Dr. Simpson. Referred By: Baljit Horne Electronically Signed By: Baljit Horne
--- NOTE | 2025-05-19 10:34 | P.PNIM_ITS ---
Subjective Subjective Date of Service: 05/19/25 Review of Systems Follow up leg infection no pain, nausea or vomiting Physical Exam 2 Vital Signs: Vital Signs: Last Vital Signs Temp 97.7 F 05/19/25 07:14 Pulse 78 05/19/25 07:14 Resp 17 05/19/25 07:14 BP 136/79 05/19/25 07:14 Pulse Ox 94 05/19/25 07:14 O2 Del Method Oxymask 05/19/25 07:14 O2 Flow Rate 4 05/19/25 07:14 BMI result Body Mass Index 24.1 Appearing in no acute distress lung sounds are clear to auscultation heart regular rate rhythm, clear S1, S2 positive bowel sounds, abdomen is soft, nontender neuro patient is alert x3, no focal deficits Objective Data Active Medications Acetaminophen (Acetaminophen 325 Mg Tablet) 650 mg PO Q6H PRN PRN Reason: Pain, Mild 1-3,fever,headache Albuterol/Ipratropium (Albuterol/Iprat 2.5/0.5mg 3 Ml Ampul.Neb) 3 ml INHALE RQ4H WHILE AWAKE PRN PRN Reason: Shortness of Breath Amitriptyline HCl (Amitriptyline Hcl 50 Mg Tablet) 50 mg PO BEDTIME [facility] Last Admin: 05/18/25 21:55 Dose: 50 mg Documented By: GENOVEVA Bumetanide (Bumetanide 1 Mg/4 Ml Vial) 1 mg IVPUSH BID@0900,1700 [facility]; Protocol Last Admin: 05/18/25 16:40 Dose: 1 mg Documented By: KANDI Calcium Carbonate (Calcium Carbonate 750 Mg Tab.Chew) 750 mg PO Q4H PRN PRN Reason: Heartburn Dextrose (Dextrose 50 % 25 Gm/50 Ml Syringe) 25 gm IVPUSH Q15M PRN; Protocol PRN Reason: per Hypoglycemia Standing Ord. Dextrose (Dextrose 50 % 25 Gm/50 Ml Syringe) 25 gm IVPUSH Q15M PRN; Protocol PRN Reason: per Hypoglycemia Standing Ord. Empagliflozin (Empagliflozin 10 Mg Tablet) 10 mg PO DAILY [facility] On Hold: 05/18/25 13:54 Last Admin: 05/18/25 09:04 Dose: 10 mg Documented By: KANDI Enoxaparin Sodium (Enoxaparin Sodium 40 Mg/0.4 Ml Syringe) 40 mg SUBCUT BEDTIME [facility] Last Admin: 05/18/25 21:56 Dose: 40 mg Documented By: GENOVEVA Glucose (Glucose Gel 15 Gm Gel..Gram.) 15 gm PO Q15M PRN; Protocol PRN Reason: per Hypoglycemia Standing Ord. Hydromorphone HCl (Hydromorphone Hcl 1 Mg/Ml Syringe) 0.5 mg IVPUSH Q4H PRN; Protocol PRN Reason: Pain, Severe (Pain Scale 7-10) Last Admin: 05/17/25 15:41 Dose: 0.5 mg Documented By: LEONOR Piperacillin Sod/Tazobactam (Sod 3.375 gm/ Sodium Chloride) 50 mls @ 100 mls/hr IV Q6H [facility] Last Infusion: 05/19/25 06:21 Dose: Infused Documented By: GENOVEVA Vancomycin HCl 1,250 mg/ (Sodium Chloride) 250 mls @ 166.667 mls/hr IV Q24H [facility] Last Infusion: 05/18/25 23:59 Dose: Infused Documented By: GENOVEVA Insulin Glargine (Insulin Glargine,Hum.Rec.Anlog 100 Unit/Ml 10 Ml Vial) 20 unit SUBCUT DAILY [facility] Last Admin: 05/18/25 09:04 Dose: 20 unit Documented By: KANDI Insulin Human Lispro (Insulin Lispro 100 Unit/Ml 3 Ml Vial) 0 unit SUBCUT QIDACHS [facility]; Protocol Last Admin: 05/19/25 09:15 Dose: Not Given Documented By: DEMETRIUS Non-Admin Reason: No Insulin Coverage Magnesium Hydroxide (Milk Of Magnesia 30 Ml Oral.Susp) 30 ml PO DAILY PRN PRN Reason: Constipation Melatonin (Melatonin 3 Mg Tablet) 6 mg PO BEDTIME PRN PRN Reason: Insomnia Methadone HCl (Methadone Hcl 20 Mg/2 Ml Oral.Conc) 80 mg PO DAILY [facility] Last Admin: 05/18/25 09:04 Dose: 80 mg Documented By: KANDI Co-signed By: MAXIMILIANO Pharmacy Consult (Consult Rx Vancomycin Dosing) 1 each MISCELLANE DAILY PRN PRN Reason: Consult order Polyethylene Glycol (Polyethylene Glycol 3350 17 Gm Powd.Pack) 17 gm PO DAILY PRN PRN Reason: Constipation Sacubitril/Valsartan (Sacubitril/Valsartan 1 Tab Tablet) 1 tab PO BID [facility]; Protocol Last Admin: 05/18/25 21:56 Dose: 1 tab Documented By: GENOVEVA Sodium Chloride (0.9 % Sodium Chloride Flush 3 Ml Syringe) 3 ml IVFLUSH QSHIFT [facility] Last Admin: 05/18/25 21:56 Dose: 3 ml Documented By: GENOVEVA Spironolactone (Spironolactone 25 Mg Tablet) 25 mg PO DAILY [facility]; Protocol Last Admin: 05/18/25 14:12 Dose: 25 mg Documented By: KANDI Labs 05/18/25 08:49 05/19/25 06:04 Labs: Laboratory Results - last 24 hr 05/18/25 05/18/25 05/18/25 11:21 16:10 19:47 Hold Purple Top Estim Creat Clear Calc Estimated GFR POC Glucose 246 H 159 H Random Vancomycin 14.6 L 05/18/25 05/19/25 05/19/25 21:10 06:04 07:16 Hold Purple Top SEE NOTE Estim Creat Clear Calc 68.0 Estimated GFR 51 POC Glucose 147 H 113 Random Vancomycin Microbiology Microbiology Results: Microbiology 05/14/25 23:11 Blood Culture - Final Blood - Venous Staphylococcus aureus Assessment and Plan (1) Diabetic foot ulcer: Status: Acute Plan 64-year-old male with a past medical history of HTN, HLD, dm, right BKA, chronic diabetic left foot ulcer, history of left TMA, AFib-not on anticoagulation presented to the hospital today with a chief complaint of left foot pain redness and swelling. Noted to have acute osteomyelitis of the left foot stump and cellulitis. Staph aureus, group G Streptococcus bacteremia 2/2, MRSA negative, Staph aureus positive Continue Zosyn Left foot stump acute osteomyelitis Nonhealing Left leg cellulitis from Diabetic foot ulcer Empirically covered with vancomycin and Zosyn Vascular surgery> no interventions ID> continue vancomycin and Zosyn, check TTE, duration of antibiotics will be 6 weeks possible daptomycin General surgery>plan for BKA cardio clearance for surgery> lexiscan Microcytic Anemia, non blood loss Transfused 2 units of PRBCs with diuresis and between Discussed with Cardiology as patient's symptoms maybe secondary to myocardial ischemia, recommended to transfuse to keep hematocrit above 30 Hematocrit 31 today Acute hypoxic respiratory failure secondary to heart failure with reduced ejection fraction Echocardiogram with EF of 25-30% New onset CHF CT chest showed no evidence of PE or pneumonia but noted to have pulmonary edema and small pleural effusion. Daily weights and I's and O's Cardiology consult> Added Jardiance 10 mg daily, s/p 2 units of packed red blood cells, continue diuresis Bumex 1mg BID Diabetes 2 Insulin sliding scale and lantus Opiate dependence Patient on methadone. Hypertension Patient on diltiazem, hold due to acute CHF DVT prophylaxis: Lovenox Code status: Full code Quality Stroke Does the patient have a stroke diagnosis?: No VTE Prior VTE?: No VTE Risk Level:: Medical - moderate - high VTE Device Contraindication: Treatment Not Indicated VTE Drug Contraindication: N/A - Med Ordered
[2025-05-19] MEDS: methADONE HCl 20 MG/2 ML ORAL.CONC 80 MG PO (10:48)
[2025-05-19] MEDS: 0.9 % Sodium Chloride Flush 3 ML SYRINGE IVFLUSH ×3 (10:50→20:54)
[2025-05-19] MEDS: Bumetanide 1 MG/4 ML VIAL IVPUSH ×2 (10:50→16:29)
[2025-05-19] MEDS: Insulin Glargine,Hum.rec.anlog 100 UNIT/ML 10 ML VIAL 20 UNIT SUBCUT (10:51)
[2025-05-19] MEDS: Sacubitril/Valsartan 24/26 1 TAB TABLET PO (10:51)
[2025-05-19 11:12] VITALS: BP 137/74; PULSE 83; RESP 17; TEMP 36.4; O2SAT 94
[2025-05-19 11:17] LABS: Glucose, Whole Blood 109 mg/dL (60-115)
--- NOTE | 2025-05-19 14:20 | P.PNCA_ITS ---
Subjective Subjective Date of Service: 05/19/25 Principal diagnosis: CHF Interval history: Seen examined at bedside. He went for Lexiscan but he could not do the study due to claustrophobia. He was changed to dobutamine stress echo. Physical Exam Vital Signs: Last Vital Signs Temp 97.6 F 05/19/25 11:12 Pulse 83 05/19/25 11:12 Resp 17 05/19/25 11:12 BP 137/74 05/19/25 11:12 Pulse Ox 94 05/19/25 11:12 O2 Del Method Oxymask 05/19/25 11:12 O2 Flow Rate 2 05/19/25 11:12 BMI result Body Mass Index 24.1 GENERAL APPEARANCE: in no acute distress, pleasant. NECK: no carotid bruit, positive jugular venous distention. SKIN: no suspicious lesions, warm and dry. HEART: no murmurs, regular rate and rhythm. LUNGS: Crackles both lungs. ABDOMEN: soft, nontender. EXTREMITIES: Right amputation. Left transmetatarsal amputation with wound currently dressed. PERIPHERAL PULSES: equal. NEUROLOGIC: No gross deficits, AAO X 3 Objective Labs and Meds 05/18/25 08:49 05/19/25 06:04 Lab results: Laboratory Results - last 24 hr 05/18/25 05/18/25 05/18/25 16:10 19:47 21:10 Hold Purple Top Creatinine Estim Creat Clear Calc Estimated GFR POC Glucose 159 H 147 H Random Vancomycin 14.6 L 05/19/25 05/19/25 05/19/25 06:04 07:16 11:14 Hold Purple Top SEE NOTE Creatinine 1.40 Estim Creat Clear Calc 68.0 Estimated GFR 51 POC Glucose 113 109 Random Vancomycin Progress Note: A&P Assessment and plan (1) Congestive heart failure: Status: Acute Plan [age] year gentleman with diabetic foot infection which may require amputation and new diagnosis of congestive heart failure with [id number] LV dysfunction. Denying any anginal symptoms. Clinically improving although still has crackles on examination with JVD. I think we continue IV Bumex today and potentially change him to oral Bumex tomorrow. Titrating the Entresto. Continue the spironolactone. With him getting surgery in the next day or 2 I think we should not introduced beta- blockers currently. We will review the dobutamine stress echocardiogram. Thank you for allowing me to participate in the care of your patient. Please feel free to contact me if you have any questions. Time Spent With Patient Time: Total time managing care of this patient today ____ minutes. Progress Note: Quality Stroke Does the patient have a stroke diagnosis?: No Procedures Date of Service Date of Service: 05/19/25
--- NOTE | 2025-05-19 14:44 | P.PNGS_ITS ---
Subjective Subjective Date of Service: 05/19/25 Patient reports: no new complaints Interval history: denies pain. he has been trying to keep the leg elevated Physical Exam 2 Vital Signs: Vital Signs: Last Vital Signs Temp 97.6 F 05/19/25 11:12 Pulse 83 05/19/25 11:12 Resp 17 05/19/25 11:12 BP 137/74 05/19/25 11:12 Pulse Ox 94 05/19/25 11:12 O2 Del Method Oxymask 05/19/25 11:12 O2 Flow Rate 2 05/19/25 11:12 BMI result Body Mass Index 24.1 Const: General: comfortable and no acute distress O rientation/consciousness: patient oriented x3 Resp: Effort & Inspection: normal respiratory effort and able to speak in complete sentences Skin: Other: Neuro: General: patient oriented x3 Extrem: Other: LLE: left TMA. Large ulcer on the plantar aspect of the foot. moderate amounts of slough. Redness extending upwards multiple other small ulcers along the fenton. On the lateral aspect of the left extremity, a larger more superficial wound without slough. Right lower extremity: abnormal to inspection (right bka) Objective Data Active Medications Acetaminophen (Acetaminophen 325 Mg Tablet) 650 mg PO Q6H PRN PRN Reason: Pain, Mild 1-3,fever,headache Albuterol/Ipratropium (Albuterol/Iprat 2.5/0.5mg 3 Ml Ampul.Neb) 3 ml INHALE RQ4H WHILE AWAKE PRN PRN Reason: Shortness of Breath Amitriptyline HCl (Amitriptyline Hcl 50 Mg Tablet) 50 mg PO BEDTIME [facility] Last Admin: 05/18/25 21:55 Dose: 50 mg Documented By: GENOVEVA Bumetanide (Bumetanide 1 Mg/4 Ml Vial) 1 mg IVPUSH BID@0900,1700 [facility]; Protocol Last Admin: 05/19/25 10:50 Dose: 1 mg Documented By: DEMETRIUS Calcium Carbonate (Calcium Carbonate 750 Mg Tab.Chew) 750 mg PO Q4H PRN PRN Reason: Heartburn Dextrose (Dextrose 50 % 25 Gm/50 Ml Syringe) 25 gm IVPUSH Q15M PRN; Protocol PRN Reason: per Hypoglycemia Standing Ord. Dextrose (Dextrose 50 % 25 Gm/50 Ml Syringe) 25 gm IVPUSH Q15M PRN; Protocol PRN Reason: per Hypoglycemia Standing Ord. Empagliflozin (Empagliflozin 10 Mg Tablet) 10 mg PO DAILY [facility] On Hold: 05/18/25 13:54 Last Admin: 05/18/25 09:04 Dose: 10 mg Documented By: KANDI Enoxaparin Sodium (Enoxaparin Sodium 40 Mg/0.4 Ml Syringe) 40 mg SUBCUT BEDTIME [facility] Last Admin: 05/18/25 21:56 Dose: 40 mg Documented By: GENOVEVA Glucose (Glucose Gel 15 Gm Gel..Gram.) 15 gm PO Q15M PRN; Protocol PRN Reason: per Hypoglycemia Standing Ord. Hydromorphone HCl (Hydromorphone Hcl 1 Mg/Ml Syringe) 0.5 mg IVPUSH Q4H PRN; Protocol PRN Reason: Pain, Severe (Pain Scale 7-10) Last Admin: 05/17/25 15:41 Dose: 0.5 mg Documented By: LEONOR Piperacillin Sod/Tazobactam (Sod 3.375 gm/ Sodium Chloride) 50 mls @ 100 mls/hr IV Q6H [facility] Last Infusion: 05/19/25 11:34 Dose: Infused Documented By: DEMETRIUS Vancomycin HCl 1,250 mg/ (Sodium Chloride) 250 mls @ 166.667 mls/hr IV Q24H [facility] Last Infusion: 05/18/25 23:59 Dose: Infused Documented By: GENOVEVA Insulin Glargine (Insulin Glargine,Hum.Rec.Anlog 100 Unit/Ml 10 Ml Vial) 20 unit SUBCUT DAILY [facility] Last Admin: 05/19/25 10:51 Dose: 20 unit Documented By: DEMETRIUS Insulin Human Lispro (Insulin Lispro 100 Unit/Ml 3 Ml Vial) 0 unit SUBCUT QIDACHS [facility]; Protocol Last Admin: 05/19/25 11:35 Dose: Not Given Documented By: DEMETRIUS Non-Admin Reason: No Insulin Coverage Magnesium Hydroxide (Milk Of Magnesia 30 Ml Oral.Susp) 30 ml PO DAILY PRN PRN Reason: Constipation Melatonin (Melatonin 3 Mg Tablet) 6 mg PO BEDTIME PRN PRN Reason: Insomnia Methadone HCl (Methadone Hcl 20 Mg/2 Ml Oral.Conc) 80 mg PO DAILY [facility] Last Admin: 05/19/25 10:48 Dose: 80 mg Documented By: DEMETRIUS Co-signed By: BRITNEY Pharmacy Consult (Consult Rx Vancomycin Dosing) 1 each MISCELLANE DAILY PRN PRN Reason: Consult order Polyethylene Glycol (Polyethylene Glycol 3350 17 Gm Powd.Pack) 17 gm PO DAILY PRN PRN Reason: Constipation Sacubitril/Valsartan (Sacubitril/Valsartan 49/51 1 Tab Tablet) 1 tab PO BID [facility]; Protocol Sodium Chloride (0.9 % Sodium Chloride Flush 3 Ml Syringe) 3 ml IVFLUSH QSHIFT [facility] Last Admin: 05/19/25 10:50 Dose: 3 ml Documented By: DEMETRIUS Spironolactone (Spironolactone 25 Mg Tablet) 25 mg PO DAILY [facility]; Protocol Last Admin: 05/19/25 10:51 Dose: 25 mg Documented By: DEMETRIUS Labs 05/18/25 08:49 05/19/25 06:04 Labs: Laboratory Results - last 24 hr 05/18/25 05/18/25 05/18/25 16:10 19:47 21:10 Hold Purple Top Estim Creat Clear Calc Estimated GFR POC Glucose 159 H 147 H Random Vancomycin 14.6 L 05/19/25 05/19/25 05/19/25 06:04 07:16 11:14 Hold Purple Top SEE NOTE Estim Creat Clear Calc 68.0 Estimated GFR 51 POC Glucose 113 109 Random Vancomycin Procedures Date of Service Date of Service: 05/19/25 Progress Note: A&P Assessment and plan (1) Diabetic foot ulcer: Status: Acute (2) Acute osteomyelitis of left foot: Status: Acute Plan 64-year-old male with a past medical history of HTN, HLD, dm, right BKA, chronic diabetic left foot ulcer, history of left TMA, AFib-not on anticoagulation, being followed for left foot ulcer with 4th metatarsal osteomyelitis. Patient relatively the same from yesterday. Patient experiencing mild pain in the foot. denies fever, chills. Vascular consult appreciated. Wounds are similar to yesterday, more superficial wounds on the proximal aspect of the calf and fenton. Plantar aspect of the left foot is a large deep wound, with moderate amounts of slough. I was able to debride some gently with saline soaked gauze.Wound care input appreciated. wound was dressed with silver alginate, covered with gauze. At this point, patient will likely need to have BKA or possible AKA to manage. Patient understands that if it needs to happen he will have surgical intervention. Glucose control continue IV Abx pain control leg elevation likely BKA or AKA saturday Time Spent With Patient Time: Total time managing care of this patient today ____ minutes. Quality Stroke Does the patient have a stroke diagnosis?: No VTE Prior VTE?: No VTE Risk Level:: Medical - moderate - high VTE Device Contraindication: Treatment Not Indicated VTE Drug Contraindication: N/A - Med Ordered
--- NOTE | 2025-05-19 14:50 | MHC.CM.PN ---
Per rounds, pt. is not ready to DC, he requires continued care for leg infection. CM to follow for DC needs.
[2025-05-19 15:32] VITALS: BP 136/64; PULSE 85; RESP 17; TEMP 36.3; O2SAT 95
[2025-05-19 16:15] LABS: Glucose, Whole Blood 147 mg/dL (60-115)
[2025-05-19 19:24] VITALS: BP 140/72; PULSE 79; RESP 20; TEMP 36.8; O2SAT 94
[2025-05-19] MEDS: Sacubitril/Valsartan 49/51 1 TAB TABLET PO (20:53)
[2025-05-19 21:31] LABS: Glucose, Whole Blood 149 mg/dL (60-115)
[2025-05-20] VITALS (7 sets, daily range): BP systolic 132–182; BP diastolic 66–83; PULSE 69–82; RESP 16–18; TEMP 36.3–36.7; O2SAT 91–97
[2025-05-20 07:47] LABS: Glucose, Whole Blood 107 mg/dL (60-115)
[2025-05-20 07:57] LABS: Anion Gap 12 (12-20); Blood Urea Nitrogen 22 mg/dL (9-16); Calcium 8.4 mg/dL (8.4-10.2); Carbon Dioxide 30 mmol/L (22-29); Chloride 101 mmol/L (96-108); Creatinine Clr Calc Pharmacy 70.0; Estimated Glomerular Filt Rate 53; Potassium 4.0 mmol/L (3.3-5.1); Sodium 139 mmol/L (135-145)
[2025-05-20 07:58] LABS: Creatinine Clr Calc Pharmacy 70.0; Estimated Glomerular Filt Rate 53
[2025-05-20 08:21] LABS: Hematocrit 33.1 % (42.0-52.0); Hemoglobin 10.4 g/dl (14.0-18.0); Mean Corpuscular HGB Conc 31.4 g/dl (31.0-36.0); Mean Corpuscular Hemoglobin 25.1 pg (27.0-33.0); Mean Corpuscular Volume 80.0 fL (80.0-98.0); NRBC Abs Auto 0.000 X10*3/uL (0.0-0.012); NRBC Pct Auto 0.0 /100WBC (0.0-0.2); Platelet Count 514 X10*3/uL (160-400); Red Blood Count 4.14 X10*6/uL (4.60-5.80); White Blood Count 12.0 X10*3/uL (4.8-10.8)
[2025-05-20] MEDS: Insulin Glargine,Hum.rec.anlog 100 UNIT/ML 10 ML VIAL 20 UNIT SUBCUT (08:58)
[2025-05-20] MEDS: methADONE HCl 20 MG/2 ML ORAL.CONC 80 MG PO (08:58)
[2025-05-20] MEDS: Sacubitril/Valsartan 49/51 1 TAB TABLET PO ×2 (08:58→22:35)
[2025-05-20] MEDS: 0.9 % Sodium Chloride Flush 3 ML SYRINGE IVFLUSH ×2 (08:58→16:15)
[2025-05-20] MEDS: Bumetanide 1 MG/4 ML VIAL IVPUSH (08:58)
[2025-05-20 12:06] LABS: Glucose, Whole Blood 149 mg/dL (60-115)
--- NOTE | 2025-05-20 12:47 | P.PNIM_ITS ---
Subjective Subjective Date of Service: 05/20/25 Interval History: Seen and examined this morning Follow-up for foot infection, bacteremia No specific complaints Patient does not want BKA at this time Review of Systems Review of Systems: Yes all other systems are reviewed and are negative Constitutional Constitutional: Denies chills and Denies fever(s) Cardiovascular Cardiovascular: Denies chest pain, Denies palpitations and Denies dyspnea Respiratory Respiratory: Denies cough and Denies dyspnea Endocrine Endocrine: Denies palpitations Physical Exam 2 Vital Signs: Vital Signs: Last Vital Signs Temp 97.5 F 05/20/25 12:00 Pulse 76 05/20/25 12:00 Resp 17 05/20/25 12:00 BP 138/77 05/20/25 12:00 Pulse Ox 91 L 05/20/25 12:00 O2 Del Method Room Air 05/20/25 12:00 O2 Flow Rate 2 05/19/25 15:32 BMI result Body Mass Index 24.1 Const: General: cooperative, comfortable, no acute distress, alert and awake Nutritional Appearance: average body habitus Orientation/consciousness: p atient oriented x3 Resp: Effort & Inspection: normal respiratory effort, able to speak in complete sentences, no respiratory distress and no use of accessory muscles Cardio: Rate: regular rate GI: Inspection: No distended Neuro: General: patient oriented x3 Extrem: Other: s/p right BKA; L transmetatarsal amp; left foot wrapped Objective Data Active Medications Acetaminophen (Acetaminophen 325 Mg Tablet) 650 mg PO Q6H PRN PRN Reason: Pain, Mild 1-3,fever,headache Albuterol/Ipratropium (Albuterol/Iprat 2.5/0.5mg 3 Ml Ampul.Neb) 3 ml INHALE RQ4H WHILE AWAKE PRN PRN Reason: Shortness of Breath Amitriptyline HCl (Amitriptyline Hcl 50 Mg Tablet) 50 mg PO BEDTIME [facility] Last Admin: 05/19/25 20:54 Dose: 50 mg Documented By: GENOVEVA Bumetanide (Bumetanide 1 Mg/4 Ml Vial) 1 mg IVPUSH BID@0900,1700 [facility]; Protocol Last Admin: 05/20/25 08:58 Dose: 1 mg Documented By: TARIQ Calcium Carbonate (Calcium Carbonate 750 Mg Tab.Chew) 750 mg PO Q4H PRN PRN Reason: Heartburn Dextrose (Dextrose 50 % 25 Gm/50 Ml Syringe) 25 gm IVPUSH Q15M PRN; Protocol PRN Reason: per Hypoglycemia Standing Ord. Dextrose (Dextrose 50 % 25 Gm/50 Ml Syringe) 25 gm IVPUSH Q15M PRN; Protocol PRN Reason: per Hypoglycemia Standing Ord. Empagliflozin (Empagliflozin 10 Mg Tablet) 10 mg PO DAILY [facility] On Hold: 05/18/25 13:54 Last Admin: 05/18/25 09:04 Dose: 10 mg Documented By: KANDI Enoxaparin Sodium (Enoxaparin Sodium 40 Mg/0.4 Ml Syringe) 40 mg SUBCUT BEDTIME [facility] Last Admin: 05/19/25 20:54 Dose: 40 mg Documented By: GENOVEVA Glucose (Glucose Gel 15 Gm Gel..Gram.) 15 gm PO Q15M PRN; Protocol PRN Reason: per Hypoglycemia Standing Ord. Piperacillin Sod/Tazobactam (Sod 3.375 gm/ Sodium Chloride) 50 mls @ 100 mls/hr IV Q6H [facility] Last Admin: 05/20/25 12:17 Dose: 100 mls/hr Documented By: TARIQ Vancomycin HCl 1,250 mg/ (Sodium Chloride) 250 mls @ 166.667 mls/hr IV Q24H [facility] Last Infusion: 05/19/25 22:38 Dose: Infused Documented By: GENOVEVA Insulin Glargine (Insulin Glargine,Hum.Rec.Anlog 100 Unit/Ml 10 Ml Vial) 20 unit SUBCUT DAILY [facility] Last Admin: 05/20/25 08:58 Dose: 20 unit Documented By: TARIQ Insulin Human Lispro (Insulin Lispro 100 Unit/Ml 3 Ml Vial) 0 unit SUBCUT QIDACHS [facility]; Protocol Last Admin: 05/20/25 12:12 Dose: Not Given Documented By: TARIQ Non-Admin Reason: No Insulin Coverage Magnesium Hydroxide (Milk Of Magnesia 30 Ml Oral.Susp) 30 ml PO DAILY PRN PRN Reason: Constipation Melatonin (Melatonin 3 Mg Tablet) 6 mg PO BEDTIME PRN PRN Reason: Insomnia Methadone HCl (Methadone Hcl 20 Mg/2 Ml Oral.Conc) 80 mg PO DAILY [facility] Last Admin: 05/20/25 08:58 Dose: 80 mg Documented By: TARIQ Co-signed By: ALINA Pharmacy Consult (Consult Rx Vancomycin Dosing) 1 each MISCELLANE DAILY PRN PRN Reason: Consult order Polyethylene Glycol (Polyethylene Glycol 3350 17 Gm Powd.Pack) 17 gm PO DAILY PRN PRN Reason: Constipation Sacubitril/Valsartan (Sacubitril/Valsartan 49/51 1 Tab Tablet) 1 tab PO BID [facility]; Protocol Last Admin: 05/20/25 08:58 Dose: 1 tab Documented By: TARIQ Sodium Chloride (0.9 % Sodium Chloride Flush 3 Ml Syringe) 3 ml IVFLUSH QSHIFT [facility] Last Admin: 05/20/25 08:58 Dose: 3 ml Documented By: TARIQ Spironolactone (Spironolactone 25 Mg Tablet) 25 mg PO DAILY [facility]; Protocol Last Admin: 05/20/25 08:58 Dose: 25 mg Documented By: TARIQ Labs 05/20/25 06:00 05/20/25 06:53 Labs: Laboratory Results - last 24 hr 05/19/25 05/19/25 05/19/25 16:04 19:54 20:38 MCV MCH MCHC RDW Plt Count MPV Absolute Nucleated RBC Nucleated RBC % (auto) Hold Purple Top Anion Gap Estim Creat Clear Calc Estimated GFR POC Glucose 147 H 149 H Random Glucose Calcium Random Vancomycin 15.2 05/20/25 05/20/25 05/20/25 06:00 06:53 06:53 MCV 80.0 MCH 25.1 L MCHC 31.4 RDW 15.2 Plt Count 514 H MPV 10.2 Absolute Nucleated RBC 0.000 Nucleated RBC % (auto) 0.0 Hold Purple Top SEE NOTE Anion Gap 12 Estim Creat Clear Calc 70.0 70.0 Estimated GFR 53 POC Glucose Random Glucose Calcium Random Vancomycin 05/20/25 05/20/25 05/20/25 06:53 07:39 11:33 MCV MCH MCHC RDW Plt Count MPV Absolute Nucleated RBC Nucleated RBC % (auto) Hold Purple Top Anion Gap Estim Creat Clear Calc Estimated GFR 53 POC Glucose 107 149 H Random Glucose 105 Calcium 8.4 D Random Vancomycin Assessment and Plan (1) Acute osteomyelitis of left foot: Status: Acute Plan 64-year-old male with a past medical history of HTN, HLD, dm, right BKA, chronic diabetic left foot ulcer, history of left TMA, AFib-not on anticoagulation presented to the hospital today with a chief complaint of left foot pain redness and swelling. Noted to have acute osteomyelitis of the left foot stump and cellulitis. Gram positive bacteremia blood cultures 1 growing MSSA, 1 growing group G Streptococcus bacteremia on IV zosyn started 05/15, stop IV vanco Surveillance blood cultures ordered Echo negative for vegetation Seen by ID, recommend 6 weeks IV antibiotics possibly daptomycin-will need PICC line prior to discharge Left foot stump acute osteomyelitis Left leg cellulitis/Diabetic foot ulcer Vascular surgery> no interventions General surgery-initially plan for BKA, patient does not want amputation at this time, plan for limb salvaging management with IV antibiotics and possible debridement Microcytic Anemia, non blood loss Transfused 2 units of PRBCs Discussed with Cardiology as patient's symptoms maybe secondary to myocardial ischemia, recommended to transfuse to keep hematocrit above 30 H/H stable Acute hypoxic respiratory failure secondary to new onset heart failure with reduced ejection fraction Echocardiogram with EF of 25-30% CT chest with pulmonary edema and small pleural effusion. Cardiology consult> Added Jardiance, aldactone and IV bumex s/p 2 units of packed red blood cells, goal to keep hct >30 Dobutamine stress test with no acute ischemia Diabetes 2 Insulin sliding scale and lantus Opiate dependence Continue methadone. Hypertension Patient on diltiazem, hold due to acute CHF DVT prophylaxis: Lovenox Code status: Full code Quality Stroke Does the patient have a stroke diagnosis?: No VTE Prior VTE?: No VTE Risk Level:: Medical - moderate - high VTE Device Contraindication: Treatment Not Indicated VTE Drug Contraindication: N/A - Med Ordered
[2025-05-20 15:26] LABS: Glucose, Whole Blood 194 mg/dL (60-115)
[2025-05-20 20:46] LABS: Glucose, Whole Blood 179 mg/dL (60-115)
[2025-05-20 22:39] LABS: Glucose, Whole Blood 172 mg/dL (60-115)
[2025-05-21] VITALS (12 sets, daily range): BP systolic 133–156; BP diastolic 68–84; PULSE 65–85; RESP 16–20; TEMP 36.1–36.6; O2SAT 90–98
[2025-05-21] MEDS: 0.9 % Sodium Chloride Flush 3 ML SYRINGE IVFLUSH ×4 (00:51→21:41)
[2025-05-21 07:48] LABS: Glucose, Whole Blood 135 mg/dL (60-115)
--- NOTE | 2025-05-21 08:06 | P.PNGS_ITS ---
Subjective Subjective Date of Service: 05/21/25 <Jun Adams PA-C - Last Filed: 05/21/25 08:10> 05/21/25 <Maynor Cannon MD - Last Filed: 05/21/25 14:35> Patient reports: no new complaints <RAUL Deras Last Filed: 05/21/25 08:10> Interval history: some pain in the foot. <RAUL Deras Last Filed: 05/21/25 08:10> Physical Exam 2 Vital Signs: Vital Signs: Last Vital Signs Temp 97.2 F 05/21/25 04:00 Pulse 72 05/21/25 04:00 Resp 16 05/21/25 04:00 BP 156/77 H 05/21/25 04:00 Pulse Ox 97 05/21/25 04:00 O2 Del Method Room Air 05/21/25 04:00 O2 Flow Rate 97 05/20/25 16:00 BMI result Body Mass Index 24.1 <RAUL Deras Last Filed: 05/21/25 08:10> Const: General: comfortable and no acute distress <RAUL Deras Last Filed: 05/21/25 08:10> Orientation/consciousness: patient oriented x3 <RAUL Deras Last Filed: 05/21/25 08:10> Resp: Effort & Inspection: normal respiratory effort and able to speak in complete sentences <Jun Adams PA-C - Last Filed: 05/21/25 08:10> Skin: Other: <RAUL Deras Last Filed: 05/21/25 08:10> Neuro: General: patient oriented x3 <RAUL Deras Last Filed: 05/21/25 08:10> Extrem: Other: LLE: left TMA. Large ulcer on the plantar aspect of the foot. moderate amounts of slough. Redness extending upwards multiple other small ulcers along the fenton. On the lateral aspect of the left extremity, a larger more superficial wound without slough. <RAUL Deras Last Filed: 05/21/25 08:10> Right lower extremity: abnormal to inspection (right bka) <JORDAN Deras Last Filed: 05/21/25 08:10> Objective Data Active Medications Acetaminophen (Acetaminophen 325 Mg Tablet) 650 mg PO Q6H PRN PRN Reason: Pain, Mild 1-3,fever,headache Albuterol/Ipratropium (Albuterol/Iprat 2.5/0.5mg 3 Ml Ampul.Neb) 3 ml INHALE RQ4H WHILE AWAKE PRN PRN Reason: Shortness of Breath Amitriptyline HCl (Amitriptyline Hcl 50 Mg Tablet) 50 mg PO BEDTIME [facility] Last Admin: 05/20/25 22:35 Dose: 50 mg Documented By: TAMIKO Bumetanide (Bumetanide 1 Mg Tablet) 1 mg PO DAILY [facility]; Protocol Calcium Carbonate (Calcium Carbonate 750 Mg Tab.Chew) 750 mg PO Q4H PRN PRN Reason: Heartburn Collagenase (Collagenase Clostridium Hist. 30 Gm Tube) 1 appl TOPICAL DAILY [facility]; Protocol Dextrose (Dextrose 50 % 25 Gm/50 Ml Syringe) 25 gm IVPUSH Q15M PRN; Protocol PRN Reason: per Hypoglycemia Standing Ord. Dextrose (Dextrose 50 % 25 Gm/50 Ml Syringe) 25 gm IVPUSH Q15M PRN; Protocol PRN Reason: per Hypoglycemia Standing Ord. Empagliflozin (Empagliflozin 10 Mg Tablet) 10 mg PO DAILY [facility] On Hold: 05/18/25 13:54 Last Admin: 05/18/25 09:04 Dose: 10 mg Documented By: KANDI Enoxaparin Sodium (Enoxaparin Sodium 40 Mg/0.4 Ml Syringe) 40 mg SUBCUT BEDTIME [facility] Last Admin: 05/20/25 22:47 Dose: Not Given Documented By: TAMIKO Non-Admin Reason: Physician Approved Comments: per Dr Durham, pt plan for OR tomorrow Glucose (Glucose Gel 15 Gm Gel..Gram.) 15 gm PO Q15M PRN; Protocol PRN Reason: per Hypoglycemia Standing Ord. Piperacillin Sod/Tazobactam (Sod 3.375 gm/ Sodium Chloride) 50 mls @ 100 mls/hr IV Q6H [facility] Last Admin: 05/21/25 06:37 Dose: 100 mls/hr Documented By: TAMIKO Insulin Glargine (Insulin Glargine,Hum.Rec.Anlog 100 Unit/Ml 10 Ml Vial) 20 unit SUBCUT DAILY [facility] Last Admin: 05/20/25 08:58 Dose: 20 unit Documented By: TARIQ Insulin Human Lispro (Insulin Lispro 100 Unit/Ml 3 Ml Vial) 0 unit SUBCUT QIDACHS [facility]; Protocol Last Admin: 05/20/25 22:45 Dose: 2 unit Documented By: TAMIKO Magnesium Hydroxide (Milk Of Magnesia 30 Ml Oral.Susp) 30 ml PO DAILY PRN PRN Reason: Constipation Melatonin (Melatonin 3 Mg Tablet) 6 mg PO BEDTIME PRN PRN Reason: Insomnia Methadone HCl (Methadone Hcl 20 Mg/2 Ml Oral.Conc) 80 mg PO DAILY [facility] Last Admin: 05/20/25 08:58 Dose: 80 mg Documented By: TARIQ Co-signed By: ALINA Polyethylene Glycol (Polyethylene Glycol 3350 17 Gm Powd.Pack) 17 gm PO DAILY PRN PRN Reason: Constipation Sacubitril/Valsartan (Sacubitril/Valsartan 49/51 1 Tab Tablet) 1 tab PO BID [facility]; Protocol Last Admin: 05/20/25 22:35 Dose: 1 tab Documented By: TAMIKO Sodium Chloride (0.9 % Sodium Chloride Flush 3 Ml Syringe) 3 ml IVFLUSH QSHIFT [facility] Last Admin: 05/21/25 00:51 Dose: 3 ml Documented By: TAMIKO Spironolactone (Spironolactone 25 Mg Tablet) 25 mg PO DAILY [facility]; Protocol Last Admin: 05/20/25 08:58 Dose: 25 mg Documented By: TARIQ <Jun Adams PA-C - Last Filed: 05/21/25 08:10> Labs CBC & Chem 7: 05/20/25 06:00 05/20/25 06:53 <Jun Adams PA-C - Last Filed: 05/21/25 08:10> Labs: Laboratory Results - last 24 hr 05/20/25 05/20/25 05/20/25 06:00 11:33 15:20 MCV 80.0 MCH 25.1 L MCHC 31.4 RDW 15.2 Plt Count 514 H MPV 10.2 Absolute Nucleated RBC 0.000 Nucleated RBC % (auto) 0.0 POC Glucose 149 H 194 H 0705/20/25 05/21/25 20:39 22:35 07:44 MCV MCH MCHC RDW Plt Count MPV Absolute Nucleated RBC Nucleated RBC % (auto) POC Glucose 179 H 172 H 135 H <Jun Adams PA-C - Last Filed: 05/21/25 08:10> Procedures Date of Service Date of Service: 05/21/25 <Jun Adams PA-C - Last Filed: 05/21/25 08:10> 05/21/25 <Maynor Cannon MD - Last Filed: 05/21/25 14:35> Progress Note: A&P Assessment and plan (1) Diabetic foot ulcer: Status: Acute <Jun Adams PA-C - Last Filed: 05/21/25 08:10> (2) Acute osteomyelitis of left foot: Status: Acute <Jun Adams PA-C - Last Filed: 05/21/25 08:10> Assessment and Plan: 64-year-old male with a past medical history of HTN, HLD, dm, right BKA, chronic diabetic left foot ulcer, history of left TMA, AFib-not on anticoagulation, being followed for left foot ulcer with 4th metatarsal osteomyelitis. Patient relatively the same from yesterday. Patient experiencing mild pain in the foot. denies fever, chills. Wounds are similar to previous more superficial wounds on the proximal aspect of the calf and fenton. Plantar aspect of the left foot is a large deep wound, with moderate amounts of slough. Wound care input appreciated. wound was dressed with silver alginate, covered with gauze. Patient does not want to proceed with amputation, and would likely have a difficult time postoperatively. We will take to the OR today for mechanical debridement of the area with plans for a veraflo wound vac. Patient agreeable to this plan Glucose control continue IV Abx pain control leg elevation OR debridement, add on unclear as to when this will happen <Jun Adams PA-C - Last Filed: 05/21/25 08:10> Time Spent With Patient Time: Total time managing care of this patient today ____ minutes. <Jun Adams PA-C - Last Filed: 05/21/25 08:10> Quality Stroke Does the patient have a stroke diagnosis?: No <RAUL Deras Last Filed: 05/21/25 08:10> VTE Prior VTE?: No <Jun Adams PA-C - Last Filed: 05/21/25 08:10> VTE Risk Level:: Medical - moderate - high <Jun Adams PA-C - Last Filed: 05/21/25 08:10> VTE Device Contraindication: Treatment Not Indicated <Jun Adams PA-C - Last Filed: 05/21/25 08:10> VTE Drug Contraindication: N/A - Med Ordered <Jun Adams PA-C - Last Filed: 05/21/25 08:10>
[2025-05-21] MEDS: Sacubitril/Valsartan 49/51 1 TAB TABLET PO ×2 (08:47→21:01)
[2025-05-21] MEDS: methADONE HCl 20 MG/2 ML ORAL.CONC 80 MG PO (08:47)
--- NOTE | 2025-05-21 09:26 | HO.ANESPROP2 ---
Documented by User: Tova Davis NP 05/21/25 10:21 HPI - Anesthesia Eval Consult details Narrative: 64 yr old male for left foot debridement Soft Tissue wound vac. Seen by cardiology for CHF, dobutamine stress echo unremarkable; echo 05/17/25 with EF 25-30%; on IV bumex, transitioning to oral. Afib not on anti-coagulation, last lovenox dose 05/19/25. DM II: on insulin, jardiance (on hold) blood glucose readings 140s-190s Anesthesia Pre-Procedure Meds Is the patient on any of the following meds?: SGLT2 Inhib (jardiance on hold) PMFSH Past Medical History Medical History Sepsis Group A streptococcal infection Open wound Hx of hepatitis Diabetic ulcer of right foot Atrial fibrillation Hypertension Diabetes Family History Family History Father History of lung cancer Mother History of diabetes mellitus Surgical History Surgical History Hx of surgical procedure (~08/06/24) 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 History of transmetatarsal amputation of foot (~09/2016) History of amputation of toe (~08/18/14) History of amputation of toe (~10/21/13) History of lipoma Social History Social History Household Members: None Household Members Other:: mother Housing: Apartment Housing Other:: hotel (homeless) Are you a primary acute care assistant to a significant other at home: No Do you presently have visiting nurse or other home services: No Unable to assess alcohol history related to: Unknown Alcohol intake: never Comment: L BKA, R TMA, wheelchair bound Patient Tobacco Use Status: Current everyday Tobacco user Tobacco use type: Cigarette Cigarettes Per Day: 4 Years Smoked: 49 Smoked in Last 30 Days: Yes Patient Interested in Nicotine Replacement: Yes Patient Given Instructions on How to Stop Smoking: Yes Date Education Initiated: 05/15/25 Second Hand Smoke Exposure: No Use of substances other than those prescribed or required for medical reasons: No Substance Use Type: Crack/Cocaine Currently Displaying Signs/Symptoms of Drug Intoxication Withdrawal: No Have you been hit, kicked, punched, or otherwise hurt by someone within the past year? If so, by whom?: No Do you feel safe in your current relationship?: No Current Relationship Is there a partner from a previous relationship who is making you feel unsafe now?: No Are you made to feel afraid or neglected: No Are you DNR?: No Advance Directives: Yes Advance Directives Information Provided: No Advance Directives on File: Yes Advance Directives Date on File: 04/28/24 Do you have a plan to hurt others: No Plan Recently lost weight without trying: No Eating poorly because of decreased appetite: No Nutrition Risks: No Nutritional Risk Poor oral hygiene: Yes service: No Meds Allergies Allergy/AdvReac Type Severity Reaction Status Date / Time furosemide (Lasix) Allergy Intermediate Hives Verified 05/14/25 22:56 levofloxacin (Levaquin) Allergy Unknown Gastrointestinal Verified 05/14/25 22:56 Upset metronidazole (Flagyl) Allergy Unknown Unknown Verified 05/14/25 22:56 latex Allergy Rash Verified 05/14/25 22:56 perflutren AdvReac Back Pain Verified 05/19/25 10:33 contrast dye Allergy Unknown rash, hives Uncoded 05/14/25 22:56 Home Medications ?Medication ?Instructions ?Recorded ?Confirmed ?Last Taken ?Type amitriptyline 50 mg tablet 50 mg PO BEDTIME 12/09/20 05/15/25 05/14/25 History blood sugar diagnostic (FreeStyle #10 ea 03/08/22 06/21/24 Unknown History Lite Strips) insulin syringe-needle U-100 1 mL #10 ea 03/08/22 10/28/23 Unknown History 31 gauge x 5/16 (BD Insulin Syringe Ultra-Fine) methadone 10 mg/mL oral concentrate 80 mg PO DAILY 04/10/24 05/15/25 05/14/25 10:00 History insulin glargine 100 unit/mL 20 unit subcut DAILY 10/30/24 05/15/25 05/14/25 History subcutaneous solution (Lantus U-100 Insulin) diltiazem HCl 180 mg 180 mg PO DAILY 01/07/25 05/15/25 05/14/25 History capsule,extended release 24 hr Exam Exam Date and Time: EKG 05/15/25: NSR, rate 90, LVH, anterior infarct (seen on Oct 2024 EKG). Airway Mallampati Class: II TM Dist: >3cm Neck ROM: Full Loose/Missing/Broken Teeth: No Heart: RRR Lungs: expiratory crackles RLL>LLL, otherwise clear Documented by User: Matilda Fabian MD 05/21/25 12:22 COUNT INCLUDES THE [facility] Active Problems Active Problems: All Active Problems (Updated 05/18/25 @ 13:56 by Rusty Simpson MD) Preop cardiovascular exam (Acute) Congestive heart failure (Acute) Sepsis (Acute) Acute pulmonary edema (Acute) Acute osteomyelitis of left foot (Acute) Hypoxia (Acute) Bilateral pneumonia (Acute) Diabetic foot ulcer (Acute) Cellulitis (Acute) Diabetic infection of left foot (Acute) Open wound (Acute) Bilateral lower leg cellulitis (Acute) Skin infection (Acute) Below knee amputation (Acute) Hyperkalemia (Acute) Epidermal inclusion cyst (Acute) Atrial fibrillation (Acute) Past Medical History Medical History Sepsis Group A streptococcal infection Open wound Hx of hepatitis Diabetic ulcer of right foot Atrial fibrillation Hypertension Diabetes Family History Family History Father History of lung cancer Mother History of diabetes mellitus Family history of problems with anesthesia: No Surgical History Surgical History Hx of surgical procedure (~08/06/24) 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 History of transmetatarsal amputation of foot (~09/2016) History of amputation of toe (~08/18/14) History of amputation of toe (~10/21/13) History of lipoma History of Problems with Anesthesia: No Social History Social History Household Members: None Household Members Other:: mother Housing: Apartment Housing Other:: hotel (homeless) Are you a primary acute care assistant to a significant other at home: No Do you presently have visiting nurse or other home services: No Unable to assess alcohol history related to: Unknown Alcohol intake: never Comment: L BKA, R TMA, wheelchair bound Patient Tobacco Use Status: Current everyday Tobacco user Tobacco use type: Cigarette Cigarettes Per Day: 4 Years Smoked: 49 Smoked in Last 30 Days: Yes Patient Interested in Nicotine Replacement: Yes Patient Given Instructions on How to Stop Smoking: Yes Date Education Initiated: 05/15/25 Second Hand Smoke Exposure: No Use of substances other than those prescribed or required for medical reasons: No Substance Use Type: Crack/Cocaine Currently Displaying Signs/Symptoms of Drug Intoxication Withdrawal: No Have you been hit, kicked, punched, or otherwise hurt by someone within the past year? If so, by whom?: No Do you feel safe in your current relationship?: No Current Relationship Is there a partner from a previous relationship who is making you feel unsafe now?: No Are you made to feel afraid or neglected: No Are you DNR?: No Advance Directives: Yes Advance Directives Information Provided: No Advance Directives on File: Yes Advance Directives Date on File: 04/28/24 Do you have a plan to hurt others: No Plan Recently lost weight without trying: No Eating poorly because of decreased appetite: No Nutrition Risks: No Nutritional Risk Poor oral hygiene: Yes service: No Meds Allergies Allergy/AdvReac Type Severity Reaction Status Date / Time furosemide (Lasix) Allergy Intermediate Hives Verified 05/14/25 22:56 levofloxacin (Levaquin) Allergy Unknown Gastrointestinal Verified 05/14/25 22:56 Upset metronidazole (Flagyl) Allergy Unknown Unknown Verified 05/14/25 22:56 latex Allergy Rash Verified 05/14/25 22:56 perflutren AdvReac Back Pain Verified 05/19/25 10:33 contrast dye Allergy Unknown rash, hives Uncoded 05/14/25 22:56 Active Medications: Current Medications Acetaminophen (Acetaminophen 325 Mg Tablet) 650 mg PO Q6H PRN PRN Reason: Pain, Mild 1-3,fever,headache Albuterol/Ipratropium (Albuterol/Iprat 2.5/0.5mg 3 Ml Ampul.Neb) 3 ml INHALE RQ4H WHILE AWAKE PRN PRN Reason: Shortness of Breath Amitriptyline HCl (Amitriptyline Hcl 50 Mg Tablet) 50 mg PO BEDTIME [facility] Last Admin: 05/20/25 22:35 Dose: 50 mg Bumetanide (Bumetanide 1 Mg Tablet) 1 mg PO DAILY [facility]; Protocol Last Admin: 05/21/25 08:50 Dose: 1 mg Calcium Carbonate (Calcium Carbonate 750 Mg Tab.Chew) 750 mg PO Q4H PRN PRN Reason: Heartburn Collagenase (Collagenase Clostridium Hist. 30 Gm Tube) 1 appl TOPICAL DAILY [place]; Protocol Dextrose (Dextrose 50 % 25 Gm/50 Ml Syringe) 25 gm IVPUSH Q15M PRN; Protocol PRN Reason: per Hypoglycemia Standing Ord. Dextrose (Dextrose 50 % 25 Gm/50 Ml Syringe) 25 gm IVPUSH Q15M PRN; Protocol PRN Reason: per Hypoglycemia Standing Ord. Empagliflozin (Empagliflozin 10 Mg Tablet) 10 mg PO DAILY [facility] On Hold: 05/18/25 13:54 Last Admin: 05/18/25 09:04 Dose: 10 mg Enoxaparin Sodium (Enoxaparin Sodium 40 Mg/0.4 Ml Syringe) 40 mg SUBCUT BEDTIME [facility] Last Admin: 05/20/25 22:47 Dose: Not Given Glucose (Glucose Gel 15 Gm Gel..Gram.) 15 gm PO Q15M PRN; Protocol PRN Reason: per Hypoglycemia Standing Ord. Piperacillin Sod/Tazobactam (Sod 3.375 gm/ Sodium Chloride) 50 mls @ 100 mls/hr IV Q6H [facility] Last Infusion: 05/21/25 08:07 Dose: Infused Insulin Glargine (Insulin Glargine,Hum.Rec.Anlog 100 Unit/Ml 10 Ml Vial) 20 unit SUBCUT DAILY [facility] Last Admin: 05/20/25 08:58 Dose: 20 unit Insulin Human Lispro (Insulin Lispro 100 Unit/Ml 3 Ml Vial) 0 unit SUBCUT QIDACHS [facility]; Protocol Last Admin: 05/21/25 08:11 Dose: Not Given Magnesium Hydroxide (Milk Of Magnesia 30 Ml Oral.Susp) 30 ml PO DAILY PRN PRN Reason: Constipation Melatonin (Melatonin 3 Mg Tablet) 6 mg PO BEDTIME PRN PRN Reason: Insomnia Methadone HCl (Methadone Hcl 20 Mg/2 Ml Oral.Conc) 80 mg PO DAILY [facility] Last Admin: 05/21/25 08:47 Dose: 80 mg Polyethylene Glycol (Polyethylene Glycol 3350 17 Gm Powd.Pack) 17 gm PO DAILY PRN PRN Reason: Constipation Sacubitril/Valsartan (Sacubitril/Valsartan 49/51 1 Tab Tablet) 1 tab PO BID [facility]; Protocol Last Admin: 05/21/25 08:47 Dose: 1 tab Sodium Chloride (0.9 % Sodium Chloride Flush 3 Ml Syringe) 3 ml IVFLUSH QSHIFT [facility] Last Admin: 05/21/25 08:48 Dose: 3 ml Spironolactone (Spironolactone 25 Mg Tablet) 25 mg PO DAILY [facility]; Protocol Last Admin: 05/21/25 08:47 Dose: 25 mg Home Medications ?Medication ?Instructions ?Recorded ?Confirmed ?Last Taken ?Type amitriptyline 50 mg tablet 50 mg PO BEDTIME 12/09/20 05/15/25 05/14/25 History blood sugar diagnostic (FreeStyle #10 ea 03/08/22 06/21/24 Unknown History Lite Strips) insulin syringe-needle U-100 1 mL #10 ea 03/08/22 10/28/23 Unknown History 31 gauge x 5/16 (BD Insulin Syringe Ultra-Fine) methadone 10 mg/mL oral concentrate 80 mg PO DAILY 04/10/24 05/15/25 05/14/25 10:00 History insulin glargine 100 unit/mL 20 unit subcut DAILY 10/30/24 05/15/25 05/14/25 History subcutaneous solution (Lantus U-100 Insulin) diltiazem HCl 180 mg 180 mg PO DAILY 01/07/25 05/15/25 05/14/25 History capsule,extended release 24 hr Exam Height,Weight and Vital Signs: Height 6 ft 5 in Weight 92.2 kg Last Vital Signs Temp 97.2 F 05/21/25 08:00 Pulse 66 05/21/25 08:00 Resp 18 05/21/25 08:00 BP 146/75 H 05/21/25 08:00 Pulse Ox 97 05/21/25 08:00 O2 Del Method Room Air 05/21/25 08:00 O2 Flow Rate 97 05/20/25 16:00 Pertinent Lab Results Pertinent Lab Results: Laboratory Tests 05/14/25 05/14/25 05/15/25 23:08 23:11 00:56 WBC 16.5 H RBC 3.49 L Hgb 8.6 L Hct 26.9 L MCV 77.1 L MCH 24.6 L MCHC 32.0 RDW 14.1 Plt Count 430 H MPV 9.6 Immature Gran % (Auto) 0.6 H Neut % (Auto) 85.8 H Lymph % (Auto) 6.7 L Preston % (Auto) 5.5 Eos % (Auto) 1.0 Baso % (Auto) 0.4 Lymph # (Auto) 1.1 L [place] # (Auto) 0.9 Eos # (Auto) 0.2 Baso # (Auto) 0.1 Abs Immat Gran (auto) 0.10 H Absolute Neuts (auto) 14.2 H Absolute Nucleated RBC 0.000 Nucleated RBC % (auto) 0.0 Hold Purple Top PT 18.3 H INR 1.6 H APTT 35.4 VBG pH 7.43 VBG pCO2 40 VBG pO2 32 VBG HCO3 27 H VBG O2 Saturation 47.0 VBG Base Excess 2.9 Sodium 137 Potassium 4.3 Chloride 101 Carbon Dioxide 25 Anion Gap 15 BUN 22 H Creatinine 1.32 Estim Creat Clear Calc 78.1 Estimated GFR 55 POC Glucose Random Glucose 259 H Lactic Acid 1.9 Calcium 8.3 L D Total Bilirubin 0.3 AST 20 ALT < 6 Alkaline Phosphatase 81 B-Natriuretic Peptide Total Protein 8.1 H Albumin 2.9 L Random Vancomycin Blood Type Antibody Screen Crossmatch 05/15/25 05/15/25 05/15/25 06:20 06:37 07:22 WBC 15.7 H RBC 3.03 L Hgb 7.4 L Hct 23.6 L MCV 77.9 L MCH 24.4 L MCHC 31.4 RDW 14.0 Plt Count 383 MPV 10.4 Immature Gran % (Auto) 0.8 H Neut % (Auto) 78.7 H Lymph % (Auto) 11.8 L Preston % (Auto) 6.9 Eos % (Auto) 1.4 Baso % (Auto) 0.4 Lymph # (Auto) 1.9 Preston # (Auto) 1.1 Eos # (Auto) 0.2 Baso # (Auto) 0.1 Abs Immat Gran (auto) 0.12 H Absolute Neuts (auto) 12.4 H Absolute Nucleated RBC 0.000 Nucleated RBC % (auto) 0.0 Hold Purple Top PT INR APTT VBG pH VBG pCO2 VBG pO2 VBG HCO3 VBG O2 Saturation VBG Base Excess Sodium 136 Potassium 4.6 Chloride 106 Carbon Dioxide 24 Anion Gap 11 L BUN 21 H Creatinine 1.32 Estim Creat Clear Calc 72.1 Estimated GFR 55 POC Glucose 175 H Random Glucose 201 H Lactic Acid Calcium 7.8 L D Total Bilirubin AST ALT Alkaline Phosphatase B-Natriuretic Peptide 1991 H Total Protein Albumin Random Vancomycin Blood Type Antibody Screen Crossmatch 05/15/25 05/15/25 05/15/25 11:09 11:27 15:38 WBC RBC Hgb Hct MCV MCH MCHC RDW Plt Count MPV Immature Gran % (Auto) Neut % (Auto) Lymph % (Auto) Preston % (Auto) Eos % (Auto) Baso % (Auto) Lymph # (Auto) Preston # (Auto) Eos # (Auto) Baso # (Auto) Abs Immat Gran (auto) Absolute Neuts (auto) Absolute Nucleated RBC Nucleated RBC % (auto) Hold Purple Top PT INR APTT VBG pH VBG pCO2 VBG pO2 VBG HCO3 VBG O2 Saturation VBG Base Excess Sodium Potassium Chloride Carbon Dioxide Anion Gap BUN Creatinine Estim Creat Clear Calc Estimated GFR POC Glucose 188 H 140 H Random Glucose Lactic Acid Calcium Total Bilirubin AST ALT Alkaline Phosphatase B-Natriuretic Peptide Total Protein Albumin Random Vancomycin Blood Type O Positive Antibody Screen NEGATIVE Crossmatch See Detail 05/15/25 05/16/25 05/16/25 20:34 07:11 07:32 WBC 19.3 H RBC 3.91 L D Hgb 9.9 L D Hct 31.0 L D MCV 79.3 L MCH 25.3 L MCHC 31.9 RDW 14.3 Plt Count 448 H MPV 10.4 Immature Gran % (Auto) Neut % (Auto) Lymph % (Auto) Preston % (Auto) Eos % (Auto) Baso % (Auto) Lymph # (Auto) Preston # (Auto) Eos # (Auto) Baso # (Auto) Abs Immat Gran (auto) Absolute Neuts (auto) Absolute Nucleated RBC 0.000 Nucleated RBC % (auto) 0.0 Hold Purple Top PT INR APTT VBG pH VBG pCO2 VBG pO2 VBG HCO3 VBG O2 Saturation VBG Base Excess Sodium 140 Potassium 4.4 Chloride 105 Carbon Dioxide 24 Anion Gap 15 BUN 20 H Creatinine 1.44 H Estim Creat Clear Calc 66.1 Estimated GFR 50 POC Glucose 228 H 139 H Random Glucose 129 H Lactic Acid Calcium 8.3 L D Total Bilirubin AST ALT Alkaline Phosphatase B-Natriuretic Peptide 1879 H Total Protein Albumin Random Vancomycin Blood Type Antibody Screen Crossmatch 05/16/25 05/16/25 05/16/25 09:49 11:20 15:27 WBC RBC Hgb Hct MCV MCH MCHC RDW Plt Count MPV Immature Gran % (Auto) Neut % (Auto) Lymph % (Auto) Preston % (Auto) Eos % (Auto) Baso % (Auto) Lymph # (Auto) Preston # (Auto) Eos # (Auto) Baso # (Auto) Abs Immat Gran (auto) Absolute Neuts (auto) Absolute Nucleated RBC Nucleated RBC % (auto) Hold Purple Top PT INR APTT VBG pH VBG pCO2 VBG pO2 VBG HCO3 VBG O2 Saturation VBG Base Excess Sodium Potassium Chloride Carbon Dioxide Anion Gap BUN Creatinine Estim Creat Clear Calc Estimated GFR POC Glucose 214 H 152 H Random Glucose Lactic Acid Calcium Total Bilirubin AST ALT Alkaline Phosphatase B-Natriuretic Peptide Total Protein Albumin Random Vancomycin 20.6 H Blood Type Antibody Screen Crossmatch 05/16/25 05/17/25 05/17/25 20:55 07:16 11:25 WBC RBC Hgb Hct MCV MCH MCHC RDW Plt Count MPV Immature Gran % (Auto) Neut % (Auto) Lymph % (Auto) Preston % (Auto) Eos % (Auto) Baso % (Auto) Lymph # (Auto) Preston # (Auto) Eos # (Auto) Baso # (Auto) Abs Immat Gran (auto) Absolute Neuts (auto) Absolute Nucleated RBC Nucleated RBC % (auto) Hold Purple Top PT INR APTT VBG pH VBG pCO2 VBG pO2 VBG HCO3 VBG O2 Saturation VBG Base Excess Sodium Potassium Chloride Carbon Dioxide Anion Gap BUN Creatinine Estim Creat Clear Calc Estimated GFR POC Glucose 139 H 111 149 H Random Glucose Lactic Acid Calcium Total Bilirubin AST ALT Alkaline Phosphatase B-Natriuretic Peptide Total Protein Albumin Random Vancomycin Blood Type Antibody Screen Crossmatch 07/06/0405/17/25 05/18/25 16:24 20:14 08:21 WBC RBC Hgb Hct MCV MCH MCHC RDW Plt Count MPV Immature Gran % (Auto) Neut % (Auto) Lymph % (Auto) Preston % (Auto) Eos % (Auto) Baso % (Auto) Lymph # (Auto) Preston # (Auto) Eos # (Auto) Baso # (Auto) Abs Immat Gran (auto) Absolute Neuts (auto) Absolute Nucleated RBC Nucleated RBC % (auto) Hold Purple Top PT INR APTT VBG pH VBG pCO2 VBG pO2 VBG HCO3 VBG O2 Saturation VBG Base Excess Sodium Potassium Chloride Carbon Dioxide Anion Gap BUN Creatinine Estim Creat Clear Calc Estimated GFR POC Glucose 153 H 153 H 122 H Random Glucose Lactic Acid Calcium Total Bilirubin AST ALT Alkaline Phosphatase B-Natriuretic Peptide Total Protein Albumin Random Vancomycin Blood Type Antibody Screen Crossmatch 05/18/25 05/18/25 05/18/25 08:49 08:49 08:49 WBC 15.1 H RBC 3.89 L Hgb 9.9 L Hct 30.8 L MCV 79.2 L MCH 25.4 L MCHC 32.1 RDW 14.8 Plt Count 454 H MPV 9.8 Immature Gran % (Auto) Neut % (Auto) Lymph % (Auto) Preston % (Auto) Eos % (Auto) Baso % (Auto) Lymph # (Auto) Preston # (Auto) Eos # (Auto) Baso # (Auto) Abs Immat Gran (auto) Absolute Neuts (auto) Absolute Nucleated RBC 0.000 Nucleated RBC % (auto) 0.0 Hold Purple Top PT INR APTT VBG pH VBG pCO2 VBG pO2 VBG HCO3 VBG O2 Saturation VBG Base Excess Sodium 136 Potassium 3.5 D Chloride 101 Carbon Dioxide 26 Anion Gap 13 BUN 21 H Creatinine 1.22 1.19 Estim Creat Clear Calc 78.1 80.0 Estimated GFR 60 POC Glucose Random Glucose Lactic Acid Calcium Total Bilirubin AST ALT Alkaline Phosphatase B-Natriuretic Peptide Total Protein Albumin Random Vancomycin Blood Type Antibody Screen Crossmatch 05/18/25 05/18/25 05/18/25 08:49 11:21 16:10 WBC RBC Hgb Hct MCV MCH MCHC RDW Plt Count MPV Immature Gran % (Auto) Neut % (Auto) Lymph % (Auto) Preston % (Auto) Eos % (Auto) Baso % (Auto) Lymph # (Auto) [place] # (Auto) Eos # (Auto) Baso # (Auto) Abs Immat Gran (auto) Absolute Neuts (auto) Absolute Nucleated RBC Nucleated RBC % (auto) Hold Purple Top PT INR APTT VBG pH VBG pCO2 VBG pO2 VBG HCO3 VBG O2 Saturation VBG Base Excess Sodium Potassium Chloride Carbon Dioxide Anion Gap BUN Creatinine Estim Creat Clear Calc Estimated GFR > 60 POC Glucose 246 H 159 H Random Glucose 173 H Lactic Acid Calcium 7.9 L Total Bilirubin AST ALT Alkaline Phosphatase B-Natriuretic Peptide Total Protein Albumin Random Vancomycin Blood Type Antibody Screen Crossmatch 05/18/25 05/18/25 05/19/25 19:47 21:10 06:04 WBC RBC Hgb Hct MCV MCH MCHC RDW Plt Count MPV Immature Gran % (Auto) Neut % (Auto) Lymph % (Auto) Preston % (Auto) Eos % (Auto) Baso % (Auto) Lymph # (Auto) [place] # (Auto) Eos # (Auto) Baso # (Auto) Abs Immat Gran (auto) Absolute Neuts (auto) Absolute Nucleated RBC Nucleated RBC % (auto) Hold Purple Top SEE NOTE PT INR APTT VBG pH VBG pCO2 VBG pO2 VBG HCO3 VBG O2 Saturation VBG Base Excess Sodium Potassium Chloride Carbon Dioxide Anion Gap BUN Creatinine 1.40 Estim Creat Clear Calc 68.0 Estimated GFR 51 POC Glucose 147 H Random Glucose Lactic Acid Calcium Total Bilirubin AST ALT Alkaline Phosphatase B-Natriuretic Peptide Total Protein Albumin Random Vancomycin 14.6 L Blood Type Antibody Screen Crossmatch 05/19/25 05/19/25 05/19/25 07:16 11:14 16:04 WBC RBC Hgb Hct MCV MCH MCHC RDW Plt Count MPV Immature Gran % (Auto) Neut % (Auto) Lymph % (Auto) Preston % (Auto) Eos % (Auto) Baso % (Auto) Lymph # (Auto) [place] # (Auto) Eos # (Auto) Baso # (Auto) Abs Immat Gran (auto) Absolute Neuts (auto) Absolute Nucleated RBC Nucleated RBC % (auto) Hold Purple Top PT INR APTT VBG pH VBG pCO2 VBG pO2 VBG HCO3 VBG O2 Saturation VBG Base Excess Sodium Potassium Chloride Carbon Dioxide Anion Gap BUN Creatinine Estim Creat Clear Calc Estimated GFR POC Glucose 113 109 147 H Random Glucose Lactic Acid Calcium Total Bilirubin AST ALT Alkaline Phosphatase B-Natriuretic Peptide Total Protein Albumin Random Vancomycin Blood Type Antibody Screen Crossmatch 05/19/25 05/19/25 05/20/25 19:54 20:38 06:00 WBC 12.0 H RBC 4.14 L Hgb 10.4 L Hct 33.1 L MCV 80.0 MCH 25.1 L MCHC 31.4 RDW 15.2 Plt Count 514 H MPV 10.2 Immature Gran % (Auto) Neut % (Auto) Lymph % (Auto) Preston % (Auto) Eos % (Auto) Baso % (Auto) Lymph # (Auto) [place] # (Auto) Eos # (Auto) Baso # (Auto) Abs Immat Gran (auto) Absolute Neuts (auto) Absolute Nucleated RBC 0.000 Nucleated RBC % (auto) 0.0 Hold Purple Top SEE NOTE PT INR APTT VBG pH VBG pCO2 VBG pO2 VBG HCO3 VBG O2 Saturation VBG Base Excess Sodium Potassium Chloride Carbon Dioxide Anion Gap BUN Creatinine Estim Creat Clear Calc Estimated GFR POC Glucose 149 H Random Glucose Lactic Acid Calcium Total Bilirubin AST ALT Alkaline Phosphatase B-Natriuretic Peptide Total Protein Albumin Random Vancomycin 15.2 Blood Type Antibody Screen Crossmatch 05/20/25 05/20/25 05/20/25 06:53 06:53 06:53 WBC RBC Hgb Hct MCV MCH MCHC RDW Plt Count MPV Immature Gran % (Auto) Neut % (Auto) Lymph % (Auto) [place] % (Auto) Eos % (Auto) Baso % (Auto) Lymph # (Auto) [place] # (Auto) Eos # (Auto) Baso # (Auto) Abs Immat Gran (auto) Absolute Neuts (auto) Absolute Nucleated RBC Nucleated RBC % (auto) Hold Purple Top PT INR APTT VBG pH VBG pCO2 VBG pO2 VBG HCO3 VBG O2 Saturation VBG Base Excess Sodium 139 Potassium 4.0 Chloride 101 Carbon Dioxide 30 H Anion Gap 12 BUN 22 H Creatinine 1.36 1.36 Estim Creat Clear Calc 70.0 70.0 Estimated GFR 53 POC Glucose Random Glucose Lactic Acid Calcium Total Bilirubin AST ALT Alkaline Phosphatase B-Natriuretic Peptide Total Protein Albumin Random Vancomycin Blood Type Antibody Screen Crossmatch 05/20/25 05/20/25 05/20/25 06:53 07:39 11:33 WBC RBC Hgb Hct MCV MCH MCHC RDW Plt Count MPV Immature Gran % (Auto) Neut % (Auto) Lymph % (Auto) [place] % (Auto) Eos % (Auto) Baso % (Auto) Lymph # (Auto) [place] # (Auto) Eos # (Auto) Baso # (Auto) Abs Immat Gran (auto) Absolute Neuts (auto) Absolute Nucleated RBC Nucleated RBC % (auto) Hold Purple Top PT INR APTT VBG pH VBG pCO2 VBG pO2 VBG HCO3 VBG O2 Saturation VBG Base Excess Sodium Potassium Chloride Carbon Dioxide Anion Gap BUN Creatinine Estim Creat Clear Calc Estimated GFR 53 POC Glucose 107 149 H Random Glucose 105 Lactic Acid Calcium 8.4 D Total Bilirubin AST ALT Alkaline Phosphatase B-Natriuretic Peptide Total Protein Albumin Random Vancomycin Blood Type Antibody Screen Crossmatch 05/20/25 05/20/25 05/20/25 15:20 20:39 22:35 WBC RBC Hgb Hct MCV MCH MCHC RDW Plt Count MPV Immature Gran % (Auto) Neut % (Auto) Lymph % (Auto) [place] % (Auto) Eos % (Auto) Baso % (Auto) Lymph # (Auto) [place] # (Auto) Eos # (Auto) Baso # (Auto) Abs Immat Gran (auto) Absolute Neuts (auto) Absolute Nucleated RBC Nucleated RBC % (auto) Hold Purple Top PT INR APTT VBG pH VBG pCO2 VBG pO2 VBG HCO3 VBG O2 Saturation VBG Base Excess Sodium Potassium Chloride Carbon Dioxide Anion Gap BUN Creatinine Estim Creat Clear Calc Estimated GFR POC Glucose 194 H 179 H 172 H Random Glucose Lactic Acid Calcium Total Bilirubin AST ALT Alkaline Phosphatase B-Natriuretic Peptide Total Protein Albumin Random Vancomycin Blood Type Antibody Screen Crossmatch 05/21/25 07:44 WBC RBC Hgb Hct MCV MCH MCHC RDW Plt Count MPV Immature Gran % (Auto) Neut % (Auto) Lymph % (Auto) [place] % (Auto) Eos % (Auto) Baso % (Auto) Lymph # (Auto) [place] # (Auto) Eos # (Auto) Baso # (Auto) Abs Immat Gran (auto) Absolute Neuts (auto) Absolute Nucleated RBC Nucleated RBC % (auto) Hold Purple Top PT INR APTT VBG pH VBG pCO2 VBG pO2 VBG HCO3 VBG O2 Saturation VBG Base Excess Sodium Potassium Chloride Carbon Dioxide Anion Gap BUN Creatinine Estim Creat Clear Calc Estimated GFR POC Glucose 135 H Random Glucose Lactic Acid Calcium Total Bilirubin AST ALT Alkaline Phosphatase B-Natriuretic Peptide Total Protein Albumin Random Vancomycin Blood Type Antibody Screen Crossmatch Airway Loose/Missing/Broken Teeth: Yes (edentulous) Assessment and Plan Assessment Anesthesia Assessment: Anesthesia Plan Discussed and Chart Reviewed Final Anesthetic Review Family History of Problems with Anesthesia: No History of Problems with Anesthesia: No NPO: Yes ASA Class: III Final Preanesthetic Review: Meds/Allgs Chart Reviewed, Consent Obtained/Reviewed and Anes Risks/Benef Reviewed Patient Risk: Intermediate Procedure Risk: Low Anesthetic Plan Anesthetic Plan: GA Disposition: Standard PACU
[2025-05-21 11:33] LABS: Glucose, Whole Blood 125 mg/dL (60-115)
[2025-05-21] MEDS: Lactated Ringers 1,000 ML 80 ML IVCONT (12:52)
--- NOTE | 2025-05-21 13:40 | HO.WOUND ---
Wound Consult: Follow up 64yr old?Male admitted to [facility] on 05/15/25 - See progress notes and H&P for detailed history.? Wound consult follow up for Left Lower Leg and plantar wounds POA.?? 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 Initially plan was for amputation but at this time limb preservation is goal. Discussed 05/20/[address] Cannon for santyl and consideration of Veraflo NPWT. Plan was for OR today for debridement and Veraflo NPWT vs Standard Wound Vac vs continue with santyl application and early next week reassess for Veraflo NPWT. Given the hour in the day and it is a Saturday with limited weekend coverage I would recommend after Surgical debridement Santyl application and reassess saturday for Veraflo wound vac. The Veraflo system is new to staff at [facility] and are not well versed in this system. Discussed with Surgical PA, Jun Adams and Hospitalist MORA Lara my concerns for starting the Veraflow on a Saturday evening, Per Jun he will discuss with Dr. Cannon - Fanny Purdy, PA will defer to surgery but understands concerns. Given unsure how outcome of debridement will be at this time time I will in my note have topical recommendations for continued Santyl and instruction for direct care team to monitor and treat Wound Vac, ultimately will defer to Surgical team. Left Plantar Surface - Elevate Lower Leg - Limit walking and do not stand on right foot. Cleanse with normal saline, pat dry. ?Apply barrier to the immediate shara wound, apply thick layer of Santyl to entire wound bed, cover with saline moist gauze, To leg wounds may cover with single layer xeroform followed by dry gauze, ABD pad and gauze wrap, change Daily. If Wound Vac (Negative Pressure Wound Therapy) is in place: Nursing Considerations: Wound vac should be on and set to suction at all times - if leak occurs reinforce with drape or tegaderm. If unable to obtain seal page covering doctor from General Surgery Service Team. If not able to obtain suction for 2 consecutive hours remove and apply wet to dry dressing - notify providers. If bright red blood is noted in Vac canister stop wound vac and page doctor immediately. Will follow up early next week. Details from prior assessment this admission: Left Lateral Plantar Foot Etiology: ?Diabetic wound Wound Bed: pale slough with areas of necrosis and exposed bone noted Drainage / Odor: clifton drainage noted mild odor noted Edges: ? unattached Shara wound: dry thick callused areas ? Pain: reports tenderness Goals of Treatment: Moisture management with Durafiber AG? pending Amputation with Vascular / General Surgery Left Leg Etiology: Venous vs Diabetic wounds Wound Bed: pale pink moist wound bed partial thickness tissue loss Drainage / Odor: yellow drainage noted on dressing - No odor Edges: ? well defined and attached Shara wound: Hemosiderin staining noted - scar tissue noted - No Induration, Fluctuance or Warmth noted Pain: reports pain Goals of Treatment: Moisture management with Durafiber AG pending Amputation with Vascular / General Surgery Recommendations: 1. Turn and Reposition every 2 hours and as needed for patient comfort.? Use pillows or wedges to support off loading positions. 2. Off Load all bony prominences with use of pillows and heel boots if needed.? Apply Preventative foams where needed. ? 3. Monitor for incontinence and moisture control, use barrier creams when needed for prevention and treatment. 4. Provide adequate and supplemental nutrition.? 5. Continue low air loss mattress. 6. Maintain blood glucose levels per Providers order. 7. Left Plantar Foot and Left Lower Leg - Elevate lower legs - Off Load Pressure and limit ambulating on foot. Cleanse with saline, pat dry. ?Apply barrier cream to wound bed. Cover wound bed with Durafiber AG, Cover with Dry gauze, ABD pad and wrap. Change every other day. Re-consult wound care Nurse for wound deterioration or wound changes.
--- NOTE | 2025-05-21 14:35 | W.PM.OPN ---
Operative Note Operative Note Date of Service: 05/21/25 Narrative: Preoperative diagnosis: Hepatic foot ulcer with osteomyelitis left foot Postoperative diagnosis: Same Procedure: Debridement left foot diabetic ulcer of bone and soft tissue Surgeon: Maynor Cannon MD Helpdesk Administrator: Katelyn Comer PA-C; Jun Adams PA-C, Braden NEAL, Zara Garcia, MS-3 Anesthesia: General LMA Indications for procedure: 64-year-old male patient presenting with a nonhealing left diabetic foot ulcer with osteomyelitis involving the 4th and 5th toes. Patient has a wide open wound measuring approximately 8 by 5 cm. Presents today for debridement and wound VAC placement. Operative findings: 8 x 5 cm open wound with exposed metatarsal of the 5th and 4th toe as well as subcutaneous tissue and muscle. Specimen: Metatarsal 4th toe Estimated blood loss: 10 mL Complications: None Procedure details: Patient was brought to the OR and placed in a supine position. After administering general anesthesia the patient's left foot and leg was prepped with Betadine and draped in a sterile fashion. A surgical time-out was called the consent confirmed. A curette was used to debride the granulation tissue of the left foot of soft tissue. A Ronger was then used to debride the exposed 4th and 5th metatarsal. Scalpel was used to debride the necrotic tissue surrounding the base of the wound which included some subcutaneous tissue and muscle. Hemostasis was achieved using light pressure. Wounds were then irrigated with saline solution. A Veraflow wound VAC was then applied with a sponge measuring approximately 8 x 5 cm. This was connected to the Veraflow pump with saline instillation of 25 mL every 2 hours, suctioned after 3 minutes. A good air seal was obtained with the sponge. The patient tolerated the procedure well. Sponge, instrument, and needle counts reported as correct. The patient was transferred to PACU in stable condition.
--- NOTE | 2025-05-21 14:50 | HO.PM.IMPN ---
Subjective Subjective Date of Service: 05/21/25 Interval History: Seen and examined this morning Follow-up for leg wound, bacteremia No overnight events Pain under adequate control. No specific complaints Constitutional Constitutional: Denies chills and Denies fever(s) Cardiovascular Cardiovascular: Denies chest pain, Denies palpitations and Denies dyspnea Respiratory Respiratory: Denies cough and Denies dyspnea Gastrointestinal Gastrointestinal: Denies abdominal pain Endocrine Endocrine: Denies palpitations Physical Exam Vital Signs: Vital Signs: Last Vital Signs Temp 97.8 F 05/21/25 14:30 Pulse 70 05/21/25 14:45 Resp 16 05/21/25 14:45 BP 148/68 H 05/21/25 14:45 Pulse Ox 94 05/21/25 14:45 O2 Del Method Nasal Cannula 05/21/25 14:45 O2 Flow Rate 2 05/21/25 14:45 BMI result Body Mass Index 24.1 Const: General: cooperative, comfortable, no acute distress, alert and awake Nutritional Appearance: average body habitus Orientation/consciousness: patient oriented x3 Resp: Effort & Inspection: normal respiratory effort, able to speak in complete sentences, no respiratory distress and no use of accessory muscles Cardio: Rate: regular rate GI: Inspection: No distended Neuro: General: patient oriented x3 Extrem: Other: s/p right BKA; L transmetatarsal amp; left foot wrapped Objective Data Active Medications Acetaminophen (Acetaminophen 325 Mg Tablet) 650 mg PO Q6H PRN PRN Reason: Pain, Mild 1-3,fever,headache Albuterol/Ipratropium (Albuterol/Iprat 2.5/0.5mg 3 Ml Ampul.Neb) 3 ml INHALE RQ4H WHILE AWAKE PRN PRN Reason: Shortness of Breath Albuterol/Ipratropium (Albuterol/Iprat 2.5/0.5mg 3 Ml Ampul.Neb) 3 ml INHALE ONCE PRN PRN Reason: Bronchospasm/wheezing Stop: 05/21/25 18:22 Amitriptyline HCl (Amitriptyline Hcl 50 Mg Tablet) 50 mg PO BEDTIME [facility] Last Admin: 05/20/25 22:35 Dose: 50 mg Documented By: TAMIKO Bumetanide (Bumetanide 1 Mg Tablet) 1 mg PO DAILY [facility]; Protocol Last Admin: 05/21/25 08:50 Dose: 1 mg Documented By: TARIQ Calcium Carbonate (Calcium Carbonate 750 Mg Tab.Chew) 750 mg PO Q4H PRN PRN Reason: Heartburn Collagenase (Collagenase Clostridium Hist. 30 Gm Tube) 1 appl TOPICAL DAILY [facility]; Protocol Last Admin: 05/21/25 11:51 Dose: Not Given Documented By: TARIQ Non-Admin Reason: Off Unit: Surgery Dextrose (Dextrose 50 % 25 Gm/50 Ml Syringe) 25 gm IVPUSH Q15M PRN; Protocol PRN Reason: per Hypoglycemia Standing Ord. Dextrose (Dextrose 50 % 25 Gm/50 Ml Syringe) 25 gm IVPUSH Q15M PRN; Protocol PRN Reason: per Hypoglycemia Standing Ord. Empagliflozin (Empagliflozin 10 Mg Tablet) 10 mg PO DAILY [facility] On Hold: 05/18/25 13:54 Last Admin: 05/18/25 09:04 Dose: 10 mg Documented By: KANDI Enoxaparin Sodium (Enoxaparin Sodium 40 Mg/0.4 Ml Syringe) 40 mg SUBCUT BEDTIME [facility] Last Admin: 05/20/25 22:47 Dose: Not Given Documented By: TAMIKO Non-Admin Reason: Physician Approved Comments: per Dr Durham, pt plan for OR tomorrow Fentanyl (Fentanyl Citrate/Pf 100 Mcg/2 Ml Vial) 25 mcg IVPUSH Q5M PRN PRN Reason: Pain, Moderate to Severe (Pain Scale 4-10) Stop: 05/21/25 18:22 Glucose (Glucose Gel 15 Gm Gel..Gram.) 15 gm PO Q15M PRN; Protocol PRN Reason: per Hypoglycemia Standing Ord. Piperacillin Sod/Tazobactam (Sod 3.375 gm/ Sodium Chloride) 50 mls @ 100 mls/hr IV Q6H [facility] Last Admin: 05/21/25 11:45 Dose: 100 mls/hr Documented By: TARIQ Lactated Ringer's (Lr) 1,000 mls @ 80 mls/hr IVCONT .[id number] [facility], [facility] Last Admin: 05/21/25 12:52 Dose: 80 mls/hr Documented By: PUNEET Insulin Glargine (Insulin Glargine,Hum.Rec.Anlog 100 Unit/Ml 10 Ml Vial) 20 unit SUBCUT DAILY [facility] Last Admin: 05/21/25 10:17 Dose: Not Given Documented By: TARIQ Non-Admin Reason: Physician Held Med Insulin Human Lispro (Insulin Lispro 100 Unit/Ml 3 Ml Vial) 0 unit SUBCUT QIDACHS [facility], [facility]; Protocol Last Admin: 05/21/25 11:41 Dose: Not Given Documented By: TARIQ Non-Admin Reason: No Insulin Coverage Magnesium Hydroxide (Milk Of Magnesia 30 Ml Oral.Susp) 30 ml PO DAILY PRN PRN Reason: Constipation Melatonin (Melatonin 3 Mg Tablet) 6 mg PO BEDTIME PRN PRN Reason: Insomnia Methadone HCl (Methadone Hcl 20 Mg/2 Ml Oral.Conc) 80 mg PO DAILY [facility] Last Admin: 05/21/25 08:47 Dose: 80 mg Documented By: TARIQ Co-signed By: ALINA Naloxone HCl (Naloxone Hcl 0.4 Mg/Ml Vial) 0.04 mg IVPUSH Q5M PRN PRN Reason: Excessive sedation or RR < 8 Ondansetron HCl (Ondansetron Hcl 4 Mg/2 Ml Vial) 4 mg IVPUSH ONCE PRN PRN Reason: Nausea and Vomiting Stop: 05/21/25 18:22 Polyethylene Glycol (Polyethylene Glycol 3350 17 Gm Powd.Pack) 17 gm PO DAILY PRN PRN Reason: Constipation Sacubitril/Valsartan (Sacubitril/Valsartan 49/51 1 Tab Tablet) 1 tab PO BID [facility]; Protocol Last Admin: 05/21/25 08:47 Dose: 1 tab Documented By: TARIQ Sodium Chloride (0.9 % Sodium Chloride Flush 3 Ml Syringe) 3 ml IVFLUSH QSHIFT [facility] Last Admin: 05/21/25 08:48 Dose: 3 ml Documented By: TARIQ Spironolactone (Spironolactone 25 Mg Tablet) 25 mg PO DAILY [facility]; Protocol Last Admin: 05/21/25 08:47 Dose: 25 mg Documented By: TARIQ Labs 05/20/25 06:00 05/20/25 06:53 Labs: Laboratory Results - last 24 hr 05/20/25 05/20/25 05/20/25 15:20 20:39 22:35 POC Glucose 194 H 179 H 172 H 05/21/25 05/21/25 07:44 11:30 POC Glucose 135 H 125 H Microbiology Microbiology Results: Microbiology 05/20/25 10:08 Blood Culture - Preliminary Blood - Venous No growth after 24 hours. 05/20/25 10:08 Blood Culture - Preliminary Blood - Venous No growth after 24 hours. Assessment and Plan (1) Congestive heart failure: Status: Acute (2) Diabetic infection of left foot: Status: Acute (3) Acute osteomyelitis of left foot: Status: Acute Plan 64-year-old male with a past medical history of HTN, HLD, dm, right BKA, chronic diabetic left foot ulcer, history of left TMA, AFib-not on anticoagulation presented to the hospital today with a chief complaint of left foot pain redness and swelling. Noted to have acute osteomyelitis of the left foot stump and cellulitis. Gram positive bacteremia blood cultures 1 growing MSSA, 1 growing group G Streptococcus bacteremia on IV zosyn started 05/15, stop IV vanco Surveillance blood cultures negative to date (1st negative cultures 05/20) Echo negative for vegetation Seen by ID, recommend 4-6 weeks of IV antibiotics depending on removal of infected bone or not-will need PICC line prior to discharge Left foot stump acute osteomyelitis Left leg cellulitis/Diabetic foot ulcer Vascular surgery> no interventions General surgery-initially plan for BKA, patient does not want amputation at this time, plan for limb salvaging management with IV antibiotics and debridement s/p debridement with veraflow wound vac placement 05/21 d/w ID recommend 6 weeks of IV kefzol without removal of infected bone or 4 weeks of IV kefzol if bone is removed Microcytic Anemia, non blood loss Transfused 2 units of PRBCs Discussed with Cardiology as patient's symptoms maybe secondary to myocardial ischemia, recommended to transfuse to keep hematocrit above 30 H/H stable Acute hypoxic respiratory failure secondary to new onset heart failure with reduced ejection fraction Echocardiogram with EF of 25-30% CT chest with pulmonary edema and small pleural effusion. Cardiology consult> Added Jardiance, aldactone and initially treated with IV bumex, now transitioned to po bumex s/p 2 units of packed red blood cells, goal to keep hct >30 Dobutamine stress test with no acute ischemia will need beta-stephanie at some point in the future Diabetes 2 Insulin sliding scale and lantus Opiate dependence Continue methadone. Hypertension Patient on diltiazem, hold due to acute CHF Now on Aldactone, Entresto DVT prophylaxis: Lovenox Code status: Full code Quality Stroke Does the patient have a stroke diagnosis?: No VTE Prior VTE?: No VTE Risk Level:: Medical - moderate - high VTE Device Contraindication: Treatment Not Indicated VTE Drug Contraindication: N/A - Med Ordered
--- NOTE | 2025-05-21 15:08 | MHC.CM.PN ---
Per round, pt. is not ready to DC, he will have debridement on would today. CM to follow, pt. may need STR at DC.
[2025-05-21 16:04] LABS: Glucose, Whole Blood 109 mg/dL (60-115)
[2025-05-21 20:38] LABS: Glucose, Whole Blood 204 mg/dL (60-115)
[2025-05-22] VITALS (7 sets, daily range): BP systolic 119–140; BP diastolic 62–76; PULSE 69–85; RESP 16–20; TEMP 36.1–36.8; O2SAT 93–96
[2025-05-22 06:26] LABS: Hematocrit 32.8 % (42.0-52.0); Hemoglobin 10.1 g/dl (14.0-18.0); Mean Corpuscular HGB Conc 30.8 g/dl (31.0-36.0); Mean Corpuscular Hemoglobin 24.9 pg (27.0-33.0); Mean Corpuscular Volume 81.0 fL (80.0-98.0); NRBC Abs Auto 0.000 X10*3/uL (0.0-0.012); NRBC Pct Auto 0.0 /100WBC (0.0-0.2); Platelet Count 488 X10*3/uL (160-400); Red Blood Count 4.05 X10*6/uL (4.60-5.80); White Blood Count 11.9 X10*3/uL (4.8-10.8)
[2025-05-22 06:40] LABS: Anion Gap 13 (12-20); Blood Urea Nitrogen 24 mg/dL (9-16); Calcium 8.3 mg/dL (8.4-10.2); Carbon Dioxide 27 mmol/L (22-29); Chloride 102 mmol/L (96-108); Creatinine Clr Calc Pharmacy 80.0; Estimated Glomerular Filt Rate > 60; Potassium 3.9 mmol/L (3.3-5.1); Sodium 138 mmol/L (135-145)
[2025-05-22 07:47] LABS: Glucose, Whole Blood 123 mg/dL (60-115)
[2025-05-22] MEDS: Insulin Glargine,Hum.rec.anlog 100 UNIT/ML 10 ML VIAL 20 UNIT SUBCUT (07:50)
[2025-05-22] MEDS: Sacubitril/Valsartan 49/51 1 TAB TABLET PO ×2 (07:50→21:46)
[2025-05-22] MEDS: 0.9 % Sodium Chloride Flush 3 ML SYRINGE IVFLUSH ×3 (07:51→21:49)
[2025-05-22] MEDS: methADONE HCl 20 MG/2 ML ORAL.CONC 80 MG PO (07:51)
--- NOTE | 2025-05-22 10:54 | P.PNGS_ITS ---
Subjective Subjective Date of Service: 05/22/25 Interval history: Debridement done yesterday, wound VAC placed on the left foot stump Says he feels okay States pain control is adequate Physical Exam 2 Vital Signs: Vital Signs: Last Vital Signs Temp 96.9 F 05/22/25 07:17 Pulse 69 05/22/25 07:17 Resp 16 05/22/25 07:17 BP 140/71 H 05/22/25 07:17 Pulse Ox 96 05/22/25 07:17 O2 Del Method Room Air 05/22/25 07:17 O2 Flow Rate 2 05/21/25 15:10 BMI result Body Mass Index 24.1 Const: General: comfortable and no acute distress Resp: Effort & Inspection: normal respiratory effort Cardio: Rate: regular rate Extrem: Other: Wound VAC in place, appears to have good seal Objective Data Active Medications Acetaminophen (Acetaminophen 325 Mg Tablet) 650 mg PO Q6H PRN PRN Reason: Pain, Mild 1-3,fever,headache Last Admin: 05/22/25 07:49 Dose: 650 mg Documented By: MAXIMILIANO Albuterol/Ipratropium (Albuterol/Iprat 2.5/0.5mg 3 Ml Ampul.Neb) 3 ml INHALE RQ4H WHILE AWAKE PRN PRN Reason: Shortness of Breath Amitriptyline HCl (Amitriptyline Hcl 50 Mg Tablet) 50 mg PO BEDTIME [facility] Last Admin: 05/21/25 21:01 Dose: 50 mg Documented By: NARAYAN Bumetanide (Bumetanide 1 Mg Tablet) 1 mg PO DAILY [facility]; Protocol Last Admin: 05/22/25 07:49 Dose: 1 mg Documented By: MAXIMILIANO Calcium Carbonate (Calcium Carbonate 750 Mg Tab.Chew) 750 mg PO Q4H PRN PRN Reason: Heartburn Collagenase (Collagenase Clostridium Hist. 30 Gm Tube) 1 appl TOPICAL DAILY [facility]; Protocol Last Admin: 05/22/25 07:50 Dose: 1 appl Documented By: MAXIMILIANO Dextrose (Dextrose 50 % 25 Gm/50 Ml Syringe) 25 gm IVPUSH Q15M PRN; Protocol PRN Reason: per Hypoglycemia Standing Ord. Dextrose (Dextrose 50 % 25 Gm/50 Ml Syringe) 25 gm IVPUSH Q15M PRN; Protocol PRN Reason: per Hypoglycemia Standing Ord. Empagliflozin (Empagliflozin 10 Mg Tablet) 10 mg PO DAILY [facility] On Hold: 05/18/25 13:54 Last Admin: 05/18/25 09:04 Dose: 10 mg Documented By: KANDI Enoxaparin Sodium (Enoxaparin Sodium 40 Mg/0.4 Ml Syringe) 40 mg SUBCUT BEDTIME [facility] Last Admin: 05/21/25 21:04 Dose: 40 mg Documented By: NARAYAN Glucose (Glucose Gel 15 Gm Gel..Gram.) 15 gm PO Q15M PRN; Protocol PRN Reason: per Hypoglycemia Standing Ord. Cefazolin Sodium/Dextrose (Ancef) 2 gm in 50 mls @ 100 mls/hr IV Q8H [facility] Last Infusion: 05/22/25 08:23 Dose: Infused Documented By: MAXIMILIANO Insulin Glargine (Insulin Glargine,Hum.Rec.Anlog 100 Unit/Ml 10 Ml Vial) 20 unit SUBCUT DAILY [facility] Last Admin: 05/22/25 07:50 Dose: 20 unit Documented By: MAXIMILIANO Insulin Human Lispro (Insulin Lispro 100 Unit/Ml 3 Ml Vial) 0 unit SUBCUT QIDACHS [facility]; Protocol Last Admin: 05/22/25 07:38 Dose: Not Given Documented By: MAXIMILIANO Non-Admin Reason: No Insulin Coverage Comments: poc 123 Magnesium Hydroxide (Milk Of Magnesia 30 Ml Oral.Susp) 30 ml PO DAILY PRN PRN Reason: Constipation Melatonin (Melatonin 3 Mg Tablet) 6 mg PO BEDTIME PRN PRN Reason: Insomnia Last Admin: 05/21/25 21:01 Dose: 6 mg Documented By: NARAYAN Methadone HCl (Methadone Hcl 20 Mg/2 Ml Oral.Conc) 80 mg PO DAILY [facility] Last Admin: 05/22/25 07:51 Dose: 80 mg Documented By: MAXIMILIANO Co-signed By: LEONOR Naloxone HCl (Naloxone Hcl 0.4 Mg/Ml Vial) 0.04 mg IVPUSH Q5M PRN PRN Reason: Excessive sedation or RR < 8 Polyethylene Glycol (Polyethylene Glycol 3350 17 Gm Powd.Pack) 17 gm PO DAILY PRN PRN Reason: Constipation Sacubitril/Valsartan (Sacubitril/Valsartan 49/51 1 Tab Tablet) 1 tab PO BID [facility]; Protocol Last Admin: 05/22/25 07:50 Dose: 1 tab Documented By: MAXIMILIANO Sodium Chloride (0.9 % Sodium Chloride Flush 3 Ml Syringe) 3 ml IVFLUSH QSHIFT [facility] Last Admin: 05/22/25 07:51 Dose: 3 ml Documented By: MAXIMILIANO Spironolactone (Spironolactone 25 Mg Tablet) 25 mg PO DAILY [facility]; Protocol Last Admin: 05/22/25 07:49 Dose: 25 mg Documented By: MAXIMILIANO Labs 05/22/25 06:05 05/22/25 06:05 Labs: Laboratory Results - last 24 hr 05/21/25 05/21/25 05/21/25 11:30 16:01 20:35 MCV MCH MCHC RDW Plt Count MPV Absolute Nucleated RBC Nucleated RBC % (auto) Anion Gap Estim Creat Clear Calc Estimated GFR POC Glucose 125 H 109 204 H Random Glucose Calcium 05/22/25 05/22/25 06:05 07:22 MCV 81.0 MCH 24.9 L MCHC 30.8 L RDW 15.4 Plt Count 488 H MPV 10.1 Absolute Nucleated RBC 0.000 Nucleated RBC % (auto) 0.0 Anion Gap 13 Estim Creat Clear Calc 80.0 Estimated GFR > 60 POC Glucose 123 H Random Glucose 142 H Calcium 8.3 L Microbiology Microbiology Results: Microbiology 05/20/25 10:08 Blood Culture - Preliminary Blood - Venous No growth after 24 hours. 05/20/25 10:08 Blood Culture - Preliminary Blood - Venous No growth after 24 hours. Procedures Date of Service Date of Service: 05/22/25 Progress Note: A&P Assessment and plan (1) Open wound: Status: Acute Assessment and Plan: Debridement done yesterday Wound VAC appears to be working well with good seal Pain management Wound VAC change planned for Saturday Continue current care Blood sugar control Time Spent With Patient Time: Total time managing care of this patient today ____ minutes. Quality Stroke Does the patient have a stroke diagnosis?: No VTE Prior VTE?: No VTE Risk Level:: Medical - moderate - high VTE Device Contraindication: Treatment Not Indicated VTE Drug Contraindication: N/A - Med Ordered
[2025-05-22 10:57] LABS: Glucose, Whole Blood 272 mg/dL (60-115)
--- NOTE | 2025-05-22 12:14 | PM.PNCARD ---
Subjective Subjective Date of Service: 05/22/25 Principal diagnosis: CHF Interval history: Seen and examined at bedside. Physical Exam Vital Signs: Last Vital Signs Temp 97.3 F 05/22/25 11:54 Pulse 85 05/22/25 11:54 Resp 20 05/22/25 11:54 BP 139/63 05/22/25 11:54 Pulse Ox 95 05/22/25 11:54 O2 Del Method Room Air 05/22/25 11:54 O2 Flow Rate 2 05/21/25 15:10 BMI result Body Mass Index 24.1 GENERAL APPEARANCE: in no acute distress, pleasant. NECK: no carotid bruit, positive jugular venous distention. SKIN: no suspicious lesions, warm and dry. HEART: no murmurs, regular rate and rhythm. LUNGS: Crackles both lungs. ABDOMEN: soft, nontender. EXTREMITIES: Right amputation. Left transmetatarsal amputation with wound VAC over the heel. PERIPHERAL PULSES: equal. NEUROLOGIC: No gross deficits, AAO X 3 Objective Labs and Meds 05/22/25 06:05 05/22/25 06:05 Lab results: Laboratory Results - last 24 hr 05/21/25 05/21/25 05/22/25 16:01 20:35 06:05 WBC 11.9 H RBC 4.05 L Hgb 10.1 L Hct 32.8 L MCV 81.0 MCH 24.9 L MCHC 30.8 L RDW 15.4 Plt Count 488 H MPV 10.1 Absolute Nucleated RBC 0.000 Nucleated RBC % (auto) 0.0 Sodium 138 Potassium 3.9 Chloride 102 Carbon Dioxide 27 Anion Gap 13 BUN 24 H Creatinine 1.19 Estim Creat Clear Calc 80.0 Estimated GFR > 60 POC Glucose 109 204 H Random Glucose 142 H Calcium 8.3 L 05/22/25 05/22/25 07:22 10:50 WBC RBC Hgb Hct MCV MCH MCHC RDW Plt Count MPV Absolute Nucleated RBC Nucleated RBC % (auto) Sodium Potassium Chloride Carbon Dioxide Anion Gap BUN Creatinine Estim Creat Clear Calc Estimated GFR POC Glucose 123 H 272 H Random Glucose Calcium Progress Note: A&P Assessment and plan (1) Congestive heart failure: Status: Acute (2) Cardiomyopathy: Status: Acute Plan Pleasant 64 year gentleman presenting with diabetic foot infection with osteomyelitis and congestive heart failure. Echocardiography has shown [id number] LV dysfunction. He is on guideline directed medical therapy. I think we can reduce the beta-blockers as there is no clear plan of amputation and wound VAC will be tried. Adding carvedilol 3.125 mg twice a day. Continue rest of the medications as before. Thank you for allowing me to participate in the care of your patient. Please feel free to contact me if you have any questions. Time Spent With Patient Time: Total time managing care of this patient today ____ minutes. Progress Note: Quality Stroke Does the patient have a stroke diagnosis?: No Procedures Date of Service Date of Service: 05/22/25
--- NOTE | 2025-05-22 13:06 | P.PNIM_ITS ---
Subjective Subjective Date of Service: 05/22/25 Interval History: Seen and examined this morning Follow-up for left foot wound, bacteremia Status post debridement and wound VAC placement yesterday, tolerating well. Pain controlled Constitutional Constitutional: Denies chills and Denies fever(s) Physical Exam 2 Vital Signs: Vital Signs: Last Vital Signs Temp 97.3 F 05/22/25 11:54 Pulse 85 05/22/25 11:54 Resp 20 05/22/25 11:54 BP 139/63 05/22/25 11:54 Pulse Ox 95 05/22/25 11:54 O2 Del Method Room Air 05/22/25 11:54 O2 Flow Rate 2 05/21/25 15:10 BMI result Body Mass Index 24.1 Const: General: cooperative, comfortable, no acute distress, alert and awake Nutritional Appearance: average body habitus Orientation/consciousness: p atient oriented x3 Resp: Effort & Inspection: normal respiratory effort, able to speak in complete sentences, no respiratory distress and no use of accessory muscles Cardio: Rate: regular rate GI: Inspection: No distended Neuro: General: patient oriented x3 Extrem: Other: s/p right BKA; L leg wound with Veraflow wound vac in place Objective Data Active Medications Acetaminophen (Acetaminophen 325 Mg Tablet) 650 mg PO Q6H PRN PRN Reason: Pain, Mild 1-3,fever,headache Last Admin: 05/22/25 07:49 Dose: 650 mg Documented By: MAXIMILIANO Albuterol/Ipratropium (Albuterol/Iprat 2.5/0.5mg 3 Ml Ampul.Neb) 3 ml INHALE RQ4H WHILE AWAKE PRN PRN Reason: Shortness of Breath Amitriptyline HCl (Amitriptyline Hcl 50 Mg Tablet) 50 mg PO BEDTIME [facility] Last Admin: 05/21/25 21:01 Dose: 50 mg Documented By: NARAYAN Bumetanide (Bumetanide 1 Mg Tablet) 1 mg PO DAILY [facility]; Protocol Last Admin: 05/22/25 07:49 Dose: 1 mg Documented By: MAXIMILIANO Calcium Carbonate (Calcium Carbonate 750 Mg Tab.Chew) 750 mg PO Q4H PRN PRN Reason: Heartburn Carvedilol (Carvedilol 3.125 Mg Tablet) 3.125 mg PO BID [facility]; Protocol Last Admin: 05/22/25 11:46 Dose: 3.125 mg Documented By: MAXIMILIANO Collagenase (Collagenase Clostridium Hist. 30 Gm Tube) 1 appl TOPICAL DAILY [facility]; Protocol Last Admin: 05/22/25 07:50 Dose: 1 appl Documented By: MAXIMILIANO Dextrose (Dextrose 50 % 25 Gm/50 Ml Syringe) 25 gm IVPUSH Q15M PRN; Protocol PRN Reason: per Hypoglycemia Standing Ord. Dextrose (Dextrose 50 % 25 Gm/50 Ml Syringe) 25 gm IVPUSH Q15M PRN; Protocol PRN Reason: per Hypoglycemia Standing Ord. Empagliflozin (Empagliflozin 10 Mg Tablet) 10 mg PO DAILY [facility] On Hold: 05/18/25 13:54 Last Admin: 05/18/25 09:04 Dose: 10 mg Documented By: KANDI Enoxaparin Sodium (Enoxaparin Sodium 40 Mg/0.4 Ml Syringe) 40 mg SUBCUT BEDTIME [facility] Last Admin: 05/21/25 21:04 Dose: 40 mg Documented By: NARAYAN Glucose (Glucose Gel 15 Gm Gel..Gram.) 15 gm PO Q15M PRN; Protocol PRN Reason: per Hypoglycemia Standing Ord. Cefazolin Sodium/Dextrose (Ancef) 2 gm in 50 mls @ 100 mls/hr IV Q8H [facility] Last Infusion: 05/22/25 08:23 Dose: Infused Documented By: MAXIMILIANO Insulin Glargine (Insulin Glargine,Hum.Rec.Anlog 100 Unit/Ml 10 Ml Vial) 20 unit SUBCUT DAILY [facility] Last Admin: 05/22/25 07:50 Dose: 20 unit Documented By: MAXIMILIANO Insulin Human Lispro (Insulin Lispro 100 Unit/Ml 3 Ml Vial) 0 unit SUBCUT QIDACHS [facility]; Protocol Last Admin: 05/22/25 11:09 Dose: 6 unit Documented By: MAXIMILIANO Magnesium Hydroxide (Milk Of Magnesia 30 Ml Oral.Susp) 30 ml PO DAILY PRN PRN Reason: Constipation Melatonin (Melatonin 3 Mg Tablet) 6 mg PO BEDTIME PRN PRN Reason: Insomnia Last Admin: 05/21/25 21:01 Dose: 6 mg Documented By: NARAYAN Methadone HCl (Methadone Hcl 20 Mg/2 Ml Oral.Conc) 80 mg PO DAILY [facility] Last Admin: 05/22/25 07:51 Dose: 80 mg Documented By: MAXIMILIANO Co-signed By: LEONOR Naloxone HCl (Naloxone Hcl 0.4 Mg/Ml Vial) 0.04 mg IVPUSH Q5M PRN PRN Reason: Excessive sedation or RR < 8 Polyethylene Glycol (Polyethylene Glycol 3350 17 Gm Powd.Pack) 17 gm PO DAILY PRN PRN Reason: Constipation Sacubitril/Valsartan (Sacubitril/Valsartan 1 Tab Tablet) 1 tab PO BID [facility]; Protocol Last Admin: 05/22/25 07:50 Dose: 1 tab Documented By: MAXIMILIANO Sodium Chloride (0.9 % Sodium Chloride Flush 3 Ml Syringe) 3 ml IVFLUSH QSHIFT [facility] Last Admin: 05/22/25 07:51 Dose: 3 ml Documented By: MAXIMILIANO Spironolactone (Spironolactone 25 Mg Tablet) 25 mg PO DAILY [facility]; Protocol Last Admin: 05/22/25 07:49 Dose: 25 mg Documented By: MAXIMILIANO Labs 05/22/25 06:05 05/22/25 06:05 Labs: Laboratory Results - last 24 hr 05/21/25 05/21/25 05/22/25 16:01 20:35 06:05 MCV 81.0 MCH 24.9 L MCHC 30.8 L RDW 15.4 Plt Count 488 H MPV 10.1 Absolute Nucleated RBC 0.000 Nucleated RBC % (auto) 0.0 Anion Gap 13 Estim Creat Clear Calc 80.0 Estimated GFR > 60 POC Glucose 109 204 H Random Glucose 142 H Calcium 8.3 L 05/22/25 05/22/25 07:22 10:50 MCV MCH MCHC RDW Plt Count MPV Absolute Nucleated RBC Nucleated RBC % (auto) Anion Gap Estim Creat Clear Calc Estimated GFR POC Glucose 123 H 272 H Random Glucose Calcium Microbiology Microbiology Results: Microbiology 05/20/25 10:08 Blood Culture - Preliminary Blood - Venous No growth after 48 hours. 05/20/25 10:08 Blood Culture - Preliminary Blood - Venous No growth after 48 hours. Assessment and Plan (1) Cardiomyopathy: Status: Acute (2) Diabetic infection of left foot: Status: Acute (3) Acute osteomyelitis of left foot: Status: Acute (4) Bacteremia: Status: Acute Plan 64-year-old male with a past medical history of HTN, HLD, dm, right BKA, chronic diabetic left foot ulcer, history of left TMA, AFib-not on anticoagulation presented to the hospital today with a chief complaint of left foot pain redness and swelling. Noted to have acute osteomyelitis of the left foot stump and cellulitis. Gram positive bacteremia blood cultures 1 growing MSSA, 1 growing group G Streptococcus bacteremia on IV zosyn started 05/15, stop IV vanco Surveillance blood cultures negative to date (1st negative cultures 05/20) Echo negative for vegetation Seen by ID, recommend 4-6 weeks of IV antibiotics depending on removal of infected bone or not-will need PICC line prior to discharge Left foot stump acute osteomyelitis Left leg cellulitis/Diabetic foot ulcer Vascular surgery> no interventions General surgery-initially plan for BKA, patient does not want amputation at this time, plan for limb salvaging management with IV antibiotics and debridement s/p debridement with veraflow wound vac placement 05/21 d/w ID recommend 6 weeks of IV kefzol without removal of infected bone or 4 weeks of IV kefzol if bone is removed Microcytic Anemia, non blood loss Transfused 2 units of PRBCs Discussed with Cardiology as patient's symptoms maybe secondary to myocardial ischemia, recommended to transfuse to keep hematocrit above 30 H/H stable Acute hypoxic respiratory failure secondary to new onset heart failure with reduced ejection fraction Echocardiogram with EF of 25-30% CT chest with pulmonary edema and small pleural effusion. Cardiology consult> rec Jardiance (on hold due to planned surgery), aldactone and initially treated with IV bumex, now transitioned to po bumex adding coreg 3.125bid s/p 2 units of packed red blood cells, goal to keep hct >30 Dobutamine stress test with no acute ischemia Diabetes 2 Insulin sliding scale and lantus Opiate dependence Continue methadone. Hypertension Patient on diltiazem, hold due to acute CHF Now on Aldactone, Entresto DVT prophylaxis: Lovenox Code status: Full code Quality Stroke Does the patient have a stroke diagnosis?: No VTE Prior VTE?: No VTE Risk Level:: Medical - moderate - high VTE Device Contraindication: Treatment Not Indicated VTE Drug Contraindication: N/A - Med Ordered
--- NOTE | 2025-05-22 15:00 | HO.POSTANES ---
Post Anesthesia Evaluation Post Anesthesia Evaluation Date of Service: 05/22/25 Vital Signs: Vital Signs Temp Pulse Resp BP Pulse Ox O2 Del Method 05/22/25 11:54 97.3 F 85 20 139/63 95 Room Air 05/22/25 11:46 69 140/71 H 05/22/25 07:17 96.9 F 69 16 140/71 H 96 Room Air 05/22/25 03:19 97.3 F 73 18 127/62 94 Room Air Anesthesia: General LMA Mental Status: Awake Pain Control: Satisfactory Nausea/Vomiting: None Hydration: Adequate Anesthesia-Related Issues: No Anes. Related Issues
[2025-05-22 16:06] LABS: Glucose, Whole Blood 152 mg/dL (60-115)
[2025-05-22 21:28] LABS: Glucose, Whole Blood 219 mg/dL (60-115)
[2025-05-23] VITALS (10 sets, daily range): BP systolic 128–142; BP diastolic 66–77; PULSE 60–71; RESP 18–20; TEMP 36.6–36.8; O2SAT 94–97
[2025-05-23 07:16] LABS: Glucose, Whole Blood 139 mg/dL (60-115)
[2025-05-23] MEDS: methADONE HCl 20 MG/2 ML ORAL.CONC 80 MG PO (07:18)
[2025-05-23] MEDS: 0.9 % Sodium Chloride Flush 3 ML SYRINGE IVFLUSH ×3 (07:18→20:24)
[2025-05-23] MEDS: Insulin Glargine,Hum.rec.anlog 100 UNIT/ML 10 ML VIAL 20 UNIT SUBCUT (07:18)
[2025-05-23] MEDS: Sacubitril/Valsartan 49/51 1 TAB TABLET PO ×2 (07:20→20:24)
[2025-05-23 11:02] LABS: Glucose, Whole Blood 189 mg/dL (60-115)
--- NOTE | 2025-05-23 11:17 | P.PNIM_ITS ---
Subjective Subjective Date of Service: 05/23/25 Interval History: seen and examined this morning follow up for left foot wound No overnight events No specific complaints Constitutional Constitutional: Denies chills and Denies fever(s) Gastrointestinal Gastrointestinal: Denies abdominal pain, Denies diarrhea, Denies nausea and Denies vomiting Physical Exam 2 Vital Signs: Vital Signs: Last Vital Signs Temp 97.8 F 05/23/25 07:04 Pulse 71 05/23/25 07:19 Resp 18 05/23/25 07:04 BP 130/71 05/23/25 07:20 Pulse Ox 94 05/23/25 07:04 O2 Del Method Room Air 05/23/25 07:04 O2 Flow Rate 2 05/21/25 15:10 BMI result Body Mass Index 24.1 Const: General: cooperative, comfortable, no acute distress, alert and awake Nutritional Appearance: average body habitus Orientation/consciousness: p atient oriented x3 Resp: Effort & Inspection: normal respiratory effort, able to speak in complete sentences, no respiratory distress and no use of accessory muscles Cardio: Rate: regular rate GI: Inspection: No distended Neuro: General: patient oriented x3 Extrem: Other: s/p right BKA; L leg wound with Veraflow wound vac in place Objective Data Active Medications Acetaminophen (Acetaminophen 325 Mg Tablet) 650 mg PO Q6H PRN PRN Reason: Pain, Mild 1-3,fever,headache Last Admin: 05/23/25 07:19 Dose: 650 mg Documented By: MAXIMILIANO Albuterol/Ipratropium (Albuterol/Iprat 2.5/0.5mg 3 Ml Ampul.Neb) 3 ml INHALE RQ4H WHILE AWAKE PRN PRN Reason: Shortness of Breath Amitriptyline HCl (Amitriptyline Hcl 50 Mg Tablet) 50 mg PO BEDTIME [facility] Last Admin: 05/22/25 21:46 Dose: 50 mg Documented By: DEV Bumetanide (Bumetanide 1 Mg Tablet) 1 mg PO DAILY [facility]; Protocol Last Admin: 05/23/25 07:20 Dose: 1 mg Documented By: MAXIMILIANO Calcium Carbonate (Calcium Carbonate 750 Mg Tab.Chew) 750 mg PO Q4H PRN PRN Reason: Heartburn Carvedilol (Carvedilol 3.125 Mg Tablet) 3.125 mg PO BID [facility]; Protocol Last Admin: 05/23/25 07:19 Dose: 3.125 mg Documented By: MAXIMILIANO Collagenase (Collagenase Clostridium Hist. 30 Gm Tube) 1 appl TOPICAL DAILY [facility]; Protocol Last Admin: 05/23/25 07:19 Dose: 1 appl Documented By: MAXIMILIANO Dextrose (Dextrose 50 % 25 Gm/50 Ml Syringe) 25 gm IVPUSH Q15M PRN; Protocol PRN Reason: per Hypoglycemia Standing Ord. Dextrose (Dextrose 50 % 25 Gm/50 Ml Syringe) 25 gm IVPUSH Q15M PRN; Protocol PRN Reason: per Hypoglycemia Standing Ord. Empagliflozin (Empagliflozin 10 Mg Tablet) 10 mg PO DAILY [facility] On Hold: 05/18/25 13:54 Last Admin: 05/18/25 09:04 Dose: 10 mg Documented By: KANDI Enoxaparin Sodium (Enoxaparin Sodium 40 Mg/0.4 Ml Syringe) 40 mg SUBCUT BEDTIME [facility] Last Admin: 05/22/25 21:46 Dose: 40 mg Documented By: CORNELIUSTEKJuani Glucose (Glucose Gel 15 Gm Gel..Gram.) 15 gm PO Q15M PRN; Protocol PRN Reason: per Hypoglycemia Standing Ord. Cefazolin Sodium/Dextrose (Ancef) 2 gm in 50 mls @ 100 mls/hr IV Q8H [facility] Last Infusion: 05/23/25 08:07 Dose: Infused Documented By: MAXIMILIANO Insulin Glargine (Insulin Glargine,Hum.Rec.Anlog 100 Unit/Ml 10 Ml Vial) 20 unit SUBCUT DAILY [facility] Last Admin: 05/23/25 07:18 Dose: 20 unit Documented By: MAXIMILIANO Insulin Human Lispro (Insulin Lispro 100 Unit/Ml 3 Ml Vial) 0 unit SUBCUT QIDACHS [facility]; Protocol Last Admin: 05/23/25 11:16 Dose: 2 unit Documented By: MAXIMILIANO Magnesium Hydroxide (Milk Of Magnesia 30 Ml Oral.Susp) 30 ml PO DAILY PRN PRN Reason: Constipation Melatonin (Melatonin 3 Mg Tablet) 6 mg PO BEDTIME PRN PRN Reason: Insomnia Last Admin: 05/21/25 21:01 Dose: 6 mg Documented By: NARAYAN Methadone HCl (Methadone Hcl 20 Mg/2 Ml Oral.Conc) 80 mg PO DAILY [facility] Last Admin: 05/23/25 07:18 Dose: 80 mg Documented By: MAXIMILIANO Co-signed By: STEVEN Naloxone HCl (Naloxone Hcl 0.4 Mg/Ml Vial) 0.04 mg IVPUSH Q5M PRN PRN Reason: Excessive sedation or RR < 8 Polyethylene Glycol (Polyethylene Glycol 3350 17 Gm Powd.Pack) 17 gm PO DAILY PRN PRN Reason: Constipation Sacubitril/Valsartan (Sacubitril/Valsartan 49/51 1 Tab Tablet) 1 tab PO BID [facility]; Protocol Last Admin: 05/23/25 07:20 Dose: 1 tab Documented By: MAXIMILIANO Sodium Chloride (0.9 % Sodium Chloride Flush 3 Ml Syringe) 3 ml IVFLUSH QSHIFT [facility] Last Admin: 05/23/25 07:18 Dose: 3 ml Documented By: MAXIMILIANO Spironolactone (Spironolactone 25 Mg Tablet) 25 mg PO DAILY [facility]; Protocol Last Admin: 05/23/25 07:19 Dose: 25 mg Documented By: MAXIMILIANO Labs 05/22/25 06:05 05/22/25 06:05 Labs: Laboratory Results - last 24 hr 05/22/25 05/22/25 05/23/25 15:57 21:19 07:06 POC Glucose 152 H 219 H 139 H 05/23/25 10:51 POC Glucose 189 H Microbiology Microbiology Results: Microbiology 05/20/25 10:08 Blood Culture - Preliminary Blood - Venous No growth after 48 hours. 05/20/25 10:08 Blood Culture - Preliminary Blood - Venous No growth after 48 hours. Assessment and Plan (1) Acute osteomyelitis of left foot: Status: Acute Plan 64-year-old male with a past medical history of HTN, HLD, dm, right BKA, chronic diabetic left foot ulcer, history of left TMA, AFib-not on anticoagulation presented to the hospital today with a chief complaint of left foot pain redness and swelling. Noted to have acute osteomyelitis of the left foot stump and cellulitis. Gram positive bacteremia blood cultures 1 growing MSSA, 1 growing group G Streptococcus bacteremia on IV zosyn started 05/15, stop IV vanco Surveillance blood cultures negative to date (1st negative cultures 05/20) Echo negative for vegetation Seen by ID, recommend 4-6 weeks of IV antibiotics depending on removal of infected bone or not-will need PICC line prior to discharge Left foot stump acute osteomyelitis Left leg cellulitis/Diabetic foot ulcer Vascular surgery> no interventions General surgery-initially plan for BKA, patient does not want amputation at this time, plan for limb salvaging management with IV antibiotics and debridement s/p debridement with veraflow wound vac placement 05/21 d/w ID recommend 6 weeks of IV kefzol without removal of infected bone or 4 weeks of IV kefzol if bone is removed Microcytic Anemia, non blood loss Transfused 2 units of PRBCs Discussed with Cardiology as patient's symptoms maybe secondary to myocardial ischemia, recommended to transfuse to keep hematocrit above 30 H/H stable Acute hypoxic respiratory failure secondary to new onset heart failure with reduced ejection fraction Echocardiogram with EF of 25-30% CT chest with pulmonary edema and small pleural effusion. Cardiology consult> rec Jardiance (on hold due to planned surgery), aldactone and initially treated with IV bumex, now transitioned to po bumex adding coreg 3.125bid s/p 2 units of packed red blood cells, goal to keep hct >30 Dobutamine stress test with no acute ischemia Diabetes 2 Insulin sliding scale and lantus Opiate dependence Continue methadone. Hypertension Patient on diltiazem, hold due to acute CHF Now on Aldactone, Entresto DVT prophylaxis: Lovenox Code status: Full code Quality Stroke Does the patient have a stroke diagnosis?: No VTE Prior VTE?: No VTE Risk Level:: Medical - moderate - high VTE Device Contraindication: Treatment Not Indicated VTE Drug Contraindication: N/A - Med Ordered
--- NOTE | 2025-05-23 14:43 | PM.PNGS ---
Subjective Subjective Date of Service: 05/23/25 Interval history: He denies complaints Says he feels well Mild pain on left foot Physical Exam Vital Signs: Vital Signs: Last Vital Signs Temp 97.8 F 05/23/25 11:42 Pulse 69 05/23/25 11:42 Resp 20 05/23/25 11:42 BP 128/77 05/23/25 11:42 Pulse Ox 95 05/23/25 11:42 O2 Del Method Room Air 05/23/25 11:42 O2 Flow Rate 2 05/21/25 15:10 BMI result Body Mass Index 24.1 Const: General: comfortable and no acute distress Resp: Effort & Inspection: normal respiratory effort Extrem: Other: Wound VAC working, still intact no changes on the left foot grossly Objective Data Active Medications Acetaminophen (Acetaminophen 325 Mg Tablet) 650 mg PO Q6H PRN PRN Reason: Pain, Mild 1-3,fever,headache Last Admin: 05/23/25 07:19 Dose: 650 mg Documented By: MAXIMILIANO Albuterol/Ipratropium (Albuterol/Iprat 2.5/0.5mg 3 Ml Ampul.Neb) 3 ml INHALE RQ4H WHILE AWAKE PRN PRN Reason: Shortness of Breath Amitriptyline HCl (Amitriptyline Hcl 50 Mg Tablet) 50 mg PO BEDTIME [facility] Last Admin: 05/22/25 21:46 Dose: 50 mg Documented By: DEV Bumetanide (Bumetanide 1 Mg Tablet) 1 mg PO DAILY [facility]; Protocol Last Admin: 05/23/25 07:20 Dose: 1 mg Documented By: MAXIMILIANO Calcium Carbonate (Calcium Carbonate 750 Mg Tab.Chew) 750 mg PO Q4H PRN PRN Reason: Heartburn Carvedilol (Carvedilol 3.125 Mg Tablet) 3.125 mg PO BID [facility]; Protocol Last Admin: 05/23/25 07:19 Dose: 3.125 mg Documented By: MAXIMILIANO Dextrose (Dextrose 50 % 25 Gm/50 Ml Syringe) 25 gm IVPUSH Q15M PRN; Protocol PRN Reason: per Hypoglycemia Standing Ord. Dextrose (Dextrose 50 % 25 Gm/50 Ml Syringe) 25 gm IVPUSH Q15M PRN; Protocol PRN Reason: per Hypoglycemia Standing Ord. Empagliflozin (Empagliflozin 10 Mg Tablet) 10 mg PO DAILY [facility] On Hold: 05/18/25 13:54 Last Admin: 05/18/25 09:04 Dose: 10 mg Documented By: KANDI Enoxaparin Sodium (Enoxaparin Sodium 40 Mg/0.4 Ml Syringe) 40 mg SUBCUT BEDTIME [facility] Last Admin: 05/22/25 21:46 Dose: 40 mg Documented By: FOSTEKR Glucose (Glucose Gel 15 Gm Gel..Gram.) 15 gm PO Q15M PRN; Protocol PRN Reason: per Hypoglycemia Standing Ord. Cefazolin Sodium/Dextrose (Ancef) 2 gm in 50 mls @ 100 mls/hr IV Q8H [facility] Last Infusion: 05/23/25 08:07 Dose: Infused Documented By: MAXIMILIANO Insulin Glargine (Insulin Glargine,Hum.Rec.Anlog 100 Unit/Ml 10 Ml Vial) 20 unit SUBCUT DAILY [facility] Last Admin: 05/23/25 07:18 Dose: 20 unit Documented By: MAXIMILIANO Insulin Human Lispro (Insulin Lispro 100 Unit/Ml 3 Ml Vial) 0 unit SUBCUT QIDACHS [facility]; Protocol Last Admin: 05/23/25 11:16 Dose: 2 unit Documented By: MAXIMILIANO Magnesium Hydroxide (Milk Of Magnesia 30 Ml Oral.Susp) 30 ml PO DAILY PRN PRN Reason: Constipation Melatonin (Melatonin 3 Mg Tablet) 6 mg PO BEDTIME PRN PRN Reason: Insomnia Last Admin: 05/21/25 21:01 Dose: 6 mg Documented By: NARAYAN Methadone HCl (Methadone Hcl 20 Mg/2 Ml Oral.Conc) 80 mg PO DAILY [facility] Last Admin: 05/23/25 07:18 Dose: 80 mg Documented By: MAXIMILIANO Co-signed By: STEVEN Naloxone HCl (Naloxone Hcl 0.4 Mg/Ml Vial) 0.04 mg IVPUSH Q5M PRN PRN Reason: Excessive sedation or RR < 8 Polyethylene Glycol (Polyethylene Glycol 3350 17 Gm Powd.Pack) 17 gm PO DAILY PRN PRN Reason: Constipation Sacubitril/Valsartan (Sacubitril/Valsartan 49/51 1 Tab Tablet) 1 tab PO BID [facility]; Protocol Last Admin: 05/23/25 07:20 Dose: 1 tab Documented By: HO.ARTING Sodium Chloride (0.9 % Sodium Chloride Flush 3 Ml Syringe) 3 ml IVFLUSH QSHIFT [facility] Last Admin: 05/23/25 07:18 Dose: 3 ml Documented By: MAXIMILIANO Spironolactone (Spironolactone 25 Mg Tablet) 25 mg PO DAILY [facility]; Protocol Last Admin: 05/23/25 07:19 Dose: 25 mg Documented By: MAXIMILIANO Labs 05/22/25 06:05 05/22/25 06:05 Labs: Laboratory Results - last 24 hr 05/22/25 05/22/25 05/23/25 15:57 21:19 07:06 POC Glucose 152 H 219 H 139 H 05/23/25 10:51 POC Glucose 189 H Microbiology Microbiology Results: Microbiology 05/20/25 10:08 Blood Culture - Preliminary Blood - Venous No growth after 48 hours. 05/20/25 10:08 Blood Culture - Preliminary Blood - Venous No growth after 48 hours. Procedures Date of Service Date of Service: 05/23/25 Progress Note: A&P Assessment and plan (1) Open wound: Status: Acute Assessment and Plan: Wound VAC in place here debridement last Saturday Wound VAC working well, with good seal Dressing change planned for tomorrow Continue current care Time Spent With Patient Time: Total time managing care of this patient today ____ minutes. Quality Stroke Does the patient have a stroke diagnosis?: No VTE Prior VTE?: No VTE Risk Level:: Medical - moderate - high VTE Device Contraindication: Treatment Not Indicated VTE Drug Contraindication: N/A - Med Ordered
[2025-05-23 16:14] LABS: Glucose, Whole Blood 154 mg/dL (60-115)
[2025-05-23 20:14] LABS: Glucose, Whole Blood 144 mg/dL (60-115)
[2025-05-24] VITALS (7 sets, daily range): BP systolic 127–163; BP diastolic 68–80; PULSE 61–73; RESP 16–18; TEMP 36.4–37.1; O2SAT 96–97
[2025-05-24 07:18] LABS: Glucose, Whole Blood 118 mg/dL (60-115)
[2025-05-24 07:45] LABS: Anion Gap 11 (12-20); Blood Urea Nitrogen 18 mg/dL (9-16); Calcium 8.5 mg/dL (8.4-10.2); Carbon Dioxide 29 mmol/L (22-29); Chloride 104 mmol/L (96-108); Creatinine Clr Calc Pharmacy 78.1; Estimated Glomerular Filt Rate 60; Potassium 4.7 mmol/L (3.3-5.1); Sodium 139 mmol/L (135-145)
--- NOTE | 2025-05-24 07:52 | P.PNGS_ITS ---
Subjective Subjective Date of Service: 05/24/25 Interval history: patient doing well, denies pain, fever, chills. Denies any issues with the VAC over the weekend. Physical Exam 2 Vital Signs: Vital Signs: Last Vital Signs Temp 97.9 F 05/24/25 07:18 Pulse 68 05/24/25 07:18 Resp 18 05/24/25 07:18 BP 141/80 H 05/24/25 07:18 Pulse Ox 97 05/24/25 07:18 O2 Del Method Room Air 05/24/25 07:18 O2 Flow Rate 2 05/21/25 15:10 BMI result Body Mass Index 24.1 Const: General: comfortable and no acute distress O rientation/consciousness: patient oriented x3 Neuro: General: patient oriented x3 Extrem: Other: Wound VAC in place, good seal. Some cloudy as noted on the distal end. General: Yes amputation noted (Right BKA, left TMA) Objective Data Active Medications Acetaminophen (Acetaminophen 325 Mg Tablet) 650 mg PO Q6H PRN PRN Reason: Pain, Mild 1-3,fever,headache Last Admin: 05/23/25 07:19 Dose: 650 mg Documented By: MAXIMILIANO Albuterol/Ipratropium (Albuterol/Iprat 2.5/0.5mg 3 Ml Ampul.Neb) 3 ml INHALE RQ4H WHILE AWAKE PRN PRN Reason: Shortness of Breath Amitriptyline HCl (Amitriptyline Hcl 50 Mg Tablet) 50 mg PO BEDTIME [facility] Last Admin: 05/23/25 20:25 Dose: 50 mg Documented By: NARAYAN Bumetanide (Bumetanide 1 Mg Tablet) 1 mg PO DAILY [facility]; Protocol Last Admin: 05/23/25 07:20 Dose: 1 mg Documented By: MAXIMILIANO Calcium Carbonate (Calcium Carbonate 750 Mg Tab.Chew) 750 mg PO Q4H PRN PRN Reason: Heartburn Carvedilol (Carvedilol 3.125 Mg Tablet) 3.125 mg PO BID [facility]; Protocol Last Admin: 05/23/25 20:25 Dose: 3.125 mg Documented By: NARAYAN Dextrose (Dextrose 50 % 25 Gm/50 Ml Syringe) 25 gm IVPUSH Q15M PRN; Protocol PRN Reason: per Hypoglycemia Standing Ord. Dextrose (Dextrose 50 % 25 Gm/50 Ml Syringe) 25 gm IVPUSH Q15M PRN; Protocol PRN Reason: per Hypoglycemia Standing Ord. Empagliflozin (Empagliflozin 10 Mg Tablet) 10 mg PO DAILY [facility] On Hold: 05/18/25 13:54 Last Admin: 05/18/25 09:04 Dose: 10 mg Documented By: KANDI Enoxaparin Sodium (Enoxaparin Sodium 40 Mg/0.4 Ml Syringe) 40 mg SUBCUT BEDTIME [facility] Last Admin: 05/23/25 20:24 Dose: 40 mg Documented By: NARAYAN Glucose (Glucose Gel 15 Gm Gel..Gram.) 15 gm PO Q15M PRN; Protocol PRN Reason: per Hypoglycemia Standing Ord. Cefazolin Sodium/Dextrose (Ancef) 2 gm in 50 mls @ 100 mls/hr IV Q8H [facility] Last Infusion: 05/24/25 00:41 Dose: Infused Documented By: NARAYAN Insulin Glargine (Insulin Glargine,Hum.Rec.Anlog 100 Unit/Ml 10 Ml Vial) 20 unit SUBCUT DAILY [facility] Last Admin: 05/23/25 07:18 Dose: 20 unit Documented By: MAXIMILIANO Insulin Human Lispro (Insulin Lispro 100 Unit/Ml 3 Ml Vial) 0 unit SUBCUT QIDACHS [facility]; Protocol Last Admin: 05/24/25 07:29 Dose: Not Given Documented By: TARIQ Non-Admin Reason: No Insulin Coverage Magnesium Hydroxide (Milk Of Magnesia 30 Ml Oral.Susp) 30 ml PO DAILY PRN PRN Reason: Constipation Melatonin (Melatonin 3 Mg Tablet) 6 mg PO BEDTIME PRN PRN Reason: Insomnia Last Admin: 05/23/25 20:24 Dose: 6 mg Documented By: NARAYAN Methadone HCl (Methadone Hcl 20 Mg/2 Ml Oral.Conc) 80 mg PO DAILY [facility] Last Admin: 05/23/25 07:18 Dose: 80 mg Documented By: MAXIMILIANO Co-signed By: STEVEN Naloxone HCl (Naloxone Hcl 0.4 Mg/Ml Vial) 0.04 mg IVPUSH Q5M PRN PRN Reason: Excessive sedation or RR < 8 Polyethylene Glycol (Polyethylene Glycol 3350 17 Gm Powd.Pack) 17 gm PO DAILY PRN PRN Reason: Constipation Sacubitril/Valsartan (Sacubitril/Valsartan 49/51 1 Tab Tablet) 1 tab PO BID [facility]; Protocol Last Admin: 05/23/25 20:24 Dose: 1 tab Documented By: NARAYAN Sodium Chloride (0.9 % Sodium Chloride Flush 3 Ml Syringe) 3 ml IVFLUSH QSHIFT [facility] Last Admin: 05/23/25 20:24 Dose: 3 ml Documented By: NARAYAN Spironolactone (Spironolactone 25 Mg Tablet) 25 mg PO DAILY [facility]; Protocol Last Admin: 05/23/25 07:19 Dose: 25 mg Documented By: MAXIMILIANO Labs 05/22/25 06:05 05/24/25 06:45 Labs: Laboratory Results - last 24 hr 05/23/25 05/23/25 05/23/25 10:51 16:05 20:11 Anion Gap Estim Creat Clear Calc Estimated GFR POC Glucose 189 H 154 H 144 H Random Glucose Calcium 05/24/25 05/24/25 06:45 07:12 Anion Gap 11 L Estim Creat Clear Calc 78.1 Estimated GFR 60 POC Glucose 118 H Random Glucose 114 Calcium 8.5 Procedures Date of Service Date of Service: 05/24/25 Progress Note: A&P Assessment and plan (1) Diabetic foot ulcer: Status: Acute (2) Acute osteomyelitis of left foot: Status: Acute Plan 64-year-old male with a past medical history of HTN, HLD, dm, right BKA, chronic diabetic left foot ulcer, history of left TMA, AFib-not on anticoagulation, being followed for left foot ulcer with 4th metatarsal osteomyelitis. Patient had a wound debridement on Saturday. The Veraflo wound VAC placed. VAC remains in place no issues with seal over the weekend. Patient doing well denies pain of the foot. Denies fever, chills on exam the back appears to be functioning well there was a bit of the cloudy area on the distal aspect of the location of the TMA. We will plan for doing a VAC change later today, with possible switch to Dakin's for flushing. Glucose control continue IV Abx per ID pain control leg elevation Time Spent With Patient Time: Total time managing care of this patient today ____ minutes. Quality Stroke Does the patient have a stroke diagnosis?: No VTE Prior VTE?: No VTE Risk Level:: Medical - moderate - high VTE Device Contraindication: Treatment Not Indicated VTE Drug Contraindication: N/A - Med Ordered
[2025-05-24] MEDS: methADONE HCl 20 MG/2 ML ORAL.CONC 80 MG PO (08:30)
[2025-05-24] MEDS: Insulin Glargine,Hum.rec.anlog 100 UNIT/ML 10 ML VIAL 20 UNIT SUBCUT (08:30)
[2025-05-24] MEDS: Sacubitril/Valsartan 49/51 1 TAB TABLET PO ×2 (08:30→20:16)
[2025-05-24] MEDS: 0.9 % Sodium Chloride Flush 3 ML SYRINGE IVFLUSH ×3 (08:31→20:17)
--- NOTE | 2025-05-24 11:40 | HO.PM.IMPN ---
Subjective Subjective Date of Service: 05/24/25 Interval History: seen and examined this morning follow up for left foot wound No overnight events No specific complaints Constitutional Constitutional: Denies chills and Denies fever(s) Gastrointestinal Gastrointestinal: Denies abdominal pain, Denies diarrhea, Denies nausea and Denies vomiting Physical Exam Vital Signs: Vital Signs: Last Vital Signs Temp 98.8 F 05/24/25 11:17 Pulse 71 05/24/25 11:17 Resp 18 05/24/25 11:17 BP 142/72 H 05/24/25 11:40 Pulse Ox 96 05/24/25 11:17 O2 Del Method Room Air 05/24/25 11:17 O2 Flow Rate 2 05/21/25 15:10 BMI result Body Mass Index 24.1 Appearing in no acute distress lung sounds are clear to auscultation heart regular rate rhythm, clear S1, S2 positive bowel sounds, abdomen is soft, nontender neuro patient is alert x3, no focal deficits LLE with wound vac on Objective Data Active Medications Acetaminophen (Acetaminophen 325 Mg Tablet) 650 mg PO Q6H PRN PRN Reason: Pain, Mild 1-3,fever,headache Last Admin: 05/23/25 07:19 Dose: 650 mg Documented By: MAXIMILIANO Albuterol/Ipratropium (Albuterol/Iprat 2.5/0.5mg 3 Ml Ampul.Neb) 3 ml INHALE RQ4H WHILE AWAKE PRN PRN Reason: Shortness of Breath Amitriptyline HCl (Amitriptyline Hcl 50 Mg Tablet) 50 mg PO BEDTIME [facility] Last Admin: 05/23/25 20:25 Dose: 50 mg Documented By: NARAYAN Bumetanide (Bumetanide 1 Mg Tablet) 1 mg PO DAILY [facility]; Protocol Last Admin: 05/24/25 08:30 Dose: 1 mg Documented By: TARIQ Calcium Carbonate (Calcium Carbonate 750 Mg Tab.Chew) 750 mg PO Q4H PRN PRN Reason: Heartburn Carvedilol (Carvedilol 3.125 Mg Tablet) 3.125 mg PO BID [facility]; Protocol Last Admin: 05/24/25 08:29 Dose: 3.125 mg Documented By: TARIQ Dextrose (Dextrose 50 % 25 Gm/50 Ml Syringe) 25 gm IVPUSH Q15M PRN; Protocol PRN Reason: per Hypoglycemia Standing Ord. Dextrose (Dextrose 50 % 25 Gm/50 Ml Syringe) 25 gm IVPUSH Q15M PRN; Protocol PRN Reason: per Hypoglycemia Standing Ord. Empagliflozin (Empagliflozin 10 Mg Tablet) 10 mg PO DAILY [facility] On Hold: 05/18/25 13:54 Last Admin: 05/18/25 09:04 Dose: 10 mg Documented By: KANDI Enoxaparin Sodium (Enoxaparin Sodium 40 Mg/0.4 Ml Syringe) 40 mg SUBCUT BEDTIME [facility] Last Admin: 05/23/25 20:24 Dose: 40 mg Documented By: NARAYAN Glucose (Glucose Gel 15 Gm Gel..Gram.) 15 gm PO Q15M PRN; Protocol PRN Reason: per Hypoglycemia Standing Ord. Cefazolin Sodium/Dextrose (Ancef) 2 gm in 50 mls @ 100 mls/hr IV Q8H [facility] Last Infusion: 05/24/25 10:05 Dose: Infused Documented By: TARIQ Insulin Glargine (Insulin Glargine,Hum.Rec.Anlog 100 Unit/Ml 10 Ml Vial) 20 unit SUBCUT DAILY [facility] Last Admin: 05/24/25 08:30 Dose: 20 unit Documented By: TARIQ Insulin Human Lispro (Insulin Lispro 100 Unit/Ml 3 Ml Vial) 0 unit SUBCUT QIDACHS [facility]; Protocol Last Admin: 05/24/25 07:29 Dose: Not Given Documented By: TARIQ Non-Admin Reason: No Insulin Coverage Magnesium Hydroxide (Milk Of Magnesia 30 Ml Oral.Susp) 30 ml PO DAILY PRN PRN Reason: Constipation Melatonin (Melatonin 3 Mg Tablet) 6 mg PO BEDTIME PRN PRN Reason: Insomnia Last Admin: 05/23/25 20:24 Dose: 6 mg Documented By: NARAYAN Methadone HCl (Methadone Hcl 20 Mg/2 Ml Oral.Conc) 80 mg PO DAILY [facility] Last Admin: 05/24/25 08:30 Dose: 80 mg Documented By: TARIQ Co-signed By: CURT Naloxone HCl (Naloxone Hcl 0.4 Mg/Ml Vial) 0.04 mg IVPUSH Q5M PRN PRN Reason: Excessive sedation or RR < 8 Polyethylene Glycol (Polyethylene Glycol 3350 17 Gm Powd.Pack) 17 gm PO DAILY PRN PRN Reason: Constipation Sacubitril/Valsartan (Sacubitril/Valsartan 49/51 1 Tab Tablet) 1 tab PO BID [facility]; Protocol Last Admin: 05/24/25 08:30 Dose: 1 tab Documented By: TARIQ Sodium Chloride (0.9 % Sodium Chloride Flush 3 Ml Syringe) 3 ml IVFLUSH QSHIFT [facility] Last Admin: 05/24/25 08:31 Dose: 3 ml Documented By: TARIQ Spironolactone (Spironolactone 25 Mg Tablet) 25 mg PO DAILY [facility]; Protocol Last Admin: 05/24/25 08:29 Dose: 25 mg Documented By: TARIQ Labs 05/22/25 06:05 05/24/25 06:45 Labs: Laboratory Results - last 24 hr 05/23/25 05/23/25 05/24/25 16:05 20:11 06:45 Anion Gap 11 L Estim Creat Clear Calc 78.1 Estimated GFR 60 POC Glucose 154 H 144 H Random Glucose 114 Calcium 8.5 05/24/25 07:12 Anion Gap Estim Creat Clear Calc Estimated GFR POC Glucose 118 H Random Glucose Calcium Assessment and Plan (1) Acute osteomyelitis of left foot: Status: Acute Plan 64-year-old male with a past medical history of HTN, HLD, dm, right BKA, chronic diabetic left foot ulcer, history of left TMA, AFib-not on anticoagulation presented to the hospital today with a chief complaint of left foot pain redness and swelling. Noted to have acute osteomyelitis of the left foot stump and cellulitis. Gram positive bacteremia blood cultures 1 growing MSSA, 1 growing group G Streptococcus bacteremia on IV zosyn started 05/15, stop IV vanco Surveillance blood cultures negative to date (1st negative cultures 05/20) Echo negative for vegetation Seen by ID, recommend 4-6 weeks of IV antibiotics depending on removal of infected bone or not-will need PICC line prior to discharge Left foot stump acute osteomyelitis Left leg cellulitis/Diabetic foot ulcer Vascular surgery> no interventions General surgery-initially plan for BKA, patient does not want amputation at this time, plan for limb salvaging management with IV antibiotics and debridement s/p debridement with veraflow wound vac placement 05/21 d/w ID recommend 6 weeks of IV kefzol without removal of infected bone or 4 weeks of IV kefzol if bone is removed Picc line ordered Microcytic Anemia, non blood loss Transfused 2 units of PRBCs Discussed with Cardiology as patient's symptoms maybe secondary to myocardial ischemia, recommended to transfuse to keep hematocrit above 30 H/H stable Acute hypoxic respiratory failure secondary to new onset heart failure with reduced ejection fraction Echocardiogram with EF of 25-30% CT chest with pulmonary edema and small pleural effusion. Cardiology consult> rec Jardiance (on hold due to planned surgery), aldactone and initially treated with IV bumex, now transitioned to po bumex adding coreg 3.125bid s/p 2 units of packed red blood cells, goal to keep hct >30 Dobutamine stress test with no acute ischemia Diabetes 2 Insulin sliding scale and lantus Opiate dependence Continue methadone. Hypertension Patient on diltiazem, hold due to acute CHF Now on Aldactone, Entresto DVT prophylaxis: Lovenox Code status: Full code Quality Stroke Does the patient have a stroke diagnosis?: No VTE Prior VTE?: No VTE Risk Level:: Medical - moderate - high VTE Device Contraindication: Treatment Not Indicated VTE Drug Contraindication: N/A - Med Ordered
[2025-05-24 12:23] LABS: Glucose, Whole Blood 146 mg/dL (60-115)
--- NOTE | 2025-05-24 13:06 | MHC.CM.PN ---
EMR REVIEWED, PER HOSPITALIST PT WILL NEED STR FOR WOUND VAC AND 6WKS IV ABX, PT WILL ALSO NEED GUEST DOSING SET UP ONCE PT RECEIVES BED OFFER, REFERRAL PLACED AND CM WILL CONT TO FOLLOW.
--- NOTE | 2025-05-24 13:32 | HO.WOUND ---
Addendum entered by Reyna Yadav RN 05/24/25 15:45: 05/24/25 @ 1540 Significant improvement noted to periwound, maceration improving - discussed with Jun VELAZCO will defer Vac re-application to tomorrow 05/25/25 to allow periwound to continue to improve and will allow for wound vac drape to stay create seal with tissue. Of note there is an mal odor to patient room unable to determine it is it old wound vac supplies or bed of wound. Wound vac soiled supplied removed from room will reassess for odor tomorrow. At bedside wound vac, cassette, new veraflo large dressing and canister - ready for application tomorrow. Attempting to locate medium veraflo dressing since it will have one track / zain pad which will provide better application given patients anatomy. Original Note: Wound Consult: Follow up 64yr old?Male admitted to [facility] on 05/15/25 - See progress notes and H&P for detailed history.? Wound consult follow up for Left plantar NPWT.?? Patient is well known to this television writer from prior admissions. Wound Vac with veraflow was placed on Saturday in the OR with Dr. Cannon. The alarms history on the veraflo machine does not appear to have any alarms over the weekend however the log appears out of the ordinary log details. I am not able to make sence of some of the time stamps. There unfortunately is significant maceration noted to the periwound. There is a foul odor noted while at bedside. There is suction noted but clearly leaking has occurred due to the significant maceration of the periwound - see photo. Jun VELAZCO for general surgery team at bedside - wound vac removed wound bed assessed - the wound bed itelf shows significant improvement however the periwound is macerated and would likely not be able to have a new drape applied due to the maceration of the tissue. I recommend we pause and reassess in a few hours - wet to dry dressing applied to open wound and dry gauze to macerated tissue. will reassess with effort to be able to reapply Verfalo given improvment in wound bed. Details from prior assessment this admission: Left Lateral Plantar Foot Etiology: ?Diabetic wound Wound Bed: pale slough with areas of necrosis and exposed bone noted Drainage / Odor: clifton drainage noted mild odor noted Edges: ? unattached Shara wound: dry thick callused areas ? Pain: reports tenderness Goals of Treatment: Moisture management with Durafiber AG? pending Amputation with Vascular / General Surgery Left Leg Etiology: Venous vs Diabetic wounds Wound Bed: pale pink moist wound bed partial thickness tissue loss Drainage / Odor: yellow drainage noted on dressing - No odor Edges: ? well defined and attached Shara wound: Hemosiderin staining noted - scar tissue noted - No Induration, Fluctuance or Warmth noted Pain: reports pain Goals of Treatment: Moisture management with Durafiber AG pending Amputation with Vascular / General Surgery Recommendations: 1. Turn and Reposition every 2 hours and as needed for patient comfort.? Use pillows or wedges to support off loading positions. 2. Off Load all bony prominences with use of pillows and heel boots if needed.? Apply Preventative foams where needed. ? 3. Monitor for incontinence and moisture control, use barrier creams when needed for prevention and treatment. 4. Provide adequate and supplemental nutrition.? 5. Continue low air loss mattress. 6. Maintain blood glucose levels per Providers order. Left Lower Leg - Elevate lower legs - Off Load Pressure and limit ambulating on foot. Cleanse with saline, pat dry. ?Apply barrier cream to wound bed. Cover wound bed with Durafiber AG, Cover with Dry gauze, ABD pad and wrap. Change every other day. Left Plantar - Veraflow when able to be reinitiated. Re-consult wound care Nurse for wound deterioration or wound changes.
[2025-05-24 15:42] LABS: Glucose, Whole Blood 202 mg/dL (60-115)
[2025-05-24 20:59] LABS: Glucose, Whole Blood 113 mg/dL (60-115)
[2025-05-25] VITALS (10 sets, daily range): BP systolic 120–148; BP diastolic 63–77; PULSE 60–82; RESP 16–18; TEMP 36.2–36.7; O2SAT 95–98
[2025-05-25 07:13] LABS: Glucose, Whole Blood 93 mg/dL (60-115)
--- NOTE | 2025-05-25 09:48 | HO.PICC ---
PICC Line Insertion NPICC Diagnosis: Left Below the knee amputation site osteomyelitis Indication: detention antibiotics Pertinent Labs: Reviewed Technique: Following informed consent including risks, benefits and alternatives and using sterile technique including cap and mask, sterile gown, glove and drape, the right arm was prepped and draped in the usual sterile fashion of full barrier technique with G. Following completion of Leslie Protocol the skin and soft tissues were anesthetized with 1% Lidocaine plain. Using ultrasound guidance, the patent right basilic vein access was obtained in a single attempt by this RN. Over an 0.018 wire through peel-away sheath, a 4 Turkmen single lumen PASV PICC line was positioned. Catheter length is 47cm internal length, the external length is at the 0cm randall, for a total trimmed length of 47cm. The procedure was performed in 272. Tip verification was performed by George Roberts with Sherlock 3CG. Tip located in SVC. Ultrasound was used to document vein patency and for needle entry. A formal ultrasound picture and cardiac rhythm strip was recorded. Vascular Crutching Contractor has released the line for use and it is currently dressed with a StatLock, Tegaderm, and CHG disc. Verification has been performed for blood return and line patency. Arm Circumference: 28cm Equipment: IAT-Auto PowerPICC SOLO Catheter with Sherlock 3 CG Tip Catheter Type: 4 Turkmen single lumen PASV PICC Lot #: [id number]
[2025-05-25] MEDS: Insulin Glargine,Hum.rec.anlog 100 UNIT/ML 10 ML VIAL 20 UNIT SUBCUT (10:32)
[2025-05-25] MEDS: Sacubitril/Valsartan 49/51 1 TAB TABLET PO ×2 (10:32→21:35)
[2025-05-25] MEDS: 0.9 % Sodium Chloride Flush 3 ML SYRINGE IVFLUSH ×3 (10:33→21:38)
[2025-05-25] MEDS: methADONE HCl 20 MG/2 ML ORAL.CONC 80 MG PO (10:33)
--- NOTE | 2025-05-25 10:34 | HO.PM.IMPN ---
Subjective Subjective Date of Service: 05/25/25 Interval History: seen and examined this morning follow up for left foot wound No overnight events No specific complaints Constitutional Constitutional: Denies chills and Denies fever(s) Gastrointestinal Gastrointestinal: Denies abdominal pain, Denies diarrhea, Denies nausea and Denies vomiting Physical Exam Vital Signs: Vital Signs: Last Vital Signs Temp 97.8 F 05/25/25 07:13 Pulse 71 05/25/25 07:13 Resp 18 05/25/25 07:13 BP 144/72 H 05/25/25 07:13 Pulse Ox 97 05/25/25 07:13 O2 Del Method Room Air 05/25/25 07:13 O2 Flow Rate 2 05/21/25 15:10 BMI result Body Mass Index 24.1 Appearing in no acute distress lung sounds are clear to auscultation heart regular rate rhythm, clear S1, S2 positive bowel sounds, abdomen is soft, nontender neuro patient is alert x3, no focal deficits Objective Data Active Medications Acetaminophen (Acetaminophen 325 Mg Tablet) 650 mg PO Q6H PRN PRN Reason: Pain, Mild 1-3,fever,headache Last Admin: 05/23/25 07:19 Dose: 650 mg Documented By: MAXIMILIANO Albuterol/Ipratropium (Albuterol/Iprat 2.5/0.5mg 3 Ml Ampul.Neb) 3 ml INHALE RQ4H WHILE AWAKE PRN PRN Reason: Shortness of Breath Amitriptyline HCl (Amitriptyline Hcl 50 Mg Tablet) 50 mg PO BEDTIME [facility] Last Admin: 05/24/25 20:15 Dose: 50 mg Documented By: NARAYAN Bumetanide (Bumetanide 1 Mg Tablet) 1 mg PO DAILY [facility]; Protocol Last Admin: 05/24/25 08:30 Dose: 1 mg Documented By: TARIQ Calcium Carbonate (Calcium Carbonate 750 Mg Tab.Chew) 750 mg PO Q4H PRN PRN Reason: Heartburn Carvedilol (Carvedilol 3.125 Mg Tablet) 3.125 mg PO BID [facility]; Protocol Last Admin: 05/24/25 20:16 Dose: 3.125 mg Documented By: NARAYAN Dextrose (Dextrose 50 % 25 Gm/50 Ml Syringe) 25 gm IVPUSH Q15M PRN; Protocol PRN Reason: per Hypoglycemia Standing Ord. Dextrose (Dextrose 50 % 25 Gm/50 Ml Syringe) 25 gm IVPUSH Q15M PRN; Protocol PRN Reason: per Hypoglycemia Standing Ord. Empagliflozin (Empagliflozin 10 Mg Tablet) 10 mg PO DAILY [facility] On Hold: 05/18/25 13:54 Last Admin: 05/18/25 09:04 Dose: 10 mg Documented By: KANDI Enoxaparin Sodium (Enoxaparin Sodium 40 Mg/0.4 Ml Syringe) 40 mg SUBCUT BEDTIME [facility] Last Admin: 05/24/25 20:16 Dose: 40 mg Documented By: NARAYAN Glucose (Glucose Gel 15 Gm Gel..Gram.) 15 gm PO Q15M PRN; Protocol PRN Reason: per Hypoglycemia Standing Ord. Cefazolin Sodium/Dextrose (Ancef) 2 gm in 50 mls @ 100 mls/hr IV Q8H [facility] Last Infusion: 05/25/25 01:13 Dose: Infused Documented By: NARAYAN Insulin Glargine (Insulin Glargine,Hum.Rec.Anlog 100 Unit/Ml 10 Ml Vial) 20 unit SUBCUT DAILY [facility] Last Admin: 05/24/25 08:30 Dose: 20 unit Documented By: TARIQ Insulin Human Lispro (Insulin Lispro 100 Unit/Ml 3 Ml Vial) 0 unit SUBCUT QIDACHS [facility]; Protocol Last Admin: 05/25/25 07:37 Dose: Not Given Documented By: ARYA Non-Admin Reason: No Insulin Coverage Magnesium Hydroxide (Milk Of Magnesia 30 Ml Oral.Susp) 30 ml PO DAILY PRN PRN Reason: Constipation Melatonin (Melatonin 3 Mg Tablet) 6 mg PO BEDTIME PRN PRN Reason: Insomnia Last Admin: 05/24/25 20:16 Dose: 6 mg Documented By: NARAYAN Methadone HCl (Methadone Hcl 20 Mg/2 Ml Oral.Conc) 80 mg PO DAILY [facility] Last Admin: 05/24/25 08:30 Dose: 80 mg Documented By: TARIQ Co-signed By: CURT Naloxone HCl (Naloxone Hcl 0.4 Mg/Ml Vial) 0.04 mg IVPUSH Q5M PRN PRN Reason: Excessive sedation or RR < 8 Polyethylene Glycol (Polyethylene Glycol 3350 17 Gm Powd.Pack) 17 gm PO DAILY PRN PRN Reason: Constipation Sacubitril/Valsartan (Sacubitril/Valsartan 49/51 1 Tab Tablet) 1 tab PO BID [facility]; Protocol Last Admin: 05/24/25 20:16 Dose: 1 tab Documented By: NARAYAN Sodium Chloride (0.9 % Sodium Chloride Flush 3 Ml Syringe) 3 ml IVFLUSH QSHIFT [place] Last Admin: 05/24/25 20:17 Dose: 3 ml Documented By: NARAYAN Spironolactone (Spironolactone 25 Mg Tablet) 25 mg PO DAILY [facility]; Protocol Last Admin: 05/24/25 08:29 Dose: 25 mg Documented By: TARIQ Labs 05/22/25 06:05 05/24/25 06:45 Labs: Laboratory Results - last 24 hr 05/24/25 05/24/25 05/24/25 12:19 15:35 20:54 POC Glucose 146 H 202 H 113 05/25/25 07:04 POC Glucose 93 Assessment and Plan (1) Acute osteomyelitis of left foot: Status: Acute Plan 64-year-old male with a past medical history of HTN, HLD, dm, right BKA, chronic diabetic left foot ulcer, history of left TMA, AFib-not on anticoagulation presented to the hospital today with a chief complaint of left foot pain redness and swelling. Noted to have acute osteomyelitis of the left foot stump and cellulitis. MSSA bacteremia blood cultures 1 growing MSSA, 1 growing group G Streptococcus bacteremia Surveillance blood cultures negative to date (1st negative cultures 05/20) Echo negative for vegetation Seen by ID, recommend 4-6 weeks of IV antibiotics Left foot stump acute osteomyelitis Left leg cellulitis/Diabetic foot ulcer Vascular surgery> no interventions General surgery-initially plan for BKA, patient does not want amputation at this time, plan for limb salvaging management with IV antibiotics and debridement s/p debridement with veraflow wound vac placement 05/21 d/w ID recommend 6 weeks of IV kefzol without removal of infected bone or 4 weeks of IV kefzol if bone is removed Picc line placed Microcytic Anemia, non blood loss Transfused 2 units of PRBCs Discussed with Cardiology as patient's symptoms maybe secondary to myocardial ischemia, recommended to transfuse to keep hematocrit above 30 H/H stable Acute hypoxic respiratory failure secondary to new onset heart failure with reduced ejection fraction Echocardiogram with EF of 25-30% CT chest with pulmonary edema and small pleural effusion. Cardiology consult> rec Jardiance (on hold due to planned surgery), aldactone and initially treated with IV bumex, now transitioned to po bumex adding coreg 3.125bid s/p 2 units of packed red blood cells, goal to keep hct >30 Dobutamine stress test with no acute ischemia Diabetes 2 Insulin sliding scale and lantus Opiate dependence Continue methadone. Hypertension Patient on diltiazem, hold due to acute CHF Now on Aldactone, Entresto DVT prophylaxis: Lovenox Code status: Full code Quality Stroke Does the patient have a stroke diagnosis?: No VTE Prior VTE?: No VTE Risk Level:: Medical - moderate - high VTE Device Contraindication: Treatment Not Indicated VTE Drug Contraindication: N/A - Med Ordered
--- NOTE | 2025-05-25 11:39 | PM.PNGS ---
Subjective Subjective Date of Service: 05/25/25 Patient reports: no new complaints Interval history: Denies pain in the foot. Odor is improved today. Physical Exam Vital Signs: Vital Signs: Last Vital Signs Temp 97.8 F 05/25/25 07:13 Pulse 69 05/25/25 10:29 Resp 18 05/25/25 07:13 BP 138/69 05/25/25 10:32 Pulse Ox 97 05/25/25 07:13 O2 Del Method Room Air 05/25/25 07:13 O2 Flow Rate 2 05/21/25 15:10 BMI result Body Mass Index 24.1 Skin: Other: large 8x5 cm open wound on the plantar aspect of the foot. mild slough in the central aspect, wound border is well defined. bleeding and granulation tissue noted. mildly tender in the central aspect multiple smaller superficial wounds along the fenton and calf Objective Data Active Medications Acetaminophen (Acetaminophen 325 Mg Tablet) 650 mg PO Q6H PRN PRN Reason: Pain, Mild 1-3,fever,headache Last Admin: 05/23/25 07:19 Dose: 650 mg Documented By: MAXIMILIANO Albuterol/Ipratropium (Albuterol/Iprat 2.5/0.5mg 3 Ml Ampul.Neb) 3 ml INHALE RQ4H WHILE AWAKE PRN PRN Reason: Shortness of Breath Amitriptyline HCl (Amitriptyline Hcl 50 Mg Tablet) 50 mg PO BEDTIME [facility] Last Admin: 05/24/25 20:15 Dose: 50 mg Documented By: NARAYAN Bumetanide (Bumetanide 1 Mg Tablet) 1 mg PO DAILY [facility]; Protocol Last Admin: 05/25/25 10:32 Dose: 1 mg Documented By: ARYA Calcium Carbonate (Calcium Carbonate 750 Mg Tab.Chew) 750 mg PO Q4H PRN PRN Reason: Heartburn Carvedilol (Carvedilol 3.125 Mg Tablet) 3.125 mg PO BID [facility]; Protocol Last Admin: 05/25/25 10:29 Dose: 3.125 mg Documented By: ARYA Dextrose (Dextrose 50 % 25 Gm/50 Ml Syringe) 25 gm IVPUSH Q15M PRN; Protocol PRN Reason: per Hypoglycemia Standing Ord. Dextrose (Dextrose 50 % 25 Gm/50 Ml Syringe) 25 gm IVPUSH Q15M PRN; Protocol PRN Reason: per Hypoglycemia Standing Ord. Empagliflozin (Empagliflozin 10 Mg Tablet) 10 mg PO DAILY [facility] On Hold: 05/18/25 13:54 Last Admin: 05/18/25 09:04 Dose: 10 mg Documented By: KANDI Enoxaparin Sodium (Enoxaparin Sodium 40 Mg/0.4 Ml Syringe) 40 mg SUBCUT BEDTIME [facility] Last Admin: 05/24/25 20:16 Dose: 40 mg Documented By: NARAYAN Glucose (Glucose Gel 15 Gm Gel..Gram.) 15 gm PO Q15M PRN; Protocol PRN Reason: per Hypoglycemia Standing Ord. Cefazolin Sodium/Dextrose (Ancef) 2 gm in 50 mls @ 100 mls/hr IV Q8H [facility] Last Admin: 05/25/25 10:33 Dose: 100 mls/hr Documented By: ARYA Insulin Glargine (Insulin Glargine,Hum.Rec.Anlog 100 Unit/Ml 10 Ml Vial) 20 unit SUBCUT DAILY [facility] Last Admin: 05/25/25 10:32 Dose: 20 unit Documented By: ARYA Insulin Human Lispro (Insulin Lispro 100 Unit/Ml 3 Ml Vial) 0 unit SUBCUT QIDACHS [facility]; Protocol Last Admin: 05/25/25 07:37 Dose: Not Given Documented By: ARYA Non-Admin Reason: No Insulin Coverage Magnesium Hydroxide (Milk Of Magnesia 30 Ml Oral.Susp) 30 ml PO DAILY PRN PRN Reason: Constipation Melatonin (Melatonin 3 Mg Tablet) 6 mg PO BEDTIME PRN PRN Reason: Insomnia Last Admin: 05/24/25 20:16 Dose: 6 mg Documented By: NARAYAN Methadone HCl (Methadone Hcl 20 Mg/2 Ml Oral.Conc) 80 mg PO DAILY [facility] Last Admin: 05/25/25 10:33 Dose: 80 mg Documented By: ARYA Co-signed By: CURT Naloxone HCl (Naloxone Hcl 0.4 Mg/Ml Vial) 0.04 mg IVPUSH Q5M PRN PRN Reason: Excessive sedation or RR < 8 Polyethylene Glycol (Polyethylene Glycol 3350 17 Gm Powd.Pack) 17 gm PO DAILY PRN PRN Reason: Constipation Sacubitril/Valsartan (Sacubitril/Valsartan 49/51 1 Tab Tablet) 1 tab PO BID [facility]; Protocol Last Admin: 05/25/25 10:32 Dose: 1 tab Documented By: ARYA Sodium Chloride (0.9 % Sodium Chloride Flush 3 Ml Syringe) 3 ml IVFLUSH QSHIFT [place] Last Admin: 05/25/25 10:33 Dose: 3 ml Documented By: ARYA Spironolactone (Spironolactone 25 Mg Tablet) 25 mg PO DAILY [facility]; Protocol Last Admin: 05/25/25 10:32 Dose: 25 mg Documented By: ARYA Labs 05/22/25 06:05 05/24/25 06:45 Labs: Laboratory Results - last 24 hr 05/24/25 05/24/25 05/24/25 12:19 15:35 20:54 POC Glucose 146 H 202 H 113 05/25/25 07:04 POC Glucose 93 Procedures Date of Service Date of Service: 05/25/25 Progress Note: A&P Assessment and plan (1) Acute osteomyelitis of left foot: Status: Acute (2) Diabetic foot ulcer: Status: Acute Plan 64 year old male admitted or management of osteomyelitis. Patient is overall doing well. denies pain from the wound, sensation is markedly decreased at baseline. Yesterday veraflo wound vac was removed due to an apparent leakage causing building of saline that saturated the surrounding skin and tissue with associated malodor. The wound was allowed to dry overnight with wet to dry dressings. today the surrounding skin is dry and the wound still appears to be beginning to heal. There remains some mild slough on the central aspect of the wound but there is lots of granulation tissue and some bleeding noted. We reapplied the veraflo today, ensuring a good seal. It is set to 10 minutes of instillation with NS and 2 hours of suction. The wounds on the fenton and calf were dressed by the wound care nurse Reyna with silver alginate. I will see this patient on afternoon rounds to check the function of the vac. continue glucose control continue IV abx per ID recommendations leg elevation avoid ambulation while patient has veraflo on every other day dressing changes for fenton and calf Time Spent With Patient Time: Total time managing care of this patient today ____ minutes. Quality Stroke Does the patient have a stroke diagnosis?: No VTE Prior VTE?: No VTE Risk Level:: Medical - moderate - high VTE Device Contraindication: Treatment Not Indicated VTE Drug Contraindication: N/A - Med Ordered
[2025-05-25 11:55] LABS: Glucose, Whole Blood 202 mg/dL (60-115)
--- NOTE | 2025-05-25 14:28 | HO.SKINPHOTO ---
Wound vac reapplied today by Wound RN and general surgery consult. Initially saline leaking, wound vac system changed. 14:30 Veraflow saline irrigant running, new wound vac system functioning. New skin photo: Location: Right posterior thigh Category: MASD
[2025-05-25 16:24] LABS: Glucose, Whole Blood 81 mg/dL (60-115)
--- NOTE | 2025-05-25 17:50 | HO.WOUND ---
Wound Consult: Follow up 64yr old?Male admitted to [facility] [place] on 05/15/25 - See progress notes and H&P for detailed history.? Wound consult follow up for Left plantar.?? Patient is well known to this policy writer sales from prior admissions. Improved maceration noted to the periwound - appears ready for veraflo NPWT. There is significant less odor noted. Veraflo was initialed however there was almost immediate leaking noted - switched to standard NPWT set at 125mmhg low and continuos with out leaking noted. Special ordered medium dressing for veraflow with one track / zain pad. I suspect this may assist in improved use of the veraflo. 05/25/25 NPWT Suction Settings: 125mmHg - Setting Type: Continuous There is the dressing for the verfalor however only the wound vac portion is in use. No Premedication Provided. Wound assessment: 8.5cm x 5cm x 2cm? - no undermining noted Wound bed: red moist viable tissue with marbled area of yellow moist slough? - no exposed bone or tendon observed or palpated Cleanse and irrigated with NS. NPWT Dressing Application: 1 black foam cut to size and applied to wound bed with thin solid black foam, Skin and wound edge protected with cavelon.? Skin protected with Drape for Bridge 2 piece of black foam applied for bridge to left mid foot avoiding bone. Dressing completed and no leak noted.? Suction set to 125mmHg - patient denies pain and or burning sensation. Patient tolerated well.? 05/24/25 on admission Left Lateral Plantar Foot Etiology: ?Diabetic wound Wound Bed: pale slough with areas of necrosis and exposed bone noted Drainage / Odor: clifton drainage noted mild odor noted Edges: ? unattached Shara wound: dry thick callused areas ? Pain: reports tenderness Goals of Treatment: Moisture management with Durafiber AG? pending Amputation with Vascular / General Surgery Left Leg Etiology: Improving Venous vs Diabetic wounds Wound Bed: pink moist wound bed partial thickness tissue loss Drainage / Odor: seroous drainage noted on dressing - No odor Edges: ? well defined and attached Shara wound: Hemosiderin staining noted - scar tissue noted - No Induration, Fluctuance or Warmth noted Pain: reports pain Goals of Treatment: Moisture management with Durafiber AG Right Posterior thigh - MASD - with friction - appears to be improving - recommend Triad application - patient was also noted to have fungal dermatitis - provider to order antifungal powder for treatment. apply twice daily. Recommendations: 1. Turn and Reposition every 2 hours and as needed for patient comfort.? Use pillows or wedges to support off loading positions. 2. Off Load all bony prominences with use of pillows and heel boots if needed.? Apply Preventative foams where needed. ? 3. Monitor for incontinence and moisture control, use barrier creams when needed for prevention and treatment. 4. Provide adequate and supplemental nutrition.? 5. Continue low air loss mattress. 6. Maintain blood glucose levels per Providers order. Left Lower Leg - Elevate lower legs - Off Load Pressure and limit ambulating on foot. Cleanse with saline, pat dry. ?Apply barrier cream to wound bed. Cover wound bed with Durafiber AG, Cover with Dry gauze, ABD pad and wrap. Change every other day. Right Posterior leg - Off Load Pressure with Q2 hr turns and use of pillows - Cleanse with PH balance spray or wipes, pat dry. ?Apply thin layer of Triad to wound bed - only pat and dab no scrub and rub when soiling occurs. Reapply thin layer PRN after each episode of incontinence. Left Plantar - Wound Vac in place - 125mmhg suction low and continuous. Veraflo not in use at this time. Re-consult wound care Nurse for wound deterioration or wound changes.
[2025-05-25 20:14] LABS: Glucose, Whole Blood 142 mg/dL (60-115)
[2025-05-26 03:32] VITALS: BP 137/71; PULSE 67; RESP 18; TEMP 36.7; O2SAT 96
--- NOTE | 2025-05-26 07:19 | HO.WOUND ---
Wound Consult: Follow up 64yr old?Male admitted to [facility] [place] on 05/15/25 - See progress notes and H&P for detailed history.? Wound consult follow up for Left plantar wound vac.?? Wound vac alarms assessed no alarms overnight nor since starting vac therapy without Veraflo. Currently NPWT setting at 125mmHg low and continuous. No odor noted when walking into room as was present yesterday. Awaiting special ordered medium dressing for veraflow with one track / zain pad. I suspect this may assist in improved use of the veraflo. Inpatient wound care to continue to follow along with General Surgery Team.
[2025-05-26 07:24] LABS: Glucose, Whole Blood 98 mg/dL (60-115)
[2025-05-26 07:48] VITALS: BP 147/77; PULSE 78; RESP 18; TEMP 36.7; O2SAT 100
--- NOTE | 2025-05-26 07:58 | PM.PNGS ---
Subjective Subjective Date of Service: 05/26/25 <Jun Adams PA-C - Last Filed: 05/26/25 08:11> 05/26/25 <Maynor Cannon MD - Last Filed: 05/26/25 08:58> Patient reports: no new complaints <Jun Adams PA-C - Last Filed: 05/26/25 08:11> Interval history: denies pain. Now ambulating to chair with assistance. <Jun Adams PA-C - Last Filed: 05/26/25 08:11> Physical Exam Vital Signs: Vital Signs: Last Vital Signs Temp 98.1 F 05/26/25 07:48 Pulse 78 05/26/25 07:48 Resp 18 05/26/25 07:48 BP 147/77 H 05/26/25 07:48 Pulse Ox 100 05/26/25 07:48 O2 Del Method Room Air 05/26/25 07:48 O2 Flow Rate 2 05/21/25 15:10 BMI result Body Mass Index 24.1 <Jun Adams PA-C - Last Filed: 05/26/25 08:11> Const: General: comfortable and no acute distress <Jun Adams PA-C - Last Filed: 05/26/25 08:11> Orientation/consciousness: patient oriented x3 <Jun Adams PA-C - Last Filed: 05/26/25 08:11> Skin: Other: large 8x5 cm open wound on the plantar aspect of the foot. mild slough in the central aspect, wound border is well defined. bleeding and granulation tissue noted. mildly tender in the central aspect multiple smaller superficial wounds along the fenton and calf wound vac in place, no alarms overnight <Jun Adams PA-C - Last Filed: 05/26/25 08:11> Neuro: General: patient oriented x3 <RAUL Deras Last Filed: 05/26/25 08:11> Objective Data Active Medications Acetaminophen (Acetaminophen 325 Mg Tablet) 650 mg PO Q6H PRN PRN Reason: Pain, Mild 1-3,fever,headache Last Admin: 05/23/25 07:19 Dose: 650 mg Documented By: MAXIMILIANO Albuterol/Ipratropium (Albuterol/Iprat 2.5/0.5mg 3 Ml Ampul.Neb) 3 ml INHALE RQ4H WHILE AWAKE PRN PRN Reason: Shortness of Breath Amitriptyline HCl (Amitriptyline Hcl 50 Mg Tablet) 50 mg PO BEDTIME [facility] Last Admin: 05/25/25 21:35 Dose: 50 mg Documented By: ISRAEL Bumetanide (Bumetanide 1 Mg Tablet) 1 mg PO DAILY [facility]; Protocol Last Admin: 05/25/25 10:32 Dose: 1 mg Documented By: ARYA Calcium Carbonate (Calcium Carbonate 750 Mg Tab.Chew) 750 mg PO Q4H PRN PRN Reason: Heartburn Carvedilol (Carvedilol 3.125 Mg Tablet) 3.125 mg PO BID [facility]; Protocol Last Admin: 05/25/25 21:36 Dose: 3.125 mg Documented By: ISRAEL Dextrose (Dextrose 50 % 25 Gm/50 Ml Syringe) 25 gm IVPUSH Q15M PRN; Protocol PRN Reason: per Hypoglycemia Standing Ord. Dextrose (Dextrose 50 % 25 Gm/50 Ml Syringe) 25 gm IVPUSH Q15M PRN; Protocol PRN Reason: per Hypoglycemia Standing Ord. Empagliflozin (Empagliflozin 10 Mg Tablet) 10 mg PO DAILY [facility] On Hold: 05/18/25 13:54 Last Admin: 05/18/25 09:04 Dose: 10 mg Documented By: KANDI Enoxaparin Sodium (Enoxaparin Sodium 40 Mg/0.4 Ml Syringe) 40 mg SUBCUT BEDTIME [facility] Last Admin: 05/25/25 21:36 Dose: 40 mg Documented By: ISRAEL Glucose (Glucose Gel 15 Gm Gel..Gram.) 15 gm PO Q15M PRN; Protocol PRN Reason: per Hypoglycemia Standing Ord. Cefazolin Sodium/Dextrose (Ancef) 2 gm in 50 mls @ 100 mls/hr IV Q8H [facility] Last Infusion: 05/26/25 00:50 Dose: Infused Documented By: ISRAEL Insulin Glargine (Insulin Glargine,Hum.Rec.Anlog 100 Unit/Ml 10 Ml Vial) 20 unit SUBCUT DAILY [facility] Last Admin: 05/25/25 10:32 Dose: 20 unit Documented By: ARYA Insulin Human Lispro (Insulin Lispro 100 Unit/Ml 3 Ml Vial) 0 unit SUBCUT QIDACHS [facility]; Protocol Last Admin: 05/26/25 07:26 Dose: Not Given Documented By: TARIQ Non-Admin Reason: No Insulin Coverage Magnesium Hydroxide (Milk Of Magnesia 30 Ml Oral.Susp) 30 ml PO DAILY PRN PRN Reason: Constipation Melatonin (Melatonin 3 Mg Tablet) 6 mg PO BEDTIME PRN PRN Reason: Insomnia Last Admin: 05/24/25 20:16 Dose: 6 mg Documented By: NARAYAN Methadone HCl (Methadone Hcl 20 Mg/2 Ml Oral.Conc) 80 mg PO DAILY [facility] Last Admin: 05/25/25 10:33 Dose: 80 mg Documented By: ARYA Co-signed By: CURT Naloxone HCl (Naloxone Hcl 0.4 Mg/Ml Vial) 0.04 mg IVPUSH Q5M PRN PRN Reason: Excessive sedation or RR < 8 Nystatin (Nystatin Powder 15 Gm Bottle) 1 appl TOPICAL BID [facility]; Protocol Last Admin: 05/25/25 21:37 Dose: 1 appl Documented By: ISRAEL Polyethylene Glycol (Polyethylene Glycol 3350 17 Gm Powd.Pack) 17 gm PO DAILY PRN PRN Reason: Constipation Sacubitril/Valsartan (Sacubitril/Valsartan 49/51 1 Tab Tablet) 1 tab PO BID [facility]; Protocol Last Admin: 05/25/25 21:35 Dose: 1 tab Documented By: ISRAEL Sodium Chloride (0.9 % Sodium Chloride Flush 3 Ml Syringe) [facility] Last Admin: 05/25/25 21:38 Dose: 3 ml Documented By: ISRAEL Spironolactone (Spironolactone 25 Mg Tablet) 25 mg PO DAILY [facility]; Protocol Last Admin: 05/25/25 10:32 Dose: 25 mg Documented By: ARYA <Jun Adams PA-C - Last Filed: 05/26/25 08:11> Labs CBC & Chem 7: 05/22/25 06:05 05/24/25 06:45 <Jun Adams PA-C - Last Filed: 05/26/25 08:11> Labs: Laboratory Results - last 24 hr 07/05/25/25 05/25/25 11:50 16:16 20:11 POC Glucose 202 H 81 142 H 05/26/25 07:20 POC Glucose 98 <Jun Adams PA-C - Last Filed: 05/26/25 08:11> Microbiology Microbiology Results: Microbiology 05/20/25 10:08 Blood Culture - Final Blood - Venous No growth after 5 days. 05/20/25 10:08 Blood Culture - Final Blood - Venous No growth after 5 days. <Jun Adams PA-C - Last Filed: 05/26/25 08:11> Procedures Date of Service Date of Service: 05/26/25 <Jun Adams PA-C - Last Filed: 05/26/25 08:11> 05/26/25 <Maynor Cannon MD - Last Filed: 05/26/25 08:58> Progress Note: A&P Assessment and plan (1) Diabetic foot ulcer: Status: Acute <Jun Adams PA-C - Last Filed: 05/26/25 08:11> (2) Acute osteomyelitis of left foot: Status: Acute <Jun Adams PA-C - Last Filed: 05/26/25 08:11> Assessment and Plan: 64 year old male admitted for management of acute osteomyelitis and large foot ulcer. Continuing with limb salvaging goals. Patient not experiencing pain. Patient had veraflo reapplied yesterday. Seal appeared adequate initially, but some small leaking was noted with instillation, so the settings were altered to just be on the vac. There were no alarms overnight. We have ordered the smaller size vac to hopefully not require a bridge which i believe is where there is issue with seal during instillation. Plan to use a lower volume of instillation to help with the seal. the wound did have a good amount of granulation tissue yesterday when the vac was changed, there was a small amount of slough in the center of the wound. Continue antibiotics glucose control continue veraflo, will likely change to smaller size today. <Jun Adams PA-C - Last Filed: 05/26/25 08:11> 64 year old male admitted for management of acute osteomyelitis and large foot ulcer. Continuing with limb salvaging goals. Patient not experiencing pain. Patient had veraflo reapplied yesterday. Seal appeared adequate initially, but some small leaking was noted with instillation, so the settings were altered to just be on the vac. There were no alarms overnight. We have ordered the smaller size vac to hopefully not require a bridge which i believe is where there is issue with seal during instillation. Plan to use a lower volume of instillation to help with the seal. the wound did have a good amount of granulation tissue yesterday when the vac was changed, there was a small amount of slough in the center of the wound. Continue antibiotics glucose control continue veraflo, will likely change to smaller size today. Patient seen and examined and agree with the above assessment and plan. Wound VAC appears to be helping at least in the short term. Replacement of Veraflow planned for today. Patient may need lower volume of irrigation. <Maynor Cannon MD - Last Filed: 05/26/25 08:58> Time Spent With Patient Time: Total time managing care of this patient today ____ minutes. <Jun Adams PA-C - Last Filed: 05/26/25 08:11> Quality Stroke Does the patient have a stroke diagnosis?: No <Jun Adams PA-C - Last Filed: 05/26/25 08:11> VTE Prior VTE?: No <Jun Adams PA-C - Last Filed: 05/26/25 08:11> VTE Risk Level:: Medical - moderate - high <Jun Adams PA-C - Last Filed: 05/26/25 08:11> VTE Device Contraindication: Treatment Not Indicated <Jun Adams PA-C - Last Filed: 05/26/25 08:11> VTE Drug Contraindication: N/A - Med Ordered <Jun Adams PA-C - Last Filed: 05/26/25 08:11>
[2025-05-26] MEDS: methADONE HCl 20 MG/2 ML ORAL.CONC 80 MG PO (08:28)
[2025-05-26] MEDS: Insulin Glargine,Hum.rec.anlog 100 UNIT/ML 10 ML VIAL 20 UNIT SUBCUT (08:28)
[2025-05-26] MEDS: Sacubitril/Valsartan 49/51 1 TAB TABLET PO ×2 (08:28→20:10)
[2025-05-26] MEDS: 0.9 % Sodium Chloride Flush 3 ML SYRINGE IVFLUSH ×3 (08:29→20:14)
--- NOTE | 2025-05-26 11:26 | HO.PM.IMPN ---
Subjective Subjective Date of Service: 05/26/25 Interval History: seen and examined this morning follow up for left foot wound No overnight events No specific complaints Constitutional Constitutional: Denies chills and Denies fever(s) Gastrointestinal Gastrointestinal: Denies abdominal pain, Denies diarrhea, Denies nausea and Denies vomiting Physical Exam Vital Signs: Vital Signs: Last Vital Signs Temp 98.1 F 05/26/25 07:48 Pulse 78 05/26/25 07:48 Resp 18 05/26/25 07:48 BP 147/77 H 05/26/25 07:48 Pulse Ox 100 05/26/25 07:48 O2 Del Method Room Air 05/26/25 07:48 O2 Flow Rate 2 05/21/25 15:10 BMI result Body Mass Index 24.1 Appearing in no acute distress lung sounds are clear to auscultation heart regular rate rhythm, clear S1, S2 positive bowel sounds, abdomen is soft, nontender neuro patient is alert x3, no focal deficits Left foot wound vac in place Objective Data Active Medications Acetaminophen (Acetaminophen 325 Mg Tablet) 650 mg PO Q6H PRN PRN Reason: Pain, Mild 1-3,fever,headache Last Admin: 05/23/25 07:19 Dose: 650 mg Documented By: MAXIMILIANO Albuterol/Ipratropium (Albuterol/Iprat 2.5/0.5mg 3 Ml Ampul.Neb) 3 ml INHALE RQ4H WHILE AWAKE PRN PRN Reason: Shortness of Breath Amitriptyline HCl (Amitriptyline Hcl 50 Mg Tablet) 50 mg PO BEDTIME [facility] Last Admin: 05/25/25 21:35 Dose: 50 mg Documented By: ISRAEL Bumetanide (Bumetanide 1 Mg Tablet) 1 mg PO DAILY [facility]; Protocol Last Admin: 05/26/25 08:28 Dose: 1 mg Documented By: TARIQ Calcium Carbonate (Calcium Carbonate 750 Mg Tab.Chew) 750 mg PO Q4H PRN PRN Reason: Heartburn Carvedilol (Carvedilol 3.125 Mg Tablet) 3.125 mg PO BID [facility]; Protocol Last Admin: 05/26/25 08:28 Dose: 3.125 mg Documented By: TARIQ Dextrose (Dextrose 50 % 25 Gm/50 Ml Syringe) 25 gm IVPUSH Q15M PRN; Protocol PRN Reason: per Hypoglycemia Standing Ord. Dextrose (Dextrose 50 % 25 Gm/50 Ml Syringe) 25 gm IVPUSH Q15M PRN; Protocol PRN Reason: per Hypoglycemia Standing Ord. Empagliflozin (Empagliflozin 10 Mg Tablet) 10 mg PO DAILY [facility] On Hold: 05/18/25 13:54 Last Admin: 05/18/25 09:04 Dose: 10 mg Documented By: KANDI Enoxaparin Sodium (Enoxaparin Sodium 40 Mg/0.4 Ml Syringe) 40 mg SUBCUT BEDTIME [facility] Last Admin: 05/25/25 21:36 Dose: 40 mg Documented By: ISRAEL Glucose (Glucose Gel 15 Gm Gel..Gram.) 15 gm PO Q15M PRN; Protocol PRN Reason: per Hypoglycemia Standing Ord. Cefazolin Sodium/Dextrose (Ancef) 2 gm in 50 mls @ 100 mls/hr IV Q8H [facility] Last Infusion: 05/26/25 09:16 Dose: Infused Documented By: TARIQ Insulin Glargine (Insulin Glargine,Hum.Rec.Anlog 100 Unit/Ml 10 Ml Vial) 20 unit SUBCUT DAILY [facility] Last Admin: 05/26/25 08:28 Dose: 20 unit Documented By: TARIQ Insulin Human Lispro (Insulin Lispro 100 Unit/Ml 3 Ml Vial) 0 unit SUBCUT QIDACHS [facility]; Protocol Last Admin: 05/26/25 07:26 Dose: Not Given Documented By: TARIQ Non-Admin Reason: No Insulin Coverage Magnesium Hydroxide (Milk Of Magnesia 30 Ml Oral.Susp) 30 ml PO DAILY PRN PRN Reason: Constipation Melatonin (Melatonin 3 Mg Tablet) 6 mg PO BEDTIME PRN PRN Reason: Insomnia Last Admin: 05/24/25 20:16 Dose: 6 mg Documented By: NARAYAN Methadone HCl (Methadone Hcl 20 Mg/2 Ml Oral.Conc) 80 mg PO DAILY [facility] Last Admin: 05/26/25 08:28 Dose: 80 mg Documented By: TARIQ Co-signed By: DEV Naloxone HCl (Naloxone Hcl 0.4 Mg/Ml Vial) 0.04 mg IVPUSH Q5M PRN PRN Reason: Excessive sedation or RR < 8 Nystatin (Nystatin Powder 15 Gm Bottle) 1 appl TOPICAL BID [facility]; Protocol Last Admin: 05/26/25 08:28 Dose: 1 appl Documented By: TARIQ Polyethylene Glycol (Polyethylene Glycol 3350 17 Gm Powd.Pack) 17 gm PO DAILY PRN PRN Reason: Constipation Sacubitril/Valsartan (Sacubitril/Valsartan 49/51 1 Tab Tablet) 1 tab PO BID [facility]; Protocol Last Admin: 05/26/25 08:28 Dose: 1 tab Documented By: TARIQ Sodium Chloride (0.9 % Sodium Chloride Flush 3 Ml Syringe) 3 ml IVFLUSH QSHIFT [facility] Last Admin: 05/26/25 08:29 Dose: 3 ml Documented By: TARIQ Spironolactone (Spironolactone 25 Mg Tablet) 25 mg PO DAILY [facility]; Protocol Last Admin: 05/26/25 08:28 Dose: 25 mg Documented By: TARIQ Labs 05/22/25 06:05 05/24/25 06:45 Labs: Laboratory Results - last 24 hr 05/25/25 05/25/25 05/25/25 11:50 16:16 20:11 POC Glucose 202 H 81 142 H 05/26/25 07:20 POC Glucose 98 Microbiology Microbiology Results: Microbiology 05/20/25 10:08 Blood Culture - Final Blood - Venous No growth after 5 days. 05/20/25 10:08 Blood Culture - Final Blood - Venous No growth after 5 days. Assessment and Plan (1) Acute osteomyelitis of left foot: Status: Acute Plan 64-year-old male with a past medical history of HTN, HLD, dm, right BKA, chronic diabetic left foot ulcer, history of left TMA, AFib-not on anticoagulation presented to the hospital today with a chief complaint of left foot pain redness and swelling. Noted to have acute osteomyelitis of the left foot stump and cellulitis. MSSA bacteremia blood cultures 1 growing MSSA, 1 growing group G Streptococcus bacteremia Surveillance blood cultures negative to date (1st negative cultures 05/20) Echo negative for vegetation Seen by ID, recommend 4-6 weeks of IV antibiotics Left foot stump acute osteomyelitis Left leg cellulitis/Diabetic foot ulcer Vascular surgery> no interventions General surgery-initially plan for BKA, patient did not want amputation at this time, plan for limb salvaging management with IV antibiotics and debridement, wound vac s/p debridement with veraflow wound vac placement 05/21 d/w ID recommend 6 weeks of IV kefzol without removal of infected bone or 4 weeks of IV kefzol if bone is removed Picc line placed Microcytic Anemia, non blood loss Transfused 2 units of PRBCs Discussed with Cardiology as patient's symptoms maybe secondary to myocardial ischemia, recommended to transfuse to keep hematocrit above 30 H/H stable Acute hypoxic respiratory failure secondary to new onset heart failure with reduced ejection fraction Echocardiogram with EF of 25-30% CT chest with pulmonary edema and small pleural effusion. Cardiology consult> rec Jardiance (on hold due to planned surgery), aldactone and initially treated with IV bumex, now transitioned to po bumex adding coreg 3.125bid s/p 2 units of packed red blood cells, goal to keep hct >30 Dobutamine stress test with no acute ischemia Diabetes 2 Insulin sliding scale and lantus Opiate dependence Continue methadone. Hypertension Patient on diltiazem, hold due to acute CHF Now on Aldactone, Entresto DVT prophylaxis: Lovenox Code status: Full code Quality Stroke Does the patient have a stroke diagnosis?: No VTE Prior VTE?: No VTE Risk Level:: Medical - moderate - high VTE Device Contraindication: Treatment Not Indicated VTE Drug Contraindication: N/A - Med Ordered
[2025-05-26 11:30] LABS: Glucose, Whole Blood 191 mg/dL (60-115)
[2025-05-26 11:39] VITALS: BP 132/72; PULSE 62; RESP 18; TEMP 36.3; O2SAT 95
[2025-05-26 16:00] VITALS: BP 149/69; PULSE 70; RESP 18; TEMP 36.1; O2SAT 98
--- NOTE | 2025-05-26 16:01 | PM.DS ---
DS: Providers Provider Date of admission: 05/15/25 00:22 Primary care physician: Mac Clarke MD Consults: 05/15/25 00:21 Consult to Infectious Diseases Routine Consulting Provider: [facility] Reason for consultation: DM foot infection Consult to Vascular Surgery Routine Consulting Provider: [facility] Vascular Services Reason for consultation: DM foot infection 05/15/25 06:30 Consult to Cardiology Routine Consulting Provider: [facility] Reason for consultation: new chf 05/15/25 10:14 Consult to Wound Care Routine Reason for consultation: Lt foot wound 05/16/25 07:38 Consult to General Surgery Routine Consulting Provider: [facility] General Surgeons Reason for consultation: possible debridement 05/21/25 10:15 Consult to Wound Care Routine Reason for consultation: right posterior thigh and rash to abdominal folds/groin DS: Diagnosis Discharge Diagnosis (1) Acute osteomyelitis of left foot: Status: Acute DS: Summary Hospital Course Hospital Course: History and physical as per admitting provider. 64-year-old male with a past medical history of HTN, HLD, dm, right BKA, chronic diabetic left foot ulcer, history of left TMA, AFib-not on anticoagulation presented to the hospital today with a chief complaint of left foot pain redness and swelling. Patient mentioned for the past 3 days he has been having increased pain redness and swelling over the left leg and left foot ulcer. Denies any discharge. Reports subjective fevers. Patient denies any chest pain or palpitations. Denies any cough or sputum production. Denies any shortness of breath or dyspnea on exertion. Denies any urinary symptoms. Review of all other systems is negative except mentioned above ER course: Per ER team, patient noted to have chronic left foot wound with surrounding erythema extending onto the proximal 3rd of the leg and smaller so some noted on the distal part of the leg; ulcer extending up to the bones; concerning for acute osteomyelitis. X-rays consistent with 4th metatarsal stump osteomyelitis. While in the ER patient became acutely hypoxic requiring Oxymizer and subsequently transitioned down to nasal cannula at 5 L; patient denied any cough or sputum production. Chest x-ray showed bilateral opacities. CT chest showed no evidence of PE but noted to have findings consistent with pulmonary edema and small pleural effusion. 64-year-old man treated for left stump acute osteomyelitis and MSSA bacteremia. Patient has a history of left leg cellulitis and diabetic foot ulcer. Seen and evaluated by vascular surgery recommended no intervention. He is also seen by General surgery who recommended BKA however patient decided against that and wanted limb salvaging management. He has been treated with IV antibiotics, he had surgical debridement and a wound VAC was placed on 05/21/2025. Discussed case with ID who recommended 6 weeks of IV Kefzol. He had a PICC line placed. MSSA bacteremia. Cultures /, 1 growing group G Streptococcus bacteremia. Surveillance blood cultures negative to date. Echocardiogram negative for vegetation. We will continue total of 6 weeks of cefazolin. Sign Microcytic anemia. Non blood loss. Transfuse total of 2 units PRBCs discussed with Cardiology as patient's symptoms maybe secondary to myocardial ischemia. Recommended keeping hematocrit above 30. H&H stable at this time. Acute hypoxic respiratory failure secondary to new onset heart failure with reduced ejection fraction. Echocardiogram showing EF of 35-30%, chest CT with pulmonary edema and small pericardial effusion. Treated with IV Bumex as patient has a reaction to Lasix. He was seen evaluated by Cardiology who recommended Jardiance, Aldactone and Coreg. Patient transitioned to oral Bumex and he will continue this. Vitamin stress test with no acute ischemia noted. Diabetes mellitus type 2. Treated with insulin sliding scale while inpatient, may continue regular home medications Opiate dependence. Continue methadone Hypertension. Stop diltiazem, started Coreg Physical Exam Vital Signs: Vital Signs: Last Vital Signs Temp 97.3 F 05/26/25 11:39 Pulse 62 05/26/25 11:39 Resp 18 05/26/25 11:39 BP 132/72 05/26/25 11:39 Pulse Ox 95 05/26/25 11:39 O2 Del Method Room Air 05/26/25 11:39 O2 Flow Rate 2 05/21/25 15:10 BMI result Body Mass Index 24.1 DS: Data Data Completed and Pending Completed studies during hospitalization [Text1]: Pending at discharge 05/21/25 14:12 Surgical [PTH] Routine Procedures Detachment at Left 5th Toe, Complete, Open Approach (08/02/24) Detachment at Right Lower Leg, High, Open Approach (03/03/23) Excision of Left Foot Subcutaneous Tissue and Fascia, Open Approach (08/02/24) Excision of Left Lower Leg Skin, External Approach (10/29/24) Insertion of Infusion Device into Superior Vena Cava, Percutaneous Approach (06/21/24) Introduction of Anesthetic Agent into Peripheral Nerves and Plexi, Percutaneous Approach (08/02/24) Ultrasonography of Superior Vena Cava, Guidance (06/21/24) Labs on day of discharge: Laboratory Results - last 24 hr 05/25/25 05/25/25 05/26/25 16:16 20:11 07:20 POC Glucose 81 142 H 98 05/26/25 11:27 POC Glucose 191 H Discharge Plan Discharge Patient Disposition: er SNF Discharge Diagnosis: Osteomyelitis Diabetic foot ulcer MSSA bacteremia Acute hypoxic respiratory failure Referrals: Mac Clarke MD [Primary Care Provider, Internal Medicine] - 1 Week Discharge Medications: New spironolactone 25 mg Tablet 25 mg PO DAILY Qty: 30 0RF Protocol: Hold for SBP< HOLD for SBP < : 90 carvedilol 3.125 mg Tablet 3.125 mg PO BID Qty: 60 0RF Protocol: Hold for SBP/HR < HOLD for SBP < : 90 HOLD for HR < : 60 bumetanide 1 mg Tablet 1 mg PO DAILY Qty: 30 0RF Protocol: Hold for SBP< HOLD for SBP < : 90 cefazolin in dextrose (iso-os) 2 gram/50 mL Piggyback 50 ml IV Q8H Jardiance 10 mg Tablet 10 mg PO DAILY Qty: 30 0RF Entresto 49-51 mg Tablet 1 tab PO BID Qty: 30 0RF Protocol: Hold for SBP< HOLD for SBP < : 90 Continued (DME) Off loading shoe large See Rx Instructions .Route .MEDSUPPLY Qty: 1 0RF Rx Instructions: As directed (DME) Xeroform Petrolatum Dressing 1 X 8 bandage See Rx Instructions .ROUTE .MEDSUPPLY Qty: 200 0RF Rx Instructions: apply to foot wound daily (DME) adhesive tape 2 X 10 -yard tape See Rx Instructions .ROUTE .MEDSUPPLY Qty: 1 3RF Rx Instructions: apply to foot wound daily (DME) prosthetic Kit See Rx Instructions .Route Qty: 1 0RF Rx Instructions: As directed (DME) Bedside commode See Rx Instructions .Route .MEDSUPPLY Qty: 1 0RF Rx Instructions: As directed (DME) Shower Chair See Rx Instructions .Route .MEDSUPPLY Qty: 1 0RF Rx Instructions: As directed (DME) Walker See Rx Instructions .Route .MEDSUPPLY Qty: 1 0RF Rx Instructions: As directed amitriptyline 50 mg Tablet 50 mg PO BEDTIME methadone 10 mg/mL Concentrate 80 mg PO DAILY Rx Instructions: [facility] (DME) Wheel chair Kit See Rx Instructions .Route Qty: 1 0RF Rx Instructions: As directed insulin glargine [Lantus U-100 Insulin] 100 unit/mL solution 20 unit subcut DAILY (DME) FreeStyle Lite Strips Strip See Rx Instructions Not Applicable TID Qty: 10 Rx Instructions: As directed (DME) insulin syringe-needle U-100 [BD Insulin Syringe Ultra-Fine] 1 mL 31 gauge x 5/16 syringe See Rx Instructions .ROUTE DAILY Qty: 10 Rx Instructions: As directed (DME) Band-Aid Rolled Gauze 4 X 2.5 -yard bandage See Rx Instructions .ROUTE .MEDSUPPLY Qty: 30 3RF Rx Instructions: apply to foot wound daily (DME) Band-Aid Gauze Pads 3 X 3 bandage See Rx Instructions .ROUTE .MEDSUPPLY Qty: 25 3RF Rx Instructions: apply to foot wound daily Discontinued diltiazem HCl 180 mg capsule,extended release 24hr 180 mg PO DAILY Diet: Advance to usual diet Activity on Discharge: As tolerated Stand Alone Forms: Patient Portal Discharge page Print Language: Wallisian Activity Restrictions/Additional Instructions: Topical Wound Care Recommendations: Negative Pressure Wound Therapy (NPWT - Wound Vac) set at 125mmHg low and continuos, recommend changing on schedule of M, W, or T, , S. Care Plan Goals: Continue cefazolin for total of 6 weeks, end date 07/02/2025. RN may remove PICC line after last dose Health Concerns: Osteomyelitis Diabetic foot ulcer MSSA bacteremia Acute hypoxic respiratory failure Plan of Treatment: Follow up with primary care provider as needed Take all medications as prescribed Assessment: See discharge summary
--- NOTE | 2025-05-26 16:10 | MHC.CM.PN ---
Per rounds, pt is ready to go to SNF,where he needs care for wounds and 6 wks IV ABX. His DCP is to to to [facility] in [place], anticipate DC to there tomorrow.
[2025-05-26 16:18] LABS: Glucose, Whole Blood 90 mg/dL (60-115)
[2025-05-26 19:26] VITALS: BP 144/67; PULSE 70; RESP 16; TEMP 36.5; O2SAT 96
--- NOTE | 2025-05-26 20:08 | HO.WOUND ---
Addendum entered by Reyna Yadav RN 05/27/25 15:13: 05/27/25 @ 1513 Veraflo wound vac checked several times throughout the day. Overnight there were a few medium suction alarms but no leaks detected. Instill appears to have been running properly overnight. Todays there were no alarms/ and no leaks /detected - ran through instill phases without issue per patient, staff and alarm review. The dressing was inspected and no maceration and no leak noted. At this time patient prior auth not yet complete for d/c to [facility]ACH pending d/c tomorrow 05/28/25. If patient is to be discharged general surgery will remove the the Veraflo dressing and apply wet to dry dressing. Wound Vac IS NOT to go with patient - [place] [facility] [place] If patient prior auth is still not complete General Surgery MORA Adams will change the wound vac dressing to ensure proper care as wound vac dressing including veraflo should be changed every 48 - 72 hours. Nursing Considerations: NPWT Suction Settings: 125mmHg - Setting Type: Continuous Low with Veraflo set to 10Ml instill NS for 10 min then return to suction for 2 hours. Extra Canisters left at bedside for direct care team use if needed. Standard NS 500ml bag of fluid left at bedside in case of need. 1 medium Veraflo dressing kit left at bedside in case patient stays beyond tomorrow 05/28/25. Wound vac should be on and set to suction at all times - if leak occurs reinforce with drape left at bedside or tegaderm.? If unable to obtain seal page covering doctor from General Surgery Service Team.? If not able to obtain suction for 2 consecutive hours remove and apply wet to dry dressing - notify providers. If bright red blood is noted in Vac canister stop wound vac and page doctor immediately. Original Note: Wound Consult: Follow up 64yr old?[place] [facility] [place] - See progress notes and H&P for detailed history.? Wound consult follow up for Left plantar.?? Patient is well known to this commercial real estate underwriter from prior admissions. Veraflo Medium dressing was obtained and was applied by MORA Deras from General Surgery with my assistance. No Leak noted - Should Leak occur I recommended direct care team switched to standard NPWT Standard Therapy vac set at 125mmhg low and continuos if significant leaking occurs recommend removal and wet to dry saline application. 05/26/25 05/25/25 NPWT Suction Settings: 125mmHg - Setting Type: Continuous Low with Veraflo set to 10Ml instill NS for 10 min then return to suction No Premedication Provided. Wound assessment: 8.5cm x 5cm x 2cm? - no undermining noted Wound bed: red moist viable tissue with marbled area of yellow moist slough inpattern of Veraflo? - no exposed bone or tendon observed or palpated Cleanse and irrigated with NS. NPWT Dressing Application: 2 black foam cut to size and applied to wound bed with thin solid black foam, Skin and wound edge protected with cavelon and barrier strip paste.? Skin protected with Drape no used in effort to limit complications with veraflo. Dressing completed and no leak noted.? Suction set to 125mmHg - patient denies pain and or burning sensation. Patient tolerated well.? Details from prior assessment / consultation. 05/24/25 on admission Left Lateral Plantar Foot Etiology: ?Diabetic wound Left Leg Etiology: Improving Venous vs Diabetic wounds Wound Bed: pink moist wound bed partial thickness tissue loss Drainage / Odor: seroous drainage noted on dressing - No odor Edges: ? well defined and attached Shara wound: Hemosiderin staining noted - scar tissue noted - No Induration, Fluctuance or Warmth noted Pain: reports pain Goals of Treatment: Moisture management with Durafiber AG Right Posterior thigh - MASD - with friction - appears to be improving - recommend Triad application - patient was also noted to have fungal dermatitis - provider to order antifungal powder for treatment. apply twice daily. Recommendations: 1. Turn and Reposition every 2 hours and as needed for patient comfort.? Use pillows or wedges to support off loading positions. 2. Off Load all bony prominences with use of pillows and heel boots if needed.? Apply Preventative foams where needed. ? 3. Monitor for incontinence and moisture control, use barrier creams when needed for prevention and treatment. 4. Provide adequate and supplemental nutrition.? 5. Continue low air loss mattress. 6. Maintain blood glucose levels per Providers order. Left Lower Leg - Elevate lower legs - Off Load Pressure and limit ambulating on foot. Cleanse with saline, pat dry. ?Apply barrier cream to wound bed. Cover wound bed with Durafiber AG, Cover with Dry gauze, ABD pad and wrap. Change every other day. Right Posterior leg - Off Load Pressure with Q2 hr turns and use of pillows - Cleanse with PH balance spray or wipes, pat dry. ?Apply thin layer of Triad to wound bed - only pat and dab no scrub and rub when soiling occurs. Reapply thin layer PRN after each episode of incontinence. Left Plantar - Wound Vac in place - 125mmhg suction low and continuous. Veraflo set to 10ml with 10min install. Re-consult wound care Nurse for wound deterioration or wound changes.
[2025-05-26 20:23] LABS: Glucose, Whole Blood 152 mg/dL (60-115)
[2025-05-27] VITALS (7 sets, daily range): BP systolic 125–154; BP diastolic 68–80; PULSE 66–73; RESP 16–20; TEMP 36.3–36.7; O2SAT 92–99
[2025-05-27 07:25] LABS: Glucose, Whole Blood 81 mg/dL (60-115)
--- NOTE | 2025-05-27 07:26 | PM.PNGS ---
Subjective Subjective Date of Service: 05/27/25 Patient reports: no new complaints Interval history: patient doing well. Veraflo in place. there were a couple seal alarms overnight, appears to have good seal this morning. patient has been keeping the leg elevated all night Physical Exam Vital Signs: Vital Signs: Last Vital Signs Temp 97.9 F 05/27/25 03:32 Pulse 69 05/27/25 03:32 Resp 16 05/27/25 03:32 BP 143/68 H 05/27/25 03:32 Pulse Ox 92 05/27/25 03:32 O2 Del Method Room Air 05/27/25 03:32 O2 Flow Rate 2 05/21/25 15:10 BMI result Body Mass Index 24.1 Const: General: comfortable and no acute distress Orientation/consciousness: patient oriented x3 Resp: Effort & Inspection: normal respiratory effort and able to speak in complete sentences GI: Inspection: Yes distended Skin: Other: large 8x5 cm open wound on the plantar aspect of the foot. mild slough in the central aspect, wound border is well defined. bleeding and granulation tissue noted. mildly tender in the central aspect multiple smaller superficial wounds along the fenton and calf veraflo vac in place Neuro: General: patient oriented x3 Objective Data Active Medications Acetaminophen (Acetaminophen 325 Mg Tablet) 650 mg PO Q6H PRN PRN Reason: Pain, Mild 1-3,fever,headache Last Admin: 05/23/25 07:19 Dose: 650 mg Documented By: MAXIMILIANO Albuterol/Ipratropium (Albuterol/Iprat 2.5/0.5mg 3 Ml Ampul.Neb) 3 ml INHALE RQ4H WHILE AWAKE PRN PRN Reason: Shortness of Breath Amitriptyline HCl (Amitriptyline Hcl 50 Mg Tablet) 50 mg PO BEDTIME [facility] Last Admin: 05/26/25 20:10 Dose: 50 mg Documented By: ELVIS Bumetanide (Bumetanide 1 Mg Tablet) 1 mg PO DAILY [facility]; Protocol Last Admin: 05/26/25 08:28 Dose: 1 mg Documented By: TARIQ Calcium Carbonate (Calcium Carbonate 750 Mg Tab.Chew) 750 mg PO Q4H PRN PRN Reason: Heartburn Carvedilol (Carvedilol 3.125 Mg Tablet) 3.125 mg PO BID [facility]; Protocol Last Admin: 05/26/25 20:10 Dose: 3.125 mg Documented By: ELVIS Dextrose (Dextrose 50 % 25 Gm/50 Ml Syringe) 25 gm IVPUSH Q15M PRN; Protocol PRN Reason: per Hypoglycemia Standing Ord. Dextrose (Dextrose 50 % 25 Gm/50 Ml Syringe) 25 gm IVPUSH Q15M PRN; Protocol PRN Reason: per Hypoglycemia Standing Ord. Empagliflozin (Empagliflozin 10 Mg Tablet) 10 mg PO DAILY [facility] On Hold: 05/18/25 13:54 Last Admin: 05/18/25 09:04 Dose: 10 mg Documented By: KANDI Enoxaparin Sodium (Enoxaparin Sodium 40 Mg/0.4 Ml Syringe) 40 mg SUBCUT BEDTIME [facility] Last Admin: 05/26/25 20:12 Dose: 40 mg Documented By: ELVIS Glucose (Glucose Gel 15 Gm Gel..Gram.) 15 gm PO Q15M PRN; Protocol PRN Reason: per Hypoglycemia Standing Ord. Cefazolin Sodium/Dextrose (Ancef) 2 gm in 50 mls @ 100 mls/hr IV Q8H [facility] Last Infusion: 05/27/25 01:59 Dose: Infused Documented By: ELVIS Insulin Glargine (Insulin Glargine,Hum.Rec.Anlog 100 Unit/Ml 10 Ml Vial) 20 unit SUBCUT DAILY [facility] Last Admin: 05/26/25 08:28 Dose: 20 unit Documented By: TARIQ Insulin Human Lispro (Insulin Lispro 100 Unit/Ml 3 Ml Vial) 0 unit SUBCUT QIDACHS [facility]; Protocol Last Admin: 05/26/25 21:01 Dose: 2 unit Documented By: ELVIS Magnesium Hydroxide (Milk Of Magnesia 30 Ml Oral.Susp) 30 ml PO DAILY PRN PRN Reason: Constipation Melatonin (Melatonin 3 Mg Tablet) 6 mg PO BEDTIME PRN PRN Reason: Insomnia Last Admin: 05/24/25 20:16 Dose: 6 mg Documented By: NARAYAN Methadone HCl (Methadone Hcl 20 Mg/2 Ml Oral.Conc) 80 mg PO DAILY [facility] Last Admin: 05/26/25 08:28 Dose: 80 mg Documented By: TARIQ Co-signed By: DEV Naloxone HCl (Naloxone Hcl 0.4 Mg/Ml Vial) 0.04 mg IVPUSH Q5M PRN PRN Reason: Excessive sedation or RR < 8 Nystatin (Nystatin Powder 15 Gm Bottle) 1 appl TOPICAL BID [facility]; Protocol Last Admin: 05/26/25 20:14 Dose: 1 appl Documented By: ELVIS Polyethylene Glycol (Polyethylene Glycol 3350 17 Gm Powd.Pack) 17 gm PO DAILY PRN PRN Reason: Constipation Sacubitril/Valsartan (Sacubitril/Valsartan 49/51 1 Tab Tablet) 1 tab PO BID [facility]; Protocol Last Admin: 05/26/25 20:10 Dose: 1 tab Documented By: ELVIS Sodium Chloride (0.9 % Sodium Chloride Flush 3 Ml Syringe) 3 ml IVFLUSH QSHIFT [facility] Last Admin: 05/26/25 20:14 Dose: 3 ml Documented By: ELVIS Spironolactone (Spironolactone 25 Mg Tablet) 25 mg PO DAILY [facility]; Protocol Last Admin: 05/26/25 08:28 Dose: 25 mg Documented By: TARIQ Labs 05/22/25 06:05 05/24/25 06:45 Labs: Laboratory Results - last 24 hr 05/26/25 05/26/25 05/26/25 11:27 16:15 20:20 POC Glucose 191 H 90 152 H 05/27/25 07:14 POC Glucose 81 Procedures Date of Service Date of Service: 05/27/25 Progress Note: A&P Assessment and plan (1) Diabetic foot ulcer: Status: Acute (2) Acute osteomyelitis of left foot: Status: Acute Plan 64 year old male admitted for management of acute osteomyelitis and large foot ulcer. Continuing with limb salvaging goals. Patient not experiencing pain. Patient had veraflo reapplied yesterday. There were a few alarms overnight however the seal appears good this morning and there is not evidence of saturation due to the instillation. We have ordered the smaller size vac to hopefully not require a bridge which i believe is where there is issue with seal during instillation. The wound did have a good amount of granulation tissue yesterday when the vac was changed, there was a small amount of slough in the center of the wound. Hospitalist planning for DC this afternoon to rehab facility, will need veraflo removed, plan to continue with wound vac at rehab. Continue antibiotics glucose control continue veraflo, removed at discharge. Can do wet to dry for transfer. Would continue with silver alginate for proximal extremity fenton and calf wounds Time Spent With Patient Time: Total time managing care of this patient today ____ minutes. Quality Stroke Does the patient have a stroke diagnosis?: No VTE Prior VTE?: No VTE Risk Level:: Medical - moderate - high VTE Device Contraindication: Treatment Not Indicated VTE Drug Contraindication: N/A - Med Ordered
[2025-05-27] MEDS: Insulin Glargine,Hum.rec.anlog 100 UNIT/ML 10 ML VIAL 20 UNIT SUBCUT (09:38)
[2025-05-27] MEDS: methADONE HCl 20 MG/2 ML ORAL.CONC 80 MG PO (09:39)
[2025-05-27] MEDS: Sacubitril/Valsartan 49/51 1 TAB TABLET PO ×2 (09:39→19:27)
[2025-05-27] MEDS: 0.9 % Sodium Chloride Flush 3 ML SYRINGE IVFLUSH ×3 (09:39→19:32)
[2025-05-27 11:55] LABS: Glucose, Whole Blood 145 mg/dL (60-115)
--- NOTE | 2025-05-27 15:00 | HO.PM.IMPN ---
Subjective Subjective Date of Service: 05/27/25 Interval History: Veraflo in place, denies pain, no fever, no complaints Review of Systems Review of Systems: Yes all other systems are reviewed and are negative Physical Exam Vital Signs: Vital Signs: Last Vital Signs Temp 97.7 F 05/27/25 12:00 Pulse 71 05/27/25 12:00 Resp 20 05/27/25 12:00 BP 154/75 H 05/27/25 12:00 Pulse Ox 99 05/27/25 12:00 O2 Del Method Room Air 05/27/25 12:00 O2 Flow Rate 2 05/21/25 15:10 BMI result Body Mass Index 24.1 Gen: in no acute distress HEENT: sclera anicteric, moist mucus membranes Neck: supple Lungs: clear to auscultation bilaterally Heart: regular rate and rhythm, no murmurs Abd: soft, non-tender, non-distended Ext: no edema, s/p R BKA + L TMA, L plantar wound with Veraflo VAC in place Skin: warm/well-perfused Neuro: alert and oriented x3, no focal findings Psych: appropriate affect Objective Data Active Medications Acetaminophen (Acetaminophen 325 Mg Tablet) 650 mg PO Q6H PRN PRN Reason: Pain, Mild 1-3,fever,headache Last Admin: 05/23/25 07:19 Dose: 650 mg Documented By: MAXIMILIANO Albuterol/Ipratropium (Albuterol/Iprat 2.5/0.5mg 3 Ml Ampul.Neb) 3 ml INHALE RQ4H WHILE AWAKE PRN PRN Reason: Shortness of Breath Amitriptyline HCl (Amitriptyline Hcl 50 Mg Tablet) 50 mg PO BEDTIME [facility] Last Admin: 05/26/25 20:10 Dose: 50 mg Documented By: ELVIS Bumetanide (Bumetanide 1 Mg Tablet) 1 mg PO DAILY [facility]; Protocol Last Admin: 05/27/25 09:39 Dose: 1 mg Documented By: VANE Calcium Carbonate (Calcium Carbonate 750 Mg Tab.Chew) 750 mg PO Q4H PRN PRN Reason: Heartburn Carvedilol (Carvedilol 3.125 Mg Tablet) 3.125 mg PO BID [facility]; Protocol Last Admin: 05/27/25 09:39 Dose: 3.125 mg Documented By: VANE Dextrose (Dextrose 50 % 25 Gm/50 Ml Syringe) 25 gm IVPUSH Q15M PRN; Protocol PRN Reason: per Hypoglycemia Standing Ord. Dextrose (Dextrose 50 % 25 Gm/50 Ml Syringe) 25 gm IVPUSH Q15M PRN; Protocol PRN Reason: per Hypoglycemia Standing Ord. Empagliflozin (Empagliflozin 10 Mg Tablet) 10 mg PO DAILY [facility] On Hold: 05/18/25 13:54 Last Admin: 05/18/25 09:04 Dose: 10 mg Documented By: KANDI Enoxaparin Sodium (Enoxaparin Sodium 40 Mg/0.4 Ml Syringe) 40 mg SUBCUT BEDTIME [facility] Last Admin: 05/26/25 20:12 Dose: 40 mg Documented By: ELVIS Glucose (Glucose Gel 15 Gm Gel..Gram.) 15 gm PO Q15M PRN; Protocol PRN Reason: per Hypoglycemia Standing Ord. Cefazolin Sodium/Dextrose (Ancef) 2 gm in 50 mls @ 100 mls/hr IV Q8H [facility] Last Infusion: 05/27/25 10:35 Dose: Infused Documented By: VANE Insulin Glargine (Insulin Glargine,Hum.Rec.Anlog 100 Unit/Ml 10 Ml Vial) 20 unit SUBCUT DAILY [facility] Last Admin: 05/27/25 09:38 Dose: 20 unit Documented By: VANE Insulin Human Lispro (Insulin Lispro 100 Unit/Ml 3 Ml Vial) 0 unit SUBCUT QIDACHS [facility]; Protocol Last Admin: 05/27/25 12:04 Dose: Not Given Documented By: VANE Non-Admin Reason: No Insulin Coverage Magnesium Hydroxide (Milk Of Magnesia 30 Ml Oral.Susp) 30 ml PO DAILY PRN PRN Reason: Constipation Melatonin (Melatonin 3 Mg Tablet) 6 mg PO BEDTIME PRN PRN Reason: Insomnia Last Admin: 05/24/25 20:16 Dose: 6 mg Documented By: NARAYAN Methadone HCl (Methadone Hcl 20 Mg/2 Ml Oral.Conc) 80 mg PO DAILY [facility] Last Admin: 05/27/25 09:39 Dose: 80 mg Documented By: VANE Co-signed By: DRAGAN Naloxone HCl (Naloxone Hcl 0.4 Mg/Ml Vial) 0.04 mg IVPUSH Q5M PRN PRN Reason: Excessive sedation or RR < 8 Nystatin (Nystatin Powder 15 Gm Bottle) 1 appl TOPICAL BID [facility]; Protocol Last Admin: 05/27/25 10:09 Dose: Not Given Documented By: VANE Non-Admin Reason: Previously Administered Polyethylene Glycol (Polyethylene Glycol 3350 17 Gm Powd.Pack) 17 gm PO DAILY PRN PRN Reason: Constipation Sacubitril/Valsartan (Sacubitril/Valsartan 49/51 1 Tab Tablet) 1 tab PO BID [facility]; Protocol Last Admin: 05/27/25 09:39 Dose: 1 tab Documented By: VANE Sodium Chloride (0.9 % Sodium Chloride Flush 3 Ml Syringe) 3 ml IVFLUSH QSHIFT [facility] Last Admin: 05/27/25 09:39 Dose: 3 ml Documented By: VANE Spironolactone (Spironolactone 25 Mg Tablet) 25 mg PO DAILY [facility]; Protocol Last Admin: 05/27/25 09:39 Dose: 25 mg Documented By: VANE Labs 05/22/25 06:05 05/24/25 06:45 Labs: Laboratory Results - last 24 hr 05/26/25 05/26/25 05/27/25 16:15 20:20 07:14 POC Glucose 90 152 H 81 05/27/25 11:51 POC Glucose 145 H Assessment and Plan (1) Acute osteomyelitis of left foot: Status: Acute Plan d13 for 64yo M with HTN, HLD, DM, R BKA, L TMA with chronic plantar ulcer, AF not on AC presenting with L foot pain redness/swelling, admitted for osteomyelitis, found to have bacteremia MSSA + group G Streptococcus bacteremia/osteomyelitis of L TMA stump - repeat BCx negative, TTE negative for vegetation, plan 6 wk IV cefazolin per ID [end date 07/01/25] - Vasc Surg: no intervention - Gen Surg: pt declined BKA, planed limb salvage with IV ABX and debridement/VAC with Veraflo - PICC placed 05/25 nonblood loss anemia - H+H stable after 2u pRBCs transfused, goal Hct 30+ per Cardiology AHRF due to acute HFrEF HTN - TTE with LVEF 25-30%; continue Jardiance, spironolactone, Entresto, bumetanide, and carvedilol; d/c'ed diltiazem - dobutamine stress test with no ischemia DM2 - basal-bolus insulin OUD - methadone VTE ppx - enoxaparin dispo - plan LTACH, awaiting authorization In my clinical judgment, the patient requires continued inpatient hospitalization for the following reasons: placement Total time managing care of this patient today: 35 minutes. Quality Stroke Does the patient have a stroke diagnosis?: No VTE Prior VTE?: No VTE Risk Level:: Medical - moderate - high VTE Device Contraindication: Treatment Not Indicated VTE Drug Contraindication: N/A - Med Ordered
--- NOTE | 2025-05-27 15:33 | HO.WOUND ---
Wound Consult: Follow up 64yr old?Male admitted [place] [facility] [place] - See progress notes and H&P for detailed history.? Wound consult follow up for Left plantar.?? Patient is well known to this mortgage underwriter from prior admissions. Veraflo wound vac checked several times throughout the day. Overnight there were a few medium suction alarms but no leaks detected. Instill appears to have been running properly overnight. Todays there were no alarms/ and no leaks /detected - ran through instill phases without issue per patient, staff and alarm review. The dressing was inspected and no maceration and no leak noted. At this time patient prior auth not yet complete for d/c to LTACH pending d/c tomorrow 05/28/25. If patient is to be discharged general surgery will remove the the Veraflo dressing and apply wet to dry dressing. Wound Vac IS NOT to go with patient - it remains here at [facility] [place]. If patient prior auth is still not complete General Surgery MORA Adams will change the wound vac dressing to ensure proper care as wound vac dressing including veraflo should be changed every 48 - 72 hours. Nursing Considerations: NPWT Suction Settings: 125mmHg - Setting Type: Continuous Low with Veraflo set to 10Ml instill NS for 10 min then return to suction for 2 hours. Extra Canisters left at bedside for direct care team use if needed. Standard NS 500ml bag of fluid left at bedside in case of need. 1 medium Veraflo dressing kit left at bedside in case patient stays beyond tomorrow 05/28/25. Wound vac should be on and set to suction at all times - if leak occurs reinforce with drape left at bedside or tegaderm.? If unable to obtain seal page covering doctor from General Surgery Service Team.? If not able to obtain suction for 2 consecutive hours remove and apply wet to dry dressing - notify providers. If bright red blood is noted in Vac canister stop wound vac and page doctor immediately.
[2025-05-27 16:24] LABS: Glucose, Whole Blood 134 mg/dL (60-115)
[2025-05-27 20:32] LABS: Glucose, Whole Blood 157 mg/dL (60-115)
[2025-05-28 04:00] VITALS: BP 156/73; PULSE 64; RESP 17; TEMP 36.4; O2SAT 96
--- NOTE | 2025-05-28 07:14 | PM.PNGS ---
Subjective Subjective Date of Service: 05/28/25 Patient reports: no new complaints Interval history: no changes overnight. Still waiting for placement into SNF. denies pain. Physical Exam Vital Signs: Vital Signs: Last Vital Signs Temp 97.6 F 05/28/25 04:00 Pulse 64 05/28/25 04:00 Resp 17 05/28/25 04:00 BP 156/73 H 05/28/25 04:00 Pulse Ox 96 05/28/25 04:00 O2 Del Method Room Air 05/28/25 04:00 O2 Flow Rate 2 05/21/25 15:10 BMI result Body Mass Index 24.1 Const: General: comfortable and no acute distress Orientation/consciousness: patient oriented x3 Resp: Effort & Inspection: normal respiratory effort and able to speak in complete sentences Skin: Other: large 8x5 cm open wound on the plantar aspect of the foot. mild slough in the central aspect, wound border is well defined. bleeding and granulation tissue noted. mildly tender in the central aspect multiple smaller superficial wounds along the fenton and calf veraflo vac in place Neuro: General: patient oriented x3 Objective Data Active Medications Acetaminophen (Acetaminophen 325 Mg Tablet) 650 mg PO Q6H PRN PRN Reason: Pain, Mild 1-3,fever,headache Last Admin: 05/23/25 07:19 Dose: 650 mg Documented By: MAXIMILIANO Albuterol/Ipratropium (Albuterol/Iprat 2.5/0.5mg 3 Ml Ampul.Neb) 3 ml INHALE RQ4H WHILE AWAKE PRN PRN Reason: Shortness of Breath Amitriptyline HCl (Amitriptyline Hcl 50 Mg Tablet) 50 mg PO BEDTIME [facility] Last Admin: 05/27/25 19:27 Dose: 50 mg Documented By: HECTOR Bumetanide (Bumetanide 1 Mg Tablet) 1 mg PO DAILY [facility]; Protocol Last Admin: 05/27/25 09:39 Dose: 1 mg Documented By: DOBROB Calcium Carbonate (Calcium Carbonate 750 Mg Tab.Chew) 750 mg PO Q4H PRN PRN Reason: Heartburn Carvedilol (Carvedilol 3.125 Mg Tablet) 3.125 mg PO BID [facility]; Protocol Last Admin: 05/27/25 19:27 Dose: 3.125 mg Documented By: HO.N-DESSK Dextrose (Dextrose 50 % 25 Gm/50 Ml Syringe) 25 gm IVPUSH Q15M PRN; Protocol PRN Reason: per Hypoglycemia Standing Ord. Dextrose (Dextrose 50 % 25 Gm/50 Ml Syringe) 25 gm IVPUSH Q15M PRN; Protocol PRN Reason: per Hypoglycemia Standing Ord. Empagliflozin (Empagliflozin 10 Mg Tablet) 10 mg PO DAILY [facility] Last Admin: 05/18/25 09:04 Dose: 10 mg Documented By: KANDI Enoxaparin Sodium (Enoxaparin Sodium 40 Mg/0.4 Ml Syringe) 40 mg SUBCUT BEDTIME [facility] Last Admin: 05/27/25 19:27 Dose: 40 mg Documented By: DESHAUN-TAYLER Glucose (Glucose Gel 15 Gm Gel..Gram.) 15 gm PO Q15M PRN; Protocol PRN Reason: per Hypoglycemia Standing Ord. Cefazolin Sodium/Dextrose (Ancef) 2 gm in 50 mls @ 100 mls/hr IV Q8H [facility] Last Infusion: 05/27/25 23:56 Dose: Infused Documented By: HECTOR Insulin Glargine (Insulin Glargine,Hum.Rec.Anlog 100 Unit/Ml 10 Ml Vial) 20 unit SUBCUT DAILY [facility] Last Admin: 05/27/25 09:38 Dose: 20 unit Documented By: VANE Insulin Human Lispro (Insulin Lispro 100 Unit/Ml 3 Ml Vial) 0 unit SUBCUT QIDACHS [facility]; Protocol Last Admin: 05/27/25 21:02 Dose: 2 unit Documented By: HECTOR Magnesium Hydroxide (Milk Of Magnesia 30 Ml Oral.Susp) 30 ml PO DAILY PRN PRN Reason: Constipation Melatonin (Melatonin 3 Mg Tablet) 6 mg PO BEDTIME PRN PRN Reason: Insomnia Last Admin: 05/24/25 20:16 Dose: 6 mg Documented By: NARAYAN Methadone HCl (Methadone Hcl 20 Mg/2 Ml Oral.Conc) 80 mg PO DAILY [facility] Last Admin: 05/27/25 09:39 Dose: 80 mg Documented By: VANE Co-signed By: DRAGAN Naloxone HCl (Naloxone Hcl 0.4 Mg/Ml Vial) 0.04 mg IVPUSH Q5M PRN PRN Reason: Excessive sedation or RR < 8 Nystatin (Nystatin Powder 15 Gm Bottle) 1 appl TOPICAL BID [facility]; Protocol Last Admin: 05/27/25 19:32 Dose: Not Given Documented By: HECTOR Non-Admin Reason: Patient Refused Polyethylene Glycol (Polyethylene Glycol 3350 17 Gm Powd.Pack) 17 gm PO DAILY PRN PRN Reason: Constipation Sacubitril/Valsartan (Sacubitril/Valsartan 49/51 1 Tab Tablet) 1 tab PO BID [facility]; Protocol Last Admin: 05/27/25 19:27 Dose: 1 tab Documented By: HECTOR Sodium Chloride (0.9 % Sodium Chloride Flush 3 Ml Syringe) 3 ml IVFLUSH QSHIFT [facility] Last Admin: 05/27/25 19:32 Dose: 3 ml Documented By: HECTOR Spironolactone (Spironolactone 25 Mg Tablet) 25 mg PO DAILY [facility]; Protocol Last Admin: 05/27/25 09:39 Dose: 25 mg Documented By: DOBROB Labs 05/22/25 06:05 05/24/25 06:45 Labs: Laboratory Results - last 24 hr 05/27/25 05/27/25 05/27/25 07:14 11:51 16:18 POC Glucose 81 145 H 134 H 05/27/25 20:29 POC Glucose 157 H Procedures Date of Service Date of Service: 05/28/25 Progress Note: A&P Assessment and plan (1) Diabetic foot ulcer: Status: Acute (2) Acute osteomyelitis of left foot: Status: Acute Plan 64 year old male admitted for management of acute osteomyelitis and large foot ulcer. Continuing with limb salvaging goals. Patient not experiencing pain. Patient had veraflo reapplied 05/26. There were a few alarms overnight however the seal appears good this morning and there is not evidence of saturation due to the instillation. patient waiting on accpetance for transfer to SNF. If patient d/c today, will remove veraflo, apply wet to dry dressing for transfer, SNF will resume wound vac. If patient not going to d/c will change veraflo this afternoon. Continue antibiotics glucose control continue veraflo, removed at discharge. Can do wet to dry for transfer. Would continue with silver alginate for proximal extremity fenton and calf wounds leg elevation Time Spent With Patient Time: Total time managing care of this patient today ____ minutes. Quality Stroke Does the patient have a stroke diagnosis?: No VTE Prior VTE?: No VTE Risk Level:: Medical - moderate - high VTE Device Contraindication: Treatment Not Indicated VTE Drug Contraindication: N/A - Med Ordered
[2025-05-28 07:31] VITALS: BP 145/77; PULSE 70; RESP 18; TEMP 36.1; O2SAT 97
[2025-05-28 07:59] LABS: Glucose, Whole Blood 105 mg/dL (60-115)
[2025-05-28] MEDS: Sacubitril/Valsartan 49/51 1 TAB TABLET PO ×2 (08:20→19:59)
[2025-05-28] MEDS: 0.9 % Sodium Chloride Flush 3 ML SYRINGE IVFLUSH ×3 (08:20→20:00)
[2025-05-28] MEDS: Insulin Glargine,Hum.rec.anlog 100 UNIT/ML 10 ML VIAL 20 UNIT SUBCUT (08:21)
[2025-05-28] MEDS: methADONE HCl 20 MG/2 ML ORAL.CONC 80 MG PO (08:22)
--- NOTE | 2025-05-28 10:49 | HO.VASCPN ---
Subjective Subjective Date of Service: 05/28/25 Patient reports: no new complaints and feels better Interval history: Patient seen and examined. No significant events overnight. Appears to be doing relatively well. Currently with a wound VAC on left lower extremity wound. There is underlying osteomyelitis. Physical Exam Vital Signs: Vital Signs: Last Vital Signs Temp 96.9 F 05/28/25 07:31 Pulse 70 05/28/25 07:31 Resp 18 05/28/25 07:31 BP 145/77 H 05/28/25 07:31 Pulse Ox 97 05/28/25 07:31 O2 Del Method Room Air 05/28/25 07:31 O2 Flow Rate 2 05/21/25 15:10 BMI result Body Mass Index 24.1 Const: General: cooperative, healthy appearing and comfortable Orientation/consciousness: oriented to person, oriented to place and oriented to time HEENT: Head: Yes normal to inspection Neck: Neck: Yes normal visual inspection Carotids: no bruits Chest: Chest palpation & inspection: normal inspection of the chest Resp: Effort & Inspection: normal respiratory effort and able to speak in complete sentences Auscultation: clear to auscultation bilaterally, no crackles, no rales, no rhonchi and no wheezes Cardio: Rate: regular rate Rhythm: regular rhythm Heart sounds: S1 normal heart sound present and S2 normal heart sound present Bruits: no carotid bruits Peripheral pulses: Peripheral pulses 2+ throughout GI: Inspection: Yes normal to inspection Skin: Other: Left foot wound VAC intact. Wounds: no wounds Hair: normal Neuro: General: oriented to person, oriented to place and oriented to time Cranial nerves: Yes CN's II-XII intact bilaterally and Yes Normal hearing present Cognition (Neuro): normal cognition Motor exam (neuro): 5/5 motor strength present throughout Extrem: Other: venous exam: No significant superficial varicosities or spider telangiectasias, minimal edema General: No clubbing, No cyanosis and No edema Psych: Appearance: grossly normal Mental Status: mental status grossly normal Speech and movement: Normal speech and movement present Progress Note: A&P Assessment and plan (1) Sepsis: Status: Acute Assessment and Plan: In short patient has extensive left lower extremity ulcer penetrating to bone. At the current time there is a wound VAC. he is mostly bed-bound. There is an attempt to conservatively manage this. May require long-term antibiotics. Awaiting rehab placement. He will be on 6 weeks of IV cefazolin per Infectious Disease. Unfortunately I do think he is headed towards an amputation. This may be the best treatment for him. Once again we will see how this conservative management goes. He can see us as an outpatient. Thank you for allowing us to assist in his care. Time Spent With Patient Time: Total time managing care of this patient today ____ minutes. Procedures Date of Service Date of Service: 05/28/25 Quality Stroke Does the patient have a stroke diagnosis?: No VTE Prior VTE?: No VTE Risk Level:: Medical - moderate - high VTE Device Contraindication: Treatment Not Indicated VTE Drug Contraindication: N/A - Med Ordered
[2025-05-28 11:32] VITALS: BP 144/77; PULSE 76; RESP 18; TEMP 36.6; O2SAT 95
[2025-05-28 11:52] LABS: Glucose, Whole Blood 144 mg/dL (60-115)
--- NOTE | 2025-05-28 12:41 | PM.DS ---
DS: Providers Provider Date of Service: 05/28/25 Date of admission: 05/15/25 00:22 Date of discharge: 05/28/25 Primary care physician: Mac Clarke MD Consults: 05/15/25 00:21 Consult to Infectious Diseases Routine Consulting Provider: [facility] Reason for consultation: DM foot infection Consult to Vascular Surgery Routine Consulting Provider: [facility] Vascular Services Reason for consultation: DM foot infection 05/15/25 06:30 Consult to Cardiology Routine Consulting Provider: [facility] Cardiovascular Specialists Reason for consultation: new chf 05/15/25 10:14 Consult to Wound Care Routine Reason for consultation: Lt foot wound 05/16/25 07:38 Consult to General Surgery Routine Consulting Provider: [facility] General Surgeons Reason for consultation: possible debridement 05/21/25 10:15 Consult to Wound Care Routine Reason for consultation: right posterior thigh and rash to abdominal folds/groin DS: Diagnosis Discharge Diagnosis (1) Sepsis: Status: Acute (2) MSSA bacteremia: Status: Acute (3) Group G streptococcal infection: Status: Acute (4) Streptococcal bacteremia: Status: Acute (5) Osteomyelitis: Status: Resolved (6) Acute HFrEF (heart failure with reduced ejection fraction): Status: Acute (7) Anemia: Status: Acute (8) Acute hypoxic respiratory failure: Status: Acute DS: Summary Hospital Course Hospital Course: History and physical as per admitting provider Sandra Hines, 05/15/25: 64-year-old male with a past medical history of HTN, HLD, dm, right BKA, chronic diabetic left foot ulcer, history of left TMA, AFib-not on anticoagulation presented to the hospital today with a chief complaint of left foot pain redness and swelling. Patient mentioned for the past 3 days he has been having increased pain redness and swelling over the left leg and left foot ulcer. Denies any discharge. Reports subjective fevers. Patient denies any chest pain or palpitations. Denies any cough or sputum production. Denies any shortness of breath or dyspnea on exertion. Denies any urinary symptoms. Review of all other systems is negative except mentioned above ER course: Per ER team, patient noted to have chronic left foot wound with surrounding erythema extending onto the proximal 3rd of the leg and smaller so some noted on the distal part of the leg; ulcer extending up to the bones; concerning for acute osteomyelitis. X-rays consistent with 4th metatarsal stump osteomyelitis. While in the ER patient became acutely hypoxic requiring Oxymizer and subsequently transitioned down to nasal cannula at 5 L; patient denied any cough or sputum production. Chest x-ray showed bilateral opacities. CT chest showed no evidence of PE but noted to have findings consistent with pulmonary edema and small pleural effusion. 64yo M with HTN, HLD, DM, R BKA, L TMA with chronic plantar ulcer, AF not on AC presenting with L foot pain redness/swelling, admitted for osteomyelitis, found to have bacteremia with MSSA and group G Streptococcus. Hospital course by problem: MSSA + group G Streptococcus bacteremia/osteomyelitis of L TMA stump - repeat BCx negative, TTE negative for vegetation, PICC placed 05/25/25, plan 6 wk IV cefazolin per ID [end date 07/02/25 after which PICC may be removed] - Vasc Surg: no intervention - Gen Surg: pt declined BKA, planed limb salvage with IV ABX and debridement/VAC with Veraflo; changed to wet-dry dressings upon discharge and VAC to be replaced at [facility] in 2d. AHRF due to acute HFrEF HTN - TTE with LVEF 25-30%; continue Jardiance, spironolactone, Entresto, bumetanide, and carvedilol; d/c'ed diltiazem - dobutamine stress test with no ischemia nonblood loss anemia - H+H stable after 2u pRBCs transfused, goal Hct 30+ per Cardiology consultation He was discharged to [facility]. Time Attestation Discharge Coordination Time (in mins): 45 Quality: Safe Use of Opioids Does Pt have an Active Cancer Diagnosis on the Problem List?: No Quality: Stroke Does the patient have a stroke diagnosis?: No Physical Exam Vital Signs: Vital Signs: Last Vital Signs Temp 97.8 F 05/28/25 11:32 Pulse 76 05/28/25 11:32 Resp 18 05/28/25 11:32 BP 144/77 H 05/28/25 11:32 Pulse Ox 95 05/28/25 11:32 O2 Del Method Room Air 05/28/25 11:32 O2 Flow Rate 2 05/21/25 15:10 BMI result Body Mass Index 24.1 Gen: in no acute distress HEENT: sclera anicteric, moist mucus membranes Neck: supple Lungs: clear to auscultation bilaterally Heart: regular rate and rhythm, no murmurs Abd: soft, non-tender, non-distended Ext: no edema, s/p R BKA + L TMA, L plantar wound with Veraflo VAC in place Skin: warm/well-perfused Neuro: alert and oriented x3, no focal findings Psych: appropriate affect DS: Data Data Completed and Pending Completed studies during hospitalization [Text1]: Laboratory Results WBC 11.9 X10*3/uL (4.8-10.8) H 05/22/25 06:05 RBC 4.05 X10*6/uL (4.60-5.80) L 05/22/25 06:05 Hgb 10.1 g/dl (14.0-18.0) L 05/22/25 06:05 Hct 32.8 % (42.0-52.0) L 05/22/25 06:05 MCV 81.0 fL (80.0-98.0) 05/22/25 06:05 MCH 24.9 pg (27.0-33.0) L 05/22/25 06:05 MCHC 30.8 g/dl (31.0-36.0) L 05/22/25 06:05 RDW 15.4 % (11.0-16.0) 05/22/25 06:05 Plt Count 488 X10*3/uL (160-400) H 05/22/25 06:05 MPV 10.1 fL (9.4-12.4) 05/22/25 06:05 Immature Gran % (Auto) 0.8 % (0.0-0.4) H 05/15/25 06:20 Neut % (Auto) 78.7 % (45-73) H 05/15/25 06:20 Lymph % (Auto) 11.8 % (20-40) L 05/15/25 06:20 Kane % (Auto) 6.9 % (2-11) 05/15/25 06:20 Eos % (Auto) 1.4 % (0-4) 05/15/25 06:20 Baso % (Auto) 0.4 % (0-2) 05/15/25 06:20 Lymph # (Auto) 1.9 X10*3/uL (1.2-4.9) 05/15/25 06:20 Kane # (Auto) 1.1 X10*3/uL (0.1-1.2) 05/15/25 06:20 Eos # (Auto) 0.2 X10*3/uL (0.0-0.4) 05/15/25 06:20 Baso # (Auto) 0.1 X10*3/uL (0.0-0.2) 05/15/25 06:20 Abs Immat Gran (auto) 0.12 X10*3/uL (0.00-0.03) H 05/15/25 06:20 Absolute Neuts (auto) 12.4 x10*3/uL (2.0-8.3) H 05/15/25 06:20 Absolute Nucleated RBC 0.000 X10*3/uL (0.0-0.012) 05/22/25 06:05 Nucleated RBC % (auto) 0.0 /100WBC (0.0-0.2) 05/22/25 06:05 Hold Purple Top SEE NOTE 05/20/25 06:00 PT 18.3 SEC (10.9-12.4) H 05/14/25 23:11 INR 1.6 (0.9-1.1) H 05/14/25 23:11 APTT 35.4 SEC (26.0-36.8) 05/14/25 23:11 VBG pH 7.43 (7.32-7.43) 05/15/25 00:56 VBG pCO2 40 mmHg 05/15/25 00:56 VBG pO2 32 mmHg 05/15/25 00:56 VBG HCO3 27 mmol/L (22-26) H 05/15/25 00:56 VBG O2 Saturation 47.0 % 05/15/25 00:56 VBG Base Excess 2.9 mmol/L 05/15/25 00:56 Sodium 139 mmol/L (135-145) 05/24/25 06:45 Potassium 4.7 mmol/L (3.3-5.1) D 05/24/25 06:45 Chloride 104 mmol/L (96-108) 05/24/25 06:45 Carbon Dioxide 29 mmol/L (22-29) 05/24/25 06:45 Anion Gap 11 (12-20) L 05/24/25 06:45 BUN 18 mg/dL (9-16) H 05/24/25 06:45 Creatinine 1.22 mg/dL (0.5-1.4) 05/24/25 06:45 Estim Creat Clear Calc 78.1 05/24/25 06:45 Estimated GFR 60 05/24/25 06:45 POC Glucose 144 mg/dL (60-115) H 05/28/25 11:34 Random Glucose 114 mg/dL (60-115) 05/24/25 06:45 Lactic Acid 1.9 mmol/L (0.5-2.0) 05/14/25 23:08 Calcium 8.5 mg/dL (8.4-10.2) 05/24/25 06:45 Total Bilirubin 0.3 mg/dL (0.0-1.0) 05/14/25 23:11 AST 20 U/L (5-37) 05/14/25 23:11 ALT < 6 U/L (0-40) 05/14/25 23:11 Alkaline Phosphatase 81 U/L (39-117) 05/14/25 23:11 B-Natriuretic Peptide 1879 pg/mL (<100) H 05/16/25 07:11 Total Protein 8.1 g/dL (6.5-8.0) H 05/14/25 23:11 Albumin 2.9 g/dL (3.5-5.0) L 05/14/25 23:11 Random Vancomycin 15.2 mcg/mL (15-20) 05/19/25 19:54 Blood Type O Positive 05/15/25 11:09 Antibody Screen NEGATIVE 05/15/25 11:09 Crossmatch See Detail 05/15/25 11:09 Discharge Plan Discharge Anticipated Discharge Date/Time: 05/28/25 12:40 Patient Disposition: er [facility] Discharge Diagnosis: Osteomyelitis Diabetic foot ulcer MSSA bacteremia Acute hypoxic respiratory failure Referrals: Mac Clarke MD [Primary Care Provider, Internal Medicine] - 1 Week Discharge Medications: New spironolactone 25 mg Tablet 25 mg PO DAILY Qty: 30 0RF Protocol: Hold for SBP< HOLD for SBP < : 90 carvedilol 3.125 mg Tablet 3.125 mg PO BID Qty: 60 0RF Protocol: Hold for SBP/HR < HOLD for SBP < : 90 HOLD for HR < : 60 bumetanide 1 mg Tablet 1 mg PO DAILY Qty: 30 0RF Protocol: Hold for SBP< HOLD for SBP < : 90 cefazolin in dextrose (iso-os) 2 gram/50 mL Piggyback 50 ml IV Q8H Jardiance 10 mg Tablet 10 mg PO DAILY Qty: 30 0RF Entresto 49-51 mg Tablet 1 tab PO BID Qty: 30 0RF Protocol: Hold for SBP< HOLD for SBP < : 90 Continued (DME) Off loading shoe large See Rx Instructions .Route .MEDSUPPLY Qty: 1 0RF Rx Instructions: [place] [place] Xeroform Petrolatum Dressing 1 X 8 bandage See Rx Instructions .ROUTE .MEDSUPPLY Qty: 200 0RF Rx Instructions: apply to foot wound daily (DME) adhesive tape 2 X 10 -yard tape See Rx Instructions .ROUTE .MEDSUPPLY Qty: 1 3RF Rx Instructions: apply to foot wound daily (DME) prosthetic Kit See Rx Instructions .Route Qty: 1 0RF Rx Instructions: [place] [place] Bedside commode See Rx Instructions .Route .MEDSUPPLY Qty: 1 0RF Rx Instructions: As directed [place] [place] Shower Chair See Rx Instructions .Route .MEDSUPPLY Qty: 1 0RF Rx Instructions: As directed [place] [place] Walker See Rx Instructions .Route .MEDSUPPLY Qty: 1 0RF Rx Instructions: As directed amitriptyline 50 mg Tablet 50 mg PO BEDTIME methadone 10 mg/mL Concentrate 80 mg PO DAILY Rx Instructions: [facility] [place] [place] chair Kit See Rx Instructions .Route Qty: 1 0RF Rx Instructions: As directed insulin glargine [Lantus U-100 Insulin] 100 unit/mL solution 20 unit subcut DAILY (DME) FreeStyle Lite Strips Strip See Rx Instructions Not Applicable TID Qty: 10 Rx Instructions: As directed [place] [place] insulin syringe-needle U-100 [BD Insulin Syringe Ultra-Fine] 1 mL 31 gauge x 5/16 syringe See Rx Instructions .ROUTE DAILY Qty: 10 Rx Instructions: As directed [place] [place] Band-Aid Rolled Gauze 4 X 2.5 -yard bandage See Rx Instructions .ROUTE .MEDSUPPLY Qty: 30 3RF Rx Instructions: apply to foot wound daily (DME) Band-Aid Gauze Pads 3 X 3 bandage See Rx Instructions .ROUTE .MEDSUPPLY Qty: 25 3RF Rx Instructions: apply to foot wound daily Discontinued diltiazem HCl 180 mg capsule,extended release 24hr 180 mg PO DAILY Discharge Orders: Discharge Order (Routine); Ordered 05/28/25 Ordered By: Shivani Olvera Diet: Advance to usual diet Activity on Discharge: As tolerated Stand Alone Forms: Patient Portal Discharge page Print Language: Senegalese Activity Restrictions/Additional Instructions: Topical Wound Care Recommendations: Negative Pressure Wound Therapy (NPWT - Wound Vac) set at 125mmHg low and continuos, recommend changing on schedule of M, W, or T, , S. Care Plan Goals: Continue cefazolin for total of 6 weeks, end date 07/02/2025. RN may remove PICC line after last dose Health Concerns: Osteomyelitis Diabetic foot ulcer MSSA bacteremia Acute hypoxic respiratory failure Plan of Treatment: Follow up with primary care provider as needed Take all medications as prescribed Assessment: See discharge summary
[2025-05-28 15:35] VITALS: BP 135/74; PULSE 77; RESP 20; TEMP 36.1; O2SAT 95
[2025-05-28 15:54] LABS: Glucose, Whole Blood 128 mg/dL (60-115)
--- NOTE | 2025-05-28 16:05 | MHC.CM.PN ---
Pt. was cleared to go to [facility] for care for wounds there. We were not able to find transportation that would accept his insurance. Pt. will stay until we can work this out.
--- NOTE | 2025-05-28 16:48 | HO.PM.IMPN ---
Subjective Subjective Date of Service: 05/28/25 Interval History: discharge delayed by insurance/transporation issues, no new clinical issues Review of Systems Review of Systems: Yes all other systems are reviewed and are negative Physical Exam Vital Signs: Vital Signs: Last Vital Signs Temp 97.0 F 05/28/25 15:35 Pulse 77 05/28/25 15:35 Resp 20 05/28/25 15:35 BP 135/74 05/28/25 15:35 Pulse Ox 95 05/28/25 15:35 O2 Del Method Room Air 05/28/25 15:35 O2 Flow Rate 2 05/21/25 15:10 BMI result Body Mass Index 24.1 Gen: in no acute distress HEENT: sclera anicteric, moist mucus membranes Neck: supple Lungs: clear to auscultation bilaterally Heart: regular rate and rhythm, no murmurs Abd: soft, non-tender, non-distended Ext: no edema, s/p R BKA + L TMA, L plantar wound with Veraflo VAC in place Skin: warm/well-perfused Neuro: alert and oriented x3, no focal findings Psych: appropriate affect Objective Data Active Medications Acetaminophen (Acetaminophen 325 Mg Tablet) 650 mg PO Q6H PRN PRN Reason: Pain, Mild 1-3,fever,headache Last Admin: 05/23/25 07:19 Dose: 650 mg Documented By: MAXIMILIANO Amitriptyline HCl (Amitriptyline Hcl 50 Mg Tablet) 50 mg PO BEDTIME [facility] Last Admin: 05/27/25 19:27 Dose: 50 mg Documented By: HECTOR Bumetanide (Bumetanide 1 Mg Tablet) 1 mg PO DAILY [facility]; Protocol Last Admin: 05/28/25 08:20 Dose: 1 mg Documented By: VANE Calcium Carbonate (Calcium Carbonate 750 Mg Tab.Chew) 750 mg PO Q4H PRN PRN Reason: Heartburn Carvedilol (Carvedilol 3.125 Mg Tablet) 3.125 mg PO BID [facility]; Protocol Last Admin: 05/28/25 08:20 Dose: 3.125 mg Documented By: VANE Dextrose (Dextrose 50 % 25 Gm/50 Ml Syringe) 25 gm IVPUSH Q15M PRN; Protocol PRN Reason: per Hypoglycemia Standing Ord. Dextrose (Dextrose 50 % 25 Gm/50 Ml Syringe) 25 gm IVPUSH Q15M PRN; Protocol PRN Reason: per Hypoglycemia Standing Ord. Empagliflozin (Empagliflozin 10 Mg Tablet) 10 mg PO DAILY [facility] Last Admin: 05/28/25 08:20 Dose: 10 mg Documented By: VANE Enoxaparin Sodium (Enoxaparin Sodium 40 Mg/0.4 Ml Syringe) 40 mg SUBCUT BEDTIME [facility] Last Admin: 05/27/25 19:27 Dose: 40 mg Documented By: HECTOR Glucose (Glucose Gel 15 Gm Gel..Gram.) 15 gm PO Q15M PRN; Protocol PRN Reason: per Hypoglycemia Standing Ord. Cefazolin Sodium/Dextrose (Ancef) 2 gm in 50 mls @ 100 mls/hr IV Q8H [facility] Last Admin: 05/28/25 16:15 Dose: 100 mls/hr Documented By: VANE Insulin Glargine (Insulin Glargine,Hum.Rec.Anlog 100 Unit/Ml 10 Ml Vial) 20 unit SUBCUT DAILY [facility] Last Admin: 05/28/25 08:21 Dose: 20 unit Documented By: VANE Insulin Human Lispro (Insulin Lispro 100 Unit/Ml 3 Ml Vial) 0 unit SUBCUT QIDACHS [facility]; Protocol Last Admin: 05/28/25 15:57 Dose: Not Given Documented By: VANE Non-Admin Reason: No Insulin Coverage Magnesium Hydroxide (Milk Of Magnesia 30 Ml Oral.Susp) 30 ml PO DAILY PRN PRN Reason: Constipation Melatonin (Melatonin 3 Mg Tablet) 6 mg PO BEDTIME PRN PRN Reason: Insomnia Last Admin: 05/24/25 20:16 Dose: 6 mg Documented By: NARAYAN Methadone HCl (Methadone Hcl 20 Mg/2 Ml Oral.Conc) 80 mg PO DAILY [facility] Last Admin: 05/28/25 08:22 Dose: 80 mg Documented By: VANE Co-signed By: RENNY Naloxone HCl (Naloxone Hcl 0.4 Mg/Ml Vial) 0.04 mg IVPUSH Q5M PRN PRN Reason: Excessive sedation or RR < 8 Nystatin (Nystatin Powder 15 Gm Bottle) 1 appl TOPICAL BID [facility]; Protocol Last Admin: 05/28/25 09:00 Dose: Not Given Documented By: VANE Non-Admin Reason: Previously Administered Polyethylene Glycol (Polyethylene Glycol 3350 17 Gm Powd.Pack) 17 gm PO DAILY PRN PRN Reason: Constipation Sacubitril/Valsartan (Sacubitril/Valsartan 49/51 1 Tab Tablet) 1 tab PO BID [facility]; Protocol Last Admin: 05/28/25 08:20 Dose: 1 tab Documented By: VANE Sodium Chloride (0.9 % Sodium Chloride Flush 3 Ml Syringe) 3 ml IVFLUSH QSHIFT [facility] Last Admin: 05/28/25 16:15 Dose: 3 ml Documented By: VANE Spironolactone (Spironolactone 25 Mg Tablet) 25 mg PO DAILY [facility]; Protocol Last Admin: 05/28/25 08:20 Dose: 25 mg Documented By: VANE Labs 05/22/25 06:05 05/24/25 06:45 Labs: Laboratory Results - last 24 hr 05/27/25 05/28/25 05/28/25 20:29 07:30 11:34 POC Glucose 157 H 105 144 H 05/28/25 15:51 POC Glucose 128 H Assessment and Plan (1) Acute osteomyelitis of left foot: Status: Acute Plan d14 for 64yo M with HTN, HLD, DM, R BKA, L TMA with chronic plantar ulcer, AF not on AC presenting with L foot pain redness/swelling, admitted for osteomyelitis, found to have bacteremia MSSA + group G Streptococcus bacteremia/osteomyelitis of L TMA stump - repeat BCx negative, TTE negative for vegetation, plan 6 wk IV cefazolin per ID [end date 07/01/25] - Vasc Surg: no intervention - Gen Surg: pt declined BKA, planed limb salvage with IV ABX and debridement/VAC with Veraflo - PICC placed 05/25 nonblood loss anemia - H+H stable after 2u pRBCs transfused, goal Hct 30+ per Cardiology AHRF due to acute HFrEF HTN - TTE with LVEF 25-30%; continue Jardiance, spironolactone, Entresto, bumetanide, and carvedilol; d/c'ed diltiazem - dobutamine stress test with no ischemia DM2 - basal-bolus insulin OUD - methadone VTE ppx - enoxaparin dispo - plan [facility], insurance/transporation barrier In my clinical judgment, the patient requires continued inpatient hospitalization for the following reasons: placement Total time managing care of this patient today: 35 minutes. Quality Stroke Does the patient have a stroke diagnosis?: No VTE Prior VTE?: No VTE Risk Level:: Medical - moderate - high VTE Device Contraindication: Treatment Not Indicated VTE Drug Contraindication: N/A - Med Ordered
[2025-05-28 19:31] VITALS: BP 157/89; PULSE 74; RESP 18; TEMP 36; O2SAT 95
[2025-05-28 20:26] LABS: Glucose, Whole Blood 187 mg/dL (60-115)
[2025-05-28 23:30] VITALS: BP 108/67; PULSE 71; RESP 18; TEMP 36.4; O2SAT 98
[2025-05-29 03:24] VITALS: BP 134/69; PULSE 63; RESP 18; TEMP 36.4; O2SAT 98
[2025-05-29 07:33] LABS: Glucose, Whole Blood 121 mg/dL (60-115)
[2025-05-29 07:54] VITALS: BP 157/88; PULSE 81; RESP 20; TEMP 36.5; O2SAT 95
--- NOTE | 2025-05-29 08:15 | PM.PNGS ---
Subjective Subjective Date of Service: 05/29/25 Interval history: Patient with no complaints this morning. He is awaiting transfer to [facility] once transportation is arranged. Wound VAC is currently off with wet-to-dry dressing in place. Physical Exam Vital Signs: Vital Signs: Last Vital Signs Temp 97.7 F 05/29/25 07:54 Pulse 81 05/29/25 07:54 Resp 20 05/29/25 07:54 BP 157/88 H 05/29/25 07:54 Pulse Ox 95 05/29/25 07:54 O2 Del Method Room Air 05/29/25 07:54 O2 Flow Rate 2 05/21/25 15:10 BMI result Body Mass Index 24.1 Const: General: no acute distress Nutritional Appearance: well nourished Orientation/consciousness: patient oriented x3 Resp: Effort & Inspection: normal respiratory effort Neuro: General: patient oriented x3 Extrem: Other: Dressings clean and intact to both left fenton and foot. Objective Data Active Medications Acetaminophen (Acetaminophen 325 Mg Tablet) 650 mg PO Q6H PRN PRN Reason: Pain, Mild 1-3,fever,headache Last Admin: 05/23/25 07:19 Dose: 650 mg Documented By: MAXIMILIANO Amitriptyline HCl (Amitriptyline Hcl 50 Mg Tablet) 50 mg PO BEDTIME [facility] Last Admin: 05/28/25 19:59 Dose: 50 mg Documented By: HECTOR Bumetanide (Bumetanide 1 Mg Tablet) 1 mg PO DAILY [facility]; Protocol Last Admin: 05/28/25 08:20 Dose: 1 mg Documented By: DOBROB Calcium Carbonate (Calcium Carbonate 750 Mg Tab.Chew) 750 mg PO Q4H PRN PRN Reason: Heartburn Carvedilol (Carvedilol 3.125 Mg Tablet) 3.125 mg PO BID [facility]; Protocol Last Admin: 05/28/25 19:59 Dose: 3.125 mg Documented By: DESHAUN-KIERANSK Dextrose (Dextrose 50 % 25 Gm/50 Ml Syringe) 25 gm IVPUSH Q15M PRN; Protocol PRN Reason: per Hypoglycemia Standing Ord. Dextrose (Dextrose 50 % 25 Gm/50 Ml Syringe) 25 gm IVPUSH Q15M PRN; Protocol PRN Reason: per Hypoglycemia Standing Ord. Empagliflozin (Empagliflozin 10 Mg Tablet) 10 mg PO DAILY [facility] Last Admin: 05/28/25 08:20 Dose: 10 mg Documented By: VANE Enoxaparin Sodium (Enoxaparin Sodium 40 Mg/0.4 Ml Syringe) 40 mg SUBCUT BEDTIME [facility] Last Admin: 05/28/25 19:59 Dose: 40 mg Documented By: HECTOR Glucose (Glucose Gel 15 Gm Gel..Gram.) 15 gm PO Q15M PRN; Protocol PRN Reason: per Hypoglycemia Standing Ord. Cefazolin Sodium/Dextrose (Ancef) 2 gm in 50 mls @ 100 mls/hr IV Q8H [facility] Last Infusion: 05/29/25 01:10 Dose: Infused Documented By: HECTOR Insulin Glargine (Insulin Glargine,Hum.Rec.Anlog 100 Unit/Ml 10 Ml Vial) 20 unit SUBCUT DAILY [facility] Last Admin: 05/28/25 08:21 Dose: 20 unit Documented By: VANE Insulin Human Lispro (Insulin Lispro 100 Unit/Ml 3 Ml Vial) 0 unit SUBCUT QIDACHS [facility]; Protocol Last Admin: 05/29/25 07:37 Dose: Not Given Documented By: CLEMENTE Non-Admin Reason: No Insulin Coverage Magnesium Hydroxide (Milk Of Magnesia 30 Ml Oral.Susp) 30 ml PO DAILY PRN PRN Reason: Constipation Melatonin (Melatonin 3 Mg Tablet) 6 mg PO BEDTIME PRN PRN Reason: Insomnia Last Admin: 05/24/25 20:16 Dose: 6 mg Documented By: NARAYAN Methadone HCl (Methadone Hcl 20 Mg/2 Ml Oral.Conc) 80 mg PO DAILY [facility] Last Admin: 05/28/25 08:22 Dose: 80 mg Documented By: VANE Co-signed By: RENNY Naloxone HCl (Naloxone Hcl 0.4 Mg/Ml Vial) 0.04 mg IVPUSH Q5M PRN PRN Reason: Excessive sedation or RR < 8 Nystatin (Nystatin Powder 15 Gm Bottle) 1 appl TOPICAL BID [facility]; Protocol Last Admin: 05/28/25 20:03 Dose: Not Given Documented By: HECTOR Non-Admin Reason: Patient Refused Polyethylene Glycol (Polyethylene Glycol 3350 17 Gm Powd.Pack) 17 gm PO DAILY PRN PRN Reason: Constipation Sacubitril/Valsartan (Sacubitril/Valsartan 49/51 1 Tab Tablet) 1 tab PO BID [facility]; Protocol Last Admin: 05/28/25 19:59 Dose: 1 tab Documented By: HECTOR Sodium Chloride (0.9 % Sodium Chloride Flush 3 Ml Syringe) 3 ml IVFLUSH QSHIFT [facility] Last Admin: 05/28/25 20:00 Dose: 3 ml Documented By: DESHAUN-TAYLER Spironolactone (Spironolactone 25 Mg Tablet) 25 mg PO DAILY [facility]; Protocol Last Admin: 05/28/25 08:20 Dose: 25 mg Documented By: DOBROB Labs 05/22/25 06:05 05/24/25 06:45 Labs: Laboratory Results - last 24 hr 05/28/25 05/28/25 05/28/25 11:34 15:51 20:22 POC Glucose 144 H 128 H 187 H 05/29/25 07:29 POC Glucose 121 H Procedures Date of Service Date of Service: 05/29/25 Progress Note: A&P Assessment and plan (1) Diabetic infection of left foot: Status: Acute (2) Acute osteomyelitis of left foot: Status: Acute Plan Patient doing well and showing good results with wound VAC. He will continue with wound VAC and IV antibiotics at [facility]. Follow-up in office in 1 month or once patient discharge from facility. Alternatively patient can follow-up with wound care center. Time Spent With Patient Time: Total time managing care of this patient today ____ minutes. Quality Stroke Does the patient have a stroke diagnosis?: No VTE Prior VTE?: No VTE Risk Level:: Medical - moderate - high VTE Device Contraindication: Treatment Not Indicated VTE Drug Contraindication: N/A - Med Ordered
--- NOTE | 2025-05-29 08:15 | MHC.CM.PN ---
Addendum entered by Liz Nance 05/29/25 08:42: This CM was informed by Merlyn at [facility] that the pts bed was given to someone else, and another one won't be available until Thursday 05/31. BLS cancelled, informed. Original Note: Pt is medically cleared for discharge to [facility] today, he will transport via BLS/[facility] today.
[2025-05-29] MEDS: Insulin Glargine,Hum.rec.anlog 100 UNIT/ML 10 ML VIAL 20 UNIT SUBCUT (08:43)
[2025-05-29] MEDS: Sacubitril/Valsartan 49/51 1 TAB TABLET PO ×2 (08:45→20:53)
[2025-05-29] MEDS: methADONE HCl 20 MG/2 ML ORAL.CONC 80 MG PO (08:46)
[2025-05-29] MEDS: 0.9 % Sodium Chloride Flush 3 ML SYRINGE IVFLUSH ×3 (08:54→20:54)
--- NOTE | 2025-05-29 09:43 | P.PNIM_ITS ---
Subjective Subjective Date of Service: 05/29/25 Interval History: transportation/insurance issues worked out but then his rehab bed was given to another pt no new clinical issues Review of Systems Review of Systems: Yes all other systems are reviewed and are negative Physical Exam 2 Vital Signs: Vital Signs: Last Vital Signs Temp 97.7 F 05/29/25 07:54 Pulse 81 05/29/25 07:54 Resp 20 05/29/25 07:54 BP 157/88 H 05/29/25 07:54 Pulse Ox 95 05/29/25 07:54 O2 Del Method Room Air 05/29/25 07:54 O2 Flow Rate 2 05/21/25 15:10 BMI result Body Mass Index 24.1 Gen: in no acute distress HEENT: sclera anicteric, moist mucus membranes Neck: supple Lungs: clear to auscultation bilaterally Heart: regular rate and rhythm, no murmurs Abd: soft, non-tender, non-distended Ext: no edema, s/p R BKA + L TMA, L plantar wound dry dressing Skin: warm/well-perfused Neuro: alert and oriented x3, no focal findings Psych: appropriate affect Objective Data Active Medications Acetaminophen (Acetaminophen 325 Mg Tablet) 650 mg PO Q6H PRN PRN Reason: Pain, Mild 1-3,fever,headache Last Admin: 05/23/25 07:19 Dose: 650 mg Documented By: MAXIMILIANO Amitriptyline HCl (Amitriptyline Hcl 50 Mg Tablet) 50 mg PO BEDTIME [facility] Last Admin: 05/28/25 19:59 Dose: 50 mg Documented By: HECTOR Bumetanide (Bumetanide 1 Mg Tablet) 1 mg PO DAILY [facility]; Protocol Last Admin: 05/29/25 08:45 Dose: 1 mg Documented By: CLEMENTE Calcium Carbonate (Calcium Carbonate 750 Mg Tab.Chew) 750 mg PO Q4H PRN PRN Reason: Heartburn Carvedilol (Carvedilol 3.125 Mg Tablet) 3.125 mg PO BID [facility]; Protocol Last Admin: 05/29/25 08:45 Dose: 3.125 mg Documented By: CLEMENTE Dextrose (Dextrose 50 % 25 Gm/50 Ml Syringe) 25 gm IVPUSH Q15M PRN; Protocol PRN Reason: per Hypoglycemia Standing Ord. Dextrose (Dextrose 50 % 25 Gm/50 Ml Syringe) 25 gm IVPUSH Q15M PRN; Protocol PRN Reason: per Hypoglycemia Standing Ord. Empagliflozin (Empagliflozin 10 Mg Tablet) 10 mg PO DAILY [facility] Last Admin: 05/29/25 08:45 Dose: 10 mg Documented By: CLEMENTE Enoxaparin Sodium (Enoxaparin Sodium 40 Mg/0.4 Ml Syringe) 40 mg SUBCUT BEDTIME [facility] Last Admin: 05/28/25 19:59 Dose: 40 mg Documented By: HECTOR Glucose (Glucose Gel 15 Gm Gel..Gram.) 15 gm PO Q15M PRN; Protocol PRN Reason: per Hypoglycemia Standing Ord. Cefazolin Sodium/Dextrose (Ancef) 2 gm in 50 mls @ 100 mls/hr IV Q8H [facility] Last Infusion: 05/29/25 09:39 Dose: Infused Documented By: CLEMENTE Insulin Glargine (Insulin Glargine,Hum.Rec.Anlog 100 Unit/Ml 10 Ml Vial) 20 unit SUBCUT DAILY [facility] Last Admin: 05/29/25 08:43 Dose: 20 unit Documented By: CLEMENTE Insulin Human Lispro (Insulin Lispro 100 Unit/Ml 3 Ml Vial) 0 unit SUBCUT QIDACHS [facility]; Protocol Last Admin: 05/29/25 07:37 Dose: Not Given Documented By: CLEMENTE Non-Admin Reason: No Insulin Coverage Magnesium Hydroxide (Milk Of Magnesia 30 Ml Oral.Susp) 30 ml PO DAILY PRN PRN Reason: Constipation Melatonin (Melatonin 3 Mg Tablet) 6 mg PO BEDTIME PRN PRN Reason: Insomnia Last Admin: 05/24/25 20:16 Dose: 6 mg Documented By: NARAYAN Methadone HCl (Methadone Hcl 20 Mg/2 Ml Oral.Conc) 80 mg PO DAILY [facility] Last Admin: 05/29/25 08:46 Dose: 80 mg Documented By: CLEMENTE Co-signed By: VANE Naloxone HCl (Naloxone Hcl 0.4 Mg/Ml Vial) 0.04 mg IVPUSH Q5M PRN PRN Reason: Excessive sedation or RR < 8 Nystatin (Nystatin Powder 15 Gm Bottle) 1 appl TOPICAL BID [facility]; Protocol Last Admin: 05/29/25 09:39 Dose: Not Given Documented By: CLEMENTE Non-Admin Reason: Patient Refused Polyethylene Glycol (Polyethylene Glycol 3350 17 Gm Powd.Pack) 17 gm PO DAILY PRN PRN Reason: Constipation Sacubitril/Valsartan (Sacubitril/Valsartan 49/51 1 Tab Tablet) 1 tab PO BID [facility]; Protocol Last Admin: 05/29/25 08:45 Dose: 1 tab Documented By: CLEMENTE Sodium Chloride (0.9 % Sodium Chloride Flush 3 Ml Syringe) 3 ml IVFLUSH QSHIFT [facility] Last Admin: 05/29/25 08:54 Dose: 3 ml Documented By: CLEMENTE Spironolactone (Spironolactone 25 Mg Tablet) 25 mg PO DAILY [facility]; Protocol Last Admin: 05/29/25 08:45 Dose: 25 mg Documented By: CLEMENTE Labs 05/22/25 06:05 05/24/25 06:45 Labs: Laboratory Results - last 24 hr 05/28/25 05/28/25 05/28/25 11:34 15:51 20:22 POC Glucose 144 H 128 H 187 H 05/29/25 07:29 POC Glucose 121 H Assessment and Plan (1) Acute osteomyelitis of left foot: Status: Acute Plan d54 for 64yo M with HTN, HLD, DM, R BKA, L TMA with chronic plantar ulcer, AF not on AC presenting with L foot pain redness/swelling, admitted for osteomyelitis, found to have bacteremia MSSA + group G Streptococcus bacteremia/osteomyelitis of L TMA stump - repeat BCx negative, TTE negative for vegetation, plan 6 wk IV cefazolin per ID [end date 07/01/25] - Vasc Surg: no intervention - Gen Surg: pt declined BKA, purusing limb salvage with IV ABX and debridement/VAC with Veraflo. Veraflo removed yesterday and current with wet- dry dressing. To place VAC upon arrival at [facility] - PICC placed 05/25 nonblood loss anemia - H+H stable after 2u pRBCs transfused, goal Hct 30+ per Cardiology AHRF due to acute HFrEF HTN - TTE with LVEF 25-30%; continue Jardiance, spironolactone, Entresto, bumetanide, and carvedilol; d/c'ed diltiazem - dobutamine stress test with no ischemia DM2 - basal-bolus insulin OUD - methadone VTE ppx - enoxaparin dispo - plan [facility], awaitin bed In my clinical judgment, the patient requires continued inpatient hospitalization for the following reasons: placement Total time managing care of this patient today: 35 minutes. Quality Stroke Does the patient have a stroke diagnosis?: No VTE Prior VTE?: No VTE Risk Level:: Medical - moderate - high VTE Device Contraindication: Treatment Not Indicated VTE Drug Contraindication: N/A - Med Ordered
[2025-05-29 11:12] LABS: Glucose, Whole Blood 181 mg/dL (60-115)
--- NOTE | 2025-05-29 15:16 | P.CDIM_ITS ---
PROVIDER RESPONSE TEXT: To clarify, the appropriate diagnosis supported by the clinical indicators: Localized infection only, without systemic illness: skin QUERY TEXT: PHYSICIAN'S DOCUMENTATION REQUEST Date of Query: 05/17/2025 01:41 PM EDT Patient Name: Pasquale Zapata Admit Date: 05/15/2025 Dear Lexus Patel PORTAL ARCHITECT, A review of the medical record indicates additional documentation may be needed. Please review below and update the documentation accordingly. Clinical Indicators: WBC 15.7 temperature 101 pulse 109 respiratory rate 24 Acute osteomyelitis left foot, cellulitis left lower limb IV Piperacillin Sod/Tazobactam Sod, IV Vancomycin per ID consult Sepsis Please clarify which, if any, of the following is the most likely etiology of the above symptoms and treatment rendered: Sepsis Severe Sepsis Septic Shock Localized infection only, without systemic illness Indicate the site/source, such as UTI, pneumonia, etc. Other (explain) Clinically unable to determine (explain) Thank you, Yusra Mehta RN Use of terms such as suspected, likely, concern for, or probable (associated with a specific diagnosis that is being evaluated, monitored, or treated as if it exists) are acceptable and can be coded in the inpatient setting, when documented at the time of discharge. Please use your independent medical judgment in providing your response. THIS QUERY IS PART OF THE PERMANENT MEDICAL RECORD
--- NOTE | 2025-05-29 15:16 | P.CDIM_ITS ---
PROVIDER RESPONSE TEXT: To clarify, the appropriate diagnosis supported by the clinical indicators: bone involvement without evidence of necrosis QUERY TEXT: PHYSICIAN'S DOCUMENTATION REQUEST Date of Query: 05/17/2025 01:45 PM EDT Patient Name: Pasquale Zapata Admit Date: 05/15/2025 Dear Lexus Patel RETAIL MERCHANDISING MANAGER, A review of the medical record indicates additional documentation may be needed. Please review below and update the documentation accordingly. Clinical Indicators: left foot diabetic ulcer with acute osteomyelitis and left leg cellulitis wound consult pending IV Vancomycin, IV Zosyn Based on the above, could you please provide the depth of the ulcer/wound: skin breakdown only subcutaneous fat muscle involvement without evidence of necrosis muscle necrosis bone involvement without evidence of necrosis bone necrosis Other (explain) Clinically unable to determine (explain) Thank you, Yusra Mehta RN Use of terms such as suspected, likely, concern for, or probable (associated with a specific diagnosis that is being evaluated, monitored, or treated as if it exists) are acceptable and can be coded in the inpatient setting, when documented at the time of discharge. Please use your independent medical judgment in providing your response. THIS QUERY IS PART OF THE PERMANENT MEDICAL RECORD
[2025-05-29 15:23] VITALS: BP 129/66; PULSE 63; RESP 16; TEMP 36.1; O2SAT 97
[2025-05-29 16:04] LABS: Glucose, Whole Blood 92 mg/dL (60-115)
[2025-05-29 19:25] VITALS: BP 127/58; PULSE 62; RESP 18; TEMP 36; O2SAT 94
[2025-05-29 19:44] LABS: Glucose, Whole Blood 156 mg/dL (60-115)
[2025-05-29 23:23] VITALS: BP 142/68; PULSE 62; RESP 17; TEMP 36.7; O2SAT 96
[2025-05-30] VITALS (7 sets, daily range): BP systolic 120–133; BP diastolic 71–77; PULSE 62–90; RESP 16–18; TEMP 36–36.9; O2SAT 96–97
[2025-05-30 07:48] LABS: Glucose, Whole Blood 83 mg/dL (60-115)
[2025-05-30] MEDS: Sacubitril/Valsartan 49/51 1 TAB TABLET PO ×2 (08:37→21:21)
[2025-05-30] MEDS: Insulin Glargine,Hum.rec.anlog 100 UNIT/ML 10 ML VIAL 20 UNIT SUBCUT (08:39)
[2025-05-30] MEDS: methADONE HCl 20 MG/2 ML ORAL.CONC 80 MG PO (08:39)
[2025-05-30] MEDS: 0.9 % Sodium Chloride Flush 3 ML SYRINGE IVFLUSH ×3 (08:40→21:22)
--- NOTE | 2025-05-30 09:23 | HO.PM.IMPN ---
Subjective Subjective Date of Service: 05/30/25 Interval History: no new complaints, just awaiting bed at [facility] Review of Systems Review of Systems: Yes all other systems are reviewed and are negative Physical Exam Vital Signs: Vital Signs: Last Vital Signs Temp 98.5 F 05/30/25 07:31 Pulse 65 05/30/25 07:31 Resp 16 05/30/25 07:31 BP 133/72 05/30/25 07:31 Pulse Ox 97 05/30/25 07:31 O2 Del Method Room Air 05/30/25 07:31 O2 Flow Rate 2 05/21/25 15:10 BMI result Body Mass Index 24.1 Gen: in no acute distress HEENT: sclera anicteric, moist mucus membranes Neck: supple Lungs: clear to auscultation bilaterally Heart: regular rate and rhythm, no murmurs Abd: soft, non-tender, non-distended Ext: no edema, s/p R BKA + L TMA, L plantar wound dry dressing Skin: warm/well-perfused Neuro: alert and oriented x3, no focal findings Psych: appropriate affect Objective Data Active Medications Acetaminophen (Acetaminophen 325 Mg Tablet) 650 mg PO Q6H PRN PRN Reason: Pain, Mild 1-3,fever,headache Last Admin: 05/23/25 07:19 Dose: 650 mg Documented By: MAXIMILIANO Amitriptyline HCl (Amitriptyline Hcl 50 Mg Tablet) 50 mg PO BEDTIME [facility] Last Admin: 05/29/25 20:53 Dose: 50 mg Documented By: PATRICK Bumetanide (Bumetanide 1 Mg Tablet) 1 mg PO DAILY [facility]; Protocol Last Admin: 05/30/25 08:37 Dose: 1 mg Documented By: OJHN Calcium Carbonate (Calcium Carbonate 750 Mg Tab.Chew) 750 mg PO Q4H PRN PRN Reason: Heartburn Carvedilol (Carvedilol 3.125 Mg Tablet) 3.125 mg PO BID [facility]; Protocol Last Admin: 05/30/25 08:38 Dose: 3.125 mg Documented By: JOHN Dextrose (Dextrose 50 % 25 Gm/50 Ml Syringe) 25 gm IVPUSH Q15M PRN; Protocol PRN Reason: per Hypoglycemia Standing Ord. Dextrose (Dextrose 50 % 25 Gm/50 Ml Syringe) 25 gm IVPUSH Q15M PRN; Protocol PRN Reason: per Hypoglycemia Standing Ord. Empagliflozin (Empagliflozin 10 Mg Tablet) 10 mg PO DAILY [facility] Last Admin: 05/30/25 08:37 Dose: 10 mg Documented By: JOHN Enoxaparin Sodium (Enoxaparin Sodium 40 Mg/0.4 Ml Syringe) 40 mg SUBCUT BEDTIME [facility] Last Admin: 05/29/25 20:53 Dose: 40 mg Documented By: PATRICK Glucose (Glucose Gel 15 Gm Gel..Gram.) 15 gm PO Q15M PRN; Protocol PRN Reason: per Hypoglycemia Standing Ord. Cefazolin Sodium/Dextrose (Ancef) 2 gm in 50 mls @ 100 mls/hr IV Q8H [facility] Last Admin: 05/30/25 08:41 Dose: 100 mls/hr Documented By: JOHN Insulin Glargine (Insulin Glargine,Hum.Rec.Anlog 100 Unit/Ml 10 Ml Vial) 20 unit SUBCUT DAILY [facility] Last Admin: 05/30/25 08:39 Dose: 20 unit Documented By: JOHN Insulin Human Lispro (Insulin Lispro 100 Unit/Ml 3 Ml Vial) 0 unit SUBCUT QIDACHS [facility]; Protocol Last Admin: 05/30/25 07:36 Dose: Not Given Documented By: CHERYL Non-Admin Reason: No Insulin Coverage Magnesium Hydroxide (Milk Of Magnesia 30 Ml Oral.Susp) 30 ml PO DAILY PRN PRN Reason: Constipation Melatonin (Melatonin 3 Mg Tablet) 6 mg PO BEDTIME PRN PRN Reason: Insomnia Last Admin: 05/24/25 20:16 Dose: 6 mg Documented By: NARAYAN Methadone HCl (Methadone Hcl 20 Mg/2 Ml Oral.Conc) 80 mg PO DAILY [facility] Last Admin: 05/30/25 08:39 Dose: 80 mg Documented By: JOHN Co-signed By: CHERYL Naloxone HCl (Naloxone Hcl 0.4 Mg/Ml Vial) 0.04 mg IVPUSH Q5M PRN PRN Reason: Excessive sedation or RR < 8 Nystatin (Nystatin Powder 15 Gm Bottle) 1 appl TOPICAL BID [facility]; Protocol Last Admin: 05/30/25 08:36 Dose: 1 appl Documented By: JOHN Polyethylene Glycol (Polyethylene Glycol 3350 17 Gm Powd.Pack) 17 gm PO DAILY PRN PRN Reason: Constipation Sacubitril/Valsartan (Sacubitril/Valsartan 49/51 1 Tab Tablet) 1 tab PO BID [facility]; Protocol Last Admin: 05/30/25 08:37 Dose: 1 tab Documented By: JOHN Sodium Chloride (0.9 % Sodium Chloride Flush 3 Ml Syringe) 3 ml IVFLUSH QSHIFT [facility] Last Admin: 05/30/25 08:40 Dose: 3 ml Documented By: JOHN Spironolactone (Spironolactone 25 Mg Tablet) 25 mg PO DAILY [facility]; Protocol Last Admin: 05/30/25 08:37 Dose: 25 mg Documented By: JOHN Labs 05/22/25 06:05 05/24/25 06:45 Labs: Laboratory Results - last 24 hr 05/29/25 05/29/25 05/29/25 11:00 15:57 19:29 POC Glucose 181 H 92 156 H 05/30/25 07:35 POC Glucose 83 Assessment and Plan (1) Acute osteomyelitis of left foot: Status: Acute Plan d16 for 64yo M with HTN, HLD, DM, R BKA, L TMA with chronic plantar ulcer, AF not on AC presenting with L foot pain redness/swelling, admitted for osteomyelitis, found to have bacteremia MSSA + group G Streptococcus bacteremia/osteomyelitis of L TMA stump - repeat BCx negative, TTE negative for vegetation, plan 6 wk IV cefazolin per ID [end date 07/01/25] - Vasc Surg: no intervention - Gen Surg: pt declined BKA, purusing limb salvage with IV ABX and debridement/VAC with Veraflo. Veraflo removed 05/28 and currently has wet-dry dressing per Gen SUrg. To place new VAC upon arrival at [facility]. - PICC placed 05/25 nonblood loss anemia - H+H stable after 2u pRBCs transfused, goal Hct 30+ per Cardiology AHRF due to acute HFrEF HTN - TTE with LVEF 25-30%; continue Jardiance, spironolactone, Entresto, bumetanide, and carvedilol; d/c'ed diltiazem - dobutamine stress test with no ischemia DM2 - basal-bolus insulin OUD - methadone VTE ppx - enoxaparin dispo - plan LTACH, awaiting bed In my clinical judgment, the patient requires continued inpatient hospitalization for the following reasons: placement Total time managing care of this patient today: 30 minutes. Quality Stroke Does the patient have a stroke diagnosis?: No VTE Prior VTE?: No VTE Risk Level:: Medical - moderate - high VTE Device Contraindication: Treatment Not Indicated VTE Drug Contraindication: N/A - Med Ordered
[2025-05-30 11:33] LABS: Glucose, Whole Blood 127 mg/dL (60-115)
[2025-05-30 16:37] LABS: Glucose, Whole Blood 140 mg/dL (60-115)
[2025-05-30 20:27] LABS: Glucose, Whole Blood 211 mg/dL (60-115)
[2025-05-31] VITALS: BP 131/63; PULSE 69; RESP 18; TEMP 36.4; O2SAT 96
[2025-05-31 03:55] VITALS: BP 150/67; PULSE 67; RESP 20; TEMP 36.4; O2SAT 99
[2025-05-31 06:56] VITALS: BP 152/80; PULSE 68; RESP 16; TEMP 36.6; O2SAT 98
[2025-05-31 07:07] LABS: Glucose, Whole Blood 174 mg/dL (60-115)
[2025-05-31] MEDS: methADONE HCl 20 MG/2 ML ORAL.CONC 80 MG PO (07:48)
[2025-05-31] MEDS: Sacubitril/Valsartan 49/51 1 TAB TABLET PO (07:50)
[2025-05-31] MEDS: 0.9 % Sodium Chloride Flush 3 ML SYRINGE IVFLUSH (07:55)
[2025-05-31] MEDS: Insulin Glargine,Hum.rec.anlog 100 UNIT/ML 10 ML VIAL 20 UNIT SUBCUT (09:16)
--- NOTE | 2025-05-31 10:33 | MHC.CM.PN ---
pt to be dcd today at 3:30 to [facility] /pts hcp notified of dc
[2025-05-31 11:08] LABS: Glucose, Whole Blood 203 mg/dL (60-115)
[2025-05-31 11:39] VITALS: BP 121/68; PULSE 65; RESP 17; TEMP 36.4; O2SAT 99
--- NOTE | 2025-05-31 13:27 | P.DS_ITS ---
DS: Providers Provider Date of Service: 05/31/25 Date of admission: 05/15/25 00:22 Date of discharge: 05/31/25 Primary care physician: Mac Clarke MD Consults: 05/15/25 00:21 Consult to Infectious Diseases Routine Consulting Provider: [facility] [place] [facility] Reason for consultation: DM foot infection Consult to Vascular Surgery Routine Consulting Provider: [facility] [place] V[facility] Services Reason for consultation: DM foot infection 05/15/25 06:30 Consult to Cardiology Routine Consulting Provider: [facility] [place] [facility] Reason for consultation: new chf 05/15/25 10:14 Consult to Wound Care Routine Reason for consultation: Lt foot wound 05/16/25 07:38 Consult to General Surgery Routine Consulting Provider: [facility] [place] General Surgeons Reason for consultation: possible debridement 05/21/25 10:15 Consult to Wound Care Routine Reason for consultation: right posterior thigh and rash to abdominal folds/groin 05/30/25 21:53 Consult to Wound Care Routine Reason for consultation: DM ulcer to L plantar DS: Diagnosis Discharge Diagnosis (1) Acute osteomyelitis of left foot: Status: Acute DS: Summary Hospital Course Hospital Course: History and physical as per admitting provider Sandra Hines, 05/15/25: 64-year-old male with a past medical history of HTN, HLD, dm, right BKA, chronic diabetic left foot ulcer, history of left TMA, AFib-not on anticoagulation presented to the hospital today with a chief complaint of left foot pain redness and swelling. Patient mentioned for the past 3 days he has been having increased pain redness and swelling over the left leg and left foot ulcer. Denies any discharge. Reports subjective fevers. Patient denies any chest pain or palpitations. Denies any cough or sputum production. Denies any shortness of breath or dyspnea on exertion. Denies any urinary symptoms. Review of all other systems is negative except mentioned above ER course: Per ER team, patient noted to have chronic left foot wound with surrounding erythema extending onto the proximal 3rd of the leg and smaller so some noted on the distal part of the leg; ulcer extending up to the bones; concerning for acute osteomyelitis. X- rays consistent with 4th metatarsal stump osteomyelitis. While in the ER patient became acutely hypoxic requiring Oxymizer and subsequently transitioned down to nasal cannula at 5 L; patient denied any cough or sputum production. Chest x- ray showed bilateral opacities. CT chest showed no evidence of PE but noted to have findings consistent with pulmonary edema and small pleural effusion. 64yo M with HTN, HLD, DM, R BKA, L TMA with chronic plantar ulcer, AF not on AC presenting with L foot pain redness/swelling, admitted for osteomyelitis, found to have bacteremia with MSSA and group G Streptococcus. Hospital course by problem: MSSA + group G Streptococcus bacteremia/osteomyelitis of L TMA stump - repeat BCx negative, TTE negative for vegetation, PICC placed 05/25/25, plan 6 wk IV cefazolin per ID [end date 07/02/25 after which PICC may be removed] - Vasc Surg: no intervention - Gen Surg: pt declined BKA, planed limb salvage with IV ABX and debridement/VAC with Veraflo; changed to wet-dry dressings upon discharge and VAC to be replaced at [facility] in 2d. AHRF due to acute HFrEF HTN - TTE with LVEF 25-30%; continue Jardiance, spironolactone, Entresto, bumetanide, and carvedilol; d/c'ed diltiazem - dobutamine stress test with no ischemia nonblood loss anemia - H+H stable after 2u pRBCs transfused, goal Hct 30+ per Cardiology consultation He was discharged to [facility]. Time Attestation Discharge Coordination Time (in mins): 35 Quality: Safe Use of Opioids Does Pt have an Active Cancer Diagnosis on the Problem List?: No Quality: Stroke Does the patient have a stroke diagnosis?: No Physical Exam Vital Signs: Vital Signs: Last Vital Signs Temp 97.6 F 05/31/25 11:39 Pulse 65 05/31/25 11:39 Resp 17 05/31/25 11:39 BP 121/68 05/31/25 11:39 Pulse Ox 99 05/31/25 11:39 O2 Del Method Room Air 05/31/25 11:39 O2 Flow Rate 2 05/21/25 15:10 BMI result Body Mass Index 24.1 Const: Other: Awake alert no acute distress Resp: Other: Clear to auscultation bilaterally no rales rhonchi or wheezes Cardio: Other: No S4; positive S1-S2; no S3 murmurs rubs or gallops GI: Other: Soft nontender nondistended normoactive bowel sounds Extrem: Other: Right BKA (old) left foot stump dressing as above DS: Data Data Completed and Pending Completed studies during hospitalization [Text1]: Pending at discharge 05/21/25 14:12 Surgical [PTH] Routine Procedures Detachment at Left 5th Toe, Complete, Open Approach (08/02/24) Detachment at Right Lower Leg, High, Open Approach (03/03/23) Excision of Left Foot Subcutaneous Tissue and Fascia, Open Approach (08/02/24) Excision of Left Lower Leg Skin, External Approach (10/29/24) Insertion of Infusion Device into Superior Vena Cava, Percutaneous Approach (06/21/24) Introduction of Anesthetic Agent into Peripheral Nerves and Plexi, Percutaneous Approach (08/02/24) Ultrasonography of Superior Vena Cava, Guidance (06/21/24) Labs on day of discharge: Laboratory Results - last 24 hr 05/30/25 05/30/25 05/31/25 16:33 20:19 07:03 POC Glucose 140 H 211 H 174 H 05/31/25 11:03 POC Glucose 203 H Discharge Plan Discharge Anticipated Discharge Date/Time: 05/28/25 12:40 Patient Disposition: Xfer SNF Discharge Diagnosis: Osteomyelitis Diabetic foot ulcer MSSA bacteremia Acute hypoxic respiratory failure Referrals: Mac Clarke MD [Primary Care Provider, Internal Medicine] - 1 Week Discharge Medications: New spironolactone 25 mg Tablet 25 mg PO DAILY Qty: 30 0RF Protocol: Hold for SBP< HOLD for SBP < : 90 carvedilol 3.125 mg Tablet 3.125 mg PO BID Qty: 60 0RF Protocol: Hold for SBP/HR < HOLD for SBP < : 90 HOLD for HR < : 60 bumetanide 1 mg Tablet 1 mg PO DAILY Qty: 30 0RF Protocol: Hold for SBP< HOLD for SBP < : 90 cefazolin in dextrose (iso-os) 2 gram/50 mL Piggyback 50 ml IV Q8H Jardiance 10 mg Tablet 10 mg PO DAILY Qty: 30 0RF Entresto 49-51 mg Tablet 1 tab PO BID Qty: 30 0RF Protocol: Hold for SBP< HOLD for SBP < : 90 Continued (DME) Off loading shoe large See Rx Instructions .Route .MEDSUPPLY Qty: 1 0RF Rx Instructions: As directed (DME) Xeroform Petrolatum Dressing 1 X 8 bandage See Rx Instructions .ROUTE .MEDSUPPLY Qty: 200 0RF Rx Instructions: apply to foot wound daily (DME) adhesive tape 2 X 10 -yard tape See Rx Instructions .ROUTE .MEDSUPPLY Qty: 1 3RF Rx Instructions: apply to foot wound daily (DME) prosthetic Kit See Rx Instructions .Route Qty: 1 0RF Rx Instructions: As directed (DME) Bedside commode See Rx Instructions .Route .MEDSUPPLY Qty: 1 0RF Rx Instructions: As directed (DME) Shower Chair See Rx Instructions .Route .MEDSUPPLY Qty: 1 0RF Rx Instructions: As directed (DME) Walker See Rx Instructions .Route .MEDSUPPLY Qty: 1 0RF Rx Instructions: As directed amitriptyline 50 mg Tablet 50 mg PO BEDTIME methadone 10 mg/mL Concentrate 80 mg PO DAILY Rx Instructions: [facility] [place]) Wheel chair Kit See Rx Instructions .Route Qty: 1 0RF Rx Instructions: As directed insulin glargine [Lantus U-100 Insulin] 100 unit/mL solution 20 unit subcut DAILY (DME) FreeStyle Lite Strips Strip See Rx Instructions Not Applicable TID Qty: 10 Rx Instructions: As directed (DME) insulin syringe-needle U-100 [BD Insulin Syringe Ultra-Fine] 1 mL 31 gauge x 5/16 syringe See Rx Instructions .ROUTE DAILY Qty: 10 Rx Instructions: As directed (DME) Band-Aid Rolled Gauze 4 X 2.5 -yard bandage See Rx Instructions .ROUTE .MEDSUPPLY Qty: 30 3RF Rx Instructions: apply to foot wound daily (DME) Band-Aid Gauze Pads 3 X 3 bandage See Rx Instructions .ROUTE .MEDSUPPLY Qty: 25 3RF Rx Instructions: apply to foot wound daily Discontinued diltiazem HCl 180 mg capsule,extended release 24hr 180 mg PO DAILY Discharge Orders: Discharge Order (Routine); Ordered 05/31/25 Ordered By: Richar Chávez Diet: Advance to usual diet Activity on Discharge: As tolerated Stand Alone Forms: Patient Portal Discharge page Print Language: Cambodian Activity Restrictions/Additional Instructions: Topical Wound Care Recommendations: Negative Pressure Wound Therapy (NPWT - Wound Vac) set at 125mmHg low and continuos, recommend changing on schedule of M, W, F or T, TH, S. Care Plan Goals: Continue cefazolin for total of 6 weeks, end date 07/02/2025. RN may remove PICC line after last dose Health Concerns: Osteomyelitis Diabetic foot ulcer MSSA bacteremia Acute hypoxic respiratory failure Plan of Treatment: Follow up with primary care provider as needed Take all medications as prescribed Assessment: See discharge summary
--- NOTE | 2025-05-31 14:20 | HO.WOUND ---
Wound Consult: Follow up 64yr old?Male admitted to [facility] on 05/15/25 - See progress notes and H&P for detailed history.? Wound consult follow up for Left plantar.?? Patient is well known to this designer writer from prior admissions. Patient was to be discharged on Saturday to facility however due to bed availability and transport he has remained inpatient at [facility]. He has had wet to dry dressing applied since removal of the vac on Saturday. Todays assessment reveals a similar wound bed marbled with adherent slough and and pink red moist tissue. The wound bed appears to improve with use of Negative Pressure Wound Therapy - continue to recommend Wound Vac application at [facility], not to be applied today since discharge is set for 3:30pm today. Changed to wet to dry dressing at this time. 05/31/25 05/25/25 on admission Left Lateral Plantar Foot Etiology: ?Diabetic wound Wound Bed: pale slough with pale pink moist tissue noted - no bone palpated at this time. Drainage / Odor: clif[place] yellow drainage noted no odor noted Edges: epibole Shara wound: dry thick callused areas ? Pain: denies Goals of Treatment: Wet to dry dressing and Wound vac application as soon as possible. Left Leg Etiology: Improving Venous vs Diabetic wounds Wound Bed: pink moist wound bed partial thickness tissue loss Goals of Treatment: Moisture management with Durafiber AG Right Posterior thigh - MASD - with friction - appears to be improving - recommend Triad application - patient was also noted to have fungal dermatitis - provider to order antifungal powder for treatment. apply twice daily. Recommendations: 1. Turn and Reposition every 2 hours and as needed for patient comfort.? Use pillows or wedges to support off loading positions. 2. Off Load all bony prominences with use of pillows and heel boots if needed.? Apply Preventative foams where needed. ? 3. Monitor for incontinence and moisture control, use barrier creams when needed for prevention and treatment. 4. Provide adequate and supplemental nutrition.? 5. Continue low air loss mattress. 6. Maintain blood glucose levels per Providers order. Left Lower Leg - Elevate lower leg - Off Load Pressure and limit ambulating on foot. Cleanse with saline, pat dry. ?Apply barrier cream to wound bed. Cover wound bed with Durafiber AG, Cover with Dry gauze, ABD pad and wrap. Change every other day. Right Posterior leg - Off Load Pressure with Q2 hr turns and use of pillows - Cleanse with PH balance spray or wipes, pat dry. ?Apply thin layer of Triad to wound bed - only pat and dab no scrub and rub when soiling occurs. Reapply thin layer PRN after each episode of incontinence. Left Plantar - Elevate lower leg - Off Load Pressure and limit ambulating on foot. Cleanse with saline, pat dry. ?Apply barrier cream to wound bed. Cover wound bed with saline moist guaze, Cover with Dry gauze, ABD pad and wrap. Change Daily. Re-consult wound care Nurse for wound deterioration or wound changes.
[2025-05-31 15:28] VITALS: BP 132/69; PULSE 71; RESP 16; TEMP 36.4; O2SAT 97
== END 2025-05-31 15:30 | disposition skilled nursing facility (03) | DRG 317 ==
LOC: HO.ED 05-15 00:57 → HO.EDOVER 05-15 01:14 → HO.IMC 05-15 01:18 → HO.S3 05-29 10:19
PROVIDERS: Family Medicine; Nurse Practitioner Acute Care; Physician Assistant Medical; Surgery; Admitting Provider Hospitalist; Emergency Provider Internal Medicine; PCP Internal Medicine; Visit Provider Hospitalist
PROC: 0KBW0ZZ Excision of Left Foot Muscle, Open Approach (ICD-10-PCS; principal; 2025-05-21 13:10)
DX: E11.69 Type 2 diabetes mellitus with other specified complication (principal); M86.172 Other acute osteomyelitis, left ankle and foot; J96.01 Acute respiratory failure with hypoxia; I50.21 Acute systolic (congestive) heart failure; E11.621 Type 2 diabetes mellitus with foot ulcer; L97.426 Non-pressure chronic ulcer of left heel and midfoot with bone involvement without evidence of necrosis; I42.9 Cardiomyopathy, unspecified; L03.116 Cellulitis of left lower limb; E11.52 Type 2 diabetes mellitus with diabetic peripheral angiopathy with gangrene; B95.4 Other streptococcus as the cause of diseases classified elsewhere; B95.61 Methicillin susceptible Staphylococcus aureus infection as the cause of diseases classified elsewhere; E11.628 Type 2 diabetes mellitus with other skin complications; D50.9 Iron deficiency anemia, unspecified; F11.20 Opioid dependence, uncomplicated; F17.210 Nicotine dependence, cigarettes, uncomplicated; Z71.6 Tobacco abuse counseling; I11.0 Hypertensive heart disease with heart failure; Z89.511 Acquired absence of right leg below knee; Z79.899 Other long term (current) drug therapy
CPT/HCPCS: 36415; 36573; 71045; 71275; 73630; 80048; 80053; 80202; 82565; 82803; 82947; 83605; 83880; 85025; 85027; 85610; 85730; 86850; 86900; 86901; 86923; 87040; 87077; 87147; 87186; 87205; 88304; 88311; 93005; 93306; 93351; 99285; C1751; J0690; J1171; J1250; J1650; J1939; J2003; J2543; J2704; J2795; J3010; J3373; J3374; J7120; P9016; Q9957; Q9967

== ENCOUNTER → 2025-05-15 00:01 | Outpatient (BNV) | payer OTHER, SELFPAY | PROVIDERS: Admitting Provider Hospitalist; Emergency Provider Internal Medicine; PCP Internal Medicine; Visit Provider Radiology Diagnostic Radiology | DX: J90 Pleural effusion, not elsewhere classified (principal); R06.02 Shortness of breath; M86.272 Subacute osteomyelitis, left ankle and foot | CPT/HCPCS: 71045; 71275; 73630 ==

== ENCOUNTER 2025-05-15 00:22 | Outpatient (BNV) | payer OTHER, SELFPAY | END 2025-05-17 07:00 | PROVIDERS: Admitting Provider Hospitalist; Emergency Provider Internal Medicine; PCP Internal Medicine; Visit Provider Internal Medicine Cardiovascular Disease | DX: I50.20 Unspecified systolic (congestive) heart failure (principal); I27.20 Pulmonary hypertension, unspecified; I34.0 Nonrheumatic mitral (valve) insufficiency; I51.7 Cardiomegaly | CPT/HCPCS: 93306 ==

== ENCOUNTER 2025-05-15 00:22 | Outpatient (BNV) | payer OTHER, SELFPAY | END 2025-05-19 09:40 | PROVIDERS: Admitting Provider Hospitalist; Emergency Provider Internal Medicine; PCP Internal Medicine | DX: R07.9 Chest pain, unspecified (principal); R94.31 Abnormal electrocardiogram [ECG] [EKG]; I49.1 Atrial premature depolarization; I49.3 Ventricular premature depolarization | CPT/HCPCS: 93016; 93018; 93350; 93352 ==

== ENCOUNTER → 2025-05-15 00:22 | Outpatient (BNV) | payer OTHER, SELFPAY | PROVIDERS: Admitting Provider Hospitalist; Emergency Provider Internal Medicine; PCP Internal Medicine | DX: E11.621 Type 2 diabetes mellitus with foot ulcer (principal); L97.525 Non-pressure chronic ulcer of other part of left foot with muscle involvement without evidence of necrosis; M86.172 Other acute osteomyelitis, left ankle and foot | CPT/HCPCS: 99222 ==

== ENCOUNTER → 2025-05-15 00:22 | Outpatient (BNV) | payer OTHER, SELFPAY | PROVIDERS: Admitting Provider Hospitalist; Emergency Provider Internal Medicine; PCP Internal Medicine; Visit Provider Internal Medicine | DX: E11.628 Type 2 diabetes mellitus with other skin complications (principal); L08.9 Local infection of the skin and subcutaneous tissue, unspecified; A41.9 Sepsis, unspecified organism | CPT/HCPCS: 99222 ==

== ENCOUNTER → 2025-05-15 00:22 | Outpatient (BNV) | payer OTHER, SELFPAY | PROVIDERS: Admitting Provider Hospitalist; Emergency Provider Internal Medicine; PCP Internal Medicine; Visit Provider Internal Medicine Cardiovascular Disease | DX: J81.0 Acute pulmonary edema (principal) | CPT/HCPCS: 93010; 99222; 99233 ==

== ENCOUNTER → 2025-05-15 00:22 | Outpatient (BNV) | payer OTHER, SELFPAY | PROVIDERS: Admitting Provider Hospitalist; Emergency Provider Internal Medicine; PCP Internal Medicine; Visit Provider Nurse Practitioner Acute Care | DX: M86.172 Other acute osteomyelitis, left ankle and foot (principal) | CPT/HCPCS: 99223; 99232; 99233; 99499 ==

== ENCOUNTER → 2025-05-15 00:22 | Outpatient (BNV) | payer OTHER, SELFPAY | PROVIDERS: Admitting Provider Hospitalist; Emergency Provider Internal Medicine; PCP Internal Medicine; Visit Provider Surgery Vascular Surgery | DX: M86.172 Other acute osteomyelitis, left ankle and foot (principal) | CPT/HCPCS: 99222; 99232 ==

== ENCOUNTER 2025-06-30 14:02 | Outpatient (AMB) | payer OTHER, SELFPAY ==
--- NOTE | 2025-06-30 14:22 | A.OFFVIS_ITS ---
Vital Signs 06/30/25 14:24 Pulse 86 Pulse Source Pulse Oximeter Pulse Oximetry (%) 99 Oxygen Delivery Method Room Air Intake Visit Reasons: [facility] reff/osteo picc end 07/02/25 Allergies furosemide (Lasix) Allergy (Intermediate, Verified 06/30/25 14:24) Hives levofloxacin (Levaquin) Allergy (Unknown, Verified 06/30/25 14:24) Gastrointestinal Upset metronidazole (Flagyl) Allergy (Unknown, Verified 06/30/25 14:24) Unknown latex Allergy (Verified 06/30/25 14:24) Rash perflutren Adverse Reaction (Verified 06/30/25 14:24) Back Pain contrast dye Allergy (Unknown, Uncoded 05/14/25 22:56) rash, hives HPI HPI [facility] reff/osteo picc end 07/02/25: Details: He is doing well. He has no complaints. [facility] Medical History Cardiomyopathy Congestive heart failure Sepsis Group A streptococcal infection Open wound Hx of hepatitis Diabetic ulcer of right foot Atrial fibrillation Hypertension Diabetes Surgical History Hx of surgical procedure (~08/06/24) 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 History of transmetatarsal amputation of foot (~09/2016) History of amputation of toe (~08/18/14) History of amputation of toe (~10/21/13) History of lipoma Family History Father History of lung cancer Mother History of diabetes mellitus Social History Household Members: None Household Members Other:: mother Housing: Apartment Housing Other:: hotel (homeless) Are you a primary customer care representative to a significant other at home: No Do you presently have visiting nurse or other home services: No Unable to assess alcohol history related to: Unknown Alcohol intake: never Patient Tobacco Use Status: Current everyday Tobacco user Tobacco use type: Cigarette Cigarettes Per Day: 4 Years Smoked: 49 Second Hand Smoke Exposure: No Substance Use Type: Crack/Cocaine Advance Directives Date on File: 04/28/24 service: No Review of Systems Const All systems reviewed & are unremarkable except as noted in HPI and below Physical Exam Vital Signs: Last Vital Signs Pulse 86 06/30/25 14:24 Pulse Ox 99 06/30/25 14:24 Oxygen Delivery Method Room Air 06/30/25 14:24 Const General: cooperative Orientation/consciousness: patient oriented x3 HEENT Head: Yes normal to inspection Mouth: Normal oral and palatal mucosa present Eyes General: appearance normal, both eyes and all related structures Pupils: Equal, round and reactive pupils present Resp Effort & Inspection: normal respiratory effort Cardio Rate: regular rate Rhythm: regular rhythm GI Palpation (GI): Soft to palpation and nontender General: Yes no CVA tenderness Back/Spine/Pelvis Back: no CVA tenderness Skin General skin exam: no rashes or lesions noted Neuro General: patient oriented x3 Cranial nerves: Yes CN's II-XII intact bilaterally and Yes Equal, round and reactive pupils present Extrem General: Yes normal to inspection Psych Appearance: grossly normal Assessment & Plan Assessment & Plan (1) Diabetic infection of left foot: Comment: This is improving. Code(s): E11.628 - Type 2 diabetes mellitus with other skin complications; L08.9 - Local infection of the skin and subcutaneous tissue, unspecified Category: Medical Plan: D/C PICC line. Follow vascular. Orders: Orders IR cvc remove any age 0806/30/25 E11.628 - Type 2 diabetes mellitus with other skin complications, L08.9 - Local infection of the skin and subcutaneous tissue, unspecified Coding Level of Care Code Est Pt Level 3 (40270) Diagnoses Diabetic infection of left foot E11.628; L08.9
[2025-06-30 14:24] VITALS: PULSE 86; O2SAT 99
== END 2025-06-30 14:28 | disposition home or self-care (01) ==
PROVIDERS: PCP Internal Medicine; Visit Provider Internal Medicine
DX: E11.628 Type 2 diabetes mellitus with other skin complications (principal); L08.9 Local infection of the skin and subcutaneous tissue, unspecified
CPT/HCPCS: 99213

== ENCOUNTER → 2025-06-30 14:02 | Outpatient (BNVA) | payer OTHER, SELFPAY | PROVIDERS: PCP Internal Medicine; Visit Provider Internal Medicine | DX: Z45.2 Encounter for adjustment and management of vascular access device (principal); E11.628 Type 2 diabetes mellitus with other skin complications; L08.9 Local infection of the skin and subcutaneous tissue, unspecified; Z59.01 Sheltered homelessness | CPT/HCPCS: 99212 ==